=== PATIENT | male | born 1975 | race Caucasian/White ===

== ENCOUNTER → 2024-02-03 | Outpatient (CLI) | payer MEDICAID, SELFPAY ==
--- NOTE | 2024-02-03 10:18 | MRI_ITS ---
STUDY: MRI RIGHT KNEE REASON FOR EXAM: Male, 48 years old. Right knee pain for 6 months. TECHNIQUE: Standardized fat and water weighted pulse sequences were obtained in all 3 orthogonal planes. COMPARISON: None. FINDINGS: There is a well-defined lobulated bone lesion in the epiphysis/metaphysis of the lateral tibial plateau, with fairly homogeneous intermediate T1 and high T2 signal, overall measuring 4.1 cm AP, 5.7 cm transverse, and 4.9 cm craniocaudad. There is cortical thinning of the posterolateral aspect of the tibial metaphysis, but no definite cortical breakthrough or pathologic fracture. Normal medial meniscus. Normal hyaline cartilage of the medial femorotibial compartment. Normal medial femoral condyle and tibial plateau. Normal medial collateral ligamentous complex (MCL). Normal distal semimembranosus, gracilis and semitendinosus tendons. Normal lateral meniscus. Normal hyaline cartilage of the lateral femorotibial compartment. Normal lateral femoral condyle. Normal proximal tibiofibular articulation. Normal lateral collateral (fibular) ligament. Normal popliteus tendon. Normal biceps femoris tendon. Normal anterior cruciate ligament (ACL). Normal posterior cruciate ligament (PCL). Normal congruent patellofemoral articulation. Normal hyaline cartilage of the patellofemoral compartment. Normal medial and lateral patellar retinaculum. Normal quadriceps tendon. Normal patellar tendon. Normal Hoffa''s fat pad. There is a tiny joint effusion. There is a tiny popliteal cyst. There is minimal subcutaneous soft tissue edema along the anterior aspect of the knee. MRI/Lower Ext Joint Only (Routine) IMPRESSION: Nonspecific 4.1 x 5.7 x 4.9 cm well-defined lobulated bone lesion in the epiphysis/metaphysis of the lateral tibial plateau. Cortical thinning, but no definite cortical breakthrough or pathologic fracture. The differential diagnosis includes but is not limited to: Giant cell tumor, chondromyxoid fibroma, chondrosarcoma, osteosarcoma, and metastasis/multiple myeloma. Biopsy/excision would be required to establish the definitive histological diagnosis. Tiny joint effusion with a tiny popliteal cyst. Minimal subcutaneous soft tissue edema along the anterior aspect of the knee. No discrete meniscal tear or acute ligamentous injury. Electronically Signed: Niles Rehman MD at 13:49 EDT ,
== END | disposition home or self-care (01) ==
PROVIDERS: PCP Family Medicine; Referring Provider Family Medicine; Visit Provider Family Medicine
DX: M25.561 Pain in right knee (principal)
CPT/HCPCS: 73721

== ENCOUNTER 2024-02-09 18:13 | Emergency (ER) | payer MEDICAID, SELFPAY ==
[2024-02-09 18:13] VITALS: BP 118/80; PULSE 77; RESP 18; TEMP 36.1; O2SAT 95
[2024-02-09 18:15] VITALS: BMI 33.8
--- NOTE | 2024-02-09 19:08 | CT_ITS ---
INDICATION: LUQ pain EXAMINATION: CT Abdomen And Pelvis W/ Contrast Injection TECHNIQUE: Helically acquired images were obtained of the abdomen and pelvis after IV contrast. A radiation dose optimization technique was used for this scan. IV Contrast dosage and agent: IV 100mL [id number] Oral contrast: None. COMPARISON: None. FINDINGS: Visualized lung bases: Unremarkable Liver: 1.2 cm pulmonary nodule in the right lung base. Gallbladder: Unremarkable Spleen: Unremarkable Pancreas: Unremarkable Adrenal Glands: Unremarkable Kidneys: Unremarkable Vasculature: Moderate aortoiliac atherosclerotic disease. GI Tract: Scattered colonic diverticula. Circumferential wall thickening of several loops of small bowel. Lymphadenopathy: None Peritoneum: No ascites. Bladder: Unremarkable Reproductive organs: Unremarkable Bones/Soft tissues: There are diffuse degenerative changes of the spine. Age-indeterminate mild compression fracture of L1. CT/Abdomen/Pelvis W IV Cont ONLY IMPRESSION: Findings suspicious for infectious versus inflammatory enterocolitis. 1.2 cm pulmonary nodule in the right lung base. Recommend follow-up chest CT in 3 months, PET/CT and/or biopsy. Age-indeterminate mild compression fracture of L1. Electronically Signed: Zain Arevalo MD at 20:25 EDT ,
--- NOTE | 2024-02-09 19:08 | EDS_ITS ---
HPI History of Present Illness Chief Complaint: Abd Pain Informant: patient and mental health staff Narrative Narrative: 48-year-old male from [facility] presenting to the emergency room with left upper abdominal pain. Patient states symptoms began this morning. It is worse with touch and movement. He had a bowel movement last night. He denies any urinary symptoms or fever. He notes a chronic cough from smoking. He denies any known trauma. He has been eating normally but missed his last meal because he did not want to eat something that would maybe make the pain worse. He believes he feels a lump in the area that hurts. [facility] Medical History (Updated 02/09/24 @ 20:[address] Nav Amanda DO) Ataxic gait PVD (peripheral vascular disease) COPD (chronic obstructive pulmonary disease) Epilepsy Schizoaffective disorder CVA (cerebral vascular accident) TIA (transient ischemic attack) Alcohol abuse Hyperlipidemia Major depression Anxiety HTN (hypertension) Encephalopathy Dementia associated with alcoholism Home Medications ?Medication ?Instructions ?Recorded ?Last Taken ?Type ondansetron 4 mg disintegrating 4 mg PO Q6H PRN PRN Nausea #15 tabs 02/09/24 Unknown Rx tablet Allergy/AdvReac Type Severity Reaction Status Date / Time No Known Allergies Allergy Verified 02/09/24 18:15 Social History Smoking Status: Current every day smoker tobacco type: cigarettes ROS ROS ED Constitutional Constitutional ED: Denies chills, fever(s) or weight loss Eyes Eyes: Denies change in vision or diplopia ENT ENT ED: Denies ear pain, rhinorrhea or sore throat Cardiovascular Cardiovascular: Denies chest pain, orthopnea, palpitations or racing heartbeat Respiratory/Chest Respiratory/Chest: Reports other Details: Chronic cough no change ; Denies dyspnea or orthopnea Gastrointestinal Gastrointestinal: Reports abdominal pain; Denies constipation, diarrhea, nausea or vomiting Genitourinary Genitourinary ED: Denies dysuria, hematuria or urinary frequency Musculoskeletal Musculoskeletal: Denies arthralgias or myalgias Integumentary Denies abscess or rash Neurologic Neurologic: Denies headache(s) or weakness Psychiatric Psychiatric: Denies anxiety, depression, suicidal ideation or suicidal thoughts Endocrine Endocrinology: Denies polydipsia, polyphagia or polyuria Allergic/Immunologic Allergic/Immunologic ED: Denies mouth swelling, tongue swelling or urticaria EXAM Physical Exam Const Vital Signs: 02/09/24 18:13 02/09/24 20:13 Temperature 97 F L Temperature Source Temporal Pulse Rate 77 69 Respiratory Rate 18 18 Blood Pressure 118/80 142/79 H Blood Pressure Mean 92 100 Pulse Ox 95 96 Oxygen Delivery Method Room Air Room Air Positive well nourished and well developed General Appearance ED: well developed HEENT Reports normocephalic, head/scalp atraumatic and moist mucous membranes Eyes PERRL and EOMs intact bilaterally Neck no lymphadenopathy, supple and no JVD Chest Wall Chest Narrative: Patient is tender to palpation not in the left upper quadrant of the abdomen but more over the lower lateral ribs on the left side. I do not appreciate ecchymosis or rash. No crepitance or subcutaneous emphysema. Resp normal respiratory effort and clear to auscultation bilaterally Cardio regular rate, regular rhythm and no murmurs GI normal to inspection, nondistended, normoactive bowel sounds and non-tender Palpation: soft Back/Spine no CVA tenderness and normal ROM Extremity normal to inspection General Extremety ED: Negative for edema General Extremity: Negative for edema Neuro oriented x3 and CN's II-XII intact bilaterally Sensorium / Orientation: alert Motor Exam: strength 5/5 throughout Psych mental status grossly normal Mood & Affect: Negative for depressed or tearful Skin no rashes or lesions noted and no wounds MDM MDM MDM Narrative Medical decision making narrative: Differential diagnosis would include but not limited to pneumonia splenic infarct renal infarct rib injury rib colitis gastroenteritis White count 13.4 hemoglobin 15.2 and a platelet count of 369. Creatinine 1.03 BUN is [address] of the abdomen/pelvis was and some bowel. I do not see anything obvious to fully explain his pain. He can write for some Zofran should he develop vomiting. He may be experiencing diarrhea given the loops of small bowel. History & Record Review Discussion w/independent historian: Patient and Other (long-term staff) Lab Data Attestation: I reviewed the patient's lab results. Labs: Laboratory Results - last 24 hr 02/09/24 18:45 WBC 13.4 H RBC 4.88 Hgb 15.2 Hct 46.3 MCV 94.9 H MCH 31.1 MCHC 32.8 RDW Std Deviation 45.7 H RDW Coeff of Naveed 13.0 Plt Count 369 MPV 10.6 Immature Gran % (Auto) 0.600 Neut % (Auto) 64.2 Lymph % (Auto) 22.5 [place] % (Auto) 9.8 Eos % (Auto) 2.5 Baso % (Auto) 0.4 Absolute Neuts (auto) 8.6 H Absolute Lymphs (auto) 3.02 Nucleated RBC % 0 Sodium 139 Potassium 4.1 Chloride 106 Carbon Dioxide 24.0 Anion Gap 9 BUN 16 Creatinine 1.03 Estim Creat Clear Calc 86.50 Est GFR (MDRD) Af Amer 98 Est GFR (MDRD) Non-Af 81 BUN/Creatinine Ratio 15.5 Glucose 96 Calcium 9.5 Radiography Diagnostic Testing: Clinical Impression(s) from Imaging Studies Abdomen/Pelvis CT 02/09/24 19:08 IMPRESSION: Findings suspicious for infectious versus inflammatory enterocolitis. 1.2 cm pulmonary nodule in the right lung base. Recommend follow-up chest CT in 3 months, PET/CT and/or biopsy. Age-indeterminate mild compression fracture of L1. Electronically Signed: Zain Arevalo MD at 20:25 EDT , Discharge Plan Triage Chief Complaint: Abd Pain ED Provider: Nav Amanda Dx/Rx/DC Orders Clinical Impression: Abdominal pain Instructions: ED Gastroenteritis, Viral (Adult) Prescriptions: New ondansetron 4 mg tablet,disintegrating 4 mg PO Q6H PRN PRN (Reason: Nausea) Qty: 15 0RF Primary Care Provider: All Ryder Referrals: All yRder MD [Primary Care Provider] - 3-5 Days if not improving Print Language: Austrian Disposition Disposition: Home, Self Care
[2024-02-09 19:35] LABS: Absolute Lymphocyte Count 3.02 X10^3/uL (0.83-4.51); Absolute Neutrophil Count 8.6 X10^3/uL (2.0-7.7); Basophil# 0.06 X10^3/uL; Basophil% 0.4 % (0-1); Eosinophil# 0.34 X10^3/uL; Eosinophils% 2.5 % (0-5); Hematocrit 46.3 % (40-54); Hemoglobin 15.2 g/dL (13.0-16.5); Lymphocyte # 3.02 X10^3/ul (0.83-4.51); Lymphocyte % 22.5 % (19-41); Mean Corp Hgb Conc 32.8 g/dL (32-36); Mean Corpuscular Hgb 31.1 pg (27.0-32.0); Mean Corpuscular Volume 94.9 fL (80-94); Mean Platelet Vol. 10.6 fl (6.2-12.0); Monocyte# 1.31 X10^3/uL; Monocyte% 9.8 % (0-10); NRBC Flagged by Analyzer 0 % (0-5); Neutrophil # 8.62 X10^3/uL (2.7-7.7); Neutrophil % 64.2 % (47-70); Platelet Count 369 K/mm3 (150-450); RBC Distribution Width SD 45.7 fl (35.1-43.9); Red Blood Count 4.88 M/mm3 (4.6-6.2); White Blood Count 13.4 K/mm3 (4.4-11.0)
[2024-02-09 19:40] LABS: Anion Gap 9 (5-15); BUN 16 mg/dL (7-18); BUN/Creat Ratio 15.5 RATIO (10-20); Calcium,Total 9.5 mg/dL (8.5-10.1); Chloride 106 mmol/L (98-107); Creatinine, Serum 1.03 mg/dL (0.70-1.30); EST Glomerular Filtration Rate 81 mL/min (>60); Est Glom Filt Rate - Afr Amer 98 mL/min (>60); Glucose 96 mg/dL (74-106); Potassium 4.1 mmol/L (3.5-5.1); Sodium Level 139 mmol/L (136-145)
[2024-02-09 20:13] VITALS: BP 142/79; PULSE 69; RESP 18; O2SAT 96
[2024-02-09 20:46] LABS: Mucous, Urine 0 SEEN /hpf (<or=2+); Red Blood Cells-Urine 0 SEEN /hpf (0-5); Squamous Epithelial Cells - UA 0 SEEN /hpf (0-5); White Blood Cells 0 SEEN /hpf (0-5)
[2024-02-09 20:59] VITALS: BP 142/79; PULSE 69; RESP 16; TEMP 36.5; O2SAT 96
[2024-02-09 21:02] LABS: Color, Urine Yellow (Yellow); Glucose, Dipstick Normal (Normal); Ketone-Dipstick Negative (Negative); Leukocyte Esterase-Dipstick Negative /ul (Negative); Nitrite-Dipstick Negative (Negative); Occult Blood-Urine Negative /ul (Negative); Protein-Dipstick Negative (Negative); Urine Bilirubin Dipstick Negative (Negative); Urine Clarity Sl. Cloudy (Clear); Urine Urobilinogen Normal (Normal)
[2024-02-09 21:20] LABS: Amorphous Sediment 2+; Bacteria 1+ /hpf (None Seen)
[2024-02-09 22:00] VITALS: BP 141/83; PULSE 73; RESP 16; O2SAT 93
[2024-02-10] VITALS: BP 138/77; PULSE 66; RESP 16; O2SAT 98
== END 2024-02-10 00:56 | disposition home or self-care (01) ==
PROVIDERS: Emergency Provider Emergency Medicine; PCP Family Medicine; Visit Provider Emergency Medicine
DX: R10.12 Left upper quadrant pain (principal); J44.9 Chronic obstructive pulmonary disease, unspecified; J41.0 Simple chronic bronchitis; R91.1 Solitary pulmonary nodule; K63.89 Other specified diseases of intestine; F17.210 Nicotine dependence, cigarettes, uncomplicated
CPT/HCPCS: 74177; 80048; 81001; 85025; 99283; Q9967; A4216

== ENCOUNTER → 2024-05-01 | Outpatient (CLI) | payer MEDICARE, MEDICAID, SELFPAY | END | disposition home or self-care (01) | PROVIDERS: PCP Family Medicine; Referring Provider Family Medicine; Visit Provider Family Medicine | DX: R91.1 Solitary pulmonary nodule (principal) | CPT/HCPCS: 78815; A9552 ==

== ENCOUNTER → 2024-11-07 | Outpatient (CLI) | payer MEDICARE, MEDICAID, SELFPAY ==
--- NOTE | 2024-11-07 06:51 | CT_ITS ---
PROCEDURE: CHEST WITHOUT CONTRAST 11/07/2024 REASON FOR EXAM: LUNG NODULE TECHNIQUE: Chest CT without contrast. Coronal and Sagittal reconstruction series were provided. One or more dose reduction techniques were used (e.g., Automated exposure control, adjustment of the mA and/or kV according to patient size, use of iterative reconstruction technique RADIATION DOSE SUMMARY: CTDlvol: 13.64 mGy DLP: 497.5 mGycm COMPARISON: Prior CT scan of the abdomen and pelvis dated February 09, 2024. FINDINGS: Hardware: None Lymph nodes: Small benign-appearing bilateral axillary lymph nodes. Small benign-appearing mediastinal lymph nodes. Heart and Vasculature: The heart is not enlarged. Atherosclerotic calcifications of the thoracic aorta. Thoracic aorta and pulmonary arteries have normal contours; noncontrast technique limits evaluation. Coronary Artery Calcifications: Present Lungs and Airways: There is a 1.2 cm well-defined nodule in the posterior aspect of the right lower lobe as seen on axial image number 127. This is unchanged as compared to prior CT scan of the abdomen and pelvis. Minimal linear scarring in the anterior aspect of the lingular segment of the left upper lobe. Pleura: No pleural effusion. Upper Abdomen: 1.4 cm hypodense nodule in the crux of the left adrenal gland suggestive of a small adrenal adenoma. This is unchanged. Bones: Degenerative changes of the thoracic spine. CT/Chest without Contrast IMPRESSION: Coronary artery calcification (CAC) is is present Stable 1.2 cm well-defined noncalcified nodule in the posterior aspect of the r ight lower lobe as described. Stable 1.4 cm hypodense nodule in the crux of the left adrenal gland suggestive of a small adenoma. Reading Location: [place] [id number]
--- OUTSIDE RECORDS SUMMARY | 2024-11-07 06:54 | XMS RPT_ITS | CCD ---
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 0.5mg/3ml (DUONEB) nebulizer soln 3 mL alginic acid 200 mg / calcium carbonate 80 mg / magnesium trisilicate 20 mg / sodium bicarbonate 70 mg oral tablet (1 source) Start: 04-26-2020 take 1000 mg by mouth every four hours as needed for gastroesophageal reflux disease 1,000 mg, Oral, EVERY 4 HOURS PRN, Heartburn, Starting 04/26/20 at 1125, Until Discontinued amitriptyline hydrochloride 75 mg oral tablet (20 sources) Tricyclic Antidepressant Start: 05-26-2021 End: 07-05-2021 take 75 mg by mouth once daily 75 mg, Oral, NIGHTLY, First dose on Tue06/24/21 at 2200, Until Discontinued Start: 10-31-2020 take 1 tablet by jael once daily amitriptyline (ELAVIL) 75 MG tablet Indications: Insomnia, unspecified type TAKE 1 TABLET BY MOUTH NIGHTLY. 30 tablet 6 10/31/2020 Active Start: 09-28-2020 amitriptyline (ELAVIL) tablet 75 mg Start: 03-20-2020 End: 09-27-2020 take 75 mg by mouth once daily 75 mg, Oral, NIGHTLY, F irst dose on 09/20/20 at 0115, Until Discontinued Start: 10-25-2019 take 1 tablet by jael th once daily amitriptyline (ELAVIL) 75 MG tablet Indications: Insomnia, unspecified type Take 1 tablet by mouth nightly. 30 tablet 6 10/25/2019 Active Start: 03-29-2019 take 1 tablet by jael th once daily amitriptyline (ELAVIL) 75 MG tablet Indications: Insomnia, unspecified type Take 1 tablet by mouth nightly. 30 tablet 6 03/29/2019 Active atorvastatin 80 mg oral tablet (20 sources) HMG-CoA Reductase Inhibitor Start: 06-19-2024 End: 06-21-2024 take 80 mg by mouth once daily 80 mg, Oral, Daily, First dose on Tue06/19/24 at 2100 Start: 06-24-2021 End: 07-05-2021 take 80 mg by mouth once daily 80 mg, Oral, NIGHTLY, F irst dose on Tue06/24/21 at 2200, Until Discontinued Start: 05-15-2019 End: 09-27-2020 take 80 mg by mouth once daily 80 mg, Oral, NIGHTLY, F irst dose on Tue02/17/21 at 0041, Until Discontinued Start: 05-14-2019 End: 05-15-2019 atorvastatin (LIPITOR) table t 40 mg bacitracin zinc 0.5 unt/mg t opical ointment (1 source) Start: 05-01-2020 End: 05-01-2020 bacitracin ointment 1 packet Start: 05-01-2020 End: 05-01-2020 bacitracin ointment 1 packet calcium carbonate 600 mg / cholecalciferol 0.01 mg oral tablet (1 source) Vitamin D Start: 09-21-2020 End: 09-27-2020 Calcium carbonate-vitamin D 600-400 MG-UNIT 1 tablet calcium chloride 0.001 meq/ml / glucose 50 mg/ml / potassium chloride 0.004 meq/ml / sodium chloride 0.103 meq/ml / sodium lactate 0.028 meq/ml injectable solution (1 source) Start: 06-28-2021 End: 06-28-2021 Intravenous, at 50 mL/hr, CONTINUOUS, Starting on Tue06/28/21 at 0745, Until Tue06/28/21 at 1153 calcium chloride 0.0014 meq/ml / potassium chloride 0.004 meq/ml / sodium chloride 0.103 meq/ml / sodium lactate 0.028 meq/ml injectable solution (2 sources) Start: 06-29-2021 End: 07-05-2021 Intravenous, at 100 mL/hr, CONTINUOUS, Starting on Tue06/29/21 at 0745, Until Tue07/05/21 at 0338 Start: 09-26-2020 End: 09-28-2020 lactated ringers infusion ceFAZolin 2000 mg injection (3 sources) Cephalosporin Antibacterial Start: 06-20-2024 End: 06-21-2024 take 2000 mg intravenously every eight hours 2,000 mg, IntraVENous, Administer over 30 Minutes, Every 8 hours, First dose on Tue06/20/24 at 1415, For 24 hours, Phase II/On Unit, premix bag, Suspected Indication (Select all that apply): Surgical Prophylaxis Start: 06-20-2024 End: 06-20-2024 IntraVENous, As needed, Star ting on Tue06/20/24 at 1013, Anesthesia Intraprocedure clopidogrel 75 mg oral tablet (20 sources) [id number] Platelet Inhibitor Start: 05-18-2019 End: 07-05-2021 take 75 mg by mouth once daily 75 mg, Oral, DAILY, First dose on Maye 06/25/21 at 0900, Until Discontinued 1 ml dexamethasone phosphate 10 mg/ml injection (1 source) Corticosteroid Start: 06-20-2024 End: 06-20-2024 IntraVENous, As needed, Starting on Tue06/20/24 at 1000, Anesthesia Intraprocedure dexAMETHasone-bupivac rogers-epinephrine (TAP) syringe (1 source) Start: 06-20-2024 End: 06-20-2024 Injection, Once PRN Procedure, Starting on Tue06/20/24 at 0950, For 1 dose, Anesthesia Intraprocedure dexmedeTOMIDine HCl in NaCl (Precedex) injection (1 source) Start: 06-20-2024 End: 06-20-2024 IntraVENous, As needed, Starting on Tue06/20/24 at 1000, Anesthesia Intraprocedure docusate sodium 50 mg / sennosides, shelter 8.6 mg oral tablet (1 source) Start: 06-24-2021 End: 07-05-2021 take 1 tablet by mouth twice daily 1 tablet, Oral, TWO TIMES A DAY, First dose on Tue06/24/21 at 1929, Until Discontinued Drug or medicament (substance) (6 sources) Start: 06-29-2021 End: 07-05-2021 4 oz, Oral, 3 TIMES PER DAY (DIETARY), First dose on Tue06/29/21 at 1400, Until Discontinued Flavor not specified Start: 06-26-2021 End: 06-27-2021 2,000 mg, Intravenous, Admin ister over 30 Minutes, First dose (after last modification) on Tue06/26/21 at 1800, EVERY 12 HOURS SCHEDULED (2 times per day), 6 doses, Last dose on Tue06/29/21 at 0600, Indications: Pneumonia, Septic Shock Start: 06-26-2021 End: 07-05-2021 1 each, Other, DAILY PRN, Fo r electrolyte abnormalities, Starting on Tue06/26/21 at 0902, Until Tue07/05/21 at 0338 For Potassium level <=3.9 or Magnesium level <=2.0, please use Order Set #100 to order medications and repeat labs. Start: 06-25-2021 End: 06-26-2021 1,000 mg, Intravenous, Admin ister over 1 Hours, EVERY 12 HOURS SCHEDULED (2 times per day), First dose (after last modification) on Tue06/25/21 at 1800, Until Discontinued, Indications: Pneumonia Start: 06-25-2021 End: 06-26-2021 2,000 mg, Intravenous, Admin ister over 30 Minutes, First dose (after last reorder) on Tue06/25/21 at 0600, EVERY 8 HOURS SCHEDULED (3 times per day), Until Discontinued, Indications: Pneumonia, Septic Shock Start: 06-24-2021 End: 06-24-2021 2,000 mg, Intravenous, Admin ister over 30 Minutes, On Tue06/24/21 at 1842, ONCE, 1 dose, Indications: Septic Shock 2 ml enalaprilat 1.25 mg/ml injection (1 source) Angiotensin Converting Enzyme Inhibitor Start: 09-27-2020 End: 09-28-2020 enalaprilat (VASOTEC) injection 2.5 mg enalaprilat (VASOTEC) 2.5 mg in dextrose 5% 50 mL IVPB (1 source) Start: 09-27-2020 End: 09-27-2020 enalaprilat (VASOTEC) 2.5 mg in dextrose 5% 50 mL IVPB ergocalciferol 96596 unt oral capsule (6 sources) Provitamin D2 Compound Start: 05-17-2019 50,000 Units, Oral, EVERY 7 DAYS, First dose on Tue05/17/19 at 0900, Until Discontinued Start: 12-05-2018 Vitamin D, Erg ocalciferol, 45068 units CAPS Indications: Vitamin D deficiency Take 1 capsule by mouth every 7 days. 12 capsule 0 12/05/2018 Active 10 ml esmolol hydrochloride 10 mg/ml injection (1 source) beta-Adrenergic Richard Start: 06-20-2024 End: 06-20-2024 IntraVENous, As needed, Starting on Tue06/20/24 at 1000, Anesthesia Intraprocedure 20 ml etomidate 2 mg/ml injection (1 source) General Anesthetic Start: 06-24-2021 End: 06-24-2021 take 1 dose intravenously once 20 mg, IV Push, ONCE, 1 dose, On Tue06/24/21 at 1753 Caution: This medication looks and/or sounds like another medication. fenofibrate 160 mg oral tablet (10 sources) Peroxisome Proliferator Receptor alpha Agonist Start: 06-19-2024 End: 06-21-2024 160 mg, Oral, Daily, First dose on Tue06/19/24 at 1500, Substituted for Fenofibrate (Non-Formulary Dose). take 1 tablet by mouth once matthew y fenofibrate (Tricor) 145 MG tablet Take 145 mg by mouth daily. Active folic acid 0.4 mg oral tablet (20 sources) Start: 06-27-2021 End: 07-05-2021 take 400 ug by mouth once daily 400 mcg, Oral, DAILY, First dose (after last modification) on Tue07/01/21 at 0900, Until Discontinued Start: 06-25-2021 End: 06-26-2021 take 1 mg by mouth once daily 1 mg, Oral, DAILY, First dose on Tue06/25/21 at 0900, Until Discontinued Start: 09-20-2020 End: 09-27-2020 take 1000 ug by mouth once daily 1,000 mcg, Oral, DAILY, First dose on Tue09/20/20 at 0900, Until Discontinued Start: 04-26-2020 End: 04-30-2020 folic acid (FOLVITE) tablet 400 mcg Start: 05-14-2019 take 1000 ug by mout h once daily 1,000 mcg, Oral, DAILY, First dose on Tue05/14/19 at 1115, Until Discontinued Start: 01-30-2019 End: 09-30-2020 take 1 mg by mouth once daily 1 mg, Oral, DAILY, First dose on Tue02/21/21 at 0900, Until Discontinued folic acid (VITAMIN B9) 1 mg in sodium chloride 0.9 % 10 mL IV syringe (2 sources) Start: 11-16-2020 End: 11-19-2020 1 mg, Intravenous, Administe r over 1 Minutes, First dose on Tue11/16/20 at 0900, DAILY, 5 doses, Last dose on Tue11/20/20 at 0900 Administer over at least 1 minute Start: 09-27-2020 End: 09-28-2020 folic acid (VITAMIN B9) 1 mg in sodium chloride 0.9 % 10 mL IV syringe gabapentin 300 mg oral capsule (20 sources) Anti-epileptic Agent Start: 06-19-2024 End: 06-21-2024 take 300 mg by mouth once daily 300 mg, Oral, Nightly, First dose on Tue06/19/24 at 2100 Start: 05-26-2021 End: 07-04-2021 Start: 12-02-2020 take 300 mg by mouth three times daily 300 mg, Oral, 3 TIMES DAILY, First dose on Tue02/17/21 at 0041, Until Discontinued Start: 11-16-2020 take 300 mg by mouth once matthew y 300 mg, Oral, DAILY, First dose on Tue11/16/20 at 0900, Until Discontinued Start: 09-20-2020 End: 09-27-2020 take 300 mg by mouth once daily 300 mg, Oral, DAILY, F irst dose on 09/20/20 at 0900, Until Discontinued Start: 09-04-2020 take 1 capsule by [facility] three times daily gabapentin (NEURONTIN) 300 MG capsule Indications: Lumbar radicular pain TAKE 1 CAPSULE BY MOUTH 3 TIMES DAILY. 90 capsule 2 09/04/2020 Active Start: 10-25-2019 End: 05-01-2020 take 300 mg by mouth three times daily 300 mg, Oral, 3 TIMES DAILY, First dose on 04/26/20 at 1400, Until Discontinued Start: 05-01-2019 End: 07-30-2019 take 1 capsule by mouth three times daily gabapentin (NEURONTIN) 300 MG capsule Indications: Lumbar radicular pain TAKE 1 CAPSULE BY MOUTH 3 TIMES DAILY FOR 90 DAYS. 90 capsule 2 05/01/2019 07/30/2019 Active 150 ml glucose 50 mg/ml injection (4 sources) Start: 06-27-2021 End: 07-05-2021 Intravenous, at 75 mL/hr, CONTINUOUS PRN, [facility] with KCl for the duration of the KCl infusion., Starting on Maye 07/02/21 at 0753, Until 07/05/21 at 0338 [facility] with KCl for the duration of the KCl infusion. Start: 06-27-2021 End: 06-27-2021 50 mL, Intravenous, ONCE, 1 dose, On 06/27/21 at 0830 High Alert: Significant harm may occur when used in error. 250 ml glucose 50 mg/ml / sodium chloride 4.5 mg/ml injection (1 source) Start: 02-16-2021 End: 02-20-2021 dextrose 5 %-0.45 % sodium chloride infusion 1 ml heparin sodium, porcine 5000 unt/ml prefilled syringe (4 sources) Unfractionated Heparin, Anti-coagulant Start: 06-24-2021 End: 07-05-2021 inject 1 dose by subcutaneous injection twice daily 5,000 Units, Subcutaneous, EVERY 12 HOURS SCHEDULED (2 times per day), First dose on Tue06/24/21 at 1929, Until Discontinued Start: 05-14-2019 End: 05-14-2019 Heparin (porcine) injection 3,726 Units Start: 05-14-2019 End: 05-14-2019 Heparin (porcine) injection 3,726 Units Start: 05-14-2019 End: 05-15-2019 heparin infusion 50 units/mL in dextrose 5% 1 ml hydrALAZINE hydrochloride 20 mg/ml injection (2 sources) Arteriolar Vasodilator Start: 06-26-2021 End: 07-05-2021 10 mg, Intravenous, EVERY 6 HOURS PRN, High Blood Pressure (specify):, SBP > 160, Starting on Tue06/26/21 at 1812, Until 07/05/21 at 0338 Caution: This medication looks and/or sounds like another medication. Start: 11-16-2020 hydrALAZINE (A PRESOLINE) injection 10 mg hydroCHLOROthiazide 12.5 mg / lisinopril 20 mg oral tablet (15 sources) Thiazide Diuretic, Angiotensin Converting Enzyme Inhibitor Start: 05-27-2021 End: 07-04-2021 Start: 06-11-2020 take 2 tablets by mouth once daily lisinopril-hydrochlorothiazide (PRINZIDE,ZESTORETIC) 20-12.5 MG per tablet Indications: Essential hypertension TAKE 2 TABLETS BY MOUTH DAILY. 60 tablet 2 01/06/2021 Active Start: 11-29-2019 take 2 tablets by mouth once daily lisinopril-hydrochlorothiazide (PRINZIDE,ZESTORETIC) 20-12.5 MG per tablet Indications: Essential hypertension TAKE 2 TABLETS BY MOUTH DAILY. 60 tablet 6 11/29/2019 Active Start: 10-25-2019 take 2 tablets by mouth once daily lisinopril-hydrochlorothiazide (PRINZIDE,ZESTORETIC) 20-12.5 MG per tablet Indications: Essential hypertension Take 2 tablets by mouth daily. 60 tablet 6 10/25/2019 Active Start: 03-29-2019 take 2 tablets by mouth once daily lisinopril-hydrochlorothiazide (PRINZIDE,ZESTORETIC) 20-12.5 MG per tablet Indications: Essential hypertension Take 2 tablets by mouth daily. 60 tablet 6 03/29/2019 Active 1 ml HYDROmorphone hydrochloride 2 mg/ml cartridge (1 source) Opioid Agonist Start: 06-20-2024 End: 06-20-2024 IntraVENous, As needed, Starting on Tue06/20/24 at 1041, Anesthesia Intraprocedure HYDROmorphone (Dilaudid) injection 0.25 mg (2 sources) Start: 06-19-2024 End: 06-21-2024 take 0.25 mg intravenously every four hours as needed for pain HYDROmorphone (Dilaudid) injection 0.25 mg hydrOXYzine hydrochloride 25 mg oral tablet (12 sources) Antihistamine Start: 06-27-2021 End: 07-05-2021 50 mg, Oral, EVERY 6 HOURS PRN, Anxiety, for MILD anxiety- patient reported anxiety 1-4, Starting on 06/27/21 at 0804, Until 07/05/21 at 0338 Start: 12-28-2020 50 mg, Oral, E VERY 6 HOURS PRN, Anxiety, for MILD anxiety- patient reported anxiety 1-4, Starting on 12/28/20 at 2209, Until Discontinued Start: 11-16-2020 take 50 mg by mouth every six hours as needed for anxiety 50 mg, Oral, EVERY 6 HOURS PRN, Anxiety, Starting on 11/16/20 at 0130, Until Discontinued Start: 09-20-2020 hydrOXYzine (A TARAX) tablet 50 mg Start: 04-30-2020 End: 07-04-2021 Start: 04-26-2020 hydrOXYzine (A TARAX) tablet 50 mg ketamine 10 mg/ml injectable solution (1 source) General Anesthetic Start: 06-20-2024 End: 06-20-2024 IntraVENous, As needed, Starting on Tue06/20/24 at 1000, Anesthesia Intraprocedure 1 ml ketorolac tromethamine 15 mg/ml cartridge (1 source) Nonsteroidal Anti-inflammatory Drug, Cyclooxygenase Inhibitor Start: 06-20-2024 End: 06-20-2024 IntraVENous, As needed, Starting on Tue06/20/24 at 1213, Anesthesia Intraprocedure levETIRAcetam 750 mg oral tablet (19 sources) Start: 06-19-2024 End: 06-21-2024 take 750 mg by mouth twice daily 750 mg, Oral, 2 times daily, First dose on Tue06/19/24 at 2100 Start: 06-24-2021 End: 06-26-2021 take 750 mg by mouth twice daily 750 mg, Oral, TWO TIMES A DAY, First dose on Tue06/24/21 at 1929, Until Discontinued Caution: Do not crush or chew due to taste. Start: 05-27-2021 End: 07-05-2021 take 1 dose by mouth twice daily 750 mg, Oral, EVERY 12 HOURS SCHEDULED (2 times per day), First dose on Tue06/30/21 at 1800, Until Discontinued Caution: Do not crush or chew due to taste. Start: 10-21-2020 take 500 mg by mouth twice daily 500 mg, Oral, TWO TIMES A DAY, First dose on Tue02/17/21 at 0600, Until Discontinued Caution: Do not crush or chew due to taste. 10 ml lidocaine hydrochloride 20 mg/ml injection (4 sources) Antiarrhythmic, Amide Local Anesthetic Start: 06-20-2024 End: 06-20-2024 IntraVENous, As needed, Starting on Tue06/20/24 at 1000, Anesthesia Intraprocedure Start: 06-19-2024 End: 06-21-2024 apply 1 dose topically once daily, then apply 1 dose topically every twelve hours 1 patch, Topical, Administer over 12 Hours, Daily, First dose on Tue06/19/24 at 1515, Apply patch to affected area. Patch may remain in place for up to 12 hours in any 24 hour period. Start: 09-20-2020 Lidocaine Visc ous HCl (XYLOCAINE) 2 % mouth solution 5 mL lisinopril 20 mg oral tablet (6 sources) Angiotensin Converting Enzyme Inhibitor Start: 06-27-2021 End: 07-05-2021 take 20 mg by mouth once daily before lunch 20 mg, Oral, DAILY BEFORE LUNCH, First dose on Tue06/27/21 at 1100, Until Discontinued Caution: This medication looks and/or sounds like another medication. Start: 12-29-2020 lisinopril (HI INIVIL,ZESTRIL) tablet 40 mg Start: 11-16-2020 lisinopril (HI INIVIL,ZESTRIL) tablet 40 mg Start: 09-28-2020 lisinopril (HI INIVIL,ZESTRIL) tablet 20 mg Start: 04-26-2020 lisinopril (HI INIVIL,ZESTRIL) tablet 40 mg Start: 05-14-2019 lisinopril (HI INIVIL,ZESTRIL) tablet 40 mg LOCM iohexol (OMNIPAQUE 350MG/ML) injection 75 mL (1 source) Start: 05-14-2019 End: 05-14-2019 LOCM iohexol (OMNIPAQUE 350MG/ML) injection 75 mL 1 ml LORazepam 2 mg/ml injection (17 sources) Benzodiazepine Start: 06-28-2021 End: 06-28-2021 take 1 dose intravenously once 1 mg, IV Push, ONCE, 1 dose, On 06/28/21 at 1815 Caution: This medication looks and/or sounds like another medication.&nbsp ; For IV use: dilute in equal volume of NaCl 0.9% or Dextrose 5% Start: 02-16-2021 End: 02-16-2021 LORazepam injection 2-4 mg Start: 02-16-2021 LORazepam (ATI VAN) tablet 2-4 mg Start: 12-28-2020 LORazepam (ATI VAN) tablet 2-4 mg Start: 11-16-2020 End: 11-16-2020 LORazepam injection 1 mg Start: 11-16-2020 LORazepam (ATI VAN) tablet 2-4 mg Start: 09-20-2020 LORazepam inje ction 2 mg Start: 09-20-2020 LORazepam (ATI VAN) tablet 2-4 mg Start: 04-27-2020 End: 04-27-2020 LORazepam injection 2 mg LORazepam (Ativa n) 1 MG tablet Take 1 mg by mouth. Active m.v.i. adult 10 mL, thiamine (VITAMIN B1) 100 mg, folic acid (VITAMIN B9) 1 mg in sodium chloride 0.9 % 1,000 mL infusion (BANANA BAG) (6 sources) Start: 02-17-2021 End: 02-16-2021 m.v.i. adult 10 mL, thiamine (VITAMIN B1) 100 mg, folic acid (VITAMIN B9) 1 mg in sodium chloride 0.9 % 1,000 mL infusion (BANANA BAG) Start: 02-16-2021 End: 02-20-2021 m.v.i. adult 10 mL, thiamine (VITAMIN B1) 100 mg, folic acid (VITAMIN B9) 1 mg in sodium chloride 0.9 % 1,000 mL infusion (BANANA BAG) Start: 12-31-2020 End: 12-31-2020 m.v.i. adult 10 mL, thiamine (VITAMIN B1) 100 mg, folic acid (VITAMIN B9) 1 mg in sodium chloride 0.9 % 1,000 mL infusion (BANANA BAG) Start: 11-16-2020 End: 11-16-2020 m.v.i. adult 10 mL, thiamine (VITAMIN B1) 100 mg, folic acid (VITAMIN B9) 1 mg in sodium chloride 0.9 % 1,000 mL infusion (BANANA BAG) Start: 09-20-2020 End: 09-20-2020 m.v.i. adult 10 mL, thiamine (VITAMIN B1) 100 mg, folic acid (VITAMIN B9) 1 mg in sodium chloride 0.9 % 1,000 mL infusion (BANANA BAG) Start: 09-19-2020 End: 09-19-2020 m.v.i. adult 10 mL, thiamine (VITAMIN B1) 100 mg, folic acid (VITAMIN B9) 1 mg in sodium chloride 0.9 % 1,000 mL infusion (BANANA BAG) magnesium oxide 400 mg oral tablet (20 sources) Start: 05-27-2021 End: 07-05-2021 take 400 mg by mouth once daily 400 mg, Oral, DAILY, First dose on 06/27/21 at 0900, Until Discontinued Start: 02-22-2021 End: 02-24-2021 Magnesium Oxide (MAG-OX) tab let 800 mg Start: 02-22-2021 End: 02-22-2021 Magnesium Oxide (MAG-OX) tab let 400 mg Start: 09-30-2020 End: 02-22-2021 Magnesium Oxide (MAG-OX) tab let 400 mg magnesium oxide (Mag-Ox) 400 mg tablet 400 mg daily. Active magnesium oxide (Mag-Ox) 400 mg tablet 400 mg daily. Suspended 50 ml magnesium sulfate 40 mg/ml injection (20 sources) Start: 07-02-2021 End: 07-03-2021 2 g, Intravenous, Administer over 60 Minutes, On Tue07/03/21 at 0830, ONCE, 1 dose If magnesium 1.5-2.0 Repeat magnesium level in AM Start: 06-30-2021 End: 06-30-2021 2 g, Intravenous, Administer over 60 Minutes, On Tue06/30/21 at 0745, ONCE, 1 dose Start: 06-27-2021 End: 06-28-2021 2 g, Intravenous, Administer over 60 Minutes, On [place] 06/28/21 at 0700, ONCE, 1 dose If magnesium 1.5-2.0 Repeat magnesium level in AM Start: 06-25-2021 End: 06-25-2021 2 g, Intravenous, Administer over 60 Minutes, On Maye 06/25/21 at 0600, ONCE, 1 dose If magnesium 1.5-2.0 Repeat magnesium level in AM Start: 02-18-2021 End: 02-20-2021 Magnesium Sulfate 2g/50ml IV PB 2 g Start: 01-05-2021 End: 01-05-2021 Magnesium Sulfate 2g/50ml IV PB 2 g Start: 01-03-2021 End: 01-03-2021 Magnesium Sulfate 2g/50ml IV PB 2 g Start: 01-01-2021 End: 01-01-2021 Magnesium Sulfate 2g/50ml IV PB 2 g Start: 12-28-2020 End: 12-29-2020 Magnesium Sulfate 2g/50ml IV PB 2 g Start: 09-30-2020 End: 09-30-2020 Magnesium Sulfate 2g/50ml IV PB 2 g Start: 09-20-2020 End: 09-20-2020 Magnesium Sulfate 2g/50ml IV PB 2 g Start: 05-14-2019 End: 05-14-2019 Magnesium Sulfate 2g/50ml IV PB 2 g methocarbamol 500 mg oral tablet (5 sources) Muscle Relaxant Start: 06-19-2024 End: 06-21-2024 take 1 tablet by mouth every eight hours as needed 1,000 mg, Oral, Every 8 hours PRN, muscle spasms, Starting on Tue06/19/24 at 1505 Start: 11-16-2020 methocarbamol (ROBAXIN) tablet 750 mg Start: 09-20-2020 methocarbamol (ROBAXIN) tablet 750 mg Start: 04-26-2020 methocarbamol (ROBAXIN) tablet 750 mg metoprolol tartrate 25 mg oral tablet (20 sources) beta-Adrenergic Richard Start: 05-26-2021 End: 07-05-2021 take 25 mg by mouth twice daily 25 mg, Oral, TWO TIMES A DAY, First dose on 06/27/21 at 0845, Until Discontinued Caution: This medication looks and/or sounds like another medication. Start: 12-02-2020 take 25 mg by mouth twice daily 25 mg, Oral, TWO TIMES A DAY, First dose on Tue02/17/21 at 0115, Until Discontinued Caution: This medication looks and/or sounds like another medication. Start: 11-16-2020 take 25 mg by mouth twice daily 25 mg, Oral, TWO TIMES A DAY, First dose on Tue11/16/20 at 0600, Until Discontinued Caution: This medication looks and/or sounds like another medication. Start: 09-27-2020 End: 09-28-2020 metoprolol (LOPRESSOR) injec tion 2.5 mg Start: 09-04-2020 End: 09-27-2020 take 1 tablet by mouth twice daily Metoprolol Tartrate (LOPRESSOR) 25 MG tablet Indications: Essential hypertension TAKE 1 TABLET BY MOUTH TWO TIMES A DAY. 60 tablet 2 09/04/2020 Active Start: 03-20-2020 take 1 tablet by jael th twice daily Metoprolol Tartrate (LOPRESSOR) 25 MG tablet Indications: Essential hypertension TAKE 1 TABLET BY MOUTH TWO TIMES A DAY. 60 tablet 2 03/20/2020 Active Start: 10-25-2019 take 1 tablet by jael th twice daily Metoprolol Tartrate (LOPRESSOR) 25 MG tablet Indications: Essential hypertension Take 1 tablet by mouth two times a day. 60 tablet 2 10/25/2019 Active Start: 05-14-2019 take 1 tablet by jael twice daily Metoprolol Tartrate (LOPRESSOR) 25 MG tablet Take 1 tablet by mouth two times a day. 60 tablet 2 05/16/2019 Active 2 ml midazolam 1 mg/ml injection (1 source) Benzodiazepine Start: 06-20-2024 End: 06-20-2024 IntraVENous, Once PRN Procedure, Starting on Tue06/20/24 at 0950, For 1 dose, Anesthesia Intraprocedure 1 ml naloxone hydrochloride 0.4 mg/ml injection (2 sources) Opioid Antagonist Start: 06-19-2024 End: 06-21-2024 0.4 mg, IntraVENous, Every 5 min PRN, opioid reversal, respiratory depression, Starting on Tue06/19/24 at 1319, +++ For RR naproxen 500 mg oral tablet (1 source) Nonsteroidal Anti-inflammatory Drug Start: 01-20-2021 End: 02-22-2021 take 1 tablet by mouth twice daily naproxen (NAPROSYN) 500 MG tablet Take 1 tablet by mouth two times a day. 15 tablet 0 01/20/2021 02/22/2021 Discontinued (Discontinued during inpatient admission) nitroglycerin 0.4 mg sublingual tablet (3 sources) Nitrate Vasodilator Start: 12-28-2020 End: 12-28-2020 nitroGLYCERIN (NITROSTAT) 0.4 MG SL tablet 0.4 mg Start: 11-14-2019 End: 11-14-2019 nitroGLYCERIN (NITROSTAT) 0. 4 MG SL tablet 0.4 mg Start: 05-14-2019 End: 05-15-2019 nitroGLYCERIN infusion 200 m cg/mL 2 ml ondansetron 2 mg/ml injection (4 sources) Serotonin-3 Receptor Antagonist Start: 06-24-2021 End: 07-05-2021 take 4 mg intravenously every six hours as needed for nausea 4 mg, IV Push, EVERY 6 HOURS PRN, Nausea, Vomiting, Starting on Tue06/24/21 at 1858, Until 07/05/21 at 0338 Caution: This medication looks and/or sounds like another medication. Start: 12-28-2020 take 4 mg intravenou sly every six hours as needed for nausea 4 mg, IV Push, EVERY 6 HOURS PRN, Nausea, Vomiting, Starting on 12/28/20 at 2210, Until Discontinued Caution: This medication looks and/or sounds like another medication. Start: 11-14-2019 End: 11-14-2019 Ondansetron (ZOFRAN-ODT) disintegrating tablet 4 mg Start: 05-14-2019 ondansetron hc l (ZOFRAN) injection 4 mg ondansetron ODT (Zofran-ODT) disintegrating tablet 4 mg (2 sources) Start: 06-19-2024 End: 06-21-2024 take 1 tablet by mouth every eight hours as needed for nausea and vomiting ondansetron ODT (Zofran-ODT) disintegrating tablet 4 mg oxyCODONE (2 sources) Opioid Agonist Start: 06-19-2024 End: 06-21-2024 take 1 tablet by mouth every four hours as needed for pain oxyCODONE (Roxicodone) immediate release tablet 5 mg pantoprazole 40 mg injection (20 sources) Proton Pump Inhibitor Start: 06-24-2021 End: 06-30-2021 40 mg, IV Push, First dose on Tue06/24/21 at 1929, EVERY EVENING, Until Discontinued Reconstitute each vial of pantoprazole with 10 ml of 0.9% NaCl to a final concentration of approximately 4 mg/ml. Give each 40 mg vial over at least 2 minutes (no more than 20 mg/minute) Kiran nstitute each vial of pantoprazole with 10 ml of 0.9% NaCl to a final concentration of approximately 4 mg/ml. Give each 40 mg vial over at least 2 minutes (no more than 20 mg/minute) Start: 04-28-2021 End: 07-05-2021 take 40 mg by mouth once daily in the evening 40 mg, Oral, EVERY EVENING, First dose on Tue06/30/21 at 1700, Until Discontinued Caution: Do not crush or chew. Start: 01-27-2021 take 40 mg by mouth once daily before dinner 40 mg, Oral, DAILY BEFORE DINNER, First dose on Tue02/17/21 at 0115, Until Discontinued Caution: Do not crush or chew. Start: 10-31-2020 take 40 mg by mouth once daily 40 mg, Oral, DAILY, First dose on Tue12/29/20 at 0900, Until Discontinued Caution: Do not crush or chew. Start: 09-27-2020 End: 09-28-2020 Pantoprazole (PROTONIX) inje ction 40 mg Start: 08-07-2020 End: 09-27-2020 take 40 mg by mouth once daily 40 mg, Oral, DAILY, First dose on Tue09/20/20 at 0900, Until Discontinued Caution: Do not crush or chew. Start: 02-27-2020 take 1 tablet by [facility] once daily pantoprazole (PROTONIX) 40 MG tablet Indications: Gastroesophageal reflux disease without esophagitis Take 1 tablet by mouth daily. 30 tablet 3 02/27/2020 Active Start: 10-25-2019 take 1 tablet by jael th once daily pantoprazole (PROTONIX) 40 MG tablet Indications: Gastroesophageal reflux disease without esophagitis Take 1 tablet by mouth daily. 30 tablet 2 10/25/2019 Active Start: 05-18-2019 take 1 tablet by jael th once daily pantoprazole (PROTONIX) 40 MG tablet Take 1 tablet by mouth daily. 30 tablet 2 05/18/2019 Active Start: 05-14-2019 take 40 mg by mouth once daily before dinner 40 mg, Oral, DAILY BEFORE DINNER, First dose on 05/14/19 at 1700, Until Discontinued polyethylene glycol 3350 64023 mg powder for oral solution (7 sources) Osmotic Laxative Start: 06-19-2024 End: 06-21-2024 take 17 g by mouth every twenty-four hours as needed for constipation 17 g, Oral, Daily PRN, constipation, Starting on Tue06/19/24 at 1310, 1st line for treatment of constipation - give scheduled if no bowel movement in past 24 hours. Start: 06-28-2021 End: 07-05-2021 17 g, Oral, TWO TIMES A DAY, First dose on 06/28/21 at 1800, Until Discontinued Start: 02-17-2021 polyethylene g lycol 3350 (GLYCOLAX, MIRALAX) packet 17 g Start: 11-16-2020 17 g, Oral, DA RENALDO PRN, Constipation, constipation, Starting on 11/16/20 at 0131, Until Discontinued This is a maintenance laxative, begin for prevention of constipation. Start: 09-20-2020 17 g, Oral, DA RENALDO PRN, Constipation, constipation, Starting 09/20/20 at 0025, Until Discontinued This is a maintenance laxative, begin for prevention of constipation. Start: 04-26-2020 17 g, Oral, DA RENALDO PRN, Constipation, constipation, Starting 04/26/20 at 1125, Until Discontinued This is a maintenance laxative, begin for prevention of constipation. 100 ml potassium chloride 0.2 meq/ml injection (20 sources) Start: 07-02-2021 End: 07-03-2021 20 mEq, Intravenous, Adminis ter over 2 Hours, On Tue07/03/21 at 0830, ONCE, 1 dose Patient must be on monitor/telemetry. Give with D5W at [facility]-site (see separate dextrose 5% PRN order). If burning/discomfort occurs, may consider slowing KCl infusion rate and/or increasing the D5W rate - consult physician. Start: 06-30-2021 End: 06-30-2021 take 1 dose by mouth once 40 mEq, Oral, ONCE, 1 dose, On Tue06/30/21 at 0745 Caution: Do not crush or chew. Exception - Oral Solution: dissolve dose in 120 mL water, let sit for 2 minutes, then stir for 30 seconds to ensure all is dissolved and mixed and have patient drink. To ensure administration add 30 mL to cup, swirl, and have patient drink. Start: 06-27-2021 End: 06-27-2021 20 mEq, Intravenous, Adminis ter over 2 Hours, On 06/27/21 at 0230, ONCE, 1 dose If potassium 3.7-3.9. Repeat potassium in AM Start: 06-25-2021 End: 06-25-2021 take 1 dose by mouth once 40 mEq, Oral, ONCE, 1 dose, On Maye 06/25/21 at 1300 Caution: Do not crush or chew. Exception - Oral Solution: dissolve dose in 120 mL water, let sit for 2 minutes, then stir for 30 seconds to ensure all is dissolved and mixed and have patient drink. To ensure administration add 30 mL to cup, swirl, and have patient drink. Start: 06-25-2021 End: 06-25-2021 take 1 dose by mouth once 40 mEq, Oral, ONCE, 1 dose, On Maye 06/25/21 at 0630 Mix in 4-5 oz water or beverage - Take with food Mix in 4-5 oz water or beverage - Take with food Start: 06-25-2021 End: 06-27-2021 20 mEq, Intravenous, Adminis ter over 2 Hours, First dose on Tue06/26/21 at 2000, EVERY 2 HOURS SCHEDULED, 3 doses, Last dose on Tue06/27/21 at 0000 If potassium 3.1-3.3 Infuse 20mEq KCL in 100mL over two hours; repeat times two for a total of 60 mEq Repeat potassium in AM Start: 02-22-2021 End: 02-22-2021 potassium chloride SA (K-DUR ,KLOR-CON M20) CR tablet 20 mEq Start: 02-19-2021 End: 02-20-2021 potassium chloride SA (K-DUR ,KLOR-CON M20) CR tablet 20 mEq Start: 01-04-2021 End: 01-04-2021 potassium chloride SA (K-DUR ,KLOR-CON M20) CR tablet 20 mEq Start: 12-28-2020 End: 12-28-2020 potassium chloride SA (K-DUR ,KLOR-CON M20) CR tablet 40 mEq Start: 09-30-2020 End: 02-22-2021 take 2 tablets by mouth once daily potassium chloride SA (K-DUR,KLOR-CON M20) 20 MEQ tablet Take 2 tablets by mouth daily. 30 tablet 0 02/22/2021 02/22/2021 Discontinued (Reorder) Start: 09-30-2020 End: 09-30-2020 potassium chloride SA (K-DUR ,KLOR-CON M20) CR tablet 40 mEq Start: 09-29-2020 potassium chlo ride SA (K-DUR,KLOR-CON M20) CR tablet 40 mEq Start: 09-21-2020 End: 09-27-2020 potassium chloride SA (K-DUR ,KLOR-CON M20) CR tablet 40 mEq Start: 09-20-2020 End: 09-20-2020 potassium chloride SA (K-DUR ,KLOR-CON M20) CR tablet 40 mEq Start: 05-16-2019 End: 05-16-2019 potassium chloride SA (K-DUR ,KLOR-CON M20) CR tablet 20 mEq 1000 ml potassium chloride 0.04 meq/ml / sodium chloride 9 mg/ml injection (1 source) Start: 06-25-2021 End: 06-27-2021 Intravenous, at 50 mL/hr, CONTINUOUS, Starting on Maye 06/25/21 at 1130, Until 06/27/21 at 0848 potassium chloride 20 mEq, lidocaine 1% (XYLOCAINE) 8 mL in dextrose 5% 250 mL IVPB (2 sources) Start: 01-01-2021 End: 01-01-2021 potassium chloride 20 mEq, lidocaine 1% (XYLOCAINE) 8 mL in dextrose 5% 250 mL IVPB Start: 09-25-2020 End: 09-25-2020 potassium chloride 20 mEq, l idocaine 1% (XYLOCAINE) 8 mL in dextrose 5% 250 mL IVPB potassium chloride 40 mEq, lidocaine 1% (XYLOCAINE) 8 mL in dextrose 5% 250 mL IVPB (11 sources) Start: 02-18-2021 End: 02-18-2021 potassium chloride 40 mEq, lidocaine 1% (XYLOCAINE) 8 mL in dextrose 5% 250 mL IVPB Start: 02-17-2021 End: 02-17-2021 potassium chloride 40 mEq, l idocaine 1% (XYLOCAINE) 8 mL in dextrose 5% 250 mL IVPB Start: 02-16-2021 End: 02-17-2021 potassium chloride 40 mEq, l idocaine 1% (XYLOCAINE) 8 mL in dextrose 5% 250 mL IVPB Start: 01-03-2021 End: 01-03-2021 potassium chloride 40 mEq, l idocaine 1% (XYLOCAINE) 8 mL in dextrose 5% 250 mL IVPB Start: 12-29-2020 End: 12-29-2020 potassium chloride 40 mEq, l idocaine 1% (XYLOCAINE) 8 mL in dextrose 5% 250 mL IVPB Start: 11-17-2020 End: 11-17-2020 potassium chloride 40 mEq, l idocaine 1% (XYLOCAINE) 8 mL in dextrose 5% 250 mL IVPB Start: 11-16-2020 End: 11-16-2020 potassium chloride 40 mEq, l idocaine 1% (XYLOCAINE) 8 mL in dextrose 5% 250 mL IVPB Start: 09-29-2020 End: 09-29-2020 potassium chloride 40 mEq, l idocaine 1% (XYLOCAINE) 8 mL in dextrose 5% 250 mL IVPB Start: 09-27-2020 End: 09-27-2020 potassium chloride 40 mEq, l idocaine 1% (XYLOCAINE) 8 mL in dextrose 5% 250 mL IVPB Start: 09-21-2020 End: 09-21-2020 potassium chloride 40 mEq, l idocaine 1% (XYLOCAINE) 8 mL in dextrose 5% 250 mL IVPB Start: 09-19-2020 End: 09-20-2020 potassium chloride 40 mEq, l idocaine 1% (XYLOCAINE) 8 mL in dextrose 5% 250 mL IVPB 20 ml propofol 10 mg/ml injection (4 sources) General Anesthetic Start: 06-20-2024 End: 06-20-2024 IntraVENous, As needed, Starting on Tue06/20/24 at 1000, Anesthesia Intraprocedure Start: 06-24-2021 End: 06-26-2021 5-50 mcg/kg/min 54.7 kg (1.6 41-16.41 mL/hr, rounded to 1.6-16.4 mL/hr), at 1.6-16.4 mL/hr, Intravenous, CONTINUOUS, Starting on Maye 06/25/21 at 1300 Start propofol at 5 mcg/kg/min. Increase every 5 minutes by 5 mcg/kg/min until desired effect is achieved. Maximum dose is 50 mcg/kg/min. - WEANING propofol : If the infusion rate has not been increased in 4 hours, decrease the drip rate by 5 mcg/kg/min every 4 hours until discontinued. Shake well before use. Protect from light. Start: 06-24-2021 End: 06-24-2021 Starting on Tue06/24/21 at 1 757, 1 dose Created by cabinet override Shake well before use. Protect from light. purified protein derivative of tuberculin 50 unt/ml injectable solution (9 sources) Tuberculosis Skin Test, Skin Test Antigen Start: 07-04-2021 End: 07-04-2021 tuberculin (Tube rsol) 5 UNIT/0.1ML injection Inject 5 Units into the skin Once. Active rifAXIMin 550 mg oral tablet (1 source) Rifamycin Antibacterial Start: 09-20-2020 End: 09-27-2020 rifAXIMin (XIFAXAN) tablet 550 mg rocuronium bromide 10 mg/ml injectable solution (2 sources) Nondepolarizing Neuromuscular Richard Start: 06-20-2024 End: 06-20-2024 IntraVENous, As needed, Starting on Tue06/20/24 at 1000, Anesthesia Intraprocedure Start: 06-24-2021 End: 06-24-2021 take 1 dose intravenously once 100 mg, IV Push, ONCE, 1 dose, On Tue06/24/21 at 1754 High Alert: Significant harm may occur when used in error. sildenafil 100 mg oral table t (15 sources) Phosphodiesterase 5 Inhibitor Start: 02-26-2020 End: 07-04-2021 Start: 10-25-2019 take 1 tablet by jael th once daily as needed sildenafil (VIAGRA) 100 MG tablet Indications: Erectile dysfunction, unspecified erectile dysfunction type Take 1 tablet by mouth daily as needed. 30 tablet 6 10/25/2019 Active Start: 03-29-2019 take 1 tablet by jael th once daily as needed sildenafil (VIAGRA) 100 MG tablet Indications: Erectile dysfunction, unspecified erectile dysfunction type Take 1 tablet by mouth daily as needed. 30 tablet 6 03/29/2019 Active simvastatin 20 mg oral tablet (1 source) HMG-CoA Reductase Inhibitor Start: 03-29-2019 End: 05-16-2019 take 1 tablet by mouth once daily simvastatin (ZOCOR) 20 MG tablet Indications: Mixed hyperlipidemia Take 1 tablet by mouth nightly. 30 tablet 6 03/29/2019 05/16/2019 Discontinued (Discontinued during inpatient admission) 5 ml sodium chloride 9 mg/ml injection (13 sources) Start: 06-19-2024 End: 06-21-2024 take 5-40 mL intravenously every twelve hours 5-40 mL, IntraVENous, Every 12 hours, First dose on Tue06/19/24 at 1315, For Line Patency: Peripheral IV = 5 mL; Midline or Central Line = 10 mL/lumen. If following IV push medication, administer flush at same rate as the IV push. Flush volume is determined by type of infusion therapy being given. For non-viscous solutions use: Peripheral IV = 5 mL Midline or Central Line = 10 mL/lumen For viscous solutions (i.e. blood components, parenteral nutrition, contrast media, or after obtaining blood sample) use: Peripheral IV = 10 mL Midline or Central Line = 20 mL/lumen Start: 06-19-2024 End: 06-21-2024 take 100 mL intravenously every hour as needed, then take 20 mL intravenously every hour as needed 5-250 mL/hr, IntraVENous, PRN, if patient receiving piggyback infusions and maintenance fluids are not ordered OR KVO fluids to protect IV site / prevent frequent line interruptions / long duration, Starting on Tue06/19/24 at 1310, For piggyback infusion, administer at same rate as piggyback for a total of 25 mL. Enter 25 mL into dose field and piggyback rate into rate field of order. If piggyback is infusing at a rate less than 100 mL/hr, enter 25 mL into dose field and 100 mL/hr into rate field of order. For KVO fluids, enter rate of 20 mL/hr or less into rate field of order. Start: 06-19-2024 End: 06-21-2024 5-40 mL, IntraVENous, PRN, l ine care, After every IV line use, Starting on Tue06/19/24 at 1310, For Line Patency: Peripheral IV = 5 mL; Midline or Central Line = 10 mL/lumen. If following IV push medication, administer flush at same rate as the IV push. Flush volume is determined by type of infusion therapy being given. For non-viscous solutions use: Peripheral IV = 5 mL Midline or Central Line = 10 mL/lumen For viscous solutions (i.e. blood components, parenteral nutrition, contrast media, or after obtaining blood sample) use: Peripheral IV = 10 mL Midline or Central Line = 20 mL/lumen Start: 06-24-2021 End: 06-25-2021 Intravenous, at 125 mL/hr, CONTINUOUS, Starting on Tue06/24/21 at 2140, Until Tue06/25/21 at 1056 Start: 06-24-2021 End: 06-24-2021 2,109 mL (30 mL/kg 70.3 kg), Intravenous, Administer over 1.01 Hours, On Tue06/24/21 at 1832, ONCE, 1 dose Warmed fluids Start: 12-29-2020 End: 01-05-2021 0.9% NaCl infusion Start: 12-28-2020 End: 12-28-2020 sodium chloride 0.9% bolus 0 .9 % solution 1,000 mL Start: 11-16-2020 End: 11-17-2020 0.9% NaCl infusion Start: 05-15-2019 End: 05-16-2019 0.9% NaCl infusion 2 ml sugammadex 100 mg/ml injection (1 source) Start: 06-20-2024 End: 06-20-2024 IntraVENous, As needed, Starting on Tue06/20/24 at 1223, Anesthesia Intraprocedure thiamine 100 mg oral tablet (20 sources) Start: 06-23-2021 End: 07-05-2021 take 100 mg by mouth once daily 100 mg, Oral, DAILY, First dose on Tue07/01/21 at 0900, Until Discontinued Start: 12-30-2020 take 100 mg by mouth once matthew y 100 mg, Oral, DAILY, First dose on Tue02/21/21 at 0900, Until Discontinued Start: 09-04-2020 End: 09-29-2020 take 1 tablet by mouth once daily Thiamine HCl (B-1) 100 MG TABS Indications: Alcohol use TAKE 1 TABLET BY MOUTH DAILY. 30 tablet 3 09/04/2020 Active Start: 02-27-2020 End: 04-30-2020 take 1 tablet by mouth once daily Thiamine HCl (VITAMIN B-1) 100 MG tablet Indications: Alcohol use Take 1 tablet by mouth daily. 30 tablet 3 02/27/2020 Active Start: 10-25-2019 take 1 tablet by jael once daily Thiamine HCl (VITAMIN B-1) 100 MG tablet Indications: Alcohol use Take 1 tablet by mouth daily. 30 tablet 3 10/25/2019 Active Start: 02-22-2017 take 1 tablet by jael th once daily Thiamine HCl (VITAMIN B-1) 100 MG tablet Indications: Alcohol use Take 1 tablet by mouth daily. 30 tablet 3 02/22/2017 Active thiamine (VITAMIN B1) 100 mg in sodium chloride 0.9 % 5 mL IV syringe (1 source) Start: 11-16-2020 End: 11-19-2020 100 mg, Intravenous, at 60 mL/hr, DAILY, 5 doses, First dose on Tue11/16/20 at 0900, Last dose on Tue11/20/20 at 0900 IV syringe must be administered over at least 5 minutes. traZODone hydrochloride 50 mg oral tablet (18 sources) Serotonin Reuptake Inhibitor Start: 09-22-2020 End: 09-26-2020 traZODone (DESYREL) tablet 50 mg take 1 tablet by mouth once matthew y traZODone (Desyrel) 100 MG tablet Take 100 mg by mouth Nightly. Active divalproex sodium 250 mg delayed release oral tablet (10 sources) Mood Stabilizer, Anti-epileptic Agent Start: 06-19-2024 End: 06-21-2024 take 250 mg by mouth three times daily 250 mg, Oral, 3 times daily, First dose on Tue06/19/24 at 1545, Do not crush, chew, or split. vitamin b12 1 mg oral tablet (19 sources) Vitamin B12 Start: 02-17-2021 take 1000 ug by mouth once daily 1,000 mcg, Oral, DAILY, First dose on Tue02/17/21 at 0900, Until Discontinued Start: 07-08-2020 End: 09-27-2020 take 1000 ug by mouth once daily 1,000 mcg, Oral, DAILY, First dose on Tue12/29/20 at 0900, Until Discontinued Start: 02-27-2020 take 1 tablet by jael once daily vitamin B-12 (CYANOCOBALAMIN) 1000 MCG tablet Indications: B12 deficiency Take 1 tablet by mouth daily. 30 tablet 3 02/27/2020 Active Start: 10-25-2019 take 1 tablet by jael once daily vitamin B-12 (CYANOCOBALAMIN) 1000 MCG tablet Indications: B12 deficiency Take 1 tablet by mouth daily. 30 tablet 1 10/25/2019 Active Start: 03-08-2018 take 1 tablet by jael once daily vitamin B-12 (CYANOCOBALAMIN) 1000 MCG tablet Indications: B12 deficiency Take 1 tablet by mouth daily. 30 tablet 1 03/08/2018 Active (1 source) Start: 02-22-2019 End: 07-04-2021 (9 sources) Start: 07-02-2021 End: 07-03-2021 750 mg, Intravenous, Adminis ter over 15 Minutes, First dose on Tue07/02/21 at 0900, EVERY 12 HOURS, Until Discontinued Start: 07-02-2021 End: 07-02-2021 at 125 mL/hr, Intravenous, O NCE, 1 dose, On Tue07/02/21 at 0900 BANANA BAG Start: 07-02-2021 End: 07-02-2021 500 mg, Intravenous, Adminis ter over 60 Minutes, On Maye 07/02/21 at 0445, ONCE, 1 dose Start: 06-27-2021 End: 06-30-2021 100 mg, Intravenous, at 60 m L/hr, DAILY, 5 doses, First dose on Tue06/27/21 at 1215, Last dose on Tue07/01/21 at 0900 IV syringe must be administered over at least 5 minutes. Start: 06-26-2021 End: 06-30-2021 750 mg, Intravenous, Adminis ter over 15 Minutes, First dose on Tue06/26/21 at 1845, EVERY 12 HOURS, Until Discontinued Start: 06-26-2021 End: 06-27-2021 750 mg, Intravenous, Adminis ter over 1 Hours, EVERY 12 HOURS SCHEDULED (2 times per day), 6 doses, First dose (after last modification) on Tue06/26/21 at 1800, Last dose on Tue06/29/21 at 0600, Indications: Pneumonia Start: 06-26-2021 End: 07-05-2021 take 8-14 tablets by mouth every hour as needed, then take 2 tablets by mouth every hour as needed [Order 1 Start] Name: LORazepam (ATIVAN) tablet 2-4 mg Signed Summary: 2-4 mg, Oral, EVERY 1 HOUR PRN, Withdrawal, Starting on Tue06/26/21 at 0902, Until 07/05/21 at 0338 CIWA score 8-14 = 2mg CIWA score 15-20 = 3mg CIWA score > 20 = 4mg If patient is able to tolerate PO - give med PO; if patient unable to tolerate PO and has IV, give med IV; if patient unable to tolerate PO and has no IV, give med IM [Order 1 End] [Order 2 Start] Name: LORazepam injection 2-4 mg Signed Summary: 2-4 mg, Intramuscular, EVERY 1 HOUR PRN, Withdrawal, Starting on Tue06/26/21 at 0902, Until 07/05/21 at 0338 CIWA score 8-14 = 2mg CIWA score 15-20 = 3mg CIWA score > 20 = 4mg If patient is able to tolerate PO - give med PO; if patient unable to tolerate PO and has IV, give med IV; if patient unable to tolerate PO and has no IV, give med IM For IV use: dilute in equal volume of NaCl 0.9% or Dextrose 5% [Order 2 End] [Order 3 Start] Name: LORazepam injection 2-4 mg Signed Summary: 2-4 mg, IV Push, EVERY 1 HOUR PRN, Withdrawal, Starting on Tue06/26/21 at 0902, Until Tue07/05/21 at 0338 CIWA score 8-14 = 2mg CIWA score 15-20 = 3mg CIWA score > 20 = 4mg If patient is able to tolerate PO - give med PO; if patient unable to tolerate PO and has IV, give med IV; if patient unable to tolerate PO and has no IV, give med IM For IV use: dilute in equal volume of NaCl 0.9% or Dextrose 5% [Order 3 End] Start: 06-25-2021 End: 06-25-2021 1,250 mg, Intravenous, Admin ister over 1.5 Hours, EVERY 12 HOURS SCHEDULED (2 times per day), First dose on Tue06/25/21 at 0600, Until Discontinued, Indications: Pneumonia Start: 06-24-2021 End: 06-24-2021 1,750 mg, Intravenous, Admin ister over 2 Hours, ONCE, 1 dose, On Tue06/24/21 at 1846, Indications: Sepsis (1 source) Start: 06-26-2021 End: 07-05-2021 take 1 tablet by mouth once daily 1 tablet, Oral, DAILY, First dose on Tue06/26/21 at 0945, Until Discontinued (2 sources) Start: 06-25-2021 End: 06-27-2021 0.5-100 mcg/min (1.875-375 mL/hr, rounded to 1.9-375 mL/hr), at 1.9-375 mL/hr, Intravenous, CONTINUOUS, Starting on Tue06/25/21 at 0230 Titration may vary based upon patient sensitivity and response to medication. Start: 06-24-2021 End: 06-24-2021 0.5-100 mcg/min (1.875-375 m L/hr, rounded to 1.9-375 mL/hr), at 1.9-375 mL/hr, Intravenous, CONTINUOUS, Starting on Tue06/24/21 at 1837 Titration may vary based upon patient sensitivity and response to medication. (1 source) Start: 06-25-2021 End: 06-26-2021 360 mL, Orogastric, at 15 mL/hr, CONTINUOUS, Starting on Tue06/25/21 at 1015, Until Tue06/26/21 at 2039 Check tube feeding resdiual: Q4H If residual volume is equal to or greater than (specify) hold tube feeding X 4hrs then recheck: 400 ml Amount to rinse with? 50 mL Frequency to rinse: q4h (1 source) Start: 06-24-2021 End: 06-24-2021 100 mL, Intravenous, ONCE, 1 dose, On Tue06/24/21 at 2028, Radiology (1 source) Start: 06-24-2021 End: 06-24-2021 take 1 dose intravenously once 200 mcg, IV Push, ONCE, 1 dose, On Tue06/24/21 at 1846 Problems Active Problems Problem Classification Problem Date Documented Date Episodic/Chronic Abdominal pain (1 source) Left upper quadrant pain; Translations: [Left upper quadrant pain] Onset: 09-18-2024 Episodic Alcohol-related disorders (20 sources) Alcohol intoxication; Translations: [Alcoholic gastritis] Onset: 04-20-2016 Resolved: 04-30-2020 09-24-2017 Chronic Coronary atherosclerosis and other heart disease (5 sources) Coronary atherosclerosis; Translations: [Atherosclerotic heart disease of [place] coronary artery with unspecified angina pectoris] Onset: 12-28-2020 Chronic Diseases of white blood cells (3 sources) Leukocytosis; Translations: [Elevated white blood cell count, unspecified] Onset: 07-04-2021 Chronic Disorders of lipid metabolism (20 sources) Dyslipidemia; Translations: [Hyperlipidemia] Onset: 04-20-2016 Resolved: 04-30-2020 09-24-2017 Chronic Epilepsy; convulsions (3 sources) Seizure disorder; Translations: [Epilepsy, unspecified, not intractable, without status epilepticus] Onset: 02-17-2021 Chronic Esophageal disorders (17 sources) Gastroesophageal reflux disease without esophagitis; Translations: [Gastro-esophageal reflux disease without esophagitis] Onset: 12-28-2018 12-28-2018 Chronic Nausea and vomiting (1 source) Vomiting; Translations: [Emesis] Episodic Open wounds of extremities (1 source) Laceration of skin of hand; Translations: [Laceration of skin of left hand, initial encounter] Episodic Other circulatory disease (2 sources) Low blood pressure; Translations: [Other hypotension] Episodic Other complications of (8 sources) 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 ; Translations: [Diseases of the nervous system complicating , second trimester] 06-19-2024 Episodic Other injuries and conditions due to external causes (2 sources) Human bite - wound; Translations: [Human bite, initial encounter] Episodic Other injuries and conditions due to external causes (1 source) Abrasion AND/OR friction burn of multiple sites; Translations: [Multiple abrasions] Episodic Other injuries and conditions due to external causes (2 sources) Hypothermia; Translations: [Hypothermia, initial encounter] Episodic Other lower respiratory disease (2 sources) Solitary pulmonary nodule; Translations: [Solitary pulmonary nodule] Onset: 10-19-2024 Episodic Other non-traumatic joint disorders (1 source) Pain in right knee; Translations: [Pain in right knee] Onset: 09-18-2024 Episodic Other nutritional; endocrine; and metabolic disorders (1 source) Hypomagnesemia; Translations: [Hypomagnesemia] Chronic Residual codes; unclassified (11 sources) Tobacco user; Translations: [Tobacco abuse] Onset: 10-07-2014 12-17-2018 Chronic Residual codes; unclassified (1 source) Current drinker; Translations: [Alcohol use] Episodic Residual codes; unclassified (3 sources) At risk of disease; Translations: [Other specified personal risk factors, not elsewhere classified] 06-19-2024 Episodic Substance-related disorders (1 source) Nicotine dependence, cigarettes, uncomplicated; Translations: [Nicotine dependence, cigarettes, uncomplicated] Onset: 10-19-2024 Chronic Unclassified (1 source) Patient encounter status; Translations: [Encounter for lipid screening for cardiovascular disease] Past or Other Problems Problem Classification Problem Date Documented Date Episodic/Chronic Acute and unspecified renal failure (3 sources) Acute injury of kidney; Translations: [Acute kidney failure, unspecified] Onset: 02-17-2021 Episodic Alcohol-related disorders (6 sources) Alcohol intoxication; Translations: [Alcohol use, unspecified with intoxication, uncomplicated] Onset: 04-20-2016 09-24-2017 Episodic Coagulation and hemorrhagic disorders (5 sources) 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; Translations: [Other secondary thrombocytopenia] Onset: 04-20-2016 Episodic Coma; stupor; and brain damage (6 sources) Loss of consciousness; Translations: [Unspecified coma] Onset: 09-20-2020 Episodic Coronary atherosclerosis and other heart disease (17 sources) Patient post percutaneous transluminal coronary angioplasty; Translations: [Coronary angioplasty status] Onset: 05-15-2019 Resolved: 04-30-2020 05-15-2019 Episodic Epilepsy; convulsions (9 sources) Neurological finding; Translations: [Unspecified convulsions] Onset: 09-20-2020 Episodic Essential hypertension (17 sources) Hypertensive disorder; Translations: [Essential hypertension] Onset: 10-07-2014 Resolved: 04-30-2020 12-17-2018 Chronic Fluid and electrolyte disorders (11 sources) Hypokalemia; Translations: [Hypokalemia] Onset: 09-20-2020 Episodic Neoplasms of unspecified nature or uncertain behavior (19 sources) Neoplasm of right tibia; Translations: [Neoplasm of unspecified behavior of bone, soft tissue, and skin] Onset: 06-19-2024 06-19-2024 Episodic Nonspecific chest pain (20 sources) Acute chest pain; Translations: [Radiating chest pain] Onset: 04-19-2016 Resolved: 05-16-2019 05-16-2019 Episodic Other circulatory disease (1 source) Other hypotension; Translations: [Other hypotension] Onset: 07-04-2021 Episodic Other injuries and conditions due to external causes (1 source) Abrasion; Translations: [Abrasion] Episodic Other injuries and conditions due to external causes (1 source) Hypothermia, initial encounter; Translations: [Hypothermia, initial encounter] Onset: 07-04-2021 Episodic Other liver diseases (4 sources) High lipase level in serum; Translations: [Abnormal levels of other serum enzymes] Onset: 12-29-2020 Episodic Other nervous system disorders (15 sources) Numbness of upper limb; Translations: [Anesthesia of skin] Onset: 10-07-2014 10-07-2014 Episodic Other nervous system disorders (6 sources) Ataxia; Translations: [Ataxia, unspecified] Onset: 09-29-2020 Episodic Other non-traumatic joint disorders (15 sources) Shoulder pain; Translations: [Pain in unspecified shoulder] Onset: 10-07-2014 10-07-2014 Episodic Other screening for suspected conditions (not mental disorders or infectious disease) (3 sources) Increased lactic acid level; Translations: [Other specified abnormal findings of blood chemistry] Onset: 07-04-2021 Episodic Pneumonia (except that caused by tuberculosis or sexually transmitted disease) (16 sources) Pneumonia; Translations: [Infective pneumonia] Onset: 08-22-2017 Resolved: 05-27-2021 08-29-2017 Episodic Residual codes; unclassified (15 sources) Insomnia; Translations: [Insomnia, unspecified] Onset: 10-07-2014 10-07-2014 Episodic Residual codes; unclassified (8 sources) Hallucinations; Translations: [Hallucinations, unspecified] Onset: 04-29-2020 Resolved: 04-30-2020 04-30-2020 Episodic Residual codes; unclassified (8 sources) Tobacco user; Translations: [Tobacco use] Onset: 10-07-2014 Episodic Residual codes; unclassified (2 sources) Other specified personal risk factors, not elsewhere classified; Translations: [Other specified personal risk factors, not elsewhere classified] Onset: 07-17-2024 Episodic Respiratory failure; insufficiency; arrest (adult) (5 sources) Hypoxemic respiratory failure; Translations: [Respiratory failure, unspecified with hypoxia] Onset: 08-22-2017 Resolved: 08-29-2017 08-29-2017 Episodic Respiratory failure; insufficiency; arrest (adult) (10 sources) Hypoxemic respiratory failure; Translations: [Respiratory failure with hypoxia] Onset: 08-22-2017 Resolved: 08-29-2017 08-29-2017 Schizophrenia and other psychotic disorders (8 sources) Delusional disorder; Translations: [Delusional disorders] Onset: 04-26-2020 Resolved: 04-30-2020 04-30-2020 Chronic Results Test Name Value Interpretation Reference Range Facility Office Visiton 10-23-2024 Follow-up visit [id number] Jodi Fernandez 1975 M Date Provider Department Center 10/23/2024 [id number] HENNESSY [facility] OR None No family history on file Level of Service:35275 HI OFFICE/OUTPATIENT ESTABLISHED LOW MDM 20 MIN Reason for Visit and Comments: Follow-up [524412] - Xray right knee [facility] Progress Noteon 10-23-2024 Progress Note [facility] [address] [place] [address] [address] [place] [address] Dept: [phone] Dept Chief Complaint Patient presents with Follow-up Xray right knee SUBJECTIVE HPI Patient is a 49-year-old male who presents with his senior living aide for postoperative evaluation after open biopsy with curettage and 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 Of note, he does have a past medical history significant for epilepsy, Wernicke's encephalopathy, HTN, schizoaffective disorder, MD, TIA, PVD, COPD, depression/anxiety. He presents today in wheelchair but reports that he is able to walk with a walker for relatively long distances without significant discomfort. He does endorse occasional pain to his right knee which he localizes to the lateral proximal tibia after significant activity. He he is taking occasional Motrin for this with some relief. He denies paresthesias except over the area of the incision. He is very happy with his range of motion at this point and is very pleased with the results of his surgery so far. Patient Active Problem List Diagnosis Date Noted Neoplasm of right tibia 06/19/2024 Epilepsy complicating , antepartum, second trimester (HCC) Allergies[1] Family History[2] Medical History[3] Social History Socioeconomic History Marital status: Single Spouse name: Not on file Number of children: Not on file Years of education: Not on file Highest education level: Not on file Occupational History Not on file Tobacco Use Smoking status: Every Day Current packs/day: 0.50 Types: Cigarettes Smokeless tobacco: Not on file Vaping Use Vaping status: Never Used Substance and Sexual Activity Alcohol use: Yes Comment: once amonth Drug use: Yes Frequency: 1.0 times per week Types: Marijuana Sexual activity: Yes Other Topics Concern Not on file Social History Narrative Not on file Social Drivers of Health Financial Resource Strain: Not on file Food Insecurity: No Food Insecurity (06/21/2024) Hunger Vital Sign Worried About Running Out of Food in the Last Year: Never true Ran Out of Food in the Last Year: Never true Transportation Needs: No Transportation Needs (06/21/2024) PRAPARE - Transportation Lack of Transportation (Medical): No Lack of Transportation (Non-Medical): No Physical Activity: Not on file Stress: Not on file Social Connections: Not on file Intimate Partner Violence: Not At Risk (06/21/2024) Humiliation, Afraid, Rape, and Kick questionnaire Fear of Current or Ex-Partner: No Emotionally Abused: No Physically Abused: No Sexually Abused: No Housing Stability: Low Risk (06/21/2024) Housing Stability Vital Sign Unable to Pay for Housing in the Last Year: No Number of Times Moved in the Last Year: 0 Homeless in the Last Year: No Surgical History[4] Current Medications[5] Review of Systems Musculoskeletal: Positive for arthralgias, gait problem and myalgias. Remains in facility, amb with walker in PT in wheelchair for visit today Pain to right patella full ROM to knee All other systems reviewed and are negative. OBJECTIVE Vitals: 10/23/24 1018 BP: 113/79 BP Location: Left arm Patient Position: Sitting BP Cuff Size: Adult Pulse: 74 Weight: 72.6 kg (160 lb) Height: 1.626 m (5' 4) Physical Exam Physical Exam Vitals and nursing note reviewed. Constitutional: Appearance: Normal appearance. Cardiovascular: Rate and Rhythm: Normal rate. Pulmonary: Effort: Pulmonary effort is normal. Skin: General: Skin is warm and dry. Neurological: General: No focal deficit present. Mental Status: He is alert and oriented to person, place, and time. Psychiatric: Mood and Affect: Mood normal. Behavior: Behavior normal. Focused orthopedic examination: Patient sitting comfortably in wheelchair at the time of examination. He does have a well-healed curvilinear laterally based incision over the left knee. There is no evidence of open wound, drainage, significant erythema. There is no significant effusion to the left knee. Passive range of motion is 0-1 30, active range of motion is 0-1 30. Knee is overall ligamentously stable to varus valgus stress with solid endpoint appreciated on Nick testing. Sensation intact to light touch throughout all the dermatomal distributions of the right lower extremity. 5/5 strength to HF, KE, GSC, TA, EHL. Limb is warm and dry XRAY INTERPRETATION 2 view x-ray of the right knee was obtained today and independently reviewed, and compared with 2 view x-ray of the right knee obtained 07/17/2024. There is evidence of pmma present to the lateral proximal tibia with orthopedic hardware in place. Hardware appears well-fixed without evidence of loosening or failure. There is no lucency appreciated about the margins of the allograft. The joint is reduced, there is no ev (more content not included)... [facility] Pulmonary Visit Reporton Pulmonary Visit Report [facility] [address] [place] [address] OFFICE VISIT Date of Service: 10/05/24 MR#: [id number] Acct: [id number] Name: YONATHAN FERNANDEZ Rep #: [id number] : 1975 Provider: Dr. Duarte Infante DO Age/Sex: 49/M Location: [facility] Status: Signed Assessment and Plan Assessment and Plan (1) Lung nodule: Status: Chronic Plan: The patient has a known lung nodule measuring approximately 1.2 cm in the right lower lobe, noted on CT imaging of the abdomen and pelvis in January 2024. Subsequent PET scan completed in April 2024 was negative for viable neoplasm. At this time, given the size of the nodule coupled with the patient's ongoing tobacco dependency, recommend follow-up CT scan at this time. If the lesion is found to be enlarging, recommend CT-guided lung biopsy. (2) Nicotine dependence, cigarettes, uncomplicated: Status: Chronic Plan: I personally spent 4 minutes discussing the deleterious effects of ongoing tobacco use with the patient, including modalities which could be utilized to achieve a smoke-free lifestyle. Given that the patient is asymptomatic from a respiratory perspective, we will hold off on obtaining pulmonary function studies at this time. Orders: Orders Chest without Contrast 10/28/24 R91.1 - Solitary pulmonary nodule Smoking Cessation Today HPI HPI Comments Details: The patient is a 49-year-old male who presents to the clinic today in referral for the evaluation of a pulmonary nodule. The patient has an approximate [id number] smoking history and continues to smoke 0.25 packs of cigarettes per day. In addition to his personal smoking history, the patient did grow up in a smoking household. The patient is currently admitted to a fdc facility for rehabilitation, with tentative plans to be discharged home in the near future. 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 He currently denies the presence of shortness of breath. He denies any chest tightness, wheezing or cough. His weight and appetite have been stable. In January 2024, the patient was evaluated with CT imaging of the abdomen and pelvis due to pain. That imaging study demonstrated the presence of a 1.2 cm nodule in the right lower lobe. Accordingly, the patient was referred to undergo pet imaging, which was ultimately completed in April 2024. Nevertheless, the pet imaging study was negative for viable neoplasm. Intake Vital Signs 02/09/24 18:13 10/05/24 07:42 Height 5 ft 4 in 5 ft 4 in Weight: 174 lb BMI 29.8 BP 112/73 Blood Pressure Location Rt brachial Position Sitting Respiration 16 Pulse 74 Pulse Source Monitor Temp 98.2 F Temperature Source Temporal Artery Pulse Oximetry (%) 92 Oxygen Delivery Method room air Intake Visit Reasons: RLL Nodule Director Public Required: No DME Vendor: None Accompanied by: Caregiver Is patient in pain?: No Allergies No Known Allergies Allergy (Verified 10/05/24 10:14) Medications ???Medication ???Instructions ???Recorded ???Confirmed ???Type ondansetron 4 mg disintegrating 4 mg PO Q6H PRN PRN Nausea #15 tab s 02/09/24 Rx tablet acetaminophen 325 mg tablet 650 mg PO Q6H PRN 10/05/24 5 History (Tylenol) aspirin 81 mg tablet,delayed 81 mg PO QDAY 10/05/24 10/05/24 Hi story release (Adult Aspirin Regimen) atorvastatin 80 mg tablet 80 mg PO QDAY 10/05/24 10/05/24 Hi story carboxymethylcellulos e sodium 1 % 1 drp ophthalmic (eye) BID 10/05/24 History eye drops (Artificial Tears (carboxymethylcellulo se)) cholecalciferol (vitamin D3) 1,250 1,250 mcg PO 2XW 10/05/24 History mcg (50,000 unit) capsule divalproex 250 mg tablet,delayed 250 mg PO TID 10/05/24 10/05/24 Hi story release fenofibrate nanocrystallized 145 145 mg PO QDAY 10/05/24 10/05/24 H istory mg tablet folic acid 1 mg tablet 1 mg PO QDAY 10/05/24 10/05/24 His tory levetiracetam 750 mg tablet 750 mg PO BID 10/05/24 10/05/24 Hi story lorazepam 1 mg tablet 1 mg PO BID 10/05/24 10/05/24 Hist ory lorazepam 1 mg tablet 1 mg PO Q6H PRN 10/05/24 10/05/24 History magnesium hydroxide 400 mg/5 mL 30 ml PO QDAY PRN 10/05/24 5 History oral suspension (Milk of Magnesia) magnesium oxide 500 mg PO QDAY 10/05/24 10/05/24 H istory melatonin 3 mg tablet 6 mg PO HS PRN 10/05/24 10/05/24 H istory nicotine 10 mg inhalation cartridge 10 mg inhalation Q2H PRN PRN 10/05/24 History trazodone 100 mg tablet 100 mg PO QHS 10/05/24 10/05/24 Hi story PFSH Medical History (Updated 10/05/24 @ 11:[address] Duarte Infante, DO) Ataxic gait PVD (peripheral vascular disease) COPD (chronic obstructive pulmonary disease) Epilepsy Schizo (more content not included)... [facility] XR KNEE 1-2 VIEWS RIGHTon XR KNEE 1-2 VIEWS RIGHT Imaging Result: X-rays were obtained of the right proximal tibia shows excellent filling of the cavity no persistent giant cell tumor remains plate is well-fixed no articular cartilage breakdown although the tumor did distend up to subchondral bone in some areas. No sign of pathologic fracture or other concerning features on radiographs. [facility] XR Knee - right 1 or 2 Views on 07-18-2024 Imaging Result: X-rays were obtained of the right proximal tibia shows excellent filling of the cavity no persistent giant cell tumor remains plate is well-fixed no articular cartilage breakdown although the tumor did distend up to subchondral bone in some areas. No sign of pathologic fracture or other concerning features on radiographs. [facility] Office Visiton 07-17-2024 Follow-up visit [id number] Jodi Fernandez 1975 M Date Provider Department Center 07/17/2024 [id number] HENNESSY [facility] OR None No family history on file Level of Service:13503 HI POSTOP FOLLOW UP VISIT RELATED TO ORIGINAL PX Reason for Visit and Comments: Post-op [483] - DOS 06/20/24 1.Open Biopsy Right Proximal Tibia adding approximately 20 minutes to the case confirming giant cell tumor 2.Curettage and cement augmentation Right Proximal tibia 3.Prophylactic Plating Right Tibia [facility] Progress Noteon 07-17-2024 Progress Note [facility] [place] [facility] [address] [facility] [address] [facility] [address] Dept: [phone] Dept Chief Complaint Patient presents with Post-op DOS 06/20/24 1. Open Biopsy Right Proximal Tibia adding approximately 20 minutes to the case confirming giant cell tumor 2. Curettage and cement augmentation Right Proximal tibia 3. 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 He has essentially no complaints but he has been reluctant to walk but the most important factor limiting that is that he is in a senior living and does not have a lot of help or confidence or any walking aids surprisingly. He has no issues with his wound. 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 Past Medical History: Diagnosis Date Alcoholic dementia (HCC) Arthritis Bone lesion right tibia Convulsions (HCC) Depression Encephalopathy Epilepsy (HCC) Myocardial infarct, old Social History Socioeconomic History Marital status: Single Spouse name: Not on file Number of children: Not on file Years of education: Not on file Highest education level: Not on file Occupational History Not on file Tobacco Use Smoking status: Every Day Current packs/day: 0.50 Types: Cigarettes Smokeless tobacco: Not on file Vaping Use Vaping status: Never Used Substance and Sexual Activity Alcohol use: Yes Comment: once amonth Drug use: Yes Frequency: 1.0 times per week Types: Marijuana Sexual activity: Yes Other Topics Concern Not on file Social History Narrative Not on file Social Drivers of Health Financial Resource Strain: Not on file Food Insecurity: No Food Insecurity (06/21/2024) Hunger Vital Sign Worried About Running Out of Food in the Last Year: Never true Ran Out of Food in the Last Year: Never true Transportation Needs: No Transportation Needs (06/21/2024) PRAPARE - Transportation Lack of Transportation (Medical): No Lack of Transportation (Non-Medical): No Physical Activity: Not on file Stress: Not on file Social Connections: Not on file Intimate Partner Violence: Not At Risk (06/21/2024) Humiliation, Afraid, Rape, and Kick questionnaire Fear of Current or Ex-Partner: No Emotionally Abused: No Physically Abused: No Sexually Abused: No Housing Stability: Low Risk (06/21/2024) Housing Stability Vital Sign Unable to Pay for Housing in the Last Year: No Number of Times Moved in the Last Year: 0 Homeless in the Last Year: No History reviewed. No pertinent surgical history. Current Outpatient Medications Medication Sig Dispense Refill acetaminophen (Tylenol) 325 MG tablet Take 650 mg by mouth. aspirin 81 MG EC tablet Take 1 tablet (81 mg) by mouth 2 times daily. 60 tablet 11 atorvastatin (Lipitor) 80 MG tablet Take 80 mg by mouth daily. carboxymethylcellulos e (Refresh Plus) 0.5 % ophthalmic solution 1 drop if needed for dry eyes. cholecalciferol (Vitamin D-3) 1.25 MG (70128 UT) capsule Take 50,000 Units by mouth 1 (one) time per week. cholecalciferol (Vitamin D3) 1.25 MG (71067 UT) tablet Take 50,000 Units by mouth 1 (one) time per week. clopidogrel (Plavix) 75 MG tablet Take by mouth daily. divalproex (Depakote) 250 MG EC tablet Take 250 mg by mouth 3 times daily. Do not crush, chew, or split. fenofibrate (Tricor) 145 MG tablet Take 145 mg by mouth daily. folic acid (Folvite) 1 MG tablet Take by mouth daily. levETIRAcetam (Keppra) 750 MG tablet Take by mouth. LORazepam (Ativan) 1 MG tablet Take 1 mg by mouth. magnesium hydroxide (Milk of Magnesia) 400 MG/5ML suspension Take by mouth Nightly. magnesium oxide (Mag-Ox) 400 mg tablet 400 mg daily. nicotine (Nicotrol) 10 MG inhaler Inhale 1 puff if needed for smoking cessation. traMADol (Ultram) 50 MG tablet Take by mouth. traZODone (Desyrel) 100 MG tablet Take 100 mg by mouth Nightly. traZODone (Desyrel) 50 MG tablet Take 50 mg by mouth Nightly. tuberculin (Tubersol) 5 UNIT/0.1ML injection Inject 5 Units into the skin Once. No current facility-administered medications for this visit. Review of Systems Musculoskeletal: Positive for gait problem. RIGHT PROXIMAL TIBIA INCISION HEALED WELL FULL ROM RIGHT KNEE Has not started PT in facility yet will discuss at appt today And send prescription back All other systems reviewed and are negative. OBJECTIVE Vitals: 07/17/24 1333 BP: 105/65 BP Location: Left arm Patient Position: Sitting BP Cuff Size: Small adult Pulse: 69 Naun (more content not included)... [facility] XR Knee - right 1 or 2 Views on 07-17-2024 Radiology Study observation (narrative) Kika Hammond alth 07-12-2024 36 Right faxed tissue exam report and op report to Ana at [facility]. [facility] 36on 07-11-2024 36 Ana called promise weldon for the biopsy results and any surgical notes to be faxed to her at [phone]. Please advise. [facility] 36on 06-27-2024 36 Returned call to Anahy SIMPSON to remove octavia 07/12/24 he has a PO appt with Dr Hennessy 07/17/24 will get an xray at this visit Ok to apply steri strips to incision if any concerns Anahy verbalized understanding [facility] 36 Ana (nurse) from [facility] called to see if Yonathan needs his octavia removed before his 07/17 post op appointment. She can be reached at [phone], she does not have an extension, just ask for Ana. [facility] 36on 06-25-2024 36 Returned call to [facility] spoke to Key hansen nurse off floor She will call office back to give an update to me about Rustys bleeding This afternoon received return call from Tata at [facility] no further bleeding from Yonathan he is doing well [facility] 36on 06-24-2024 36 Name of caller: Ayaz Contact phone number: [phone] [facility]: Dr. Hen[facility] Practice: Ortho Chief Complaint/Reason for Call: [place] states he would like to provide Dr. Hennessy with an update regarding the patient's post-op incision. Ayaz states they received an order to remove the patient's dressing after 5 days; however, the patient's wound began bleeding pretty badly. Ayaz states there was a moderate amount of blood coming from the dressing, so they removed it and viewed the incision. Ayaz states the patient's wound was well approximated and the octavia were all in. Ayaz states the patient's bleeding has since stopped and coagulated. Ayaz states the patient's dressing was removed one day earlier than ordered, so put another ABD pad and MIKE bandage around the dressing. Ayaz states they will continue to re-assess the patient's wound and keep an eye on it for excessive bleeding. Ayaz states everything else is normal, and the patient is not running a fever. Ayaz states the office can call back with any questions regarding this message. Please be advised. Best time of day caller can be reached: Any Patient advised that office/PCP has 24-48 business hours to return their call: No [facility] [id number] 06-21-2024 [phone] Arranged transport t o [facility] with pickup at 4:30pm. Notified snf of transport time via phone call at [phone] as they are not in [facility] per [facility]. Klaudia at the facility states she is agreeable to pt's return and will pass on the information to pt's care providers. Notified RN, community health representative and [facility] of transport time. Left voice mail for pt's mother Shanice with discharge time and provided Social Work and floor contact numbers in case she has questions. [facility] [phone] SW consult w / assigned unit MAYRA P[place]ton and informed of SW consult. Zhanna reported Pt from Nursing facility where he will be returning. Zhanna plan to follow up w/ Pt needs. [facility] [phone] Med Rec Faxed to [facility] per SOFTWARE INSTALLER request Electronically signed by Francie Gunter CMA, 06-21-2024 10:17AM [facility] [id number] Message received fro lori Osborn that patient will likely be ready to return to [facility] today and requests for auth to be started for that process. Noted return referral in [facility] sent yesterday without response. Call to facility . 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 There person I spoke with was unsure if anyone int he building had access to [facility] and asked for paperwork to be faxed to: [phone]. Ortho updated. [facility] BASIC METABOLIC PANELon 05-31 Anion gap [Moles/Vol] 6 mmol/L Normal 3-13 [facility] Comment on above: Performed By: #### L [id number] #### Medical Laboratory Manager: ROSANNE AMARAL ([id number]) [facility] ([facility]) [address] [place] [address] Calcium [Mass/Vol] 7.6 mg/dL Low 8.4-10.2 [facility] Comment on above: Performed By: #### L [id number] #### Medical Laboratory Manager: ROSANNE AMARAL ([id number]) [facility] ([facility]) [address] [place] [address] [place] Chloride [Moles/Vol] 110 mmol/L High 98-107 [facility] Comment on above: Performed By: #### L AB15 #### Medical Laboratory Manager: ROSANNE AMARAL ([phone]) [facility] ([facility]) [address] [place] [address] [place] CO2 [Moles/Vol] 19 mmol/L Low 22-29 [facility] Comment on above: Performed By: #### L AB15 #### Medical Laboratory Manager: ROSANNE AMARAL ([phone]) [facility]) [address] [place] [address] Creatinine [Mass/Vol] 0.83 mg/dL Normal 0.72-1.25 [facility] Comment on above: Performed By: #### L AB15 #### Medical Laboratory Manager: ROSANNE AMARAL ([id number]) [facility] ([facility]) [address] [place] [address] GLOMERULAR FILTRATION RATE ML/MIN/1.73 SQ M.PREDICTED >90.0 Normal >60.0 [facility] Comment on above: Result Comment: Calc ulation based on the Chronic Kidney Disease Epidemiology Collaboration (CKD-EPI) equation refit without adjustment for race Performed By: #### L AB15 #### Medical Laboratory Manager: ROSANNE AMARAL ([id number]) [facility] ([facility]) [address] [place] [address] Glucose [Mass/Vol] 89 mg/dL Normal 74-100 [facility] Comment on above: Performed By: #### L AB15 #### Medical Laboratory Manager: ROSANNE AMARAL ([id number]) [facility]) [address] [place] [address] Potassium [Moles/Vol] 3.7 mmol/L Normal 3.5-5.1 [facility] Comment on above: Result Comment: [facility] potassium values may be up to 0.5 mmol/L lower than serum values. Performed By: #### L [id number] #### Medical Laboratory Manager: ROSANNE AMARAL ([phone]) [facility] ([facility]) [address] [place] [address] [place] Sodium [Moles/Vol] 135 mmol/L Low 136-145 [facility] Comment on above: Performed By: #### L AB15 #### Medical Laboratory Manager: ROSANNE AMARAL ([phone]) [facility]) [address] [place] [address] [place] Urea nitrogen [Mass/Vol] 16 mg/dL Normal - [facility] Comment on above: Performed By: #### L AB15 #### Medical Laboratory Manager: ROSANNE AMARAL ([id number]) [facility] ([facility]) [address] [place] [address] Basic metabolic 1998 panelon 06-21-2024 Anion gap [Moles/Vol] 6 mmol/L 3 - 13 mmol/L [facility] Calcium [Mass/Vol] 7.6 mg/dL Low 8.4 - 10. 2 mg/dL [facility] Chloride [Moles/Vol] 110 mmol/L High 98 - 10 7 mmol/L [facility] CO2 [Moles/Vol] 19 mmol/L Low 22 - 29 mmol/L [facility] Creatinine [Mass/Vol] 0.83 mg/dL 0.72 - 1.25 mg/dL [facility] GFR/1.73 sq M.predicted (S/P/Bld) [Vol rate/Area] - PINF [facility] Comment on above: Calculation based on the Chronic Kidney Disease Epidemiology Collaboration (CKD-EPI) equation refit without adjustment for race Glucose [Mass/Vol] 89 mg/dL 74 - 100 mg/dL [facility] Interpretation and review of laboratory results Abnormal [facility] Potassium [Moles/Vol] 3.7 mmol/L 3.5 - 5.1 mmol/L [facility] Comment on above: Plasma potassium faisal ues may be up to 0.5 mmol/L lower than serum values. Sodium [Moles/Vol] 135 mmol/L Low 136 - 145 mmol/L [facility] Urea nitrogen [Mass/Vol] 16 mg/dL 9 - 23 mg/dL [facility] CBC (HEMOGRAM)on 06-21-2024 Erythrocyte distribution width (RBC) [Ratio] 14.7 % Normal 11.5-15.0 [facility] Comment on above: Performed By: #### L [id number] ####Medical Laboratory Manager: ROSANNE AMARAL ([id number])[facility] [place] [address] Hematocrit (Bld) [Volume fraction] 39.8 % Low 40.0-52.0 [facility] Comment on above: Performed By: #### L [id number] ####Medical Laboratory Manager: ROSANNE AMARAL ([id number])[facility] ([facility])[address] [place] [address] Hemoglobin (Bld) [Mass/Vol] 13.2 g/dL Normal 13.0-18.0 [facility] Comment on above: Performed By: #### L [id number] ####Medical Laboratory Manager: ROSANNE AMARAL ([id number])[facility] ([facility])[address] [place] [address] MCH (RBC) [Entitic mass] 30.5 pg Normal 26.0-34.0 [facility] Comment on above: Performed By: #### L [id number] ####Medical Laboratory Manager: ROSANNE AMARAL ([id number])[facility])[address] [place] [address] MCHC 33.2 % Normal 30.5-36.0 [facility] Comment on above: Performed By: #### L [id number] ####Medical Laboratory Manager: ROSANNE AMARAL ([id number])[facility] ([facility])[address] [place] [address] MCV (RBC) [Entitic vol] 91.9 fL Normal 77.0-99.0 [facility] Comment on above: Performed By: #### L [id number] ####Medical Laboratory Manager: ROSANNE AMARAL ([id number])[facility] ([facility])[address] [place] [address] Platelet mean volume (Bld) [Entitic vol] 11.0 fL Normal 9.0-12.7 [facility] Comment on above: Performed By: #### L [id number] ####Medical Laboratory Manager: ROSANNE AMARAL ([id number])[facility])[address] [place] [address] Platelets (Bld) [#/Vol] 342 10*3/uL Normal 140-440 [facility] Comment on above: Performed By: #### L [id number] ####Medical Laboratory Manager: ROSANNE AMARAL ([id number])[facility])[address] [place] [address] RBC (Bld) [#/Vol] 4.33 10*6/uL Low 4.40-5.90 [facility] Comment on above: Performed By: #### L [id number] ####Medical Laboratory Manager: ROSANNE AMARAL ([id number])[facility])[address] [place] [address] WBC (Bld) [#/Vol] 14.2 10*3/uL High 3.6-10.7 [facility] Comment on above: Performed By: #### L [id number] ####Medical Laboratory Manager: ROSANNE AMARAL ([id number])[address] CBC panel Auto (Bld)on 06-21 Erythrocyte distribution width (RBC) [Ratio] 14.7 % 11.5 - 15.0 % [facility] Hematocrit (Bld) [Volume fraction] 39.8 % Low 40.0 - 52.0 % [facility] Hemoglobin (Bld) [Mass/Vol] 13.2 g/dL 13.0 - 18.0 g/dL [facility] Interpretation and review of laboratory results Abnormal [facility] MCH (RBC) [Entitic mass] 30.5 pg 26.0 - 34.0 pg [facility] MCHC (RBC) [Mass/Vol] 33.2 % 30.5 - 36.0 % [facility] MCV (RBC) [Entitic vol] 91.9 fL 77.0 - 99.0 fL [facility] Platelet mean volume (Bld) [Entitic vol] 11 fL 9.0 - 12.7 fL [facility] Platelets (Bld) [#/Vol] 342 10*3/uL 140 - 440 10*3/uL [facility] RBC (Bld) [#/Vol] 4.33 10*6/uL Low 4.40 - 5.9 0 10*6/uL [facility] WBC (Bld) [#/Vol] 14.2 10*3/uL High 3.6 - 10.7 10*3/uL [facility] Consulton 06-21-2024 Consult PAGING: The Acute Pain Service providers are available exclusively via [employer] SECURE CHAT. [facility]PS does not utilize pagers. 06/21/2024 Lab Results Component Value Date CREATININE 0.83 06/21/2024 Discharge Recommendations: Percocet 5/325. 1 tab q6h prn Assessment / Pain Management Plan: Home today Patient pain is well controlled at this time on current pain regimen. We will sign off at this time. Please re-consult our service if patient's pain becomes uncontrolled. Thank you for inviting us to participate in the care of this patient. Acute Postsurgical RLE pain Multimodal pain regimen: Continue Acetaminophen 650 mg po q6h scheduled ATC. Continue Gabapentin 300 mg po nightly. Continue Lidocaine patch x 1. Cut and place as needed. Continue Hydromorphone 0.25 mg - 0.5 mg IVP q4h prn moderate to severe breakthrough pain. Please utilize oral medications first. Continue Methocarbamol PO PRN. Continue Oxycodone 5 - 10 mg po q4h prn moderate to severe breakthrough pain. Continue Naloxone 0.4 mg IVP prn opioid reversal. PRN if respiratory rate is less than 6/min and patient is difficult to arouse then notify physician STAT. Mix 9 mL of sodium chloride 0.9% with 0.4 mg (1 mL) of naloxone (NARCAN) in 10 mL syringe. (Note: dilution is 0.04 mg/mL) Give 0.08 mg (2 mL of special dilution), slow IV push, repeat up to 0.4 mg (10 mL) or until patient is responsive to physical stimulation and respiratory rate is equal to or greater than 6 breaths/min. Continue to observe, if no response within 3 minutes of administration of 0.4 mg (10 mL) total, repeat dose (0.4 mg as administered previously). 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 Recommend initiating scheduled Sennakot-S 8.6/50mg, 1 tablet PO BID. Would also recommend Milk of Magnesia 400mg/5ml, administer 30mL by mouth daily PRN. Opioid Use, Acute Reviewed and educated patient on responsible use of opioids: after surgery, it can be normal to experience pain. If it is mild and you can move about without great difficulty or discomfort, you may not need to take pain medication. It is very important to take your pain medication only as needed. Avoiding excessive or unnecessary medication, will enable you to progress your activity each day to improve your muscle tone and movement, deep breathing, digestion, circulation and your body's ability to heal itself. OAR[place] reviewed for past two years. (No opiates RX filled) [x] Patient's OARRS report (PDMP) have been reviewed. Plan discussed with patient who appears to understand and agrees. Subjective: We have been asked to see this 49 y.o. 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 On arrival, pt sitting up in bed. Pt appears well, comfortable. Pt talkative and cooperative throughout exam, happy with current pain regimen. Pain controlled. Tolerating diet, denies n/v. Patient educated on pain regimen, aware that oxycodone po, hydromorphone IV, methocarbamol are PRN and patient must ask for these medications when needed. Educated patient to utilize oral pain medications as first line and reserve IV pain medications for severe breakthrough pain. Pt is realistic about pain control: Not all pain will be taken away, but pain should be tolerable/manageable with current regimen. Pt instructed to have staff page [facility] if pain becomes uncontrolled when utilizing present regimen. Pt agreeable, denies further questions. PMH reviewed below Pain Location: RLE Aggravating Factors: Moving Sedation score: 1: Awake and alert Pain Severity: mild Pain Quality: tender Alleviating Factors: Rest/Pain medications The patient's medical history and physical assessment, medications, allergies, patient's current medical condition, imaging, and labs were reviewed as part of this consultation. [x] Patient's Medications have been reviewed. Review of Systems Constitutional: Negative for chills and fever. HENT: Negative for trouble swallowing. Eyes: Negative for visual disturbance. Respiratory: Negative for shortness of breath. Cardiovascular: Negative for chest pain. Gastrointestinal: Negative for abdominal pain, nausea and vomiting. Musculoskeletal: Positive for arthralgias and gait problem. Skin: Positive for wound (surgical). Neurological: Negative for dizziness and headaches. Psychiatric/Behaviora l: Negative for confusion. The patien (more content not included)... [facility] Nursing Noteon 06-21-2024 Nursing Note Patient picked up fo r discharge to [facility] by stretcher. Discharge paperwork folder handed to transportation staff, prescriptions included in folder. [facility] Nursing Note Nursing phone report called to nurse Ayaz at [facility] Progress Noteon 06-21-2024 Progress Note Nutrition rescreen completed. Chart reviewed. Patient to be monitored and followed by the diet tool grinding technician. COLLEEN Mosher [facility] [id number] 06-20-2024 [id number] Patient sated he did not want anyone called to updated [facility] 30on 06-20-2024 30 Problem: Knowledge Deficit Goal: Patient/family/caregi raina demonstrates understanding of disease process, treatment plan, medications, and discharge instructions Outcome: Progressing Problem: Potential for Compromised Skin Integrity Goal: Skin Integrity is Maintained or Improved Outcome: Progressing Goal: Nutritional status is improving Outcome: Progressing Problem: Urinary Incontinence Goal: Perineal skin integrity is maintained or improved Outcome: Progressing [facility] [id number] 06-20-2024 [id number] SW consult: No angelicao n listed Covering SW reviewed chart. SW met w /Pt, introduced self, and inquired upon Pt's living arrangements. Pt responded with pleasant demeanor and stated he is not sure where he lives. Pt did not present as a good historian. SW plan to follow up w / [facility] and / or assigned unit SW. SW following. [facility] Airwayon 06-20-2024 CHRISTINA Harden CRNA 06/20/2024 10:15 AM Airway Date/Time: 06/20/2024 10:01 AM Urgency: scheduled Airway not difficult General Information and Staff Patient location during procedure: Procedural Resident/GREASE REFINING SUPERVISOR: CHRISTINA Harden CRNA Performed: GREASE REFINING SUPERVISOR Indications and Patient Condition Indications for airway management: anesthesia Sedation level: Asleep Preoxygenated: yes Patient position: sniffing MILS maintained throughout Mask difficulty assessment: 1 - vent by mask Final Airway Details Final airway type: endotracheal airway Successful airway: ETT Cuffed: yes Successful intubation technique: direct laryngoscopy Endotracheal tube insertion site: oral Blade: Charlie Blade size: #3 ETT size (mm): 7.0 Cormack-Lehane Classification: grade I - full view of glottis Placement verified by: chest auscultation and capnometry Measured from: teeth ETT to teeth (cm): 22 Number of attempts at approach: 1 Ventilation between attempts: none Number of other approaches attempted: 0 [facility] ECG 12-LEADon 06-20-2024 ECG 12-LEAD IMPRESSION: Sinus rhythm Low voltage, precordial leads Electronically Signed On 06-20-2024 11:47:20 EST [facility] No Panel Informationon 06-20 There is no interpretation needed for this exam. IMAGING Sinus rhythm Low voltage, precordial leads Electronically Signed On 06-20-2024 11:47:20 EST by BurakBurak Gordon MD - 06/20/2024 IMPRESSION: Sinus rhythm Low voltage, precordial leads Electronically Signed On 06-20-2024 11:47:20 EST by [facility] No Panel InformationOrdered By: Burak Pittman on 06-20-2024 P [place] 42 degrees [facility] Work Phone: HI Interval 176 ms [facility] Work Phone: QRS [place] 56 degrees [facility] Work Phone: QRSD Interval 84 ms [facility] Work Phone: QT Interval 386 ms [facility] Work Phone: QTC Interval 404 ms [facility] Work Phone: T Wave [place] 26 degrees [facility] Work Phone: [facility] Work Phone: Op Noteon 06-20-2024 Op Note Operative Report Patient Name: Yonathan Fernandez Date of : 1975 Date of Surgery: 06/20/24 Pre-operative diagnosis: Right proximal tibia neoplasm, impending fracture Post-operative diagnosis: Same Procedure(s): Open Biopsy Right Proximal Tibia 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 Compared to a standard curettage of a proximal tibial tumor this required double the time of resection of the aggressive benign tumor. Surgeon: Joyce Hennessy M.D. Principal Mechanical Engineer(s): Neville PGY-5, Abdullahi PGY-3 Anesthesia: general EBL: Minimal IVF: Crystalloid Medications: Two grams of Cefazolin were given. Implants: Synthes proximal tibia plate, cement augmentation Clinical History/Indication for Surgery The patient is a 49 y.o. year old male who was presents for open biopsy, curettage, cement augmentation and prophylactic plating right proximal tibia. Typical indications for surgery were reviewed and operative excision and biopsy was recommended. Risks of surgery in general were reviewed including, but not limited to, infection, need for additional procedures, painful or prominent scars, damage to normal structures as well as medical complications such as MD, stroke, PE, DVT, and even . Pt was given opportunity to ask questions and consider his options. He ultimately elected to proceed with surgery. No guarantees were given or implied. Operative Narration The patient was identified in the pre-operative holding area. The surgical site was identified and marked. Informed consent was obtained. The patient was then brought to the operating room and placed supine on the operating table. Anesthesia was administered and care of the head, neck, and airway was maintained by the anesthesia staff throughout the entire procedure. All bony prominences were identified and padded. A tourniquet was applied to the operative extremity. The operative extremity was then prepped and draped in the usual sterile fashion. A surgical timeout was performed. Antibiotics were confirmed to have been given. The tourniquet was inflated. An anterolateral exposure to the proximal tibia was made incising skin and subcutaneous tissues down to the fascia. The fascia over the anterior compartment was incised and carried proximally over Gerdy's tubercle and into the iliotibial band. Care was taken to not violate the joint capsule. This layer was elevated posteriorly along with the tibialis anterior muscle off the lateral aspect of the tibia. The same layer was also elevated anteriorly until the lateral proximal tibia was fully exposed. A corticotomy was created in order to obtain access to right proximal tibial mass. This was then curetted and sent for frozen on moist Telfa. Attending surgeon remained scrubbed in and present within the room throughout the entire procedure. 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 A sub-meniscal arthrotomy was then created to allow for intra-articular exposure. The meniscus was examined and found to be intact. The articular cartilage was also smooth and largely intact without significant defect. 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 Remaining sample was sent for permanent. Following adequate curettage, the bone void was irrigated and reevaluated for further need for curettage. Once felt that all tumor had been removed, we then proceeded with burring the cortical edges of the entire bone void. A Bovie was then utilized in order to burn entire bone void. We then again confirmed intact cartilage intra-articularly. A lateral plate was applied with a single distal cortical screw in order to hold plate in place with K wires proximal. The plate position was confirmed on imaging and felt to be appropriate. We then proceeded with drilling the proximal locking screws including the kickstand screw. All screws lengths were measured and this was recorded on the back table. The cortical screw was then loosened and the plate spun 90 degrees in order to gain access to corticotomy site. The bone void was then filled with 2 batches of Palacos cement and the plate replaced and refaxed with cortical screw and appropriate locking screws. 2 additional cortical screws were placed distally. Final imaging was obtained and saved. The arthrotomy was then repaired with 0 Vicryl suture in a mattress fashion Copious irrigation was performed and closure performed in a layered fashion including fascia and skin. A sterile compressive dressing was then applied. Once the patient was awakened from anesthesia, they were trans (more content not included)... Normal [facility] Peripheral Blockon 5 Courtney Burkett APRN - GREASE REFINING SUPERVISOR 06/20/2024 9:55 AM Peripheral Block Time Out: 06/20/2024 9:50 AM Patient location during procedure: pre-op Start time: 06/20/2024 9:50 AM End time: 06/20/2024 9:54 AM Reason for block: at surgeon's request and post-op pain management Staffing Performed: GREASE REFINING SUPERVISOR Resident/GREASE REFINING SUPERVISOR: Courtney Burkett APRN - RADHA Preanesthetic Checklist Completed: patient identified, IV checked, site marked, risks and benefits discussed, surgical consent, monitors and equipment checked, pre-op evaluation and timeout performed Region: Lower Extremities Primary: Femoral Peripheral Block Patient position: supine Patient monitoring: heart rate, cardiac cath lab technologist and continuous pulse ox O2: Room air Laterality: right Injection technique: single-shot Guidance: ultrasound guided -image retained in chart, tip of the needle identified by ultraound during injection. Needle Needle: 22G X 80 mm Additional Notes 06/20/2024 9:50 AM and midazolam (Versed) injection - IntraVENous 2 mg - 06/20/2024 9:50:00 AM Assessment Injection assessment: negative aspiration for heme, incremental injection, local visualized surrounding nerve on ultrasound and no paresthesia on injection Heart rate change: no Slow fractionated injection: no Required Documentation: Relevant anatomy identified (Nerves, Vessels, Muscles), Negative for blood on aspiration, Local anesthetic injected incrementally with intermittent aspiration every 5 mL, Normal resistance with injection, Local anesthetic spread visualized around nerves or plane., No EKG changes noted, No paresthesias reported by patient during injection, No symptoms of toxicity and Local anesthetic injected without difficultyMedications midazolam (Versed) injection - IntraVENous 2 mg - 06/20/2024 9:50:00 AMdexAMETHasone-bupiv acaine-epinephrine (TAP) syringe - Injection 20 mL - 06/20/2024 9:50:00 AM [facility] Vital signsOrdered By: Yas Pittman on 06-20-2024 Heart rate 66 /min bpm [facility] [place] Work Phone: 30on 06-19-2024 30 Problem: Knowledge Deficit Goal: Patient/family/caregi raina demonstrates understanding of disease process, treatment plan, medications, and discharge instructions Outcome: Progressing Problem: Potential for Compromised Skin Integrity Goal: Skin Integrity is Maintained or Improved Outcome: Progressing Goal: Nutritional status is improving Outcome: Progressing Normal [facility] ABO and Rh group Confirm Nom (Bld)on 06-19-2024 ABO group Nom (Bld) A [facility] D Ag Ql (RBC) Positive [facility] BASIC METABOLIC PANELon 01-2 Anion gap [Moles/Vol] 7 mmol/L Normal 3-13 [facility] Comment on above: Performed By: #### L [id number] ####Medical Laboratory Manager: ROSANEN AMARAL ([id number])[facility] [place] [address] Calcium [Mass/Vol] 9.1 mg/dL Normal 8.4-10.2 [facility] Comment on above: Performed By: #### L [id number] ####Medical Laboratory Manager: ROSANNE AMARAL ([phone])[facility] [place] [address] Chloride [Moles/Vol] 108 mmol/L High 98-107 [facility] Comment on above: Performed By: #### L [id number] ####Medical Laboratory Manager: ROSANNE AMARAL ([id number])[facility] [place] [address] CO2 [Moles/Vol] 26 mmol/L Normal 22-29 [facility] Comment on above: Performed By: #### L [id number] ####Medical Laboratory Manager: ROSANNE AMARAL ([phone])[facility] ([facility])[address] [place] [address] Creatinine [Mass/Vol] 0.93 mg/dL Normal 0.72-1.25 [facility] Comment on above: Performed By: #### L [id number] ####Medical Laboratory Manager: ROSANNE AMARAL ([phone])[facility] [place] [address] GLOMERULAR FILTRATION RATE ML/MIN/1.73 SQ M.PREDICTED >90.0 Normal >60.0 [facility] Comment on above: Result Comment: Calc ulation based on the Chronic Kidney Disease Epidemiology Collaboration (CKD-EPI) equation refit without adjustment for race Performed By: #### L [id number] ####Medical Laboratory Manager: ROSANNE AMARAL ([id number])[facility] [place] [address] Glucose [Mass/Vol] 98 mg/dL Normal 74-100 [facility] Comment on above: Performed By: #### L [id number] ####Medical Laboratory Manager: ROSANNE AMARAL ([phone])[facility])[address] [place] [address] Potassium [Moles/Vol] 4.3 mmol/L Normal 3.5-5.1 [facility] Comment on above: Result Comment: [facility] potassium values may be up to 0.5 mmol/L lower than serum values. Performed By: #### L [id number] ####Medical Laboratory Manager: ROSANNE AMARAL ([phone])[facility])[address] [place] [address] Sodium [Moles/Vol] 141 mmol/L Normal 136-145 [facility] Comment on above: Performed By: #### L [id number] ####Medical Laboratory Manager: ROSANNE AMARAL ([phone])[facility])[address] [place] [address] Urea nitrogen [Mass/Vol] 18 mg/dL Normal 9-23 [facility] Comment on above: Performed By: #### L [id number] ####Medical Laboratory Manager: ROSANNE AMARAL ([phone])[facility])[address] [place] [address] BLOOD TYPE AND SCREEN GELon 06-19-2024 ABO GROUPING A Normal [facility] Comment on above: Performed By: #### L [id number] ####Medical Laboratory Manager: ROSANNE AMARAL ([phone])[facility] ([facility])[address] [place] [address] RH TYPE IN BLOOD Positive Normal [facility] Comment on above: Performed By: #### L [id number] ####Medical Laboratory Manager: ROSANNE AMARAL ([phone])[facility] ([facility])[address] [place] [address] Basic metabolic 1998 panelon 06-19-2024 Anion gap [Moles/Vol] 7 mmol/L 3 - 13 mmol/L [facility] Calcium [Mass/Vol] 9.1 mg/dL 8.4 - 10. 2 mg/dL [facility] Chloride [Moles/Vol] 108 mmol/L High 98 - 10 7 mmol/L [facility] CO2 [Moles/Vol] 26 mmol/L 22 - 29 mmol/L [facility] Creatinine [Mass/Vol] 0.93 mg/dL 0.72 - 1.25 mg/dL [facility] GFR/1.73 sq M.predicted (S/P/Bld) [Vol rate/Area] - PINF [facility] Comment on above: Calculation based on the Chronic Kidney Disease Epidemiology Collaboration (CKD-EPI) equation refit without adjustment for race Glucose [Mass/Vol] 98 mg/dL 74 - 100 mg/dL [facility] Interpretation and review of laboratory results Abnormal [facility] Potassium [Moles/Vol] 4.3 mmol/L 3.5 - 5.1 mmol/L [facility] Comment on above: Plasma potassium faisal ues may be up to 0.5 mmol/L lower than serum values. Sodium [Moles/Vol] 141 mmol/L 136 - 145 mmol/L [facility] Urea nitrogen [Mass/Vol] 18 mg/dL 9 - 23 mg/dL [facility] Blood type and Crossmatch pa lisa (Bld)on 06-19-2024 ABO group Nom (Bld) A [facility] Blood group antibody screen GEL Ql Negative [facility] D Ag Ql (RBC) [facility] CBC W Auto Differential pane l (Bld)on 06-19-2024 Basophils (Bld) [#/Vol] 0.1 10*3/uL 0.0 - 0.2 10*3/uL [facility] Basophils/100 WBC (Bld) 0.5 % 0.0 - 2.0 % [facility] Eosinophils (Bld) [#/Vol] 0.5 10*3/uL 0.0 - 0.5 10*3/uL [facility] Eosinophils/100 WBC (Bld) 5.6 % 0.0 - 6.0 % [facility] Erythrocyte distribution width (RBC) [Ratio] 14.4 % 11.5 - 15.0 % [facility] Hematocrit (Bld) [Volume fraction] 42.2 % 40.0 - 52.0 % [facility] Hemoglobin (Bld) [Mass/Vol] 13.8 g/dL 13.0 - 18.0 g/dL [facility] Immature granulocytes (Bld) [#/Vol] 0 10*3/uL NINF - 0.1 10*3/uL [facility] Immature granulocytes/100 WBC (Bld) 0.4 % 0.0 - 2.0 % [facility] Interpretation and review of laboratory results Normal [facility] Lymphocytes (Bld) [#/Vol] 2.7 10*3/uL 1.0 - 4.3 10*3/uL [facility] Lymphocytes/100 WBC (Bld) 28.8 % 15.0 - 45.0 % [facility] MCH (RBC) [Entitic mass] 30.3 pg 26.0 - 34.0 pg [facility] MCHC (RBC) [Mass/Vol] 32.7 % 30.5 - 36.0 % [facility] MCV (RBC) [Entitic vol] 92.7 fL 77.0 - 99.0 fL [facility] Monocytes (Bld) [#/Vol] 0.8 10*3/uL 0.0 - 0.9 10*3/uL [facility] Monocytes/100 WBC (Bld) 8.3 % 5.0 - 13.0 % [facility] Neutrophils (Bld) [#/Vol] 5.2 10*3/uL 1.8 - 7.5 10*3/uL [facility] Neutrophils/100 WBC (Bld) 56.4 % 38.0 - 82.0 % [facility] Nucleated RBC/100 WBC (Bld) [Ratio] 0 % [facility] Platelet mean volume (Bld) [Entitic vol] 10.8 fL 9.0 - 12.7 fL [facility] Platelets (Bld) [#/Vol] 322 10*3/uL 140 - 440 10*3/uL [facility] RBC (Bld) [#/Vol] 4.55 10*6/uL 4.40 - 5.9 0 10*6/uL [facility] WBC (Bld) [#/Vol] 9.3 10*3/uL 3.6 - 10.7 10*3/uL [facility] CBC WITH AUTO DIFFERENTIALon 06-19-2024 Basophils (Bld) [#/Vol] 0.1 10*3/uL Normal 0.0-0.2 [facility] Comment on above: Performed By: #### L [id number] ####Medical Laboratory Manager: ROSANNE AMARAL ([phone])[facility])[address] [place] [address] Basophils/100 WBC (Bld) 0.5 % Normal 0.0-2.0 [facility] Comment on above: Performed By: #### L [id number] ####Medical Laboratory Manager: ROSANNE AMARAL ([phone])[facility])[address] [place] [address] Eosinophils (Bld) [#/Vol] 0.5 10*3/uL Normal 0.0-0.5 [facility] Comment on above: Performed By: #### L [id number] ####Medical Laboratory Manager: ROSANNE AMARAL ([phone])[facility])[address] [place] [address] Eosinophils/100 WBC (Bld) 5.6 % Normal 0.0-6.0 [facility] Comment on above: Performed By: #### L [id number] ####Medical Laboratory Manager: ROSANNE AMARAL ([phone])[facility])[address] [place] [address] Erythrocyte distribution width (RBC) [Ratio] 14.4 % Normal 11.5-15.0 [facility] Comment on above: Performed By: #### L [id number] ####Medical Laboratory Manager: ROSANNE AMARAL ([id number])[facility])[address] [place] [address] Hematocrit (Bld) [Volume fraction] 42.2 % Normal 40.0-52.0 [facility] Comment on above: Performed By: #### L [id number] ####Medical Laboratory Manager: ROSANNE AMARAL ([id number])[facility])[address] [place] [address] Hemoglobin (Bld) [Mass/Vol] 13.8 g/dL Normal 13.0-18.0 [facility] Comment on above: Performed By: #### L [id number] ####Medical Laboratory Manager: ROSANNE AMARAL ([phone])[facility])[address] [place] [address] IMMATURE GRANS % 0.4 % Normal 0.0-2.0 [facility] Comment on above: Performed By: #### L [id number] ####Medical Laboratory Manager: ROSANNE AMARAL ([phone])[facility])[address] [place] [address] IMMATURE GRANS ABSOLUTE 0.0 10*3/uL Normal <0.1 [facility] Comment on above: Performed By: #### L [id number] ####Medical Laboratory Manager: ROSANNE AMARAL ([id number])[facility])[address] [place] [address] Lymphocytes (Bld) [#/Vol] 2.7 10*3/uL Normal 1.0-4.3 [facility] Comment on above: Performed By: #### L [id number] ####Medical Laboratory Manager: ROSANNE AMARAL ([id number])[facility])[address] [place] [address] Lymphocytes/100 WBC (Bld) 28.8 % Normal 15.0-45.0 [facility] Comment on above: Performed By: #### L [id number] ####Medical Laboratory Manager: ROSANNE AMARAL ([phone])[facility])[address] [place] [address] MCH (RBC) [Entitic mass] 30.3 pg Normal 26.0-34.0 [facility] Comment on above: Performed By: #### L [id number] ####Medical Laboratory Manager: ROSANNE AMARAL ([phone])[facility])[address] [place] [address] MCHC 32.7 % Normal 30.5-36.0 [facility] Comment on above: Performed By: #### L [id number] ####Medical Laboratory Manager: ROSANNE AMARAL ([id number])[facility])[address] [place] [address] MCV (RBC) [Entitic vol] 92.7 fL Normal 77.0-99.0 [facility] Comment on above: Performed By: #### L [id number] ####Medical Laboratory Manager: ROSANNE AMARAL ([id number])[facility] ([facility])[address] [place] [address] Monocytes (Bld) [#/Vol] 0.8 10*3/uL Normal 0.0-0.9 [facility] Comment on above: Performed By: #### L [id number] ####Medical Laboratory Manager: ROSANNE AMARAL ([phone])[facility] ([facility])[address] [place] [address] Monocytes/100 WBC (Bld) 8.3 % Normal 5.0-13.0 [facility] Comment on above: Performed By: #### L [id number] ####Medical Laboratory Manager: ROSANNE AMARAL ([id number])[facility] ([facility])[address] [place] [address] NEUTROPHILS ABSOLUTE 5.2 10*3/uL Normal 1.8-7.5 [facility] Comment on above: Performed By: #### L [id number] ####Medical Laboratory Manager: ROSANNE AMARAL ([phone])[facility] ([facility])[address] [place] [address] Neutrophils/100 WBC (Bld) 56.4 % Normal 38.0-82.0 [facility] Comment on above: Performed By: #### L [id number] ####Medical Laboratory Manager: ROSANNE AMARAL ([id number])[facility] ([facility])[address] [place] [address] [place] NRBC 0.0 /100 WBCs Normal 0.0-2.0 [facility] Comment on above: Performed By: #### L [id number] ####Medical Laboratory Manager: ROSANNE AMARAL ([phone])[facility] ([facility])[address] [place] [address] Platelet mean volume (Bld) [Entitic vol] 10.8 fL Normal 9.0-12.7 [facility] Comment on above: Performed By: #### L [id number] ####Medical Laboratory Manager: ROSANNE AMARAL ([id number])[facility])[address] [place] [address] Platelets (Bld) [#/Vol] 322 10*3/uL Normal 140-440 [facility] Comment on above: Performed By: #### L [id number] ####Medical Laboratory Manager: ROSANNE AMARAL ([phone])[facility] ([facility])[address] [place] [address] RBC (Bld) [#/Vol] 4.55 10*6/uL Normal 4.40-5.90 [facility] Comment on above: Performed By: #### L [id number] ####Medical Laboratory Manager: ROSANNE AMARAL ([phone])[facility])[address] [place] [address] WBC (Bld) [#/Vol] 9.3 10*3/uL Normal 3.6-10.7 [facility] Comment on above: Performed By: #### L [id number] ####Medical Laboratory Manager: ROSANNE AMARAL ([phone])[facility])[address] [place] [address] Consulton 06-19-2024 Consult - Attestation signed by Collin Ellington MD at 06/21/2024 12:33 PM Hospitalist Progress Note 06/21/[id number]: Please page me ([phone]) for patient care issues. [phone]: Please page [facility] Hospitalist for any issues. Subjective: Admit Date: 06/19/2024PCP: Jared Forde MD Room#: [id number] A I have evaluated the patient and reviewed the case with the JAQUELINE. I agree with the current plan of care including the workup, evaluation, management, and diagnosis. Care plan has been discussed. The documentation below has been reviewed and edited as needed to reflect the findings of my evaluation. Greater than 25% of the 15 minute face to face encounter was spent discussing/counseling the patient regarding the care plan for this patient. The patient was seen and examined independently and relevant data reviewed by myself. A full chart review and problem focused physical exam was performed. 06/20/2024 12:40 PM 06/20/2024 12:45 PM 06/20/2024 1:00 PM 06/20/2024 1:15 PM 06/20/2024 1:30 PM 06/20/2024 8:32 PM 06/21/2024 9:06 AM Vitals Systolic 140 136 142 156 147 140 124 Diastolic 71 69 75 73 74 73 66 Heart Rate 78 74 76 68 70 67 72 Temp 35.8 ?C (96.5 ?F) 37.2 ?C (98.9 ?F) 36.7 ?C (98 ?F) Resp 15 16 17 16 16 16 SpO2 94 % 97 % 92 % 95 % 95 % 96 % 95 % Acute, acute on chronic, unstable/uncontrolled chronic problems/diagnoses: R tibial lesion - concern for malignancy Stable chronic problems affecting care, new non-acute diagnoses: Alcoholic dementia CAD on asa/plavix Depression Seizure d/o Total time spent (which include face to face and non face to face encounters) : 15 minutes Collin Ellington MD on 06/21/2024 Division of Hospital Medicine Inpatient Medical Services/[facility] PAGER: [phone] Hospital Medicine Consult Patient - Yonathan Fernandez, Age - 49 y.o. - 1975 Room Number - [id number] Consulting - Joyce Hennessy MD Primary Care Physician - Jared Forde MD [facility] # - [id number] Date of Admission - 06/19/2024 9:09 AM Hospital Day - 0 Reason for Consult: Medical Management HISTORY OF PRESENT ILLNESS: Yonathan is a 49 y.o. male with a PMH of alcoholic dementia, arthritis, depression, epilepsy, schizoaffective disorder, MD, TIA, PVD, COPD, right proximal tibial lesion admitted to the hospital by ortho for Right tibia biopsy with curettage, cement augmentation and prophylactic plating on 06/20/24. [facility] is consulted for medical management. Pt seen and evaluated sitting in bed. NAD. Reports he is originally from [place] and all previous allen care received there. He denies fever, chills, CP, palpitations, dizziness, SOB, cough, abdominal pain, nausea, vomiting, dysuria. He denies history of COPD. Does not wear oxygen. He is a current smoker 0.5 PPD. EKG obtained shows SR, rate 66, Qtc 404. BMP and CBC are unremarkable, PT/INR normal. Vital signs reviewed, he is afebrile, BP well controlled 105/60. He is on room air 94%. Past Medical History: Past Medical History: Diagnosis Date Alcoholic dementia (HCC) Arthritis Bone lesion right tibia Convulsions (HCC) Depression Encephalopathy Epilepsy (HCC) Myocardial infarct, old Past Surgical History: History reviewed. No pertinent surgical history. Medications: Scheduled PRN acetaminophen, 650 mg, Oral, q6h sodium chloride 0.9%, 5-40 mL, IntraVENous, q12h PRN medications: morphine sulfate OR morphine sulfate, naloxone, ondansetron ODT OR ondansetron, oxyCODONE OR oxyCODONE, polyethylene glycol (PEG) 3350, sodium chloride, sodium chloride 0.9% Continuous Allergies: Patient has no known allergies. Social History: Social History Socioeconomic History Marital status: Single Spouse name: Not on file Number of children: Not on file Years of education: Not on file Highest education level: Not on file Occupational History Not on file Tobacco Use Smoking status: Every Day Current packs/day: 0.50 Types: Cigarettes Smokeless tobacco: Not on file Vaping Use Vaping status: Never Used Substance and Sexual Activity Alcohol use: Yes Comment: once amonth Drug use: Yes Frequency: 1.0 times per week Types: Marijuana Sexual activity: Yes Other Topics Concern Not on file Social History Narrative Not on file Social Drivers of Health Financial Resource Strain: Not on file Food Insecurity: Not on file Transportation Needs: No Transportation Needs (06/19/2024) PRAPARE - Transportation Lack of Transportation (Medical): No Lack of Transportation (Non-Medical): No Physical Activity: Not on file Stress: Not on file Social Connections: Not on file Intimate Partner Violence: Not At Risk (06/19/2024) Humiliation, Afraid, Rape, and Kick questionnaire Fear (more content not included)... Normal [facility] Laboratory - Coagulationon 0 06-19-2024 PT Coag (Bld) [Time] 11.9 s 9.0 - 12.0 s [facility] Office Visiton 06-19-2024 Follow-up visit [id number] Jodi Fernandez rina 1975 M Date Provider Department Center 06/19/2024 [id number] HENNESSY [facility] OR None No family history on file Level of Service:98320 HI OFFICE/OUTPATIENT [facility] 60 MINUTES Reason for Visit and Comments: Pain [136] Normal [facility] PROTHROMBIN TIMEon INR Coag (PPP) [Relative time] 1.1 {INR} Normal 0.9-1.1 [facility] Comment on above: Result Comment: Kiran mmended Anticoagulant Therapy: SEE BELOW ----- INR of 2.0 - 3.0 : - Prophylaxis of Venous Thrombosis (high-risk surgery) - Treatment of Venous Thrombosis - Treatment of Pulmonary Embolism (Includes tissue heart valves, Acute Myocardial Infarction to prevent systemic embolism, Valvular Heart Disease, and Atrial Fibrillation) ----- INR of 2.5 - 3.5 : - Mechanical Prosthetic Valves (high risk) - If oral anticoagulant therapy is used to prevent Myocardial Infarction Performed By: #### L [id number] ####Medical Laboratory Manager: ROSANNE AMARAL ([id number])[facility] ([address] PT Coag (PPP) [Time] 11.9 s Normal 9.0-12.0 [facility] Comment on above: Performed By: #### L [id number] ####Medical Laboratory Manager: ROSANNE AMARAL ([phone])[facility] ([facility] PT Coag (Bld) [Time]on 06-19 INR Coag (PPP) [Relative time] 1.1 {INR} 0.9 - 1.1 [facility] Comment on above: Recommended Anticoag ulant Therapy: SEE BELOW ----- INR of 2.0 - 3.0 : - Prophylaxis of Venous Thrombosis (high-risk surgery) - Treatment of Venous Thrombosis - Treatment of Pulmonary Embolism (Includes tissue heart valves, Acute Myocardial Infarction to prevent systemic embolism, Valvular Heart Disease, and Atrial Fibrillation) ----- INR of 2.5 - 3.5 : - Mechanical Prosthetic Valves (high risk) - If oral anticoagulant therapy is used to prevent Myocardial Infarction Interpretation and review of laboratory results [facility] Progress Noteon 06-19-2024 Progress Note CD UPLOADED, IMAGES IN AGFA Disc given back to pt by Normal [facility] Progress Note PHYSICAL THERAPY [facility] Name/MRN: Yonathan Fernandez ([id number]) Date: 06/19/2024 Hold Note Per EMR plan for OR for R tibia biopsy with curettage, cement augmentation and prophylactic plating 06/20\. Will re-attempt as able. Mike Gallagher, PT [facility] Progress Note [facility] [place] [address] [place] [address] [place] [id number] Dept: [phone] Dept No chief complaint on file. SUBJECTIVE HPI This is a 49yo male with PMH significant for epilepsy, Wernicke's encephalopathy, HTN, schizoaffective disorder, MD, TIA, PVD, COPD, depression/anxiety who presents to clinic for right knee pain that has been worsening over 5 years. He was referred to our clinic after XR/MRI demonstrated a right proximal tibial lesion. 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 At the time, there was no concern for fractures. Patient states that he was unable to walk 2 days after this injury and has been wheelchair bound since. Patient sought medical care due to worsening pain. He denies new injuries. Patient presents from a nursing facility due to his mental disorders and inability to take care of himself. He presents with health aide. Per aide, patient has episodes of emotional outbursts and has tendency to elope from health facilities. He is able to stand but is unable to take more than one step due to pain. Patient scoots himself in his wheelchair. He denies weakness, numbness, tingling. Pain is persistent but does improve with pain medications. 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 Past Medical History: Diagnosis Date Alcoholic dementia ([facility]) Arthritis Bone lesion right tibia Convulsions ([facility]) Depression Encephalopathy Epilepsy ([facility]) Myocardial infarct, old Social History Socioeconomic History Marital status: Single Spouse name: Not on file Number of children: Not on file Years of education: Not on file Highest education level: Not on file Occupational History Not on file Tobacco Use Smoking status: Every Day Current packs/day: 0.50 Types: Cigarettes Smokeless tobacco: Not on file Vaping Use Vaping status: Never Used Substance and Sexual Activity Alcohol use: Yes Comment: once amonth Drug use: Yes Frequency: 1.0 times per week Types: Marijuana Sexual activity: Yes Other Topics Concern Not on file Social History Narrative Not on file Social Drivers of Health Financial Resource Strain: Not on file Food Insecurity: Not on file Transportation Needs: No Transportation Needs (06/19/2024) PRAPARE - Transportation Lack of Transportation (Medical): No Lack of Transportation (Non-Medical): No Physical Activity: Not on file Stress: Not on file Social Connections: Not on file Intimate Partner Violence: Not At Risk (06/19/2024) Humiliation, Afraid, Rape, and Kick questionnaire Fear of Current or Ex-Partner: No Emotionally Abused: No Physically Abused: No Sexually Abused: No Housing Stability: Low Risk (06/19/2024) Housing Stability Vital Sign Unable to Pay for Housing in the Last Year: No Number of Times Moved in the Last Year: 0 Homeless in the Last Year: No No past surgical history on file. No current facility-administered medications for this visit. Current Outpatient Medications Medication Sig Dispense Refill aspirin 81 MG EC tablet Take 1 tablet (81 mg) by mouth 2 times daily. 60 tablet 11 oxyCODONE-acetaminoph en (Percocet) 5-325 MG tablet Take 1 tablet by mouth every 6 hours as needed for severe pain (7-10) for up to 7 days. 28 tablet 0 Facility-Administered Medications Ordered in Other Visits Medication Dose Route Frequency Provider Last Rate Last Admin acetaminophen (Tylenol) tablet 650 mg 650 mg Oral q6h Jocelyn Lozada MD 650 mg at 06/20/24 0420 aspirin EC tablet 81 mg 81 mg Oral BID Jocelyn Lozada MD atorvastatin (Lipitor) tablet 80 mg 80 mg Oral Daily Jocelyn Lozada MD 80 mg at 06/19/242033 ceFAZolin in dextrose 4% (Ancef) IVPB 2,000 mg 2,000 mg IntraVENous q8h Jocelyn Lozada MD Stopped at 06/20/24 1642 divalproex (Depakote) EC tablet 250 mg 250 mg Oral TID Jocelyn Lozada MD 250 mg at 06/20/24 1421 fenofibrate (Triglide) tablet 160 mg 160 mg Oral Daily Jocelyn Lozada MD 160 mg at 06/20/24 1420 gabapentin (Neurontin) capsule 300 mg 300 mg Oral Nightly Jocelyn Lozada MD 300 mg at 06/19/24 203 HYDROmorphone (Dilaudid) injection 0.25 mg 0.25 mg IntraVENous q4h PRN Jocelyn Lozada MD Or HYDROmorphone (Dilaudid) injection 0.5 mg 0.5 mg IntraVENous q4h PRN Jocelyn Lozada MD 0.5 mg at 06/20/24 1418 levETIRAcetam (Keppra) tablet 750 mg 750 mg Oral BID Jocelyn Lozada MD 750 mg at 06/20/24 1420 Lidocaine 4 % patch 1 patch 1 patch Topical Daily Jocelyn Lozada MD methocarbamol (Robaxin) tablet 1,000 mg 1,000 mg Oral q8h PRN Jocelyn Lozada MD naloxone (Narcan) injection 0.4 mg 0.4 mg IntraVENous q5 min PRN Jocelyn Lozada MD ondansetron ODT (Zofran-ODT) disinte (more content not included)... Normal [facility] XR CHEST 1 VIEWon 06-19-2024 XR CHEST 1 VIEW Patient Name: [facility] 1975 [id number] Exam Date/Time: 06/19/2024 15:34 Procedure: XR CHEST 1 VIEW Ordering Provider: NELSON SHANNON Reason For Exam: Routine CXR pre-op, unreliable hx and physical EXAM: XR Chest, 1 View CLINICAL INDICATION: Routine CXR pre-op, unreliable hx and physical TECHNIQUE: Frontal view of the chest. COMPARISON: No relevant prior studies available. FINDINGS: LUNGS AND PLEURAL SPACES: No focal consolidation. Mild linear atelectasis or scarring in the left lung base. No pneumothorax. HEART: Unremarkable. No cardiomegaly. MEDIASTINUM: Unremarkable. Normal mediastinal contour. BONES/JOINTS: Mild degenerative change of the spine. No acute fracture. IMPRESSION: No acute cardiopulmonary abnormality. Report Dictated on Electronically Signed By: Bessie Celis MD Electronically Signed Date/Time: 06/19/2024 4:23 PM EST Normal [facility] XR Chest Single viewon 06-19 No acute cardiopulmonary abnormality. Report Dictated on Electronically Signed By: Bessie Celis MD Electronically Signed Date/Time: 06/19/2024 4:23 PM [facility] Patient Name: YONATHAN FERNANDEZ : 1975 Exam Date/Time: 06/19/2024 15:34 Procedure: XR CHEST 1 VIEW Ordering Provider: NELSON SHANNON Reason For Exam: Routine CXR pre-op, unreliable hx and physical EXAM: XR Chest, 1 View CLINICAL INDICATION: Routine CXR pre-op, unreliable hx and physical TECHNIQUE: Frontal view of the chest. COMPARISON: No relevant prior studies available. FINDINGS: LUNGS AND PLEURAL SPACES: No focal consolidation. Mild linear atelectasis or scarring in the left lung base. No pneumothorax. HEART: Unremarkable. No cardiomegaly. MEDIASTINUM: Unremarkable. Normal mediastinal contour. BONES/JOINTS: Mild degenerative change of the spine. No acute fracture. [facility] Bessie Celis M D - 06/19/2024 Patient Name: YONATHAN FERNANDEZ : 1975 Exam Date/Time: 06/19/2024 15:34 Procedure: XR CHEST 1 VIEW Ordering Provider: NELSON SHANNON Reason For Exam: Routine CXR pre-op, unreliable hx and physical EXAM: XR Chest, 1 View CLINICAL INDICATION: Routine CXR pre-op, unreliable hx and physical TECHNIQUE: Frontal view of the chest. COMPARISON: No relevant prior studies available. FINDINGS: LUNGS AND PLEURAL SPACES: No focal consolidation. Mild linear atelectasis or scarring in the left lung base. No pneumothorax. HEART: Unremarkable. No cardiomegaly. MEDIASTINUM: Unremarkable. Normal mediastinal contour. BONES/JOINTS: Mild degenerative change of the spine. No acute fracture. IMPRESSION: No acute cardiopulmonary abnormality. Report Dictated on Electronically Signed By: Bessie Celis MD Electronically Signed Date/Time: 06/19/2024 4:23 PM EST [facility] Radiology Study observation (narrative) [facility] XR Chest Single viewOrdered By: Bessie Celis on 06-19-2024 [facility] Work Phone: PET/CT Tumor Base -Thigh Ini ton 05-01-2024 PET/CT Tumor Base -Thigh Init [facility] [address] [place] [address] [id number] PET/CT Tumor Base -Thigh Init MR#: [id number] Acct: [id number] Name: YONATHAN FERNANDEZ Rep #: [id number] : 1975 M 48 From: Gene Ruiz PCP: Dr. Jared Forde MD Status: [facility] Study: PET/CT Tumor Base -Thigh Init Date of Exam: Exam# [id number] Ordering Dr: Jared Forde MD [id number] EXAMINATION: FDG PET-CT INDICATIONS: A 48-year-old male with history of pulmonary nodularity. COMPARISON EXAMINATION: CT of the abdomen and pelvis dated 02/09/24 INDEX LESION SIZE SUV INTERPRETATION Left lower lateral chest wall-rib Consistent with trauma-fracture. TECHNIQUE: Following the intravenous administration of 15.47 mCi of F-18 deoxyglucose via the left hand, multiplanar image acquisitions of the neck, chest, abdomen and pelvis to level of mid thigh, obtained at one hour post radiopharmaceutical administration contemporaneously interpreted with the current CT of the neck, chest, abdomen and pelvis, to level of mid thigh, dated 05/01/[address] of the abdomen and pelvis dated 02/09/24 reveals: BLOOD GLUCOSE LEVEL:?? 83 mg/dl?HEIGHT:?65 inches?WEIGHT : 175 lbs. FINDINGS: HEAD/NECK: There is no evidence of abnormal increased glucose metabolism in the pharyngeal mucosal space, parapharyngeal space, bilateral-lateral and anterior neck, hypopharynx and distribution of the laryngeal structures. The visualized portion of the cerebral cortical-subcortical structures demonstrate symmetric and preserved glucose metabolism. CHEST: There is no quantitative scintigraphic evidence of abnormal increased glucose metabolism within the context of the bilateral hemithorax pulmonary parenchyma, right and left hemithorax pleural interface, mediastinal structures and right-left thoracic perihilum. Pertinent chest CT findings are as follows. There is atherosclerotic calcification defined in the thoracic aorta without evidence of dilatation-aneurysm formation. Coronary arterial calcification is observed. Bilateral axillary and mediastinal soft tissue densities with fatty hilus are non-tracer avid. A non-calcified ovoid density noted in the right lower lung field, right lower lobe is non-glucose avid. ABDOMEN/PELVIS: Normal physiologic distribution of the radiopharmaceutical is apparent in the hepatic and splenic parenchyma, both renal units, bladder and visualized intestinal tract. Diffuse radiopharmaceutical concentration is noted in all four quadrants of the abdomen and pelvis. Pertinent abdomen and pelvis CT findings are as follows. There is atherosclerotic calcification defined in the abdominal aorta without evidence of dilatation-aneurysm formation. Abdominal-pelvic arterial calcification is observed. Quantitatively insignificant increased tracer uptake is noted in the left adrenal gland with a calculated maximal standard uptake value of 1.8. Right and left inguinal soft tissue densities with fatty hilus are ametabolic. SKELETAL: Increased tracer distribution is defined in the left mid lateral chest wall associated with trauma-visualized rib fracture. Degenerative changes are noted in the cervical, thoracic and lumbar spine without evidence of increased radiopharmaceutical concentration. PET/PET/CT Tumor Base -Thigh Init IMPRESSION: 1. NEGATIVE EXAMINATION. There is no definitive quantitative scintigraphic evidence of viable neoplasm. 2. Enhanced tracer uptake noted in the left lateral chest wall-rib is commensurate with activated leukocytes associated with trauma-fracture. (Rachid et al, [employer] 13:755, 2002). 3. Meticulous attention paid to the right lower posterior lung zone, right lower lobe demonstrates no evidence of increased tracer uptake to correlate with a non-calcified density defined on CT of the chest dated 05/01/24. 4. Metabolic, morphologic stability may be ensured in the right lower lung field pulmonary density with repeat CT of the thorax and/or FDG PET-CT imaging in 3-6 months if clinically indicated. Electronic Signature Gene Soto D.O. Accurate Quantification of SUVs for this report are calculated using the exclusive [employer]. (U.S. Patent No. [phone], 674, 983 B2 [phone] [place] patent [phone]). Standardization and correction of the FDG SUV metric via ACCU[employer] technology allow for vendor non-specific objective quantitative examination comparison and optimization of the sensitivity and specificity of the FDG PET-CT examination. [email or web address] [email or web address]/ [email or web address] Electronically Signed: Gene Soto DO at 21:56 EST , (more content not included)... Normal [facility] 36 03-23-2024 36 JAG- snf sending cd in mail with xray and MRI of right knee. Patient in facility. In a wheelchair, will have assistance at the time of the appointment. Normal [facility] Abdomen/Pelvis W IV Cont ONL Yon 02-09-2024 Abdomen/Pelvis W IV Cont ONLY [facility] [address] [place], [place] [id number] Abdomen/Pelvis W IV Cont ONLY MR#: [id number] Acct: [id number] Name: YONATHAN FERNANDEZ Rep #: [id number] : 1975 M 48 From: Zain reynolds MD PCP: Dr. Jared Forde MD Status: DEP ER Study: Abdomen/Pelvis W IV Cont ONLY Date of Exam: Exam# [id number] Ordering Dr: Nav Amanda DO ADDENDUM by Zain Arevalo MD on 02/16/24 at 1653 ======== ADDENDUM ======== [id number] 1.2 cm pulmonary nodule in the right lung base. Per Fleischner criteria, Recommend follow-up chest CT in 3 months, PET/CT and/or biopsy. Electronically Signed: Zain Arevalo MD at 16:53 EDT , 02/16/24 1653 Date cc: Dr. Nav Amanda DO; Dr. Jared Forde MD * Signed ADDENDUM by Zain Arevalo MD on 02/16/[address]/Abdomen/Pelvis W IV Cont ONLY IMPRESSION: undefined 02/16/24 1700 Date cc: Dr. Nav Amanda DO; Dr. Jared Forde MD * Signed [id number] INDICATION: LUQ pain EXAMINATION: CT Abdomen And Pelvis W/ Contrast Injection TECHNIQUE: Helically acquired images were obtained of the abdomen and pelvis after IV contrast. A radiation dose optimization technique was used for this scan. IV Contrast dosage and agent: IV 100mL [id number] Oral contrast: None. COMPARISON: None. FINDINGS: Visualized lung bases: Unremarkable Liver: 1.2 cm pulmonary nodule in the right lung base. Gallbladder: Unremarkable Spleen: Unremarkable Pancreas: Unremarkable Adrenal Glands: Unremarkable Kidneys: Unremarkable Vasculature: Moderate aortoiliac atherosclerotic disease. GI Tract: Scattered colonic diverticula. Circumferential wall thickening of several loops of small bowel. Lymphadenopathy: None Peritoneum: No ascites. Bladder: Unremarkable Reproductive organs: Unremarkable Bones/Soft tissues: There are diffuse degenerative changes of the spine. Age-indeterminate mild compression fracture of L1. CT/Abdomen/Pelvis W IV Cont ONLY IMPRESSION: Findings suspicious for infectious versus inflammatory enterocolitis. 1.2 cm pulmonary nodule in the right lung base. Recommend follow-up chest CT in 3 months, PET/CT and/or biopsy. Age-indeterminate mild compression fracture of L1. Electronically Signed: Zain Arevalo MD at 20:25 EDT , CC: Dr. Nav Amanda DO; Dr. Jared Forde MD Oracle Forms Developer: Signed Normal [facility] Basic Metabolic Profile (BMP )on 02-09-2024 BUN/CRE 15.5 RATIO Normal 10-20 [facility] Comment on above: Performed By: #### L 500.2500, L100.0100 #### [facility] [address] [place], [place], [address] CA,Total 9.5 mg/dL Normal 8.5-10.1 [facility] Comment on above: Performed By: #### L 500.2500, L100.0100 #### [facility] [address] [place], [address] Chloride [Moles/Vol] 106 mmol/L Normal 98-107 [facility] Comment on above: Performed By: #### L 500.2500, L100.0100 #### [facility] [address] [place], [address] CO2 [Moles/Vol] 24.0 mmol/L Normal 21.0-32.0 [facility] Comment on above: Performed By: #### L 500.2500, L100.0100 #### [facility] [address] [place], [address] Creatinine [Mass/Vol] 1.03 mg/dL Normal 0.70-1.30 [facility] Comment on above: Result Comment: The validity of the calculated GFR GFRAA in patients over 70 years has not been determined. Clinical correlation is essential. Performed By: #### L 500.2500, L100.0100 #### [facility] [address] [place], [address] ECRCL 86.50 ml/min Normal [facility] Comment on above: Performed By: #### L 500.2500, L100.0100 #### [facility] [address] [place], [address] EST GFR - AA 98 mL/min Normal >60 [facility] Comment on above: Result Comment: Afri can Somali GFR Calc Performed By: #### L 500.2500, L100.0100 #### [facility] [address] [place], [address] GAP 9 Normal 5-15 [facility] Comment on above: Performed By: #### L 500.2500, L100.0100 #### [facility] [address] [place], [address] GFR/1.73 sq M.predicted among non-blacks MDRD (S/P/Bld) [Vol rate/Area] 81 mL/min/{1.73_m2} Normal >60 [facility] Comment on above: Result Comment: Non- GFR Calc Performed By: #### L 500.2500, L100.0100 #### [facility] [address] [place], [address] Glucose [Mass/Vol] 96 mg/dL Normal 74-106 [facility] Comment on above: Performed By: #### L 500.2500, L100.0100 #### [facility] [address] [place], [address] Potassium [Moles/Vol] 4.1 mmol/L Normal 3.5-5.1 [facility] Comment on above: Performed By: #### L 500.2500, L100.0100 #### [facility] [address] [place], [address] Sodium [Moles/Vol] 139 mmol/L Normal 136-145 [facility] Comment on above: Performed By: #### L 500.2500, L100.0100 #### [facility] [address] [place], [address] Urea nitrogen [Mass/Vol] 16 mg/dL Normal 7-18 [facility] Comment on above: Performed By: #### L 500.2500, L100.0100 #### [facility] [address] [place], [address] CBC W/Diff, Automatedon 01-28 Absolute Lymph 3.02 X10 3/uL Normal 0.83-4.51 [facility] Comment on above: Performed By: #### L 500.2500, L100.0100 #### [facility] [address] [place], [address] Absolute Neut 8.6 X10 3/uL High 2.0-7.7 [facility] Comment on above: Performed By: #### L 500.2500, L100.0100 #### [facility] [address] [place], [address] Basophils/100 WBC (Bld) 0.4 % Normal 0-1 [facility] Comment on above: Performed By: #### L 500.2500, L100.0100 #### [facility] [address] [place], [address] Eosinophils/100 WBC (Bld) 2.5 % Normal 0-5 [facility] Comment on above: Performed By: #### L 500.2500, L100.0100 #### [facility] [address] [place], [address] Erythrocyte distribution width (RBC) [Ratio] 13.0 % Normal 11.6-14.6 [facility] Comment on above: Performed By: #### L 500.2500, L100.0100 #### [facility] [address] [place], [address] Hematocrit (Bld) [Volume fraction] 46.3 % Normal 40-54 [facility] Comment on above: Performed By: #### L 500.2500, L100.0100 #### [facility] [address] [place], [address] Hemoglobin (Bld) [Mass/Vol] 15.2 g/dL Normal 13.0-16.5 [facility] Comment on above: Performed By: #### L 500.2500, L100.0100 #### [facility] [address] [place], [address] IG% 0.600 Normal 0.0-0.9 [facility] Comment on above: Result Comment: IG% - Immature Granulocytes (promyelocytes, myelocytes and metamyelocytes) > 1% indicates that a LEFT SHIFT is Present. Performed By: #### L 500.2500, L100.0100 #### [facility] [address] [place], [address] Lymphocytes/100 WBC (Bld) 22.5 % Normal 19-41 [facility] Comment on above: Performed By: #### L 500.2500, L100.0100 #### [facility] [address] [place], [address] MCH (RBC) [Entitic mass] 31.1 pg Normal 27.0-32.0 [facility] Comment on above: Performed By: #### L 500.2500, L100.0100 #### [facility] [address] [place], [address] MCHC (RBC) [Mass/Vol] 32.8 g/dL Normal 32-36 [facility] Comment on above: Performed By: #### L 500.2500, L100.0100 #### [facility] [address] [place], [address] MCV (RBC) [Entitic vol] 94.9 fL High 80-94 [facility] Comment on above: Performed By: #### L 500.2500, L100.0100 #### [facility] [address] [place], [address] Monocytes/100 WBC (Bld) 9.8 % Normal 0-10 [facility] Comment on above: Performed By: #### L 500.2500, L100.0100 #### [facility] [address] [place], [address] Neutrophils/100 WBC (Bld) 64.2 % Normal 47-70 [facility] Comment on above: Performed By: #### L 500.2500, L100.0100 #### [facility] [address] [place], [address] Nucleated RBC (Bld) [#/Vol] 0 10*3/uL Normal 0-5 [facility] Comment on above: Performed By: #### L 500.2500, L100.0100 #### [facility] [address] [place], [address] Platelet mean volume (Bld) [Entitic vol] 10.6 fL Normal 6.2-12.0 [facility] Comment on above: Performed By: #### L 500.2500, L100.0100 #### [facility] [address] [place], [address] Platelets (Bld) [#/Vol] 369 10*3/uL Normal 150-450 [facility] Comment on above: Performed By: #### L 500.2500, L100.0100 #### [facility] [address] [place], [address] RBC (Bld) [#/Vol] 4.88 10*6/uL Normal 4.6-6.2 [facility] Comment on above: Performed By: #### L 500.2500, L100.0100 #### [facility] [address] [place], [address] RDW SD 45.7 fl High 35.1-43.9 [facility] Comment on above: Performed By: #### L 500.2500, L100.0100 #### [facility] [address] [place], [address] WBC (Bld) [#/Vol] 13.4 10*3/uL High 4.4-11.0 [facility] Comment on above: Performed By: #### L 500.2500, L100.0100 #### [facility] [address] [place], [address] Emergency Department Summary on 02-09-2024 Emergency Department Summary [facility] Medical Records Department [address] [place] [address] Emergency Department Summary 02/09/24 MR#: [id number] Acct: [id number] Name: YONATHAN FERNANDEZ Rep #: [id number] : 1975 48 From: Nav Amanda DO PCP: Dr. Jared Forde MD Status:REG ER Location: ED HPI History of Present Illness Chief Complaint: Abd Pain Informant: patient and mental health staff Narrative Narrative: 48-year-old male from [facility] presenting to the emergency room with left upper abdominal pain. Patient states symptoms began this morning. It is worse with touch and movement. He had a bowel movement last night. He denies any urinary symptoms or fever. He notes a chronic cough from smoking. He denies any known trauma. He has been eating normally but missed his last meal because he did not want to eat something that would maybe make the pain worse. He believes he feels a lump in the area that hurts. [facility] Medical History (Updated 02/09/24 @ 20:[address] Nav Amanda DO) Ataxic gait PVD (peripheral vascular disease) COPD (chronic obstructive pulmonary disease) Epilepsy Schizoaffective disorder CVA (cerebral vascular accident) TIA (transient ischemic attack) Alcohol abuse Hyperlipidemia Major depression Anxiety HTN (hypertension) Encephalopathy Dementia associated with alcoholism Home Medications ???Medication ???Instructions ???Recorded ???Last Taken ???Type ondansetron 4 mg disintegrating 4 mg PO Q6H PRN PRN Nausea #15 tabs 02/09/24 Unknown Rx tablet Allergy/AdvReac Type Severity Reaction Status Date / Time No Known Allergies Allergy Verified 02/09/24 18:15 Social History Smoking Status: Current every day smoker tobacco type: cigarettes ROS ROS ED Constitutional Constitutional ED: Denies chills, fever(s) or weight loss Eyes Eyes: Denies change in vision or diplopia ENT ENT ED: Denies ear pain, rhinorrhea or sore throat Cardiovascular Cardiovascular: Denies chest pain, orthopnea, palpitations or racing heartbeat Respiratory/Chest Respiratory/Chest: Reports other Details: Chronic cough no change ; Denies dyspnea or orthopnea Gastrointestinal Gastrointestinal: Reports abdominal pain; Denies constipation, diarrhea, nausea or vomiting Genitourinary Genitourinary ED: Denies dysuria, hematuria or urinary frequency Musculoskeletal Musculoskeletal: Denies arthralgias or myalgias Integumentary Denies abscess or rash Neurologic Neurologic: Denies headache(s) or weakness Psychiatric Psychiatric: Denies anxiety, depression, suicidal ideation or suicidal thoughts Endocrine Endocrinology: Denies polydipsia, polyphagia or polyuria Allergic/Immunologic Allergic/Immunologic ED: Denies mouth swelling, tongue swelling or urticaria EXAM Physical Exam Const Vital Signs: 02/09/24 18:13 02/09/24 20:13 Temperature 97 F L Temperature Source Temporal Pulse Rate 77 69 Respiratory Rate 18 18 Blood Pressure 118/80 142/79 H Blood Pressure Mean 92 100 Pulse Ox 95 96 Oxygen Delivery Method Room Air Room Air Positive well nourished and well developed General Appearance ED: well developed HEENT Reports normocephalic, head/scalp atraumatic and moist mucous membranes Eyes PERRL and EOMs intact bilaterally Neck no lymphadenopathy, supple and no JVD Chest Wall Chest Narrative: Patient is tender to palpation not in the left upper quadrant of the abdomen but more over the lower lateral ribs on the left side. I do not appreciate ecchymosis or rash. No crepitance or subcutaneous emphysema. Resp normal respiratory effort and clear to auscultation bilaterally Cardio regular rate, regular rhythm and no murmurs GI normal to inspection, nondistended, normoactive bowel sounds and non-tender Palpation: soft Back/Spine no CVA tenderness and normal ROM Extremity normal to inspection General Extremety ED: Negative for edema General Extremity: Negative for edema Neuro oriented x3 and CN's II-XII intact bilaterally Sensorium / Orientation: alert Motor Exam: strength 5/5 throughout Psych mental status grossly normal Mood Affect: Negative for depressed or tearful Skin no rashes or lesions noted and no wounds MDM MDM MDM Narrative Medical decision making narrative: Differential diagnosis would include but not limited to pneumonia splenic infarct renal infarct rib injury rib colitis gastroenteritis White count 13.4 hemoglobin 15.2 and a platelet count of 369. Creatinine 1.03 BUN is [address] of the abdomen/pelvis was and some bowel. I do not see anything obvious to fully explain his pain. He can write for some Zofran should he develop vomiting. He may be experiencing diarrhea given the loops of sma (more content not included)... Normal [facility] Urinalysis, Completeon 02-08 AMORPHOUS 2+ Normal [facility] Comment on above: Order Comment: CLEAN CATCH Performed By: #### L [id number] #### [facility] [address] [place], [address] BACTERIA 1+ /hpf Normal None Seen [facility] Comment on above: Order Comment: CLEAN CATCH Performed By: #### L [id number] #### [facility] [address] [place], [address] BILIRUBIN URINE Negative Normal Negative [facility] Comment on above: Order Comment: CLEAN CATCH Performed By: #### L [id number] #### [facility] [address] [place], [address] Clarity (U) Sl. Cloudy Normal Clear [facility] Comment on above: Order Comment: CLEAN CATCH Performed By: #### L [id number] #### [facility] [address] [place], [address] Color (U) Yellow Normal Yellow [facility] Comment on above: Order Comment: CLEAN CATCH Performed By: #### L [id number] #### [facility] [address] [place], [address] GLUCOSE, UR Normal Normal Normal [facility] Comment on above: Order Comment: CLEAN CATCH Performed By: #### L [id number] #### [facility] [address] [place], [address] KETONE UR Negative Normal Negative [facility] Comment on above: Order Comment: CLEAN CATCH Performed By: #### L [id number] #### [facility] [address] [place], [address] LEUK ESTERASE Negative Normal Negative [facility] Comment on above: Order Comment: CLEAN CATCH Performed By: #### L [id number] #### [facility] [address] [place], [address] Nitrite Ql (U) Negative Normal Negative [facility] Comment on above: Order Comment: CLEAN CATCH Performed By: #### L [id number] #### [facility] [address] [place], [address] OCCULT BLOOD-UR Negative Normal Negative [facility] Comment on above: Order Comment: CLEAN CATCH Performed By: #### L [id number] #### [facility] [address] [place], [address] pH UR 7.0 Normal 5.0 - 8.0 [facility] Comment on above: Order Comment: CLEAN CATCH Performed By: #### L [id number] #### [facility] [address] [place], [address] PROT DIPSTX Negative Normal Negative [facility] Comment on above: Order Comment: CLEAN CATCH Performed By: #### L [id number] #### [facility] [address] [place], [address] SP.GR. DIPSTX 1.010 Normal 1.002-1.030 [facility] Comment on above: Order Comment: CLEAN CATCH Performed By: #### L [id number] #### [facility] [address] [place], [address] UROBILI Normal Normal Normal [facility] Comment on above: Order Comment: CLEAN CATCH Performed By: #### L [id number] #### [facility] [address] [place], [address] EPI,SQUAMOUS 0 SEEN Normal 0-5 [facility] Comment on above: Order Comment: CLEAN CATCH Performed By: #### L [id number] #### [facility] [address] [place], [address] Mucus Ql (Urine sed) 0 SEEN Normal [facility] Comment on above: Order Comment: CLEAN CATCH Performed By: #### L [id number] #### [facility] [address] [place], [address] RBC 0 SEEN Normal 0-5 [facility] Comment on above: Order Comment: CLEAN CATCH Performed By: #### L [id number] #### [facility] [address] [place], [address] WBC 0 SEEN Normal 0-5 [facility] Comment on above: Order Comment: CLEAN CATCH Performed By: #### L [id number] #### [facility] [address] [place], [address] Lower Ext Joint Only (Routin e)on 02-03-2024 Lower Ext Joint Only (Routine) [facility] [address] [place] [address] Lower Ext Joint Only (Routine) MR#: [id number] Acct: [id number] Name: YONATHAN FERNANDEZ Rep #: [id number] : 1975 M 48 From: Niles Rehman MD PCP: Dr. Jared Forde MD Status: REG CLI Study: Lower Ext Joint Only (Routine) Date of Exam: 0 02/03/24 Exam# [id number] Ordering Dr: Jared Forde MD [id number] STUDY: MRI RIGHT KNEE REASON FOR EXAM: Male, 48 years old. Right knee pain for 6 months. TECHNIQUE: Standardized fat and water weighted pulse sequences were obtained in all 3 orthogonal planes. COMPARISON: None. FINDINGS: There is a well-defined lobulated bone lesion in the epiphysis/metaphysis of the lateral tibial plateau, with fairly homogeneous intermediate T1 and high T2 signal, overall measuring 4.1 cm AP, 5.7 cm transverse, and 4.9 cm craniocaudad. There is cortical thinning of the posterolateral aspect of the tibial metaphysis, but no definite cortical breakthrough or pathologic fracture. Normal medial meniscus. Normal hyaline cartilage of the medial femorotibial compartment. Normal medial femoral condyle and tibial plateau. Normal medial collateral ligamentous complex (MCL). Normal distal semimembranosus, gracilis and semitendinosus tendons. Normal lateral meniscus. Normal hyaline cartilage of the lateral femorotibial compartment. Normal lateral femoral condyle. Normal proximal tibiofibular articulation. Normal lateral collateral (fibular) ligament. Normal popliteus tendon. Normal biceps femoris tendon. Normal anterior cruciate ligament (ACL). Normal posterior cruciate ligament (PCL). Normal congruent patellofemoral articulation. Normal hyaline cartilage of the patellofemoral compartment. Normal medial and lateral patellar retinaculum. Normal quadriceps tendon. Normal patellar tendon. Normal Hoffa''s fat pad. There is a tiny joint effusion. There is a tiny popliteal cyst. There is minimal subcutaneous soft tissue edema along the anterior aspect of the knee. MRI/Lower Ext Joint Only (Routine) IMPRESSION: Nonspecific 4.1 x 5.7 x 4.9 cm well-defined lobulated bone lesion in the epiphysis/metaphysis of the lateral tibial plateau. Cortical thinning, but no definite cortical breakthrough or pathologic fracture. The differential diagnosis includes but is not limited to: Giant cell tumor, chondromyxoid fibroma, chondrosarcoma, osteosarcoma, and metastasis/multiple myeloma. Biopsy/excision would be required to establish the definitive histological diagnosis. Tiny joint effusion with a tiny popliteal cyst. Minimal subcutaneous soft tissue edema along the anterior aspect of the knee. No discrete meniscal tear or acute ligamentous injury. Electronically Signed: Niles Rehman MD at 13:49 EDT Reading Location ID and State: [facility] / [place] , Service support , CC: Dr. Jared Forde MD [employer] Forms Developer: Signed Normal [facility] VALPROIC ACID LEVEL, TOTALon 02-16-2022 VALPROATE (UG/ML) IN SER/PLAS 71.6 ug/mL Normal 50-100 [facility] Comment on above: Result Comment: GREATER THAN 200 uG/mL COULD BE TOXIC. Performed By: #### L [id number] #### [facility] [address] [place], [place] [address] BASIC METABOLIC PANELon 09- ANION GAP IN SER/PLAS 13.4 unit/s Normal 8.0-22.0 [facility] Comment on above: Performed By: #### L [id number] #### [facility] [address] [place] [address] [facility] Calcium [Mass/Vol] 9.1 mg/dL Normal 8.7-10.4 [facility] Comment on above: Performed By: #### L [id number] #### [facility] [address] [place] [address] [facility] Chloride [Moles/Vol] 104 mmol/L Normal 99-109 [facility] Comment on above: Performed By: #### L [id number] #### [facility] [address] [place], [place] [address] CO2 [Moles/Vol] 27 mmol/L Normal 20-31 [facility] Comment on above: Performed By: #### L [id number] #### [facility] [address] [place] [address] [place] Creatinine [Mass/Vol] 0.8 mg/dL Normal 0.7-1.3 [facility] Comment on above: Performed By: #### L [id number] #### [facility] [address] [place] [address] [place] GLOMERULAR FILTRATION RATE ML/MIN/1.73 SQ M.PREDICTED 109.2 mL/min/1.73m*2 Normal [facility] Comment on above: Result Comment: CALCULATION BASED ON THE CHRONIC KIDNEY DISEASE EPIDEMIOLOGY COLLABORATION (CKD-EPI) EQUATION REFIT WITHOUT ADJUSTMENT FOR RACE. GFR LESS THAN 60 mL/min/1.73m2: SUGGESTIVE OF CHRONIC KIDNEY DISEASE. GFR LESS THAN 15 mL/min/1.73m2: SUGGESTIVE OF END STAGE RENAL DISEASE. Performed By: #### L [id number] #### [facility] [address] [place] [address] [place] Glucose [Mass/Vol] 103 mg/dL Normal 74-106 [facility] Comment on above: Result Comment: NOTE IF THIS IS A FASTING SPECIMEN THE FOLLOWING RANGES APPLY: NORMAL 70 TO 99 mg/dL PREDIABETIC 100 TO 125 mg/dL DIABETIC >= 126 mg/dL Performed By: #### L [id number] #### [facility] [address] OSMOLALITY (MOSM/KG) OF SER/PLAS BY CALCULATION 282 mosm/kg Normal 275-305 [facility] Comment on above: Performed By: #### L [id number] #### [facility] [address] [place] [id number] Potassium [Moles/Vol] 4.4 mmol/L Normal 3.6-5.1 [facility] Comment on above: Performed By: #### L [id number] #### [facility] [address] [place] [address] Sodium [Moles/Vol] 140 mmol/L Normal 132-146 [facility] Comment on above: Performed By: #### L [id number] #### [facility] [address] [place] [address] Urea nitrogen [Mass/Vol] 19 mg/dL Normal 9-23 [facility] Comment on above: Performed By: #### L [id number] #### [facility] [address] [place] [address] [place] UREA NITROGEN/CREATININE (MASS RATIO) IN SER/PLAS 23.8 unit/s High 6.0-20.0 [facility] Comment on above: Performed By: #### L [id number] #### [facility] [address] [place] [address] [place] BASIC METABOLIC PANELon 01-28 ANION GAP IN SER/PLAS 12.2 unit/s Normal 8.0-22.0 [facility] Comment on above: Performed By: #### L [id number] #### [facility] [address] [place] [address] [place] Calcium [Mass/Vol] 9.1 mg/dL Normal 8.7-10.4 [facility] Comment on above: Performed By: #### L [id number] #### [facility] [address] [place] [address] [place] Chloride [Moles/Vol] 108 mmol/L Normal 99-109 [facility] Comment on above: Performed By: #### L [id number] #### [facility] [address] [place] [address] [facility] CO2 [Moles/Vol] 24 mmol/L Normal 20-31 [facility] Comment on above: Performed By: #### L [id number] #### [facility] [address] [place] [address] [place] Creatinine [Mass/Vol] 0.9 mg/dL Normal 0.7-1.3 [facility] Comment on above: Performed By: #### L [id number] #### [facility] [address] [place] [address] [place] GLOMERULAR FILTRATION RATE ML/MIN/1.73 SQ M.PREDICTED 105.4 mL/min/1.73m*2 Normal [facility] Comment on above: Result Comment: CALCULATION BASED ON THE CHRONIC KIDNEY DISEASE EPIDEMIOLOGY COLLABORATION (CKD-EPI) EQUATION REFIT WITHOUT ADJUSTMENT FOR RACE. GFR LESS THAN 60 mL/min/1.73m2: SUGGESTIVE OF CHRONIC KIDNEY DISEASE. GFR LESS THAN 15 mL/min/1.73m2: SUGGESTIVE OF END STAGE RENAL DISEASE. Performed By: #### L [id number] #### [facility] [address] [place] [address] [place] Glucose [Mass/Vol] 81 mg/dL Normal 74-106 [facility] Comment on above: Result Comment: NOTE IF THIS IS A FASTING SPECIMEN THE FOLLOWING RANGES APPLY: NORMAL 70 TO 99 mg/dL PREDIABETIC 100 TO 125 mg/dL DIABETIC >= 126 mg/dL Performed By: #### L [id number] #### [facility] [address] OSMOLALITY (MOSM/KG) OF SER/PLAS BY CALCULATION 281 mosm/kg Normal 275-305 [facility] Comment on above: Performed By: #### L [id number] #### [facility] [address] [place], [place] [address] Potassium [Moles/Vol] 4.2 mmol/L Normal 3.6-5.1 [facility] Comment on above: Performed By: #### L [id number] #### [facility] [address] [place] [address] [place] Sodium [Moles/Vol] 140 mmol/L Normal 132-146 [facility] Comment on above: Performed By: #### L [id number] #### [facility] [address] [place] [address] [place] Urea nitrogen [Mass/Vol] 21 mg/dL Normal 9-23 [facility] Comment on above: Performed By: #### L [id number] #### [facility] [address] [place] [address] [place] UREA NITROGEN/CREATININE (MASS RATIO) IN SER/PLAS 23.3 unit/s High 6.0-20.0 [facility] Comment on above: Performed By: #### L [id number] #### [facility] [address] [place], [place] [address] POCT GLUCOSE METERon 022 Glucose [Mass/Vol] 98 mg/dL Normal 74-118 [facility] Comment on above: Result Comment: ACCE PT RESULTS Performed By: #### L [id number] #### [facility] [address] [place] [address] CBC WITH AUTO DIFFERENTIALon 02-09-2022 Basophils (Bld) [#/Vol] 0.0 10*3/uL Normal 0.0-0.1 [facility] Comment on above: Performed By: #### L [id number] #### [facility] [address] [place] [address] Basophils/100 WBC (Bld) 0.4 % Normal 0.0-1.0 [facility] Comment on above: Performed By: #### L [id number] #### [facility] [address] [place] [address] Eosinophils (Bld) [#/Vol] 0.3 10*3/uL Normal 0.1-0.3 [facility] Comment on above: Performed By: #### L [id number] #### [facility] [address] [place] [address] Eosinophils/100 WBC (Bld) 4.3 % High 1.0-4.0 [facility] Comment on above: Performed By: #### L [id number] #### [facility] [address] [place] [address] Erythrocyte distribution width (RBC) [Ratio] 14.4 % Normal 11.5-14.5 [facility] Comment on above: Performed By: #### L [id number] #### [facility] [address] [place] [address] ERYTHROCYTE MEAN CORPUSCULAR HEMOGLOBIN CONCENTRATION (G/DL) BY AUTOMATED 33.4 g/dL Normal 31.0-37.0 [facility] Comment on above: Performed By: #### L [id number] #### [facility] [address] [place] [address] Hematocrit (Bld) [Volume fraction] 38.8 % Low 41.0-53.0 [facility] Comment on above: Performed By: #### L [id number] #### [facility] [address] [place] [address] Hemoglobin (Bld) [Mass/Vol] 13.0 g/dL Low 13.5-17.5 [facility] Comment on above: Performed By: #### L [id number] #### [facility] [address] [place] [address] Lymphocytes (Bld) [#/Vol] 2.0 10*3/uL Normal 1.0-3.5 [facility] Comment on above: Performed By: #### L [id number] #### [facility] [address] [place] [address] Lymphocytes/100 WBC (Bld) 25.5 % Normal 24.0-44.0 [facility] Comment on above: Performed By: #### L [id number] #### [facility] [address] [place] [address] MCH (RBC) [Entitic mass] 30.4 pg Normal 26.0-34.0 [facility] Comment on above: Performed By: #### L [id number] #### [facility] [address] [place] [address] MCV (RBC) [Entitic vol] 91.0 fL Normal 80.0-100.0 [facility] Comment on above: Performed By: #### L [id number] #### [facility] [address] [place] [address] Monocytes (Bld) [#/Vol] 0.8 10*3/uL Normal 0.1-1.0 [facility] Comment on above: Performed By: #### L [id number] #### [facility] [address] [place] [address] Monocytes/100 WBC (Bld) 10.5 % High 1.0-7.0 [facility] Comment on above: Performed By: #### L [id number] #### [facility] [address] [place] [address] [place] Neutrophils (Bld) [#/Vol] 4.7 10*3/uL Normal 1.6-7.5 [facility] Comment on above: Performed By: #### L [id number] #### [facility] [address] [place] [address] Neutrophils/100 WBC (Bld) 59.3 % Normal 36.0-71.0 [facility] Comment on above: Performed By: #### L [id number] #### [facility] [address] [place] [address] Platelet mean volume (Bld) [Entitic vol] 8.8 fL Normal 7.4-10.4 [facility] Comment on above: Performed By: #### L [id number] #### [facility] [address] [place] [address] PLATELETS (10*3/UL) IN BLOOD AUTOMATED COUNT 276 10*3/uL Normal 140-440 [facility] Comment on above: Performed By: #### L [id number] #### [facility] [address] [place] [address] RBC (Bld) [#/Vol] 4.27 10*6/uL Low 4.50-5.90 [facility] Comment on above: Performed By: #### L [id number] #### [facility] [address] [place] [address] WBC (Bld) [#/Vol] 7.9 10*3/uL Normal 4.0-11.0 [facility] Comment on above: Performed By: #### L [id number] #### [facility] [address] [place] [address] COMPREHENSIVE METABOLIC PANE Konrad 02-09-2022 Albumin [Mass/Vol] 4.6 g/dL Normal 3.2-4.8 [facility] Comment on above: Performed By: #### L [id number] #### [facility] [address] [place] [address] ALBUMIN/GLOBULIN (G/G RATIO) IN SER/PLAS 1.6 unit/s Normal 0.9-2.0 [facility] Comment on above: Performed By: #### L [id number] #### [facility] [address] [place] [address] ALP [Catalytic activity/Vol] 121 U/L Normal 40-121 [facility] Comment on above: Performed By: #### L [id number] #### [facility] [address] [place] [address] ALT [Catalytic activity/Vol] 14 U/L Normal 11-50 [facility] Comment on above: Performed By: #### L [id number] #### [facility] [address] [place] [address] ANION GAP IN SER/PLAS 10.1 unit/s Normal 8.0-22.0 [facility] Comment on above: Performed By: #### L [id number] #### [facility] [address] [place] [address] AST [Catalytic activity/Vol] 15 U/L Normal <=39 [facility] Comment on above: Performed By: #### L [id number] #### [facility] [address] [place] [address] AST/ALT RATIO 1.1 unit/s Normal 0.0-2.0 [facility] Comment on above: Performed By: #### L [id number] #### [facility] [address] [place] [address] Bilirubin [Mass/Vol] 0.5 mg/dL Normal 0.2-1.2 [facility] Comment on above: Performed By: #### L [id number] #### [facility] [address] [place] [address] Calcium [Mass/Vol] 9.1 mg/dL Normal 8.7-10.4 [facility] Comment on above: Performed By: #### L [id number] #### [facility] [address] [place] [address] [place] Chloride [Moles/Vol] 107 mmol/L Normal 99-109 [facility] Comment on above: Performed By: #### L [id number] #### [facility] [address] [place] [address] [place] CO2 [Moles/Vol] 26 mmol/L Normal 20-31 [facility] Comment on above: Performed By: #### L [id number] #### [facility] [address] [place] [address] Creatinine [Mass/Vol] 0.8 mg/dL Normal 0.7-1.3 [facility] Comment on above: Performed By: #### L [id number] #### [address] [place] [address] [facility] Globulin (S) [Mass/Vol] 2.9 g/dL Normal L [facility] Comment on above: Performed By: #### L [id number] #### [place] [address] [place] GLOMERULAR FILTRATION RATE ML/MIN/1.73 SQ M.PREDICTED 109.2 mL/min/1.73m*2 Normal [facility] Comment on above: Result Comment: CALCULATION BASED ON THE CHRONIC KIDNEY DISEASE EPIDEMIOLOGY COLLABORATION (CKD-EPI) EQUATION REFIT WITHOUT ADJUSTMENT FOR RACE. GFR LESS THAN 60 mL/min/1.73m2: SUGGESTIVE OF CHRONIC KIDNEY DISEASE. GFR LESS THAN 15 mL/min/1.73m2: SUGGESTIVE OF END STAGE RENAL DISEASE. Performed By: #### L [id number] #### [address] [address] [facility] Glucose [Mass/Vol] 103 mg/dL Normal 74-106 [facility] Comment on above: Result Comment: NOTE IF THIS IS A FASTING SPECIMEN THE FOLLOWING RANGES APPLY: NORMAL 70 TO 99 mg/dL PREDIABETIC 100 TO 125 mg/dL DIABETIC >= 126 mg/dL Performed By: #### L [id number] #### [address] [place] [address] [place] OSMOLALITY (MOSM/KG) OF SER/PLAS BY CALCULATION 280 mosm/kg Normal 275-305 [facility] Comment on above: Performed By: #### L [id number] #### [facility] [address] [place] [address] [place] Potassium [Moles/Vol] 4.1 mmol/L Normal 3.6-5.1 [facility] Comment on above: Performed By: #### L [id number] #### [facility] [address] [place] [address] [facility] Protein [Mass/Vol] 7.5 g/dL Normal 5.7-8.2 [facility] Comment on above: Performed By: #### L [id number] #### [facility] [address] [place] [address] [facility] Sodium [Moles/Vol] 139 mmol/L Normal 132-146 [facility] Comment on above: Performed By: #### L [id number] #### [facility] [address] [place] [address] [facility] Urea nitrogen [Mass/Vol] 19 mg/dL Normal 9-23 [facility] Comment on above: Performed By: #### L [id number] #### [facility] [address] [place] [address] [place] UREA NITROGEN/CREATININE (MASS RATIO) IN SER/PLAS 23.8 unit/s High 6.0-20.0 [facility] Comment on above: Performed By: #### L [id number] #### [facility] [address] [place] [address] [facility] BASIC METABOLIC PANELon 01-28 ANION GAP IN SER/PLAS 12.7 unit/s Normal 8.0-22.0 [facility] Comment on above: Performed By: #### L [id number] #### [facility] [address] [place] [address] [place] Calcium [Mass/Vol] 8.8 mg/dL Normal 8.7-10.4 [facility] Comment on above: Performed By: #### L [id number] #### [facility] [address] [place] [address] [place] Chloride [Moles/Vol] 106 mmol/L Normal 99-109 [facility] Comment on above: Performed By: #### L [id number] #### [facility] [address] [place] [address] [place] CO2 [Moles/Vol] 26 mmol/L Normal 20-31 [facility] Comment on above: Performed By: #### L [id number] #### [facility] [address] [place] [address] [facility] Creatinine [Mass/Vol] 0.7 mg/dL Normal 0.7-1.3 [facility] Comment on above: Performed By: #### L [id number] #### [facility] [place] [address] [place] GLOMERULAR FILTRATION RATE ML/MIN/1.73 SQ M.PREDICTED 113.7 mL/min/1.73m*2 Normal [facility] Comment on above: Result Comment: CALCULATION BASED ON THE CHRONIC KIDNEY DISEASE EPIDEMIOLOGY COLLABORATION (CKD-EPI) EQUATION REFIT WITHOUT ADJUSTMENT FOR RACE. GFR LESS THAN 60 mL/min/1.73m2: SUGGESTIVE OF CHRONIC KIDNEY DISEASE. GFR LESS THAN 15 mL/min/1.73m2: SUGGESTIVE OF END STAGE RENAL DISEASE. Performed By: #### L [id number] #### [address] [address] [place] Glucose [Mass/Vol] 81 mg/dL Normal 74-106 [facility] Comment on above: Result Comment: NOTE IF THIS IS A FASTING SPECIMEN THE FOLLOWING RANGES APPLY: NORMAL 70 TO 99 mg/dL PREDIABETIC 100 TO 125 mg/dL DIABETIC >= 126 mg/dL Performed By: #### L [id number] #### [facility] [address] [place] [address] [place] OSMOLALITY (MOSM/KG) OF SER/PLAS BY CALCULATION 280 mosm/kg Normal 275-305 [facility] Comment on above: Performed By: #### L [id number] #### [facility] [address] [place] [address] Potassium [Moles/Vol] 3.7 mmol/L Normal 3.6-5.1 [facility] Comment on above: Performed By: #### L [id number] #### [facility] [address] [place] [address] Sodium [Moles/Vol] 141 mmol/L Normal 132-146 [facility] Comment on above: Performed By: #### L [id number] #### [facility] [address] [place] [address] Urea nitrogen [Mass/Vol] 12 mg/dL Normal 9-23 [facility] Comment on above: Performed By: #### L [id number] #### [facility] [address] [place] [address] UREA NITROGEN/CREATININE (MASS RATIO) IN SER/PLAS 17.1 unit/s Normal 6.0-20.0 [facility] Comment on above: Performed By: #### L [id number] #### [facility] [address] [place] [address] CBC WITH AUTO DIFFERENTIALon 02-08-2022 Basophils (Bld) [#/Vol] 0.0 10*3/uL Normal 0.0-0.1 [facility] Comment on above: Performed By: #### L [id number] #### [facility] [address] [place] [address] Basophils/100 WBC (Bld) 0.5 % Normal 0.0-1.0 [facility] Comment on above: Performed By: #### L [id number] #### [facility] [address] [place] [address] [place] Eosinophils (Bld) [#/Vol] 0.4 10*3/uL High 0.1-0.3 [facility] Comment on above: Performed By: #### L [id number] #### [facility] [address] [place] [address] [place] Eosinophils/100 WBC (Bld) 4.2 % High 1.0-4.0 [facility] Comment on above: Performed By: #### L [id number] #### [facility] [address] [place] [address] Erythrocyte distribution width (RBC) [Ratio] 14.9 % High 11.5-14.5 [facility] Comment on above: Performed By: #### L [id number] #### [facility] [address] [place] [address] ERYTHROCYTE MEAN CORPUSCULAR HEMOGLOBIN CONCENTRATION (G/DL) BY AUTOMATED 32.4 g/dL Normal 31.0-37.0 [facility] Comment on above: Performed By: #### L [id number] #### [facility] [address] [place] [address] Hematocrit (Bld) [Volume fraction] 38.0 % Low 41.0-53.0 [facility] Comment on above: Performed By: #### L [id number] #### [facility] [address] [place] [address] Hemoglobin (Bld) [Mass/Vol] 12.3 g/dL Low 13.5-17.5 [facility] Comment on above: Performed By: #### L [id number] #### [address] Lymphocytes (Bld) [#/Vol] 2.4 10*3/uL Normal 1.0-3.5 [facility] Comment on above: Performed By: #### L [id number] #### [facility] [address] [place] [address] Lymphocytes/100 WBC (Bld) 25.1 % Normal 24.0-44.0 [facility] Comment on above: Performed By: #### L [id number] #### [facility] [address] [place] [address] MCH (RBC) [Entitic mass] 29.6 pg Normal 26.0-34.0 [facility] Comment on above: Performed By: #### L [id number] #### [facility] [address] [place] [address] [place] MCV (RBC) [Entitic vol] 91.6 fL Normal 80.0-100.0 [facility] Comment on above: Performed By: #### L [id number] #### [facility] [address] [place] [id number] Monocytes (Bld) [#/Vol] 0.8 10*3/uL Normal 0.1-1.0 [facility] Comment on above: Performed By: #### L [id number] #### [facility] [address] [place] [address] Monocytes/100 WBC (Bld) 8.8 % High 1.0-7.0 [facility] Comment on above: Performed By: #### L [id number] #### [address] Neutrophils (Bld) [#/Vol] 5.9 10*3/uL Normal 1.6-7.5 [facility] Comment on above: Performed By: #### L [id number] #### [facility] [address] [place] [address] Neutrophils/100 WBC (Bld) 61.4 % Normal 36.0-71.0 [facility] Comment on above: Performed By: #### L [id number] #### [address] [id number] Platelet mean volume (Bld) [Entitic vol] 8.7 fL Normal 7.4-10.4 [facility] Comment on above: Performed By: #### L [id number] #### [facility] [address] [place] [address] [place] PLATELETS (10*3/UL) IN BLOOD AUTOMATED COUNT 263 10*3/uL Normal 140-440 [facility] Comment on above: Performed By: #### L [id number] #### [facility] [address] [place] [address] [place] RBC (Bld) [#/Vol] 4.15 10*6/uL Low 4.50-5.90 [facility] Comment on above: Performed By: #### L [id number] #### [facility] [address] [place] [address] WBC (Bld) [#/Vol] 9.5 10*3/uL Normal 4.0-11.0 [facility] Comment on above: Performed By: #### L [id number] #### [facility] [address] [place] [address] AMMONIAon 02-07-2022 AMMONIA (UMOL/L) IN PLASMA 35.7 umol/L High 11.2-35.4 [facility] Comment on above: Performed By: #### L [id number] #### [facility] [address] [place] [address] BILIRUBIN, DIRECTon 02-08-20 BILIRUBIN DIRECT (MG/DL) IN SER/PLAS <0.1 Normal <=0.3 [facility] Comment on above: Performed By: #### L [id number] #### [facility] [address] [place] [address] CBCon 02-07-2022 Erythrocyte distribution width (RBC) [Ratio] 14.9 % High 11.5-14.5 [facility] Comment on above: Performed By: #### L [id number] #### [facility] [address] [place] [address] ERYTHROCYTE MEAN CORPUSCULAR HEMOGLOBIN CONCENTRATION (G/DL) BY AUTOMATED 32.4 g/dL Normal 31.0-37.0 [facility] Comment on above: Performed By: #### L [id number] #### [facility] [address] [place] [address] Hematocrit (Bld) [Volume fraction] 39.6 % Low 41.0-53.0 [facility] Comment on above: Performed By: #### L [id number] #### [facility] [address] [place] [address] Hemoglobin (Bld) [Mass/Vol] 12.8 g/dL Low 13.5-17.5 [facility] Comment on above: Performed By: #### L [id number] #### [facility] [address] [place] [address] MCH (RBC) [Entitic mass] 29.7 pg Normal 26.0-34.0 [facility] Comment on above: Performed By: #### L [id number] #### [facility] [address] [place] [address] MCV (RBC) [Entitic vol] 91.8 fL Normal 80.0-100.[address] [facility] Comment on above: Performed By: #### L [id number] #### [facility] [address] [place] [address] Platelet mean volume (Bld) [Entitic vol] 8.5 fL Normal 7.4-10.4 [facility] Comment on above: Performed By: #### L [id number] #### [facility] [address] [place] [address] PLATELETS (10*3/UL) IN BLOOD AUTOMATED COUNT 275 10*3/uL Normal 140-440 [facility] Comment on above: Performed By: #### L [id number] #### [facility] [address] [place] [address] RBC (Bld) [#/Vol] 4.31 10*6/uL Low 4.50-5.90 [facility] Comment on above: Performed By: #### L [id number] #### [facility] [address] [place] [address] WBC (Bld) [#/Vol] 9.1 10*3/uL Normal 4.0-11.0 [facility] Comment on above: Performed By: #### L [id number] #### [facility] [address] [place] [address] COMPREHENSIVE METABOLIC PANE Konrad 02-07-2022 Albumin [Mass/Vol] 4.3 g/dL Normal 3.2-4.8 [facility] Comment on above: Performed By: #### L [id number] #### [facility] [address] [place] [address] ALBUMIN/GLOBULIN (G/G RATIO) IN SER/PLAS 1.5 unit/s Normal 0.9-2.0 [facility] Comment on above: Performed By: #### L [id number] #### [facility] [address] [place], [place] [address] ALP [Catalytic activity/Vol] 120 U/L Normal 40-121 [facility] Comment on above: Performed By: #### L [id number] #### [facility] [address] [place], [place] [address] ALT [Catalytic activity/Vol] 20 U/L Normal 11-50 [facility] Comment on above: Performed By: #### L [id number] #### [facility] [address] [place] [address] ANION GAP IN SER/PLAS 14.1 unit/s Normal 8.0-22.0 [facility] Comment on above: Performed By: #### L [id number] #### [facility] [address] [place] [id number] AST [Catalytic activity/Vol] 17 U/L Normal <=39 [facility] Comment on above: Performed By: #### L [id number] #### [facility] [address] [place] [address] AST/ALT RATIO 0.9 unit/s Normal 0.0-2.0 [facility] Comment on above: Performed By: #### L [id number] #### [facility] [address] [place] [id number] Bilirubin [Mass/Vol] 0.4 mg/dL Normal 0.2-1.2 [facility] Comment on above: Performed By: #### L [id number] #### [facility] [address] [place] [id number] Calcium [Mass/Vol] 8.9 mg/dL Normal 8.7-10.4 [facility] Comment on above: Performed By: #### L [id number] #### [facility] [address] [place] [id number] Chloride [Moles/Vol] 106 mmol/L Normal 99-109 [facility] Comment on above: Performed By: #### L [id number] #### [facility] [address] CO2 [Moles/Vol] 25 mmol/L Normal 20-31 [facility] Comment on above: Performed By: #### L [id number] #### [facility] [address] [place] [address] Creatinine [Mass/Vol] 0.8 mg/dL Normal 0.7-1.3 [facility] Comment on above: Performed By: #### L [id number] #### [facility] [address] [place] [address] Globulin (S) [Mass/Vol] 2.9 g/dL Normal L [facility] Comment on above: Performed By: #### L [id number] #### [facility] [address] [place] [address] GLOMERULAR FILTRATION RATE ML/MIN/1.73 SQ M.PREDICTED 109.2 mL/min/1.73m*2 Normal [facility] Comment on above: Result Comment: CALCULATION BASED ON THE CHRONIC KIDNEY DISEASE EPIDEMIOLOGY COLLABORATION (CKD-EPI) EQUATION REFIT WITHOUT ADJUSTMENT FOR RACE. GFR LESS THAN 60 mL/min/1.73m2: SUGGESTIVE OF CHRONIC KIDNEY DISEASE. GFR LESS THAN 15 mL/min/1.73m2: SUGGESTIVE OF END STAGE RENAL DISEASE. Performed By: #### L [id number] #### [address] Glucose [Mass/Vol] 99 mg/dL Normal 74-106 [facility] Comment on above: Result Comment: NOTE IF THIS IS A FASTING SPECIMEN THE FOLLOWING RANGES APPLY: NORMAL 70 TO 99 mg/dL PREDIABETIC 100 TO 125 mg/dL DIABETIC >= 126 mg/dL Performed By: #### L [id number] #### [facility] [address] [place] [address] [place] OSMOLALITY (MOSM/KG) OF SER/PLAS BY CALCULATION 282 mosm/kg Normal 275-305 [facility] Comment on above: Performed By: #### L [id number] #### [facility] [address] [place] [address] [facility] Potassium [Moles/Vol] 4.1 mmol/L Normal 3.6-5.1 [facility] Comment on above: Performed By: #### L [id number] #### [facility] [address] [place] [address] [facility] Protein [Mass/Vol] 7.2 g/dL Normal 5.7-8.2 [facility] Comment on above: Performed By: #### L [id number] #### [facility] [address] [place] [address] [facility] Sodium [Moles/Vol] 141 mmol/L Normal 132-146 [facility] Comment on above: Performed By: #### L [id number] #### [facility] [address] [place] [address] [place] Urea nitrogen [Mass/Vol] 15 mg/dL Normal 9-23 [facility] Comment on above: Performed By: #### L [id number] #### [facility] [address] [place] [address] [place] UREA NITROGEN/CREATININE (MASS RATIO) IN SER/PLAS 18.8 unit/s Normal 6.0-20.0 [facility] Comment on above: Performed By: #### L [id number] #### [facility] [address] [place] [address] [place] COVID/FLU-SOFIAon 02-07-2022 SARS-CoV-2 (COVID-19) RNA FRANKLIN+probe Ql (Unsp spec) ESCOBAR SARS ANTIGEN CLINLRR Status = F Presumptive Negative RAPID INFLUENZA A AGN CLINLRR Status = F Negative RAPID INFLUENZA B AGN CLINLRR Status = F Negative Normal Negative [facility] Comment on above: Order Comment: This test has not been FDA cleared or approved; this test has been authorized by the FDA under an Emergency Use Authorization (EUA). Authorization for use is approved until the public health emergency is terminated or the EUA is revoked by the FDA. Performed By: #### L [id number] #### [facility] [address] [place] [id number] [facility] CT HEAD WO CONTRASTon 2021 CT HEAD WO CONTRAST CT HEAD WO CONTRAST COMPARISON: None available in PACS. TECHNIQUE: Helical axial CT images were obtained through the brain from the skull base to the vertex without contrast. All CT scans at this facility use dose modulation, iterative reconstruction, and weight based dosing when appropriate to reduce radiation dose to as low as reasonably achievable. FINDINGS: VENTRICLES AND SULCI: Age advanced atrophy. Proportionate enlargement of ventricles, cortical sulci, and cisternal spaces. PARENCHYMA: Remote right basal ganglia lacunar infarct. No acute intracranial hemorrhage. No midline shift or herniation. Bartlett-white differentiation appears preserved. EXTRA-AXIAL: Unremarkable. CALVARIUM: Unremarkable. SINUSES: Minimal paranasal sinus polypoid mucosal thickening. SOFT TISSUES: Unremarkable. IMPRESSION: 1. No acute intracranial abnormality. 2. Age advanced cortical atrophy. 3. Remote right basal ganglial lacunar infarct. 4. Minimal paranasal sinus mucosal thickening. Normal [facility] ER TROPONIN 1 HOURon 022 TROPONIN I.CARDIAC (PG/ML) IN SERUM OR PLASMA 5 pg/mL Normal <47 [facility] Comment on above: Result Comment: HIGH SENSITIVITY TROPONIN: Results greater than 47.34 are above the normal range (99th percentile). A change of 20% relative to baseline for values above the normal range is considered significant. Results less than 47.34 are within the normal range. Performed By: #### L [id number] #### [facility] [address] [place] [address] [facility] ER TROPONIN BASELINEon 02-07 TROPONIN I.CARDIAC (PG/ML) IN SERUM OR PLASMA 4 pg/mL Normal <47 [facility] Comment on above: Result Comment: HIGH SENSITIVITY TROPONIN: Results greater than 47.34 are above the normal range (99th percentile). A change of 20% relative to baseline for values above the normal range is considered significant. Results less than 47.34 are within the normal range. Performed By: #### L [id number] #### [facility] [address] [place] [address] PROTIME-INRon 02-07-2022 INR IN PPP BY COAGULATION ASSAY 1.0 unit/s Normal <=5.4 [facility] Comment on above: Result Comment: 2.0-3.0 for Warfarin anticoagulation (levels up to 4.0 may be required in some clinical situations). Performed By: #### L [id number] #### [facility] [address] [place] [address] PROTHROMBIN TIME (PT) IN PPP BY COAGULATION ASSAY 10.8 seconds Normal 9.0-11.5 [facility] Comment on above: Performed By: #### L [id number] #### [facility] [address] [place] [address] TSHon 02-07-2022 THYROTROPIN (MIU/L) IN SER/PLAS 1.24 uIU/mL Normal 0.40-5.40 [facility] Comment on above: Performed By: #### L [id number] #### [facility] [address] [place] [address] VALPROIC ACID LEVEL, TOTALon 02-07-2022 VALPROATE (UG/ML) IN SER/PLAS 23.4 ug/mL Low 50-100 [facility] Comment on above: Result Comment: GREATER THAN 200 uG/mL COULD BE TOXIC. Performed By: #### L [id number] #### [facility] [address] [place] [address] XR CHEST 1 VIEWon 02-07-2022 XR CHEST 1 VIEW XR CHEST 1 VIEW HEART/MEDIASTINUM/HIL A: The heart is normal in size. LUNGS: Minimal left basilar opacity. No pleural effusion or pneumothorax. BONES: No acute skeletal abnormality. LINES/TUBES: None. OTHER FINDINGS: No free subdiaphragmatic air. IMPRESSION: Minimal left basilar infiltrate versus atelectasis. Jonn Villavicencio MD Normal [facility] HEPATIC FUNCTION PANELon Albumin [Mass/Vol] 4.6 g/dL Normal 3.2-4.8 [facility] Comment on above: Performed By: #### L [id number] #### [facility] [address] [place] [address] ALBUMIN/GLOBULIN (G/G RATIO) IN SER/PLAS 1.6 unit/s Normal 0.9-2.0 [facility] Comment on above: Performed By: #### L [id number] #### [facility] [address] [place] [address] ALP [Catalytic activity/Vol] 139 U/L High 40-121 [facility] Comment on above: Performed By: #### L [id number] #### [facility] [address] [place] [address] ALT [Catalytic activity/Vol] 39 U/L Normal 11-50 [facility] Comment on above: Performed By: #### L [id number] #### [facility] [address] [place] [address] AST [Catalytic activity/Vol] 22 U/L Normal <=39 [facility] Comment on above: Performed By: #### L [id number] #### [facility] [address] [place] [address] AST/ALT RATIO 0.6 unit/s Normal 0.0-2.0 [facility] Comment on above: Performed By: #### L [id number] #### [facility] [address] [place] [address] Bilirubin [Mass/Vol] 0.4 mg/dL Normal 0.2-1.2 [facility] Comment on above: Performed By: #### L [id number] #### [facility] [address] [place] [id number] [place] BILIRUBIN DIRECT (MG/DL) IN SER/PLAS <0.1 Normal <=0.3 [facility] Comment on above: Performed By: #### L [id number] #### [facility] [address] [place] [id number] Globulin (S) [Mass/Vol] 2.9 g/dL Normal L [facility] Comment on above: Performed By: #### L [id number] #### [facility] [address] [place] [address] Protein [Mass/Vol] 7.5 g/dL Normal 5.7-8.2 [facility] Comment on above: Performed By: #### L [id number] #### [facility] [address] [place] [address] URINALYSIS WITH MICROSCOPICo n 01-19-2022 BACTERIA (#/HPF) IN URINE None Seen Normal None [facility] Comment on above: Performed By: #### L [id number] #### [facility] [address] [place] [address] BILIRUBIN, TOTAL PRESENCE IN URINE Negative Normal Negative [facility] Comment on above: Performed By: #### L [id number] #### [facility] [address] [place] [address] Clarity (U) Clear Normal Clear [facility] Comment on above: Performed By: #### L [id number] #### [facility] [address] [place] [address] Color (U) Yellow Normal Yellow [facility] Comment on above: Performed By: #### L [id number] #### [facility] [address] [place] [address] Glucose (U) [Mass/Vol] Negative Normal Negative [facility] Comment on above: Performed By: #### L [id number] #### [facility] [address] [place] [address] HEMOGLOBIN PRESENCE IN URINE Negative Normal Negative [facility] Comment on above: Performed By: #### L [id number] #### [facility] [address] [place] [address] HYALINE CASTS (#/HPF) IN URINE SEDIMENT BY MICROSCOPY 0-5 Normal None [facility] Comment on above: Performed By: #### L [id number] #### [facility] [address] [place] [address] Ketones Ql (U) Negative Normal Negative [facility] Comment on above: Performed By: #### L [id number] #### [facility] [address] [place] [address] LEUKOCYTE ESTERASE PRESENCE IN URINE BY TEST STRIP Negative Normal Negative [facility] Comment on above: Performed By: #### L [id number] #### [facility] [address] [place] [address] NITRITE PRESENCE IN URINE Negative Normal Negative [facility] Comment on above: Performed By: #### L [id number] #### [facility] [address] [place] [address] pH (U) 6.0 [pH] Normal 4.5-8.0 [facility] Comment on above: Performed By: #### L [id number] #### [facility] [address] [place] [address] PROTEIN (MG/DL) IN URINE BY TEST STRIP Trace Abnormal Negative [facility] Comment on above: Performed By: #### L [id number] #### [facility] [address] [place] [address] [place] RBC (#/HPF) IN URINE SEDIMENT 0-2 Normal None [facility] Comment on above: Performed By: #### L [id number] #### [facility] [address] [place] [address] Specific gravity (U) [Rel density] 1.025 unit/s Normal [facility] Comment on above: Performed By: #### L [id number] #### [facility] [address] [place] [address] [place] SQUAMOUS EPITHELIAL CELLS (#/HPF) IN URINE SEDIMENT Occasional Normal [facility] Comment on above: Performed By: #### L [id number] #### [facility] [address] [place] [id number] [place] UROBILINOGEN (MG/DL) IN URINE 0.2 mg/dL Normal 0.2 - 1.0 [facility] Comment on above: Performed By: #### L [id number] #### [facility] [address] [place] [id number] [place] WBC (LEUKOCYTE) (#/HPF) IN URINE SEDIMENT 3-5 Normal [facility] Comment on above: Performed By: #### L [id number] #### [facility] [address] URINE CULTUREon 01-19-2022 Bacteria identified Cx Nom (U) CULTURE CLINLRR Status = F 189 ENTEROCOCCUS FAECALIS 3,000 col/ml Enterococcus faecalis Corrected result: Previously reported as Enterococcus on 01/22/2022 at 1321 EDT. 1090 DIPHTHEROIDS 3,000 col/ml Diphtheroids The organism value for this result has been updated. These results have been appended to the previously preliminary verified report. 27 STAPHYLOCOCCUS COAGULASE NEGATIVE 2,000 col/ml Staphylococcus coagulase negative The organism value for this result has been updated. These results have been appended to the previously preliminary verified report. 548 STAPHYLOCOCCUS AUREUS METHICILLIN (OXACILLIN) RESISTANT 1,000 col/ml Methicillin-Resistant Staphylococcus aureus The organism value for this result has been updated. These results have been appended to the previously preliminary verified report. has been updated to reportable. -------- 1 ORGANISM Antibiotic Result Intrp Ampicillin Susc Islt <=2 unit/s S Ciprofloxacin Susc Islt >=8 unit/s R Gentamicin Synergy Susc Islt SYN-Resistant R Streptomycin High Pot Susc IsltSYN-Sensitive S levoFLOXacin Susc Islt >=8 unit/s R Linezolid Susc Islt 2 unit/s S Nitrofurantoin Susc Islt <=16 unit/s S Tetracycline Susc Islt >=16 unit/s R Vancomycin Susc Islt 1 unit/s S -------- 4 ORGANISM Antibiotic Result Intrp DAPTOmycin Islt DANIEL 0.25 unit/s S Gentamicin Susc Islt <=0.5 unit/s S Linezolid Susc Islt 2 unit/s S Nitrofurantoin Susc Islt <=16 unit/s S Oxacillin Susc Islt >=4 unit/s R rifAMPin Susc Islt <=0.5 unit/s S Tetracycline Susc Islt <=1 unit/s S Doxycycline Islt DANIEL <=0.5 unit/s S TMP SMX Susc Islt <=10 unit/s S Vancomycin Susc Islt 1 unit/s S Tigecycline Islt DANIEL <=0.12 unit/s S Susceptible [facility] Comment on above: Performed By: #### L [id number] #### [facility] [address] [place] [address] URINALYSIS WITH MICROSCOPICo n 11-04-2021 BACTERIA (#/HPF) IN URINE None Seen Normal None [facility] Comment on above: Performed By: #### L [id number] #### [facility] [address] [place] [address] BILIRUBIN, TOTAL PRESENCE IN URINE Negative Normal Negative [facility] Comment on above: Performed By: #### L [id number] #### [facility] [address] [place] [address] Clarity (U) Clear Normal Clear [facility] Comment on above: Performed By: #### L [id number] #### [facility] [address] [place] [address] Color (U) Yellow Normal Yellow [facility] Comment on above: Performed By: #### L [id number] #### [facility] [address] [place] [address] Glucose (U) [Mass/Vol] Negative Normal Negative [facility] Comment on above: Performed By: #### L [id number] #### [facility] [address] [place] [address] HEMOGLOBIN PRESENCE IN URINE Negative Normal Negative [facility] Comment on above: Performed By: #### L [id number] #### [facility] [address] [place] [address] HYALINE CASTS (#/HPF) IN URINE SEDIMENT BY MICROSCOPY 0-5 Normal None [facility] Comment on above: Performed By: #### L [id number] #### [facility] [address] [place] [address] [place] Ketones Ql (U) Negative Normal Negative [facility] Comment on above: Performed By: #### L [id number] #### [facility] [address] [place] [address] [place] LEUKOCYTE ESTERASE PRESENCE IN URINE BY TEST STRIP Negative Normal Negative [facility] Comment on above: Performed By: #### L [id number] #### [facility] [address] [place] [address] [place] NITRITE PRESENCE IN URINE Negative Normal Negative [facility] Comment on above: Performed By: #### L [id number] #### [facility] [address] [place] [address] pH (U) 6.0 [pH] Normal 4.5-8.0 [facility] Comment on above: Performed By: #### L [id number] #### [facility] [address] [place] [address] Protein (U) [Mass/Vol] Negative Normal Negative [facility] Comment on above: Performed By: #### L [id number] #### [facility] [address] [place] [address] Specific gravity (U) [Rel density] 1.027 unit/s Normal [facility] Comment on above: Performed By: #### L [id number] #### [facility] [address] [place] [address] [place] UROBILINOGEN (MG/DL) IN URINE 0.2 mg/dL Normal 0.2 - 1.0 [facility] Comment on above: Performed By: #### L [id number] #### [facility] [address] [place] [address] [place] WBC (LEUKOCYTE) (#/HPF) IN URINE SEDIMENT 3-5 Normal None [facility] Comment on above: Performed By: #### L [id number] #### [facility] [address] [place] [address] [place] URINE CULTUREon 11-04-2021 Bacteria identified Cx Nom (U) CULTURE CLINLRR Status = F No growth at 48 hours Normal [facility] Comment on above: Performed By: #### L [id number] #### [facility] [address] [place] [address] URINE CULTUREon 10-29-2021 Bacteria identified Cx Nom (U) CULTURE CLINLRR Status = F 1037 CORYNEBACTERIUM STRIATUM 6,000 col/ml Corynebacterium Striatum 1026 CORYNEBACTERIUM MINUTISSIMUM 6,000 col/ml Corynebacterium Minutissimum Normal [facility] Comment on above: Performed By: #### L [id number] #### [facility] [address] [place] [address] AMMONIAon 07-20-2021 AMMONIA (UMOL/L) IN PLASMA 25.9 umol/L Normal 11.2-35.4 [facility] Comment on above: Performed By: #### L [id number] #### [facility] [address] [place] [address] CBC WITH AUTO DIFFERENTIALon 07-20-2021 Basophils (Bld) [#/Vol] 0.1 10*3/uL Normal 0.0-0.1 [facility] Comment on above: Performed By: #### L [id number] #### [facility] [address] [place] [address] Basophils/100 WBC (Bld) 1.4 % High 0.0-1.0 [facility] Comment on above: Performed By: #### L [id number] #### [facility] [address] [place] [address] Eosinophils (Bld) [#/Vol] 0.5 10*3/uL High 0.1-0.3 [facility] Comment on above: Performed By: #### L [id number] #### [facility] [address] [place] [address] Eosinophils/100 WBC (Bld) 6.5 % High 1.0-4.0 [facility] Comment on above: Performed By: #### L [id number] #### [facility] [address] [place] [address] Erythrocyte distribution width (RBC) [Ratio] 19.1 % High 11.5-14.5 [facility] Comment on above: Performed By: #### L [id number] #### [facility] [address] [place] [address] ERYTHROCYTE MEAN CORPUSCULAR HEMOGLOBIN CONCENTRATION (G/DL) BY AUTOMATED 33.2 g/dL Normal 31.0-37.0 [facility] Comment on above: Performed By: #### L [id number] #### [facility] [address] [place] [address] Hematocrit (Bld) [Volume fraction] 31.5 % Low 41.0-53.0 [facility] Comment on above: Performed By: #### L [id number] #### [facility] [address] [place] [address] Hemoglobin (Bld) [Mass/Vol] 10.5 g/dL Low 13.5-17.5 [facility] Comment on above: Performed By: #### L [id number] #### [facility] [address] [place] [address] Lymphocytes (Bld) [#/Vol] 1.8 10*3/uL Normal 1.5-3.0 [facility] Comment on above: Performed By: #### L [id number] #### [facility] [address] [place] [address] Lymphocytes/100 WBC (Bld) 25.5 % Normal 24.0-44.0 [facility] Comment on above: Performed By: #### L [id number] #### [facility] [address] [place] [address] MCH (RBC) [Entitic mass] 33.4 pg Normal 26.0-34.0 [facility] Comment on above: Performed By: #### L [id number] #### [facility] [address] [place] [address] MCV (RBC) [Entitic vol] 100.6 fL High 80.0-100.[address] [facility] Comment on above: Performed By: #### L [id number] #### [facility] [address] [place] [address] [place] Monocytes (Bld) [#/Vol] 0.6 10*3/uL Normal 0.1-1.0 [facility] Comment on above: Performed By: #### L [id number] #### [facility] [address] [place] [address] [place] Monocytes/100 WBC (Bld) 8.6 % High 1.0-7.0 [facility] Comment on above: Performed By: #### L [id number] #### [facility] [address] [place] [id number] [facility] Neutrophils (Bld) [#/Vol] 4.2 10*3/uL Normal 1.8-7.0 [facility] Comment on above: Performed By: #### L [id number] #### [facility] [address] [place] [id number] Neutrophils/100 WBC (Bld) 58.0 % Normal 36.0-71.0 [facility] Comment on above: Performed By: #### L [id number] #### [facility] [address] [place] [id number] [place] Platelet mean volume (Bld) [Entitic vol] 8.5 fL Normal 7.4-10.4 [facility] Comment on above: Performed By: #### L [id number] #### [facility] [address] [place] [address] [place] PLATELETS (10*3/UL) IN BLOOD AUTOMATED COUNT 448 10*3/uL High 140-440 [facility] Comment on above: Performed By: #### L [id number] #### [facility] [address] [place] [address] [place] RBC (Bld) [#/Vol] 3.13 10*6/uL Low 4.50-5.90 [facility] Comment on above: Performed By: #### L [id number] #### [facility] [address] [place] [id number] [place] WBC (Bld) [#/Vol] 7.2 10*3/uL Normal 4.5-11.0 [facility] Comment on above: Performed By: #### L [id number] #### [facility] [address] [place] [id number] COMPREHENSIVE METABOLIC PANE Konrad 07-20-2021 Albumin [Mass/Vol] 3.6 g/dL Normal 3.2-4.8 [facility] Comment on above: Performed By: #### L [id number] #### [facility] [address] [place] [address] ALBUMIN/GLOBULIN (G/G RATIO) IN SER/PLAS 1.0 unit/s Normal 0.9-2.0 [facility] Comment on above: Performed By: #### L [id number] #### [facility] [address] [place] [address] ALP [Catalytic activity/Vol] 150 U/L High 40-121 [facility] Comment on above: Performed By: #### L [id number] #### [facility] [address] [place] [address] ALT [Catalytic activity/Vol] 21 U/L Normal 11-50 [facility] Comment on above: Performed By: #### L [id number] #### [facility] [address] [place] [id number] ANION GAP IN SER/PLAS 12.1 unit/s Normal 8.0-22.0 [facility] Comment on above: Performed By: #### L [id number] #### [facility] [address] [place] [id number] AST [Catalytic activity/Vol] 31 U/L Normal <=39 [facility] Comment on above: Performed By: #### L [id number] #### [facility] [address] [place] [id number] AST/ALT RATIO 1.5 unit/s Normal 0.0-2.0 [facility] Comment on above: Performed By: #### L [id number] #### [facility] [address] [place] [id number] Bilirubin [Mass/Vol] 0.4 mg/dL Normal 0.2-1.2 [facility] Comment on above: Performed By: #### L [id number] #### [facility] [address] [place] [id number] [facility] Calcium [Mass/Vol] 8.8 mg/dL Normal 8.7-10.4 [facility] Comment on above: Performed By: #### L [id number] #### [facility] [address] [place] [address] Chloride [Moles/Vol] 103 mmol/L Normal 99-109 [facility] Comment on above: Performed By: #### L [id number] #### [facility] [address] [place] [id number] [facility] CO2 [Moles/Vol] 27 mmol/L Normal 20-31 [facility] Comment on above: Performed By: #### L [id number] #### [facility] [address] [place] [id number] Creatinine [Mass/Vol] 0.9 mg/dL Normal 0.7-1.3 [facility] Comment on above: Performed By: #### L [id number] #### [facility] [address] [place] [id number] Globulin (S) [Mass/Vol] 3.6 g/dL Normal L [facility] Comment on above: Performed By: #### L [id number] #### [facility] [address] [place] [address] GLOMERULAR FILTRATION RATE ML/MIN/1.73 SQ M.PREDICTED 100.6 mL/min/1.73m*2 Normal [facility] Comment on above: Result Comment: GFR LESS THAN 60 mL/min/1.73m2: SUGGESTIVE OF CHRONIC KIDNEY DISEASE. GFR LESS THAN 15 mL/min/1.73m2: SUGGESTIVE OF END STAGE RENAL DISEASE. Performed By: #### L [id number] #### [facility] [address] [place] [id number] [facility] Glucose [Mass/Vol] 86 mg/dL Normal 74-106 [facility] Comment on above: Result Comment: NOTE IF THIS IS A FASTING SPECIMEN THE FOLLOWING RANGES APPLY: NORMAL 70 TO 99 mg/dL PREDIABETIC 100 TO 125 mg/dL DIABETIC >= 126 mg/dL Performed By: #### L [id number] #### [facility] [address] [place], [place] [address] OSMOLALITY (MOSM/KG) OF SER/PLAS BY CALCULATION 273 mosm/kg Low 275-305 [facility] Comment on above: Performed By: #### L [id number] #### [facility] [address] [place] [id number] [facility] Potassium [Moles/Vol] 4.1 mmol/L Normal 3.6-5.1 [facility] Comment on above: Performed By: #### L [id number] #### [facility] [place] [address] [facility] Protein [Mass/Vol] 7.2 g/dL Normal 5.7-8.2 [facility] Comment on above: Performed By: #### L [id number] #### [facility] [address] [place] [address] [facility] Sodium [Moles/Vol] 138 mmol/L Normal 132-146 [facility] Comment on above: Performed By: #### L [id number] #### [facility] [address] [place] [address] [place] Urea nitrogen [Mass/Vol] 8 mg/dL Low 9-23 [facility] Comment on above: Performed By: #### L [id number] #### [facility] [address] [place] [address] [place] UREA NITROGEN/CREATININE (MASS RATIO) IN SER/PLAS 8.9 unit/s Normal 6.0-20.0 [facility] Comment on above: Performed By: #### L [id number] #### [facility] [address] BASIC METABOLIC PANELon 02-0 ANION GAP IN SER/PLAS 10.9 unit/s Normal 8.0-22.0 [facility] Comment on above: Performed By: #### L [id number] #### [facility] [address] Calcium [Mass/Vol] 9.3 mg/dL Normal 8.7-10.4 [facility] Comment on above: Performed By: #### L [id number] #### [facility] [address] [place] [address] Chloride [Moles/Vol] 103 mmol/L Normal 99-109 [facility] Comment on above: Performed By: #### L [id number] #### [facility] [address] [place] [address] CO2 [Moles/Vol] 26 mmol/L Normal 20-31 [facility] Comment on above: Performed By: #### L [id number] #### [facility] [address] [place] [address] Creatinine [Mass/Vol] 0.6 mg/dL Low 0.7-1.3 [facility] Comment on above: Performed By: #### L [id number] #### [facility] [address] [place] [address] GLOMERULAR FILTRATION RATE ML/MIN/1.73 SQ M.PREDICTED 118.9 mL/min/1.73m*2 Normal [facility] Comment on above: Result Comment: GFR LESS THAN 60 mL/min/1.73m2: SUGGESTIVE OF CHRONIC KIDNEY DISEASE. GFR LESS THAN 15 mL/min/1.73m2: SUGGESTIVE OF END STAGE RENAL DISEASE. Performed By: #### L [id number] #### [facility] [address] [place] [address] Glucose [Mass/Vol] 88 mg/dL Normal 74-106 [facility] Comment on above: Result Comment: NOTE IF THIS IS A FASTING SPECIMEN THE FOLLOWING RANGES APPLY: NORMAL 70 TO 99 mg/dL PREDIABETIC 100 TO 125 mg/dL DIABETIC >= 126 mg/dL Performed By: #### L [id number] #### [facility] [address] [place] [address] OSMOLALITY (MOSM/KG) OF SER/PLAS BY CALCULATION 269 mosm/kg Low 275-305 [facility] Comment on above: Performed By: #### L [id number] #### [address] Potassium [Moles/Vol] 3.9 mmol/L Normal 3.6-5.1 [facility] Comment on above: Performed By: #### L [id number] #### [facility] [address] [place] [address] Sodium [Moles/Vol] 136 mmol/L Normal 132-146 [facility] Comment on above: Performed By: #### L [id number] #### [facility] [address] [place] [address] Urea nitrogen [Mass/Vol] 5 mg/dL Low 9-23 [facility] Comment on above: Performed By: #### L [id number] #### [facility] [address] [place] [address] [place] UREA NITROGEN/CREATININE (MASS RATIO) IN SER/PLAS 8.3 unit/s Normal 6.0-20.0 [facility] Comment on above: Performed By: #### L [id number] #### [facility] [address] [place] [address] CBC WITH AUTO DIFFERENTIALon 07-08-2021 Basophils (Bld) [#/Vol] 0.1 10*3/uL Normal 0.0-0.1 [facility] Comment on above: Performed By: #### L [id number] #### [facility] [address] [place] [address] Basophils/100 WBC (Bld) 1.4 % High 0.0-1.[address] [facility] Comment on above: Performed By: #### L [id number] #### [facility] [facility] [address] [place] [address] Eosinophils (Bld) [#/Vol] 0.3 10*3/uL Normal 0.1-0.3 [facility] Comment on above: Performed By: #### L [id number] #### [facility] [address] [place] [address] Eosinophils/100 WBC (Bld) 3.2 % Normal 1.0-4.0 [facility] Comment on above: Performed By: #### L [id number] #### [facility] [address] [place] [address] Erythrocyte distribution width (RBC) [Ratio] 18.8 % High 11.5-14.5 [facility] Comment on above: Performed By: #### L [id number] #### [facility] [address] [place] [address] ERYTHROCYTE MEAN CORPUSCULAR HEMOGLOBIN CONCENTRATION (G/DL) BY AUTOMATED 32.8 g/dL Normal 31.0-37.0 [facility] Comment on above: Performed By: #### L [id number] #### [facility] [address] [place] [address] Hematocrit (Bld) [Volume fraction] 30.4 % Low 41.0-53.0 [facility] Comment on above: Performed By: #### L [id number] #### [facility] [address] [place] [address] [place] Hemoglobin (Bld) [Mass/Vol] 10.0 g/dL Low 13.5-17.5 [facility] Comment on above: Performed By: #### L [id number] #### [facility] [address] [place] [address] Lymphocytes (Bld) [#/Vol] 2.0 10*3/uL Normal 1.5-3.0 [facility] Comment on above: Performed By: #### L [id number] #### [facility] [address] [place] [address] Lymphocytes/100 WBC (Bld) 20.7 % Low 24.0-44.0 [facility] Comment on above: Performed By: #### L [id number] #### [facility] [address] [place] [address] MCH (RBC) [Entitic mass] 34.6 pg High 26.0-34.0 [facility] Comment on above: Performed By: #### L [id number] #### [facility] [address] [place] [address] MCV (RBC) [Entitic vol] 105.6 fL High 80.0-100.[address] [facility] Comment on above: Performed By: #### L [id number] #### [facility] [address] [place] [address] Monocytes (Bld) [#/Vol] 0.9 10*3/uL Normal 0.1-1.0 [facility] Comment on above: Performed By: #### L [id number] #### [facility] [address] [place] [address] Monocytes/100 WBC (Bld) 9.1 % High 1.0-7.0 [facility] Comment on above: Performed By: #### L [id number] #### [facility] [address] [place] [address] Neutrophils (Bld) [#/Vol] 6.3 10*3/uL Normal 1.8-7.0 [facility] Comment on above: Performed By: #### L [id number] #### [facility] [address] [place] [address] Neutrophils/100 WBC (Bld) 65.6 % Normal 36.0-71.0 [facility] Comment on above: Performed By: #### L [id number] #### [facility] [address] [place] [address] Platelet mean volume (Bld) [Entitic vol] 9.8 fL Normal 7.4-10.4 [facility] Comment on above: Performed By: #### L [id number] #### [facility] [place] [address] [facility] PLATELETS (10*3/UL) IN BLOOD AUTOMATED COUNT 582 10*3/uL High 140-440 [facility] Comment on above: Performed By: #### L [id number] #### [facility] [address] [place] [id number] [facility] RBC (Bld) [#/Vol] 2.88 10*6/uL Low 4.50-5.90 [facility] Comment on above: Performed By: #### L [id number] #### [facility] [address] [place] [address] [facility] WBC (Bld) [#/Vol] 9.6 10*3/uL Normal 4.5-11.0 [facility] Comment on above: Performed By: #### L [id number] #### [facility] [address] [place] [address] [facility] VIT B1 WHOLE BLOODon 022 Vit B1 Whole Blood 142 nmol/L Normal 70-180 [facility] Comment on above: Result Comment: INTE RPRETIVE INFORMATION: Vitamin B1, Whole Blood This assay measures the concentration of thiamine diphosphate (TDP), the primary active form of vitamin B1. Approximately 90 percent of vitamin B1 present in whole blood is TDP. Thiamine and thiamine monophosphate, which comprise the remaining 10 percent, are not measured. This test was developed and its performance characteristics determined by [employer]. It has not been cleared or approved by the [place] Food and Drug Administration. This test was performed in a CLIA certified laboratory and is intended for clinical purposes. Performed By: [employer] [address] [place] [id number] Refuse Driver: Mary Abreu MD Performed By: #### 4 [id number] #### [employer] [address] [address] Vitamin B1, whole bloodon [employer] POCT GLUCOSE METERon 022 Glucose [Mass/Vol] 130 mg/dL High 74-118 [facility] Comment on above: Result Comment: ACCE PT RESULTS Performed By: #### P [id number] #### [facility] [address] [place] [address] URINALYSIS WITH MICROSCOPICo n 07-05-2021 BACTERIA (#/HPF) IN URINE Rare Normal None [facility] Comment on above: Performed By: #### L [id number] #### [facility] [address] [place] [address] BILIRUBIN, TOTAL PRESENCE IN URINE Negative Normal Negative [facility] Comment on above: Performed By: #### L [id number] #### [facility] [address] [place] [address] Clarity (U) Turbid Normal Clear [facility] Comment on above: Performed By: #### L [id number] #### [facility] [address] [place] [address] Color (U) Red Normal Yellow [facility] Comment on above: Performed By: #### L [id number] #### [facility] [address] [place] [address] Glucose (U) [Mass/Vol] Negative Normal Negative [facility] Comment on above: Performed By: #### L [id number] #### [facility] [address] [place] [address] HEMOGLOBIN PRESENCE IN URINE Moderate Abnormal Negative [facility] Comment on above: Performed By: #### L [id number] #### [facility] [address] [place] [address] Ketones Ql (U) Negative Normal Negative [facility] Comment on above: Performed By: #### L [id number] #### [facility] [address] [place] [address] [place] LEUKOCYTE ESTERASE PRESENCE IN URINE BY TEST STRIP Moderate Abnormal Negative [facility] Comment on above: Performed By: #### L [id number] #### [facility] [address] [place] [address] [place] NITRITE PRESENCE IN URINE Positive Abnormal Negative [facility] Comment on above: Performed By: #### L [id number] #### [facility] [address] [place] [address] pH (U) 5.0 [pH] Normal 4.5-8.0 [facility] Comment on above: Performed By: #### L [id number] #### [facility] [address] [place] [address] Protein (U) [Mass/Vol] 100 mg/dL Abnormal Negative [facility] Comment on above: Performed By: #### L [id number] #### [facility] [address] [place] [address] RBC (#/HPF) IN URINE SEDIMENT Loaded Abnormal None [facility] Comment on above: Performed By: #### L [id number] #### [facility] [address] [place] [address] Specific gravity (U) [Rel density] 1.024 unit/s Normal [facility] Comment on above: Performed By: #### L [id number] #### [facility] [address] [place] [address] SQUAMOUS EPITHELIAL CELLS (#/HPF) IN URINE SEDIMENT Moderate Abnormal None [facility] Comment on above: Performed By: #### L [id number] #### [facility] [address] [place] [address] UROBILINOGEN (MG/DL) IN URINE 0.2 mg/dL Normal 0.2 - 1.0 [facility] Comment on above: Performed By: #### L [id number] #### [facility] [address] [place] [address] WBC (LEUKOCYTE) (#/HPF) IN URINE SEDIMENT 40-80 Abnormal None [facility] Comment on above: Performed By: #### L [id number] #### [facility] [address] [place] [address] URINE CULTUREon 07-05-2021 Bacteria identified Cx Nom (U) CULTURE CLINLRR Status = F No growth at 48 hours Normal [facility] Comment on above: Performed By: #### L [id number] #### [facility] [address] [place] [address] CBC WITH DIFFERENTIALon 02-0 -2021 ABSOLUTE BASO 0.0 10 3/uL Normal 0.0-0.1 [employer] Comment on above: Performed By: #### 3 [id number] #### [place] [address] ABSOLUTE EOSIN 0.3 10 3/uL Normal 0.1-0.3 [employer] Comment on above: Performed By: #### 3 [id number] #### [place] [address] ABSOLUTE LYMPH 1.5 10 3/uL Normal 1.2-3.3 [employer] Comment on above: Performed By: #### 3 [id number] #### [place] [address] ABSOLUTE MONO 0.7 10 3/uL High 0.2-0.6 [employer] Comment on above: Performed By: #### 3 [id number] #### [place] [address] ABSOLUTE NEUT 6.7 10 3/uL High 2.4-6.6 [employer] Comment on above: Performed By: #### 3 [id number] #### [employer] [place] [id number] Basophils/100 WBC (Bld) 0.4 % Normal G [facility] [employer] Comment on above: Performed By: #### 3 [id number] #### [place] [address] Eosinophils/100 WBC (Bld) 2.7 % Normal [employer] [facility] [employer] Comment on above: Performed By: #### 3 [id number] #### [employer] [place] [id number] Erythrocyte distribution width (RBC) [Ratio] 18.1 % High 11.5-14.5 [employer] Comment on above: Performed By: #### 3 [id number] #### [place] [address] Hematocrit (Bld) [Volume fraction] 31.4 % Low 37.7-51.1 [facility] [employer] [facility] Comment on above: Performed By: #### 3 [id number] #### [place] [address] Hemoglobin (Bld) [Mass/Vol] 10.3 g/dL Low 12.8-17.7 [facility] Comment on above: Performed By: #### 3 [id number] #### [place] [address] IG ABSOLUTE 0.0 10 3/uL Normal 0 [facility] [employer] Comment on above: Performed By: #### 3 [id number] #### [place] [address] IG PERCENT 0.4 % Normal [facility] [employer] Comment on above: Performed By: #### 3 [id number] #### [place] [address] Lymphocytes/100 WBC (Bld) 16.5 % Normal [facility] [employer] Comment on above: Performed By: #### 3 [id number] #### [place] [address] MCH (RBC) [Entitic mass] 34.2 pg Normal 27.0-34.2 [facility] [employer] Comment on above: Performed By: #### 3 [id number] #### [employer] [place] [address] MCHC (RBC) [Mass/Vol] 32.8 g/dL Normal 31.4-36.2 [facility] [employer] [facility] Comment on above: Performed By: #### 3 [id number] #### [employer] [place] [address] MCV (RBC) [Entitic vol] 104.3 fL High 80.6-99.0 [facility] [employer] Comment on above: Performed By: #### 3 [id number] #### [employer] [facility] [place] [address] Monocytes/100 WBC (Bld) 8.0 % Normal G [employer] Comment on above: Performed By: #### 3 [id number] #### [place] [address] Neutrophils/100 WBC (Bld) 72.0 % Normal [employer] Comment on above: Performed By: #### 3 [id number] #### [place] [address] NRBC 0 Normal 0-1 [employer] Comment on above: Performed By: #### 3 [id number] #### [place] [address] PLATELET 345.0 x10 3/uL Normal 150.0-400.0 [employer] Comment on above: Performed By: #### 3 [id number] #### [place] [address] RBC 3.01 x10 6/uL Low 3.70-5.70 [employer] Comment on above: Performed By: #### 3 [id number] #### [place] [address] WBC 9.3 x10 3/uL Normal 4.3-10.3 [employer] Comment on above: Performed By: #### 3 [id number] #### [place] [address] CBC with differentialon 02-0 -2021 Absolute Immature Granulocytes 0.0 0 10 3/uL [employer] Absolute Lymph 1.5 [employer] [facility] [place] 0.7 High [employer] Basophils (Bld) [#/Vol] 0.0 10*3/uL [employer] Basophils/100 WBC (Bld) 0.4 % [facility] [employer] Eosinophils (Bld) [#/Vol] 0.3 10*3/uL [employer] Eosinophils/100 WBC (Bld) 2.7 % [employer] Erythrocyte distribution width (RBC) [Ratio] 18.1 % High 11.5 - 14.5 % [facility] Hematocrit (Bld) [Volume fraction] 31.4 % Low 37.7 - 51.1 % [facility] Hemoglobin (Bld) [Mass/Vol] 10.3 g/dL Low 12.8 - 17.7 g/dL [facility] Immature granulocytes/100 WBC (Bld) 0.4 % [facility] Interpretation and review of laboratory results Abnormal [facility] Lymphocytes/100 WBC (Bld) 16.5 % [facility] MCH (RBC) [Entitic mass] 34.2 pg 27.0 - 34.2 pg [facility] MCHC (RBC) [Mass/Vol] 32.8 g/dL 31.4 - 36.2 g/dl [facility] MCV (RBC) [Entitic vol] 104.3 fL High 80.6 - 99.0 fL [facility] Monocytes/100 WBC (Bld) 8.0 % G [facility] Neutrophils (Bld) [#/Vol] 6.7 10*3/uL High [facility] Neutrophils/100 WBC (Bld) 72.0 % [facility] Platelets (Bld) [#/Vol] 345.0 10*3/uL [facility] RBC (Bld) [#/Vol] 3.01 10*6/uL Low [facility] WBC LM Ql (Sput) 9.3 [facility] Comprehensive metabolic pane konrad 07-04-2021 Albumin [Mass/Vol] 2.9 g/dL Low 3.5 - 5.0 g/dL [facility] Alk Phos 141 U/L High 24 - 126 U/L [facility] ALT [Catalytic activity/Vol] 51 U/L High 4 - 50 U/L [facility] AST [Catalytic activity/Vol] 54 U/L 3 - 55 U/L [facility] Bilirubin [Mass/Vol] 0.6 mg/dL 0.2 - 1 .6 mg/dL [facility] Calcium [Mass/Vol] 8.3 mg/dL Low 8.4 - 10. 4 mg/dL [facility] Chloride [Moles/Vol] 104 mmol/L 96 - 10 9 mmol/L [facility] CO2 [Moles/Vol] 27 mmol/L 22 - 30 mmol/L [facility] Creatinine [Mass/Vol] 0.38 mg/dL Low 0.66 - 1.25 mg/dL [facility] Glucose [Mass/Vol] 107 mg/dL High 65 - 100 mg/dL [facility] Interpretation and review of laboratory results Abnormal [facility] Potassium [Moles/Vol] 4.0 mmol/L 3.6 - 5.1 mmol/L [facility] Protein [Mass/Vol] 6.4 g/dL 6.3 - 8.2 g/dL [facility] Sodium [Moles/Vol] 134 mmol/L Low 135 - 147 mmol/L [facility] Urea nitrogen [Mass/Vol] 3 mg/dL Low 8 - 26 mg/dL [facility] GFRon 07-04-2021 GFR >60 Normal [facility] Comment on above: Result Comment: To e stimate the GFR for Americans, multiply the result provided by 1.21. Population mean GFR = 116 ml/min/1.73 sq.m. for ages 18-29 yrs. The MDRD is validated in individuals 18-70 years of age. It is less accurate in patients with extremes of muscle mass, restriction of dietary protein, ingestion of creatine, extra-renal metabolism of creatinine, or treatment with medications that affect renal tubular creatinine secretion. GFR Categories in Chronic Kidney Disease (CKD) Category: GFR(mL/min/1.73m^2) Interpretation: G1* 90 or greater Normal or high G2* 60-89 Mild decrease G3a 45-59 Mild to moderate decrease G3b 30-44 Moderate to severe decrease G4 15-29 Severe decrease G5 14 or less Kidney failure *G1&G2: In the absence of evidence of kidney damage, neither GFR category G1 nor G2 fulfill the criteria for CKD Kidney Int Suppl.2013;3:1-150 Performed By: #### 3 [id number] #### [address] [address] GLOMERULAR FILTRATION RATEon 07-04-2021 GFR >60 [facility] MAGNESIUMon 07-04-2021 Magnesium [Mass/Vol] 1.8 mg/dL Normal 1.6-2.3 [facility] Comment on above: Performed By: #### 3 [id number] #### [facility] [place] [address] METABOLIC PANELon 07-04-2021 Calcium [Mass/Vol] 8.3 mg/dL Low 8.4-10.4 [facility] Comment on above: Performed By: #### G FR1 #### [employer] [place] [address] ALK PHOS 141 U/L High 24-126 [facility] Comment on above: Performed By: #### G FR1 #### [employer] [place] [address] ALT [Catalytic activity/Vol] 51 U/L High 4-50 [facility] [employer] Comment on above: Performed By: #### G FR1 #### [employer] [place] [address] AST [Catalytic activity/Vol] 54 U/L Normal 3-55 [facility] [employer] Comment on above: Performed By: #### G FR1 #### [employer] [place] [address] Bilirubin [Mass/Vol] 0.6 mg/dL Normal 0.2-1.6 [facility] [employer] [facility] Comment on above: Performed By: #### G FR1 #### [employer] [place] [address] CO2 [Moles/Vol] 27 mmol/L Normal 22-30 [facility] Comment on above: Performed By: #### G FR1 #### [employer] [place] [address] Creatinine [Mass/Vol] 0.38 mg/dL Low 0.66-1.25 [facility] Comment on above: Performed By: #### G FR1 #### [employer] [place] [address] Glucose [Mass/Vol] 107 mg/dL High 65-100 [facility] [employer] [facility] Comment on above: Performed By: #### G FR1 #### [place] [address] Protein [Mass/Vol] 6.4 g/dL Normal 6.3-8.2 [facility] [employer] [facility] Comment on above: Performed By: #### G FR1 #### [place] [address] Urea nitrogen [Mass/Vol] 3 mg/dL Low 8-26 [facility] [employer] [facility] Comment on above: Performed By: #### G FR1 #### [place] [address] Potassium [Moles/Vol] 4.0 mmol/L Normal 3.6-5.1 [facility] [employer] [facility] Comment on above: Performed By: #### G FR1 #### [place] [address] Albumin [Mass/Vol] 2.9 g/dL Low 3.5-5.0 [facility] [employer] [facility] Comment on above: Performed By: #### G FR1 #### [place] [address] Chloride [Moles/Vol] 104 mmol/L Normal 96-109 [facility] [employer] [facility] Comment on above: Performed By: #### G FR1 #### [place] [address] Sodium [Moles/Vol] 134 mmol/L Low 135-147 [facility] [employer] [facility] Comment on above: Performed By: #### G FR1 #### [place] [address] Magnesiumon 07-04-2021 Magnesium [Mass/Vol] 1.8 mg/dL 1.6 - 2 .3 mg/dL [employer] No Panel Informationon 07-04 [facility] [facility] [employer] nRBC 0 [employer] PHOSPHORUSon 07-04-2021 Phosphate [Mass/Vol] 3.8 mg/dL Normal 2.5-4.5 [facility] Comment on above: Performed By: #### 4 [id number] #### [place] [address] Phosphate [Mass/Vol] 3.8 mg/dL 2.5 - 4 .5 mg/dL [facility] SARS-COV-2, PCRon 07-04-2021 SARS-CoV-2 (COVID-19) RNA FRANKLIN+probe Ql (Unsp spec) Negative Normal Negative [facility] Comment on above: Result Comment: Nega tive results do not preclude SARS-CoV-2 infection and should not be used as the sole basis for treatment or other patient management decisions. Negative results must be combined with clinical observations, patient history, and epidemiological information. The Xpert Xpress CoV-2/Flu/RSV plus test is only for use under the Food and Drug Administration?s Emergency Use Authorization. Results are for the simultaneous detection and differentiation of SARS-CoV-2, influenza A virus, influenza B virus and RSV RNA which are generally detectable in upper respiratory specimens during the acute phase of infection. Performed By: #### 3 [id number] #### [place] [address] SARS-CoV-2 (COVID-19) RNA FRANKLIN+probe Ql (Resp) Negative Negative [facility] CBC WITH DIFFERENTIALon ABSOLUTE BASO 0.0 10 3/uL Normal 0.0-0.1 [facility] Comment on above: Performed By: #### 4 [id number] #### [place] [address] ABSOLUTE EOSIN 0.2 10 3/uL Normal 0.1-0.3 [facility] Comment on above: Performed By: #### 4 [id number] #### [place] [address] ABSOLUTE LYMPH 1.2 10 3/uL Normal 1.2-3.3 [facility] Comment on above: Performed By: #### 4 [id number] #### [address] [place] [address] ABSOLUTE MONO 0.8 10 3/uL High 0.2-0.6 [employer] Comment on above: Performed By: #### 4 [id number] #### [place] [address] ABSOLUTE NEUT 10.2 10 3/uL High 2.4-6.6 [employer] Comment on above: Performed By: #### 4 [id number] #### [place] [address] Basophils/100 WBC (Bld) 0.3 % Normal G [facility] [employer] Comment on above: Performed By: #### 4 [id number] #### [place] [address] Eosinophils/100 WBC (Bld) 1.9 % Normal [employer] Comment on above: Performed By: #### 4 [id number] #### [place] [address] Erythrocyte distribution width (RBC) [Ratio] 18.1 % High 11.5-14.5 [employer] Comment on above: Performed By: #### 4 [id number] #### [place] [address] Hematocrit (Bld) [Volume fraction] 31.3 % Low 37.7-51.1 [employer] Comment on above: Performed By: #### 4 [id number] #### [place] [address] Hemoglobin (Bld) [Mass/Vol] 10.4 g/dL Low 12.8-17.7 [employer] Comment on above: Performed By: #### 4 [id number] #### [place] [address] IG ABSOLUTE 0.1 10 3/uL Normal 0 [employer] Comment on above: Performed By: #### 4 [id number] #### [employer] [address] [address] IG PERCENT 0.6 % Normal [facility] [employer] [facility] Comment on above: Performed By: #### 4 [id number] #### [place] [id number] Lymphocytes/100 WBC (Bld) 9.6 % Normal [facility] [employer] [facility] Comment on above: Performed By: #### 4 [id number] #### [place] [address] MCH (RBC) [Entitic mass] 34.4 pg High 27.0-34.2 [facility] Comment on above: Performed By: #### 4 [id number] #### [place] [address] MCHC (RBC) [Mass/Vol] 33.2 g/dL Normal 31.4-36.2 [facility] [employer] [facility] Comment on above: Performed By: #### 4 [id number] #### [place] [address] MCV (RBC) [Entitic vol] 103.6 fL High 80.6-99.0 [facility] [employer] [facility] Comment on above: Performed By: #### 4 [id number] #### [employer] [place] [id number] Monocytes/100 WBC (Bld) 6.2 % Normal G [facility] [employer] [facility] Comment on above: Performed By: #### 4 [id number] #### [facility] [employer] [place] [id number] Neutrophils/100 WBC (Bld) 81.4 % Normal [facility] [employer] [facility] Comment on above: Performed By: #### 4 [id number] #### [facility] [employer] [place] [id number] NRBC 0 Normal 0-1 [facility] [employer] [facility] Comment on above: Performed By: #### 4 [id number] #### [employer] [employer] [place] [id number] PLATELET 287.0 x10 3/uL Normal 150.0-400.0 [facility] Comment on above: Performed By: #### 4 [id number] #### [place] [address] RBC 3.02 x10 6/uL Low 3.70-5.70 [facility] Comment on above: Performed By: #### 4 [id number] #### [place] [address] WBC 12.5 x10 3/uL High 4.3-10.3 [facility] Comment on above: Performed By: #### 4 [id number] #### [place] [address] CBC with differentialon Absolute Immature Granulocytes 0.1 0 10 3/uL [facility] Absolute Lymph 1.2 [facility] Absolute [place] 0.8 High [facility] Basophils (Bld) [#/Vol] 0.0 10*3/uL [facility] Basophils/100 WBC (Bld) 0.3 % G [facility] Eosinophils (Bld) [#/Vol] 0.2 10*3/uL [facility] Eosinophils/100 WBC (Bld) 1.9 % [facility] Erythrocyte distribution width (RBC) [Ratio] 18.1 % High 11.5 - 14.5 % [facility] Hematocrit (Bld) [Volume fraction] 31.3 % Low 37.7 - 51.1 % [facility] Hemoglobin (Bld) [Mass/Vol] 10.4 g/dL Low 12.8 - 17.7 g/dL [facility] Immature granulocytes/100 WBC (Bld) 0.6 % [facility] Interpretation and review of laboratory results Abnormal [facility] Lymphocytes/100 WBC (Bld) 9.6 % [facility] MCH (RBC) [Entitic mass] 34.4 pg High 27.0 - 34.2 pg [facility] MCHC (RBC) [Mass/Vol] 33.2 g/dL 31.4 - 36.2 g/dl [facility] MCV (RBC) [Entitic vol] 103.6 fL High 80.6 - 99.0 fL [facility] Monocytes/100 WBC (Bld) 6.2 % [facility] Neutrophils (Bld) [#/Vol] 10.2 10*3/uL High [facility] Neutrophils/100 WBC (Bld) 81.4 % [facility] Platelets (Bld) [#/Vol] 287.0 10*3/uL [facility] RBC (Bld) [#/Vol] 3.02 10*6/uL Low [facility] WBC LM Ql (Sput) 12.5 High [facility] Comprehensive metabolic pane konrad 07-03-2021 Albumin [Mass/Vol] 3.0 g/dL Low 3.5 - 5.0 g/dL [facility] Alk Phos 159 U/L High 24 - 126 U/L [facility] ALT [Catalytic activity/Vol] 64 U/L High 4 - 50 U/L [facility] AST [Catalytic activity/Vol] 74 U/L High 3 - 55 U/L [facility] Bilirubin [Mass/Vol] 0.9 mg/dL 0.2 - 1 .6 mg/dL [facility] Calcium [Mass/Vol] 8.1 mg/dL Low 8.4 - 10. 4 mg/dL [facility] Chloride [Moles/Vol] 103 mmol/L 96 - 10 9 mmol/L [facility] CO2 [Moles/Vol] 22 mmol/L 22 - 30 mmol/L [facility] Creatinine [Mass/Vol] 0.34 mg/dL Low 0.66 - 1.25 mg/dL [facility] Glucose [Mass/Vol] 87 mg/dL 65 - 100 mg/dL [facility] Interpretation and review of laboratory results Abnormal [facility] Potassium [Moles/Vol] 3.9 mmol/L 3.6 - 5.1 mmol/L [facility] Protein [Mass/Vol] 6.7 g/dL 6.3 - 8.2 g/dL [facility] Sodium [Moles/Vol] 133 mmol/L Low 135 - 147 mmol/L [facility] Urea nitrogen [Mass/Vol] 4 mg/dL Low 8 - 26 mg/dL [facility] GFRon 07-03-2021 GFR >60 Normal [facility] Comment on above: Result Comment: To e stimate the GFR for Americans, multiply the result provided by 1.21. Population mean GFR = 116 ml/min/1.73 sq.m. for ages 18-29 yrs. The MDRD is validated in individuals 18-70 years of age. It is less accurate in patients with extremes of muscle mass, restriction of dietary protein, ingestion of creatine, extra-renal metabolism of creatinine, or treatment with medications that affect renal tubular creatinine secretion. GFR Categories in Chronic Kidney Disease (CKD) Category: GFR(mL/min/1.73m^2) Interpretation: G1* 90 or greater Normal or high G2* 60-89 Mild decrease G3a 45-59 Mild to moderate decrease G3b 30-44 Moderate to severe decrease G4 15-29 Severe decrease G5 14 or less Kidney failure *G1&G2: In the absence of evidence of kidney damage, neither GFR category G1 nor G2 fulfill the criteria for CKD Kidney Int Suppl.2013;3:1-150 Performed By: #### 3 [id number] #### [place] [address] GLOMERULAR FILTRATION RATEon 07-03-2021 GFR >60 [employer] [facility] MAGNESIUMon 07-03-2021 Magnesium [Mass/Vol] 1.8 mg/dL Normal 1.6-2.3 [facility] [employer] Comment on above: Performed By: #### 4 [id number] #### [place] [address] METABOLIC PANELon 07-03-2021 Calcium [Mass/Vol] 8.1 mg/dL Low 8.4-10.4 [facility] [employer] [facility] Comment on above: Performed By: #### 4 [id number] #### [place] [address] ALK PHOS 159 U/L High 24-126 [employer] Comment on above: Performed By: #### 4 [id number] #### [place] [address] ALT [Catalytic activity/Vol] 64 U/L High 4-50 [facility] [employer] [facility] Comment on above: Performed By: #### 4 [id number] #### [place] [address] AST [Catalytic activity/Vol] 74 U/L High 3-55 [facility] Comment on above: Performed By: #### 4 [id number] #### [place] [address] Bilirubin [Mass/Vol] 0.9 mg/dL Normal 0.2-1.6 [facility] [employer] [facility] Comment on above: Performed By: #### 4 [id number] #### [place] [address] CO2 [Moles/Vol] 22 mmol/L Normal 22-30 [facility] [employer] Comment on above: Performed By: #### 4 [id number] #### [place] [address] Creatinine [Mass/Vol] 0.34 mg/dL Low 0.66-1.25 [facility] [employer] [facility] Comment on above: Performed By: #### 4 [id number] #### [place] [address] Glucose [Mass/Vol] 87 mg/dL Normal 65-100 [facility] [employer] [facility] Comment on above: Performed By: #### 4 [id number] #### [place] [address] Protein [Mass/Vol] 6.7 g/dL Normal 6.3-8.2 [facility] [employer] [facility] Comment on above: Performed By: #### 4 [id number] #### [place] [address] Urea nitrogen [Mass/Vol] 4 mg/dL Low 8-26 [facility] [employer] Comment on above: Performed By: #### 4 [id number] #### [place] [address] Potassium [Moles/Vol] 3.9 mmol/L Normal 3.6-5.1 [facility] [employer] Comment on above: Performed By: #### 4 [id number] #### [place] [address] Albumin [Mass/Vol] 3.0 g/dL Low 3.5-5.0 [employer] [facility] Comment on above: Performed By: #### 4 [id number] #### [place] [address] Chloride [Moles/Vol] 103 mmol/L Normal 96-109 [facility] [employer] Comment on above: Performed By: #### 4 [id number] #### [place] [address] Sodium [Moles/Vol] 133 mmol/L Low 135-147 [facility] Comment on above: Performed By: #### 4 [id number] #### [place] [address] Magnesiumon 07-03-2021 Magnesium [Mass/Vol] 1.8 mg/dL 1.6 - 2 .3 mg/dL [employer] No Panel Informationon 07-03 [facility] [employer] nRBC 0 [employer] PHOSPHORUSon 07-03-2021 Phosphate [Mass/Vol] 4.0 mg/dL Normal 2.5-4.5 [facility] [employer] Comment on above: Performed By: #### G FR1 #### [place] [address] Phosphate [Mass/Vol] 4.0 mg/dL 2.5 - 4 .5 mg/dL [employer] XR CHEST 1 VIEWon 07-03-2021 XR CHEST 1 VIEW EXAM: XR CHEST 1 VIE W HISTORY: . cough . COMPARISON: 06/30/2021 TECHNIQUE: AP portable upright view of the chest. FINDINGS: Heart is normal in size. There is been interval development of the left perihilar infiltrate. There is also slight increased density in the right upper lobe. Right middle and lower lobes are unremarkable. Impression: 1. Interval development of the left perihilar infiltrate. 2. Subtle increased density in the right upper lobe either representing an area of atelectasis or an early infiltrate. Clinical correlation is suggested. Cough, AMS Normal [employer] XR Chest Single viewon 07-03 HILDA [employer] Radiology Study observation (narrative) [employer] XR Chest Single viewOrdered By: Bashir Infante on 07-03-2021 [employer] Work Phone: CBC WITH DIFFERENTIALon ABSOLUTE BASO 0.1 10 3/uL Normal 0.0-0.1 [employer] Comment on above: Performed By: #### 4 [id number] ####[employer] [address] [phone] ABSOLUTE EOSIN 0.2 10 3/uL Normal 0.1-0.3 [employer] Comment on above: Performed By: #### 4 [id number] ####[employer] [address] [phone] ABSOLUTE LYMPH 1.3 10 3/uL Normal 1.2-3.3 [employer] Comment on above: Performed By: #### 4 [id number] ####[employer] [address] [phone] ABSOLUTE MONO 0.9 10 3/uL High 0.2-0.6 [employer] Comment on above: Performed By: #### 4 [id number] ####[employer] [address] [phone] ABSOLUTE NEUT 9.0 10 3/uL High 2.4-6.6 [employer] Comment on above: Performed By: #### 4 [id number] ####[employer] [address] [phone] Basophils/100 WBC (Bld) 0.4 % Normal [employer] Comment on above: Performed By: #### 4 [id number] ####[employer] [address] [phone] Eosinophils/100 WBC (Bld) 1.7 % Normal [employer] Comment on above: Performed By: #### 4 [id number] ####[address] [phone] Erythrocyte distribution width (RBC) [Ratio] 18.3 % High 11.5-14.5 [facility] Comment on above: Performed By: #### 4 [id number] ####[address] [phone] Hematocrit (Bld) [Volume fraction] 29.4 % Low 37.7-51.1 [facility] [employer] [facility] Comment on above: Performed By: #### 4 [id number] ####[place] [phone] Hemoglobin (Bld) [Mass/Vol] 9.7 g/dL Low 12.8-17.7 [facility] [employer] [facility] Comment on above: Performed By: #### 4 [id number] ####[address] [phone] IG ABSOLUTE 0.1 10 3/uL Normal 0 [facility] Comment on above: Performed By: #### 4 [id number] ####[address] [phone] IG PERCENT 0.5 % Normal [facility] Comment on above: Performed By: #### 4 [id number] ####[address] [phone] Lymphocytes/100 WBC (Bld) 11.7 % Normal [facility] Comment on above: Performed By: #### 4 [id number] ####[address] [phone] MCH (RBC) [Entitic mass] 34.4 pg High 27.0-34.2 [facility] Comment on above: Performed By: #### 4 [id number] ####[address] [phone] MCHC (RBC) [Mass/Vol] 33.0 g/dL Normal 31.4-36.2 [facility] [employer] Comment on above: Performed By: #### 4 [id number] ####[employer] [address] [phone] MCV (RBC) [Entitic vol] 104.3 fL High 80.6-99.0 [employer] Comment on above: Performed By: #### 4 [id number] ####[employer] [address] [phone] Monocytes/100 WBC (Bld) 7.7 % Normal [facility] [employer] Comment on above: Performed By: #### 4 [id number] ####[facility] [employer] [facility] [address] [phone] Neutrophils/100 WBC (Bld) 78.0 % Normal [facility] [employer] Comment on above: Performed By: #### 4 [id number] ####[facility] [employer] [facility] [address] [phone] NRBC 0 Normal 0-1 [employer] Comment on above: Performed By: #### 4 [id number] ####[employer] [address] [phone] PLATELET 191.0 x10 3/uL Normal 150.0-400.0 [facility] [employer] Comment on above: Performed By: #### 4 [id number] ####[facility] [employer] [facility] [address] [phone] RBC 2.82 x10 6/uL Low 3.70-5.70 [employer] Comment on above: Performed By: #### 4 [id number] ####[employer] [address] [phone] WBC 11.5 x10 3/uL High 4.3-10.3 [employer] Comment on above: Performed By: #### 4 [id number] ####[employer] [address] [phone] CBC with differentialon 020 Absolute Immature Granulocytes 0.1 0 10 3/uL [facility] Absolute Lymph 1.3 [facility] Absolute [place] 0.9 High [facility] Basophils (Bld) [#/Vol] 0.1 10*3/uL [facility] Basophils/100 WBC (Bld) 0.4 % G [facility] Eosinophils (Bld) [#/Vol] 0.2 10*3/uL [facility] Eosinophils/100 WBC (Bld) 1.7 % [facility] Erythrocyte distribution width (RBC) [Ratio] 18.3 % High 11.5 - 14.5 % [facility] Hematocrit (Bld) [Volume fraction] 29.4 % Low 37.7 - 51.1 % [facility] Hemoglobin (Bld) [Mass/Vol] 9.7 g/dL Low 12.8 - 17.7 g/dL [facility] Immature granulocytes/100 WBC (Bld) 0.5 % [facility] Interpretation and review of laboratory results Abnormal [facility] Lymphocytes/100 WBC (Bld) 11.7 % [facility] MCH (RBC) [Entitic mass] 34.4 pg High 27.0 - 34.2 pg [facility] MCHC (RBC) [Mass/Vol] 33.0 g/dL 31.4 - 36.2 g/dl [facility] MCV (RBC) [Entitic vol] 104.3 fL High 80.6 - 99.0 fL [facility] Monocytes/100 WBC (Bld) 7.7 % G [facility] Neutrophils (Bld) [#/Vol] 9.0 10*3/uL High [facility] Neutrophils/100 WBC (Bld) 78.0 % [facility] Platelets (Bld) [#/Vol] 191.0 10*3/uL [facility] RBC (Bld) [#/Vol] 2.82 10*6/uL Low [facility] WBC LM Ql (Sput) 11.5 High [facility] Comprehensive metabolic pane konrad 07-02-2021 Albumin [Mass/Vol] 2.9 g/dL Low 3.5 - 5.0 g/dL [facility] Alk Phos 149 U/L High 24 - 126 U/L [facility] ALT [Catalytic activity/Vol] 66 U/L High 4 - 50 U/L [facility] AST [Catalytic activity/Vol] 80 U/L High 3 - 55 U/L [facility] Bilirubin [Mass/Vol] 0.9 mg/dL 0.2 - 1 .6 mg/dL [facility] Calcium [Mass/Vol] 8.2 mg/dL Low 8.4 - 10. 4 mg/dL [facility] Chloride [Moles/Vol] 103 mmol/L 96 - 10 9 mmol/L [facility] CO2 [Moles/Vol] 25 mmol/L 22 - 30 mmol/L [facility] Creatinine [Mass/Vol] 0.41 mg/dL Low 0.66 - 1.25 mg/dL [facility] Glucose [Mass/Vol] 105 mg/dL High 65 - 100 mg/dL [facility] Potassium [Moles/Vol] 3.9 mmol/L 3.6 - 5.1 mmol/L [facility] Protein [Mass/Vol] 6.4 g/dL 6.3 - 8.2 g/dL [facility] Sodium [Moles/Vol] 132 mmol/L Low 135 - 147 mmol/L [facility] Urea nitrogen [Mass/Vol] 3 mg/dL Low 8 - 26 mg/dL [facility] GFRon 07-02-2021 GFR >60 Normal [facility] Comment on above: Result Comment: To e stimate the GFR for Americans, multiply the result provided by 1.21. Population mean GFR = 116 ml/min/1.73 sq.m. for ages 18-29 yrs. The MDRD is validated in individuals 18-70 years of age. It is less accurate in patients with extremes of muscle mass, restriction of dietary protein, ingestion of creatine, extra-renal metabolism of creatinine, or treatment with medications that affect renal tubular creatinine secretion. GFR Categories in Chronic Kidney Disease (CKD) Category: GFR(mL/min/1.73m^2) Interpretation: G1* 90 or greater Normal or high G2* 60-89 Mild decrease G3a 45-59 Mild to moderate decrease G3b 30-44 Moderate to severe decrease G4 15-29 Severe decrease G5 14 or less Kidney failure *G1&G2: In the absence of evidence of kidney damage, neither GFR category G1 nor G2 fulfill the criteria for CKD Kidney Int Suppl.2013;3:1-150 Performed By: #### G FR1 #### [employer] [address] [address] GLOMERULAR FILTRATION RATEon 07-02-2021 GFR >60 [facility] MAGNESIUMon 07-02-2021 Magnesium [Mass/Vol] 1.5 mg/dL Low 1.6-2.3 [facility] [employer] [facility] Comment on above: Performed By: #### 4 [id number] #### [place] [address] METABOLIC PANELon 07-02-2021 ALT [Catalytic activity/Vol] 66 U/L High 4-50 [facility] [employer] Comment on above: Performed By: #### 3 [id number] #### [employer] [address] [address] Calcium [Mass/Vol] 8.2 mg/dL Low 8.4-10.4 [employer] [facility] Comment on above: Performed By: #### 3 [id number] #### [employer] [address] [address] Glucose [Mass/Vol] 105 mg/dL High 65-100 [employer] Comment on above: Performed By: #### 3 [id number] #### [facility] [employer] [place] [id number] ALK PHOS 149 U/L High 24-126 [facility] [employer] [facility] Comment on above: Performed By: #### 3 [id number] #### [employer] [address] [address] AST [Catalytic activity/Vol] 80 U/L High 3-55 [employer] [facility] Comment on above: Performed By: #### 3 [id number] #### [employer] [address] [address] Bilirubin [Mass/Vol] 0.9 mg/dL Normal 0.2-1.6 [facility] [employer] Comment on above: Performed By: #### 3 [id number] #### [facility] [employer] [place] [address]457801 CO2 [Moles/Vol] 25 mmol/L Normal 22-30 [facility] [employer] [facility] Comment on above: Performed By: #### 3 [id number] #### [employer] [place] [address] Creatinine [Mass/Vol] 0.41 mg/dL Low 0.66-1.25 [facility] [employer] [facility] Comment on above: Performed By: #### 3 [id number] #### [place] [address] Protein [Mass/Vol] 6.4 g/dL Normal 6.3-8.2 [facility] [employer] [facility] Comment on above: Performed By: #### 3 [id number] #### [place] [place] [address] Urea nitrogen [Mass/Vol] 3 mg/dL Low 8-26 [facility] Comment on above: Performed By: #### 3 [id number] #### [employer] [place] [address] Potassium [Moles/Vol] 3.9 mmol/L Normal 3.6-5.1 [facility] [employer] [facility] Comment on above: Performed By: #### 3 [id number] #### [place] [place] [address] Sodium [Moles/Vol] 132 mmol/L Low 135-147 [facility] [employer] [facility] Comment on above: Performed By: #### 3 [id number] #### [facility] [employer] [place] [id number] Albumin [Mass/Vol] 2.9 g/dL Low 3.5-5.0 [facility] [employer] [facility] Comment on above: Performed By: #### 3 [id number] #### [employer] [place] [address]457801 Chloride [Moles/Vol] 103 mmol/L Normal 96-109 [facility] Comment on above: Performed By: #### 3 [id number] #### [place] [address] Magnesiumon 07-02-2021 Magnesium [Mass/Vol] 1.5 mg/dL Low 1.6 - 2 .3 mg/dL [facility] No Panel Informationon 07-02 Interpretation and review of laboratory results Abnormal [facility] nRBC 0 [facility] PHOSPHORUSon 07-02-2021 Phosphate [Mass/Vol] 4.2 mg/dL Normal 2.5-4.5 [facility] Comment on above: Performed By: #### G FR1 #### [place] [address] Phosphate [Mass/Vol] 4.2 mg/dL 2.5 - 4 .5 mg/dL [facility] AMMONIAon 07-01-2021 Ammonia (P) [Moles/Vol] 18 umol/L Normal 9-30 [facility] Comment on above: Performed By: #### G FR1 #### [place] [address] Ammoniaon 07-01-2021 Ammonia (P) [Moles/Vol] 18 umol/L 9 - 30 umol/ L [facility] CBC WITH DIFFERENTIALon ABSOLUTE BASO 0.1 10 3/uL Normal 0.0-0.1 [facility] Comment on above: Performed By: #### 4 [id number] #### [place] [address] ABSOLUTE EOSIN 0.2 10 3/uL Normal 0.1-0.3 [facility] Comment on above: Performed By: #### 4 [id number] #### [place] [address] ABSOLUTE LYMPH 1.5 10 3/uL Normal 1.2-3.3 [facility] Comment on above: Performed By: #### 4 [id number] #### [place] [address] ABSOLUTE MONO 0.7 10 3/uL High 0.2-0.6 [employer] Comment on above: Performed By: #### 4 [id number] #### [place] [address] ABSOLUTE NEUT 8.2 10 3/uL High 2.4-6.6 [employer] Comment on above: Performed By: #### 4 [id number] #### [place] [address] Basophils/100 WBC (Bld) 0.6 % Normal [facility] Comment on above: Performed By: #### 4 [id number] #### [place] [address] Eosinophils/100 WBC (Bld) 2.0 % Normal [employer] Comment on above: Performed By: #### 4 [id number] #### [place] [address] Erythrocyte distribution width (RBC) [Ratio] 19.0 % High 11.5-14.5 [employer] Comment on above: Performed By: #### 4 [id number] #### [place] [address] Hematocrit (Bld) [Volume fraction] 28.4 % Low 37.7-51.1 [employer] Comment on above: Performed By: #### 4 [id number] #### [place] [address] Hemoglobin (Bld) [Mass/Vol] 9.4 g/dL Low 12.8-17.7 [employer] Comment on above: Performed By: #### 4 [id number] #### [place] [address] IG ABSOLUTE 0.1 10 3/uL Normal 0 [employer] Comment on above: Performed By: #### 4 [id number] #### [place] [address] IG PERCENT 0.9 % Normal [facility] Comment on above: Performed By: #### 4 [id number] #### [address] [address] Lymphocytes/100 WBC (Bld) 13.7 % Normal [facility] Comment on above: Performed By: #### 4 [id number] #### [place] [address] MCH (RBC) [Entitic mass] 34.9 pg High 27.0-34.2 [facility] Comment on above: Performed By: #### 4 [id number] #### [place] [address] MCHC (RBC) [Mass/Vol] 33.1 g/dL Normal 31.4-36.2 [facility] Comment on above: Performed By: #### 4 [id number] #### [place] [address] MCV (RBC) [Entitic vol] 105.6 fL High 80.6-99.0 G [facility] [employer] [facility] Comment on above: Performed By: #### 4 [id number] #### [address] [address] Monocytes/100 WBC (Bld) 6.7 % Normal G [facility] [employer] [facility] Comment on above: Performed By: #### 4 [id number] #### [place] [id number] Neutrophils/100 WBC (Bld) 76.1 % Normal [facility] [employer] [facility] Comment on above: Performed By: #### 4 [id number] #### [address] [address] NRBC 0 Normal 0-1 [facility] Comment on above: Performed By: #### 4 [id number] #### [place] [id number] PLATELET 183.0 x10 3/uL Normal 150.0-400.0 [facility] Comment on above: Performed By: #### 4 [id number] #### [employer] [place] [address] RBC 2.69 x10 6/uL Low 3.70-5.70 [facility] Comment on above: Performed By: #### 4 [id number] #### [employer] [place] [address] WBC 10.8 x10 3/uL High 4.3-10.3 [facility] Comment on above: Performed By: #### 4 [id number] #### [employer] [place] [address] CBC with Differentialon Absolute Immature Granulocytes 0.1 0 10 3/uL [facility] Absolute Lymph 1.5 [facility] Absolute [place] 0.7 High [facility] Basophils (Bld) [#/Vol] 0.1 10*3/uL [facility] Basophils/100 WBC (Bld) 0.6 % G [facility] Eosinophils (Bld) [#/Vol] 0.2 10*3/uL [facility] Eosinophils/100 WBC (Bld) 2.0 % [facility] Erythrocyte distribution width (RBC) [Ratio] 19.0 % High 11.5 - 14.5 % [facility] Hematocrit (Bld) [Volume fraction] 28.4 % Low 37.7 - 51.1 % [facility] Hemoglobin (Bld) [Mass/Vol] 9.4 g/dL Low 12.8 - 17.7 g/dL [facility] Immature granulocytes/100 WBC (Bld) 0.9 % [facility] Interpretation and review of laboratory results Abnormal [facility] Lymphocytes/100 WBC (Bld) 13.7 % [facility] MCH (RBC) [Entitic mass] 34.9 pg High 27.0 - 34.2 pg [facility] MCHC (RBC) [Mass/Vol] 33.1 g/dL 31.4 - 36.2 g/dl [facility] MCV (RBC) [Entitic vol] 105.6 fL High 80.6 - 99.0 fL [facility] Monocytes/100 WBC (Bld) 6.7 % [facility] Neutrophils (Bld) [#/Vol] 8.2 10*3/uL High [facility] Neutrophils/100 WBC (Bld) 76.1 % [facility] Platelets (Bld) [#/Vol] 183.0 10*3/uL [facility] RBC (Bld) [#/Vol] 2.69 10*6/uL Low [facility] WBC LM Ql (Sput) 10.8 High [facility] Comprehensive metabolic pane konrad 07-01-2021 Albumin [Mass/Vol] 2.8 g/dL Low 3.5 - 5.0 g/dL [facility] Alk Phos 151 U/L High 24 - 126 U/L [facility] ALT [Catalytic activity/Vol] 72 U/L High 4 - 50 U/L [facility] AST [Catalytic activity/Vol] 95 U/L High 3 - 55 U/L [facility] Bilirubin [Mass/Vol] 0.9 mg/dL 0.2 - 1 .6 mg/dL [facility] Calcium [Mass/Vol] 8.2 mg/dL Low 8.4 - 10. 4 mg/dL [facility] Chloride [Moles/Vol] 104 mmol/L 96 - 10 9 mmol/L [facility] CO2 [Moles/Vol] 25 mmol/L 22 - 30 mmol/L [facility] Creatinine [Mass/Vol] 0.40 mg/dL Low 0.66 - 1.25 mg/dL [facility] Glucose [Mass/Vol] 91 mg/dL 65 - 100 mg/dL [facility] Interpretation and review of laboratory results Abnormal [facility] Potassium [Moles/Vol] 3.9 mmol/L 3.6 - 5.1 mmol/L [facility] Protein [Mass/Vol] 6.3 g/dL 6.3 - 8.2 g/dL [facility] Sodium [Moles/Vol] 132 mmol/L Low 135 - 147 mmol/L [facility] Urea nitrogen [Mass/Vol] 3 mg/dL Low 8 - 26 mg/dL [facility] GFRon 07-01-2021 GFR >60 Normal [facility] Comment on above: Result Comment: To e stimate the GFR for Americans, multiply the result provided by 1.21. Population mean GFR = 116 ml/min/1.73 sq.m. for ages 18-29 yrs. The MDRD is validated in individuals 18-70 years of age. It is less accurate in patients with extremes of muscle mass, restriction of dietary protein, ingestion of creatine, extra-renal metabolism of creatinine, or treatment with medications that affect renal tubular creatinine secretion. GFR Categories in Chronic Kidney Disease (CKD) Category: GFR(mL/min/1.73m^2) Interpretation: G1* 90 or greater Normal or high G2* 60-89 Mild decrease G3a 45-59 Mild to moderate decrease G3b 30-44 Moderate to severe decrease G4 15-29 Severe decrease G5 14 or less Kidney failure *G1&G2: In the absence of evidence of kidney damage, neither GFR category G1 nor G2 fulfill the criteria for CKD Kidney Int Suppl.2013;3:1-150 Performed By: #### G FR1 #### [place] [address] GLOMERULAR FILTRATION RATEon 07-01-2021 GFR >60 [facility] [facility] [employer] MAGNESIUMon 07-01-2021 Magnesium [Mass/Vol] 1.7 mg/dL Normal 1.6-2.3 [facility] [employer] Comment on above: Performed By: #### 4 [id number] #### [place] [address] METABOLIC PANELon 07-01-2021 ALT [Catalytic activity/Vol] 72 U/L High 4-50 [facility] [employer] Comment on above: Performed By: #### 4 [id number] #### [place] [address] Calcium [Mass/Vol] 8.2 mg/dL Low 8.4-10.4 [employer] Comment on above: Performed By: #### 4 [id number] #### [place] [address] Glucose [Mass/Vol] 91 mg/dL Normal 65-100 [facility] [employer] [facility] Comment on above: Performed By: #### 4 [id number] #### [place] [address] Urea nitrogen [Mass/Vol] 3 mg/dL Low 8-26 [facility] [employer] Comment on above: Performed By: #### 4 [id number] #### [place] [address] ALK PHOS 151 U/L High 24-126 [facility] [employer] [facility] [employer] Comment on above: Performed By: #### 4 [id number] #### [place] [address] AST [Catalytic activity/Vol] 95 U/L High 3-55 [facility] [employer] Comment on above: Performed By: #### 4 [id number] #### [place] [address] Bilirubin [Mass/Vol] 0.9 mg/dL Normal 0.2-1.6 [facility] [employer] Comment on above: Performed By: #### 4 [id number] #### [place] [address] CO2 [Moles/Vol] 25 mmol/L Normal 22-30 [facility] [employer] [facility] Comment on above: Performed By: #### 4 [id number] #### [place] [address] Creatinine [Mass/Vol] 0.40 mg/dL Low 0.66-1.25 [facility] [employer] [facility] Comment on above: Performed By: #### 4 [id number] #### [place] [address] Protein [Mass/Vol] 6.3 g/dL Normal 6.3-8.2 [facility] [employer] Comment on above: Performed By: #### 4 [id number] #### [place] [address] Chloride [Moles/Vol] 104 mmol/L Normal 96-109 [facility] Comment on above: Performed By: #### 4 [id number] #### [employer] [place] [address] Potassium [Moles/Vol] 3.9 mmol/L Normal 3.6-5.1 [facility] Comment on above: Performed By: #### 4 [id number] #### [employer] [place] [address] Sodium [Moles/Vol] 132 mmol/L Low 135-147 [facility] Comment on above: Performed By: #### 4 [id number] #### [employer] [place] [address] Albumin [Mass/Vol] 2.8 g/dL Low 3.5-5.0 [facility] Comment on above: Performed By: #### 4 [id number] #### [place] [address] MR Brain WO contraston 07-01 [facility] MR Brain WO contrastOrdered By: Shiv Bahena on 07-01-2021 [facility] [employer] Work Phone: Magnesiumon 07-01-2021 Magnesium [Mass/Vol] 1.7 mg/dL 1.6 - 2 .3 mg/dL [facility] No Panel Informationon 07-01 nRBC 0 [facility] PHOSPHORUSon 07-01-2021 Phosphate [Mass/Vol] 3.4 mg/dL Normal 2.5-4.5 [facility] Comment on above: Performed By: #### 4 [id number] #### [employer] [place] [address] Phosphate [Mass/Vol] 3.4 mg/dL 2.5 - 4 .5 mg/dL [facility] CBC WITH DIFFERENTIALon ABSOLUTE BASO 0.0 10 3/uL Normal 0.0-0.1 [facility] Comment on above: Performed By: #### 4 [id number] #### [place] [address] ABSOLUTE EOSIN 0.2 10 3/uL Normal 0.1-0.3 [employer] Comment on above: Performed By: #### 4 [id number] #### [place] [address] ABSOLUTE LYMPH 1.3 10 3/uL Normal 1.2-3.3 [facility] [employer] [facility] [employer] Comment on above: Performed By: #### 4 [id number] #### [place] [address] ABSOLUTE MONO 0.8 10 3/uL High 0.2-0.6 [employer] Comment on above: Performed By: #### 4 [id number] #### [place] [address] ABSOLUTE NEUT 5.6 10 3/uL Normal 2.4-6.6 [employer] Comment on above: Performed By: #### 4 [id number] #### [place] [address] Basophils/100 WBC (Bld) 0.5 % Normal G [facility] [employer] Comment on above: Performed By: #### 4 [id number] #### [place] [address] Eosinophils/100 WBC (Bld) 3.0 % Normal [facility] [employer] Comment on above: Performed By: #### 4 [id number] #### [place] [address] Erythrocyte distribution width (RBC) [Ratio] 18.5 % High 11.5-14.5 [employer] Comment on above: Performed By: #### 4 [id number] #### [place] [address] Hematocrit (Bld) [Volume fraction] 31.4 % Low 37.7-51.1 [facility] Comment on above: Performed By: #### 4 [id number] #### [place] [address] Hemoglobin (Bld) [Mass/Vol] 10.4 g/dL Low 12.8-17.7 [facility] [employer] [facility] [employer] Comment on above: Performed By: #### 4 [id number] #### [place] [address] IG ABSOLUTE 0.1 10 3/uL Normal 0 [facility] [employer] [facility] [employer] Comment on above: Performed By: #### 4 [id number] #### [place] [address] IG PERCENT 0.9 % Normal [facility] [employer] Comment on above: Performed By: #### 4 [id number] #### [place] [address] Lymphocytes/100 WBC (Bld) 15.7 % Normal [facility] [facility] [employer] Comment on above: Performed By: #### 4 [id number] #### [place] [address] MCH (RBC) [Entitic mass] 35.1 pg High 27.0-34.2 [facility] [employer] Comment on above: Performed By: #### 4 [id number] #### [employer] [place] [address] MCHC (RBC) [Mass/Vol] 33.1 g/dL Normal 31.4-36.2 [facility] [employer] [facility] Comment on above: Performed By: #### 4 [id number] #### [employer] [place] [id number] MCV (RBC) [Entitic vol] 106.1 fL High 80.6-99.0 [facility] Comment on above: Performed By: #### 4 [id number] #### [employer] [place] [id number] Monocytes/100 WBC (Bld) 10.0 % Normal [facility] Comment on above: Performed By: #### 4 [id number] #### [place] [address] Neutrophils/100 WBC (Bld) 69.9 % Normal [employer] Comment on above: Performed By: #### 4 [id number] #### [place] [address] NRBC 0 Normal 0-1 [employer] Comment on above: Performed By: #### 4 [id number] #### [place] [address] PLATELET 150.0 x10 3/uL Normal 150.0-400.0 [employer] Comment on above: Performed By: #### 4 [id number] #### [place] [address] RBC 2.96 x10 6/uL Low 3.70-5.70 [employer] Comment on above: Performed By: #### 4 [id number] #### [place] [address] WBC 8.0 x10 3/uL Normal 4.3-10.3 [employer] Comment on above: Performed By: #### 4 [id number] #### [place] [address] CBC with differentialon 0 Absolute Immature Granulocytes 0.1 0 10 3/uL [employer] Absolute Lymph 1.3 [employer] Absolute [place] 0.8 High [employer] Basophils (Bld) [#/Vol] 0.0 10*3/uL [employer] Basophils/100 WBC (Bld) 0.5 % [facility] [employer] [facility] Eosinophils (Bld) [#/Vol] 0.2 10*3/uL [employer] Eosinophils/100 WBC (Bld) 3.0 % [employer] Erythrocyte distribution width (RBC) [Ratio] 18.5 % High 11.5 - 14.5 % [employer] Hematocrit (Bld) [Volume fraction] 31.4 % Low 37.7 - 51.1 % [facility] Hemoglobin (Bld) [Mass/Vol] 10.4 g/dL Low 12.8 - 17.7 g/dL [facility] Immature granulocytes/100 WBC (Bld) 0.9 % [facility] Interpretation and review of laboratory results Abnormal [facility] Lymphocytes/100 WBC (Bld) 15.7 % [facility] MCH (RBC) [Entitic mass] 35.1 pg High 27.0 - 34.2 pg [facility] MCHC (RBC) [Mass/Vol] 33.1 g/dL 31.4 - 36.2 g/dl [facility] MCV (RBC) [Entitic vol] 106.1 fL High 80.6 - 99.0 fL [facility] Monocytes/100 WBC (Bld) 10.0 % G [facility] Neutrophils (Bld) [#/Vol] 5.6 10*3/uL [facility] Neutrophils/100 WBC (Bld) 69.9 % [facility] Platelets (Bld) [#/Vol] 150.0 10*3/uL [facility] RBC (Bld) [#/Vol] 2.96 10*6/uL Low [facility] WBC LM Ql (Sput) 8.0 [facility] Comprehensive metabolic pane konrad 06-30-2021 Albumin [Mass/Vol] 2.9 g/dL Low 3.5 - 5.0 g/dL [facility] Alk Phos 149 U/L High 24 - 126 U/L [facility] ALT [Catalytic activity/Vol] 78 U/L High 4 - 50 U/L [facility] AST [Catalytic activity/Vol] 119 U/L High 3 - 55 U/L [facility] Bilirubin [Mass/Vol] 1.1 mg/dL 0.2 - 1 .6 mg/dL [facility] Calcium [Mass/Vol] 8.3 mg/dL Low 8.4 - 10. 4 mg/dL [facility] Chloride [Moles/Vol] 105 mmol/L 96 - 10 9 mmol/L [facility] CO2 [Moles/Vol] 22 mmol/L 22 - 30 mmol/L [facility] Creatinine [Mass/Vol] 0.40 mg/dL Low 0.66 - 1.25 mg/dL [facility] Glucose [Mass/Vol] 98 mg/dL 65 - 100 mg/dL [facility] Interpretation and review of laboratory results Abnormal [facility] Potassium [Moles/Vol] 3.4 mmol/L Low 3.6 - 5.1 mmol/L [facility] Protein [Mass/Vol] 6.2 g/dL Low 6.3 - 8.2 g/dL [facility] Sodium [Moles/Vol] 133 mmol/L Low 135 - 147 mmol/L [facility] Urea nitrogen [Mass/Vol] 3 mg/dL Low 8 - 26 mg/dL [facility] GFRon 06-30-2021 GFR >60 Normal [facility] Comment on above: Result Comment: To e stimate the GFR for Americans, multiply the result provided by 1.21. Population mean GFR = 116 ml/min/1.73 sq.m. for ages 18-29 yrs. The MDRD is validated in individuals 18-70 years of age. It is less accurate in patients with extremes of muscle mass, restriction of dietary protein, ingestion of creatine, extra-renal metabolism of creatinine, or treatment with medications that affect renal tubular creatinine secretion. GFR Categories in Chronic Kidney Disease (CKD) Category: GFR(mL/min/1.73m^2) Interpretation: G1* 90 or greater Normal or high G2* 60-89 Mild decrease G3a 45-59 Mild to moderate decrease G3b 30-44 Moderate to severe decrease G4 15-29 Severe decrease G5 14 or less Kidney failure *G1&G2: In the absence of evidence of kidney damage, neither GFR category G1 nor G2 fulfill the criteria for CKD Kidney Int Suppl.2013;3:1-150 Performed By: #### 4 [id number] #### [employer] [place] [address] GLOMERULAR FILTRATION RATEon 06-30-2021 GFR >60 [facility] [employer] MAGNESIUMon 06-30-2021 Magnesium [Mass/Vol] 1.6 mg/dL Normal 1.6-2.3 [facility] Comment on above: Performed By: #### 4 [id number] #### [employer] [address] [address] METABOLIC PANELon 06-30-2021 ALK PHOS 149 U/L High 24-126 [facility] [employer] [facility] [employer] Comment on above: Performed By: #### 4 [id number] #### [employer] [address] [address] ALT [Catalytic activity/Vol] 78 U/L High 4-50 [employer] Comment on above: Performed By: #### 4 [id number] #### [employer] [address] [address] AST [Catalytic activity/Vol] 119 U/L High 3-55 [employer] Comment on above: Performed By: #### 4 [id number] #### [employer] [address] [address] Calcium [Mass/Vol] 8.3 mg/dL Low 8.4-10.4 [employer] Comment on above: Performed By: #### 4 [id number] #### [employer] [address] [address] Glucose [Mass/Vol] 98 mg/dL Normal 65-100 [employer] Comment on above: Performed By: #### 4 [id number] #### [employer] [address] [address] Protein [Mass/Vol] 6.2 g/dL Low 6.3-8.2 [employer] Comment on above: Performed By: #### 4 [id number] #### [employer] [address] [address] Urea nitrogen [Mass/Vol] 3 mg/dL Low 8-26 [employer] Comment on above: Performed By: #### 4 [id number] #### [employer] [address] [address] Bilirubin [Mass/Vol] 1.1 mg/dL Normal 0.2-1.6 [employer] Comment on above: Performed By: #### 4 [id number] #### [employer] [place] [address] CO2 [Moles/Vol] 22 mmol/L Normal 22-30 [facility] Comment on above: Performed By: #### 4 [id number] #### [place] [address] Creatinine [Mass/Vol] 0.40 mg/dL Low 0.66-1.25 [facility] [employer] [facility] Comment on above: Performed By: #### 4 [id number] #### [place] [place] [address] Albumin [Mass/Vol] 2.9 g/dL Low 3.5-5.0 [facility] [employer] [facility] Comment on above: Performed By: #### 4 [id number] #### [employer] [place] [address] Chloride [Moles/Vol] 105 mmol/L Normal 96-109 [facility] [employer] [facility] Comment on above: Performed By: #### 4 [id number] #### [employer] [place] [address] Potassium [Moles/Vol] 3.4 mmol/L Low 3.6-5.1 [facility] [employer] Comment on above: Performed By: #### 4 [id number] #### [place] [address] Sodium [Moles/Vol] 133 mmol/L Low 135-147 [facility] [employer] [facility] Comment on above: Performed By: #### 4 [id number] #### [employer] [place] [address] MR Brain WO contraston 06-30 Radiology Study observation (narrative) [facility] [employer] [facility] MRI BRAIN WITHOUT IV CONTRAS Ton 06-30-2021 MRI BRAIN WITHOUT IV CONTRAST INDICATION: 46 years old; Male. Symptom/Location/Dura tion: Seizure. TECHNIQUE: Multiplanar MRI brain was performed without contrast administration. Comparison: Head CT dated 06/24/2021. Head CT dated 02/16/2021. FINDINGS: POSTOPERATIVE CHANGES: None. BRAIN PARENCHYMA: No restricted diffusion is seen. No mass effect is seen. No midline shift or herniation is noted. There is old lacunar infarction versus dilated perivascular space in the middleton radiata on the right, image 15/series 10. No hemosiderin deposition is seen. Patchy hyperintensity is seen in the white matter in the periventricular regions. VENTRICLES/EXTRA-AXIA L: There is widening of the ventricles and extra ventricular CSF spaces consistent with diffuse atrophy which is out of proportion to patient's age. VESSELS: Normal flow void is seen in the distal vertebral and basilar arteries as well as the distal internal carotid arteries. This study cannot exclude the presence of an intracranial aneurysm. SINUSES/MASTOIDS: Mucoperiosteal thickening is seen in the paranasal sinuses with cyst or polyp formation present on the right. Mastoid air cells are clear. MSK: Bone marrow signal is within normal limits. OTHER: None. IMPRESSION: 1. Atrophy which is out of proportion to patient's age. 2. Old lacunar infarction right middleton radiata with small vessel ischemic changes. 3. No restricted diffusion is appreciated. No hemosiderin deposition is noted. Patient presents with confusion and unresponsive to questions. Performed seizure protocol sequences. Patient motion, patient attempted to remove top coil. Best imaging possible Normal [employer] Magnesiumon 06-30-2021 Magnesium [Mass/Vol] 1.6 mg/dL 1.6 - 2 .3 mg/dL [employer] No Panel Informationon 06-30 [facility] [employer] [facility] [employer] nRBC 0 [employer] PHOSPHORUSon 06-30-2021 Phosphate [Mass/Vol] 3.8 mg/dL Normal 2.5-4.5 [facility] [employer] [facility] Comment on above: Performed By: #### 4 [id number] #### [place] [address] Phosphate [Mass/Vol] 3.8 mg/dL 2.5 - 4 .5 mg/dL [employer] XR CHEST 1 VIEWon 06-30-2021 XR CHEST 1 VIEW EXAM: XR CHEST 1 VIE W HISTORY: Bilateral crackles COMPARISON: Chest radiograph 06/24/2021. TECHNIQUE: One view chest FINDINGS/IMPRESSION: Interval removal of the endotracheal tube, enteric tube and right central venous catheter. Surgical clip remains along the right lower neck. Lungs are grossly clear. No sizable pleural effusion or pneumothorax. Cardiac silhouette is stable. The visualized upper abdomen is unremarkable. Bilateral crackles, SOB Normal [employer] XR Chest Single viewon 06-30 [facility] [employer] Radiology Study observation (narrative) [employer] XR Chest Single viewOrdered By: Stephanie Zhang on 06-30-2021 [employer] Work Phone: ABG Room Air; Arterialon Allens Test Yes [employer] Base excess Calc (Bld) [Moles/Vol] -1.6000 mmol/L -2.0 - 2.0 mmol/L [employer] CO2 (Bld) [Partial pressure] 30.7 mm[Hg] Low [employer] HCO3 (Bld) [Moles/Vol] 21.1 mmol/L Low 22.0 - 26.0 mmol/L [employer] Interpretation and review of laboratory results Abnormal [employer] O2 Device Room Air [employer] Oxygen (Bld) [Partial pressure] 81.2 mm[Hg] [employer] pH (Bld) 7.456 [pH] High [employer] Sample Site Left Radial [employer] Sample Type Blood Arterial [employer] SO2 96.6 % Low 97.0 - 100.0 % [employer] Blood cultures X2on 06-29-19 22 Bacteria identified Cx Nom (Bld) [employer] CBC WITH DIFFERENTIALon 06-01 ABSOLUTE BASO 0.0 10 3/uL Normal 0.0-0.1 [employer] Comment on above: Performed By: #### G FR1 #### [place] [address] ABSOLUTE EOSIN 0.2 10 3/uL Normal 0.1-0.3 [employer] Comment on above: Performed By: #### G FR1 #### [place] [address] ABSOLUTE LYMPH 1.1 10 3/uL Low 1.2-3.3 [employer] Comment on above: Performed By: #### G FR1 #### [place] [address] ABSOLUTE MONO 0.6 10 3/uL Normal 0.2-0.6 [facility] [employer] [facility] Comment on above: Performed By: #### Jose FR1 #### [place] [address] ABSOLUTE NEUT 4.6 10 3/uL Normal 2.4-6.6 [employer] Comment on above: Performed By: #### Jose FR1 #### [place] [address] Basophils/100 WBC (Bld) 0.6 % Normal [facility] [employer] [facility] Comment on above: Performed By: #### Jose FR1 #### [place] [address] Eosinophils/100 WBC (Bld) 2.6 % Normal [facility] [employer] Comment on above: Performed By: #### Jose FR1 #### [employer] [place] [address] Erythrocyte distribution width (RBC) [Ratio] 18.6 % High 11.5-14.5 [facility] [employer] Comment on above: Performed By: #### Jose FR1 #### [employer] [place] [address] Hematocrit (Bld) [Volume fraction] 31.3 % Low 37.7-51.1 [employer] Comment on above: Performed By: #### Jose FR1 #### [place] [address] Hemoglobin (Bld) [Mass/Vol] 10.2 g/dL Low 12.8-17.7 [employer] Comment on above: Performed By: #### Jose FR1 #### [place] [address] IG ABSOLUTE 0.1 10 3/uL Normal 0 [employer] Comment on above: Performed By: #### Jose FR1 #### [place] [address] IG PERCENT 0.9 % Normal [facility] Comment on above: Performed By: #### G FR1 #### [place] [address] Lymphocytes/100 WBC (Bld) 16.1 % Normal [facility] Comment on above: Performed By: #### Jose FR1 #### [place] [address] MCH (RBC) [Entitic mass] 35.3 pg High 27.0-34.2 [facility] Comment on above: Performed By: #### Jose FR1 #### [place] [address] MCHC (RBC) [Mass/Vol] 32.6 g/dL Normal 31.4-36.2 [facility] Comment on above: Performed By: #### Jose FR1 #### [place] [address] MCV (RBC) [Entitic vol] 108.3 fL High 80.6-99.0 G [facility] [employer] [facility] Comment on above: Performed By: #### Jose FR1 #### [place] [address] Monocytes/100 WBC (Bld) 9.2 % Normal G [facility] [employer] [facility] Comment on above: Performed By: #### G FR1 #### [employer] [place] [address] Neutrophils/100 WBC (Bld) 70.6 % Normal [facility] Comment on above: Performed By: #### G FR1 #### [employer] [place] [address] NRBC 0 Normal 0-1 [facility] Comment on above: Performed By: #### G FR1 #### [employer] [place] [address] PLATELET 142.0 x10 3/uL Low 150.0-400.0 [facility] [employer] [facility] Comment on above: Performed By: #### G FR1 #### [employer] [place] [address] RBC 2.89 x10 6/uL Low 3.70-5.70 [facility] [employer] [facility] Comment on above: Performed By: #### G FR1 #### [employer] [place] [address] WBC 6.5 x10 3/uL Normal 4.3-10.3 [facility] Comment on above: Performed By: #### G FR1 #### [place] [place] [address] CBC with differentialon 06-01 Absolute Immature Granulocytes 0.1 0 10 3/uL [employer] Absolute Lymph 1.1 Low [facility] [employer] [place] 0.6 [facility] Basophils (Bld) [#/Vol] 0.0 10*3/uL [facility] [employer] Basophils/100 WBC (Bld) 0.6 % G [facility] [employer] [facility] Eosinophils (Bld) [#/Vol] 0.2 10*3/uL [facility] Eosinophils/100 WBC (Bld) 2.6 % [facility] Erythrocyte distribution width (RBC) [Ratio] 18.6 % High 11.5 - 14.5 % [facility] [employer] [facility] Hematocrit (Bld) [Volume fraction] 31.3 % Low 37.7 - 51.1 % [facility] Hemoglobin (Bld) [Mass/Vol] 10.2 g/dL Low 12.8 - 17.7 g/dL [facility] [employer] Immature granulocytes/100 WBC (Bld) 0.9 % [facility] [employer] Interpretation and review of laboratory results Abnormal [facility] [employer] [facility] Lymphocytes/100 WBC (Bld) 16.1 % [facility] MCH (RBC) [Entitic mass] 35.3 pg High 27.0 - 34.2 pg [facility] MCHC (RBC) [Mass/Vol] 32.6 g/dL 31.4 - 36.2 g/dl [facility] MCV (RBC) [Entitic vol] 108.3 fL High 80.6 - 99.0 fL [facility] [employer] Monocytes/100 WBC (Bld) 9.2 % [facility] Neutrophils (Bld) [#/Vol] 4.6 10*3/uL [facility] Neutrophils/100 WBC (Bld) 70.6 % [facility] Platelets (Bld) [#/Vol] 142.0 10*3/uL Low [facility] RBC (Bld) [#/Vol] 2.89 10*6/uL Low [facility] WBC LM Ql (Sput) 6.5 [facility] Comprehensive metabolic pane konrad 06-29-2021 Albumin [Mass/Vol] 3.2 g/dL Low 3.5 - 5.0 g/dL [facility] Alk Phos 149 U/L High 24 - 126 U/L [facility] ALT [Catalytic activity/Vol] 76 U/L High 4 - 50 U/L [facility] AST [Catalytic activity/Vol] 95 U/L High 3 - 55 U/L [facility] Bilirubin [Mass/Vol] 1.5 mg/dL 0.2 - 1 .6 mg/dL [facility] Calcium [Mass/Vol] 8.5 mg/dL 8.4 - 10. 4 mg/dL [facility] Chloride [Moles/Vol] 105 mmol/L 96 - 10 9 mmol/L [facility] CO2 [Moles/Vol] 21 mmol/L Low 22 - 30 mmol/L [facility] Creatinine [Mass/Vol] 0.41 mg/dL Low 0.66 - 1.25 mg/dL [facility] Glucose [Mass/Vol] 90 mg/dL 65 - 100 mg/dL [facility] Interpretation and review of laboratory results Abnormal [facility] Potassium [Moles/Vol] 3.9 mmol/L 3.6 - 5.1 mmol/L [facility] Protein [Mass/Vol] 6.8 g/dL 6.3 - 8.2 g/dL [facility] Sodium [Moles/Vol] 135 mmol/L 135 - 147 mmol/L [facility] Urea nitrogen [Mass/Vol] 4 mg/dL Low 8 - 26 mg/dL [facility] GFRon 06-29-2021 GFR >60 Normal [facility] Comment on above: Result Comment: To e stimate the GFR for Americans, multiply the result provided by 1.21. Population mean GFR = 116 ml/min/1.73 sq.m. for ages 18-29 yrs. The MDRD is validated in individuals 18-70 years of age. It is less accurate in patients with extremes of muscle mass, restriction of dietary protein, ingestion of creatine, extra-renal metabolism of creatinine, or treatment with medications that affect renal tubular creatinine secretion. GFR Categories in Chronic Kidney Disease (CKD) Category: GFR(mL/min/1.73m^2) Interpretation: G1* 90 or greater Normal or high G2* 60-89 Mild decrease G3a 45-59 Mild to moderate decrease G3b 30-44 Moderate to severe decrease G4 15-29 Severe decrease G5 14 or less Kidney failure *G1&G2: In the absence of evidence of kidney damage, neither GFR category G1 nor G2 fulfill the criteria for CKD Kidney Int Suppl.2013;3:1-150 Performed By: #### [id number] #### [employer] [place] [address] GLOMERULAR FILTRATION RATEon 06-29-2021 GFR >60 [facility] Laboratory - Microbiology an d Antimicrobial susceptibilityon 06-29-2021 Bacteria identified Respiratory culture Nom (Sput) [facility] MAGNESIUMon 06-29-2021 Magnesium [Mass/Vol] 2.0 mg/dL Normal 1.6-2.3 [facility] Comment on above: Performed By: #### G FR1 #### [place] [address] METABOLIC PANELon 06-29-2021 ALK PHOS 149 U/L High 24-126 [facility] Comment on above: Performed By: #### 4 [id number] #### [employer] [place] [address] ALT [Catalytic activity/Vol] 76 U/L High 4-50 [facility] Comment on above: Performed By: #### [id number] #### [employer] [place] [address] AST [Catalytic activity/Vol] 95 U/L High 3-55 [facility] [employer] [facility] Comment on above: Performed By: #### 4 [id number] #### [place] [address] Calcium [Mass/Vol] 8.5 mg/dL Normal 8.4-10.4 [facility] [employer] [facility] Comment on above: Performed By: #### 4 [id number] #### [place] [address] CO2 [Moles/Vol] 21 mmol/L Low 22-30 [facility] [employer] [facility] Comment on above: Performed By: #### 4 [id number] #### [place] [address] Glucose [Mass/Vol] 90 mg/dL Normal 65-100 [facility] [employer] [facility] Comment on above: Performed By: #### 4 [id number] #### [place] [address] Protein [Mass/Vol] 6.8 g/dL Normal 6.3-8.2 [facility] [employer] [facility] Comment on above: Performed By: #### 4 [id number] #### [place] [address] Urea nitrogen [Mass/Vol] 4 mg/dL Low 8-26 [facility] [employer] [facility] Comment on above: Performed By: #### 4 [id number] #### [place] [address] Bilirubin [Mass/Vol] 1.5 mg/dL Normal 0.2-1.6 [facility] [employer] Comment on above: Performed By: #### 4 [id number] #### [place] [address] Creatinine [Mass/Vol] 0.41 mg/dL Low 0.66-1.25 [facility] [employer] [facility] Comment on above: Performed By: #### 4 [id number] #### [place] [address] Albumin [Mass/Vol] 3.2 g/dL Low 3.5-5.0 [employer] Comment on above: Performed By: #### 4 [id number] #### [place] [address] Potassium [Moles/Vol] 3.9 mmol/L Normal 3.6-5.1 [facility] [employer] Comment on above: Performed By: #### 4 [id number] #### [place] [address] Sodium [Moles/Vol] 135 mmol/L Normal 135-147 [employer] Comment on above: Performed By: #### 4 [id number] #### [place] [address] Chloride [Moles/Vol] 105 mmol/L Normal 96-109 [facility] [employer] Comment on above: Performed By: #### 4 [id number] #### [place] [address] Magnesiumon 06-29-2021 Magnesium [Mass/Vol] 2.0 mg/dL 1.6 - 2 .3 mg/dL [employer] No Panel Informationon 06-29 [facility] [employer] nRBC 0 [employer] PHOSPHORUSon 06-29-2021 Phosphate [Mass/Vol] 3.9 mg/dL Normal 2.5-4.5 [facility] [employer] Comment on above: Performed By: #### G FR1 #### [place] [address] Phosphate [Mass/Vol] 3.9 mg/dL 2.5 - 4 .5 mg/dL [employer] Sputum culture (includes gra m stain)on 06-29-2021 Bacteria identified Respiratory culture Nom (Sput) SPARSE GROWTH [facility] [employer] Gram Stain of Culture [facility] [employer] [facility] [employer] XR ABDOMEN 1 VIEWon 06-29-19 XR ABDOMEN 1 VIEW EXAM: XR ABDOMEN 1 VIEW HISTORY: Distention. COMPARISON: CT dated 06/24/2021. TECHNIQUE: 2 supine portable frontal views were obtained. FINDINGS: The bowel gas pattern is normal. No free air is seen. No calcifications are seen overlying the kidneys or ureters. The visualized lung bases are clear. Osseous structures are normal. IMPRESSION: Grossly negative exam. If clinical concern remains, consider further evaluation with CT. Abd. distention Normal [employer] XR Abdomen Single viewon [facility] [employer] Radiology Study observation (narrative) [employer] XR Abdomen Single viewOrdere d By: Shiv Enriquez on 06-29-2021 [employer] Work Phone: CBC WITH DIFFERENTIALon 06-01 ABSOLUTE BASO 0.1 10 3/uL Normal 0.0-0.1 [employer] Comment on above: Performed By: #### G FR1 #### [place] [address] ABSOLUTE EOSIN 0.2 10 3/uL Normal 0.1-0.3 [employer] Comment on above: Performed By: #### G FR1 #### [place] [address] ABSOLUTE LYMPH 1.2 10 3/uL Normal 1.2-3.3 [employer] Comment on above: Performed By: #### G FR1 #### [place] [address] ABSOLUTE MONO 0.4 10 3/uL Normal 0.2-0.6 [employer] Comment on above: Performed By: #### G FR1 #### [place] [address] ABSOLUTE NEUT 4.3 10 3/uL Normal 2.4-6.6 [employer] Comment on above: Performed By: #### G FR1 #### [place] [address] Basophils/100 WBC (Bld) 0.8 % Normal G [employer] Comment on above: Performed By: #### G FR1 #### [place] [address] Eosinophils/100 WBC (Bld) 3.4 % Normal [facility] Comment on above: Performed By: #### G FR1 #### [employer] [place] [address] Erythrocyte distribution width (RBC) [Ratio] 18.3 % High 11.5-14.5 [facility] Comment on above: Performed By: #### G FR1 #### [place] [address] Hematocrit (Bld) [Volume fraction] 30.7 % Low 37.7-51.1 [facility] [employer] [facility] Comment on above: Performed By: #### G FR1 #### [place] [address] Hemoglobin (Bld) [Mass/Vol] 10.2 g/dL Low 12.8-17.7 [facility] [employer] [facility] Comment on above: Performed By: #### Jose FR1 #### [place] [address] IG ABSOLUTE 0.0 10 3/uL Normal 0 [facility] [employer] [facility] Comment on above: Performed By: #### Jose FR1 #### [place] [address] IG PERCENT 0.6 % Normal [facility] Comment on above: Performed By: #### G FR1 #### [place] [address] Lymphocytes/100 WBC (Bld) 18.5 % Normal [facility] Comment on above: Performed By: #### G FR1 #### [place] [address] MCH (RBC) [Entitic mass] 34.9 pg High 27.0-34.2 [facility] Comment on above: Performed By: #### G FR1 #### [place] [address] MCHC (RBC) [Mass/Vol] 33.2 g/dL Normal 31.4-36.2 [facility] [employer] [facility] Comment on above: Performed By: #### G FR1 #### [place] [address] MCV (RBC) [Entitic vol] 105.1 fL High 80.6-99.0 G [facility] [employer] Comment on above: Performed By: #### G FR1 #### [place] [address] Monocytes/100 WBC (Bld) 7.1 % Normal [employer] [facility] Comment on above: Performed By: #### G FR1 #### [place] [address] Neutrophils/100 WBC (Bld) 69.6 % Normal [facility] [employer] Comment on above: Performed By: #### G FR1 #### [place] [address] NRBC 0 Normal 0-1 [facility] [employer] Comment on above: Performed By: #### G FR1 #### [place] [address] PLATELET 150.0 x10 3/uL Normal 150.0-400.0 [facility] [employer] Comment on above: Performed By: #### G FR1 #### [place] [address] RBC 2.92 x10 6/uL Low 3.70-5.70 [employer] Comment on above: Performed By: #### G FR1 #### [employer] [address] [address] WBC 6.2 x10 3/uL Normal 4.3-10.3 [employer] Comment on above: Performed By: #### G FR1 #### [employer] [address] [address] CBC with differentialon 01-3 0-2021 Absolute Immature Granulocytes 0.0 0 10 3/uL [employer] Absolute Lymph 1.2 [facility] [place] 0.4 [facility] Basophils (Bld) [#/Vol] 0.1 10*3/uL [facility] Basophils/100 WBC (Bld) 0.8 % G [facility] Eosinophils (Bld) [#/Vol] 0.2 10*3/uL [facility] Eosinophils/100 WBC (Bld) 3.4 % [facility] Erythrocyte distribution width (RBC) [Ratio] 18.3 % High 11.5 - 14.5 % [facility] Hematocrit (Bld) [Volume fraction] 30.7 % Low 37.7 - 51.1 % [facility] Hemoglobin (Bld) [Mass/Vol] 10.2 g/dL Low 12.8 - 17.7 g/dL [facility] Immature granulocytes/100 WBC (Bld) 0.6 % [facility] Lymphocytes/100 WBC (Bld) 18.5 % [facility] MCH (RBC) [Entitic mass] 34.9 pg High 27.0 - 34.2 pg [facility] MCHC (RBC) [Mass/Vol] 33.2 g/dL 31.4 - 36.2 g/dl [facility] MCV (RBC) [Entitic vol] 105.1 fL High 80.6 - 99.0 fL [facility] Monocytes/100 WBC (Bld) 7.1 % G [facility] Neutrophils (Bld) [#/Vol] 4.3 10*3/uL [facility] Neutrophils/100 WBC (Bld) 69.6 % [facility] Platelets (Bld) [#/Vol] 150.0 10*3/uL [facility] RBC (Bld) [#/Vol] 2.92 10*6/uL Low [facility] WBC LM Ql (Sput) 6.2 [facility] Comprehensive metabolic pane konrad 06-28-2021 Albumin [Mass/Vol] 3.0 g/dL Low 3.5 - 5.0 g/dL [facility] Alk Phos 136 U/L High 24 - 126 U/L [facility] ALT [Catalytic activity/Vol] 59 U/L High 4 - 50 U/L [facility] AST [Catalytic activity/Vol] 69 U/L High 3 - 55 U/L [facility] Bilirubin [Mass/Vol] 1.7 mg/dL High 0.2 - 1 .6 mg/dL [facility] Calcium [Mass/Vol] 8.0 mg/dL Low 8.4 - 10. 4 mg/dL [facility] Chloride [Moles/Vol] 104 mmol/L 96 - 10 9 mmol/L [facility] CO2 [Moles/Vol] 23 mmol/L 22 - 30 mmol/L [facility] Creatinine [Mass/Vol] 0.39 mg/dL Low 0.66 - 1.25 mg/dL [facility] Glucose [Mass/Vol] 112 mg/dL High 65 - 100 mg/dL [facility] Interpretation and review of laboratory results Abnormal [facility] Protein [Mass/Vol] 6.6 g/dL 6.3 - 8.2 g/dL [facility] Sodium [Moles/Vol] 133 mmol/L Low 135 - 147 mmol/L [facility] Urea nitrogen [Mass/Vol] 3 mg/dL Low 8 - 26 mg/dL [facility] GFRon 06-28-2021 GFR >60 Normal [facility] Comment on above: Result Comment: To e stimate the GFR for Americans, multiply the result provided by 1.21. Population mean GFR = 116 ml/min/1.73 sq.m. for ages 18-29 yrs. The MDRD is validated in individuals 18-70 years of age. It is less accurate in patients with extremes of muscle mass, restriction of dietary protein, ingestion of creatine, extra-renal metabolism of creatinine, or treatment with medications that affect renal tubular creatinine secretion. GFR Categories in Chronic Kidney Disease (CKD) Category: GFR(mL/min/1.73m^2) Interpretation: G1* 90 or greater Normal or high G2* 60-89 Mild decrease G3a 45-59 Mild to moderate decrease G3b 30-44 Moderate to severe decrease G4 15-29 Severe decrease G5 14 or less Kidney failure *G1&G2: In the absence of evidence of kidney damage, neither GFR category G1 nor G2 fulfill the criteria for CKD Kidney Int Suppl.2013;3:1-150 Performed By: #### 4 [id number] #### [facility] [address] [address] GLOMERULAR FILTRATION RATEon 06-28-2021 GFR >60 [facility] [employer] [facility] GLUCOSE-POCon 06-28-2021 Glucose [Mass/Vol] 114 mg/dL High 65-100 [facility] [employer] [facility] Comment on above: Performed By: #### 4 [id number] #### [employer] [place] [id number] Glucose [Mass/Vol] 100 mg/dL Normal 65-100 [facility] [employer] [facility] Comment on above: Performed By: #### 4 [id number] #### [employer] [place] [id number] Glucose [Mass/Vol] 109 mg/dL High 65-100 [employer] [facility] Comment on above: Performed By: #### 4 [id number] #### [employer] [place] [id number] Glucose [Mass/Vol] 101 mg/dL High 65-100 [facility] [employer] [facility] Comment on above: Performed By: #### G FR1 #### [employer] [address] [address] Glucose [Mass/Vol] 106 mg/dL High 65-100 [facility] [employer] [facility] Comment on above: Performed By: #### 4 [id number] #### [employer] [place] [id number] MAGNESIUMon 06-28-2021 Magnesium [Mass/Vol] 1.5 mg/dL Low 1.6-2.3 [employer] Comment on above: Performed By: #### 4 [id number] #### [employer] [address] [address] METABOLIC PANELon 06-28-2021 Chloride [Moles/Vol] 104 mmol/L Normal 96-109 [employer] Comment on above: Performed By: #### 4 [id number] #### [employer] [address] [address] Calcium [Mass/Vol] 8.0 mg/dL Low 8.4-10.4 [facility] [employer] [facility] Comment on above: Performed By: #### 4 [id number] #### [place] [address] ALK PHOS 136 U/L High 24-126 [facility] [employer] Comment on above: Performed By: #### 4 [id number] #### [place] [address] ALT [Catalytic activity/Vol] 59 U/L High 4-50 [facility] [employer] Comment on above: Performed By: #### 4 [id number] #### [place] [address] AST [Catalytic activity/Vol] 69 U/L High 3-55 [facility] [employer] Comment on above: Performed By: #### 4 [id number] #### [place] [address] Bilirubin [Mass/Vol] 1.7 mg/dL High 0.2-1.6 [facility] [employer] Comment on above: Performed By: #### 4 [id number] #### [place] [address] CO2 [Moles/Vol] 23 mmol/L Normal 22-30 [facility] [employer] Comment on above: Performed By: #### 4 [id number] #### [place] [address] Creatinine [Mass/Vol] 0.39 mg/dL Low 0.66-1.25 [facility] [employer] [facility] Comment on above: Performed By: #### 4 [id number] #### [place] [address] Glucose [Mass/Vol] 112 mg/dL High 65-100 [facility] [employer] Comment on above: Performed By: #### 4 [id number] #### [place] [address] Protein [Mass/Vol] 6.6 g/dL Normal 6.3-8.2 [facility] Comment on above: Performed By: #### 4 [id number] #### [place] [address] Urea nitrogen [Mass/Vol] 3 mg/dL Low 8-26 [facility] Comment on above: Performed By: #### 4 [id number] #### [place] [address] Sodium [Moles/Vol] 133 mmol/L Low 135-147 [facility] Comment on above: Performed By: #### 4 [id number] #### [place] [address] Albumin [Mass/Vol] 3.0 g/dL Low 3.5-5.0 [facility] Comment on above: Performed By: #### 4 [id number] #### [place] [address] Potassium [Moles/Vol] 3.4 mmol/L Low 3.6-5.1 [facility] Comment on above: Performed By: #### 4 [id number] #### [place] [address] Magnesiumon 06-28-2021 Interpretation and review of laboratory results Abnormal [facility] Magnesium [Mass/Vol] 1.5 mg/dL Low 1.6 - 2 .3 mg/dL [facility] No Panel Informationon 06-28 [facility] Interpretation and review of laboratory results Abnormal [facility] nRBC 0 [facility] PHOSPHORUSon 06-28-2021 Phosphate [Mass/Vol] 2.7 mg/dL Normal 2.5-4.5 [facility] Comment on above: Performed By: #### G FR1 #### [place] [id number] Phosphate [Mass/Vol] 2.7 mg/dL 2.5 - 4 .5 mg/dL [facility] POCT glucoseon 06-28-2021 Glucose [Mass/Vol] 114 mg/dL High 65 - 100 mg/dL [facility] Interpretation and review of laboratory results Abnormal [facility] Glucose [Mass/Vol] 100 mg/dL 65 - 100 mg/dL [facility] Glucose [Mass/Vol] 101 mg/dL High 65 - 100 mg/dL [facility] Interpretation and review of laboratory results Abnormal [facility] Basic metabolic panelon 05-31 Calcium [Mass/Vol] 7.5 mg/dL Low 8.4 - 10. 4 mg/dL [facility] Chloride [Moles/Vol] 110 mmol/L High 96 - 10 9 mmol/L [facility] CO2 [Moles/Vol] 24 mmol/L 22 - 30 mmol/L [facility] Creatinine [Mass/Vol] 0.41 mg/dL Low 0.66 - 1.25 mg/dL [facility] Glucose [Mass/Vol] 58 mg/dL Low 65 - 100 mg/dL [facility] Potassium [Moles/Vol] 4.6 mmol/L 3.6 - 5.1 mmol/L [facility] Sodium [Moles/Vol] 140 mmol/L 135 - 147 mmol/L [facility] Urea nitrogen [Mass/Vol] 5 mg/dL Low 8 - 26 mg/dL [facility] Calcium [Mass/Vol] 7.2 mg/dL Low 8.4 - 10. 4 mg/dL [facility] Chloride [Moles/Vol] 109 mmol/L 96 - 10 9 mmol/L [facility] CO2 [Moles/Vol] 26 mmol/L 22 - 30 mmol/L [facility] Creatinine [Mass/Vol] 0.43 mg/dL Low 0.66 - 1.25 mg/dL [facility] Glucose [Mass/Vol] 66 mg/dL 65 - 100 mg/dL [facility] Interpretation and review of laboratory results Abnormal [facility] Potassium [Moles/Vol] 3.9 mmol/L 3.6 - 5.1 mmol/L [facility] Sodium [Moles/Vol] 140 mmol/L 135 - 147 mmol/L [facility] Urea nitrogen [Mass/Vol] 5 mg/dL Low 8 - 26 mg/dL [facility] CBC WITH DIFFERENTIALon 05-31 ABSOLUTE BASO 0.1 10 3/uL Normal 0.0-0.1 [facility] Comment on above: Performed By: #### 4 [id number] ####[facility] [employer] [facility] [address] [phone] ABSOLUTE EOSIN 0.2 10 3/uL Normal 0.1-0.3 [facility] [employer] Comment on above: Performed By: #### 4 [id number] ####[facility] [employer] [facility] [address] [phone] ABSOLUTE LYMPH 1.2 10 3/uL Normal 1.2-3.3 [facility] [employer] Comment on above: Performed By: #### 4 [id number] ####[facility] [employer] [facility] [address] [phone] ABSOLUTE MONO 0.3 10 3/uL Normal 0.2-0.6 [facility] [employer] Comment on above: Performed By: #### 4 [id number] ####[facility] [employer] [facility] [address] [phone] ABSOLUTE NEUT 4.7 10 3/uL Normal 2.4-6.6 [facility] [employer] Comment on above: Performed By: #### 4 [id number] ####[facility] [employer] [facility] [address] [phone] Basophils/100 WBC (Bld) 1.2 % Normal G [facility] Comment on above: Performed By: #### 4 [id number] ####[facility] [employer] [facility] [address] [phone] Eosinophils/100 WBC (Bld) 3.1 % Normal [facility] [employer] Comment on above: Performed By: #### 4 [id number] ####[facility] [employer] [facility] [address] [phone] Erythrocyte distribution width (RBC) [Ratio] 18.6 % High 11.5-14.5 [facility] [employer] Comment on above: Performed By: #### 4 [id number] ####[facility] [employer] [facility] [address] [phone] Hematocrit (Bld) [Volume fraction] 29.5 % Low 37.7-51.1 [facility] [employer] [facility] Comment on above: Performed By: #### 4 [id number] ####[facility] [employer] [facility] [address] [phone] Hemoglobin (Bld) [Mass/Vol] 9.9 g/dL Low 12.8-17.7 [facility] [employer] [facility] Comment on above: Performed By: #### 4 [id number] ####[facility] [employer] [facility] [address] [phone] IG ABSOLUTE 0.0 10 3/uL Normal 0 [facility] [employer] Comment on above: Performed By: #### 4 [id number] ####[facility] [employer] [facility] [address] [phone] IG PERCENT 0.5 % Normal [facility] [employer] Comment on above: Performed By: #### 4 [id number] ####[facility] [employer] [address] [phone] Lymphocytes/100 WBC (Bld) 18.5 % Normal [facility] [employer] Comment on above: Performed By: #### 4 [id number] ####[employer] [address] [phone] MCH (RBC) [Entitic mass] 35.5 pg High 27.0-34.2 [facility] [employer] Comment on above: Performed By: #### 4 [id number] ####[employer] [employer] [address] [phone] MCHC (RBC) [Mass/Vol] 33.6 g/dL Normal 31.4-36.2 [facility] [employer] [facility] Comment on above: Performed By: #### 4 [id number] ####[employer] [address] [phone] MCV (RBC) [Entitic vol] 105.7 fL High 80.6-99.0 G [facility] [employer] Comment on above: Performed By: #### 4 [id number] ####[employer] [address] [phone] Monocytes/100 WBC (Bld) 5.1 % Normal [facility] [employer] [facility] Comment on above: Performed By: #### 4 [id number] ####[employer] [address] [phone] Neutrophils/100 WBC (Bld) 71.6 % Normal [facility] [employer] Comment on above: Performed By: #### 4 [id number] ####[employer] [address] [phone] NRBC 0 Normal 0-1 [employer] Comment on above: Performed By: #### 4 [id number] ####[employer] [address] [phone] PLATELET 141.0 x10 3/uL Low 150.0-400.0 [employer] Comment on above: Performed By: #### 4 [id number] ####[employer] [address] [phone] RBC 2.79 x10 6/uL Low 3.70-5.70 [employer] Comment on above: Performed By: #### 4 [id number] ####[employer] [address] [phone] WBC 6.5 x10 3/uL Normal 4.3-10.3 [employer] Comment on above: Performed By: #### 4 [id number] ####[employer] [address] [phone] CBC with differentialon 05-31 Absolute Immature Granulocytes 0.0 0 10 3/uL [employer] Absolute Lymph 1.2 [employer] [facility] [place] 0.3 [employer] Basophils (Bld) [#/Vol] 0.1 10*3/uL [employer] Basophils/100 WBC (Bld) 1.2 % [facility] Eosinophils (Bld) [#/Vol] 0.2 10*3/uL [employer] Eosinophils/100 WBC (Bld) 3.1 % [employer] Erythrocyte distribution width (RBC) [Ratio] 18.6 % High 11.5 - 14.5 % [facility] Hematocrit (Bld) [Volume fraction] 29.5 % Low 37.7 - 51.1 % [facility] Hemoglobin (Bld) [Mass/Vol] 9.9 g/dL Low 12.8 - 17.7 g/dL [facility] Immature granulocytes/100 WBC (Bld) 0.5 % [facility] Interpretation and review of laboratory results Abnormal [facility] Lymphocytes/100 WBC (Bld) 18.5 % [facility] MCH (RBC) [Entitic mass] 35.5 pg High 27.0 - 34.2 pg [facility] MCHC (RBC) [Mass/Vol] 33.6 g/dL 31.4 - 36.2 g/dl [facility] MCV (RBC) [Entitic vol] 105.7 fL High 80.6 - 99.0 fL [facility] Monocytes/100 WBC (Bld) 5.1 % [facility] Neutrophils (Bld) [#/Vol] 4.7 10*3/uL [facility] Neutrophils/100 WBC (Bld) 71.6 % [facility] Platelets (Bld) [#/Vol] 141.0 10*3/uL Low [facility] RBC (Bld) [#/Vol] 2.79 10*6/uL Low [facility] WBC LM Ql (Sput) 6.5 [facility] CHEM 806-27-2021 Calcium [Mass/Vol] 7.5 mg/dL Low 8.4-10.4 [facility] Comment on above: Performed By: #### 3 [id number] #### [place] [address] CO2 [Moles/Vol] 24 mmol/L Normal 22-30 [facility] Comment on above: Performed By: #### 3 [id number] #### [place] [id number] Glucose [Mass/Vol] 58 mg/dL Low 65-100 [facility] [employer] [facility] Comment on above: Performed By: #### 3 [id number] #### [place] [id number] Urea nitrogen [Mass/Vol] 5 mg/dL Low 8-26 [facility] Comment on above: Performed By: #### 3 [id number] #### [place] [address] Creatinine [Mass/Vol] 0.41 mg/dL Low 0.66-1.25 [facility] [employer] Comment on above: Performed By: #### 3 [id number] #### [place] [address] Potassium [Moles/Vol] 4.6 mmol/L Normal 3.6-5.1 [facility] [employer] Comment on above: Performed By: #### 3 [id number] #### [place] [address] Chloride [Moles/Vol] 110 mmol/L High 96-109 [facility] [employer] Comment on above: Performed By: #### 3 [id number] #### [place] [address] Sodium [Moles/Vol] 140 mmol/L Normal 135-147 [facility] [employer] Comment on above: Performed By: #### 3 [id number] #### [place] [address] Calcium [Mass/Vol] 7.2 mg/dL Low 8.4-10.4 [facility] [employer] Comment on above: Performed By: #### 4 [id number] #### [place] [address] Glucose [Mass/Vol] 66 mg/dL Normal 65-100 [facility] [employer] Comment on above: Performed By: #### 4 [id number] #### [employer] [place] [phone] Urea nitrogen [Mass/Vol] 5 mg/dL Low 8-26 [facility] [employer] Comment on above: Performed By: #### 4 [id number] #### [employer] [place] [phone] CO2 [Moles/Vol] 26 mmol/L Normal 22-30 [facility] [employer] [facility] Comment on above: Performed By: #### 4 [id number] #### [employer] [place] [address] Creatinine [Mass/Vol] 0.43 mg/dL Low 0.66-1.25 [facility] [employer] [facility] Comment on above: Performed By: #### 4 [id number] #### [employer] [place] [address] Chloride [Moles/Vol] 109 mmol/L Normal 96-109 [facility] [employer] [facility] Comment on above: Performed By: #### 4 [id number] #### [employer] [place] [address] Potassium [Moles/Vol] 3.9 mmol/L Normal 3.6-5.1 [facility] [employer] Comment on above: Performed By: #### 4 [id number] #### [employer] [place] [address] Sodium [Moles/Vol] 140 mmol/L Normal 135-147 [facility] Comment on above: Performed By: #### 4 [id number] #### [employer] [place] [address] GFRon 06-27-2021 GFR >60 Normal [facility] Comment on above: Result Comment: To e stimate the GFR for Americans, multiply the result provided by 1.21. Population mean GFR = 116 ml/min/1.73 sq.m. for ages 18-29 yrs. The MDRD is validated in individuals 18-70 years of age. It is less accurate in patients with extremes of muscle mass, restriction of dietary protein, ingestion of creatine, extra-renal metabolism of creatinine, or treatment with medications that affect renal tubular creatinine secretion. GFR Categories in Chronic Kidney Disease (CKD) Category: GFR(mL/min/1.73m^2) Interpretation: G1* 90 or greater Normal or high G2* 60-89 Mild decrease G3a 45-59 Mild to moderate decrease G3b 30-44 Moderate to severe decrease G4 15-29 Severe decrease G5 14 or less Kidney failure *G1&G2: In the absence of evidence of kidney damage, neither GFR category G1 nor G2 fulfill the criteria for CKD Kidney Int Suppl.2013;3:1150 Performed By: #### G FR1 #### [place] [address] GFR >60 Normal [facility] Comment on above: Result Comment: To e stimate the GFR for Americans, multiply the result provided by 1.21. Population mean GFR = 116 ml/min/1.73 sq.m. for ages 18-29 yrs. The MDRD is validated in individuals 18-70 years of age. It is less accurate in patients with extremes of muscle mass, restriction of dietary protein, ingestion of creatine, extra-renal metabolism of creatinine, or treatment with medications that affect renal tubular creatinine secretion. GFR Categories in Chronic Kidney Disease (CKD) Category: GFR(mL/min/1.73m^2) Interpretation: G1* 90 or greater Normal or high G2* 60-89 Mild decrease G3a 45-59 Mild to moderate decrease G3b 30-44 Moderate to severe decrease G4 15-29 Severe decrease G5 14 or less Kidney failure *G1&G2: In the absence of evidence of kidney damage, neither GFR category G1 nor G2 fulfill the criteria for CKD Kidney Int Suppl.2013;3:150 Performed By: #### 3 [id number] #### [facility] [address] [address] GLOMERULAR FILTRATION RATEon 06-27-2021 GFR >60 [facility] GFR >60 [employer] [facility] GLUCOSE-POCon 06-27-2021 Glucose [Mass/Vol] 95 mg/dL Normal 65-100 [employer] [facility] Comment on above: Performed By: #### 4 [id number] #### [employer] [address] [address] Glucose [Mass/Vol] 80 mg/dL Normal 65-[address] [facility] Comment on above: Performed By: #### G FR1 #### [employer] [address] [address] Glucose [Mass/Vol] 70 mg/dL Normal 65-100 [facility] [employer] Comment on above: Performed By: #### 3 [id number] #### [employer] [address] [address] Glucose [Mass/Vol] 73 mg/dL Normal 65-100 [facility] [employer] [facility] Comment on above: Performed By: #### 4 [id number] #### [employer] [address] [address] Glucose [Mass/Vol] 70 mg/dL Normal 65-100 [facility] [employer] [facility] Comment on above: Performed By: #### 4 [id number] #### [employer] [address] [address] Glucose [Mass/Vol] 264 mg/dL High 65-100 [facility] [employer] [facility] Comment on above: Performed By: #### G FR1 #### [employer] [address] [address] Glucose [Mass/Vol] 57 mg/dL Low 65-[address] [place] [address] [employer] Comment on above: Performed By: #### G FR1 #### [employer] [address] [address] MAGNESIUMon 06-27-2021 Magnesium [Mass/Vol] 1.6 mg/dL Normal 1.6-2.3 [facility] [employer] [facility] Comment on above: Performed By: #### 4 [id number] #### [employer] [address] [address] Magnesiumon 06-27-2021 Magnesium [Mass/Vol] 1.6 mg/dL 1.6 - 2 .3 mg/dL [facility] No Panel Informationon 06-27 Interpretation and review of laboratory results Abnormal [facility] nRBC 0 [facility] PHOSPHORUSon 06-27-2021 Phosphate [Mass/Vol] 2.1 mg/dL Low 2.5-4.5 [facility] Comment on above: Performed By: #### G FR1 #### [place] [address] Phosphate [Mass/Vol] 2.1 mg/dL Low 2.5 - 4 .5 mg/dL [facility] POCT glucoseon 06-27-2021 Glucose [Mass/Vol] 106 mg/dL High 65 - 100 mg/dL [facility] Interpretation and review of laboratory results Abnormal [facility] Glucose [Mass/Vol] 95 mg/dL 65 - 100 mg/dL [facility] Glucose [Mass/Vol] 80 mg/dL 65 - 100 mg/dL [facility] Glucose [Mass/Vol] 70 mg/dL 65 - 100 mg/dL [facility] Glucose [Mass/Vol] 73 mg/dL 65 - 100 mg/dL [facility] Glucose [Mass/Vol] 70 mg/dL 65 - 100 mg/dL [facility] Glucose [Mass/Vol] 264 mg/dL High 65 - 100 mg/dL [facility] Interpretation and review of laboratory results Abnormal [facility] Glucose [Mass/Vol] 57 mg/dL Low 65 - 100 mg/dL [facility] Interpretation and review of laboratory results Abnormal [facility] Urine culture and sensitivit yon 06-27-2021 Bacteria identified Cx Nom (U) SPARSE GROWTH [facility] Bacteria identified Cx Nom (U) [facility] [employer] [facility] Basic metabolic panelon 05-31 Calcium [Mass/Vol] 7.0 mg/dL Low 8.4 - 10. 4 mg/dL [facility] Chloride [Moles/Vol] 111 mmol/L High 96 - 10 9 mmol/L [facility] CO2 [Moles/Vol] 27 mmol/L 22 - 30 mmol/L [facility] Creatinine [Mass/Vol] 0.51 mg/dL Low 0.66 - 1.25 mg/dL [facility] Glucose [Mass/Vol] 75 mg/dL 65 - 100 mg/dL [facility] Interpretation and review of laboratory results Abnormal [facility] Potassium [Moles/Vol] 3.3 mmol/L Low 3.6 - 5.1 mmol/L [facility] Sodium [Moles/Vol] 141 mmol/L 135 - 147 mmol/L [facility] Urea nitrogen [Mass/Vol] 6 mg/dL Low 8 - 26 mg/dL [facility] Calcium [Mass/Vol] 6.8 mg/dL Low 8.4 - 10. 4 mg/dL [facility] CO2 [Moles/Vol] 27 mmol/L 22 - 30 mmol/L [facility] Creatinine [Mass/Vol] 0.55 mg/dL Low 0.66 - 1.25 mg/dL [facility] Glucose [Mass/Vol] 84 mg/dL 65 - 100 mg/dL [facility] Interpretation and review of laboratory results Abnormal [facility] Potassium [Moles/Vol] 3.5 mmol/L Low 3.6 - 5.1 mmol/L [facility] Urea nitrogen [Mass/Vol] 7 mg/dL Low 8 - 26 mg/dL [facility] Calcium [Mass/Vol] 6.5 mg/dL Critically low 8.4 - 1 0.4 mg/dL [facility] Chloride [Moles/Vol] 117 mmol/L High 96 - 10 9 mmol/L [facility] CO2 [Moles/Vol] 23 mmol/L 22 - 30 mmol/L [facility] Creatinine [Mass/Vol] 0.65 mg/dL Low 0.66 - 1.25 mg/dL [facility] Glucose [Mass/Vol] 90 mg/dL 65 - 100 mg/dL [facility] Interpretation and review of laboratory results Abnormal [facility] Potassium [Moles/Vol] 3.7 mmol/L 3.6 - 5.1 mmol/L [facility] Sodium [Moles/Vol] 143 mmol/L 135 - 147 mmol/L [facility] Urea nitrogen [Mass/Vol] 9 mg/dL 8 - 26 mg/dL [facility] Calcium [Mass/Vol] 6.4 mg/dL Critically low 8.4 - 1 0.4 mg/dL [facility] Chloride [Moles/Vol] 115 mmol/L High 96 - 10 9 mmol/L [facility] CO2 [Moles/Vol] 23 mmol/L 22 - 30 mmol/L [facility] Creatinine [Mass/Vol] 0.68 mg/dL 0.66 - 1.25 mg/dL [facility] Glucose [Mass/Vol] 90 mg/dL 65 - 100 mg/dL [facility] Interpretation and review of laboratory results Abnormal [facility] Potassium [Moles/Vol] 3.0 mmol/L Low 3.6 - 5.1 mmol/L [facility] Sodium [Moles/Vol] 141 mmol/L 135 - 147 mmol/L [facility] Urea nitrogen [Mass/Vol] 10 mg/dL 8 - 26 mg/dL [facility] Blood cultures X2on 06-26-19 Interpretation and review of laboratory results Abnormal [facility] [employer] [facility] CBC WITH DIFFERENTIALon 05-31 ABSOLUTE BASO 0.0 10 3/uL Normal 0.0-0.1 [facility] Comment on above: Performed By: #### 4 [id number] #### [employer] [place] [address] ABSOLUTE EOSIN 0.2 10 3/uL Normal 0.1-0.3 [facility] Comment on above: Performed By: #### 4 [id number] #### [employer] [place] [address] ABSOLUTE LYMPH 1.1 10 3/uL Low 1.2-3.3 [facility] Comment on above: Performed By: #### 4 [id number] #### [employer] [place] [address] ABSOLUTE MONO 0.2 10 3/uL Normal 0.2-0.6 [facility] Comment on above: Performed By: #### 4 [id number] #### [employer] [place] [address] ABSOLUTE NEUT 4.8 10 3/uL Normal 2.4-6.6 [facility] Comment on above: Performed By: #### 4 [id number] #### [place] [address] Basophils/100 WBC (Bld) 0.6 % Normal G [facility] Comment on above: Performed By: #### 4 [id number] #### [place] [address] Eosinophils/100 WBC (Bld) 3.0 % Normal [facility] [employer] [facility] Comment on above: Performed By: #### 4 [id number] #### [place] [address] Erythrocyte distribution width (RBC) [Ratio] 19.0 % High 11.5-14.5 [facility] [employer] [facility] Comment on above: Performed By: #### 4 [id number] #### [place] [address] Hematocrit (Bld) [Volume fraction] 26.0 % Low 37.7-51.1 [facility] [employer] [facility] Comment on above: Performed By: #### 4 [id number] #### [place] [address] Hemoglobin (Bld) [Mass/Vol] 8.7 g/dL Low 12.8-17.7 [facility] [employer] Comment on above: Performed By: #### 4 [id number] #### [place] [address] IG ABSOLUTE 0.0 10 3/uL Normal 0 [facility] [employer] [facility] Comment on above: Performed By: #### 4 [id number] #### [place] [address] IG PERCENT 0.5 % Normal [facility] Comment on above: Performed By: #### 4 [id number] #### [employer] [place] [address] Lymphocytes/100 WBC (Bld) 17.3 % Normal [facility] [employer] [facility] Comment on above: Performed By: #### 4 [id number] #### [employer] [place] [address] MCH (RBC) [Entitic mass] 35.5 pg High 27.0-34.2 [facility] [employer] [facility] Comment on above: Performed By: #### 4 [id number] #### [place] [address] MCHC (RBC) [Mass/Vol] 33.5 g/dL Normal 31.4-36.2 [facility] [employer] [facility] Comment on above: Performed By: #### 4 [id number] #### [employer] [address] [address] MCV (RBC) [Entitic vol] 106.1 fL High 80.6-99.0 G [facility] [employer] Comment on above: Performed By: #### 4 [id number] #### [place] [address] Monocytes/100 WBC (Bld) 2.7 % Normal [facility] [employer] Comment on above: Performed By: #### 4 [id number] #### [place] [address] Neutrophils/100 WBC (Bld) 75.9 % Normal [facility] [employer] Comment on above: Performed By: #### 4 [id number] #### [employer] [address] [address] NRBC 0 Normal 0-1 [facility] [employer] Comment on above: Performed By: #### 4 [id number] #### [employer] [address] [address] PLATELET 146.0 x10 3/uL Low 150.0-400.0 [facility] [employer] Comment on above: Performed By: #### 4 [id number] #### [employer] [address] [address] RBC 2.45 x10 6/uL Low 3.70-5.70 [employer] Comment on above: Performed By: #### 4 [id number] #### [employer] [address] [address] WBC 6.3 x10 3/uL Normal 4.3-10.3 [employer] Comment on above: Performed By: #### 4 [id number] #### [employer] [employer] [place] [id number] [place] [id number] CBC with differentialon 05-31 Absolute Immature Granulocytes 0.0 0 10 3/uL [employer] Absolute Lymph 1.1 Low [employer] Absolute [place] 0.2 [employer] Basophils (Bld) [#/Vol] 0.0 10*3/uL [facility] [employer] [facility] Basophils/100 WBC (Bld) 0.6 % [facility] [employer] [facility] Eosinophils (Bld) [#/Vol] 0.2 10*3/uL [facility] [employer] [facility] Eosinophils/100 WBC (Bld) 3.0 % [facility] [employer] [facility] Erythrocyte distribution width (RBC) [Ratio] 19.0 % High 11.5 - 14.5 % [employer] Hematocrit (Bld) [Volume fraction] 26.0 % Low 37.7 - 51.1 % [facility] [employer] [facility] Hemoglobin (Bld) [Mass/Vol] 8.7 g/dL Low 12.8 - 17.7 g/dL [facility] [employer] Immature granulocytes/100 WBC (Bld) 0.5 % [facility] [employer] Interpretation and review of laboratory results Abnormal [facility] Lymphocytes/100 WBC (Bld) 17.3 % [facility] [employer] MCH (RBC) [Entitic mass] 35.5 pg High 27.0 - 34.2 pg [facility] [employer] [facility] MCHC (RBC) [Mass/Vol] 33.5 g/dL 31.4 - 36.2 g/dl [facility] [employer] [facility] MCV (RBC) [Entitic vol] 106.1 fL High 80.6 - 99.0 fL [facility] [employer] [facility] Monocytes/100 WBC (Bld) 2.7 % G [facility] [employer] Neutrophils (Bld) [#/Vol] 4.8 10*3/uL [facility] Neutrophils/100 WBC (Bld) 75.9 % [facility] Platelets (Bld) [#/Vol] 146.0 10*3/uL Low [employer] RBC (Bld) [#/Vol] 2.45 10*6/uL Low [employer] WBC LM Ql (Sput) 6.3 [facility] [employer] [facility] CHEM 8on 06-26-2021 Calcium [Mass/Vol] 7.0 mg/dL Low 8.4-10.4 [employer] Comment on above: Performed By: #### 4 [id number] #### [employer] [address] [address] CO2 [Moles/Vol] 27 mmol/L Normal 22-30 [facility] [employer] Comment on above: Performed By: #### 4 [id number] #### [place] [address] Creatinine [Mass/Vol] 0.51 mg/dL Low 0.66-1.25 [facility] [employer] Comment on above: Performed By: #### 4 [id number] #### [place] [address] Glucose [Mass/Vol] 75 mg/dL Normal 65-100 [employer] Comment on above: Performed By: #### 4 [id number] #### [place] [address] Urea nitrogen [Mass/Vol] 6 mg/dL Low 8-26 [facility] [employer] Comment on above: Performed By: #### 4 [id number] #### [employer] [place] 0457801 Chloride [Moles/Vol] 111 mmol/L High 96-109 [facility] [employer] Comment on above: Performed By: #### 4 [id number] #### [employer] [place] 0457801 Potassium [Moles/Vol] 3.3 mmol/L Low 3.6-5.1 [facility] [employer] Comment on above: Performed By: #### 4 [id number] #### [employer] [address] [address] Sodium [Moles/Vol] 141 mmol/L Normal 135-147 [employer] Comment on above: Performed By: #### 4 [id number] #### [employer] [place] [address]7801 Calcium [Mass/Vol] 6.8 mg/dL Low 8.4-10.4 [facility] [employer] [facility] Comment on above: Performed By: #### G FR1 #### [facility] [employer] [address] [address] CO2 [Moles/Vol] 27 mmol/L Normal 22-30 [facility] [employer] [facility] Comment on above: Performed By: #### G FR1 #### [employer] [address] [address] Creatinine [Mass/Vol] 0.55 mg/dL Low 0.66-1.25 [facility] [employer] [facility] Comment on above: Performed By: #### G FR1 #### [employer] [address] [address] Glucose [Mass/Vol] 84 mg/dL Normal 65-100 [facility] [employer] [facility] Comment on above: Performed By: #### G FR1 #### [employer] [address] [address] Urea nitrogen [Mass/Vol] 7 mg/dL Low 8-26 [facility] [employer] [facility] Comment on above: Performed By: #### G FR1 #### [employer] [address] [address] Chloride [Moles/Vol] 114 mmol/L High 96-109 [facility] [employer] [facility] Comment on above: Performed By: #### G FR1 #### [employer] [address] [address] Sodium [Moles/Vol] 144 mmol/L Normal 135-147 [facility] [employer] [facility] Comment on above: Performed By: #### G FR1 #### [employer] [address] [address] Calcium [Mass/Vol] 6.5 mg/dL Critically low 8.4-10.4 [facility] [employer] Comment on above: Performed By: #### 4 [id number] #### [employer] [address] [address] Glucose [Mass/Vol] 90 mg/dL Normal 65-100 [facility] [employer] [facility] Comment on above: Performed By: #### 4 [id number] #### [employer] [address] [address] CO2 [Moles/Vol] 23 mmol/L Normal 22-30 [facility] [employer] [facility] Comment on above: Performed By: #### 4 [id number] #### [place] [address] Creatinine [Mass/Vol] 0.65 mg/dL Low 0.66-1.25 [facility] [employer] [facility] Comment on above: Performed By: #### 4 [id number] #### [facility] [employer] [place] [id number] Urea nitrogen [Mass/Vol] 9 mg/dL Normal 8-26 [facility] [employer] Comment on above: Performed By: #### 4 [id number] #### [place] [address] Chloride [Moles/Vol] 117 mmol/L High 96-109 [facility] [employer] [facility] Comment on above: Performed By: #### 4 [id number] #### [employer] [address] [address] Potassium [Moles/Vol] 3.7 mmol/L Normal 3.6-5.1 [facility] [employer] Comment on above: Performed By: #### 4 [id number] #### [facility] [employer] [place] [id number] Sodium [Moles/Vol] 143 mmol/L Normal 135-147 [facility] [employer] [facility] Comment on above: Performed By: #### 4 [id number] #### [employer] [address] [address] Potassium [Moles/Vol] 3.5 mmol/L Low 3.6-5.1 [facility] [employer] Comment on above: Performed By: #### G FR1 #### [employer] [address] [address] Calcium [Mass/Vol] 6.4 mg/dL Critically low 8.4-10.4 [facility] Comment on above: Performed By: #### 4 [id number] #### [place] [address] CO2 [Moles/Vol] 23 mmol/L Normal 22-30 [employer] Comment on above: Performed By: #### 4 [id number] #### [place] [address] Glucose [Mass/Vol] 90 mg/dL Normal 65-100 [employer] Comment on above: Performed By: #### 4 [id number] #### [place] [address] Urea nitrogen [Mass/Vol] 10 mg/dL Normal 8-26 [employer] Comment on above: Performed By: #### 4 [id number] #### [place] [address] Creatinine [Mass/Vol] 0.68 mg/dL Normal 0.66-1.25 [facility] [employer] Comment on above: Performed By: #### 4 [id number] #### [place] [address] Chloride [Moles/Vol] 115 mmol/L High 96-109 [facility] [employer] Comment on above: Performed By: #### 4 [id number] #### [place] [address] Potassium [Moles/Vol] 3.0 mmol/L Low 3.6-5.1 [facility] [employer] Comment on above: Performed By: #### 4 [id number] #### [place] [address] Sodium [Moles/Vol] 141 mmol/L Normal 135-147 [employer] Comment on above: Performed By: #### 4 [id number] #### [place] [address] GFRon 06-26-2021 GFR >60 Normal [facility] Comment on above: Result Comment: To e stimate the GFR for Americans, multiply the result provided by 1.21. Population mean GFR = 116 ml/min/1.73 sq.m. for ages 18-29 yrs. The MDRD is validated in individuals 18-70 years of age. It is less accurate in patients with extremes of muscle mass, restriction of dietary protein, ingestion of creatine, extra-renal metabolism of creatinine, or treatment with medications that affect renal tubular creatinine secretion. GFR Categories in Chronic Kidney Disease (CKD) Category: GFR(mL/min/1.73m^2) Interpretation: G1* 90 or greater Normal or high G2* 60-89 Mild decrease G3a 45-59 Mild to moderate decrease G3b 30-44 Moderate to severe decrease G4 15-29 Severe decrease G5 14 or less Kidney failure *G1&G2: In the absence of evidence of kidney damage, neither GFR category G1 nor G2 fulfill the criteria for CKD Kidney Int Suppl.2013;3:1-150 Performed By: #### G FR1 ####[facility] [id number] [place], [place] [phone] GFR >60 Normal [facility] Comment on above: Result Comment: To e stimate the GFR for Americans, multiply the result provided by 1.21. Population mean GFR = 116 ml/min/1.73 sq.m. for ages 18-29 yrs. The MDRD is validated in individuals 18-70 years of age. It is less accurate in patients with extremes of muscle mass, restriction of dietary protein, ingestion of creatine, extra-renal metabolism of creatinine, or treatment with medications that affect renal tubular creatinine secretion. GFR Categories in Chronic Kidney Disease (CKD) Category: GFR(mL/min/1.73m^2) Interpretation: G1* 90 or greater Normal or high G2* 60-89 Mild decrease G3a 45-59 Mild to moderate decrease G3b 30-44 Moderate to severe decrease G4 15-29 Severe decrease G5 14 or less Kidney failure *G1&G2: In the absence of evidence of kidney damage, neither GFR category G1 nor G2 fulfill the criteria for CKD Kidney Int Suppl.2013;3:150 Performed By: #### G FR1 #### [employer] [place] [address] GFR >60 Normal [facility] Comment on above: Result Comment: To e stimate the GFR for Americans, multiply the result provided by 1.21. Population mean GFR = 116 ml/min/1.73 sq.m. for ages 18-29 yrs. The MDRD is validated in individuals 18-70 years of age. It is less accurate in patients with extremes of muscle mass, restriction of dietary protein, ingestion of creatine, extra-renal metabolism of creatinine, or treatment with medications that affect renal tubular creatinine secretion. GFR Categories in Chronic Kidney Disease (CKD) Category: GFR(mL/min/1.73m^2) Interpretation: G1* 90 or greater Normal or high G2* 60-89 Mild decrease G3a 45-59 Mild to moderate decrease G3b 30-44 Moderate to severe decrease G4 15-29 Severe decrease G5 14 or less Kidney failure *G1&G2: In the absence of evidence of kidney damage, neither GFR category G1 nor G2 fulfill the criteria for CKD Kidney Int Suppl.2013;3:150 Performed By: #### 4 [id number] #### [place] [address] GFR >60 Normal [facility] Comment on above: Result Comment: To e stimate the GFR for Americans, multiply the result provided by 1.21. Population mean GFR = 116 ml/min/1.73 sq.m. for ages 18-29 yrs. The MDRD is validated in individuals 18-70 years of age. It is less accurate in patients with extremes of muscle mass, restriction of dietary protein, ingestion of creatine, extra-renal metabolism of creatinine, or treatment with medications that affect renal tubular creatinine secretion. GFR Categories in Chronic Kidney Disease (CKD) Category: GFR(mL/min/1.73m^2) Interpretation: G1* 90 or greater Normal or high G2* 60-89 Mild decrease G3a 45-59 Mild to moderate decrease G3b 30-44 Moderate to severe decrease G4 15-29 Severe decrease G5 14 or less Kidney failure *G1&G2: In the absence of evidence of kidney damage, neither GFR category G1 nor G2 fulfill the criteria for CKD Kidney Int Suppl.2013;3:1-150 Performed By: #### G FR1 ####[address] [phone] GLOMERULAR FILTRATION RATEon 06-26-2021 GFR >60 [facility] GFR >60 [facility] GFR >60 [facility] GFR >60 [facility] Laboratory - Microbiology an d Antimicrobial susceptibilityon 06-26-2021 Bacteria identified Cx Nom (Bld) Abnormal [facility] MAGNESIUMon 06-26-2021 Magnesium [Mass/Vol] 2.2 mg/dL Normal 1.6-2.3 [facility] Comment on above: Performed By: #### 4 [id number] #### [place] [id number] MICon 06-26-2021 Bacteria identified Cx Nom (U) <=0.12 <=0.5 Neg <=0.12 <=16 0.5 <=1 <=10 <=0.5 Susceptible [facility] Comment on above: Performed By: #### 3 [id number] #### [address] [address] Bacteria identified Respiratory culture Nom (Sput) 0.25 <=0.5 Neg <=0.12 0.5 <=1 <=10 <=0.5 Susceptible [facility] Comment on above: Performed By: #### 3 [id number] #### [place] [address] Magnesiumon 06-26-2021 Magnesium [Mass/Vol] 2.2 mg/dL 1.6 - 2 .3 mg/dL [facility] No Panel Informationon 06-26 [facility] nRBC 0 [facility] PHOSPHORUSon 06-26-2021 Phosphate [Mass/Vol] 3.3 mg/dL Normal 2.5-4.5 [facility] Comment on above: Performed By: #### 4 [id number] #### [place] [address] Phosphate [Mass/Vol] 3.3 mg/dL 2.5 - 4 .5 mg/dL [facility] POTASSIUMon 06-26-2021 Potassium [Moles/Vol] 3.5 mmol/L Low 3.6-5.1 [facility] Comment on above: Performed By: #### G FR1 #### [place] [address] Potassiumon 06-26-2021 Interpretation and review of laboratory results Abnormal [facility] SPUTUM CULTUREon 06-26-2021 Bacteria identified Respiratory culture Nom (Sput) Negative Normal [facility] Comment on above: Order Comment: Site: sputum Performed By: #### 4 [id number] #### [place] [address] VANCOMYCIN-TRGHon 06-26-2021 VANCOMYCIN-TRGH 20.5 ug/mL High 15.0-20.0 [facility] Comment on above: Performed By: #### G FR1 #### [place] [id number] Vancomycin, troughon 022 Interpretation and review of laboratory results Abnormal [facility] Vancomycin trough [Mass/Vol] 20.5 ug/mL High 15.0 - 20.0 ug/mL [facility] Basic metabolic panelon 05-31 Calcium [Mass/Vol] 6.2 mg/dL Critically low 8.4 - 1 0.4 mg/dL [facility] Chloride [Moles/Vol] 110 mmol/L High 96 - 10 9 mmol/L [facility] CO2 [Moles/Vol] 21 mmol/L Low 22 - 30 mmol/L [facility] Creatinine [Mass/Vol] 0.82 mg/dL 0.66 - 1.25 mg/dL [facility] Glucose [Mass/Vol] 95 mg/dL 65 - 100 mg/dL [facility] Interpretation and review of laboratory results Abnormal [facility] Potassium [Moles/Vol] 2.4 mmol/L Critically low 3.6 - 5.1 mmol/L [facility] Sodium [Moles/Vol] 139 mmol/L 135 - 147 mmol/L [facility] Urea nitrogen [Mass/Vol] 14 mg/dL 8 - 26 mg/dL [facility] Calcium [Mass/Vol] 6.4 mg/dL Critically low 8.4 - 1 0.4 mg/dL [facility] Chloride [Moles/Vol] 108 mmol/L 96 - 10 9 mmol/L [facility] CO2 [Moles/Vol] 22 mmol/L 22 - 30 mmol/L [facility] Creatinine [Mass/Vol] 0.72 mg/dL 0.66 - 1.25 mg/dL [facility] Glucose [Mass/Vol] 85 mg/dL 65 - 100 mg/dL [facility] Potassium [Moles/Vol] 1.7 mmol/L Critically low 3.6 - 5.1 mmol/L [facility] Sodium [Moles/Vol] 139 mmol/L 135 - 147 mmol/L [facility] Urea nitrogen [Mass/Vol] 15 mg/dL 8 - 26 mg/dL [facility] CBC WITH DIFFERENTIALon 05-31 ABSOLUTE BASO 0.0 10 3/uL Normal 0.0-0.1 [facility] Comment on above: Performed By: #### 4 [id number] ####[facility] [id number] [place], [place] [phone] ABSOLUTE EOSIN 0.1 10 3/uL Normal 0.1-0.3 [facility] Comment on above: Performed By: #### 4 [id number] ####[employer] [address] [phone] ABSOLUTE LYMPH 1.2 10 3/uL Normal 1.2-3.3 [employer] Comment on above: Performed By: #### 4 [id number] ####[employer] [address] [phone] ABSOLUTE MONO 0.2 10 3/uL Normal 0.2-0.6 [employer] Comment on above: Performed By: #### 4 [id number] ####[employer] [address] [phone] ABSOLUTE NEUT 7.4 10 3/uL High 2.4-6.6 [employer] Comment on above: Performed By: #### 4 [id number] ####[employer] [address] [phone] Basophils/100 WBC (Bld) 0.1 % Normal G [facility] [employer] Comment on above: Performed By: #### 4 [id number] ####[employer] [address] [phone] Eosinophils/100 WBC (Bld) 0.6 % Normal [employer] Comment on above: Performed By: #### 4 [id number] ####[employer] [facility] [address] [phone] Erythrocyte distribution width (RBC) [Ratio] 17.3 % High 11.5-14.5 [employer] Comment on above: Performed By: #### 4 [id number] ####[employer] [address] [phone] Hematocrit (Bld) [Volume fraction] 28.4 % Low 37.7-51.1 [employer] Comment on above: Performed By: #### 4 [id number] ####[employer] [address] [phone] Hemoglobin (Bld) [Mass/Vol] 10.0 g/dL Low 12.8-17.7 [facility] Comment on above: Performed By: #### 4 [id number] ####[employer] [address] [phone] IG ABSOLUTE 0.0 10 3/uL Normal 0 [facility] [employer] [facility] Comment on above: Performed By: #### 4 [id number] ####[address] [phone] IG PERCENT 0.3 % Normal [facility] [employer] [facility] Comment on above: Performed By: #### 4 [id number] ####[address] [phone] Lymphocytes/100 WBC (Bld) 13.1 % Normal [facility] [employer] [facility] Comment on above: Performed By: #### 4 [id number] ####[employer] [address] [phone] MCH (RBC) [Entitic mass] 35.0 pg High 27.0-34.2 [facility] Comment on above: Performed By: #### 4 [id number] ####[address] [phone] MCHC (RBC) [Mass/Vol] 35.2 g/dL Normal 31.4-36.2 [facility] Comment on above: Performed By: #### 4 [id number] ####[address] [phone] MCV (RBC) [Entitic vol] 99.3 fL High 80.6-99.0 [facility] [employer] [facility] Comment on above: Performed By: #### 4 [id number] ####[facility] [employer] [address] [phone] Monocytes/100 WBC (Bld) 1.9 % Normal G [facility] [employer] [facility] Comment on above: Performed By: #### 4 [id number] ####[employer] [address] [phone] Neutrophils/100 WBC (Bld) 84.0 % Normal [facility] Comment on above: Performed By: #### 4 [id number] ####[employer] [address] [phone] NRBC 1 Normal 0-1 [employer] [facility] Comment on above: Performed By: #### 4 [id number] ####[employer] [address] [phone] PLATELET 185.0 x10 3/uL Normal 150.0-400.0 [employer] [facility] Comment on above: Performed By: #### 4 [id number] ####[employer] [address] [phone] RBC 2.86 x10 6/uL Low 3.70-5.70 [employer] Comment on above: Performed By: #### 4 [id number] ####[employer] [address] [phone] WBC 8.9 x10 3/uL Normal 4.3-10.3 [facility] [employer] Comment on above: Performed By: #### 4 [id number] ####[employer] [address] [phone] CBC with differentialon 05-31 Absolute Immature Granulocytes 0.0 0 10 3/uL [employer] Absolute Lymph 1.2 [employer] Absolute [place] 0.2 [facility] Basophils (Bld) [#/Vol] 0.0 10*3/uL [facility] Basophils/100 WBC (Bld) 0.1 % G [facility] Eosinophils (Bld) [#/Vol] 0.1 10*3/uL [facility] Eosinophils/100 WBC (Bld) 0.6 % [facility] [employer] Erythrocyte distribution width (RBC) [Ratio] 17.3 % High 11.5 - 14.5 % [employer] [facility] Hematocrit (Bld) [Volume fraction] 28.4 % Low 37.7 - 51.1 % [employer] Hemoglobin (Bld) [Mass/Vol] 10.0 g/dL Low 12.8 - 17.7 g/dL [facility] [employer] Immature granulocytes/100 WBC (Bld) 0.3 % [employer] Interpretation and review of laboratory results Abnormal [facility] Lymphocytes/100 WBC (Bld) 13.1 % [facility] MCH (RBC) [Entitic mass] 35.0 pg High 27.0 - 34.2 pg [facility] MCHC (RBC) [Mass/Vol] 35.2 g/dL 31.4 - 36.2 g/dl [facility] MCV (RBC) [Entitic vol] 99.3 fL High 80.6 - 99.0 fL [facility] Monocytes/100 WBC (Bld) 1.9 % G [facility] Neutrophils (Bld) [#/Vol] 7.4 10*3/uL High [facility] Neutrophils/100 WBC (Bld) 84.0 % [facility] Platelets (Bld) [#/Vol] 185.0 10*3/uL [facility] RBC (Bld) [#/Vol] 2.86 10*6/uL Low [facility] WBC LM Ql (Sput) 8.9 [facility] CHEM 8on 06-25-2021 Calcium [Mass/Vol] 6.2 mg/dL Critically low 8.4-10.4 [facility] Comment on above: Performed By: #### 4 [id number] ####[employer] [address] [phone] CO2 [Moles/Vol] 21 mmol/L Low 22-30 [facility] Comment on above: Performed By: #### 4 [id number] ####[employer] [address] [phone] Glucose [Mass/Vol] 95 mg/dL Normal 65-100 [facility] Comment on above: Performed By: #### 4 [id number] ####[employer] [facility] [id number] [place], [place] [phone] Urea nitrogen [Mass/Vol] 14 mg/dL Normal 8- [facility] Comment on above: Performed By: #### 4 [id number] ####[employer] [facility] [id number] [place], [place] [phone] Creatinine [Mass/Vol] 0.82 mg/dL Normal 0.66-1.25 [facility] [employer] [facility] Comment on above: Performed By: #### 4 [id number] ####[employer] [address] [phone] Potassium [Moles/Vol] 2.4 mmol/L Critically low 3.6-5.1 [employer] Comment on above: Performed By: #### 4 [id number] ####[employer] [address] [phone] Sodium [Moles/Vol] 139 mmol/L Normal 135-147 [facility] Comment on above: Performed By: #### 4 [id number] ####[employer] [address] [phone] Chloride [Moles/Vol] 110 mmol/L High 96-109 [facility] [employer] [facility] Comment on above: Performed By: #### 4 [id number] ####[employer] [address] [phone] Calcium [Mass/Vol] 6.4 mg/dL Critically low 8.4-10.4 [facility] [employer] Comment on above: Performed By: #### 4 [id number] ####[employer] [address] [phone] Glucose [Mass/Vol] 85 mg/dL Normal 65-100 [facility] [employer] [facility] Comment on above: Performed By: #### 4 [id number] ####[employer] [address] [phone] CO2 [Moles/Vol] 22 mmol/L Normal 22-30 [facility] [employer] Comment on above: Performed By: #### 4 [id number] ####[employer] [address] [phone] Creatinine [Mass/Vol] 0.72 mg/dL Normal 0.66-1.25 [facility] [employer] [facility] Comment on above: Performed By: #### 4 [id number] ####[employer] [address] [phone] Urea nitrogen [Mass/Vol] 15 mg/dL Normal 8-26 [facility] Comment on above: Performed By: #### 4 [id number] ####[address] [phone] Chloride [Moles/Vol] 108 mmol/L Normal 96-109 [facility] Comment on above: Performed By: #### 4 [id number] ####[address] [phone] Potassium [Moles/Vol] 1.7 mmol/L Critically low 3.6-5.1 [facility] Comment on above: Performed By: #### 4 [id number] ####[address] [phone] Sodium [Moles/Vol] 139 mmol/L Normal 135-147 [facility] Comment on above: Performed By: #### 4 [id number] ####[address] [phone] COVID MOLECULARon 06-25-2021 SARS-CoV-2 (COVID-19) RNA FRANKLIN+probe Ql (Unsp spec) Negative Normal NEGATIVE [facility] Comment on above: Result Comment: Nega tive results should be treated as presumptive and, if inconsistent with clinical signs and symptoms, test with an alternative FDA authorized molecular PCR assay. Negative results do not preclude SARS-CoV-2 infection and does not rule out co-infections with other pathogens so should not be used as the sole basis for patient management decisions. Negative results should be considered in the context of a patient?s recent exposures, history, and presence of symptoms consistent with COVID-19. This test should not be used on asymptomatic patients. The [employer] COVID-19 EUA has not been FDA cleared or approved. It has been authorized by the FDA under an emergency use authorization for use by authorized laboratories and patient care settings. The test has been authorized only for the detection of nucleic acid from SARS-CoV-2, not for any other viruses or pathogens, and is only authorized for the duration of the declaration that circumstances exist justifying the authorization of emergency use of in vitro diagnostic tests for detection and / or diagnosis of COVID-19, unless the authorization is terminated or revoked sooner. Performed By: #### G FR1 #### [place] [address] Comprehensive metabolic pane konrad 06-25-2021 Albumin [Mass/Vol] 2.3 g/dL Low 3.5 - 5.0 g/dL [facility] Alk Phos 85 U/L 24 - 126 U/L [facility] ALT [Catalytic activity/Vol] 67 U/L High 4 - 50 U/L [facility] AST [Catalytic activity/Vol] 103 U/L High 3 - 55 U/L [facility] Bilirubin [Mass/Vol] 1.6 mg/dL 0.2 - 1 .6 mg/dL [facility] Calcium [Mass/Vol] 6.2 mg/dL Critically low 8.4 - 1 0.4 mg/dL [facility] Chloride [Moles/Vol] 114 mmol/L High 96 - 10 9 mmol/L [facility] CO2 [Moles/Vol] 22 mmol/L 22 - 30 mmol/L [facility] Creatinine [Mass/Vol] 0.72 mg/dL 0.66 - 1.25 mg/dL [facility] Glucose [Mass/Vol] 101 mg/dL High 65 - 100 mg/dL [facility] Interpretation and review of laboratory results Abnormal [facility] Potassium [Moles/Vol] 2.8 mmol/L Critically low 3.6 - 5.1 mmol/L [facility] Protein [Mass/Vol] 5.2 g/dL Low 6.3 - 8.2 g/dL [facility] Sodium [Moles/Vol] 140 mmol/L 135 - 147 mmol/L [facility] Urea nitrogen [Mass/Vol] 11 mg/dL 8 - 26 mg/dL [facility] EKG 12 leadon 06-25-2021 EPIPHANY [facility] GFRon 06-25-2021 GFR >60 Normal [facility] Comment on above: Result Comment: To e stimate the GFR for Americans, multiply the result provided by 1.21. Population mean GFR = 116 ml/min/1.73 sq.m. for ages 18-29 yrs. The MDRD is validated in individuals 18-70 years of age. It is less accurate in patients with extremes of muscle mass, restriction of dietary protein, ingestion of creatine, extra-renal metabolism of creatinine, or treatment with medications that affect renal tubular creatinine secretion. GFR Categories in Chronic Kidney Disease (CKD) Category: GFR(mL/min/1.73m^2) Interpretation: G1* 90 or greater Normal or high G2* 60-89 Mild decrease G3a 45-59 Mild to moderate decrease G3b 30-44 Moderate to severe decrease G4 15-29 Severe decrease G5 14 or less Kidney failure *G1&G2: In the absence of evidence of kidney damage, neither GFR category G1 nor G2 fulfill the criteria for CKD Kidney Int Suppl.2013;3:150 Performed By: #### G FR1 #### [place] [address] GFR >60 Normal [facility] [employer] [facility] Comment on above: Result Comment: To e stimate the GFR for Americans, multiply the result provided by 1.21. Population mean GFR = 116 ml/min/1.73 sq.m. for ages 18-29 yrs. The MDRD is validated in individuals 18-70 years of age. It is less accurate in patients with extremes of muscle mass, restriction of dietary protein, ingestion of creatine, extra-renal metabolism of creatinine, or treatment with medications that affect renal tubular creatinine secretion. GFR Categories in Chronic Kidney Disease (CKD) Category: GFR(mL/min/1.73m^2) Interpretation: G1* 90 or greater Normal or high G2* 60-89 Mild decrease G3a 45-59 Mild to moderate decrease G3b 30-44 Moderate to severe decrease G4 15-29 Severe decrease G5 14 or less Kidney failure *G1&G2: In the absence of evidence of kidney damage, neither GFR category G1 nor G2 fulfill the criteria for CKD Kidney Int Suppl.2013;3:150 Performed By: #### 4 [id number] #### [place] [address] GFR >60 Normal [facility] [employer] [facility] Comment on above: Result Comment: To e stimate the GFR for Americans, multiply the result provided by 1.21. Population mean GFR = 116 ml/min/1.73 sq.m. for ages 18-29 yrs. The MDRD is validated in individuals 18-70 years of age. It is less accurate in patients with extremes of muscle mass, restriction of dietary protein, ingestion of creatine, extra-renal metabolism of creatinine, or treatment with medications that affect renal tubular creatinine secretion. GFR Categories in Chronic Kidney Disease (CKD) Category: GFR(mL/min/1.73m^2) Interpretation: G1* 90 or greater Normal or high G2* 60-89 Mild decrease G3a 45-59 Mild to moderate decrease G3b 30-44 Moderate to severe decrease G4 15-29 Severe decrease G5 14 or less Kidney failure *G1&G2: In the absence of evidence of kidney damage, neither GFR category G1 nor G2 fulfill the criteria for CKD Kidney Int Suppl.2013;3:1-150 Performed By: #### 4 [id number] #### [place] [address] GLOMERULAR FILTRATION RATEon 06-25-2021 GFR >60 [employer] [facility] GFR >60 [employer] GFR >60 [employer] GLUCOSE-POCon 06-25-2021 Glucose [Mass/Vol] 110 mg/dL High 65-100 [employer] Comment on above: Performed By: #### G FR1 #### [place] [address] LACTATEon 06-25-2021 Lactate [Moles/Vol] 0.9 mmol/L Normal 0.7-2.0 [employer] Comment on above: Performed By: #### 4 [id number] #### [employer] [address] [address] Lactate [Moles/Vol] 1.0 mmol/L Normal 0.7-2.0 [facility] Comment on above: Performed By: #### 4 [id number] #### [address] [address] Lactateon 06-25-2021 Lactate [Moles/Vol] 0.9 mmol/L 0.7 - 2. 0 mmol/L [facility] Lactate [Moles/Vol] 1.0 mmol/L 0.7 - 2. 0 mmol/L [facility] MAGNESIUMon 06-25-2021 Magnesium [Mass/Vol] 2.4 mg/dL High 1.6-2.3 [facility] Comment on above: Performed By: #### 4 [id number] ####[employer] [address] [phone] Magnesium [Mass/Vol] 1.5 mg/dL Low 1.6-2.3 [facility] Comment on above: Performed By: #### G FR1 #### [employer] [place] [id number] METABOLIC PANELon 06-25-2021 ALT [Catalytic activity/Vol] 67 U/L High 4-50 [facility] Comment on above: Performed By: #### 4 [id number] #### [employer] [address] [address] Calcium [Mass/Vol] 6.2 mg/dL Critically low 8.4-10.4 [facility] Comment on above: Performed By: #### 4 [id number] #### [employer] [address] [address] Glucose [Mass/Vol] 101 mg/dL High 65-100 [facility] [employer] [facility] Comment on above: Performed By: #### 4 [id number] #### [employer] [place] [id number] Urea nitrogen [Mass/Vol] 11 mg/dL Normal 8-26 [facility] Comment on above: Performed By: #### 4 [id number] #### [place] [place] [address] ALK PHOS 85 U/L Normal 24-126 [facility] Comment on above: Performed By: #### 4 [id number] #### [facility] [place] [address] AST [Catalytic activity/Vol] 103 U/L High 3-55 [facility] Comment on above: Performed By: #### 4 [id number] #### [place] [place] [address] Bilirubin [Mass/Vol] 1.6 mg/dL Normal 0.2-1.6 [facility] Comment on above: Performed By: #### 4 [id number] #### [place] [place] [address] CO2 [Moles/Vol] 22 mmol/L Normal 22-30 [facility] Comment on above: Performed By: #### 4 [id number] #### [place] [place] [address] Creatinine [Mass/Vol] 0.72 mg/dL Normal 0.66-1.25 [facility] Comment on above: Performed By: #### 4 [id number] #### [place] [place] [address] Protein [Mass/Vol] 5.2 g/dL Low 6.3-8.2 [facility] Comment on above: Performed By: #### 4 [id number] #### [place] [place] [address] Potassium [Moles/Vol] 2.8 mmol/L Critically low 3.6-5.1 [facility] Comment on above: Performed By: #### 4 [id number] #### [place] [place] [address] Sodium [Moles/Vol] 140 mmol/L Normal 135-147 [facility] Comment on above: Performed By: #### 4 [id number] #### [place] [place] [address] Albumin [Mass/Vol] 2.3 g/dL Low 3.5-5.0 [facility] Comment on above: Performed By: #### 4 [id number] #### [place] [place] [address] Chloride [Moles/Vol] 114 mmol/L High 96-109 [facility] Comment on above: Performed By: #### 4 [id number] #### [employer] [place] [id number] Magnesiumon 06-25-2021 Magnesium [Mass/Vol] 2.4 mg/dL High 1.6 - 2 .3 mg/dL [facility] Magnesium [Mass/Vol] 1.5 mg/dL Low 1.6 - 2 .3 mg/dL [facility] No Panel Informationon 06-25 [facility] Interpretation and review of laboratory results Abnormal [facility] nRBC 1 [facility] Interpretation and review of laboratory results Abnormal [facility] PHOSPHORUSon 06-25-2021 Phosphate [Mass/Vol] 6.2 mg/dL High 2.5-4.5 [facility] Comment on above: Performed By: #### 4 [id number] #### [place] [place] [address] Phosphate [Mass/Vol] 6.2 mg/dL High 2.5 - 4 .5 mg/dL [facility] POCT glucoseon 06-25-2021 Glucose [Mass/Vol] 110 mg/dL High 65 - 100 mg/dL [facility] Interpretation and review of laboratory results Abnormal [facility] POTASSIUMon 06-25-2021 Potassium [Moles/Vol] 3.0 mmol/L Low 3.6-5.1 [facility] Comment on above: Performed By: #### 4 [id number] #### [place] [id number] Potassiumon 06-25-2021 Potassium [Moles/Vol] 3.0 mmol/L Low 3.6 - 5.1 mmol/L [facility] ABG with Co-ox, Lytes, and L actate Oxygenon 06-24-2021 Allens Test Yes [facility] Anion gap [Moles/Vol] 33.3 mmol/L [facility] Base excess Calc (Bld) [Moles/Vol] -8.3000 mmol/L Low -2.0 - 2.0 mmol/L [facility] Calcium.ionized ISE [Moles/Vol] 1.01 mmol/L Low 1.15 - 1.29 mmol/L [facility] Chloride [Moles/Vol] 97 mmol/L Low 98 - 10 6 mmol/L [facility] CO2 (Bld) [Partial pressure] 21.8 mm[Hg] Low [facility] COHb 0.3 % 0.0 - 0.8 % [facility] Glucose [Mass/Vol] 168 mg/dL High 70 - 105 mg/dL [facility] HCO3 (Bld) [Moles/Vol] 14.1 mmol/L Low 22.0 - 26.0 mmol/L [facility] Hematrocrit 37 % 37 - 50 % [facility] HHb 0.4 % 0.0 - 5.0 % [facility] Interpretation and review of laboratory results Abnormal [facility] Lactate [Moles/Vol] 10.85 mmol/L Critically high 0.50 - 1.60 mmol/L [facility] Liter Flow 15 [facility] MetHb 0.7 % High 0.2 - 0.6 % [facility] Notification Information Dr. Thompson w/rb notified/RBV by chauncey bottle tester at [facility] O2 Device Ambu Bag/ETT [facility] O2Hb 98.6 % 94.0 - 100.0 % [facility] Oxygen (Bld) [Partial pressure] mm[Hg] High [facility] pH (Bld) 7.428 [pH] [facility] Potassium (BldA) [Moles/Vol] 2.05 mmol/L Critically low 3.50 - 5.00 mmol/L [facility] Sample Site Right Brachial [facility] Sample Type Blood Arterial [facility] SO2 99.6 % High 92.0 - 98.5 % [facility] Sodium [Moles/Vol] 142.3 mmol/L 136.0 - 1 46.0 mmol/L [facility] tHb 12.5 g/dL 12.0 - 18.0 g/dL [facility] AMMONIAon 06-24-2021 Ammonia (P) [Mass/Vol] ug/dL Normal 9-30 [facility] Comment on above: Performed By: #### G FR1 #### [place] [place] [address] Ammoniaon 06-24-2021 Ammonia (P) [Moles/Vol] umol/L 9 - 30 umol/ L [facility] BLOOD CULTUREon 06-24-2021 Bacteria identified Cx Nom (Bld) NO GROWTH--PRELIMINARY REPORT. NO GROWTH--PRELIMINARY REPORT. NO GROWTH--PRELIMINARY REPORT. NO GROWTH--PRELIMINARY REPORT. NO GROWTH--FINAL REPORT. Normal [facility] Comment on above: Order Comment: Site: line Performed By: #### 4 [id number] #### [place] [address] Bacteria identified Cx Nom (Bld) --------- POSITIVE --------- Gram Stain from Bottle: GRAM POSITIVE COCCI IN CLUSTERS Growth in 1 bottle of 2 cultures drawn. staneg Growth in 1 bottle of 2 cultures drawn. Probable Contaminant. If Physician requests additional work-up, contact Microbiology Lab at [phone]. [phone] within 5 days. Abnormal [facility] Comment on above: Order Comment: Site: line Performed By: #### G FR1 #### [place] [address] Basic metabolic panel aka Ch em 806-24-2021 Calcium [Mass/Vol] 8.2 mg/dL Low 8.4 - 10. 4 mg/dL [facility] Chloride [Moles/Vol] 97 mmol/L 96 - 10 9 mmol/L [facility] CO2 [Moles/Vol] 17 mmol/L Low 22 - 30 mmol/L [facility] Creatinine [Mass/Vol] 0.61 mg/dL Low 0.66 - 1.25 mg/dL [facility] Glucose [Mass/Vol] 154 mg/dL High 65 - 100 mg/dL [facility] Potassium [Moles/Vol] 4.4 mmol/L 3.6 - 5.1 mmol/L [facility] Sodium [Moles/Vol] 134 mmol/L Low 135 - 147 mmol/L [facility] Urea nitrogen [Mass/Vol] 17 mg/dL 8 - 26 mg/dL [facility] CBC WITH DIFFERENTIALon 05-31 ABSOLUTE BASO 0.0 10 3/uL Normal 0.0-0.1 [facility] Comment on above: Performed By: #### 4 [id number] #### [place] [address] ABSOLUTE EOSIN 0.0 10 3/uL Low 0.1-0.3 [facility] Comment on above: Performed By: #### 4 [id number] #### [place] [address] ABSOLUTE LYMPH 2.1 10 3/uL Normal 1.2-3.3 [facility] Comment on above: Performed By: #### 4 [id number] #### [place] [address] ABSOLUTE MONO 0.6 10 3/uL Normal 0.2-0.6 [facility] Comment on above: Performed By: #### 4 [id number] #### [place] [address] ABSOLUTE NEUT 13.2 10 3/uL High 2.4-6.6 [facility] Comment on above: Performed By: #### 4 [id number] #### [place] [address] Basophils/100 WBC (Bld) 0.2 % Normal [facility] [employer] [facility] Comment on above: Performed By: #### 4 [id number] #### [place] [address] Eosinophils/100 WBC (Bld) 0.1 % Normal [facility] Comment on above: Performed By: #### 4 [id number] #### [place] [address] Erythrocyte distribution width (RBC) [Ratio] 18.3 % High 11.5-14.5 [facility] Comment on above: Performed By: #### 4 [id number] #### [place] [phone] Hematocrit (Bld) [Volume fraction] 38.8 % Normal 37.7-51.1 [facility] Comment on above: Performed By: #### 4 [id number] #### [place] [phone] Hemoglobin (Bld) [Mass/Vol] 13.2 g/dL Normal 12.8-17.7 [facility] Comment on above: Performed By: #### 4 [id number] #### [place] [phone] IG ABSOLUTE 0.1 10 3/uL Normal 0 [facility] [employer] [facility] Comment on above: Performed By: #### 4 [id number] #### [place] [phone] IG PERCENT 0.6 % Normal [facility] Comment on above: Performed By: #### 4 [id number] #### [place] [phone] Lymphocytes/100 WBC (Bld) 13.2 % Normal [facility] Comment on above: Performed By: #### 4 [id number] #### [place] [phone] MCH (RBC) [Entitic mass] 35.1 pg High 27.0-34.2 [facility] Comment on above: Performed By: #### 4 [id number] #### [place] [address] MCHC (RBC) [Mass/Vol] 34.0 g/dL Normal 31.4-36.2 [facility] [employer] Comment on above: Performed By: #### 4 [id number] #### [place] [address] MCV (RBC) [Entitic vol] 103.2 fL High 80.6-99.0 [facility] Comment on above: Performed By: #### 4 [id number] #### [place] [address] Monocytes/100 WBC (Bld) 3.8 % Normal [facility] Comment on above: Performed By: #### 4 [id number] #### [place] [address] Neutrophils/100 WBC (Bld) 82.1 % Normal [employer] Comment on above: Performed By: #### 4 [id number] #### [place] [address] NRBC 0 Normal 0-1 [employer] Comment on above: Performed By: #### 4 [id number] #### [place] [address] PLATELET 188.0 x10 3/uL Normal 150.0-400.0 [employer] Comment on above: Performed By: #### 4 [id number] #### [place] [address] RBC 3.76 x10 6/uL Normal 3.70-5.70 [employer] Comment on above: Performed By: #### 4 [id number] #### [place] [address] WBC 16.1 x10 3/uL High 4.3-10.3 [employer] Comment on above: Performed By: #### 4 [id number] #### [place] [address] CBC with Differentialon 01-2 6-2022 Absolute Immature Granulocytes 0.1 0 10 3/uL [facility] Absolute Lymph 2.1 [facility] Absolute [place] 0.6 [facility] Basophils (Bld) [#/Vol] 0.0 10*3/uL [facility] Basophils/100 WBC (Bld) 0.2 % [facility] Eosinophils (Bld) [#/Vol] 0.0 10*3/uL Low [facility] Eosinophils/100 WBC (Bld) 0.1 % [facility] Erythrocyte distribution width (RBC) [Ratio] 18.3 % High 11.5 - 14.5 % [facility] Hematocrit (Bld) [Volume fraction] 38.8 % 37.7 - 51.1 % [facility] Hemoglobin (Bld) [Mass/Vol] 13.2 g/dL 12.8 - 17.7 g/dL [facility] Immature granulocytes/100 WBC (Bld) 0.6 % [facility] Interpretation and review of laboratory results Abnormal [facility] Lymphocytes/100 WBC (Bld) 13.2 % [facility] MCH (RBC) [Entitic mass] 35.1 pg High 27.0 - 34.2 pg [facility] MCHC (RBC) [Mass/Vol] 34.0 g/dL 31.4 - 36.2 g/dl [facility] MCV (RBC) [Entitic vol] 103.2 fL High 80.6 - 99.0 fL [facility] Monocytes/100 WBC (Bld) 3.8 % G [facility] Neutrophils (Bld) [#/Vol] 13.2 10*3/uL High [facility] Neutrophils/100 WBC (Bld) 82.1 % [facility] Platelets (Bld) [#/Vol] 188.0 10*3/uL [facility] RBC (Bld) [#/Vol] 3.76 10*6/uL [facility] WBC LM Ql (Sput) 16.1 High [facility] CHEM 8on 06-24-2021 Calcium [Mass/Vol] 8.2 mg/dL Low 8.4-10.4 [facility] Comment on above: Performed By: #### 4 [id number] #### [place] [address] CO2 [Moles/Vol] 17 mmol/L Low 22-30 [employer] [facility] Comment on above: Performed By: #### 4 [id number] #### [employer] [place] [address] Creatinine [Mass/Vol] 0.61 mg/dL Low 0.66-1.25 [facility] [employer] [facility] Comment on above: Performed By: #### 4 [id number] #### [place] [address] Glucose [Mass/Vol] 154 mg/dL High 65-100 [facility] [employer] [facility] Comment on above: Performed By: #### 4 [id number] #### [employer] [place] [address] Urea nitrogen [Mass/Vol] 17 mg/dL Normal 8-26 [employer] Comment on above: Result Comment: Resu lts may be affected by hemolysis. Performed By: #### 4 [id number] #### [employer] [place] [address] Potassium [Moles/Vol] 4.4 mmol/L Normal 3.6-5.1 [facility] [employer] Comment on above: Result Comment: Resu lts may be affected by hemolysis. Performed By: #### 4 [id number] #### [employer] [place] [address] Sodium [Moles/Vol] 134 mmol/L Low 135-147 [facility] [employer] [facility] Comment on above: Performed By: #### 4 [id number] #### [employer] [place] [phone] Chloride [Moles/Vol] 97 mmol/L Normal 96-109 [facility] [employer] [facility] Comment on above: Performed By: #### 4 [id number] #### [employer] [place] [id number] CKon 06-24-2021 CK [Catalytic activity/Vol] 193 U/L High 0-172 [employer] Comment on above: Performed By: #### 4 [id number] #### [address] [address] CK [Catalytic activity/Vol] 193 U/L High 0 - 172 U/L [facility] CT CERVICAL SPINE WITHOUT IV CONTRASTon 06-24-2021 CT CERVICAL SPINE WITHOUT IV CONTRAST EXAMINATION: CT CERVICAL SPINE WITHOUT IV CONTRAST HISTORY: Neck trauma, dangerous injury mechanism (Age 16-64y) COMPARISON: CT cervical spine from 01/20/[address] thoracic spine done today. TECHNIQUE: CT Cervical spine without IV contrast. Coronal and sagittal reformations were performed. Dose reduction techniques were achieved by using automated exposure control and/or adjustment of mA and/or kV according to patient size and/or use of iterative reconstruction technique. FINDINGS: The reconstructed images bone density appears to be slightly to mildly decreased. No bony lesions are noted. No scoliosis is noted. There is straightening with mild reversibility of the normal cervical lordosis. No compression fractures or subluxations are noted. There is mild to moderate narrowing at C5-C6 and moderate to prominent narrowing at C6-C7. Facets show good alignment. The axial images were done from the lower aspect of the head of the thoracic inlet. Skull base and its contents are unremarkable. The occipital condyles appear to be unremarkable. C1 and C2 show no acute or gross processes. Throughout the study moderate facet hypertrophic changes are noted. There is mild neural foraminal narrowing on the right at the level of C5-C6. There is moderate neural foraminal narrowing bilaterally at the level of C6-C7. Mild spinal canal stenosis is noted at C5-C6 due to combined degenerative changes and also at C6-C7. Paraspinal musculature and prevertebral areas are unremarkable. An NG tube and ET tube and right central line are partially visualized. Limited views of the thoracic inlet are unremarkable, please see the CT chest, abdomen and pelvis study from 06/24/2021. IMPRESSION: 1. CT cervical spine shows no evidence of fracture or severe malalignment. 2. Reversal of the normal cervical lordosis indicating muscle spasming. 3. Moderate degenerative changes most noted at the level C5-C6 and C6-C7. Per EMS, pt had a seizure at [facility], direct care professional found him unresponsive, fell and hit his head. EMS asked if pt had done any drugs, pt admits to heroin use. Patient intubated. Does not follow commands Normal [facility] CT CHEST ABDOMEN PELVIS WITH CONTRAST-TRAUMAon 06-24-2021 CT CHEST ABDOMEN PELVIS WITH CONTRAST-TRAUMA EXAM: CT CHEST ABDOMEN PELVIS WITH CONTRAST-TRAUMA, CT REFORMATTED THORACIC SPINE REASON FOR EXAM: Male, 46 years, Polytrauma, critical, spstq-[id number]-[id number] injury suspected. TECHNIQUE: Computed tomography of the chest, abdomen and pelvis is performed in the axial projection from the lung apices to the pubic symphysis. Sagittal and coronal reconstructed images are performed. Dose reduction techniques were achieved by using automated exposure control and/or adjustment of mA and/or KVP according to patient size and/or use of iterative reconstruction technique. A total of 100 mL Omnipaque 300 IV contrast was given. Study was performed without oral contrast. Dedicated reconstructed images of the thoracic and lumbar spine are performed. The lumbar spine has been reported by a different radiologist. COMPARISON: None. FINDINGS: CT CHEST: There is dependent atelectasis at the lung bases. No pleural effusion. No pneumothorax. No mediastinal or hilar adenopathy. No pericardial effusion identified. Heart size is normal. There are coronary artery calcifications. No mediastinal hematoma. There is some air within the pulmonary artery and vascular structures of the right axilla, likely related to recent vascular access. An endotracheal tube is seen with the tip just above the yevgeniy. Central catheter is seen with the tip within the SVC. Liver: There is diffuse decreased attenuation throughout the liver consistent with steatosis. Gallbladder: The gallbladder is normal. Spleen: The spleen is normal. There is a small splenule. Pancreas: The pancreas is normal. Adrenal glands: The adrenal glands are normal bilaterally. Right kidney: The kidney is normal in size. There is no renal calculus or hydronephrosis. Left kidney: The kidney is normal in size. There is no renal calculus or hydronephrosis. Stomach: The enteric tube is seen within the stomach. The tip of the tube slightly tense the wall of the stomach, and could be retracted 4 to 5 cm. Small bowel: The small bowel is normal. Large bowel: There are multiple colon diverticula present. The sigmoid colon wall appears thickened, suggesting chronic low-grade inflammatory change. No significant pericolic inflammatory change to suggest acute diverticulitis. Appendix: The appendix is visualized, and is normal. Aorta: There are diffuse atherosclerotic calcifications of the abdominal aorta. IVC: The IVC is normal. Retroperitoneum: Normal retroperitoneum. Bladder: The bladder is decompressed by a Griffin catheter. Pelvic organs: Normal prostate gland. Abdominal wall: Normal abdominal wall. Osseous structures: The bones of the pelvis are intact. Normal visualized clavicles and shoulders. No displaced rib fractures. Thoracic spine: There are degenerative changes within the thoracic spine. No acute fracture is seen. IMPRESSION: The endotracheal tube projects just above the yevgeniy. This could be retracted 2 to 3 cm. The enteric tube tents the wall of the stomach. This can be retracted 4 to 5 cm. No acute traumatic abnormality. Specifically, no mediastinal hematoma, displaced rib fracture, pneumothorax. No acute solid organ abnormality. Diverticulosis, with wall thickening involving the sigmoid colon suggesting chronic low-grade inflammatory change. No bowel obstruction or free air. No acute fracture. Additional nonacute findings, as described above. Per EMS, pt had a seizure at [facility], direct care professional found him unresponsive, fell and hit his head. EMS asked if pt had done any drugs, pt admits to heroin use. 100 ml omni 300 Patient intubated. Does not follow commands Normal [facility] CT Cervical spine WO contras ton 06-24-2021 [facility] Radiology Study observation (narrative) [facility] CT Chest and Abdomen and Pel vis W contrast [place] 06-24-2021 Radiology Study observation (narrative) [facility] CT HEAD WITHOUT IV CONTRASTo n 06-24-2021 CT HEAD WITHOUT IV CONTRAST EXAMINATION: CT HEAD WITHOUT IV CONTRAST HISTORY: Delirium COMPARISON: From 02/16/2021. TECHNIQUE: CT examination of the head without IV contrast. Dose reduction techniques were achieved by using automated exposure control and/or adjustment of mA and/or kV according to patient size and/or use of iterative reconstruction technique. REPORT: Skull base and its contents are unremarkable. Skull and scalp are unremarkable. Limited views of the facial area and orbits show no gross defects. Posterior fossa and parasellar region and ventricular and cisternal structures are unremarkable. There is moderate atrophy noted throughout. Mild periventricular white matter disease is noted. Slight old lacunar infarcts are noted involving the right and left basal ganglia regions. There are mild to moderate calcified plaques noted of the vertebral arteries and internal carotid siphons. The reconstructed images show no new findings. IMPRESSION: 1. Nonacute CT scan of the head. 2. Moderate to prominent chronic and degenerative changes especially in for a patient of this age. If there is concern for an acute ischemic event recommend follow-up with MRI for further review. Per EMS, pt had a seizure at [facility], direct care professional found him unresponsive, fell and hit his head. EMS asked if pt had done any drugs, pt admits to heroin use. Patient intubated. Does not follow commands Normal [facility] CT Head WO contraston 2021 [facility] Radiology Study observation (narrative) [facility] CT Lumbar spineon 06-24-2021 [facility] Radiology Study observation (narrative) [facility] CT REFORMATTED LUMBAR SPINEo n 06-24-2021 CT REFORMATTED LUMBAR SPINE EXAM: CT REFORMATTED LUMBAR SPINE HISTORY: trauma COMPARISON: None. TECHNIQUE: Standard protocol was done without IV contrast. FINDINGS: Bone density appears mildly decreased. Mild to moderate spurring is noted off the vertebral bodies at several levels anteriorly and laterally. The disc spaces are intact except for moderate narrowing at the level of L5-S1. There is a very slight curvature with the convexity to the left. No compression fracture or subluxation is noted. There is normal lumbar lordosis. On the axial images: The level of T12-L1 the disc is unremarkable. No spinal canal stenosis or neural foraminal narrowing is noted. Slight facet hypertrophic changes are noted. At the level of L1-L2 there appears to be minimal concentric disc bulging. Slight facet hypertrophic changes are noted. No spinal canal stenosis or neural foraminal narrowing is noted. At the level of L2-L3 minimal to mild concentric disc bulging is noted causing slight effacement against the thecal sac. Slight facet hypertrophic changes are noted. No spinal canal stenosis is noted. No neural foraminal narrowing is noted on the right. Mild neural foraminal narrowing is noted on the left. At the level of L3-L4 mild to moderate concentric disc bulging is noted causing mild effacement against the thecal sac. There is mild thickening of the ligamenta flava and mild facet hypertrophic changes noted. Mild spinal canal stenosis is noted. Mild neural foraminal narrowing is noted left side greater than right. At the level of L4-L5 there are moderate facet hypertrophic changes with mild to moderate thickening of ligamenta flava. There is mild to moderate concentric disc bulging noted. Mild spinal canal stenosis is noted. Mild to moderate neural foraminal narrowing is noted bilaterally. At the level of L5-S1 there is mild concentric disc bulging noted in general along with moderate broad-based disc bulging noted posteriorly and posterolaterally. Mild facet hypertrophic changes are noted. Mild to moderate spinal canal stenosis is noted. There is moderate neural foraminal narrowing on the right and moderate to prominent neural foraminal narrowing noted on the left. Limited views of the sacrum and pelvis are unremarkable. Paraspinal musculature and prevertebral areas are unremarkable. IMPRESSION: 1. CT lumbar spine shows no severe malalignment or compression fracture or bony lesion. 2. Moderate chronic and degenerative changes as discussed at each level. Per EMS, pt had a seizure at [facility], direct care professional found him unresponsive, fell and hit his head. EMS asked if pt had done any drugs, pt admits to heroin use. Patient intubated. Does not follow commands Normal [facility] CT REFORMATTED THORACIC SPIN Dontrell 06-24-2021 CT REFORMATTED THORACIC SPINE EXAM: CT CHEST ABDOMEN PELVIS WITH CONTRAST-TRAUMA, CT REFORMATTED THORACIC SPINE REASON FOR EXAM: Male, 46 years, Polytrauma, critical, ycyds-xypotyz-biquag injury suspected. TECHNIQUE: Computed tomography of the chest, abdomen and pelvis is performed in the axial projection from the lung apices to the pubic symphysis. Sagittal and coronal reconstructed images are performed. Dose reduction techniques were achieved by using automated exposure control and/or adjustment of mA and/or KVP according to patient size and/or use of iterative reconstruction technique. A total of 100 mL Omnipaque 300 IV contrast was given. Study was performed without oral contrast. Dedicated reconstructed images of the thoracic and lumbar spine are performed. The lumbar spine has been reported by a different radiologist. COMPARISON: None. FINDINGS: CT CHEST: There is dependent atelectasis at the lung bases. No pleural effusion. No pneumothorax. No mediastinal or hilar adenopathy. No pericardial effusion identified. Heart size is normal. There are coronary artery calcifications. No mediastinal hematoma. There is some air within the pulmonary artery and vascular structures of the right axilla, likely related to recent vascular access. An endotracheal tube is seen with the tip just above the yevgeniy. Central catheter is seen with the tip within the SVC. Liver: There is diffuse decreased attenuation throughout the liver consistent with steatosis. Gallbladder: The gallbladder is normal. Spleen: The spleen is normal. There is a small splenule. Pancreas: The pancreas is normal. Adrenal glands: The adrenal glands are normal bilaterally. Right kidney: The kidney is normal in size. There is no renal calculus or hydronephrosis. Left kidney: The kidney is normal in size. There is no renal calculus or hydronephrosis. Stomach: The enteric tube is seen within the stomach. The tip of the tube slightly tense the wall of the stomach, and could be retracted 4 to 5 cm. Small bowel: The small bowel is normal. Large bowel: There are multiple colon diverticula present. The sigmoid colon wall appears thickened, suggesting chronic low-grade inflammatory change. No significant pericolic inflammatory change to suggest acute diverticulitis. Appendix: The appendix is visualized, and is normal. Aorta: There are diffuse atherosclerotic calcifications of the abdominal aorta. IVC: The IVC is normal. Retroperitoneum: Normal retroperitoneum. Bladder: The bladder is decompressed by a Griffin catheter. Pelvic organs: Normal prostate gland. Abdominal wall: Normal abdominal wall. Osseous structures: The bones of the pelvis are intact. Normal visualized clavicles and shoulders. No displaced rib fractures. Thoracic spine: There are degenerative changes within the thoracic spine. No acute fracture is seen. IMPRESSION: The endotracheal tube projects just above the yevgeniy. This could be retracted 2 to 3 cm. The enteric tube tents the wall of the stomach. This can be retracted 4 to 5 cm. No acute traumatic abnormality. Specifically, no mediastinal hematoma, displaced rib fracture, pneumothorax. No acute solid organ abnormality. Diverticulosis, with wall thickening involving the sigmoid colon suggesting chronic low-grade inflammatory change. No bowel obstruction or free air. No acute fracture. Additional nonacute findings, as described above. Per EMS, pt had a seizure at [facility], direct care professional found him unresponsive, fell and hit his head. EMS asked if pt had done any drugs, pt admits to heroin use. Patient intubated. Does not follow commands Normal [facility] CT Thoracic spineon 06-24-19 Radiology Study observation (narrative) [facility] Central Lineon 06-24-2021 [facility] Critical Careon 06-24-2021 [facility] ETHANOL-SERUMon 06-24-2021 ETHANOL-SERUM <10 Normal NOT DETECTED [facility] Comment on above: Performed By: #### [id number] #### [place] [address] Ethanolon 06-24-2021 Ethanol Ql (U) <10 NOT DETECTED mg/dL [facility] FREE T4on 06-24-2021 Free T4 [Mass/Vol] 1.41 ng/dL Normal 0.78-2.19 [employer] [facility] Comment on above: Performed By: #### [id number] #### [place] [address] GFRon 06-24-2021 GFR >60 Normal [facility] [employer] [facility] Comment on above: Result Comment: To e stimate the GFR for Americans, multiply the result provided by 1.21. Population mean GFR = 116 ml/min/1.73 sq.m. for ages 18-29 yrs. The MDRD is validated in individuals 18-70 years of age. It is less accurate in patients with extremes of muscle mass, restriction of dietary protein, ingestion of creatine, extra-renal metabolism of creatinine, or treatment with medications that affect renal tubular creatinine secretion. GFR Categories in Chronic Kidney Disease (CKD) Category: GFR(mL/min/1.73m^2) Interpretation: G1* 90 or greater Normal or high G2* 60-89 Mild decrease G3a 45-59 Mild to moderate decrease G3b 30-44 Moderate to severe decrease G4 15-29 Severe decrease G5 14 or less Kidney failure *G1&G2: In the absence of evidence of kidney damage, neither GFR category G1 nor G2 fulfill the criteria for CKD Kidney Int Suppl.2013;3:1-150 Performed By: #### [id number] #### [place] [address] GLOMERULAR FILTRATION RATEon 06-24-2021 GFR >60 [employer] GLUCOSE-POCon 06-24-2021 Glucose [Mass/Vol] 154 mg/dL High 65-100 [facility] Comment on above: Performed By: #### [id number] #### [place] [address] Hepatic function panelon Albumin [Mass/Vol] 4.0 g/dL 3.5 - 5.0 g/dL [facility] Alk Phos 124 U/L 24 - 126 U/L [facility] ALT [Catalytic activity/Vol] 85 U/L High 4 - 50 U/L [facility] AST [Catalytic activity/Vol] 188 U/L High 3 - 55 U/L [facility] Bilirubin [Mass/Vol] 2.6 mg/dL High 0.2 - 1 .6 mg/dL [facility] Bilirubin.conjugated [Mass/Vol] 1.7 mg/dL High 0.0 - 0.5 mg/dL [facility] Protein [Mass/Vol] 8.2 g/dL 6.3 - 8.2 g/dL [facility] Intubationon 06-24-2021 [facility] LACTATEon 06-24-2021 Lactate [Moles/Vol] 12.2 mmol/L Critically high 0.7-2.0 [facility] Comment on above: Result Comment: Seps is protocol is to have a lactate result within 3 hours of admission on patients that are septic or have potential to be septic. If the lactate is > 2.0 mmol/L a second lactate has to be drawn and resulted within 6 hours from the initial draw. Please order a timed lactate for 5 hours from the time of the initial draw. Performed By: #### [id number] #### [place] [address] Interpretation and review of laboratory results Abnormal [facility] Lactate [Moles/Vol] 12.2 mmol/L Critically high 0.7 - 2.0 mmol/L [facility] LIPASEon 06-24-2021 Lipase [Catalytic activity/Vol] 860 U/L High 23-300 [facility] Comment on above: Performed By: #### [id number] #### [place] [address] LIVER PANELon 06-24-2021 ALT [Catalytic activity/Vol] 85 U/L High 4-50 [facility] [employer] [facility] Comment on above: Performed By: #### G FR1 #### [place] [place] [address] AST [Catalytic activity/Vol] 188 U/L High 3-55 [facility] [employer] [facility] Comment on above: Performed By: #### G FR1 #### [place] [address] ALK PHOS 124 U/L Normal 24-126 [facility] [employer] [facility] Comment on above: Result Comment: Resu lts may be affected by hemolysis. Performed By: #### G FR1 #### [place] [address] Bilirubin [Mass/Vol] 2.6 mg/dL High 0.2-1.6 [facility] [employer] [facility] Comment on above: Performed By: #### G FR1 #### [place] [address] Bilirubin.direct [Mass/Vol] 1.7 mg/dL High 0.0-0.5 [facility] [employer] [facility] Comment on above: Result Comment: Resu lts may be affected by hemolysis. Performed By: #### G FR1 #### [place] [address] Protein [Mass/Vol] 8.2 g/dL Normal 6.3-8.2 [facility] [employer] [facility] Comment on above: Performed By: #### G FR1 #### [place] [address] Albumin [Mass/Vol] 4.0 g/dL Normal 3.5-5.0 [facility] [employer] [facility] Comment on above: Result Comment: Resu lts may be affected by hemolysis. Performed By: #### G FR1 #### [place] [address] Lipaseon 06-24-2021 Lipase [Catalytic activity/Vol] 860 U/L High 23 - 300 U/L [facility] MAGNESIUMon 06-24-2021 Magnesium [Mass/Vol] 2.3 mg/dL Normal 1.6-2.3 [facility] Comment on above: Result Comment: Resu lts may be affected by hemolysis. Performed By: #### 4 [id number] #### [place] [address] Magnesiumon 06-24-2021 Magnesium [Mass/Vol] 2.3 mg/dL 1.6 - 2 .3 mg/dL [facility] No Panel Informationon 06-24 [facility] Interpretation and review of laboratory results Abnormal [facility] Interpretation and review of laboratory results Abnormal [facility] nRBC 0 [facility] No Panel InformationOrdered By: Tulio Simpson on 06-24-2021 [facility] Work Phone: PHOSPHORUSon 06-24-2021 Phosphate [Mass/Vol] 5.4 mg/dL High 2.5-4.5 [facility] Comment on above: Result Comment: Resu lts may be affected by hemolysis. Performed By: #### 4 [id number] #### [place] [address] Phosphate [Mass/Vol] 5.4 mg/dL High 2.5 - 4 .5 mg/dL [facility] POCT glucoseon 06-24-2021 Glucose [Mass/Vol] 154 mg/dL High 65 - 100 mg/dL [facility] Interpretation and review of laboratory results Abnormal [facility] SARS-COV-2 Rapid Molecular T eston 06-24-2021 SARS-CoV-2 (COVID-19) RNA FRANKLIN+probe Ql (Resp) Negative NEGATIVE [facility] T4, freeon 06-24-2021 Free T4 [Mass/Vol] 1.41 ng/dL 0.78 - 2. 19 ng/dL [facility] TSHon 06-24-2021 TSH 1.580 uIU/mL Normal 0.465-4.680 [facility] Comment on above: Performed By: #### 4 [id number] #### [place] [id number] [phone] TSH Qn 1.580 m[IU]/L [facility] Toxicology screen, urineon 0 06-24-2021 Amphetamines Screen method >1000 ng/mL Ql (U) Not detected CUTOFF <1000 ng/mL [facility] Barbiturates Screen method >200 ng/mL Ql (U) Not detected CUTOFF <200 ng/mL [facility] Benzodiazepines Ql (U) Not detected CUTOF F <200 ng/mL [facility] Benzoylecgonine Screen (U) [Mass/Vol] Not detected CUTOFF <300 ng/mL [facility] Cannabinoids Screen method >50 ng/mL Ql (U) Not detected CUTOFF <50 ng/mL [facility] Fentanyl Not detected CUTOFF 1.0 ng/mL [facility] Opiates Screen (U) [Mass/Vol] Not detected CUTOFF <300 ng/mL [facility] Phencyclidine (U) [Mass/Vol] Not detected CUTOFF <25 ng/mL [facility] Tox Message see below [facility] UR DRUG SCREEN-7 PANELon Opiates Ql (U) Not detected Normal CUTOFF <300 [facility] Comment on above: Performed By: #### 4 [id number] #### [place] [address] PCP Not detected Normal CUTOFF <25 [facility] Comment on above: Performed By: #### 4 [id number] #### [facility] [place] [address] COCAINE/BE Not detected Normal CUTOFF <300 [facility] Comment on above: Performed By: #### 4 [id number] #### [place] [address] BARBITURATE Not detected Normal CUTOFF <200 [facility] Comment on above: Performed By: #### 4 [id number] #### [place] [address] MARIJUANA/THC Not detected Normal CUTOFF <50 [facility] Comment on above: Performed By: #### 4 [id number] #### [facility] [place] [address] AMPHETAMINES/METH Not detected Normal CUTOFF <1000 [facility] Comment on above: Performed By: #### 4 [id number] #### [place] [address] BENZODIAZEPINE Not detected Normal CUTOFF <200 [facility] Comment on above: Performed By: #### 4 [id number] #### [place] [address] FENTANYL Not detected Normal CUTOFF 1.0 [facility] Comment on above: Performed By: #### 4 [id number] #### [place] [address] TOX MESSAGE see below Normal [facility] Comment on above: Result Comment: Note s: 1. SCREENING RESULTS SHOULD BE CONSIDERED PRESUMPTIVE UNLESS THE PRESENCE OF THE ANALYTE HAS BEEN CONFIRMED BY A REFERENCE LAB. 2. ALL DRUG GROUPS ARE ANALYZED ON URINE. Performed By: #### 4 [id number] #### [place] [place] [address] URINALYSIS W/REFLEXon 2021 Appearance (U) Cloudy Normal [facility] Comment on above: Performed By: #### 4 [id number] #### [employer] [place] [address] Bacteria identified Cx Nom (U) SETUP Normal [facility] Comment on above: Performed By: #### 4 [id number] #### [place] [place] [address] Bilirubin Ql (U) Negative Normal Negative [facility] Comment on above: Performed By: #### 4 [id number] #### [place] [place] [address] Color (U) Ирина Normal [facility] Comment on above: Performed By: #### 4 [id number] #### [place] [place] [address] Glucose Ql (U) 50 mg/dL Abnormal Negative [facility] Comment on above: Performed By: #### 4 [id number] #### [place] [address] HYALINE CAST 46 /LPF Normal [facility] Comment on above: Performed By: #### 4 [id number] #### [place] [address] Ketones Ql (U) 20 mg/dL Abnormal Negative [facility] Comment on above: Performed By: #### 4 [id number] #### [place] [address] LEUKOESTERASE Large Abnormal Negative [facility] Comment on above: Performed By: #### 4 [id number] #### [place] [address] MUCOUS-URINE Rare Normal [facility] Comment on above: Performed By: #### 4 [id number] #### [place] [address] Nitrite Ql (U) Negative Normal Negative [facility] Comment on above: Performed By: #### 4 [id number] #### [place] [place] [address] OCCULT BLOOD Small Abnormal Negative [facility] Comment on above: Performed By: #### 4 [id number] #### [place] [address] pH (U) 6.0 [pH] Normal [facility] Comment on above: Performed By: #### 4 [id number] #### [place] [address] Protein Ql (U) 100 mg/dL Abnormal Negative [facility] Comment on above: Performed By: #### 4 [id number] #### [place] [place] [address] RBC LM.HPF (Urine sed) [#/Area] 13 /[HPF] High 0-5 [facility] Comment on above: Performed By: #### 4 [id number] #### [place] [place] [address] Specific gravity (U) [Rel density] 1.013 Normal 1.003-1.029 [employer] [facility] Comment on above: Performed By: #### 4 [id number] #### [place] [place] [address] SQUAMOUS EPI CELLS 25 /LPF Normal [facility] Comment on above: Performed By: #### 4 [id number] #### [place] [place] [address] Urobilinogen (U) [Mass/Vol] 4.0 mg/dL Normal <2.0 [facility] [facility] Comment on above: Performed By: #### 4 [id number] #### [place] [address] WBC CLUMP Present Normal [employer] [facility] Comment on above: Performed By: #### 4 [id number] #### [place] [address] WBC LM.HPF (Urine sed) [#/Area] 161 /[HPF] High 0-5 [facility] [employer] [facility] Comment on above: Performed By: #### 4 [id number] #### [place] [address] URINE SOURCE griffin catheter Normal [facility] [employer] [facility] Comment on above: Performed By: #### 4 [id number] #### [place] [address] URINE CULTUREon 06-24-2021 Bacteria identified Cx Nom (U) SPARSE GROWTH staaur >100,000 /mL Normal [employer] [facility] Comment on above: Order Comment: Site: [facility] Performed By: #### 4 [id number] #### [employer] [place] [id number] Urinalysis with reflex cultu reon 06-24-2021 Appearance (U) Cloudy [employer] [facility] Bacteria identified Aer cx Nom (Unsp spec) SETUP [facility] Bilirubin Ql (U) Negative Negative [facility] Color (CSF) Ирина [facility] Glucose Ql (U) 50 mg/dL Abnormal Negative [facility] Hemoglobin Ql (U) 13 High [facility] Hyaline casts (Urine sed) [#/Area] 46 /[LPF] /LPF [facility] Interpretation and review of laboratory results Abnormal [facility] Ketones Ql (U) 20 mg/dL Abnormal Negative [facility] Leukocyte clumps Auto (U) [#/Vol] Present [facility] Leukoesterase Large Abnormal Negative [facility] Mucous-Urine Rare /LPF [facility] Nitrite Ql (U) Negative Negative [facility] Occult Bld Small Abnormal Negative [facility] pH (U) 6.0 [pH] [facility] Protein (U) [Mass/Vol] 100 mg/dL Abnormal Negative [facility] Specific gravity (U) [Rel density] 1.013 [facility] Squamous Epi Cells 25 /LPF [facility] Urine Source griffin catheter [facility] Urobilinogen Qn (U) 4.0 mg/dL <2.0 [facility] WBC (U) [#/Vol] 161 /uL High [facility] XR CHEST 1 VIEWon 06-24-2021 XR CHEST 1 VIEW EXAMINATION: XR CHES T 1 VIEW HISTORY: post intubation COMPARISON: 12/28/2020. FINDINGS: Endotracheal tube is 3 cm from the yevgeniy. Feeding tube tip is in the proximal body of the stomach. Right internal jugular central line tip is in the superior vena cava. There is no focal airspace consolidation. There is no appreciable pneumothorax or pleural effusion. The pulmonary vascularity is within normal limits for technique. The cardiomediastinal silhouette is within normal limits. IMPRESSION: Endotracheal tube tip is 3 cm from yevgeniy. Lungs are clear. No pneumothorax. Post intubation and OG tube placement Post central line insertion, also. Seizure, patient fell and hit his head. Normal [facility] XR Chest Single viewon 06-24 [facility] Radiology Study observation (narrative) [facility] XR Chest Single viewOrdered By: Eligio Gutierrez on 06-24-2021 [facility] [employer] Work Phone: XR KNEE RIGHT 1 OR 2 VIEWSon 06-24-2021 XR KNEE RIGHT 1 OR 2 VIEWS EXAM: XR KNEE RIGHT 1 OR 2 VIEWS HISTORY: injury to right knee, r/o fracture COMPARISON: Right knee from 02/16/2021. TECHNIQUE: Frontal and lateral films are done of the right knee. FINDINGS: Bone density is normal. No dislocation or fracture or bony lesions are noted. No obvious joint effusion is noted. The joint surfaces and spaces appear to be maintained. No soft tissue masses or obvious foreign bodies are noted. Mild vascular calcifications are noted somewhat prominent for patient's age. IMPRESSION: 1. Nonacute two-view right knee. 2. No gross or advanced degenerative changes noted. Injury to right knee, abrasion to the medial side of right knee Normal [facility] XR Knee - right 1 or 2 Views on 06-24-2021 [facility] Radiology Study observation (narrative) [facility] XR Knee - right 1 or 2 Views Ordered By: Joyce Ng on 06-24-2021 [facility] Work Phone: Comprehensive metabolic pane konrad 02-22-2021 Albumin [Mass/Vol] 3.8 g/dL 3.5 - 5.0 g/dL [facility] Alk Phos 144 U/L High 24 - 126 U/L [facility] ALT [Catalytic activity/Vol] 62 U/L High 4 - 50 U/L [facility] AST [Catalytic activity/Vol] 77 U/L High 3 - 55 U/L [facility] Bilirubin [Mass/Vol] 0.5 mg/dL 0.2 - 1 .6 mg/dL [facility] Calcium [Mass/Vol] 9.1 mg/dL 8.4 - 10. 4 mg/dL [facility] Chloride [Moles/Vol] 105 mmol/L 96 - 10 9 mmol/L [facility] CO2 [Moles/Vol] 22 mmol/L 22 - 30 mmol/L [facility] Creatinine [Mass/Vol] 0.56 mg/dL Low 0.66 - 1.25 mg/dL [facility] Glucose [Mass/Vol] 99 mg/dL 65 - 100 mg/dL [facility] Potassium [Moles/Vol] 3.8 mmol/L 3.6 - 5.1 mmol/L [facility] Protein [Mass/Vol] 7.1 g/dL 6.3 - 8.2 g/dL [facility] Sodium [Moles/Vol] 135 mmol/L 135 - 147 mmol/L [facility] Urea nitrogen [Mass/Vol] 7 mg/dL Low 8 - 26 mg/dL [facility] GLOMERULAR FILTRATION RATEon 02-22-2021 GFR >60 [facility] Comment on above: To estimate the GFR for Americans, multiply the result provided by 1.21. Population mean GFR = 116 ml/min/1.73 sq.m. for ages 18-29 yrs. The MDRD is validated in individuals 18-70 years of age. It is less accurate in patients with extremes of muscle mass, restriction of dietary protein, ingestion of creatine, extra-renal metabolism of creatinine, or treatment with medications that affect renal tubular creatinine secretion. GFR Categories in Chronic Kidney Disease (CKD) Category: GFR(mL/min/1.73m^2) Interpretation: G1* 90 or greater Normal or high G2* 60-89 Mild decrease G3a 45-59 Mild to moderate decrease G3b 30-44 Moderate to severe decrease G4 15-29 Severe decrease G5 14 or less Kidney failure *G1&G2: In the absence of evidence of kidney damage, neither GFR category G1 nor G2 fulfill the criteria for CKD Kidney Int Suppl.2013;3:1-150 Magnesiumon 02-22-2021 Magnesium [Mass/Vol] 1.6 mg/dL 1.6 - 2 .3 mg/dL [facility] Magnesium [Mass/Vol] 1.5 mg/dL Low 1.6 - 2 .3 mg/dL [facility] No Panel Informationon 02-22 Interpretation and review of laboratory results Abnormal [facility] Comprehensive metabolic pane konrad 02-21-2021 Albumin [Mass/Vol] 4.1 g/dL 3.5 - 5.0 g/dL [facility] Alk Phos 171 U/L High 24 - 126 U/L [facility] ALT [Catalytic activity/Vol] 71 U/L High 4 - 50 U/L [facility] AST [Catalytic activity/Vol] 126 U/L High 3 - 55 U/L [facility] Bilirubin [Mass/Vol] 0.6 mg/dL 0.2 - 1 .6 mg/dL [facility] Calcium [Mass/Vol] 9.2 mg/dL 8.4 - 10. 4 mg/dL [facility] Chloride [Moles/Vol] 106 mmol/L 96 - 10 9 mmol/L [facility] CO2 [Moles/Vol] 23 mmol/L 22 - 30 mmol/L [facility] Creatinine [Mass/Vol] 0.54 mg/dL Low 0.66 - 1.25 mg/dL [facility] Glucose [Mass/Vol] 110 mg/dL High 65 - 100 mg/dL [facility] Interpretation and review of laboratory results Abnormal [facility] Potassium [Moles/Vol] 4.1 mmol/L 3.6 - 5.1 mmol/L [facility] Protein [Mass/Vol] 7.7 g/dL 6.3 - 8.2 g/dL [facility] Sodium [Moles/Vol] 137 mmol/L 135 - 147 mmol/L [facility] Urea nitrogen [Mass/Vol] 6 mg/dL Low 8 - 26 mg/dL [facility] GLOMERULAR FILTRATION RATEon 02-21-2021 GFR >60 [facility] Comment on above: To estimate the GFR for Americans, multiply the result provided by 1.21. Population mean GFR = 116 ml/min/1.73 sq.m. for ages 18-29 yrs. The MDRD is validated in individuals 18-70 years of age. It is less accurate in patients with extremes of muscle mass, restriction of dietary protein, ingestion of creatine, extra-renal metabolism of creatinine, or treatment with medications that affect renal tubular creatinine secretion. GFR Categories in Chronic Kidney Disease (CKD) Category: GFR(mL/min/1.73m^2) Interpretation: G1* 90 or greater Normal or high G2* 60-89 Mild decrease G3a 45-59 Mild to moderate decrease G3b 30-44 Moderate to severe decrease G4 15-29 Severe decrease G5 14 or less Kidney failure *G1&G2: In the absence of evidence of kidney damage, neither GFR category G1 nor G2 fulfill the criteria for CKD Kidney Int Suppl.2013;3:1-150 Magnesiumon 02-21-2021 Magnesium [Mass/Vol] 1.9 mg/dL 1.6 - 2 .3 mg/dL [facility] No Panel Informationon 02-21 [facility] Comprehensive metabolic pane konrad 02-20-2021 Albumin [Mass/Vol] 3.3 g/dL Low 3.5 - 5.0 g/dL [facility] Alk Phos 116 U/L 24 - 126 U/L [facility] ALT [Catalytic activity/Vol] 47 U/L 4 - 50 U/L [facility] AST [Catalytic activity/Vol] 85 U/L High 3 - 55 U/L [facility] Bilirubin [Mass/Vol] 0.7 mg/dL 0.2 - 1 .6 mg/dL [facility] Calcium [Mass/Vol] 8.4 mg/dL 8.4 - 10. 4 mg/dL [facility] Chloride [Moles/Vol] 107 mmol/L 96 - 10 9 mmol/L [facility] CO2 [Moles/Vol] 23 mmol/L 22 - 30 mmol/L [facility] Creatinine [Mass/Vol] 0.50 mg/dL Low 0.66 - 1.25 mg/dL [facility] Glucose [Mass/Vol] 119 mg/dL High 65 - 100 mg/dL [facility] Potassium [Moles/Vol] 3.2 mmol/L Low 3.6 - 5.1 mmol/L [facility] Protein [Mass/Vol] 6.6 g/dL 6.3 - 8.2 g/dL [facility] Sodium [Moles/Vol] 135 mmol/L 135 - 147 mmol/L [facility] Urea nitrogen [Mass/Vol] 4 mg/dL Low 8 - 26 mg/dL [facility] GLOMERULAR FILTRATION RATEon 02-20-2021 GFR >60 [facility] Comment on above: To estimate the GFR for Americans, multiply the result provided by 1.21. Population mean GFR = 116 ml/min/1.73 sq.m. for ages 18-29 yrs. The MDRD is validated in individuals 18-70 years of age. It is less accurate in patients with extremes of muscle mass, restriction of dietary protein, ingestion of creatine, extra-renal metabolism of creatinine, or treatment with medications that affect renal tubular creatinine secretion. GFR Categories in Chronic Kidney Disease (CKD) Category: GFR(mL/min/1.73m^2) Interpretation: G1* 90 or greater Normal or high G2* 60-89 Mild decrease G3a 45-59 Mild to moderate decrease G3b 30-44 Moderate to severe decrease G4 15-29 Severe decrease G5 14 or less Kidney failure *G1&G2: In the absence of evidence of kidney damage, neither GFR category G1 nor G2 fulfill the criteria for CKD Kidney Int Suppl.2013;3:1-150 Magnesiumon 02-20-2021 Magnesium [Mass/Vol] 1.9 mg/dL 1.6 - 2 .3 mg/dL [facility] Magnesium [Mass/Vol] 1.5 mg/dL Low 1.6 - 2 .3 mg/dL [facility] No Panel Informationon 02-20 Interpretation and review of laboratory results Abnormal [facility] Potassiumon 02-20-2021 Potassium [Moles/Vol] 3.7 mmol/L 3.6 - 5.1 mmol/L [facility] Urine culture and sensitivit yon 02-20-2021 Bacteria identified Cx Nom (U) SPARSE GROWTH [facility] Bacteria identified Cx Nom (U) Staphylococcus aureus >100,000 /mL [facility] Site: Not Specified SOFTL AB [facility] Basic metabolic panelon 01-29 Calcium [Mass/Vol] 8.9 mg/dL 8.4 - 10. 4 mg/dL [facility] Chloride [Moles/Vol] 107 mmol/L 96 - 10 9 mmol/L [facility] CO2 [Moles/Vol] 24 mmol/L 22 - 30 mmol/L [facility] Creatinine [Mass/Vol] 0.47 mg/dL Low 0.66 - 1.25 mg/dL [facility] Glucose [Mass/Vol] 112 mg/dL High 65 - 100 mg/dL [facility] Potassium [Moles/Vol] 3.4 mmol/L Low 3.6 - 5.1 mmol/L [facility] Sodium [Moles/Vol] 139 mmol/L 135 - 147 mmol/L [facility] Urea nitrogen [Mass/Vol] 5 mg/dL Low 8 - 26 mg/dL [facility] CKon 02-19-2021 CK [Catalytic activity/Vol] 905 U/L High 0 - 172 U/L [facility] GLOMERULAR FILTRATION RATEon 02-19-2021 GFR >60 [facility] Comment on above: To estimate the GFR for Americans, multiply the result provided by 1.21. Population mean GFR = 116 ml/min/1.73 sq.m. for ages 18-29 yrs. The MDRD is validated in individuals 18-70 years of age. It is less accurate in patients with extremes of muscle mass, restriction of dietary protein, ingestion of creatine, extra-renal metabolism of creatinine, or treatment with medications that affect renal tubular creatinine secretion. GFR Categories in Chronic Kidney Disease (CKD) Category: GFR(mL/min/1.73m^2) Interpretation: G1* 90 or greater Normal or high G2* 60-89 Mild decrease G3a 45-59 Mild to moderate decrease G3b 30-44 Moderate to severe decrease G4 15-29 Severe decrease G5 14 or less Kidney failure *G1&G2: In the absence of evidence of kidney damage, neither GFR category G1 nor G2 fulfill the criteria for CKD Kidney Int Suppl.2013;3:1-150 Magnesiumon 02-19-2021 Magnesium [Mass/Vol] 1.6 mg/dL 1.6 - 2 .3 mg/dL [facility] No Panel Informationon 02-19 Interpretation and review of laboratory results Abnormal [facility] Basic metabolic panelon 01-29 Calcium [Mass/Vol] 8.3 mg/dL Low 8.4 - 10. 4 mg/dL [facility] Chloride [Moles/Vol] 107 mmol/L 96 - 10 9 mmol/L [facility] CO2 [Moles/Vol] 23 mmol/L 22 - 30 mmol/L [facility] Creatinine [Mass/Vol] 0.45 mg/dL Low 0.66 - 1.25 mg/dL [facility] Glucose [Mass/Vol] 124 mg/dL High 65 - 100 mg/dL [facility] Interpretation and review of laboratory results Abnormal [facility] Potassium [Moles/Vol] 2.8 mmol/L Critically low 3.6 - 5.1 mmol/L [facility] Sodium [Moles/Vol] 138 mmol/L 135 - 147 mmol/L [facility] Urea nitrogen [Mass/Vol] 9 mg/dL 8 - 26 mg/dL [facility] GLOMERULAR FILTRATION RATEon 02-18-2021 GFR >60 [facility] Comment on above: To estimate the GFR for Americans, multiply the result provided by 1.21. Population mean GFR = 116 ml/min/1.73 sq.m. for ages 18-29 yrs. The MDRD is validated in individuals 18-70 years of age. It is less accurate in patients with extremes of muscle mass, restriction of dietary protein, ingestion of creatine, extra-renal metabolism of creatinine, or treatment with medications that affect renal tubular creatinine secretion. GFR Categories in Chronic Kidney Disease (CKD) Category: GFR(mL/min/1.73m^2) Interpretation: G1* 90 or greater Normal or high G2* 60-89 Mild decrease G3a 45-59 Mild to moderate decrease G3b 30-44 Moderate to severe decrease G4 15-29 Severe decrease G5 14 or less Kidney failure *G1&G2: In the absence of evidence of kidney damage, neither GFR category G1 nor G2 fulfill the criteria for CKD Kidney Int Suppl.2013;3:1-150 Magnesiumon 02-18-2021 Interpretation and review of laboratory results Abnormal [facility] Magnesium [Mass/Vol] 1.4 mg/dL Low 1.6 - 2 .3 mg/dL [facility] No Panel Informationon 02-18 [facility] Acetone, quantitative, serum on 02-17-2021 Interpretation and review of laboratory results Abnormal [facility] Ketones [Mass/Vol] 1.07 mmol/L Critically high 0.02 - 0.27 mmol/L [facility] Interpretation and review of laboratory results Abnormal [facility] Ketones [Mass/Vol] 1.16 mmol/L Critically high 0.02 - 0.27 mmol/L [facility] Interpretation and review of laboratory results Abnormal [facility] Ketones [Mass/Vol] 1.80 mmol/L Critically high 0.02 - 0.27 mmol/L [facility] Interpretation and review of laboratory results Abnormal [facility] Ketones [Mass/Vol] 3.60 mmol/L Critically high 0.02 - 0.27 mmol/L [facility] Interpretation and review of laboratory results Abnormal [facility] Ketones [Mass/Vol] 4.38 mmol/L Critically high 0.02 - 0.27 mmol/L [facility] Basic metabolic panelon 01-29 Calcium [Mass/Vol] 8.1 mg/dL Low 8.4 - 10. 4 mg/dL [facility] Chloride [Moles/Vol] 107 mmol/L 96 - 10 9 mmol/L [facility] CO2 [Moles/Vol] 23 mmol/L 22 - 30 mmol/L [facility] Creatinine [Mass/Vol] 0.57 mg/dL Low 0.66 - 1.25 mg/dL [facility] Glucose [Mass/Vol] 106 mg/dL High 65 - 100 mg/dL [facility] Interpretation and review of laboratory results Abnormal [facility] Potassium [Moles/Vol] 3.5 mmol/L Low 3.6 - 5.1 mmol/L [facility] Sodium [Moles/Vol] 139 mmol/L 135 - 147 mmol/L [facility] Urea nitrogen [Mass/Vol] 24 mg/dL 8 - 26 mg/dL [facility] Calcium [Mass/Vol] 8.3 mg/dL Low 8.4 - 10. 4 mg/dL [facility] Chloride [Moles/Vol] 104 mmol/L 96 - 10 9 mmol/L [facility] CO2 [Moles/Vol] 26 mmol/L 22 - 30 mmol/L [facility] Creatinine [Mass/Vol] 0.71 mg/dL 0.66 - 1.25 mg/dL [facility] Glucose [Mass/Vol] 111 mg/dL High 65 - 100 mg/dL [facility] Interpretation and review of laboratory results Abnormal [facility] Potassium [Moles/Vol] 3.5 mmol/L Low 3.6 - 5.1 mmol/L [facility] Sodium [Moles/Vol] 140 mmol/L 135 - 147 mmol/L [facility] Urea nitrogen [Mass/Vol] 30 mg/dL High 8 - 26 mg/dL [facility] CBC with Differentialon 01-29 Absolute Immature Granulocytes 0.0 0 10 3/uL [facility] Absolute Lymph 1.1 Low [facility] Absolute [place] 0.6 [facility] Anisocytosis Ql (Bld) 1+ Gen [facility] Basophils (Bld) [#/Vol] 0.0 10*3/uL [facility] Basophils/100 WBC (Bld) 0.2 % G [facility] Eosinophils (Bld) [#/Vol] 0.0 10*3/uL Low [facility] Eosinophils/100 WBC (Bld) 0.6 % [facility] Erythrocyte distribution width (RBC) [Ratio] 20.9 % High 11.5 - 14.5 % [facility] Hematocrit (Bld) [Volume fraction] 31.2 % Low 37.7 - 51.1 % [facility] Hemoglobin (Bld) [Mass/Vol] 10.2 g/dL Low 12.8 - 17.7 g/dL [facility] Hypochromia Ql (Bld) 1+ Gene [facility] Immature granulocytes/100 WBC (Bld) 0.4 % [facility] Interpretation and review of laboratory results Abnormal [facility] Lymphocytes/100 WBC (Bld) 22.8 % [facility] Macrocytosis 1+ [facility] MCH (RBC) [Entitic mass] 34.5 pg High 27.0 - 34.2 pg [facility] MCHC (RBC) [Mass/Vol] 32.7 g/dL 31.4 - 36.2 g/dl [facility] MCV (RBC) [Entitic vol] 105.4 fL High 80.6 - 99.0 fL [facility] Monocytes/100 WBC (Bld) 12.6 % [facility] Neutrophils (Bld) [#/Vol] 3.1 10*3/uL [facility] Neutrophils/100 WBC (Bld) 63.4 % [facility] Platelets (Bld) [#/Vol] 121.0 10*3/uL Low [facility] Plt Estimate DECREASED [facility] RBC (Bld) [#/Vol] 2.96 10*6/uL Low [facility] WBC LM Ql (Sput) 4.9 [facility] CKon 02-17-2021 CK [Catalytic activity/Vol] 3413 U/L High 0 - 172 U/L [facility] Interpretation and review of laboratory results Abnormal [facility] Comprehensive metabolic pane l aka [employer] 02-17-2021 Albumin [Mass/Vol] 4.0 g/dL 3.5 - 5.0 g/dL [facility] Alk Phos 119 U/L 24 - 126 U/L [facility] ALT [Catalytic activity/Vol] 19 U/L 4 - 50 U/L [facility] AST [Catalytic activity/Vol] 88 U/L High 3 - 55 U/L [facility] Bilirubin [Mass/Vol] 1.7 mg/dL High 0.2 - 1 .6 mg/dL [facility] Calcium [Mass/Vol] 8.6 mg/dL 8.4 - 10. 4 mg/dL [facility] Chloride [Moles/Vol] 103 mmol/L 96 - 10 9 mmol/L [facility] CO2 [Moles/Vol] 20 mmol/L Low 22 - 30 mmol/L [facility] Creatinine [Mass/Vol] 1.07 mg/dL 0.66 - 1.25 mg/dL [facility] Glucose [Mass/Vol] 99 mg/dL 65 - 100 mg/dL [facility] Interpretation and review of laboratory results Abnormal [facility] Potassium [Moles/Vol] 3.0 mmol/L Low 3.6 - 5.1 mmol/L [facility] Protein [Mass/Vol] 7.6 g/dL 6.3 - 8.2 g/dL [facility] Sodium [Moles/Vol] 143 mmol/L 135 - 147 mmol/L [facility] Urea nitrogen [Mass/Vol] 39 mg/dL High 8 - 26 mg/dL [facility] GLOMERULAR FILTRATION RATEon 02-17-2021 GFR >60 [facility] Comment on above: To estimate the GFR for Americans, multiply the result provided by 1.21. Population mean GFR = 116 ml/min/1.73 sq.m. for ages 18-29 yrs. The MDRD is validated in individuals 18-70 years of age. It is less accurate in patients with extremes of muscle mass, restriction of dietary protein, ingestion of creatine, extra-renal metabolism of creatinine, or treatment with medications that affect renal tubular creatinine secretion. GFR Categories in Chronic Kidney Disease (CKD) Category: GFR(mL/min/1.73m^2) Interpretation: G1* 90 or greater Normal or high G2* 60-89 Mild decrease G3a 45-59 Mild to moderate decrease G3b 30-44 Moderate to severe decrease G4 15-29 Severe decrease G5 14 or less Kidney failure *G1&G2: In the absence of evidence of kidney damage, neither GFR category G1 nor G2 fulfill the criteria for CKD Kidney Int Suppl.2013;3:150 GFR >60 [facility] [employer] [facility] Comment on above: To estimate the GFR for Americans, multiply the result provided by 1.21. Population mean GFR = 116 ml/min/1.73 sq.m. for ages 18-29 yrs. The MDRD is validated in individuals 18-70 years of age. It is less accurate in patients with extremes of muscle mass, restriction of dietary protein, ingestion of creatine, extra-renal metabolism of creatinine, or treatment with medications that affect renal tubular creatinine secretion. GFR Categories in Chronic Kidney Disease (CKD) Category: GFR(mL/min/1.73m^2) Interpretation: G1* 90 or greater Normal or high G2* 60-89 Mild decrease G3a 45-59 Mild to moderate decrease G3b 30-44 Moderate to severe decrease G4 15-29 Severe decrease G5 14 or less Kidney failure *G1&G2: In the absence of evidence of kidney damage, neither GFR category G1 nor G2 fulfill the criteria for CKD Kidney Int Suppl.2013;3:150 GFR >60 [facility] [employer] [facility] Comment on above: To estimate the GFR for Americans, multiply the result provided by 1.21. Population mean GFR = 116 ml/min/1.73 sq.m. for ages 18-29 yrs. The MDRD is validated in individuals 18-70 years of age. It is less accurate in patients with extremes of muscle mass, restriction of dietary protein, ingestion of creatine, extra-renal metabolism of creatinine, or treatment with medications that affect renal tubular creatinine secretion. GFR Categories in Chronic Kidney Disease (CKD) Category: GFR(mL/min/1.73m^2) Interpretation: G1* 90 or greater Normal or high G2* 60-89 Mild decrease G3a 45-59 Mild to moderate decrease G3b 30-44 Moderate to severe decrease G4 15-29 Severe decrease G5 14 or less Kidney failure *G1&G2: In the absence of evidence of kidney damage, neither GFR category G1 nor G2 fulfill the criteria for CKD Kidney Int Suppl.2013;3:1-150 [facility] INORGANIC PHOSPHORUSon 02-17 Phosphate [Mass/Vol] 3.4 mg/dL 2.5 - 4 .5 mg/dL [facility] Interpretation and review of laboratory results Abnormal [facility] Phosphate [Mass/Vol] 5.6 mg/dL High 2.5 - 4 .5 mg/dL [facility] Magnesiumon 02-17-2021 Magnesium [Mass/Vol] 1.6 mg/dL 1.6 - 2 .3 mg/dL [facility] Magnesium [Mass/Vol] 1.9 mg/dL 1.6 - 2 .3 mg/dL [facility] No Panel Informationon 02-17 [facility] nRBC 0 [facility] Toxicology screen, urineon 0 02-17-2021 Amphetamines Screen method >1000 ng/mL Ql (U) Not detected CUTOFF <1000 ng/mL [facility] Barbiturates Screen method >200 ng/mL Ql (U) Not detected CUTOFF <200 ng/mL [facility] Benzodiazepines Ql (U) Not detected CUTOF F <200 ng/mL [facility] Benzoylecgonine Screen (U) [Mass/Vol] Not detected CUTOFF <300 ng/mL [facility] Cannabinoids Screen method >50 ng/mL Ql (U) Not detected CUTOFF <50 ng/mL [facility] Fentanyl Not detected CUTOFF 1.0 ng/mL [facility] Opiates Screen (U) [Mass/Vol] Not detected CUTOFF <300 ng/mL [facility] Phencyclidine (U) [Mass/Vol] Not detected CUTOFF <25 ng/mL [facility] Tox Message see below [facility] Comment on above: Notes: 1. SCREENING RESULTS SHOULD BE CONSIDERED PRESUMPTIVE UNLESS THE PRESENCE OF THE ANALYTE HAS BEEN CONFIRMED BY A REFERENCE LAB. 2. ALL DRUG GROUPS ARE ANALYZED ON URINE. [facility] Urinalysis with reflex cultu reon 02-17-2021 Appearance (U) Clear [facility] Bacteria identified Aer cx Nom (Unsp spec) NOT INDICATED [facility] Bilirubin Ql (U) Negative Negative [facility] Color (CSF) Yellow [facility] Glucose Ql (U) Negative Negative mg/dL [facility] Hemoglobin Ql (U) 1 [facility] Hyaline casts (Urine sed) [#/Area] 1 /[LPF] /LPF [facility] Interpretation and review of laboratory results Abnormal [facility] Ketones Ql (U) 20 mg/dL Abnormal Negative [facility] Leukoesterase Negative Negative [facility] Nitrite Ql (U) Positive Abnormal Negative [facility] Occult Bld Moderate Abnormal Negative [facility] pH (U) 6.0 [pH] [facility] Protein (U) [Mass/Vol] 30 mg/dL Abnormal Negative [facility] Specific gravity (U) [Rel density] 1.017 [facility] Urine Source Clean Catch [facility] Urobilinogen Qn (U) 2.0 mg/dL <2.0 [facility] WBC (U) [#/Vol] 3 /uL [facility] ABG Room Air; Venouson 02-16 Allens Test N/A [facility] Base excess Calc (Bld) [Moles/Vol] -11.36056 mmol/L Low -2.0 - 2.0 mmol/L [facility] CO2 (Bld) [Partial pressure] 22.6 mm[Hg] Low [facility] HCO3 (Bld) [Moles/Vol] 12.1 mmol/L Low 19.0 - 25.0 mmol/L [facility] Interpretation and review of laboratory results Abnormal [facility] O2 Device Room Air [facility] Oxygen (Bld) [Partial pressure] 44.1 mm[Hg] [facility] pH (Bld) 7.346 [pH] [facility] Sample Site Venous [facility] Sample Type Blood Venous [facility] SO2 78.8 % Low 97.0 - 100.0 % [facility] Acetone, quantitative, serum on 02-16-2021 Interpretation and review of laboratory results Abnormal [facility] Ketones [Mass/Vol] >9.00 Critically high 0.02 - 0.27 mmol/L [facility] Basic metabolic panel aka Ch em 8on 02-16-2021 Calcium [Mass/Vol] 9.6 mg/dL 8.4 - 10. 4 mg/dL [facility] Chloride [Moles/Vol] 99 mmol/L 96 - 10 9 mmol/L [facility] CO2 [Moles/Vol] 10 mmol/L Critically low 22 - 30 mmol/L [facility] Creatinine [Mass/Vol] 1.82 mg/dL High 0.66 - 1.25 mg/dL [facility] Glucose [Mass/Vol] 75 mg/dL 65 - 100 mg/dL [facility] Potassium [Moles/Vol] 3.3 mmol/L Low 3.6 - 5.1 mmol/L [facility] Sodium [Moles/Vol] 140 mmol/L 135 - 147 mmol/L [facility] Urea nitrogen [Mass/Vol] 41 mg/dL High 8 - 26 mg/dL [facility] CBCon 02-16-2021 Absolute Basophil Manual 0.1 [facility] Absolute Lymph Manual 0.8 Low Gen [facility] Absolute Neutrophil Manual 5.5 [facility] Anisocytosis Ql (Bld) 1+ [facility] Band form neutrophils/100 WBC (Bld) 1.0 % [facility] Basophils/100 WBC (Bld) 1.0 % [facility] Erythrocyte distribution width (RBC) [Ratio] 20.8 % High 11.5 - 14.5 % [facility] Hematocrit (Bld) [Volume fraction] 36.6 % Low 37.7 - 51.1 % [facility] Hemoglobin (Bld) [Mass/Vol] 11.9 g/dL Low 12.8 - 17.7 g/dL [facility] Hypochromia Ql (Bld) 1+ [facility] Interpretation and review of laboratory results Abnormal [employer] Lymphocyte Manual 12.0 % [employer] [facility] Macrocytosis 1+ [facility] MCH (RBC) [Entitic mass] 34.7 pg High 27.0 - 34.2 pg [employer] MCHC (RBC) [Mass/Vol] 32.5 g/dL 31.4 - 36.2 g/dl [employer] [facility] MCV (RBC) [Entitic vol] 106.7 fL High 80.6 - 99.0 fL [facility] [employer] [facility] Monocytes (Bld) [#/Vol] 0.2 10*3/uL [employer] System Monocytes/100 WBC (Bld) 3.0 % [facility] Morphology Jones (Bld) [Interp] SEE BELOW [employer] System Comment on above: variant lymphs Neutrophils/100 WBC (Body fld) 83.0 % [employer] System Platelets (Bld) [#/Vol] 134.0 10*3/uL Low [employer] [facility] Plt Estimate DECREASED amazing[employer] Poikilocytosis 1+ [employer] System Polychromasia LM Ql (Bld) 1+ [employer] System RBC (Bld) [#/Vol] 3.43 10*6/uL Low [facility] [employer] System WBC LM Ql (Sput) 6.5 [employer] Formerly named [facility] System CT Head WO contraston 2020 1. No acute intracranial hemorrhage, mass effect or interval change. 2. Mild atrophy with small chronic right basal ganglia infarct. [facility] EXAMINATION: CT HEAD WITHOUT IV CONTRAST HISTORY: Delirium COMPARISON: Head CT 01/20/2021. TECHNIQUE: CT examination of the head without IV contrast. Dose reduction techniques were achieved by using automated exposure control and/or adjustment of mA and/or kV according to patient size and/or use of iterative reconstruction technique. FINDINGS: No acute intracranial hemorrhage, mass effect, midline shift or extra-axial fluid collection. There is mild cerebral atrophy with concordant prominence of the ventricles. Chronic infarct within the right basal ganglia region is stable. No sulcal effacement or loss of bartlett/white matter differentiation. No acute osseous abnormality. The visualized paranasal sinuses and mastoid air cells are clear. Orbits and globes are unremarkable except for disconjugate gaze. No significant extracranial soft tissue swelling [facility] Bashir Ferro MD - 02/16/2021 EXAMINATION: CT HEAD WITHOUT IV CONTRAST HISTORY: Delirium COMPARISON: Head CT 01/20/2021. TECHNIQUE: CT examination of the head without IV contrast. Dose reduction techniques were achieved by using automated exposure control and/or adjustment of mA and/or kV according to patient size and/or use of iterative reconstruction technique. FINDINGS: No acute intracranial hemorrhage, mass effect, midline shift or extra-axial fluid collection. There is mild cerebral atrophy with concordant prominence of the ventricles. Chronic infarct within the right basal ganglia region is stable. No sulcal effacement or loss of bartlett/white matter differentiation. No acute osseous abnormality. The visualized paranasal sinuses and mastoid air cells are clear. Orbits and globes are unremarkable except for disconjugate gaze. No significant extracranial soft tissue swelling IMPRESSION: 1. No acute intracranial hemorrhage, mass effect or interval change. 2. Mild atrophy with small chronic right basal ganglia infarct. [employer] Radiology Study observation (narrative) amazingtunes CT Head WO contrastOrdered B y: Bashir Ferro on 02-16-2021 amazingtunes Work Phone: EKG 12-LEADon 02-16-2021 Stationary ECG Study Test Date: 2021-02-16 Pat Name: YONATHAN FERNANDEZ Department: Room: Gender: Male Consulting Analyst: Brian valencia : 1975 Requested By: Order Number: Griffin MD: Shiv [place] Measurements Intervals [place] Rate: 106 P: 46 HI: 146 QRS: 59 QRSD: 77 T: 40 QT: 324 QTc: 432 Interpretive Statements SINUS TACHYCARDIA ABNORMAL RHYTHM ECG Electronically Signed On 02-16-2021 23:39:35 EDT by Shiv aPrk [facility] amazingtunes GLOMERULAR FILTRATION RATEon 02-16-2021 GFR 40 amazingtunes Comment on above: To estimate the GFR for Americans, multiply the result provided by 1.21. Population mean GFR = 116 ml/min/1.73 sq.m. for ages 18-29 yrs. The MDRD is validated in individuals 18-70 years of age. It is less accurate in patients with extremes of muscle mass, restriction of dietary protein, ingestion of creatine, extra-renal metabolism of creatinine, or treatment with medications that affect renal tubular creatinine secretion. GFR Categories in Chronic Kidney Disease (CKD) Category: GFR(mL/min/1.73m^2) Interpretation: G1* 90 or greater Normal or high G2* 60-89 Mild decrease G3a 45-59 Mild to moderate decrease G3b 30-44 Moderate to severe decrease G4 15-29 Severe decrease G5 14 or less Kidney failure *G1&G2: In the absence of evidence of kidney damage, neither GFR category G1 nor G2 fulfill the criteria for CKD Kidney Int Suppl.2013;3:1-150 Hepatic function panelon Albumin [Mass/Vol] 5.0 g/dL 3.5 - 5.0 g/dL [facility] Alk Phos 139 U/L High 24 - 126 U/L [facility] ALT [Catalytic activity/Vol] 24 U/L 4 - 50 U/L [facility] AST [Catalytic activity/Vol] 104 U/L High 3 - 55 U/L [facility] Bilirubin [Mass/Vol] 2.1 mg/dL High 0.2 - 1 .6 mg/dL [facility] Bilirubin.conjugated [Mass/Vol] 0.6 mg/dL High 0.0 - 0.5 mg/dL [facility] Protein [Mass/Vol] 9.1 g/dL High 6.3 - 8.2 g/dL [facility] No Panel Informationon 02-16 nRBC 1 [facility] Interpretation and review of laboratory results Abnormal [facility] POCT glucoseon 02-16-2021 Glucose [Mass/Vol] 69 mg/dL 65 - 100 mg/dL [facility] Serum Alcoholon 02-16-2021 Ethanol Ql (U) <10 NOT DETECTED mg/dL [facility] XR Knee - left 3 Viewson Unremarkable knee radiograph. FOLLOW UP: Follow-up as clinically indicated. [facility] EXAM: XR KNEE LEFT 3 VIEWS (ROUTINE) 02/16/2021 10:34 PM EDT [facility] CLINICAL STATEMENT: Patient presented with delirium tremens, bilateral knee echymosis COMPARISON: No prior studies are available at the time of dictation. TECHNIQUE: AP and lateral views of the left knee are submitted. FINDINGS: There is no acute fracture and/or dislocation. The joint spaces are preserved. There is no significant joint effusion. Soft tissues are unremarkable. Arteriovascular calcifications. Bone mineralization is within normal limits for the patient's age. amazingtunes Teofilo Titus MD - 02/16/2021 EXAM: XR KNEE LEFT 3 VIEWS (ROUTINE) 02/16/2021 10:34 PM EDT [facility] CLINICAL STATEMENT: Patient presented with delirium tremens, bilateral knee echymosis COMPARISON: No prior studies are available at the time of dictation. TECHNIQUE: AP and lateral views of the left knee are submitted. FINDINGS: There is no acute fracture and/or dislocation. The joint spaces are preserved. There is no significant joint effusion. Soft tissues are unremarkable. Arteriovascular calcifications. Bone mineralization is within normal limits for the patient's age. IMPRESSION: Unremarkable knee radiograph. FOLLOW UP: Follow-up as clinically indicated. [facility] Radiology Study observation (narrative) [employer]unes XR Knee - left 3 ViewsOrdere d By: Teofilo Titus on 02-16-2021 amazingtunes Work Phone: XR Knee - right 3 Viewson Unremarkable knee radiograph. FOLLOW UP: Follow-up as clinically indicated. [employer] EXAM: XR KNEE RIGHT 3 VIEWS (ROUTINE) 02/16/2021 10:36 PM EDT [facility] CLINICAL STATEMENT: Patient presented with delirium tremens, bilateral knee echymosis COMPARISON: No prior studies are available at the time of dictation. TECHNIQUE: AP and lateral views of the right knee are submitted. FINDINGS: There is no acute fracture and/or dislocation. The joint spaces are preserved. There is no significant joint effusion. Soft tissues are unremarkable. Atherosclerotic vascular calcifications. Bone mineralization is within normal limits for the patient's age. amazingtunes Teofilo Titus MD - 02/16/2021 EXAM: XR KNEE RIGHT 3 VIEWS (ROUTINE) 02/16/2021 10:36 PM EDT [facility] CLINICAL STATEMENT: Patient presented with delirium tremens, bilateral knee echymosis COMPARISON: No prior studies are available at the time of dictation. TECHNIQUE: AP and lateral views of the right knee are submitted. FINDINGS: There is no acute fracture and/or dislocation. The joint spaces are preserved. There is no significant joint effusion. Soft tissues are unremarkable. Atherosclerotic vascular calcifications. Bone mineralization is within normal limits for the patient's age. IMPRESSION: Unremarkable knee radiograph. FOLLOW UP: Follow-up as clinically indicated. [facility] Radiology Study observation (narrative) [facility] Basic Metabolic Panel aka Ch em 8Ordered By: Tory Chawla on 01-05-2021 Calcium [Mass/Vol] 9.6 mg/dL 8.4 - 10. 4 mg/dL [facility] Chloride [Moles/Vol] 107 mmol/L 96 - 10 9 mmol/L [facility] CO2 [Moles/Vol] 22 mmol/L 22 - 30 mmol/L [facility] Creatinine [Mass/Vol] 0.66 mg/dL 0.66 - 1.25 mg/dL [facility] Glucose [Mass/Vol] 106 mg/dL High 65 - 100 mg/dL [facility] Potassium [Moles/Vol] 4.5 mmol/L 3.6 - 5.1 mmol/L [facility] Sodium [Moles/Vol] 139 mmol/L 135 - 147 mmol/L [facility] Urea nitrogen [Mass/Vol] 6 mg/dL Low 8 - 26 mg/dL [facility] CBC with DifferentialOrdered By: Tory Chawla on 01-05-2021 Absolute Immature Granulocytes 0.1 0 10 3/uL [facility] Absolute Lymph 1.7 [facility] Absolute [place] 1.0 High [facility] Basophils (Bld) [#/Vol] 0.1 10*3/uL [facility] Basophils/100 WBC (Bld) 1.1 % [facility] Eosinophils (Bld) [#/Vol] 0.4 10*3/uL High [facility] Eosinophils/100 WBC (Bld) 6.6 % [facility] Erythrocyte distribution width (RBC) [Ratio] 19.6 % High 11.5 - 14.5 % [facility] Hematocrit (Bld) [Volume fraction] 35.6 % Low 37.7 - 51.1 % [facility] Hemoglobin (Bld) [Mass/Vol] 11.2 g/dL Low 12.8 - 17.7 g/dL [facility] Immature granulocytes/100 WBC (Bld) 0.9 % [facility] Interpretation and review of laboratory results Abnormal [facility] Lymphocytes/100 WBC (Bld) 26.7 % [facility] MCH (RBC) [Entitic mass] 32.8 pg 27.0 - 34.2 pg [facility] MCHC (RBC) [Mass/Vol] 31.5 g/dL 31.4 - 36.2 g/dl [facility] MCV (RBC) [Entitic vol] 104.4 fL High 80.6 - 99.0 fL [facility] Monocytes/100 WBC (Bld) 15.7 % [facility] Neutrophils (Bld) [#/Vol] 3.1 10*3/uL [facility] Neutrophils/100 WBC (Bld) 49.0 % [facility] Platelets (Bld) [#/Vol] 334.0 10*3/uL [facility] RBC (Bld) [#/Vol] 3.41 10*6/uL Low [facility] WBC LM Ql (Sput) 6.4 [facility] GLOMERULAR FILTRATION RATEOr dered By: Tory Chawla on 01-05-2021 GFR >60 [facility] Comment on above: To estimate the GFR for Americans, multiply the result provided by 1.21. Population mean GFR = 116 ml/min/1.73 sq.m. for ages 18-29 yrs. The MDRD is validated in individuals 18-70 years of age. It is less accurate in patients with extremes of muscle mass, restriction of dietary protein, ingestion of creatine, extra-renal metabolism of creatinine, or treatment with medications that affect renal tubular creatinine secretion. GFR Categories in Chronic Kidney Disease (CKD) Category: GFR(mL/min/1.73m^2) Interpretation: G1* 90 or greater Normal or high G2* 60-89 Mild decrease G3a 45-59 Mild to moderate decrease G3b 30-44 Moderate to severe decrease G4 15-29 Severe decrease G5 14 or less Kidney failure *G1&G2: In the absence of evidence of kidney damage, neither GFR category G1 nor G2 fulfill the criteria for CKD Kidney Int Suppl.2013;3:1-150 Hepatic function panelOrdere d By: Arjun Carolyn on 01-05-2021 Albumin [Mass/Vol] 4.0 g/dL 3.5 - 5.0 g/dL [employer] Alk Phos 133 U/L High 24 - 126 U/L [employer] ALT [Catalytic activity/Vol] 32 U/L 4 - 50 U/L [employer] AST [Catalytic activity/Vol] 52 U/L 3 - 55 U/L [employer] Bilirubin [Mass/Vol] 0.5 mg/dL 0.2 - 1 .6 mg/dL [employer] Bilirubin.conjugated [Mass/Vol] 0.2 mg/dL 0.0 - 0.5 mg/dL [employer] Protein [Mass/Vol] 7.8 g/dL 6.3 - 8.2 g/dL [facility] MRI Brain Without IV Contras tOrdered By: Maxine Soares on 01-05-2021 No acute findings without evidence of acute infarct. [facility] EXAMINATION: MRI OF THE BRAIN WITHOUT CONTRAST 01/05/2021 12:08 pm TECHNIQUE: Multiplanar multisequence MRI of the brain was performed without the administration of intravenous contrast. COMPARISON: None. HISTORY: tia Diagnosis: FINDINGS: INTRACRANIAL STRUCTURES/VENTRICLES : There is no acute infarct. No mass effect or midline shift. No evidence of an acute intracranial hemorrhage. The ventricles and sulci are normal in size and configuration. The sellar/suprasellar regions appear unremarkable. The normal signal voids within the major intracranial vessels appear maintained. Old lacunar infarct or prominent perivascular space in the right periventricular white matter. Minimal foci of periventricular white matter disease in the left subinsular lobe. ORBITS: The visualized portion of the orbits demonstrate no acute abnormality. SINUSES: The visualized paranasal sinuses and mastoid air cells are well aerated. Small mucous retention cyst in the right maxillary sinus with mild mucosal thickening in the bilateral maxillary sinuses. BONES/SOFT TISSUES: The bone marrow signal intensity appears normal. The soft tissues demonstrate no acute abnormality. amazingtunes Pb, Rad Results In - 01/05/2021 12:32 PM EDT EXAMINATION: MRI OF THE BRAIN WITHOUT CONTRAST 01/05/2021 12:08 pm TECHNIQUE: Multiplanar multisequence MRI of the brain was performed without the administration of intravenous contrast. COMPARISON: None. HISTORY: tia Diagnosis: FINDINGS: INTRACRANIAL STRUCTURES/VENTRICLES : There is no acute infarct. No mass effect or midline shift. No evidence of an acute intracranial hemorrhage. The ventricles and sulci are normal in size and configuration. The sellar/suprasellar regions appear unremarkable. The normal signal voids within the major intracranial vessels appear maintained. Old lacunar infarct or prominent perivascular space in the right periventricular white matter. Minimal foci of periventricular white matter disease in the left subinsular lobe. ORBITS: The visualized portion of the orbits demonstrate no acute abnormality. SINUSES: The visualized paranasal sinuses and mastoid air cells are well aerated. Small mucous retention cyst in the right maxillary sinus with mild mucosal thickening in the bilateral maxillary sinuses. BONES/SOFT TISSUES: The bone marrow signal intensity appears normal. The soft tissues demonstrate no acute abnormality. IMPRESSION: No acute findings without evidence of acute infarct. [facility] MagnesiumOrdered By: Darinel noland on 01-05-2021 Magnesium [Mass/Vol] 1.6 mg/dL 1.6 - 2 .3 mg/dL [facility] No Panel InformationOrdered By: Tory Chawla on 01-05-2021 Interpretation and review of laboratory results Abnormal [facility] nRBC 0 [facility] Basic Metabolic Panel aka Ch em 8Ordered By: Tory Chawla on 01-04-2021 Calcium [Mass/Vol] 8.9 mg/dL 8.4 - 10. 4 mg/dL [facility] Chloride [Moles/Vol] 107 mmol/L 96 - 10 9 mmol/L [facility] CO2 [Moles/Vol] 22 mmol/L 22 - 30 mmol/L [facility] Creatinine [Mass/Vol] 0.60 mg/dL Low 0.66 - 1.25 mg/dL [facility] Glucose [Mass/Vol] 122 mg/dL High 65 - 100 mg/dL [facility] Potassium [Moles/Vol] 3.9 mmol/L 3.6 - 5.1 mmol/L [facility] Sodium [Moles/Vol] 137 mmol/L 135 - 147 mmol/L [facility] Urea nitrogen [Mass/Vol] 4 mg/dL Low 8 - 26 mg/dL [facility] CBC with DifferentialOrdered By: Tory Chawla on 01-04-2021 Absolute Immature Granulocytes 0.1 0 10 3/uL [facility] Absolute Lymph 1.6 [facility] Absolute [place] 0.9 High [facility] Basophils (Bld) [#/Vol] 0.1 10*3/uL [facility] Basophils/100 WBC (Bld) 1.1 % G [facility] Eosinophils (Bld) [#/Vol] 0.3 10*3/uL [facility] Eosinophils/100 WBC (Bld) 6.0 % [facility] Erythrocyte distribution width (RBC) [Ratio] 19.4 % High 11.5 - 14.5 % [facility] Hematocrit (Bld) [Volume fraction] 31.3 % Low 37.7 - 51.1 % [facility] Hemoglobin (Bld) [Mass/Vol] 10.1 g/dL Low 12.8 - 17.7 g/dL [facility] Immature granulocytes/100 WBC (Bld) 0.9 % [facility] Interpretation and review of laboratory results Abnormal [facility] Lymphocytes/100 WBC (Bld) 27.3 % [facility] MCH (RBC) [Entitic mass] 32.8 pg 27.0 - 34.2 pg [facility] MCHC (RBC) [Mass/Vol] 32.3 g/dL 31.4 - 36.2 g/dl [facility] MCV (RBC) [Entitic vol] 101.6 fL High 80.6 - 99.0 fL [facility] Monocytes/100 WBC (Bld) 15.2 % [facility] Neutrophils (Bld) [#/Vol] 2.8 10*3/uL [facility] Neutrophils/100 WBC (Bld) 49.5 % [facility] Platelets (Bld) [#/Vol] 258.0 10*3/uL [facility] RBC (Bld) [#/Vol] 3.08 10*6/uL Low [facility] WBC LM Ql (Sput) 5.7 [facility] CT Head limited WO contrastO rdered By: Darinel Pete on 01-04-2021 No definite acute intracranial abnormality. There are similar small remote appearing lacunar infarcts of the basal ganglia, compared to 09/19/2020. Similar brain parenchymal atrophy and chronic small vessel ischemic changes. If there are persistent symptoms or clinical concern, follow-up MRI or CT brain in 12-24 hours may be considered. amazing[facility] EXAMINATION: Noncontrast CT of the brain. 01/04/2021 10:33 am TECHNIQUE: Contiguous unenhanced axial CT images were obtained through the brain. Sagittal and coronal reformats were created. Dose modulation, iterative reconstruction, and/or weight based adjustment of the mA/kV was utilized to reduce the radiation dose to as low as reasonably achievable. COMPARISON: 09/19/2020 HISTORY: Gait dysfunction. Coordination issues. FINDINGS: Similar prominence of the cortical sulci and ventricular system, compatible with moderate brain parenchymal atrophy. No extra-axial fluid collection or midline shift. The bartlett-white matter differentiation is maintained. Patchy areas of decreased attenuation in the deep and periventricular white matter structures of the cerebral hemispheres are not significantly changed from the prior study. Tiny remote appearing lacunar infarcts of the basal ganglia, not significantly changed from the prior study. The basilar cisterns are clear. No acute abnormality of the posterior fossa. No acute intracranial hemorrhage is demonstrated. Included extracranial soft tissues show no specific abnormality. The included paranasal sinuses and mastoid air cells are clear. Bones appear intact. [employer] System Pb, Rad Results In - 01/04/2021 11:18 AM EDT EXAMINATION: Noncontrast CT of the brain. 01/04/2021 10:33 am TECHNIQUE: Contiguous unenhanced axial CT images were obtained through the brain. Sagittal and coronal reformats were created. Dose modulation, iterative reconstruction, and/or weight based adjustment of the mA/kV was utilized to reduce the radiation dose to as low as reasonably achievable. COMPARISON: 09/19/2020 HISTORY: Gait dysfunction. Coordination issues. FINDINGS: Similar prominence of the cortical sulci and ventricular system, compatible with moderate brain parenchymal atrophy. No extra-axial fluid collection or midline shift. The bartlett-white matter differentiation is maintained. Patchy areas of decreased attenuation in the deep and periventricular white matter structures of the cerebral hemispheres are not significantly changed from the prior study. Tiny remote appearing lacunar infarcts of the basal ganglia, not significantly changed from the prior study. The basilar cisterns are clear. No acute abnormality of the posterior fossa. No acute intracranial hemorrhage is demonstrated. Included extracranial soft tissues show no specific abnormality. The included paranasal sinuses and mastoid air cells are clear. Bones appear intact. IMPRESSION: No definite acute intracranial abnormality. There are similar small remote appearing lacunar infarcts of the basal ganglia, compared to 09/19/2020. Similar brain parenchymal atrophy and chronic small vessel ischemic changes. If there are persistent symptoms or clinical concern, follow-up MRI or CT brain in 12-24 hours may be considered. [employer] [facility] amazing[employer]unes GLOMERULAR FILTRATION RATEOr dered By: Tory Chawla on 01-04-2021 GFR >60 [employer] [facility] Comment on above: To estimate the GFR for Americans, multiply the result provided by 1.21. Population mean GFR = 116 ml/min/1.73 sq.m. for ages 18-29 yrs. The MDRD is validated in individuals 18-70 years of age. It is less accurate in patients with extremes of muscle mass, restriction of dietary protein, ingestion of creatine, extra-renal metabolism of creatinine, or treatment with medications that affect renal tubular creatinine secretion. GFR Categories in Chronic Kidney Disease (CKD) Category: GFR(mL/min/1.73m^2) Interpretation: G1* 90 or greater Normal or high G2* 60-89 Mild decrease G3a 45-59 Mild to moderate decrease G3b 30-44 Moderate to severe decrease G4 15-29 Severe decrease G5 14 or less Kidney failure *G1&G2: In the absence of evidence of kidney damage, neither GFR category G1 nor G2 fulfill the criteria for CKD Kidney Int Suppl.2013;3:1-150 Hepatic function panelOrdere d By: Arjun Leon on 01-04-2021 Albumin [Mass/Vol] 3.8 g/dL 3.5 - 5.0 g/dL [facility] Alk Phos 140 U/L High 24 - 126 U/L [facility] ALT [Catalytic activity/Vol] 26 U/L 4 - 50 U/L [facility] AST [Catalytic activity/Vol] 60 U/L High 3 - 55 U/L [facility] Bilirubin [Mass/Vol] 0.5 mg/dL 0.2 - 1 .6 mg/dL [facility] Bilirubin.conjugated [Mass/Vol] 0.2 mg/dL 0.0 - 0.5 mg/dL [facility] Protein [Mass/Vol] 7.2 g/dL 6.3 - 8.2 g/dL [facility] MagnesiumOrdered By: Darinel noland on 01-04-2021 Magnesium [Mass/Vol] 2.1 mg/dL 1.6 - 2 .3 mg/dL [facility] No Panel InformationOrdered By: Tory Chawla on 01-04-2021 Interpretation and review of laboratory results Abnormal [facility] nRBC 0 [facility] Basic Metabolic Panel aka Ch em 8Ordered By: Tory Chawla on 01-03-2021 Calcium [Mass/Vol] 8.5 mg/dL 8.4 - 10. 4 mg/dL [facility] Chloride [Moles/Vol] 106 mmol/L 96 - 10 9 mmol/L [facility] CO2 [Moles/Vol] 22 mmol/L 22 - 30 mmol/L [facility] Creatinine [Mass/Vol] 0.60 mg/dL Low 0.66 - 1.25 mg/dL [facility] Glucose [Mass/Vol] 114 mg/dL High 65 - 100 mg/dL [facility] Potassium [Moles/Vol] 3.6 mmol/L 3.6 - 5.1 mmol/L [facility] Sodium [Moles/Vol] 131 mmol/L Low 135 - 147 mmol/L [facility] Urea nitrogen [Mass/Vol] 3 mg/dL Low 8 - 26 mg/dL [facility] CBC with DifferentialOrdered By: Tory Chawla on 01-03-2021 Absolute Immature Granulocytes 0.0 0 10 3/uL [facility] Absolute Lymph 1.3 [facility] Absolute [place] 1.0 [facility] Basophils (Bld) [#/Vol] 0.1 10*3/uL [facility] Basophils/100 WBC (Bld) 1.1 % G [facility] Eosinophils (Bld) [#/Vol] 0.4 10*3/uL [facility] Eosinophils/100 WBC (Bld) 7.9 % [facility] Erythrocyte distribution width (RBC) [Ratio] 18.9 % High 11.5 - 14.5 % [facility] Hematocrit (Bld) [Volume fraction] 31.3 % Low 37.7 - 51.1 % [facility] Hemoglobin (Bld) [Mass/Vol] 10.2 g/dL Low 12.8 - 17.7 g/dL [facility] Immature granulocytes/100 WBC (Bld) 0.5 % [facility] Interpretation and review of laboratory results Abnormal [facility] Lymphocytes/100 WBC (Bld) 22.6 % [facility] MCH (RBC) [Entitic mass] 33.1 pg 27.0 - 34.2 pg [facility] MCHC (RBC) [Mass/Vol] 32.6 g/dL 31.4 - 36.2 g/dl [facility] MCV (RBC) [Entitic vol] 101.6 fL High 80.6 - 99.0 fL [facility] Monocytes/100 WBC (Bld) 17.6 % [facility] Neutrophils (Bld) [#/Vol] 2.8 10*3/uL [facility] Neutrophils/100 WBC (Bld) 50.3 % [facility] Platelets (Bld) [#/Vol] 217.0 10*3/uL [facility] RBC (Bld) [#/Vol] 3.08 10*6/uL Low [facility] WBC LM Ql (Sput) 5.6 [facility] GLOMERULAR FILTRATION RATEOr dered By: Tory Chawla on 01-03-2021 GFR >60 [facility] Comment on above: To estimate the GFR for Americans, multiply the result provided by 1.21. Population mean GFR = 116 ml/min/1.73 sq.m. for ages 18-29 yrs. The MDRD is validated in individuals 18-70 years of age. It is less accurate in patients with extremes of muscle mass, restriction of dietary protein, ingestion of creatine, extra-renal metabolism of creatinine, or treatment with medications that affect renal tubular creatinine secretion. GFR Categories in Chronic Kidney Disease (CKD) Category: GFR(mL/min/1.73m^2) Interpretation: G1* 90 or greater Normal or high G2* 60-89 Mild decrease G3a 45-59 Mild to moderate decrease G3b 30-44 Moderate to severe decrease G4 15-29 Severe decrease G5 14 or less Kidney failure *G1&G2: In the absence of evidence of kidney damage, neither GFR category G1 nor G2 fulfill the criteria for CKD Kidney Int Suppl.2013;3:1-150 Hepatic function panelOrdere d By: Arjun Leon on 01-03-2021 Albumin [Mass/Vol] 3.6 g/dL 3.5 - 5.0 g/dL [facility] Alk Phos 133 U/L High 24 - 126 U/L [facility] ALT [Catalytic activity/Vol] 21 U/L 4 - 50 U/L [facility] AST [Catalytic activity/Vol] 48 U/L 3 - 55 U/L [facility] Bilirubin [Mass/Vol] 0.6 mg/dL 0.2 - 1 .6 mg/dL [facility] Bilirubin.conjugated [Mass/Vol] 0.2 mg/dL 0.0 - 0.5 mg/dL [facility] Protein [Mass/Vol] 7.0 g/dL 6.3 - 8.2 g/dL [facility] MagnesiumOrdered By: Darinel noland on 01-03-2021 Magnesium [Mass/Vol] 1.7 mg/dL 1.6 - 2 .3 mg/dL [facility] No Panel InformationOrdered By: Tory Chawla on 01-03-2021 Interpretation and review of laboratory results Abnormal [facility] nRBC 0 [facility] Basic Metabolic Panel aka Ch em 8Ordered By: Tory Chawla on 01-02-2021 Calcium [Mass/Vol] 8.0 mg/dL Low 8.4 - 10. 4 mg/dL [facility] Chloride [Moles/Vol] 106 mmol/L 96 - 10 9 mmol/L [facility] CO2 [Moles/Vol] 18 mmol/L Low 22 - 30 mmol/L [facility] Creatinine [Mass/Vol] 0.46 mg/dL Low 0.66 - 1.25 mg/dL [facility] Glucose [Mass/Vol] 86 mg/dL 65 - 100 mg/dL [facility] Potassium [Moles/Vol] 3.5 mmol/L Low 3.6 - 5.1 mmol/L [facility] Sodium [Moles/Vol] 134 mmol/L Low 135 - 147 mmol/L [facility] Urea nitrogen [Mass/Vol] 3 mg/dL Low 8 - 26 mg/dL [facility] CBC with DifferentialOrdered By: Tory Chawla on 01-02-2021 Absolute Immature Granulocytes 0.0 0 10 3/uL [facility] Absolute Lymph 1.0 Low [facility] Absolute [place] 0.9 High [facility] Basophils (Bld) [#/Vol] 0.0 10*3/uL [facility] Basophils/100 WBC (Bld) 0.8 % [facility] Eosinophils (Bld) [#/Vol] 0.4 10*3/uL High [facility] Eosinophils/100 WBC (Bld) 7.8 % [facility] Erythrocyte distribution width (RBC) [Ratio] 18.8 % High 11.5 - 14.5 % [facility] Hematocrit (Bld) [Volume fraction] 30.6 % Low 37.7 - 51.1 % [facility] Hemoglobin (Bld) [Mass/Vol] 10.1 g/dL Low 12.8 - 17.7 g/dL [facility] Immature granulocytes/100 WBC (Bld) 0.4 % [facility] Interpretation and review of laboratory results Abnormal [facility] Lymphocytes/100 WBC (Bld) 20.3 % [facility] MCH (RBC) [Entitic mass] 33.1 pg 27.0 - 34.2 pg [facility] MCHC (RBC) [Mass/Vol] 33.0 g/dL 31.4 - 36.2 g/dl [facility] MCV (RBC) [Entitic vol] 100.3 fL High 80.6 - 99.0 fL [facility] Monocytes/100 WBC (Bld) 17.3 % [facility] Neutrophils (Bld) [#/Vol] 2.7 10*3/uL [facility] Neutrophils/100 WBC (Bld) 53.4 % [facility] Platelets (Bld) [#/Vol] 173.0 10*3/uL [facility] RBC (Bld) [#/Vol] 3.05 10*6/uL [facility] WBC LM Ql (Sput) 5.1 [facility] GLOMERULAR FILTRATION RATEOr dered By: Tory Chawla on 01-02-2021 GFR >60 [facility] Comment on above: To estimate the GFR for Americans, multiply the result provided by 1.21. Population mean GFR = 116 ml/min/1.73 sq.m. for ages 18-29 yrs. The MDRD is validated in individuals 18-70 years of age. It is less accurate in patients with extremes of muscle mass, restriction of dietary protein, ingestion of creatine, extra-renal metabolism of creatinine, or treatment with medications that affect renal tubular creatinine secretion. GFR Categories in Chronic Kidney Disease (CKD) Category: GFR(mL/min/1.73m^2) Interpretation: G1* 90 or greater Normal or high G2* 60-89 Mild decrease G3a 45-59 Mild to moderate decrease G3b 30-44 Moderate to severe decrease G4 15-29 Severe decrease G5 14 or less Kidney failure *G1&G2: In the absence of evidence of kidney damage, neither GFR category G1 nor G2 fulfill the criteria for CKD Kidney Int Suppl.2013;3:1-150 Hepatic function panelOrdere d By: Arjun Leon on 01-02-2021 Albumin [Mass/Vol] 3.5 g/dL 3.5 - 5.0 g/dL [facility] Alk Phos 137 U/L High 24 - 126 U/L [facility] ALT [Catalytic activity/Vol] 23 U/L 4 - 50 U/L [facility] AST [Catalytic activity/Vol] 65 U/L High 3 - 55 U/L [facility] Bilirubin [Mass/Vol] 1.0 mg/dL 0.2 - 1 .6 mg/dL [facility] Bilirubin.conjugated [Mass/Vol] 0.2 mg/dL 0.0 - 0.5 mg/dL [facility] Protein [Mass/Vol] 7.1 g/dL 6.3 - 8.2 g/dL [facility] MagnesiumOrdered By: Darinel noland on 01-02-2021 Magnesium [Mass/Vol] 1.8 mg/dL 1.6 - 2 .3 mg/dL [facility] No Panel InformationOrdered By: Tory Chawla on 01-02-2021 Interpretation and review of laboratory results Abnormal [facility] nRBC 0 [facility] Basic Metabolic Panel aka Ch em 8Ordered By: Tory Chawla on 01-01-2021 Calcium [Mass/Vol] 8.2 mg/dL Low 8.4 - 10. 4 mg/dL [facility] Chloride [Moles/Vol] 103 mmol/L 96 - 10 9 mmol/L [facility] CO2 [Moles/Vol] 17 mmol/L Low 22 - 30 mmol/L [facility] Creatinine [Mass/Vol] 0.44 mg/dL Low 0.66 - 1.25 mg/dL [facility] Glucose [Mass/Vol] 66 mg/dL 65 - 100 mg/dL [facility] Potassium [Moles/Vol] 3.7 mmol/L 3.6 - 5.1 mmol/L [facility] Sodium [Moles/Vol] 133 mmol/L Low 135 - 147 mmol/L [facility] Urea nitrogen [Mass/Vol] 4 mg/dL Low 8 - 26 mg/dL [facility] CBC with DifferentialOrdered By: Tory Chawla on 01-01-2021 Absolute Immature Granulocytes 0.0 0 10 3/uL [facility] Absolute Lymph 1.1 Low [facility] Absolute [place] 0.8 High [facility] Basophils (Bld) [#/Vol] 0.1 10*3/uL [facility] Basophils/100 WBC (Bld) 0.7 % [facility] Eosinophils (Bld) [#/Vol] 0.4 10*3/uL High [facility] Eosinophils/100 WBC (Bld) 5.2 % [facility] Erythrocyte distribution width (RBC) [Ratio] 18.3 % High 11.5 - 14.5 % [facility] Hematocrit (Bld) [Volume fraction] 31.3 % Low 37.7 - 51.1 % [facility] Hemoglobin (Bld) [Mass/Vol] 10.2 g/dL Low 12.8 - 17.7 g/dL [facility] Immature granulocytes/100 WBC (Bld) 0.6 % [facility] Interpretation and review of laboratory results Abnormal [facility] Lymphocytes/100 WBC (Bld) 14.7 % [facility] MCH (RBC) [Entitic mass] 33.1 pg 27.0 - 34.2 pg [facility] MCHC (RBC) [Mass/Vol] 32.6 g/dL 31.4 - 36.2 g/dl [facility] MCV (RBC) [Entitic vol] 101.6 fL High 80.6 - 99.0 fL [facility] Monocytes/100 WBC (Bld) 10.9 % [facility] Neutrophils (Bld) [#/Vol] 4.9 10*3/uL [facility] Neutrophils/100 WBC (Bld) 67.9 % [facility] Platelets (Bld) [#/Vol] 122.0 10*3/uL Low [facility] RBC (Bld) [#/Vol] 3.08 10*6/uL Low [facility] WBC LM Ql (Sput) 7.1 [facility] GLOMERULAR FILTRATION RATEOr dered By: Tory Chawla on 01-01-2021 GFR >60 [facility] Comment on above: To estimate the GFR for Americans, multiply the result provided by 1.21. Population mean GFR = 116 ml/min/1.73 sq.m. for ages 18-29 yrs. The MDRD is validated in individuals 18-70 years of age. It is less accurate in patients with extremes of muscle mass, restriction of dietary protein, ingestion of creatine, extra-renal metabolism of creatinine, or treatment with medications that affect renal tubular creatinine secretion. GFR Categories in Chronic Kidney Disease (CKD) Category: GFR(mL/min/1.73m^2) Interpretation: G1* 90 or greater Normal or high G2* 60-89 Mild decrease G3a 45-59 Mild to moderate decrease G3b 30-44 Moderate to severe decrease G4 15-29 Severe decrease G5 14 or less Kidney failure *G1&G2: In the absence of evidence of kidney damage, neither GFR category G1 nor G2 fulfill the criteria for CKD Kidney Int Suppl.2013;3:1-150 Hepatic function panelOrdere d By: Arjun Leon on 01-01-2021 Albumin [Mass/Vol] 3.6 g/dL 3.5 - 5.0 g/dL [facility] Alk Phos 132 U/L High 24 - 126 U/L [facility] ALT [Catalytic activity/Vol] 28 U/L 4 - 50 U/L [facility] AST [Catalytic activity/Vol] 105 U/L High 3 - 55 U/L [facility] Bilirubin [Mass/Vol] 1.3 mg/dL 0.2 - 1 .6 mg/dL [facility] Bilirubin.conjugated [Mass/Vol] 0.3 mg/dL 0.0 - 0.5 mg/dL [facility] Protein [Mass/Vol] 7.4 g/dL 6.3 - 8.2 g/dL [facility] MagnesiumOrdered By: Radha Chawla on 01-01-2021 Magnesium [Mass/Vol] 1.6 mg/dL 1.6 - 2 .3 mg/dL [facility] No Panel InformationOrdered By: Tory Chawla on 01-01-2021 Interpretation and review of laboratory results Abnormal [facility] nRBC 0 [facility] Basic Metabolic Panel aka Ch em 8Ordered By: Tory Chawla on 12-31-2020 Calcium [Mass/Vol] 8.8 mg/dL 8.4 - 10. 4 mg/dL [facility] Chloride [Moles/Vol] 103 mmol/L 96 - 10 9 mmol/L [facility] CO2 [Moles/Vol] 21 mmol/L Low 22 - 30 mmol/L [facility] Creatinine [Mass/Vol] 0.47 mg/dL Low 0.66 - 1.25 mg/dL [facility] Glucose [Mass/Vol] 83 mg/dL 65 - 100 mg/dL [facility] Potassium [Moles/Vol] 3.8 mmol/L 3.6 - 5.1 mmol/L [facility] Sodium [Moles/Vol] 133 mmol/L Low 135 - 147 mmol/L [facility] Urea nitrogen [Mass/Vol] 3 mg/dL Low 8 - 26 mg/dL [facility] CBC with DifferentialOrdered By: Tory Chawla on 12-31-2020 Absolute Immature Granulocytes 0.0 0 10 3/uL [facility] Absolute Lymph 0.8 Low [facility] Absolute [place] 0.5 [facility] Anisocytosis Ql (Bld) 1+ Gen [facility] Basophils (Bld) [#/Vol] 0.0 10*3/uL [facility] Basophils/100 WBC (Bld) 0.7 % [facility] Eosinophils (Bld) [#/Vol] 0.3 10*3/uL [facility] Eosinophils/100 WBC (Bld) 5.1 % [facility] Erythrocyte distribution width (RBC) [Ratio] 18.6 % High 11.5 - 14.5 % [facility] Hematocrit (Bld) [Volume fraction] 30.9 % Low 37.7 - 51.1 % [facility] Hemoglobin (Bld) [Mass/Vol] 10.2 g/dL Low 12.8 - 17.7 g/dL [facility] Hypochromia Ql (Bld) 1+ Gene [facility] Immature granulocytes/100 WBC (Bld) 0.5 % [facility] Interpretation and review of laboratory results Abnormal [facility] Lymphocytes/100 WBC (Bld) 13.9 % [facility] MCH (RBC) [Entitic mass] 33.3 pg 27.0 - 34.2 pg [facility] MCHC (RBC) [Mass/Vol] 33.0 g/dL 31.4 - 36.2 g/dl [facility] MCV (RBC) [Entitic vol] 101.0 fL High 80.6 - 99.0 fL [facility] Monocytes/100 WBC (Bld) 8.1 % [facility] Neutrophils (Bld) [#/Vol] 4.1 10*3/uL [facility] Neutrophils/100 WBC (Bld) 71.7 % [facility] Platelets (Bld) [#/Vol] 90.0 10*3/uL Low [facility] Plt Estimate DECREASED [facility] RBC (Bld) [#/Vol] 3.06 10*6/uL Low [facility] WBC LM Ql (Sput) 5.7 [facility] GLOMERULAR FILTRATION RATEOr dered By: Tory Chawla on 12-31-2020 GFR >60 [facility] Comment on above: To estimate the GFR for Americans, multiply the result provided by 1.21. Population mean GFR = 116 ml/min/1.73 sq.m. for ages 18-29 yrs. The MDRD is validated in individuals 18-70 years of age. It is less accurate in patients with extremes of muscle mass, restriction of dietary protein, ingestion of creatine, extra-renal metabolism of creatinine, or treatment with medications that affect renal tubular creatinine secretion. GFR Categories in Chronic Kidney Disease (CKD) Category: GFR(mL/min/1.73m^2) Interpretation: G1* 90 or greater Normal or high G2* 60-89 Mild decrease G3a 45-59 Mild to moderate decrease G3b 30-44 Moderate to severe decrease G4 15-29 Severe decrease G5 14 or less Kidney failure *G1&G2: In the absence of evidence of kidney damage, neither GFR category G1 nor G2 fulfill the criteria for CKD Kidney Int Suppl.2013;3:1-150 Hepatic function panelOrdere d By: Arjun Leon on 12-31-2020 Albumin [Mass/Vol] 3.8 g/dL 3.5 - 5.0 g/dL [facility] Alk Phos 121 U/L 24 - 126 U/L [facility] ALT [Catalytic activity/Vol] 28 U/L 4 - 50 U/L [facility] AST [Catalytic activity/Vol] 138 U/L High 3 - 55 U/L [facility] Bilirubin [Mass/Vol] 1.5 mg/dL 0.2 - 1 .6 mg/dL [facility] Bilirubin.conjugated [Mass/Vol] 0.2 mg/dL 0.0 - 0.5 mg/dL [facility] Protein [Mass/Vol] 7.5 g/dL 6.3 - 8.2 g/dL [facility] KEPPRA LEVELOrdered By: Ysabel Kothari on 12-31-2020 Interpretation and review of laboratory results Abnormal [facility] Keppra Level 10 ug/mL Low 12 - 46 ug/mL [facility] Comment on above: INTERPRETIVE INFORMA TION: Keppra (Levetiracetam) Therapeutic Range: 12-46 ug/mL Toxic: Not well Established Pharmacokinetics of levetiracetam are affected by renal function. Adverse effects may include somnolence, weakness, headache and vomiting. This levetiracetam (Keppra) immunoassay uses the [employer] reagents, which has known cross-reactivity with the drug brivaracetam (Briviact) and may report inaccurate results. Patients transitioning from levetiracetam to brivaracetam or those who are using both medications should not monitor drug concentrations with the [employer] assay. These patients should be monitored using a validated chromatographic methodology that distinguishes between drugs to determine drug concentrations. Performed By: [employer] [address] [place] [id number] Refuse Driver: Mary Abreu MD [facility] MagnesiumOrdered By: Arjun Leon on 12-31-2020 Magnesium [Mass/Vol] 1.7 mg/dL 1.6 - 2 .3 mg/dL [facility] No Panel InformationOrdered By: Tory Chawla on 12-31-2020 nRBC 0 [facility] Interpretation and review of laboratory results Abnormal [facility] No Panel InformationOrdered By: Arjun Leon on 12-31-2020 [facility] Basic Metabolic Panel aka Ch em 8Ordered By: Tory Chawla on 12-30-2020 Calcium [Mass/Vol] 8.1 mg/dL Low 8.4 - 10. 4 mg/dL [facility] Chloride [Moles/Vol] 104 mmol/L 96 - 10 9 mmol/L [facility] CO2 [Moles/Vol] 21 mmol/L Low 22 - 30 mmol/L [facility] Creatinine [Mass/Vol] 0.46 mg/dL Low 0.66 - 1.25 mg/dL [facility] Glucose [Mass/Vol] 95 mg/dL 65 - 100 mg/dL [facility] Interpretation and review of laboratory results Abnormal [facility] Potassium [Moles/Vol] 3.5 mmol/L Low 3.6 - 5.1 mmol/L [facility] Sodium [Moles/Vol] 132 mmol/L Low 135 - 147 mmol/L [facility] Urea nitrogen [Mass/Vol] 4 mg/dL Low 8 - 26 mg/dL [facility] CBC with DifferentialOrdered By: Tory Chawla on 12-30-2020 Absolute Immature Granulocytes 0.0 0 10 3/uL [facility] Absolute Lymph 0.6 Low [facility] Absolute [place] 0.2 [facility] Basophils (Bld) [#/Vol] 0.0 10*3/uL [facility] Basophils/100 WBC (Bld) 0.8 % [facility] Eosinophils (Bld) [#/Vol] 0.3 10*3/uL [facility] Eosinophils/100 WBC (Bld) 5.6 % [facility] Erythrocyte distribution width (RBC) [Ratio] 18.8 % High 11.5 - 14.5 % [facility] Hematocrit (Bld) [Volume fraction] 29.4 % Low 37.7 - 51.1 % [facility] Hemoglobin (Bld) [Mass/Vol] 9.7 g/dL Low 12.8 - 17.7 g/dL [facility] Immature granulocytes/100 WBC (Bld) 0.4 % [facility] Interpretation and review of laboratory results Abnormal [facility] Lymphocytes/100 WBC (Bld) 12.3 % [facility] MCH (RBC) [Entitic mass] 33.6 pg 27.0 - 34.2 pg [facility] MCHC (RBC) [Mass/Vol] 33.0 g/dL 31.4 - 36.2 g/dl [facility] MCV (RBC) [Entitic vol] 101.7 fL High 80.6 - 99.0 fL [facility] Monocytes/100 WBC (Bld) 4.6 % [facility] Neutrophils (Bld) [#/Vol] 4.0 10*3/uL [facility] Neutrophils/100 WBC (Bld) 76.3 % [facility] Platelets (Bld) [#/Vol] 73.0 10*3/uL Low [facility] RBC (Bld) [#/Vol] 2.89 10*6/uL Low [facility] WBC LM Ql (Sput) 5.2 [facility] GLOMERULAR FILTRATION RATEOr dered By: Tory Chawla on 12-30-2020 GFR >60 [facility] Comment on above: To estimate the GFR for Americans, multiply the result provided by 1.21. Population mean GFR = 116 ml/min/1.73 sq.m. for ages 18-29 yrs. The MDRD is validated in individuals 18-70 years of age. It is less accurate in patients with extremes of muscle mass, restriction of dietary protein, ingestion of creatine, extra-renal metabolism of creatinine, or treatment with medications that affect renal tubular creatinine secretion. GFR Categories in Chronic Kidney Disease (CKD) Category: GFR(mL/min/1.73m^2) Interpretation: G1* 90 or greater Normal or high G2* 60-89 Mild decrease G3a 45-59 Mild to moderate decrease G3b 30-44 Moderate to severe decrease G4 15-29 Severe decrease G5 14 or less Kidney failure *G1&G2: In the absence of evidence of kidney damage, neither GFR category G1 nor G2 fulfill the criteria for CKD Kidney Int Suppl.2013;3:1-150 Magnesium LevelOrdered By: Mayda Chawla on 12-30-2020 Magnesium [Mass/Vol] 2.3 mg/dL 1.6 - 2 .3 mg/dL [facility] No Panel InformationOrdered By: Tory Chawla on 12-30-2020 [facility] nRBC 0 [facility] Basic Metabolic Panel aka Ch em 8Ordered By: Tory Chawla on 12-29-2020 Calcium [Mass/Vol] 7.5 mg/dL Low 8.4 - 10. 4 mg/dL [facility] Chloride [Moles/Vol] 104 mmol/L 96 - 10 9 mmol/L [facility] CO2 [Moles/Vol] 23 mmol/L 22 - 30 mmol/L [facility] Creatinine [Mass/Vol] 0.57 mg/dL Low 0.66 - 1.25 mg/dL [facility] Glucose [Mass/Vol] 78 mg/dL 65 - 100 mg/dL [facility] Interpretation and review of laboratory results Abnormal [facility] Potassium [Moles/Vol] 3.0 mmol/L Low 3.6 - 5.1 mmol/L [facility] Sodium [Moles/Vol] 139 mmol/L 135 - 147 mmol/L [facility] Urea nitrogen [Mass/Vol] 5 mg/dL Low 8 - 26 mg/dL [facility] CBC with DifferentialOrdered By: Tory Chawla on 12-29-2020 Absolute Immature Granulocytes 0.0 0 10 3/uL [facility] Absolute Lymph 1.5 [facility] Absolute [place] 0.2 [facility] Basophils (Bld) [#/Vol] 0.1 10*3/uL [facility] Basophils/100 WBC (Bld) 2.0 % [facility] Eosinophils (Bld) [#/Vol] 0.3 10*3/uL [facility] Eosinophils/100 WBC (Bld) 7.4 % [facility] Erythrocyte distribution width (RBC) [Ratio] 18.6 % High 11.5 - 14.5 % [facility] Hematocrit (Bld) [Volume fraction] 30.5 % Low 37.7 - 51.1 % [facility] Hemoglobin (Bld) [Mass/Vol] 10.4 g/dL Low 12.8 - 17.7 g/dL [facility] Immature granulocytes/100 WBC (Bld) 0.2 % [facility] Interpretation and review of laboratory results Abnormal [facility] Lymphocytes/100 WBC (Bld) 37.2 % [facility] MCH (RBC) [Entitic mass] 33.4 pg 27.0 - 34.2 pg [facility] MCHC (RBC) [Mass/Vol] 34.1 g/dL 31.4 - 36.2 g/dl [facility] MCV (RBC) [Entitic vol] 98.1 fL 80.6 - 99.0 fL [facility] Monocytes/100 WBC (Bld) 5.9 % [facility] Neutrophils (Bld) [#/Vol] 1.9 10*3/uL Low [facility] Neutrophils/100 WBC (Bld) 47.3 % [facility] Platelets (Bld) [#/Vol] 78.0 10*3/uL Low [facility] RBC (Bld) [#/Vol] 3.11 10*6/uL Low [facility] WBC LM Ql (Sput) 4.1 Low [facility] EKG 12-LEADOrdered By: Ric Kothari on 12-29-2020 Stationary ECG Study Test Date: 2020-12-28 Pat Name: YONATHAN FERNANDEZ Department: Room: 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1975 Requested By: Order Number: Reading : [place] Measurements Intervals [place] Rate: 94 P: 56 HI: 168 QRS: 66 QRSD: 85 T: 61 QT: 342 QTc: 428 Interpretive Statements SINUS RHYTHM Electronically Signed On 12-29-2020 0:06:45 EDT by Shiv Park [facility] EthanolOrdered By: Ingris marquis on 12-29-2020 Ethanol Ql (U) <10 NOT DETECTED mg/dL [facility] Ethanol Ql (U) <10 NOT DETECTED mg/dL [facility] GLOMERULAR FILTRATION RATEOr dered By: Tory Chawla on 12-29-2020 GFR >60 [facility] Comment on above: To estimate the GFR for Americans, multiply the result provided by 1.21. Population mean GFR = 116 ml/min/1.73 sq.m. for ages 18-29 yrs. The MDRD is validated in individuals 18-70 years of age. It is less accurate in patients with extremes of muscle mass, restriction of dietary protein, ingestion of creatine, extra-renal metabolism of creatinine, or treatment with medications that affect renal tubular creatinine secretion. GFR Categories in Chronic Kidney Disease (CKD) Category: GFR(mL/min/1.73m^2) Interpretation: G1* 90 or greater Normal or high G2* 60-89 Mild decrease G3a 45-59 Mild to moderate decrease G3b 30-44 Moderate to severe decrease G4 15-29 Severe decrease G5 14 or less Kidney failure *G1&G2: In the absence of evidence of kidney damage, neither GFR category G1 nor G2 fulfill the criteria for CKD Kidney Int Suppl.2013;3:1-150 LipaseOrdered By: Tory Chawla on 12-29-2020 Interpretation and review of laboratory results Abnormal [facility] Lipase [Catalytic activity/Vol] 327 U/L High 23 - 300 U/L [facility] Lipid panelOrdered By: Eunice Chawla on 12-29-2020 Cholesterol [Mass/Vol] 191 mg/dL 0 - 200 mg/dL [facility] Comment on above: CHOLESTEROL REFERENC E RANGE Desirable <200 mg/dL Borderline 200-239 mg/dL High >240 mg/dL . Cholesterol in HDL [Mass/Vol] 116.9 mg/dL High 40.0 - 59.9 mg/dL [facility] Comment on above: Interpretive data fo r HDL Cholesterol states: HDL <40 mg/dL is low and constitutes a coronary disease risk factor. HDL >60 mg/dL is a negative risk factor for coronary heart disease. . Cholesterol in LDL [Mass/Vol] 62 mg/dL 0 - 100 mg/dL [facility] Comment on above: LDL REFERENCE RANGE Optimal <100 mg/dl Near Optimal 100-129 mg/dL Borderline High 130-159 mg/dL High 160-189 mg/dL Very High >=190 mg/dL . Cholesterol in VLDL [Mass/Vol] 13 mg/dL <42 [facility] Interpretation and review of laboratory results Abnormal [facility] Triglyceride [Mass/Vol] 63 mg/dL 0 - 150 mg/d L [facility] Comment on above: TRIGLYCERIDE REFEREN CE RANGE Normal <150 mg/dL Borderline High 150-199 mg/dL High 200-499 mg/dL Very High >=500 mg/dL . [facility] MagnesiumOrdered By: Ingris Mancia on 12-29-2020 Interpretation and review of laboratory results Abnormal [facility] Magnesium [Mass/Vol] 1.4 mg/dL Low 1.6 - 2 .3 mg/dL [facility] No Panel InformationOrdered By: Ingris Gustafson on 12-29-2020 [facility] No Panel InformationOrdered By: Tory Chawla on 12-29-2020 [facility] nRBC 0 [facility] POCT glucoseOrdered By: Kim Espinoza on 12-29-2020 Glucose [Mass/Vol] 117 mg/dL High 65 - 100 mg/dL [facility] Interpretation and review of laboratory results Abnormal [facility] PotassiumOrdered By: Ingris Mancia on 12-29-2020 Potassium [Moles/Vol] 3.9 mmol/L 3.6 - 5.1 mmol/L [facility] Toxicology screen, urineOrde red By: Tory Chawla on 12-29-2020 Amphetamines Screen method >1000 ng/mL Ql (U) Not detected CUTOFF <1000 ng/mL [facility] Barbiturates Screen method >200 ng/mL Ql (U) Not detected CUTOFF <200 ng/mL [facility] Benzodiazepines Ql (U) Not detected CUTOF F <200 ng/mL [facility] Benzoylecgonine Screen (U) [Mass/Vol] Not detected CUTOFF <300 ng/mL [facility] Cannabinoids Screen method >50 ng/mL Ql (U) Not detected CUTOFF <50 ng/mL [facility] Fentanyl Not detected CUTOFF 1.0 ng/mL [facility] Opiates Screen (U) [Mass/Vol] Not detected CUTOFF <300 ng/mL [facility] Phencyclidine (U) [Mass/Vol] Not detected CUTOFF <25 ng/mL [facility] Tox Message see below [facility] Comment on above: Notes: 1. SCREENING RESULTS SHOULD BE CONSIDERED PRESUMPTIVE UNLESS THE PRESENCE OF THE ANALYTE HAS BEEN CONFIRMED BY A REFERENCE LAB. 2. ALL DRUG GROUPS ARE ANALYZED ON URINE. [facility] Troponin IOrdered By: Mayur Chawla on 12-29-2020 Troponin I.cardiac [Mass/Vol] ng/mL 0.000 - 0.033 ng/mL [facility] Comment on above: NEGATIVE; No detectable troponin-I. [facility] Troponin I.cardiac [Mass/Vol] ng/mL 0.000 - 0.033 ng/mL [facility] Comment on above: NEGATIVE; No detectable troponin-I. [facility] Basic metabolic panel aka Ch em 8Ordered By: Kathya Kothari on 12-28-2020 Calcium [Mass/Vol] 8.4 mg/dL 8.4 - 10. 4 mg/dL [facility] Chloride [Moles/Vol] 99 mmol/L 96 - 10 9 mmol/L [facility] CO2 [Moles/Vol] 25 mmol/L 22 - 30 mmol/L [facility] Creatinine [Mass/Vol] 0.55 mg/dL Low 0.66 - 1.25 mg/dL [facility] Glucose [Mass/Vol] 91 mg/dL 65 - 100 mg/dL [facility] Potassium [Moles/Vol] 3.0 mmol/L Low 3.6 - 5.1 mmol/L [facility] Sodium [Moles/Vol] 138 mmol/L 135 - 147 mmol/L [facility] Urea nitrogen [Mass/Vol] 5 mg/dL Low 8 - 26 mg/dL [facility] CBC with DifferentialOrdered By: Kathya Kothari on 12-28-2020 Absolute Immature Granulocytes 0.0 0 10 3/uL [facility] Absolute Lymph 1.6 [facility] Absolute [place] 0.3 [facility] Basophils (Bld) [#/Vol] 0.1 10*3/uL [facility] Basophils/100 WBC (Bld) 1.8 % [facility] Eosinophils (Bld) [#/Vol] 0.4 10*3/uL High [facility] Eosinophils/100 WBC (Bld) 7.5 % [facility] Erythrocyte distribution width (RBC) [Ratio] 18.6 % High 11.5 - 14.5 % [facility] Hematocrit (Bld) [Volume fraction] 34.3 % Low 37.7 - 51.1 % [facility] Hemoglobin (Bld) [Mass/Vol] 12.0 g/dL Low 12.8 - 17.7 g/dL [facility] Immature granulocytes/100 WBC (Bld) 0.4 % [facility] Interpretation and review of laboratory results Abnormal [facility] Lymphocytes/100 WBC (Bld) 31.4 % [facility] MCH (RBC) [Entitic mass] 34.0 pg 27.0 - 34.2 pg [facility] MCHC (RBC) [Mass/Vol] 35.0 g/dL 31.4 - 36.2 g/dl [facility] MCV (RBC) [Entitic vol] 97.2 fL 80.6 - 99.0 fL [facility] Monocytes/100 WBC (Bld) 6.1 % [facility] Neutrophils (Bld) [#/Vol] 2.7 10*3/uL [facility] Neutrophils/100 WBC (Bld) 52.8 % [facility] Platelets (Bld) [#/Vol] 92.0 10*3/uL Low [facility] RBC (Bld) [#/Vol] 3.53 10*6/uL Low [facility] WBC LM Ql (Sput) 5.1 [facility] EthanolOrdered By: Kathya Collier dd on 12-28-2020 Ethanol Ql (U) 361 mg/dL Critically high NOT DETECTED [facility] Interpretation and review of laboratory results Abnormal [facility] GLOMERULAR FILTRATION RATEOr dered By: Kathya Kothari on 12-28-2020 GFR >60 [facility] Comment on above: To estimate the GFR for Americans, multiply the result provided by 1.21. Population mean GFR = 116 ml/min/1.73 sq.m. for ages 18-29 yrs. The MDRD is validated in individuals 18-70 years of age. It is less accurate in patients with extremes of muscle mass, restriction of dietary protein, ingestion of creatine, extra-renal metabolism of creatinine, or treatment with medications that affect renal tubular creatinine secretion. GFR Categories in Chronic Kidney Disease (CKD) Category: GFR(mL/min/1.73m^2) Interpretation: G1* 90 or greater Normal or high G2* 60-89 Mild decrease G3a 45-59 Mild to moderate decrease G3b 30-44 Moderate to severe decrease G4 15-29 Severe decrease G5 14 or less Kidney failure *G1&G2: In the absence of evidence of kidney damage, neither GFR category G1 nor G2 fulfill the criteria for CKD Kidney Int Suppl.2013;3:1-150 Hepatic function panelOrdere d By: Kathya Kothari on 12-28-2020 Albumin [Mass/Vol] 3.8 g/dL 3.5 - 5.0 g/dL [facility] Alk Phos 121 U/L 24 - 126 U/L [facility] ALT [Catalytic activity/Vol] 22 U/L 4 - 50 U/L [facility] AST [Catalytic activity/Vol] 96 U/L High 3 - 55 U/L [facility] Bilirubin [Mass/Vol] 0.6 mg/dL 0.2 - 1 .6 mg/dL [facility] Bilirubin.conjugated [Mass/Vol] 0.1 mg/dL 0.0 - 0.5 mg/dL [facility] Protein [Mass/Vol] 7.7 g/dL 6.3 - 8.2 g/dL [facility] LipaseOrdered By: Kathya marcial on 12-28-2020 Lipase [Catalytic activity/Vol] 461 U/L High 23 - 300 U/L [facility] MagnesiumOrdered By: Kathya Kothari on 12-28-2020 Magnesium [Mass/Vol] 1.5 mg/dL Low 1.6 - 2 .3 mg/dL [facility] No Panel InformationOrdered By: Kathya Kothari on 12-28-2020 Interpretation and review of laboratory results Abnormal [facility] nRBC 0 [facility] Interpretation and review of laboratory results Abnormal [facility] Troponin IOrdered By: Kathya Kothari on 12-28-2020 Troponin I.cardiac [Mass/Vol] ng/mL 0.000 - 0.033 ng/mL [facility] Comment on above: NEGATIVE; No detectable troponin-I. [facility] XR Chest Single viewOrdered By: Kathya Kothari on 12-28-2020 No acute cardiopulmonary process. [facility] EXAMINATION: ONE XRA Y VIEW OF THE CHEST 12/28/2020 8:10 pm COMPARISON: 09/26/2020. HISTORY: chets pain Pt c/o chest pain and pressure x 2 hours FINDINGS: Frontal portable view of the chest. Normal lung volume. No focal airspace disease. Normal pulmonary vasculature. No pleural effusion or pneumothorax. Normal cardiomediastinal silhouette and great vessels. No acute osseous abnormality. [facility] Pb, Rad Results In - 12/28/2020 8:59 PM EDT EXAMINATION: ONE XRAY VIEW OF THE CHEST 12/28/2020 8:10 pm COMPARISON: 09/26/2020. HISTORY: chets pain Pt c/o chest pain and pressure x 2 hours FINDINGS: Frontal portable view of the chest. Normal lung volume. No focal airspace disease. Normal pulmonary vasculature. No pleural effusion or pneumothorax. Normal cardiomediastinal silhouette and great vessels. No acute osseous abnormality. IMPRESSION: No acute cardiopulmonary process. [facility] FolateOrdered By: Magali Hernández on 11-19-2020 Folate [Mass/Vol] 12.7 ng/mL [facility] Comment on above: Folate Reference Ran ge: >2.8 ng/mL . INORGANIC PHOSPHORUSOrdered By: Joyce Mondragon on 11-19-2020 Interpretation and review of laboratory results Abnormal [facility] Phosphate [Mass/Vol] 4.6 mg/dL High 2.5 - 4 .5 mg/dL [facility] MagnesiumOrdered By: Joyce nunez on 11-19-2020 Magnesium [Mass/Vol] 1.7 mg/dL 1.6 - 2 .3 mg/dL [facility] No Panel InformationOrdered By: Magali Hernández on 11-19-2020 [facility] No Panel InformationOrdered By: Joyce Mondragon on 11-19-2020 [facility] Vitamin [id number] By: Karli jovana Edgar on 11-19-2020 Cobalamin (Vitamin B12) [Mass/Vol] 600 pg/mL 239 - 931 pg/mL [facility] Keppra LevelOrdered By: Levi Park on 11-18-2020 Keppra Level 18 ug/mL 12 - 46 ug/mL [facility] Comment on above: INTERPRETIVE INFORMA TION: Keppra (Levetiracetam) Therapeutic Range: 12-46 ug/mL Toxic: Not well Established Pharmacokinetics of levetiracetam are affected by renal function. Adverse effects may include somnolence, weakness, headache and vomiting. This levetiracetam (Keppra) immunoassay uses the [employer] reagents, which has known cross-reactivity with the drug brivaracetam (Briviact) and may report inaccurate results. Patients transitioning from levetiracetam to brivaracetam or those who are using both medications should not monitor drug concentrations with the [employer] assay. These patients should be monitored using a validated chromatographic methodology that distinguishes between drugs to determine drug concentrations. Performed By: [employer] [address] [place] [id number] Refuse Driver: Mary Abreu MD [facility] Potassium LevelOrdered By: Peggy Leon on 11-18-2020 Interpretation and review of laboratory results Abnormal [facility] Potassium [Moles/Vol] 3.4 mmol/L Low 3.6 - 5.1 mmol/L [facility] Basic metabolic panel aka Ch em 8Ordered By: Magali Hernández on 11-17-2020 Calcium [Mass/Vol] 8.9 mg/dL 8.4 - 10. 4 mg/dL [facility] Chloride [Moles/Vol] 105 mmol/L 96 - 10 9 mmol/L [facility] CO2 [Moles/Vol] 22 mmol/L 22 - 30 mmol/L [facility] Creatinine [Mass/Vol] 0.47 mg/dL Low 0.66 - 1.25 mg/dL [facility] Glucose [Mass/Vol] 91 mg/dL 65 - 100 mg/dL [facility] Interpretation and review of laboratory results Abnormal [facility] Potassium [Moles/Vol] 3.5 mmol/L Low 3.6 - 5.1 mmol/L [facility] Sodium [Moles/Vol] 135 mmol/L 135 - 147 mmol/L [facility] Urea nitrogen [Mass/Vol] 2 mg/dL Low 8 - 26 mg/dL [facility] CBCOrdered By: Magali akbar on 11-17-2020 Erythrocyte distribution width (RBC) [Ratio] 15.9 % High 11.5 - 14.5 % [facility] Hematocrit (Bld) [Volume fraction] 32.9 % Low 37.7 - 51.1 % [facility] Hemoglobin (Bld) [Mass/Vol] 11.2 g/dL Low 12.8 - 17.7 g/dL [facility] Interpretation and review of laboratory results Abnormal [facility] MCH (RBC) [Entitic mass] 35.3 pg High 27.0 - 34.2 pg [facility] MCHC (RBC) [Mass/Vol] 34.0 g/dL 31.4 - 36.2 g/dl [facility] MCV (RBC) [Entitic vol] 103.8 fL High 80.6 - 99.0 fL [facility] Platelets (Bld) [#/Vol] 81.0 10*3/uL Low [facility] RBC (Bld) [#/Vol] 3.17 10*6/uL Low [facility] WBC LM Ql (Sput) 5.2 [facility] GLOMERULAR FILTRATION RATEOr dered By: Magali Hernández on 11-17-2020 GFR >60 [facility] Comment on above: To estimate the GFR for Americans, multiply the result provided by 1.21. Population mean GFR = 116 ml/min/1.73 sq.m. for ages 18-29 yrs. The MDRD is validated in individuals 18-70 years of age. It is less accurate in patients with extremes of muscle mass, restriction of dietary protein, ingestion of creatine, extra-renal metabolism of creatinine, or treatment with medications that affect renal tubular creatinine secretion. GFR Categories in Chronic Kidney Disease (CKD) Category: GFR(mL/min/1.73m^2) Interpretation: G1* 90 or greater Normal or high G2* 60-89 Mild decrease G3a 45-59 Mild to moderate decrease G3b 30-44 Moderate to severe decrease G4 15-29 Severe decrease G5 14 or less Kidney failure *G1&G2: In the absence of evidence of kidney damage, neither GFR category G1 nor G2 fulfill the criteria for CKD Kidney Int Suppl.2013;3:1-150 No Panel InformationOrdered By: Magali Hernández on 11-17-2020 [facility] Basic metabolic panel [facility] 8Ordered By: Maxine Mendoza on 11-16-2020 Calcium [Mass/Vol] 8.2 mg/dL Low 8.4 - 10. 4 mg/dL [facility] Chloride [Moles/Vol] 101 mmol/L 96 - 10 9 mmol/L [facility] CO2 [Moles/Vol] 27 mmol/L 22 - 30 mmol/L [facility] Creatinine [Mass/Vol] 0.45 mg/dL Low 0.66 - 1.25 mg/dL [facility] Glucose [Mass/Vol] 85 mg/dL 65 - 100 mg/dL [facility] Interpretation and review of laboratory results Abnormal [facility] Potassium [Moles/Vol] 2.7 mmol/L Critically low 3.6 - 5.1 mmol/L [facility] Sodium [Moles/Vol] 135 mmol/L 135 - 147 mmol/L [facility] Urea nitrogen [Mass/Vol] 6 mg/dL Low 8 - 26 mg/dL [facility] Basic metabolic panel [facility] 8Ordered By: Shiv Park on 11-16-2020 Calcium [Mass/Vol] 9.6 mg/dL 8.4 - 10. 4 mg/dL [facility] Chloride [Moles/Vol] 96 mmol/L 96 - 10 9 mmol/L [facility] CO2 [Moles/Vol] 22 mmol/L 22 - 30 mmol/L [facility] Creatinine [Mass/Vol] 0.47 mg/dL Low 0.66 - 1.25 mg/dL [facility] Glucose [Mass/Vol] 126 mg/dL High 65 - 100 mg/dL [facility] Potassium [Moles/Vol] 3.3 mmol/L Low 3.6 - 5.1 mmol/L [facility] Sodium [Moles/Vol] 135 mmol/L 135 - 147 mmol/L [facility] Urea nitrogen [Mass/Vol] 5 mg/dL Low 8 - 26 mg/dL [facility] CBC with DifferentialOrdered By: Shiv Park on 11-16-2020 Absolute Immature Granulocytes 0.0 0 10 3/uL [facility] Absolute Lymph 0.7 Low [facility] Absolute [place] 0.3 [facility] Basophils (Bld) [#/Vol] 0.0 10*3/uL [facility] Basophils/100 WBC (Bld) 0.5 % [facility] Eosinophils (Bld) [#/Vol] 0.1 10*3/uL [facility] Eosinophils/100 WBC (Bld) 1.0 % [facility] Erythrocyte distribution width (RBC) [Ratio] 15.8 % High 11.5 - 14.5 % [facility] Hematocrit (Bld) [Volume fraction] 35.5 % Low 37.7 - 51.1 % [facility] Hemoglobin (Bld) [Mass/Vol] 12.1 g/dL Low 12.8 - 17.7 g/dL [facility] Immature granulocytes/100 WBC (Bld) 0.5 % [facility] Interpretation and review of laboratory results Abnormal [facility] Lymphocytes/100 WBC (Bld) 12.6 % [facility] MCH (RBC) [Entitic mass] 35.1 pg High 27.0 - 34.2 pg [facility] MCHC (RBC) [Mass/Vol] 34.1 g/dL 31.4 - 36.2 g/dl [facility] MCV (RBC) [Entitic vol] 102.9 fL High 80.6 - 99.0 fL [facility] Monocytes/100 WBC (Bld) 5.8 % [facility] Neutrophils (Bld) [#/Vol] 4.6 10*3/uL [facility] Neutrophils/100 WBC (Bld) 79.6 % [facility] Platelets (Bld) [#/Vol] 72.0 10*3/uL Low [facility] RBC (Bld) [#/Vol] 3.45 10*6/uL Low [facility] WBC LM Ql (Sput) 5.7 [facility] CBC without DifferentialOrde red By: Maxine Mendoza on 11-16-2020 Absolute Immature Granulocytes 0.0 0 10 3/uL [facility] Absolute Lymph 1.0 Low [facility] Absolute [place] 0.3 [facility] Anisocytosis Ql (Bld) [facility] Basophils (Bld) [#/Vol] 0.0 10*3/uL [facility] Basophils/100 WBC (Bld) 0.9 % [facility] Eosinophils (Bld) [#/Vol] 0.1 10*3/uL [facility] Eosinophils/100 WBC (Bld) 1.6 % [facility] Erythrocyte distribution width (RBC) [Ratio] 15.7 % High 11.5 - 14.5 % [facility] Hematocrit (Bld) [Volume fraction] 29.5 % Low 37.7 - 51.1 % [facility] Hemoglobin (Bld) [Mass/Vol] 10.2 g/dL Low 12.8 - 17.7 g/dL [facility] Hypochromia Ql (Bld) 1+ [facility] Immature granulocytes/100 WBC (Bld) 0.5 % [facility] Interpretation and review of laboratory results Abnormal [facility] Lymphocytes/100 WBC (Bld) 23.4 % [facility] MCH (RBC) [Entitic mass] 35.5 pg High 27.0 - 34.2 pg [facility] MCHC (RBC) [Mass/Vol] 34.6 g/dL 31.4 - 36.2 g/dl [facility] MCV (RBC) [Entitic vol] 102.8 fL High 80.6 - 99.0 fL [facility] Monocytes/100 WBC (Bld) 6.5 % [facility] Neutrophils (Bld) [#/Vol] 2.9 10*3/uL [facility] Neutrophils/100 WBC (Bld) 67.1 % [facility] Platelets (Bld) [#/Vol] 57.0 10*3/uL Low [facility] Plt Estimate DECREASED [facility] RBC (Bld) [#/Vol] 2.87 10*6/uL Low [employer] [facility] WBC LM Ql (Sput) 4.3 [facility] EKG 12-LEADOrdered By: Mike Park on 11-16-2020 Stationary ECG Study Test Date: 2020-11-15 Pat Name: YONATHAN FERNANDEZ Department: Room: Gender: Unknown Consulting Analyst: Florentino : 1975 Requested By: Order Number: Reading MD: Shiv Park Measurements Intervals [place] Rate: 82 P: 12 HI: 175 QRS: 2 QRSD: 85 T: 14 QT: 363 QTc: 426 Interpretive Statements SINUS RHYTHM Electronically Signed On 11-16-2020 0:51:12 EDT by Shiv Park [employer] EthanolOrdered By: Shiv natarajan on 11-16-2020 Ethanol Ql (U) <10 NOT DETECTED mg/dL [employer] GLOMERULAR FILTRATION RATEOr dered By: Maxine Mendoza on 11-16-2020 GFR >60 [employer] Comment on above: To estimate the GFR for Americans, multiply the result provided by 1.21. Population mean GFR = 116 ml/min/1.73 sq.m. for ages 18-29 yrs. The MDRD is validated in individuals 18-70 years of age. It is less accurate in patients with extremes of muscle mass, restriction of dietary protein, ingestion of creatine, extra-renal metabolism of creatinine, or treatment with medications that affect renal tubular creatinine secretion. GFR Categories in Chronic Kidney Disease (CKD) Category: GFR(mL/min/1.73m^2) Interpretation: G1* 90 or greater Normal or high G2* 60-89 Mild decrease G3a 45-59 Mild to moderate decrease G3b 30-44 Moderate to severe decrease G4 15-29 Severe decrease G5 14 or less Kidney failure *G1&G2: In the absence of evidence of kidney damage, neither GFR category G1 nor G2 fulfill the criteria for CKD Kidney Int Suppl.2013;3:1-150 GLOMERULAR FILTRATION RATEOr dered By: Shiv Park on 11-16-2020 GFR >60 [employer] Comment on above: To estimate the GFR for Americans, multiply the result provided by 1.21. Population mean GFR = 116 ml/min/1.73 sq.m. for ages 18-29 yrs. The MDRD is validated in individuals 18-70 years of age. It is less accurate in patients with extremes of muscle mass, restriction of dietary protein, ingestion of creatine, extra-renal metabolism of creatinine, or treatment with medications that affect renal tubular creatinine secretion. GFR Categories in Chronic Kidney Disease (CKD) Category: GFR(mL/min/1.73m^2) Interpretation: G1* 90 or greater Normal or high G2* 60-89 Mild decrease G3a 45-59 Mild to moderate decrease G3b 30-44 Moderate to severe decrease G4 15-29 Severe decrease G5 14 or less Kidney failure *G1&G2: In the absence of evidence of kidney damage, neither GFR category G1 nor G2 fulfill the criteria for CKD Kidney Int Suppl.2013;3:1-150 HIV-1 and HIV-2 antibodiesOr dered By: Shiv Park on 11-16-2020 HIV 1+2 Ab Ql (S) Non-Reactive Nonreactive [facility] Comment on above: Nonreactive No detectable HIV-1p24 Antigen or HIV-1/HIV2 antibodies Hepatitis B surface antigenO rdered By: Shiv Park on 11-16-2020 Hep B Surf AG Non-Reactive Nonreactive [facility] Hepatitis C antibodyOrdered By: Shiv Park on 11-16-2020 HCV Ab Qn (S) Non-Reactive Nonreactive [facility] LACTATEOrdered By: Maxine clark on 11-16-2020 Lactate [Moles/Vol] 1.9 mmol/L 0.7 - 2. 0 mmol/L [facility] LACTATEOrdered By: Shiv natarajan on 11-16-2020 Lactate [Moles/Vol] 8.8 mmol/L Critically high 0.7 - 2.0 mmol/L [facility] Comment on above: Sepsis protocol is t o have a lactate result within 3 hours of admission on patients that are septic or have potential to be septic. If the lactate is > 2.0 mmol/L a second lactate has to be drawn and resulted within 6 hours from the initial draw. Please order a timed lactate for 5 hours from the time of the initial draw. No Panel InformationOrdered By: Shiv Park on 11-16-2020 [facility] Interpretation and review of laboratory results Abnormal [facility] nRBC 0 [facility] No Panel InformationOrdered By: Maxine Mendoza on 11-16-2020 nRBC 1 [facility] [facility] PotassiumOrdered By: Jacob Hernández on 11-16-2020 Interpretation and review of laboratory results Abnormal [facility] Potassium [Moles/Vol] 3.3 mmol/L Low 3.6 - 5.1 mmol/L [facility] Protime-INROrdered By: Karli Hernández on 11-16-2020 INR Coag (PPP) [Relative time] 1.04 {INR} [facility] PT Coag (PPP) [Time] 10.7 s Gene [facility] Toxicology screen, urineOrde red By: Maxine Mendoza on 11-16-2020 Amphetamines Screen method >1000 ng/mL Ql (U) Not detected CUTOFF <1000 ng/mL [facility] Barbiturates Screen method >200 ng/mL Ql (U) Not detected CUTOFF <200 ng/mL [facility] Benzodiazepines Ql (U) Positive Abnormal CUTOF F <200 ng/mL [facility] Benzoylecgonine Screen (U) [Mass/Vol] Not detected CUTOFF <300 ng/mL [facility] Cannabinoids Screen method >50 ng/mL Ql (U) Not detected CUTOFF <50 ng/mL [facility] Fentanyl Not detected CUTOFF 1.0 ng/mL [facility] Interpretation and review of laboratory results Abnormal [facility] Opiates Screen (U) [Mass/Vol] Not detected CUTOFF <300 ng/mL [facility] Phencyclidine (U) [Mass/Vol] Not detected CUTOFF <25 ng/mL [facility] Tox Message see below [facility] Comment on above: Notes: 1. SCREENING RESULTS SHOULD BE CONSIDERED PRESUMPTIVE UNLESS THE PRESENCE OF THE ANALYTE HAS BEEN CONFIRMED BY A REFERENCE LAB. 2. ALL DRUG GROUPS ARE ANALYZED ON URINE. [facility] Basic metabolic panel aka Ch em 8Ordered By: Arjun Bahena on 09-30-2020 Calcium [Mass/Vol] 9.6 mg/dL 8.4 - 10. 4 mg/dL [facility] Chloride [Moles/Vol] 100 mmol/L 96 - 10 9 mmol/L [facility] CO2 [Moles/Vol] 29 mmol/L 22 - 30 mmol/L [facility] Creatinine [Mass/Vol] 0.72 mg/dL 0.66 - 1.25 mg/dL [facility] Glucose [Mass/Vol] 143 mg/dL High 65 - 100 mg/dL [facility] Potassium [Moles/Vol] 3.3 mmol/L Low 3.6 - 5.1 mmol/L [facility] Sodium [Moles/Vol] 138 mmol/L 135 - 147 mmol/L [facility] Urea nitrogen [Mass/Vol] 7 mg/dL Low 8 - 26 mg/dL [facility] CBC without DifferentialOrde red By: Arjun Phelpss on 09-30-2020 Absolute Lymph 0.9 Low [facility] Absolute [place] 0.7 High [facility] Anisocytosis Ql (Bld) 1+ Gen [facility] Basophils (Bld) [#/Vol] 0.1 10*3/uL [facility] Basophils/100 WBC (Bld) 1.4 % G [facility] Eosinophils (Bld) [#/Vol] 0.4 10*3/uL High [facility] Eosinophils/100 WBC (Bld) 4.3 % [facility] Erythrocyte distribution width (RBC) [Ratio] 14.6 % High 11.5 - 14.5 % [facility] Hematocrit (Bld) [Volume fraction] 33.3 % Low 37.7 - 51.1 % [facility] Hemoglobin (Bld) [Mass/Vol] 11.1 g/dL Low 12.8 - 17.7 g/dL [facility] Interpretation and review of laboratory results Abnormal [facility] Lymphocytes/100 WBC (Bld) 9.3 % [facility] Macrocytosis 1+ [facility] MCH (RBC) [Entitic mass] 37.1 pg High 27 - 34.2 pg [facility] MCHC (RBC) [Mass/Vol] 33.3 g/dL 31.4 - 36.2 g/dl [facility] MCV (RBC) [Entitic vol] 111.4 fL High 80.6 - 99 fL [facility] Monocytes/100 WBC (Bld) 7.0 % [facility] Neutrophils (Bld) [#/Vol] 7.9 10*3/uL High [facility] Neutrophils/100 WBC (Bld) 78.0 % [facility] Platelets (Bld) [#/Vol] 520.0 10*3/uL High [facility] Plt Estimate INCREASED [facility] RBC (Bld) [#/Vol] 2.99 10*6/uL Low [facility] WBC LM Ql (Sput) 10.1 [facility] GLOMERULAR FILTRATION RATEOr dered By: Arjun Bahena on 09-30-2020 GFR >60 [facility] Comment on above: To estimate the GFR for Americans, multiply the result provided by 1.21. Population mean GFR = 116 ml/min/1.73 sq.m. for ages 18-29 yrs. The MDRD is validated in individuals 18-70 years of age. It is less accurate in patients with extremes of muscle mass, restriction of dietary protein, ingestion of creatine, extra-renal metabolism of creatinine, or treatment with medications that affect renal tubular creatinine secretion. GFR Categories in Chronic Kidney Disease (CKD) Category: GFR(mL/min/1.73m^2) Interpretation: G1* 90 or greater Normal or high G2* 60-89 Mild decrease G3a 45-59 Mild to moderate decrease G3b 30-44 Moderate to severe decrease G4 15-29 Severe decrease G5 14 or less Kidney failure *G1&G2: In the absence of evidence of kidney damage, neither GFR category G1 nor G2 fulfill the criteria for CKD Kidney Int Suppl.2013;3:1-150 MagnesiumOrdered By: Ángel Marquis igmatoulline on 09-30-2020 Magnesium [Mass/Vol] 1.5 mg/dL Low 1.6 - 2 .3 mg/dL [facility] No Panel InformationOrdered By: Arjun Bahena on 09-30-2020 Interpretation and review of laboratory results Abnormal [facility] PHOSPHORUSOrdered By: Ángel Mondragontopatrick on 09-30-2020 Phosphate [Mass/Vol] 4.6 mg/dL High 2.5 - 4 .5 mg/dL [facility] PotassiumOrdered By: Arjun Bahena on 09-30-2020 Potassium [Moles/Vol] 4.6 mmol/L 3.6 - 5.1 mmol/L [facility] TSHOrdered By: Ángel nguyen on 09-30-2020 TSH Qn 1.580 m[IU]/L [facility] Basic metabolic panel aka Ch em 8Ordered By: Arjun Bahena on 09-29-2020 Calcium [Mass/Vol] 9.3 mg/dL 8.4 - 10. 4 mg/dL [facility] Chloride [Moles/Vol] 101 mmol/L 96 - 10 9 mmol/L [facility] CO2 [Moles/Vol] 26 mmol/L 22 - 30 mmol/L [facility] Creatinine [Mass/Vol] 0.70 mg/dL 0.66 - 1.25 mg/dL [facility] Glucose [Mass/Vol] 132 mg/dL High 65 - 100 mg/dL [facility] Interpretation and review of laboratory results Abnormal [facility] Potassium [Moles/Vol] 2.8 mmol/L Critically low 3.6 - 5.1 mmol/L [facility] Sodium [Moles/Vol] 137 mmol/L 135 - 147 mmol/L [facility] Urea nitrogen [Mass/Vol] 4 mg/dL Low 8 - 26 mg/dL [facility] CBC without DifferentialOrde red By: Arjun Bahena on 09-29-2020 Absolute Lymph 1.5 [facility] Absolute [place] 0.8 High [facility] Anisocytosis Ql (Bld) 1+ Gen [facility] Basophils (Bld) [#/Vol] 0.1 10*3/uL [facility] Basophils/100 WBC (Bld) 0.6 % [facility] Eosinophils (Bld) [#/Vol] 0.3 10*3/uL [facility] Eosinophils/100 WBC (Bld) 3.8 % [facility] Erythrocyte distribution width (RBC) [Ratio] 14.6 % High 11.5 - 14.5 % [facility] Hematocrit (Bld) [Volume fraction] 34.3 % Low 37.7 - 51.1 % [facility] Hemoglobin (Bld) [Mass/Vol] 11.4 g/dL Low 12.8 - 17.7 g/dL [facility] Interpretation and review of laboratory results Abnormal [facility] Lymphocytes/100 WBC (Bld) 17.8 % [facility] Macrocytosis 1+ [facility] MCH (RBC) [Entitic mass] 36.9 pg High 27 - 34.2 pg [facility] MCHC (RBC) [Mass/Vol] 33.2 g/dL 31.4 - 36.2 g/dl [facility] MCV (RBC) [Entitic vol] 111.0 fL High 80.6 - 99 fL [facility] Monocytes/100 WBC (Bld) 9.4 % G [facility] Neutrophils (Bld) [#/Vol] 5.7 10*3/uL [facility] Neutrophils/100 WBC (Bld) 68.4 % [facility] Platelets (Bld) [#/Vol] 433.0 10*3/uL High [facility] Plt Estimate NORMAL [facility] Polychromasia LM Ql (Bld) 1+ [facility] RBC (Bld) [#/Vol] 3.09 10*6/uL Low [facility] WBC LM Ql (Sput) 8.3 [facility] [place] ESOPHAGRAM VIDEOOrdered B y: Ayaz Lund on 09-29-2020 No penetration or aspiration noted. AP view suspicious for retention below PES. Please see separate speech pathology report for full discussion of findings and recommendations. [facility] EXAMINATION: MODIFIE D BARIUM SWALLOW WAS PERFORMED IN CONJUNCTION WITH SPEECH PATHOLOGY SERVICES TECHNIQUE: Fluoroscopic evaluation of the swallowing mechanism was performed with multiple consistency of barium product. FLUOROSCOPY DOSE AND TYPE OR TIME AND EXPOSURES: Total fluoroscopic time was 1.2 minute. Total of 2298 fluoroscopic images submitted. COMPARISON: None HISTORY: Dysphagia/difficulty swallowing,diet/liqui d consistency recommendations,R/O Aspiration FINDINGS: No penetration or aspiration noted. AP view suspicious for retention below PES. [facility] Pb, Rad Results In - 09/29/2020 12:04 PM EDT EXAMINATION: MODIFIED BARIUM SWALLOW WAS PERFORMED IN CONJUNCTION WITH SPEECH PATHOLOGY SERVICES TECHNIQUE: Fluoroscopic evaluation of the swallowing mechanism was performed with multiple consistency of barium product. FLUOROSCOPY DOSE AND TYPE OR TIME AND EXPOSURES: Total fluoroscopic time was 1.2 minute. Total of 2298 fluoroscopic images submitted. COMPARISON: None HISTORY: Dysphagia/difficulty swallowing,diet/liqui d consistency recommendations,R/O Aspiration FINDINGS: No penetration or aspiration noted. AP view suspicious for retention below PES. IMPRESSION: No penetration or aspiration noted. AP view suspicious for retention below PES. Please see separate speech pathology report for full discussion of findings and recommendations. [facility] GLOMERULAR FILTRATION RATEOr dered By: Ángel Rodríguez on 09-29-2020 GFR >60 [facility] Comment on above: To estimate the GFR for Americans, multiply the result provided by 1.21. Population mean GFR = 116 ml/min/1.73 sq.m. for ages 18-29 yrs. The MDRD is validated in individuals 18-70 years of age. It is less accurate in patients with extremes of muscle mass, restriction of dietary protein, ingestion of creatine, extra-renal metabolism of creatinine, or treatment with medications that affect renal tubular creatinine secretion. GFR Categories in Chronic Kidney Disease (CKD) Category: GFR(mL/min/1.73m^2) Interpretation: G1* 90 or greater Normal or high G2* 60-89 Mild decrease G3a 45-59 Mild to moderate decrease G3b 30-44 Moderate to severe decrease G4 15-29 Severe decrease G5 14 or less Kidney failure *G1&G2: In the absence of evidence of kidney damage, neither GFR category G1 nor G2 fulfill the criteria for CKD Kidney Int Suppl.2013;3:1-150 GLOMERULAR FILTRATION RATEOr dered By: Arjun Bahena on 09-29-2020 GFR >60 [facility] Comment on above: To estimate the GFR for Americans, multiply the result provided by 1.21. Population mean GFR = 116 ml/min/1.73 sq.m. for ages 18-29 yrs. The MDRD is validated in individuals 18-70 years of age. It is less accurate in patients with extremes of muscle mass, restriction of dietary protein, ingestion of creatine, extra-renal metabolism of creatinine, or treatment with medications that affect renal tubular creatinine secretion. GFR Categories in Chronic Kidney Disease (CKD) Category: GFR(mL/min/1.73m^2) Interpretation: G1* 90 or greater Normal or high G2* 60-89 Mild decrease G3a 45-59 Mild to moderate decrease G3b 30-44 Moderate to severe decrease G4 15-29 Severe decrease G5 14 or less Kidney failure *G1&G2: In the absence of evidence of kidney damage, neither GFR category G1 nor G2 fulfill the criteria for CKD Kidney Int Suppl.2013;3:1-150 No Panel InformationOrdered By: Ángel Rodríguez on 09-29-2020 [facility] No Panel InformationOrdered By: Arjun Bahena on 09-29-2020 [facility] Renal panelOrdered By: Ángel Rodríguez on 09-29-2020 Albumin [Mass/Vol] 3.7 g/dL 3.5 - 5 g/dL [facility] Calcium [Mass/Vol] 9.4 mg/dL 8.4 - 10. 4 mg/dL [facility] Chloride [Moles/Vol] 101 mmol/L 96 - 10 9 mmol/L [facility] CO2 [Moles/Vol] 25 mmol/L 22 - 30 mmol/L [facility] Creatinine [Mass/Vol] 0.70 mg/dL 0.66 - 1.25 mg/dL [facility] Glucose [Mass/Vol] 142 mg/dL High 65 - 100 mg/dL [facility] Interpretation and review of laboratory results Abnormal [facility] Phosphate [Mass/Vol] 4.7 mg/dL High 2.5 - 4 .5 mg/dL [facility] Potassium [Moles/Vol] 2.9 mmol/L Critically low 3.6 - 5.1 mmol/L [facility] Sodium [Moles/Vol] 136 mmol/L 135 - 147 mmol/L [facility] Urea nitrogen [Mass/Vol] 4 mg/dL Low 8 - 26 mg/dL [facility] Basic metabolic panel aka Ch em 8Ordered By: Arjun Bahena on 09-28-2020 Calcium [Mass/Vol] 9.0 mg/dL 8.4 - 10. 4 mg/dL [facility] Chloride [Moles/Vol] 102 mmol/L 96 - 10 9 mmol/L [facility] CO2 [Moles/Vol] 27 mmol/L 22 - 30 mmol/L [facility] Creatinine [Mass/Vol] 0.64 mg/dL Low 0.66 - 1.25 mg/dL [facility] Glucose [Mass/Vol] 98 mg/dL 65 - 100 mg/dL [facility] Interpretation and review of laboratory results Abnormal [facility] Potassium [Moles/Vol] 4.0 mmol/L 3.6 - 5.1 mmol/L [facility] Sodium [Moles/Vol] 136 mmol/L 135 - 147 mmol/L [facility] Urea nitrogen [Mass/Vol] 4 mg/dL Low 8 - 26 mg/dL [facility] CBC without DifferentialOrde red By: Arjun Bahena on 09-28-2020 Absolute Lymph 1.0 Low [facility] Absolute [place] 0.9 High [facility] Anisocytosis Ql (Bld) 1+ Gen [facility] Basophils (Bld) [#/Vol] 0.0 10*3/uL [facility] Basophils/100 WBC (Bld) 0.4 % G [facility] Eosinophils (Bld) [#/Vol] 0.3 10*3/uL [facility] Eosinophils/100 WBC (Bld) 3.4 % [facility] Erythrocyte distribution width (RBC) [Ratio] 14.6 % High 11.5 - 14.5 % [facility] Hematocrit (Bld) [Volume fraction] 34.9 % Low 37.7 - 51.1 % [facility] Hemoglobin (Bld) [Mass/Vol] 11.4 g/dL Low 12.8 - 17.7 g/dL [facility] Interpretation and review of laboratory results Abnormal [facility] Lymphocytes/100 WBC (Bld) 13.0 % [facility] Macrocytosis 1+ [facility] MCH (RBC) [Entitic mass] 36.7 pg High 27 - 34.2 pg [facility] MCHC (RBC) [Mass/Vol] 32.7 g/dL 31.4 - 36.2 g/dl [facility] MCV (RBC) [Entitic vol] 112.2 fL High 80.6 - 99 fL [facility] Monocytes/100 WBC (Bld) 10.8 % [facility] Neutrophils (Bld) [#/Vol] 5.8 10*3/uL [facility] Neutrophils/100 WBC (Bld) 72.4 % [facility] Platelets (Bld) [#/Vol] 380.0 10*3/uL [facility] Plt Estimate NORMAL [facility] RBC (Bld) [#/Vol] 3.11 10*6/uL [facility] WBC LM Ql (Sput) 8.0 [facility] GLOMERULAR FILTRATION RATEOr dered By: Arjun Bahena on 09-28-2020 GFR >60 [facility] Comment on above: To estimate the GFR for Americans, multiply the result provided by 1.21. Population mean GFR = 116 ml/min/1.73 sq.m. for ages 18-29 yrs. The MDRD is validated in individuals 18-70 years of age. It is less accurate in patients with extremes of muscle mass, restriction of dietary protein, ingestion of creatine, extra-renal metabolism of creatinine, or treatment with medications that affect renal tubular creatinine secretion. GFR Categories in Chronic Kidney Disease (CKD) Category: GFR(mL/min/1.73m^2) Interpretation: G1* 90 or greater Normal or high G2* 60-89 Mild decrease G3a 45-59 Mild to moderate decrease G3b 30-44 Moderate to severe decrease G4 15-29 Severe decrease G5 14 or less Kidney failure *G1&G2: In the absence of evidence of kidney damage, neither GFR category G1 nor G2 fulfill the criteria for CKD Kidney Int Suppl.2013;3:1-150 No Panel InformationOrdered By: Arjun Bahena on 09-28-2020 [facility] Sputum cultureOrdered By: Modi on 09-28-2020 Bacteria identified Respiratory culture Nom (Sput) SPARSE GROWTH NORMAL VANNESSA PRESENT [facility] Gram Stain of Culture PMN'S 3+ EPITHELIAL CELLS RARE NO ORGANISMS SEEN [facility] Site: sputum [facility] Basic metabolic panel aka Ch em 8Ordered By: Arjun Bahena on 09-27-2020 Calcium [Mass/Vol] 9.0 mg/dL 8.4 - 10. 4 mg/dL [facility] Chloride [Moles/Vol] 101 mmol/L 96 - 10 9 mmol/L [facility] CO2 [Moles/Vol] 23 mmol/L 22 - 30 mmol/L [facility] Creatinine [Mass/Vol] 0.78 mg/dL 0.66 - 1.25 mg/dL [facility] Glucose [Mass/Vol] 99 mg/dL 65 - 100 mg/dL [facility] Interpretation and review of laboratory results Abnormal [facility] Potassium [Moles/Vol] 3.5 mmol/L Low 3.6 - 5.1 mmol/L [facility] Sodium [Moles/Vol] 134 mmol/L Low 135 - 147 mmol/L [facility] Urea nitrogen [Mass/Vol] 13 mg/dL 8 - 26 mg/dL [facility] CBC without DifferentialOrde red By: Arjun Bahena on 09-27-2020 Absolute Lymph 1.4 [facility] Absolute [place] 1.4 High [facility] Anisocytosis Ql (Bld) 1+ Gen [facility] Basophils (Bld) [#/Vol] 0.1 10*3/uL [facility] Basophils/100 WBC (Bld) 1.0 % [facility] Eosinophils (Bld) [#/Vol] 0.1 10*3/uL [facility] Eosinophils/100 WBC (Bld) 1.4 % [facility] Erythrocyte distribution width (RBC) [Ratio] 14.7 % High 11.5 - 14.5 % [facility] Hematocrit (Bld) [Volume fraction] 36.4 % Low 37.7 - 51.1 % [facility] Hemoglobin (Bld) [Mass/Vol] 12.1 g/dL Low 12.8 - 17.7 g/dL [facility] Interpretation and review of laboratory results Abnormal [facility] Lymphocytes/100 WBC (Bld) 17.9 % [facility] Macrocytosis 1+ [facility] MCH (RBC) [Entitic mass] 37.3 pg High 27 - 34.2 pg [facility] MCHC (RBC) [Mass/Vol] 33.2 g/dL 31.4 - 36.2 g/dl [facility] MCV (RBC) [Entitic vol] 112.3 fL High 80.6 - 99 fL [facility] Monocytes/100 WBC (Bld) 16.9 % [facility] Neutrophils (Bld) [#/Vol] 5.1 10*3/uL [facility] Neutrophils/100 WBC (Bld) 62.8 % [facility] Platelets (Bld) [#/Vol] 331.0 10*3/uL [facility] Plt Estimate NORMAL [facility] RBC (Bld) [#/Vol] 3.24 10*6/uL [facility] WBC LM Ql (Sput) 8.1 [facility] GLOMERULAR FILTRATION RATEOr dered By: Arjun Bahena on 09-27-2020 GFR >60 [facility] Comment on above: To estimate the GFR for Americans, multiply the result provided by 1.21. Population mean GFR = 116 ml/min/1.73 sq.m. for ages 18-29 yrs. The MDRD is validated in individuals 18-70 years of age. It is less accurate in patients with extremes of muscle mass, restriction of dietary protein, ingestion of creatine, extra-renal metabolism of creatinine, or treatment with medications that affect renal tubular creatinine secretion. GFR Categories in Chronic Kidney Disease (CKD) Category: GFR(mL/min/1.73m^2) Interpretation: G1* 90 or greater Normal or high G2* 60-89 Mild decrease G3a 45-59 Mild to moderate decrease G3b 30-44 Moderate to severe decrease G4 15-29 Severe decrease G5 14 or less Kidney failure *G1&G2: In the absence of evidence of kidney damage, neither GFR category G1 nor G2 fulfill the criteria for CKD Kidney Int Suppl.2013;3:1-150 No Panel InformationOrdered By: Arjun Bahena on 09-27-2020 [facility] ABG with Co-ox, Lytes, and L actate OxygenOrdered By: Ayaz Lund on 09-26-2020 Allens Test Yes [facility] Anion gap [Moles/Vol] 14.9 mmol/L [facility] Base excess Calc (Bld) [Moles/Vol] -2.9000 mmol/L Low -2 - 2 mmol/L [facility] Calcium.ionized ISE [Moles/Vol] 1.13 mmol/L Low 1.15 - 1.29 mmol/L [facility] Chloride [Moles/Vol] 100 mmol/L 98 - 10 6 mmol/L [facility] CO2 (Bld) [Partial pressure] 31.9 mm[Hg] Low [facility] COHb 0.6 % 0 - 0.8 % [facility] Glucose [Mass/Vol] 99 mg/dL 70 - 105 mg/dL [facility] HCO3 (Bld) [Moles/Vol] 20.5 mmol/L Low 22 - 26 mmol/L [facility] Hematrocrit 42 % 37 - 50 % [facility] HHb 3.8 % 0 - 5 % [facility] Interpretation and review of laboratory results Abnormal [facility] Lactate [Moles/Vol] 1.03 mmol/L 0.5 - 1. 6 mmol/L [facility] Liter Flow 15 [facility] MetHb 0.5 % 0.2 - 0.6 % [facility] O2 Device Non Rebreather [facility] O2Hb 95.1 % 94 - 100 % [facility] Oxygen (Bld) [Partial pressure] 82.9 mm[Hg] [facility] pH (Bld) 7.425 [pH] [facility] Potassium (BldA) [Moles/Vol] 3.78 mmol/L 3.5 - 5 mmol/L [facility] Sample Site Left Radial [facility] Sample Type Blood Arterial [facility] SO2 96.2 % 92 - 98.5 % [facility] Sodium [Moles/Vol] 131.6 mmol/L Low 136 - 146 mmol/L [facility] tHb 14.3 g/dL 12 - 18 g/dL [facility] Basic metabolic panel aka Ch em 8Ordered By: Arjun Bahena on 09-26-2020 Calcium [Mass/Vol] 9.0 mg/dL 8.4 - 10. 4 mg/dL [facility] Chloride [Moles/Vol] 101 mmol/L 96 - 10 9 mmol/L [facility] CO2 [Moles/Vol] 21 mmol/L Low 22 - 30 mmol/L [facility] Creatinine [Mass/Vol] 1.03 mg/dL 0.66 - 1.25 mg/dL [facility] Glucose [Mass/Vol] 106 mg/dL High 65 - 100 mg/dL [facility] Interpretation and review of laboratory results Abnormal [facility] Potassium [Moles/Vol] 3.8 mmol/L 3.6 - 5.1 mmol/L [facility] Sodium [Moles/Vol] 134 mmol/L Low 135 - 147 mmol/L [facility] Urea nitrogen [Mass/Vol] 16 mg/dL 8 - 26 mg/dL [facility] CBC without DifferentialOrde red By: Arjun Bahena on 09-26-2020 Absolute Eosinophil Manual 0.2 [facility] Absolute Lymph Manual 1.3 [facility] Absolute Neutrophil Manual 5.1 [facility] Anisocytosis Ql (Bld) 1+ [facility] Band form neutrophils/100 WBC (Bld) 16.0 % [facility] Eosinophils/100 WBC (Bld) 2.0 % [facility] Erythrocyte distribution width (RBC) [Ratio] 14.9 % High 11.5 - 14.5 % [facility] Hematocrit (Bld) [Volume fraction] 36.5 % Low 37.7 - 51.1 % [facility] Hemoglobin (Bld) [Mass/Vol] 12.1 g/dL Low 12.8 - 17.7 g/dL [facility] Interpretation and review of laboratory results Abnormal [facility] Lymphocyte Manual 17.0 % [facility] Macrocytosis 1+ [facility] MCH (RBC) [Entitic mass] 37.3 pg High 27 - 34.2 pg [facility] MCHC (RBC) [Mass/Vol] 33.2 g/dL 31.4 - 36.2 g/dl [facility] MCV (RBC) [Entitic vol] 112.7 fL High 80.6 - 99 fL [facility] Monocytes (Bld) [#/Vol] 1.0 10*3/uL High [facility] Monocytes/100 WBC (Bld) 13.0 % [facility] Morphology Jones (Bld) [Interp] SEE BELOW [facility] Comment on above: occ large platelets Neutrophils/100 WBC (Body fld) 52.0 % [facility] [facility] (Bld) [#/Vol] 297.0 10*3/uL [facility] Plt Estimate NORMAL [facility] RBC (Bld) [#/Vol] 3.24 10*6/uL Low [facility] WBC LM Ql (Sput) 7.5 [facility] GLOMERULAR FILTRATION RATEOr dered By: Arjun Bahena on 09-26-2020 GFR >60 [facility] Comment on above: To estimate the GFR for Americans, multiply the result provided by 1.21. Population mean GFR = 116 ml/min/1.73 sq.m. for ages 18-29 yrs. The MDRD is validated in individuals 18-70 years of age. It is less accurate in patients with extremes of muscle mass, restriction of dietary protein, ingestion of creatine, extra-renal metabolism of creatinine, or treatment with medications that affect renal tubular creatinine secretion. GFR Categories in Chronic Kidney Disease (CKD) Category: GFR(mL/min/1.73m^2) Interpretation: G1* 90 or greater Normal or high G2* 60-89 Mild decrease G3a 45-59 Mild to moderate decrease G3b 30-44 Moderate to severe decrease G4 15-29 Severe decrease G5 14 or less Kidney failure *G1&G2: In the absence of evidence of kidney damage, neither GFR category G1 nor G2 fulfill the criteria for CKD Kidney Int Suppl.2013;3:1-150 LactateOrdered By: Ayaz marquis on 09-26-2020 Lactate [Moles/Vol] 1.1 mmol/L 0.7 - 2 mmol/L [facility] No Panel InformationOrdered By: rAjun Bahena on 09-26-2020 [facility] ProcalcitoninOrdered By: Archana Lund on 09-26-2020 Interpretation and review of laboratory results Abnormal [facility] Procalcitonin 0.198 ng/mL High 0 - 0.077 ng/mL [facility] Comment on above: Procalcitonin Interp retation Guidelines Diagnosis of Systemic Bacterial Infection/Sepsis/or Septic Shock <0.50 ng/mL: Low risk for sepsis; localized infection possible. Recommend retest within 6-24hrs. >=0.50-<2.0 ng/mL: Sepsis is possible. Interpret in context of clinical condition of the patient. Recommend retest within 6-24hrs. >=2.0 ng/mL: High risk for sepsis and /or septic shock. >10.0 ng/mL: Severe sepsis or septic shock. Diagnosis of Lower Respiratory Tract Infection (LRTI) and Antibiotic Therapy Recommendation <0.10 ng/mL: Bacterial infection very unlikely. Antibiotics strongly discouraged. 0.10-0.25 ng/mL: Bacterial infection unlikely. Antibiotics discouraged. 0.26-0.50 ng/mL: Bacterial infection likely. Antibiotics encouraged. >0.51 ng/mL: Bacterial infection very likely. Antibiotics strongly encouraged. [facility] SARS-COV-2, PCROrdered By: Hunter Lund on 09-26-2020 SARS-CoV-2 (COVID-19) RNA RFANKLIN+probe Ql (Unsp spec) Negative Negative [facility] Comment on above: Negative results do not preclude SARS-CoV-2 infection and should not be used as the sole basis for treatment or other patient management decisions. Negative results must be combined with clinical observations, patient history, and epidemiological information. The Xpert Xpress SARS-CoV-2/Flu/RSV test is only for use under the Food and Drug Administration s Emergency Use Authorization. Results are for the simultaneous detection and differentiation of SARS-CoV-2, influenza A virus, influenza B virus and RSV RNA which are generally detectable in upper respiratory specimens during the acute phase of infection. [facility] Toxicology screen, urineOrde red By: Samreen Jacobson on 09-26-2020 Amphetamines Screen method >1000 ng/mL Ql (U) Not detected CUTOFF <1000 ng/mL [facility] Barbiturates Screen method >200 ng/mL Ql (U) Positive Abnormal CUTOFF <200 ng/mL [facility] Benzodiazepines Ql (U) Positive Abnormal CUTOF F <200 ng/mL [facility] Benzoylecgonine Screen (U) [Mass/Vol] Not detected CUTOFF <300 ng/mL [facility] Cannabinoids Screen method >50 ng/mL Ql (U) Not detected CUTOFF <50 ng/mL [facility] Fentanyl Not detected CUTOFF 1.0 ng/mL [facility] Interpretation and review of laboratory results Abnormal [facility] Opiates Screen (U) [Mass/Vol] Not detected CUTOFF <300 ng/mL [facility] Phencyclidine (U) [Mass/Vol] Not detected CUTOFF <25 ng/mL [facility] Tox Message see below [facility] Comment on above: Notes: 1. SCREENING RESULTS SHOULD BE CONSIDERED PRESUMPTIVE UNLESS THE PRESENCE OF THE ANALYTE HAS BEEN CONFIRMED BY A REFERENCE LAB. 2. ALL DRUG GROUPS ARE ANALYZED ON URINE. [employer] XR Chest Portable (1 View)Or dered By: Josie Jacobs on 09-26-2020 Suboptimal examination due to low depth of inspiration. There appears to be worsening opacities at the right lung base and left retrocardiac region, concerning for developing pneumonias. Question tiny right pleural effusion. Recommend continued radiographic follow up to document resolution. [facility] EXAMINATION: Portabl e upright chest radiograph, one view 09/26/2020 7:25 am COMPARISON: 09/25/2020 HISTORY: Aspiration, shortness of breath FINDINGS: Suboptimal examination due to low depth of inspiration. Osseous structures are intact. No pneumothorax or pulmonary vascular congestion. Minimal left base atelectasis. May be a tiny left pleural effusion. Mildly progressed patchy opacity at the right lung base. There also appears to be developing left retrocardiac opacity. [facility] Pb, Rad Results In - 09/26/2020 7:51 AM EDT EXAMINATION: Portable upright chest radiograph, one view 09/26/2020 7:25 am COMPARISON: 09/25/2020 HISTORY: Aspiration, shortness of breath FINDINGS: Suboptimal examination due to low depth of inspiration. Osseous structures are intact. No pneumothorax or pulmonary vascular congestion. Minimal left base atelectasis. May be a tiny left pleural effusion. Mildly progressed patchy opacity at the right lung base. There also appears to be developing left retrocardiac opacity. IMPRESSION: Suboptimal examination due to low depth of inspiration. There appears to be worsening opacities at the right lung base and left retrocardiac region, concerning for developing pneumonias. Question tiny right pleural effusion. Recommend continued radiographic follow up to document resolution. [facility] AmmoniaOrdered By: Ayaz marquis on 09-25-2020 Ammonia (P) [Moles/Vol] 17 umol/L 9 - 30 umol/ L [facility] Basic metabolic panel aka Ch em 8Ordered By: Arjun Bahena on 09-25-2020 Calcium [Mass/Vol] 9.2 mg/dL 8.4 - 10. 4 mg/dL [facility] Chloride [Moles/Vol] 102 mmol/L 96 - 10 9 mmol/L [facility] CO2 [Moles/Vol] 22 mmol/L 22 - 30 mmol/L [facility] Creatinine [Mass/Vol] 0.78 mg/dL 0.66 - 1.25 mg/dL [facility] Glucose [Mass/Vol] 128 mg/dL High 65 - 100 mg/dL [facility] Interpretation and review of laboratory results Abnormal [facility] Potassium [Moles/Vol] 3.8 mmol/L 3.6 - 5.1 mmol/L [facility] Sodium [Moles/Vol] 133 mmol/L Low 135 - 147 mmol/L [facility] Urea nitrogen [Mass/Vol] 16 mg/dL 8 - 26 mg/dL [facility] CBC without DifferentialOrde red By: Arjun Bahena on 09-25-2020 Absolute Lymph 1.1 Low [facility] Absolute [place] 1.0 High [facility] Anisocytosis Ql (Bld) 1+ Gen [facility] Basophils (Bld) [#/Vol] 0.0 10*3/uL [facility] Basophils/100 WBC (Bld) 0.4 % G [facility] Eosinophils (Bld) [#/Vol] 0.3 10*3/uL [facility] Eosinophils/100 WBC (Bld) 4.8 % [facility] Erythrocyte distribution width (RBC) [Ratio] 14.9 % High 11.5 - 14.5 % [facility] Hematocrit (Bld) [Volume fraction] 37.9 % 37.7 - 51.1 % [facility] Hemoglobin (Bld) [Mass/Vol] 12.8 g/dL 12.8 - 17.7 g/dL [facility] Interpretation and review of laboratory results Abnormal [facility] Lymphocytes/100 WBC (Bld) 16.2 % [facility] Macrocytosis 1+ [facility] MCH (RBC) [Entitic mass] 37.4 pg High 27 - 34.2 pg [facility] MCHC (RBC) [Mass/Vol] 33.8 g/dL 31.4 - 36.2 g/dl [facility] MCV (RBC) [Entitic vol] 110.8 fL High 80.6 - 99 fL [facility] Monocytes/100 WBC (Bld) 15.0 % G enesis [facility] Neutrophils (Bld) [#/Vol] 4.4 10*3/uL [facility] Neutrophils/100 WBC (Bld) 63.6 % [facility] Platelets (Bld) [#/Vol] 226.0 10*3/uL [facility] Plt Estimate NORMAL [facility] RBC (Bld) [#/Vol] 3.42 10*6/uL [facility] WBC LM Ql (Sput) 6.9 [facility] GLOMERULAR FILTRATION RATEOr dered By: Arjun Bahena on 09-25-2020 GFR >60 [facility] Comment on above: To estimate the GFR for Americans, multiply the result provided by 1.21. Population mean GFR = 116 ml/min/1.73 sq.m. for ages 18-29 yrs. The MDRD is validated in individuals 18-70 years of age. It is less accurate in patients with extremes of muscle mass, restriction of dietary protein, ingestion of creatine, extra-renal metabolism of creatinine, or treatment with medications that affect renal tubular creatinine secretion. GFR Categories in Chronic Kidney Disease (CKD) Category: GFR(mL/min/1.73m^2) Interpretation: G1* 90 or greater Normal or high G2* 60-89 Mild decrease G3a 45-59 Mild to moderate decrease G3b 30-44 Moderate to severe decrease G4 15-29 Severe decrease G5 14 or less Kidney failure *G1&G2: In the absence of evidence of kidney damage, neither GFR category G1 nor G2 fulfill the criteria for CKD Kidney Int Suppl.2013;3:1-150 MRI Brain Without IV Contras tOrdered By: Samreen Jacobson on 09-25-2020 1. Limited and incomplete exam, grossly negative for acute process, within the limits of this study. . RECOMMENDATIONS: 1. If the patient can be adequately sedated, repeat MRI of the brain, without and with contrast, could be attempted. . [facility] EXAMINATION: MRI OF THE BRAIN WITHOUT CONTRAST 09/25/2020 TECHNIQUE: Multiplanar multisequence MRI of the brain was performed without the administration of intravenous contrast. COMPARISON: Noncontrast Head CT 09/19/2020 HISTORY: confusion Pt confused, incoherent and combative. Limited sequences due to pt pulling at head coil and unable to complete entire scan. FINDINGS: This exam was terminated early due to difficulties with patient combativeness. Only a pre-contrast sagittal T1 and axial diffusion-weighted sequence could be obtained, further limited by patient motion. Given these factors: INTRACRANIAL STRUCTURES/VENTRICLES : This exam is grossly negative for mass effect/midline shift, intra/extra-axial fluid collection, abnormally-restricted diffusion. PARANASAL SINUSES: At least one, small probable mucous retention cyst is incidentally demonstrated within the right maxillary sinus. BONES/SOFT TISSUES: At least minimal upper cervical degenerative disease is only incidentally demonstrated. Marrow signal otherwise appears physiologic. . [employer] Pb, Rad Results In - 09/25/2020 7:20 PM EDT EXAMINATION: MRI OF THE BRAIN WITHOUT CONTRAST 09/25/2020 TECHNIQUE: Multiplanar multisequence MRI of the brain was performed without the administration of intravenous contrast. COMPARISON: Noncontrast Head CT 09/19/2020 HISTORY: confusion Pt confused, incoherent and combative. Limited sequences due to pt pulling at head coil and unable to complete entire scan. FINDINGS: This exam was terminated early due to difficulties with patient combativeness. Only a pre-contrast sagittal T1 and axial diffusion-weighted sequence could be obtained, further limited by patient motion. Given these factors: INTRACRANIAL STRUCTURES/VENTRICLES : This exam is grossly negative for mass effect/midline shift, intra/extra-axial fluid collection, abnormally-restricted diffusion. PARANASAL SINUSES: At least one, small probable mucous retention cyst is incidentally demonstrated within the right maxillary sinus. BONES/SOFT TISSUES: At least minimal upper cervical degenerative disease is only incidentally demonstrated. Marrow signal otherwise appears physiologic. . IMPRESSION: 1. Limited and incomplete exam, grossly negative for acute process, within the limits of this study. . RECOMMENDATIONS: 1. If the patient can be adequately sedated, repeat MRI of the brain, without and with contrast, could be attempted. . [employer] No Panel InformationOrdered By: Arjun Bahena on 09-25-2020 [employer] XR Chest Portable (1 View)Or dered By: Ayaz Lund on 09-25-2020 No acute process. [employer] EXAMINATION: ONE XRA Y VIEW OF THE CHEST 09/25/2020 2:10 pm COMPARISON: 11/24/2019 HISTORY: r/o aspiration R/o aspiration FINDINGS: The lungs are without acute focal process. There is no effusion or pneumothorax. The cardiomediastinal silhouette is without acute process. The osseous structures are without acute process. [facility] Pb, Rad Results In - 09/25/2020 2:40 PM EDT EXAMINATION: ONE XRAY VIEW OF THE CHEST 09/25/2020 2:10 pm COMPARISON: 11/24/2019 HISTORY: r/o aspiration R/o aspiration FINDINGS: The lungs are without acute focal process. There is no effusion or pneumothorax. The cardiomediastinal silhouette is without acute process. The osseous structures are without acute process. IMPRESSION: No acute process. [facility] Basic metabolic panel aka Ch em 8Ordered By: Arjun Bahena on 09-24-2020 Calcium [Mass/Vol] 9.0 mg/dL 8.4 - 10. 4 mg/dL [facility] Chloride [Moles/Vol] 100 mmol/L 96 - 10 9 mmol/L [facility] CO2 [Moles/Vol] 21 mmol/L Low 22 - 30 mmol/L [facility] Creatinine [Mass/Vol] 0.73 mg/dL 0.66 - 1.25 mg/dL [facility] Glucose [Mass/Vol] 107 mg/dL High 65 - 100 mg/dL [facility] Interpretation and review of laboratory results Abnormal [facility] Potassium [Moles/Vol] 3.5 mmol/L Low 3.6 - 5.1 mmol/L [facility] Sodium [Moles/Vol] 132 mmol/L Low 135 - 147 mmol/L [facility] Urea nitrogen [Mass/Vol] 13 mg/dL 8 - 26 mg/dL [facility] CBC without DifferentialOrde red By: Arjun Bahena on 09-24-2020 Absolute Lymph 0.9 Low [facility] Absolute [place] 1.3 High [facility] Basophils (Bld) [#/Vol] 0.0 10*3/uL [facility] Basophils/100 WBC (Bld) 0.6 % G [facility] Eosinophils (Bld) [#/Vol] 0.4 10*3/uL High [facility] Eosinophils/100 WBC (Bld) 5.2 % [facility] Erythrocyte distribution width (RBC) [Ratio] 15.3 % High 11.5 - 14.5 % [facility] Hematocrit (Bld) [Volume fraction] 38.9 % 37.7 - 51.1 % [facility] Hemoglobin (Bld) [Mass/Vol] 13.2 g/dL 12.8 - 17.7 g/dL [facility] Interpretation and review of laboratory results Abnormal [facility] Lymphocytes/100 WBC (Bld) 12.4 % [facility] Macrocytosis 2+ [facility] MCH (RBC) [Entitic mass] 37.4 pg High 27 - 34.2 pg [facility] MCHC (RBC) [Mass/Vol] 33.9 g/dL 31.4 - 36.2 g/dl [facility] MCV (RBC) [Entitic vol] 110.2 fL High 80.6 - 99 fL [facility] Monocytes/100 WBC (Bld) 18.4 % G [facility] Neutrophils (Bld) [#/Vol] 4.4 10*3/uL [facility] Neutrophils/100 WBC (Bld) 63.4 % [facility] Platelets (Bld) [#/Vol] 182.0 10*3/uL [facility] Plt Estimate NORMAL [facility] RBC (Bld) [#/Vol] 3.53 10*6/uL [facility] WBC LM Ql (Sput) 6.9 [facility] GLOMERULAR FILTRATION RATEOr dered By: Arjun Bahena on 09-24-2020 GFR >60 [facility] Comment on above: To estimate the GFR for Americans, multiply the result provided by 1.21. Population mean GFR = 116 ml/min/1.73 sq.m. for ages 18-29 yrs. The MDRD is validated in individuals 18-70 years of age. It is less accurate in patients with extremes of muscle mass, restriction of dietary protein, ingestion of creatine, extra-renal metabolism of creatinine, or treatment with medications that affect renal tubular creatinine secretion. GFR Categories in Chronic Kidney Disease (CKD) Category: GFR(mL/min/1.73m^2) Interpretation: G1* 90 or greater Normal or high G2* 60-89 Mild decrease G3a 45-59 Mild to moderate decrease G3b 30-44 Moderate to severe decrease G4 15-29 Severe decrease G5 14 or less Kidney failure *G1&G2: In the absence of evidence of kidney damage, neither GFR category G1 nor G2 fulfill the criteria for CKD Kidney Int Suppl.2013;3:1-150 No Panel InformationOrdered By: Arjun Bahena on 09-24-2020 [facility] Basic metabolic panel aka Ch em 8Ordered By: Arjun Bahena on 09-23-2020 Calcium [Mass/Vol] 9.3 mg/dL 8.4 - 10. 4 mg/dL [facility] Chloride [Moles/Vol] 102 mmol/L 96 - 10 9 mmol/L [facility] CO2 [Moles/Vol] 23 mmol/L 22 - 30 mmol/L [facility] Creatinine [Mass/Vol] 0.63 mg/dL Low 0.66 - 1.25 mg/dL [facility] Glucose [Mass/Vol] 104 mg/dL High 65 - 100 mg/dL [facility] Interpretation and review of laboratory results Abnormal [facility] Potassium [Moles/Vol] 4.0 mmol/L 3.6 - 5.1 mmol/L [facility] Sodium [Moles/Vol] 134 mmol/L Low 135 - 147 mmol/L [facility] Urea nitrogen [Mass/Vol] 10 mg/dL 8 - 26 mg/dL [facility] CBC without DifferentialOrde red By: Arjun Bahena on 09-23-2020 Absolute Lymph 0.6 Low [facility] Absolute [place] 1.1 High [facility] Anisocytosis Ql (Bld) [facility]+ [facility] Basophils (Bld) [#/Vol] 0.0 10*3/uL [facility] Basophils/100 WBC (Bld) 0.3 % G enesis [facility] Eosinophils (Bld) [#/Vol] 0.3 10*3/uL [facility] Eosinophils/100 WBC (Bld) 5.5 % [facility] Erythrocyte distribution width (RBC) [Ratio] 15.6 % High 11.5 - 14.5 % [facility] Hematocrit (Bld) [Volume fraction] 40.1 % 37.7 - 51.1 % [facility] Hemoglobin (Bld) [Mass/Vol] 13.7 g/dL 12.8 - 17.7 g/dL [facility] Interpretation and review of laboratory results Abnormal [facility] Lymphocytes/100 WBC (Bld) 10.5 % [facility] Macrocytosis 2+ [facility] MCH (RBC) [Entitic mass] 37.8 pg High 27 - 34.2 pg [facility] MCHC (RBC) [Mass/Vol] 34.2 g/dL 31.4 - 36.2 g/dl [facility] MCV (RBC) [Entitic vol] 110.8 fL High 80.6 - 99 fL [facility] Monocytes/100 WBC (Bld) 18.0 % G [facility] Morphology Jones (Bld) [Interp] SEE BELOW [facility] Comment on above: stomatocytes occ large platelets Neutrophils (Bld) [#/Vol] 3.9 10*3/uL [facility] Neutrophils/100 WBC (Bld) 65.7 % [facility] Platelets (Bld) [#/Vol] 154.0 10*3/uL [facility] Plt Estimate NORMAL [facility] RBC (Bld) [#/Vol] 3.62 10*6/uL [facility] WBC LM Ql (Sput) 6.0 [facility] GLOMERULAR FILTRATION RATEOr dered By: Arjun Bahena on 09-23-2020 GFR >60 [facility] Comment on above: To estimate the GFR for Americans, multiply the result provided by 1.21. Population mean GFR = 116 ml/min/1.73 sq.m. for ages 18-29 yrs. The MDRD is validated in individuals 18-70 years of age. It is less accurate in patients with extremes of muscle mass, restriction of dietary protein, ingestion of creatine, extra-renal metabolism of creatinine, or treatment with medications that affect renal tubular creatinine secretion. GFR Categories in Chronic Kidney Disease (CKD) Category: GFR(mL/min/1.73m^2) Interpretation: G1* 90 or greater Normal or high G2* 60-89 Mild decrease G3a 45-59 Mild to moderate decrease G3b 30-44 Moderate to severe decrease G4 15-29 Severe decrease G5 14 or less Kidney failure *G1&G2: In the absence of evidence of kidney damage, neither GFR category G1 nor G2 fulfill the criteria for CKD Kidney Int Suppl.2013;3:1-150 No Panel InformationOrdered By: Arjun Bahena on 09-23-2020 [facility] Basic metabolic panel aka Ch em 8Ordered By: Arjun Bahena on 09-22-2020 Calcium [Mass/Vol] 9.2 mg/dL 8.4 - 10. 4 mg/dL [facility] Chloride [Moles/Vol] 105 mmol/L 96 - 10 9 mmol/L [facility] CO2 [Moles/Vol] 20 mmol/L Low 22 - 30 mmol/L [facility] Creatinine [Mass/Vol] 0.60 mg/dL Low 0.66 - 1.25 mg/dL [facility] Glucose [Mass/Vol] 117 mg/dL High 65 - 100 mg/dL [facility] Interpretation and review of laboratory results Abnormal [facility] Potassium [Moles/Vol] 4.1 mmol/L 3.6 - 5.1 mmol/L [facility] Sodium [Moles/Vol] 133 mmol/L Low 135 - 147 mmol/L [facility] Urea nitrogen [Mass/Vol] 6 mg/dL Low 8 - 26 mg/dL [facility] CBC without DifferentialOrde red By: Arjun Bahena on 09-22-2020 Absolute Lymph 0.6 Low [facility] Absolute [place] 0.6 [facility] Anisocytosis Ql (Bld) 1+ Gen [facility] Basophils (Bld) [#/Vol] 0.0 10*3/uL [facility] Basophils/100 WBC (Bld) 0.6 % [facility] Eosinophils (Bld) [#/Vol] 0.3 10*3/uL [facility] Eosinophils/100 WBC (Bld) 6.5 % [facility] Erythrocyte distribution width (RBC) [Ratio] 15.9 % High 11.5 - 14.5 % [facility] Hematocrit (Bld) [Volume fraction] 40.0 % 37.7 - 51.1 % [facility] Hemoglobin (Bld) [Mass/Vol] 13.5 g/dL 12.8 - 17.7 g/dL [facility] Interpretation and review of laboratory results Abnormal [facility] Lymphocytes/100 WBC (Bld) 12.2 % [facility] Macrocytosis 2+ [facility] MCH (RBC) [Entitic mass] 37.5 pg High 27 - 34.2 pg [facility] MCHC (RBC) [Mass/Vol] 33.8 g/dL 31.4 - 36.2 g/dl [facility] MCV (RBC) [Entitic vol] 111.1 fL High 80.6 - 99 fL [facility] Monocytes/100 WBC (Bld) 12.5 % [facility] Neutrophils (Bld) [#/Vol] 3.5 10*3/uL [facility] Neutrophils/100 WBC (Bld) 68.2 % [facility] Platelets (Bld) [#/Vol] 111.0 10*3/uL Low [facility] Plt Estimate DECREASED [facility] RBC (Bld) [#/Vol] 3.60 10*6/uL Low [facility] WBC LM Ql (Sput) 5.1 [facility] EthanolOrdered By: Samreen Jacobson on 09-22-2020 Ethanol Ql (U) <10 NOT DETECTED mg/dL [facility] GLOMERULAR FILTRATION RATEOr dered By: Arjun Bahena on 09-22-2020 GFR >60 [facility] Comment on above: To estimate the GFR for Americans, multiply the result provided by 1.21. Population mean GFR = 116 ml/min/1.73 sq.m. for ages 18-29 yrs. The MDRD is validated in individuals 18-70 years of age. It is less accurate in patients with extremes of muscle mass, restriction of dietary protein, ingestion of creatine, extra-renal metabolism of creatinine, or treatment with medications that affect renal tubular creatinine secretion. GFR Categories in Chronic Kidney Disease (CKD) Category: GFR(mL/min/1.73m^2) Interpretation: G1* 90 or greater Normal or high G2* 60-89 Mild decrease G3a 45-59 Mild to moderate decrease G3b 30-44 Moderate to severe decrease G4 15-29 Severe decrease G5 14 or less Kidney failure *G1&G2: In the absence of evidence of kidney damage, neither GFR category G1 nor G2 fulfill the criteria for CKD Kidney Int Suppl.2013;3:1-150 MagnesiumOrdered By: Arjun Bahena on 09-22-2020 Magnesium [Mass/Vol] 1.9 mg/dL 1.6 - 2 .3 mg/dL [facility] [facility] No Panel InformationOrdered By: Arjun Bahena on 09-22-2020 [facility] US Gallbladder and LiverOrde red By: Samreen Jacobson on 09-22-2020 Diffuse fatty infiltration of the liver. Otherwise negative [facility] EXAMINATION: RIGHT UPPER QUADRANT ULTRASOUND 09/22/2020 9:14 am COMPARISON: None. HISTORY: Transaminitis, alcohol abuse Diagnosis: Transaminitis, alcohol abuse FINDINGS: LIVER: The liver demonstrates increased echogenicity without evidence of intrahepatic biliary ductal dilatation. BILIARY SYSTEM: Gallbladder is unremarkable without evidence of pericholecystic fluid, wall thickening or stones. Negative sonographic Oneil's sign. Common bile duct is 4.1 mm. RIGHT KIDNEY: The right kidney is grossly unremarkable without evidence of hydronephrosis. PANCREAS: Visualized portions of the pancreas are unremarkable. OTHER: No evidence of right upper quadrant ascites. [facility] Pb, Rad Results In - 09/22/2020 9:36 AM EDT EXAMINATION: RIGHT UPPER QUADRANT ULTRASOUND 09/22/2020 9:14 am COMPARISON: None. HISTORY: Transaminitis, alcohol abuse Diagnosis: Transaminitis, alcohol abuse FINDINGS: LIVER: The liver demonstrates increased echogenicity without evidence of intrahepatic biliary ductal dilatation. BILIARY SYSTEM: Gallbladder is unremarkable without evidence of pericholecystic fluid, wall thickening or stones. Negative sonographic Oneil's sign. Common bile duct is 4.1 mm. RIGHT KIDNEY: The right kidney is grossly unremarkable without evidence of hydronephrosis. PANCREAS: Visualized portions of the pancreas are unremarkable. OTHER: No evidence of right upper quadrant ascites. IMPRESSION: Diffuse fatty infiltration of the liver. Otherwise negative [employer] [facility] BNPOrdered By: Nina marquis 09-21-2020 Natriuretic peptide.B prohormone N-Terminal [Mass/Vol] 172 pg/mL 0 - 450 pg/mL [facility] Comment on above: An NT-pro-BNP <300 p g/ml effectively rules out acute congestive heart failure with a 99% negative predictive value. . [facility] CBC without DifferentialOrde red By: Arjun Bahena on 09-21-2020 Absolute Lymph 0.8 Low [facility] Absolute [place] 0.6 [facility] Basophils (Bld) [#/Vol] 0.0 10*3/uL [facility] Basophils/100 WBC (Bld) 0.5 % [facility] Eosinophils (Bld) [#/Vol] 0.2 10*3/uL [facility] Eosinophils/100 WBC (Bld) 3.5 % [facility] Erythrocyte distribution width (RBC) [Ratio] 16.3 % High 11.5 - 14.5 % [facility] Hematocrit (Bld) [Volume fraction] 37.3 % Low 37.7 - 51.1 % [facility] Hemoglobin (Bld) [Mass/Vol] 12.6 g/dL Low 12.8 - 17.7 g/dL [facility] Interpretation and review of laboratory results Abnormal [facility] Lymphocytes/100 WBC (Bld) 14.6 % [facility] MCH (RBC) [Entitic mass] 37.0 pg High 27 - 34.2 pg [facility] MCHC (RBC) [Mass/Vol] 33.8 g/dL 31.4 - 36.2 g/dl [facility] MCV (RBC) [Entitic vol] 109.4 fL High 80.6 - 99 fL [facility] Monocytes/100 WBC (Bld) 10.7 % [facility] Neutrophils (Bld) [#/Vol] 4.0 10*3/uL [facility] Neutrophils/100 WBC (Bld) 70.7 % [facility] Platelets (Bld) [#/Vol] 94.0 10*3/uL Low [facility] RBC (Bld) [#/Vol] 3.41 10*6/uL Low [facility] WBC LM Ql (Sput) 5.7 [facility] Comprehensive metabolic pane l aka MetaboOrdered By: Nina Peace on 09-21-2020 Albumin [Mass/Vol] 3.9 g/dL 3.5 - 5 g/dL [facility] Alk Phos 115 U/L 24 - 126 U/L [facility] ALT [Catalytic activity/Vol] 25 U/L 4 - 50 U/L [facility] AST [Catalytic activity/Vol] 97 U/L High 3 - 55 U/L [facility] Bilirubin [Mass/Vol] 1.4 mg/dL 0.2 - 1 .6 mg/dL [facility] Calcium [Mass/Vol] 8.5 mg/dL 8.4 - 10. 4 mg/dL [facility] Chloride [Moles/Vol] 102 mmol/L 96 - 10 9 mmol/L [facility] CO2 [Moles/Vol] 22 mmol/L 22 - 30 mmol/L [facility] Creatinine [Mass/Vol] 0.56 mg/dL Low 0.66 - 1.25 mg/dL [facility] Glucose [Mass/Vol] 92 mg/dL 65 - 100 mg/dL [facility] Interpretation and review of laboratory results Abnormal [facility] Potassium [Moles/Vol] 2.9 mmol/L Critically low 3.6 - 5.1 mmol/L [facility] Protein [Mass/Vol] 7.4 g/dL 6.3 - 8.2 g/dL [facility] Sodium [Moles/Vol] 132 mmol/L Low 135 - 147 mmol/L [facility] Urea nitrogen [Mass/Vol] 5 mg/dL Low 8 - 26 mg/dL [facility] GLOMERULAR FILTRATION RATEOr dered By: Arjun Bahena on 09-21-2020 GFR >60 [facility] Comment on above: To estimate the GFR for Americans, multiply the result provided by 1.21. Population mean GFR = 116 ml/min/1.73 sq.m. for ages 18-29 yrs. The MDRD is validated in individuals 18-70 years of age. It is less accurate in patients with extremes of muscle mass, restriction of dietary protein, ingestion of creatine, extra-renal metabolism of creatinine, or treatment with medications that affect renal tubular creatinine secretion. GFR Categories in Chronic Kidney Disease (CKD) Category: GFR(mL/min/1.73m^2) Interpretation: G1* 90 or greater Normal or high G2* 60-89 Mild decrease G3a 45-59 Mild to moderate decrease G3b 30-44 Moderate to severe decrease G4 15-29 Severe decrease G5 14 or less Kidney failure *G1&G2: In the absence of evidence of kidney damage, neither GFR category G1 nor G2 fulfill the criteria for CKD Kidney Int Suppl.2013;3:1-150 HbA1c (Bld) [Mass fraction]O rdered By: Nina Peace on 09-21-2020 [facility] Hemoglobin [id number] By: Ned Peace on 09-21-2020 HbA1c (Bld) [Mass fraction] 4.6 % 0 - 6 % [facility] Comment on above: Reference Interval f or %A1c %A1c (NGSP) Interpretation <6.0% Non-Diabetic Range >6.5% Action Suggested . LipaseOrdered By: Nina peacock on 09-21-2020 Lipase [Catalytic activity/Vol] 214 U/L 23 - 300 U/L [facility] MagnesiumOrdered By: Arjun Leon on 09-21-2020 Magnesium [Mass/Vol] 2.1 mg/dL 1.6 - 2 .3 mg/dL [facility] No Panel InformationOrdered By: Arjun Leon on 09-21-2020 [facility] PHOSPHORUSOrdered By: Nina Peace on 09-21-2020 Phosphate [Mass/Vol] 2.8 mg/dL 2.5 - 4 .5 mg/dL [facility] Protime-INROrdered By: Nina Peace on 09-21-2020 INR Coag (PPP) [Relative time] 0.94 {INR} [facility] PT Coag (PPP) [Time] 9.9 s Gene [facility] AmmoniaOrdered By: Arjun padilla on 09-20-2020 Ammonia (P) [Moles/Vol] 17 umol/L 9 - 30 umol/ L [facility] Basic metabolic panel aka Ch em 8Ordered By: Arjun Bahena on 09-20-2020 Calcium [Mass/Vol] 8.2 mg/dL Low 8.4 - 10. 4 mg/dL [facility] Chloride [Moles/Vol] 105 mmol/L 96 - 10 9 mmol/L [facility] CO2 [Moles/Vol] 23 mmol/L 22 - 30 mmol/L [facility] Creatinine [Mass/Vol] 0.46 mg/dL Low 0.66 - 1.25 mg/dL [facility] Glucose [Mass/Vol] 87 mg/dL 65 - 100 mg/dL [facility] Interpretation and review of laboratory results Abnormal [facility] Potassium [Moles/Vol] 2.9 mmol/L Critically low 3.6 - 5.1 mmol/L [facility] Sodium [Moles/Vol] 135 mmol/L 135 - 147 mmol/L [facility] Urea nitrogen [Mass/Vol] 6 mg/dL Low 8 - 26 mg/dL [facility] CBC without DifferentialOrde red By: Arjun Bahena on 09-20-2020 Absolute Lymph 0.8 Low [facility] Absolute [place] 0.7 High [facility] Basophils (Bld) [#/Vol] 0.0 10*3/uL [facility] Basophils/100 WBC (Bld) 0.3 % [facility] Eosinophils (Bld) [#/Vol] 0.1 10*3/uL [facility] Eosinophils/100 WBC (Bld) 0.9 % [facility] Erythrocyte distribution width (RBC) [Ratio] 16.7 % High 11.5 - 14.5 % [facility] Hematocrit (Bld) [Volume fraction] 34.5 % Low 37.7 - 51.1 % [facility] Hemoglobin (Bld) [Mass/Vol] 11.8 g/dL Low 12.8 - 17.7 g/dL [facility] Interpretation and review of laboratory results Abnormal [facility] Lymphocytes/100 WBC (Bld) 13.5 % [facility] MCH (RBC) [Entitic mass] 37.0 pg High 27 - 34.2 pg [facility] MCHC (RBC) [Mass/Vol] 34.2 g/dL 31.4 - 36.2 g/dl [facility] MCV (RBC) [Entitic vol] 108.2 fL High 80.6 - 99 fL [facility] Monocytes/100 WBC (Bld) 11.3 % [facility] Neutrophils (Bld) [#/Vol] 4.3 10*3/uL [facility] Neutrophils/100 WBC (Bld) 74.0 % [facility] Platelets (Bld) [#/Vol] 98.0 10*3/uL Low [facility] RBC (Bld) [#/Vol] 3.19 10*6/uL Low [facility] WBC LM Ql (Sput) 5.9 [facility] EKG 12-LEADOrdered By: Kevon Guadarrama on 09-20-2020 Stationary ECG Study Test Date: 2020-09-19 Pat Name: YONATHAN FERNANDEZ Department: Room: Gender: Male Consulting Analyst: Isabelle : 1975 Requested By: Order Number: Reading MD: Kevon Guadarrama Measurements Intervals [place] Rate: 90 P: 24 HI: 148 QRS: 62 QRSD: 83 T: 35 QT: 356 QTc: 436 Interpretive Statements SINUS RHYTHM Electronically Signed On 09-20-2020 6:55:45 EDT by Kevon Guadarrama [employer] GLOMERULAR FILTRATION RATEOr dered By: Arjun Bahena on 09-20-2020 GFR >60 [facility] [employer] Comment on above: To estimate the GFR for Americans, multiply the result provided by 1.21. Population mean GFR = 116 ml/min/1.73 sq.m. for ages 18-29 yrs. The MDRD is validated in individuals 18-70 years of age. It is less accurate in patients with extremes of muscle mass, restriction of dietary protein, ingestion of creatine, extra-renal metabolism of creatinine, or treatment with medications that affect renal tubular creatinine secretion. GFR Categories in Chronic Kidney Disease (CKD) Category: GFR(mL/min/1.73m^2) Interpretation: G1* 90 or greater Normal or high G2* 60-89 Mild decrease G3a 45-59 Mild to moderate decrease G3b 30-44 Moderate to severe decrease G4 15-29 Severe decrease G5 14 or less Kidney failure *G1&G2: In the absence of evidence of kidney damage, neither GFR category G1 nor G2 fulfill the criteria for CKD Kidney Int Suppl.2013;3:1-150 LactateOrdered By: Arjun jones on 09-20-2020 Lactate [Moles/Vol] 1.0 mmol/L 0.7 - 2 mmol/L [employer] MagnesiumOrdered By: Arjun Bahena on 09-20-2020 Magnesium [Mass/Vol] 1.6 mg/dL 1.6 - 2 .3 mg/dL [facility] No Panel InformationOrdered By: Arjun Bahena on 09-20-2020 [facility] Repeat Lactate in 5 hoursOrd ered By: Arjun Bahena on 09-20-2020 Lactate [Moles/Vol] 1.1 mmol/L 0.7 - 2 mmol/L [facility] Thyroid CascadeOrdered By: Peggy Bahena on 09-20-2020 TSH [place] 2.390 [facility] Toxicology screen, urineOrde red By: Arjun Bahena on 09-20-2020 Amphetamines Screen method >1000 ng/mL Ql (U) Not detected CUTOFF <1000 ng/mL [facility] Barbiturates Screen method >200 ng/mL Ql (U) Positive Abnormal CUTOFF <200 ng/mL [facility] Benzodiazepines Ql (U) Not detected CUTOF F <200 ng/mL [facility] Benzoylecgonine Screen (U) [Mass/Vol] Not detected CUTOFF <300 ng/mL [facility] Cannabinoids Screen method >50 ng/mL Ql (U) Not detected CUTOFF <50 ng/mL [facility] Fentanyl Not detected CUTOFF 1.0 ng/mL [facility] Interpretation and review of laboratory results Abnormal [facility] Opiates Screen (U) [Mass/Vol] Not detected CUTOFF <300 ng/mL [facility] Phencyclidine (U) [Mass/Vol] Not detected CUTOFF <25 ng/mL [facility] Tox Message see below [facility] Comment on above: Notes: 1. SCREENING RESULTS SHOULD BE CONSIDERED PRESUMPTIVE UNLESS THE PRESENCE OF THE ANALYTE HAS BEEN CONFIRMED BY A REFERENCE LAB. 2. ALL DRUG GROUPS ARE ANALYZED ON URINE. [facility] Vitamin [id number] By: Mikael Bahena on 09-20-2020 Cobalamin (Vitamin B12) [Mass/Vol] 910 pg/mL 239 - 931 pg/mL [facility] Vitamin D 25 hydroxyOrdered By: Arjun Bahena on 09-20-2020 25-hydroxyvitamin D [Mass/Vol] <12.8 ng/mL [facility] Comment on above: Reference Range: Deficiency: <20 ng/mL Insufficiency: 21-29 ng/mL Optimal Level: >=30 ng/mL Possible Toxicity: >80 ng/mL - 80 ng/mL is the lowest reported level associated with toxicity in patients without primary hyperthyroidism who have normal renal function. [facility] AmmoniaOrdered By: Kevon knight on 09-19-2020 Ammonia (P) [Moles/Vol] 37 umol/L High 9 - 30 umol/ L [facility] Interpretation and review of laboratory results Abnormal [facility] CBC with DifferentialOrdered By: Kevon Guadarrama on 09-19-2020 Absolute Lymph 0.6 Low [facility] Absolute [place] 0.8 High [facility] Basophils (Bld) [#/Vol] 0.0 10*3/uL [facility] Basophils/100 WBC (Bld) 0.3 % [facility] Eosinophils (Bld) [#/Vol] 0.1 10*3/uL [facility] Eosinophils/100 WBC (Bld) 0.6 % [facility] Erythrocyte distribution width (RBC) [Ratio] 16.7 % High 11.5 - 14.5 % [facility] Hematocrit (Bld) [Volume fraction] 41.4 % 37.7 - 51.1 % [facility] Hemoglobin (Bld) [Mass/Vol] 14.4 g/dL 12.8 - 17.7 g/dL [facility] Interpretation and review of laboratory results Abnormal [facility] Lymphocytes/100 WBC (Bld) 7.4 % [facility] MCH (RBC) [Entitic mass] 37.4 pg High 27 - 34.2 pg [facility] MCHC (RBC) [Mass/Vol] 34.8 g/dL 31.4 - 36.2 g/dl [facility] MCV (RBC) [Entitic vol] 107.5 fL High 80.6 - 99 fL [facility] Monocytes/100 WBC (Bld) 9.4 % [facility] Neutrophils (Bld) [#/Vol] 7.1 10*3/uL High [facility] Neutrophils/100 WBC (Bld) 82.3 % [facility] Platelets (Bld) [#/Vol] 111.0 10*3/uL Low [facility] RBC (Bld) [#/Vol] 3.85 10*6/uL [facility] WBC LM Ql (Sput) 8.6 [facility] CT Head limited WO contrastO rdered By: Kevon Guadarrama on 09-19-2020 No acute intracrania l abnormality. Chronic findings as described. [facility] EXAMINATION: CT OF THE HEAD WITHOUT CONTRAST 09/19/2020 10:28 pm TECHNIQUE: CT of the head was performed without the administration of intravenous contrast. Dose modulation, iterative reconstruction, and/or weight based adjustment of the mA/kV was utilized to reduce the radiation dose to as low as reasonably achievable. COMPARISON: None. HISTORY: Mental status change, unknown cause Altered mental status, per mother seizure like activity. FINDINGS: BRAIN/VENTRICLES: There is no acute intracranial hemorrhage, mass effect or midline shift. No abnormal extra-axial fluid collection. The bartlett-white differentiation is maintained without evidence of an acute infarct. There is no evidence of hydrocephalus. There is senescent cerebral and cerebellar atrophy. 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 Focal hypodensities involving the more inferoposterior left basal ganglia could variably represent Virchow Lance spaces or additional tiny remote lacunar infarcts. ORBITS: The visualized portion of the orbits demonstrate no acute abnormality. SINUSES: The visualized paranasal sinuses and mastoid air cells demonstrate no acute abnormality. SOFT TISSUES/SKULL: No acute abnormality of the visualized skull or soft tissues. [facility] Pb, Rad Results In - 09/19/2020 11:03 PM EDT EXAMINATION: CT OF THE HEAD WITHOUT CONTRAST 09/19/2020 10:28 pm TECHNIQUE: CT of the head was performed without the administration of intravenous contrast. Dose modulation, iterative reconstruction, and/or weight based adjustment of the mA/kV was utilized to reduce the radiation dose to as low as reasonably achievable. COMPARISON: None. HISTORY: Mental status change, unknown cause Altered mental status, per mother seizure like activity. FINDINGS: BRAIN/VENTRICLES: There is no acute intracranial hemorrhage, mass effect or midline shift. No abnormal extra-axial fluid collection. The bartlett-white differentiation is maintained without evidence of an acute infarct. There is no evidence of hydrocephalus. There is senescent cerebral and cerebellar atrophy. 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 Focal hypodensities involving the more inferoposterior left basal ganglia could variably represent Virchow Lance spaces or additional tiny remote lacunar infarcts. ORBITS: The visualized portion of the orbits demonstrate no acute abnormality. SINUSES: The visualized paranasal sinuses and mastoid air cells demonstrate no acute abnormality. SOFT TISSUES/SKULL: No acute abnormality of the visualized skull or soft tissues. IMPRESSION: No acute intracranial abnormality. Chronic findings as described. [facility] Comprehensive metabolic pane l aka MetaboOrdered By: Kevon Guadarrama on 09-19-2020 Albumin [Mass/Vol] 4.7 g/dL 3.5 - 5 g/dL [facility] Alk Phos 133 U/L High 24 - 126 U/L [facility] ALT [Catalytic activity/Vol] 35 U/L 4 - 50 U/L [facility] AST [Catalytic activity/Vol] 75 U/L High 3 - 55 U/L [facility] Bilirubin [Mass/Vol] 1.3 mg/dL 0.2 - 1 .6 mg/dL [facility] Calcium [Mass/Vol] 9.4 mg/dL 8.4 - 10. 4 mg/dL [facility] Chloride [Moles/Vol] 96 mmol/L 96 - 10 9 mmol/L [facility] CO2 [Moles/Vol] 19 mmol/L Low 22 - 30 mmol/L [facility] Creatinine [Mass/Vol] 0.58 mg/dL Low 0.66 - 1.25 mg/dL [facility] Glucose [Mass/Vol] 144 mg/dL High 65 - 100 mg/dL [facility] Interpretation and review of laboratory results Abnormal [facility] Potassium [Moles/Vol] 3.0 mmol/L Low 3.6 - 5.1 mmol/L [facility] Protein [Mass/Vol] 9.1 g/dL High 6.3 - 8.2 g/dL [facility] Sodium [Moles/Vol] 131 mmol/L Low 135 - 147 mmol/L [facility] Urea nitrogen [Mass/Vol] 9 mg/dL 8 - 26 mg/dL [facility] EthanolOrdered By: Kevon knight on 09-19-2020 Ethanol Ql (U) <10 NOT DETECTED mg/dL [facility] GLOMERULAR FILTRATION RATEOr dered By: Kevon Guadarrama on 09-19-2020 GFR >60 [facility] Comment on above: To estimate the GFR for Americans, multiply the result provided by 1.21. Population mean GFR = 116 ml/min/1.73 sq.m. for ages 18-29 yrs. The MDRD is validated in individuals 18-70 years of age. It is less accurate in patients with extremes of muscle mass, restriction of dietary protein, ingestion of creatine, extra-renal metabolism of creatinine, or treatment with medications that affect renal tubular creatinine secretion. GFR Categories in Chronic Kidney Disease (CKD) Category: GFR(mL/min/1.73m^2) Interpretation: G1* 90 or greater Normal or high G2* 60-89 Mild decrease G3a 45-59 Mild to moderate decrease G3b 30-44 Moderate to severe decrease G4 15-29 Severe decrease G5 14 or less Kidney failure *G1&G2: In the absence of evidence of kidney damage, neither GFR category G1 nor G2 fulfill the criteria for CKD Kidney Int Suppl.2013;3:1-150 No Panel InformationOrdered By: Kevon Guadarrama on 09-19-2020 [employer] POCT glucoseOrdered By: Dneis Guadarrama on 09-19-2020 Glucose [Mass/Vol] 153 mg/dL High 65 - 100 mg/dL [facility] Interpretation and review of laboratory results Abnormal [employer] POCT glucoseon 04-30-2020 Glucose [Mass/Vol] 277 mg/dL High 65 - 100 mg/dL [facility] Interpretation and review of laboratory results Abnormal [facility] EKG 12-LEADon 04-27-2020 Stationary ECG Study Test Date: 2020-04-27 Pat Name: YONATHAN FERNANDEZ Department: Room: 4134 Gender: Male Consulting Analyst: Sam Rincon : 1975 Requested By: Order Number: Reading MD: Gonzalez Baptiste Measurements Intervals [place] Rate: 68 P: 31 HI: 172 QRS: 68 QRSD: 89 T: 57 QT: 412 QTc: 438 Interpretive Statements SINUS RHYTHM EARLY REPOLARIZATION Electronically Signed On 04-27-2020 16:14:12 EST by Gonzalez Baptiste [facility] CBC with Differentialon 03-31 Absolute [place] 0.5 [facility] Basophils (Bld) [#/Vol] 0.0 10*3/uL [employer] Basophils/100 WBC (Bld) 0.3 % [facility] Eosinophils (Bld) [#/Vol] 0.5 10*3/uL High [facility] Eosinophils/100 WBC (Bld) 6.3 % [facility] Erythrocyte distribution width (RBC) [Ratio] 13.6 % 11.5 - 14.5 % [facility] Hematocrit (Bld) [Volume fraction] 44.6 % 37.7 - 51.1 % [facility] Hemoglobin (Bld) [Mass/Vol] 15.3 g/dL 12.8 - 17.7 g/dL [facility] Interpretation and review of laboratory results Abnormal [facility] Lymphocytes (Bld) [#/Vol] 1.6 10*3/uL [facility] Lymphocytes/100 WBC (Bld) 20.6 % [facility] MCH (RBC) [Entitic mass] 35.8 pg High 27 - 34.2 pg [facility] MCHC (RBC) [Mass/Vol] 34.3 g/dL 31.4 - 36.2 g/dl [facility] MCV (RBC) [Entitic vol] 104.4 fL High 80.6 - 99 fL [facility] Monocytes/100 WBC (Bld) 6.7 % [facility] Neutrophils (Bld) [#/Vol] 5.3 10*3/uL [facility] Neutrophils/100 WBC (Bld) 66.1 % [facility] Platelets (Bld) [#/Vol] 179.0 10*3/uL [facility] RBC (Bld) [#/Vol] 4.27 10*6/uL [facility] WBC LM Ql (Sput) 8.0 [facility] Comprehensive metabolic pane l aka [employer] 04-26-2020 Albumin [Mass/Vol] 4.6 g/dL 3.5 - 5 g/dL [facility] Alk Phos 73 U/L 24 - 126 U/L [facility] ALT [Catalytic activity/Vol] 24 U/L 4 - 50 U/L [facility] AST [Catalytic activity/Vol] 39 U/L 3 - 55 U/L [facility] Bilirubin [Mass/Vol] 0.4 mg/dL 0.2 - 1 .6 mg/dL [facility] Calcium [Mass/Vol] 10.0 mg/dL 8.4 - 10. 4 mg/dL [facility] Chloride [Moles/Vol] 103 mmol/L 96 - 10 9 mmol/L [facility] CO2 [Moles/Vol] 23 mmol/L 22 - 30 mmol/L [facility] Comprehensive metabolic 2000 panel 0.64 mg/dL Low 0.66 - 1.25 mg/dL [facility] Glucose [Mass/Vol] 107 mg/dL High 65 - 100 mg/dL [facility] Interpretation and review of laboratory results Abnormal [facility] Potassium [Moles/Vol] 4.0 mmol/L 3.6 - 5.1 mmol/L [facility] Protein [Mass/Vol] 8.2 g/dL 6.3 - 8.2 g/dL [facility] Sodium [Moles/Vol] 137 mmol/L 135 - 147 mmol/L [facility] Urea nitrogen [Mass/Vol] 13 mg/dL 8 - 26 mg/dL [facility] Ethanolon 04-26-2020 Ethanol Ql (U) <10 NOT DETECTED mg/dL [facility] GLOMERULAR FILTRATION RATEon 04-26-2020 GFR/1.73 sq M.predicted MDRD (S/P/Bld) [Vol rate/Area] mL/min/{1.73_m2} [facility] Comment on above: To estimate the GFR for Americans, multiply the result provided by 1.21. Population mean GFR = 116 ml/min/1.73 sq.m. for ages 18-29 yrs. The MDRD is validated in individuals 18-70 years of age. It is less accurate in patients with extremes of muscle mass, restriction of dietary protein, ingestion of creatine, extra-renal metabolism of creatinine, or treatment with medications that affect renal tubular creatinine secretion. GFR Categories in Chronic Kidney Disease (CKD) Category: GFR(mL/min/1.73m^2) Interpretation: G1* 90 or greater Normal or high G2* 60-89 Mild decrease G3a 45-59 Mild to moderate decrease G3b 30-44 Moderate to severe decrease G4 15-29 Severe decrease G5 14 or less Kidney failure *G1&G2: In the absence of evidence of kidney damage, neither GFR category G1 nor G2 fulfill the criteria for CKD Kidney Int Suppl.2013;3:1-150 Toxicology screen, urineon 1 06-26-2019 Amphetamines Screen method >1000 ng/mL Ql (U) NOT DETECTED CUTOFF <1000 ng/mL [facility] Barbiturates Screen method >200 ng/mL Ql (U) NOT DETECTED CUTOFF <200 ng/mL [facility] Benzodiazepines Ql (U) NOT DETECTED CUTOF F <200 ng/mL [facility] Benzoylecgonine Screen (U) [Mass/Vol] NOT DETECTED CUTOFF <300 ng/mL [facility] Cannabinoids Screen method >50 ng/mL Ql (U) NOT DETECTED CUTOFF <50 ng/mL [facility] Fentanyl NOT DETECTED CUTOFF 1.0 ng/mL [facility] Opiates Screen (U) [Mass/Vol] NOT DETECTED CUTOFF <300 ng/mL [facility] Phencyclidine (U) [Mass/Vol] NOT DETECTED CUTOFF <25 ng/mL [facility] Tox Message see below [facility] Comment on above: Notes: 1. SCREENING RESULTS SHOULD BE CONSIDERED PRESUMPTIVE UNLESS THE PRESENCE OF THE ANALYTE HAS BEEN CONFIRMED BY A REFERENCE LAB. 2. ALL DRUG GROUPS ARE ANALYZED ON URINE. Urinalysis with reflex cultu reon 04-26-2020 Appearance (U) Clear [facility] Bacteria identified Aer cx Nom (Unsp spec) NOT INDICATED [facility] Bilirubin Ql (U) Negative Negative [facility] Color (CSF) Yellow [facility] Glucose Ql (U) Negative Negative mg/dL [facility] Hemoglobin Ql (U) 1 [facility] Ketones Ql (U) Negative Negative mg/dL [facility] Leukoesterase Negative Negative [facility] Nitrite Ql (U) Negative Negative [facility] Occult Bld Negative Negative [facility] pH (U) 6.0 [pH] [facility] Protein (U) [Mass/Vol] Negative Negat charlie mg/dL [facility] Specific gravity (U) [Rel density] 1.008 [facility] Squamous Epi Cells 2 /LPF [facility] Urine Source Clean Catch [facility] Urobilinogen Qn (U) Negative <2.0 mg/dL [facility] WBC (U) [#/Vol] 1 /uL [facility] Basic metabolic panel aka Ch em 8on 11-14-2019 Calcium [Mass/Vol] 9.0 mg/dL 8.4 - 10. 4 mg/dL [facility] Chloride [Moles/Vol] 102 mmol/L 96 - 10 9 mmol/L [facility] CO2 [Moles/Vol] 20 mmol/L Low 22 - 30 mmol/L [facility] Comprehensive metabolic 2000 panel 0.64 mg/dL Low 0.66 - 1.25 mg/dL [facility] Glucose [Mass/Vol] 77 mg/dL 65 - 100 mg/dL [facility] Potassium [Moles/Vol] 4.1 mmol/L 3.6 - 5.1 mmol/L [facility] Sodium [Moles/Vol] 140 mmol/L 135 - 147 mmol/L [facility] Urea nitrogen [Mass/Vol] 9 mg/dL 8 - 26 mg/dL [facility] CBC with Differentialon 10-28 Absolute [place] 0.4 [facility] Basophils (Bld) [#/Vol] 0.1 10*3/uL [facility] Basophils/100 WBC (Bld) 1.1 % [facility] Eosinophils (Bld) [#/Vol] 0.4 10*3/uL High [facility] Eosinophils/100 WBC (Bld) 7.0 % [facility] Erythrocyte distribution width (RBC) [Ratio] 15.2 % High 11.5 - 14.5 % [facility] Hematocrit (Bld) [Volume fraction] 50.9 % 37.7 - 51.1 % [facility] Hemoglobin (Bld) [Mass/Vol] 17.8 g/dL High 12.8 - 17.7 g/dL [facility] Interpretation and review of laboratory results Abnormal [facility] Lymphocytes (Bld) [#/Vol] 1.8 10*3/uL [facility] Lymphocytes/100 WBC (Bld) 29.9 % [facility] MCH (RBC) [Entitic mass] 35.5 pg High 27 - 34.2 pg [facility] MCHC (RBC) [Mass/Vol] 35.0 g/dL 31.4 - 36.2 g/dl [facility] MCV (RBC) [Entitic vol] 101.6 fL High 80.6 - 99 fL [facility] Monocytes/100 WBC (Bld) 6.0 % [facility] Neutrophils (Bld) [#/Vol] 3.5 10*3/uL [facility] Neutrophils/100 WBC (Bld) 56.0 % [facility] Platelets (Bld) [#/Vol] 253.0 10*3/uL [facility] RBC (Bld) [#/Vol] 5.01 10*6/uL [facility] WBC LM Ql (Sput) 6.2 [facility] Ethanolon 11-14-2019 Ethanol Ql (U) 214 mg/dL High NOT DETECTED [facility] GLOMERULAR FILTRATION RATEon 11-14-2019 GFR/1.73 sq M.predicted MDRD (S/P/Bld) [Vol rate/Area] mL/min/{1.73_m2} [facility] Comment on above: To estimate the GFR for Americans, multiply the result provided by 1.21. Population mean GFR = 116 ml/min/1.73 sq.m. for ages 18-29 yrs. The MDRD is validated in individuals 18-70 years of age. It is less accurate in patients with extremes of muscle mass, restriction of dietary protein, ingestion of creatine, extra-renal metabolism of creatinine, or treatment with medications that affect renal tubular creatinine secretion. GFR Categories in Chronic Kidney Disease (CKD) Category: GFR(mL/min/1.73m^2) Interpretation: G1* 90 or greater Normal or high G2* 60-89 Mild decrease G3a 45-59 Mild to moderate decrease G3b 30-44 Moderate to severe decrease G4 15-29 Severe decrease G5 14 or less Kidney failure *G1&G2: In the absence of evidence of kidney damage, neither GFR category G1 nor G2 fulfill the criteria for CKD Kidney Int Suppl.2013;3:1-150 Otheron 11-14-2019 Interpretation and review of laboratory results Abnormal [facility] Troponin Ion 11-14-2019 Troponin I.cardiac [Mass/Vol] ng/mL 0 - 0.033 ng/mL [facility] Comment on above: NEGATIVE; No detectable troponin-I. Troponin I.cardiac [Mass/Vol] ng/mL 0 - 0.033 ng/mL [facility] Comment on above: NEGATIVE; No detectable troponin-I. XR Chest Portable (1 View)on 11-14-2019 Pb, Rad Results In - 11/14/2019 6:53 AM EDT EXAMINATION: ONE XRAY VIEW OF THE CHEST 11/14/2019 6:28 am COMPARISON: 08/14/2019 HISTORY: chest pain -c/o midsternal chest pain since 299. Hx of stent placement in april FINDINGS: The lungs are without acute focal process. There is no effusion or pneumothorax. The cardiomediastinal silhouette is without acute process. The osseous structures are without acute process. IMPRESSION: No acute process. [facility] EXAMINATION: ONE XRA Y VIEW OF THE CHEST 11/14/2019 6:28 am COMPARISON: 08/14/2019 HISTORY: chest pain -c/o midsternal chest pain since 299. Hx of stent placement in april FINDINGS: The lungs are without acute focal process. There is no effusion or pneumothorax. The cardiomediastinal silhouette is without acute process. The osseous structures are without acute process. [facility] No acute process. [facility] Ethanolon 08-14-2019 Ethanol Ql (U) 257 mg/dL High NOT DETECTED [facility] Interpretation and review of laboratory results Abnormal [facility] Troponin Ion 08-14-2019 Troponin I.cardiac [Mass/Vol] ng/mL 0 - 0.033 ng/mL [facility] Comment on above: NEGATIVE; No detectable troponin-I. Basic metabolic panel aka Ch em 8on 08-13-2019 Calcium [Mass/Vol] 8.8 mg/dL 8.4 - 10. 4 mg/dL [facility] Chloride [Moles/Vol] 109 mmol/L 96 - 10 9 mmol/L [facility] CO2 [Moles/Vol] 22 mmol/L 22 - 30 mmol/L [facility] Comprehensive metabolic 2000 panel 0.69 mg/dL 0.66 - 1.25 mg/dL [facility] Glucose [Mass/Vol] 96 mg/dL 65 - 100 mg/dL [facility] Interpretation and review of laboratory results Abnormal [facility] Potassium [Moles/Vol] 3.3 mmol/L Low 3.6 - 5.1 mmol/L [facility] Sodium [Moles/Vol] 143 mmol/L 135 - 147 mmol/L [facility] Urea nitrogen [Mass/Vol] 11 mg/dL 8 - 26 mg/dL [facility] CBC with Differentialon 07-28 Absolute [place] 0.5 [facility] Basophils (Bld) [#/Vol] 0.1 10*3/uL [facility] Basophils/100 WBC (Bld) 0.8 % [facility] Eosinophils (Bld) [#/Vol] 0.5 10*3/uL High [facility] Eosinophils/100 WBC (Bld) 6.4 % [facility] Erythrocyte distribution width (RBC) [Ratio] 13.8 % 11.5 - 14.5 % [facility] Hematocrit (Bld) [Volume fraction] 43.3 % 37.7 - 51.1 % [facility] Hemoglobin (Bld) [Mass/Vol] 14.8 g/dL 12.8 - 17.7 g/dL [facility] Interpretation and review of laboratory results Abnormal [facility] Lymphocytes (Bld) [#/Vol] 3.6 10*3/uL High [facility] Lymphocytes/100 WBC (Bld) 49.1 % [facility] MCH (RBC) [Entitic mass] 35.0 pg High 27 - 34.2 pg [facility] MCHC (RBC) [Mass/Vol] 34.2 g/dL 31.4 - 36.2 g/dl [facility] MCV (RBC) [Entitic vol] 102.4 fL High 80.6 - 99 fL [facility] Monocytes/100 WBC (Bld) 6.4 % [facility] Neutrophils (Bld) [#/Vol] 2.8 10*3/uL [facility] Neutrophils/100 WBC (Bld) 37.3 % [facility] Platelets (Bld) [#/Vol] 283.0 10*3/uL [facility] RBC (Bld) [#/Vol] 4.23 10*6/uL [facility] WBC LM Ql (Sput) 7.4 [facility] GLOMERULAR FILTRATION RATEon 08-13-2019 GFR/1.73 sq M.predicted MDRD (S/P/Bld) [Vol rate/Area] mL/min/{1.73_m2} [facility] Comment on above: To estimate the GFR for Americans, multiply the result provided by 1.21. Population mean GFR = 116 ml/min/1.73 sq.m. for ages 18-29 yrs. The MDRD is validated in individuals 18-70 years of age. It is less accurate in patients with extremes of muscle mass, restriction of dietary protein, ingestion of creatine, extra-renal metabolism of creatinine, or treatment with medications that affect renal tubular creatinine secretion. GFR Categories in Chronic Kidney Disease (CKD) Category: GFR(mL/min/1.73m^2) Interpretation: G1* 90 or greater Normal or high G2* 60-89 Mild decrease G3a 45-59 Mild to moderate decrease G3b 30-44 Moderate to severe decrease G4 15-29 Severe decrease G5 14 or less Kidney failure *G1&G2: In the absence of evidence of kidney damage, neither GFR category G1 nor G2 fulfill the criteria for CKD Kidney Int Suppl.2013;3:1-150 CBC with Differentialon 05-31 Absolute [place] 0.7 [facility] Basophils (Bld) [#/Vol] 0.1 10*3/uL [facility] Basophils/100 WBC (Bld) 0.7 % [facility] Eosinophils (Bld) [#/Vol] 0.6 10*3/uL [facility] Eosinophils/100 WBC (Bld) 7.1 % [facility] [employer] Erythrocyte distribution width (RBC) [Ratio] 13.5 % 11.5 - 14.5 % [facility] Hematocrit (Bld) [Volume fraction] 50.5 % 37.7 - 51.1 % [facility] Hemoglobin (Bld) [Mass/Vol] 17.1 g/dL 12.8 - 17.7 g/dL [facility] Interpretation and review of laboratory results Abnormal [facility] Lymphocytes (Bld) [#/Vol] 2.2 10*3/uL [employer] Lymphocytes/100 WBC (Bld) 25.0 % [facility] [employer] MCH (RBC) [Entitic mass] 36.2 pg High 27 - 34.2 pg [employer] MCHC (RBC) [Mass/Vol] 33.9 g/dL 31.4 - 36.2 g/dl [facility] [employer] MCV (RBC) [Entitic vol] 107.0 fL High 80.6 - 99 fL [employer] Monocytes/100 WBC (Bld) 8.2 % [facility] Neutrophils (Bld) [#/Vol] 5.2 10*3/uL [facility] Neutrophils/100 WBC (Bld) 59.0 % [facility] Platelets (Bld) [#/Vol] 276.0 10*3/uL [facility] RBC (Bld) [#/Vol] 4.72 10*6/uL [facility] WBC LM Ql (Sput) 8.9 [facility] Comprehensive metabolic pane l aka [employer] 06-22-2019 Albumin [Mass/Vol] 4.7 g/dL 3.5 - 5 g/dL [facility] Alk Phos 87 U/L 24 - 126 U/L [facility] ALT [Catalytic activity/Vol] 24 U/L 4 - 50 U/L [facility] AST [Catalytic activity/Vol] 33 U/L 3 - 55 U/L [facility] Bilirubin [Mass/Vol] 0.7 mg/dL 0.2 - 1 .6 mg/dL [facility] Calcium [Mass/Vol] 9.8 mg/dL 8.4 - 10. 4 mg/dL [facility] Chloride [Moles/Vol] 101 mmol/L 96 - 10 9 mmol/L [facility] CO2 [Moles/Vol] 25 mmol/L 22 - 30 mmol/L [facility] Comprehensive metabolic 2000 panel 0.64 mg/dL Low 0.66 - 1.25 mg/dL [facility] Glucose [Mass/Vol] 102 mg/dL High 65 - 100 mg/dL [facility] Potassium [Moles/Vol] 4.8 mmol/L 3.6 - 5.1 mmol/L [facility] Protein [Mass/Vol] 8.3 g/dL High 6.3 - 8.2 g/dL [facility] Sodium [Moles/Vol] 136 mmol/L 135 - 147 mmol/L [facility] Urea nitrogen [Mass/Vol] 16 mg/dL 8 - 26 mg/dL [facility] GLOMERULAR FILTRATION RATEon 06-22-2019 GFR/1.73 sq M.predicted MDRD (S/P/Bld) [Vol rate/Area] mL/min/{1.73_m2} [facility] Comment on above: To estimate the GFR for Americans, multiply the result provided by 1.21. Population mean GFR = 99 ml/min/1.73 sq.m. for ages 40-49 yrs Five stages of CKD and GFR for each stage: Stage 1 GFR >=90 Stage 2 GFR 60-89 Stage 3 GFR 30-59 Stage 4 GFR 15-29 Stage 5 GFR <15 Lipid panelon 06-22-2019 Cholesterol [Mass/Vol] 245 mg/dL High 0 - 200 mg/dL [facility] Comment on above: CHOLESTEROL REFERENC E RANGE Desirable <200 mg/dL Borderline 200-239 mg/dL High >240 mg/dL . Cholesterol in HDL [Mass/Vol] 54.7 mg/dL 40 - 59.9 mg/dL [facility] Comment on above: Interpretive data fo r HDL Cholesterol states: HDL <40 mg/dL is low and constitutes a coronary disease risk factor. HDL >60 mg/dL is a negative risk factor for coronary heart disease. . Cholesterol in LDL [Mass/Vol] 178 mg/dL High 0 - 100 mg/dL [facility] Comment on above: LDL REFERENCE RANGE Optimal <100 mg/dl Near Optimal 100-129 mg/dL Borderline High 130-159 mg/dL High 160-189 mg/dL Very High >=190 mg/dL . Cholesterol in VLDL [Mass/Vol] 12 mg/dL <42 [facility] Triglyceride [Mass/Vol] 60 mg/dL 0 - 150 mg/d L [facility] Comment on above: TRIGLYCERIDE REFEREN CE RANGE Normal <150 mg/dL Borderline High 150-199 mg/dL High 200-499 mg/dL Very High >=500 mg/dL . Otheron 06-22-2019 Interpretation and review of laboratory results Abnormal [facility] Basic metabolic panel aka Ch em 8on 05-24-2019 Calcium [Mass/Vol] 9.3 mg/dL 8.4 - 10. 4 mg/dL [facility] Chloride [Moles/Vol] 104 mmol/L 96 - 10 9 mmol/L [facility] CO2 [Moles/Vol] 19 mmol/L Low 22 - 30 mmol/L [facility] Comprehensive metabolic 2000 panel 0.67 mg/dL 0.66 - 1.25 mg/dL [facility] Glucose [Mass/Vol] 56 mg/dL Low 65 - 100 mg/dL [facility] Interpretation and review of laboratory results Abnormal [facility] Potassium [Moles/Vol] 4.1 mmol/L 3.6 - 5.1 mmol/L [facility] Sodium [Moles/Vol] 140 mmol/L 135 - 147 mmol/L [facility] Urea nitrogen [Mass/Vol] 10 mg/dL 8 - 26 mg/dL [facility] CBC with Differentialon 04-30 Absolute [place] 0.6 [facility] Basophils (Bld) [#/Vol] 0.1 10*3/uL [facility] Basophils/100 WBC (Bld) 1.3 % [facility] Eosinophils (Bld) [#/Vol] 0.9 10*3/uL High [facility] Eosinophils/100 WBC (Bld) 8.2 % [facility] Erythrocyte distribution width (RBC) [Ratio] 14.0 % 11.5 - 14.5 % [facility] Hematocrit (Bld) [Volume fraction] 52.3 % High 37.7 - 51.1 % [facility] Hemoglobin (Bld) [Mass/Vol] 18.4 g/dL Critically high 12.8 - 17.7 g/dL [facility] Interpretation and review of laboratory results Abnormal [facility] Lymphocytes (Bld) [#/Vol] 3.5 10*3/uL High [facility] Lymphocytes/100 WBC (Bld) 32.6 % [facility] MCH (RBC) [Entitic mass] 37.1 pg High 27 - 34.2 pg [facility] MCHC (RBC) [Mass/Vol] 35.2 g/dL 31.4 - 36.2 g/dl [facility] MCV (RBC) [Entitic vol] 105.4 fL High 80.6 - 99 fL [facility] Monocytes/100 WBC (Bld) 5.2 % [facility] Neutrophils (Bld) [#/Vol] 5.6 10*3/uL [facility] Neutrophils/100 WBC (Bld) 52.7 % [facility] Platelets (Bld) [#/Vol] 284.0 10*3/uL [facility] RBC (Bld) [#/Vol] 4.96 10*6/uL [facility] WBC LM Ql (Sput) 10.7 High [facility] GLOMERULAR FILTRATION RATEon 05-24-2019 GFR/1.73 sq M.predicted MDRD (S/P/Bld) [Vol rate/Area] mL/min/{1.73_m2} [facility] Comment on above: To estimate the GFR for Americans, multiply the result provided by 1.21. Population mean GFR = 99 ml/min/1.73 sq.m. for ages 40-49 yrs Five stages of CKD and GFR for each stage: Stage 1 GFR >=90 Stage 2 GFR 60-89 Stage 3 GFR 30-59 Stage 4 GFR 15-29 Stage 5 GFR <15 Troponin Ion 05-24-2019 Troponin I.cardiac [Mass/Vol] ng/mL 0 - 0.033 ng/mL [facility] Comment on above: NEGATIVE; No detectable troponin-I. XR Chest Portable (1 View)on 05-24-2019 EXAMINATION: ONE XRA Y VIEW OF THE CHEST 05/24/2019 7:37 am COMPARISON: 05/14/2019 HISTORY: sob Patient states left sided chest pains FINDINGS: The lungs are without acute focal process. There is no effusion or pneumothorax. The cardiomediastinal silhouette is without acute process. The osseous structures are without acute process. [facility] Pb, Rad Results In - 05/24/2019 8:02 AM EST EXAMINATION: ONE XRAY VIEW OF THE CHEST 05/24/2019 7:37 am COMPARISON: 05/14/2019 HISTORY: sob Patient states left sided chest pains FINDINGS: The lungs are without acute focal process. There is no effusion or pneumothorax. The cardiomediastinal silhouette is without acute process. The osseous structures are without acute process. IMPRESSION: No evidence of acute pulmonary process. [facility] No evidence of acute pulmonary process. [facility] Basic metabolic panel aka Ch em 8on 05-16-2019 Calcium [Mass/Vol] 9.2 mg/dL 8.4 - 10. 4 mg/dL [facility] Chloride [Moles/Vol] 101 mmol/L 96 - 10 9 mmol/L [facility] CO2 [Moles/Vol] 25 mmol/L 22 - 30 mmol/L [facility] Comprehensive metabolic 2000 panel 0.66 mg/dL 0.66 - 1.25 mg/dL [facility] Glucose [Mass/Vol] 120 mg/dL High 65 - 100 mg/dL [facility] Interpretation and review of laboratory results Abnormal [facility] Potassium [Moles/Vol] 3.9 mmol/L 3.6 - 5.1 mmol/L [facility] Sodium [Moles/Vol] 133 mmol/L Low 135 - 147 mmol/L [facility] Urea nitrogen [Mass/Vol] 9 mg/dL 8 - 26 mg/dL [facility] CBC without Differentialon 1 07-17-2018 Erythrocyte distribution width (RBC) [Ratio] 13.7 % 11.5 - 14.5 % [facility] Hematocrit (Bld) [Volume fraction] 45.9 % 37.7 - 51.1 % [facility] Hemoglobin (Bld) [Mass/Vol] 15.4 g/dL 12.8 - 17.7 g/dL [facility] Interpretation and review of laboratory results Abnormal [facility] MCH (RBC) [Entitic mass] 35.5 pg High 27 - 34.2 pg [facility] MCHC (RBC) [Mass/Vol] 33.6 g/dL 31.4 - 36.2 g/dl [facility] MCV (RBC) [Entitic vol] 105.8 fL High 80.6 - 99 fL [facility] Platelets (Bld) [#/Vol] 155.0 10*3/uL [facility] RBC (Bld) [#/Vol] 4.34 10*6/uL [facility] WBC LM Ql (Sput) 5.3 [facility] GLOMERULAR FILTRATION RATEon 05-16-2019 GFR/1.73 sq M.predicted MDRD (S/P/Bld) [Vol rate/Area] mL/min/{1.73_m2} [facility] Comment on above: To estimate the GFR for Americans, multiply the result provided by 1.21. Population mean GFR = 99 ml/min/1.73 sq.m. for ages 40-49 yrs Five stages of CKD and GFR for each stage: Stage 1 GFR >=90 Stage 2 GFR 60-89 Stage 3 GFR 30-59 Stage 4 GFR 15-29 Stage 5 GFR <15 aPTTon 05-16-2019 aPTT Coag (PPP) [Time] 27.5 [facility] Cholesterol Screen with Trig lycerideon 05-15-2019 Cholesterol [Mass/Vol] 204 mg/dL High 0 - 200 mg/dL [facility] Comment on above: CHOLESTEROL REFERENC E RANGE Desirable <200 mg/dL Borderline 200-239 mg/dL High >240 mg/dL . Cholesterol in HDL [Mass/Vol] 68.6 mg/dL High 40 - 59.9 mg/dL [facility] Comment on above: Interpretive data fo r HDL Cholesterol states: HDL <40 mg/dL is low and constitutes a coronary disease risk factor. HDL >60 mg/dL is a negative risk factor for coronary heart disease. . Cholesterol in LDL [Mass/Vol] 114 mg/dL High 0 - 100 mg/dL [facility] Comment on above: LDL REFERENCE RANGE Optimal <100 mg/dl Near Optimal 100-129 mg/dL Borderline High 130-159 mg/dL High 160-189 mg/dL Very High >=190 mg/dL . Cholesterol in VLDL [Mass/Vol] 22 mg/dL <42 [facility] Interpretation and review of laboratory results Abnormal [facility] Triglyceride [Mass/Vol] 108 mg/dL 0 - 150 mg/d L [facility] Comment on above: TRIGLYCERIDE REFEREN CE RANGE Normal <150 mg/dL Borderline High 150-199 mg/dL High 200-499 mg/dL Very High >=500 mg/dL . Echocardiogram 2D F/U or de leon itedon 05-15-2019 Pb, Rad Results In - 05/15/2019 4:29 PM EST Transthoracic Echo Report YONATHAN FERNANDEZ Exam Date: 05/15/2019 08:03 Ordering Physician: THOMAS DUBON Age 44 Gender: M Exam Location: - Echo Primary Care Physician: HAYDEN HERRERA APRN CN : 1975 Ht (in): 64 Wt (lb): 136 Technologist: JAMISON OSPINA RCS BSA: 1.68 m Procedure CPT: 04369 Indications: CP, Chest Pressure, Chest Tightness Cardiac History: BP: 110 / 76 HR: 61 Contrast: NONE Technical Quality: Good MEASUREMENTS (Male / Female) Normal Values 2D ECHO LV Diastolic Diameter RIC 4.1 cm 4.2 - 5.9 / 3 LV Cardiac Index MOD BP 2115.0 cm LV Systolic Diameter PLAX 2.9 cm LV Ejection Fraction MOD 56.1 % IVS Diastolic Thickness 1.1 cm 0.6 - 1.0 / 0 LV Cardiac Index MOD 4C 2034.9 cm LVPW Diastolic Thickness 1.5 cm 0.6 - 1.0 / 0 LV Ejection Fraction 4C A 58.4 % LV Relative Wall Thicknes 0.6 LV Cardiac Index 4C AL 2184.4 cm RV Internal Dim ED PLAX 3.2 cm LV Ejection Fraction MOD 56.7 % RV LV Int Dim Hoang Ratio 0.8 LV Cardiac Index MOD 2C 2104.1 cm LVOT Diameter 2.0 cm LV Ejection Fraction 2C A 56.0 % Aortic Root Diameter 3.4 cm LV Cardiac Index 2C AL 2113.2 cm LA Systolic Diameter LX 3.3 cm 3.0 - 4.0 / 2 LV Ejection Fraction 2D T 56.8 % LV Ejection Fraction MOD 57.0 % >= 55 % LA Volume Index 26.8 cm /m 16 - 28 cm /m FINDINGS Left Ventricle Normal left ventricular size, systolic function and wall thickness, with no regional wall motion abnormalities. Normal left ventricular wall thickness. Left ventricular ejection fraction is between 55-60%. EF < 40% : No Right Ventricle The right ventricle is normal in size and function. Right Atrium The right atrium is normal in size. Left Atrium The left atrium is dilated. Mitral Valve Structurally normal mitral valve without significant stenosis or prolapse. There is no mitral regurgitation. Aortic Valve Structurally normal aortic valve without significant sclerosis or stenosis. There is no aortic regurgitation. Tricuspid Valve Structurally normal tricuspid valve without significant stenosis or regurgitation. Pulmonary artery systolic pressure is normal. Pulmonic Valve Structurally normal pulmonic valve without significant stenosis. There is no pulmonic regurgitation. Pericardium Normal pericardium without effusion. Aorta Normal ascending aorta dimension. IMPRESSION: Limited echocardiogram to evaluate left ventricular systolic function. Normal left ventricular size and systolic function. Left ventricular ejection fraction is between 55-60%. Normal right ventricular size and systolic function. Dilated left atrium. There is no pericardial effusion. Thomas Dubon M.D. (Electronically Signed) Final Date: 15 May 2019 16:28 [facility] Transthoracic Echo Report YONATHAN FERNANDEZ Exam Date: 05/15/2019 08:03 Ordering Physician: THOMAS DUBON Age 44 Gender: M Exam Location: - Echo Primary Care Physician: HAYDEN HERRERA APRN CN : 1975 Ht (in): 64 Wt (lb): 136 Technologist: JAMISON OSPINA RCS BSA: 1.68 m Procedure CPT: 98800 Indications: CP, Chest Pressure, Chest Tightness Cardiac History: BP: 110 / 76 HR: 61 Contrast: NONE Technical Quality: Good MEASUREMENTS (Male / Female) Normal Values 2D ECHO LV Diastolic Diameter RIC 4.1 cm 4.2 - 5.9 / 3 LV Cardiac Index MOD BP 2115.0 cm LV Systolic Diameter PLAX 2.9 cm LV Ejection Fraction MOD 56.1 % IVS Diastolic Thickness 1.1 cm 0.6 - 1.0 / 0 LV Cardiac Index MOD 4C 2034.9 cm LVPW Diastolic Thickness 1.5 cm 0.6 - 1.0 / 0 LV Ejection Fraction 4C A 58.4 % LV Relative Wall Thicknes 0.6 LV Cardiac Index 4C AL 2184.4 cm RV Internal Dim ED PLAX 3.2 cm LV Ejection Fraction MOD 56.7 % RV LV Int Dim Hoang Ratio 0.8 LV Cardiac Index MOD 2C 2104.1 cm LVOT Diameter 2.0 cm LV Ejection Fraction 2C A 56.0 % Aortic Root Diameter 3.4 cm LV Cardiac Index 2C AL 2113.2 cm LA Systolic Diameter LX 3.3 cm 3.0 - 4.0 / 2 LV Ejection Fraction 2D T 56.8 % LV Ejection Fraction MOD 57.0 % >= 55 % LA Volume Index 26.8 cm /m 16 - 28 cm /m FINDINGS Left Ventricle Normal left ventricular size, systolic function and wall thickness, with no regional wall motion abnormalities. Normal left ventricular wall thickness. Left ventricular ejection fraction is between 55-60%. EF < 40% : No Right Ventricle The right ventricle is normal in size and function. Right Atrium The right atrium is normal in size. Left Atrium The left atrium is dilated. Mitral Valve Structurally normal mitral valve without significant stenosis or prolapse. There is no mitral regurgitation. Aortic Valve Structurally normal aortic valve without significant sclerosis or stenosis. There is no aortic regurgitation. Tricuspid Valve Structurally normal tricuspid valve without significant stenosis or regurgitation. Pulmonary artery systolic pressure is normal. Pulmonic Valve Structurally normal pulmonic valve without significant stenosis. There is no pulmonic regurgitation. Pericardium Normal pericardium without effusion. Aorta Normal ascending aorta dimension. [facility] Hemoglobin and hematocriton 05-15-2019 Hematocrit (Bld) [Volume fraction] 43.8 % 37.7 - 51.1 % [facility] Hemoglobin (Bld) [Mass/Vol] 15.1 g/dL 12.8 - 17.7 g/dL [facility] Magnesium Levelon 05-15-2019 Magnesium [Mass/Vol] 2.2 mg/dL 1.6 - 2 .3 mg/dL [facility] Platelet counton 05-15-2019 Platelets (Bld) [#/Vol] 195.0 10*3/uL [facility] aPTTon 05-15-2019 aPTT Coag (PPP) [Time] 46.7 s High [employer] [facility] Interpretation and review of laboratory results Abnormal [facility] Basic metabolic panel aka Ch em 8on 05-14-2019 Calcium [Mass/Vol] 9.0 mg/dL 8.4 - 10. 4 mg/dL [facility] Chloride [Moles/Vol] 106 mmol/L 96 - 10 9 mmol/L [facility] CO2 [Moles/Vol] 19 mmol/L Low 22 - 30 mmol/L [facility] Comprehensive metabolic 2000 panel 0.61 mg/dL Low 0.66 - 1.25 mg/dL [facility] Glucose [Mass/Vol] 84 mg/dL 65 - 100 mg/dL [facility] Interpretation and review of laboratory results Abnormal [facility] Potassium [Moles/Vol] 4.1 mmol/L 3.6 - 5.1 mmol/L [facility] Sodium [Moles/Vol] 140 mmol/L 135 - 147 mmol/L [facility] Urea nitrogen [Mass/Vol] 9 mg/dL 8 - 26 mg/dL [facility] CBC with Differentialon 04-29 Absolute [place] 0.5 [facility] Basophils (Bld) [#/Vol] 0.1 10*3/uL [facility] Basophils/100 WBC (Bld) 0.8 % [facility] Eosinophils (Bld) [#/Vol] 0.2 10*3/uL [facility] Eosinophils/100 WBC (Bld) 2.3 % [facility] Erythrocyte distribution width (RBC) [Ratio] 14.5 % 11.5 - 14.5 % [employer] [facility] Hematocrit (Bld) [Volume fraction] 48.6 % 37.7 - 51.1 % [employer] [facility] Hemoglobin (Bld) [Mass/Vol] 16.7 g/dL 12.8 - 17.7 g/dL [facility] Interpretation and review of laboratory results Abnormal [facility] Lymphocytes (Bld) [#/Vol] 2.0 10*3/uL [employer] [facility] Lymphocytes/100 WBC (Bld) 22.4 % [facility] MCH (RBC) [Entitic mass] 36.7 pg High 27 - 34.2 pg [facility] MCHC (RBC) [Mass/Vol] 34.4 g/dL 31.4 - 36.2 g/dl [facility] MCV (RBC) [Entitic vol] 106.8 fL High 80.6 - 99 fL [facility] Monocytes/100 WBC (Bld) 5.3 % [facility] Neutrophils (Bld) [#/Vol] 6.3 10*3/uL [facility] Neutrophils/100 WBC (Bld) 69.2 % [facility] Platelets (Bld) [#/Vol] 234.0 10*3/uL [facility] RBC (Bld) [#/Vol] 4.55 10*6/uL [facility] WBC LM Ql (Sput) 9.1 [facility] CTA Chest With IV Contrast P E Studyon 05-14-2019 Pb, Rad Results In - 05/14/2019 2:55 PM EST EXAMINATION: CTA OF THE CHEST 05/14/2019 2:23 pm TECHNIQUE: CTA of the chest was performed after the administration of intravenous contrast. Multiplanar reformatted images are provided for review. MIP images are provided for review. Dose modulation, iterative reconstruction, and/or weight based adjustment of the mA/kV was utilized to reduce the radiation dose to as low as reasonably achievable. COMPARISON: 12/17/2018 HISTORY: Chest pain, acute, PE suspected, intermed prob, positive D-dimer Pt c/o left sided chest pain and SOB FINDINGS: Pulmonary Arteries: Pulmonary arteries are adequately opacified for evaluation. No evidence of intraluminal filling defect to suggest pulmonary embolism. Main pulmonary artery is normal in caliber. Mediastinum: No evidence of mediastinal lymphadenopathy. The heart and pericardium demonstrate no acute abnormality. There is no acute abnormality of the thoracic aorta. Lungs/pleura: The lungs are without acute process. No focal consolidation or pulmonary edema. No evidence of pleural effusion or pneumothorax. Upper Abdomen: Limited images of the upper abdomen are unremarkable. Mild hepatic steatosis. Soft Tissues/Bones: Mild thoracic spondylotic changes. No acute fractures. IMPRESSION: No evidence of pulmonary embolism or acute pulmonary abnormality. [email or web address] EXAMINATION: CTA OF THE CHEST 05/14/2019 2:23 pm TECHNIQUE: CTA of the chest was performed after the administration of intravenous contrast. Multiplanar reformatted images are provided for review. MIP images are provided for review. Dose modulation, iterative reconstruction, and/or weight based adjustment of the mA/kV was utilized to reduce the radiation dose to as low as reasonably achievable. COMPARISON: 12/17/2018 HISTORY: Chest pain, acute, PE suspected, intermed prob, positive D-dimer Pt c/o left sided chest pain and SOB FINDINGS: Pulmonary Arteries: Pulmonary arteries are adequately opacified for evaluation. No evidence of intraluminal filling defect to suggest pulmonary embolism. Main pulmonary artery is normal in caliber. Mediastinum: No evidence of mediastinal lymphadenopathy. The heart and pericardium demonstrate no acute abnormality. There is no acute abnormality of the thoracic aorta. Lungs/pleura: The lungs are without acute process. No focal consolidation or pulmonary edema. No evidence of pleural effusion or pneumothorax. Upper Abdomen: Limited images of the upper abdomen are unremarkable. Mild hepatic steatosis. Soft Tissues/Bones: Mild thoracic spondylotic changes. No acute fractures. [email or web address] No evidence of pulmonary embolism or acute pulmonary abnormality. [email or web address] EKG 12-LEADon 05-14-2019 Stationary ECG Study Test Date: 2019-05-14 Pat Name: YONATHAN FERNANDEZ Department: Room: Gender: Male Consulting Analyst: NAS : 1975 Requested By: Order Number: Reading : Devan Stallworth Measurements Intervals [place] Rate: 75 P: 58 HI: 165 QRS: 70 QRSD: 84 T: 40 QT: 357 QTc: 386 Interpretive Statements SINUS RHYTHM WITH SINUS ARRHYTHMIA Electronically Signed On 05-14-2019 16:21:23 EST by Devan Stallworth [email or web address] Stationary ECG Study Test Date: 2019-05-14 Pat Name: YONATHAN CEBALLOSELL Department: Room: Gender: Male Consulting Analyst: CLARITZA : 1975 Requested By: Order Number: [id number] MD: Tremayne Dubon Measurements Intervals [place] Rate: 81 P: 66 HI: 166 QRS: 72 QRSD: 84 T: 51 QT: 361 QTc: 399 Interpretive Statements SINUS RHYTHM NORMAL ECG NO SIGNIFICANT CHANGE FROM PREVIOUS EKG OF 12/17/18 Electronically Signed On 05-14-2019 11:21:33 EST by Tremayne Dubon [email or web address] Folateon 05-14-2019 Folate [Mass/Vol] 11.6 ng/mL [email or web address] Comment on above: Folate Reference Ran ge: >2.8 ng/mL . GLOMERULAR FILTRATION RATEon 05-14-2019 GFR/1.73 sq M.predicted MDRD (S/P/Bld) [Vol rate/Area] mL/min/{1.73_m2} [email or web address] Comment on above: To estimate the GFR for Americans, multiply the result provided by 1.21. Population mean GFR = 99 ml/min/1.73 sq.m. for ages 40-49 yrs Five stages of CKD and GFR for each stage: Stage 1 GFR >=90 Stage 2 GFR 60-89 Stage 3 GFR 30-59 Stage 4 GFR 15-29 Stage 5 GFR <15 Hemoglobin and hematocrit - Baselineon 05-14-2019 Hematocrit (Bld) [Volume fraction] 47.4 % 37.7 - 51.1 % [email or web address] Hemoglobin (Bld) [Mass/Vol] 16.2 g/dL 12.8 - 17.7 g/dL [employer] Magnesiumon 05-14-2019 Magnesium [Mass/Vol] 1.6 mg/dL 1.6 - 2 .3 mg/dL [employer] Platelet count - Baselineon 05-14-2019 Platelets (Bld) [#/Vol] 211.0 10*3/uL [email or web address] Protime-INR - Baselineon INR Coag (PPP) [Relative time] 1.03 {INR} [facility] PT Coag (PPP) [Time] 10.[address] [facility] Troponin Ion 05-14-2019 Troponin I.cardiac [Mass/Vol] ng/mL 0 - 0.033 ng/mL [email or web address] Comment on above: NEGATIVE; No detectable troponin-I. Troponin I.cardiac [Mass/Vol] ng/mL 0 - 0.033 ng/mL [employer] Comment on above: NEGATIVE; No detectable troponin-I. Troponin I.cardiac [Mass/Vol] ng/mL 0 - 0.033 ng/mL [employer] Comment on above: NEGATIVE; No detectable troponin-I. Vitamin B12on 05-14-2019 Cobalamin (Vitamin B12) [Mass/Vol] 383 pg/mL 239 - 931 pg/mL [facility] XR Chest Portable (1 View)on 05-14-2019 No acute cardiopulmonary abnormality [facility] [employer] EXAMINATION: ONE XRA Y VIEW OF THE CHEST 05/14/2019 8:37 am COMPARISON: None. HISTORY: sob Mid chest pain, SOB, smoker FINDINGS: The cardiomediastinal silhouette is not enlarged. No pleural effusion or pneumothorax. No focal consolidation. [employer] Pb, Rad Results In - 05/14/2019 8:59 AM EST EXAMINATION: ONE XRAY VIEW OF THE CHEST 05/14/2019 8:37 am COMPARISON: None. HISTORY: sob Mid chest pain, SOB, smoker FINDINGS: The cardiomediastinal silhouette is not enlarged. No pleural effusion or pneumothorax. No focal consolidation. IMPRESSION: No acute cardiopulmonary abnormality [employer] aPTTon 05-14-2019 aPTT Coag (PPP) [Time] 30.4 s [facility] aPTT - Baselineon 05-14-2019 aPTT Coag (PPP) [Time] 26.8 s [facility] Vital Signs Date Time Vital Sign Value Performing Clinician Facility 10-23-2024 10:18 Body height 162.6 cm Joyce Hennessy MD Work Phone: [facility] 10-23-2024 10:18-040 Body mass index (BMI) [Ratio] 27.46 kg/m2 Joyec Hennessy MD Work Phone: [facility] 10-23-2024 [id number] Body weight 72.58 kg Joyce Hennessy MD Work Phone: [facility] 10-23-2024 10:18-0400 Diastolic blood pressure 79 mm[Hg] Joyce Hennessy MD Work Phone: [facility] 10-23-2024 10:18-0400 Heart rate 74 /min Joyce Hennessy MD Work Phone: [facility] 10-23-2024 10:18-0400 Systolic blood pressure 113 mm[Hg] Joyce Hennessy MD Work Phone: [facility] 07-17-2024 13:33-0500 Body height 162.6 cm Joyce Hennessy MD Work Phone: [facility] 07-17-2024 13:33-0500 Body mass index (BMI) [Ratio] 27.46 kg/m2 Joyce Hennessy MD Work Phone: [facility] 07-17-2024 13:33-0500 Body weight 72.58 kg Joyce Hennessy MD Work Phone: [facility] 07-17-2024 13:33-0500 Diastolic blood pressure 65 mm[Hg] Joyce Hennessy MD Work Phone: [facility] 07-17-2024 13:33-0500 Heart rate 69 /min Joyce Hennessy MD Work Phone: [facility] 07-17-2024 13:33-0500 Systolic blood pressure 105 mm[Hg] Joyce Hennessy MD Work Phone: [facility] 06-21-2024 09:06-0500 Body temperature 98.01 [degF] Joyce Hennessy MD Work Phone: [facility] 06-21-2024 09:06-0500 Diastolic blood pressure 66 mm[Hg] Joyce Hennessy MD Work Phone: [facility] 06-21-2024 09:06-0500 Heart rate 72 /min Joyce Hennessy MD Work Phone: [facility] 06-21-2024 09:06-0500 Respiratory rate 16 /min Joyce Hennessy MD Work Phone: [facility] 06-21-2024 09:06-0500 SaO2% (BldA) [Mass fraction] 95 % Joyce Hennessy MD Work Phone: [facility] 06-21-2024 09:06-0500 Systolic blood pressure 124 mm[Hg] Joyce Hennessy MD Work Phone: [facility] 06-19-2024 11:00-0500 Body height 162.6 cm Joyce Hennessy MD Work Phone: [facility] 06-19-2024 11:00-0500 Body mass index (BMI) [Ratio] 31.07 kg/m2 Joyce Hennessy MD Work Phone: [facility] 06-19-2024 11:00-0500 Body weight 82.1 kg Joyce Hennessy MD Work Phone: [facility] 07-04-2021 20:17-0500 Body temperature 98.01 [degF] eDuce Thompson MD Work Phone: [facility] 07-04-2021 20:17-0500 Diastolic blood pressure 78 mm[Hg] Deuce Thompson MD Work Phone: [facility] 07-04-2021 20:17-0500 Heart rate 80 /min Deuce Thompson MD Work Phone: [facility] 07-04-2021 20:17-0500 Respiratory rate 18 /min Deuce Thompson MD Work Phone: [facility] 07-04-2021 20:17-0500 SaO2% (BldA) [Mass fraction] 95 % Deuce Thompson MD Work Phone: [facility] 07-04-2021 20:17-0500 Systolic blood pressure 124 mm[Hg] Deuce Thompson MD Work Phone: [facility] 07-04-2021 06:23-0500 Body mass index (BMI) [Ratio] 26.47 kg/m2 Deuce Thompson MD Work Phone: [facility] 07-04-2021 06:23-0500 Body weight 69.94 kg Deuce Thompson MD Work Phone: [facility] 02-22-2021 16:30-0400 Body temperature 98.01 [degF] Shiv Park MD Work Phone: [facility] 02-22-2021 16:30-0400 Diastolic blood pressure 88 mm[Hg] Shiv Park MD Work Phone: 6(688)183-880089 [address] 02-22-2021 16:30-0400 Heart rate 82 /min Shiv Park MD Work Phone: 0(929)745-053289 [address] 02-22-2021 16:30-0400 Respiratory rate 20 /min Shiv Park MD Work Phone: [facility] 02-22-2021 16:30-0400 SaO2% (BldA) [Mass fraction] 96 % Shiv Park MD Work Phone: 6(976)791-517689 [address] 02-22-2021 16:30-0400 Systolic blood pressure 121 mm[Hg] Shiv Park MD Work Phone: 5(612)599-775889 [address] 02-17-2021 01:18-0400 Body mass index (BMI) [Ratio] 22.43 kg/m2 Shiv Park MD Work Phone: 6(672)641-004589 [address] 02-17-2021 01:18-0400 Body weight 59.28 kg Shiv Park MD Work Phone: 0(256)353-215189 [address] 02-16-2021 20:40-0400 Body height 162.6 cm Shiv Park MD Work Phone: [facility] 01-06-2021 12:00-0400 Respiratory rate 18 /min Kathya Kothari MD Work Phone: 8(906)932-415189 [address] 01-06-2021 11:27-0400 Body temperature 98.01 [degF] Kathya Kothari MD Work Phone: [employer] [facility] 01-06-2021 11:27-0400 Diastolic blood pressure 63 mm[Hg] Kathya Kothari MD Work Phone: [email or web address] 01-06-2021 11:27-0400 Heart rate 93 /min Kathya Kothari MD Work Phone: [email or web address] 01-06-2021 11:27-0400 SaO2% (BldA) [Mass fraction] 94 % Kathya Kothari MD Work Phone: [employer] 01-06-2021 11:27-0400 Systolic blood pressure 110 mm[Hg] Kathya Kothari MD Work Phone: [employer] 01-06-2021 04:30-0400 Body mass index (BMI) [Ratio] 22.76 kg/m2 Kathya Kothari MD Work Phone: [employer] 01-06-2021 04:30-0400 Body weight 60.15 kg Kathya Kothari MD Work Phone: [email or web address] 12-28-2020 19:52-0400 Body height 162.6 cm Kathya Kothari MD Work Phone: [employer] 11-20-2020 04:27-0400 Body temperature 97.11 [degF] Shiv Park MD Work Phone: [employer] 11-20-2020 04:27-0400 Diastolic blood pressure 58 mm[Hg] Shiv Park MD Work Phone: [employer] 11-20-2020 04:27-0400 Heart rate 72 /min Shiv Park MD Work Phone: [employer] 11-20-2020 04:27-0400 Respiratory rate 18 /min Shiv Park MD Work Phone: [employer] 11-20-2020 04:27-0400 SaO2% (BldA) [Mass fraction] 98 % Shiv Park MD Work Phone: [employer] 11-20-2020 04:27-0400 Systolic blood pressure 99 mm[Hg] Shiv Park MD Work Phone: [email or web address] 11-16-2020 02:11-0400 Body height 162.6 cm Shiv Park MD Work Phone: 3(330)614-889389 [address] 11-16-2020 02:11-0400 Body mass index (BMI) [Ratio] 23.04 kg/m2 Shiv Park MD Work Phone: [facility] 11-16-2020 02:11-0400 Body weight 60.87 kg Shiv Park MD Work Phone: 5(402)427-097377 [place] [address] 09-30-2020 12:00-0400 Heart rate 85 /min Kevon Guadarrama MD Work Phone: 3(023)614-155577 [place] [address] 09-30-2020 12:00-0400 SaO2% (BldA) [Mass fraction] 99 % Kevon Guadarrama MD Work Phone: 8(292)763-351689 [address] 09-30-2020 10:56-0400 Body temperature 98.4 [degF] Kevon Guadarrama MD Work Phone: 7(797)158-972477 [place] [address] 09-30-2020 10:56-0400 Diastolic blood pressure 92 mm[Hg] Kevon Guadarrama MD Work Phone: 0(259)534-640177 [place] [address] 09-30-2020 10:56-0400 Respiratory rate 18 /min Kevon Guadarrama MD Work Phone: 0(825)103-974689 [address] 09-30-2020 10:56-0400 Systolic blood pressure 138 mm[Hg] eKvon Guadarrama MD Work Phone: 3(099)346-633677 [place] [address] 09-30-2020 00:27-0400 Body mass index (BMI) [Ratio] 23.1 kg/m2 Kevon Guadarrama MD Work Phone: 2(777)531-318689 [address] 09-30-2020 00:27-0400 Body weight 61.05 kg Kevon Guadarrama MD Work Phone: 1(727)022-485489 [address] 09-20-2020 00:07-0400 Body height 162.6 cm Kevon Guadarrama MD Work Phone: 2(439)202-115989 [address] 05-02-2020 00:12-0500 Body Temperature 98.8 [degF] [facility] 05-02-2020 00:12-0500 BP Diastolic 70 mm[Hg] [facility] 05-02-2020 00:12-0500 BP Systolic 119 mm[Hg] [facility] 05-02-2020 00:12-0500 Pulse (Heart Rate) 98 /min [facility] 05-02-2020 00:12-0500 Pulse Oximetry 94 % [facility] 05-02-2020 00:12-0500 Respiratory Rate 18 /min [facility] 05-01-2020 20:55-0500 BMI (Body Mass Index) 22.31 kg/m2 [facility] 05-01-2020 20:55-0500 Body weight 58.97 kg [facility] 05-01-2020 20:55-0500 [facility] 04-30-2020 13:22-0500 BP Diastolic 82 mm[Hg] [facility] 04-30-2020 13:22-0500 BP Systolic 135 mm[Hg] [facility] 04-30-2020 12:33-0500 Body Temperature 98.01 [degF] [facility] 04-30-2020 12:33-0500 Pulse (Heart Rate) 64 /min [facility] 04-30-2020 12:33-0500 Pulse Oximetry 98 % [facility] 04-30-2020 12:33-0500 Respiratory Rate 18 /min [facility] are System 04-26-2020 08:23-0500 BMI (Body Mass Index) 22.31 kg/m2 [facility] 04-26-2020 08:23-0500 Body weight 58.97 kg [facility] 04-26-2020 08:23-0500 Height 162.6 cm [facility] 04-12-2020 00:19-0500 BMI (Body Mass Index) 22.14 kg/m2 Kevon Guadarrama [facility] 04-12-2020 00:19-0500 Body Temperature 98.2 [degF] [facility] 04-12-2020 00:19-0500 Body weight 58.51 kg [facility] 04-12-2020 00:19-0500 BP Diastolic 84 mm[Hg] [facility] 04-12-2020 00:19-0500 BP Systolic 138 mm[Hg] [facility] 04-12-2020 00:19-0500 Height 162.6 cm [facility] 04-12-2020 00:19-0500 Pulse (Heart Rate) 101 /min [facility] 04-12-2020 00:19-0500 Pulse Oximetry 96 % [facility] 04-12-2020 00:19-0500 Respiratory Rate 16 /min [facility] 11-14-2019 10:01-0400 BP Diastolic 86 mm[Hg] [facility] 11-14-2019 10:01-0400 BP Systolic 136 mm[Hg] [facility] 11-14-2019 10:01-0400 Pulse (Heart Rate) 84 /min [facility] 11-14-2019 10:01-0400 Pulse Oximetry 96 % [facility] 11-14-2019 10:01-0400 Respiratory Rate 19 /min [facility] 11-14-2019 06:11-0400 BMI (Body Mass Index) 24.03 kg/m2 [facility] 11-14-2019 06:11-0400 Body Temperature 98.01 [degF] [facility] 11-14-2019 06:11-0400 Body weight 63.5 kg [facility] 11-14-2019 06:11-0400 Height 162.6 cm [facility] 08-14-2019 01:20-0400 Body Temperature 98.01 [degF] [facility] 08-14-2019 01:20-0400 BP Diastolic 84 mm[Hg] [facility] 08-14-2019 01:20-0400 BP Systolic 140 mm[Hg] [facility] 08-14-2019 01:20-0400 Pulse (Heart Rate) 74 /min [facility] 08-14-2019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 lds trcg only w/o i&r Shiv Park MD Work Phone: Start: 09-30-2020 Potassium serum plasma/whole blood Arjun Bahena APRN [employer] Work Phone: Start: 09-30-2020 Basic metabolic pane l calcium total Arjun Bahena APRN [employer] Work Phone: Start: 09-30-2020 CBC W Auto Different ial panel - Blood Arjun Bahena APRN [employer] Work Phone: Start: 09-30-2020 GLOMERULAR FILTRATION RATE Arjun Bahena APRN [employer] Work Phone: Start: 09-29-2020 Radiologic exam swal low function contrast study Ayaz Lund MD Work Phone: Start: 09-29-2020 GLOMERULAR FILTRATION RATE Ángel Rodríguez MD Work Phone: Start: 09-29-2020 Renal function panel De annalise Rodríguez MD Work Phone: Start: 09-29-2020 Basic metabolic pane l calcium total Arjun Bahena APRN [employer] Work Phone: Start: 09-29-2020 CBC W Auto Different ial panel - Blood Arjun Bahena APRN [employer] Work Phone: Start: 09-29-2020 GLOMERULAR FILTRATION RATE Arjun Bahena APRN [employer] Work Phone: Start: 09-28-2020 Basic metabolic pane l calcium total Arjun Bahena APRN [employer] Work Phone: Start: 09-28-2020 CBC W Auto Different ial panel - Blood Arjun Bahena APRN [employer] Work Phone: Start: 09-28-2020 GLOMERULAR FILTRATION RATE Arjun Bahena APRN [employer] Work Phone: Start: 09-27-2020 Basic metabolic pane l calcium total Arjun Bahena APRN [employer] Work Phone: Start: 09-27-2020 CBC W Auto Different ial panel - Blood Arjun Bahena APRN [employer] Work Phone: Start: 09-27-2020 GLOMERULAR FILTRATION RATE Arjun Bahena APRN [employer] Work Phone: Start: 09-26-2020 Drug tst prsmv instr mnt chem analyzers pr date Samreen Jacobson MD Work Phone: Start: 09-26-2020 Bacteria identified in Sputum by Respiratory culture Duarte Infante DO Work Phone: Start: 09-26-2020 SARS-COV-2, PCR Ayaz Dominguez MD Work Phone: Start: 09-26-2020 ABG WITH CO-OX, LYTE S, AND LACTATE Ayaz Lund MD Work Phone: Start: 09-26-2020 End: 09-26-2020 Culture bacterial blood aerobic w/id isolates Ayaz Lund MD Work Phone: Start: 09-26-2020 Assay of lactate Ayaz puri MD Work Phone: Start: 09-26-2020 Radiologic exam ches t single view Josie Jacobs MD Work Phone: Start: 09-26-2020 CHEST PHYSIOTHERAPY David Jacobs MD Work Phone: Start: 09-26-2020 Basic metabolic pane l calcium total Arjun Bahena APRN [employer] Work Phone: Start: 09-26-2020 CBC W Auto Different ial panel - Blood Arjun Bahena APRN [employer] Work Phone: Start: 09-26-2020 GLOMERULAR FILTRATION RATE Arjun Bahena APRN [employer] Work Phone: Start: 09-25-2020 Mri brain brain stem w/o contrast material Samreen Jacobson MD Work Phone: Start: 09-25-2020 Radiologic exam ches t single view Ayaz Lund MD Work Phone: Start: 09-25-2020 Assay of ammonia Ayaz puri MD Work Phone: Start: 09-25-2020 Basic metabolic pane l calcium total Arjun Bahena APRN [employer] Work Phone: Start: 09-25-2020 CBC W Auto Different ial panel - Blood Arjun Bahena APRN [employer] Work Phone: Start: 09-25-2020 GLOMERULAR FILTRATION RATE Arjun Bahena APRN [employer] Work Phone: Start: 09-24-2020 Basic metabolic pane l calcium total Arjun Bahena APRN [employer] Work Phone: Start: 09-24-2020 CBC W Auto Different ial panel - Blood Arjun Bahena APRN [employer] Work Phone: Start: 09-24-2020 GLOMERULAR FILTRATION RATE Arjun Bahena APRN [employer] Work Phone: Start: 09-23-2020 Basic metabolic pane l calcium total Arjun Bahena APRN [employer] Work Phone: Start: 09-23-2020 CBC W Auto Different ial panel - Blood Arjun Bahena APRN [employer] Work Phone: Start: 09-23-2020 GLOMERULAR FILTRATION RATE Arjun Bahena APRN [employer] Work Phone: Start: 09-22-2020 Drug screen quantita tive alcohols Samreen Jacobson MD Work Phone: Start: 09-22-2020 Us abdominal real ti me w/image limited Samreen Jacobson MD Work Phone: Start: 09-22-2020 Basic metabolic pane l calcium total Arjun Bahena APRN [employer] Work Phone: Start: 09-22-2020 GLOMERULAR FILTRATION RATE Arjun Bahena APRN [employer] Work Phone: Start: 09-22-2020 CBC W Auto Different ial panel - Blood Arjun Bahena APRN [employer] Work Phone: Start: 09-21-2020 CBC W Auto Different ial panel - Blood Arjun Bahena APRN [employer] Work Phone: Start: 09-21-2020 Comprehensive metabo lic panel Nina Peace MD Work Phone: Start: 09-21-2020 GLOMERULAR FILTRATION RATE Arjun Bahena APRN [employer] Work Phone: Start: 09-20-2020 Drug tst prsmv instr mnt chem analyzers pr date Arjun Bahena APRN [employer] Work Phone: Start: 09-20-2020 Assay of ammonia Ata Leon NP Work Phone: Start: 09-20-2020 Basic metabolic pane l calcium total Arjun Bahena APRN [employer] Work Phone: Start: 09-20-2020 CBC W Auto Different ial panel - Blood Arjun Bahena APRN [employer] Work Phone: Start: 09-20-2020 GLOMERULAR FILTRATION RATE Arjun Bahena APRN [employer] Work Phone: Start: 09-20-2020 Assay of lactate Ata Bahena APRN [employer] Work Phone: Start: 09-19-2020 Ct head/brain w/o co ntrast material Kevon Guadarrama MD Work Phone: Start: 09-19-2020 Ecg routine ecg w/le ast 12 lds trcg only w/o i&r Kevon Guadarrama MD Work Phone: Start: 09-19-2020 CBC W Auto Different ial panel - Blood Kevon Guadarrama MD Work Phone: Start: 09-19-2020 End: 09-19-2020 Comprehensive metabolic panel Kevon Guadarrama MD Work Phone: Start: 09-19-2020 Drug screen quantita tive alcohols Kevon Guadarrama MD Work Phone: Start: 09-19-2020 GLOMERULAR FILTRATION RATE Kevon Guadarrama MD Work Phone: Start: 05-15-2020 Adult depression scr eening assessment Kevon Guadarrama MD Work Phone: Start: 04-30-2020 Gluc bld gluc mntr d ev cleared fda spec home use Service [employer] Work Phone: Start: 04-29-2020 Standard ECG Anahy Victoria can Work Phone: Start: 04-27-2020 Standard ECG Arjun Tang erry Work Phone: Start: 04-26-2020 Drug tst prsmv instr mnt chem analyzers pr date Rosanne Montero Work Phone: Start: 04-26-2020 Urnls dip stick/tabl et reagent auto microscopy Rosanne Montero Work Phone: Start: 04-26-2020 CBC WITH DIFFERENTIAL A my Montero Work Phone: Start: 04-26-2020 Comprehensive metabo lic panel Rosanne Montero Work Phone: Start: 04-26-2020 Drug screen quantita tive alcohols Rosanne Montero Work Phone: Start: 04-26-2020 GLOMERULAR FILTRATION RATE Rosanne Montero Work Phone: Start: 11-14-2019 Assay of troponin quantitative Jocelyn Olivo Work Phone: Start: 11-14-2019 Radiologic exam ches t single view Jocelyn Olivo Work Phone: Start: 11-14-2019 Assay of troponin quantitative Jocelyn Olivo Work Phone: Start: 11-14-2019 Basic metabolic pane l calcium total Jocelyn Olivo Work Phone: Start: 11-14-2019 Drug screen quantita tive alcohols Jocelyn Olivo Work Phone: Start: 11-14-2019 GLOMERULAR FILTRATION RATE Jocelyn Oilvo Work Phone: Start: 11-14-2019 CBC WITH DIFFERENTIAL R mary alice Olivo Work Phone: Start: 11-14-2019 Standard ECG Jocelyn weldon Work Phone: Start: 10-25-2019 Adult depression scr eening assessment Jocelyn Olivo Start: 08-13-2019 Assay of troponin quantitative Kevon Ebeling Work Phone: Start: 08-13-2019 Basic metabolic pane l calcium total Kevon Ebeling Work Phone: Start: 08-13-2019 CBC WITH DIFFERENTIAL B rett Ebeling Work Phone: Start: 08-13-2019 Drug screen quantita tive alcohols Arjun Bahena Work Phone: Start: 08-13-2019 GLOMERULAR FILTRATION RATE Kevon Ebeling Work Phone: Start: 08-13-2019 Standard ECG Kevon Theo ing Work Phone: Start: 06-22-2019 CBC WITH DIFFERENTIAL K yle Herrera Work Phone: Start: 06-22-2019 Comprehensive metabo lic panel Hayden Herrera Work Phone: Start: 06-22-2019 GLOMERULAR FILTRATION RATE Hayden Herrera Work Phone: Start: 06-22-2019 Lipid panel Hayden vázquez Work Phone: Start: 06-22-2019 Lipid 1996 panel - S alex or Plasma Thomas Hairu Start: 05-24-2019 Radiologic exam ches t single view José Miguel Miranda Work Phone: Start: 05-24-2019 Assay of troponin quantitative José Miguel Miranda Work Phone: Start: 05-24-2019 Basic metabolic pane l calcium total José Miguel Miranda Work Phone: Start: 05-24-2019 CBC WITH DIFFERENTIAL S vivek Miranda Work Phone: Start: 05-24-2019 GLOMERULAR FILTRATION RATE José Miguel Miranda Work Phone: Start: 05-24-2019 Standard ECG José Miguel deleon Work Phone: Start: 05-16-2019 Basic metabolic pane l calcium total Maxine Alonso Work Phone: Start: 05-16-2019 Blood count complete automated Maxine Alonso Work Phone: Start: 05-16-2019 GLOMERULAR FILTRATION RATE Chante Jackson Work Phone: Start: 05-16-2019 Thromboplastin time partial plasma/whole blood Chante Jackson Work Phone: Start: 05-15-2019 CARDIAC CATHETERIZAT ION - LEFT HEART Unspecified Provider Start: 05-15-2019 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 Unspecified Provider Start: 05-15-2019 Percutaneous coronar y intervention Unspecified Provider Start: 05-15-2019 Echo transthorc r-t 2d w/wo m-mode rec f-up/lmtd Thomas Hairu Work Phone: Start: 05-15-2019 Assay of magnesium Kelsey Chawla Work Phone: Start: 05-15-2019 [facility] Work [facility]: Start: 05-15-2019 Thromboplastin time partial plasma/whole blood Chante Jackson Work Phone: Start: 05-15-2019 Blood count platelet automated Chante Jackson Work Phone: Start: 05-15-2019 HEMOGLOBIN AND HEMAT OCRIT, BLOOD Chante Jackson Work Phone: Start: 05-15-2019 Thromboplastin time partial plasma/whole blood Chante Jackson Work Phone: Start: 05-15-2019 Lipid 1996 panel - S alex or Plasma José Miguel Miranda Start: 05-14-2019 Standard ECG Samreen anguiano Work Phone: Start: 05-14-2019 Assay of folic acid serum Samreen Jacobson Work Phone: Start: 05-14-2019 Assay of troponin quantitative Tremayne Dubon Work Phone: Start: 05-14-2019 Blood count platelet automated Chante Jackson Work Phone: Start: 05-14-2019 Cyanocobalamin vitam in b-12 Samreen Jacobson Work Phone: Start: 05-14-2019 HEMOGLOBIN AND HEMAT OCRIT, BLOOD Chante Jackson Work Phone: Start: 05-14-2019 Prothrombin time Kriste n Manuel Work Phone: Start: 05-14-2019 Thromboplastin time partial plasma/whole blood Chante Jackson Work Phone: Start: 05-14-2019 Ct angiography chest w/contrast/noncontrast Chante Jackson Work Phone: Start: 05-14-2019 Assay of magnesium Vlad Dubon Work Phone: Start: 05-14-2019 Assay of troponin quantitative Tremayne Dubon Work Phone: Start: 05-14-2019 Radiologic exam ches t single view José Miguel Miranda Work Phone: Start: 05-14-2019 Assay of troponin quantitative José Miguel Miranda Work Phone: Start: 05-14-2019 Basic metabolic pane l calcium total José Miguel Miranda Work Phone: Start: 05-14-2019 CBC WITH DIFFERENTIAL S vivek Miranda Work Phone: Start: 05-14-2019 GLOMERULAR FILTRATION RATE José Miguel Miranda Work Phone: Start: 05-14-2019 Standard ECG José Miguel deleon Work Phone: Start: 03-29-2019 Adult depression scr eening assessment Hayden Herrera Plan of Treatment Date Care Activity Detail Author Start: 2048 RSV Immunization for Adults (1 - 1-dose 75+ series) RSV Immunization for Adults (1 - 1-dose 75+ series) [facility] Start: 08-12-2029 Diphtheria + pertuss is + tetanus vaccine (product) [facility] Start: 08-12-2029 Tetanus, diphtheria and acellular pertussis vaccination TDAP/TD ADULT [facility] Start: 12-29-2025 Fasting lipid profile [facility] Start: 01-28-2025 Influenza vaccination Influenz a Vaccine (Season Ended) [facility] Start: 10-02-2024 End: 10-02-2024 Patient encounter procedure 10/02/2024 11:00 AM EDT Office Visit [facility] [address] [facility] [place] [address] [place] [address] Joyce Hennessy MD [address] [facility] [place] [address] [place], [place] [id number] [facility] Start: 07-17-2024 End: 07-17-2024 Patient encounter procedure 07/17/2024 1:30 PM EST Office Visit [facility] [place] [address] [facility] [place] [address] [place] [phone] Joyce Hennessy MD [address] [facility] [place] [address] [place] [address] [facility] Orthopedics and [facility] Medicine - [place] Start: 06-22-2024 Fasting lipid profile LIPID SCREENIN G [facility] Start: 05-30-2024 Medicare Advantage Annual Wellness Visit Medicare Advantage Annual Wellness Visit [facility] Start: 05-15-2024 Fasting lipid profile LIPID SCREENIN G [facility] Start: 01-29-2024 COVID-19 Vaccine ( season) COVID-19 Vaccine ( season) [facility] Start: 01-29-2024 Influenza vaccination Influenza Vacc ine (#1) [facility] Start: 2023 Zoster Vaccines (1 of 2) Zoster Vacc kris (1 of 2) [facility] Start: 05-27-2022 Depression screening using PHQ-9 (Patient Health Questionnaire 9) score [facility] Start: 08-25-2021 End: 08-25-2021 ambulatory [facility] Start: 05-15-2021 Depression screening using PHQ-9 (Patient Health Questionnaire 9) score DEPRESSION SCREENING [facility] Start: 01-28-2021 Influenza vaccinatio n given [facility] Start: 10-24-2020 Adult depression screening assessment DEPRESSION SCREENING [facility] Start: 10-14-2020 End: 10-14-2020 Patient encounter procedure 10/14/2020 Office Visit Family Medicine Hayden Herrera, CHRISTINA [employer] [address] [place] [address] [phone] [facility] Start: 10-09-2020 End: 10-09-2020 Patient encounter procedure 10/09/2020 Office Visit Neurology Bethany Garcia MD [address] [place] [address] [phone] [facility] Start: 10-06-2020 End: 10-06-2020 Patient encounter procedure 10/06/2020 Office Visit Cardiology Alfred Prajapati MD [address] [place] [address] [phone] [facility] Start: 05-06-2020 End: 05-06-2020 Telemedicine 05/06/2020 Telemedicine Family Medicine Joseph Meyers APRN [employer] [address] [place] [address] [phone] [facility] Start: 04-22-2020 End: 04-22-2020 Office Visit 04/22/2020 Office Visit Dentistry Emeterio Abarca [facility] Start: 03-29-2020 Adult depression screening assessment [facility] Start: 01-29-2020 Influenza vaccinatio n given INFLUENZA VACCINE (#1) [facility] Start: 01-25-2020 End: 01-25-2020 Office Visit 01/25/2020 Office Visit Family Hayden Herrera APRN [employer] [address] [place] [address] [phone] [facility] Start: 09-27-2019 End: 09-27-2019 Office Visit 09/27/2019 Office Visit Family Hayden Herrera APRN [employer] [address] [place] [address] [phone] [facility] Start: 07-19-2019 End: 07-19-2019 Office Visit 07/19/2019 Office Visit Hayden Isbell APRN [employer] [address] [place] [address] [phone] [facility] Start: 06-07-2019 End: 06-07-2019 Office Visit 06/07/2019 Office Visit Hayden Isbell APRN [employer] [address] [place] [address] [phone] [facility] Start: 06-04-2019 End: 06-04-2019 Office Visit 06/04/2019 Office Visit Cardiology Thomas Dubon MD [address] [facility] [address] [place] [address] [phone] [facility] Start: 2018 Screening for malign ant neoplasm of colon [facility] Start: 1994 Tetanus, diphtheria and acellular pertussis vaccination TDAP/TD ADULT [facility] Start: 1992 DTaP/Tdap/Td Vaccine s (1 - Tdap) DTaP/Tdap/Td Vaccines (1 - Tdap) [facility] Start: 1992 Hepatitis B Vaccines (1 of 3 - 19+ 3-dose series) Hepatitis B Vaccines (1 of 3 - 19+ 3-dose series) [facility] Start: 1992 Pneumococcal Vaccine : 50+ Years (1 of 2 - PCV) Pneumococcal Vaccine: 50+ Years (1 of 2 - PCV) [facility] Start: 1991 ANNUAL WELLNESS VISIT ANNUAL WELLNES S VISIT [facility] Start: 1991 Diabetes mellitus screening Diabetes Screening [facility] Start: 1991 Hepatitis C screening Hepatitis C Sc reening [facility] Start: 1991 WELLNESS ANNUAL VISIT WELLNESS ANNUA L VISIT [facility] Start: 1991 [facility] Start: 1985 Depression Screening Depression Scre ening [facility] Start: 1978 [facility] Start: 1974 MMR Vaccines (1 of 1 - Standard series) MMR Vaccines (1 of 1 - Standard series) [facility] Start: 1973 Examination of skin Derm Melanoma Sk in Check [facility] Start: 1973 HIV screening HIV Screening [facility] Start: 1973 Lipid panel Lipid Panel [facility] Start: 1973 Screening for malign ant neoplasm of colon [facility] aPTT Coag (Bld) [Time] aPTT Lab Routine Daily 0500 until discontinued starting 05/15/2019, 2 completed [facility] Comment on above: Daily 0500 until dis continued starting 05/15/2019, 2 completed Basic metabolic 2000 panel - Serum or Plasma Basic metabolic panel Lab Routine Daily 0500 until discontinued starting 02/18/2021, 2 completed [employer] Work Phone: Comment on above: Daily 0500 until dis continued starting 02/18/2021, 2 completed Basic metabolic pane l aka Chem 8 Basic metabolic panel aka Chem 8 Lab Routine Daily 0500 until discontinued starting 09/20/2020, 10 completed [email or web address] Comment on above: Daily 0500 until dis continued starting 09/20/2020, 10 completed Blood culture x2 [employer] CBC panel - Blood by Automated count CBC without Differential Lab Routine Daily 0500 until discontinued starting 09/20/2020, 11 completed [email or web address] Comment on above: Daily 0500 until dis continued starting 09/20/2020, 11 completed Comprehensive metabo lic 2000 panel - Serum or Plasma Comprehensive metabolic panel Lab Routine Daily 0500 until discontinued starting 02/20/2021, 3 completed [email or web address] Comment on above: Daily 0500 until dis continued starting 02/20/2021, 3 completed COVID-19 (2019 NOVEL CORONAVIRUS) COVID-19 (2019 NOVEL CORONAVIRUS) Microbiology Routine Emesis 11/20/2019 4:42 PM EDT [email or web address] End: 09-21-2020 EEG awake or drowsy routine EEG awake or drowsy routine Neurology Routine One Time for 1 Occurrences starting 09/21/2020 until 09/21/2020 [email or web address] Comment on above: One Time for 1 Occur rences starting 09/21/2020 until 09/21/2020 End: 09-20-2020 Glucose [Mass/volume] in Serum or Plasma POCT glucose Point of Care Testing STAT One Time for 1 Occurrences starting 09/20/2020 until 09/20/2020 [email or web address] Comment on above: One Time for 1 Occur rences starting 09/20/2020 until 09/20/2020 End: 09-22-2020 Glucose [Mass/volume] in Serum or Plasma POCT glucose Point of Care Testing STAT One Time for 1 Occurrences starting 09/22/2020 until 09/22/2020 [email or web address] Comment on above: One Time for 1 Occur rences starting 09/22/2020 until 09/22/2020 Glucose [Mass/volume ] in Serum or Plasma POCT glucose Lab MYKE ONE TIME for 1 Occurrences starting 02/16/2021 [employer] Work Phone: Comment on above: ONE TIME for 1 Occur rences starting 02/16/2021 Hemoglobin and hematocrit every other day starting day 3 while on Heparin; discontinue when heparin discontinued Hemoglobin and hematocrit every other day starting day 3 while on Heparin; discontinue when heparin discontinued Lab Routine Every Other Day until discontinued starting 05/17/2019 [email or web address] Comment on above: Every Other Day unti l discontinued starting 05/17/2019 End: 11-19-2020 Hepatitis B core antibody, total Hepatitis B core antibody, total Lab Routine One Time for 1 Occurrences starting 11/19/2020 until 11/19/2020 [email or web address] Comment on above: One Time for 1 Occur rences starting 11/19/2020 until 11/19/2020 Hepatitis B core antibody, total Hepatitis B core antibody, total Lab Routine 11/19/2020 6:42 PM EDT [email or web address] Inpatient consult to Neurology [email or web address] End: 10-01-2020 Magnesium [Mass/volume] in Serum or Plasma Magnesium Level Lab Routine Tomorrow AM for 1 Occurrences starting 10/01/2020 until 10/01/2020 [email or web address] Comment on above: Tomorrow AM for 1 Oc currences starting 10/01/2020 until 10/01/2020 Magnesium [Mass/volu me] in Serum or Plasma Magnesium Lab Routine Daily 0500 until discontinued starting 02/20/2021, 3 completed [employer] Work Phone: Comment on above: Daily 0500 until dis continued starting 02/20/2021, 3 completed End: 04-27-2020 Magnesium, RBC Magnesium, RBC Lab Routine One Time for 1 Occurrences starting 04/27/2020 until 04/27/2020 [email or web address] Comment on above: One Time for 1 Occur rences starting 04/27/2020 until 04/27/2020 Magnesium, RBC Magnesium, RBC L ab Routine 04/27/2020 8:59 AM EST [email or web address] Nasotracheal suctioning Nasotrac heal suctioning Respiratory Care Routine As Needed until discontinued starting 09/27/2020 [email or web address] Comment on above: As Needed until disc ontinued starting 09/27/2020 End: 12-28-2020 Nuclear Stress Test - Pharmacological Nuclear Stress Test - Pharmacological Cardiac Services Obs [facility] One time imaging One time imaging for 1 Occurrences starting 12/28/2020 until 12/28/2020 [facility] Comment on above: One time imaging One time imaging for 1 Occurrences starting 12/28/2020 until 12/28/2020 End: 05-14-2019 Oxygen Therapy Nasal Cannula; Liters Per Minute: 3.0 LPM (2-5 Liters); Indications for O2 therapy: Chest pain; RT may modify oxygen administration per policy: Yes 2-5 liters. Titrate and maintain SaO2 > 90%. CP Protocol Oxygen Therapy Nasal Cannula; Liters Per Minute: 3.0 LPM (2-5 Liters); Indications for O2 therapy: Chest pain; RT may modify oxygen administration per policy: Yes 2-5 liters. Titrate and maintain SaO2 > 90%. CP Protocol Respiratory Care MYKE One Time for 1 Occurrences starting 05/14/2019 until 05/14/2019 [facility] Comment on above: One Time for 1 Occur rences starting 05/14/2019 until 05/14/2019 Oxygen Therapy RT ma y modify oxygen administration per policy: Yes and Titrate to maintain sats > 92% Oxygen Therapy RT may modify oxygen administration per policy: Yes and Titrate to maintain sats > 92% Respiratory Care Routine Continuous until discontinued starting 02/16/2021 [employer] [facility] Comment on above: Continuous until dis continued starting 02/16/2021 Platelet Count Every other day starting day 3 while on Heparin; discontinue when heparin discontinued Platelet Count Every other day starting day 3 while on Heparin; discontinue when heparin discontinued Lab Routine Every Other Day until discontinued starting 05/17/2019 [facility] [facility] Comment on above: Every Other Day unti l discontinued starting 05/17/2019 End: 04-26-2020 POCT glucose POCT glucose Point of Care Testing STAT One Time for 1 Occurrences starting 04/26/2020 until 04/26/2020 [facility] Comment on above: One Time for 1 Occur rences starting 04/26/2020 until 04/26/2020 End: 05-17-2019 Potassium [Moles/Vol] Potassium Level Lab Routine Tomorrow AM for 1 Occurrences starting 05/17/2019 until 05/17/2019 [facility] Comment on above: Tomorrow AM for 1 Oc currences starting 05/17/2019 until 05/17/2019 End: 02-23-2021 Potassium [Moles/volume] in Serum or Plasma Potassium Level Lab Routine Tomorrow AM for 1 Occurrences starting 02/23/2021 until 02/23/2021 [facility] Comment on above: Tomorrow AM for 1 Oc currences starting 02/23/2021 until 02/23/2021 End: 05-16-2019 Pulse Ox, Continuous Pulse Ox, Continuous Respiratory Care Routine Continuous until discontinued starting 05/15/2019 [facility] Comment on above: Continuous until dis continued starting 05/15/2019 Pulse oximetry, continuous Pulse oximetry, continuous Respiratory Care Routine Continuous until discontinued starting 09/20/2020 [employer] Comment on above: Continuous until dis continued starting 09/20/2020 Pulse oximetry, continuous Pulse oximetry, continuous Respiratory Care Routine Continuous until discontinued starting 02/16/2021 [facility] Work Phone: Comment on above: Continuous until dis continued starting 02/16/2021 End: 03-24-2022 Renal function panel Renal function panel Lab Routine Alcohol abuse 1 Occurrences starting 02/22/2021 until 03/24/2022 [facility] Comment on above: 1 Occurrences starti ng 02/22/2021 until 03/24/2022 Standard ECG [facility] Comment on above: As Needed until disc ontinued starting 05/14/2019 As Needed until disc ontinued starting 12/28/2020 End: 09-29-2020 Standard ECG EKG 12 lead ECG STAT One Time for 1 Occurrences starting 09/29/2020 until 09/29/2020 [facility] Comment on above: One Time for 1 Occur rences starting 09/29/2020 until 09/29/2020 Tissue exam [employer] [facility] Work Phone: Comment on above: Release Upon Orderin g for 1 Occurrences starting 06/20/2024, 1 completed End: 11-14-2019 Toxicology screen, urine Toxicology screen, urine Lab [facility] One Time for 1 Occurrences starting 11/14/2019 until 11/14/2019 [facility] Comment on above: One Time for 1 Occur rences starting 11/14/2019 until 11/14/2019 End: 05-24-2019 Troponin I.cardiac [Mass/Vol] Troponin I Lab Timed Now Then Every 3hr for 2 Occurrences starting 05/24/2019 until 05/24/2019 [facility] Comment on above: Now Then Every 3hr f or 2 Occurrences starting 05/24/2019 until 05/24/2019 End: 08-14-2019 Troponin I.cardiac [Mass/Vol] Troponin I Lab Timed Now Then Every 3hr for 2 Occurrences starting 08/14/2019 until 08/14/2019 [facility] Comment on above: Now Then Every 3hr f or 2 Occurrences starting 08/14/2019 until 08/14/2019 End: 11-14-2019 Troponin I.cardiac [Mass/Vol] Troponin I Lab Timed Now Then Every 3hr for 2 Occurrences starting 11/14/2019 until 11/14/2019, 1 completed [facility] Comment on above: Now Then Every 3hr f or 2 Occurrences starting 11/14/2019 until 11/14/2019, 1 completed XR Chest PA and late ral upright XR Chest PA and lat Imaging [facility] 08/14/2019 12:19 AM EDT [facility] XR Knee - right 1 or 2 Views XR knee 1 or 2 views right Imaging Routine Giant cell tumor of bone 10/23/2024 1:05 PM EDT [facility] Work Phone: Immunizations Immunization Date Immunization Notes Care Provider Fa sully 08-14-2019 diphtheria, tetanus toxoids and acellular pertussis vaccine, unspecified formulation [facility] 08-13-2019 tetanus toxoid, redu phong diphtheria toxoid, and acellular pertussis vaccine, adsorbed [facility] 03-29-2019 influenza, seasonal, injectable José Miguel Zerkle [facility] 03-29-2019 influenza virus vacc ine, unspecified formulation [facility] Payers Date Payer Category Payer Medicaid O [facility] VAHE [place] EDICAID ONLY [id number] 2024 Medicare HMO [employer]HE [place] [id number] 2024 Medicare [id number] 2024 Medicare [id number] 2024 Self-pay 2019 Medicaid [id number] 2018 Medicaid [id number] 2015 Medicaid [id number] 2015 Medicaid [id number]. [id number] 1973 Unknown [id number] 1973 Unknown [id number] .[id number] 1973 Unknown [id number] .840.1.150796.3.579.2.297 1973 Unknown [id number] 1973 Unknown [id number] .[id number] 1973 Unknown [id number] 2.16.840.1.635904.3.579.2.297 1973 Unknown [id number] 2.16.840.1.522484.3.579.2.297 1973 Unknown [id number] 2.16.840.1.203448.3.579.2.297 1973 Unknown [id number] 2.16.840.1.686853.3.579.2.297 1973 Unknown [id number] 2.16.840.1.922441.3.579.2.297 1973 Unknown [id number] 2.16.840.1.513430.3.579.2.297 1973 Unknown [id number] 2.16.840.1.539125.3.579.2.297 1973 Unknown [id number] 2.16840.1.287155.3.579.2.297 Unknown [id number] 2.16.840.1.032459.3.579.2.462 Unknown [id number] 2.16.840.1.108117.3.579.2.462 Unknown [id number] 2.16.840.1.791169.3.579.2.462 Unknown [id number] 2.16.840.1.304023.3.579.2.462 Unknown [id number] Social History Date Type Detail Facility Start: 05-14-2019 End: 06-19-2024 Tobacco smoking status NHIS Current every day smoker [facility] History of tobacco use Cigarette Smoker [facility] History of tobacco use Cigar Smoker [facility] Start: 05-14-2019 End: 06-21-2024 Cigarettes smoked current (pack per day) - Reported [facility] Start: 05-14-2019 End: 10-23-2024 Alcohol intake Current drinker of alcohol (finding) [facility] Start: 04-26-2016 Alcohol Comment social [facility] Start: 1975 Sex Assigned At Not on file [facility] Start: 12-28-2018 End: 11-14-2019 Tobacco use and exposure Never used [facility] Exposure to SARS-CoV -2 (event) Not sure [facility] Start: 04-26-2020 End: 05-01-2020 Alcohol intake Ex-drinker (finding) [facility] Start: 09-19-2020 Alcohol Comment 12 pack on Fridays [facility] Start: 05-27-2021 History SDOH Alcohol Frequency 3 [facility] Start: 05-27-2021 History SDOH Alcohol Std Drinks 98 [facility] Start: 05-27-2021 History SDOH Alcohol Binge 4 [facility] Start: 05-27-2021 History SDOH Alcohol Comment 6 [facility] Start: 05-27-2021 History SDOH Social Connections Membership 2 [facility] Start: 05-27-2021 History SDOH Physica l Activity DPW 0 [facility] Start: 05-27-2021 History SDOH Stress 1 [facility] Start: 05-27-2021 History SDOH Financial 5 [facility] Exposure to SARS-CoV -2 (event) Unable to assess [facility] Start: 06-19-2024 End: 06-21-2024 Humiliation, Afraid, Rape, and Kick questionnaire [HARK] [facility] Within the last year , have you been afraid of your partner or ex-partner? No [facility] How often to you hav e a drink containing alcohol? Never [facility] How many standard dr inks containing alcohol do you have on a typical day? Patient does not drink [facility] Start: 06-19-2024 Alcohol Comment once amonth [facility] Start: 03-23-2024 Sex Male (finding) [facility] (I/We) worried wheth er (my/our) food would run out before (I/we) got money to buy more. Never true [facility] Medical Equipment Procedure Code Equipment Code Equipment Origin al Text Equipment Identifier Dates Cement Bone Minto cos R 40g - [id number] Start: 06-20-2024 Cement Bone Minto cos R 40g - [id number] Start: 06-20-2024 3.5mm Va-Lcp Proximal Tibia Plate, [place] 117mm Right [id number] Start: 06-20-2024 Screw Crtx 3.5x2 6mm S-T - [id number] Start: 06-20-2024 Screw Crtx 3.5x2 8mm S-T - [id number] Start: 06-20-2024 Screw Lck Va 3.5x65mm S-T T15 - [id number] Start: 06-20-2024 Screw Lck Va 3.5x70mm S-T T15 - [id number] Start: 06-20-2024 Screw Lck Va 3.5x75mm S-T T15 - [id number] Start: 06-20-2024 Screw Lck Va 3.5x80mm S-T T15 - [id number] Start: 06-20-2024 Screw Crtx 3.5x2 4mm S-T - [id number] Start: 06-20-2024 Clinical Notes 09-19-2020 to 10-23-2024 Joyce Hennessy MD - 10/23/2024 10:00 AM Rosmery Hennessy MD - 07/17/2024 1:30 PM ESTTelephone Encounter - Darby Padgettton - 07/12/2024 10:07 AM Maribell Vital RN - 06/21/2024 5:53 PM EST Note Date & Type Note Facility 10-23-2024 History of Present illness Narrative [facility] - [address] [place] [phone] Dept: [phone] Dept Chief Complaint Patient presents with Follow-up Xray right knee SUBJECTIVE HPI Patient is a 49-year-old male who presents with his senior living aide for postoperative evaluation after open biopsy with curettage and 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 Of note, he does have a past medical history significant for epilepsy, Wernicke's encephalopathy, HTN, schizoaffective disorder, MD, TIA, PVD, COPD, depression/anxiety. He presents today in wheelchair but reports that he is able to walk with a walker for relatively long distances without significant discomfort. He does endorse occasional pain to his right knee which he localizes to the lateral proximal tibia after significant activity. He he is taking occasional Motrin for this with some relief. He denies paresthesias except over the area of the incision. He is very happy with his range of motion at this point and is very pleased with the results of his surgery so far. Patient Active Problem List Diagnosis Date Noted Neoplasm of right tibia 06/19/2024 Epilepsy complicating , antepartum, second trimester (HCC) Allergies[1] Family History[2] Medical History[3] Social History Socioeconomic History Marital status: Single Spouse name: Not on file Number of children: Not on file Years of education: Not on file Highest education level: Not on file Occupational History Not on file Tobacco Use Smoking status: Every Day Current packs/day: 0.50 Types: Cigarettes Smokeless tobacco: Not on file Vaping Use Vaping status: Never Used Substance and Sexual Activity Alcohol use: Yes Comment: once amonth Drug use: Yes Frequency: 1.0 times per week Types: Marijuana Sexual activity: Yes Other Topics Concern Not on file Social History Narrative Not on file Social Drivers of Health Financial Resource Strain: Not on file Food Insecurity: No Food Insecurity (06/21/2024) Hunger Vital Sign Worried About Running Out of Food in the Last Year: Never true Ran Out of Food in the Last Year: Never true Transportation Needs: No Transportation Needs (06/21/2024) PRAPARE - Transportation Lack of Transportation (Medical): No Lack of Transportation (Non-Medical): No Physical Activity: Not on file Stress: Not on file Social Connections: Not on file Intimate Partner Violence: Not At Risk (06/21/2024) Humiliation, Afraid, Rape, and Kick questionnaire Fear of Current or Ex-Partner: No Emotionally Abused: No Physically Abused: No Sexually Abused: No Housing Stability: Low Risk (06/21/2024) Housing Stability Vital Sign Unable to Pay for Housing in the Last Year: No Number of Times Moved in the Last Year: 0 Homeless in the Last Year: No Surgical History[4] Current Medications[5] Review of Systems Musculoskeletal: Positive for arthralgias, gait problem and myalgias. Remains in facility, amb with walker in PT in wheelchair for visit today Pain to right patella full ROM to knee All other systems reviewed and are negative. OBJECTIVE Vitals: 10/23/24 1018 BP: 113/79 BP Location: Left arm Patient Position: Sitting BP Cuff Size: Adult Pulse: 74 Weight: 72.6 kg (160 lb) Height: 1.626 m (5' 4) Physical Exam Physical Exam Vitals and nursing note reviewed. Constitutional: Appearance: Normal appearance. Cardiovascular: Rate and Rhythm: Normal rate. Pulmonary: Effort: Pulmonary effort is normal. Skin: General: Skin is warm and dry. Neurological: General: No focal deficit present. Mental Status: He is alert and oriented to person, place, and time. Psychiatric: Mood and Affect: Mood normal. Behavior: Behavior normal. Focused orthopedic examination: Patient sitting comfortably in wheelchair at the time of examination. He does have a well-healed curvilinear laterally based incision over the left knee. There is no evidence of open wound, drainage, significant erythema. There is no significant effusion to the left knee. Passive range of motion is 0-1 30, active range of motion is 0-1 30. Knee is overall ligamentously stable to varus valgus stress with solid endpoint appreciated on Nick testing. Sensation intact to light touch throughout all the dermatomal distributions of the right lower extremity. 5/5 strength to HF, KE, GSC, TA, EHL. Limb is warm and dry XRAY INTERPRETATION 2 view x-ray of the right knee was obtained today and independently reviewed, and compared with 2 view x-ray of the right knee obtained 07/17/2024. There is evidence of pmma present to the lateral proximal tibia with orthopedic hardware in place. Hardware appears well-fixed without evidence of loosening or failure. There is no lucency appreciated about the margins of the allograft. The joint is reduced, there is no evidence of acute osseous finding or abnormality ASSESSMENT 1. Giant cell tumor of bone 49-year-old male with right proximal tibia giant cell tumor, status post open biopsy and cement augmentation right proximal tibia neoplasm PLAN We did have an extended conversation with both the patient and his aide today regarding his continued postoperative management, expectations, and likely continued progression. He is overall doing extremely well and may continue to bear weight as tolerated on his right lower extremity. We did encourage him to continue taking [id number] NSAIDs as needed for pain, as well as rest, ice, elevation as needed. Would like to have him obtain a two-view x-ray of the right knee in 4 months and submitted for evaluation no formal outpatient appointment will be needed at that point. However, patient or his caregivers may reach out to the orthopedic office in the interim if any questions or concerns arise, or we are happy to see him back in office if needed. No follow-ups on file. Voice recognition was used for portions of this note and although it was reviewed prior to signing some incorrect words or phrases could be present. Electronically signedby Joyce Hennessy MD on 10/24/2024 at 10:15 PM [1] No Known Allergies [2] No family history on file. [3] Past Medical History: Diagnosis Date Alcoholic dementia (HCC) Arthritis Bone lesion right tibia Convulsions (HCC) Depression Encephalopathy Epilepsy (HCC) Myocardial infarct, old [4] History reviewed. No pertinent surgical history. [5] Current Outpatient Medications Medication Sig Dispense Refill acetaminophen (Tylenol) 325 MG tablet Take 650 mg by mouth. aspirin 81 MG EC tablet Take 1 tablet (81 mg) by mouth 2 times daily. 60 tablet 11 atorvastatin (Lipitor) 80 MG tablet Take 80 mg by mouth daily. carboxymethylcellulose (Refresh Plus) 0.5 % ophthalmic solution 1 drop if needed for dry eyes. cholecalciferol (Vitamin D-3) 1.25 MG (69786 UT) capsule Take 50,000 Units by mouth 1 (one) time per week. cholecalciferol (Vitamin D3) 1.25 MG (08939 UT) tablet Take 50,000 Units by mouth 1 (one) time per week. clopidogrel (Plavix) 75 MG tablet Take by mouth daily. divalproex (Depakote) 250 MG EC tablet Take 250 mg by mouth 3 times daily. Do not crush, chew, or split. fenofibrate (Tricor) 145 MG tablet Take 145 mg by mouth daily. folic acid (Folvite) 1 MG tablet Take by mouth daily. haloperidol (Haldol) 0.5 MG tablet levETIRAcetam (Keppra) 750 MG tablet Take by mouth. LORazepam (Ativan) 1 MG tablet Take 1 mg by mouth. magnesium hydroxide (Milk of Magnesia) 400 MG/5ML suspension Take by mouth Nightly. magnesium oxide (Mag-Ox) 400 mg tablet 400 mg daily. nicotine (Nicotrol) 10 MG inhaler Inhale 1 puff if needed for smoking cessation. traMADol (Ultram) 50 MG tablet Take by mouth. traZODone (Desyrel) 100 MG tablet Take 100 mg by mouth Nightly. tuberculin (Tubersol) 5 UNIT/0.1ML injection Inject 5 Units into the skin Once. traZODone (Desyrel) 50 MG tablet Take 50 mg by mouth Nightly. No current facility-administered medications for this visit. documented in this encounter [facility] 07-17-2024 History of Present illness Narrative [facility] - [address] [place] [phone] Dept: [phone] Dept Chief Complaint Patient presents with Post-op DOS 06/20/24 1. Open Biopsy Right Proximal Tibia adding approximately 20 minutes to the case confirming giant cell tumor 2. Curettage and cement augmentation Right Proximal tibia 3. 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 He has essentially no complaints but he has been reluctant to walk but the most important factor limiting that is that he is in a senior living and does not have a lot of help or confidence or any walking aids surprisingly. He has no issues with his wound. 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 Past Medical History: Diagnosis Date Alcoholic dementia (HCC) Arthritis Bone lesion right tibia Convulsions (HCC) Depression Encephalopathy Epilepsy (HCC) Myocardial infarct, old Social History Socioeconomic History Marital status: Single Spouse name: Not on file Number of children: Not on file Years of education: Not on file Highest education level: Not on file Occupational History Not on file Tobacco Use Smoking status: Every Day Current packs/day: 0.50 Types: Cigarettes Smokeless tobacco: Not on file Vaping Use Vaping status: Never Used Substance and Sexual Activity Alcohol use: Yes Comment: once amonth Drug use: Yes Frequency: 1.0 times per week Types: Marijuana Sexual activity: Yes Other Topics Concern Not on file Social History Narrative Not on file Social Drivers of Health Financial Resource Strain: Not on file Food Insecurity: No Food Insecurity (06/21/2024) Hunger Vital Sign Worried About Running Out of Food in the Last Year: Never true Ran Out of Food in the Last Year: Never true Transportation Needs: No Transportation Needs (06/21/2024) PRAPARE - Transportation Lack of Transportation (Medical): No Lack of Transportation (Non-Medical): No Physical Activity: Not on file Stress: Not on file Social Connections: Not on file Intimate Partner Violence: Not At Risk (06/21/2024) Humiliation, Afraid, Rape, and Kick questionnaire Fear of Current or Ex-Partner: No Emotionally Abused: No Physically Abused: No Sexually Abused: No Housing Stability: Low Risk (06/21/2024) Housing Stability Vital Sign Unable to Pay for Housing in the Last Year: No Number of Times Moved in the Last Year: 0 Homeless in the Last Year: No History reviewed. No pertinent surgical history. Current Outpatient Medications Medication Sig Dispense Refill acetaminophen (Tylenol) 325 MG tablet Take 650 mg by mouth. aspirin 81 MG EC tablet Take 1 tablet (81 mg) by mouth 2 times daily. 60 tablet 11 atorvastatin (Lipitor) 80 MG tablet Take 80 mg by mouth daily. carboxymethylcellulose (Refresh Plus) 0.5 % ophthalmic solution 1 drop if needed for dry eyes. cholecalciferol (Vitamin D-3) 1.25 MG (41356 UT) capsule Take 50,000 Units by mouth 1 (one) time per week. cholecalciferol (Vitamin D3) 1.25 MG (84076 UT) tablet Take 50,000 Units by mouth 1 (one) time per week. clopidogrel (Plavix) 75 MG tablet Take by mouth daily. divalproex (Depakote) 250 MG EC tablet Take 250 mg by mouth 3 times daily. Do not crush, chew, or split. fenofibrate (Tricor) 145 MG tablet Take 145 mg by mouth daily. folic acid (Folvite) 1 MG tablet Take by mouth daily. levETIRAcetam (Keppra) 750 MG tablet Take by mouth. LORazepam (Ativan) 1 MG tablet Take 1 mg by mouth. magnesium hydroxide (Milk of Magnesia) 400 MG/5ML suspension Take by mouth Nightly. magnesium oxide (Mag-Ox) 400 mg tablet 400 mg daily. nicotine (Nicotrol) 10 MG inhaler Inhale 1 puff if needed for smoking cessation. traMADol (Ultram) 50 MG tablet Take by mouth. traZODone (Desyrel) 100 MG tablet Take 100 mg by mouth Nightly. traZODone (Desyrel) 50 MG tablet Take 50 mg by mouth Nightly. tuberculin (Tubersol) 5 UNIT/0.1ML injection Inject 5 Units into the skin Once. No current facility-administered medications for this visit. Review of Systems Musculoskeletal: Positive for gait problem. RIGHT PROXIMAL TIBIA INCISION HEALED WELL FULL ROM RIGHT KNEE Has not started PT in facility yet will discuss at appt today And send prescription back All other systems reviewed and are negative. OBJECTIVE Vitals: 07/17/24 1333 BP: 105/65 BP Location: Left arm Patient Position: Sitting BP Cuff Size: Small adult Pulse: 69 Weight: 160 lb (72.6 kg) Height: 5' 4 (1.626 m) Physical Exam Physical Exam Vitals and nursing note reviewed. Constitutional: Appearance: Normal appearance. Cardiovascular: Rate and Rhythm: Normal rate. Pulmonary: Effort: Pulmonary effort is normal. Skin: General: Skin is warm and dry. Neurological: General: No focal deficit present. Mental Status: He is alert and oriented to person, place, and time. Psychiatric: Mood and Affect: Mood normal. Behavior: Behavior normal. Incisions well-healed no signs of infection Octavia removed without problem. Knee range of motion is surprisingly good maybe lacks a few degrees of full extension but has full flexion. No effusion is noted. XRAY INTERPRETATION X-rays were obtained of the right proximal tibia shows excellent filling of the cavity no persistent giant cell tumor remains plate is well-fixed no articular cartilage breakdown although the tumor did distend up to subchondral bone in some areas. No sign of pathologic fracture or other concerning features on radiographs. ASSESSMENT 1. Impending pathologic fracture Giant cell tumor right proximal tibia status post aggressive curettage and cementation 1 20-25 PLAN He is doing very well. I would allow him continue weightbearing as tolerated work on range of motion we did write for physical therapy in hopes that he can get some ambulatory practice in his senior living. He is already taking Ultram for pain through the facility. I plan to see him back in 3 months with x-rays to make sure is no evidence of local recurrence and see how he is doing clinically. No follow-ups on file. Voice recognition was used for portions of this note and although it was reviewed prior to signing some incorrect words or phrases could be present. Electronically signedby Shanice Rowan RN on 07/17/2024 at 1:49 PM documented in this encounter [facility] 07-12-2024 Telephone encounter Note Right faxed tissue exam report and op report to [facility] [facility] 07-12-2024 Miscellaneous Notes Right faxed tissue exam report and op report to Ana at [facility]. Ana called asking for the biopsy results and any surgical notes to be faxed to her at [phone]. Please advise. Returned call to Anahy OK to remove octavia 07/12/24 he has a PO appt with Dr Hennessy 07/17/24 will get an xray at this visit Ok to apply steri strips to incision if any concerns Anahy verbalized understanding Ana (nurse) from [facility] called to see if Yonathan needs his octavia removed before his 07/17 post op appointment. She can be reached at [phone], she does not have an extension, just ask for Ana. documented in this encounter [facility] 07-11-2024 Telephone encounter Note Ana called asking for the biopsy results and any surgical notes to be faxed to her at [phone]. Please advise. [facility] 07-11-2024 Miscellaneous Notes Ana called asking for the biopsy results and any surgical notes to be faxed to her at [phone]. Please advise. Returned call to Tyrone OK to remove octavia 07/12/24 he has a PO appt with Dr Hennessy 07/17/24 will get an xray at this visit Ok to apply steri strips to incision if any concerns Anahy verbalized understanding Ana (nurse) from [facility] called to see if Yonathan needs his octavia removed before his 07/17 post op appointment. She can be reached at [phone], she does not have an extension, just ask for Ana. documented in this encounter [facility] 06-27-2024 Telephone encounter Note Returned call to Tyrone OK to remove octavia 07/12/24 he has a PO appt with Dr Hennessy 07/17/24 will get an xray at this visit Ok to apply steri strips to incision if any concerns Anahy verbalized understanding [facility] 06-27-2024 Telephone encounter Note Ana (nurse) from [facility] called to see if Yonathan needs his octavia removed before his 07/17 post op appointment. She can be reached at [phone], she does not have an extension, just ask for Ana. [facility] 06-21-2024 Nurse Note Patient picked up for discharge to [facility] by stretcher. Discharge paperwork folder handed to transportation staff, prescriptions included in folder. [facility] 06-21-2024 Nurse Note Patient picked up for discharge to [facility] by stretcher. Discharge paperwork folder handed to transportation staff, prescriptions included in folder. Nursing phone report called to nurse Ayaz at [facility] documented in this encounter [facility] 06-21-2024 Nurse Note Nursing phone report called to nurse Ayaz at [facility]). [facility] 06-21-2024 Note Formatting of this n ote might be different from the original. Arranged transport to [facility] with pickup at 4:30pm. Notified snf of transport time via phone call at [phone] as they are not in [facility] per [facility]. Klaudia at the facility states she is agreeable to pt's return and will pass on the information to pt's care providers. Notified RN, community health representative and TCC of transport time. Left voice mail for pt's mother Shanice with discharge time and provided Social Work and floor contact numbers in case she has questions. [facility] 06-21-2024 Note Formatting of this n ote might be different from the original. Arranged transport to [facility] with pickup at 4:30pm. Notified snf of transport time via phone call at [phone] as they are not in [facility] per [facility]. Klaudia at the facility states she is agreeable to pt's return and will pass on the information to pt's care providers. Notified RN, community health representative and TCC of transport time. Left voice mail for pt's mother Shanice with discharge time and provided Social Work and floor contact numbers in case she has questions. [facility] 06-21-2024 Miscellaneous Notes Arranged transport to [facility] with pickup at 4:30pm. Notified snf of transport time via phone call at [phone] as they are not in [facility] per [facility]. Klaudia at the facility states she is agreeable to pt's return and will pass on the information to pt's care providers. Notified RN, community health representative and TCC of transport time. Left voice mail for pt's mother Shanice with discharge time and provided Social Work and floor contact numbers in case she has questions. SW consult w / assigned unit MAYRA Pemberton and informed of MAYRA consult. Zhanna reported Pt from Nursing facility where he will be returning. Zhanna plan to follow up w/ Pt needs. Med Rec Faxed to [facility] Ciara per SOFTWARE INSTALLER request Electronically signed by Francie Gunter [facility], 06-21-2024 10:17AM Message received from Ortho that patient will likely be ready to return to [facility]) today and requests for auth to be started for that process. Noted return referral in [facility] sent yesterday without response. Call to facility . 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 There person I spoke with was unsure if anyone int he building had access to [facility] and asked for paperwork to be faxed to: [phone]. Ortho updated. Problem: Knowledge Deficit Goal: Patient/family/caregiver demonstrates understanding of disease process, treatment plan, medications, and discharge instructions Outcome: Progressing Problem: Potential for Compromised Skin Integrity Goal: Skin Integrity is Maintained or Improved Outcome: Progressing Goal: Nutritional status is improving Outcome: Progressing Problem: Urinary Incontinence Goal: Perineal skin integrity is maintained or improved Outcome: Progressing SW consult: No reason listed Covering SW reviewed chart. SW met w /Pt, introduced self, and inquired upon Pt's living arrangements. Pt responded with pleasant demeanor and stated he is not sure where he lives. Pt did not present as a good historian. SW plan to follow up w / TCC and / or assigned unit SW. SW following. Patient sated he did not want anyone called to updated Return Referral placed to [facility] via [facility] per [facility] request. Await review and response regarding ability to accept. TCC notified. Electronically signed by LUCAS Gunter, 06-20-2024 at 12:41 PM Operative Report Patient Name: Yonathan Fernandez Date of : 1975 Date of Surgery: 06/20/24 Pre-operative diagnosis: Right proximal tibia neoplasm, impending fracture Post-operative diagnosis: Same Procedure(s): Open Biopsy Right Proximal Tibia 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 Compared to a standard curettage of a proximal tibial tumor this required double the time of resection of the aggressive benign tumor. Surgeon: Joyce Hennessy M.D. Principal Mechanical Engineer(s): Neville PGY-5, Abdullahi PGY-3 Anesthesia: general EBL: Minimal IVF: Crystalloid Medications: Two grams of Cefazolin were given. Implants: Synthes proximal tibia plate, cement augmentation Clinical History/Indication for Surgery The patient is a 49 y.o. year old male who was presents for open biopsy, curettage, cement augmentation and prophylactic plating right proximal tibia. Typical indications for surgery were reviewed and operative excision and biopsy was recommended. Risks of surgery in general were reviewed including, but not limited to, infection, need for additional procedures, painful or prominent scars, damage to normal structures as well as medical complications such as MD, stroke, PE, DVT, and even . Pt was given opportunity to ask questions and consider his options. He ultimately elected to proceed with surgery. No guarantees were given or implied. Operative Narration The patient was identified in the pre-operative holding area. The surgical site was identified and marked. Informed consent was obtained. The patient was then brought to the operating room and placed supine on the operating table. Anesthesia was administered and care of the head, neck, and airway was maintained by the anesthesia staff throughout the entire procedure. All bony prominences were identified and padded. A tourniquet was applied to the operative extremity. The operative extremity was then prepped and draped in the usual sterile fashion. A surgical timeout was performed. Antibiotics were confirmed to have been given. The tourniquet was inflated. An anterolateral exposure to the proximal tibia was made incising skin and subcutaneous tissues down to the fascia. The fascia over the anterior compartment was incised and carried proximally over Gerdy's tubercle and into the iliotibial band. Care was taken to not violate the joint capsule. This layer was elevated posteriorly along with the tibialis anterior muscle off the lateral aspect of the tibia. The same layer was also elevated anteriorly until the lateral proximal tibia was fully exposed. A corticotomy was created in order to obtain access to right proximal tibial mass. This was then curetted and sent for frozen on moist Telfa. Attending surgeon remained scrubbed in and present within the room throughout the entire procedure. 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 A sub-meniscal arthrotomy was then created to allow for intra-articular exposure. The meniscus was examined and found to be intact. The articular cartilage was also smooth and largely intact without significant defect. 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 Remaining sample was sent for permanent. Following adequate curettage, the bone void was irrigated and reevaluated for further need for curettage. Once felt that all tumor had been removed, we then proceeded with burring the cortical edges of the entire bone void. A Bovie was then utilized in order to burn entire bone void. We then again confirmed intact cartilage intra-articularly. A lateral plate was applied with a single distal cortical screw in order to hold plate in place with K wires proximal. The plate position was confirmed on imaging and felt to be appropriate. We then proceeded with drilling the proximal locking screws including the kickstand screw. All screws lengths were measured and this was recorded on the back table. The cortical screw was then loosened and the plate spun 90 degrees in order to gain access to corticotomy site. The bone void was then filled with 2 batches of Palacos cement and the plate replaced and refaxed with cortical screw and appropriate locking screws. 2 additional cortical screws were placed distally. Final imaging was obtained and saved. The arthrotomy was then repaired with 0 Vicryl suture in a mattress fashion Copious irrigation was performed and closure performed in a layered fashion including fascia and skin. A sterile compressive dressing was then applied. Once the patient was awakened from anesthesia, they were transported to the PACU in stable condition, having tolerated surgery well with no obvious complications. Postoperative Plan -Weight bearing: WBAT, ok for ROM -PT/OT -Ice and elevate operative extremity -Preliminary pathology: GCT. Permanent pathology pending. -DVT prophylaxis: ASA 81BID to begin 06/21 -Pain control prescription written -F/u OP w/ Dr. Hennessy in 2-3 weeks, discharge instructions in AVS -Ortho primary This operative report was prepared and signed by Jocelyn Lozada MD at 06/20/24, 12:44 PM Problem: Knowledge Deficit Goal: Patient/family/caregiver demonstrates understanding of disease process, treatment plan, medications, and discharge instructions Outcome: Progressing Problem: Potential for Compromised Skin Integrity Goal: Skin Integrity is Maintained or Improved Outcome: Progressing Goal: Nutritional status is improving Outcome: Progressing documented in this encounter [facility] 06-21-2024 Note Orthopedic Progress Note Name: Yonathan Fernandez Date:06/21/2024 Attending:Joyce Hennessy MD Subjective CHIEF COMPLAINT: s/p right proximal tibia open biopsy confirming giant cell tumor, with curettage/cement augmentation and prophylactic plate 06/20/2024 HPI: Patient is seen resting in bed, pleasant and somewhat confused on evaluation. Patient denies any significant pain into his right lower extremity. He reports that he is planning to order breakfast soon. Discussed with patient plan to work with PT today and to follow-up as an outpatient with Dr. Hennessy JAQUELINE in 2-3 weeks. Discussed with patient plan for return to his facility today, patient is amendable to this plan Objective PAST MEDICAL HISTORY Patient Active Problem List Diagnosis Epilepsy complicating , antepartum, second trimester (HCC) Neoplasm of right tibia PAST SURGICAL HISTORY History reviewed. No pertinent surgical history. HOME MEDICATIONS Prior to Admission medications Medication Sig Start Date End Date Taking? Authorizing Provider acetaminophen (Tylenol) 325 MG tablet Take 650 mg by mouth. Historical ProviderMD aspirin 81 MG EC tablet Take 1 tablet (81 mg) by mouth 2 times daily. 06/20/24 06/20/25 Jocelyn Lozada MD atorvastatin (Lipitor) 80 MG tablet Take 80 mg by mouth daily. Historical ProviderMD carboxymethylcellulose (Refresh Plus) 0.5 % ophthalmic solution 1 drop if needed for dry eyes. Historical ProviderMD cholecalciferol (Vitamin D-3) 1.25 MG (84193 UT) capsule Take 50,000 Units by mouth 1 (one) time per week. Historical ProviderMD cholecalciferol (Vitamin D3) 1.25 MG (68005 UT) tablet Take 50,000 Units by mouth 1 (one) time per week. Historical ProviderMD clopidogrel (Plavix) 75 MG tablet Take by mouth daily. Historical ProviderMD divalproex (Depakote) 250 MG EC tablet Take 250 mg by mouth 3 times daily. Do not crush, chew, or split. Historical ProviderMD fenofibrate (Tricor) 145 MG tablet Take 145 mg by mouth daily. Historical ProviderMD folic acid (Folvite) 1 MG tablet Take by mouth daily. Historical ProviderMD levETIRAcetam (Keppra) 750 MG tablet Take by mouth. Historical ProviderMD LORazepam (Ativan) 1 MG tablet Take 1 mg by mouth. Historical ProviderMD magnesium hydroxide (Milk of Magnesia) 400 MG/5ML suspension Take by mouth Nightly. Historical ProviderMD magnesium oxide (Mag-Ox) 400 mg tablet 400 mg daily. Historical ProviderMD nicotine (Nicotrol) 10 MG inhaler Inhale 1 puff if needed for smoking cessation. Historical ProviderMD oxyCODONE-acetaminophen (Percocet) 5-325 MG tablet Take 1 tablet by mouth every 6 hours as needed for severe pain (7-10) for up to 7 days. 06/21/24 06/28/24 Leny Esquivel PA-C traMADol (Ultram) 50 MG tablet Take by mouth. Historical Provider, traZODone (Desyrel) 100 MG tablet Take 100 mg by mouth Nightly. Historical Provider, traZODone (Desyrel) 50 MG tablet Take 50 mg by mouth Nightly. Historical Provider, tuberculin (Tubersol) 5 UNIT/0.1ML injection Inject 5 Units into the skin Once. Historical Provider, aspirin 81 MG chewable tablet Chew 1 tablet (81 mg) daily. 06/20/24 06/20/24 Jocelyn Lozada MD aspirin 81 MG chewable tablet Chew 1 tablet (81 mg) 2 times daily. 06/20/24 06/20/24 Jocelyn Lozada MD aspirin 81 MG EC tablet Take 81 mg by mouth daily. 06/20/24 Historical Provider, aspirin 81 MG EC tablet Take 1 tablet (81 mg) by mouth daily. 06/20/24 06/20/24 Jocelyn Lozada MD aspirin 81 MG EC tablet Take 1 tablet (81 mg) by mouth 2 times daily. 06/20/24 06/20/24 Jocelyn Lozada MD oxyCODONE-acetaminophen (Percocet) 5-325 MG tablet Take 1 tablet by mouth every 6 hours as needed for severe pain (7-10) for up to 7 days. 06/20/24 06/21/24 Jocelyn Lozada MD CURRENT HOSPITAL MEDICATIONS Current Facility-Administered Medications: acetaminophen (Tylenol) tablet 650 mg, 650 mg, Oral, q6h, Jocelyn Lozada MD, 650 mg at 06/21/24 0919 aspirin EC tablet 81 mg, 81 mg, Oral, BID, Jocelyn Lozada MD, 81 mg at 06/21/24 0842 atorvastatin (Lipitor) tablet 80 mg, 80 mg, Oral, Daily, Jocelyn Lozada MD, 80 mg at 06/20/24 2124 divalproex (Depakote) EC tablet 250 mg, 250 mg, Oral, TID, Jocelyn Lozada MD, 250 mg at 06/21/24 0844 fenofibrate (Triglide) tablet 160 mg, 160 mg, Oral, Daily, Jocelyn Lozada MD, 160 mg at 06/21/24 0844 gabapentin (Neurontin) capsule 300 mg, 300 mg, Oral, Nightly, Jocelyn Lozada MD, 300 mg at 06/20/242122 HYDROmorphone (Dilaudid) injection 0.25 mg, 0.25 mg, IntraVENous, q4h PRN OR HYDROmorphone (Dilaudid) injection 0.5 mg, 0.5 mg, IntraVENous, q4h PRN, Jocelyn Lozada MD, 0.5 mg at 06/21/24 0516 levETIRAcetam (Keppra) tablet 750 mg, 750 mg, Oral, BID, Jocelyn Lozada MD, 750 mg at 06/21/24 0844 Lidocaine 4 % patch 1 patch, 1 patch, Topical, Daily, Jocelyn Lozada MD methocarbamol (Robaxin) tablet 1,000 mg, 1,000 mg, Oral, q8h PRN, Jocelyn Lozada MD naloxone (Narcan) injecti (more content not included)... [facility] 06-21-2024 History of Present illness Narrative Images from the original note were not included. Orthopedic Progress Note Name: Yonathan Fernandez Date:06/21/2024 Attending:Joyce Hennessy MD Subjective CHIEF COMPLAINT: s/p right proximal tibia open biopsy confirming giant cell tumor, with curettage/cement augmentation and prophylactic plate 06/20/2024 HPI: Patient is seen resting in bed, pleasant and somewhat confused on evaluation. Patient denies any significant pain into his right lower extremity. He reports that he is planning to order breakfast soon. Discussed with patient plan to work with PT today and to follow-up as an outpatient with Dr. Hennessy JAQUELINE in 2-3 weeks. Discussed with patient plan for return to his facility today, patient is amendable to this plan Objective PAST MEDICAL HISTORY Patient Active Problem List Diagnosis Epilepsy complicating , antepartum, second trimester (HCC) Neoplasm of right tibia PAST SURGICAL HISTORY History reviewed. No pertinent surgical history. HOME MEDICATIONS Prior to Admission medications Medication Sig Start Date End Date Taking? Authorizing Provider acetaminophen (Tylenol) 325 MG tablet Take 650 mg by mouth. Historical Provider, aspirin 81 MG EC tablet Take 1 tablet (81 mg) by mouth 2 times daily. 06/20/24 06/20/25 Jocelyn Lozada MD atorvastatin (Lipitor) 80 MG tablet Take 80 mg by mouth daily. Historical ProviderMD carboxymethylcellulose (Refresh Plus) 0.5 % ophthalmic solution 1 drop if needed for dry eyes. Historical ProviderMD cholecalciferol (Vitamin D-3) 1.25 MG (86779 UT) capsule Take 50,000 Units by mouth 1 (one) time per week. Historical ProviderMD cholecalciferol (Vitamin D3) 1.25 MG (28220 UT) tablet Take 50,000 Units by mouth 1 (one) time per week. Historical ProviderMD clopidogrel (Plavix) 75 MG tablet Take by mouth daily. Historical ProviderMD divalproex (Depakote) 250 MG EC tablet Take 250 mg by mouth 3 times daily. Do not crush, chew, or split. Historical ProviderMD fenofibrate (Tricor) 145 MG tablet Take 145 mg by mouth daily. Historical ProviderMD folic acid (Folvite) 1 MG tablet Take by mouth daily. Historical Provider, levETIRAcetam (Keppra) 750 MG tablet Take by mouth. Historical Provider, LORazepam (Ativan) 1 MG tablet Take 1 mg by mouth. Historical ProviderMD magnesium hydroxide (Milk of Magnesia) 400 MG/5ML suspension Take by mouth Nightly. Historical ProviderMD magnesium oxide (Mag-Ox) 400 mg tablet 400 mg daily. Historical Provider, nicotine (Nicotrol) 10 MG inhaler Inhale 1 puff if needed for smoking cessation. Historical ProviderMD oxyCODONE-acetaminophen (Percocet) 5-325 MG tablet Take 1 tablet by mouth every 6 hours as needed for severe pain (7-10) for up to 7 days. 06/21/24 06/28/24 Leny Esquivel PA-C traMADol (Ultram) 50 MG tablet Take by mouth. Historical ProviderMD traZODone (Desyrel) 100 MG tablet Take 100 mg by mouth Nightly. Historical ProviderMD traZODone (Desyrel) 50 MG tablet Take 50 mg by mouth Nightly. Historical ProviderMD tuberculin (Tubersol) 5 UNIT/0.1ML injection Inject 5 Units into the skin Once. Historical Provider, aspirin 81 MG chewable tablet Chew 1 tablet (81 mg) daily. 06/20/24 06/20/24 Jocelyn Lozada MD aspirin 81 MG chewable tablet Chew 1 tablet (81 mg) 2 times daily. 06/20/24 06/20/24 Jocelyn Lozada MD aspirin 81 MG EC tablet Take 81 mg by mouth daily. 06/20/24 Jose Huitron MD aspirin 81 MG EC tablet Take 1 tablet (81 mg) by mouth daily. 06/20/24 06/20/24 Jocelyn Lozada MD aspirin 81 MG EC tablet Take 1 tablet (81 mg) by mouth 2 times daily. 06/20/24 06/20/24 Jocelyn Lozada MD oxyCODONE-acetaminophen (Percocet) 5-325 MG tablet Take 1 tablet by mouth every 6 hours as needed for severe pain (7-10) for up to 7 days. 06/20/24 06/21/24 Jocelyn Lozada MD CURRENT HOSPITAL MEDICATIONS Current Facility-Administered Medications: acetaminophen (Tylenol) tablet 650 mg, 650 mg, Oral, q6h, Jocelyn Lozada MD, 650 mg at 06/21/24 0919 aspirin EC tablet 81 mg, 81 mg, Oral, BID, Jocelyn Lozada MD, 81 mg at 06/21/24 0842 atorvastatin (Lipitor) tablet 80 mg, 80 mg, Oral, Daily, Jocelyn Lozada MD, 80 mg at 06/20/24 212 divalproex (Depakote) EC tablet 250 mg, 250 mg, Oral, TID, Jocelyn Lozada MD, 250 mg at 06/21/24 0844 fenofibrate (Triglide) tablet 160 mg, 160 mg, Oral, Daily, Jocelyn Lozada MD, 160 mg at 06/21/24 0844 gabapentin (Neurontin) capsule 300 mg, 300 mg, Oral, Nightly, Jocelyn Lozada MD, 300 mg at 06/20/24 212 HYDROmorphone (Dilaudid) injection 0.25 mg, 0.25 mg, IntraVENous, q4h PRN OR HYDROmorphone (Dilaudid) injection 0.5 mg, 0.5 mg, IntraVENous, q4h PRN, Jocelyn Lozada MD, 0.5 mg at 06/21/24 0516 levETIRAcetam (Keppra) tablet 750 mg, 750 mg, Oral, BID, Jocelyn Lozada MD, 750 mg at 06/21/24 0844 Lidocaine 4 % patch 1 patch, 1 patch, Topical, Daily, Jocelyn Lozada MD methocarbamol (Robaxin) tablet 1,000 mg, 1,000 mg, Oral, q8h PRN, Jocelyn Lozada MD naloxone (Narcan) injection 0.4 mg, 0.4 mg, IntraVENous, q5 min PRN, Jocelyn Lozada MD ondansetron ODT (Zofran-ODT) disintegrating tablet 4 mg, 4 mg, Oral, q8h PRN OR ondansetron (Zofran) injection 4 mg, 4 mg, IntraVENous, q6h PRN, Jocelyn Lozada MD, 4 mg at 06/20/24 1000 oxyCODONE (Roxicodone) immediate release tablet 5 mg, 5 mg, Oral, q4h PRN OR oxyCODONE (Roxicodone) immediate release tablet 10 mg, 10 mg, Oral, q4h PRN, Jocelyn Lozada MD, 10 mg at 06/21/24 0842 polyethylene glycol (PEG) 3350 (Miralax) packet 17 g, 17 g, Oral, Daily PRN, Jocelyn Lozada MD sodium chloride 0.9 % infusion, 5-250 mL/hr, IntraVENous, PRN, Jocelyn Lozada MD sodium chloride 0.9% (NS) flush 5-40 mL, 5-40 mL, IntraVENous, q12h, Jocelyn Lozada MD, 10 mL at 06/21/24 0115 sodium chloride 0.9% (NS) flush 5-40 mL, 5-40 mL, IntraVENous, PRN, Jocelyn Lozada MD ALLERGIES: Patient has no known allergies. SOCIAL HISTORY: Social History Socioeconomic History Marital status: Single Spouse name: Not on file Number of children: Not on file Years of education: Not on file Highest education level: Not on file Occupational History Not on file Tobacco Use Smoking status: Every Day Current packs/day: 0.50 Types: Cigarettes Smokeless tobacco: Not on file Vaping Use Vaping status: Never Used Substance and Sexual Activity Alcohol use: Yes Comment: once amonth Drug use: Yes Frequency: 1.0 times per week Types: Marijuana Sexual activity: Yes Other Topics Concern Not on file Social History Narrative Not on file Social Drivers of Health Financial Resource Strain: Not on file Food Insecurity: Not on file Transportation Needs: No Transportation Needs (06/19/2024) PRAPARE - Transportation Lack of Transportation (Medical): No Lack of Transportation (Non-Medical): No Physical Activity: Not on file Stress: Not on file Social Connections: Not on file Intimate Partner Violence: Not At Risk (06/19/2024) Humiliation, Afraid, Rape, and Kick questionnaire Fear of Current or Ex-Partner: No Emotionally Abused: No Physically Abused: No Sexually Abused: No Housing Stability: Low Risk (06/19/2024) Housing Stability Vital Sign Unable to Pay for Housing in the Last Year: No Number of Times Moved in the Last Year: 0 Homeless in the Last Year: No FAMILY HISTORY: No family history on file. Further Family History is noncontributory to this injury. REVIEW OF SYSTEMS: Review of Systems - General ROS: negative for - chills, fatigue, fever, malaise or night sweats Psychological ROS: negative Ophthalmic ROS: negative ENT ROS: negative for - headaches or sore throat Hematological and Lymphatic ROS: negative for - bleeding problems or blood clots Respiratory ROS: no cough, shortness of breath, or wheezing Cardiovascular ROS: no chest pain or dyspnea on exertion Gastrointestinal ROS: negative Musculoskeletal ROS: See HPI Neurological ROS: negative for - bowel and bladder control changes, gait disturbance or numbness/tingling All other systems reviewed and are negative VITALS: Vitals: 06/20/24 1315 06/20/24 1330 06/20/24 2032 06/21/24 0906 BP: (!) 156/73 (!) 147/74 140/73 124/66 BP Location: Right arm Right arm Patient Position: Sitting Pulse: 68 70 67 72 Resp: 16 16 16 Temp: 37.2 C (98.9 F) 36.7 C (98 F) TempSrc: Temporal Temporal SpO2: 95% 95% 96% 95% Weight: Height: PHYSICAL EXAM: GENERAL: Patient is well developed/well nourished in NAD. MOOD AND AFFECT: Calm appropriate to situation GAIT AND STATION: Patient is in bed COORDINATION and BALANCE: Patient is grossly coordinated LYMPHADENOPATHY: none on examination of the affected extremity(s) RLE INSPECTION DRESSING: Clean/Dry/Intact. NEUROLOGICAL: SILT intact to +Saphenous/Superficial Peroneal/Deep Peroneal/Tibial/Sural distributions MOTOR: +Dorsiflexion/Plantarflexion/Great toe extension VASCULAR: Capillary refill to all 5 lower extremity digits was brisk and all digits were warm to touch. LABS: CBC: Lab Results Component Value Date WBC 14.2 (H) 06/21/2024 RBC 4.33 (L) 06/21/2024 BMP: Lab Results Component Value Date GLUCOSE 89 06/21/2024 CO2 19 (L) 06/21/2024 BUN 16 06/21/2024 CREATININE 0.83 06/21/2024 CALCIUM 7.6 (L) 06/21/2024 PT/INR: Lab Results Component Value Date INR 1.1 06/19/2024 Type and Screen: Lab Results Component Value Date RH POS 06/19/2024 RH POS 06/19/2024 CRP: No results found for: CRP ESR: No results found for: SEDRATE HgBA1c: No components found for: LABA1C The above labs were reviewed by me. Assessment Yonathan is a 49 y.o.male s/p right proximal tibia open biopsy confirming giant cell tumor, with curettage/cement augmentation and prophylactic plate 06/20/2024 Plan -No plan for return to OR -Weight bearing: WBAT, ok for ROM -Neurovascular/skin checks -PT/OT -Ice and elevate operative extremity -Preliminary pathology: Giant cell tumor. Permanent pathology pending. -DVT prophylaxis: ASA 81BID -No further labs from Ortho perspective, hemoglobin 13.2 this morning -Pain control prescription written -F/u OP w/ Dr. Hennessy JAQUELINE, Franck Baltazar, in 2-3 weeks. Patient will discharge to a facility, will defer appointment management at this time -Ortho primary; plan for discharge to facility today pending medical clearance and pain control Hospitalist Progress Note 06/21/2024 Subjective: Admit Date: 06/19/2024 PCP: Jared Forde MD Room#: [id number]/[id number] A BRIEF HOSPITAL COURSE: Yonathan is a 49 y.o. male with a PMH of alcoholic dementia, arthritis, depression, epilepsy, schizoaffective disorder, MD, TIA, PVD, COPD, right proximal tibial lesion admitted to the hospital by ortho for Right tibia biopsy with curettage, cement augmentation and prophylactic plating on 06/20/24. Interval History: 06/20 Pt seen after procedure. Pain is controlled No overnight issues. Case and plan discussed with patient and bedside nurse. All questions answered. 06/21 Patient is working with PT today. He is from a facility. Working towards facility. Adult diet Regular 24HR INTAKE/OUTPUT: Intake/Output Summary (Last 24 hours) at 06/21/2024 1203 Last data filed at 06/21/2024 1117 Gross per 24 hour Intake 900 ml Output 1850 ml Net -950 ml Past Medical History: Past Medical History: Diagnosis Date Alcoholic dementia (HCC) Arthritis Bone lesion right tibia Convulsions (HCC) Depression Encephalopathy Epilepsy (HCC) Myocardial infarct, old LABS: CBC: Recent Labs 06/19/24 1402 06/21/24 0920 WBC 9.3 14.2* RBC 4.55 4.33* HGB 13.8 13.2 HCT 42.2 39.8* MCV 92.7 91.9 RDW 14.4 14.7 PLT 322 342 BMP: Recent Labs 06/19/24 1402 06/21/24 0920 NA 141 135* K 4.3 3.7 CL 108* 110* CO2 26 19* BUN 18 16 CREATININE 0.93 0.83 GLUCOSE 98 89 CALCIUM 9.1 7.6* ANIONGAP 7 6 LIVER PROFILE:No results for input(s): AST, ALT, BILITOT, ALKPHOS, PROT in the last 72 hours. No lab exists for component: LABALBU PT/INR: Recent Labs 06/19/24 1402 PROTIME 11.9 INR 1.1 CARDIAC ENZYMES: No results for input(s): TROPONINI in the last 72 hours. Procalcitonin: No results found for: PROCAL COVID-19 PCR: No results for input(s): COVID19 in the last 72 hours. Objective: Vitals: BP 124/66 (BP Location: Right arm, Patient Position: Sitting) Pulse 72 Temp 36.7 C (98 F) (Temporal) Resp 16 Ht 1.626 m (5' 4) Wt 82.1 kg (181 lb) SpO2 95% BMI 31.07 kg/m Pulse Ox: SpO2 Av.9 % Min: 92 % Max: 97 % Supplemental O2: O2 Flow Rate (L/min): 2 L/min Physical Exam Constitutional: Appearance: Normal appearance. HENT: Head: Normocephalic. Nose: Nose normal. Mouth/Throat: Mouth: Mucous membranes are moist. Eyes: Extraocular Movements: Extraocular movements intact. Cardiovascular: Rate and Rhythm: Normal rate and regular rhythm. Pulmonary: Effort: Pulmonary effort is normal. Breath sounds: Normal breath sounds. Abdominal: General: Abdomen is flat. Musculoskeletal: General: Normal range of motion. Right lower leg: No edema. Left lower leg: No edema. Skin: General: Skin is warm. Comments: wrapped Neurological: General: No focal deficit present. Mental Status: He is alert and oriented to person, place, and time. Psychiatric: Mood and Affect: Mood normal. Behavior: Behavior normal. Medications: Scheduled PRN acetaminophen, 650 mg, Oral, q6h aspirin, 81 mg, Oral, BID atorvastatin, 80 mg, Oral, Daily divalproex, 250 mg, Oral, TID fenofibrate, 160 mg, Oral, Daily gabapentin, 300 mg, Oral, Nightly levETIRAcetam, 750 mg, Oral, BID Lidocaine, 1 patch, Topical, Daily sodium chloride 0.9%, 5-40 mL, IntraVENous, q12h PRN medications: HYDROmorphone OR HYDROmorphone, methocarbamol, naloxone, ondansetron ODT OR ondansetron, oxyCODONE OR oxyCODONE, polyethylene glycol (PEG) 3350, sodium chloride, sodium chloride 0.9% Continuous Assessment Data: (CAT1) Reviewed 3 or more notes from different specialty or health system (each=1). (LOW: 2x CAT1 or independent historian MOD: 3x CAT1 or 1x CAT3 EXTENSIVE: 3x CAT1 and 1x CAT3) Acute, acute on chronic, unstable/uncontrolled chronic problems/diagnoses: Right tibia lesion Inability to ambulate 2/2 # 1 Stable chronic problems affecting care, new non-acute diagnoses: H/O alcoholic dementia Arthritis Depression Epilepsy H/O MD on asa, plavix, statin - does not follow with cardiology Plan As a result of the above findings & factors, the following mgmt was pursued: - POD # 1 for biopsy, curettage and cement augmentation, prophylactic plating of right proximal tibia - F/u OP w/ Dr. Hennessy in 2-3 weeks, discharge instructions in AVS - continue home meds - DC order placed by ortho - medicine will sign off - am labs, replace lytes prn - PT/OT/CM/SW Advance Directive: Full Code Anticipated Discharge - Date - 06/20-06/21 - Location -snf - Pending the following - ortho dc Total time spent (which include face to face and non face to face encounters) : 30 minutes Extended Emergency Contact Information Primary Emergency Contact: Shanice Coburn Mobile Relation: Mother Benjy Aguilera DO Division of Hospitalist Medicine Acute [facility] Images from the original note were not included. OCCUPATIONAL THERAPY [facility] Initial Evaluation Name/MRN: Yoanthan Fernandez ([id number]) Evaluation Date: 06/21/2024 Date of : 1975 Admission Date: 06/19/2024 9:09 AM Age: 49 y.o. Room/Bed: N5566/[id number] A Discharge Recommendation: Intermediate Facility Assessment IMPRESSION: Pt would benefit from continued therapies to maximize potential and increase indep with ADLs. Recommend SNF level therapies at discharge. Admitting Diagnosis: Right tibial neoplasm, S/P biopsy Right proximal tibia (tumor), Curettage and cement augmentation Right proximal tibia, prophylactic plating Right tibia on 06.21.24 Performance Deficits /Impairments: Increased Pain, Decreased Functional Mobility, Decreased ADL status, Decreased Endurance, Decreased Balance, and Decreased Cognition Prognosis: Fair Decision Making: Medium Complexity Subjective Pt in bed. Agreeable to OT. Pain: 0-10 pain scale: 6/10 Location: Right knee Past Medical History: Past Medical History: Diagnosis Date Alcoholic dementia (HCC) Arthritis Bone lesion right tibia Convulsions (HCC) Depression Encephalopathy Epilepsy (HCC) Myocardial infarct, old Past Surgical History: History reviewed. No pertinent surgical history. 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 Fall Risk: Long Fall Risk Score: 0 (Low Risk) Precautions/Restrictions: Right LE Weight Bearing: Weight Bearing As Tolerated Family/Caregiver Present: none Overall Cognitive Status: Exceptions - Arousal/alertness: appropriate responses to stimuli - Following commands: follows one step commands consistently - Memory: decreased recall of biographical information and decreased recall of recent events - Safety judgement: decreased awareness of need for assistance, decreased awareness of need for safety, and Verbal cues for hand placement with transfers - Problem solving: decreased awareness of errors - Sequencing: requires cues for some Overall Orientation Status: Ox1 (person) Time: I don't know. Place: I don't know, a hospital? Social/Functional History Patient admitted from SNF. Assistive Equipment: none Prior Level of Function Prior Level of ADL Function: Independent Prior Level of Mobility: Independent; Device: None Prior Level of Transfers: Independent Objective Upper Extremity Assessment AROM: WFL Strength: WFL Bed Mobility Supine to sit: Min Assist, for Right LE Sit to supine: Min Assist, for Right LE Scooting: SBA Transfers/Mobility Sit to stand: Min Assist Stand to sit: Min Assist Sitting balance: SBA Standing balance: Min Assist, Static standing balance with bilateral UE support with min assist Functional mobility: Min Assist, Pt able to take several steps from EOB <->bedside chair with use of FWW with min assist and assist to maneuver FWW. Pt required step by step commands and verbal cues for correct hand placement during all transfers. . Sit to stand from EOB and bedside chair with min assist. Device(s) used: Front wheeled walker Coordination: Normal Coordination Tone: Normal Tone Sensation: Normal Sensation Vision: wears glasses for reading and and are being used during the eval Hearing: normal AM-PAC AM-PAC Inpatient Daily Activity Raw Score: 15 ADL Inpatient CMS G-Code Modifier: CK Plan Pt would benefit from skilled acute OT services to address Strengthening, Balance Training, Self-Care/ADL Training, Functional Mobility Training, Endurance Training, Safety Education and Training, Cognitive Reorientation, Patient/Caregiver Training, and Cognitive/Perceptual Training. Frequency: 3x/week for 4 weeks Barriers: Pain, Impaired balance, Decreased endurance, Limited safety awareness, and Cognitive deficit Safety/Education Safety Safety Devices in place: All fall risk precautions in place, call light within reach, left in bed, gait belt, and no alarms engaged upon entry Restraints: No Education Education Given To: patient Education Provided: OT Role, Plan of Care, and Transfer Training Education Method: Verbal Barriers to Learning: Cognition Education Outcome: Continued Education Needed Goals Patient Stated Goal: To go 'home'. Encounter Problems Encounter Problems (Active) Balance Static standing balance during unilateral UE task x 2 mins with supervision. Start: 06/21/24 Expected End: 07/19/24 Dressings Lower Extremities LE dressing with supervision. Start: 06/21/24 Expected End: 07/19/24 Transfers Toilet transfer with supervision. Start: 06/21/24 Expected End: 07/19/24 Therapy Time Individual Co-Treatment Co-Evaluation Time In 1120 Time Out 1133 Minutes 13 Patient's Occupational Therapy Plan of Care supervision is transferred to a [facility] Occupational Therapist. Goals and/or treatment plan was established in collaboration with patient/family/other representatives. Maxine Ray MS, OTR/L Nutrition rescreen completed. Chart reviewed. Patient to be monitored and followed by the diet tool grinding technician. COLLEEN Mosher Images from the original note were not included. PHYSICAL THERAPY [facility] Initial Evaluation Name/MRN: Yonathan Fernandez ([id number]) Evaluation Date: 06/21/2024 Date of : 1975 Admission Date: 06/19/2024 9:09 AM Age: 49 y.o. [facility] A Discharge Recommendation: Intermediate Facility Other: tgbd Assessment IMPRESSION: Pt presents with impaired mobility. Noted generalized weakness and decreased activity tolerance. Impaired balance during standing and gait. Pt mostly limited by post op pain. Currently requires assist with all functional mobility. Recommend return to SNF at discharge. Admitting Diagnosis: Neoplasm of right tibia, Impending fracture. Open Biopsy Right Proximal Tibia adding approximately 20 minutes to the case confirming giant cell tumor Curettage and cement augmentation Right Proximal tibia Prophylactic Plating Right Tibia Prognosis: fair Performance Deficits /Impairments: Increased Pain, Decreased Functional Mobility, Decreased ADL status, Decreased Strength, Decreased Endurance, Decreased Balance, and Decreased ROM Decision Making: Medium Complexity Subjective Pt in bed, agree with PT treatment. Pain: Pt denies any current pain. At rest. 07/09 during mobility Past Medical History: Past Medical History: Diagnosis Date Alcoholic dementia (HCC) Arthritis Bone lesion right tibia Convulsions (HCC) Depression Encephalopathy Epilepsy (HCC) Myocardial infarct, old Past Surgical History: History reviewed. No pertinent surgical history. 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 Fall Risk: Long Fall Risk Score: 0 (Low Risk) Precautions/Restrictions: Right LE Weight Bearing: Weight Bearing As Tolerated Left LE Weight Bearing: Weight Bearing As Tolerated Family/Caregiver Present: none Overall Cognitive Status: Exceptions - Initiation: requires cues for some - Sequencing: requires cues for some Overall Orientation Status: Oriented to Place, Oriented to Situation, and Oriented to Person Vision: Not Assessed Hearing: normal Social/Functional History Patient admitted from SNF. Assistive Equipment: none Prior Level of Function Prior Level of ADL Function: Independent Prior Level of Mobility: Independent; Device: None Prior Level of Transfers: Independent Objective Lower Extremity Assessment AROM: Impaired: right knee flex in supine 0-5 PROM: Impaired: right knee flex to 80 during sitting at EOB Strength: Lower Extremity Strength Right Left Hip Flexion 3 4 Hip Abduction Hip Extension Hip External Rotation (ER) Hip Internal Rotation (IR) Knee Extension 2+ 4 Knee Flexion Ankle Dorsiflexion (DF) Ankle Plantarflexion (PF) 3+ 3+ Inversion Eversion Sensation: Impaired: right leg, decreased Balance: Balance During Session: Posture: fair Sitting - Static: SBA Sitting - Dynamic: SBA Standing - Static: Min Assist Standing - Dynamic: Min Assist Bed Mobility: Supine to sit: Mod Assist Scooting: Mod Assist Transfers Sit to stand: Mod Assist Stand to sit: Mod Assist Stand pivot: Mod Assist Ambulation Ambulation 1 Assistive device(s) used: Front wheeled walker Assist level: Mod Assist Distance (ft): 3 Quality of gait: antalgic, step to pattern, uneven step length, narrow DELMY, slow essence, postural sway, instability through all phases, decreased weight shifting Sit to stand from EOB mod assist. Min assist from chair. Cues to positioning RLE, and hand placement. Educated with weight shifting and gait pattern prior to stand. Cues with sequencing during transfers and gait. Supine ex Ankle pumps x 10 Quad setting x 10 SLR x 10 with assist Leg rolling x 5 Heel slides x 10 with assist Outcome Measures AM-PAC How much HELP from another person do you currently need Turning from your back to your side while in a flat bed without using bedrails?: A Lot Moving from lying on your back to sitting on the side of a flat bed without using bedrails?: A Lot Moving to and from a bed to a chair (including a wheelchair)?: A Lot Standing up from a chair using your arms (wheelchair or bedside chair)?: A Lot Walking in a hospital room?: A Lot Stair climbing assessed?: No AM-PAC Inpatient Mobility Raw Score (No Stairs) : 10 [facility] Score: Static standing (1 or more minutes) Plan Pt would benefit from skilled acute PT services to address Strengthening, Gait Training, Balance Training, and Functional Mobility Training. Frequency: 5x/week for 4 weeks Barriers: Pain, Impaired balance, Lower extremity weakness, and Decreased endurance Safety/Education Safety Safety Devices in place: call light within reach, left in chair, gait belt, nurse notified, and no alarms engaged upon entry Restraints: No Education Education Given To: patient Education Provided: PT Role, PT Goals, and Plan of Care Education Method: Verbal Barriers to Learning: Education Outcome: Verbalized Understanding and Continued Education Needed Goals Patient Stated Goal: To be able to walk. Encounter Problems Encounter Problems (Active) Balance Patient will maintain static standing balance for 3 minutes with modified independence in order to demonstrate decreased risk of falling. Start: 06/21/24 Expected End: 07/19/24 Exercise Patient will improve surgical knee ROM from 0 degrees to 90 degrees in order to improve safety with functional mobility. Start: 06/21/24 Expected End: 07/19/24 Mobility Patient will ambulate 150 feet with SBA and rolling walker in order to improve safety and independence with mobility. Start: 06/21/24 Expected End: 07/19/24 Transfers Patient will perform bed mobility with modified independence in order to improve independence and prepare for out of bed mobility. Start: 06/21/24 Expected End: 07/19/24 Patient will complete functional transfer with rolling walker with modified independence in order to prepare for ambulation. Start: 06/21/24 Expected End: 07/19/24 Therapy Time Individual Co-Treatment Co-Evaluation Time In 0955 Time Out 1022 Minutes 27 Timed Code Treatment Minutes: 8 Minutes (FA) Mike Gallagher PT Patient's Physical Therapy Plan of Care supervision is transferred to a [facility] Physical Therapist. Goals and/or treatment plan was established in collaboration with patient/family/other representatives. Orthopedic Surgery Progress Note Because patient will discharge to a facility, the following prescriptions were printed and placed in the patient's chart: Percocet 5/325 take 1 tablet by mouth four times daily as needed for severe pain x 7 days The OARRS was obtained and reviewed by myself today. There are no concurrent prescriptions noted for additional narcotics nor any evidence of aberrancy. The patient is not receiving prescriptions from multiple physicians/pharmacies. The active cumulative morphine equivalence (MED) is under 30mg daily. Therefore, a prescription for a narcotic pain medication was issued by myself under a carefully monitored basis. Orthopedic Progress Note Name: Yonathan Fernandez Date:06/21/2024 Attending:Joyce Hennessy MD Subjective No events o/n.Patient doing well. Reports his pain is well-controlled patient. Has not been up and ambulating at. Objective Vitals: Vitals: 06/20/24 1300 06/20/24 1315 06/20/24 1330 06/20/242031 BP: (!) 142/75 (!) 156/73 (!) 147/74 140/73 BP Location: Right arm Patient Position: Pulse: 76 68 70 67 Resp: 17 16 16 Temp: 37.2 C (98.9 F) TempSrc: Temporal SpO2: 92% 95% 95% 96% Weight: Height: Physical Exam: General: NAD RLE Dressing/Skin: Clean/Dry/Intact SILT: Saphenous/Superficial Peroneal/Deep Peroneal/Tibial/Sural distributions but diminished secondary to block Motor: Positive toe wiggle but unable to dorsiflex secondary to block Pulses: Palpable DP LABS: Recent Labs 06/19/24 1402 WBC 9.3 HGB 13.8 HCT 42.2 PLT 322 Recent Labs 06/19/24 1402 NA 141 K 4.3 CL 108* CO2 26 BUN 18 CREATININE 0.93 CALCIUM 9.1 Recent Labs 06/19/24 1402 INR 1.1 No results for input(s): SEDRATE, CRP in the last 72 hours. No results for input(s): HCG in the last 72 hours. Assessment Yonathan is a 49 y.o.male s/p Open Biopsy Right Proximal Tibia adding approximately 20 minutes to the case confirming giant cell tumor Curettage and cement augmentation Right Proximal tibia Prophylactic Plating Right Tibia Plan -Weight bearing: WBAT, ok for ROM -PT/OT -Ice and elevate operative extremity -Preliminary pathology: GCT. Permanent pathology pending. -DVT prophylaxis: ASA 81BID to begin 06/21 -Pain control prescription written -F/u OP w/ Dr. Hennessy in 2-3 weeks, discharge instructions in AVS -Ortho primary Jocelyn Lozada MD Orthopaedic Surgery PGY-5 *1212 Hospitalist Progress Note 06/20/2024 Subjective: Admit Date: 06/19/2024 PCP: Jared Forde MD Room#: [id number]/[id number] A BRIEF HOSPITAL COURSE: Yonathan is a 49 y.o. male with a PMH of alcoholic dementia, arthritis, depression, epilepsy, schizoaffective disorder, MD, TIA, PVD, COPD, right proximal tibial lesion admitted to the hospital by ortho for Right tibia biopsy with curettage, cement augmentation and prophylactic plating on 06/20/24. Interval History: Pt seen after procedure. Pain is controlled No overnight issues. Case and plan discussed with patient and bedside nurse. All questions answered. NPO diet with enteral medications 24HR INTAKE/OUTPUT: Intake/Output Summary (Last 24 hours) at 06/20/2024 0818 Last data filed at 06/19/2024 1900 Gross per 24 hour Intake 120 ml Output -- Net 120 ml Past Medical History: Past Medical History: Diagnosis Date Alcoholic dementia (HCC) Arthritis Bone lesion right tibia Convulsions (HCC) Depression Encephalopathy Epilepsy (HCC) Myocardial infarct, old LABS: CBC: Recent Labs 06/19/24 1402 WBC 9.3 RBC 4.55 HGB 13.8 HCT 42.2 MCV 92.7 RDW 14.4 PLT 322 BMP: Recent Labs 06/19/24 1402 NA 141 K 4.3 CL 108* CO2 26 BUN 18 CREATININE 0.93 GLUCOSE 98 CALCIUM 9.1 ANIONGAP 7 LIVER PROFILE:No results for input(s): AST, ALT, BILITOT, ALKPHOS, PROT in the last 72 hours. No lab exists for component: LABALBU PT/INR: Recent Labs 06/19/24 1402 PROTIME 11.9 INR 1.1 CARDIAC ENZYMES: No results for input(s): TROPONINI in the last 72 hours. Procalcitonin: No results found for: PROCAL COVID-19 PCR: No results for input(s): COVID19 in the last 72 hours. Objective: Vitals: BP 123/76 (BP Location: Right arm, Patient Position: Lying) Pulse 75 Temp 36.2 C (97.1 F) (Temporal) Resp 20 Ht 1.626 m (5' 4) Wt 82.1 kg (181 lb) SpO2 96% BMI 31.07 kg/m Pulse Ox: SpO2 Av % Min: 94 % Max: 96 % Supplemental O2: Physical Exam Constitutional: Appearance: Normal appearance. HENT: Head: Normocephalic. Nose: Nose normal. Mouth/Throat: Mouth: Mucous membranes are moist. Eyes: Extraocular Movements: Extraocular movements intact. Cardiovascular: Rate and Rhythm: Normal rate and regular rhythm. Pulmonary: Effort: Pulmonary effort is normal. Breath sounds: Normal breath sounds. Abdominal: General: Abdomen is flat. Musculoskeletal: General: Normal range of motion. Right lower leg: No edema. Left lower leg: No edema. Skin: General: Skin is warm. Comments: wrapped Neurological: General: No focal deficit present. Mental Status: He is alert and oriented to person, place, and time. Psychiatric: Mood and Affect: Mood normal. Behavior: Behavior normal. Medications: Scheduled PRN acetaminophen, 650 mg, Oral, q6h aspirin, 81 mg, Oral, Daily atorvastatin, 80 mg, Oral, Daily divalproex, 250 mg, Oral, TID fenofibrate, 160 mg, Oral, Daily gabapentin, 300 mg, Oral, Nightly levETIRAcetam, 750 mg, Oral, BID Lidocaine, 1 patch, Topical, Daily sodium chloride 0.9%, 5-40 mL, IntraVENous, q12h PRN medications: HYDROmorphone OR HYDROmorphone, methocarbamol, naloxone, ondansetron ODT OR ondansetron, oxyCODONE OR oxyCODONE, polyethylene glycol (PEG) 3350, sodium chloride, sodium chloride 0.9% Continuous Assessment Data: (CAT1) Reviewed 3 or more notes from different specialty or health system (each=1). (LOW: 2x CAT1 or independent historian MOD: 3x CAT1 or 1x CAT3 EXTENSIVE: 3x CAT1 and 1x CAT3) Acute, acute on chronic, unstable/uncontrolled chronic problems/diagnoses: Right tibia lesion Inability to ambulate 2/2 # 1 Stable chronic problems affecting care, new non-acute diagnoses: H/O alcoholic dementia Arthritis Depression Epilepsy H/O MD on asa, plavix, statin - does not follow with cardiology Plan As a result of the above findings & factors, the following mgmt was pursued: - medically cleared and optimized for surgery - POD # 0 for biopsy, curettage and cement augmentation, prophylactic plating of right proximal tibia - continue home meds - am labs, replace lytes prn - PT/OT/CM/SW Advance Directive: Full Code Anticipated Discharge - Date - 06/20-06/21 - Location - home - Pending the following - ortho dc Total time spent (which include face to face and non face to face encounters) : 30 minutes Extended Emergency Contact Information Primary Emergency Contact: Shanice Coburn Mobile Relation: Mother Benjy Chaney DO [facility] Division of Hospitalist Medicine [facility] Orthopedic Progress Note Name: Yonathan Fernandez Date:06/20/2024 Attending:Joyce Hennessy MD Subjective No events overnight. Denies questions about plans for surgery this am. Objective Vitals: Vitals: 06/19/24 1049 06/19/24 1100 06/19/242034 BP: 105/60 105/60 123/76 BP Location: Right arm Right arm Patient Position: Sitting Lying Pulse: 66 66 75 Resp: 16 16 20 Temp: 36.1 C (97 F) 36.1 C (97 F) 36.2 C (97.1 F) TempSrc: Temporal Oral Temporal SpO2: 94% 96% Weight: 82.1 kg (181 lb) Height: 1.626 m (5' 4) Physical Exam: General: NAD RLE TTP about the proximal tib Dressing/Skin: Clean/Dry/Intact SILT: Saphenous/Superficial Peroneal/Deep Peroneal/Tibial/Sural distributions Motor: +Dorsiflexion/Plantarflexion/Great toe extension Pulses: Palpable DP LABS: Recent Labs 06/19/24 1402 WBC 9.3 HGB 13.8 HCT 42.2 PLT 322 Recent Labs 06/19/24 1402 NA 141 K 4.3 CL 108* CO2 26 BUN 18 CREATININE 0.93 CALCIUM 9.1 Recent Labs 06/19/24 1402 INR 1.1 No results for input(s): SEDRATE, CRP in the last 72 hours. No results for input(s): HCG in the last 72 hours. Assessment Yonathan is a 49 y.o.male s/p R tibia lesion, impending path fx Plan -D/w Dr. Hennessy -Plan for OR for R tibia biopsy with curettage, cement augmentation and prophylactic plating 06/20 -NPO@MN -Clearance/optimization pending -Med consult p -Consent p -Added -Labs -Ice -NWB RLE -Admit to Ortho -Pain control and medical management per medicine/APS -Please hold DVT prophylaxis in anticipation of OR -Please comment on clearance in case of OR, page ortho pgr [phone] with clearance status Jocelyn Lozada MD Orthopaedic Surgery PGY-5 *[id number] Orthopedic surgery progress note Chart reviewed. Patient with baseline altered mental status and unable to make medical decisions. There were no available familial contacts in chart, therefore, patient's facility ([place], [place]) was contacted for point of contact assistance. Discussed with facility door to door sales representative. Patient has children who are estranged from patient. Patient mother is the primary decision maker for the patient, Shanice Coburn, whose contact information was added to the patient's chart. Per facility door to door sales representative, attempts were made at obtaining patient a legal guardian, as patient qualifies for legal guardianship. However, there is limited supply of guardians in the [facility] patient [facility], and therefore guardianship has not been established. Called and spoke with Shanice, as below, to obtain consent for surgery tomorrow. I had a long discussion with the patient's mother, Shanice Coburn ([phone]) regarding the surgical treatment option of right tibia biopsy with curettage, cement augmentation, and prophylactic plate. The risks and benefits of surgery were discussed with Shanice at length. Shanice conveyed understanding. All questions were answered to Shanice's satisfaction. Shanice states that if a transfusion of blood is recommended for lifesaving measures , the patient is willing to have a blood transfusion. Shanice was also advised on other risks of surgery, including: Blood loss from arteries or veins requiring tying off or repairing of the vessels. Transfusions of blood, which have a risk of allergic transfusion reactions and viral illnesses, including hepatitis and HIV. Infection, including wound or bone infections, with subsequent need for antibiotics or future surgical procedures. The need for further surgery. Damage to nearby anatomic structures. Risks associated with anesthesia After discussion, Shanice wished for the patient to proceed with right tibia biopsy with curettage, cement augmentation, and prophylactic plate. Because consent was obtained via phone call, Shiv Mckeon, PGY1, served a second person of consent -Please hold anticoagulation in anticipation of OR tomorrow -NPO at midnight -Please comment on medical clearance status -Ortho primary. Please page resident on-call with questions/concerns. Images from the original note were not included. PHYSICAL THERAPY [facility] Name/MRN: Yonathan Fernandez ([id number]) Date: 06/19/2024 Hold Note Per EMR plan for OR for R tibia biopsy with curettage, cement augmentation and prophylactic plating 06/20\. Will re-attempt as able. Mike Gallagher PT documented in this encounter [facility] 06-21-2024 Note Hospitalist Progress Note 06/21/2024 Subjective: Admit Date: 06/19/2024 PCP: Jared Forde MD Room#: N1-44/N4-208 A BRIEF HOSPITAL COURSE: Yonathan is a 49 y.o. male with a PMH of alcoholic dementia, arthritis, depression, epilepsy, schizoaffective disorder, MD, TIA, PVD, COPD, right proximal tibial lesion admitted to the hospital by ortho for Right tibia biopsy with curettage, cement augmentation and prophylactic plating on 06/20/24. Interval History: 06/20 Pt seen after procedure. Pain is controlled No overnight issues. Case and plan discussed with patient and bedside nurse. All questions answered. 06/21 Patient is working with PT today. He is from a facility. Working towards facility. Adult diet Regular 24HR INTAKE/OUTPUT: Intake/Output Summary (Last 24 hours) at 06/21/2024 1203 Last data filed at 06/21/2024 1117 Gross per 24 hour Intake 900 ml Output 1850 ml Net -950 ml Past Medical History: Past Medical History: Diagnosis Date Alcoholic dementia (HCC) Arthritis Bone lesion right tibia Convulsions (HCC) Depression Encephalopathy Epilepsy (HCC) Myocardial infarct, old LABS: CBC: Recent Labs 06/19/24 1402 06/21/24 0920 WBC 9.3 14.2* RBC 4.55 4.33* HGB 13.8 13.2 HCT 42.2 39.8* MCV 92.7 91.9 RDW 14.4 14.7 PLT 322 342 BMP: Recent Labs 06/19/24 1402 06/21/24 0920 NA 141 135* K 4.3 3.7 CL 108* 110* CO2 26 19* BUN 18 16 CREATININE 0.93 0.83 GLUCOSE 98 89 CALCIUM 9.1 7.6* ANIONGAP 7 6 LIVER PROFILE:No results for input(s): AST, ALT, BILITOT, ALKPHOS, PROT in the last 72 hours. No lab exists for component: LABALBU PT/INR: Recent Labs 06/19/24 1402 PROTIME 11.9 INR 1.1 CARDIAC ENZYMES: No results for input(s): TROPONINI in the last 72 hours. Procalcitonin: No results found for: PROCAL COVID-19 PCR: No results for input(s): COVID19 in the last 72 hours. Objective: Vitals: BP 124/66 (BP Location: Right arm, Patient Position: Sitting) Pulse 72 Temp 36.7 ?C (98 ?F) (Temporal) Resp 16 Ht 1.626 m (5' 4) Wt 82.1 kg (181 lb) SpO2 95% BMI 31.07 kg/m? Pulse Ox: SpO2 Av.9 % Min: 92 % Max: 97 % Supplemental O2: O2 Flow Rate (L/min): 2 L/min Physical Exam Constitutional: Appearance: Normal appearance. HENT: Head: Normocephalic. Nose: Nose normal. Mouth/Throat: Mouth: Mucous membranes are moist. Eyes: Extraocular Movements: Extraocular movements intact. Cardiovascular: Rate and Rhythm: Normal rate and regular rhythm. Pulmonary: Effort: Pulmonary effort is normal. Breath sounds: Normal breath sounds. Abdominal: General: Abdomen is flat. Musculoskeletal: General: Normal range of motion. Right lower leg: No edema. Left lower leg: No edema. Skin: General: Skin is warm. Comments: wrapped Neurological: General: No focal deficit present. Mental Status: He is alert and oriented to person, place, and time. Psychiatric: Mood and Affect: Mood normal. Behavior: Behavior normal. Medications: Scheduled PRN acetaminophen, 650 mg, Oral, q6h aspirin, 81 mg, Oral, BID atorvastatin, 80 mg, Oral, Daily divalproex, 250 mg, Oral, TID fenofibrate, 160 mg, Oral, Daily gabapentin, 300 mg, Oral, Nightly levETIRAcetam, 750 mg, Oral, BID Lidocaine, 1 patch, Topical, Daily sodium chloride 0.9%, 5-40 mL, IntraVENous, q12h PRN medications: HYDROmorphone OR HYDROmorphone, methocarbamol, naloxone, ondansetron ODT OR ondansetron, oxyCODONE OR oxyCODONE, polyethylene glycol (PEG) 3350, sodium chloride, sodium chloride 0.9% Continuous Assessment Data: (CAT1) Reviewed 3 or more notes from different specialty or health system (each=1). (LOW: 2x CAT1 or independent historian MOD: 3x CAT1 or 1x CAT3 EXTENSIVE: 3x CAT1 and 1x CAT3) Acute, acute on chronic, unstable/uncontrolled chronic problems/diagnoses: Right tibia lesion Inability to ambulate 2/2 # 1 Stable chronic problems affecting care, new non-acute diagnoses: H/O alcoholic dementia Arthritis Depression Epilepsy H/O MD on asa, plavix, statin - does not follow with cardiology Plan As a result of the above findings & factors, the following mgmt was pursued: - POD # 1 for biopsy, curettage and cement augmentation, prophylactic plating of right proximal tibia - F/u OP w/ Dr. Hennessy in 2-3 weeks, discharge instructions in AVS - continue home meds - DC order placed by ortho - medicine will sign off - am labs, replace lytes prn - PT/OT/CM/SW Advance Directive: Full Code Anticipated Discharge - Date - 06/20-06/21 - Location -snf - Pending the following - ortho dc Total time spent (which include face to face and non face to face encounters) : 30 minutes Extended Emergency Contact Information Primary Emergency Contact: Shanice Coburn Mobile Relation: Mother Benjy Aguilera DO Division of Hospitalist (more content not included)... [facility] 06-21-2024 Note Formatting of this n ote might be different from the original. SW consult w / assigned unit [facility] and informed of [facility] consult. Zhanna reported Pt from Nursing facility where he will be returning. Zhanna plan to follow up w/ Pt needs. [facility] 06-21-2024 Note Formatting of this n ote might be different from the original. SW consult w / assigned unit [facility] and informed of [facility] consult. Zhanna reported Pt from Nursing facility where he will be returning. Zhanna plan to follow up w/ Pt needs. [facility] 06-21-2024 Note OCCUPATIONAL THERAPY [facility] Initial Evaluation Name/MRN: Yonathan Fernandez ([id number]) Evaluation Date: 06/21/2024 Date of : 1975 Admission Date: 06/19/2024 9:09 AM Age: 49 y.o. [facility] Discharge Recommendation: Intermediate Facility Assessment IMPRESSION: Pt would benefit from continued therapies to maximize potential and increase indep with ADLs. Recommend SNF level therapies at discharge. Admitting Diagnosis: Right tibial neoplasm, S/P biopsy Right proximal tibia (tumor), Curettage and cement augmentation Right proximal tibia, prophylactic plating Right tibia on 06.21.24 Performance Deficits /Impairments: Increased Pain, Decreased Functional Mobility, Decreased ADL status, Decreased Endurance, Decreased Balance, and Decreased Cognition Prognosis: Fair Decision Making: Medium Complexity Subjective Pt in bed. Agreeable to OT. Pain: 0-10 pain scale: 6/10 Location: Right knee Past Medical History: Past Medical History: Diagnosis Date Alcoholic dementia (HCC) Arthritis Bone lesion right tibia Convulsions (HCC) Depression Encephalopathy Epilepsy (HCC) Myocardial infarct, old Past Surgical History: History reviewed. No pertinent surgical history. 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 Fall Risk: Long Fall Risk Score: 0 (Low Risk) Precautions/Restrictions: Right LE Weight Bearing: Weight Bearing As Tolerated Family/Caregiver Present: none Overall Cognitive Status: Exceptions - Arousal/alertness: appropriate responses to stimuli - Following commands: follows one step commands consistently - Memory: decreased recall of biographical information and decreased recall of recent events - Safety judgement: decreased awareness of need for assistance, decreased awareness of need for safety, and Verbal cues for hand placement with transfers - Problem solving: decreased awareness of errors - Sequencing: requires cues for some Overall Orientation Status: Ox1 (person) Time: I don't know. Place: I don't know, a hospital? Social/Functional History Patient admitted from SNF. Assistive Equipment: none Prior Level of Function Prior Level of ADL Function: Independent Prior Level of Mobility: Independent; Device: None Prior Level of Transfers: Independent Objective Upper Extremity Assessment AROM: WFL Strength: WFL Bed Mobility Supine to sit: Min Assist, for Right LE Sit to supine: Min Assist, for Right LE Scooting: SBA Transfers/Mobility Sit to stand: Min Assist Stand to sit: Min Assist Sitting balance: SBA Standing balance: Min Assist, Static standing balance with bilateral UE support with min assist Functional mobility: Min Assist, Pt able to take several steps from EOB <->bedside chair with use of FWW with min assist and assist to maneuver FWW. Pt required step by step commands and verbal cues for correct hand placement during all transfers. . Sit to stand from EOB and bedside chair with min assist. Device(s) used: Front wheeled walker Coordination: Normal Coordination Tone: Normal Tone Sensation: Normal Sensation Vision: wears glasses for reading and and are being used during the eval Hearing: normal AM-PAC AM-PAC Inpatient Daily Activity Raw Score: 15 ADL Inpatient CMS G-Code Modifier: CK Plan Pt would benefit from skilled acute OT services to address Strengthening, Balance Training, Self-Care/ADL Training, Functional Mobility Training, Endurance Training, Safety Education and Training, Cognitive Reorientation, Patient/Caregiver Training, and Cognitive/Perceptual Training. Frequency: 3x/week for 4 weeks Barriers: Pain, Impaired balance, Decreased endurance, Limited safety awareness, and Cognitive deficit Safety/Education Safety Safety Devices in place: All fall risk precautions in place, call light within reach, left in bed, gait belt, and no alarms engaged upon entry Restraints: No Education Education Given To: patient Education Provided: OT Role, Plan of Care, and Transfer Training Education Method: Verbal Barriers to Learning: Cognition Education Outcome: Continued Education Needed Goals Patient Stated Goal: To go 'home'. Encounter Problems Encounter Problems (Active) Balance Static standing balance during unilateral UE task x 2 mins with supervision. Start: 06/21/24 Expected End: 07/19/24 Dressings Lower Extremities LE dressing with supervision. Start: 06/21/24 Expected End: 07/19/24 Transfers Toilet transfer with supervision. Start: 06/21/24 Expected End: 07/19/24 Therapy Time Individual Co-Treatment Co-Evaluation Time In 1120 Time Out 1133 Minutes 13 Patient's Occupational Therapy Plan of Care supe (more content not included)... [facility] 06-21-2024 Note PHYSICAL THERAPY [facility] Initial Evaluation Name/MRN: Yonathan Fernandez ([id number]) Evaluation Date: 06/21/2024 Date of : 1975 Admission Date: 06/19/2024 9:09 AM Age: 49 y.o. Room/Bed: [facility] A Discharge Recommendation: Intermediate Facility Other: tgbd Assessment IMPRESSION: Pt presents with impaired mobility. Noted generalized weakness and decreased activity tolerance. Impaired balance during standing and gait. Pt mostly limited by post op pain. Currently requires assist with all functional mobility. Recommend return to SNF at discharge. Admitting Diagnosis: Neoplasm of right tibia, Impending fracture. Open Biopsy Right Proximal Tibia adding approximately 20 minutes to the case confirming giant cell tumor Curettage and cement augmentation Right Proximal tibia Prophylactic Plating Right Tibia Prognosis: fair Performance Deficits /Impairments: Increased Pain, Decreased Functional Mobility, Decreased ADL status, Decreased Strength, Decreased Endurance, Decreased Balance, and Decreased ROM Decision Making: Medium Complexity Subjective Pt in bed, agree with PT treatment. Pain: Pt denies any current pain. At rest. 2/10 during mobility Past Medical History: Past Medical History: Diagnosis Date Alcoholic dementia (HCC) Arthritis Bone lesion right tibia Convulsions (HCC) Depression Encephalopathy Epilepsy (HCC) Myocardial infarct, old Past Surgical History: History reviewed. No pertinent surgical history. 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 Fall Risk: Long Fall Risk Score: 0 (Low Risk) Precautions/Restrictions: Right LE Weight Bearing: Weight Bearing As Tolerated Left LE Weight Bearing: Weight Bearing As Tolerated Family/Caregiver Present: none Overall Cognitive Status: Exceptions - Initiation: requires cues for some - Sequencing: requires cues for some Overall Orientation Status: Oriented to Place, Oriented to Situation, and Oriented to Person Vision: Not Assessed Hearing: normal Social/Functional History Patient admitted from SNF. Assistive Equipment: none Prior Level of Function Prior Level of ADL Function: Independent Prior Level of Mobility: Independent; Device: None Prior Level of Transfers: Independent Objective Lower Extremity Assessment AROM: Impaired: right knee flex in supine 0-5 PROM: Impaired: right knee flex to 80 during sitting at EOB Strength: Lower Extremity Strength Right Left Hip Flexion 3 4 Hip Abduction Hip Extension Hip External Rotation (ER) Hip Internal Rotation (IR) Knee Extension 2+ 4 Knee Flexion Ankle Dorsiflexion (DF) Ankle Plantarflexion (PF) 3+ 3+ Inversion Eversion Sensation: Impaired: right leg, decreased Balance: Balance During Session: Posture: fair Sitting - Static: SBA Sitting - Dynamic: SBA Standing - Static: Min Assist Standing - Dynamic: Min Assist Bed Mobility: Supine to sit: Mod Assist Scooting: Mod Assist Transfers Sit to stand: Mod Assist Stand to sit: Mod Assist Stand pivot: Mod Assist Ambulation Ambulation 1 Assistive device(s) used: Front wheeled walker Assist level: Mod Assist Distance (ft): 3 Quality of gait: antalgic, step to pattern, uneven step length, narrow DELMY, slow essence, postural sway, instability through all phases, decreased weight shifting Sit to stand from EOB mod assist. Min assist from chair. Cues to positioning RLE, and hand placement. Educated with weight shifting and gait pattern prior to stand. Cues with sequencing during transfers and gait. Supine ex Ankle pumps x 10 Quad setting x 10 SLR x 10 with assist Leg rolling x 5 Heel slides x 10 with assist Outcome Measures AM-PAC How much HELP from another person do you currently need Turning from your back to your side while in a flat bed without using bedrails?: A Lot Moving from lying on your back to sitting on the side of a flat bed without using bedrails?: A Lot Moving to and from a bed to a chair (including a wheelchair)?: A Lot Standing up from a chair using your arms (wheelchair or bedside chair)?: A Lot Walking in a hospital room?: A Lot Stair climbing assessed?: No AM-PAC Inpatient Mobility Raw Score (No Stairs) : 10 [facility] Score: Static standing (1 or more minutes) Plan Pt would benefit from skilled acute PT services to address Strengthening, Gait Training, Balance Training, and Functional Mobility Training. Frequency: 5x/week for 4 weeks Barriers: Pain, Impaired balance, Lower extremity weakness, and Decreased endurance Safety/Education Safety Safety Devices in place: call light within reach, left in chair, gait belt, nurse notified, and no alarms engaged u (more content not included)... [facility] 06-21-2024 Note Formatting of this n ote might be different from the original. Med Rec Faxed to [facility] per SOFTWARE INSTALLER request Electronically signed by Francie Gunter [facility], 06-21-2024 10:17AM [facility] 06-21-2024 Note Formatting of this n ote might be different from the original. Med Rec Faxed to [facility] per [facility] request Electronically signed by Francie Gunter [facility], 06-21-2024 10:17AM [facility] 06-21-2024 Note Formatting of this n ote might be different from the original. Message received from [facility] that patient will likely be ready to return to [facility] today and requests for auth to be started for that process. Noted return referral [facility] sent yesterday without response. Call to facility . 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 There person I spoke with was unsure if anyone int he building had access to [facility] and asked for paperwork to be faxed to: [phone]. Ortho updated. [facility] 06-21-2024 Note Formatting of this n ote might be different from the original. Message received from Ortho that patient will likely be ready to return to [facility]) today and requests for auth to be started for that process. Noted return referral in [facility] sent yesterday without response. Call to facility . They verified that patient is [facility] care there and will be able to return without auth. There person I spoke with was unsure if anyone int he building had access to [facility] and asked for paperwork to be faxed to: [phone]. Ortho updated. [facility] 06-21-2024 Note Orthopedic Surgery P rogress Note Because patient will discharge to a facility, the following prescriptions were printed and placed in the patient's chart: Percocet 5/325 take 1 tablet by mouth four times daily as needed for severe pain x 7 days The OARRS was obtained and reviewed by myself today. There are no concurrent prescriptions noted for additional narcotics nor any evidence of aberrancy. The patient is not receiving prescriptions from multiple physicians/pharmacies. The active cumulative morphine equivalence (MED) is under 30mg daily. Therefore, a prescription for a narcotic pain medication was issued by myself under a carefully monitored basis. [facility] 06-21-2024 Note Orthopedic Progress Note Name: Yonathan Fernandez Date:06/21/2024 Attending:Joyce Hennessy MD Subjective No events o/n.Patient doing well. Reports his pain is well-controlled patient. Has not been up and ambulating at. Objective Vitals: Vitals: 06/20/24 1300 06/20/24 1315 06/20/24 1330 06/20/242031 BP: (!) 142/75 (!) 156/73 (!) 147/74 140/73 BP Location: Right arm Patient Position: Pulse: 76 68 70 67 Resp: 17 16 16 Temp: 37.2 ?C (98.9 ?F) TempSrc: Temporal SpO2: 92% 95% 95% 96% Weight: Height: Physical Exam: General: NAD RLE Dressing/Skin: Clean/Dry/Intact SILT: Saphenous/Superficial Peroneal/Deep Peroneal/Tibial/Sural distributions but diminished secondary to block Motor: Positive toe wiggle but unable to dorsiflex secondary to block Pulses: Palpable DP LABS: Recent Labs 06/19/24 1402 WBC 9.3 HGB 13.8 HCT 42.2 PLT 322 Recent Labs 06/19/24 1402 NA 141 K 4.3 CL 108* CO2 26 BUN 18 CREATININE 0.93 CALCIUM 9.1 Recent Labs 06/19/24 1402 INR 1.1 No results for input(s): SEDRATE, CRP in the last 72 hours. No results for input(s): HCG in the last 72 hours. Assessment Yonathan is a 49 y.o.male s/p Open Biopsy Right Proximal Tibia adding approximately 20 minutes to the case confirming giant cell tumor Curettage and cement augmentation Right Proximal tibia Prophylactic Plating Right Tibia Plan -Weight bearing: WBAT, ok for ROM -PT/OT -Ice and elevate operative extremity -Preliminary pathology: GCT. Permanent pathology pending. -DVT prophylaxis: ASA 81BID to begin 06/21 -Pain control prescription written -F/u OP w/ Dr. Hennessy in 2-3 weeks, discharge instructions in AVS -Ortho primary Jocelyn Lozada MD Orthopaedic Surgery PGY-5 *[id number] [facility] 06-20-2024 Plan of care note Problem: Knowledge Deficit Goal: Patient/family/caregiver demonstrates understanding of disease process, treatment plan, medications, and discharge instructions Outcome: Progressing Problem: Potential for Compromised Skin Integrity Goal: Skin Integrity is Maintained or Improved Outcome: Progressing Goal: Nutritional status is improving Outcome: Progressing Problem: Urinary Incontinence Goal: Perineal skin integrity is maintained or improved Outcome: Progressing [facility] 06-20-2024 Note Formatting of this n ote might be different from the original. SW consult: No reason listed Covering SW reviewed chart. SW met w /Pt, introduced self, and inquired upon Pt's living arrangements. Pt responded with pleasant demeanor and stated he is not sure where he lives. Pt did not present as a good historian. SW plan to follow up w / TCC and / or assigned unit SW. SW following. [facility] 06-20-2024 Note Formatting of this n ote might be different from the original. SW consult: No reason listed Covering SW reviewed chart. SW met w /Pt, introduced self, and inquired upon Pt's living arrangements. Pt responded with pleasant demeanor and stated he is not sure where he lives. Pt did not present as a good historian. SW plan to follow up w / [facility] and / or assigned unit SW. SW following. [facility] 06-20-2024 Note Discharge Summary Yonathan Fernandez : 1975 ADMIT DATE: 06/19/2024 DISCHARGE DATE: 06/21/2024 PRIMARY CARE PHYSICIAN: Jared Forde VISIT STATUS: Admission CODE STATUS: Prior DISCHARGE DIAGNOSES: Principal Problem: Neoplasm of right tibia HOSPITAL COURSE: Patient was initially seen in office on 06/19. Patient was found to have an impending fracture of the right proximal tibia and was sent as direct admit that [facility] in 06/19. Patient was set up for surgery on 06/20 for biopsy, curettage and cement augmentation, prophylactic plating of right proximal tibia. Patient was kept in the hospital for pain control, physical therapy. Patient ultimately progressed well and was discharged SIGNIFICANT DIAGNOSTIC STUDIES: N/a CONSULTANTS: Med RECOMMENDED NEXT STEPS: none DISCHARGE MEDICATIONS: Medication List START taking these medications oxyCODONE-acetaminophen 5-325 MG tablet Commonly known as: Percocet Take 1 tablet by mouth every 6 hours as needed for severe pain (7-10) for up to 7 days. CHANGE how you take these medications Aspirin Low Dose 81 MG EC tablet Generic drug: aspirin Take 1 tablet (81 mg) by mouth 2 times daily. What changed: when to take this CONTINUE taking these medications acetaminophen 325 MG tablet Commonly known as: Tylenol atorvastatin 80 MG tablet Commonly known as: Lipitor carboxymethylcellulose 0.5 % ophthalmic solution Commonly known as: Refresh Plus * cholecalciferol 1.25 MG (75432 UT) capsule Commonly known as: Vitamin D-3 * cholecalciferol 1.25 MG (83145 UT) tablet Commonly known as: Vitamin D3 clopidogrel 75 MG tablet Commonly known as: Plavix divalproex 250 MG EC tablet Commonly known as: Depakote fenofibrate 145 MG tablet Commonly known as: Tricor folic acid 1 MG tablet Commonly known as: Folvite levETIRAcetam 750 MG tablet Commonly known as: Keppra LORazepam 1 MG tablet Commonly known as: Ativan magnesium oxide 400 mg tablet Commonly known as: Mag-Ox Milk of Magnesia 2400 MG/30ML suspension Generic drug: magnesium hydroxide nicotine 10 MG inhaler Commonly known as: Nicotrol traMADol 50 MG tablet Commonly known as: Ultram * traZODone 100 MG tablet Commonly known as: Desyrel * traZODone 50 MG tablet Commonly known as: Desyrel Tubersol 5 UNIT/0.1ML injection Generic drug: tuberculin * This list has 4 medication(s) that are the same as other medications prescribed for you. Read the directions carefully, and ask your doctor or other care provider to review them with you. Where to Get Your Medications These medications were sent to [facility] [address] [place] [id number] Hours: Tuesday to Tuesday 10 am to 6 pm Aspirin Low Dose 81 MG EC tablet You can get these medications from any pharmacy Bring a paper prescription for each of these medications oxyCODONE-acetaminophen 5-325 MG tablet DIET: No diet orders on file ACTIVITY: Okay for weightbearing as tolerated and range of motion as tolerated COMPLEXITY OF FOLLOW UP: [x] Moderate Complexity: follow up within 7-14 calendar days (67258) [] Severe Complexity: follow up within 7 calendar days (64351) FOLLOW UP TESTING, PENDING RESULTS OR REFERRALS AT TRANSITIONAL CARE VISIT: [] Yes [x] No PENDING STUDIES: None DISPOSITION: Skilled Facility FACILITY/HOME CARE AGENCY NAME: n/a Follow up with Joyce Hennessy MD [address] [place] [id number] Schedule an appointment as soon as possible for a visit in 2 week(s) For wound re-check INSTRUCTIONS TO MA/SW: Please call patient on day after discharge (must document patient contacted within 2 business days of discharge). FOLLOW UP QUESTIONS FOR MA/SW: 1. Did you get medications filled and taking them as instructed from discharge? 2. Are you following your discharge instructions from your hospital stay? 3. Please confirm patient is scheduled for a follow up appointment within the above time frame. DISCHARGE TIME: > 30 minutes SIGNED: Jocelyn Lozada MD 06/22/2024, 1:56 PM [facility] 06-20-2024 Note Formatting of this n ote might be different from the original. Patient sated he did not want anyone called to updated [facility] 06-20-2024 Note Formatting of this n ote might be different from the original. Patient sated he did not want anyone called to updated [facility] 06-20-2024 Hospital Discharge instructions Leny Esquivel PA-C - 06/20/2024 12:54 PM EST Images from the original note were not included. General Orthopedic Discharge Instructions The following instructions have been prepared to help you when you leave the hospital. These guidelines are for the post-surgery period. Activity: Ease into normal activity as tolerated. Ok for weight bearing as tolerated Medications: see medication instructions. Please be sure to read and understand the information provided by your pharmacy. Ask your Pharmacist if any questions. Wound Care and Hygiene: -Wash hands before touching or changing dressings -Do Not touch incision -Dressing will remain on for 5 days. Change as needed for saturation. If after 5 days incision, may leave incision open to air. -May shower starting post-op day 3 Call Your Doctor for: -Excessive bleeding/swelling of incision -Fever with temperature above 100 oF Anesthesia Precautions: -Do Not operate any vehicle (automobile, bicycle, motorcycle) or power tools for 24 hours -Do Not drink alcoholic beverages for 24 hours -As precaution to prevent post-operative nausea and vomiting, start your diet with liquids, then progress to light foods. If tolerated, resume normal diet. Additional Instructions: Follow up in [address] Hennessy Leny Esquivel PA-C - 06/21/2024 7:49 AM EST Images from the original note were not included. Continuity of Care Form Patient Name: Yonathan Fernandez : 1975 Admit date: 06/19/2024 Discharge date: Code Status Order: Full Code Advance Directives: N Admitting Physician: Joyce Hennessy MD PCP: Jared Forde MD Discharging Nurse: Discharging Hospital Unit/Room#: [id number]/[id number] A Discharging Unit Phone Number: Emergency Contact: Extended Emergency Contact Information Primary Emergency Contact: Shanice Coburn Mobile Relation: Mother Past Surgical History: History reviewed. No pertinent surgical history. Immunization History: There is no immunization history on file for this patient. Active Problems: Medical Problems Problem List * (Principal) Neoplasm of right tibia Epilepsy complicating , antepartum, second trimester (HCC) Isolation/Infection: No active isolations No active infections Nurse Assessment: Last Vital Signs: BP 140/73 (BP Location: Right arm) Pulse 67 Temp 37.2 C (98.9 F) (Temporal) Resp 16 Ht 1.626 m (5' 4) Wt 82.1 kg (181 lb) SpO2 96% BMI 31.07 kg/m Last documented pain score (0-10 scale): Last Weight: Wt Readings from Last 1 Encounters: 06/19/24 82.1 kg (181 lb) Mental Status: {REBECCA Patient Mental Status:89750} IV Access: {REBECCA IV Access:81510} Nursing Mobility/ADLs: Walking {AYALA ADL:65325::Independent} Transfer {AYALA ADL:24880::Independent} Bathing {AYALA ADL:18965::Independent} Dressing {AYALA ADL:95925::Independent} Toileting {AYALA ADL:25228::Independent} Feeding {AYALA ADL:81260::Independent} Polysilicon Preparation Worker {AYALA ADL:67814::Independent} Med Delivery {yes/no:32999} Wound Care Documentation and Therapy: Wound/Incision 06/20/24 Incision Calf Anterior;Right (Active) Site Assessment Unable to assess 06/20/24 1330 Drainage Amount None 06/20/24 1330 Primary Dressing Cast padding/Soft roll;Elastic bandage wrap (MIKE) 06/20/24 1330 Dressing Status Clean, dry & intact 06/20/24 1330 Margins Unable to assess 06/20/24 1330 Number of days: 1 Dressing will remain on for 5 days. Change as needed for saturation. If after 5 days incision, may leave incision open to air. Elimination: Continence: Bowel: {yes/no:45358} Bladder: {yes/no:77704} Urinary Catheter: {[facility] Urinary Catheter:05512} Colostomy/Ileostomy/Ileal Conduit: {YES / NO:} Date of Last BM: Intake/Output Summary (Last 24 hours) at 06/21/2024 0748 Last data filed at 06/21/2024 0610 Gross per 24 hour Intake 900 ml Output 1450 ml Net -550 ml I/O last 3 completed shifts: In: 1020 (12.4 mL/kg) [P.O.:120; I.V.:900 (11 mL/kg)] Out: 1450 (17.7 mL/kg) [Urine:1400 (0.5 mL/kg/hr); Blood:50] Weight: 82.1 kg Safety Concerns: {REBECCA Safety Concerns:93261} Impairments/Disabilities: {REBECCA Impairments/Disabilities:47368} Nutrition Therapy: Current Nutrition Therapy: {REBECCA Diet List:33771} Routes of Feeding: {routes of feedin} Liquids: {liquid consistency:90878} Daily Fluid Restriction: {daily fluid restriction:47208} Last Modified Barium Swallow with Video (Video Swallowing Test): {done not done:61648} Treatments at the Time of Hospital Discharge: Respiratory Treatments: Oxygen Therapy: {Therapy; copd oxygen:83298} Ventilator: {REBECCA Ventilator:31771} Rehab Therapies: {GEN THERAPY DISCIPLINE SCAL:4137547} Weight Bearing Status/Restrictions: {POD WEIGHT BEARIN} Other Medical Equipment (for information only, NOT a DME order): {Assistive Devices DME:79207} Other Treatments: Patient's personal belongings (please select all that are sent with patient): {[facility] Patient Belongings:23127} RN SIGNATURE: {E-signature:45680} CASE MANAGEMENT/SOCIAL WORK SECTION Inpatient Status Date: 06/19/2024 [facility] Address: [address] [place] [address] Dialysis Facility (if applicable) Name: Address: Dialysis Schedule: Phone: Fax: Order Caller/Bioinformatics Assistant signature: ICIAN SECTION Name: Yonathan Fernandez Prognosis: good Condition at Discharge: stable Rehab Potential (if transferring to Rehab): good Recommended Labs or Other Treatments After Discharge: PT/OT The individual is being admitted to a nursing facility directly from an [facility] or a unit of a [facility] that is not operated by or licensed by [facility] under section 5119.14 or 5160-3-15.1 5 The individual requires the level of services provided by a nursing facility for the condition for which he or she was treated in the hospital and, Physician Certification: I certify the above information and transfer of Yonathan Fernandez is necessary for the continuing treatment of the diagnosis listed and that he requires intermediate/mental retardation/developmental disabilities care for greater than 30 days. Update Admission H&P: No change in H&P PHYSICIAN SIGNATURE: documented in this encounter [facility] 06-20-2024 Anesthesiology Postoperative evaluation and management note Patient: Yonathan Fernandez Procedure Summary Date: 06/20/24 Room / Location: [address] Operating Room Anesthesia Start: 957 Anesthesia Stop: 1249 Procedure: OPEN BIOPSY WITH CURETTAGE AND CEMENT AUGMENTATION RIGHT PROXIMAL TIBIA NEOPLASM, PROPHYLACTIC PLATING RIGHT PROIXIMAL TIBIA (Right: Leg Lower) Diagnosis: Neoplasm of right tibia Surgeons: Joyce Hennessy MD Responsible Provider: Isauro Cm MD Anesthesia Type: general, regional ASA Status: 3 Anesthesia Type: general, regional Vitals Value Taken Time BP 136/69 06/20/24 1245 Temp 35.8 C (96.5 F) 06/20/24 1240 Pulse 65 06/20/24 1248 Resp 16 06/20/24 1245 SpO2 98 % 06/20/24 1248 Vitals shown include unfiled device data. Anesthesia Post Evaluation Patient location during evaluation: PACU Patient participation: complete - patient participated Level of consciousness: awake and alert Pain management: satisfactory to patient Multimodal analgesia pain management approach Airway patency: patent Two or more strategies used to mitigate risk of obstructive sleep apnea Cardiovascular status: acceptable and hemodynamically stable Respiratory status: acceptable Hydration status: acceptable No notable events documented. MIPS #430 PONV Patient received an inhalational anesthetic (4554F) Patient exhibits three or more risk factors for PONV (4556F) Patient received at [facility] 2 prophylactic Rx PONV anti-emtic agents of different classes preop and/or intraop (G9775) MIPS # 424 Perioperative Temperature Management Anesthesia time was 60 minutes or longer (4255F) Anesthesai administered was General (inhalational or TIVA) or Neuraxial block (X0424) At least one body temperature greater than 95.8F/35.5C achieved within the 30 mins immediately prior to or the 15 minutes immediately following anesthesia end time (G9771) MIPS #477 Multimodal Pain Management Not emergent case Patient was administered multimodal pain management (two or more drugs and/or interventions excluding systemic opioids) in the periopeartive period occurring at some time between 6 hours prior to anesthesia start time until discharged from PACU (G2148) MIPS #404 Anesthesiology Smoking Abstinence The patient is not a current smoker (e.g. cigarette, cigar, pipe, e-cigarette/vaping/marijuana) If no stop here (XX404) I completed my handoff to the receiving clinician during which we: 1. Identified the patient 2. Identified the responsible provider 3. Reviewed the pertinent medical history 4. Discussed the surgical course 5. Reviewed intra-op anesthesia management and issues during anesthesia 6. Set expectations for post-procedure period 7. Allowed opportunity for questions and acknowledgement of understanding. [facility] Phone: 06-20-2024 Note Patient: Yonathan paris Procedure Summary Date: 06/20/24 Room / Location: [address] Operating Room Anesthesia Start: 957 Anesthesia Stop: 124 Procedure: OPEN BIOPSY WITH CURETTAGE AND CEMENT AUGMENTATION RIGHT PROXIMAL TIBIA NEOPLASM, PROPHYLACTIC PLATING RIGHT PROIXIMAL TIBIA (Right: Leg Lower) Diagnosis: Neoplasm of right tibia Surgeons: Joyce Hennessy MD Responsible Provider: Isauro Cm MD Anesthesia Type: general, regional ASA Status: 3 Anesthesia Type: general, regional Vitals Value Taken Time BP 136/69 06/20/24 1245 Temp 35.8 ?C (96.5 ?F) 06/20/24 1240 Pulse 65 06/20/24 1248 Resp 16 06/20/24 1245 SpO2 98 % 06/20/24 1248 Vitals shown include unfiled device data. Anesthesia Post Evaluation Patient location during evaluation: PACU Patient participation: complete - patient participated Level of consciousness: awake and alert Pain management: satisfactory to patient Multimodal analgesia pain management approach Airway patency: patent Two or more strategies used to mitigate risk of obstructive sleep apnea Cardiovascular status: acceptable and hemodynamically stable Respiratory status: acceptable Hydration status: acceptable No notable events documented. MIPS #430 PONV Patient received an inhalational anesthetic (4554F) Patient exhibits three or more risk factors for PONV (4556F) Patient received at [facility] 2 prophylactic Rx PONV anti-emtic agents of different classes preop and/or intraop (G9775) MIPS # 424 Perioperative Temperature Management Anesthesia time was 60 minutes or longer (4255F) Anesthesai administered was General (inhalational or TIVA) or Neuraxial block (X0424) At least one body temperature greater than 95.8F/35.5C achieved within the 30 mins immediately prior to or the 15 minutes immediately following anesthesia end time (G9771) MIPS #477 Multimodal Pain Management Not emergent case Patient was administered multimodal pain management (two or more drugs and/or interventions excluding systemic opioids) in the periopeartive period occurring at some time between 6 hours prior to anesthesia start time until discharged from PACU (G2148) MIPS #404 Anesthesiology Smoking Abstinence The patient is not a current smoker (e.g. cigarette, cigar, pipe, e-cigarette/vaping/marijuana) If no stop here (XX404) I completed my handoff to the receiving clinician during which we: 1. Identified the patient 2. Identified the responsible provider 3. Reviewed the pertinent medical history 4. Discussed the surgical course 5. Reviewed intra-op anesthesia management and issues during anesthesia 6. Set expectations for post-procedure period 7. Allowed opportunity for questions and acknowledgement of understanding. [facility] 06-20-2024 Note Formatting of this n ote is different from the original. Patient: Yonathan Fernandez Procedure Summary Date: 06/20/24 Room / Location: [address] Operating Room Anesthesia Start: 957 Anesthesia Stop: 124 Procedure: OPEN BIOPSY WITH CURETTAGE AND CEMENT AUGMENTATION RIGHT PROXIMAL TIBIA NEOPLASM, PROPHYLACTIC PLATING RIGHT PROIXIMAL TIBIA (Right: Leg Lower) Diagnosis: Neoplasm of right tibia Surgeons: Joyce Hennessy MD Responsible Provider: Isauro Cm MD Anesthesia Type: general, regional ASA Status: 3 Anesthesia Type: general, regional Vitals Value Taken Time BP 136/69 06/20/24 1245 Temp 35.8 C (96.5 F) 06/20/24 1240 Pulse 65 06/20/24 1248 Resp 16 06/20/24 1245 SpO2 98 % 06/20/24 1248 Vitals shown include unfiled device data. Anesthesia Post Evaluation Patient location during evaluation: PACU Patient participation: complete - patient participated Level of consciousness: awake and alert Pain management: satisfactory to patient Airway patency: patent Dental Injury: no Cardiovascular status: acceptable, blood pressure returned to baseline and hemodynamically stable Respiratory status: acceptable and spontaneous ventilation Hydration status: euvolemic Nausea/Vomiting: controlled No notable events documented. Patient can be discharged once all PACU criteria has been met. [facility] 06-20-2024 Note Patient: Yonathan paris Procedure Summary Date: 06/20/24 Room / Location: [address] Operating Room Anesthesia Start: 957 Anesthesia Stop: 1249 Procedure: OPEN BIOPSY WITH CURETTAGE AND CEMENT AUGMENTATION RIGHT PROXIMAL TIBIA NEOPLASM, PROPHYLACTIC PLATING RIGHT PROIXIMAL TIBIA (Right: Leg Lower) Diagnosis: Neoplasm of right tibia Surgeons: Joyce Hennessy MD Responsible Provider: Isauro Cm MD Anesthesia Type: general, regional ASA Status: 3 Anesthesia Type: general, regional Vitals Value Taken Time BP 136/69 06/20/24 1245 Temp 35.8 ?C (96.5 ?F) 06/20/24 1240 Pulse 65 06/20/24 1248 Resp 16 06/20/24 1245 SpO2 98 % 06/20/24 1248 Vitals shown include unfiled device data. Anesthesia Post Evaluation Patient location during evaluation: PACU Patient participation: complete - patient participated Level of consciousness: awake and alert Pain management: satisfactory to patient Airway patency: patent Dental Injury: no Cardiovascular status: acceptable, blood pressure returned to baseline and hemodynamically stable Respiratory status: acceptable and spontaneous ventilation Hydration status: euvolemic Nausea/Vomiting: controlled No notable events documented. Patient can be discharged once all PACU criteria has been met. [facility] 06-20-2024 Miscellaneous Notes Patient: Yonathan Fernandez Procedure Summary Date: 06/20/24 Room / Location: [address] Operating Room Anesthesia Start: 957 Anesthesia Stop: 124 Procedure: OPEN BIOPSY WITH CURETTAGE AND CEMENT AUGMENTATION RIGHT PROXIMAL TIBIA NEOPLASM, PROPHYLACTIC PLATING RIGHT PROIXIMAL TIBIA (Right: Leg Lower) Diagnosis: Neoplasm of right tibia Surgeons: Joyce Hennessy MD Responsible Provider: Isauro Cm MD Anesthesia Type: general, regional ASA Status: 3 Anesthesia Type: general, regional Vitals Value Taken Time BP 136/69 06/20/24 1245 Temp 35.8 C (96.5 F) 06/20/24 1240 Pulse 65 06/20/24 1248 Resp 16 06/20/24 1245 SpO2 98 % 06/20/24 1248 Vitals shown include unfiled device data. Anesthesia Post Evaluation Patient location during evaluation: PACU Patient participation: complete - patient participated Level of consciousness: awake and alert Pain management: satisfactory to patient Airway patency: patent Dental Injury: no Cardiovascular status: acceptable, blood pressure returned to baseline and hemodynamically stable Respiratory status: acceptable and spontaneous ventilation Hydration status: euvolemic Nausea/Vomiting: controlled No notable events documented. Patient can be discharged once all PACU criteria has been met. documented in this encounter [facility] 06-20-2024 Surgical operation note Patient: Yonathan Fernandez Procedure Summary Date: 06/20/24 Room / Location: [address] Operating Room Anesthesia Start: 957 Anesthesia Stop: 1248 Procedure: OPEN BIOPSY WITH CURETTAGE AND CEMENT AUGMENTATION RIGHT PROXIMAL TIBIA NEOPLASM, PROPHYLACTIC PLATING RIGHT PROIXIMAL TIBIA (Right: Leg Lower) Diagnosis: Neoplasm of right tibia Surgeons: Joyce Hennessy MD Responsible Provider: Isauro Cm MD Anesthesia Type: general, regional ASA Status: 3 Anesthesia Type: general, regional Vitals Value Taken Time BP 136/69 06/20/24 1245 Temp 35.8 C (96.5 F) 06/20/24 1240 Pulse 65 06/20/24 1248 Resp 16 06/20/24 1245 SpO2 98 % 06/20/24 1248 Vitals shown include unfiled device data. Anesthesia Post Evaluation Patient location during evaluation: PACU Patient participation: complete - patient participated Level of consciousness: awake and alert Pain management: satisfactory to patient Multimodal analgesia pain management approach Airway patency: patent Two or more strategies used to mitigate risk of obstructive sleep apnea Cardiovascular status: acceptable and hemodynamically stable Respiratory status: acceptable Hydration status: acceptable No notable events documented. MIPS #430 PONV Patient received an inhalational anesthetic (4554F) Patient exhibits three or more risk factors for PONV (4556F) Patient received at leaset 2 prophylactic Rx PONV anti-emtic agents of different classes preop and/or intraop (G9775) MIPS # 424 Perioperative Temperature Management Anesthesia time was 60 minutes or longer (4255F) Anesthesai administered was General (inhalational or TIVA) or Neuraxial block (X0424) At least one body temperature greater than 95.8F/35.5C achieved within the 30 mins immediately prior to or the 15 minutes immediately following anesthesia end time (G9771) MIPS #477 Multimodal Pain Management Not emergent case Patient was administered multimodal pain management (two or more drugs and/or interventions excluding systemic opioids) in the periopeartive period occurring at some time between 6 hours prior to anesthesia start time until discharged from PACU (G2148) MIPS #404 Anesthesiology Smoking Abstinence The patient is not a current smoker (e.g. cigarette, cigar, pipe, e-cigarette/vaping/marijuana) If no stop here (XX404) I completed my handoff to the receiving clinician during which we: 1. Identified the patient 2. Identified the responsible provider 3. Reviewed the pertinent medical history 4. Discussed the surgical course 5. Reviewed intra-op anesthesia management and issues during anesthesia 6. Set expectations for post-procedure period 7. Allowed opportunity for questions and acknowledgement of understanding. Associated Order(s): Airway Airway Date/Time: 06/20/2024 10:01 AM Urgency: scheduled Airway not difficult General Information and Staff Patient location during procedure: Procedural Resident/GREASE REFINING SUPERVISOR: CHRISTINA Harden CRNA Performed: GREASE REFINING SUPERVISOR Indications and Patient Condition Indications for airway management: anesthesia Sedation level: Asleep Preoxygenated: yes Patient position: sniffing MILS maintained throughout Mask difficulty assessment: 1 - vent by mask Final Airway Details Final airway type: endotracheal airway Successful airway: ETT Cuffed: yes Successful intubation technique: direct laryngoscopy Endotracheal tube insertion site: oral Blade: Charlie Blade size: #3 ETT size (mm): 7.0 Cormack-Lehane Classification: grade I - full view of glottis Placement verified by: chest auscultation and capnometry Measured from: teeth ETT to teeth (cm): 22 Number of attempts at approach: 1 Ventilation between attempts: none Number of other approaches attempted: 0 Associated Order(s): Peripheral Block Peripheral Block Time Out: 06/20/2024 9:50 AM Patient location during procedure: pre-op Start time: 06/20/2024 9:50 AM End time: 06/20/2024 9:54 AM Reason for block: at surgeon's request and post-op pain management Staffing Performed: GREASE REFINING SUPERVISOR Resident/GREASE REFINING SUPERVISOR: CHRISTINA Stringer CRNA Preanesthetic Checklist Completed: patient identified, IV checked, site marked, risks and benefits discussed, surgical consent, monitors and equipment checked, pre-op evaluation and timeout performed Region: Lower Extremities Primary: Femoral Peripheral Block Patient position: supine Patient monitoring: heart rate, cardiac cath lab technologist and continuous pulse ox O2: Room air Laterality: right Injection technique: single-shot Guidance: ultrasound guided -image retained in chart, tip of the needle identified by ultraound during injection. Needle Needle: 22G X 80 mm Additional Notes 06/20/2024 9:50 AM and midazolam (Versed) injection - IntraVENous 2 mg - 06/20/2024 9:50:00 AM Assessment Injection assessment: negative aspiration for heme, incremental injection, local visualized surrounding nerve on ultrasound and no paresthesia on injection Heart rate change: no Slow fractionated injection: no Required Documentation: Relevant anatomy identified (Nerves, Vessels, Muscles), Negative for blood on aspiration, Local anesthetic injected incrementally with intermittent aspiration every 5 mL, Normal resistance with injection, Local anesthetic spread visualized around nerves or plane., No EKG changes noted, No paresthesias reported by patient during injection, No symptoms of toxicity and Local anesthetic injected without difficultyMedications midazolam (Versed) injection - IntraVENous 2 mg - 06/20/2024 9:50:00 WWrseDDJFUrcvax-kovvxjfcsix-lxsplwh rine (TAP) syringe - Injection 20 mL - 06/20/2024 9:50:00 AM Patient: Yonathan Fernandez Procedure Information Date/Time: 06/20/24 1000 Procedure: OPEN BIOPSY WITH CURETTAGE AND CEMENT AUGMENTATION RIGHT PROXIMAL TIBIA NEOPLASM, PROPHYLACTIC PLATING RIGHT PROIXIMAL TIBIA (Right: Leg Lower) Location: [facility] OR [address] [place] [address] Operating Room Surgeons: Joyce Hennessy MD Relevant Problems Neuro/Psych (+) Epilepsy complicating , antepartum, second trimester (HCC) Past Medical History: Past Medical History: 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 Social History: TOBACCO: reports that he has been smoking cigarettes. He does not have any smokeless tobacco history on file. ETOH: reports current alcohol use. Social History Substance and Sexual Activity Drug Use Yes Frequency: 1.0 times per week Types: Marijuana Family History: No family history on file. Screening: unknown Clinical information reviewed: Tobacco Allergies Meds Med Hx Surg Hx Fam Hx Soc Hx Physical Exam Airway Mallampati: II TM distance: >3 FB Mouth Open: normalendotracheal tube not in place Cardiovascular Dental dentition normal Pulmonary Abdominal Anesthesia Plan patient is NPO appropriate Any family history or previous problems with anesthesia no ASA 3 general and regional Any family history or previous problems with anesthesia no The patient is a current smoker. Patient was previously instructed to abstain from smoking on day of procedure. Patient did not smoke on day of procedure. Anesthetic plan and risks discussed with patient. SILVANA Screening Labs: Lab Results Component Value Date WBC 9.3 06/19/2024 HGB 13.8 06/19/2024 HCT 42.2 06/19/2024 MCV 92.7 06/19/2024 PLT 322 06/19/2024 Lab Results Component Value Date NA 141 06/19/2024 K 4.3 06/19/2024 CL 108 (H) 06/19/2024 CO2 26 06/19/2024 BUN 18 06/19/2024 CREATININE 0.93 06/19/2024 GLUCOSE 98 06/19/2024 CALCIUM 9.1 06/19/2024 EGFR >90.0 06/19/2024 Pain Score: 0 - No pain No echocardiogram results found for the past 14 days 06/19/24 ECG 12-LEAD (Preliminary) This result has not been signed. Information might be incomplete. Impression Sinus rhythm Low voltage, precordial leads ST elev, probable normal early repol pattern Equipment Requests: Additional Equipment Requests documented in this encounter [facility] 06-20-2024 Note Formatting of this n ote might be different from the original. Return Referral placed to [facility] via [facility] per TCC request. Await review and response regarding ability to accept. TCC notified. Electronically signed by LUCAS Gunter 06-20-2024 at 12:41 PM [facility] 06-20-2024 Note Formatting of this n ote might be different from the original. Return Referral placed to [facility] via [facility] per TCC request. Await review and response regarding ability to accept. TCC notified. Electronically signed by LUCAS Gunter 06-20-2024 at 12:41 PM [facility] 06-20-2024 Note Return Referral plac ed to [facility] via [facility] per TCC request. Await review and response regarding ability to accept. TCC notified. Electronically signed by LUCAS Gunter 06-20-2024 at 12:41 PM [facility] 06-20-2024 Procedure anesthe zeb Narrative Procedure Name Responsible Anesthesiologist Anesthesia Start Time Anesthesia Stop Time OPEN BIOPSY WITH CURETTAGE AND CEMENT AUGMENTATION RIGHT PROXIMAL TIBIA NEOPLASM, PROPHYLACTIC PLATING RIGHT PROIXIMAL TIBIA (Right: Leg Lower) Isauro Cm MD 06/20/24 0958 06/20/24 1249 Events Date Time Event Comment 06/20/2024 0934 AN Preop Started 0958 In Room 0958 An Start 0958 An Start Data 1000 An Induction The patient was reevaluated immediately before moderate or deep sedation use and before anesthesia induction. 1000 An Intubation 1000 Anesthesia Ready 1018 An Extubation - Spontaneous ventilation - Patient suctioned - Airway removed without difficulty - Spontaneous ventilation maintained 1026 Proc Start 1227 Proc Fin 1228 an stop data 1230 Out of Room 1249 An Stop Meds Name Total lidocaine PF (Xylocaine-MPF) local injec tion 2 % 100 mg propofol (Diprivan) injection 10 mg/mL 1 75 mg rocuronium (ZeMuron) 50 mg/5 mL injectio n 50 mg dexAMETHasone (Decadron) PF injection 10 mg/mL 8 mg esmolol (Brevibloc) 30 mg dexmedetomidine (Precedex) 40 mcg in sod ium chloride 0.9 % 10 mL injection 12 mcg ketamine injection 10 mg/mL (50 mg/5 mL) prefilled syringe 30 mg zblCHCQCulzhw-vfozznmlbmx-uxpsxbnpvtt (T AP) syringe 20 mL midazolam (Versed) injection 2 mg ondansetron (Zofran) injection 4 mg 4 mg ceFAZolin (Ancef) vial 1 g 2 g HYDROmorphone (Dilaudid) injection 2 mg/ mL 1 mg acetaminophen (Tylenol) tablet 650 mg 0 mg acetaminophen (Ofirmev) injection 1,000 mg ketorolac (Toradol) injection 15 mg 15 m g sugammadex (Bridion) 200 mg/2 mL injecti on 200 mg * Agents Name O2 N2O Air Isoflurane * Blood No blood administrations on file. Lines, Drains, and Airways Type Details Placement Removal Peripheral IV Placement Date: 05/31 06/23; Placement Time: 1400; Catheter Size: 20 G; Orientation: Anterior, Left; Location: Forearm; Site Prep: Alcohol; Local Anesth: None; Technique: Anatomical landmarks; Inserted by: RN; Insertion Attempts: 1; Difficult Venous Access? No 06/19/24 1400 by Ирина Sanz RN Wound/Incision 06/20/24; N; Incisio n; Calf; Anterior, Right 06/20/24 0000 by Chikis Cordoba RN ETT Placement Date: 05/31 07/24; Placement Time: 1001 (created via procedure documentation); Type: ETT - single; Single Lumen Tube Size: 7 mm; Cuffed: Yes; Location: Oral; Placement Verification: Auscultation, Capnometry; Removal Date: 06/20/24; Removal Time: 10106/20/24 1001 by CHRISTINA Harden CRNA 06/20/24 1018 by CHRISTINA Harden CRNA [id number] Anesthesiology procedure note* Anesthesia Procedure Notes - CHRISTINA Harden CRNA - 06/20/2024 10:15 AM ESTAssociated Order(s): Airway Airway Date/Time: 06/20/2024 10:01 AM Urgency: scheduled Airway not difficult General Information and Staff Patient location during procedure: Procedural Resident/GREASE REFINING SUPERVISOR: CHRISTINA Harden CRNA Performed: GREASE REFINING SUPERVISOR Indications and Patient Condition Indications for airway management: anesthesia Sedation level: Asleep Preoxygenated: yes Patient position: sniffing MILS maintained throughout Mask difficulty assessment: 1 - vent by mask Final Airway Details Final airway type: endotracheal airway Successful airway: ETT Cuffed: yes Successful intubation technique: direct laryngoscopy Endotracheal tube insertion site: oral Blade: Charlie Blade size: #3 ETT size (mm): 7.0 Cormack-Lehane Classification: grade I - full view of glottis Placement verified by: chest auscultation and capnometry Measured from: teeth ETT to teeth (cm): 22 Number of attempts at approach: 1 Ventilation between attempts: none Number of other approaches attempted: 0 [id number] NoteAirway Date/Time: 06/20/2024 10:01 AM Urgency: scheduled Airway not difficult General Information and Staff Patient location during procedure: Procedural Resident/GREASE REFINING SUPERVISOR: CHRISTINA Harden CRNA Performed: GREASE REFINING SUPERVISOR Indications and Patient Condition Indications for airway management: anesthesia Sedation level: Asleep Preoxygenated: yes Patient position: sniffing MILS maintained throughout Mask difficulty assessment: 1 - vent by mask Final Airway Details Final airway type: endotracheal airway Successful airway: ETT Cuffed: yes Successful intubation technique: direct laryngoscopy Endotracheal tube insertion site: oral Blade: Charlie Blade size: #3 ETT size (mm): 7.0 Cormack-Lehane Classification: grade I - full view of glottis Placement verified by: chest auscultation and capnometry Measured from: teeth ETT to teeth (cm): 22 Number of attempts at approach: 1 Ventilation between attempts: none Number of other approaches attempted: [address] [place], [place] [id number] Note* Op Note - Joyce Hennessy MD - 06/20/2024 9:58 AM EST Operative Report Patient Name: Yonathan Fernandez Date of : 1975 Date of Surgery: 06/20/24 Pre-operative diagnosis: Right proximal tibia neoplasm, impending fracture Post-operative diagnosis: Same Procedure(s): Open Biopsy Right Proximal Tibia 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 Compared to a standard curettage of a proximal tibial tumor this required double the time of resection of the aggressive benign tumor. Surgeon: Joyce Hennessy M.D. Principal Mechanical Engineer(s): Neville PGY-5, Abdullahi PGY-3 Anesthesia: general EBL: Minimal IVF: Crystalloid Medications: Two grams of Cefazolin were given. Implants: Synthes proximal tibia plate, cement augmentation Clinical History/Indication for Surgery The patient is a 49 y.o. year old male who was presents for open biopsy, curettage, cement augmentation and prophylactic plating right proximal tibia. Typical indications for surgery were reviewed and operative excision and biopsy was recommended. Risks of surgery in general were reviewed including, but not limited to, infection, need for additional procedures, painful or prominent scars, damage to normal structures as well as medical complications such as MD, stroke, PE, DVT, and even . Pt was given opportunity to ask questions and consider his options. He ultimately elected to proceed with surgery. No guarantees were given or implied. Operative Narration The patient was identified in the pre-operative holding area. The surgical site was identified and marked. Informed consent was obtained. The patient was then brought to the operating room and placedsupine on the operating table. Anesthesia was administered and care of the head, neck, and airway was maintained by the anesthesia staff throughout the entire procedure. All bony prominences were identified and padded. A tourniquet was applied to the operative extremity. The operative extremity wasthen prepped and draped in the usual sterile fashion. A surgical timeout was performed. Antibioticswere confirmed to have been given. The tourniquet was inflated. An anterolateral exposure to the proximal tibia was made incising skinand subcutaneous tissues down to the fascia. The fascia over the anterior compartment was incised and carried proximally over Gerdy's tubercle and into the iliotibial band. Care was taken to not violate the joint capsule. This layer was elevated posteriorly along with the tibialis anterior muscle off the lateral aspect of the tibia. The same layer was also elevated anteriorly until the lateral proximal tibia was fully exposed. A corticotomy was created in order to obtain access to right proximal tibial mass. This was then curetted and sent for frozen on moist Telfa. Attending surgeon remainedscrubbed in and present within the room throughout the entire procedure. 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 A sub-meniscal arthrotomy was then created to allow for intra-articular exposure. The meniscus was examined and found to be intact. The articular cartilage was also smooth and largely intact without significant defect. 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 Remaining sample was sent for permanent. Following adequate curettage, the bone void was irrigated and reevaluated for further need for curettage. Once felt that all tumor had been removed, we then proceeded with burring the cortical edges of the entire bone void. A Bovie was then utilized in order to burn entire bone void. We then again confirmed intact cartilage intra-articularly. A lateral plate was applied with a single distal cortical screw in order to hold plate in place with K wires proximal. The plate position was confirmed on imaging and felt to be appropriate. We then proceeded with drilling the proximal locking screws including the kickstand screw. All screws lengths were measured and this was recorded on the back table. The cortical screw was then loosened and the plate spun 90 degrees in order to gain access to corticotomy site. The bone void was then filled with 2 batches of Palacos cement and the plate replaced and refaxed with cortical screw and appropriate locking screws. 2 additional cortical screws were placed distally. Final imaging was obtained and saved. The arthrotomy was then repaired with 0 Vicryl suture in a mattress fashion Copious irrigation was performed and closure performed in a layered fashion including fascia and skin. A sterile compressive dressing was then applied. Once the patient was awakened from anesthesia, they were transported to the PACU in stable condition, having tolerated surgery well with no obvious complications. Postoperative Plan -Weight bearing: WBAT, ok for ROM -PT/OT -Ice and elevate operative extremity -Preliminary pathology: GCT. Permanent pathology pending. -DVT prophylaxis: ASA 81BID to begin 06/21 -Pain control prescription written -F/u OP w/ Dr. Hennessy in 2-3 weeks, discharge instructions in AVS -Ortho primary This operative report was prepared and signed by Jocelyn Lozada MD at 06/20/24, 12:44 PM [facility] Phone: [phone] 422-214601-22-2025 Note* Op Note - Joyce Hennessy MD - 06/20/2024 9:58 AM EST Operative Report Patient Name: Yonathan Fernandez Date of : 1975 Date of Surgery: 06/20/24 Pre-operative diagnosis: Right proximal tibia neoplasm, impending fracture Post-operative diagnosis: Same Procedure(s): Open Biopsy Right Proximal Tibia 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 Compared to a standard curettage of a proximal tibial tumor this required double the time of resection of the aggressive benign tumor. Surgeon: Joyce Hennessy M.D. Principal Mechanical Engineer(s): Neville PGY-5, Abdullahi PGY-3 Anesthesia: general EBL: Minimal IVF: Crystalloid Medications: Two grams of Cefazolin were given. Implants: Synthes proximal tibia plate, cement augmentation Clinical History/Indication for Surgery The patient is a 49 y.o. year old male who was presents for open biopsy, curettage, cement augmentation and prophylactic plating right proximal tibia. Typical indications for surgery were reviewed and operative excision and biopsy was recommended. Risks of surgery in general were reviewed including, but not limited to, infection, need for additional procedures, painful or prominent scars, damage to normal structures as well as medical complications such as MD, stroke, PE, DVT, and even . Pt was given opportunity to ask questions and consider his options. He ultimately elected to proceed with surgery. No guarantees were given or implied. Operative Narration The patient was identified in the pre-operative holding area. The surgical site was identified and marked. Informed consent was obtained. The patient was then brought to the operating room and placedsupine on the operating table. Anesthesia was administered and care of the head, neck, and airway was maintained by the anesthesia staff throughout the entire procedure. All bony prominences were identified and padded. A tourniquet was applied to the operative extremity. The operative extremity wasthen prepped and draped in the usual sterile fashion. A surgical timeout was performed. Antibioticswere confirmed to have been given. The tourniquet was inflated. An anterolateral exposure to the proximal tibia was made incising skinand subcutaneous tissues down to the fascia. The fascia over the anterior compartment was incised and carried proximally over Gerdy's tubercle and into the iliotibial band. Care was taken to not violate the joint capsule. This layer was elevated posteriorly along with the tibialis anterior muscle off the lateral aspect of the tibia. The same layer was also elevated anteriorly until the lateral proximal tibia was fully exposed. A corticotomy was created in order to obtain access to right proximal tibial mass. This was then curetted and sent for frozen on moist Telfa. Attending surgeon remainedscrubbed in and present within the room throughout the entire procedure. 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 A sub-meniscal arthrotomy was then created to allow for intra-articular exposure. The meniscus was examined and found to be intact. The articular cartilage was also smooth and largely intact without significant defect. 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 Remaining sample was sent for permanent. Following adequate curettage, the bone void was irrigated and reevaluated for further need for curettage. Once felt that all tumor had been removed, we then proceeded with burring the cortical edges of the entire bone void. A Bovie was then utilized in order to burn entire bone void. We then again confirmed intact cartilage intra-articularly. A lateral plate was applied with a single distal cortical screw in order to hold plate in place with K wires proximal. The plate position was confirmed on imaging and felt to be appropriate. We then proceeded with drilling the proximal locking screws including the kickstand screw. All screws lengths were measured and this was recorded on the back table. The cortical screw was then loosened and the plate spun 90 degrees in order to gain access to corticotomy site. The bone void was then filled with 2 batches of Palacos cement and the plate replaced and refaxed with cortical screw and appropriate locking screws. 2 additional cortical screws were placed distally. Final imaging was obtained and saved. The arthrotomy was then repaired with 0 Vicryl suture in a mattress fashion Copious irrigation was performed and closure performed in a layered fashion including fascia and skin. A sterile compressive dressing was then applied. Once the patient was awakened from anesthesia, they were transported to the PACU in stable condition, having tolerated surgery well with no obvious complications. Postoperative Plan -Weight bearing: WBAT, ok for ROM -PT/OT -Ice and elevate operative extremity -Preliminary pathology: GCT. Permanent pathology pending. -DVT prophylaxis: ASA 81BID to begin 06/21 -Pain control prescription written -F/u OP w/ Dr. Hennessy in 2-3 weeks, discharge instructions in AVS -Ortho primary This operative report was prepared and signed by Jocelyn Lozada MD at 06/20/24, 12:44 PM [facility] Phone: [phone] 840-142601-22-2025 Anesthesiology procedure note* Anesthesia Procedure Notes - Courtney Burkett APRN - GREASE REFINING SUPERVISOR - 06/20/2024 9:54 AM EST Associated Order(s): Peripheral Block Peripheral Block Time Out: 06/20/2024 9:50 AM Patient location during procedure: pre-op Start time: 06/20/2024 9:50 AM End time: 06/20/2024 9:54 AM Reason for block: at surgeon's request and post-op pain management Staffing Performed: GREASE REFINING SUPERVISOR Resident/GREASE REFINING SUPERVISOR: CHRISTINA Stringer CRNA Preanesthetic Checklist Completed: patient identified, IV checked, site marked, risks and benefits discussed, surgical consent, monitors and equipment checked, pre-op evaluation and timeout performed Region: Lower Extremities Primary: Femoral Peripheral Block Patient position: supine Patient monitoring: heart rate, cardiac cath lab technologist and continuous pulse ox O2: Room air Laterality: right Injection technique: single-shot Guidance: ultrasound guided -image retained in chart, tip of the needle identified by ultraound during injection. Needle Needle: 22G X 80 mm Additional Notes 06/20/2024 9:50 AM and midazolam (Versed) injection - IntraVENous 2 mg - 06/20/2024 9:50:00 AM Assessment Injection assessment: negative aspiration for heme, incremental injection, local visualized surrounding nerve on ultrasound and no paresthesia on injection Heart rate change: no Slow fractionated injection: no Required Documentation: Relevant anatomy identified (Nerves, Vessels, Muscles), Negative for blood on aspiration, Local anesthetic injected incrementally with intermittent aspiration every 5 mL, Normal resistance with injection, Local anesthetic spread visualized around nerves or plane., No EKG changes noted, No paresthesias reported by patient during injection, No symptoms of toxicity and Local anesthetic injected without difficultyMedications midazolam (Versed) injection - IntraVENous 2 mg - 06/20/2024 9:50:00 FVlzrESCXOzeozm-pbncouvmrrt-pyjrxvrygus (TAP) syringe - Injection 20 mL - 06/20/2024 9:50:00 AM [facility] [employer] Phone: [phone] 234-486401-22-2025 NotePeripheral Block Time Out: 06/20/2024 9:50 AM Patient location during procedure: pre-op Start time: 06/20/2024 9:50 AM End time: 06/20/2024 9:54 AM Reason for block: at surgeon's request and post-op pain management Staffing Performed: GREASE REFINING SUPERVISOR Resident/GREASE REFINING SUPERVISOR: CHRISTINA Stringer CRNA Preanesthetic Checklist Completed: patient identified, IV checked, site marked, risks and benefits discussed, surgical consent, monitors and equipment checked, pre-op evaluation and timeout performed Region: Lower Extremities Primary: Femoral Peripheral Block Patient position: supine Patient monitoring: heart rate, cardiac cath lab technologist and continuous pulse ox O2: Room air Laterality: right Injection technique: single-shot Guidance: ultrasound guided -image retained in chart, tip of the needle identified by ultraound during injection. Needle Needle: 22G X 80 mm Additional Notes 06/20/2024 9:50 AM and midazolam (Versed) injection - IntraVENous 2 mg - 06/20/2024 9:50:00 AM Assessment Injection assessment: negative aspiration for heme, incremental injection, local visualized surrounding nerve on ultrasound and no paresthesia on injection Heart rate change: no Slow fractionated injection: no Required Documentation: Relevant anatomy identified (Nerves, Vessels, Muscles), Negative for blood on aspiration, Local anesthetic injected incrementally with intermittent aspiration every 5 mL, Normal resistance with injection, Local anesthetic spread visualized around nerves or plane., No EKG changes noted, No paresthesias reported by patient during injection, No symptoms of toxicity and Local anesthetic injected without difficultyMedications midazolam (Versed) injection - IntraVENous 2 mg - 06/20/2024 9:50:00 IZolgIPXBVqgkvm-fdlesiifcjo-uppmybnrbjb (TAP) syringe - Injection 20 mL - 06/20/2024 9:50:00 [facility]01-22-2025 Anesthesiology Preoperative evaluation and management note* Anesthesia Preprocedure Evaluation - CHRISTINA Stringer CRNA - 06/20/2024 9:34 AM EST Patient: Yonathan Fernandez Procedure Information Date/Time: 06/20/24 1000 Procedure: OPEN BIOPSY WITH CURETTAGE AND CEMENT AUGMENTATION RIGHT PROXIMAL TIBIA NEOPLASM, PROPHYLACTIC PLATING RIGHT PROIXIMAL TIBIA (Right: Leg Lower) Location: [address] Operating Room Surgeons: Joyce Hennessy MD Relevant Problems Neuro/Psych (+) Epilepsy complicating , antepartum, second trimester (HCC) Past Medical History: Past Medical History: 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 Social History: TOBACCO: reports that he has been smoking cigarettes. He does not have any smokeless tobacco history on file. ETOH: reports current alcohol use. Social History Substance and Sexual Activity Drug Use Yes Frequency: 1.0 times per week Types: Marijuana Family History: No family history on file. Screening: unknown Clinical information reviewed: Tobacco Allergies Meds Med Hx Surg Hx Fam Hx Soc Hx Physical Exam Airway Mallampati: II TM distance: >3 FB Mouth Open: normalendotracheal tube not in place Cardiovascular Dental dentition normal Pulmonary Abdominal Anesthesia Plan patient is NPO appropriate Any family history or previous problems with anesthesia no ASA 3 general and regional Any family history or previous problems with anesthesia no The patient is a current smoker. Patient was previously instructed to abstain from smoking on day of procedure. Patient did not smoke on day of procedure. Anesthetic plan and risks discussed with patient. SILVANA Screening Labs: Lab Results Component Value Date WBC 9.3 06/19/2024 HGB 13.8 06/19/2024 HCT 42.2 06/19/2024 MCV 92.7 06/19/2024 PLT 322 06/19/2024 Lab Results Component Value Date NA 141 06/19/2024 K 4.3 06/19/2024 CL 108 (H) 06/19/2024 CO2 26 06/19/2024 BUN 18 06/19/2024 CREATININE 0.93 06/19/2024 GLUCOSE 98 06/19/2024 CALCIUM 9.1 06/19/2024 EGFR >90.0 06/19/2024 Pain Score: 0 - No pain No echocardiogram results found for the past 14 days 06/19/24 ECG 12-LEAD (Preliminary) This result has not been signed. Information might be incomplete. Impression Sinus rhythm Low voltage, precordial leads ST elev, probable normal early repol pattern Equipment Requests: Additional Equipment Requests [facility] [employer] [id number] NotePatient: Yonathan Ceballosell Procedure Information Date/Time: 01/22/25 1000 Procedure: OPEN BIOPSY WITH CURETTAGE AND CEMENT AUGMENTATION RIGHT PROXIMAL TIBIA NEOPLASM, PROPHYLACTIC PLATING RIGHT PROIXIMAL TIBIA (Right: Leg Lower) Location: [facility] OR [address] [place] [address] Operating Room Surgeons: Joyce Hennessy MD Relevant Problems Neuro/Psych (+) Epilepsy complicating , antepartum, second trimester (HCC) Past Medical History: Past Medical History: 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 Social History: TOBACCO: reports that he has been smoking cigarettes. He does not have any smokeless tobacco history on file. ETOH: reports current alcohol use. Social History Substance and Sexual Activity Drug Use Yes ? Frequency: 1.0 times per week ? Types: Marijuana Family History: No family history on file. Screening: unknown Clinical information reviewed: Tobacco Allergies Meds Med Hx Surg Hx Fam Hx Soc Hx Physical Exam Airway Mallampati: II TM distance: >3 FB Mouth Open: normalendotracheal tube not in place Cardiovascular Dental dentition normal Pulmonary Abdominal Anesthesia Plan patient is NPO appropriate Any family history or previous problems with anesthesia no ASA 3 general and regional Any family history or previous problems with anesthesia no The patient is a current smoker. Patient was previously instructed to abstain from smoking on day of procedure. Patient did not smoke on day of procedure. Anesthetic plan and risks discussed with patient. SILVANA Screening Labs: Lab Results Component Value Date WBC 9.3 06/19/2024 HGB 13.8 06/19/2024 HCT 42.2 06/19/2024 MCV 92.7 06/19/2024 PLT 322 06/19/2024 Lab Results Component Value Date NA 141 06/19/2024 K 4.3 06/19/2024 CL 108 (H) 06/19/2024 CO2 26 06/19/2024 BUN 18 06/19/2024 CREATININE 0.93 06/19/2024 GLUCOSE 98 06/19/2024 CALCIUM 9.1 06/19/2024 EGFR >90.0 06/19/2024 Pain Score: 0 - No pain No echocardiogram results found for the past 14 days 06/19/24 ECG 12-LEAD (Preliminary) This result has not been signed. Information might be incomplete. Impression Sinus rhythm Low voltage, precordial leads ST elev, probable normal early repol pattern Equipment [facility]: [facility] NoteHospitalist Progress Note 06/20/2024 Subjective: Admit Date: 06/19/2024 PCP: Jared Forde MD Room#: [id number] A BRIEF HOSPITAL COURSE: Yonathan is a 49 y.o. male with a PMH of alcoholic dementia, arthritis, depression, epilepsy, schizoaffective disorder, MD, TIA, PVD, COPD, right proximal tibial lesion admitted to the hospital by ortho for Right tibia biopsy with curettage, cement augmentation and prophylactic plating on 06/20/24. Interval History: Pt seen after procedure. Pain is controlled No overnight issues. Case and plan discussed with patient and bedside nurse. All questions answered. NPO diet with enteral medications 24HR INTAKE/OUTPUT: Intake/Output Summary (Last 24 hours) at 06/20/2024 0818 Last data filed at 06/19/2024 1900 Gross per 24 hour Intake 120 ml Output -- Net 120 ml Past Medical History: Past Medical History: Diagnosis Date Alcoholic dementia (HCC) Arthritis Bone lesion right tibia Convulsions (HCC) Depression Encephalopathy Epilepsy (HCC) Myocardial infarct, old LABS: CBC: Recent Labs 06/19/24 1402 WBC 9.3 RBC 4.55 HGB 13.8 HCT 42.2 MCV 92.7 RDW 14.4 PLT 322 BMP: Recent Labs 06/19/24 1402 NA 141 K 4.3 CL 108* CO2 26 BUN 18 CREATININE 0.93 GLUCOSE 98 CALCIUM 9.1 ANIONGAP 7 LIVER PROFILE:No results for input(s): AST, ALT, BILITOT, ALKPHOS, PROT in the last 72 hours. No lab exists for component: LABALBU PT/INR: Recent Labs 06/19/24 1402 PROTIME 11.9 INR 1.1 CARDIAC ENZYMES: No results for input(s): TROPONINI in the last 72 hours. Procalcitonin: No results found for: PROCAL COVID-19 PCR: No results for input(s): COVID19 in the last 72 hours. Objective: Vitals: BP 123/76 (BP Location: Right arm, Patient Position: Lying) Pulse 75 Temp 36.2 ?C (97.1 ?F) (Temporal) Resp 20 Ht 1.626 m (5' 4) Wt 82.1 kg (181 lb) SpO2 96% BMI 31.07 kg/m? Pulse Ox: SpO2 Av % Min: 94 % Max: 96 % Supplemental O2: Physical Exam Constitutional: Appearance: Normal appearance. HENT: Head: Normocephalic. Nose: Nose normal. Mouth/Throat: Mouth: Mucous membranes are moist. Eyes: Extraocular Movements: Extraocular movements intact. Cardiovascular: Rate and Rhythm: Normal rate and regular rhythm. Pulmonary: Effort: Pulmonary effort is normal. Breath sounds: Normal breath sounds. Abdominal: General: Abdomen is flat. Musculoskeletal: General: Normal range of motion. Right lower leg: No edema. Left lower leg: No edema. Skin: General: Skin is warm. Comments: wrapped Neurological: General: No focal deficit present. Mental Status: He is alert and oriented to person, place, and time. Psychiatric: Mood and Affect: Mood normal. Behavior: Behavior normal. Medications: Scheduled PRN acetaminophen, 650 mg, Oral, q6h aspirin, 81 mg, Oral, Daily atorvastatin, 80 mg, Oral, Daily divalproex, 250 mg, Oral, TID fenofibrate, 160 mg, Oral, Daily gabapentin, 300 mg, Oral, Nightly levETIRAcetam, 750 mg, Oral, BID Lidocaine, 1 patch, Topical, Daily sodium chloride 0.9%, 5-40 mL, IntraVENous, q12h PRN medications: HYDROmorphone OR HYDROmorphone, methocarbamol, naloxone, ondansetron ODT OR ondansetron, oxyCODONE OR oxyCODONE, polyethylene glycol (PEG) 3350, sodium chloride, sodium chloride 0.9% Continuous Assessment Data: (CAT1) Reviewed 3 or more notes from different specialty or health system (each=1). (LOW: 2x CAT1 or independent historian MOD: 3x CAT1 or 1x CAT3 EXTENSIVE: 3x CAT1 and 1x CAT3) Acute, acute on chronic, unstable/uncontrolled chronic problems/diagnoses: Right tibia lesion Inability to ambulate 2/2 # 1 Stable chronic problems affecting care, new non-acute diagnoses: H/O alcoholic dementia Arthritis Depression Epilepsy H/O MD on asa, plavix, statin - does not follow with cardiology Plan As a result of the above findings & factors, the following mgmt was pursued: - medically cleared and optimized for surgery - POD # 0 for biopsy, curettage and cement augmentation, prophylactic plating of right proximal tibia - continue home meds - am labs, replace lytes prn - PT/OT/CM/SW Advance Directive: Full Code Anticipated Discharge - Date - 06/20-06/21 - Location - home - Pending the following - ortho dc Total time spent (which include face to face and non face to face encounters) : 30 minutes Extended Emergency Contact Information Primary Emergency Contact: Shanice Coburn Mobile Relation: Mother Benjy Chaney DO [facility] Division of Hospitalist Medicine [facility]01-22-2025 NoteOrthopedic Progress Note Name: Yonathan Fernandez Date:06/20/2024 Attending:Joyce Hennessy MD Subjective No events overnight. Denies questions about plans for surgery this am. Objective Vitals: Vitals: 06/19/24 1049 06/19/24 1100 06/19/242034 BP: 105/60 105/60 123/76 BP Location: Right arm Right arm Patient Position: Sitting Lying Pulse: 66 66 75 Resp: 16 16 20 Temp: 36.1 ?C (97 ?F) 36.1 ?C (97 ?F) 36.2 ?C (97.1 ?F) TempSrc: Temporal Oral Temporal SpO2: 94% 96% Weight: 82.1 kg (181 lb) Height: 1.626 m (5' 4) Physical Exam: General: NAD RLE TTP about the proximal tib Dressing/Skin: Clean/Dry/Intact SILT: Saphenous/Superficial Peroneal/Deep Peroneal/Tibial/Sural distributions Motor: +Dorsiflexion/Plantarflexion/Great toe extension Pulses: Palpable DP LABS: Recent Labs 06/19/24 1402 WBC 9.3 HGB 13.8 HCT 42.2 PLT 322 Recent Labs 06/19/24 1402 NA 141 K 4.3 CL 108* CO2 26 BUN 18 CREATININE 0.93 CALCIUM 9.1 Recent Labs 06/19/24 1402 INR 1.1 No results for input(s): SEDRATE, CRP in the last 72 hours. No results for input(s): HCG in the last 72 hours. Assessment Yonathan is a 49 y.o.male s/p R tibia lesion, impending path fx Plan -D/w Dr. Hennessy -Plan for OR for R tibia biopsy with curettage, cement augmentation and prophylactic plating 06/20 -NPO@MN -Clearance/optimization pending -Med consult p -Consent p -Added -Labs -Ice -NWB RLE -Admit to Ortho -Pain control and medical management per medicine/APS -Please hold DVT prophylaxis in anticipation of OR -Please comment on clearance in case of OR, page ortho pgr [phone] with clearance status Jocelyn Lozada MD Orthopaedic Surgery PGY-5 *[address] [place], [place] [address]01-21-2025 Plan of care note* Care Plan - Eli Lantigua RN - 06/19/2024 11:22 PM EST Problem: Knowledge Deficit Goal: Patient/family/caregiver demonstrates understanding of disease process, treatment plan, medications, and discharge instructions Outcome: Progressing Problem: Potential for Compromised Skin Integrity Goal: Skin Integrity is Maintained or Improved Outcome: Progressing Goal: Nutritional status is improving Outcome: Progressing [facility] [id number] NoteOrthopedic surgery progress note Chart reviewed. Patient with baseline altered mental status and unable to make medical decisions. There were no available familial contacts in chart, therefore, patient's facility ([place], [place]) was contacted for point of contact assistance. Discussed with facility door to door sales representative. Patient has children who are estranged from patient. Patient mother is the primary decision maker for the patient, Shanice Coburn, whose contact information was added to the patient's chart. Per facility door to door sales representative, attempts were made at obtaining patient a legal guardian, as patient qualifies for legal guardianship. However, there is limited supply of guardians in the [facility] patient resides, and therefore guardianship has not been established. Called and spoke with Shanice, as below, to obtain consent for surgery tomorrow. I had a long discussion with the patient's mother, Shanice Coburn ([phone]) regarding the surgical treatment option of right tibia biopsy with curettage, cement augmentation, and prophylactic plate. The risks and benefits of surgery were discussed with Shanice at length. Shanice conveyed understanding. All questions were answered to Shanice's satisfaction. Shanice states that if a transfusion of blood is recommended for lifesaving measures , the patient is willing to have a blood transfusion. Shanice was also advised on other risks of surgery, including: Blood loss from arteries or veins requiring tying off or repairing of the vessels. Transfusions of blood, which have a risk of allergic transfusion reactions and viral illnesses, including hepatitis and HIV. Infection, including wound or bone infections, with subsequent need for antibiotics or future surgical procedures. The need for further surgery. Damage to nearby anatomic structures. Risks associated with anesthesia After discussion, Shanice wished for the patient to proceed with right tibia biopsy with curettage, cement augmentation, and prophylactic plate. Because consent was obtained via phone call, Shiv Mckeon, PGY1, served a second person of consent -Please hold anticoagulation in anticipation of OR tomorrow -NPO at midnight -Please comment on medical clearance status -Ortho primary. Please page resident on-call with questions/concerns. [facility]01-21-2025 Consult note* Soledad Lori Nelson, MANAGER DOCUMENTATION - SAIL FINISHER MACHINE - 06/19/2024 1:28 PM ESTAssociated Order(s): IP CONSULT TO HOSPITALIST Hospital Medicine Consult Patient - Yonathan Fernandez, Age - 49 y.o. - 1975 Room Number - [id number] Consulting - Joyce Hennessy MD Primary Care Physician - Jared Forde MD [facility] # - [id number] Date of Admission - 06/19/2024 9:09 AM Hospital Day - 0 Reason for Consult: Medical Management HISTORY OF PRESENT ILLNESS: Yonathan is a 49 y.o. male with a PMH of alcoholic dementia, arthritis, depression, epilepsy, schizoaffective disorder, MD, TIA, PVD, COPD, right proximal tibial lesion admitted to the hospital by orthofor Right tibia biopsy with curettage, cement augmentation and prophylactic plating on 06/20/24. [facility] is consulted for medical management. Pt seen and evaluated sitting in bed. Reports he is originally from [place] and all previous [facility] care received there. He denies fever, chills, CP, palpitations, dizziness, SOB, cough, abdominal pain, nausea, vomiting, dysuria. He denies history of COPD. Does not wear oxygen. He is a currentsmoker 0.5 PPD. EKG obtained shows SR, rate 66, Qtc 404. BMP and CBC are unremarkable, PT/INR normal. Vital signs reviewed, he is afebrile, BP well controlled 105/60. He is on room air 94%. Past Medical History: Past Medical History: Diagnosis Date Alcoholic dementia (HCC) Arthritis Bone lesion right tibia Convulsions (HCC) Depression Encephalopathy Epilepsy (HCC) Myocardial infarct, old Past Surgical History: History reviewed. No pertinent surgical history. Medications: Scheduled PRN acetaminophen, 650 mg, Oral, q6h sodium chloride 0.9%, 5-40 mL, IntraVENous, q12h PRN medications: morphine sulfate OR morphine sulfate, naloxone, ondansetron ODT OR ondansetron, oxyCODONE OR oxyCODONE, polyethylene glycol (PEG) 3350, sodium chloride, sodium chloride 0.9% Continuous Allergies: Patient has no known allergies. Social History: Social History Socioeconomic History Marital status: Single Spouse name: Not on file Number of children: Not on file Years of education: Not on file Highest education level: Not on file Occupational History Not on file Tobacco Use Smoking status: Every Day Current packs/day: 0.50 Types: Cigarettes Smokeless tobacco: Not on file Vaping Use Vaping status: Never Used Substance and Sexual Activity Alcohol use: Yes Comment: once amonth Drug use: Yes Frequency: 1.0 times per week Types: Marijuana Sexual activity: Yes Other Topics Concern Not on file Social History Narrative Not on file Social Drivers of Health Financial Resource Strain: Not on file Food Insecurity: Not on file Transportation Needs: No Transportation Needs (06/19/2024) PRAPARE - Transportation Lack of Transportation (Medical): No Lack of Transportation (Non-Medical): No Physical Activity: Not on file Stress: Not on file Social Connections: Not on file Intimate Partner Violence: Not At Risk (06/19/2024) Humiliation, Afraid, Rape, and Kick questionnaire Fear of Current or Ex-Partner: No Emotionally Abused: No Physically Abused: No Sexually Abused: No Housing Stability: Low Risk (06/19/2024) Housing Stability Vital Sign Unable to Pay for Housing in the Last Year: No Number of Times Moved in the Last Year: 0 Homeless in the Last Year: No Family History: No family history on file. REVIEW OF SYSTEMS: 10 point ROS obtained, as per HPI, otherwise NEG Physical Exam: Vitals: BP 105/60 Pulse 66 Temp 36.1 C (97 F) (Oral) Resp 16 Ht 5' 4 (1.626 m) Wt 181 lb(82.1 kg) SpO2 94% BMI 31.07 kg/m BMI Classification: Obese (BMI 30.0-39.9) Pulse Ox: SpO2 Av % Min: 94 % Max: 94 % Supplemental O2: Physical Exam Constitutional: General: He is not in acute distress. Appearance: He is not ill-appearing. HENT: Head: Normocephalic and atraumatic. Mouth/Throat: Mouth: Mucous membranes are moist. Cardiovascular: Rate and Rhythm: Normal rate and regular rhythm. Pulses: Normal pulses. Heart sounds: Normal heart sounds. Pulmonary: Effort: Pulmonary effort is normal. Breath sounds: Normal breath sounds. Abdominal: General: Bowel sounds are normal. There is no distension. Palpations: Abdomen is soft. Tenderness: There is no abdominal tenderness. Musculoskeletal: General: No swelling. Skin: General: Skin is warm and dry. Neurological: Mental Status: He is alert and oriented to person, place, and time. Psychiatric: Mood and Affect: Mood normal. Behavior: Behavior normal. LABS: Recent Results (from the past 24 hours) ECG 12 lead Collection Time: 06/19/24 1:22 PM Result Value Ref Range Heart Rate 66 bpm QRSD Interval 84 ms QT Interval 386 ms QTC Interval 404 ms P [place] 42 degrees QRS [place] 56 degrees T Wave [place] 26 degrees HI Interval 176 ms Urine Culture: No results found for this or any previous visit. IMAGING: See report Assessment Data: (CAT1) Reviewed 1 notes from different specialty or health system (each=1). (CAT1) Reviewed 3 or more labs/studies ordered by another provider not previously counted (each=1, panels count as 1). (LOW: 2x CAT1 or independent historian MOD: 3x CAT1 or 1x CAT3 EXTENSIVE: 3x CAT1 and 1x CAT3) Acute, acute on chronic, unstable/uncontrolled chronic problems/diagnoses: Right tibia lesion Inability to ambulate 2/2 # 1 Stable chronic problems affecting care, new non-acute diagnoses: H/O alcoholic dementia Arthritis Depression Epilepsy H/O MD on asa, plavix, statin - does not follow with cardiology Plan As a result of the above findings & factors, the following mgmt was pursued: - continue management per ortho - resume plavix once ok by ortho - resume home atorvastatin, tricor, asa - called nursing facility and verified patients medications, will resume his Keppra and Depakote - am labs, replace lytes prn - PT/OT/CM/SW - delirium precautions: increase activity and limit nighttime disturbances - DVT prophylaxis: per primary Patient is considered intermediate risk for this intermediate risk procedure/surgery () with no reducible risk factors. Based on the above evaluation, the benefits of the planned procedure likely exceed the risks. The patient is medically optimized to proceed with the planned procedure. Advance Directive: Full Code Anticipated Discharge - Date - TBD by ortho - Location - TBD by ortho - Pending the following - TBD by ortho Total time spent (which include face to face and non face to face encounters) : 75 minutes No emergency contact information on file. CHRISTINA Catalan CNP Division of Hospitalist Medicine [facility] Cosigned by Collin Ellington MD at 06/21/2024 12:33 PM EST Associated attestation - Collin Ellington MD - 06/21/2024 12:33 PM EST Images from the original note were not included. Hospitalist Progress Note 06/21/2024 [id number]: Please page me ([phone]) for patient care issues. [phone]: Please page [facility] night Hospitalist for any issues. Subjective: Admit Date: 06/19/2024 PCP: Jared Forde MD Room#: [id number] I have evaluated the patient and reviewed the case with the JAQUELINE. I agree with the current plan of care including the workup, evaluation, management, and diagnosis. Care plan has been discussed. The documentation below has been reviewed and edited as needed to reflect the findings of my evaluation. Greater than 25% of the 15 minute face to face encounter was spent discussing/counseling the patientregarding the care plan for this patient. The patient was seen and examined independently and relevant data reviewed by myself. A full chart review and problem focused physical exam was performed. 06/20/2024 12:40 PM 06/20/2024 12:45 PM 06/20/2024 1:00 PM 06/20/2024 1:15 PM 06/20/2024 1:30 PM 06/20/2024 8:32 PM 06/21/2024 9:06 AM Vitals Systolic 140 136 142 156 147 140 124 Diastolic 71 69 75 73 74 73 66 Heart Rate 78 74 76 68 70 67 72 Temp 35.8 C (96.5 F) 37.2 C (98.9 F) 36.7 C (98 F) Resp 15 16 17 16 16 16 SpO2 94 % 97 % 92 % 95 % 95 % 96 % 95 % Acute, acute on chronic, unstable/uncontrolled chronic problems/diagnoses: R tibial lesion - concern for malignancy Stable chronic problems affecting care, new non-acute diagnoses: Alcoholic dementia CAD on asa/plavix Depression Seizure d/o Total time spent (which include face to face and non face to face encounters) : 15 minutes Collin Ellington MD on 06/21/2024 Division of Hospital Medicine Inpatient Medical Services/[facility] PAGER: [phone] [facility] Phone: 1(486) 340-951301-21-2025 Consult note* Soledad Nelson, CHRISTINA - [employer] - 06/19/2024 1:28 PM ESTAssociated Order(s): IP CONSULT TO HOSPITALIST Hospital Medicine Consult Patient - Yonathan Fernandez, Age - 49 y.o. - 1975 Room Number - [id number] Consulting - Joyce Hennessy MD Primary Care Physician - Jared Forde MD [facility] # - [id number] Date of Admission - 06/19/2024 9:09 AM Hospital Day - 0 Reason for Consult: Medical Management HISTORY OF PRESENT ILLNESS: Yonathan is a 49 y.o. male with a PMH of alcoholic dementia, arthritis, depression, epilepsy, schizoaffective disorder, MD, TIA, PVD, COPD, right proximal tibial lesion admitted to the hospital by orthofor Right tibia biopsy with curettage, cement augmentation and prophylactic plating on 06/20/24. [facility] is consulted for medical management. Pt seen and evaluated sitting in bed. NAD. Reports he is originally from [place] and all previous [place] care received there. He denies fever, chills, CP, palpitations, dizziness, SOB, cough, abdominal pain, nausea, vomiting, dysuria. He denies history of COPD. Does not wear oxygen. He is a currentsmoker 0.5 PPD. EKG obtained shows SR, rate 66, Qtc 404. BMP and CBC are unremarkable, PT/INR normal. Vital signs reviewed, he is afebrile, BP well controlled 105/60. He is on room air 94%. Past Medical History: Past Medical History: Diagnosis Date Alcoholic dementia (HCC) Arthritis Bone lesion right tibia Convulsions (HCC) Depression Encephalopathy Epilepsy (HCC) Myocardial infarct, old Past Surgical History: History reviewed. No pertinent surgical history. Medications: Scheduled PRN acetaminophen, 650 mg, Oral, q6h sodium chloride 0.9%, 5-40 mL, IntraVENous, q12h PRN medications: morphine sulfate OR morphine sulfate, naloxone, ondansetron ODT OR ondansetron, oxyCODONE OR oxyCODONE, polyethylene glycol (PEG) 3350, sodium chloride, sodium chloride 0.9% Continuous Allergies: Patient has no known allergies. Social History: Social History Socioeconomic History Marital status: Single Spouse name: Not on file Number of children: Not on file Years of education: Not on file Highest education level: Not on file Occupational History Not on file Tobacco Use Smoking status: Every Day Current packs/day: 0.50 Types: Cigarettes Smokeless tobacco: Not on file Vaping Use Vaping status: Never Used Substance and Sexual Activity Alcohol use: Yes Comment: once amonth Drug use: Yes Frequency: 1.0 times per week Types: Marijuana Sexual activity: Yes Other Topics Concern Not on file Social History Narrative Not on file Social Drivers of Health Financial Resource Strain: Not on file Food Insecurity: Not on file Transportation Needs: No Transportation Needs (06/19/2024) PRAPARE - Transportation Lack of Transportation (Medical): No Lack of Transportation (Non-Medical): No Physical Activity: Not on file Stress: Not on file Social Connections: Not on file Intimate Partner Violence: Not At Risk (06/19/2024) Humiliation, Afraid, Rape, and Kick questionnaire Fear of Current or Ex-Partner: No Emotionally Abused: No Physically Abused: No Sexually Abused: No Housing Stability: Low Risk (06/19/2024) Housing Stability Vital Sign Unable to Pay for Housing in the Last Year: No Number of Times Moved in the Last Year: 0 Homeless in the Last Year: No Family History: No family history on file. REVIEW OF SYSTEMS: 10 point ROS obtained, as per HPI, otherwise NEG Physical Exam: Vitals: BP 105/60 Pulse 66 Temp 36.1 C (97 F) (Oral) Resp 16 Ht 5' 4 (1.626 m) Wt 181 lb(82.1 kg) SpO2 94% BMI 31.07 kg/m BMI Classification: Obese (BMI 30.0-39.9) Pulse Ox: SpO2 Av % Min: 94 % Max: 94 % Supplemental O2: Physical Exam Constitutional: General: He is not in acute distress. Appearance: He is not ill-appearing. HENT: Head: Normocephalic and atraumatic. Mouth/Throat: Mouth: Mucous membranes are moist. Cardiovascular: Rate and Rhythm: Normal rate and regular rhythm. Pulses: Normal pulses. Heart sounds: Normal heart sounds. Pulmonary: Effort: Pulmonary effort is normal. Breath sounds: Normal breath sounds. Abdominal: General: Bowel sounds are normal. There is no distension. Palpations: Abdomen is soft. Tenderness: There is no abdominal tenderness. Musculoskeletal: General: No swelling. Skin: General: Skin is warm and dry. Neurological: Mental Status: He is alert and oriented to person, place, and time. Psychiatric: Mood and Affect: Mood normal. Behavior: Behavior normal. LABS: Recent Results (from the past 24 hours) ECG 12 lead Collection Time: 06/19/24 1:22 PM Result Value Ref Range Heart Rate 66 bpm QRSD Interval 84 ms QT Interval 386 ms QTC Interval 404 ms P [place] 42 degrees QRS [place] 56 degrees T Wave [place] 26 degrees HI Interval 176 ms Urine Culture: No results found for this or any previous visit. IMAGING: See report Assessment Data: (CAT1) Reviewed 1 notes from different specialty or health system (each=1). (CAT1) Reviewed 3 or more labs/studies ordered by another provider not previously counted (each=1, panels count as 1). (LOW: 2x CAT1 or independent historian MOD: 3x CAT1 or 1x CAT3 EXTENSIVE: 3x CAT1 and 1x CAT3) Acute, acute on chronic, unstable/uncontrolled chronic problems/diagnoses: Right tibia lesion Inability to ambulate 2/2 # 1 Stable chronic problems affecting care, new non-acute diagnoses: H/O alcoholic dementia Arthritis Depression Epilepsy H/O MD on asa, plavix, statin - does not follow with cardiology Plan As a result of the above findings & factors, the following mgmt was pursued: - continue management per ortho - resume plavix once ok by ortho - resume home atorvastatin, tricor, asa - called nursing facility and verified patients medications, will resume his Keppra and Depakote - am labs, replace lytes prn - PT/OT/CM/SW - delirium precautions: increase activity and limit nighttime disturbances - DVT prophylaxis: per primary Patient is considered intermediate risk for this intermediate risk procedure/surgery () with no reducible risk factors. Based on the above evaluation, the benefits of the planned procedure likely exceed the risks. The patient is medically optimized to proceed with the planned procedure. Advance Directive: Full Code Anticipated Discharge - Date - TBD by ortho - Location - TBD by ortho - Pending the following - TBD by ortho Total time spent (which include face to face and non face to face encounters) : 75 minutes No emergency contact information on file. CHRISTINA Catalan CNP Division of Hospitalist Medicine [facility] Cosigned by Collin Ellington MD at 06/21/2024 12:33 PM EST Associated attestation - Collin Ellington MD - 06/21/2024 12:33 PM EST Images from the original note were not included. Hospitalist Progress Note 06/21/[id number]: Please page me ([phone]) for patient care issues. [phone]: Please page [facility] night Hospitalist for any issues. Subjective: Admit Date: 06/19/2024 PCP: Jared Forde MD Room#: [id number] I have evaluated the patient and reviewed the case with the JAQUELINE. I agree with the current plan of care including the workup, evaluation, management, and diagnosis. Care plan has been discussed. The documentation below has been reviewed and edited as needed to reflect the findings of my evaluation. Greater than 25% of the 15 minute face to face encounter was spent discussing/counseling the patientregarding the care plan for this patient. The patient was seen and examined independently and relevant data reviewed by myself. A full chart review and problem focused physical exam was performed. 06/20/2024 12:40 PM 06/20/2024 12:45 PM 06/20/2024 1:00 PM 06/20/2024 1:15 PM 06/20/2024 1:30 PM 06/20/2024 8:32 PM 06/21/2024 9:06 AM Vitals Systolic 140 136 142 156 147 140 124 Diastolic 71 69 75 73 74 73 66 Heart Rate 78 74 76 68 70 67 72 Temp 35.8 C (96.5 F) 37.2 C (98.9 F) 36.7 C (98 F) Resp 15 16 17 16 16 16 SpO2 94 % 97 % 92 % 95 % 95 % 96 % 95 % Acute, acute on chronic, unstable/uncontrolled chronic problems/diagnoses: R tibial lesion - concern for malignancy Stable chronic problems affecting care, new non-acute diagnoses: Alcoholic dementia CAD on asa/plavix Depression Seizure d/o Total time spent (which include face to face and non face to face encounters) : 15 minutes Collin Ellington MD on 06/21/2024 Division of Hospital Medicine Inpatient Medical Services/[facility] PAGER: [phone] documented in this [facility]01-21-2025 History and physical note* Jocelyn Lozada MD - 06/19/2024 1:06 PM EST Images from the original note were not included. Ortho H&P Patient: Yonathan Fernandez Date of : 1975 Acct: [id number] PCP: Jared Forde MD Date of Admission: 06/19/2024 Date of Service: Pt seen/examined on 06/19/2024 Chief Complaint: right knee pain, inability to walk History Of Present Illness: This is a 49 y.o. male with PMH significant for epilepsy, Wernicke's encephalopathy, HTN, schizoaffective disorder, MD, TIA, PVD, COPD, depression/anxiety who presents to clinic for right knee pain that has been worsening over 5 years. He was referred to our clinic afterXR/MRI demonstrated a right proximal tibial lesion. 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 At the time,there was no concern for fractures. Patient states that he was unable to walk 2 days after this injury and has been wheelchair bound since. Patient sought medical care due to worsening pain. He denies new injuries. Patient presents from a nursing facility due to his mental disorders and inability to take care of himself. He presents with health aide. Per aide, patient has episodes of emotional outbursts and has tendency to elope from health facilities. He is able to stand but is unable to take more than one step due to pain. Patient scoots himself in his wheelchair. He denies weakness, numbness, tingling. Pain is persistent but does improve with pain medications. Patient ambulation status: no difficulty and wheelchair bound Past Medical History: Past Medical History: Diagnosis Date Alcoholic dementia (HCC) Arthritis Bone lesion right tibia Convulsions (HCC) Depression Encephalopathy Epilepsy (HCC) Myocardial infarct, old Past Surgical History: History reviewed. No pertinent surgical history. Home Medications: Prior to Admission medications Medication Sig Start Date End Date Taking? Authorizing Provider acetaminophen (Tylenol) 325 MG tablet Take 650 mg by mouth. Historical ProviderMD aspirin 81 MG EC tablet Take 81 mg by mouth daily. Historical ProviderMD atorvastatin (Lipitor) 80 MG tablet Take 80 mg by mouth daily. Historical ProviderMD carboxymethylcellulose (Refresh Plus) 0.5 % ophthalmic solution 1 drop if needed for dry eyes. Historical ProviderMD cholecalciferol (Vitamin D-3) 1.25 MG (36577 UT) capsule Take 50,000 Units by mouth 1 (one) time per week. Historical ProviderMD cholecalciferol (Vitamin D3) 1.25 MG (79592 UT) tablet Take 50,000 Units by mouth 1 (one) time per week. Historical ProviderMD clopidogrel (Plavix) 75 MG tablet Take by mouth daily. Historical ProviderMD divalproex (Depakote) 250 MG EC tablet Take 250 mg by mouth 3 times daily. Do not crush, chew, or split. Historical ProviderMD fenofibrate (Tricor) 145 MG tablet Take 145 mg by mouth daily. Historical ProviderMD folic acid (Folvite) 1 MG tablet Take by mouth daily. Historical ProviderMD levETIRAcetam (Keppra) 750 MG tablet Take by mouth. Historical ProviderMD LORazepam (Ativan) 1 MG tablet Take 1 mg by mouth. Historical ProviderMD magnesium hydroxide (Milk of Magnesia) 400 MG/5ML suspension Take by mouth Nightly. Historical ProviderMD magnesium oxide (Mag-Ox) 400 mg tablet 400 mg daily. Historical ProviderMD nicotine (Nicotrol) 10 MG inhaler Inhale 1 puff if needed for smoking cessation. Historical ProviderMD traMADol (Ultram) 50 MG tablet Take by mouth. Historical ProviderMD traZODone (Desyrel) 100 MG tablet Take 100 mg by mouth Nightly. Historical ProviderMD traZODone (Desyrel) 50 MG tablet Take 50 mg by mouth Nightly. Historical ProviderMD tuberculin (Tubersol) 5 UNIT/0.1ML injection Inject 5 Units into the skin Once. Historical ProviderMD Current Hospital Medications: No current facility-administered medications for this encounter. Allergies: Patient has no known allergies. Social History: Social History Socioeconomic History Marital status: Single Spouse name: Not on file Number of children: Not on file Years of education: Not on file Highest education level: Not on file Occupational History Not on file Tobacco Use Smoking status: Every Day Current packs/day: 0.50 Types: Cigarettes Smokeless tobacco: Not on file Vaping Use Vaping status: Never Used Substance and Sexual Activity Alcohol use: Yes Comment: once amonth Drug use: Yes Frequency: 1.0 times per week Types: Marijuana Sexual activity: Yes Other Topics Concern Not on file Social History Narrative Not on file Social Drivers of Health Financial Resource Strain: Not on file Food Insecurity: Not on file Transportation Needs: No Transportation Needs (06/19/2024) PRAPARE - Transportation Lack of Transportation (Medical): No Lack of Transportation (Non-Medical): No Physical Activity: Not on file Stress: Not on file Social Connections: Not on file Intimate Partner Violence: Not At Risk (06/19/2024) Humiliation, Afraid, Rape, and Kick questionnaire Fear of Current or Ex-Partner: No Emotionally Abused: No Physically Abused: No Sexually Abused: No Housing Stability: Low Risk (06/19/2024) Housing Stability Vital Sign Unable to Pay for Housing in the Last Year: No Number of Times Moved in the Last Year: 0 Homeless in the Last Year: No Family History: No family history on file. Further Family History is noncontributory to this injury. REVIEW OF SYSTEMS: Review of Systems - General ROS: negative for - chills, fatigue, fever, malaise or night sweats Psychological ROS: negative Ophthalmic ROS: negative ENT ROS: negative for - headaches or sore throat Hematological and Lymphatic ROS: negative for - bleeding problems or blood clots Respiratory ROS: no cough, shortness of breath, or wheezing Cardiovascular ROS: no chest pain or dyspnea on exertion Gastrointestinal ROS: negative Musculoskeletal ROS: See HPI Neurological ROS: negative for - bowel and bladder control changes, gait disturbance or numbness/tingling All other systems reviewed and are negative PHYSICAL EXAM: BP 105/60 Pulse 66 Temp 36.1 C (97 F) (Oral) Resp 16 Ht 1.626 m (5' 4) Wt 82.1 kg (181 lb) SpO2 94% BMI 31.07 kg/m GENERAL APPEARANCE: Awake and oriented x3. No acute distress, except appropriate to injury. MOOD AND AFFECT: Calm appropriate to situation GAIT AND STATION: Patient is in bed and unable to ambulate secondary to known injury. COORDINATION and BALANCE: Patient is grossly coordinated unable to ambulate secondary to known injury. Lymphadenopathy: none on examination of the affected extremity(s) Right Lower Extremity: Patient in patellar brace. No obvious deformities. Skin intact. Mild joint effusion. Tenderness over patella, lateral worse than medial. Full knee ROM without significant pain. Mild laxity and moderate pain noted with valgus/varus stress exams. Sensation grossly intact in L3-S2 nerve distributions.Brisk capillary refills. Labs: CBC: No results found for: WBC, RBC, HEMOGLOBIN BMP:No results found for: GLUCOSE, SODIUM, POTASSIUM, CHLORIDE, CO2, BUN, CREATININE,CALCIUM PT/INR: No results found for: PT, INR, APTT Type and Screen: No results found for: RH, LABANTI CRP: No results found for: CRP ESR: No results found for: SEDRATE HgBA1c: No components found for: LABA1C The above labs were reviewed by me. Radiology: The below images were independently reviewed and interpreted with pertinent findings noted below. 3 views of the right knee of a skeletally mature individual demonstrating a large eccentric lytic on the lateral tibial plateau. Lesion is contained within the cortex. MRI right knee demonstrating large lobulated eccentric lytic lesion as noted above. No fluid-fluid levels noted Radiology reports reviewed. ASSESSMENT: 49 y.o. male with R tibia lesion, impending pathologic fx PLAN: -D/w Dr. Hennessy -Plan for OR for R tibia biopsy with curettage, cement augmentation and prophylactic plating 06/20 -NPO@DC -Clearance/optimization pending -Med consult p -Consent p -Added -Labs -Ice -NWB RLE -Admit to Ortho -Pain control and medical management per medicine/APS -Please hold DVT prophylaxis in anticipation of OR -Please comment on clearance in case of OR, page ortho pgr [phone] with clearance status Jocelyn Lozada MD Orthopaedic Surgery PGY-5 *[id number] Cosigned by Joyce Hennessy MD at 06/20/2024 5:14 PM EST [id number] NoteOrtho H&P Patient: Yonathan De La Rosa of : 1975 Acct: [id number] PCP: Jared Forde MD Date of Admission: 06/19/2024 Date of Service: Pt seen/examined on 06/19/2024 Chief Complaint: right knee pain, inability to walk History Of Present Illness: This is a 49 y.o. male with PMH significant for epilepsy, Wernicke's encephalopathy, HTN, schizoaffective disorder, MD, TIA, PVD, COPD, depression/anxiety who presents to clinic for right knee pain that has been worsening over 5 years. He was referred to our clinic after XR/MRI demonstrated a right proximal tibial lesion. 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 At the time, there was no concern for fractures. Patient states that he was unable to walk 2 days after this injury and has been wheelchair bound since. Patient sought medical care due to worsening pain. He denies new injuries. Patient presents from a nursing facility due to his mental disorders and inability to take care of himself. He presents with health aide. Per aide, patient has episodes of emotional outbursts and has tendency to elope from health facilities. He is able to stand but is unable to take more than one step due to pain. Patient scoots himself in his wheelchair. He denies weakness, numbness, tingling. Pain is persistent but does improve with pain medications. Patient ambulation status: no difficulty and wheelchair bound Past Medical History: Past Medical History: Diagnosis Date Alcoholic dementia (HCC) Arthritis Bone lesion right tibia Convulsions (HCC) Depression Encephalopathy Epilepsy (HCC) Myocardial infarct, old Past Surgical History: History reviewed. No pertinent surgical history. Home Medications: Prior to Admission medications Medication Sig Start Date End Date Taking? Authorizing Provider acetaminophen (Tylenol) 325 MG tablet Take 650 mg by mouth. Historical Provider, aspirin 81 MG EC tablet Take 81 mg by mouth daily. Historical Provider, atorvastatin (Lipitor) 80 MG tablet Take 80 mg by mouth daily. Historical Provider, carboxymethylcellulose (Refresh Plus) 0.5 % ophthalmic solution 1 drop if needed for dry eyes. Historical Provider, cholecalciferol (Vitamin D-3) 1.25 MG (56646 UT) capsule Take 50,000 Units by mouth 1 (one) time per week. Historical ProviderMD cholecalciferol (Vitamin D3) 1.25 MG (14928 UT) tablet Take 50,000 Units by mouth 1 (one) time per week. Historical Provider, clopidogrel (Plavix) 75 MG tablet Take by mouth daily. Historical ProviderMD divalproex (Depakote) 250 MG EC tablet Take 250 mg by mouth 3 times daily. Do not crush, chew, or split. Historical ProviderMD fenofibrate (Tricor) 145 MG tablet Take 145 mg by mouth daily. Historical Provider, folic acid (Folvite) 1 MG tablet Take by mouth daily. Historical Provider, levETIRAcetam (Keppra) 750 MG tablet Take by mouth. Historical Provider, LORazepam (Ativan) 1 MG tablet Take 1 mg by mouth. Historical Provider, magnesium hydroxide (Milk of Magnesia) 400 MG/5ML suspension Take by mouth Nightly. Historical Provider, magnesium oxide (Mag-Ox) 400 mg tablet 400 mg daily. Historical Provider, nicotine (Nicotrol) 10 MG inhaler Inhale 1 puff if needed for smoking cessation. Historical Provider, traMADol (Ultram) 50 MG tablet Take by mouth. Historical Provider, traZODone (Desyrel) 100 MG tablet Take 100 mg by mouth Nightly. Historical ProviderMD traZODone (Desyrel) 50 MG tablet Take 50 mg by mouth Nightly. Historical ProviderMD tuberculin (Tubersol) 5 UNIT/0.1ML injection Inject 5 Units into the skin Once. Historical Provider, Current Hospital Medications: No current facility-administered medications for this encounter. Allergies: Patient has no known allergies. Social History: Social History Socioeconomic History Marital status: Single Spouse name: Not on file Number of children: Not on file Years of education: Not on file Highest education level: Not on file Occupational History Not on file Tobacco Use Smoking status: Every Day Current packs/day: 0.50 Types: Cigarettes Smokeless tobacco: Not on file Vaping Use Vaping status: Never Used Substance and Sexual Activity Alcohol use: Yes Comment: once amonth Drug use: Yes Frequency: 1.0 times per week Types: Marijuana Sexual activity: Yes Other Topics Concern Not on file Social History Narrative Not on file Social Drivers of Health Financial Resource Strain: Not on file Food Insecurity: Not on file Transportation Needs: No Transportation Needs (06/19/2024) PRAPARE - Transportation Lack of Transportation (Medical): No Lack of Transportation (Non-Medical): No Physical Activity: Not on file Stress: Not on file Social Connections: Not on file Intimate Partner Violence: Not At Risk (more content not included)...[facility]01-21-2025 History and physical note* Jocelyn Lozada MD - 06/19/2024 1:06 PM EST Images from the original note were not included. Ortho H&P Patient: Yonathan Fernandez Date of : 1975 Acct: [id number] PCP: Jared Forde MD Date of Admission: 06/19/2024 Date of Service: Pt seen/examined on 06/19/2024 Chief Complaint: right knee pain, inability to walk History Of Present Illness: This is a 49 y.o. male with PMH significant for epilepsy, Wernicke's encephalopathy, HTN, schizoaffective disorder, MD, TIA, PVD, COPD, depression/anxiety who presents to clinic for right knee pain that has been worsening over 5 years. He was referred to our clinic afterXR/MRI demonstrated a right proximal tibial lesion. 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 At the time,there was no concern for fractures. Patient states that he was unable to walk 2 days after this injury and has been wheelchair bound since. Patient sought medical care due to worsening pain. He denies new injuries. Patient presents from a nursing facility due to his mental disorders and inability to take care of himself. He presents with health aide. Per aide, patient has episodes of emotional outbursts and has tendency to elope from health facilities. He is able to stand but is unable to take more than one step due to pain. Patient scoots himself in his wheelchair. He denies weakness, numbness, tingling. Pain is persistent but does improve with pain medications. Patient ambulation status: no difficulty and wheelchair bound Past Medical History: Past Medical History: Diagnosis Date Alcoholic dementia (HCC) Arthritis Bone lesion right tibia Convulsions (HCC) Depression Encephalopathy Epilepsy (HCC) Myocardial infarct, old Past Surgical History: History reviewed. No pertinent surgical history. Home Medications: Prior to Admission medications Medication Sig Start Date End Date Taking? Authorizing Provider acetaminophen (Tylenol) 325 MG tablet Take 650 mg by mouth. Historical ProviderMD aspirin 81 MG EC tablet Take 81 mg by mouth daily. Historical Provider, atorvastatin (Lipitor) 80 MG tablet Take 80 mg by mouth daily. Historical Provider, carboxymethylcellulose (Refresh Plus) 0.5 % ophthalmic solution 1 drop if needed for dry eyes. Historical Provider, cholecalciferol (Vitamin D-3) 1.25 MG (97470 UT) capsule Take 50,000 Units by mouth 1 (one) time per week. Historical ProviderMD cholecalciferol (Vitamin D3) 1.25 MG (33638 UT) tablet Take 50,000 Units by mouth 1 (one) time per week. Historical Provider, clopidogrel (Plavix) 75 MG tablet Take by mouth daily. Historical Provider, divalproex (Depakote) 250 MG EC tablet Take 250 mg by mouth 3 times daily. Do not crush, chew, or split. Historical Provider, fenofibrate (Tricor) 145 MG tablet Take 145 mg by mouth daily. Historical Provider, folic acid (Folvite) 1 MG tablet Take by mouth daily. Historical Provider, levETIRAcetam (Keppra) 750 MG tablet Take by mouth. Historical Provider, LORazepam (Ativan) 1 MG tablet Take 1 mg by mouth. Historical Provider, magnesium hydroxide (Milk of Magnesia) 400 MG/5ML suspension Take by mouth Nightly. Historical Provider, magnesium oxide (Mag-Ox) 400 mg tablet 400 mg daily. Historical Provider, nicotine (Nicotrol) 10 MG inhaler Inhale 1 puff if needed for smoking cessation. Historical Provider, traMADol (Ultram) 50 MG tablet Take by mouth. Historical Provider, traZODone (Desyrel) 100 MG tablet Take 100 mg by mouth Nightly. Historical ProviderMD traZODone (Desyrel) 50 MG tablet Take 50 mg by mouth Nightly. Historical Provider, tuberculin (Tubersol) 5 UNIT/0.1ML injection Inject 5 Units into the skin Once. Historical Provider, Current Hospital Medications: No current facility-administered medications for this encounter. Allergies: Patient has no known allergies. Social History: Social History Socioeconomic History Marital status: Single Spouse name: Not on file Number of children: Not on file Years of education: Not on file Highest education level: Not on file Occupational History Not on file Tobacco Use Smoking status: Every Day Current packs/day: 0.50 Types: Cigarettes Smokeless tobacco: Not on file Vaping Use Vaping status: Never Used Substance and Sexual Activity Alcohol use: Yes Comment: once amonth Drug use: Yes Frequency: 1.0 times per week Types: Marijuana Sexual activity: Yes Other Topics Concern Not on file Social History Narrative Not on file Social Drivers of Health Financial Resource Strain: Not on file Food Insecurity: Not on file Transportation Needs: No Transportation Needs (06/19/2024) PRAPARE - Transportation Lack of Transportation (Medical): No Lack of Transportation (Non-Medical): No Physical Activity: Not on file Stress: Not on file Social Connections: Not on file Intimate Partner Violence: Not At Risk (06/19/2024) Humiliation, Afraid, Rape, and Kick questionnaire Fear of Current or Ex-Partner: No Emotionally Abused: No Physically Abused: No Sexually Abused: No Housing Stability: Low Risk (06/19/2024) Housing Stability Vital Sign Unable to Pay for Housing in the Last Year: No Number of Times Moved in the Last Year: 0 Homeless in the Last Year: No Family History: No family history on file. Further Family History is noncontributory to this injury. REVIEW OF SYSTEMS: Review of Systems - General ROS: negative for - chills, fatigue, fever, malaise or night sweats Psychological ROS: negative Ophthalmic ROS: negative ENT ROS: negative for - headaches or sore throat Hematological and Lymphatic ROS: negative for - bleeding problems or blood clots Respiratory ROS: no cough, shortness of breath, or wheezing Cardiovascular ROS: no chest pain or dyspnea on exertion Gastrointestinal ROS: negative Musculoskeletal ROS: See HPI Neurological ROS: negative for - bowel and bladder control changes, gait disturbance or numbness/tingling All other systems reviewed and are negative PHYSICAL EXAM: BP 105/60 Pulse 66 Temp 36.1 C (97 F) (Oral) Resp 16 Ht 1.626 m (5' 4) Wt 82.1 kg (181 lb) SpO2 94% BMI 31.07 kg/m GENERAL APPEARANCE: Awake and oriented x3. No acute distress, except appropriate to injury. MOOD AND AFFECT: Calm appropriate to situation GAIT AND STATION: Patient is in bed and unable to ambulate secondary to known injury. COORDINATION and BALANCE: Patient is grossly coordinated unable to ambulate secondary to known injury. Lymphadenopathy: none on examination of the affected extremity(s) Right Lower Extremity: Patient in patellar brace. No obvious deformities. Skin intact. Mild joint effusion. Tenderness over patella, lateral worse than medial. Full knee ROM without significant pain. Mild laxity and moderate pain noted with valgus/varus stress exams. Sensation grossly intact in L3-S2 nerve distributions.Brisk capillary refills. Labs: CBC: No results found for: WBC, RBC, HEMOGLOBIN BMP:No results found for: GLUCOSE, SODIUM, POTASSIUM, CHLORIDE, CO2, BUN, CREATININE,CALCIUM PT/INR: No results found for: PT, INR, APTT Type and Screen: No results found for: RH, LABANTI CRP: No results found for: CRP ESR: No results found for: SEDRATE HgBA1c: No components found for: LABA1C The above labs were reviewed by me. Radiology: The below images were independently reviewed and interpreted with pertinent findings noted below. 3 views of the right knee of a skeletally mature individual demonstrating a large eccentric lytic on the lateral tibial plateau. Lesion is contained within the cortex. MRI right knee demonstrating large lobulated eccentric lytic lesion as noted above. No fluid-fluid levels noted Radiology reports reviewed. ASSESSMENT: 49 y.o. male with R tibia lesion, impending pathologic fx PLAN: -D/w Dr. Hennessy -Plan for OR for R tibia biopsy with curettage, cement augmentation and prophylactic plating 06/20 -NPO@DC -Clearance/optimization pending -Med consult p -Consent p -Added -Labs -Ice -NWB RLE -Admit to Ortho -Pain control and medical management per medicine/APS -Please hold DVT prophylaxis in anticipation of OR -Please comment on clearance in case of OR, page ortho pgr [phone] with clearance status Jocelyn Lozada MD Orthopaedic Surgery PGY-5 *[phone] Cosigned by Joyce Hennessy MD at 06/20/2024 5:14 PM EST documented in this [facility]01-21-2025 History of Present illness Narrative* Joyce Hennessy MD - 06/19/2024 8:30 AM EST [facility] - [address] [place] [id number] Dept: [phone] Dept No chief complaint on file. SUBJECTIVE HPI This is a 49yo male with PMH significant for epilepsy, Wernicke's encephalopathy, HTN, schizoaffective disorder, MD, TIA, PVD, COPD, depression/anxiety who presents to clinic for right knee pain thathas been worsening over 5 years. He was referred to our clinic after XR/MRI demonstrated a right proximal tibial lesion. 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 At the time, there was no concern for fractures. Patient states that he was unable to walk 2 days after this injury and has been wheelchair bound since. Patient sought medical care due to worsening pain. He denies new injuries. Patient presents from a nursing facility due to his mental disorders and inability to take care of himself. He presents with health aide. Per aide, patient has episodes of emotional outbursts and has tendency to elope from health facilities. He is able to stand but is unable to take more than one step due to pain.Patient scoots himself in his wheelchair. He denies weakness, numbness, tingling. Pain is persistent but does improve with pain medications. 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 Past Medical History: Diagnosis Date Alcoholic dementia (HCC) Arthritis Bone lesion right tibia Convulsions (HCC) Depression Encephalopathy Epilepsy (HCC) Myocardial infarct, old Social History Socioeconomic History Marital status: Single Spouse name: Not on file Number of children: Not on file Years of education: Not on file Highest education level: Not on file Occupational History Not on file Tobacco Use Smoking status: Every Day Current packs/day: 0.50 Types: Cigarettes Smokeless tobacco: Not on file Vaping Use Vaping status: Never Used Substance and Sexual Activity Alcohol use: Yes Comment: once amonth Drug use: Yes Frequency: 1.0 times per week Types: Marijuana Sexual activity: Yes Other Topics Concern Not on file Social History Narrative Not on file Social Drivers of Health Financial Resource Strain: Not on file Food Insecurity: Not on file Transportation Needs: No Transportation Needs (06/19/2024) PRAPARE - Transportation Lack of Transportation (Medical): No Lack of Transportation (Non-Medical): No Physical Activity: Not on file Stress: Not on file Social Connections: Not on file Intimate Partner Violence: Not At Risk (06/19/2024) Humiliation, Afraid, Rape, and Kick questionnaire Fear of Current or Ex-Partner: No Emotionally Abused: No Physically Abused: No Sexually Abused: No Housing Stability: Low Risk (06/19/2024) Housing Stability Vital Sign Unable to Pay for Housing in the Last Year: No Number of Times Moved in the Last Year: 0 Homeless in the Last Year: No No past surgical history on file. No current facility-administered medications for this visit. Current Outpatient Medications Medication Sig Dispense Refill aspirin 81 MG EC tablet Take 1 tablet (81 mg) by mouth 2 times daily. 60 tablet 11 oxyCODONE-acetaminophen (Percocet) 5-325 MG tablet Take 1 tablet by mouth every 6 hours as needed for severe pain (7-10) for up to 7 days. 28 tablet 0 Facility-Administered Medications Ordered in Other Visits Medication Dose Route Frequency Provider Last Rate Last Admin acetaminophen (Tylenol) tablet 650 mg 650 mg Oral q6h Jocelyn Lozada MD 650 mg at 06/20/24 0420 aspirin EC tablet 81 mg 81 mg Oral BID Jocelyn Lozada MD atorvastatin (Lipitor) tablet 80 mg 80 mg Oral Daily Jocelyn Lozada MD 80 mg at 06/19/242033 ceFAZolin in dextrose 4% (Ancef) IVPB 2,000 mg 2,000 mg IntraVENous q8h Jocelyn Lozada MD Stopped at 06/20/24 1642 divalproex (Depakote) EC tablet 250 mg 250 mg Oral TID Jocelyn Lozada MD 250 mg at 06/20/24 1421 fenofibrate (Triglide) tablet 160 mg 160 mg Oral Daily Jocelyn Lozada MD 160 mg at 06/20/24 1420 gabapentin (Neurontin) capsule 300 mg 300 mg Oral Nightly Jocelyn Lozada MD 300 mg at 06/19/24 203 HYDROmorphone (Dilaudid) injection 0.25 mg 0.25 mg IntraVENous q4h PRN Jocelyn Lozada MD Or HYDROmorphone (Dilaudid) injection 0.5 mg 0.5 mg IntraVENous q4h PRN Jocelyn Lozada MD 0.5 mg at 06/20/24 1418 levETIRAcetam (Keppra) tablet 750 mg 750 mg Oral BID Jocelyn Lozada MD 750 mg at 06/20/24 1420 Lidocaine 4 % patch 1 patch 1 patch Topical Daily Jocelyn Lozada MD methocarbamol (Robaxin) tablet 1,000 mg 1,000 mg Oral q8h PRN Jocelyn Lozada MD naloxone (Narcan) injection 0.4 mg 0.4 mg IntraVENous q5 min PRN Jocelyn Lozada MD ondansetron ODT (Zofran-ODT) disintegrating tablet 4 mg 4 mg Oral q8h PRN Jocelyn Lozada MD Or ondansetron (Zofran) injection 4 mg 4 mg IntraVENous q6h PRN Jocelyn Lozada MD 4 mg at 06/20/24 1000 oxyCODONE (Roxicodone) immediate release tablet 5 mg 5 mg Oral q4h PRN Jocelyn Lozada MD Or oxyCODONE (Roxicodone) immediate release tablet 10 mg 10 mg Oral q4h PRN Jocelyn Lozada MD 10 mg at06/20/24 204 polyethylene glycol (PEG) 3350 (Miralax) packet 17 g 17 g Oral Daily PRN Jocelyn Lozada MD sodium chloride 0.9 % infusion 5-250 mL/hr IntraVENous PRN Jocelyn Lozada MD sodium chloride 0.9% (NS) flush 5-40 mL 5-40 mL IntraVENous q12h Jocelyn Lozada MD 10 mL at 06/20/24 0115 sodium chloride 0.9% (NS) flush 5-40 mL 5-40 mL IntraVENous PRN Jocelyn Lozada MD Review of Systems Musculoskeletal: Positive for gait problem. Right knee pain for past 5 years starting 2 days after participating in jumping event Has difficulty walking, able to stand wearing knee brace Neurological: Positive for weakness. Psychiatric/Behavioral: History of mental issues All other systems reviewed and are negative. OBJECTIVE There were no vitals filed for this visit. Physical Exam Physical Exam Vitals and nursing note reviewed. Constitutional: Appearance: Normal appearance. Cardiovascular: Rate and Rhythm: Normal rate. Pulmonary: Effort: Pulmonary effort is normal. Skin: General: Skin is warm and dry. Neurological: General: No focal deficit present. Mental Status: He is alert and oriented to person, place, and time. Psychiatric: Mood and Affect: Mood normal. Behavior: Behavior normal. MSK: In wheelchair. Patient in patellar brace. No obvious deformities. Skin intact. Mild joint effusion. Tenderness over patella, lateral worse than medial. Full knee ROM without significant pain. Mild laxity and moderate pain noted with valgus/varus stress exams. Sensation grossly intact in L3-S2 nerve distributions. Brisk capillary refills. XRAY INTERPRETATION I have reviewed the actual outside facility imaging studies obtained and interpreted them at the time of the visit 3 views of the right knee of a skeletally mature individual demonstrating a large eccentric lytic on the lateral tibial plateau. Lesion is contained within the cortex. MRI right knee demonstrating large lobulated eccentric lytic lesion as noted above. No fluid-fluid levels noted ASSESSMENT 1. 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 I am worried that a delay in surgical management of this lesion may lead to a pathologic fracture that may require more complicated surgeries. I reassured them that this is benign but there is an urgency to surgical treatment in the form of right lateral tibial plateau biopsy and curettage, cementing of bony void, and lateral tibial plateau plate application. We discussed the risk, benefits, and alteratives of this procedure, and he voiced understanding. All questions were answered. I recommended hospital admissiontoday for surgery tomorrow. He will require medical clearance. In the meantime, he will remain non-weightbearing to right lower extremity. Post- operatively, he will WBAT. Patient [facility] be [facility] today. He will return to clinic in 2-3 weeks post-operatively. No follow-ups on file. Voice recognition was used for portions of this note and although it was reviewed prior to signing some incorrect words or phrases could be present. Electronically signedby Joyce Hennessy MD on 06/20/2024 at 9:08 PM documented in this [facility]02-24-2022 Miscellaneous Notes* Nursing - Anahy Gomez RN - 07/23/2021 1:14 AM EST Accessing chart to look at dosage of librium. * Nursing - Divine Franklin RN - 07/04/2021 9:35 PM EST [facility] ambulance here to hot die picker the patient at this time. * Nursing - Leeanne Sifuentes RN - 07/04/2021 6:28 PM EST Disclosure Reporting Form Page 1 of this form is to be used for reporting applicable disclosures to fulfill our obligation tomaintain a record of disclosures made of protected health information about our patients. This formwill be automatically faxed to the Licensed Mortician of Health Information Management Department. You may also forward the completed form to the Licensed Mortician of Health Information Management Department via interoffice mail (HIM offsite). 1. Patient Information Yonathantaisha Ceballosell 1975 Name of patient whose information was disclosed [facility] [facility] [id number] Patient's address Patient's medical record number and / or account number 2. Destination of the Disclosure Ambulance Service: [facility] Ambulance service [address] [place] [id number] and (external) [id number] (internal) 07/04/2021 Disclosure made to, Address and Telephone and/or fax # Date of disclosure 3. Description of the Information Disclosed Admission & Discharge Date History & Physical Physician Notes Aftercare Plan Lab Tests Social History Cardiac Cath. Reports Nurses Notes Social Service Notes Discharge Summary Operative Notes X-ray Reports Drug Use History Pathology Report X Ambulance Transfer Form EKG Reports Photographs, videotapes, digital or other images Other: 4. Purpose/Reason for the Disclosure Ambulance Transport -Continuity of Care Other: 5. Employee Information Leeanne Sifuentes RN [facility] ([facility]) [phone] Employee Signature with credentials Department/Galt/Office Telephone Number [facility] AMBULANCE TRANSFER FORM Provide to ambulance for continuity of care during transport. Patient Name:Yonathan Fernandez Panda.B: 1975 Code Status: Full Code Medical Diagnosis: Patient Active Problem List Diagnosis Tobacco abuse Shoulder pain Left arm numbness Insomnia Chest pain radiating to arm 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) Acute alcohol intoxication, uncomplicated (HCC) High cholesterol Atypical chest pain PROBABLE Acute alcoholic gastritis without hemorrhage Gastroesophageal reflux disease without esophagitis Acute chest pain Loss of consciousness (HCC) Seizure-like activity (HCC) Hypokalemia Alcohol withdrawal (HCC) Ataxia Alcohol abuse Coronary artery disease involving [place] coronary artery of [place] heart with angina pectoris (HCC) Elevated lipase Alcoholic ketoacidosis Seizure disorder (HCC) Acute kidney injury (HCC) Hypothermia, initial encounter Other specified hypotension Elevated lactic acid level Leukocytosis, unspecified type Last Set of Vital Signs: Blood pressure (!) 153/93, pulse 94, temperature 98 F (36.7 C), temperature source forehead, resp. rate 18, weight 69.9 kg (154 lb 3.2 oz), SpO2 98 %. Past Medical History: Diagnosis Date Alcohol abuse Fall 11/16/2020 Hyperlipidemia Hypertension Myocardial infarct (HCC) Seizures (HCC) Allergies: Patient has no known allergies. Medications: Current Facility-Administered Medications Medication Dose Route Frequency Provider Last Rate Last Admin acetaminophen (TYLENOL) tablet 650 mg 650 mg Oral Q4H PRN David Zaldivar MD albuterol 2.5mg-ipratropium 0.5mg/3ml (DUONEB) nebulizer soln 3 mL 3 mL Nebulization Q6H PRN David Zaldivar MD amitriptyline (ELAVIL) tablet 75 mg 75 mg Oral Nightly David Zaldivar MD 75 mg at 07/03/212038 amoxicillin-clavulanate (AUGMENTIN) 875-125 MG per tablet 875 mg 875 mg Oral 2 times per day Angela Denson MD 875 mg at 07/04/211816 aspirin chewable tablet 81 mg 81 mg Oral Daily David Zaldivar MD 81 mg at 07/04/21 09 atorvastatin (LIPITOR) tablet 80 mg 80 mg Oral Nightly David Zaldivar MD 80 mg at 07/03/212038 bisacodyl (DULCOLAX) EC tablet 5 mg 5 mg Oral Daily PRN David Zaldivar MD chlordiazePOXIDE (LIBRIUM) capsule 5 mg 5 mg Oral 3 times per day Angela Denson MD 5 mg at 07/04/21 151 clopidogrel (PLAVIX) tablet 75 mg 75 mg Oral Daily David Zaldivar MD 75 mg at 07/04/21 09 dextrose 5% solution Intravenous Continuous PRN Joseph Guerrero MD dextrose 5% solution Intravenous Continuous PRN Joseph Guerrero MD folic acid (FOLVITE) tablet 400 mcg 400 mcg Oral Daily Jamison Kidd MD 400 mcg at 07/04/21 0908 For electrolyte abnormalities subsequent to initial labs (refer to the [facility] Electrolyte Replacement Orders) 1 each 1 each Other Daily PRN Joseph Guerrero MD heparin (porcine) injection 5,000 Units 5,000 Units Subcutaneous 2 times per day David Zaldivar MD 5,000 Units at 07/04/211816 hydrALAZINE (APRESOLINE) injection 10 mg 10 mg Intravenous Q6H PRN Clarence Partida MD 10 mg at 06/26/211824 hydrOXYzine (ATARAX) tablet 50 mg 50 mg Oral Q6H PRN Arjun Leon NP 50 mg at 07/03/212038 lactated ringers infusion Intravenous Continuous Jamison Kidd MD 100 mL/hr at 07/03/21 172 New Bag at 07/03/21 172 levETIRAcetam (KEPPRA) tablet 750 mg 750 mg Oral 2 times per day Jamison Kidd MD 750 mg at 07/04/211816 lisinopril (PRINIVIL,ZESTRIL) tablet 20 mg 20 mg Oral Daily before lunch Arjun Leon NP 20 mg at 07/04/21 1519 LORazepam (ATIVAN) tablet 2-4 mg 2-4 mg Oral Q1H PRN Joseph Guerrero MD Or LORazepam injection 2-4 mg 2-4 mg Intramuscular Q1H PRN Joseph Guerrero MD Or LORazepam injection 2-4 mg 2-4 mg IV Push Q1H PRN Joseph Guerrero MD 2 mg at 07/03/212215 Magnesium Oxide (MAG-OX) tablet 400 mg 400 mg Oral Daily Arjun Leon NP 400 mg at 07/04/21 09 Metoprolol Tartrate (LOPRESSOR) tablet 25 mg 25 mg Oral 2x Daily Arjun Leon NP 25 mg at 07/04/211816 nicotine (NICODERM CQ) 21 MG/24HR 1 patch 21 mg Transdermal Daily David Zaldivar MD 1 patch at 07/04/21 09 nicotine polacrilex (COMMIT) lozenge 4 mg 4 mg Oral PRN David Zaldivar MD ondansetron hcl (ZOFRAN) injection 4 mg 4 mg IV Push Q6H PRN David Zaldivar MD pantoprazole (PROTONIX) EC tablet 40 mg 40 mg Oral QPM BEFORE DINNER Jamison Kidd MD 40 mg at07/04/211816 polyethylene glycol 3350 (GLYCOLAX, MIRALAX) packet 17 g 17 g Oral 2x Daily Jamison Kidd MD 17 g at 07/03/21 172 Protein pudding supplement 4 oz 4 oz Oral 3x Daily (dietary) Kolton Ashby, RD,LD 4 oz at 518 senna-docusate (PERICOLACE) 8.6-50 MG per tablet 1 tablet 1 tablet Oral 2x Daily David Zaldivar MD 1 tablet at 07/04/211816 thera vitamin tablet 1 tablet 1 tablet Oral Daily Joseph Guerrero MD 1 tablet at 07/04/21906 Thiamine Mononitrate (VITAMIN B-1) tablet 100 mg 100 mg Oral Daily Jamison Kidd MD 100 mg at 07/04/21 0907 Employee Information Leeanne Sifuentes RN [facility] ([facility]) [phone] Employee Signature with credentials Department/Galt/Office Telephone Number CONFIDENTIALITY NOTICE: The information contained on this sheet is privileged and confidential and is intended for the use of the ambulance staff during transport of the patient. Any disclosure, dissemination, distribution, copying or other use of the information is prohibited. * Nursing - Leeanne Sifuentes RN - 07/04/2021 4:54 PM EST [facility] to hot die picker pt for transport at approx 2100 tonight. * Leeanne Ferraro RN - 07/04/2021 4:45 PM EST Attempted to call report to [facility], nursing staff unavailable. Message left to return call for report. * Leeanne Ferraro RN - 07/04/2021 2:[address] Chan notified of pt being unable to void and bladder scan completed. Order given to place griffin and have pt follow up with Urology after discharge. * D/C Planning - Celia Eldridge BSW - 07/04/2021 11:56 AM EST Plans completed for pt to transfer to the [facility] today. Spoke with Gina at the [facility] ([phone]). She said they have adm info on him. PASRR completed. Documents being placed by Roselia ROJAS in [place] transferpacket and copy on hard chart. Spoke with Leeanne VALENCIA re above. She says she will make sure Covid test completed. Case closed. * Nursing - Divine Franklin RN - 07/04/2021 6:29 AM EST Patient has no noted changes to assessment from previous, continues to be alert to self, he refusedto take 0600 PO meds this am, he states I can't right now because I am tired and ain't even wearing pants. Some medications rescheduled for later in the am, he denies needs at this time. CVS at bedside. * Nursing - Lakshmi Newton RN - 07/03/2021 3:21 PM EST aFocused assessment completed at this time. Pt resting in bed eating pudding and watching TV. Pt ismuch more cooperative this day and has taken all PO meds and eaten meals with staff assistance. Pt states he is feeling better. But is c/o of productive cough. Pt started on Augmentin today. Pt alertto self only. Pt has remained calm throughout day. Mother updated today. * Rehab Therapies - Amilcar [id number] CCC-RECORDIST - 07/03/2021 12:52 PM EST Name: Yonathan Fernandez CAT: [id number] Dysphagia tx completed. Impressions: No significant changes in status this date. Pt was resting in bed upon RECORDIST arrival andwas appropriate for therapy. Per MST, pt had questionable cough when eating oatmeal this AM, therefore RECORDIST reassessed tolerance of solids. RECORDIST provided cup of applesauce and observed as pt fed himself. Oropharyngeal swallow was WFL and no overt sx of aspiration were noted. Laryngeal/pharyngeal strengthening exercises were then attempted but pt wanted to rest. Session ended s/t same. Recommendations: RECORDIST to recommend soft and bite-sized diet, thin liquids, meds as tolerated or whole/crushed in pudding, upright for all PO intake, alternate small bites/small sips, and oral care following meals. Will continue tx per POC, with further post-acute intensive ST services 3-5x/wk at d/c. RN aware of recommendations. Thank you! 07/03/21 1025 Physician Order Physician Order Swallowing Swallowing Current Status - Oral Phase Minimal/Mild Impairment Current Status - Pharyngeal Phase Within Functional Limits;Minimal/Mild Impairment FOIS Items Total oral diet with multiple consistencies, but requiring special prep or compensations Swallowing - Diet Consistency Recommendations Current Diet Consistency Soft and Bite-Sized Liquid Diet Level Thin Medication Recommendation Regular;Crushed with Pudding/Apple Sauce Session Information Chart Review Completed Pain Assessment No Pain Reported Discharge Recommendations 24 hour care;Further Post-Acute Intensive RECORDIST Services 3-5x/wk Comments (SOAP note) Dysphagia tx completed. No significant changes in status this date. Pt was resting in bed upon RECORDIST arrival and was appropriate for therapy. Per MST, pt had questionable cough when eating oatmeal this AM, therefore RECORDIST reassessed tolerance of solids. RECORDIST provided cup of applesauce and observed as pt fed himself. Oropharyngeal swallow was WFL and no overt sx of aspiration were noted. Laryngeal/pharyngeal strengthening exercises were then attempted but pt wanted to rest. RECORDIST Procedure Charges Swallowing/Dysphagia Treatment < 1 hour Time Calculation Start Time 1025 Stop Time 1040 Time Calculation 15 Speech Education Education No family available * D/C Planning - Ciara Frey RN - 07/03/2021 11:00 AM EST KHURRAM spoke with Namrata at [facility] [phone]. Namrata states that the patient is good for discharge on their end she only asks that the CM notify her when he is due to be discharged. CM phoned physician. He is anticipating discharge in 1-2 days. Namrata notified of the same. She will notify Zach. We will not need to wait on a pre-cert to come back. He can transfer under the waiver. Patient will need COVID test within 2 days of discharge. HENS will need completed by CM. * Nursing - Amy Brown RN - 07/03/2021 6:20 AM EST End of Shift: New IV in LA d/t infiltrate in LAC. Keppra admin IV, banana bag completed and LR continuous running. Pt refused all PO meds and intake. Attempted to admin meds crushed in protein pudding and pt refuses all. CIWA's remain <8. CVS remains in place. Pt slightly agitated at beginning of shift but calm and cooperative for remainder. Pt resting in bed at this time. Mom called in earlier in shift and provided with update. No further needs expressed. * Nursing - Talisha Morris RN - 07/02/2021 11:26 PM EST Mom calls for updates at this time, states that she was told that no nursing homes would take him because he is a drug and alcohol addict. Mom states he has never done drugs, he smoked weed awhileback but that was it and that's the honest to God truth. Mom then states they can do a drug test on him and see that he didn't have anything in his system. Mom is requesting that the nursing homesbe called back and told it was a mistake and that she needs him to go to a penitentiary in [place] because she is disabled and will not be able to visit outside of [place]. * Nursing - Lakshmi Newton RN - 07/02/2021 5:03 PM EST Focused assessment completed at this time. Pt adjusted in bed at this time and is resting comfortably with eyes closed. Pt is still refusing any PO medication or PO intake. When trying to get pt to cooperate with any tasks he becomes verbally and physically aggressive, and begins yelling at staff. Pt alert to self only and disoriented to place, time, and situation. Pt turning self in bed and CVS remains on pt for safety. Griffin in place and draining clear yellow urine. VSS and respiration are easy, unlabored and regular. Pt medicated with PRN Ativan per orders once this shift. Pt behavior did improve with ativan. * D/C Planning - Anahy Avitia Social Worker - 07/02/2021 2:32 PM EST Spoke with Namrata from [facility] and pt has been clinically accepted for admission, they will hold a bed for pt. needs to keep them update on dc date at [phone]. * D/C Planning - Anahy Avitia Social Worker - 07/02/2021 2:10 PM EST Lilo from [facility] voiced that pt is a denial for their [place] and [place] facilities. * D/C Planning - Anahy Avitia Social Worker - 07/02/2021 1:56 PM EST Called Lilo with [facility], NA. * D/C Planning - Anahy Avitia Bioinformatics Assistant - 07/02/2021 1:14 PM EST Attempted to call pts Mother to discuss dcp and that no place in [place] has accepted pt for admand that I will have to send pt out of town, NA. LM requesting a return call. 1:22 pm Pts Mother phoned back and I updated Her of same, She voiced understanding. * Nursing - Lakshmi Newton RN - 07/02/2021 12:53 PM EST Pt unwilling to let this RN assess backside * Nursing - Lakshmi Newton RN - 07/02/2021 11:54 AM EST Pt mother, Shanice, updated at this time * D/C Planning - Anahy Avitia Bioinformatics Assistant - 07/02/2021 11:51 AM EST 10:18 am phoned Gianfr[facility] of [facility]. 11:48 am phoned g[facility]franco khalil [facility] Then sent ref to [facility]. Phoned ref, [facility], requesting a return call. * Rehab Therapies - Sherri Iraheta CCC-RECORDIST - 07/02/2021 11:09 AM EST Name: Yonathan Fernandez CAT: [id number] Dysphagia tx attempted. Pt is currently having increased withdrawal sx and is significantly more confused than previous date. ST entered room to work with pt, and he was speaking incoherently. Per RN, pt spit at her earlierthis date and has been agitated. S/t same and observations, RECORDIST did not try exercises or trials. Will resume services as able on 07/03. Thank you. * Rehab Therapies - Autumn Khan PTA - 07/02/2021 10:18 AM EST Attempted PT this morning, the doctor exits the room and reports the pt is having increased withdrawal sx's and is hallucinating currently, he will change meds and we will continue to follow as appropriate. * Nursing - Lakshmi Newton RN - 07/02/2021 8:30 AM EST Pt very agitated this am. Pt will not take PO medications or eat any food. Pt having auditory and visual hallucinations. Pt thinks that he is at home and that the staff is trespassing. Pt Alert to self and disoriented to place, situation, and time. Pt very hard to understand with slurred speech. Ptspitting at this RN and gets physically aggressive when approached. Pt on CVS for safety. * Nursing - Varsha Colon RN - 07/02/2021 4:[address] Whitaker that patient has been increasingly agitated, trying to get out of bed, pulling attubing, and being verbally abusive, and unable to redirect patient. Received order for Depacon 500mg x 1 dose * Nursing - Nelly Bellamy RN - 07/01/2021 5:00 PM EST Pt sitting up in bed awake. Unable to eat dinner himself without assistance. No s/sx of distress. respirations easy and unlabored. Pt denies any needs at this time. CVS in place for safety. Will continue to monitor. * D/C Planning - Anahy Avitia Social Worker - 07/01/2021 4:09 PM EST [facility] declined pt for admission. Ref sent to [facility]. * Plan of Care - Kolton Ashby RD,ISSA - 07/01/2021 2:43 PM EST Medical Nutrition Follow Up: Recommendation: Continue with intervention in place Interventions: Food and/or Nutrient Delivery: Meals Provided Medical Supplements to provide additional needed nutrition IV fluids: Lactated Ringers continuous at 100 ml/hr Nutrition Education: Will be available if needs arise Nutrition Diagnosis: NI: Inadequate oral intake Related to: Current medical status and Respiratory failure As evidenced by: NPO diet order 06/24, mechanical ventilation 06/26, Regular diet easy to chew ( 7) 06/28 with no intakes recorded Increased nutrient needs: energy and protein Related to: Increased needs to promote healing As evidenced by: Documented wound(s) Malnutrition Assessment/Nutrition Diagnosis: Does not meet ASPEN criteria for malnutrition Goal/Monitoring/Evaluation: Goals: Adequate Intakes: Progressing Initiation of Nutrition Goal met Tolerates oral diet: Progressing Monitoring/Evaluation: Food and Beverage Intake Medical Nutrition Supplement Body composition/growth/weight history Assessment: Follow up Due To: Routine follow up Subjective: Patient much more alert and interactive today versus last two visits and sitting in side chair. Pernursing student on unit, she needed to feed patient his lunch, but he ate every bite. At time of visit patient had milk, juice, water at chair- side (now okay for straws). Currently providing protein pudding TID and recorded as accepting 4/7 provided. Weight +2 lbs last 48 hours. Will monitor meal in takes for adequacy. Anthropometric Measurements: Patient Vitals for the past 750 hrs: Weight 06/30/21 0300 68.6 kg (151 lb 4.8 oz) 06/29/21 0524 67.7 kg (149 lb 3.2 oz) 06/28/21 0403 72.6 kg (160 lb) 06/27/21 0017 57.2 kg (126 lb 1.7 oz) 06/25/21 2356 55.4 kg (122 lb 2.2 oz) 06/24/21 2359 54.7 kg (120 lb 9.5 oz) 06/24/21 2155 54.7 kg (120 lb 9.5 oz) 06/24/21 1747 70.3 kg (155 lb) Estimated Nutritional Needs: Estimated Energy Needs Total Energy Estimated Needs: 1710-3896 kcal Method for Estimating Needs: 25-30 kcal/kg 54.7 kg Estimated Protein Needs Total Protein Estimated Needs: 66-109 g Method for Estimating Needs: 1.2-2 g/kg 54.7 kg Diet Orders: Diet Orders (From admission, onward) Start Ordered 06/30/21 1040 Regular Diet Soft and Bite Size 6; Feeds Self with Supervision No Straws DIET EFFECTIVE NOW Comments: No Straws 06/30/21 1040 DIETARY SUPPLEMENT/TUBE FEED ORDERS (From admission, onward) Ordered Start Stop 06/29/21 1311 Protein pudding supplement 4 oz 4 oz, Oral, 3 TIMES PER DAY (DIETARY) 06/29/21 1400 -- Intakes Recorded: Patient Vitals for the past 168 hrs: Percent Meals Eaten (%) 07/01/21 1314 100 % 06/30/21 2233 0 % 06/30/21 1709 10 % 06/30/21 1256 10 % 06/30/21 1052 0 % 06/29/21 1300 0 % 06/29/21 0858 0 % 06/28/21 1202 10 % Principal Problem: Alcohol withdrawal (HCC) Admission Diagnosis: Alcohol withdrawal (HCC) Other specified hypotension Elevated lactic acid level Hypothermia, initial encounter Alcohol withdrawal syndrome, with delirium (HCC) Leukocytosis, unspecified type Pertinent Laboratory Values:. Lab Results Component Value Date/Time GLU 91 07/01/2021 0754 POCGLU 114 (H) 06/28/2021 1213 BUN 3 (L) 07/01/2021 0754 CREATININE 0.40 (L) 07/01/2021 0754 K 3.9 07/01/2021 0754 PHOS 3.4 07/01/2021 0754 MG 1.7 07/01/2021 0754 NA 132 (L) 07/01/2021 0754 HGB 9.4 (L) 07/01/2021 0930 GFR >60 07/01/2021 0754 Medications: Current Facility-Administered Medications Medication acetaminophen (TYLENOL) tablet 650 mg albuterol 2.5mg-ipratropium 0.5mg/3ml (DUONEB) nebulizer soln 3 mL amitriptyline (ELAVIL) tablet 75 mg aspirin chewable tablet 81 mg atorvastatin (LIPITOR) tablet 80 mg bisacodyl (DULCOLAX) EC tablet 5 mg clopidogrel (PLAVIX) tablet 75 mg dextrose 5% solution folic acid (FOLVITE) tablet 400 mcg For electrolyte abnormalities subsequent to initial labs (refer to the [facility] Electrolyte Replacement Orders) 1 each heparin (porcine) injection 5,000 Units hydrALAZINE (APRESOLINE) injection 10 mg hydrOXYzine (ATARAX) tablet 50 mg lactated ringers infusion levETIRAcetam (KEPPRA) tablet 750 mg lisinopril (PRINIVIL,ZESTRIL) tablet 20 mg LORazepam (ATIVAN) tablet 2-4 mg Or LORazepam injection 2-4 mg Or LORazepam injection 2-4 mg Magnesium Oxide (MAG-OX) tablet 400 mg Metoprolol Tartrate (LOPRESSOR) tablet 25 mg nicotine (NICODERM CQ) 21 MG/24HR 1 patch nicotine polacrilex (COMMIT) lozenge 4 mg ondansetron hcl (ZOFRAN) injection 4 mg pantoprazole (PROTONIX) EC tablet 40 mg polyethylene glycol 3350 (GLYCOLAX, MIRALAX) packet 17 g Protein pudding supplement 4 oz senna-docusate (PERICOLACE) 8.6-50 MG per tablet 1 tablet thera vitamin tablet 1 tablet Thiamine Mononitrate (VITAMIN B-1) tablet 100 mg Nursing Physical Findings from Flowsheets: Gastrointestinal (WDL): Exceptions to WDL Gastrointestinal Abdomen Inspection: Soft, Rounded Bowel Sounds (All Quadrants): Active Tenderness: Soft, No guarding Nausea/Vomiting: Denies any nausea or vomiting Is patient having diarrhea: Complains of diarrhea Liver/Spleen Palpation: Unable to assess Passing Flatus: Yes Bowel Movement: 2/2 Integumentary Skin Color (WDL): Within Defined Limits Skin Color: [place] Skin Integrity (WDL): Within Defined Limits Impaired skin integrity: See LDA Skin Checked Under Oxygen Device: Intact Skin Condition (WDL): Exceptions to WDL Skin Condition: Abrasion, Bruising Location: Scattered Orientation: Right, Left Multiple Sites: 2 Wounds/NPWT Active Wound / Wound Therapy Name Placement date Placement time Site Days Wound 06/24/21 Skin Tear Buttocks Medial 06/24/21 2155 Buttocks 6 Peripheral Vascular Peripheral Vascular (WDL): Within Defined Limits R Temporal Pulse: Moderate L Temporal Pulse: Moderate Anti-Embolism Devices: Bilateral lower extremity SCDs Bilateral LE SCDs: On Edema: None noted Facial: Mild pitting, slight indentation * Rehab Therapies - Amilcar [id number], MALI Polanco-RECORDIST - 07/01/2021 11:09 AM EST Name: Yonathan Fernandez CAT: [id number] Dysphagia tx completed. Impressions: No significant changes in status this date. Pt was alert and appropriate for tx when RECORDIST arrived for session. Pt's breakfast tray was at bedside, pt appearing to have eaten some items. Pt denied subjective issues with eating or swallowing during meal. Pt remains confused but was able to follow commands with cues, so the following laryngeal/pharyngeal strengthening exercises were completed: falsetto /i/ 20x and sustained /a/ 20x. Pt also completed the following OME: lingual protrusion 20x, lingual retraction 20x, lingual lateralization 40x, and labial protrusion 10x. Pt needed maximal cues to complete exercises correctly. Pt's alertness appears improved from initial evaluation, so thin liquids were reassessed by straw. Pt accepted multiple trials and demonstrated tolerance with no overt sx of aspiration. Pt had no questions or concerns at end of session. Recommendations: RECORDIST to recommend soft and bite-sized diet, thin liquids, meds as tolerated or whole/crushed in pudding, upright for all PO intake, alternate small bites/small sips, and oral care following meals. Will continue tx per POC, with further post-acute intensive ST services 3-5x/wk at d/c. RN aware of recommendations. Thank you! 07/01/21 0905 Physician Order Physician Order Swallowing Swallowing Current Status - Oral Phase Minimal/Mild Impairment Current Status - Pharyngeal Phase Within Functional Limits;Minimal/Mild Impairment FOIS Items Total oral diet with multiple consistencies, but requiring special prep or compensations Swallowing - Diet Consistency Recommendations Current Diet Consistency Soft and Bite-Sized Liquid Diet Level Thin Medication Recommendation Regular;Crushed with Pudding/Apple Sauce Session Information Chart Review Completed Pain Assessment No Pain Reported Discharge Recommendations 24 hour care;Further Post-Acute Intensive RECORDIST Services 3-5x/wk Comments (SOAP note) Dysphagia tx completed. No significant changes in status this date. Pt was alert and appropriate for tx when RECORDIST arrived for session. Pt's breakfast tray was at bedside, pt appearing to have eaten some items. Pt denied subjective issues with eating or swallowing during meal. Ptremains confused but was able to follow commands with cues, so the following laryngeal/pharyngeal strengthening exercises were completed: falsetto /i/ 20x and sustained /a/ 20x. Pt also completed thefollowing OME: lingual protrusion 20x, lingual retraction 20x, lingual lateralization 40x, and labial protrusion 10x. Pt needed maximal cues to complete exercises correctly. Pt's alertness appears improved from initial evaluation, so thin liquids were reassessed by straw. Pt accepted multiple trials and demonstrated tolerance with no overt sx of aspiration. RECORDIST discussed plan to continue therapy,and pt had no questions or concerns. RECORDIST Procedure Charges Swallowing/Dysphagia Treatment < 1 hour Time Calculation Start Time 904 Stop Time 0950 Time Calculation 45 Speech Education Education No family available * Rehab Therapies - Miranda Calixto, PT, DPT - 07/01/2021 10:45 AM EST Images from the original note were not included. PT Initial Evaluation Name: Yonathan Fernandez Date of : 1975 Admission Date: 06/24/2021 PT Recommendation Recommendations/Continuum of Care: Further post-acute services 3-5x/week (i.e. Subacute Rehab) Comments: Pt may benefit from follow up skilled PT working to improve his functional balance and safety with all mobility. Ambulation Distance: a few steps bed->chair Ambulation Level of Assistance: Moderate assistance, Two-person assist Equipment Recommended: Front wheeled walker, Manual wheelchair Barriers to discharge: Fall risk, 24 hour care needed for safety AM-PAC Raw Score: 12 Requires PT Follow Up: Yes Re-Eval date: (max 2wks): 07/15/21 Plan of Care date: (max 2wks): 07/15/21 PT Plan Treatment/Interventions: Functional transfer training, LE strengthening/ROM, Endurance training, Cognitive reorientation, Equipment eval/education, Bed mobility, Gait training, Balance training PT Frequency: 3-5 days/wk PT Evaluation/Assessment History of present illness:Principal Problem: Alcohol withdrawal (HCC) Past Medical History: has a past medical history of Alcohol abuse, Fall (11/16/2020), Hyperlipidemia, Hypertension, Myocardial infarct (HCC), and Seizures (HCC). Past Surgical History: has a past surgical history that includes hernia repair, arm surgery, Vasectomy, TONSILLECTOMY, Coronary angioplasty with stent, and Coronary angioplasty with stent. Consent Informed consent: Yes Consent reviewed with Family/Caregiver: No Comments: No family present. Patient is a 46y/o male admitted to acute care secondary to EtOH withdrawal. [facility] as/medical chart. Patient reports of L hip pain but is agreeable to participate with thisPT assessment. He presents with severe static/dynamic seated and standing balance deficits and has limited safety awareness re his increased risk for falling. He will benefit from follow up skilled PT working to improve these areas of impairment. Patient's Goal Patient's Therapy Goal(s): to be able to stand without loosing his balance Restrictions/Precautions Right Lower Extremity Weight Bearing: No restrictions Left Lower Extremity Weight Bearing: No restrictions Fall Risk: Yes Fall Risk - attributed to: Unstable medical status;Poor safety awareness;Confusion Cognition Level of Consciousness: Alert/Awake Orientation Level: Oriented to person Cognition: Follows commands;Impulsive;Poor judgement;Poor safety awareness;Poor attention/concentration Speech/Language: Slurred (Rambles off topic repeatedly; difficult to follow) Awareness of Errors: Decreased awareness of errors Safety Awareness: Decreased awareness of need for safety Deficits: Not aware of deficits Problem Solving: Assistance required to implement solutions Motor Planning: Poor Home Living Type of Home: House Lives With: Family Home Layout: More than one level Multi-level Home Details: Able to live on main level Home Adaptive Equipment: Rollator;Single point cane Information Provided By: Patient Comments: Pt presents as confused but able to provide the information listed above; not sure about accuracy. Prior Function Level of [place]: Independent with ADLs;Independent with functional mobility;Independent with homemaking from ambulatory level Assistance Available?: No Physical Therapy Vitals Additional PT Vitals Comments: As/medical chart PT Pain Assessment Is Patient Having Pain?: Yes - at 1 site PT Pain 0-10 Scale - Site #1: 7 PT Pain Location - Site #1: Hip (L) Pain Intervention for PT: Patient able to continue with treatment;Nurse/physician notified;Patient declined any intervention UE Assessment RUE General Strength/ROM: WFL LUE General Strength/ROM: WFL LE ROM Assessment RLE General ROM: WFL (noted bruising on R knee) LLE General ROM: WFL Strength RLE Strength RLE: Generally deconditioned Coordination RLE: Impaired Strength LLE Strength LLE: Generally deconditioned Coordination LLE: Impaired Bed Mobility Bed Mobility Level of Assistance: Contact guard assistance Bed Mobility From: Supine Bed Mobility Type: To Bed Mobility To: Short sit Bed Mobility Therapy Interventions: Head of Bed raised;Bedrail used to assist self to sitting or tosupine;Allowed patient to sit edge of bed for a few minutes to normalize vitals;Assistance requiredfor trunk control Transfer Transfer (1) Level of Assistance: Moderate assistance;Two-Person Assist Transfer From: Bed;Sit;Stand Transfer Type: To and from Transfer To: Stand;Sit;Chair with arms Transfer Device: Front wheeled walker Transfer Therapy Interventions: Cues for correct hand placement;Assist with control for sit<-->stand;Patient did not control descent from stand->sit Ambulation Weight Bearing Status: No restrictions Ambulation Distance: a few steps bed->chair Ambulation Level of Assistance: Moderate assistance;Two-person assist Surface: Level tile Device: Front wheeled walker Quality of Gait: Unsteady gait;LOB;Impulsive;Decreased foot clearance RLE;Decreased foot clearance LLE;Shuffling steps (L lateral lean) Ambulation Therapy Interventions: Cues for close proximity to AD during gait;Cues for safe technique Balance Sitting - Static Unsupported: Fair Sitting - Dynamic Unsupported: Fair;- Standing - Static Supported: Poor Standing - Dynamic Supported: Poor;- Activity Tolerance Activity Tolerance: Patient is self-limiting Education Patient Education Completed With: Patient Role of Therapy and Goals Reviewed: Yes;Patient/Family verbalizes understanding Restrictions/Precautions Reviewed: Yes Safety Reviewed: Yes Pressure Relief Reviewed: Yes Therapy Schedule Reviewed: Yes Pain Management Reviewed: Yes Exercises &/or HEP Reviewed: Yes Assessment Prognosis: Poor Problem List: Decreased LE strength;Decreased safety awareness;Decreased safe judgement during functional tasks;Decreased endurance;Decreased fine motor control;Decreased gross motor control;Decreased functional mobility;Decreased coordination;Impaired gait mechanics;Increased fall risk;Balance deficits Barriers to discharge: Fall risk;24 hour care needed for safety AM-PAC Mobility Scores AM-PAC Raw Score: 12 AM-PAC Scale Score: 32.23 AM-PAC 0-100% CMS Score: 61.94% AM-PAC CMS Modifier: CL Short Term Goals Goal Formulation: With patient Time For Goal Achievement: 1-2 Weeks Pt Will Go Supine To Sit: Stand by assistance;Bedrail used to assist self Pt Will Logroll: Stand by assistance;Bedrail used to assist self Pt Will Achieve Sitting Balance: 3+/5 sits without UE support for 30 seconds or greater Pt Will Sit Edge of Bed: Standby assistance;3-5 min Pt Will Sit to Stand: Contact guard assistance Pt Will Transfer Bed/Chair: Contact guard assistance;Device used: see comment (FWW) Pt Will Ambulate: Contact guard assistance;Front wheeled walker;31-50 feet Pt Will Demo Standing Balance: 2/5 indep, requires both UE support Pt Will Tolerate Exercise: Standby assistance;6-10 reps;HEP: for Endurance Improvement;HEP: per General Strengthening protocol Pt Will Tolerate Continuous Activity: Standby assistance;5-10 min Therapy Prognosis: Fair General Chart Reviewed: Yes Time spent with patient/family/caregiver: 20 Minutes Family / Caregiver Present: No End of Therapy Session: Resting in chair;Lower extremities elevated;Pillows placed under legs for heel pressure relief;Patient's comfort assured;Call light in reach;Phone in reach;CVS monitor presentin room;Nursing notified verbally of patient status;Nursing notified via in room communication board of patient status Signature: Miranda Calixto PT, DPT July 01, 2021 * Nursing - Yandy Ortega RN - 07/01/2021 4:40 AM EST Patient appears to be tolerating treatment well. No noted changes from previous assessment. Denies any additional needs. No noted SOB and/or chest pain. Call light in reach and bed in low position. Patient is easily redirected verbally at this time and CVS remains in room. * Nursing - Suzie Sood RN - 06/30/2021 4:20 PM EST 06/30/21 1620 Wound 06/24/21 Skin Tear Buttocks Medial Wound Occurrence Date /Wound Occurrence Time: 06/24/212154 Present on Hospital Admission: Yes Primary Wound Type: Skin Tear Location: Buttocks Wound Location Orientation: Medial Wound Outcome: Healed Site Assessment/Wound Bed Bodfish Nita-Wound Assessment Blanchable erythema Margins Defined edges Wound Length (cm) 0.7 cm Wound Width (cm) 0.5 cm Wound Depth (cm) 0.1 cm Wound Surface Area (cm^2) 0.35 cm^2 Wound Volume (cm^3) 0.035 cm^3 Wound Healing % 64 Drainage Amount None ET note: Followed up with patient for wound to coccyx Wound improving, pink and smaller. He is incontinent of stool and mepilex off REC barrier cream, low air loss, repositioning Areas on knees resolving previous ecchymosis with abrasions dry and stable to feet and right lateral leg ET will follow * D/C Jorge - Anahy Avitia Bioinformatics Assistant - 06/30/2021 4:15 PM EST Referrals sent to all [facility] and [facility] [place]. Joselo Ga pt is a denial at all [facility]. * D/C Jorge - Anahy Avitia Social Worker - 06/30/2021 2:34 PM EST Met with pt in His room to complete alcohol audit, pt reports that He has not drank for 2 weeks, ptreports that He drinks 2-3 beers a day, pt is unable to answer the other questions at this time. Attempted to discuss dcp with pt, pt does not stay on topic and is unable to give an answer, however when I asked Him if I could call and talk to His Mom about it He said yes.. I encouraged pt to work with PT when they come in to work with Him simon. Phoned pts Mom to discuss dcp. Shanice reports that She is not well Herself and is in O2. Shanice reports that if pt can not care for himself and walk to and from the bathroom He will need a SNF before coming home. Shanice reports She thinks He needs a SNF placement before coming home. Would like it to be one in [place]. * Nursing - Nelly Bellamy, ERIK - 06/30/2021 1:08 PM EST Mother Shanice called and given update on pt. All questions answered. * Rehab Therapies - Yunior [id number] Bridges CCC-RECORDIST - 06/30/2021 11:18 AM EST Name: Yonathan Fernandez CAT: [id number] Attempted dysphagia therapy this date. Per RN, patient continues to have periods of drowsiness and when awake, can be agitated. He did accept PO medication well earlier crushed in puree solid and atesome of his breakfast with tolerance. When RECORDIST attempted to complete session, patient was receivingcare from staff. Diet order was modified this date to represent recent recommendations. Suspect soft and bite size solids and thin liquids, no straw is most appropriate diet for patient at this time due to reported status and observations during session yesterday. Will continue to follow patient per POC. Thank you! * Rehab Therapies - Shaun [id number], PT - 06/30/2021 10:08 AM EST Name: Yonathan Fernandez CAT: [id number] 06/30/21 1008 PT Initial Evaluation Unable to Complete Evaluation Patient refuses General Chart Reviewed Yes Time spent with patient/family/caregiver 4 Minutes Amount of Missed Time 20 Comments PT spoke to RN about pt. status this AM, she reports he is more awake and is answering some questions for her, following commands. Speech is still garbled. PT attempted to work with patient for assessment of mobility status, however, he begins to exhibit agitation and loudly tells PT to please leave him alone! PT notified RN of this occurrence and that pt. is somnolent and lethargic/drowsy t/o session when he is not agitated. RN will call PT if pt. status improves and he wants to getup/walk, etc. Otherwise, PT staff will FU 07-01-21. * Nursing - Gina Chester RN - 06/29/2021 9:00 PM EST Pt's mother called in for updates. She did have the pt's code number. I updated her with his interactions with me and MRI Info updated. * Nursing - Gina Chester RN - 06/29/2021 8:30 PM EST Pt more alert. Answers simple yes or no questions. Denies pain. Was able to give his PO medicationswith the protein pudding and sprite. HOB elevated and medications were given 1 at a time with the pudding. Pt chewed the pills but tolerated well. Followed commands and straightened his legs out and wiggling his toes as commanded. He even stated Thank you after his medication and sprite was given. * Nursing - Denisse Galvan RN - 06/29/2021 6:30 PM EST Refuses po meds and supper. Will return to MRI later to complete the testing as he was sent with IVfluids infusing the first time. Saying he has to get out of here to get to work! * Rehab Therapies - Yunior [id number], MALI Shelby-RECORDIST - 06/29/2021 4:00 PM EST Name: Yonathan Fernandez CAT: [id number] Dysphagia therapy completed Impressions: Swallowing therapy completed. Per notes, patient has decline in status this date in regards to hs level of alertness. ABGs slightly abnormal and MRI was ordered. Patient not awake enough to accept POintake or medication until this afternoon. When RECORDIST entered room, patient appeared lethargic but eyes were open and was on room air. Sitter and student RN present. Face was wiped off to prompt patient to become more awake. During session, RECORDIST observed patient have PO medication given by student RN one pill at a time whole in puree solid. Patient did chew some pills up due to poor awareness but was able to swallow each one. RECORDIST gave patient thin liquids via cup, puree and chopped solid. Delayed swallow initiation noted at times with liquids. Mastication delayed but functional for intake of chopped solids. Due to patients decrease in level of alertness, diet was downgraded. Recommendations: ST recommending soft and bite size solids and thin liquids, no straws. Medication given crushed or whole in puree solid and oral care completed following meals. Patient does need assistance at meals.ST will continue to follow patient per POC, as patient stay allows. RN informed of recommendations. Thank you! 06/29/21 1405 Physician Order Physician Order Swallowing Swallowing Current Status - Oral Phase Minimal/Mild Impairment Current Status - Pharyngeal Phase Minimal/Mild Impairment;Within Functional Limits FOIS Items Total oral diet with multiple consistencies, but requiring special prep or compensations Swallowing - Diet Consistency Recommendations Current Diet Consistency Soft and Bite-Sized Liquid Diet Level Thin Medication Recommendation Crushed with Pudding/Apple Sauce (Whole in puree solid ) Instrumental assessment recommended No, to be determined Strategies One to One feeding Oral Care After Meals. Session Information Chart Review Completed Pain Assessment No Pain Reported Discharge Recommendations 24 hour care Comments (SOAP note) Dysphagia therapy completed RECORDIST Procedure Charges Swallowing/Dysphagia Treatment < 1 hour Time Calculation Start Time 1405 Stop Time 1425 Time Calculation 20 Speech Education Education No family available * Nursing - Denisse Galvan RN - 06/29/2021 3:32 PM EST Given his Librium, told not to chew the capsules, chewed them anyway - might be why he is so sleepy? Will get MRI later today. * Nursing - Denisse Galvan RN - 06/29/2021 1:41 PM EST Unable to give am or noon pills, has not eaten, only sleeping, ABG's were obtained, mom was updatedthis am with obtaining the MRI questions. Just woke, meds given, says he is hungry, will attempt the diet. * Rehab Therapies - Monse Frank PT - 06/29/2021 1:06 PM EST Name: Yonathan Fernandez CAT: [id number] 06/29/21 1306 PT Initial Evaluation Unable to Complete Evaluation Patient not appropriate General Chart Reviewed Yes Amount of Missed Time 20 Comments PT orders received, spoke to RN and went to check on pt. but he has been sleeping all day and unable to awaken him enough for nursing care. 1:1 sitter present in room and states pt. continues to sleep. MRI Brain pending. PT staff will return 06-30-21 to complete mobility assessment as able. * Plan of Care - Kolton Ashby RD,LD - 06/29/2021 12:55 PM EST Medical Nutrition Follow Up: Recommendation: Protein pudding TID for additional needed nutrition Interventions: Food and/or Nutrient Delivery: Meals Provided Medical Supplements to provide additional needed nutrition IV fluids: Lactated Ringers at 100 ml/hr Nutrition Education: Not appropriate for education at this time Nutrition Diagnosis: NI: Inadequate oral intake Related to: Current medical status and Respiratory failure As evidenced by: NPO diet order 06/24, mechanical ventilation 06/26, Regular diet easy to chew ( 7) 06/28 with no intakes recorded Increased nutrient needs: energy and protein Related to: Increased needs to promote healing As evidenced by: Documented wound(s) Malnutrition Assessment/Nutrition Diagnosis: Unable to assess for malnutrition at this time -not appropriate Goal/Monitoring/Evaluation: Goals: Adequate Intakes: New Goal Initiation of Nutrition supplement Goal met Tolerates oral diet: Not progressing Diet Advancement Goal met Monitoring/Evaluation: Food and Beverage Intake Medical Nutrition Supplement Body composition/growth/weight history Biochemical Data Assessment: Follow up Due To: Assessment of nutrition goals Subjective: Patient minimally interactive, torso curled up covered in blanket and hands somewhat clenched very similar presentation to when I saw him two days ago. Would likely have difficulty managing nutritionbeverages as not approved for straws and would require assistance. Will place order for protein pudding TID and monitor how he tolerates it. Briefly received a trickle tube feeding on 06/26, but essentially without nutrition intake since 06/24. If no improvement in PO intakes noted, would likely benefit from nutrition support. Wide fluctuation in weight noted +29 lbs. Received IVF >14 L during stay. Expect weight to continue to fluctuate. Labs reviewed. Will continue to monitor. Anthropometric Measurements: Patient Vitals for the past 750 hrs: Weight 06/29/21 0524 67.7 kg (149 lb 3.2 oz) 06/28/21 0403 72.6 kg (160 lb) 06/27/21 0017 57.2 kg (126 lb 1.7 oz) 06/25/21 2356 55.4 kg (122 lb 2.2 oz) 06/24/21 2359 54.7 kg (120 lb 9.5 oz) 06/24/21 2155 54.7 kg (120 lb 9.5 oz) 06/24/21 1747 70.3 kg (155 lb) Estimated Nutritional Needs: Estimated Energy Needs Total Energy Estimated Needs: 7685-1836 kcal Method for Estimating Needs: 25-30 kcal/kg 54.7 kg Estimated Protein Needs Total Protein Estimated Needs: 66-109 g Method for Estimating Needs: 1.2-2 g/kg 54.7 kg Diet Orders: Diet Orders (From admission, onward) Start Ordered 06/28/21 1042 Regular Diet Easy to Chew 7; Speech pathology has approved bread No Straws DIET EFFECTIVE NOW Comments: No Straws 06/28/21 1042 DIETARY SUPPLEMENT/TUBE FEED ORDERS (From admission, onward) Ordered Start Stop 06/29/21 1311 Protein pudding supplement 4 oz 4 oz, Oral, 3 TIMES PER DAY (DIETARY) 06/29/21 1400 -- Intakes Recorded: Patient Vitals for the past 168 hrs: Percent Meals Eaten (%) 06/28/21 1202 10 % Principal Problem: Alcohol withdrawal (HCC) Admission Diagnosis: Alcohol withdrawal (HCC) Other specified hypotension Elevated lactic acid level Hypothermia, initial encounter Alcohol withdrawal syndrome, with delirium (HCC) Leukocytosis, unspecified type Pertinent Laboratory Values:. Lab Results Component Value Date/Time GLU 90 06/29/2021 0321 POCGLU 114 (H) 06/28/2021 1213 BUN 4 (L) 06/29/2021320 CREATININE 0.41 (L) 06/29/2021 032 K 3.9 06/29/2021 032 PHOS 3.9 06/29/2021 032 MG 2.0 06/29/2021320 NA 135 06/29/2021320 HGB 10.2 (L) 06/29/2021320 GFR >60 06/29/2021320 Medications: Current Facility-Administered Medications Medication acetaminophen (TYLENOL) tablet 650 mg albuterol 2.5mg-ipratropium 0.5mg/3ml (DUONEB) nebulizer soln 3 mL amitriptyline (ELAVIL) tablet 75 mg amoxicillin-clavulanate (AUGMENTIN) 875-125 MG per tablet 875 mg aspirin chewable tablet 81 mg atorvastatin (LIPITOR) tablet 80 mg bisacodyl (DULCOLAX) EC tablet 5 mg chlordiazePOXIDE (LIBRIUM) capsule 10 mg clopidogrel (PLAVIX) tablet 75 mg dextrose 5% solution folic acid (FOLVITE) tablet 400 mcg For electrolyte abnormalities subsequent to initial labs (refer to the [facility] Electrolyte Replacement Orders) 1 each heparin (porcine) injection 5,000 Units hydrALAZINE (APRESOLINE) injection 10 mg hydrOXYzine (ATARAX) tablet 50 mg lactated ringers infusion levETIRAcetam (KEPPRA) 750 mg in sodium chloride 0.9 % 107.5 mL IVPB lisinopril (PRINIVIL,ZESTRIL) tablet 20 mg LORazepam (ATIVAN) tablet 2-4 mg Or LORazepam injection 2-4 mg Or LORazepam injection 2-4 mg Magnesium Oxide (MAG-OX) tablet 400 mg Metoprolol Tartrate (LOPRESSOR) tablet 25 mg nicotine (NICODERM CQ) 21 MG/24HR 1 patch nicotine polacrilex (COMMIT) lozenge 4 mg ondansetron hcl (ZOFRAN) injection 4 mg Pantoprazole (PROTONIX) injection 40 mg polyethylene glycol 3350 (GLYCOLAX, MIRALAX) packet 17 g Protein pudding supplement 4 oz senna-docusate (PERICOLACE) 8.6-50 MG per tablet 1 tablet thera vitamin tablet 1 tablet thiamine (VITAMIN B1) 100 mg in sodium chloride 0.9 % 5 mL IV syringe Nursing Physical Findings from Flowsheets: Gastrointestinal (WDL): Within Defined Limits Gastrointestinal Abdomen Inspection: Soft, Flat Bowel Sounds (All Quadrants): Active Tenderness: No guarding, Soft, Nontender Nausea/Vomiting: Unable to Assess Is patient having diarrhea: None Noted Liver/Spleen Palpation: Unable to assess Passing Flatus: Yes Integumentary Skin Color (WDL): Exceptions to WDL Skin Color: Pale Skin Integrity (WDL): Exceptions to WDL Impaired skin integrity: See LDA Skin Checked Under Oxygen Device: Intact Skin Condition (WDL): Exceptions to WDL Skin Condition: Abrasion, Bruising Location: Arm, Leg, Elbow Orientation: Right, Left Multiple Sites: 2 Wounds/NPWT Active Wound / Wound Therapy Name Placement date Placement time Site Days Wound 06/24/21 Skin Tear Buttocks Medial 06/24/212154 Buttocks 4 Peripheral Vascular Peripheral Vascular (WDL): Unchanged R Temporal Pulse: Moderate L Temporal Pulse: Moderate Anti-Embolism Devices: Bilateral lower extremity SCDs Bilateral LE SCDs: On Edema: Facial Facial: Mild pitting, slight indentation * Nursing - Denisse Galvan RN - 06/29/2021 10:38 AM EST Mom answers MRI questions. * Nursing - Denisse Galvan RN - 06/29/2021 9:14 AM EST Too drowsy to take pills or eat, will try when more alert. * Renata - Denisse Galvan RN - 06/29/2021 8:15 AM EST Pt with 1:1 sitter at the bedside. Griffin in place, mumbles a lot, impulsive, no seizure activity noted overnight. Telemetry shows ST rate 101, #8660. * Gina Hicks RN - 06/29/2021 12:00 AM EST Pt resting in bed with eyes closed, tossing and turning noted. Sitter at bedside. Stated he had to be re-directed a couple of times to not pull on his griffin and then would go back to sleep. Did not wake pt at this time. Will continue to monitor * Gina Hicks RN - 06/28/2021 9:25 PM EST Assessment completed at this time. Pt uncooperative.grabs and swings arms when attempted to assess lungs and heart. Lethargic. Frightens easily when calling out his name does not follow commands. Pulling at IV, griffin, pulled off telemetry wires. Unable to re-apply them at this time. Makes him more irritable. incomprehensive speech, mostly moaning, groaning, and grumbling noises. repositioned and griffin care provided. Grabbing at our hands as we tried to do griffin care and turn him. Will not respond to any questions. Will fall back to sleep quickly. Will attempt to re-apply salesperson burial needs a little later. Sitter in room. To lethargic to give po medications at this time. will continue To monitor. * Gina Hicks RN - 06/28/2021 8:00 PM EST Pt noted to be restless in bed moving around. Does not answer any questions. Unable to assess mentation at this time. Moans and grumbles with any moving by staff. CIWA score rated a 6 by me d/t his continuous moving around in bed and easily frightened when I called out his name. Sitter in the room.Will continue to monitor. * Nursing - Lakshmi Newton RN - 06/28/2021 6:51 PM EST Pt mother Shanice updated at this time * Rehab Therapies - Cary Infante, PT - 06/28/2021 6:10 PM EST PT orders received and acknowledged. * Nursing - Lakshmi Newton RN - 06/28/2021 5:11 PM EST Pt became very confused and combative. Pt yelling out for ki and states that we are holding himagainst his will at his home. Pt verbally and physically aggressive toward staff. [place] police called and assisted with getting pt back in bed and to administer IV medication. Pt now resting in bed watching TV. Pt is alert to self. Reparations easy and nonlabored. Pt refusing medications at this time. * Nursing - Lakshmi Newton RN - 06/28/2021 3:03 PM EST Focused assessment completed at this time. Pt continues to be confused. Pt alert to self, disoriented to place, time, and situation. Pt did eat lunch but cannot feed self, was fed by MST and tolerated well. He is still requiring a sitter, pt needs frequent reorientation and direction. Pt VSS. Pt isalert, but still having very garbled speech and is very hard to understand at times. Pt verbally agg ressive behavior has improved slightly throughout the day. * D/C Planning - Wendy Mccarty - 06/28/2021 2:45 PM EST Chart reviewed, spoke with RN, patient is more alert however continues to have garbled language. Elise complete AUDIT when patient improves. * Rehab Therapies - Luann Esteban [id number], CCC-RECORDIST - 06/28/2021 12:53 PM EST Name: Yonathan Fernandez CAT: [id number] Bedside swallow re-evaluation completed per plan. Impressions: Level of arousal improved this date. The patient tolerates puree and soft solids including bread with adequate mastication and anterior to posterior transit of bolus. Milddelay in swallow initiation and mildly decreased laryngeal elevation to palpation. The patient did demonstrate overt s/sx of aspiration with multiple sequential sips of liquid via straw. Recommendations: initiate easy to chew diet consistency, okay for bread, and thin liquids, no straws, medications 1 at a time with thin liquid wash, cue for small sips of thin liquids, Speech language pathologist to follow 3x/week x 2 weeks for laryngeal/pharyngeal strengthening and reassessment. Recommend 24 hour care and continued post acute ST at d/c. Referral appreciated. 06/28/21 0932 Physician Order Physician Order Swallowing Swallowing Current Status - Oral Phase Within Functional Limits Current Status - Pharyngeal Phase Minimal/Mild Impairment Deficits Presents - Pharyngeal Phase Swallow initiation delay;S/Sx Laryngeal penetration/aspiration FOIS Items Total oral diet with multiple consistencies, but requiring special prep or compensations Swallowing - Diet Consistency Recommendations Current Diet Consistency Easy to Chew Liquid Diet Level Thin Medication Recommendation Regular (1 at a time, thin liquid wash) Instrumental assessment recommended No, to be determined Strategies One to One feeding;90 degree Hip and 45 degree Neck Flexion for all oral intake;Alternate small bites with small sips;No straws Oral Care After Meals. Consistencies Assessed Consistencies Assessed Ice chips;Thin liquids;Puree;Soft and Bite-Sized;Easy to Chew;Advanced Solid Clinical Assessment Level of arousal improved this date. The patient tolerates puree and soft solids including bread with adequate mastication and anterior to posterior transit of bolus. Mildly delayin swallow initiation and mildly decreased laryngeal elevation to palpation. The patient did demonstrate overt s/sx of aspiration with multiple sequential sips of liquid via straw. Session Information Chart Review Completed Pain Assessment No Pain Reported Discharge Recommendations 24 hour care;Further Post-Acute Intensive RECORDIST Services 3-5x/wk Comments (SOAP note) Dysphagia TX wtih swallow reassessment completed per plan. The patient has a 1:1 at bedside upon RECORDIST arrival. He is awake and alert and agreeable to TX. His speech is garbled at times and he does continue to demostrate some confusion, but his level of alertness is much improved. He is given puree, thin liquids, chopped peaches, bread, and a cracker. He does demonstrate some mild delay in swallow initiation with mildly decreased laryngeal elevation with coughing noted with multiple sequential sips of thin liquids via straw. Plan of Care Frequency 3x/week RECORDIST Procedure Charges Swallowing/Dysphagia Treatment < 1 hour Time Calculation Start Time 0955 Stop Time 1015 Time Calculation 20 Speech Education Education No family available * Rehab Therapies - Luann Esteban CCC-SLP - 06/28/2021 10:08 AM EST Name: Yonathan Fernandez CAT: [id number] Bedside swallow re-evaluation completed per plan. Impressions: Level of arousal improved this date. The patient tolerates puree and soft solids including bread with adequate mastication and anterior to posterior transit of bolus. Mildly delay in swallow initiation and mildly decreased laryngeal elevation to palpation. The patient did demonstrate overt s/sx of aspiration with multiple sequential sips of liquid via straw. Recommendations: initiate easy to chew diet consistency, okay for bread, and thin liquids, no straws, medications 1 at a time with thin liquid wash, Speech language pathologist to follow 3x/week x 2 weeks for laryngeal/pharyngeal strengthening and reassessment. Recommend 24 hour care and continued post acute ST at d/c. Referral appreciated. * Nursing - Teagan Gilmore RN - 06/27/2021 4:50 PM EST Mother calls in. Reports to nurse that this is patient's 5th or 6th admission in last 12 months, same scenario each time and no one can explain what is going on. Reports this admission he was not drinking. She confirms patient is compliant with taking his medications. Explained plan of care again regarding PT to see patient as he has not been out of bed since admission, speech therapy to re-evaluate tomorrow regarding swallowing, bed alarm will be used on new floor, hourly rounding will continue. She voices concern he is going to be sent home way too early again this admission as before. Questions answered. * Arrival Note - Leeanne Sifuentes RN - 06/27/2021 4:30 PM EST Patient arrives from CCU by bed to room 4133. Patient is accompanied by transport staff x2. * Nursing - Teagan Gilmore RN - 06/27/2021 4:25 PM EST CVC removed. Mother updated, given new room number. Transferred to 4133 via bed with transport staff. * Rehab Therapies - David Rivero, PT - 06/27/2021 2:46 PM EST PT orders received and acknowledged. * Nursing - Teagan Gilmore RN - 06/27/2021 1:07 PM EST Patient awake, turning onto side on own. Denies any pain. Will attempt to intermittently answer questions, follows commands inconsistently. 1303 ~ Finger stick blood sugar 70. 1307 ~ Repeat blood sugar 73, drawn from CVC. Will continue to monitor. * Rehab Therapies - Luann Esteban [id number], [facility]-RECORDIST - 06/27/2021 12:48 PM EST Name: Yonathan Fernandez CAT: [id number] Bedside swallow evaluation completed. The patient is a 46 year old male, admitted with acute alcohol withdrawal, seizure, acute respiratory failure, lactic acidosis and hypothermia. He was intubated for airway protection on 06/24/21 and extubated on 06/26. CXR shows no airspace consolidation. Impressions: the patient is lethargic and he has difficulty following commands during the evaluation. He falls asleep easily while conversing with this Speech language pathologist. He is given ice chips x 2 and puree x 1, he demonstrates delayed swallow initiation and requires cues from the Speech language pathologist to initiate a swallow. He is at HIGH risk for aspiration with PO intake at thistime given his decreased level of arousal and inability to attend to bolus. Recommendations: NPO for now, non oral medications, may want to consider shorter term means of alternate nutrition/hydration, frequent oral care, Speech language pathologist to follow with plans to reassess on 06/28/21. Referral appreciated. 06/27/21 1040 Physician Order Physician Order Swallowing Swallowing Current Status - Oral Phase Moderate Impairment Current Status - Pharyngeal Phase Moderate Impairment Deficits Present - Oral Phase Reduced Oral-Motor Strength/Coordination/ROM;Decreased bolus awareness Deficits Presents - Pharyngeal Phase Swallow initiation delay;Multiple Swallows;S/Sx Laryngeal penetration/aspiration FOIS Items Nothing by Mouth Swallowing - Diet Consistency Recommendations Current Diet Consistency NPO: Consider alternate methods of Nutrition/Hydration Medication Recommendation Non-Oral Instrumental assessment recommended No, to be determined Strategies (Frequent Oral Care) Oral Care After Meals. Baseline Assessment Previous Solid Diet Consistency NPO for evaluation Previous Liquid Diet Consistency NPO for evaluation Solid Diet Prior to Admission Regular Liquid Diet Prior to Admission Thin Liquids Temperature Spikes Noted No Respiratory Status Room air History of Intubation Yes Behavior/Cognition Confused;Lethargic;Doesn't follow directions Dentition Adequate Able to Feed Self No;Cognitive deficits Patient Positioning Upright in bed Baseline Vocal Quality Normal Volitional Cough Weak;Congested Volitional Swallow Unable to follow commands WBC Result 6.5 Chest X-Ray No acute cardiopulmonary process Breath Sounds Diminished;Rhonchi Length of Intubations (days) (2) Date extubated 06/26/21 Motor Speech Labial ROM WFL;Other (comment) (upper right lip edematous) Labial Symmetry WFL Labial Strength Reduced Labial Sensation WFL Lingual ROM Reduced left;Reduced right Lingual Symmetry WFL Lingual Strength Reduced Lingual Sensation Reduced Facial ROM WFL Facial Symmetry WFL Facial Strength Reduced Facial Sensation WFL Velum WFL Mandible Other (comment) (did not fully assess) Gag (DNT) Consistencies Assessed Consistencies Assessed Ice chips;Puree Clinical Assessment the patient is lethargic and he has difficulty following commands during the evaluation. He falls asleep easily while conversing with this Speech language pathologist. He is givenice chips x 2 and puree x 1, he demonstrates delayed swallow initiation and requires cues from the Speech language pathologist to initiate a swallow. He is at HIGH risk for aspiration with PO intake at this time given his decreased level of arousal and inability to attend to bolus Session Information Chart Review Completed Pain Assessment No Pain Reported Discharge Recommendations Further Post-Acute Intensive RECORDIST Services 3-5x/wk Comments (SOAP note) Initial dysphagia evaluation Plan of Care Skilled Services Required Yes Type of Treatment Dysphagia Therapy Dysphagia Therapy Therapeutic Trial Upgrades Frequency 5x/week Duration 2 weeks Prognosis Fair RECORDIST Procedure Charges Swallowing/Dysphagia Evaluation 1 Procedure Time Calculation Start Time 1040 Stop Time 1100 Time Calculation 20 Goals Goals - Oral Phase WFL Goals - Pharyngeal Phase WFL Speech Education Education No family available Documentation type Documentation: Initial * Nursing - Teagan Gilmore RN - 06/27/2021 11:15 AM EST Patient inconsistently will attempt to answer questions by nodding or with 1 word, speech garbled worse if attempting to talk in a sentence. Denies any pain. Turns self back/forth in bed. Oral care done but patient pushing staff away entire time. Bed alarm remains on. * Rehab Therapies - Luann Esteban [id number] [facility]-RECORDIST - 06/27/2021 10:40 AM EST Name: Yonathan Fernandez CAT: [id number] Bedside swallow evaluation completed. Full report to follow. The patient is a 46 year old male, admitted with acute alcohol withdrawal, seizure, acute respiratory failure, lactic acidosis and hypothermia. He was intubated for airway protection on 06/24/21 and extubated on 06/26. CXR shows no airspace consolidation. Impressions: the patient is lethargic and he has difficulty following commands during the evaluation. He falls asleep easily while conversing with this Speech language pathologist. He is given ice chips x 2 and puree x 1, he demonstrates delayed swallow initiation and requires cues from the Speech language pathologist to initiate a swallow. He is at HIGH risk for aspiration with PO intake at thistime given his decreased level of arousal and inability to attend to bolus. Recommendations: NPO for now, non oral medications, may want to consider shorter term means of alternate nutrition/hydration, frequent oral care, Speech language pathologist to follow with plans to reassess on 06/28/21. Referral appreciated. * Plan of Care - Kolton Ashby RD,LD - 06/27/2021 9:28 AM EST Medical Nutrition Therapy Assessment: Recommendation: Diet advance as appropriate Suitable nutrition supplement for healing/skin integrity and as Phosphorus supplement upon diet initiation Interventions: Food and/or Nutrient Delivery: NPO Nutrition Education: Not appropriate for education at this time Nutrition Diagnosis: NI: Inadequate oral intake Related to: Current medical status and Respiratory failure As evidenced by: NPO diet order 06/24, mechanical ventilation 06/26 Increased nutrient needs: energy and protein Related to: Increased needs to promote healing As evidenced by: Documented wound(s) Malnutrition Assessment/Nutrition Diagnosis: Unable to assess for malnutrition at this time - Patient still not cognitively aware as is coming off of sedation Goals/Monitoring/Evaluation: Goals: Initiation of Nutrition supplement Diet Advancement Tolerates oral diet Monitoring/Evaluation: Food and Beverage Intake Diet order Biochemical Data Assessment: Assessment Due To: Nutrition Screen received for unplanned weight loss and pressure ulcer or non- healing wound MAKE UP ARRANGER Consult to assess Subjective: Received MAKE UP ARRANGER consult to assess patient. Received nutrition screen for unintended weight loss and presence of skin issues/wound. Patient NPO since 06/24. Was on mechanical ventilation yesterday and briefly received trickle tube feeding. Taken off of ventilator and now in transit to inpatient surgical floor. This RD briefly saw patient who was coming off of sedation, lying on right side, noted for agitated movements. Wound nurse documented skin tear to buttocks and various areas of scabs/abrasions/bruising to bilateral legs/knees, forehead, large toe. BUN 5 (low) likely resultant from IV hydration >12.8 liters during stay. Potassium is now WNL, Phosphorus is low. Nutrient needs increased forwound healing/skin integrity. Trend of weight loss noted per weight review. Recommend suitable nutrition supplement upon diet advance. Will monitor intakes for adequacy. Anthropometric Measurements: Weight: 57.2 kg (126 lb 1.7 oz) Wt Scale Type: Bed scale Epic Weight Review: 06/27: 126 lbs (current) 02/16: 130 lbs (-3.1%) 12/28: 132 lbs (-4.6%) Estimated Nutritional Needs: Estimated Energy Needs Total Energy Estimated Needs: 3437-1939 kcal Method for Estimating Needs: 25-30 kcal/kg 54.7 kg Estimated Protein Needs Total Protein Estimated Needs: 66-109 g Method for Estimating Needs: 1.2-2 g/kg 54.7 kg Diet Orders: Diet Orders (From admission, onward) Start Ordered 06/24/211858 Diet NPO effective now DIET EFFECTIVE NOW 06/24/211857 DIETARY SUPPLEMENT/TUBE FEED ORDERS (From admission, onward) None Intakes Recorded: No data found. Principal Problem: Alcohol withdrawal (HCC) Admission Diagnosis: Alcohol withdrawal (HCC) Other specified hypotension Elevated lactic acid level Hypothermia, initial encounter Alcohol withdrawal syndrome, with delirium (HCC) Leukocytosis, unspecified type Pertinent Laboratory Values:. Lab Results Component Value Date/Time GLU 58 (L) 06/27/2021 0450 POCGLU 264 (H) 06/27/2021 0751 BUN 5 (L) 06/27/2021 045 CREATININE 0.41 (L) 06/27/2021 0450 K 4.6 06/27/2021 0450 PHOS 2.1 (L) 06/27/2021 045 MG 1.6 06/27/2021 045 NA 140 06/27/2021 045 HGB 9.9 (L) 06/27/2021 045 GFR >60 06/27/2021 045 Medications: Current Facility-Administered Medications Medication acetaminophen (TYLENOL) tablet 650 mg albuterol 2.5mg-ipratropium 0.5mg/3ml (DUONEB) nebulizer soln 3 mL amitriptyline (ELAVIL) tablet 75 mg amoxicillin-clavulanate (AUGMENTIN) 875-125 MG per tablet 875 mg aspirin chewable tablet 81 mg atorvastatin (LIPITOR) tablet 80 mg bisacodyl (DULCOLAX) EC tablet 5 mg clopidogrel (PLAVIX) tablet 75 mg folic acid (FOLVITE) tablet 400 mcg For electrolyte abnormalities subsequent to initial labs (refer to the [facility] Electrolyte Replacement Orders) 1 each heparin (porcine) injection 5,000 Units hydrALAZINE (APRESOLINE) injection 10 mg hydrOXYzine (ATARAX) tablet 50 mg levETIRAcetam (KEPPRA) 750 mg in sodium chloride 0.9 % 107.5 mL IVPB lisinopril (PRINIVIL,ZESTRIL) tablet 20 mg LORazepam (ATIVAN) tablet 2-4 mg Or LORazepam injection 2-4 mg Or LORazepam injection 2-4 mg Magnesium Oxide (MAG-OX) tablet 400 mg Metoprolol Tartrate (LOPRESSOR) tablet 25 mg nicotine (NICODERM CQ) 21 MG/24HR 1 patch nicotine polacrilex (COMMIT) lozenge 4 mg ondansetron hcl (ZOFRAN) injection 4 mg Pantoprazole (PROTONIX) injection 40 mg senna-docusate (PERICOLACE) 8.6-50 MG per tablet 1 tablet thera vitamin tablet 1 tablet Thiamine Mononitrate (VITAMIN B-1) tablet 100 mg Nursing Physical Findings from Flowsheets: Gastrointestinal Abdomen Inspection: Soft, Rounded, Nondistended Bowel Sounds (All Quadrants): Active Tenderness: Soft, No guarding, Nontender Nausea/Vomiting: Denies any nausea or vomiting Is patient having diarrhea: None Noted Liver/Spleen Palpation: Unable to assess Passing Flatus: Yes Integumentary Skin Color (WDL): Unchanged Skin Color: Bodfish Skin Integrity (WDL): Exceptions to WDL Impaired skin integrity: See LDA Skin Checked Under Oxygen Device: Intact Skin Condition (WDL): Exceptions to WDL Skin Condition: Erythema (blanching) Location: Heel, Elbow Orientation: Right, Left Multiple Sites: 2 Wounds/NPWT Active Wound / Wound Therapy Name Placement date Placement time Site Days Wound 06/24/21 Skin Tear Buttocks Medial 06/24/21 8265 Buttocks 2 Peripheral Vascular Anti-Embolism Devices: Bilateral lower extremity SCDs Bilateral LE SCDs: On Edema: None noted * Teagan Pike RN - 06/27/2021 7:51 AM EST At 0730 ~ patient opens eyes to name, cooperative, follows commands but responses are delayed, nods'yes' to correct chosen first, last name, nods 'no' when asked if having any pain or feels hungry. Turns self in bed. Speech is garbled. Blood sugar check 57. At 0735 ~ 1 amp D50 given per Hypoglycemia protocol as patient is NPO. At 0751 ~ Blood drawn for blood sugar @ 0750, resulted 264. Will continue to monitor. Assessment same otherwise. * Autumn Leal RN - 06/26/2021 7:22 PM EST Pts mother, Shanice, updated at this time. All questions answered. * Autumn Leal RN - 06/26/2021 6:13 PM EST Verbal order from Dr. Laney Patel for IVP hydralazine 10 mg for SBP > 160 Q6 PRN. * Autumn Leal RN - 06/26/2021 6:00 PM EST Okay to switch pts PO keppra 750mg to IV form at this time per Dr. Laney Patel. * Spiritual Care - Arjun Engel CHAPLAIN - 06/26/2021 3:52 PM EST I visited with the patient who talked with me though I did have some trouble understanding all thathe said. He seemed happy to talk and so I listened as best I could. I asked if he would like me to pray with him and he was very much in favor of that. * Renata - Autumn Gill RN - 06/26/2021 3:12 PM EST Pts mother Shanice updated at this time. Stated pt is is intermittently confused at home with severalepisodes of seeing and hearing things that are not there. All questions answered. * Autumn Leal RN - 06/26/2021 1:38 PM EST 1300- Verbal order from Dr. Laney Patel to continue with extubation. RT notified. 1328- RT at bedside, pt extubated to 4L NC without difficulty. Soft, hoarse voice. Able to lift head off bed. Instructed custom van converter light use. Instructed to not get out of bed without assistance. Pt nods head in understanding. Attached to all appropriate monitors. Bed alarm on for safety. * Spiritual Care - Arjun Engel CHAPLAIN - 06/26/2021 11:47 AM EST I checked on the patient but the medical team was attending to him so I did not interrupt. I will follow up later as able. * Nursing - Autumn Gill RN - 06/26/2021 11:44 AM EST Verbal order from Dr. Laney Patel to begin SBT for pt, RT notified. * Plan of Care - Francesca Carranza, BRAD,LD - 06/26/2021 10:49 AM EST Medical Nutrition Follow Up: Recommendation: Resume TF if unable to extubate Interventions: Food and/or Nutrient Delivery: Enteral Nutrition: on hold Order: Vital HP at 15 ml/hr, standard water flush 50 ml q4h Route: OG Provides: 360 kcal, 32 g protein, 601 ml free water with flushes Nutrition Education: Not appropriate for education at this time Nutrition Diagnosis: NI: Inadequate oral intake Related to: Current medical status and Respiratory failure As evidenced by: NPO diet order, mechanical ventilation Malnutrition Assessment/Nutrition Diagnosis: Unable to assess for malnutrition at this time NFPE not completed as physical contact is being postponed at this time to reduce exposure and risk.Pt. intubated Goal/Monitoring/Evaluation: Goals: Tolerates enteral nutrition: Not progressing currently Monitoring/Evaluation: Enteral Nutrition Means of nutrition Assessment: Follow up Due To: Routine follow up Subjective: pt. remains intubated. He is currently not on propofol and TF are on hold for possible extubation. Labs reviewed, last K was 3.5. Metabolics done today, see results below under 'EstimatedNutritional Needs.' Will continue to follow and make additional recommendations as needed. If he isunable to be extubated and TF resumed, may need to increase TF based on propofol. Anthropometric Measurements: Patient Vitals for the past 750 hrs: Weight 06/25/21 2356 55.4 kg (122 lb 2.2 oz) 06/24/21 2359 54.7 kg (120 lb 9.5 oz) 06/24/21 2155 54.7 kg (120 lb 9.5 oz) 06/24/21 1747 70.3 kg (155 lb) Estimated Nutritional Needs: Estimated Energy Needs Total Energy Estimated Needs: 7847-9752 kcal Method for Estimating Needs: 25-30 kcal/kg 54.7 kg Metabolics 06/26: 952 kcal Estimated Protein Needs Total Protein Estimated Needs: 66-109 g Method for Estimating Needs: 1.2-2 g/kg 54.7 kg Diet Orders: Diet Orders (From admission, onward) Start Ordered 06/24/21 1859 Diet NPO effective now DIET EFFECTIVE NOW 06/24/21 1858 DIETARY SUPPLEMENT/TUBE FEED ORDERS (From admission, onward) Ordered Start Stop 06/25/21 0942 VITAL HP High Protein Therapeutic Nutrition (tube feed) 360 mL 360 mL, Orogastric, CONTINUOUS 06/25/21 1015 -- Intakes Recorded: No data found. Documented Medical Information, Test and Procedures: Principal Problem: Alcohol withdrawal (HCC) Admission Diagnosis: Alcohol withdrawal (HCC) Other specified hypotension Elevated lactic acid level Hypothermia, initial encounter Alcohol withdrawal syndrome, with delirium (HCC) Leukocytosis, unspecified type Pertinent Laboratory Values:. Lab Results Component Value Date/Time GLU 90 06/26/2021 0450 POCGLU 110 (H) 06/25/2021 1753 BUN 9 06/26/2021 0450 CREATININE 0.65 (L) 06/26/2021 0450 K 3.5 (L) 06/26/2021 0644 PHOS 3.3 06/26/2021 045 MG 2.2 06/26/2021 045 NA 143 06/26/2021 045 HGB 8.7 (L) 06/26/2021 045 GFR >60 06/26/2021 0450 Medications: Current Facility-Administered Medications Medication acetaminophen (TYLENOL) tablet 650 mg albuterol 2.5mg-ipratropium 0.5mg/3ml (DUONEB) nebulizer soln 3 mL amitriptyline (ELAVIL) tablet 75 mg aspirin chewable tablet 81 mg atorvastatin (LIPITOR) tablet 80 mg bisacodyl (DULCOLAX) EC tablet 5 mg cefepime (MAXIPIME) 2,000 mg in NS 50 mL IVPB clopidogrel (PLAVIX) tablet 75 mg fentaNYL (SUBLIMAZE) 1250 mcg/250 mL IV infusion [START ON 06/27/2021] folic acid (FOLVITE) tablet 400 mcg For electrolyte abnormalities subsequent to initial labs (refer to the [facility] Electrolyte Replacement Orders) 1 each heparin (porcine) injection 5,000 Units KCl 40 mEq in 0.9%-NaCl 1000 mL IV infusion levETIRAcetam (KEPPRA) tablet 750 mg LORazepam (ATIVAN) tablet 2-4 mg Or LORazepam injection 2-4 mg Or LORazepam injection 2-4 mg LORazepam injection 2-4 mg nicotine (NICODERM CQ) 21 MG/24HR 1 patch nicotine polacrilex (COMMIT) lozenge 4 mg norepinephrine (LEVOPHED) IV infusion 4 mg/D5W 250ml ondansetron hcl (ZOFRAN) injection 4 mg Pantoprazole (PROTONIX) injection 40 mg Pharmacy to dose Vancomycin (until discontinued) 1 each propofol (DIPRIVAN) IV infusion 10 mg/mL senna-docusate (PERICOLACE) 8.6-50 MG per tablet 1 tablet thera vitamin tablet 1 tablet Thiamine Mononitrate (VITAMIN B-1) tablet 100 mg vancomycin (VANCOCIN) 750 mg in sodium chloride 0.9 % 250 mL IVPB VITAL HP High Protein Therapeutic Nutrition (tube feed) 360 mL Nursing Physical Findings from Flowsheets: Gastrointestinal Abdomen Inspection: Soft, Nondistended, Rounded Bowel Sounds (All Quadrants): Active Tenderness: Unable to Assess Nausea/Vomiting: Unable to Assess Is patient having diarrhea: None Noted Liver/Spleen Palpation: Unable to assess Passing Flatus: Yes Integumentary Skin Color (WDL): Within Defined Limits Skin Color: Bodfish Skin Integrity (WDL): Exceptions to WDL Impaired skin integrity: See LDA Skin Checked Under Oxygen Device: Intact Skin Condition (WDL): Exceptions to WDL Skin Condition: Erythema (blanching) Location: Elbow, Heel Orientation: Right, Left Multiple Sites: 2 Wounds/NPWT Active Wound / Wound Therapy Name Placement date Placement time Site Days Wound 06/24/21 Skin Tear Buttocks Medial 06/24/21 2155 Buttocks 1 Peripheral Vascular Anti-Embolism Devices: Bilateral lower extremity SCDs Bilateral LE SCDs: On Edema: None noted * Pharmacy Note - Niles Au, EdieD - 06/26/2021 9:36 AM EST Clinical Pharmacy Note - Vancomycin Dosing 46 y.o. male with etoh w/d, seizure, resp fail, asp PNA, and LA. Ett (06/24). Propofol 50 mcg/kg/min. Norepi 8 mcg/min. CIWA. Thiamine and folic acid. Heparin SQ and PPI for prophylaxis. Levetiracetam. Vanco Day #3. Cefepime Day #3. Blood Cx - CoNS (1 of 2). Urine Cx - Staph. COVID - negative. WBC 6.3 Hgb 8.7. Afeb. SCr 0.65. Renal function stable. Vanco trough 20.5. Goal trough 15-20. Decrease vanco to 750 mg IV Q12. Stopping abx after 5 days os no more levels. Thank you, Niles Au PharmD, BCPS, BCCCP * Renata - Autumn Gill RN - 06/25/2021 6:46 PM EST Update given to pts mother, all questions answered. * Autumn Leal RN - 06/25/2021 3:10 PM EST Verbal order from Dr. Laney Patel to discontinue Q6 lactate. Will carry out. * D/C Planning - Marla Gunderson RN - 06/25/2021 12:13 PM EST CM Initial Discharge Planning Yonatahn Fernandez 1975 Met with Family at Other phone. Family actively participated in the Discharge Planning Process. Yonathan lives in a 1 story home with his mother. He does have a FWW and 4WW at home. He typically is a heavy drinker and has had alcohol audits completed in the last 6 months. He has previously declined treatment, but on admission his alcohol level was WNL. CM will follow up once he is extubated. DC plan: TBD vent/sedated Initial Discharge Planning Obtained Information From: Chart (mother) Family contact name: Shanice [phone] Relationship to patient: Mother Family Contact Number: Shanice [phone] Living Arrangements: Parent Capacity for Self-Care of ADLs: Standby assistance Home Environment: Patient's home is Single Level Does Patient Currently Use DME: Yes DME Currently used by patient in home: Four wheel walker, Front wheeled walker Have you served in armed services: No Discharge Plans Complete: Yes Discharge Planning Needs Anticipated Discharge Plan: (vent/sedated/will need alcohol audit once extubated) % Marla Gunderson RN The patient has the right to participate in the development and implementation of his plan of care.The patient or his door to door sales representative (as allowed under State law) has the right to make informed decisions regarding his discharge plan. The patient's right includes being involved in care planning and treatment. * Nursing - Autumn Gill RN - 06/25/2021 10:51 AM EST Discussed pts K 2.4 after 100mEq potassium already given. Verbal orders from Dr. Laney Patel for 40 mEq potassium PO now, and change MIV fluids to 40mEq potassium with NS at 50mL/hr continuous and to recheck potassium level at 1300. Will carry out. * Nursing - Suzie Sood RN - 06/25/2021 10:15 AM EST Images from the original note were not included. 06/25/21 1000 Integumentary Skin Condition Erythema (blanching) Location Heel Orientation Right;Left Multiple Sites 5 Skin Condition Site 2 Skin Condition 2 Abrasion;Bruising Location 2 Knee;Leg Orientation 2 Right;Mid;Lateral Skin Condition Site 3 Skin Condition 3 Abrasion;Bruising Location 3 Knee;Leg Orientation 3 Left;Lateral;Mid Skin Condition Site 4 Skin Condition 4 Abrasion Location 4 Toes Orientation 4 Left Skin Condition Site 5 Skin Condition 5 Erythema (blanching) Location 5 Elbow Orientation 5 Left;Right Wound 06/24/21 Skin Tear Buttocks Medial Wound Occurrence Date /Wound Occurrence Time: 06/24/212154 Present on Hospital Admission: Yes Primary Wound Type: Skin Tear Location: Buttocks Wound Location Orientation: Medial Wound Image Site Assessment/Wound Bed Bodfish Nita-Wound Assessment Blanchable erythema;Bodfish Margins Defined edges Wound Length (cm) 1.2 cm Wound Width (cm) 0.4 cm Wound Depth (cm) 0.2 cm Wound Surface Area (cm^2) 0.48 cm^2 Wound Volume (cm^3) 0.096 cm^3 Drainage Amount Scant Drainage Description Serosanguineous ET note: Consult received for coccyx. Pt admitted with Acute alcohol withdrawal, seizure activity, respiratory failure He has Shearing to coccyx lower mid area See above LDA for details He is intubated. ET tube is taped to face. He has duoderm on lips and mouth for protection. Mepilex on his cheeksto protect from tape His heels are red, blanching and offloaded but he is restless. REC offloading boots, mepilex to heels and elbows and continue Mepilex to his coccyx. He is on pressure redistribution with low air loss and repositioning. Pt has multiple bruises and abrasions See above skin conditions and photos below; His area on right knee appears to be a bruise but he was also found on the floor for unknown time and staff unsure if he was on his front vs back. Would watch area to make sure it is not pressure andreconsult ET if area does not improve. ET following. Thank you! * Plan of Care - Francesca Carranza RD,LD - 06/25/2021 9:26 AM EST Medical Nutrition Therapy Assessment: Recommendation: Start trickle feeds of Vital HP at 15 ml/hr, standard water flush 50 ml q4h This will provide 360 kcal (693 kcal with propofol), 32 g protein, 601 ml free water with flushes Interventions: Food and/or Nutrient Delivery: NPO Nutrition Education: Not appropriate for education at this time Nutrition Diagnosis: NI: Inadequate oral intake Related to: Current medical status and Respiratory failure As evidenced by: NPO diet order, mechanical ventilation Malnutrition Assessment/Nutrition Diagnosis: Unable to assess for malnutrition at this time NFPE not completed as physical contact is being postponed at this time to reduce exposure and risk.Pt. intubated Goals/Monitoring/Evaluation: Goals: Initiation of Nutrition Monitoring/Evaluation: Enteral Nutrition Assessment: Assessment Due To: MD Consult CCU protocol Minda 1 for Nutrition Subjective: consult received to manage TF. Pt. found down, seizing at home. He is currently intubated and sedated, propofol running at 12.6 ml/hr at time of visit. Noted pt. became agitated this morning, sedation was increased. Plan to start TF today if unable to extubate. Labs reviewed, noted K 1.7. Will order trickle TF to start as recommended above. Will follow Anthropometric Measurements: Weight: 54.7 kg (120 lb 9.5 oz) Wt Scale Type: Bed scale Estimated Nutritional Needs: Estimated Energy Needs Total Energy Estimated Needs: 4417-1809 kcal Method for Estimating Needs: 25-30 kcal/kg 54.7 kg Estimated Protein Needs Total Protein Estimated Needs: 66-109 g Method for Estimating Needs: 1.2-2 g/kg 54.7 kg Diet Orders: Diet Orders (From admission, onward) Start Ordered 06/24/211858 Diet NPO effective now DIET EFFECTIVE NOW 06/24/211857 DIETARY SUPPLEMENT/TUBE FEED ORDERS (From admission, onward) None Intakes Recorded: No data found. Documented Medical Information, Test and Procedures: Active Problems: Alcohol withdrawal (HCC) Admission Diagnosis: Alcohol withdrawal (HCC) Other specified hypotension Elevated lactic acid level Hypothermia, initial encounter Alcohol withdrawal syndrome, with delirium (HCC) Leukocytosis, unspecified type Pertinent Laboratory Values:. Lab Results Component Value Date/Time GLU 85 06/25/2021 0445 POCGLU 154 (H) 06/24/2021 1751 BUN 15 06/25/2021 0445 CREATININE 0.72 06/25/2021 0445 K 1.7 (LL) 06/25/2021 0445 PHOS 6.2 (H) 06/25/2021 0445 MG 1.5 (L) 06/25/2021 0445 NA 139 06/25/2021 0445 HGB 10.0 (L) 06/25/2021 0445 GFR >60 06/25/2021 0445 Medications: Current Facility-Administered Medications Medication 0.9% NaCl infusion acetaminophen (TYLENOL) tablet 650 mg albuterol 2.5mg-ipratropium 0.5mg/3ml (DUONEB) nebulizer soln 3 mL amitriptyline (ELAVIL) tablet 75 mg aspirin chewable tablet 81 mg atorvastatin (LIPITOR) tablet 80 mg bisacodyl (DULCOLAX) EC tablet 5 mg cefepime (MAXIPIME) 2,000 mg in NS 50 mL IVPB clopidogrel (PLAVIX) tablet 75 mg fentaNYL (SUBLIMAZE) 1250 mcg/250 mL IV infusion folic acid (FOLVITE) tablet 1 mg For electrolyte abnormalities subsequent to initial labs (refer to the [facility] Electrolyte Replacement Orders) heparin (porcine) injection 5,000 Units levETIRAcetam (KEPPRA) tablet 750 mg nicotine (NICODERM CQ) 21 MG/24HR 1 patch nicotine polacrilex (COMMIT) lozenge 4 mg norepinephrine (LEVOPHED) IV infusion 4 mg/D5W 250ml ondansetron hcl (ZOFRAN) injection 4 mg Pantoprazole (PROTONIX) injection 40 mg Pharmacy to dose Vancomycin (until discontinued) 1 each potassium chloride 20 mEq in 100 mL IVPB propofol (DIPRIVAN) IV infusion 10 mg/mL senna-docusate (PERICOLACE) 8.6-50 MG per tablet 1 tablet vancomycin (VANCOCIN) 1,250 mg in sodium chloride 0.9 % 250 mL IVPB Nursing Physical Findings from Flowsheets: Gastrointestinal Abdomen Inspection: Soft, Nondistended, Flat Bowel Sounds (All Quadrants): Active Tenderness: Soft, Unable to Assess Nausea/Vomiting: Unable to Assess Is patient having diarrhea: None Noted Passing Flatus: Yes Integumentary Skin Color (WDL): Unchanged Skin Integrity (WDL): Unchanged Impaired skin integrity: See LDA Skin Checked Under Oxygen Device: Intact Skin Condition (WDL): Unchanged Skin Condition: Abrasion Location: Scattered Wounds/NPWT Active Wound / Wound Therapy Name Placement date Placement time Site Days Wound 06/24/21 Skin Tear Buttocks Medial 06/24/212154 Buttocks less than 1 Peripheral Vascular Anti-Embolism Devices: (Ordered) Edema: None noted * Interdisciplinary - Marla Burrows RRT - 06/25/2021 2:54 AM EST 06/25/21 0029 Vent Settings Vent Mode A/C VC FiO2 (%) Ordered 40 % Ordered Resp Rate 12 Ordered VT ( mL) 450 mL PEEP/CPAP Set 5 FIO2 decreased to 40%. SPO2 100%. Will continue to monitor. * Rose - Sherman Soares RRT - 06/25/2021 12:30 AM EST ETT secured with cloth tape @ 23cm jas at lip. Mepilex & Duoderm placed on cheeks and lips respectively. BBS heard following re-taping. No change in pt condition * Pharmacy Note - Gina Isaacs PharmD - 06/24/2021 10:30 PM EST Pharmacy to Dose Vancomycin 46 y.o. male, admitted with pneumonia. Hx of alcohol abuse, alcohol withdrawal, hypokalemia, CAD, seizure disorder, HTN, HLD, who presents with chief complaint of altered mental status, concern for seizure. Wt:70.3 kg (155 lb) Ht:5'4'' Vitals:Tmax: 90.8 IV access:Peripheral and PICC Labs: Serum creatinine: 0.61 mg/dL (L) 06/24/21 175 Estimated creatinine clearance: 124 mL/min (A) Recent Labs Lab 06/24/21 17506/24/21 1750 WHITEBLOODCE -- 16.1* CREATININE 0.61* -- BUN 17 -- Vancomycin level: No results for input(s): TIFFANIE LOPEZ in the last 168 hours. Micro:covid negative Pertinent ancillary medications:Maintenance IV fluid Abx: Cefepime (Day-1), Vancomycin (Day-1) Plan: Received vanco 1,750 mg x1 06/24 @ 1922 (24 mg/kg) Vanco 1,250 mg q12h starting tomorrow, 06/25 (17 mg/kg) Level due 06/26 Vancomycin Goal:15-20 Additional labs ordered: None Monitor renal function and labs daily Thank you for the consult, Gina Isaacs PharmD * Interdisciplinary - Marla Burrows RRT - 06/24/2021 10:00 PM EST Pt arrived from ER already intubated. Tube placement confirmed via ETCO2 on vent and BBS. * Nursing - Shiv Olvera RN - 06/24/2021 9:55 PM EST Pt to unit per cart with er staff and Rt. Pt is unresponsive on Propofol drip. Pt moved over to unit bed placed on monitors and bathed. * Pharmacy Note - Murali Hess PharmD - 06/24/2021 6:15 PM EST Pharmacy To Dose Vancomycin For Emergency Department Ht: Wt:70.3 kg (155 lb) Vancomycin 1750 mg X1now Please administer Cefepime (Maxipime) prior to vancomycin administration. Thank you, Murali Hess PharmD * Interdisciplinary - Emeterio Jacques RRT - 06/24/2021 6:05 PM EST Patient intubated by Dr. Thompson using Mac 3 size #8.0LoPro ETT measuring at the 25cm lip line. Vocal cords visualized, positive color change noted, and bilateral breath sounds auscultated. Initial ventilator settings AC 12 450 65% +5. Will continue to monitor. documented in this [facility]02-05-2022 Hospital course Narrative* Sky Chan MD - 07/04/2021 11:22 AM EST [facility] Medicine / [facility] Discharge Summary Yonathan Fernandez Account: [id number] Admitted: 06/24/2021 Discharge Date/Time: 07/04/21 11:22 AM Handoff to PCP 1. Follow-up primary care physician per fdc facility Clinical Summary oYnathan Fernandez is a 46 y.o. male with a history of alcohol abuse with history of withdrawal seizures, CAD who presented to [facility] 06/24/2021 after being found by his mother seizing secondary to alcohol withdrawal. Admitted to heroin use requiring Narcan. In the ED, patient noted to be hypothermic (85.7) and was intubated for airway protection. The patient was admitted to the CCU and administered ATBs, Keppra, and supportive care. Extubated on 06/26/2021 and transferred to MedSur unit on 06/27/2021. 1. Seizure secondary to acute alcohol withdrawal: Keppra continued while withdrawing. Seizure precautions. CIWAs, PRN Ativan, folic acid, thiamine, multivitamin, and supportive care. Librium restarted 07/02/21. Appears calm 07/03/21. 2. Acute hypoxic respiratory failure: Resolved. On admission due to aspiration PNA. Extubated on 06/26/2021. Patient completed course Cefepim/vanc which was transitioned to augmentin through 07/01/21. Stable on room air since 06/27/2021. Repeat CXR 06/30/2021 nonacute. Patient continues to have productive phlegm, repeat CXR 07/03/21 with left perihilar infiltrate, augmentin resumed. 3. Acute metabolic encephalopathy: Likely component of alcohol withdrawal with underlying Warnicke's encephalopathy. CT of head nonacute. Ammonia negative. MRI brain shows old lacunar infarct. Check Thiamine levels. Thiamine supplementation. Switch Keppra PO to IV while NPO for agitation/confusion. Restarted librium 07/02/21 for withdrawal. Improved now 07/03/21 4. CVA: MRI Brain 06/30/21 old lacunar infarct right m[place] radiata w/ small vessel ischemic changes.Patient is already on DAPT w/ ASA/plavix as well as statin therapy, continued. Neurology consulted,Dr. Garcia following. RECORDIST following. 5. Transaminitis: Secondary to chronic alcohol abuse. Improving. Daily hepatic panel. 6. Abdominal distention: Suspect ileus KUB nonacute on 06/29/2020. Bowel regimen initiated. 7. Malnutrition: Dietary consultation placed 8. CAD: s/p PCI to pRCA and dRCA in 04/[address] Ross (cardio). Cardioprotective meds continued. 9. Essential HTN: Lisinopril and metoprolol resumed 10. Hyperlipidemia: Continued home Lipitor. 11. Depression/Anxiety: continued home Elavil and PRN Atarax 12. Code Status: Full Disposition: care home facility July 04, 2021 Discharge Medications Medication List This is the list of medications that you provided Last dose given Next dose due acetaminophen 500 MG tablet Dose: 500 mg Quantity: 30 tablet Refills: 0 Take 1 tablet by mouth every 6 hours as needed for Pain. Commonly known as: TYLENOL albuterol 108 (90 Base) MCG/ACT inhaler Dose: 2 puff Quantity: 18 g Refills: 4 INHALE 2 PUFFS INTO THE LUNGS EVERY 4 HOURS NEEDED FOR WHEEZING AND/OR SHORTNESS OF BREATH. amitriptyline 75 MG tablet Dose: 75 mg Quantity: 30 tablet Refills: 6 TAKE 1 TABLET BY MOUTH NIGHTLY. Commonly known as: ELAVIL aspirin EC 81 MG EC tablet Dose: 81 mg Quantity: 30 tablet Refills: 1 Take 1 tablet by mouth daily. Commonly known as: ECOTRIN LOW STRENGTH atorvastatin 80 MG tablet Dose: 80 mg Quantity: 30 tablet Refills: 11 TAKE 1 TABLET BY MOUTH NIGHTLY. Commonly known as: LIPITOR B-1 100 MG Tabs Dose: 1 tablet Quantity: 30 tablet Refills: 2 TAKE 1 TABLET BY MOUTH DAILY. Blood Pressure Cuff Misc Quantity: 1 each Refills: 0 Use PRN clopidogrel 75 MG tablet Dose: 75 mg Quantity: 30 tablet Refills: 2 TAKE 1 TABLET BY MOUTH DAILY. Commonly known as: PLAVIX folic acid 1 MG tablet Dose: 1 mg Quantity: 30 tablet Refills: 1 Take 1 tablet by mouth daily. Commonly known as: FOLVITE gabapentin 300 MG capsule Quantity: 90 capsule Refills: 2 TAKE 1 CAPSULE BY MOUTH 3 TIMES DAILY. Commonly known as: NEURONTIN hydrOXYzine 50 MG tablet Dose: 50 mg Quantity: 30 tablet Refills: 0 Take 1 tablet by mouth every 6 hours as needed for Anxiety (for MILD anxiety- patient reported anxiety 1-4). Commonly known as: ATARAX levETIRAcetam 750 MG tablet Dose: 750 mg Quantity: 60 tablet Refills: 2 Take 1 tablet by mouth two times a day. Commonly known as: KEPPRA lisinopril-hydrochlorothiazide 20-12.5 MG per tablet Dose: 2 tablet Quantity: 60 tablet Refills: 2 Take 2 tablets by mouth daily. Commonly known as: PRINZIDE,ZESTORETIC Magnesium Oxide 400 (241.3 Mg) MG tablet Dose: 400 mg Quantity: 30 tablet Refills: 2 Take 1 tablet by mouth daily. Commonly known as: MAG-OX Metoprolol Tartrate 25 MG tablet Dose: 25 mg Quantity: 60 tablet Refills: 2 TAKE 1 TABLET BY MOUTH TWO TIMES A DAY. Commonly known as: LOPRESSOR pantoprazole 40 MG tablet Dose: 40 mg Quantity: 30 tablet Refills: 2 TAKE 1 TABLET BY MOUTH DAILY. Commonly known as: PROTONIX sildenafil 100 MG tablet Dose: 100 mg Quantity: 30 tablet Refills: 6 Take 1 tablet by mouth daily as needed. Commonly known as: KERRI Physician(s) Family: Hayden Herrera APRN CNP, , Address: [address] [place], [place] [id number] Follow Up: No follow-up provider specified. Future Appointments Date Time Provider Department Center 08/25/2021 2:15 PM Hayden Herrera APRN CNP [facility] ADULT [facility] For more detailed information including patient medical records, please contact [phone] or go to [email or web address] Patient instructions, including activity, were given to the patient/family at discharge. Please seethe After Visit Summary in the medical record for details. Time spent on discharge: I have personally reviewed patient medical record including but not limited to blood work and radiology report, total time spent with patient is greater than 30 minutes more than 50% of the time is spent in direct patient care and patient consultation. Case was reviewed with patient, nursing staff, all questions were answered to patient's satisfaction. Completed by: Sky Chan on 07/04/21, 11:22 AM documented in this [facility]02-04-2022 History of Present illness Narrative* Angela Denson MD - 07/03/2021 7:31 AM EST [facility]/2021 Yonathan Fernandez 1975 [id number] Assessment/Plan: Yonathan Fernandez is a 46 y.o. male with a history of alcohol abuse with history of withdrawal seizures, CAD who presented to [facility] 06/24/2021 after being found by his mother seizing secondary to alcohol withdrawal. Admitted to heroin use requiring Narcan. In the ED, patient noted to be hypothermic (85.7) and was intubated for airway protection. The patient was admitted to the CCU and administered ATBs, Keppra, and supportive care. Extubated on 06/26/2021 and transferred to MedSurg unit on 06/27/2021. 1. Seizure secondary to acute alcohol withdrawal: Keppra continued while withdrawing. Seizure precautions. CIWAs, PRN Ativan, folic acid, thiamine, multivitamin, and supportive care. Librium restarted 07/02/21. Appears calm 07/03/21. 2. Acute hypoxic respiratory failure: Resolved. On admission due to aspiration PNA. Extubated on 06/26/2021. Patient completed course Cefepim/vanc which was transitioned to augmentin through 07/01/21. Stable on room air since 06/27/2021. Repeat CXR 06/30/2021 nonacute. Patient continues to have productive phlegm, repeat CXR 07/03/21 with left perihilar infiltrate, augmentin resumed. 3. Acute metabolic encephalopathy: Likely component of alcohol withdrawal with underlying Warnicke's encephalopathy. CT of head nonacute. Ammonia negative. MRI brain shows old lacunar infarct. Check Thiamine levels. Thiamine supplementation. Switch Keppra PO to IV while NPO for agitation/confusion. Restarted librium 07/02/21 for withdrawal. Improved now 07/03/21 4. CVA: MRI Brain 06/30/21 old lacunar infarct right m[place] radiata w/ small vessel ischemic changes.Patient is already on DAPT w/ ASA/plavix as well as statin therapy, continued. Neurology consulted,Dr. Garcia following. RECORDIST following. 5. Transaminitis: Secondary to chronic alcohol abuse. Improving. Daily hepatic panel. 6. Abdominal distention: Suspect ileus KUB nonacute on 06/29/2020. Bowel regimen initiated. 7. Malnutrition: Dietary consultation placed 8. CAD: s/p PCI to pRCA and dRCA in 04/[address] Ross (cardio). Cardioprotective meds continued. 9. Essential HTN: Lisinopril and metoprolol resumed 10. Hyperlipidemia: Continued home Lipitor. 11. Depression/Anxiety: continued home Elavil and PRN Atarax 12. Code Status: Full 13. DVT Prophylaxis: Heparin Updated Shanice Fernandez, mom, on 06/28/2021. Current living situation: Home Expected Disposition: SNF Estimated discharge date: TBD Subjective: Yesterday patient was actively hallucinating, concerns for etoh withdrawal, librium restarted with ativan prn. His keppra was also switched to IV form. This morning he is awake and alert and cooperative, no signs of agitation. States he feels fine. Discussed plan to repeat CXR given his contineud productive cough and work on SNF placement. He is in agreement. Physical Exam: Visit Vitals BP 135/82 (Patient Position: Lying) Pulse 116 Temp 97.7 F (36.5 C) (forehead) Resp 18 Wt 68.6 kg (151 lb 4.8 oz) SpO2 96% BMI 25.97 kg/m General: Chronically ill-appearing male, resting on room air, slurred speech Eyes: EOMI ENT: neck supple Cardiovascular: Regular rate and rhythm Respiratory: clear b/l Gastrointestinal: soft and nontender Genitourinary: no suprapubic tenderness Musculoskeletal: No edema. Skin: warm, dry Neuro: AAOx2, slurred speech improving. Follows commands and moves all extremities without difficulty. Psych: Calm and coperative. Current Medications: amitriptyline 75 mg Oral Nightly aspirin 81 mg Oral Daily atorvastatin 80 mg Oral Nightly chlordiazePOXIDE 10 mg Oral 3 times per day clopidogrel 75 mg Oral Daily folic acid 400 mcg Oral Daily heparin (porcine) 5,000 Units Subcutaneous 2 times per day levETIRAcetam (KEPPRA) IVPB 750 mg Intravenous Q12H [Held by provider] levETIRAcetam 750 mg Oral 2 times per day lisinopril 20 mg Oral Daily before lunch Magnesium Oxide 400 mg Oral Daily Metoprolol Tartrate 25 mg Oral 2x Daily nicotine 21 mg Transdermal Daily pantoprazole 40 mg Oral QPM BEFORE DINNER polyethylene glycol 3350 17 g Oral 2x Daily Protein pudding 4 oz Oral 3x Daily (dietary) senna-docusate 1 tablet Oral 2x Daily thera vitamin 1 tablet Oral Daily Thiamine Mononitrate 100 mg Oral Daily Labs, Imaging and Studies reviewed: Recent Labs Lab 07/03/21 0559 07/02/21 0714 07/01/21 0930 HGB 10.4* 9.7* 9.4* HCT 31.3* 29.4* 28.4* PLT 287.0 191.0 183.0 Recent Labs Lab 07/03/21 0559 07/02/21 0714 07/01/21 0754 NA 133* 132* 132* K 3.9 3.9 3.9 CL 103 103 104 BUN 4* 3* 3* CREATININE 0.34* 0.41* 0.40* CALCIUM 8.1* 8.2* 8.2* LABALBU 3.0* 2.9* 2.8* PHOS 4.0 4.2 3.4 Recent Labs Lab 07/03/2159 07/02/21 0714 07/01/21 0754 ALT 64* 66* 72* AST 74* 80* 95* ALKPHOS 159* 149* 151* BILITOT 0.9 0.9 0.9 No results for input(s): INR in the last 168 hours. * Angela Denson MD - 07/02/2021 7:12 AM EST [facility] Medicine / [facility] Inpatient Progress Note 07/02/2021 Yonathan Tai Slick 1975 [id number] Assessment/Plan: Yonathantaisha Fernandez is a 46 y.o. male with a history of alcohol abuse with history of withdrawal seizures, CAD who presented to [facility] 06/24/2021 after being found by his mother seizing secondary to alcohol withdrawal. Admitted to heroin use requiring Narcan. In the ED, patient noted to be hypothermic (85.7) and was intubated for airway protection. The patient was admitted to the CCU and administered ATBs, Keppra, and supportive care. Extubated on 06/26/2021 and [facility] 06[facility]. 1. Seizure secondary to acute alcohol withdrawal: Keppra continued while withdrawing. Seizure precautions. CIWAs, PRN Ativan, folic acid, thiamine, multivitamin, and supportive care. workforce services representative consulted, information regarding rehabilitation after discharge, community resources. 2. Acute hypoxic respiratory failure: Resolved. On admission due to aspiration PNA. Patient completed course Cefepim/vanc which was transitioned to augmentin. Extubated on 06/26/2021. Stable on room air since 06/27/2021. Repeat CXR 06/30/2021 nonacute. 3. Acute metabolic encephalopathy: Likely component of alcohol withdrawal with underlying Warnicke's encephalopathy. CT of head nonacute. Ammonia negative. MRI brain shows old lacunar infarct. Check Thiamine levels. Thiamine supplementation. Switch Keppra PO to IV while NPO for agitation/confusion. 4. CVA: MRI Brain 06/30/21 old lacunar infarct right m[place] radiata w/ small vessel ischemic changes.Patient is already on DAPT w/ ASA/plavix as well as statin therapy, continued. Neurology consulted,Dr. Garcia following. RECORDIST following. 5. Transaminitis: Secondary to chronic alcohol abuse. Improving. Daily hepatic panel. 6. Abdominal distention: Suspect ileus KUB nonacute on 06/29/2020. Bowel regimen initiated. 7. Hypokalemia: Potassium noted to be 1.7 on 06/25/2021. Status post replacement and maintenance potassium infusion. Improved. Daily renal panel. 8. Hypomagnesemia: 1.5 on 06/28/2021. Replaced. Daily magnesium. 9. Malnutrition: Dietary consultation placed 10. CAD: s/p PCI to pRCA and dRCA in 04/[address] Ross (cardio). Cardioprotective meds continued. 11. Essential HTN: Lisinopril and metoprolol resumed 12. Hyperlipidemia: Continued home Lipitor. 13. Depression/Anxiety: continued home Elavil and PRN Atarax 14. Code Status: Full 15. DVT Prophylaxis: Heparin Updated Shanice Fernandez, mom, on 06/28/2021. Current living situation: Home Expected Disposition: Home versus SNF, PT/OT consulted Estimated discharge date: TBD Subjective: Overnight patient was agitated requiring depacon x1. Neurology evaluation appreciated. This morning patient is sedated after receiving depacon overnight. He is easily roused with sternalrub but becomes very agitated and combative. Unable to take PO meds, screaming at nursing what do you want . Physical Exam: Visit Vitals BP (!) 141/97 (Patient Position: Lying) Pulse 85 Temp 97.9 F (36.6 C) (forehead) Resp 18 Wt 68.6 kg (151 lb 4.8 oz) SpO2 97% BMI 25.97 kg/m General: Chronically ill-appearing male, resting on room air, slurred speech Eyes: EOMI ENT: neck supple Cardiovascular: Regular rate and rhythm Respiratory: clear b/l Gastrointestinal: soft and nontender Genitourinary: no suprapubic tenderness Musculoskeletal: No edema. Skin: warm, dry Neuro: AAOx2, slurred speech. Follows commands. Unable to move legs though reports sensation intact. Unable to flex right bicep, strength right shoulder intact. + Right sided arm drift. Psych: Calm Current Medications: amitriptyline 75 mg Oral Nightly aspirin 81 mg Oral Daily atorvastatin 80 mg Oral Nightly clopidogrel 75 mg Oral Daily folic acid 400 mcg Oral Daily heparin (porcine) 5,000 Units Subcutaneous 2 times per day levETIRAcetam 750 mg Oral 2 times per day lisinopril 20 mg Oral Daily before lunch Magnesium Oxide 400 mg Oral Daily Metoprolol Tartrate 25 mg Oral 2x Daily nicotine 21 mg Transdermal Daily pantoprazole 40 mg Oral QPM BEFORE DINNER polyethylene glycol 3350 17 g Oral 2x Daily Protein pudding 4 oz Oral 3x Daily (dietary) senna-docusate 1 tablet Oral 2x Daily thera vitamin 1 tablet Oral Daily Thiamine Mononitrate 100 mg Oral Daily Labs, Imaging and Studies reviewed: Recent Labs Lab 07/01/21 0930 06/30/21 0629 06/29/21 0321 HGB 9.4* 10.4* 10.2* HCT 28.4* 31.4* 31.3* PLT 183.0 150.0 142.0* Recent Labs Lab 07/01/21 0754 06/30/21 0629 06/29/21 0321 NA 132* 133* 135 K 3.9 3.4* 3.9 CL 104 105 105 BUN 3* 3* 4* CREATININE 0.40* 0.40* 0.41* CALCIUM 8.2* 8.3* 8.5 LABALBU 2.8* 2.9* 3.2* PHOS 3.4 3.8 3.9 Recent Labs Lab 07/01/21 0754 06/30/21 0629 06/29/21 0321 ALT 72* 78* 76* AST 95* 119* 95* ALKPHOS 151* 149* 149* BILITOT 0.9 1.1 1.5 No results for input(s): INR in the last 168 hours. * Angela Denson MD - 07/01/2021 7:15 AM EST [facility] Medicine / [facility] Inpatient Progress Note 07/01/2021 Yonathan Fernandez 1975 [id number] Assessment/Plan: Yonathan Fernandez is a 46 y.o. male with a history of alcohol abuse with history of withdrawal seizures, CAD who presented to [facility] 06/24/2021 after being found by his mother seizing secondary to alcohol withdrawal. Admitted to heroin use requiring Narcan. In the ED, patient noted to be hypothermic (85.7) and was intubated for airway protection. The patient was admitted to the CCU and administered ATBs, Keppra, and supportive care. Extubated on 06/26/2021 and transferred to MedSur unit on 06/27/2021. 1. Seizure secondary to acute alcohol withdrawal: Keppra continued while withdrawing. Seizure precautions. CIWAs, PRN Ativan, folic acid, thiamine, multivitamin, and supportive care. workforce services representative consulted, information regarding rehabilitation after discharge, community resources. 2. Acute hypoxic respiratory failure: Resolved. On admission due to aspiration PNA. Patient completed course Cefepim/vanc which was transitioned to augmentin. Extubated on 06/26/2021. Stable on room air since 06/27/2021. Repeat CXR 06/30/2021 nonacute. 3. Acute metabolic encephalopathy: Secondary to above. CT of head nonacute. Ammonia negative. MRI brain shows old lacunar infarct. Initially attributed to etoh withdrawal post extubation however patient continues having slurred speech. MRI brain with old lacunar infract though does not explain current symtoms. Neurology consulted today, discussed with Dr. Garcia who will see patient in consult. 4. CVA: MRI Brain 06/30/21 old lacunar infarct right [place] radiata w/ small vessel ischemic changes.Patient is already on DAPT w/ ASA/plavix as well as statin therapy, continued. Neurology consulted,Dr. Garcia 5. Transaminitis: Secondary to chronic alcohol abuse. Daily hepatic panel. 6. Abdominal distention: Suspect ileus KUB nonacute on 06/29/2020. Bowel regimen initiated. 7. Hypokalemia: Potassium noted to be 1.7 on 06/25/2021. Status post replacement and maintenance potassium infusion. Improved. Daily renal panel. 8. Hypomagnesemia: 1.5 on 06/28/2021. Replaced. Daily magnesium. 9. Malnutrition: Dietary consultation placed 10. CAD: s/p PCI to pRCA and dRCA in 04/[address] Ross (cardio). Cardioprotective meds continued. 11. Essential HTN: Lisinopril and metoprolol resumed 12. Hyperlipidemia: Continued home Lipitor. 13. Depression/Anxiety: continued home Elavil and PRN Atarax 14. Code Status: Full 15. DVT Prophylaxis: Heparin Updated Shanice Fernandez, mom, on 06/28/2021. Current living situation: Home Expected Disposition: Home versus SNF, PT/OT consulted Estimated discharge date: TBD Subjective: Patient is new to me. Patient lives at home with his mother. Spoke with mother this am who states patient has been compliant with keppra at home. He continues to drink daily. He has never been diagnosed with a CVA. No prior issues ambulating, no hx of slurred speech. This morning patient alert and oriented to person and year only. He states he feels confused. He has significantly slurred speech. He has no strength in b/l LE. Denies any paresthesia in extremities. He has not received any anxiolytics over the past 12 hours. His persistent symptoms are concerning.MRI brain yesterday showed old lacunar infarct. Etiology of current symptoms unclear. have consulted Neurology for further evaluation. Physical Exam: Visit Vitals BP 136/86 (Patient Position: Lying) Pulse 89 Temp 98.2 F (36.8 C) (Axillary) Resp 20 Wt 68.6 kg (151 lb 4.8 oz) SpO2 97% BMI 25.97 kg/m General: Chronically ill-appearing male, resting on room air, slurred speech Eyes: EOMI ENT: neck supple Cardiovascular: Regular rate and rhythm Respiratory: clear b/l Gastrointestinal: soft and nontender Genitourinary: no suprapubic tenderness Musculoskeletal: No edema. Skin: warm, dry Neuro: AAOx2, slurred speech. Follows commands. Unable to move legs though reports sensation intact. Unable to flex right bicep, strength right shoulder intact. + Right sided arm drift. Psych: Calm Current Medications: amitriptyline 75 mg Oral Nightly aspirin 81 mg Oral Daily atorvastatin 80 mg Oral Nightly clopidogrel 75 mg Oral Daily folic acid 400 mcg Oral Daily heparin (porcine) 5,000 Units Subcutaneous 2 times per day levETIRAcetam 750 mg Oral 2 times per day lisinopril 20 mg Oral Daily before lunch Magnesium Oxide 400 mg Oral Daily Metoprolol Tartrate 25 mg Oral 2x Daily nicotine 21 mg Transdermal Daily pantoprazole 40 mg Oral QPM BEFORE DINNER polyethylene glycol 3350 17 g Oral 2x Daily Protein pudding 4 oz Oral 3x Daily (dietary) senna-docusate 1 tablet Oral 2x Daily thera vitamin 1 tablet Oral Daily Thiamine Mononitrate 100 mg Oral Daily Labs, Imaging and Studies reviewed: Recent Labs Lab 06/30/21 0606/29/21 03206/28/21 0510 HGB 10.4* 10.2* 10.2* HCT 31.4* 31.3* 30.7* PLT 150.0 142.0* 150.0 Recent Labs Lab 06/30/21 0606/29/21 0321 06/28/21 0510 NA 133* 135 133* K 3.4* 3.9 3.4* CL 105 105 104 BUN 3* 4* 3* CREATININE 0.40* 0.41* 0.39* CALCIUM 8.3* 8.5 8.0* LABALBU 2.9* 3.2* 3.0* PHOS 3.8 3.9 2.7 Recent Labs Lab 06/30/21 0606/29/21 0321 06/28/21 0510 ALT 78* 76* 59* AST 119* 95* 69* ALKPHOS 149* 149* 136* BILITOT 1.1 1.5 1.7* No results for input(s): INR in the last 168 hours. * Jamison Kidd MD - 06/30/2021 12:46 PM EST [facility] Medicine / [facility] Inpatient Progress Note 06/30/2021 Yonathan Fernandez [id number] Assessment/Plan: Yonathan Fernandez is a 46 y.o. male with a history of alcohol abuse with history of withdrawal seizures, CAD who presented to [facility] 06/24/2021 after being found by his mother seizing secondary to alcohol withdrawal. Admitted to heroin use requiring Narcan. In the ED, patient noted to be hypothermic (85.7) and was intubated for airway protection. The patient was admitted to the CCU and administered ATBs, Keppra, and supportive care. Extubated on 06/26/2021 and transferred to MedSur unit on 06/27/2021. 1. Seizure secondary to acute alcohol withdrawal: Keppra continued while withdrawing. Seizure precautions. CIWAs, PRN Ativan, folic acid, thiamine, multivitamin, and supportive care. workforce services representative consulted, information regarding rehabilitation after discharge, community resources. 2. Acute hypoxic respiratory failure: Afebrile without leukocytosis though noted to be hypothermic with lactic acidosis (12.2) upon admission. S/P vancomycin and cefepime for suspected aspiration after personal discussion with Dr. Guerrero, transitioned/completed Augmentin. Extubated on 06/26/2021. Stable on room air since 06/27/2021. Repeat CXR ordered 06/30/2021 for bilateral crackles. 3. Acute metabolic encephalopathy: Secondary to above. CT of head nonacute. Speech remains slurred and patient disoriented. Clinically worse 06/29/2021, ABG nonacute. MRI brain ordered. 4. Transaminitis: Secondary to chronic alcohol abuse. Downward trend. Daily hepatic panel. 5. Abdominal distention: Suspect ileus KUB nonacute on 06/29/2020. Bowel regimen initiated. 6. Hypokalemia: Potassium noted to be 1.7 on 06/25/2021. Status post replacement and maintenance potassium infusion. Improved. Daily renal panel. 7. Hypomagnesemia: 1.5 on 06/28/2021. Replaced. Daily magnesium. 8. Malnutrition: Dietary consultation placed 9. CAD: s/p PCI to pRCA and dRCA in 04/[address] Ross (cardio). Cardioprotective meds continued. 10. Essential HTN: Lisinopril and metoprolol resumed 11. Hyperlipidemia: Continued home Lipitor. 12. Depression/Anxiety: continued home Elavil and PRN Atarax 13. Code Status: Full 14. DVT Prophylaxis: Heparin Updated Shanice Fernandez, mom, on 06/28/2021. Current living situation: Home Expected Disposition: Home versus SNF, PT/OT consulted Estimated discharge date: 07/02/2021 pending MRI Subjective: Patient seen and examined. Continues to be encephalopathic. Marginally improved. Denies any acute complaints. Physical Exam: Visit Vitals BP 124/86 (Patient Position: Lying) Pulse 88 Temp 97.7 F (36.5 C) (forehead) Resp 20 Wt 68.6 kg (151 lb 4.8 oz) SpO2 95% BMI 25.97 kg/m General: Chronically ill-appearing male, resting on room air, slurred speech Eyes: EOMI ENT: neck supple Cardiovascular: Regular rate and rhythm Respiratory: Bilateral crackles Gastrointestinal: Mild gaseous distention, soft and nontender Genitourinary: no suprapubic tenderness Musculoskeletal: No edema. Skin: warm, dry Neuro: More awake and alert moves all extremities Psych: Calm Current Medications: amitriptyline 75 mg Oral Nightly amoxicillin-clavulanate 875 mg Oral 2 times per day aspirin 81 mg Oral Daily atorvastatin 80 mg Oral Nightly clopidogrel 75 mg Oral Daily folic acid 400 mcg Oral Daily heparin (porcine) 5,000 Units Subcutaneous 2 times per day levETIRAcetam (KEPPRA) IVPB 750 mg Intravenous Q12H lisinopril 20 mg Oral Daily before lunch Magnesium Oxide 400 mg Oral Daily Metoprolol Tartrate 25 mg Oral 2x Daily nicotine 21 mg Transdermal Daily Pantoprazole 40 mg IV Push QPM BEFORE DINNER polyethylene glycol 3350 17 g Oral 2x Daily Protein pudding 4 oz Oral 3x Daily (dietary) senna-docusate 1 tablet Oral 2x Daily thera vitamin 1 tablet Oral Daily thiamine 100 mg Intravenous Daily Labs, Imaging and Studies reviewed: Recent Labs Lab 06/30/21 0629 06/29/21 0321 06/28/21 0510 HGB 10.4* 10.2* 10.2* HCT 31.4* 31.3* 30.7* PLT 150.0 142.0* 150.0 Recent Labs Lab 06/30/21 0629 06/29/21 0321 06/28/21 0510 NA 133* 135 133* K 3.4* 3.9 3.4* CL 105 105 104 BUN 3* 4* 3* CREATININE 0.40* 0.41* 0.39* CALCIUM 8.3* 8.5 8.0* LABALBU 2.9* 3.2* 3.0* PHOS 3.8 3.9 2.7 Recent Labs Lab 06/30/21 0629 06/29/21 0321 06/28/21 0510 ALT 78* 76* 59* AST 119* 95* 69* ALKPHOS 149* 149* 136* BILITOT 1.1 1.5 1.7* No results for input(s): INR in the last 168 hours. * Jamison Kidd MD - 06/29/2021 9:56 AM EST [facility] Medicine / [facility] Inpatient Progress Note 06/29/2021 Yonathan Fernandez [id number] Assessment/Plan: Yonathan Fernandez is a 46 y.o. male with a history of alcohol abuse with history of withdrawal seizures, CAD who presented to [facility] 06/24/2021 after being found by his mother seizing secondary to alcohol withdrawal. Admitted to heroin use requiring Narcan. In the ED, patient noted to be hypothermic (85.7) and was intubated for airway protection. The patient was admitted to the CCU and administered ATBs, Keppra, and supportive care. Extubated on 06/26/2021 and transferred to MedSurg unit on 06/27/2021. 1. Seizure secondary to acute alcohol withdrawal: Keppra continued while withdrawing. Seizure precautions. CIWAs, PRN Ativan, folic acid, thiamine, multivitamin, and supportive care. workforce services representative consulted for alcohol audit, information regarding rehabilitation after discharge, community resources. 2. Acute hypoxic respiratory failure: Afebrile without leukocytosis though noted to be hypothermic with lactic acidosis (12.2) upon admission. S/P vancomycin and cefepime for suspected aspiration after personal discussion with Dr. Guerrero. Extubated on 06/26/2021 and noted to be 96% on room air as of 06/27/2021. Transitioned to Augmentin. 3. Acute metabolic encephalopathy: Secondary to above. CT of head nonacute. Speech remains slurred and patient disoriented. Clinically worse 06/29/2021. MRI brain and ABG ordered. 4. Transaminitis: Secondary to chronic alcohol abuse. Downward trend. Daily hepatic panel. 5. Abdominal distention: Suspect ileus. Bowel regimen initiated KUB ordered. 6. Hypokalemia: Potassium noted to be 1.7 on 06/25/2021. Status post replacement and maintenance potassium infusion. Improved. Daily renal panel. 7. Hypomagnesemia: 1.5 on 06/28/2021. Replaced. Daily magnesium. 8. Malnutrition: Dietary consultation placed 9. CAD: s/p PCI to pRCA and dRCA in 04/[address] Ross (cardio). Cardioprotective meds continued. 10. Essential HTN: Lisinopril and metoprolol resumed 11. Hyperlipidemia: Continued home Lipitor. 12. Depression/Anxiety: continued home Elavil and PRN Atarax 13. Code Status: Full 14. DVT Prophylaxis: Heparin Updated Shanice Fernandez, mom, on 06/28/2021. Current living situation: Home Expected Disposition: Home versus SNF, PT OT consulted Estimated discharge date: 07/02/2021 Subjective: Patient seen and examined. Patient more encephalopathic today. Very somnolent. Minimally interactive. Definitely worse than yesterday. Unable to provide history Physical Exam: Visit Vitals BP 121/80 Pulse 101 Temp 97.7 F (36.5 C) Resp 18 Wt 67.7 kg (149 lb 3.2 oz) SpO2 95% BMI 25.61 kg/m General: Chronically ill-appearing male, resting on room air Eyes: EOMI ENT: neck supple, right side of neck status post surgical removal appears to be healing-bandaged Cardiovascular: Regular rate and rhythm Respiratory: Clear to auscultation bilateral without wheezes or crackles Gastrointestinal: Mild gaseous distention, soft and nontender Genitourinary: no suprapubic tenderness Musculoskeletal: No edema. Skin: warm, dry Neuro: Somnolent, minimally interactive on exam, no focal deficits observed Psych: Unable to assess Current Medications: amitriptyline 75 mg Oral Nightly amoxicillin-clavulanate 875 mg Oral 2 times per day aspirin 81 mg Oral Daily atorvastatin 80 mg Oral Nightly chlordiazePOXIDE 10 mg Oral 3 times per day clopidogrel 75 mg Oral Daily folic acid 400 mcg Oral Daily heparin (porcine) 5,000 Units Subcutaneous 2 times per day levETIRAcetam (KEPPRA) IVPB 750 mg Intravenous Q12H lisinopril 20 mg Oral Daily before lunch Magnesium Oxide 400 mg Oral Daily Metoprolol Tartrate 25 mg Oral 2x Daily nicotine 21 mg Transdermal Daily Pantoprazole 40 mg IV Push QPM BEFORE DINNER polyethylene glycol 3350 17 g Oral 2x Daily senna-docusate 1 tablet Oral 2x Daily thera vitamin 1 tablet Oral Daily thiamine 100 mg Intravenous Daily Labs, Imaging and Studies reviewed: Recent Labs Lab 06/29/2132006/28/21 0510 06/27/21 0450 HGB 10.2* 10.2* 9.9* HCT 31.3* 30.7* 29.5* PLT 142.0* 150.0 141.0* Recent Labs Lab 06/29/2132006/28/21 0510 06/27/21 0450 06/25/21 2347 06/25/21 1815 NA 135 133* 140 < > 140 K 3.9 3.4* 4.6 < > 2.8* CL 105 104 110* < > 114* BUN 4* 3* 5* < > 11 CREATININE 0.41* 0.39* 0.41* < > 0.72 CALCIUM 8.5 8.0* 7.5* < > 6.2* LABALBU 3.2* 3.0* -- -- 2.3* PHOS 3.9 2.7 2.1* < > -- < > = values in this interval not displayed. Recent Labs Lab 06/29/2132006/28/21 0510 06/25/21 1815 ALT 76* 59* 67* AST 95* 69* 103* ALKPHOS 149* 136* 85 BILITOT 1.5 1.7* 1.6 No results for input(s): INR in the last 168 hours. * Jamison Kidd MD - 06/28/2021 11:47 AM EST [facility] Medicine / [facility] Inpatient Progress Note 06/28/2021 Yonathan Fernandez [id number] Assessment/Plan: Yonathan Fernanedz is a 46 y.o. male with a history of alcohol abuse with history of withdrawal seizures, CAD who presented to [facility] 06/24/2021 after being found by his mother seizing secondary to alcohol withdrawal. Admitted to heroin use requiring Narcan. In the ED, patient noted to be hypothermic (85.7) and was intubated for airway protection. The patient was admitted to the CCU and administered ATBs, Keppra, and supportive care. Extubated on 06/26/2021 and transferred to MedSurg unit on 06/27/2021. 1. Seizure secondary to acute alcohol withdrawal: Keppra continued while withdrawing. Seizure precautions. CIWAs, PRN Ativan, folic acid, thiamine, multivitamin, and supportive care. workforce services representative consulted for alcohol audit, information regarding rehabilitation after discharge, community resources. 2. Acute hypoxic respiratory failure: Afebrile without leukocytosis though noted to be hypothermic with lactic acidosis (12.2) upon admission. S/P vancomycin and cefepime for suspected aspiration after personal discussion with Dr. Guerrero. Extubated on 06/26/2021 and noted to be 96% on room air as of 06/27/2021. Transitioned to Augmentin 3. Metabolic encephalopathy: Secondary to above. CT of head nonacute. Speech remains slurred and patient disoriented though improving. 4. Transaminitis: Secondary to chronic alcohol abuse. Downward trend. Daily hepatic panel. 5. Hypokalemia: Potassium noted to be 1.7 on 06/25/2021. Status post replacement and maintenance potassium infusion. Improved. Daily renal panel. 6. Hypomagnesemia: 1.5 on 06/28/2021. Replace. Daily magnesium. 7. Malnutrition: Dietary consultation placed 8. CAD: s/p PCI to pRCA and dRCA in 04/[address] Ross (cardio). Cardioprotective meds continued. 9. Essential HTN: Lisinopril and metoprolol resumed 10. Hyperlipidemia: Continued home Lipitor. 11. Depression/Anxiety: continued home Elavil and PRN Atarax 12. Code Status: Full 13. DVT Prophylaxis: Heparin Updated Shanice Fernandez, mom, on 06/28/2021. Current living situation: Home Expected Disposition: Home versus SNF, PT OT consulted Estimated discharge date: 06/28/2021 Subjective: Patient seen and examined. Continues to be mildly confused. Denies any acute complaints. Does not having bowel movements. Physical Exam: Visit Vitals BP (!) 139/92 (Patient Position: Lying) Pulse 83 Temp 97.8 F (36.6 C) (Oral) Resp 18 Wt 72.6 kg (160 lb) SpO2 97% BMI 27.46 kg/m General: Chronically ill-appearing male, resting comfortably in bed on room air, dysarthria present Eyes: EOMI ENT: neck supple, right side of neck status post surgical removal appears to be healing-bandaged Cardiovascular: Regular rate and rhythm Respiratory: Clear to auscultation bilateral without wheezes or crackles Gastrointestinal: Mild gaseous distention, soft and nontender Genitourinary: no suprapubic tenderness Musculoskeletal: No edema. Skin: warm, dry Neuro: Alert. No focal or lateralizing deficits Psych: Mood appropriate. Current Medications: amitriptyline 75 mg Oral Nightly amoxicillin-clavulanate 875 mg Oral 2 times per day aspirin 81 mg Oral Daily atorvastatin 80 mg Oral Nightly chlordiazePOXIDE 10 mg Oral 3 times per day clopidogrel 75 mg Oral Daily folic acid 400 mcg Oral Daily heparin (porcine) 5,000 Units Subcutaneous 2 times per day levETIRAcetam (KEPPRA) IVPB 750 mg Intravenous Q12H lisinopril 20 mg Oral Daily before lunch Magnesium Oxide 400 mg Oral Daily Metoprolol Tartrate 25 mg Oral 2x Daily nicotine 21 mg Transdermal Daily Pantoprazole 40 mg IV Push QPM BEFORE DINNER Potassium Chloride 20mEq/100ml 20 mEq Intravenous Every 2 hours senna-docusate 1 tablet Oral 2x Daily thera vitamin 1 tablet Oral Daily thiamine 100 mg Intravenous Daily Labs, Imaging and Studies reviewed: Recent Labs Lab 06/28/21 0510 06/27/21 0450 06/26/21 0450 HGB 10.2* 9.9* 8.7* HCT 30.7* 29.5* 26.0* PLT 150.0 141.0* 146.0* Recent Labs Lab 06/28/21 0510 06/27/21 0450 06/27/21 0039 06/26/21 0644 06/26/21 0450 06/25/21 2347 06/25/21 1815 06/25/21 0445 06/24/21 1753 NA 133* 140 140 < > 143 < > 140 < > 134* K 3.4* 4.6 3.9 < > 3.7 < > 2.8* < > 4.4 CL 104 110* 109 < > 117* < > 114* < > 97 BUN 3* 5* 5* < > 9 < > 11 < > 17 CREATININE 0.39* 0.41* 0.43* < > 0.65* < > 0.72 < > 0.61* CALCIUM 8.0* 7.5* 7.2* < > 6.5* < > 6.2* < > 8.2* LABALBU 3.0* -- -- -- -- -- 2.3* -- 4.0 PHOS 2.7 2.1* -- -- 3.3 -- -- < > 5.4* < > = values in this interval not displayed. Recent Labs Lab 06/28/21 0510 06/25/21 1815 06/24/21 1753 ALT 59* 67* 85* AST 69* 103* 188* ALKPHOS 136* 85 124 BILITOT 1.7* 1.6 2.6* No results for input(s): INR in the last 168 hours. * Joseph Guerrero MD - 06/27/2021 7:23 AM EST Images from the original note were not included. CCU Progress Note 06/27/2021 7:24 AM Assessment: 1. Acute alcohol withdrawal 2. Seizure 3. Acute hypoxic respiratory failure 4. Lactic acidosis 5. Severe hypokalemia 6. Hypothermia Plan: Extubated yesterday without complication Closely monitor for seizures, CIWA protocol and as needed Ativan Continue antibiotics given elevated pro-Elvin and likelihood of aspiration. Total 5 days Started on Keppra. Continue for now Continue amitriptyline GI Prophylaxis with PPI DVT Prophylaxis with heparin every 12 hours Nutrition: Okay for regular diet Code Status: Full code Patient stable, okay to be transferred to general medical floor The entirety of the above assessment and plan was reviewed, verified, and amended on this date 06/27/2021 ([facility]) Plan of care discussed with nursing/staff. CC: Alcohol withdrawal, seizures Subjective: Acute Events Overnight: Patient stable overnight with no acute events. Plan to extubate today. Will decrease sedation as tolerated. Medications: Reviewed Objective: Vital signs for last 24 hours: Temp: [97.3 F (36.3 C)-98.1 F (36.7 C)] 97.4 F (36.3 C) Heart Rate: [86-106] 90 Resp: [11-34] 22 BP: (103-163)/(73-105) 135/95 FiO2 (%) Ordered: [40 %-100 %] 40 % Vent settings for last 24 hours: FiO2 (%) Ordered: [40 %-100 %] 40 % S RR: [12] 12 S VT: [450 mL] 450 mL Hemodynamic parameters for last 24 hours: Intake/Output last 3 shifts: I/O last 3 completed shifts: In: 2397.2 [I.V.:1140.2; NG/GT:257; IV Piggyback:1000] Out: 6075 [Urine:6075] Physical Exam: Visit Vitals BP (!) 135/95 Pulse 90 Temp 97.4 F (36.3 C) (Axillary) Resp 22 Wt 57.2 kg (126 lb 1.7 oz) SpO2 100% BMI 21.65 kg/m All Active Lines: Patient Circulatory Lines Status Active PICC Line / CVC Line / PIV Line / Intraosseous Line / Epidural Line / ART Line / Line / Tunneled CVC / Port Name Placement date Placement time Site Days CVC Triple Lumen 06/24/21 Right Internal jugular 7 06/24/21 1825 Internal jugular 2 Peripheral IV 06/24/21 Right Forearm 20 G 06/24/21 1758 -- 2 Central Lines & Foleys with Indications of Use: CVC Triple Lumen 06/24/21 Right Internal jugular 7 (Active) Indications of Use for this Hospitalization Long-term IV fluids/meds non- antibiotic 06/26/211999 Number of days: 2 Urethral Catheter ([place]) 06/24/21 Temperature probe 16 fr (Active) Does patient meet criteria to continue urinary catheter? Urine output ordered every 1 hour (CCU Only) 06/27/21 0400 Number of days: 2 General Appearance: Sedated, no distress, appears stated age HEENT: Normocephalic, atraumatic, pupils equal bilaterally, nasal mucosa normal without drainage, oral mucosa normal Neck: Supple, trachea midline, no JVD Lungs: Clear to auscultation bilaterally, respirations unlabored Chest wall: No crepitus or deformity, symmetrical chest rise Heart: Regular rate and rhythm, S1 and S2 normal, no murmur Abdomen: Soft, non-tender, bowel sounds active, no masses Genitalia: deferred Rectal: deferred Extremities: Extremities normal, atraumatic, no cyanosis or edema, 2+ pulses in all extremities Skin: Skin color, texture, turgor normal, no rashes or lesions Lymph nodes: Cervical, supraclavicular nodes normal Neurologic: Not following commands, difficult to arouse, moving all extremities The entirety of the above exam has been performed on this date 06/27/2021, has been reviewed, verified, and amended accordingly. ([facility]) Diagnostic studies: Labs and radiographic studies personally reviewed CXR: Results for orders placed during the hospital encounter of 06/24/21 XR CHEST 1 VIEW 06/24/2021 Impression Endotracheal tube tip is 3 cm from yevgeniy. Lungs are clear. No pneumothorax. Lab Results Component Value Date WHITEBLOODCE 6.5 06/27/2021 HGB 9.9 (L) 06/27/2021 HCT 29.5 (L) 06/27/2021 MCV 105.7 (H) 06/27/2021 PLT 141.0 (L) 06/27/2021 Lab Results Component Value Date CREATININE 0.41 (L) 06/27/2021 BUN 5 (L) 06/27/2021 NA 140 06/27/2021 K 4.6 06/27/2021 CL 110 (H) 06/27/2021 CO2 24 06/27/2021 Lab Results Component Value Date INR 1.04 11/16/2020 INR 0.94 09/21/2020 INR 1.03 05/14/2019 Critical Care Time: 35 Minutes separate of procedures Joseph Guerrero MD * Jayde Trevino RRT - 06/26/2021 1:28 PM EST Patient extubated and placed on 4 LPM NC. * Joseph Guerrero MD - 06/26/2021 8:58 AM EST Images from the original note were not included. CCU Progress Note 06/26/2021 8:58 AM Assessment: 1. Acute alcohol withdrawal 2. Seizure 3. Acute hypoxic respiratory failure 4. Lactic acidosis 5. Severe hypokalemia 6. Hypothermia Plan: Current vent settings: VC-TV = 450, rate = 12, PEEP = 5, FiO2 =40%. Vent day #2 Extubated today if tolerated SBT well Closely monitor for seizures as sedation is decreased Will switch to CIWA protocol and as needed Ativan Continue antibiotics given elevated pro-Elvin and likelihood of aspiration. Total 5 days Started on Keppra. Continue for now Continue amitriptyline GI Prophylaxis with PPI DVT Prophylaxis with heparin every 12 hours Nutrition: NPO. If unable to be extubated, will start tube feeds Code Status: Full code The entirety of the above assessment and plan was reviewed, verified, and amended on this date 06/26/2021 ([facility]) Plan of care discussed with nursing/staff. CC: Alcohol withdrawal, seizures Subjective: Acute Events Overnight: Patient stable overnight with no acute events. Plan to extubate today. Will decrease sedation as tolerated. Medications: Reviewed Objective: Vital signs for last 24 hours: Temp: [96.4 F (35.8 C)-97.9 F (36.6 C)] 97.1 F (36.2 C) Heart Rate: [81-100] 98 Resp: [14-18] 16 BP: (103-136)/(68-88) 113/78 FiO2 (%) Ordered: [40 %] 40 % Vent settings for last 24 hours: FiO2 (%) Ordered: [40 %] 40 % S RR: [12] 12 S VT: [450 mL] 450 mL Hemodynamic parameters for last 24 hours: Intake/Output last 3 shifts: I/O last 3 completed shifts: In: 6186.7 [I.V.:3479; NG/GT:646; IV Piggyback:2060.7] Out: 2675 [Urine:2675] Physical Exam: Visit Vitals BP 113/78 (BP Location: Left arm, Patient Position: Lying) Pulse 98 Temp 97.1 F (36.2 C) (Axillary) Resp 16 Wt 55.4 kg (122 lb 2.2 oz) SpO2 100% BMI 20.96 kg/m All Active Lines: Patient Circulatory Lines Status Active PICC Line / CVC Line / PIV Line / Intraosseous Line / Epidural Line / ART Line / Line / Tunneled CVC / Port Name Placement date Placement time Site Days CVC Triple Lumen 06/24/21 Right Internal jugular 7 06/24/21 1825 Internal jugular 1 Peripheral IV 06/24/21 Right Forearm 20 G 06/24/21 1758 -- 1 Central Lines & Foleys with Indications of Use: CVC Triple Lumen 06/24/21 Right Internal jugular 7 (Active) Indications of Use for this Hospitalization Hemodynamic monitoring;Long-term IV fluids/meds non-antibiotic;Irritants;Vesicants 06/26/21 0000 Number of days: 1 Urethral Catheter (Griffin) 06/24/21 Temperature probe 16 fr (Active) Does patient meet criteria to continue urinary catheter? Urine output ordered every 1 hour (CCU Only) 06/26/21 0330 Number of days: 1 General Appearance: Sedated, no distress, appears stated age HEENT: Normocephalic, atraumatic, pupils equal bilaterally, nasal mucosa normal without drainage, oral mucosa normal Neck: Supple, trachea midline, no JVD Lungs: Clear to auscultation bilaterally, respirations unlabored Chest wall: No crepitus or deformity, symmetrical chest rise Heart: Regular rate and rhythm, S1 and S2 normal, no murmur Abdomen: Soft, non-tender, bowel sounds active, no masses Genitalia: deferred Rectal: deferred Extremities: Extremities normal, atraumatic, no cyanosis or edema, 2+ pulses in all extremities Skin: Skin color, texture, turgor normal, no rashes or lesions Lymph nodes: Cervical, supraclavicular nodes normal Neurologic: Not following commands, difficult to arouse, moving all extremities The entirety of the above exam has been performed on this date 06/26/2021, has been reviewed, verified, and amended accordingly. ([facility]) Diagnostic studies: Labs and radiographic studies personally reviewed CXR: Results for orders placed during the hospital encounter of 06/24/21 XR CHEST 1 VIEW 06/24/2021 Impression Endotracheal tube tip is 3 cm from yevgeniy. Lungs are clear. No pneumothorax. Lab Results Component Value Date WHITEBLOODCE 6.3 06/26/2021 HGB 8.7 (L) 06/26/2021 HCT 26.0 (L) 06/26/2021 MCV 106.1 (H) 06/26/2021 PLT 146.0 (L) 06/26/2021 Lab Results Component Value Date CREATININE 0.65 (L) 06/26/2021 BUN 9 06/26/2021 NA 143 06/26/2021 K 3.5 (L) 06/26/2021 CL 117 (H) 06/26/2021 CO2 23 06/26/2021 Lab Results Component Value Date INR 1.04 11/16/2020 INR 0.94 09/21/2020 INR 1.03 05/14/2019 Critical Care Time: 35 Minutes separate of procedures Joseph Guerrero MD * Joseph Guerrero MD - 06/25/2021 7:25 AM EST Images from the original note were not included. CCU Progress Note 06/25/2021 7:25 AM Assessment: 1. Acute alcohol withdrawal 2. Seizure 3. Acute hypoxic respiratory failure 4. Lactic acidosis 5. Severe hypokalemia 6. Hypothermia Plan: Current vent settings: VC-TV = 450, rate = 12, PEEP = 5, FiO2 =40%. Vent day #1 Consider extubation later today if patient is able to come off sedation without any seizure activity If able to be extubated, will switch to CIWA protocol and as needed Ativan Continue antibiotics given elevated pro-Elvin and likelihood of aspiration Started on Keppra. Continue for now Aggressively replace potassium. BMP every 6 hours and lactic acid every 6 hours until labs normalize Continue amitriptyline GI Prophylaxis with PI DVT Prophylaxis with heparin every 12 hours Nutrition: NPO. If unable to be extubated, will start tube feeds Code Status: Full code The entirety of the above assessment and plan was reviewed, verified, and amended on this date 06/25/2021 ([facility]) Plan of care discussed with nursing/staff. CC: Alcohol withdrawal, seizures Subjective: Acute Events Overnight: Patient stable overnight on ventilator minimal sedation. The patient did start to wake up and became agitated, so sedation was increased. Still requiring low- dose norepinephrine to maintain adequate blood pressure Medications: Reviewed Objective: Vital signs for last 24 hours: Temp: [85.1 F (29.5 C)-99.3 F (37.4 C)] 99.3 F (37.4 C) Heart Rate: [65-124] 96 Resp: [11-27] 26 BP: (74-180)/(51-131) 102/59 FiO2 (%) Ordered: [40 %-65 %] 40 % Vent settings for last 24 hours: FiO2 (%) Ordered: [40 %-65 %] 40 % S RR: [12] 12 S VT: [450 mL-500 mL] 450 mL Hemodynamic parameters for last 24 hours: Intake/Output last 3 shifts: I/O last 3 completed shifts: In: 4672.3 [I.V.:2513.3; IV Piggyback:2158] Out: 985 [Urine:885; Emesis/NG output:100] Physical Exam: Visit Vitals BP 102/59 Pulse 96 Temp 99.3 F (37.4 C) (Axillary) Resp 26 Wt 54.7 kg (120 lb 9.5 oz) SpO2 100% BMI 20.70 kg/m All Active Lines: Patient Circulatory Lines Status Active PICC Line / CVC Line / PIV Line / Intraosseous Line / Epidural Line / ART Line / Line / Tunneled CVC / Port Name Placement date Placement time Site Days CVC Triple Lumen 06/24/21 Right Internal jugular 7 06/24/21 1825 Internal jugular less than 1 Peripheral IV 06/24/21 Right Forearm 20 G 06/24/21 1758 -- less than 1 Central Lines & Foleys with Indications of Use: CVC Triple Lumen 06/24/21 Right Internal jugular 7 (Active) Indications of Use for this Hospitalization Hemodynamic monitoring 06/24/21 2155 Number of days: 0 Urethral Catheter (Griffin) 06/24/21 Temperature probe 16 fr (Active) Does patient meet criteria to continue urinary catheter? Order for Catheter to remain in place >2 days 06/25/21 0300 Number of days: 0 General Appearance: Sedated, no distress, appears stated age HEENT: Normocephalic, atraumatic, pupils equal bilaterally, nasal mucosa normal without drainage, oral mucosa normal Neck: Supple, trachea midline, no JVD Lungs: Clear to auscultation bilaterally, respirations unlabored Chest wall: No crepitus or deformity, symmetrical chest rise Heart: Regular rate and rhythm, S1 and S2 normal, no murmur Abdomen: Soft, non-tender, bowel sounds active, no masses Genitalia: deferred Rectal: deferred Extremities: Extremities normal, atraumatic, no cyanosis or edema, 2+ pulses in all extremities Skin: Skin color, texture, turgor normal, no rashes or lesions Lymph nodes: Cervical, supraclavicular nodes normal Neurologic: Not following commands, difficult to arouse, moving all extremities The entirety of the above exam has been performed on this date 06/25/2021, has been reviewed, verified, and amended accordingly. ([facility]) Diagnostic studies: Labs and radiographic studies personally reviewed CXR: Results for orders placed during the hospital encounter of 06/24/21 XR CHEST 1 VIEW 06/24/2021 Impression Endotracheal tube tip is 3 cm from yevgeniy. Lungs are clear. No pneumothorax. Lab Results Component Value Date WHITEBLOODCE 8.9 06/25/2021 HGB 10.0 (L) 06/25/2021 HCT 28.4 (L) 06/25/2021 MCV 99.3 (H) 06/25/2021 PLT 185.0 06/25/2021 Lab Results Component Value Date CREATININE 0.72 06/25/2021 BUN 15 06/25/2021 NA 139 06/25/2021 K 1.7 (LL) 06/25/2021 CL 108 06/25/2021 CO2 22 06/25/2021 Lab Results Component Value Date INR 1.04 11/16/2020 INR 0.94 09/21/2020 INR 1.05/14/2019 Critical Care Time: 40 Minutes separate of procedures Joseph Guerrero MD documented in this [facility]02-02-2022 Consult note* Bethany Garcia MD - 07/01/2021 6:58 PM EST DATE OF VISIT: 07/01/2021 PATIENT NAME: Yonathan Fernandez DATE OF : 1975 CC Slurred speech weakness Assessment and Plan: This is a 46-year-old man with history of drug abuse as well as alcohol abuse, who was admitted forhypothermia, heroin overdose, and encephalopathy. Patient has somewhat recovered from his ICU stay.However currently has slurred speech as well as weakness in the lower extremities. 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 Recommend checking thiamine, and thiamine replacement, and fortunately this may be permanent. HISTORY OF PRESENT ILLNESS: The patient is a 46 y.o. male who presents to the hospital a few days ago because of acute encephalopathy, possible seizures, hypothermia, respiratory failure. Patient hasa history of significant alcohol as well as drug abuse. Patient was in the ICU for few days, as he has been extubated. He has regained consciousness. However now patient is having trouble speaking, patient does not speak clearly. Also he has been having difficulty lifting his legs against gravity. Denies weakness in the arms. The patient is MRI of the brain which showed bilateral medial thalamic hyperintensity. He has elevated transamanita's, hypokalemia hypomagnesia, severely elevated MCV, anemia. REVIEW OF SYSTEMS: Patient is not able to speak coherently PHYSICAL EXAMINATION: Visit Vitals BP 121/79 (BP Location: Left arm, Patient Position: Sitting, Cuff Size: Large) Pulse 92 Temp 98.5 F (36.9 C) (Oral) Resp 12 Wt 68.6 kg (151 lb 4.8 oz) SpO2 95% BMI 25.97 kg/m General: No acute distress. HEENT: Normocephalic. No ptosis. No rhinorrhea. Cardiac: Regular rate and rhythm. Pulmonary: Non-labored breathing. GI: Abdomen non-distended. Skin: No rash noted on exposed areas. Musculoskeletal: Neck is supple. No nuchal rigidity. Extremities: no peripheral edema. NEUROLOGIC EXAMINATION: Mental Status: Patient is awake alert he is not able to speak coherently, speaks mostly gibberish Cranial Nerve II: No visual field defects noted. Pupils are reactive to light bilaterally. Cranial Nerve III, IV, : Extraocular movements intact. No nystagmus. Cranial Nerve V: No sensory loss noted on the face. Jaw is in midline with jaw opening. Cranial Nerve VII: Face is symmetric. No facial droop. Cranial Nerve VIII: Hearing intact bilaterally. Cranial Nerve IX: No apparent swallowing dysfunction. Cranial Nerve X: Palate is symmetric. No hoarseness. Cranial Nerve XI: Shoulder shrug intact bilaterally. Cranial Nerve XII: Tongue is in midline with protrusion. No atrophy or fasciculations Motor examination: Was unable to fully participate with motor exam, able to lift both arms against gravity, able to wiggle toes, able to lift legs against gravity Reflexes: Biceps Triceps BR Knee Ankle Right 0 0 0 0 0 Left 0 0 0 0 0 Toes: Sensory examination: Intact to touch Coordination: Intact. No dysmetria. LABS AND IMAGING: Past Medical History: Diagnosis Date Alcohol abuse Fall 11/16/2020 Hyperlipidemia Hypertension Myocardial infarct (HCC) Seizures (HCC) Past Surgical History: Procedure Laterality Date arm surgery CORONARY ANGIOPLASTY WITH STENT PLACEMENT CORONARY ANGIOPLASTY WITH STENT PLACEMENT HERNIA REPAIR TONSILLECTOMY VASECTOMY No Known Allergies Current Facility-Administered Medications Medication Dose Route Frequency Provider Last Rate Last Admin acetaminophen (TYLENOL) tablet 650 mg 650 mg Oral Q4H PRN David Zaldivar MD albuterol 2.5mg-ipratropium 0.5mg/3ml (DUONEB) nebulizer soln 3 mL 3 mL Nebulization Q6H PRN David Zaldivar MD amitriptyline (ELAVIL) tablet 75 mg 75 mg Oral Nightly David Zaldivar MD 75 mg at 06/29/212043 aspirin chewable tablet 81 mg 81 mg Oral Daily David Zaldivar MD 81 mg at 07/01/21 0819 atorvastatin (LIPITOR) tablet 80 mg 80 mg Oral Nightly David Zaldivar MD 80 mg at 06/29/212048 bisacodyl (DULCOLAX) EC tablet 5 mg 5 mg Oral Daily PRN David Zaldivar MD clopidogrel (PLAVIX) tablet 75 mg 75 mg Oral Daily David Zaldivar MD 75 mg at 07/01/21 0819 dextrose 5% solution Intravenous Continuous PRN Joseph Guerrero MD folic acid (FOLVITE) tablet 400 mcg 400 mcg Oral Daily Jamison Kidd MD 400 mcg at 07/01/21 0820 For electrolyte abnormalities subsequent to initial labs (refer to the [facility] Electrolyte Replacement Orders) 1 each 1 each Other Daily PRN Joseph Guerrero MD heparin (porcine) injection 5,000 Units 5,000 Units Subcutaneous 2 times per day David Zaldivar MD 5,000 Units at 07/01/21 1708 hydrALAZINE (APRESOLINE) injection 10 mg 10 mg Intravenous Q6H PRN Clarence Partida MD 10 mg at 06/26/21 1825 hydrOXYzine (ATARAX) tablet 50 mg 50 mg Oral Q6H PRN Arjun Leon NP lactated ringers infusion Intravenous Continuous Jamison Kidd MD 100 mL/hr at 07/01/21 1719 New Bag at 07/01/21 1719 levETIRAcetam (KEPPRA) tablet 750 mg 750 mg Oral 2 times per day Jamison Kidd MD 750 mg at 07/01/21 1708 lisinopril (PRINIVIL,ZESTRIL) tablet 20 mg 20 mg Oral Daily before lunch Arjun Leon NP 20 mg at 07/01/21 1314 LORazepam (ATIVAN) tablet 2-4 mg 2-4 mg Oral Q1H PRN Joseph Guerrero MD Or LORazepam injection 2-4 mg 2-4 mg Intramuscular Q1H PRN Joseph Guerrero MD Or LORazepam injection 2-4 mg 2-4 mg IV Push Q1H PRN Joseph Guerrero MD 3 mg at 06/28/21 1655 Magnesium Oxide (MAG-OX) tablet 400 mg 400 mg Oral Daily Arjun Leon NP 400 mg at 07/01/21 0820 Metoprolol Tartrate (LOPRESSOR) tablet 25 mg 25 mg Oral 2x Daily Arjun Leon NP 25 mg at 07/01/21 1708 nicotine (NICODERM CQ) 21 MG/24HR 1 patch 21 mg Transdermal Daily David Zaldivar MD 1 patch at 07/01/21 0827 nicotine polacrilex (COMMIT) lozenge 4 mg 4 mg Oral PRN David Zaldivar MD ondansetron hcl (ZOFRAN) injection 4 mg 4 mg IV Push Q6H PRN David Zaldivar MD pantoprazole (PROTONIX) EC tablet 40 mg 40 mg Oral QPM BEFORE DINNER Jamison Kidd MD 40 mg at07/01/21 170 polyethylene glycol 3350 (GLYCOLAX, MIRALAX) packet 17 g 17 g Oral 2x Daily Jamison Kidd MD 17 g at 07/01/21 170 Protein pudding supplement 4 oz 4 oz Oral 3x Daily (dietary) Kolton Ashby RD,LD 4 oz at 314 senna-docusate (PERICOLACE) 8.6-50 MG per tablet 1 tablet 1 tablet Oral 2x Daily David Zaldivar MD 1 tablet at 07/01/21 1710 thera vitamin tablet 1 tablet 1 tablet Oral Daily Joseph Guerrero MD 1 tablet at 07/01/21 0820 Thiamine Mononitrate (VITAMIN B-1) tablet 100 mg 100 mg Oral Daily Jamison Kidd MD 100 mg at 07/01/21 0820 Social History Socioeconomic History Marital status: Single Spouse name: Not on file Number of children: Not on file Years of education: Not on file Highest education level: Not on file Occupational History Not on file Tobacco Use Smoking status: Current Every Day Smoker Packs/day: 1.00 Years: 20.00 Pack years: 20.00 Types: Cigarettes Smokeless tobacco: Never Used Vaping Use Vaping Use: Never used Substance and Sexual Activity Alcohol use: Yes Comment: 6 Drug use: No Sexual activity: Yes Partners: Female control/protection: Surgical Other Topics Concern Not on file Social History Narrative Not on file Social Determinants of Health Financial Resource Strain: Low Risk Difficulty of Paying Living Expenses: Not hard at all Food Insecurity: Unknown Worried About Running Out of Food in the Last Year: Never true Ran Out of Food in the Last Year: Not on file Transportation Needs: Unknown Lack of Transportation (Medical): No Lack of Transportation (Non-Medical): Not on file Physical Activity: Unknown Days of Exercise per Week: 0 days Minutes of Exercise per Session: Not on file Stress: No Stress Concern Present Feeling of Stress : Not at all Social Connections: Unknown Frequency of Communication with Friends and Family: Not on file Frequency of Social Gatherings with Friends and Family: Not on file Attends Evangelical Services: Not on file Active Member of Clubs or Organizations: No Attends Club or Organization Meetings: Not on file Marital Status: Not on file Intimate Partner Violence: Unknown Fear of Current or Ex-Partner: No Emotionally Abused: Not on file Physically Abused: Not on file Sexually Abused: Not on file Family History Problem Relation Age of Onset Diabetes Maternal Grandfather Thank you for allowing me assist in the care of your patient. Warmest Regards, Bethany Garcia The above note was generated using voice recognition software. It may contain grammatical, syntax and spelling errors. * Arjun Chin MD - 06/27/2021 7:40 PM EST Associated Order(s): IP CONSULT TO HOSPITALIST See consult note from [facility] * Kolton Ashby RD,ISSA - 06/27/2021 9:55 AM EST Associated Order(s): IP CONSULT TO DIETITIAN Received MAKE UP ARRANGER consult to assess patient. Dietitian currently following patient as was receiving trickle tube feeding while on mechanical vent. Patient now transferring to med/surg floor. Recommend advancing oral diet as appropriate and suitable nutrition supplement for healing/skin integrity/as phosphorus supplement upon initiation of diet. Will be following. Thank you for the consult * Arjun Leon NP - 06/27/2021 7:41 AM EST [facility] / [facility] History and Physical 06/27/21 Yonathan Ceballosell 1975 [id number] Assessment/Plan: Yonathan Fernandez is a 46 y.o. male with a history of alcohol abuse with history of withdrawal seizures, CAD who presented to [facility] 06/24/2021 after being found by his mother seizing secondary to alcohol withdrawal. Admitted to heroin use requiring Narcan. In the ED, patient noted to be hypothermic (85.7) and was intubated for airway protection. The patient was admitted to the CCU and administered ATBs, Keppra, and supportive care. Extubated on 06/26/2021 and transferred to [facility] unit on 06/27/2021. [facility] was asked to take over medical management 1. Seizure secondary to acute alcohol withdrawal: Keppra continued while withdrawing. Seizure precautions. CIWAs, PRN Ativan, folic acid, thiamine, multivitamin, and supportive care. workforce services representative consulted for alcohol audit, information regarding rehabilitation after discharge, community resources. 2. Acute hypoxic respiratory failure: Afebrile without leukocytosis though noted to be hypothermic with lactic acidosis (12.2) upon admission. S/P vancomycin and cefepime for suspected aspiration after personal discussion with Dr. Guerrero. Extubated on 06/26/2021 and noted to be 96% on room air as of 06/27/2021. Transitioned to Augmentin 3. Metabolic encephalopathy: Secondary to above. CT of head nonacute. Speech remains slurred and patient disoriented though improving. 4. Transaminitis: Secondary to chronic alcohol abuse. Downward trend. Hepatic panel in a.m. 5. Hypokalemia: Potassium noted to be 1.7 on 06/25/2021. Status post replacement and maintenance potassium infusion. Resolved as of 06/27/2021 and tolerating diet. Daily labs. Replace as needed 6. Hypomagnesemia: Replaced with repeat mag level ordered for a.m. 7. Malnutrition: Dietary consultation placed 8. CAD: s/p PCI to pRCA and dRCA in 04/[address] Ross (cardio). Cardioprotective meds continued 9. Essential HTN: Lisinopril and metoprolol resumed 10. Hyperlipidemia: Continued home Lipitor. 11. Depression/Anxiety: continued home Elavil and PRN Atarax 12. Code Status: Full 13. DVT Prophylaxis: Heparin Current living situation: Home Expected Disposition: Home Estimated discharge date: 06/28/2021 Chief Complaint: Seizure secondary to alcohol withdrawal, acute hypoxic respiratory failure History of Present Illness: Yonathan Fernandez is a 46 y.o. male with a history of alcohol abuse with history of withdrawal seizures, CAD who presented to [facility] 06/24/2021 after being found by his mother seizing secondary to alcohol withdrawal. In the ED, patient noted to be hypothermic (85.7) and was intubated for airway protection. The patient was admitted to the CCU and administered ATBs, Keppra, and supportive care. Extubated on 06/26/2021 and transferred to [facility] unit on 06/27/2021. [facility] was asked to take over medical management ROS: Unable to perform a complete review of systems due to Metabolic encephalopathy Past Medical, Surgical, Social, Family History: Past Medical History: Diagnosis Date Alcohol abuse Fall 11/16/2020 Hyperlipidemia Hypertension Myocardial infarct (HCC) Seizures (HCC) Past Surgical History: Procedure Laterality Date arm surgery CORONARY ANGIOPLASTY WITH STENT PLACEMENT CORONARY ANGIOPLASTY WITH STENT PLACEMENT HERNIA REPAIR TONSILLECTOMY VASECTOMY Social History Socioeconomic History Marital status: Single Spouse name: Not on file Number of children: Not on file Years of education: Not on file Highest education level: Not on file Occupational History Not on file Tobacco Use Smoking status: Current Every Day Smoker Packs/day: 1.00 Years: 20.00 Pack years: 20.00 Types: Cigarettes Smokeless tobacco: Never Used Vaping Use Vaping Use: Never used Substance and Sexual Activity Alcohol use: Yes Comment: 6 Drug use: No Sexual activity: Yes Partners: Female control/protection: Surgical Other Topics Concern Not on file Social History Narrative Not on file Social Determinants of Health Financial Resource Strain: Low Risk Difficulty of Paying Living Expenses: Not hard at all Food Insecurity: Unknown Worried About Running Out of Food in the Last Year: Never true Ran Out of Food in the Last Year: Not on file Transportation Needs: Unknown Lack of Transportation (Medical): No Lack of Transportation (Non-Medical): Not on file Physical Activity: Unknown Days of Exercise per Week: 0 days Minutes of Exercise per Session: Not on file Stress: No Stress Concern Present Feeling of Stress : Not at all Social Connections: Unknown Frequency of Communication with Friends and Family: Not on file Frequency of Social Gatherings with Friends and Family: Not on file Attends Evangelical Services: Not on file Active Member of Clubs or Organizations: No Attends Club or Organization Meetings: Not on file Marital Status: Not on file Intimate Partner Violence: Unknown Fear of Current or Ex-Partner: No Emotionally Abused: Not on file Physically Abused: Not on file Sexually Abused: Not on file Family History Problem Relation Age of Onset Diabetes Maternal Grandfather Home Medications: No current facility-administered medications on file prior to encounter. Current Outpatient Medications on File Prior to Encounter Medication Sig Dispense Refill acetaminophen (TYLENOL) 500 MG tablet Take 1 tablet by mouth every 6 hours as needed for Pain. 30 tablet 0 albuterol 108 (90 Base) MCG/ACT inhaler INHALE 2 PUFFS INTO THE LUNGS EVERY 4 HOURS NEEDED FOR WHEEZING AND/OR SHORTNESS OF BREATH. 18 g 4 amitriptyline (ELAVIL) 75 MG tablet TAKE 1 TABLET BY MOUTH NIGHTLY. 30 tablet 6 aspirin EC (ECOTRIN LOW STRENGTH) 81 MG EC tablet Take 1 tablet by mouth daily. 30 tablet 1 atorvastatin (LIPITOR) 80 MG tablet TAKE 1 TABLET BY MOUTH NIGHTLY. 30 tablet 11 Blood Pressure Monitoring (BLOOD PRESSURE CUFF) MISC Use PRN 1 each 0 clopidogrel (PLAVIX) 75 MG tablet TAKE 1 TABLET BY MOUTH DAILY. 30 tablet 2 folic acid (FOLVITE) 1 MG tablet Take 1 tablet by mouth daily. 30 tablet 1 gabapentin (NEURONTIN) 300 MG capsule TAKE 1 CAPSULE BY MOUTH 3 TIMES DAILY. 90 capsule 2 hydrOXYzine (ATARAX) 50 MG tablet Take 1 tablet by mouth every 6 hours as needed for Anxiety (for MILD anxiety- patient reported anxiety 1-4). 30 tablet 0 levETIRAcetam (KEPPRA) 750 MG tablet Take 1 tablet by mouth two times a day. 60 tablet 2 lisinopril-hydrochlorothiazide (PRINZIDE,ZESTORETIC) 20-12.5 MG per tablet Take 2 tablets by mouth daily. 60 tablet 2 Magnesium Oxide (MAG-OX) 400 (241.3 Mg) MG tablet Take 1 tablet by mouth daily. 30 tablet 2 Metoprolol Tartrate (LOPRESSOR) 25 MG tablet TAKE 1 TABLET BY MOUTH TWO TIMES A DAY. 60 tablet 2 pantoprazole (PROTONIX) 40 MG tablet TAKE 1 TABLET BY MOUTH DAILY. 30 tablet 2 sildenafil (VIAGRA) 100 MG tablet Take 1 tablet by mouth daily as needed. 30 tablet 6 Thiamine HCl (B-1) 100 MG TABS TAKE 1 TABLET BY MOUTH DAILY. 30 tablet 2 No Known Allergies Physical Exam: Visit Vitals BP (!) 135/95 Pulse 90 Temp 97.4 F (36.3 C) (Axillary) Resp 22 Wt 57.2 kg (126 lb 1.7 oz) SpO2 100% BMI 21.65 kg/m General: NAD, chronically ill-appearing, thin Eyes: EOMI ENT: neck supple Cardiovascular: Regular rate. Respiratory: Clear to auscultation Gastrointestinal: Soft, non tender Genitourinary: no suprapubic tenderness Musculoskeletal: No edema Skin: warm, dry Neuro: Drowsy, slurred speech, cooperative. Oriented to self only Psych: Mood appropriate. Labs, Imaging, and Studies reviewed: Recent Labs Lab 06/27/21 0450 06/26/21 0450 06/25/21 0445 HGB 9.9* 8.7* 10.0* HCT 29.5* 26.0* 28.4* PLT 141.0* 146.0* 185.0 Recent Labs Lab 06/27/21 0450 06/27/21 0039 06/26/21 1814 06/26/21 0644 06/26/21 0450 06/25/21 2347 06/25/21 1815 06/25/21 0950 06/25/21 0445 06/24/21 1753 06/24/21 1753 NA 140 140 141 < > 143 < > 140 < > 139 < > 134* K 4.6 3.9 3.3* < > 3.7 < > 2.8* < > 1.7* < > 4.4 CL 110* 109 111* < > 117* < > 114* < > 108 < > 97 BUN 5* 5* 6* < > 9 < > 11 < > 15 < > 17 CREATININE 0.41* 0.43* 0.51* < > 0.65* < > 0.72 < > 0.72 < > 0.61* CALCIUM 7.5* 7.2* 7.0* < > 6.5* < > 6.2* < > 6.4* < > 8.2* LABALBU -- -- -- -- -- -- 2.3* -- -- -- 4.0 PHOS 2.1* -- -- -- 3.3 -- -- -- 6.2* < > 5.4* < > = values in this interval not displayed. Recent Labs Lab 06/25/21181406/24/21 1753 ALT 67* 85* AST 103* 188* ALKPHOS 85 124 BILITOT 1.6 2.6* No results for input(s): INR in the last 168 hours. Associated attestation - Araceli Mcbride MD - 06/27/2021 6:54 PM EST [facility] HOSPITALIST SERVICE ATTENDING PHYSICIAN ATTESTATION NOTE I have personally seen and examined the patient earlier independently of GENE Howell-CHUCK provider, and have personally discussed the case with the provider. I agree with the history, examination,assessment, and plan, except as documented below: Date Of Service: 06/27/2021 Pertinent History/ Edit: Pt was interviewed and examined at bedside with all appropriate PPE during COVID-19 Pandemic 38-year-old male patient with alcohol abuse and dependence and history of alcohol withdrawal seizures who was admitted to CCU after being found by mother with seizures. Also patient admitted to [facility] and required Narcan. Hypothermic on arrival and intubated for airway protection and admittedto CCU. Extubated on 06/26/2021 and transferred out of ICU to [facility] service Remains confused and unable to give any history ROS: Total of 14 systems were reviewed & beside the pertinence given above the remainder is negative. Physical exam: weight is 57.2 kg (126 lb 1.7 oz). His forehead temperature is 98.4 F (36.9 C). His blood pressureis 138/88 and his pulse is 101. His respiration is 14 and oxygen saturation is 98%. General: NAD Eyes: EOMI ENT: neck supple Cardiovascular: Regular rate. Respiratory: Clear to auscultation Gastrointestinal: Soft, non tender Genitourinary: no suprapubic tenderness Musculoskeletal: No edema Skin: warm, dry Neuro: Alert. Psych: Mood appropriate. Assessment/Plan: Alcohol withdrawal seizures: Started on scheduled Librium and CIWA protocol. Unclear with the patient has a unrelated seizure disorder or not but he appears to be on Keppra at home. Therefore this has been continued. Metabolic encephalopathy: Remains confused. CT brain negative. Started on D5 infusion given ongoinghypoglycemia. Acute hypoxic respiratory failure: Patient was intubated for airway protection and has been extubated since then on 06/26/2021 Mild Transaminitis: Likely due to chronic alcoholic hepatitis. Suspected aspiration pneumonia: Started on Augmentin in ICU which was continued. Please refer to detailed H&P of JAQUELINE for other chronic medical problems and management. The chart has been reviewed in its entirety by me personally, including relevant previous visits/notes, radiographic studies, EKG, laboratory results and microbiology/pathology results and compared with any previous existing studies as needed. Signed: Araceli Mcbride MD * Francesca Carranza RD,ISSA - 06/25/2021 9:42 AM EST Associated Order(s): IP CONSULT TO DIETITIAN; IP CONSULT TO DIETITIAN Consult received to manage TF. If unable to extubate, recommend start trickle feeds of following: Vital HP at 15 ml/hr, standard water flush 50 ml q4h This will provide 360 kcal (693 kcal with propofol), 32 g protein, 601 ml free water with flushes Thank you for the consult, will follow documented in this [facility]01-26-2022 History and physical note* Joseph Guerrero MD - 06/24/2021 10:12 PM EST Images from the original note were not included. CCU H&P note 06/24/2021 10:20 PM Assessment: 1. Acute alcohol withdrawal 2. Seizure 3. Acute hypoxic respiratory failure 4. Lactic acidosis 5. Hypothermia Plan: Current vent settings: VC-TV = 450, rate = 12, PEEP = 5, FiO2 =50% Wean FiO2 as tolerated maintain sats 88-92% Regular neuro checks. Patient on low-dose propofol for prevention of further seizures Once patient able to be extubated, will order CIWA protocol and as needed Ativan CT head obtained, no traumatic injury Continue antibiotics for now given likely aspiration during seizure activity Started on Keppra Continue home amitriptyline Trend lactic acid until <2 GI prophylaxis: PPI DVT Prophylaxis with heparin subQ every 12 hours Nutrition: NPO Code Status: Full code The entirety of the above assessment and plan was reviewed, verified, and amended on this date 06/24/2021 ([facility]) Plan of care discussed with nursing/staff. CC: Found down, seizures HPI: Patient is a 46-year-old male with past medical history of severe alcohol abuse and a history of withdrawal related seizures. Patient's mother attempted to contact him but was unable to, so she went to his house and found him on the floor actively seizing. EMS was called and they were able to breakseizure in route to the ED. Unclear downtime. On arrival to the ED, patient was not seizing but altered so he was intubated for airway protection. Patient was made to CCU for vent management Past Medical History: Diagnosis Date Alcohol abuse Fall 11/16/2020 Hyperlipidemia Hypertension Myocardial infarct (HCC) Seizures (HCC) Past Surgical History: Procedure Laterality Date arm surgery CORONARY ANGIOPLASTY WITH STENT PLACEMENT CORONARY ANGIOPLASTY WITH STENT PLACEMENT HERNIA REPAIR TONSILLECTOMY VASECTOMY Family History Problem Relation Age of Onset Diabetes Maternal Grandfather Social History Tobacco Use Smoking status: Current Every Day Smoker Packs/day: 1.00 Years: 20.00 Pack years: 20.00 Types: Cigarettes Smokeless tobacco: Never Used Vaping Use Vaping Use: Never used Substance Use Topics Alcohol use: Yes Comment: 6 Drug use: No No Known Allergies ROS unable to be obtained due to intubation and sedation No current facility-administered medications on file prior to encounter. Current Outpatient Medications on File Prior to Encounter Medication Sig Dispense Refill acetaminophen (TYLENOL) 500 MG tablet Take 1 tablet by mouth every 6 hours as needed for Pain. 30 tablet 0 albuterol 108 (90 Base) MCG/ACT inhaler INHALE 2 PUFFS INTO THE LUNGS EVERY 4 HOURS NEEDED FOR WHEEZING AND/OR SHORTNESS OF BREATH. 18 g 4 amitriptyline (ELAVIL) 75 MG tablet TAKE 1 TABLET BY MOUTH NIGHTLY. 30 tablet 6 aspirin EC (ECOTRIN LOW STRENGTH) 81 MG EC tablet Take 1 tablet by mouth daily. 30 tablet 1 atorvastatin (LIPITOR) 80 MG tablet TAKE 1 TABLET BY MOUTH NIGHTLY. 30 tablet 11 Blood Pressure Monitoring (BLOOD PRESSURE CUFF) MISC Use PRN 1 each 0 clopidogrel (PLAVIX) 75 MG tablet TAKE 1 TABLET BY MOUTH DAILY. 30 tablet 2 folic acid (FOLVITE) 1 MG tablet Take 1 tablet by mouth daily. 30 tablet 1 gabapentin (NEURONTIN) 300 MG capsule TAKE 1 CAPSULE BY MOUTH 3 TIMES DAILY. 90 capsule 2 hydrOXYzine (ATARAX) 50 MG tablet Take 1 tablet by mouth every 6 hours as needed for Anxiety (for MILD anxiety- patient reported anxiety 1-4). 30 tablet 0 levETIRAcetam (KEPPRA) 750 MG tablet Take 1 tablet by mouth two times a day. 60 tablet 2 lisinopril-hydrochlorothiazide (PRINZIDE,ZESTORETIC) 20-12.5 MG per tablet Take 2 tablets by mouth daily. 60 tablet 2 Magnesium Oxide (MAG-OX) 400 (241.3 Mg) MG tablet Take 1 tablet by mouth daily. 30 tablet 2 Metoprolol Tartrate (LOPRESSOR) 25 MG tablet TAKE 1 TABLET BY MOUTH TWO TIMES A DAY. 60 tablet 2 pantoprazole (PROTONIX) 40 MG tablet TAKE 1 TABLET BY MOUTH DAILY. 30 tablet 2 sildenafil (VIAGRA) 100 MG tablet Take 1 tablet by mouth daily as needed. 30 tablet 6 Thiamine HCl (B-1) 100 MG TABS TAKE 1 TABLET BY MOUTH DAILY. 30 tablet 2 Objective: Vital signs for last 24 hours: Temp: [85.1 F (29.5 C)-90.8 F (32.7 C)] 90.8 F (32.7 C) Heart Rate: [65-124] 84 Resp: [11-27] 15 BP: (99-180)/(74-131) 125/77 FiO2 (%) Ordered: [50 %-65 %] 50 % Vent settings for last 24 hours: FiO2 (%) Ordered: [50 %-65 %] 50 % S RR: [12] 12 S VT: [450 mL] 450 mL Hemodynamic parameters for last 24 hours: Intake/Output last 3 shifts: No intake/output data recorded. Physical Exam: Visit Vitals BP 125/77 Pulse 84 Temp (!) 90.8 F (32.7 C) (Rectal) Resp 15 Wt 70.3 kg (155 lb) SpO2 100% BMI 26.61 kg/m All Active Lines: Patient Circulatory Lines Status Active PICC Line / CVC Line / PIV Line / Intraosseous Line / Epidural Line / ART Line / Line / Tunneled CVC / Port Name Placement date Placement time Site Days CVC Triple Lumen 06/24/21 Right Internal jugular 7 06/24/21 1825 Internal jugular less than 1 Peripheral IV 06/24/21 06/24/21 Right Forearm 18 G 06/24/21 1750 -- less than 1 Peripheral IV 06/24/21 Right Forearm 20 G 06/24/21 1758 -- less than 1 Central Lines & Foleys with Indications of Use: General Appearance: Intubated, unresponsive, no distress, appears stated age HEENT: Normocephalic, atraumatic, pupils equal bilaterally, nasal mucosa normal without drainage, oral mucosa normal Neck: Supple, trachea midline, no JVD Lungs: Clear to auscultation bilaterally, respirations unlabored Chest wall: No crepitus or deformity, symmetrical chest rise Heart: Regular rate and rhythm, S1 and S2 normal, no murmur Abdomen: Soft, non-distended, bowel sounds active, no masses Genitalia: deferred Rectal: deferred Extremities: Extremities normal, atraumatic, no cyanosis or edema, 2+ pulses in all extremities Skin: Skin color, texture, turgor normal, no rashes or lesions Lymph nodes: Cervical, supraclavicular nodes normal Neurologic: Unresponsive on low-dose propofol pupillary reflexes intact. Cough reflex intact The entirety of the above exam has been performed on this date 06/24/2021, has been reviewed, verified, and amended accordingly. ([facility]) Diagnostic studies: Labs and radiographic studies personally reviewed CXR: Results for orders placed during the hospital encounter of 06/24/21 XR CHEST 1 VIEW 06/24/2021 Impression Endotracheal tube tip is 3 cm from yevgeniy. Lungs are clear. No pneumothorax. Lab Results Component Value Date WHITEBLOODCE 16.1 (H) 06/24/2021 HGB 13.2 06/24/2021 HCT 38.8 06/24/2021 MCV 103.2 (H) 06/24/2021 PLT 188.0 06/24/2021 Lab Results Component Value Date CREATININE 0.61 (L) 06/24/2021 BUN 17 06/24/2021 NA 134 (L) 06/24/2021 K 4.4 06/24/2021 CL 97 06/24/2021 CO2 17 (L) 06/24/2021 Lab Results Component Value Date INR 1.04 11/16/2020 INR 0.94 09/21/2020 INR 1.03 05/14/2019 Critical Care Time: 1 Hour 15 Minutes separate of procedures Joseph Guerrero MD documented in this [facility]01-26-2022 Emergency department Note* Loyda Medina RN - 06/24/2021 9:49 PM EST Report to Richie VALENCIA in CCU * Loyda Medina RN - 06/24/2021 9:29 PM EST Lab contacted about covid result. Lab states they never received. Will collect and send * Fallon Hanson MST - 06/24/2021 9:28 PM EST [id number] * Fallon Hanson MST - 06/24/2021 9:26 PM EST Bed req * Loyda Medina RN - 06/24/2021 9:14 PM EST Patient resting on ED cot with bare hugger with temp sensing griffin in place for warming protocols. No acute distress noted. Respirations are maintained via ventilator. Multiple abrasions noted to extremities. Awaiting admission orders on CCU. Will continue to monitor. IV infusions running - propofol 10mcg/kg/min - Vancomycin - Warmed 0.9 NaCl 125mL/hr * Loyda Medina RN - 06/24/2021 8:54 PM EST Updated mother at this time. Mother states to not give sister information. Mother requests updates update once patient is taken to CCU * Fallon Hanson MST - 06/24/2021 8:28 PM EST Sister Destiney would like pt to contact her [phone] * Fallon Hanson MST - 06/24/2021 8:28 PM EST Sister Destiney would like pt to contact her [phone] * Loyda Medina RN - 06/24/2021 8:05 PM EST Critical lab value lactate 12.[address] Thompson * Loyda Medina RN - 06/24/2021 7:53 PM EST Pt to CT * Loyda Medina RN - 06/24/2021 7:48 PM EST Rectal temp 86.7 from temp sensing griffin * Loyda Medina RN - 06/24/2021 7:24 PM EST X-ray at bedside * Loyda Medina RN - 06/24/2021 7:14 PM EST Report from Melanie VALENCIA * Deuce Thompson MD - 06/24/2021 6:38 PM EST Associated Order(s): Central Line; Intubation; Critical Care Images from the original note were not included. ED Diagnosis and Summary 1. Hypothermia, initial encounter 2. Alcohol withdrawal syndrome, with delirium (HCC) 3. Other specified hypotension 4. Elevated lactic acid level 5. Leukocytosis, unspecified type ED Summary Assessment: 46 y.o. male who was seen and evaluated for altered mental status. DDx: alcohol withdrawal, hypothermia, rhabdomyolysis, CVA, TIA, sepsis, cystitis, pneumonia, covid 19, skull fracture, cervical spine fracture, liver laceration, spleen laceration, thoracic or lumbarspine fracture, seizure Plan: labs, imaging, symptom control Reviewed pertinent results including: Labs: Available labs reviewed. ECG: Reviewed Imaging: CT Reformatted Lumbar Spine Final Result 1. CT lumbar spine shows no severe malalignment or compression fracture or bony lesion. 2. Moderate chronic and degenerative changes as discussed at each level. CT Reformatted Thoracic Spine Final Result The endotracheal tube projects just above the yevgeniy. This could be retracted 2 to 3 cm. The enteric tube tents the wall of the stomach. This can be retracted 4 to 5 cm. No acute traumatic abnormality. Specifically, no mediastinal hematoma, displaced rib fracture, pneumothorax. No acute solid organ abnormality. Diverticulosis, with wall thickening involving the sigmoid colon suggesting chronic low-grade inflammatory change. No bowel obstruction or free air. No acute fracture. Additional nonacute findings, as described above. CT Chest / Abdomen / Pelvis With IV Contrast ONLY - TRAUMA Final Result The endotracheal tube projects just above the yevgeniy. This could be retracted 2 to 3 cm. The enteric tube tents the wall of the stomach. This can be retracted 4 to 5 cm. No acute traumatic abnormality. Specifically, no mediastinal hematoma, displaced rib fracture, pneumothorax. No acute solid organ abnormality. Diverticulosis, with wall thickening involving the sigmoid colon suggesting chronic low-grade inflammatory change. No bowel obstruction or free air. No acute fracture. Additional nonacute findings, as described above. CT Cervical Spine Without IV Contrast Final Result 1. CT cervical spine shows no evidence of fracture or severe malalignment. 2. Reversal of the normal cervical lordosis indicating muscle spasming. 3. Moderate degenerative changes most noted at the level C5-C6 and C6-C7. CT Head Without Contrast Final Result 1. Nonacute CT scan of the head. 2. Moderate to prominent chronic and degenerative changes especially in for a patient of this age. If there is concern for an acute ischemic event recommend follow-up with MRI for further review. XR Knee Right 1 or 2 Views Final Result 1. Nonacute two-view right knee. 2. No gross or advanced degenerative changes noted. XR Chest 1 View Final Result Endotracheal tube tip is 3 cm from yevgeniy. Lungs are clear. No pneumothorax. Pertinent chart review performed including recent visits, laboratory testing, procedures, and imaging if applicable. ED Course: I will monitor this patient closely while in the Emergency Department. Due to unresponsiveness, gurgling respirations, the patient was intubated for airway protection. I will continue to monitor this patient closely. The patient's rectal temperature was 85.1. Bare Hugger initiated along with warm fluids for rewarming. Orders placed including CT head. Will continue to monitor closely. Returned to reassess the patient. Severe hypotension noted, no blood pressure obtainable. Phenylephrine given. I will continue to monitor this patient closely. The patient remained hypotensive in the immediate period following the phenylephrine administration. Central line was placed and levophed started. I will continue to monitor this patient closely. The patient's profound hypotension resolved and levophed was discontinued. Will continue to monitorclosely. Propofol for sedation started. I will continue to monitor this patient closely. CXR reviewed. ETT is appropriately placed, no evidence of pneumothorax. Central line is appropriately placed. OG tube appears to be located in the stomach. I will continue to monitor this patient closely. Vancomycin, cefepime, blood cultures, IV fluids ordered empirically. Covid test ordered. Will continue to monitor closely. Discussed with the patient's mother who lives with the patient. The patient lives in the basement. She has not seen him in 2 days. She went to check on him today because she could not reach him by phone and found him apparently having a seizure. She reports that the patient does not use drugs. She reports that he does drink alcohol daily and she thinks his last drink might have been 2 days ago. Discussed the patient's current condition with his mother. Will continue to monitor closely. Additional imaging ordered in case of traumatic cause of the patient's condition. I will continue to monitor this patient closely. Discussed with Dr. Blanchard in the ICU. The patient will have imaging obtained prior to going to theICU. CT imaging reviewed. No acute traumatic injury. Updated the outside upholsterer custom van converter at [phone]. Requested RT to retract ETT by 2cm per radiology recommendations. Requested ED nursing staff to retract the enteric tube by 4-5cm per radiology recommendations. I will continue to monitor the patient's condition closely prior to their departure from the Emergency Department. Impression: 46 y.o. with 1. Hypothermia, initial encounter 2. Alcohol withdrawal syndrome, with delirium (HCC) 3. Other specified hypotension 4. Elevated lactic acid level 5. Leukocytosis, unspecified type Disposition: Admitted Intubation Date/Time: 06/24/2021 6:39 PM Performed by: Deuce Thompson MD Authorized by: Deuce Thompson MD Consent: Consent obtained: Emergent situation Pre-procedure details: Patient status: Altered mental status Pretreatment meds: etomidate. Paralytics: Rocuronium Procedure details: Preoxygenation: Bag valve mask Intubation method: Oral Oral intubation technique: Direct Laryngoscope blade: Mac 3 Tube size (mm): 8.0 Tube type: Cuffed Number of attempts: 1 Tube visualized through cords: yes Placement assessment: ETT to lip: 25 Tube secured with: ETT cornell Breath sounds: Equal and absent over the epigastrium Placement verification: chest rise, CXR verification and ETCO2 detector CXR findings: ETT in proper place Post-procedure details: Patient tolerance of procedure: Tolerated well, no immediate complications Central Line Date/Time: 06/24/2021 6:40 PM Performed by: Deuce Thompson MD Authorized by: Deuce Thompson MD Consent: Consent obtained: Emergent situation Pre-procedure details: Hand hygiene: Hand hygiene performed prior to insertion Sterile barrier technique: All elements of maximal sterile technique followed Skin preparation: ChloraPrep Skin preparation agent: Skin preparation agent completely dried prior to procedure Anesthesia (see MAR for exact dosages): Anesthesia method: None Procedure details: Location: R internal jugular Procedural supplies: Triple lumen Landmarks identified: yes Ultrasound guidance: yes Sterile ultrasound techniques: Sterile gel and sterile probe covers were used Number of attempts: 1 Successful placement: yes Post-procedure details: Post-procedure: Line sutured (dressing applied by ED nursing staff) Assessment: Blood return through all ports, free fluid flow, no pneumothorax on x-ray and placementverified by x-ray Patient tolerance of procedure: Tolerated well, no immediate complications Critical Care Performed by: Deuce Thompson MD Authorized by: Deuce Thompson MD Critical care provider statement: Critical care time (minutes): 100 Critical care time was exclusive of: Separately billable procedures and treating other patients andteaching time Critical care was necessary to treat or prevent imminent or life-threatening deterioration of the following conditions: Respiratory failure and sepsis Critical care was time spent personally by me on the following activities: Ordering and review of laboratory studies, ordering and review of radiographic studies, re-evaluation of patient's condition, obtaining history from patient or surrogate, examination of patient, evaluation of patient's response to treatment, discussions with consultants and development of treatment plan with patient or surrogate I assumed direction of critical care for this patient from another provider in my specialty: no History Chief Complaint Patient presents with Seizures Altered Mental Status Past Medical, Family, Social, and or Surgical history in nursing notes, reviewed and included. HPI This patient is a 46 y.o. male with history of alcohol abuse, alcohol withdrawal, hypokalemia, CAD,seizure disorder, HTN, HLD, who presents with chief complaint of altered mental status, concern forseizure. The patient presents moaning with gurgling respirations. He is noted to have bruises of various stages of healing to his extremities. Pupils are 2mm, equal, minimally reactive to light. Per report the patient was found by his mother having a seizure. The patient has a history of alcohol abuse. The patient will be intubated for airway protection. Further history and ROS limited by acuity of condition. Review of Systems Unable to perform ROS: Acuity of condition Physical Examination Vitals ED Triage Vitals BP 06/24/21 1747 117/85 Heart Rate 06/24/21 1747 124 Resp 06/24/21 1747 26 Temp 06/24/21 1747 (!) 85.1 F (29.5 C) Temp Source 06/24/21 1747 Rectal SpO2 06/24/21 1755 100 % Weight 06/24/21 174 155 lb (70.3 kg) Height -- BMI (Calculated) -- Physical Exam Vitals and nursing note reviewed. Constitutional: General: He is in acute distress. Appearance: He is ill-appearing and toxic-appearing. HENT: Head: Normocephalic and atraumatic. Nose: Nose normal. No rhinorrhea. Mouth/Throat: Mouth: Mucous membranes are moist. Eyes: General: Right eye: No discharge. Left eye: No discharge. Pupils: Pupils are equal, round, and reactive to light. Cardiovascular: Rate and Rhythm: Tachycardia present. Pulmonary: Effort: Pulmonary effort is normal. No respiratory distress. Breath sounds: Normal breath sounds. No stridor. No wheezing, rhonchi or rales. Abdominal: General: Abdomen is flat. There is no distension. Musculoskeletal: General: Signs of injury present. Cervical back: No rigidity. Skin: Coloration: Skin is pale. Findings: Bruising and erythema present. Comments: Cool to touch Neurological: Mental Status: He is disoriented and unresponsive. GCS: GCS eye subscore is 4. GCS verbal subscore is 2. GCS motor subscore is 4. Comments: Gurgling respirations Psychiatric: Mood and Affect: Mood normal. Behavior: Behavior normal. Thought Content: Thought content normal. Judgment: Judgment normal. This note was constructed and dictated with the use of the [employer] voice recognition software program which may omit or change portions of the dictation, and/or substitute, homonyms and thereby alter the original intent of the dictated statement. Unintended gender changes may also be incorporated due to misinterpretation of the spoken words. Deuce Thompson MD 06/24/212151 * Melanie Baker RN - 06/24/2021 6:17 PM EST Levo gtt paused for hypertension * Melanie Baker RN - 06/24/2021 6:08 PM EST Manual BP 80/palp per Yamilex RN * Melanie Baker RN - 06/24/2021 6:07 PM EST Manual BP 55/palp per Yamilex RN * Melanie Baker RN - 06/24/2021 6:06 PM EST Manual BP 45/palp per Yamilex VALENCIA * Melanie Baker RN - 06/24/2021 5:51 PM EST Multiple abrasions and bruising to both knees and lower legs, elbows and small lac noted to left eye brow area * Melanie Baker RN - 06/24/2021 5:43 PM EST Per EMS, pt had a seizure at [facility], direct care professional found him unresponsive, fell and hit his head. EMS asked if pt had done any drugs, pt admits to heroin use. Pt was given narcan per EMS with minimal effect. Pt eyes glassy, non purposeful movements noted, not following commands, moaning * Katie Hernández RN - 06/24/2021 5:41 PM EST Bed: 12 [facility] Expected date: 06/24/21 Expected time: 5:33 PM Means of arrival: [employer] Comments: Seizure, GCS 13 documented in this [facility]09-26-2021 History of Present illness Narrative* Flip Herrera RN - 02/22/2021 6:48 PM EDT Patient leaving in cab w/ hospital cab voucher at this time. * Flip Herrera RN - 02/22/2021 6:30 PM EDT Written and verbal discharge instructions given to patient at this time including f/u apointments, where to hot die picker scripts and when to call doctor/911; no further questions. * Flip Herrera RN - 02/22/2021 6:03 PM EDT Walker delivered to pt, this RN called haylee ayala to be at hospital at 1830 for hot die picker. * Flip Herrera RN - 02/22/2021 3:57 PM EDT Spoke to Dr. Ariza, pt ok do d/c tonight after evening dose of meds including magnesium; pt willneed front wheeled walker delivered to hospital and cab voucher for transport; this RN to call assistant director of security to arrange. * Areli Ariza DO - 02/22/2021 10:54 AM EDT [facility] Medicine / [facility] Inpatient Progress Note 02/22/2021 Yonathan Tai Slick 1975 [id number] Assessment/Plan: Yonathantaisha Fernandez is a 45 y.o. male with a history of coronary artery disease, seizure disorder, extensive alcohol abuse who presented to [facility] 02/16/2021 via EMS as patient has been crawling around on hisfloor for past 3 days. On presentation, patient to be in alcoholic ketoacidosis with ketones greater than 9, bicarb 10, anion gap 31. XR b/l knees unremarkable. CTH non acute. 1. Alcoholic ketoacidosis: Visual hallucinations, disorientation, confusion, verbally combative; ketones greater than 9, bicarb 10, anion gap 31; banana bag containing thiamine, MVI, folic acid administered in ED;. S/p IVF. Daily labs. Resolved with ivf stopped. 02/20/21 2. Acute kidney injury: Creatinine 1.82, baseline roughly 0.6; IV hydration, avoid nephrotoxic agents. Resolved. 3. Hypokalemia/Hypomagnesia: Potassium 3.3 on presentation; IV supplementation in ED, electrolyte placement protocol, telemetry. Monitoring and replacing lytes aggressively. Improved overall. Will send home on some po mag. Renal Panel 5-7 days. 4. Acute Rhabdomyolysis: crawling around on his floor for past 3 days. CPK 3.4K on admit. IVF. Trend with repeat 02/19/21 with improvement. 5. Alcohol abuse: History of drinking 24 30 beers a daily; CIWA protocol, daily MVI, folate, thiamine supplementation; inpatient consultation to social media designer. Started on scheduled phenobarb taper with prn ativan via ciwa. Improved and will complete taper inpt. Not interested in rehab. Cessation counseled. 6. Coronary artery disease: s/p PCI to pRCA and dRCA in 04/2019, continue ASA, Plavix, Lipitor, Lopressor 7. Transaminitis: Likely due to etoh use. Monitored while on phenobarb taper. Outpt f/u 8. Essential hypertension: Titrate antihypertensives. Stable 02/20/21 9. History of seizures: Seizure precautions, continue Keppra regimen, prn ativan. 10. Tobacco abuse: Will need tobacco counseling more awake and alert; nicotine placement therapy ordered 11. Code Status: Full code 12. DVT Prophylaxis: lovenox Current living situation: Home Expected Disposition: PT/OT pending Estimated discharge date: once taper complete, lytes stable, and PT/OT evaluates Subjective: Patient , seen and examined with labs/vitals/imaging biometrics consultant notes reviewed and summarized abovein the assessment and plan. Denies cp, sob, n/v/c/f, abd pain GI or issues. Denied new neuro changes including dizziness, lightheadedness, ROB, focal weakness, numbness, tingling. Will complete phenobarb taper. Waiting for PT/OT to evaluate. Physical Exam: Visit Vitals BP 128/78 (Patient Position: Lying) Pulse 83 Temp 97.8 F (36.6 C) (Axillary) Resp 18 Ht 5' 4 (1.626 m) Wt 59.3 kg (130 lb 11.2 oz) SpO2 96% BMI 22.43 kg/m General: NAD Cardiovascular: Regular rate. Respiratory: normal effort and rate Gastrointestinal: Soft, non tender Genitourinary: no suprapubic tenderness Musculoskeletal: No edema. Skin: warm, dry Neuro: alert Psych: Mood appropriate. Current Medications: aspirin EC 81 mg Oral Daily atorvastatin 80 mg Oral Nightly clopidogrel 75 mg Oral Daily enoxaparin 40 mg Subcutaneous Daily folic acid 1 mg Oral Daily gabapentin 300 mg Oral 3x Daily levETIRAcetam 500 mg Oral 2x Daily Magnesium Oxide 800 mg Oral 2x Daily Metoprolol Tartrate 25 mg Oral 2x Daily nicotine 21 mg Transdermal Daily pantoprazole 40 mg Oral Daily before dinner PHENobarbital 30 mg Oral Q6H Thiamine Mononitrate 100 mg Oral Daily vitamin B-12 1,000 mcg Oral Daily Labs, Imaging and Studies reviewed: Recent Labs Lab 02/17/2152302/16/212050 HGB 10.2* 11.9* HCT 31.2* 36.6* PLT 121.0* 134.0* Recent Labs Lab 02/22/2171902/21/21 0745 02/20/21 1132 02/20/21 0548 02/20/21 0548 02/17/21 0852 02/17/21 0331 02/16/21205002/16/212050 NA 135 137 -- -- 135 < > 143 < > 140 K 3.8 4.1 3.7 < > 3.2* < > 3.0* < > 3.3* CL 105 106 -- -- 107 < > 103 < > 99 BUN 7* 6* -- -- 4* < > 39* < > 41* CREATININE 0.56* 0.54* -- -- 0.50* < > 1.07 < > 1.82* CALCIUM 9.1 9.2 -- -- 8.4 < > 8.6 < > 9.6 LABALBU 3.8 4.1 -- -- 3.3* -- 4.0 < > 5.0 PHOS -- -- -- -- -- -- 3.4 -- 5.6* < > = values in this interval not displayed. Recent Labs Lab 02/22/2171902/21/21 0745 02/20/21 0548 ALT 62* 71* 47 AST 77* 126* 85* ALKPHOS 144* 171* 116 BILITOT 0.5 0.6 0.7 No results for input(s): INR in the last 168 hours. * Areli Ariza DO - 02/21/2021 12:02 PM EDT [facility] Medicine / [facility] Inpatient Progress Note 02/21/2021 Yonathan Fernandez 1975 [id number] Assessment/Plan: Yonathan Fernandez is a 45 y.o. male with a history of coronary artery disease, seizure disorder, extensive alcohol abuse who presented to [facility] 02/16/2021 via EMS as patient has been crawling around on hisfloor for past 3 days. On presentation, patient to be in alcoholic ketoacidosis with ketones greater than 9, bicarb 10, anion gap 31. XR b/l knees unremarkable. CTH non acute. 1. Alcoholic ketoacidosis: Visual hallucinations, disorientation, confusion, verbally combative; ketones greater than 9, bicarb 10, anion gap 31; banana bag containing thiamine, MVI, folic acid administered in ED;. S/p IVF. Daily labs. Resolved with ivf stopped. 02/20/21 2. Acute kidney injury: Creatinine 1.82, baseline roughly 0.6; IV hydration, avoid nephrotoxic agents. Resolved. 3. Hypokalemia/Hypomagnesia: Potassium 3.3 on presentation; IV supplementation in ED, electrolyte placement protocol, telemetry. Monitoring and replacing lytes aggressively. Improved overall. 4. Acute Rhabdomyolysis: crawling around on his floor for past 3 days. CPK 3.4K on admit. IVF. Trend with repeat 02/19/21 with improvement. 5. Alcohol abuse: History of drinking 24 30 beers a daily; CIWA protocol, daily MVI, folate, thiamine supplementation; inpatient consultation to social media designer. Started on scheduled phenobarb taper with prn ativan via ciwa. Improved and will complete taper inpt. Not interested in rehab. Cessation counseled. 6. Coronary artery disease: s/p PCI to pRCA and dRCA in 04/2019, continue ASA, Plavix, Lipitor, Lopressor 7. Essential hypertension: Titrate antihypertensives. Stable 02/20/21 8. History of seizures: Seizure precautions, continue Keppra regimen, prn ativan. 9. Tobacco abuse: Will need tobacco counseling more awake and alert; nicotine placement therapy ordered 10. Code Status: Full code 11. DVT Prophylaxis: lovenox Current living situation: Home Expected Disposition: PT/OT pending Estimated discharge date: once taper complete and PT/OT evaluates Subjective: Patient , seen and examined with labs/vitals/imaging biometrics consultant notes reviewed and summarized abovein the assessment and plan. Denies cp, sob, n/v/c/f, abd pain GI or issues. Denied new neuro changes including dizziness, lightheadedness, ROB, focal weakness, numbness, tingling. Doing well on phenobarb. Feels unsteady on his feet. Wants to go to snf if qualifies. Physical Exam: Visit Vitals BP 120/80 (Patient Position: Lying) Pulse 79 Temp 98 F (36.7 C) (Oral) Resp 18 Ht 5' 4 (1.626 m) Wt 59.3 kg (130 lb 11.2 oz) SpO2 95% BMI 22.43 kg/m General: NAD Cardiovascular: Regular rate. Respiratory: normal effort and rate Gastrointestinal: Soft, non tender Genitourinary: no suprapubic tenderness Musculoskeletal: No edema. Skin: warm, dry Neuro: alert Psych: Mood appropriate. Current Medications: aspirin EC 81 mg Oral Daily atorvastatin 80 mg Oral Nightly clopidogrel 75 mg Oral Daily folic acid 1 mg Oral Daily gabapentin 300 mg Oral 3x Daily levETIRAcetam 500 mg Oral 2x Daily Magnesium Oxide 400 mg Oral Once Metoprolol Tartrate 25 mg Oral 2x Daily nicotine 21 mg Transdermal Daily pantoprazole 40 mg Oral Daily before dinner PHENobarbital 60 mg Oral Q6H Followed by [START ON 02/22/2021] PHENobarbital 30 mg Oral Q6H Thiamine Mononitrate 100 mg Oral Daily vitamin B-12 1,000 mcg Oral Daily Labs, Imaging and Studies reviewed: Recent Labs Lab 02/17/21 0524 02/16/212050 HGB 10.2* 11.9* HCT 31.2* 36.6* PLT 121.0* 134.0* Recent Labs Lab 02/21/21 0745 02/20/21 1132 02/20/21 0548 02/19/21 0519 02/19/21 0519 02/17/21 0852 02/17/21 03302/16/21205002/16/212050 NA 137 -- 135 -- 139 < > 143 < > 140 K 4.1 3.7 3.2* < > 3.4* < > 3.0* < > 3.3* CL 106 -- 107 -- 107 < > 103 < > 99 BUN 6* -- 4* -- 5* < > 39* < > 41* CREATININE 0.54* -- 0.50* -- 0.47* < > 1.07 < > 1.82* CALCIUM 9.2 -- 8.4 -- 8.9 < > 8.6 < > 9.6 LABALBU 4.1 -- 3.3* -- -- -- 4.0 < > 5.0 PHOS -- -- -- -- -- -- 3.4 -- 5.6* < > = values in this interval not displayed. Recent Labs Lab 02/21/21 0745 02/20/21 0548 02/17/21 0331 ALT 71* 47 19 AST 126* 85* 88* ALKPHOS 171* 116 119 BILITOT 0.6 0.7 1.7* No results for input(s): INR in the last 168 hours. * Areli Ariza DO - 02/20/2021 11:05 AM EDT [facility] Medicine / [facility] Inpatient Progress Note 02/20/2021 Yonathan Fernandez [id number] Assessment/Plan: Yonathan Fernandez is a 45 y.o. male with a history of coronary artery disease, seizure disorder, extensive alcohol abuse who presented to [facility] 02/16/2021 via EMS as patient has been crawling around on hisfloor for past 3 days. On presentation, patient to be in alcoholic ketoacidosis with ketones greater than 9, bicarb 10, anion gap 31. XR b/l knees unremarkable. CTH non acute. 1. Alcoholic ketoacidosis: Visual hallucinations, disorientation, confusion, verbally combative; ketones greater than 9, bicarb 10, anion gap 31; banana bag containing thiamine, MVI, folic acid administered in ED;. S/p IVF. Daily labs. Resolved with ivf stopped. 02/20/21 2. Acute kidney injury: Creatinine 1.82, baseline roughly 0.6; IV hydration, avoid nephrotoxic agents. Resolved. 3. Hypokalemia/Hypomagnesia: Potassium 3.3 on presentation; IV supplementation in ED, electrolyte placement protocol, telemetry. Monitoring and replacing lytes aggressively. 4. Acute Rhabdomyolysis: crawling around on his floor for past 3 days. CPK 3.4K on admit. IVF. Trend with repeat 02/19/21 with improvement. 5. Alcohol abuse: History of drinking 24 30 beers a daily; CIWA protocol, daily MVI, folate, thiamine supplementation; inpatient consultation to social media designer. Started on scheduled phenobarb taper with prn ativan via ciwa. Improved and will complete taper inpt. Not interested in rehab. Cessation counseled. 6. Coronary artery disease: s/p PCI to pRCA and dRCA in 04/2019, continue ASA, Plavix, Lipitor, Lopressor 7. Essential hypertension: Titrate antihypertensives. Stable 02/20/21 8. History of seizures: Seizure precautions, continue Keppra regimen, prn ativan. 9. Tobacco abuse: Will need tobacco counseling more awake and alert; nicotine placement therapy ordered 10. Code Status: Full code 11. DVT Prophylaxis: SCDs Current living situation: Home Expected Disposition: home Estimated discharge date: In 2-3 days once taper complete Subjective: Patient , seen and examined with labs/vitals/imaging biometrics consultant notes reviewed and summarized abovein the assessment and plan. Denies cp, sob, n/v/c/f, abd pain GI or issues. Denied new neuro changes including dizziness, lightheadedness, ROB, focal weakness, numbness, tingling. Not having hallucinations currently. Seems much more improved today on phenobarb taper Physical Exam: Visit Vitals BP 132/82 (Patient Position: Sitting) Pulse 79 Temp 98.6 F (37 C) (Axillary) Resp 18 Ht 5' 4 (1.626 m) Wt 59.3 kg (130 lb 11.2 oz) SpO2 99% BMI 22.43 kg/m General: NAD Cardiovascular: Regular rate. Respiratory: normal effort and rate Gastrointestinal: Soft, non tender Genitourinary: no suprapubic tenderness Musculoskeletal: No edema. Skin: warm, dry Neuro: awakens to voice but confused. Psych: Mood appropriate. Current Medications: aspirin EC 81 mg Oral Daily atorvastatin 80 mg Oral Nightly clopidogrel 75 mg Oral Daily [START ON 02/21/2021] folic acid 1 mg Oral Daily gabapentin 300 mg Oral 3x Daily levETIRAcetam 500 mg Oral 2x Daily magnesium sulfate 2 g Intravenous Once Metoprolol Tartrate 25 mg Oral 2x Daily nicotine 21 mg Transdermal Daily pantoprazole 40 mg Oral Daily before dinner PHENobarbital 60 mg Oral Q6H Followed by [START ON 02/22/2021] PHENobarbital 30 mg Oral Q6H [START ON 02/21/2021] Thiamine Mononitrate 100 mg Oral Daily vitamin B-12 1,000 mcg Oral Daily Labs, Imaging and Studies reviewed: Recent Labs Lab 02/17/2152302/16/212050 HGB 10.2* 11.9* HCT 31.2* 36.6* PLT 121.0* 134.0* Recent Labs Lab 02/20/21 0548 02/19/21 0519 02/18/21 0635 02/17/21 0852 02/17/2133002/16/21205002/16/212050 NA 135 139 138 < > 143 < > 140 K 3.2* 3.4* 2.8* < > 3.0* < > 3.3* CL 107 107 107 < > 103 < > 99 BUN 4* 5* 9 < > 39* < > 41* CREATININE 0.50* 0.47* 0.45* < > 1.07 < > 1.82* CALCIUM 8.4 8.9 8.3* < > 8.6 < > 9.6 LABALBU 3.3* -- -- -- 4.0 -- 5.0 PHOS -- -- -- -- 3.4 -- 5.6* < > = values in this interval not displayed. Recent Labs Lab 02/20/21 0548 02/17/2133002/16/212050 ALT 47 19 24 AST 85* 88* 104* ALKPHOS 116 119 139* BILITOT 0.7 1.7* 2.1* No results for input(s): INR in the last 168 hours. * Areli Ariza DO - 02/19/2021 11:56 AM EDT [facility] Medicine / [facility] Inpatient Progress Note 02/19/2021 Yonathan Fernandez [id number] Assessment/Plan: Yonathan Fernandez is a 45 y.o. male with a history of coronary artery disease, seizure disorder, extensive alcohol abuse who presented to [facility] 02/16/2021 via EMS as patient has been crawling around on hisfloor for past 3 days. On presentation, patient to be in alcoholic ketoacidosis with ketones greater than 9, bicarb 10, anion gap 31. XR b/l knees unremarkable. CTH non acute. 1. Alcoholic ketoacidosis: Visual hallucinations, disorientation, confusion, verbally combative; ketones greater than 9, bicarb 10, anion gap 31; banana bag containing thiamine, MVI, folic acid administered in ED; hydration via D5 and half-normal saline, BMP and ketones every 4 hours to trend aniongap and ketoacidosis, telemetry. Improved 02/19/21 2. Acute kidney injury: Creatinine 1.82, baseline roughly 0.6; IV hydration, avoid nephrotoxic agents. Resolved. 3. Hypokalemia/Hypomagnesia: Potassium 3.3 on presentation; IV supplementation in ED, electrolyte placement protocol, telemetry. Monitoring and replacing lytes aggressively. 4. Acute Rhabdomyolysis: crawling around on his floor for past 3 days. CPK 3.4K on admit. IVF. Trend with repeat 02/19/21 with improvement. 5. Alcohol abuse: History of drinking 24 30 beers a daily; CIWA protocol, daily MVI, folate, thiamine supplementation; inpatient consultation to social media designer. Started on scheduled phenobarb taper with prn ativan via ciwa. 6. Coronary artery disease: s/p PCI to pRCA and dRCA in 04/2019, continue ASA, Plavix, Lipitor, Lopressor 7. Essential hypertension: Titrate antihypertensives 8. History of seizures: Seizure precautions, continue Keppra regimen, prn ativan. 9. Tobacco abuse: Will need tobacco counseling more awake and alert; nicotine placement therapy ordered 10. Code Status: Full code 11. DVT Prophylaxis: SCDs Current living situation: Home Expected Disposition: TBD Estimated discharge date: In 2-3 days Subjective: Patient , seen and examined with labs/vitals/imaging biometrics consultant notes reviewed and summarized abovein the assessment and plan. Denies cp, sob, n/v/c/f, abd pain GI or issues. Denied new neuro changes including dizziness, lightheadedness, ROB, focal weakness, numbness, tingling. Not having hallucinations currently. Mild tremors. Overnight did have hallucinations and more sig tremors, but more calm currently. Physical Exam: Visit Vitals BP 125/67 Pulse 86 Temp 98.9 F (37.2 C) (Oral) Resp 18 Ht 5' 4 (1.626 m) Wt 59.3 kg (130 lb 11.2 oz) SpO2 99% BMI 22.43 kg/m General: NAD Cardiovascular: Regular rate. Respiratory: normal effort and rate Gastrointestinal: Soft, non tender Genitourinary: no suprapubic tenderness Musculoskeletal: No edema. Skin: warm, dry Neuro: awakens to voice but confused. Psych: Mood appropriate. Current Medications: aspirin EC 81 mg Oral Daily atorvastatin 80 mg Oral Nightly clopidogrel 75 mg Oral Daily [START ON 02/21/2021] folic acid 1 mg Oral Daily gabapentin 300 mg Oral 3x Daily levETIRAcetam 500 mg Oral 2x Daily BANANA BAG INFUSION 1000 ML Intravenous Daily magnesium sulfate 2 g Intravenous Once Metoprolol Tartrate 25 mg Oral 2x Daily nicotine 21 mg Transdermal Daily pantoprazole 40 mg Oral Daily before dinner [START ON 02/21/2021] Thiamine Mononitrate 100 mg Oral Daily vitamin B-12 1,000 mcg Oral Daily Labs, Imaging and Studies reviewed: Recent Labs Lab 02/17/21 0524 02/16/212050 HGB 10.2* 11.9* HCT 31.2* 36.6* PLT 121.0* 134.0* Recent Labs Lab 02/19/21 0519 02/18/21 0635 02/17/21 1306 02/17/21 0852 02/17/21 0331 02/16/21205002/16/212050 NA 139 138 139 < > 143 < > 140 K 3.4* 2.8* 3.5* < > 3.0* < > 3.3* CL 107 107 107 < > 103 < > 99 BUN 5* 9 24 < > 39* < > 41* CREATININE 0.47* 0.45* 0.57* < > 1.07 < > 1.82* CALCIUM 8.9 8.3* 8.1* < > 8.6 < > 9.6 LABALBU -- -- -- -- 4.0 -- 5.0 PHOS -- -- -- -- 3.4 -- 5.6* < > = values in this interval not displayed. Recent Labs Lab 02/17/21 0331 02/16/212050 ALT 19 24 AST 88* 104* ALKPHOS 119 139* BILITOT 1.7* 2.1* No results for input(s): INR in the last 168 hours. * Areli Ariza DO - 02/18/2021 11:14 AM EDT [facility] Medicine / [facility] Inpatient Progress Note 02/18/2021 Yonathan Fernandez 1975 [id number] Assessment/Plan: Yonathan Fernandez is a 45 y.o. male with a history of coronary artery disease, seizure disorder, extensive alcohol abuse who presented to [facility] 02/16/2021 via EMS as patient has been crawling around on hisfloor for past 3 days. On presentation, patient to be in alcoholic ketoacidosis with ketones greater than 9, bicarb 10, anion gap 31. XR b/l knees unremarkable. CTH non acute. 1. Alcoholic ketoacidosis: Visual hallucinations, disorientation, confusion, verbally combative; ketones greater than 9, bicarb 10, anion gap 31; banana bag containing thiamine, MVI, folic acid administered in ED; hydration via D5 and half-normal saline, BMP and ketones every 4 hours to trend aniongap and ketoacidosis, telemetry. Improved, but still with AGMA. 2. Acute kidney injury: Creatinine 1.82, baseline roughly 0.6; IV hydration, avoid nephrotoxic agents. Resolved. 3. Hypokalemia/Hypomagnesia: Potassium 3.3 on presentation; IV supplementation in ED, electrolyte placement protocol, telemetry. Monitoring and replacing lytes aggressively. 4. Acute Rhabdomyolysis: crawling around on his floor for past 3 days. CPK 3.4K on admit. IVF. Trend with repeat ordered 02/19/21 5. Alcohol abuse: History of drinking 24 30 beers a daily; CIWA protocol, daily MVI, folate, thiamine supplementation; inpatient consultation to social media designer 6. Coronary artery disease: s/p PCI to pRCA and dRCA in 04/2019, continue ASA, Plavix, Lipitor, Lopressor 7. Essential hypertension: Titrate antihypertensives 8. History of seizures: Seizure precautions, continue Keppra regimen 9. Tobacco abuse: Will need tobacco counseling more awake and alert; nicotine placement therapy ordered 10. Code Status: Full code 11. DVT Prophylaxis: SCDs Current living situation: Home Expected Disposition: TBD Estimated discharge date: In 2-3 days Subjective: Patient new to me, seen and examined with labs/vitals/imaging biometrics consultant notes reviewed and summarized above in the assessment and plan. Denies cp, sob, n/v/c/f, abd pain GI or issues. Denied new neuro changes including dizziness, lightheadedness, ROB, focal weakness, numbness, tingling. Not having hallucinations currently. Mild tremors. A&OX2. Discussed rehab and pt interested in outpt rehab, but not inpt. Physical Exam: Visit Vitals BP 155/83 Pulse 86 Temp 97.9 F (36.6 C) (Temporal Artery) Resp 18 Ht 5' 4 (1.626 m) Wt 59.3 kg (130 lb 11.2 oz) SpO2 95% BMI 22.43 kg/m General: NAD Cardiovascular: Regular rate. Respiratory: normal effort and rate Gastrointestinal: Soft, non tender Genitourinary: no suprapubic tenderness Musculoskeletal: No edema. Skin: warm, dry Neuro: awakens to voice but confused. Psych: Mood appropriate. Current Medications: aspirin EC 81 mg Oral Daily atorvastatin 80 mg Oral Nightly clopidogrel 75 mg Oral Daily [START ON 02/21/2021] folic acid 1 mg Oral Daily gabapentin 300 mg Oral 3x Daily levETIRAcetam 500 mg Oral 2x Daily BANANA BAG INFUSION 1000 ML Intravenous Daily magnesium sulfate 2 g Intravenous Once Metoprolol Tartrate 25 mg Oral 2x Daily nicotine 21 mg Transdermal Daily pantoprazole 40 mg Oral Daily before dinner KCl 40 mEq with lidocaine in D-5% 250 mL IVPB 40 mEq Intravenous Q4H [START ON 02/21/2021] Thiamine Mononitrate 100 mg Oral Daily vitamin B-12 1,000 mcg Oral Daily Labs, Imaging and Studies reviewed: Recent Labs Lab 02/17/21 0524 02/16/212050 HGB 10.2* 11.9* HCT 31.2* 36.6* PLT 121.0* 134.0* Recent Labs Lab 02/18/21 0635 02/17/21 1306 02/17/21 0852 02/17/21 03302/17/21 03302/16/21205002/16/212050 NA 138 139 140 < > 143 < > 140 K 2.8* 3.5* 3.5* < > 3.0* < > 3.3* CL 107 107 104 < > 103 < > 99 BUN 9 24 30* < > 39* < > 41* CREATININE 0.45* 0.57* 0.71 < > 1.07 < > 1.82* CALCIUM 8.3* 8.1* 8.3* < > 8.6 < > 9.6 LABALBU -- -- -- -- 4.0 -- 5.0 PHOS -- -- -- -- 3.4 -- 5.6* < > = values in this interval not displayed. Recent Labs Lab 02/17/2133002/16/212050 ALT 19 24 AST 88* 104* ALKPHOS 119 139* BILITOT 1.7* 2.1* No results for input(s): INR in the last 168 hours. * Darinel Pete MD - 02/17/2021 9:05 AM EDT [facility] Medicine / [facility] Inpatient Progress Note 02/17/2021 Yonathan Fernandez [id number] Assessment/Plan: Yonathantaisha Fernandez is a 45 y.o. male with a history of coronary artery disease, seizure disorder, extensive alcohol abuse who presented to [facility] 02/16/2021 via EMS as patient has been crawling around on hisfloor for past 3 days. On presentation, patient to be in alcoholic ketoacidosis with ketones greater than 9, bicarb 10, anion gap 31. XR b/l knees unremarkable. CTH non acute. 1. Alcoholic ketoacidosis: Visual hallucinations, disorientation, confusion, verbally combative; ketones greater than 9, bicarb 10, anion gap 31; banana bag containing thiamine, MVI, folic acid administered in ED; hydration via D5 and half-normal saline, BMP and ketones every 4 hours to trend aniongap and ketoacidosis, telemetry 2. Acute kidney injury: Creatinine 1.82, baseline roughly 0.6; IV hydration, avoid nephrotoxic agents. Resolved. 3. Hypokalemia: Potassium 3.3 on presentation; IV supplementation in ED, electrolyte placement protocol, telemetry 4. Acute Rhabdomyolysis: crawling around on his floor for past 3 days. CPK 3.4K on admit. IVF. Trend 5. Alcohol abuse: History of drinking 24 30 beers a daily; CIWA protocol, daily MVI, folate, thiamine supplementation; inpatient consultation to social media designer 6. Coronary artery disease: s/p PCI to pRCA and dRCA in 04/2019, continue ASA, Plavix, Lipitor, Lopressor 7. Essential hypertension: Titrate antihypertensives 8. History of seizures: Seizure precautions, continue Keppra regimen 9. Tobacco abuse: Will need tobacco counseling more awake and alert; nicotine placement therapy ordered 10. Code Status: Full code 11. DVT Prophylaxis: SCDs Current living situation: Home Expected Disposition: TBD Estimated discharge date: In 2-3 days Subjective: Resting in bed. Going through withdrawals. Has tremors. Confused thinks he in [facility] and its 2003. Physical Exam: Visit Vitals BP (!) 142/97 (Patient Position: Lying) Pulse 94 Temp 98.6 F (37 C) (Oral) Resp 18 Ht 5' 4 (1.626 m) Wt 59.3 kg (130 lb 11.2 oz) SpO2 97% BMI 22.43 kg/m General: NAD Cardiovascular: Regular rate. Respiratory: normal effort and rate Gastrointestinal: Soft, non tender Genitourinary: no suprapubic tenderness Musculoskeletal: No edema. Skin: warm, dry Neuro: awakens to voice but confused. Psych: Mood appropriate. Current Medications: aspirin EC 81 mg Oral Daily atorvastatin 80 mg Oral Nightly clopidogrel 75 mg Oral Daily [START ON 02/21/2021] folic acid 1 mg Oral Daily gabapentin 300 mg Oral 3x Daily levETIRAcetam 500 mg Oral 2x Daily BANANA BAG INFUSION 1000 ML Intravenous Daily Metoprolol Tartrate 25 mg Oral 2x Daily nicotine 21 mg Transdermal Daily pantoprazole 40 mg Oral Daily before dinner KCl 40 mEq with lidocaine in D-5% 250 mL IVPB 40 mEq Intravenous Q4H [START ON 02/21/2021] Thiamine Mononitrate 100 mg Oral Daily vitamin B-12 1,000 mcg Oral Daily Labs, Imaging and Studies reviewed: Recent Labs Lab 02/17/21 0524 02/16/212050 HGB 10.2* 11.9* HCT 31.2* 36.6* PLT 121.0* 134.0* Recent Labs Lab 02/17/21 03302/16/212050 NA 143 140 K 3.0* 3.3* CL 103 99 BUN 39* 41* CREATININE 1.07 1.82* CALCIUM 8.6 9.6 LABALBU 4.0 5.0 PHOS 3.4 5.6* Recent Labs Lab 02/17/21 03302/16/212050 ALT 19 24 AST 88* 104* ALKPHOS 119 139* BILITOT 1.7* 2.1* No results for input(s): INR in the last 168 hours. documented in this [facility]09-26-2021 Miscellaneous Notes* D/C Planning - Romina Vargas RN - 02/22/2021 4:46 PM EDT Doctor discharged patient with order for front wheeled walker. Patient tells nurse he does not carewhat [employer] company is used and referral called and sent via [employer] to Adin.OAlex. Kolton from [employer] calls back and states he will deliver same to patient's hospital room. * Rehab Therapies - José Miguel Shi, PT - 02/22/2021 1:37 PM EDT Images from the original note were not included. PT Initial Evaluation Note Name: Yonathan Fernandez Date of : 1975 Admission Date: 02/16/2021 PT Recommendation Recommendations/Continuum of Care: Outpatient Comments: Pt limited functionally mostly by impaired balance and pt is at an increased risk of falls. PT anticipates discharge home with family assist PRN and OP PT f/u Ambulation Distance: Distance: see comment (120') Ambulation Level of Assistance: Stand by assistance, Contact guard assistance Equipment Recommended: Front wheeled walker Barriers to discharge: Fall risk, Decreased caregiver support AM-PAC Raw Score: 18 Requires PT Follow Up: Yes Re-Eval date: (max 2wks): 03/09/21 Plan of Care date: (max 2wks): 03/09/21 PT Plan Treatment/Interventions: ADL retraining, Functional transfer training, LE strengthening/ROM, Endurance training, Cognitive reorientation, Patient/Family training, Equipment eval/education, Bed mobility, Gait training, Stair training, Compensatory technique training, Coordination training, Balance training PT Frequency: 3-5 days/wk PT Evaluation/Assessment History of present illness:Principal Problem: Alcoholic ketoacidosis Active Problems: Tobacco abuse Gastroesophageal reflux disease without esophagitis Alcohol abuse Coronary artery disease involving [place] coronary artery of [place] heart with angina pectoris (HCC) Seizure disorder (HCC) Acute kidney injury (HCC) Past Medical History: has a past medical history of Alcohol abuse, Fall (11/16/2020), Hyperlipidemia, Hypertension, Myocardial infarct (HCC), and Seizures (HCC). Past Surgical History: has a past surgical history that includes hernia repair, arm surgery, Vasectomy, TONSILLECTOMY, Coronary angioplasty with stent, and Coronary angioplasty with stent. Physical Therapist Evaluating Physical Therapist: JT Consent Informed consent: Yes Comments: 45 y/o male admitted to [facility] with alcoholic ketoacidosis. Pt has chronic ETOH abuse with multiple related admissions for withdrawal. RN cleared pt medically for PT IE and pt was agreeable. Pt currently presents with decreased functional mobility, endurance, impaired balance, impaired senstion and pt is a high fall risk. PT anticipates discharge home with OP PT f/u. Restrictions/Precautions Right Lower Extremity Weight Bearing: No restrictions Left Lower Extremity Weight Bearing: No restrictions Fall Risk: Yes (Impaired balance) Cognition Level of Consciousness: Alert/Awake;Oriented Orientation Level: Oriented X4 Cognition: Appropriate judgement;Appropriate safety awareness;Follows commands Speech/Language: Clear, meaningful and understandable;Expresses self clearly Home Living Type of Home: House Lives With: Family (Pt lives with 77 y/o mother) Home Layout: One level Home Access: Level entry (Pt has two steps down into bedroom w/o rails) Home Adaptive Equipment: Rollator Information Provided By: Patient Comments: Pt independent PLOF with difficulty. Pt endorses rollator use and has hx of recurring falls. Prior Function Level of [place]: Independent with ADLs;Independent with functional mobility;Independent with homemaking from ambulatory level Assistance Available?: Yes Assistance Available From: Family Additional Comments: Very limited Sensation Light Touch (discrim) Dermatomal Pattern: Impaired Light Touch (discrim) Intact/Impaired: Impaired LE ROM Assessment RLE General ROM: WFL LLE General ROM: WFL Strength RLE Strength RLE: WFL Comment: Pt would benefit from continued strengthening Strength LLE Strength LLE: WFL Comment: Pt would benefit from continued strengthening Bed Mobility Bed Mobility Level of Assistance: Supervision Bed Mobility From: Supine Bed Mobility Type: To and from Bed Mobility To: Short sit Bed Mobility Therapy Interventions: Head of Bed raised;Bedrail used to assist self to sitting or tosupine;Increased time required to complete;Allowed patient to sit edge of bed for a few minutes to normalize vitals Transfer Transfer (1) Level of Assistance: Contact guard assistance Transfer From: Sit Transfer Type: To and from Transfer To: Stand Technique: Sit to stand;Stand to sit Transfer Device: Front wheeled walker Transfer Therapy Interventions: Cues for correct hand placement Ambulation Weight Bearing Status: No restrictions Ambulation Distance: Distance: see comment (120') Ambulation Level of Assistance: Stand by assistance;Contact guard assistance Surface: Level tile Device: Front wheeled walker Quality of Gait: Decreased essence;Unsteady gait, LOB;Decreased step length RLE;Decreased step length LLE;Shuffling steps Ambulation Therapy Interventions: Cues for close proximity to AD during gait;Cues for safe technique;Cues for proper posture Comments: Pt ambulates above distance with FWW and above gait deviations. Pt ambulates very slowly and heavily uses vision d/t neuropathy. Pt unsteady throughout without major LOB Stairs Stairs?: No (Pt declines to attempt stairs) Balance Sitting - Static Supported: Good Sitting - Dynamic Supported: Good Standing - Static Supported: Fair Standing - Dynamic Supported: Fair TINETTI PETER (Performance Oriented Mobility Assessment) Sitting Balance: Steady, safe Arises: Able, uses UE's Attempt to Rise: Able to rise, 1 attempt Immediate Standing Balance: Steady but uses support Standing Balance: Steady but wide stance (DELMY >4 ) & uses support Nudged: Begins to fall Eyes Closed: Unsteady Turn 360 degrees: Discontinuous steps Sit Down: Uses UE's or not a smooth motion Initiation of Gait: no hesitancy RIGHT Swing Foot - Step Length & Height: Passes LEFT stance foot AND RIGHT foot clears floor completely LEFT Swing Food- Step Length & Height: Passes RIGHT stance foot AND LEFT foot clears floor completely Step Symmetry: R & L step length EQUAL Step Continuity: Steps appear continuous Path (-10'): Mild/moderate deviation or uses assistive device Trunk: Marked sway or uses assistive device Walking Stance: Heels almost touching BALANCE Score (__out of 16): 7 GAIT Score (__ out of 12): 9 BALANCE & GAIT Score (__ out of 28): 16 TINETTI Fall Risk (Calculated): <19= HIGH RISK Activity Tolerance Activity Tolerance: Patient limited by fatigue Education Patient Education Completed With: Patient Role of Therapy and Goals Reviewed: Yes;Patient/Family verbalizes understanding Restrictions/Precautions Reviewed: Yes;Patient/Family verbalizes understanding Safety Reviewed: Yes;Patient/Family verbalizes understanding Therapy Schedule Reviewed: Yes;Patient/Family verbalizes understanding Exercises &/or HEP Reviewed: Yes;Patient/Family verbalizes understanding Assessment Prognosis: Fair Problem List: Decreased LE strength;Decreased endurance;Decreased gross motor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 1.0 % Band Manual 1.0 % Absolute Neutrophil Manual 5.5 2.4 - 6.6 10 3/uL Absolute Lymph Manual 0.8 (L) 1.2 - 3.3 10 3/uL Absolute [place] Manual 0.2 0.2 - 0.6 10 3/uL Absolute Basophil Manual 0.1 0.0 - 0.1 10 3/uL Plt Estimate DECREASED nRBC 1 0 - 1 nRBC 1 0 - 1 Hypochromia 1+ Macrocytosis 1+ Anisocytosis 1+ Poikilocytosis 1+ Polychromasia 1+ Hematology Comments: SEE BELOW Basic metabolic panel aka Chem 8 Collection Time: 02/16/21 8:51 PM Result Value Ref Range Sodium 140 135 - 147 mmol/L Potassium 3.3 (L) 3.6 - 5.1 mmol/L Chloride 99 96 - 109 mmol/L CO2 10 (LL) 22 - 30 mmol/L Glucose 75 65 - 100 mg/dL BUN 41 (H) 8 - 26 mg/dL Creatinine 1.82 (H) 0.66 - 1.25 mg/dL Calcium 9.6 8.4 - 10.4 mg/dL Hepatic function panel Collection Time: 02/16/21 8:51 PM Result Value Ref Range Total Protein 9.1 (H) 6.3 - 8.2 g/dL Albumin 5.0 3.5 - 5.0 g/dL Alk Phos 139 (H) 24 - 126 U/L ALT 24 4 - 50 U/L AST 104 (H) 3 - 55 U/L Total Bilirubin 2.1 (H) 0.2 - 1.6 mg/dL Bilirubin, Direct 0.6 (H) 0.0 - 0.5 mg/dL Serum Alcohol Collection Time: 02/16/21 8:51 PM Result Value Ref Range Ethanol-Serum <10 NOT DETECTED mg/dL GLOMERULAR FILTRATION RATE Collection Time: 02/16/21 8:51 PM Result Value Ref Range GFR 40 Acetone, quantitative, serum Collection Time: 02/16/21 8:51 PM Result Value Ref Range Ketone, Quantitative, Serum >9.00 (HH) 0.02 - 0.27 mmol/L POCT glucose Collection Time: 02/16/21 9:05 PM Result Value Ref Range POC Glucose 69 65 - 100 mg/dL ABG Room Air; Venous Collection Time: 02/16/21 10:13 PM Result Value Ref Range pH 7.346 7.32 - 7.42 pCO2 22.6 (L) 38 - 52 mmHg pO2 44.1 28 - 48 mmHg HCO3 12.1 (L) 19.0 - 25.0 mmol/L Base Excess -11.3 (L) -2.0 - 2.0 mmol/L SO2 78.8 (L) 97.0 - 100.0 % Allens Test N/A O2 Device Room Air Sample Type Blood Venous Sample Site Venous Medications LORazepam injection 2-4 mg (3 mg IV Push Given 02/16/212148) LORazepam (ATIVAN) tablet 2-4 mg ( Oral See Alternative 02/16/212056) Or LORazepam injection 2-4 mg ( Intramuscular See Alternative 02/16/212056) Or LORazepam injection 2-4 mg (2 mg IV Push Given 02/16/212056) m.v.i. adult 10 mL, thiamine (VITAMIN B1) 100 mg, folic acid (VITAMIN B9) 1 mg in sodium chloride 0.9 % 1,000 mL infusion (BANANA BAG) (has no administration in time range) dextrose 5 %-0.45 % sodium chloride infusion ( Intravenous New Bag 02/16/212136) potassium chloride 40 mEq, lidocaine 1% (XYLOCAINE) 8 mL in dextrose 5% 250 mL IVPB (40 mEq Intravenous New Bag 02/16/212157) Procedures History: Chief Complaint Patient presents with Psychiatric Evaluation Delirium Tremens (DTS) Patient's medications and allergies were reviewed. Past Medical History: Diagnosis Date Alcohol abuse Fall 11/16/2020 Hyperlipidemia Hypertension Myocardial infarct (HCC) Seizures (HCC) Past Surgical History: Procedure Laterality Date arm surgery CORONARY ANGIOPLASTY WITH STENT PLACEMENT CORONARY ANGIOPLASTY WITH STENT PLACEMENT HERNIA REPAIR TONSILLECTOMY VASECTOMY Current Outpatient Medications Medication acetaminophen albuterol amitriptyline aspirin EC atorvastatin Blood Pressure Cuff clopidogrel folic acid gabapentin hydrOXYzine levETIRAcetam lisinopril-hydrochlorothiazide Magnesium Oxide Metoprolol Tartrate naproxen pantoprazole potassium chloride SA sildenafil B-1 vitamin B-12 No Known Allergies History of present illness: 45-year-old male with past medical history of alcohol abuse brought into the emergency department via EMS with concern for delirium tremens. Patient reportedly has not had anything to drink over the past 72 hours. The patient has reportedly been in his apartment for the past 72 hours and when EMS was called on the patient he was noted to be crawling on the floor and responding to apparent hallucinations. The patient is unable to provide any history. He is noted to have bruising to his knees bilaterally. The patient does not have any localized neurologic deficits. No further history can be obtained due to the patient's altered mental status. Review of Systems Unable to perform ROS: Mental status change I have personally reviewed the patients past medical history as documented in the chart including past family history, social history, allergies, and past surgical history. Physical Exam: Vitals: 02/16/213 02/16/21213802/16/21213902/16/212147 BP: 138/87 130/90 130/90 134/90 BP Location: Patient Position: Cuff Size: Pulse: 128 133 130 128 Resp: 26 26 19 18 Temp: TempSrc: SpO2: 95% 99% 97% 99% Weight: Height: Physical Exam Vitals and nursing note reviewed. Constitutional: General: He is not in acute distress. Appearance: He is well-developed. He is diaphoretic. HENT: Head: Normocephalic and atraumatic. Right Ear: External ear normal. Left Ear: External ear normal. Nose: Nose normal. Eyes: Pupils: Pupils are equal, round, and reactive to light. Neck: Trachea: No tracheal deviation. Cardiovascular: Rate and Rhythm: Regular rhythm. Tachycardia present. Heart sounds: No murmur heard. No friction rub. Pulmonary: Effort: Pulmonary effort is normal. No respiratory distress. Breath sounds: No wheezing or rales. Abdominal: General: There is no distension. Palpations: Abdomen is soft. Tenderness: There is no abdominal tenderness. There is no guarding. Musculoskeletal: General: Normal range of motion. Cervical back: Neck supple. Comments: Contusions noted to anterior aspect of bilateral knees with associated tenderness. No deformity. Patient neurovascular intact in bilateral lower extremities. Skin: General: Skin is warm. Findings: No erythema. Neurological: General: No focal deficit present. Mental Status: He is alert. He is disoriented. This note was constructed and dictated with the use of the [employer] voice recognition software program which may omit or change portions of the dictation, and/or substitute, homonyms and thereby alter the original intent of the dictated statement. Unintended gender changes may also be incorporated due to misinterpretation of the spoken words. Shiv Park MD 02/16/212218 * Cydney Mathur RN - 02/16/2021 9:20 PM EDT Results received at 0. From lab. Critical Lab result CO2. Results read back and confirmed. Result given to Dr. Park. * Cydney Mathur RN - 02/16/2021 8:38 PM EDT PT arrives per [facility] from home. EMS states that the pt has been crawling around on his floor for thepast 3 days talking to people that are not there. Hx of alcohol abuse but has not drank for the past 3 days. PT alert to name and birthday. Resp easy even and unlabored. NAD noted. Skin warm dry and pink, bruising noted to BLE. * Sandi Curtis RN - 02/16/2021 8:36 PM EDT Bed: 29 [facility] Expected date: 02/16/21 Expected time: 8:27 PM Means of arrival: [facility] Comments: Pt crawling around on the floor for last 3 days [facility] History and physical note* Josie Jacobs MD - 02/16/2021 11:15 PM EDT [facility] Medicine / [facility] History and Physical 02/17/21 Yonathan Fernandez [id number] Assessment/Plan: Yonathan Fernandez is a 45 y.o. male with a history of coronary artery disease, seizure disorder, extensive alcohol abuse who presented to [facility] 02/16/2021 via EMS as patient has been crawling around on hisfloor for past 3 days. On presentation, patient to be in alcoholic ketoacidosis with ketones greater than 9, bicarb 10, anion gap 31. 1. Alcoholic ketoacidosis: Visual hallucinations, disorientation, confusion, verbally combative; ketones greater than 9, bicarb 10, anion gap 31; banana bag containing thiamine, MVI, folic acid administered in ED; hydration via D5 and half-normal saline, BMP and ketones every 4 hours to trend aniongap and ketoacidosis, telemetry 2. Acute kidney injury: Creatinine 1.82, baseline roughly 0.6; IV hydration, avoid nephrotoxic agents 3. Hypokalemia: Potassium 3.3 on presentation; IV supplementation in ED, electrolyte placement protocol, telemetry 4. Alcohol abuse: History of drinking 24 30 beers a daily; CIWA protocol, daily MVI, folate, thiamine supplementation; inpatient consultation to social media designer 5. Coronary artery disease: s/p PCI to pRCA and dRCA in 04/2019, continue ASA, Plavix, Lipitor, Lopressor 6. Essential hypertension: Titrate antihypertensives 7. History of seizures: Seizure precautions, continue Keppra regimen 8. Tobacco abuse: Will need tobacco counseling more awake and alert; nicotine placement therapy ordered 9. Code Status: Full code 10. DVT Prophylaxis: SCDs Current living situation: Home Expected Disposition: TBD Estimated discharge date: In 2-3 days Chief Complaint: Confusion, delirium History of Present Illness: 45-year-old male with PMH of extensive alcohol abuse, coronary artery disease, hypertension, seizures presented with confusion and delirium. Per EMS, patient had been crawling around on thefloor for the past 3 days. In ED, patient had become agitated and hostile, requiring IV Ativan per CIWA protocol. Patient is resting peacefully, however unable to conduct interview and exam as patient is fairly incomprehensible in his speech. Per medical chart review, patient has history of consuming 24 30 beers a day. ROS: Unable to perform a complete review of systems due to lethargy and possible acute intoxication Past Medical, Surgical, Social, Family History: Past Medical History: Diagnosis Date Alcohol abuse Fall 11/16/2020 Hyperlipidemia Hypertension Myocardial infarct (HCC) Seizures (HCC) Past Surgical History: Procedure Laterality Date arm surgery CORONARY ANGIOPLASTY WITH STENT PLACEMENT CORONARY ANGIOPLASTY WITH STENT PLACEMENT HERNIA REPAIR TONSILLECTOMY VASECTOMY Social History Socioeconomic History Marital status: Single Spouse name: Not on file Number of children: Not on file Years of education: Not on file Highest education level: Not on file Occupational History Not on file Tobacco Use Smoking status: Current Every Day Smoker Packs/day: 1.00 Years: 20.00 Pack years: 20.00 Types: Cigarettes Smokeless tobacco: Never Used Vaping Use Vaping Use: Never used Substance and Sexual Activity Alcohol use: Yes Comment: 12 pack on Fridays Drug use: No Sexual activity: Yes Partners: Female control/protection: Surgical Other Topics Concern Not on file Social History Narrative Not on file Social Determinants of Health Financial Resource Strain: Difficulty of Paying Living Expenses: Food Insecurity: Worried About Running Out of Food in the Last Year: Ran Out of Food in the Last Year: Transportation Needs: Lack of Transportation (Medical): Lack of Transportation (Non-Medical): Physical Activity: Days of Exercise per Week: Minutes of Exercise per Session: Stress: Feeling of Stress : Social Connections: Frequency of Communication with Friends and Family: Frequency of Social Gatherings with Friends and Family: Attends [employer] Services: Active Member of Clubs or Organizations: Attends Club or Organization Meetings: Marital Status: Intimate Partner Violence: Fear of Current or Ex-Partner: Emotionally Abused: Physically Abused: Sexually Abused: Family History Problem Relation Age of Onset Diabetes Maternal Grandfather Home Medications: No current facility-administered medications on file prior to encounter. Current Outpatient Medications on File Prior to Encounter Medication Sig Dispense Refill acetaminophen (TYLENOL) 500 MG tablet Take 1 tablet by mouth every 6 hours as needed for Pain. 30 tablet 0 albuterol 108 (90 Base) MCG/ACT inhaler INHALE 2 PUFFS INTO THE LUNGS EVERY 4 HOURS NEEDED FOR WHEEZING AND/OR SHORTNESS OF BREATH. 18 g 4 amitriptyline (ELAVIL) 75 MG tablet TAKE 1 TABLET BY MOUTH NIGHTLY. 30 tablet 6 aspirin EC (ECOTRIN LOW STRENGTH) 81 MG EC tablet Take 1 tablet by mouth daily. 30 tablet 1 atorvastatin (LIPITOR) 80 MG tablet TAKE 1 TABLET BY MOUTH NIGHTLY. 30 tablet 11 Blood Pressure Monitoring (BLOOD PRESSURE CUFF[place] [facility] [place] PR[place] 1 each 0 clopidogrel (PLAVIX) 75 MG tablet TAKE 1 TABLET BY MOUTH DAILY. 30 tablet 2 folic acid (FOLVITE) 1 MG tablet Take 1 tablet by mouth daily. 30 tablet 1 gabapentin (NEURONTIN) 300 MG capsule TAKE 1 CAPSULE BY MOUTH 3 TIMES DAILY. 90 capsule 2 hydrOXYzine (ATARAX) 50 MG tablet Take 1 tablet by mouth every 6 hours as needed for Anxiety (for MILD anxiety- patient reported anxiety 1-4). 30 tablet 0 levETIRAcetam (KEPPRA) 500 MG tablet Take 1 tablet by mouth two times a day. 120 tablet 3 lisinopril-hydrochlorothiazide (PRINZIDE,ZESTORETIC) 20-12.5 MG per tablet TAKE 2 TABLETS BY MOUTH DAILY. 60 tablet 2 Magnesium Oxide (MAG-OX) 400 (241.3 Mg) MG tablet Take 1 tablet by mouth daily. 30 tablet 0 Metoprolol Tartrate (LOPRESSOR) 25 MG tablet TAKE 1 TABLET BY MOUTH TWO TIMES A DAY. 60 tablet 2 naproxen (NAPROSYN) 500 MG tablet Take 1 tablet by mouth two times a day. 15 tablet 0 pantoprazole (PROTONIX) 40 MG tablet TAKE 1 TABLET BY MOUTH DAILY. 30 tablet 2 potassium chloride SA (K-DUR,KLOR-CON M20) 20 MEQ tablet Take 2 tablets by mouth daily. 30 tablet 0 sildenafil (VIAGRA) 100 MG tablet Take 1 tablet by mouth daily as needed. 30 tablet 6 Thiamine HCl (B-1) 100 MG TABS TAKE 1 TABLET BY MOUTH DAILY. 30 tablet 2 vitamin B-12 (CYANOCOBALAMIN) 1000 MCG tablet TAKE ONE TABLET BY MOUTH ONCE DAILY 30 tablet 3 No Known Allergies Physical Exam: Visit Vitals BP 136/86 Pulse 116 Temp 97 F (36.1 C) (Axillary) Resp 24 Ht 5' 4 (1.626 m) Wt 61.2 kg (135 lb) SpO2 97% BMI 23.17 kg/m General: NAD; disheveled, chronically ill-appearing Eyes: EOMI ENT: neck supple Cardiovascular: Tachycardia, otherwise normal heart sounds Respiratory: Clear to auscultation Gastrointestinal: Soft, non tender Genitourinary: no suprapubic tenderness Musculoskeletal: No edema Skin: warm, dry Neuro: Alert. Psych: Somnolent; arousable to verbal stimulation but not communicative Labs, Imaging, and Studies reviewed: Recent Labs Lab 02/16/212050 HGB 11.9* HCT 36.6* PLT 134.0* Recent Labs Lab 02/16/212050 NA 140 K 3.3* CL 99 BUN 41* CREATININE 1.82* CALCIUM 9.6 LABALBU 5.0 Recent Labs Lab 02/16/212050 ALT 24 AST 104* ALKPHOS 139* BILITOT 2.1* No results for input(s): INR in the last 168 hours. documented in this [facility]08-10-2021 Miscellaneous Notes* Nursing - Alda Foster RN - 01/06/2021 1:15 PM EDT Discharged instructions read and given to patient, pt denies any concerns or complaints at this time and is leaving unit for discharged. * Nursing - Alda Foster RN - 01/06/2021 11:31 AM EDT Patient may aware of discharge orders, he has notify his mom and she will be in at 1 PM to pick himup for discharged. Pt. denies any needs at this time. * D/C Planning - FRITZ SAUNDERS - 01/06/2021 11:25 AM EDT Spoke with Kee at [facility] and they are able to accept patient for PT/OT. Kee also notified at this time that patient has discharge orders in. * Nursing - Turner Han RN - 01/06/2021 7:00 AM EDT Patient resting in bed throughout shift, no behaviors noted. CIWA (-). Consent signed for stress test, metoprolol held with patient npo. meds given with very small sips. Patients mother called at this time and updated with all questions answered. * Nursing - Roxanne Nicole RN - 01/05/2021 5:48 PM EDT End of Shift Note: Patient resting in bed at this time. A/O x4 with intermittent confusion throughout shift. MRI negative. Stress test scheduled for tomorrow. NPO at midnight. Mother, Shanice called and updated on plan of care. All questions answered. * D/C Planning - Wendy Mccarty - 01/05/2021 2:37 PM EDT CM Initial Discharge Planning Yonathan Fernandez 1975 Met with Yonathan Fernandez at Bedside. Yonathan Fernandez actively participated in the Discharge Planning Process SW called patient's name several times and patient woke up. SW introduced self and explained role. Patient states he feels he is back to his baseline. Patient said he does not need rehab and called it bullshit. Patient then presented as annoyed and SW asked him to repeat something he said lookingtowards the door and he said I was just talking to Jack He then said Jack, I need a airframe technician. SW left and advised RN of patient possibly hallucinating. Initial Discharge Planning Anticipated Length of Stay: 10 Difference with actual LOS: -4 Reason for Referral: Routine Discharge Plan Obtained Information From: Chart, Patient Family contact name: Shanice Fernandez Relationship to patient: Mother Family Contact Number: [phone] Living Arrangements: Parent Capacity for Self-Care of ADLs: Independent Are family members/care delivery providers able to provide care necessary upon discharge without environmental modification: Yes New functional deficits: Yes Physical Therapy Screening: Pt referral needed Occupational therapy screening: OT referral needed Speech therapy screening: No referral needed Home Environment: Patient's home is Single Level Is patient diabetic?: No Does Patient Currently Use DME: No Have you served in [employer] services: No Who will provide transportation?: Other Barriers to Discharge: None Discharge Plans Complete: Yes Discharge Planning Needs Anticipated Discharge Plan: Home or Self Care Med Outreach: No Med Precert needed: Unknown Mode of Transportation: Car Barriers to Discharge: None Discharge plan developed in collaboration with: Patient, Attempted with Family/Caregiver Initial Discharge plan mutually acceptable to patient/family/sample case porter?: Yes Wendy Mccarty The patient has the right to participate in the development and implementation of his plan of care.The patient or his door to door sales representative (as allowed under State law) has the right to make informed decisions regarding his discharge plan. The patient's right includes being involved in care planning and treatment. * Nursing - Divine Galvan RN - 01/05/2021 1:03 PM EDT 01/05/21 1303 Vital Signs BP (!) 88/50 BP Method Manual BP Site Left;Upper extremity MD made aware of manual BP at this time. States to re-check in 15 mins and hold BP medications. 01/05/21 1318 Vital Signs BP 94/56 BP Method Manual BP Site Right;Upper extremity MD made aware of repeat BP, states to re-check in an hour. Will continue to monitor. * D/C Planning - FRITZ SAUNDERS - 01/05/2021 10:47 AM EDT Spoke with patient regarding PT/OT orders in the computer and HH following upon discharge and patient agreeable to HH. Called referral to [facility] and they can not accept due to not accepting insurance. 10:49am Called referral into Sheila at [facility] and they do accept insurance and she will review patient chart and their staffing and will call back. 11:20am Received call back from Sheila at [facility] and they can not accept due to staffing. 11:30pm Referral sent to [facility], awaiting call back. * Rehab Therapies - Satnam, [id number] Afsaneh, OT - 01/05/2021 10:42 AM EDT Images from the original note were not included. [facility] OT Initial Evaluation Name: Yonathan Fernandez Date of : 1975 Admission Date: 12/28/2020 OT Recommendations Recommendations/Continuum of Care: Further post-acute services 1-3x/week Feeding Level of Assistance: Independent, Setup Grooming Level of Assistance: Standby Assistance, Setup UE Bathing Level of Assistance: Standby Assistance, Setup LE Bathing Level of Assistance: Minimum assistance, Setup UE Dressing Level of Assistance: Standby Assistance, Setup Overall Cognitive Status: Impaired Barriers to discharge: 24 hour care needed for safety, Fall risk, Decreased caregiver support AM-PAC Raw Score: 19 Re-Eval date: 01/16/21 Plan of Care date: 01/16/21 OT Plan OT Plan Treatment Interventions: ADL retraining, UE strengthening/ROM, Endurance training, Patient/Family training OT Frequency: 5xweek OT Duration: for 2 weeks Past Medical History: has a past medical history of Alcohol abuse, Fall (11/16/2020), Hyperlipidemia, Hypertension, Myocardial infarct (HCC), and Seizures (HCC). Past Surgical History: has a past surgical history that includes hernia repair, arm surgery, Vasectomy, TONSILLECTOMY, Coronary angioplasty with stent, and Coronary angioplasty with stent. OT Frequency: 5xweek OT Duration: for 2 weeks Documentation Type Documentation Type Documentation type: Initial Eval Comments: admitted on 12-28-2020 with acute chest pain Patient/Family Goals Patient/Family Goal Patient/Family Goal: none stated this date Restrictions/Precautions Restrictions/Precautions Right Lower Extremity Weight Bearing: No restrictions Left Lower Extremity Weight Bearing: No restrictions Sternal Precautions: No Spinal Precautions: No Fall Risk: Yes (weakness) Required Braces & Orthoses Braces/Orthoses Required Braces or Orthoses?: No Cognition Cognition Overall Cognitive Status: Impaired Comments: Pt. with some confusion Home Living Home Living Type of Home: House Lives With: Family Home Layout: More than one level Multi-level Home Details: Able to live on main level Sleeping Surface: Standard bed Bathroom Shower/Tub: Tub/Shower unit Bathroom Equipment: Grab bars in shower Home Adaptive Equipment: Single point cane Information Provided By: Patient Comments: Pt reports that he lives with his mother and uses a cane when he is having a bad day. Prior Function Prior Function Level of [place]: Independent with ADLs, Independent with functional mobility, Needs assistance with homemaking Assistance Available?: Yes Assistance Available From: Family Activity Tolerance Activity Tolerance Activity Tolerance: Patient limited by fatigue Vitals & Pain Pre Treatment Pain Screening Pain at Present: 3 Scale Used: Numeric Score Pain Location: Chest ROM LUE ROM (degrees) LUE ROM: WFL for ADL activity RUE ROM (degrees) RUE ROM: WFL for ADL activity Strength/Tone LUE Strength LUE strength comment: 4/5 throughout RUE Strength RUE Comment: 4/5 throughout Tone LUE LUE Tone: Normotonic Tone RUE RUE Tone: Normotonic Hand Dominance Hand Dominance: Right Sensation/Co-ordination Vision - Basic Assessment Prior Vision: No visual deficits Patient Visual Report: No visual complaint reported. Light Touch RUE Light Touch: Grossly intact LUE Light Touch: Grossly intact Coordination Movements Are Fluid And Coordinated: Yes ADL Treatments (Feeding) Feeding Level of Assistance: Independent, Setup Where Assessed: Bed level Feeding Performance Mode: Per Patient Report ADL Treatments (Grooming) Grooming Level of Assistance: Standby Assistance, Setup Where Assessed: Bed level Grooming Performance Mode: Per Simulation ADL Treatments (Bathing) UE Bathing Level of Assistance: Standby Assistance, Setup Where Assessed: Bed level UE Bathing Performance Mode: Per Simulation LE Bathing Level of Assistance: Minimum assistance, Setup Where Assessed: Bed level LE Bathing Performance Mode: Per Simulation ADL Treatments (Dressing) UE Dressing Level of Assistance: Standby Assistance, Setup Where Assessed: Bed level UE Dressing Performance Mode: Per Simulation LE Dressing: (min assist after setup per simulation) Education Education Patient Education Completed With: No family/caregiver available, Patient Role of Therapy and Goals Reviewed: Yes Barriers to Function Assessment Prognosis: Fair Problem List: Decreased LE strength, Decreased UE strength, Decreased safety awareness, Decreased safe judgement during functional tasks, Decreased endurance, Decreased cognition, Decreased functional mobility, Decreased coordination, Decreased trunk control for functional activities, Impaired gait mechanics, Increased fall risk, Balance deficits, Decreased ADL status, Decreased IADLs Barriers to discharge: 24 hour care needed for safety, Fall risk, Decreased caregiver support AM-PAC Eating meals?: None Personal grooming such as: brushing teeth?: A Little Putting on and taking off regular upper body clothing?: A Little Putting on and taking off regular lower body clothing?: A Little Toileting: which includes using toilet, bedpan, or urinal?: A Little Bathing: including washing, rinsing, drying?: A Little AM-PAC Raw Score: 19 AM-PAC Scale Score: 40.22 AM-PAC CMS 0-100% Score: 42.80% AM-PAC CMS Modifier: CK Plan and Goals ADL Goals Pt Will Perform Eating: Independent Pt Will Perform Grooming: Independent, Set up Pt Will Perform Bathing: Independent, Set up Pt Will Perform LE Bathing: Standby Assistance, Set up Pt Will Perform UE Dressing: Independent, Set up Pt Will Perform LE Dressing: Standby Assistance, Set up Home Exercise Program Goals Patient will perform Home Exercise Program : BUE, 1# weight, 1 set, 10 reps, Supervision, Moderate HEP Patient/Family Goal Patient/Family Goal: none stated this date General General Chart Reviewed: Yes Time spent with patient/family/caregiver: 10 Minutes Amount of Missed Time: 20 Family / Caregiver Present: No End of Therapy Session: Resting in bed, Call light in reach, CVS monitor present in room General Comment Comments: OT evaluation completed. Signature: Afsaneh Hay [id number], OT January 05, 2021 * Nursing - Eloy Contreras LPN - 01/05/2021 6:27 AM EDT Family updated at this time. * Nursing - Eloy Contreras LPN - 01/05/2021 4:57 AM EDT End of shift note: Patient CIWA'S 0. A/O x 4 w int disorientation of where he is at times. No behaviors observed overnight. Patient currently resting in bed with call light in reach. * Nursing - Chelsea Dow RN - 01/04/2021 6:11 PM EDT End of Shift Note: pt resting in bed, 1:1 sitter at bedside. A&Ox4 this evening. Pt states he felt good today, no ativan was needed. Pt was up in the chair for breakfast this morning. * D/C Planning - Marla Gunderson RN - 01/04/2021 3:51 PM EDT Patient continues to have a sitter - CM LM for patient's mom to complete initial assessment. Awaiting PT/OT to evaluate for assistance with DC planning. * Nursing - Marta Cook LPN - 01/04/2021 6:46 AM EDT Mother updated at this time. Questioning if we are going to get brain scans done or not. States sheis getting frustrated because she doesn't see why we are not or have not yet. Mother also curious on what will happen if he stays in the current condition he is in. Questions answered to the best of this nurses ability. * Nursing - Marta Cook LPN - 01/04/2021 6:42 AM EDT End of shift: Pt aaox3, states it is 1926 and july currently. Pt drowsy this AM. Slept most of night and easily redirected when behaviors occurred. Pt has no needs or complaints at this time. Will call family. * Plan of Care - Frances Uriarte RN - 01/04/2021 1:12 AM EDT Care plans reviewed. Pt AxO but gets disoriented at times. * Nursing - Marta Cook LPN - 01/03/2021 8:32 PM EDT Pt has a reduced depth perception. Grabbing things too early as well as unable to perform finger tip/nose touch exercise. * Nursing - Chelsea Dow RN - 01/03/2021 5:44 PM EDT End of Shift Note: Pt resting in bed. 1:1 sitter continued at bedside. A&Ox4. Pt states he feels much better and needs to get home to take care of his mom. Denies further needs. * Rehab Therapies - Allan Hay OT - 01/03/2021 11:39 AM EDT Name: Yonathan Fernandez CAT: [id number] 01/03/21 1139 General Chart Reviewed Yes Time spent with patient/family/caregiver 0 Minutes Amount of Missed Time 20 General Comment Comments OT evaluation order received and appreciated. Pt. sleeping soundly, 1:1 sitter in room. Will follow up as able. * Nursing - Katelin Casper RN - 01/03/2021 10:58 AM EDT Rit signed * Renata - Marta Cook LPN - 01/03/2021 6:44 AM EDT Mom updated at this time. Very unhappy with sons care states we are not looking for a problem when there is one states he has cut back on alcohol more so that shouldn't be the problem. Mom states he needs brain scans instead of exploring alcohol abuse. * Nursing - Marta Cook LPN - 01/03/2021 5:13 AM EDT End of shift: Pt awake most of night, CVS and bed alarm alerted multiple times d/t pt trying to getup for multiple reasons. Pt orientedx4 most of night x3 this AM states its year 2119 although pt kept asking us to take and get things that were not there as well as saying he needed to get to work or go to the kitchen to eat dinner. CIWAS done ativan givenx1 at this time. Requested sitter this AM. Will update family this AM. * Plan of Care - Frances Uriarte RN - 01/03/2021 1:52 AM EDT Care plans reviewed. Pt oriented x4 but says things that don't make sense and gets confused- tryingto get OOB to go to work or call his work. Reoriented multiple times. CVS in place. * Nursing - AJAY ADAN - 01/02/2021 5:56 PM EDT End of Shift Note: Attempted to call mother Shanice with update. Left message. Patient resting throughout day. No ativangiven. * D/C Planning - Celia Eldridge BSW - 01/02/2021 2:53 PM EDT Stopped to see pt but he was soundly sleeping and did not awaken when name was called out. He is still detoxing. Will meet with pt when awake/alert. Currently has a tele-sitter. Per Dr. Pete it is not necessary to to an Alcohol audit. * Rehab Therapies - Marina [id number], Eufemia, PT - 01/02/2021 1:30 PM EDT Images from the original note were not included. PT Initial Evaluation Note Name: Yonathan Fernandez Date of : 1975 Admission Date: 12/28/2020 PT Recommendation Recommendations/Continuum of Care: Further post-acute services 3-5x/week (i.e. Subacute Rehab), Further post-acute services 1-3x/week (i.e. Home Health) Ambulation Distance: A few steps from bed < -> chair, Distance: see comment (25 feet) Ambulation Level of Assistance: Minimum assistance, Moderate assistance Equipment Recommended: Front wheeled walker Barriers to discharge: 24 hour care needed for safety, Fall risk, Decreased caregiver support AM-PAC Raw Score: 11 Requires PT Follow Up: Yes Re-Eval date: (max 2wks): 01/16/21 Plan of Care date: (max 2wks): 01/16/21 PT Plan Treatment/Interventions: LE strengthening/ROM, Functional transfer training, Endurance training, Bed mobility, Gait training, Cognitive reorientation PT Frequency: 3-5 days/wk PT Evaluation/Assessment History of present illness:Principal Problem: Acute chest pain Active Problems: Tobacco abuse Acute alcohol intoxication, uncomplicated (HCC) Alcohol withdrawal (HCC) Alcohol abuse Coronary artery disease involving [place] coronary artery of [place] heart with angina pectoris (HCC) Elevated lipase Past Medical History: has a past medical history of Alcohol abuse, Fall (11/16/2020), Hyperlipidemia, Hypertension, Myocardial infarct (HCC), and Seizures (HCC). Past Surgical History: has a past surgical history that includes hernia repair, arm surgery, Vasectomy, TONSILLECTOMY, Coronary angioplasty with stent, and Coronary angioplasty with stent. Physical Therapist Evaluating Physical Therapist: gs Consent Informed consent: Yes Comments: Pt admit on 12/28/20 with acute chest pain. (probable alcoholic gastritis). Pt had 5 stentsin Pt has had 1:1 sitter until this PM and currently has CVS.. Pt asleep when therapist entered room. . easy to arouse but difficult to stay awake.Per nursing blood alcohol level was 365 upon admit. Pt is still actively withdrawing. Patient's Goal Patient's Therapy Goal(s): unable to verbalize goals Restrictions/Precautions Right Lower Extremity Weight Bearing: No restrictions Left Lower Extremity Weight Bearing: No restrictions Sternal Precautions: No Fall Risk: Yes Comments: very unsteady Cognition Orientation Level: Oriented to person;Oriented to place;Disoriented to time;Disoriented to situation Cognition: Impulsive;Poor judgement;Poor safety awareness Speech/Language: Slurred Home Living Type of Home: House Lives With: Family Home Layout: More than one level Multi-level Home Details: Able to live on main level Home Adaptive Equipment: Single point cane Information Provided By: Patient Comments: Pt reports that he lives with his mother and uses a cane when he is having a bad day. Prior Function Level of [place]: Independent with ADLs;Independent with functional mobility;Needs assistance with homemaking Assistance Available?: Yes Assistance Available From: Family Physical Therapy Vitals Additional PT Vitals Comments: stable per EMR PT Pain Assessment Pain Intervention for PT: Patient able to continue with treatment PT Pain Comment: Pt unable to grade pain but he grimaces with movment abd reports chronic back pain. UE Assessment RUE General Strength/ROM: WFL LUE General Strength/ROM: WFL LE ROM Assessment RLE General ROM: WFL Strength RLE Strength RLE: WFL Strength LLE Strength LLE: WFL Bed Mobility Bed Mobility Level of Assistance: Moderate assistance Bed Mobility From: Supine Bed Mobility Type: To and from Bed Mobility To: Short sit Bed Mobility Therapy Interventions: Increased time required to complete;Bedrail used to assist selfto sitting or to supine;Head of Bed raised;Therapist assisted with LE management;Utilized chucks pad to help scoot patient to edge of bed Transfer Transfer (1) Level of Assistance: Moderate assistance Transfer From: Bed Transfer Type: To and from Transfer To: Stand;Chair with arms Technique: Sit to stand;Stand to sit Transfer Device: Front wheeled walker Transfer Therapy Interventions: Assist with control for sit<-->stand;Cues for correct hand placement;Cues for body position to maximize leverage for sit<-->stand;Patient did not control descent from stand->sit Ambulation Weight Bearing Status: No restrictions Ambulation Distance: A few steps from bed < -> chair;Distance: see comment (25 feet) Ambulation Level of Assistance: Minimum assistance;Moderate assistance Surface: Level tile Device: Front wheeled walker Quality of Gait: Decreased essence;Unsteady gait, LOB;Forward flexion (NOT needed for breathing);Ataxic gait pattern Comments: Pt's trunk and extrtemities are extremely rigid. . minimal heel toe action. very slow essence. vc's for pt to stay awake Stairs Stairs?: No Balance Sitting - Static Supported: Good Sitting - Static Unsupported: Good Sitting - Dynamic Supported: Fair;+ Sitting - Dynamic Unsupported: Fair Standing - Static Supported: Fair Standing - Static Unsupported: Not tested Standing - Dynamic Supported: Fair Standing - Dynamic Unsupported: Not tested Activity Tolerance Activity Tolerance: Patient limited by fatigue;Patient limited by pain Education Patient Education Completed With: No family/caregiver available Role of Therapy and Goals Reviewed: Yes Safety Reviewed: Yes Assessment Prognosis: Fair Problem List: Decreased LE strength;Decreased UE strength;Decreased safety awareness;Decreased safejudgement during functional tasks;Decreased endurance;Decreased cognition;Decreased functional mobility;Decreased coordination;Decreased trunk control for functional activities;Impaired gait mechanics;Increased fall risk;Balance deficits Barriers to discharge: 24 hour care needed for safety;Fall risk;Decreased caregiver support AM-PAC Mobility Scores AM-PAC Raw Score: 11 AM-PAC Scale Score: 30.25 AM-PAC 0-100% CMS Score: 66.76% AM-PAC CMS Modifier: CL Short Term Goals Goal Formulation: With patient Time For Goal Achievement: 1-2 Weeks Pt Will Go Supine To Sit: Contact guard assistance Pt Will Go Sit to Supine: Contact guard assistance Pt Will Sit to Stand: Stand by assistance Pt Will Transfer Bed/Chair: Stand by assistance Pt Will Ambulate: Standby assistance;Front wheeled walker;51-100 feet Pt Will Tolerate Exercise: 11-15 reps;Supervision General Chart Reviewed: Yes Additional Pertinent Hx: alcoholic withdrawell Time spent with patient/family/caregiver: 10 Minutes Family / Caregiver Present: No Comments: PT eval completed. Pt is currently requiring mod assist for all activities He is extremely lethargic, has increased tone in all extremities, tremors in UE's and he is unsafe to return home alone. End of Therapy Session: Call light in reach;Phone in reach;Resting in bed;CVS monitor present in room;Bed alarm turned on;Nursing notified verbally of patient status Signature: Eufemia Lanza, PT January 02, 2021 * Nursing - AJAY ADAN - 01/02/2021 1:00 PM EDT Patient resting quietly throughout morning. CVS in room and sitter discontinued. * Nursing - AJAY ADAN - 01/02/2021 10:00 AM EDT Patient resting quietly at this time. Will give medications when patient awake. 1:1 at bedside. * Rehab Therapies - Anahy Valenzuela OTR - 01/02/2021 9:07 AM EDT OT IE orders received. D/t volume of evals on caseload, pt may not be seen this date. Will continueto follow. Thanks. * Nursing - Maxine Bolivar, ERIK - 01/02/2021 5:13 AM EDT Pt resting in bed. 1:1 sitter coninued. Pt tries to get out of bed. Alert/oriented x2 this am. Pt did take oral medications except for at midnight. Belongings in reach, denies further needs. * Nursing - Maxine Bolivar, ERIK - 01/01/2021 8:35 PM EDT At 2029 pt stating he is leaving AMA. Alert/oriented to self, place, and time only. Significant tremors present along with anxiety, and agitation. PRN ativan 2mg given. * AJAY Thomas - 01/01/2021 6:07 PM EDT Patient remains confused with tremors in bilateral arms. He is conversing with sitter. Disoriented and with slurred speech but not attempting to get out of bed. Sitter is encouraging patient to eat dinner. * AJAY Thomas - 01/01/2021 5:29 PM EDT End of Shift Note: Patient drowsy at this time. Would not take medications po. Is asking for his stress test results and insisting that he did the test today (he did not). Sitter at bedside to redirect. * D/C Planning - Wendy Mccarty - 01/01/2021 3:12 PM EDT Patient not seen due to continue agitation. Sitter in room. Patient given ativan multiple times. * AJAY Thomas - 01/01/2021 2:56 PM EDT Patient continues to refuse oral medications. More redirectible at this time. 1:1 sitter with patient. Patient becomes more agitated when needing to void but then calms after. Repositioned for comfort. * AJAY Thomas - 01/01/2021 11:01 AM EDT CIWA score increased to 23. Ativan given per prn order. Patient attempting to get out of bed and isnot redirectible. 1:1 sitter in room at this time and CVS discontinued. Patient confused and speaking to people who are not in room. * AJAY Thomas - 01/01/2021 10:28 AM EDT 0940: Pharmacy aware that the pyxis on unit (both [facility]) are out of IV ativan. Pharm states that someone is coming to refill. 1027: No ativan in pyxis at this time. Patient appears calmer and CIWA score has decreased. * AJAY Thomas - 01/01/2021 9:27 AM EDT Attempted to give patient medications orally. Patient refused to open mouth. Medications marked as given but not actually given. Unable to re-direct. * Maxine Romero, ERIK - 01/01/2021 5:34 AM EDT Pt currently resting in bed. At 2255, pt attempting to get out of bed with tremors, hallucinations (states we are in his house),slurred speech, and agitation (states- give me the f*Coinpluging phone). 2mg at ativan given. At 0335 [facility] alarms and pt shows more tremors while extended, talking to someone who is not in the room, and swatting at the ceiling to either grab or smack something. 3mg ativan given. At 0506 pt yelling at Divine to get in here, when this RN enters room pt states you need a warrant to enter. This RN tries to reorient pt without success. Pt lifts his arms and significant tremors present. Pt continues to try to grab something with his arms in the air, then acts like he is smoking. CIWA 25, 4mg of ativan given. Pt presented with slurred speech throughout shift and unable to follow commands to sip water from astraw. No oral medications given. Pt refusing to let MST take vitals this am at 0533. Pt now alert/oriented to self, place, and year. Belongings in reach, denies further needs. * Maxine Romero, ERIK - 12/31/2020 7:36 PM EDT Pt trying to get out of bed at this time. CVS stat alarming, pt is showing severe agitation, slurred speech, significant tremors, unable to follow commands and stating he's at home and the year is 1936. CIWA score 15, 3mg ativan given at this time. * Nursing - Marylu Rojas RN - 12/31/2020 5:07 PM EDT Staff in room patient moved foot to kick MST's hand away from bed control then began shaking and grabbing at second MST's wrist for approximately 30 seconds, once finished shaking patient stated I had a seizure. Patient in bed, radio script writer entered room patient with no s/sx distress at this time. Patient laying back in bed VS: 144/86, 94% on room air, 18, 80, 97.[address] Pete made aware. * Marylu Green RN - 12/31/2020 3:24 PM EDT Patient in bed at present with call light and items of need in easy reach. Patient currently eatinglunch at this time. Patient is alert to self able to answer questions but becomes agitated easily when he has a loss of words. Patient currently yelling out wanting to go home. PRN medication will be administered. * D/C Planning - Wendy Mccarty - 12/31/2020 10:00 AM EDT Attempted to meet with patient. Patient did not open eyes. 1540 Nurse reports patient is throwing things in room. Plan to give ativan. CM will continue to follow and attempt dc planning. * Javy Greena, RN - 12/31/2020 9:21 AM EDT Patient in bed at present with call light and items of need in easy reach. Safety interventions remain in place. Patient alert to self and responds to name. Patient states I can't handle both of youtalking to me at the same time patient reports someone above his bed talking to him. Patient followed commands with bilat upper extremities but does not follow commands to lower extremities and falls asleep easily but will awaken and speaks gibberish. Unable to administer medication at this time d/t patient mental status of not following commands and falling to sleep during conversation. * Nursing - Maxine Bolivar RN - 12/31/2020 6:45 AM EDT Pt resting in bed. Pt somewhat complaint during the shift. Alert/oriented to self and place only. Pt belongings in reach, denies further needs. Pt's mother called and updated, all questions and concerns answered at this time. * Nursing - Mariela Figueroa RN - 12/30/2020 5:51 PM EDT Patient noted to be borderline non-compliant, easily redirectable for a few minutes, alert to self most of the time, place some of the time, situation not much and will not state the date. * Arrival Note - Mariela Figueroa RN - 12/30/2020 4:08 PM EDT Patient arrives from [facility] by bed to room 3116. Transferred to bed with the assistance of one. Patient is accompanied by nobody Patient reports no complaints Patient's current mental status alert. * Nursing - Gladis Garcia RN - 12/30/2020 3:35 PM EDT Patient resting in bed with eyes closed, patient will open up eyes and answers my questions. Bed alarm on for safety. * Gladis Horne RN - 12/30/2020 3:25 PM EDT Report called to Irene RN on 3W * D/C Planning - Andre Hubbard RN - 12/30/2020 3:21 PM EDT Attempted to do discharge planning with patient he was resting in bed with eyes closed and does notopen eyes to name being called. CM will follow for discharge needs/plan. * Gladis Horne RN - 12/30/2020 2:53 PM EDT Attempted to call report to 3W, patient to be transferred to room 3116. The receiving RN is in another patient's room. Will call back * Gladis Horne RN - 12/30/2020 2:30 PM EDT Called in to patient's room, patient is attempted to get out of bed. States he needs to use restroom. Assisted patient to bedside, but not before patient had bowel movement. Assisted tech in cleaningpatient up, changed bed, medicated patient with po ativan, bed alarm on for safety. * Gladis Horne RN - 12/30/2020 10:50 AM EDT Patient needing to use restroom, repositioned back into bed. Gave medication as ordered. Patient sitting up in bed, Zee EPREZ, orders lunch for patient. Call light in reach, bed alarm on for safety. * Gladis Horne RN - 12/30/2020 9:23 AM EDT Patient attempts to get up to use restroom. Assisted patient with the help of ANA Koch. Patient repositioned in bed, assessment completed, patient goes back to sleep, iv fluids infusing, call light in reach, bed alarm on for safety. * Gladis Horne RN - 12/30/2020 7:45 AM EDT Patient appears to be resting in bed comfortably, resps easy and unlabored, no s/s of agitation at this time. IV fluids infusing, bed alarm on for safety. * Gladis Horne RN - 12/30/2020 7:10 AM EDT Report received from Alicia VALENCIA * Alicia Cohen RN - 12/30/2020 7:07 AM EDT Report to ERIK Forbes, who assumes care * Alicia Cohen RN - 12/30/2020 6:14 AM EDT Pt is resting quietly in bed at this time. No fidgeting noted at this time. Call light in reach, padded side rails up x2 * Renata - Alicia Schaeffer RN - 12/30/2020 6:09 AM EDT Updated stress lab pt condition change and would not tolerate stress test * Alicia Cohen RN - 12/30/2020 5:00 AM EDT [facility] request * Alicia Cohen RN - 12/30/2020 4:49 AM EDT Pt cleaned of incontinent urine. Bedlinens changed. Pt is fidgety and fighting against staff tryingto turn and position him * Alicia Cohen RN - 12/30/2020 4:33 AM EDT Tory Chawla examines. Orders EKG * Quick Note - Tory Chawla APRN CNP - 12/30/2020 4:30 AM EDT Examined patient at the request of primary RN. Patient has been given several doses of Ativan for elevated CIWA scores. Patient speech is somewhat mumbling however he is able to recall that he is in the hospital at [facility] as well as the appropriate year. Tells me he is having chest pain but cannotdelineate that further. He has poor attention and falls asleep easily during conversation. He is noted to be restless in bed while he is awake. ECG reveals no acute changes. Patient continues to experience alcohol withdrawal. Continuous pulse ox ordered. Primary RN advised to continue CIWA monitoring and Ativan as needed. Given his ongoing alcohol withdrawal he will not be able to have stress testing today. Patient to be transition to [facility] service. Physical Exam Vitals and nursing note reviewed. Constitutional: Appearance: He is not diaphoretic. HENT: Head: Normocephalic. Right Ear: External ear normal. Left Ear: External ear normal. Nose: Nose normal. Eyes: General: No scleral icterus. Extraocular Movements: Extraocular movements intact. Conjunctiva/sclera: Conjunctivae normal. Neck: Vascular: No JVD. Trachea: No tracheal deviation. Cardiovascular: Rate and Rhythm: Normal rate and regular rhythm. Heart sounds: Normal heart sounds. Pulmonary: Effort: Pulmonary effort is normal. No respiratory distress. Breath sounds: Normal breath sounds. No stridor. Abdominal: General: Bowel sounds are normal. There is no distension. Palpations: Abdomen is soft. There is no mass. Tenderness: There is no abdominal tenderness. There is no guarding or rebound. Musculoskeletal: General: Normal range of motion. Cervical back: Normal range of motion. Skin: General: Skin is warm and dry. Capillary Refill: Capillary refill takes less than 2 seconds. Neurological: General: No focal deficit present. Mental Status: He is oriented to person, place, and time. Cranial Nerves: No cranial nerve deficit or facial asymmetry. Coordination: Coordination normal. Psychiatric: Attention and Perception: He is inattentive. Mood and Affect: Affect is labile. * Renata - Alicia Schaeffer RN - 12/30/2020 2:37 AM EDT Roselia Chawla updated on pt getting dose of ativan * Alicia Cohen RN - 12/30/2020 2:17 AM EDT Pt starting to slur words and states he hears kids next door trying to get In Tremors noted to hands . Ativan IM given * Alicia Cohen RN - 12/30/2020 2:09 AM EDT Pt noted to have IV pulled out, pt is fidgety in bed and sleeping with arms above head, causing tension on IV and pulled it out. New IV inserted w/o difficulty. * Nursing - lAicia Schaeffer RN - 12/29/2020 10:05 PM EDT Ambulates to BR with SBA and walker, gait wobbly. Bed alarm in place. * Nursing - Alicia Schaeffer RN - 12/29/2020 8:42 PM EDT Contacted lab for redraw of ethanol , lab reports may have been added to blood already drawn. Clarified with lab was to be a new specimen drawn, orders corrected to be STAT drawn * Nursing - Alicia Schaeffer RN - 12/29/2020 8:10 PM EDT Shift assessment complete. Pt is alert and oriented. Skin p/w/d. NAD noted. Mild tremors noted to hands this evening. Up to BR with walker, unsteady gait. SBA provided. IV fluids infusing. Padded side rails up x2,call light in reach voices no needs at present * Nursing - Gladis Garcia RN - 12/29/2020 7:17 PM EDT Report given to Alicia VALENCIA * D/C Planning - Andre Hubbard RN - 12/29/2020 3:43 PM EDT 12/29/20 1540 Alcohol use Disorders Identification Test (AUDIT) 1. How often do you have a drink containing alcohol? 4 2. How many drinks containing alcohol do you have on a typical day when you are drinking? 0 (liquor then beer) 3. How often do you have six or more drinks on one occasion? 2 4. How often during the last year have you found that you were not able to stop drinking once you had started? 0 5. How often during the last year have you failed to do what was normally expected of you because of drinking? 4 6. How often during the last year have you needed a drink in the morning to get yourself going after a heavy drinking session? 2 7. How often during the last year have you had a feeling of guilt or remorse after drinking? 0 8. How often during the last year have you been unable to remember what happened the night before because of your drinking? 3 9. Have you or someone else been injured because of your drinking? 0 10. Has a relative, friend or other health worker been concerned about your drinking or suggested you cut down? 4 AUDIT Score 19 Risk Level Zone III Patient was given Drug & ETOH booklet with in patient and out patient Rehab centers as well as online AA meetings. * Nursing - Gladis Garcia RN - 12/29/2020 2:17 PM EDT CIWI score at 6. per Ingris MANZANARES and Dr. Hancock, ok to give dose of IV ativan. * Spiritual Care - Arjun Engel CHAPLAIN - 12/29/2020 12:45 PM EDT I visited with the patient who shared with me his situation and concern over his health. He is hopeful for some answers soon and desires that we keep him in our prayers. * Nursing - Alicia Schaeffer RN - 12/29/2020 7:24 AM EDT REPORT TO MARY VALENCIA WHO ASSUMES CARE * Alicia Cohen RN - 12/29/2020 7:23 AM EDT TORY CHAWLA AWARE OF DELAY WITH STRESS TEST * Gladis Horne RN - 12/29/2020 7:12 AM EDT Report received from Alicia VALENCIA * Sheila Monroe RN - 12/29/2020 7:04 AM EDT Called CDU and spoke with Alicia regarding this patients labs. Repeat K+ after replacement is still only 3.0 and Mg is 1.5 without a recheck after replacement. ETOH level has now resulted at 361. Will hold his Lexiscan stress test for now until labs have normalized. * Alicia Cohen RN - 12/29/2020 6:16 AM EDT Pt reminded frequently through the night of need for urine specimen, pt voices I'm working on it. * Alicia Cohen RN - 12/29/2020 3:34 AM EDT Rests in bed with eyes closed. IV fluids infusing. NAD noted. Call light in reach side rails paddedand up x2. * Alicia Cohen RN - 12/28/2020 10:41 PM EDT PT IS SCHEDULED FOR STRESS TEST ON 12/29 @ 130 PM * Nursing - Alicia Schaeffer RN - 12/28/2020 10:33 PM EDT admission assessment complete. NAD noted. CIWA neg. C/o mid sternal chest pain. No SOB noted. Alertand oriented. Speech is clear. Side rails padded for safety. Call light in reach side rails up x2 * Nursing - Fidelia Thomas RN - 12/28/2020 10:24 PM EDT Critical lab ETOH 361, Roselia A MAKE UP ARRANGER aware of same * Nursing - Alicia Schaeffer RN - 12/28/2020 10:16 PM EDT Pt arrives to room 1215 from ED, ambulates to bed. NAD noted. Magnesium infusing documented in this [facility]08-09-2021 History of Present illness Narrative* Maxine Soares MD - 01/05/2021 2:55 PM EDT [facility] Medicine / [facility] Inpatient Progress Note 01/05/2021 Yonathan Fernandez [id number] Assessment/Plan: Yonathan Fernandez is a 45 y.o. male with a history of CAD, HTN, seizures, tobacco abuse, and alcohol abuse who presented to [facility] 12/28/2020 with complaints of substernal nonradiating chest pain associated with shortness of breath which occurred after mowing his lawn. Patient was initially admitted to theCDU but began withdrawing from alcohol requiring multiple doses of IV and IM Ativan. He was subsequently transferred to [facility] 1. Acute chest/epigastric pain: CXR 12/28 nonacute. troponins neg. Stress test is pending 2. Acute alcohol withdrawal with delirium: apparently drinks approximately 24-30 beers a day. BAL 361 on admit. Continue folic acid, thiamine, and multivitamin. Pt completed CIWA protocal and libriumtaper. Last week was very confused, heavily withdrawing but this week much more alert, oriented andback to himself. Stable off benzos now. 3. Decreased depth perception, dysmetria: noted by nurses on 01/04. CTH negative for acute process. MRI without acute process 01/05/21. Likely due to continued mild delerium which is clearing/ 4. Incidentally found pigmented suspicious skin lesion: on suprapubic region: Needs referral to a night supervisor or a surgeon for biopsy to rule out malignancy. This can be arranged as outpatient at discharge. 5. CAD: s/p PCI to pRCA and dRCA in 04/[address] Ross (cardio). Continued home ASA, Plavix, Lipitor, and Lopressor. 6. Essential HTN: Continued home Prinzide and Lopressor. 7. Depression/Anxiety: continued home Elavil and PRN Atarax 8. History of seizures: Follows with Dr. Garcia (neurology). Continued home Keppra 9. Code Status: Full 10. DVT Prophylaxis: Pharmacologic Current living situation: Home Expected Disposition: Home vs SNF Estimated discharge date: 01/06 is stress test unremarkable Subjective: Pt denies complaints. Says he has no sob or cp. Says he is anxious to go home soon Physical Exam: Visit Vitals BP 140/90 Pulse 68 Temp 98.2 F (36.8 C) (Oral) Resp 20 Ht 5' 4 (1.626 m) Wt 60.7 kg (133 lb 12.8 oz) SpO2 96% BMI 22.97 kg/m General: NAD Cardiovascular: Regular rate. Respiratory: Clear to auscultation Gastrointestinal: Soft, non tender Genitourinary: no suprapubic tenderness Musculoskeletal: No edema. Skin: warm, dry Neuro: no focal deficit Psych: Mood appropriate. Current Medications: amitriptyline 75 mg Oral Nightly aspirin EC 81 mg Oral Daily atorvastatin 80 mg Oral Nightly clopidogrel 75 mg Oral Daily folic acid 1 mg Oral Daily gabapentin 300 mg Oral 3x Daily lisinopril 40 mg Oral Daily before lunch And hydroCHLOROthiazide 25 mg Oral Daily before lunch levETIRAcetam 500 mg Oral 2x Daily Magnesium Oxide 400 mg Oral 2x Daily Metoprolol Tartrate 25 mg Oral 2x Daily nicotine 21 mg Transdermal Daily pantoprazole 40 mg Oral Daily potassium chloride SA 40 mEq Oral Daily thera m plus 1 tablet Oral Daily Thiamine Mononitrate 100 mg Oral Daily vitamin B-12 1,000 mcg Oral Daily Labs, Imaging and Studies reviewed: Recent Labs Lab 01/05/2142101/04/2140301/03/21 0323 HGB 11.2* 10.1* 10.2* HCT 35.6* 31.3* 31.3* PLT 334.0 258.0 217.0 Recent Labs Lab 01/05/2142101/04/214 01/03/21 032 NA 139 137 131* K 4.5 3.9 3.6 CL 107 107 106 BUN 6* 4* 3* CREATININE 0.66 0.60* 0.60* CALCIUM 9.6 8.9 8.5 LABALBU 4.0 3.8 3.6 Recent Labs Lab 01/05/2142101/04/21 0404 01/03/21 0323 ALT 32 26 21 AST 52 60* 48 ALKPHOS 133* 140* 133* BILITOT 0.5 0.5 0.6 No results for input(s): INR in the last 168 hours. * Darinel Pete MD - 01/04/2021 8:52 AM EDT [facility] Medicine / [facility] Inpatient Progress Note 01/04/2021 Yonathan Fernandez [id number] Assessment/Plan: Yonathan Fernandez is a 45 y.o. male with a history of CAD, HTN, seizures, tobacco abuse, and alcohol abuse who presented to [facility] 12/28/2020 with complaints of substernal nonradiating chest pain associated with shortness of breath which occurred after mowing his lawn. Patient was initially admitted to theCDU but began withdrawing from alcohol requiring multiple doses of IV and IM Ativan. He was subsequently transferred to [facility] 1. Acute chest/epigastric pain: Personally reviewed CXR which was non acute.Troponin cycled and negative. Likely alcoholic gastritis. However due to hx of CAD went ahead and ordered Lexiscan stress and echo once through withdrawal. 2. Acute alcohol withdrawal with delirium: apparently drinks approximately 24-30 beers a day. BAL 361 on admit. Continue folic acid, thiamine, and multivitamin. Started on Librium 25 every 6 scheduled x72 hours.CIWA protocols with PRN Ativan. workforce services representative consulted for alcohol audit and information regarding rehabilitation after discharge/community resources 3. Hypokalemia and Hypomagnesemia: replaced per protocol 4. Decreased depth perception, dysmetria: noted by nurses on 01/04. CTH ordered. PT/OT 5. Incidentally found pigmented suspicious skin lesion: on suprapubic region: Needs referral to a night supervisor or a surgeon for biopsy to rule out malignancy. This can be arranged as outpatient at discharge. 6. CAD: s/p PCI to pRCA and dRCA in 04/[address] Ross (cardio). Continued home ASA, Plavix, Lipitor, and Lopressor. 7. Essential HTN: Continued home Prinzide and Lopressor. 8. Hyperlipidemia: Continued home Lipitor. 9. Tobacco Abuse: current everyday smoker with 16.5 pack year history. NRT. Cessation education provided. 10. Depression/Anxiety: continued home Elavil and PRN Atarax 11. History of seizures: Follows with Dr. Garcia (neurology). Continued home Keppra 12. Code Status: Full 13. DVT Prophylaxis: Pharmacologic Current living situation: Home Expected Disposition: Home vs SNF Estimated discharge date: 1-2 days Subjective: Patient was seen on rounds sitting in the recliner with sitter at bedside eating his breakfast. He continues to improve after going through withdrawal. Nursing staff report patient has decreased depth perception when he attempts to reach for something he misses. He does have some gait dysfunction will get CT head. He agrees that he is deconditioned will await for PT reevaluation for safe dispo. Physical Exam: Visit Vitals BP 124/79 (Patient Position: Lying) Pulse 71 Temp 98.3 F (36.8 C) (Oral) Resp 18 Ht 5' 4 (1.626 m) Wt 63.5 kg (140 lb) SpO2 93% BMI 24.03 kg/m General: NAD Cardiovascular: Regular rate. Respiratory: Clear to auscultation Gastrointestinal: Soft, non tender Genitourinary: no suprapubic tenderness Musculoskeletal: No edema. Skin: warm, dry Neuro: Awake alert. Tremors improved. 5/5 strength in all extremities. Dysmetria noted. Psych: Mood appropriate. Current Medications: amitriptyline 75 mg Oral Nightly aspirin EC 81 mg Oral Daily atorvastatin 80 mg Oral Nightly clopidogrel 75 mg Oral Daily folic acid 1 mg Oral Daily gabapentin 300 mg Oral 3x Daily lisinopril 40 mg Oral Daily before lunch And hydroCHLOROthiazide 25 mg Oral Daily before lunch levETIRAcetam 500 mg Oral 2x Daily Magnesium Oxide 400 mg Oral 2x Daily Metoprolol Tartrate 25 mg Oral 2x Daily nicotine 21 mg Transdermal Daily pantoprazole 40 mg Oral Daily potassium chloride SA 40 mEq Oral Daily thera m plus 1 tablet Oral Daily Thiamine Mononitrate 100 mg Oral Daily vitamin B-12 1,000 mcg Oral Daily Labs, Imaging and Studies reviewed: Recent Labs Lab 01/04/21 0404 01/03/21 0323 01/02/21 0603 HGB 10.1* 10.2* 10.1* HCT 31.3* 31.3* 30.6* PLT 258.0 217.0 173.0 Recent Labs Lab 01/04/21 0404 01/03/21 0323 01/02/21 0603 NA 137 131* 134* K 3.9 3.6 3.5* CL 107 106 106 BUN 4* 3* 3* CREATININE 0.60* 0.60* 0.46* CALCIUM 8.9 8.5 8.0* LABALBU 3.8 3.6 3.5 Recent Labs Lab 01/04/21 0404 01/03/21 0323 01/02/21 0603 ALT 26 21 23 AST 60* 48 65* ALKPHOS 140* 133* 137* BILITOT 0.5 0.6 1.0 No results for input(s): INR in the last 168 hours. * Darinel Pete MD - 01/03/2021 11:19 AM EDT [facility] / [facility] Inpatient Progress Note 01/03/2021 Yonathan Fernandez 1975 [id number] Assessment/Plan: Yonathan Fernandez is a 45 y.o. male with a history of CAD, HTN, seizures, tobacco abuse, and alcohol abuse who presented to [facility] 12/28/2020 with complaints of substernal nonradiating chest pain associated with shortness of breath which occurred after mowing his lawn. Patient was initially admitted to theCDU but began withdrawing from alcohol requiring multiple doses of IV and IM Ativan. He was subsequently transferred to [facility] 1. Acute chest/epigastric pain: Personally reviewed CXR which was non acute.Troponin cycled and negative. Likely alcoholic gastritis. However due to hx of CAD went ahead and ordered Lexiscan stress and echo once through withdrawal. 2. Acute alcohol withdrawal with delirium: apparently drinks approximately 24-30 beers a day. BAL 361 on admit. Continue folic acid, thiamine, and multivitamin. Started on Librium 25 every 6 scheduled x72 hours.CIWA protocols with PRN Ativan. workforce services representative consulted for alcohol audit and information regarding rehabilitation after discharge/community resources 3. Hypokalemia and Hypomagnesemia: replaced per protocol 4. Incidentally found pigmented suspicious skin lesion: on suprapubic region: Needs referral to a night supervisor or a surgeon for biopsy to rule out malignancy. This can be arranged as outpatient at discharge. 5. CAD: s/p PCI to pRCA and dRCA in 04/[address] Ross (cardio). Continued home ASA, Plavix, Lipitor, and Lopressor. 6. Essential HTN: Continued home Prinzide and Lopressor. 7. Hyperlipidemia: Continued home Lipitor. 8. Tobacco Abuse: current everyday smoker with 16.5 pack year history. NRT. Cessation education provided. 9. Depression/Anxiety: continued home Elavil and PRN Atarax 10. History of seizures: Follows with Dr. Garcia (neurology). Continued home Keppra 11. Code Status: Full 12. DVT Prophylaxis: Pharmacologic Current living situation: Home Expected Disposition: Home Estimated discharge date: 1-2 days Subjective: Patient was seen on rounds awake and alert and I was finally able to have a conversation with him. He stated he was in [place] and it was [place]. He denied any chest pain currently. He wants to go he has to get back to work. 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 I toldhim he is not safe to be discharged he has periods of confusion and his withdrawal is finally starting to improve. I explained to him that his on presentation was complaining of chest pain and cardiology recommended a stress test to rule out any ischemia with his history of CAD. He seemed to get upset stating he does not want to stay here his work is telling him that he has to get back I told himwe can give him schedule to state that he was being hospitalized. Physical Exam: Visit Vitals BP 118/69 (Patient Position: Lying) Pulse 90 Temp 98.5 F (36.9 C) (Oral) Resp 18 Ht 5' 4 (1.626 m) Wt 63.5 kg (140 lb) SpO2 93% BMI 24.03 kg/m General: NAD Cardiovascular: Regular rate. Respiratory: Clear to auscultation Gastrointestinal: Soft, non tender Genitourinary: no suprapubic tenderness Musculoskeletal: No edema. Skin: warm, dry Neuro: Awake alert to self thought it was 2019. Tremors improved. 5/5 strength in all extremities Psych: Agitated. Current Medications: amitriptyline 75 mg Oral Nightly aspirin EC 81 mg Oral Daily atorvastatin 80 mg Oral Nightly clopidogrel 75 mg Oral Daily folic acid 1 mg Oral Daily gabapentin 300 mg Oral 3x Daily lisinopril 40 mg Oral Daily before lunch And hydroCHLOROthiazide 25 mg Oral Daily before lunch levETIRAcetam 500 mg Oral 2x Daily Magnesium Oxide 400 mg Oral Daily Metoprolol Tartrate 25 mg Oral 2x Daily nicotine 21 mg Transdermal Daily pantoprazole 40 mg Oral Daily KCl 40 mEq with lidocaine in D-5% 250 mL IVPB 40 mEq Intravenous Once potassium chloride SA 40 mEq Oral Daily thera m plus 1 tablet Oral Daily Thiamine Mononitrate 100 mg Oral Daily vitamin B-12 1,000 mcg Oral Daily Labs, Imaging and Studies reviewed: Recent Labs Lab 01/03/21 0323 01/02/21 0603 01/01/21 0408 HGB 10.2* 10.1* 10.2* HCT 31.3* 30.6* 31.3* PLT 217.0 173.0 122.0* Recent Labs Lab 01/03/21 0323 01/02/21 0603 01/01/21 0408 NA 131* 134* 133* K 3.6 3.5* 3.7 CL 106 106 103 BUN 3* 3* 4* CREATININE 0.60* 0.46* 0.44* CALCIUM 8.5 8.0* 8.2* LABALBU 3.6 3.5 3.6 Recent Labs Lab 01/03/21 0323 01/02/21 0603 01/01/21 0408 ALT 21 23 28 AST 48 65* 105* ALKPHOS 133* 137* 132* BILITOT 0.6 1.0 1.3 No results for input(s): INR in the last 168 hours. * Darinel Pete MD - 01/02/2021 2:25 PM EDT [facility] / [facility] Inpatient Progress Note 01/02/2021 Yonathan Ceballosell 1975 [id number] Assessment/Plan: Yonathan Fernandez is a 45 y.o. male with a history of CAD, HTN, seizures, tobacco abuse, and alcohol abuse who presented to [facility] 12/28/2020 with complaints of substernal nonradiating chest pain associated with shortness of breath which occurred after mowing his lawn. Patient was initially admitted to theCDU but began withdrawing from alcohol requiring multiple doses of IV and IM Ativan. He was subsequently transferred to [facility] 1. Acute chest/epigastric pain: Personally reviewed CXR which was non acute.Troponin cycled and negative. Likely alcoholic gastritis. However due to hx of CAD went ahead and ordered Lexiscan stress and echo once through withdrawal. 2. Acute alcohol withdrawal with delirium: apparently drinks approximately 24-30 beers a day. BAL 361 on admit. Continue folic acid, thiamine, and multivitamin. Started on Librium 25 every 6 scheduled x72 hours.CIWA protocols with PRN Ativan. workforce services representative consulted for alcohol audit and information regarding rehabilitation after discharge/community resources 3. Hypokalemia and Hypomagnesemia: replaced per protocol 4. Incidentally found pigmented suspicious skin lesion: on suprapubic region: Needs referral to a night supervisor or a surgeon for biopsy to rule out malignancy. This can be arranged as outpatient at discharge. 5. CAD: s/p PCI to pRCA and dRCA in 04/[address] Ross (cardio). Continued home ASA, Plavix, Lipitor, and Lopressor. 6. Essential HTN: Continued home Prinzide and Lopressor. 7. Hyperlipidemia: Continued home Lipitor. 8. Tobacco Abuse: current everyday smoker with 16.5 pack year history. NRT. Cessation education provided. 9. Depression/Anxiety: continued home Elavil and PRN Atarax 10. History of seizures: Follows with Dr. Garcia (neurology). Continued home Keppra 11. Code Status: Full 12. DVT Prophylaxis: Pharmacologic Current living situation: Home Expected Disposition: Home Estimated discharge date: 2-3 days Subjective: Patient was seen on rounds in this morning sleeping soundly in bed with one-to-one sitter at bedside. He was in no distress. Called out his name 3 or 4 times he did not wake up. Snoring loudly. Physical Exam: Visit Vitals BP (!) 193/100 (Patient Position: Lying) Comment: rn notified Pulse 66 Temp 97.5 F (36.4 C) (Axillary) Resp 18 Ht 5' 4 (1.626 m) Wt 60.8 kg (134 lb 1.6 oz) SpO2 95% BMI 23.02 kg/m General: NAD Cardiovascular: Regular rate. Respiratory: Clear to auscultation Gastrointestinal: Soft, non tender Genitourinary: no suprapubic tenderness Musculoskeletal: No edema. Skin: warm, dry Neuro: Awake alert. Tremors present Psych: Agitated. Current Medications: amitriptyline 75 mg Oral Nightly aspirin EC 81 mg Oral Daily atorvastatin 80 mg Oral Nightly chlordiazePOXIDE 25 mg Oral 4 times per day clopidogrel 75 mg Oral Daily folic acid 1 mg Oral Daily gabapentin 300 mg Oral 3x Daily lisinopril 40 mg Oral Daily before lunch And hydroCHLOROthiazide 25 mg Oral Daily before lunch levETIRAcetam 500 mg Oral 2x Daily Magnesium Oxide 400 mg Oral Daily Metoprolol Tartrate 25 mg Oral 2x Daily nicotine 21 mg Transdermal Daily pantoprazole 40 mg Oral Daily potassium chloride SA 40 mEq Oral Daily thera m plus 1 tablet Oral Daily Thiamine Mononitrate 100 mg Oral Daily vitamin B-12 1,000 mcg Oral Daily Labs, Imaging and Studies reviewed: Recent Labs Lab 01/02/21 0603 01/01/21 0408 12/31/20 0320 HGB 10.1* 10.2* 10.2* HCT 30.6* 31.3* 30.9* PLT 173.0 122.0* 90.0* Recent Labs Lab 01/02/21 0603 01/01/21 0408 12/31/20 0320 NA 134* 133* 133* K 3.5* 3.7 3.8 CL 106 103 103 BUN 3* 4* 3* CREATININE 0.46* 0.44* 0.47* CALCIUM 8.0* 8.2* 8.8 LABALBU 3.5 3.6 3.8 Recent Labs Lab 01/02/21 0601/01/21 0408 12/31/20 0320 ALT 23 28 28 AST 65* 105* 138* ALKPHOS 137* 132* 121 BILITOT 1.0 1.3 1.5 No results for input(s): INR in the last 168 hours. * Darinel Pete MD - 01/01/2021 8:52 AM EDT [facility] / [facility] Inpatient Progress Note 01/01/2021 Yonathan Tai Slick 1975 [id number] Assessment/Plan: Yonathantaisha Fernandez is a 45 y.o. male with a history of CAD, HTN, seizures, tobacco abuse, and alcohol abuse who presented to [facility] 12/28/2020 with complaints of substernal nonradiating chest pain associated with shortness of breath which occurred after mowing his lawn. Patient was initially admitted to theCDU but began withdrawing from alcohol requiring multiple doses of IV and IM Ativan. He was subsequently transferred to [facility] 1. Acute chest/epigastric pain: Troponin cycled and negative. Likely alcoholic gastritis. However due to hx of CAD went ahead and ordered Lexiscan stress and echo once through withdrawal. 2. Acute alcohol withdrawal with delirium: apparently drinks approximately 24-30 beers a day. BAL 361 on admit. Continue folic acid, thiamine, and multivitamin. Started on Librium 25 every 6 scheduled x72 hours.CIWA protocols with PRN Ativan. workforce services representative consulted for alcohol audit and information regarding rehabilitation after discharge/community resources 3. Hypokalemia and Hypomagnesemia: replaced per protocol 4. Incidentally found pigmented suspicious skin lesion: on suprapubic region: Needs referral to a night supervisor or a surgeon for biopsy to rule out malignancy. This can be arranged as outpatient at discharge. 5. CAD: s/p PCI to pRCA and dRCA in 04/[address] Ross (cardio). Continued home ASA, Plavix, Lipitor, and Lopressor. 6. Essential HTN: Continued home Prinzide and Lopressor. 7. Hyperlipidemia: Continued home Lipitor. 8. Tobacco Abuse: current everyday smoker with 16.5 pack year history. NRT. Cessation education provided. 9. Depression/Anxiety: continued home Elavil and PRN Atarax 10. History of seizures: Follows with Dr. Garcia (neurology). Continued home Keppra 11. Code Status: Full 12. DVT Prophylaxis: Pharmacologic Current living situation: Home Expected Disposition: Home Estimated discharge date: 2-3 days Subjective: In bed with visible tremors, talks to himself with incomprehensible speech. Uses profanity at timeswhen he gets frustrated at my line of questioning for asking orientation questions. Physical Exam: Visit Vitals BP 142/88 (Patient Position: Lying) Pulse 74 Temp 98.1 F (36.7 C) (forehead) Resp 22 Ht 5' 4 (1.626 m) Wt 62 kg (136 lb 9.6 oz) SpO2 96% BMI 23.45 kg/m General: NAD Cardiovascular: Regular rate. Respiratory: Clear to auscultation Gastrointestinal: Soft, non tender Genitourinary: no suprapubic tenderness Musculoskeletal: No edema. Skin: warm, dry Neuro: Awake alert. Tremors present Psych: Agitated. Current Medications: amitriptyline 75 mg Oral Nightly aspirin EC 81 mg Oral Daily atorvastatin 80 mg Oral Nightly chlordiazePOXIDE 25 mg Oral 4 times per day clopidogrel 75 mg Oral Daily folic acid 1 mg Oral Daily gabapentin 300 mg Oral 3x Daily lisinopril 40 mg Oral Daily before lunch And hydroCHLOROthiazide 25 mg Oral Daily before lunch levETIRAcetam 500 mg Oral 2x Daily Magnesium Oxide 400 mg Oral Daily Metoprolol Tartrate 25 mg Oral 2x Daily nicotine 21 mg Transdermal Daily pantoprazole 40 mg Oral Daily potassium chloride SA 40 mEq Oral Daily thera m plus 1 tablet Oral Daily Thiamine Mononitrate 100 mg Oral Daily vitamin B-12 1,000 mcg Oral Daily Labs, Imaging and Studies reviewed: Recent Labs Lab 01/01/21 0408 12/31/20 0320 12/30/20 1142 HGB 10.2* 10.2* 9.7* HCT 31.3* 30.9* 29.4* PLT 122.0* 90.0* 73.0* Recent Labs Lab 01/01/21 0408 12/31/20 0320 12/30/20 1142 12/28/20 2318 NA 133* 133* 132* -- K 3.7 3.8 3.5* -- CL 103 103 104 -- BUN 4* 3* 4* -- CREATININE 0.44* 0.47* 0.46* -- CALCIUM 8.2* 8.8 8.1* -- LABALBU 3.6 3.8 -- 3.8 Recent Labs Lab 01/01/21 0408 12/31/20 0320 12/28/20 2318 ALT 28 28 22 AST 105* 138* 96* ALKPHOS 132* 121 121 BILITOT 1.3 1.5 0.6 No results for input(s): INR in the last 168 hours. * Darinel Pete MD - 12/31/2020 8:20 AM EDT [facility] Medicine / [facility] Inpatient Progress Note 12/31/2020 Yonathan Fernandez 1975 [id number] Assessment/Plan: Yonathan Fernandez is a 45 y.o. male with a history of CAD, HTN, seizures, tobacco abuse, and alcohol abuse who presented to [facility] 12/28/2020 with complaints of substernal nonradiating chest pain associated with shortness of breath which occurred after mowing his lawn. Patient was initially admitted to theCDU but began withdrawing from alcohol requiring multiple doses of IV and IM Ativan. He was subsequently transferred to [facility] 1. Acute chest/epigastric pain: Troponin cycled and negative. Likely alcoholic gastritis. However due to hx of CAD went ahead and ordered Lexiscan stress and echo once through withdrawal. 2. Acute alcohol withdrawal with delirium: apparently drinks approximately 24-30 beers a day. BAL 361 on admit. Continue folic acid, thiamine, and multivitamin. Started on Librium 25 every 6 scheduled x72 hours.CIWA protocols with PRN Ativan. workforce services representative consulted for alcohol audit and information regarding rehabilitation after discharge/community resources 3. Hypokalemia and Hypomagnesemia: replaced per protocol 4. Incidentally found pigmented suspicious skin lesion: on suprapubic region: Needs referral to a night supervisor or a surgeon for biopsy to rule out malignancy. This can be arranged as outpatient at discharge. 5. CAD: s/p PCI to pRCA and dRCA in 04/[address] Ross (cardio). Continued home ASA, Plavix, Lipitor, and Lopressor. 6. Essential HTN: Continued home Prinzide and Lopressor. 7. Hyperlipidemia: Continued home Lipitor. 8. Tobacco Abuse: current everyday smoker with 16.5 pack year history. NRT. Cessation education provided. 9. Depression/Anxiety: continued home Elavil and PRN Atarax 10. History of seizures: Follows with Dr. Garcia (neurology). Continued home Keppra 11. Code Status: Full 12. DVT Prophylaxis: Pharmacologic Current living situation: Home Expected Disposition: Home Estimated discharge date: 01/02/2021 Subjective: In bed with visible tremors. Opens eyes to voice but quickly falls back asleep. Physical Exam: Visit Vitals BP 130/77 (Patient Position: Lying) Pulse 85 Temp 97.5 F (36.4 C) (forehead) Resp 20 Ht 5' 4 (1.626 m) Wt 62 kg (136 lb 9.6 oz) SpO2 96% BMI 23.45 kg/m General: NAD Cardiovascular: Regular rate. Respiratory: Clear to auscultation Gastrointestinal: Soft, non tender Genitourinary: no suprapubic tenderness Musculoskeletal: No edema. Skin: warm, dry Neuro: sleepy. Tremors present Psych: Mood appropriate. Current Medications: amitriptyline 75 mg Oral Nightly aspirin EC 81 mg Oral Daily atorvastatin 80 mg Oral Nightly chlordiazePOXIDE 25 mg Oral 4 times per day clopidogrel 75 mg Oral Daily folic acid 1 mg Oral Daily gabapentin 300 mg Oral 3x Daily lisinopril 40 mg Oral Daily before lunch And hydroCHLOROthiazide 25 mg Oral Daily before lunch levETIRAcetam 500 mg Oral 2x Daily Magnesium Oxide 400 mg Oral Daily Metoprolol Tartrate 25 mg Oral 2x Daily nicotine 21 mg Transdermal Daily pantoprazole 40 mg Oral Daily potassium chloride SA 40 mEq Oral Daily thera m plus 1 tablet Oral Daily Thiamine Mononitrate 100 mg Oral Daily vitamin B-12 1,000 mcg Oral Daily Labs, Imaging and Studies reviewed: Recent Labs Lab 12/31/20 03212/30/20 1142 12/29/20 0204 HGB 10.2* 9.7* 10.4* HCT 30.9* 29.4* 30.5* PLT 90.0* 73.0* 78.0* Recent Labs Lab 12/31/20 03212/30/20 1142 12/29/20 1447 12/29/20 0204 12/28/20 2318 NA 133* 132* -- 139 -- K 3.8 3.5* 3.9 3.0* -- CL 103 104 -- 104 -- BUN 3* 4* -- 5* -- CREATININE 0.47* 0.46* -- 0.57* -- CALCIUM 8.8 8.1* -- 7.5* -- LABALBU 3.8 -- -- -- 3.8 Recent Labs Lab 12/31/200 12/28/20 2318 ALT 28 22 AST 138* 96* ALKPHOS 121 121 BILITOT 1.5 0.6 No results for input(s): INR in the last 168 hours. * Ingris Gustafson APRN MAKE UP ARRANGER - 12/29/2020 2:03 PM EDT Progress Note Hospital Day: 0 Principle Problem: Acute chest pain Assessment/Plan: Principal Problem: Acute chest pain - 3 negative trop. Stress test rescheduled given abnormal electrolytes Active Problems: Tobacco abuse - counseled Acute alcohol intoxication, uncomplicated (HCC) - resolved Alcohol abuse - [facility] protocol Coronary artery disease involving [place] coronary artery of [place] heart with angina pectoris (HCC)- stress test scheduled for 12/30/20 Elevated lipase - continues to trend down, [id number]. Disposition Home Plan for disposition Continue Hospitalization Disease course Improving DVT Prophylaxis (From admission, onward) SCD Knee Sleeves and Pump Bilateral Lower Extremities CONTINUOUS All Active Lines: Patient Circulatory Lines Status Active PICC Line / CVC Line / PIV Line / Intraosseous Line / Epidural Line / ART Line / Line / Tunneled CVC / Port Name: Placement date: Placement time: Site: Days: Peripheral IV 12/28/20 Left;Anterior Forearm 20 G 12/28/202009 less than 1 Central Lines and [place] with Indications of Use: * No LDAs found * Review of Systems Constitutional: Negative for chills and fever. HENT: Negative for congestion and sinus pain. Eyes: Negative for blurred vision and discharge. Respiratory: Negative for cough and shortness of breath. Cardiovascular: Positive for chest pain. Negative for leg swelling. Gastrointestinal: Negative for abdominal pain, nausea and vomiting. Genitourinary: Negative for dysuria and urgency. Musculoskeletal: Negative for back pain and joint pain. Skin: Negative for itching and rash. Neurological: Positive for tremors. Negative for dizziness and headaches. Psychiatric/Behavioral: Negative for hallucinations. The patient is not nervous/anxious. Interval History: Pt tremulous in bed, tolerating PO intake. Advised primary RN to check CIWA regularly and medicate per protocol. Pt c/o / mid sternal chest pain that stays there and does not radiate. Will continue to replace electrolytes and tentatively schedule stress test for 12/30/20. Objective: Vital signs in last 24 hours: Visit Vitals BP 142/82 (Patient Position: Lying) Pulse 76 Temp 97.9 F (36.6 C) (forehead) Resp 18 Ht 5' 4 (1.626 m) Wt 61.1 kg (134 lb 12.8 oz) SpO2 95% BMI 23.14 kg/m . I/O last 3 completed shifts: In: 1399 [P.O.:400; IV Piggyback:999] Out: 0 Physical Exam Vitals and nursing note reviewed. Constitutional: Appearance: He is not diaphoretic. HENT: Head: Normocephalic and atraumatic. Right Ear: External ear normal. Left Ear: External ear normal. Nose: Nose normal. No congestion. Mouth/Throat: Mouth: Mucous membranes are dry. Pharynx: Oropharynx is clear. Eyes: Extraocular Movements: Extraocular movements intact. Conjunctiva/sclera: Conjunctivae normal. Cardiovascular: Rate and Rhythm: Normal rate and regular rhythm. Pulses: Normal pulses. Heart sounds: Normal heart sounds. Pulmonary: Effort: Pulmonary effort is normal. Breath sounds: Normal breath sounds. Abdominal: General: Bowel sounds are normal. Palpations: Abdomen is soft. Tenderness: There is no abdominal tenderness. Musculoskeletal: General: No tenderness. Normal range of motion. Cervical back: Normal range of motion and neck supple. Lymphadenopathy: Cervical: No cervical adenopathy. Skin: General: Skin is warm and dry. Capillary Refill: Capillary refill takes less than 2 seconds. Neurological: General: No focal deficit present. Mental Status: He is alert and oriented to person, place, and time. Sensory: Sensation is intact. Motor: Tremor present. Coordination: Coordination is intact. Gait: Gait is intact. Psychiatric: Mood and Affect: Affect normal. Behavior: Behavior normal. Judgment: Judgment normal. Ingris Clark APRN NP Advanced directives/careplan- full code Reviewed case with collaborating physician Dr. Hancock. Ingris Clark APRN MAKE UP ARRANGER documented in this [facility]08-03-2021 History and physical note* Arjun Leon NP - 12/30/2020 6:30 AM EDT [facility] Medicine / [facility] History and Physical 12/30/20 Yonathan Fernandez 1975 [id number] Assessment/Plan: Yonathan Fernandez is a 45 y.o. male with a history of CAD, HTN, seizures, tobacco abuse, and alcohol abuse who presented to [facility] 12/28/2020 with complaints of substernal nonradiating chest pain associated with shortness of breath which occurred after mowing his lawn. Patient was initially admitted to theCDU but began withdrawing from alcohol requiring multiple doses of IV and IM Ativan. He was subsequently transferred to [facility] 1. Acute chest pain: Troponin cycled and negative. Lexiscan stress echo once through withdrawal. 2. Acute alcohol withdrawal with delirium: history of abuse and dependence. Continue folic acid, thiamine, and multivitamin. CIWA protocols with PRN Ativan. Supportive care. workforce services representative consultedfor alcohol audit and information regarding rehabilitation after discharge/community resources 3. CAD: s/p PCI to pRCA and dRCA in 04/[address] Ross (cardio). Continued home ASA, Plavix, Lipitor, and Lopressor. 4. Essential HTN: Continued home Prinzide and Lopressor. 5. Hyperlipidemia: Continued home Lipitor. 6. Tobacco Abuse: current everyday smoker with 16.5 pack year history. NRT. Cessation education provided. 7. Depression/Anxiety: continued home Elavil and PRN Atarax 8. History of seizures: Follows with Dr. Garcia (neurology). Continued home Keppra 9. Code Status: Full 10. DVT Prophylaxis: Pharmacologic Current living situation: Home Expected Disposition: Home Estimated discharge date: 01/01/2021 Chief Complaint: Acute chest pain, alcohol withdrawal History of Present Illness: Yonathan Fernandez is a 45 y.o. male with a history of CAD, HTN, seizures, tobacco abuse, and alcohol abuse who presented to [facility] 12/28/2020 with complaints of substernal nonradiating chest pain associated with shortness of breath which occurred after mowing his lawn. Patient was initially admitted to theCDU but began withdrawing from alcohol requiring multiple doses of IV and IM Ativan. He was subsequently transferred to [facility] ROS: Unable to perform a complete review of systems due to withdrawal, delirium Past Medical, Surgical, Social, Family History: Past Medical History: Diagnosis Date Alcohol abuse Fall 11/16/2020 Hyperlipidemia Hypertension Myocardial infarct (HCC) Seizures (HCC) Past Surgical History: Procedure Laterality Date arm surgery CORONARY ANGIOPLASTY WITH STENT PLACEMENT CORONARY ANGIOPLASTY WITH STENT PLACEMENT HERNIA REPAIR TONSILLECTOMY VASECTOMY Social History Socioeconomic History Marital status: Single Spouse name: Not on file Number of children: Not on file Years of education: Not on file Highest education level: Not on file Occupational History Not on file Tobacco Use Smoking status: Current Every Day Smoker Packs/day: 1.00 Years: 20.00 Pack years: 20.00 Types: Cigarettes Smokeless tobacco: Never Used Vaping Use Vaping Use: Never used Substance and Sexual Activity Alcohol use: Yes Comment: 12 pack on Fridays Drug use: No Sexual activity: Yes Partners: Female control/protection: Surgical Other Topics Concern Not on file Social History Narrative Not on file Social Determinants of Health Financial Resource Strain: Difficulty of Paying Living Expenses: Food Insecurity: Worried About Running Out of Food in the Last Year: Ran Out of Food in the Last Year: Transportation Needs: Lack of Transportation (Medical): Lack of Transportation (Non-Medical): Physical Activity: Days of Exercise per Week: Minutes of Exercise per Session: Stress: Feeling of Stress : Social Connections: Frequency of Communication with Friends and Family: Frequency of Social Gatherings with Friends and Family: Attends [employer] Services: Active Member of Clubs or Organizations: Attends Club or Organization Meetings: Marital Status: Intimate Partner Violence: Fear of Current or Ex-Partner: Emotionally Abused: Physically Abused: Sexually Abused: Family History Problem Relation Age of Onset Diabetes Maternal Grandfather Home Medications: No current facility-administered medications on file prior to encounter. Current Outpatient Medications on File Prior to Encounter Medication Sig Dispense Refill albuterol 108 (90 Base) MCG/ACT inhaler INHALE 2 PUFFS INTO THE LUNGS EVERY 4 HOURS NEEDED FOR WHEEZING AND/OR SHORTNESS OF BREATH. 18 g 4 amitriptyline (ELAVIL) 75 MG tablet TAKE 1 TABLET BY MOUTH NIGHTLY. 30 tablet 6 aspirin EC (ECOTRIN LOW STRENGTH) 81 MG EC tablet Take 1 tablet by mouth daily. 30 tablet 1 atorvastatin (LIPITOR) 80 MG tablet TAKE 1 TABLET BY MOUTH NIGHTLY. 30 tablet 11 Blood Pressure Monitoring (BLOOD PRESSURE CUFF) MISC Use PRN 1 each 0 clopidogrel (PLAVIX) 75 MG tablet TAKE 1 TABLET BY MOUTH DAILY. 30 tablet 2 folic acid (FOLVITE) 1 MG tablet Take 1 tablet by mouth daily. 30 tablet 1 gabapentin (NEURONTIN) 300 MG capsule TAKE 1 CAPSULE BY MOUTH 3 TIMES DAILY. 90 capsule 2 hydrOXYzine (ATARAX) 50 MG tablet Take 1 tablet by mouth every 6 hours as needed for Anxiety (for MILD anxiety- patient reported anxiety 1-4). 30 tablet 0 levETIRAcetam (KEPPRA) 500 MG tablet Take 1 tablet by mouth two times a day. 120 tablet 3 lisinopril-hydrochlorothiazide (PRINZIDE,ZESTORETIC) 20-12.5 MG per tablet TAKE 2 TABLETS BY MOUTH DAILY. 60 tablet 6 Magnesium Oxide (MAG-OX) 400 (241.3 Mg) MG tablet Take 1 tablet by mouth daily. 30 tablet 0 Metoprolol Tartrate (LOPRESSOR) 25 MG tablet TAKE 1 TABLET BY MOUTH TWO TIMES A DAY. 60 tablet 2 pantoprazole (PROTONIX) 40 MG tablet TAKE 1 TABLET BY MOUTH DAILY. 30 tablet 2 potassium chloride SA (K-DUR,KLOR-CON M20) 20 MEQ tablet Take 2 tablets by mouth daily. 30 tablet 0 sildenafil (VIAGRA) 100 MG tablet Take 1 tablet by mouth daily as needed. 30 tablet 6 Thiamine HCl (B-1) 100 MG TABS TAKE 1 TABLET BY MOUTH DAILY. 30 tablet 3 vitamin B-12 (CYANOCOBALAMIN) 1000 MCG tablet TAKE ONE TABLET BY MOUTH ONCE DAILY 30 tablet 3 No Known Allergies Physical Exam: Visit Vitals BP 109/75 (Patient Position: Lying) Pulse 78 Temp 98.5 F (36.9 C) (forehead) Resp 18 Ht 5' 4 (1.626 m) Wt 62.1 kg (137 lb) SpO2 95% BMI 23.52 kg/m General: NAD Eyes: EOMI ENT: neck supple Cardiovascular: Regular rate. Respiratory: Clear to auscultation Gastrointestinal: Soft, non tender Genitourinary: no suprapubic tenderness Musculoskeletal: No edema Skin: warm, dry Neuro: Delirious, + tremors Psych: Unable to evaluate, ; sporadically reaches out and attempts to grab things from the air which are not there, visual hallucinations Labs, Imaging, and Studies reviewed: Recent Labs Lab 12/29/2020312/28/202009 HGB 10.4* 12.0* HCT 30.5* 34.3* PLT 78.0* 92.0* Recent Labs Lab 12/29/20 1447 12/29/20 0204 12/28/20 2318 12/28/202009 NA -- 139 -- 138 K 3.9 3.0* -- 3.0* CL -- 104 -- 99 BUN -- 5* -- 5* CREATININE -- 0.57* -- 0.55* CALCIUM -- 7.5* -- 8.4 LABALBU -- -- 3.8 -- Recent Labs Lab 12/28/202317 ALT 22 AST 96* ALKPHOS 121 BILITOT 0.6 No results for input(s): INR in the last 168 hours. Associated attestation - Araceli Mcbride MD - 12/30/2020 9:44 PM EDT [facility] HOSPITALIST SERVICE ATTENDING PHYSICIAN ATTESTATION NOTE I have personally seen and examined the patient earlier independently of LUZMA Howell provider, and have personally discussed the case with the provider. I agree with the history, examination, assessment, and plan, except as documented below: Date Of Service: 12/30/2020 Pertinent History/ Edit: Pt was interviewed and examined at bedside with all appropriate PPE during COVID-19 Pandemic 45-year-old male patient who has been drinking since 12 years of age presented emergency departmentand initially admitted to CDU. Apparently complained of chest pain. Patient story however has evolved over time. During my evaluation he tells me that he is afraid his having bilateral hernia. This prompted an examination in his groin area by me in the presence of a ice maker and then noted to havea irregular pigmented lesion in the suprapubic region which eventually will need biopsied. Patient appears to be delirious. Could not get much of history from him. He appears anxious and actively withdrawing from alcohol and at present time denying any chest pain. However he did tell me that he drinks about 24-30 beers a day. Denied ever going through any meaningful Baeza of sobriety. ROS: Total of 14 systems were reviewed & beside the pertinence given above the remainder is negative. Physical exam: height is 5' 4 (1.626 m) and weight is 62.1 kg (137 lb). His oral temperature is 98.2 F (36.8 C). His blood pressure is 128/90 and his pulse is 86. His respiration is 18 and oxygen saturation is 97%. General: NAD, agitated and tremulous Eyes: EOMI ENT: neck supple Cardiovascular: Regular rate. Respiratory: Clear to auscultation Gastrointestinal: Soft, epigastric tender, no inguinal hernia Genitourinary: no suprapubic tenderness Musculoskeletal: No edema Skin: warm, dry, suprapubic region with pigment lesion that needs biopsied Neuro: Alert. Slightly agitated and tremulous, flapping tremor Psych: Mood appears anxious Assessment/Plan: Acute severe alcohol withdrawal with delirium: Apparently drinks approximately 24-30 beers a day. Currently on CIWA protocol which may not be adequate for this patient. Started him on Librium 25 every 6 scheduled x72 hours. If patient has escalating needs for as needed Ativan he may eventually end up needing either Ativan or Precedex infusion. Patient is clearly delirious at present time. Incidentally found pigmented suspicious skin lesion on suprapubic region: Needs referral to a night supervisor or a surgeon for biopsy to rule out potential squamous cell carcinoma. This can be arrangedas outpatient at discharge. 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 Patient however does have history of CAD. Status post PCI to pRCA and dRCA on 05/15/2019. Serial troponin ordered. Please refer to detailed H&P of JAQUELINE for other chronic medical problems and management. The chart has been reviewed in its entirety by me personally, including relevant previous visits/notes, radiographic studies, EKG, laboratory results and microbiology/pathology results and compared with any previous existing studies as needed. Signed: Araceli Mcbride MD * Tory Chawla APRN CNP - 12/28/2020 9:50 PM EDT Images from the original note were not included. HISTORY & PHYSICAL Date of Admission: 12/28/2020 Date of Service: 12/28/2020 PCP: Hayden Herrera APRN CNP Room: [facility]5/01 CHIEF COMPLAINT: Chest Pain HISTORY OF PRESENT ILLNESS Yonathan Fernandez is a 45 y.o. male presented to [facility] Emergency Department on 12/28/2020 with chief complaint of chest pain. Patient with history of CAD, status post stents x5 in 2019. patientreports developing midsternal chest pain this afternoon. This occurred approximately half an hour after he had mowed his grass. He notes earlier in the day he had had an episode of nausea and vomiting. When he developed the chest pain he had slight shortness of breath as well as slight nausea but did not vomit or have diaphoresis. He denies taking anything for his pain because I was too afraid to take anything. He otherwise denies recent illness. He does mention that he has had 2 seizures in the last month. In reviewing his chart these were felt to be related to withdrawal. He reports that he does continue to drink but no more than 2 beers a day and that he cut down because of the seizures. He reports compliance with Keppra as well as all of his cardiac medications. He reports drinking 1 beer today while he was mowing the grass. In ED: Patient's laboratory revealed low magnesium and potassium for which she was ordered replacement. Chest x-ray, EKG, remainder of laboratory work-up overall unremarkable. Patient's pain improvedwith the administration of sublingual nitro given patient's chest pain with lack of recent cardiac e valuation and extensive history of CAD patient placed in CDU for further observation and treatment. PAST MEDICAL HISTORY has a past medical history of Alcohol abuse, Fall (11/16/2020), Hyperlipidemia, Hypertension, Myocardial infarct (HCC), and Seizures (HCC). PAST SURGICAL HISTORY has a past surgical history that includes hernia repair; arm surgery; Vasectomy; TONSILLECTOMY; Coronary angioplasty with stent; and Coronary angioplasty with stent. HOME MEDICATIONS Medications Prior to Admission Medication Sig Dispense Refill Last Dose albuterol 108 (90 Base) MCG/ACT inhaler INHALE 2 PUFFS INTO THE LUNGS EVERY 4 HOURS NEEDED FOR WHEEZING AND/OR SHORTNESS OF BREATH. 18 g 4 12/28/2020 amitriptyline (ELAVIL) 75 MG tablet TAKE 1 TABLET BY MOUTH NIGHTLY. 30 tablet 6 12/28/2020 aspirin EC (ECOTRIN LOW STRENGTH) 81 MG EC tablet Take 1 tablet by mouth daily. 30 tablet 1 12/28/2020 atorvastatin (LIPITOR) 80 MG tablet TAKE 1 TABLET BY MOUTH NIGHTLY. 30 tablet 11 12/28/2020 Blood Pressure Monitoring (BLOOD PRESSURE CUFF) MISC Use PRN 1 each 0 Past Week clopidogrel (PLAVIX) 75 MG tablet TAKE 1 TABLET BY MOUTH DAILY. 30 tablet 2 12/28/2020 folic acid (FOLVITE) 1 MG tablet Take 1 tablet by mouth daily. 30 tablet 1 12/28/2020 gabapentin (NEURONTIN) 300 MG capsule TAKE 1 CAPSULE BY MOUTH 3 TIMES DAILY. 90 capsule 2 12/28/2020 hydrOXYzine (ATARAX) 50 MG tablet Take 1 tablet by mouth every 6 hours as needed for Anxiety (for MILD anxiety- patient reported anxiety 1-4). 30 tablet 0 12/28/2020 levETIRAcetam (KEPPRA) 500 MG tablet Take 1 tablet by mouth two times a day. 120 tablet 3 12/28/2020 lisinopril-hydrochlorothiazide (PRINZIDE,ZESTORETIC) 20-12.5 MG per tablet TAKE 2 TABLETS BY MOUTH DAILY. 60 tablet 6 12/28/2020 Magnesium Oxide (MAG-OX) 400 (241.3 Mg) MG tablet Take 1 tablet by mouth daily. 30 tablet 0 12/28/2020 Metoprolol Tartrate (LOPRESSOR) 25 MG tablet TAKE 1 TABLET BY MOUTH TWO TIMES A DAY. 60 tablet 2 12/28/2020 pantoprazole (PROTONIX) 40 MG tablet TAKE 1 TABLET BY MOUTH DAILY. 30 tablet 2 12/28/2020 potassium chloride SA (K-DUR,KLOR-CON M20) 20 MEQ tablet Take 2 tablets by mouth daily. 30 tablet 12/28/2020 sildenafil (VIAGRA) 100 MG tablet Take 1 tablet by mouth daily as needed. 30 tablet 6 Past Month Thiamine HCl (B-1) 100 MG TABS TAKE 1 TABLET BY MOUTH DAILY. 30 tablet 3 12/28/2020 vitamin B-12 (CYANOCOBALAMIN) 1000 MCG tablet TAKE ONE TABLET BY MOUTH ONCE DAILY 30 tablet 3 12/28/2020 ALLERGIES has No Known Allergies. SOCIAL HISTORY reports that he has been smoking cigarettes and cigars. He has a 20.00 pack-year smoking history. He has never used smokeless tobacco. He reports current alcohol use. He reports that he does not use drugs. FAMILY HISTORY family history includes Diabetes in his maternal grandfather. REVIEW OF SYSTEMS Review of Systems Constitutional: Negative for chills, diaphoresis, fever, malaise/fatigue and weight loss. HENT: Negative for congestion, ear pain, nosebleeds, sinus pain and sore throat. Eyes: Negative for blurred vision, double vision and pain. Respiratory: Positive for shortness of breath. Negative for cough and sputum production. Cardiovascular: Positive for chest pain. Negative for palpitations and leg swelling. Gastrointestinal: Positive for nausea and vomiting. Negative for abdominal pain, constipation and diarrhea. Genitourinary: Negative for dysuria, frequency and urgency. Musculoskeletal: Negative for back pain, joint pain and myalgias. Skin: Negative for rash. Neurological: Positive for seizures. Negative for dizziness, speech change, weakness and headaches. Psychiatric/Behavioral: The patient is not nervous/anxious and does not have insomnia. PHYSICAL EXAM Vitals: Visit Vitals BP 144/86 (Patient Position: Lying) Pulse 82 Temp 98.4 F (36.9 C) (forehead) Resp 20 Ht 5' 4 (1.626 m) Wt 63.5 kg (140 lb) SpO2 97% BMI 24.03 kg/m Physical Exam Vitals and nursing note reviewed. Constitutional: Appearance: He is not diaphoretic. HENT: Head: Normocephalic. Right Ear: External ear normal. Left Ear: External ear normal. Nose: Nose normal. Mouth/Throat: Mouth: Mucous membranes are moist. Eyes: General: No scleral icterus. Extraocular Movements: Extraocular movements intact. Conjunctiva/sclera: Conjunctivae normal. Neck: Vascular: No JVD. Trachea: No tracheal deviation. Cardiovascular: Rate and Rhythm: Normal rate and regular rhythm. Heart sounds: Normal heart sounds. Pulmonary: Effort: Pulmonary effort is normal. No respiratory distress. Breath sounds: Normal breath sounds. No stridor. Chest: Chest wall: No tenderness. Abdominal: General: Bowel sounds are normal. There is no distension. Palpations: Abdomen is soft. There is no mass. Tenderness: There is no abdominal tenderness. There is no guarding or rebound. Musculoskeletal: General: Normal range of motion. Cervical back: Normal range of motion. Skin: General: Skin is warm and dry. Capillary Refill: Capillary refill takes less than 2 seconds. Neurological: General: No focal deficit present. Mental Status: He is alert and oriented to person, place, and time. Cranial Nerves: No cranial nerve deficit. Coordination: Coordination normal. Psychiatric: Mood and Affect: Mood and affect normal. Cognition and Memory: Memory normal. DATA REVIEWED I have personally reviewed chart, medications, diagnostics, and some old records. I coordinated medical care with nursing staff. Patient's medications, allergies, past medical, social, surgical and family histories were reviewedand updated as appropriate. Cardiographics 12/28/2020 ECG 12/28/2020 ECHO Imaging XR Chest 1 View Final Result No acute cardiopulmonary process. Lab Review Recent Labs Lab 12/28/202009 HGB 12.0* HCT 34.3* WHITEBLOODCE 5.1 PLT 92.0* NA 138 K 3.0* CL 99 CO2 25 BUN 5* CREATININE 0.55* GLU 91 CALCIUM 8.4 Recent Labs Lab 12/28/202009 TROPONINI <0.012 No results for input(s): AMYLASE, LIPASE, ALKPHOS, BILITOT, AST, ALT in the last 168 hours. ASSESSMENT / PLAN Principal Problem: Acute chest pain Active Problems: Tobacco abuse Alcohol abuse Coronary artery disease involving [place] coronary artery of [place] heart with angina pectoris (HCC) Acute chest pain with history of CAD: Cardiac monitoring. Serial troponin. Obtain Lexiscan stress testing. Lipid panel in a.m. We will also obtain lipase and hepatic panel to rule out other etiologies of chest pain given his alcohol abuse. Tobacco abuse: Encourage cessation. Nicotine replacement ordered as needed. Alcohol abuse: Ethanol level pending at time of admission. CIWA protocol ordered. Seizure precautions ordered. We will also obtain Keppra level. Signed: Tory Chawla APRN CNP This plan was discussed with patient and/or parent(s), questions were answered, the patient and or parent(s) appear to understand and agree with plan for admission. Spoke with Dr. Hancock attending regarding patient. Physician to complete their own physical exam andevaluation. Collaboration performed between this SAP TECHNICAL ARCHITECT and physician regarding patient's plan of care. The above report was generated using voice recognition software. It may contain grammatical, syntaxand spelling errors. Associated attestation - Ceci Hancock MD - 12/29/2020 12:57 PM EDT Chief complaint: Chest pain History and physical: 45-year-old male presents with chest pain. He has known history of coronary artery disease and has had stents placed in 2019. His pain is midsternal. He is here now for further evaluation. He also had nausea. Patient also has hx of ethanol use and has had seizures in the past.He is on Keppra. Patient denies headache, shortness of breath. There is no history of neck stiffness or sore throat. Patient denies any cough, nausea or vomiting. There is no abdominal pain. Patient denies any urinary complaints. There are no other aggravating factors. Patient will be admitted to CDU for further evaluation. He has hypokalemia and will be replaced. I personally saw and examined this patient. I supervised the care and treatment of this patient. I formulated the medical decision making plan verbally with the midlevel, MAKE UP ARRANGER, or PA, that led to the disposition, treatment, discharge, or admission of this patient. The orders entered are part of the direct result of that medical decision making and treatment plan formulated and discussed. [facility] Discharge instructions* Instructions* Satnam Beck RN - 12/29/2020 Images from the original note were not included. Instructions for patient: Follow-up as directed What to do after you leave the hospital: If you experience any of the following symptoms chest pain, please follow up with your PCP or nearest Emergency Department. Activity: As tolerated Diet: Diet cardiac No Caffeine; Feeds Self The following personal items were collected during your admission and were returned to you: Valuables Dentures: None Vision - Corrective Lenses: None Hearing Aid: None Jewelry: None Clothing: Pants, Shirt, Socks Home medical equipment: None Other Valuables: Cell phone Offered to send valuables to safe: Declined after education Valuables Given To: None Chest Pain: Care Instructions Your Care Instructions There are many things that can cause chest pain. Some are not serious and will get better on their own in a few days. But some kinds of chest pain need more testing and treatment. Your doctor may have recommended a follow-up visit in the next 8 to 12 hours. If you are not getting better, you may need more tests or treatment. Even though your doctor has released you, you still need to watch for any problems. The doctor carefully checked you, but sometimes problems can develop later. If you have new symptoms or if your symptoms do not get better, get medical care right away. If you have worse or different chest pain or pressure that lasts more than 5 minutes or you passed out (lost consciousness), call 911 or seek other emergency help right away. A medical visit is only one step in your treatment. Even if you feel better, you still need to do what your doctor recommends, such as going to all suggested follow-up appointments and taking medicines exactly as directed. This will help you recover and help prevent future problems. How can you care for yourself at home? Rest until you feel better. Take your medicine exactly as prescribed. Call your doctor if you think you are having a problem with your medicine. Do not drive after taking a prescription pain medicine. When should you call for help? Call 911 if: You passed out (lost consciousness). You have severe difficulty breathing. You have symptoms of a heart attack. These may include: ? Chest pain or pressure, or a strange feeling in your chest. ? Sweating. ? Shortness of breath. ? Nausea or vomiting. ? Pain, pressure, or a strange feeling in your back, neck, jaw, or upper belly or in one or both shoulders or arms. ? Lightheadedness or sudden weakness. ? A fast or irregular heartbeat. After you call 911, the borematic machine operator may tell you to chew 1 adult-strength or 2 to 4 low-dose aspirin. Wait for an ambulance. Do not try to drive yourself. Call your doctor today if: You have any trouble breathing. Your chest pain gets worse. You are dizzy or lightheaded, or you feel like you may faint. You are not getting better as expected. You are having new or different chest pain. Where can you learn more? Go to https://www.[employer].net/patientEd Enter A120 in the search box to learn more about Chest Pain: Care Instructions. Current as of: March 17, 2020 Content Version: 12.9 [employer]. Care instructions adapted under license by your healthcare professional. If you have questions about a medical condition or this instruction, always ask your healthcare professional. [employer] disclaims any warranty or liability for your use of this information. Acute Alcohol Intoxication: Care Instructions Your Care Instructions You have had treatment to help your body rid itself of alcohol. Too much alcohol upsets the body's fluid balance. Your doctor may have given you fluids and vitamins. For some people, drinking too much alcohol is a one-time event. For others, it is an ongoing problem. In either case, it is serious. It can be life-threatening. Follow-up care is a kulkarni part of your treatment and safety. Be sure to make and go to all appointments, and call your doctor if you are having problems. It's also a good idea to know your test resultsand keep a list of the medicines you take. How can you care for yourself at home? Do not drink and drive. Be safe with medicines. Take your medicines exactly as prescribed. Call your doctor if you think you are having a problem with your medicine. Your doctor may have prescribed disulfiram (Antabuse). Do not drink any alcohol while you are taking this medicine. You may have severe or even life-threatening side effects from even small amounts of alcohol. If you were given medicine to prevent nausea, be sure to take it exactly as prescribed. Before you take any medicine, tell your doctor if: ? You have had a bad reaction to any medicines in the past. ? You are taking other medicines, including [id number]-[id number] ones, or have other health problems. ? You are or could be . Be prepared to have some symptoms of withdrawal in the next few days. Drink plenty of liquids in the next few days. Seek help if you need it to stop drinking. Getting counseling and joining a support group can help you stay sober. Try a support group such as Alcoholics Anonymous. Avoid alcohol when you take medicines. It can react with many medicines and cause serious problems. When should you call for help? Call 911 anytime you think you may need emergency care. For example, call if: You feel confused and are seeing things that are not there. You are thinking about killing yourself or hurting others. You have a seizure. You vomit blood or what looks like coffee grounds. Call your doctor now or seek immediate medical care if: You have trembling, restlessness, sweating, and other withdrawal symptoms that are new or that get worse. Your withdrawal symptoms come back after not bothering you for days or weeks. You can't stop vomiting. Watch closely for changes in your health, and be sure to contact your doctor if: You need help to stop drinking. Where can you learn more? Go to https://www.[employer].net/patientEd Enter T102 in the search box to learn more about Acute Alcohol Intoxication: Care Instructions. Current as of: July 10, 2020 Content Version: 12. [employer]. Care instructions adapted under license by your healthcare professional. If you have questions about a medical condition or this instruction, always ask your healthcare professional. [employer] disclaims any warranty or liability for your use of this information. documented in this encounterGenesis [id number] Emergency department Note* Aretha Lockhart MST - 12/28/2020 9:44 PM EDT 1215 clean * Aretha Lockhart MST - 12/28/2020 9:43 PM EDT Bed requested * Sigrid Mandel RN - 12/28/2020 8:40 PM EDT Held 3rd nitro bp 99/65 Pt a/o resting in bed with esay respires Pt states cp of 7/10 getting better ERP aware * Kathya Kothari MD - 12/28/2020 8:04 PM EDT ED Diagnosis and Summary 1. Chest pain, unspecified type 2. Hypomagnesemia 3. Hypokalemia ED Summary History Chief Complaint Patient presents with Chest Pain Patient's medications and allergies were reviewed and updated as appropriate. Patient's medications, allergies, past medical, surgical, social and family histories were reviewedand updated as appropriate. HPI Patient is a 45-year-old male with a history of CAD, previous MD, seizure disorder who presents today with chief complaint of chest pain. Patient states 2 hours prior to arrival he began having substernal chest pain. He describes it as a pressure, elephant sitting on his chest. Denies any radiation. Is associated with shortness of breath, nausea, vomiting, diaphoresis. No known exacerbating alleviating factors. Patient states that it is different than his previous MD pain. He also states that he became lightheaded with this discomfort which reminded him of his symptoms prior to having a seizure. This prompted him to call for help. He did not have any seizure activity. States he has been taking his antiepileptic as prescribed. Patient is on Keppra. No other concerns at this time. Review of Systems Constitutional: Positive for diaphoresis. Negative for fever. HENT: Negative. Eyes: Negative. Respiratory: Positive for shortness of breath. Cardiovascular: Positive for chest pain. Gastrointestinal: Positive for nausea and vomiting. Negative for abdominal pain, constipation and diarrhea. Genitourinary: Negative. Musculoskeletal: Negative. Skin: Negative. Neurological: Positive for light-headedness. Physical Exam ED Triage Vitals [12/28/201951] BP (!) 131/91 Heart Rate 96 Resp 17 Temp 98.3 F (36.8 C) Temp src SpO2 95 % Weight 140 lb (63.5 kg) Height 5' 4 (1.626 m) BMI (Calculated) 24.02 Physical Exam Vitals and nursing note reviewed. Constitutional: General: He is not in acute distress. Appearance: Normal appearance. He is not ill-appearing, toxic-appearing or diaphoretic. HENT: Head: Normocephalic and atraumatic. Eyes: Extraocular Movements: Extraocular movements intact. Conjunctiva/sclera: Conjunctivae normal. Cardiovascular: Rate and Rhythm: Normal rate and regular rhythm. Heart sounds: No murmur heard. Pulmonary: Effort: Pulmonary effort is normal. No respiratory distress. Breath sounds: No stridor. No wheezing, rhonchi or rales. Abdominal: General: There is no distension. Palpations: Abdomen is soft. Tenderness: There is no abdominal tenderness. Musculoskeletal: General: Normal range of motion. Cervical back: Normal range of motion. Right lower leg: No edema. Left lower leg: No edema. Skin: General: Skin is warm and dry. Neurological: General: No focal deficit present. Mental Status: He is alert and oriented to person, place, and time. ED Course Procedures Medical Decision Making Patient is a 45-year-old male with a history of CAD, previous MD, seizure disorder, alcohol abuse presents today with chief complaint of chest pain. Patient was afebrile and hemodynamically stable. Physical exam is unremarkable. Regarding patient's chest pain, was concern for ACS. EKG was obtained and shows a sinus rhythm no evidence of ischemic change initial troponin is negative. Remainder of labs are notable for hypokalemia and mild hypomagnesemia both of which were supplemented. Chest x-raydoes not show any evidence of acute pathology. Patient reports that he feels as though he did priorto having had previous seizures. These were thought to be related to alcohol withdrawal. We will plan to obtain ethanol level the patient exhibits no other evidence of alcohol withdrawal at this time. Patient did not have any seizure-like activity. Patient was given nitro and had previously received aspirin prior to arrival. He will be admitted for further management. Kathya Kothari MD 12/28/202219 * Sigrid Mandel RN - 12/28/2020 7:53 PM EDT ERP to bedside * Lisa Sierra RN - 12/28/2020 7:46 PM EDT Bed: 18 [facility] Expected date: 12/28/20 Expected time: 7:41 PM Means of arrival: [employer] Comments: SZ 1401 Chest pain, crushing pressure 01/06, hx heart attack and seizures NTG x 1, BASA x 4 45 yo male ET * Sigrid Mandel RN - 12/28/2020 7:46 PM EDT Pt arrives per EMS for Cp that started approx 2 hrs ago. States that it feels like a lot of pressure on my chest. Pt states that he vomited denies sob \ Pt a/o skin p/w/d w/easy respires NAD [facility] Miscellaneous Notes* Nursing - Leny Tsang RN - 11/20/2020 12:04 PM EDT Pt states that he has a walker at home and pt mother contacted for transportation. Pt states that he will set up his follow-up appointment with the doctor. Verbal and written discharge instructions were given to the pt. IV removed. Pt mom is transportation. * Rehab Therapies - Sherri Iraheta CCC-RECORDIST - 11/20/2020 11:38 AM EDT Name: Yonathan Fernandez CAT: [id number] Initial cognitive-linguistic evaluation orders received and appreciated. Per chart, pt's persistent AMS is suspected to be Wernicke's encephalopathy related to alcohol use.Thiamine has been started for same. ST will hold evaluation as Wernicke's encephalopathy is treatedmedically, but would recommend assessment at discharge if AMS continues following course of thiamine. RN aware of same. Thank you. * Nursing - Leny Tsang RN - 11/20/2020 10:15 AM EDT Pt mother called and pt states that it is okay to give her medical information. * Nursing - Divine Franklin RN - 11/20/2020 5:13 AM EDT Patient rested in bed for a few hours over night after PRN medication was provided. He denies pain and discomfort this am, and is showing some signs of disorientation in that he thought he was in snf when he first woke this am, and he is demanding to know why he is still here stating that he was suppose to only be in snf for 21 days, he believes that he has been here for 40 days. Patient re-orientated to time, place and situation. He then states that he hopes to be discharged today because heneeds to get home so that she can take care of his sick mother. No noted changes to assessment fromprevious. * Nursing - Miladys Rizzo RN - 11/19/2020 4:55 PM EDT PM assessment complete. No changes from previous assessment. Patient has been sleeping a good part of the day. He is alert and oriented and has bits of confusion on were he is and what month we are in. CVS monitor is in place. And Ciwas have been low and no ativan was needed. * Rehab Therapies - José Miguel Shi, PT - 11/19/2020 9:29 AM EDT Images from the original note were not included. PT Initial Evaluation Note Name: Yonathan Fernandez Date of : 1975 Admission Date: 11/15/2020 PT Recommendation Recommendations/Continuum of Care: Further post-acute services 3-5x/week (i.e. Subacute Rehab) Comments: Pt limited functionally by impaired balance, impaired cognition, poor proprioception and pt is a high fall risk. Pt needs 24 hour spuervision at this time and PT to recommend 3-5x post acute services at this time Ambulation Distance: Not able to assess at this time Equipment Recommended: Other (TBD) Barriers to discharge: Fall risk, Decreased caregiver support, Inaccessible home environment, 24 hour care needed for safety AM-PAC Raw Score: 12 Requires PT Follow Up: Yes Re-Eval date: (max 2wks): 12/03/20 Plan of Care date: (max 2wks): 12/03/20 PT Plan Treatment/Interventions: ADL retraining, Functional transfer training, LE strengthening/ROM, Endurance training, Cognitive reorientation, Patient/Family training, Equipment eval/education, Bed mobility, Gait training, Stair training, Compensatory technique training, Coordination training, Balance training PT Frequency: 3-5 days/wk PT Evaluation/Assessment History of present illness:Principal Problem: Alcohol withdrawal (HCC) Active Problems: 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 Past Surgical History: has a past surgical history that includes hernia repair, arm surgery, Vasectomy, TONSILLECTOMY, Coronary angioplasty with stent, and Coronary angioplasty with stent. Physical Therapist Evaluating Physical Therapist: FRED Consent Informed consent: Yes Comments: 45 y/o male admitted to [facility] for alcohol withdrawal. Pt has hx of ETOH abuse and has been admitted multiple times prior. RN cleared pt medically for PT IE and pt was agreeable. Pt currently presents with decreased functional mobility, impaired cognition, impaired balance and pt is a high fall risk. PT anticipates 3-5x post acute services at this time. Restrictions/Precautions Right Lower Extremity Weight Bearing: No restrictions Left Lower Extremity Weight Bearing: No restrictions Fall Risk: Yes (Impaired balance) Comments: Pt has poor safety awareness, hallucinating, disoriented Braces/Orthoses Required Braces or Orthoses?: No Cognition Level of Consciousness: Alert/Awake;Disoriented Orientation Level: Oriented to person;Disoriented to place;Disoriented to time;Disoriented to situation Cognition: Impulsive;Follows commands;Poor safety awareness;Poor attention/concentration Speech/Language: Clear, meaningful and understandable Home Living Type of Home: House Home Layout: More than one level Multi-level Home Details: Stairs to alternate level with rails Alternate Level Stairs - Ascending Rails: (Unilateral) Alternate Level Stairs - Number of Steps: 13 Home Adaptive Equipment: None Information Provided By: Patient Comments: Pt answers subjective information, but is not a reliable historian Prior Function Level of [place]: Independent with ADLs;Independent with functional mobility;Independent with homemaking from ambulatory level Assistance Available?: Yes Assistance Available From: Family Additional Comments: ? PT Pain Assessment Pain Intervention for PT: Patient able to continue with treatment PT Pain Comment: Pt reports some abdominal pain Sensation Light Touch (discrim) Dermatomal Pattern: WFL Light Touch (discrim) Intact/Impaired: Intact LE ROM Assessment RLE General ROM: WFL LLE General ROM: WFL Strength RLE Strength RLE: WFL Strength LLE Strength LLE: WFL Bed Mobility Bed Mobility Level of Assistance: Moderate assistance Bed Mobility From: Supine Bed Mobility Type: To and from Bed Mobility To: Short sit Bed Mobility Therapy Interventions: Head of Bed raised;Bedrail used to assist self to sitting or tosupine;Increased time required to complete;Therapist assisted with LE management;Assistance required for trunk control;Utilized chucks pad to help scoot patient to edge of bed;Allowed patient to sit edge of bed for a few minutes to normalize vitals Comment: Pt requires heavy assist secondary to poor overall balance and heavy retropulsive trunk COG. Transfer Transfer (1) Level of Assistance: Moderate assistance Transfer From: Sit Transfer Type: To and from Transfer To: Stand Technique: Sit to stand;Stand to sit Transfer Device: Front wheeled walker Transfer Therapy Interventions: Cues for correct hand placement;Cues for body position to maximize leverage for sit<-->stand Trials / Comments: Pt has poor proprioception and balance in standing. Pt is a high fall risk Ambulation Weight Bearing Status: No restrictions Ambulation Distance: Not able to assess at this time Comments: Pt is unable to ambulate secondary to balance at this time Stairs Stairs?: No Balance Sitting - Static Supported: Poor Sitting - Dynamic Supported: Poor Standing - Static Supported: Poor Standing - Dynamic Supported: Poor TINETTI PETER (Performance Oriented Mobility Assessment) Sitting Balance: Leans or slides in chair Arises: Unable without help Attempt to Rise: Unable without help Immediate Standing Balance: Unsteady (swaggers, moves feet, trunck sways) Standing Balance: Unsteady Nudged: Begins to fall Eyes Closed: Unsteady Turn 360 degrees: Discontinuous steps Sit Down: Unsafe (falls into chair) Initiation of Gait: Any hesitancy or multiple attempts to start RIGHT Swing Foot - Step Length & Height: Doesn't pass LEFT stance foot LEFT Swing Food- Step Length & Height: Doesn't pass RIGHT stance foot Step Symmetry: R & L step length NOT EQUAL Step Continuity: Stopping or discontinuous steps Path (-10'): Marked deviation Trunk: Marked sway or uses assistive device Walking Stance: Heels apart BALANCE Score (__out of 16): 0 GAIT Score (__ out of 12): 0 BALANCE & GAIT Score (__ out of 28): 0 TINETTI Fall Risk (Calculated): <19= HIGH RISK Activity Tolerance Activity Tolerance: Patient tolerated treatment well Education Patient Education Completed With: Patient Role of Therapy and Goals Reviewed: Yes Restrictions/Precautions Reviewed: Yes Safety Reviewed: Yes Therapy Schedule Reviewed: Yes Exercises &/or HEP Reviewed: Yes Assessment Prognosis: Fair Problem List: Decreased ADL status;Decreased safety awareness;Decreased safe judgement during functional tasks;Decreased cognition;Decreased functional mobility;Impaired gait mechanics;Increased fallrisk;Balance deficits;Decreased trunk control for functional activities Barriers to discharge: Fall risk;Decreased caregiver support;Inaccessible home environment;24 hour care needed for safety AM-PAC: How much help from another person does the patient currently need... Turning from your back to your side while in a flat bed without using bedrails?: A Lot Moving from lying on your back to sitting on the side of a flat bed without using bedrails?: A Lot Moving to and from a bed to a chair (including a wheelchair)?: A Lot Standing up from a chair using your arms (e.g., wheelchair, or bedside chair)?: A Lot To walk in hospital room?: A Lot Climbing 3-5 steps with a railing?: A Lot AM-PAC Mobility Scores AM-PAC Raw Score: 12 AM-PAC Scale Score: 32.23 AM-PAC 0-100% CMS Score: 61.94% AM-PAC CMS Modifier: CL Short Term Goals Goal Formulation: With patient Time For Goal Achievement: 1-2 Weeks Pt Will Go Supine To Sit: Stand by assistance Pt Will Go Sit to Supine: Stand by assistance Pt Will Sit to Stand: Contact guard assistance Pt Will Transfer Bed/Chair: Contact guard assistance Pt Will Ambulate: Contact guard assistance;Front wheeled walker;31-50 feet Pt Will Tolerate Continuous Activity: 11-15 min;Contact guard assistance Therapy Prognosis: Good Safety Devices Safety Devices in place: Yes Type of devices: Bed alarm;CVS Restraints Initially in place: No CM Anticipated DC Plan (DO NOT CHANGE) Anticipated Discharge Plan: Nursing Facility General Chart Reviewed: Yes Time spent with patient/family/caregiver: 15 Minutes Family / Caregiver Present: No Comments: PT IE completed. Pt supine in bed with all needs met and call light in reach. CVS in placed and bed alarm active. RN notified of pt performance with PT End of Therapy Session: Resting in bed;Lower extremities elevated;Call light in reach;Nursing notified verbally of patient status;CVS monitor present in room;Bed alarm turned on Signature: José Miguel Shi PT, DPT November 19, 2020 * Nursing - Miladys Rizzo RN - 11/18/2020 6:42 PM EDT PM assessment complete. Patient sleep most of the day and is more alert this evening disoriented with time was able to say where he was at. He is asking when he can leave I told him we could ask the doctor in the morning and he was okay with that. Tray was ordered for patient. * D/C Planning - Anahy Avitia Bioinformatics Assistant - 11/18/2020 2:10 PM EDT 11/18/20 1409 Reason for Reassessment Reason for Reassessment Ongoing DCP evaluation High Re-admission risk assessment Hospital Admission in the last 30 days 0 Discharge Planning Needs Anticipated Discharge Plan Home or Self Care Med Outreach No Med Precert needed No Home Care Services (none) Other agency involvement at discharge (none) New DME needs (none anticipated) Mode of Transportation Car Barriers to Discharge None Discharge plan developed in collaboration with Patient;Attempted with Family/Caregiver Initial Discharge plan mutually acceptable to patient/family/sample case porter? Yes Comments Comments Pt dc plans are to return home. No cm needs identified. * Rehab Therapies - José Miguel Shi, PT - 11/18/2020 9:45 AM EDT Name: Yonathan Fernandez CAT: [id number] 11/18/20 0945 General Chart Reviewed Yes Amount of Missed Time 20 Comments PT IE attempted. Pt actively hallucinating and impulsive with movements. Pt not yet appropriate for acute care PT services. PT will follow and perform IE as pt medically appropriate for PT IE End of Therapy Session Resting in bed;Lower extremities elevated;Call light in reach;CVS monitor present in room;Nursing notified verbally of patient status * Rehab Therapies - Cheng Chavez, PT - 11/17/2020 3:03 PM EDT PT orders received and medical chart has been reviewed. Pt has been agitated throughout the day requiring medication to alleviate this. Patient will be seen by a skilled Physical Therapist as schedule permits. * Nursing - Leeanne Sifuentes, ERIK - 11/17/2020 9:30 AM EDT This RN and MST in room to provide care. Pt pulling on IV tubing along with sheet and a pillow laying over his face. This RN removed IV tubing from grasp and insured that IV was still patent. MST attempted to remove sheet d/t all bed linens soaked with urine. Pt began yelling and cursing at [facility]. This RN and MST attempted to educate pt on why he needed to have his bed linen changed without success. Pt continued to yell saying, I'm not wet! I would know if I was! Attempted to remove bed sheet again which only caused more agitation. Pt left to calm down with call light within reach. * Nursing - Abdullahi Paulino MST - 11/17/2020 8:30 AM EDT 0730: This MST enters room to find pt tangled up in sheets, pulling at IV tubing which is wrapped around his body. He is tangled in tele wires, call light cord and IV line. Untangled pt and provided repositioning and warm blanket. 0830: Enters room & finds pt urinated in bed - white chucks are wet/shorts wet. Suggested to patient to allow us to help him get cleaned up. He begins screaming and cussing at this [facility], saying Why would I be wet?! I'm not fucking wet!. This MST explained to pt that his bed is in fact wet and he really should get washed up or at least let us change his linens. He screams and cusses again, No ! Leave me the fuck alone! I'm not wet! I'm fuckin' tired! Gave pt his blankets and notified RN. 0930: Re-attempted to clean up pt. Still refuses; belligerent and unsuccessful with attempt. 11:30: Additional staff assists this tech with trying to get pt to put legs back in bed; pt belligerent yet again, yelling at staff, cussing - soiled pad removed; pt still refusing to get cleaned up. 1530: Staff (x3) bathed patient after soiling bed (incontinent of stool/urine) - pt refusing to letstaff clean him, cussing and screaming. Linens changed, pt given full bath. * Nursing - Gina Chester RN - 11/17/2020 6:32 AM EDT Yelling out, placed t shirt on like a pair of pants. Believes he is at his home. Has been reaching for things in the air and non compliant with care. Agitated at staff. Has made several attempts to get out of bed,pull at his IVs and tel;emetry monitor. CIWA score obtained for a level 0f 20. 4 mg IVativan given at this time. Mary VALENCIA aware and will continue to monitor. * Nursing - Chante Lara RN - 11/16/2020 6:56 PM EDT Patient in bed with multiple incontinent episodes throughout shift. CVS added today for safety. Bedin lower position, bed alarm remains in use for impulsiveness. Call light remains within patients reach. * Rehab Therapies - José Miguel Shi PT - 11/16/2020 4:19 PM EDT Name: Yonathan Fernandez CAT: [id number] PT orders received and medical chart has been reviewed. Patient will be seen by a skilled Physical Therapist as schedule permits. José Miguel Shi, PT, DPT * Nursing - Leny Tsang RN - 11/16/2020 2:28 PM EDT Edgar MILLS called and updated on pt. Pt in bed with call light within reach and bed alarm on. * D/C Planning - Anahy Avitia Social Worker - 11/16/2020 2:06 PM EDT CM Initial Discharge Planning Yonathan Fernandez 1975 Met with Yonathan Fernandez at Bedside. Yonathan J Slick actively participated in the Discharge Planning Process Comments: Pt lives with his Mother and declined Mother being involved in dcp. Pt reports dcp is to return home and declined all needs. GERALDINE resources provided to pt and pt is adiment that he is not going to tx and does not need tx. reports he is I with ADLs and amb. Uses a walker at home. Denies allagency involvement. Rx + uses [facility] [address] Dr Elizalde is PCP. Mother [place] provide t [place]ansportation [place]. Role and availability of cm discussed. Initial Discharge Planning Reason for Referral: Drug/Alcohol Abuse Obtained Information From: Chart Family contact name: Shanice Fernandez Relationship to patient: Mother Family Contact Number: [phone] Living Arrangements: Family Members Capacity for Self-Care of ADLs: Independent Are family members/care delivery providers able to provide care necessary upon discharge without environmental modification: Indeterminate New functional deficits: Unable to assess Physical Therapy Screening: Unable to assess Occupational therapy screening: Unable to assess Speech therapy screening: Unable to assess Home Environment: Patient's home is Single Level Is patient diabetic?: No Agency Involvement: None Does Patient Currently Use DME: Yes DME Company Name: (na) DME Currently used by patient in home: Walker Have you served in [employer] services: No Who will provide transportation?: (Mother) Barriers to Discharge: None Discharge Planning Needs Anticipated Discharge Plan: Home or Self Care (Declined all needs. GERALDINE resources provided) Med Outreach: No Med Precert needed: No Home Care Services: (declined) Other agency involvement at discharge: (declined) New DME needs: (none anticipated) Mode of Transportation: Car Barriers to Discharge: None Discharge plan developed in collaboration with: Patient, Attempted with Family/Caregiver Initial Discharge plan mutually acceptable to patient/family/sample case porter?: Yes % Social Pura Murray The patient has the right to participate in the development and implementation of his plan of care.The patient or his door to door sales representative (as allowed under State law) has the right to make informed decisions regarding his discharge plan. The patient's right includes being involved in care planning and treatment. * Nursing - Anahy Avitia Bioinformatics Assistant - 11/16/2020 2:02 PM EDT 11/16/20 1400 Alcohol use Disorders Identification Test (AUDIT) 1. How often do you have a drink containing alcohol? 4 2. How many drinks containing alcohol do you have on a typical day when you are drinking? (1 pint of Whiskey) 3. How often do you have six or more drinks on one occasion? (i pnit every other day) 4. How often during the last year have you found that you were not able to stop drinking once you had started? 0 5. How often during the last year have you failed to do what was normally expected of you because of drinking? 0 6. How often during the last year have you needed a drink in the morning to get yourself going after a heavy drinking session? 0 7. How often during the last year have you had a feeling of guilt or remorse after drinking? 0 8. How often during the last year have you been unable to remember what happened the night before because of your drinking? 0 9. Have you or someone else been injured because of your drinking? 2 10. Has a relative, friend or other health worker been concerned about your drinking or suggested you cut down? 2 AUDIT Score 8 Risk Level Zone II Intervention Simple Advice OTHER Summary Comments: Benefits of cessation discussed. GERALDINE resources provided. Pt declined need for SUDtx. * Nursing - Chante Lara, ERIK - 11/16/2020 1:58 PM EDT Attempt to call [place] with [employer] at this time. No answer, left message for return phone call. * Nursing - Yandy Ortega RN - 11/16/2020 6:18 AM EDT This nurse assisted patient to stand up and use urinal at this time. Patient unable to urinate. Patient states that he is dehydrated and he probably will not pee until later today and that it is not uncommon for him. Patient denies any abdominal discomfort and/or pain at this time. Unable to collect urine specimen per the same. * Nursing - Yandy Ortega RN - 11/16/2020 5:36 AM EDT Patient appears to be tolerating treatment well at this time. No noted changes from previous assessment. Patient resting in bed with eyes closed at this time. No additional request stated. No noted SOB and/or chest pain. Call light in reach and bed in low position. * Arrival Note - Yandy Ortega RN - 11/16/2020 1:52 AM EDT Patient arrives from ED by cot to room 4137. Transferred to 4137 with the assistance of staff members. Patient is accompanied by staff members. Patient reports withdrawal symptoms. Patient's current mental status A & O X 4 . documented in this [facility]06-23-2021 History of Present illness Narrative* Magali Hernández PA - 11/19/2020 9:31 AM EDT [facility] Medicine / [facility] Inpatient Progress Note 11/19/2020 Yonathan Fernandez 1975 [id number] Assessment/Plan: Yonathantaisha Fernandez is a 45 y.o. male with a history of CAD, HTN, seizures, tobacco abuse, and alcohol abuse who presented to [facility] 11/15/2020 with witnessed seizure- like activity at home. ED workup remarkable for plt 72 and LA 8.8. 1. Alcohol withdrawal with seizure: History of alcohol withdrawal related seizures. Noncompliant with home Keppra. Keppra restarted. Continue supportive care, Librium taper, CIWAs. Daily PO MV, thiamine, folic acid. Seizure precautions. Social work consulted. 2. Acute encephalopathy: Initially felt to be d/t alcohol withdrawal but persistent and associated with imbalance. Concern for Wernicke's, MRI brain pending 11/19/20. Initiated IV thiamine 500mg TID x2days then 250mg IV or IM x5 additional days. PT/OT/RECORDIST consulted. Monitor closely. 3. Hypokalemia: We will replace and repeat potassium level in the morning 4. Thrombocytopenia: admit plt 57, decreased from plt 520 on 09/30/20. Held home Plavix. Hematology consulted and did not recommend any additional work-up or treatment as the cause is likely related tobone marrow suppression due to alcohol abuse. Hepatitis panel and HIV nonreactive. Improving 5. CAD: s/p PCI to pRCA and dRCA in 04/[address] Ross (cardio). Held Plavix in setting of thrombocytopenia as above. Continued home ASA, Lipitor, and Lopressor. 6. Essential HTN: Continued home Prinzide and Lopressor. IV hydralazine PRN. Monitor and titrate PRN. 7. Hyperlipidemia: Continued home Lipitor. 8. Tobacco Abuse: current everyday smoker with 16.5 pack year history. NRT ordered. Cessation education provided. 9. Depression/Anxiety: continued home Elavil and PRN Atarax 10. Code Status: full code 11. DVT Prophylaxis: SCDs Current living situation: Home Expected Disposition: Home vs SNF, PT/OT/RECORDIST and CM consulted Estimated discharge date: TBD, pending clinical stability/dispo planning Subjective: Personally reviewed patient chart including history, vital signs, labs, imaging, and previous provider notes and summarized in the plan above. Patient continues to have intermittent AMS, says off the wall things at times per nursing. For me, A&O to person/place/situation and knows year but states is June or August. Also noted to be messing with bed frame buttons at end of bed before I walked in. Per PT, he has balance issues and will not be safe to return home. In light of persistent AMS (4 days into stay) and imbalance, discussed concern of Wernicke's encephalopathy with attending Dr. Webb. Decided to start on Wernicke's thiamine regimen and obtain MRI, monitor closely. May need SNF per PT. Physical Exam: Visit Vitals BP 148/87 (Patient Position: Lying) Pulse 66 Temp 97.9 F (36.6 C) (forehead) Resp 18 Ht 5' 4 (1.626 m) Wt 60.9 kg (134 lb 3.2 oz) SpO2 96% BMI 23.04 kg/m General: NAD Eyes: EOMI ENT: neck supple Cardiovascular: Regular rate. Respiratory: Clear to auscultation Gastrointestinal: Soft, non tender Musculoskeletal: No edema. Skin: warm, dry Neuro: Alert. Oriented to person, place, situation. Knows year but states month June or August. Still intermittently confused per RN. Imbalance with gait noted by PT and RN. Psych: Flat affect, cooperative Current Medications: amitriptyline 75 mg Oral Nightly aspirin EC 81 mg Oral Daily atorvastatin 80 mg Oral Nightly Certa-Kathrin 5 mL Oral Daily folic acid IV syringe 1 mg Intravenous Daily gabapentin 300 mg Oral Daily lisinopril 40 mg Oral Daily before lunch And hydroCHLOROthiazide 25 mg Oral Daily before lunch levETIRAcetam 500 mg Oral 2x Daily Magnesium Oxide 400 mg Oral Daily Metoprolol Tartrate 25 mg Oral 2x Daily nicotine 21 mg Transdermal Daily pantoprazole 40 mg Oral Daily potassium chloride SA 40 mEq Oral Daily thiamine 100 mg Intravenous Daily Labs, Imaging and Studies reviewed: Recent Labs Lab 11/17/20 0538 11/16/20 0519 11/15/20 2354 HGB 11.2* 10.2* 12.1* HCT 32.9* 29.5* 35.5* PLT 81.0* 57.0* 72.0* Recent Labs Lab 11/18/20 0752 11/17/20 0538 11/16/20 1612 11/16/20 0519 11/15/20 2354 NA -- 135 -- 135 135 K 3.4* 3.5* 3.3* 2.7* 3.3* CL -- 105 -- 101 96 BUN -- 2* -- 6* 5* CREATININE -- 0.47* -- 0.45* 0.47* CALCIUM -- 8.9 -- 8.2* 9.6 No results for input(s): ALT, AST, ALKPHOS, BILITOT in the last 168 hours. Recent Labs Lab 11/16/20 1612 INR 1.04 * Arjun Leon NP - 11/18/2020 7:35 AM EDT [facility] Medicine / [facility] Inpatient Progress Note 11/18/2020 Yonathan Fernandez 1975 [id number] Assessment/Plan: Yonathan Fernandez is a 45 y.o. male with a history of CAD, HTN, seizures, tobacco abuse, and alcohol abuse who presented to [facility] 11/15/2020 with witnessed seizure- like activity at home. ED workup remarkable for plt 72 and LA 8.8. 1. Alcohol withdrawal with seizure: History of alcohol withdrawal related seizures. Noncompliant with home Keppra. Keppra restarted. Continue supportive care, Librium taper, CIWAs. Daily PO MV, thiamine, folic acid. Seizure precautions. Social work consulted. 2. Hypokalemia: We will replace and repeat potassium level in the morning 3. Thrombocytopenia: admit plt 57, decreased from plt 520 on 09/30/20. Held home Plavix. Hematology consulted and did not recommend any additional work-up or treatment as the cause is likely related tobone marrow suppression due to alcohol abuse. Hepatitis panel and HIV nonreactive. Improving 4. CAD: s/p PCI to pRCA and dRCA in 04/[address] Ross (cardio). Held Plavix in setting of thrombocytopenia as above. Continued home ASA, Lipitor, and Lopressor. 5. Essential HTN: Continued home Prinzide and Lopressor. IV hydralazine PRN. Monitor and titrate PRN. 6. Hyperlipidemia: Continued home Lipitor. 7. Tobacco Abuse: current everyday smoker with 16.5 pack year history. NRT ordered. Cessation education provided. 8. Depression/Anxiety: continued home Elavil and PRN Atarax 9. Code Status: full code 10. DVT Prophylaxis: SCDs Current living situation: home Expected Disposition: home Estimated discharge date: 11/19/2020 Subjective: Personally reviewed patient chart including history, labs, imaging, and previous provider notes. Unable to complete a review of systems as the patient is disoriented secondary to withdrawal. However, significant improvement today as he actually answers some of my questions and has not is belligerent with staff members. He states he is still withdrawing. He reports feeling agitated and anxious.No complaints of chest pain or shortness of breath. Plan as above Physical Exam: Visit Vitals BP 108/74 (Patient Position: Lying) Pulse 70 Temp 97.9 F (36.6 C) (forehead) Resp 20 Ht 5' 4 (1.626 m) Wt 60.9 kg (134 lb 3.2 oz) SpO2 99% BMI 23.04 kg/m General: NAD Eyes: EOMI ENT: neck supple Cardiovascular: Regular rate. Respiratory: Clear to auscultation Gastrointestinal: Soft, non tender Musculoskeletal: No edema. Skin: warm, dry Neuro: Alert. Answers some questions appropriately but still disoriented secondary to withdrawal Psych: Flat affect, cooperative Current Medications: amitriptyline 75 mg Oral Nightly aspirin EC 81 mg Oral Daily atorvastatin 80 mg Oral Nightly Certa-Kathrin 5 mL Oral Daily chlordiazePOXIDE 25 mg Oral 3 times per day folic acid IV syringe 1 mg Intravenous Daily gabapentin 300 mg Oral Daily lisinopril 40 mg Oral Daily before lunch And hydroCHLOROthiazide 25 mg Oral Daily before lunch levETIRAcetam 500 mg Oral 2x Daily Magnesium Oxide 400 mg Oral Daily Metoprolol Tartrate 25 mg Oral 2x Daily nicotine 21 mg Transdermal Daily pantoprazole 40 mg Oral Daily potassium chloride SA 40 mEq Oral Daily thiamine 100 mg Intravenous Daily Labs, Imaging and Studies reviewed: Recent Labs Lab 11/17/20 0538 11/16/20 0519 11/15/20 2354 HGB 11.2* 10.2* 12.1* HCT 32.9* 29.5* 35.5* PLT 81.0* 57.0* 72.0* Recent Labs Lab 11/17/20 0538 11/16/20 1612 11/16/20 0519 11/15/20 2354 NA 135 -- 135 135 K 3.5* 3.3* 2.7* 3.3* CL 105 -- 101 96 BUN 2* -- 6* 5* CREATININE 0.47* -- 0.45* 0.47* CALCIUM 8.9 -- 8.2* 9.6 No results for input(s): ALT, AST, ALKPHOS, BILITOT in the last 168 hours. Recent Labs Lab 11/16/20 1612 INR 1.04 * Arjun Leon NP - 11/17/2020 11:35 AM EDT [facility] Medicine / [facility] Inpatient Progress Note 11/17/2020 Yonathan Fernandez 1975 [id number] Assessment/Plan: Yonathan Fernandez is a 45 y.o. male with a history of CAD, HTN, seizures, tobacco abuse, and alcohol abuse who presented to [facility] 11/15/2020 with witnessed seizure- like activity at home. ED workup remarkable for plt 72 and LA 8.8. 1. Alcohol withdrawal with seizure: History of alcohol withdrawal related seizures. Noncompliant with home Keppra. Keppra restarted. Continue supportive care, Librium taper, CIWAs. Daily PO MV, thiamine, folic acid. Seizure precautions. Social work consulted. 2. Hypokalemia: K down to 2.7, replace per protocol and monitor. 3. Thrombocytopenia: admit plt 57, decreased from plt 520 on 09/30/20. Held home Plavix. Hematology consulted and did not recommend any additional work-up or treatment as I believe the cause is relatedto bone marrow suppression due to alcohol abuse. Hepatitis panel and HIV nonreactive. 4. CAD: s/p PCI to pRCA and dRCA in 04/[address] Ross (cardio). Held Plavix in setting of thrombocytopenia as above. Continued home ASA, Lipitor, and Lopressor. 5. Essential HTN: Continued home Prinzide and Lopressor. IV hydralazine PRN. Monitor and titrate PRN. 6. Hyperlipidemia: Continued home Lipitor. 7. Tobacco Abuse: current everyday smoker with 16.5 pack year history. NRT ordered. Cessation education provided. 8. Depression/Anxiety: continued home Elavil and PRN Atarax 9. Code Status: full code 10. DVT Prophylaxis: SCDs Current living situation: home Expected Disposition: home Estimated discharge date: 11/19/2020 Subjective: Personally reviewed patient chart including history, labs, imaging, and previous provider notes. Unable to complete a review of systems as the patient is disoriented secondary to withdrawal. Physical Exam: Visit Vitals BP 161/88 (Patient Position: Lying) Pulse 67 Temp 98.6 F (37 C) (forehead) Resp 20 Comment: pt agitated - refused Ht 5' 4 (1.626 m) Wt 60.9 kg (134 lb 3.2 oz) SpO2 98% BMI 23.04 kg/m General: NAD Eyes: EOMI ENT: neck supple Cardiovascular: Regular rate. Respiratory: Clear to auscultation Gastrointestinal: Soft, non tender Musculoskeletal: No edema. Skin: warm, dry Neuro: Alert. Does not follow directions or answers questions appropriately. Constantly responds, why? Regardless of the question asked Psych: Unable to evaluate, uncooperative Current Medications: amitriptyline 75 mg Oral Nightly aspirin EC 81 mg Oral Daily atorvastatin 80 mg Oral Nightly Certa-Kathrin 5 mL Oral Daily chlordiazePOXIDE 50 mg Oral 3 times per day Followed by [START ON 11/18/2020] chlordiazePOXIDE 25 mg Oral 3 times per day folic acid IV syringe 1 mg Intravenous Daily gabapentin 300 mg Oral Daily lisinopril 40 mg Oral Daily before lunch And hydroCHLOROthiazide 25 mg Oral Daily before lunch levETIRAcetam 500 mg Oral 2x Daily Magnesium Oxide 400 mg Oral Daily Metoprolol Tartrate 25 mg Oral 2x Daily nicotine 21 mg Transdermal Daily pantoprazole 40 mg Oral Daily KCl 40 mEq with lidocaine in D-5% 250 mL IVPB 40 mEq Intravenous Once potassium chloride SA 40 mEq Oral Daily thiamine 100 mg Intravenous Daily Labs, Imaging and Studies reviewed: Recent Labs Lab 11/17/20 0538 11/16/20 0519 11/15/20 2354 HGB 11.2* 10.2* 12.1* HCT 32.9* 29.5* 35.5* PLT 81.0* 57.0* 72.0* Recent Labs Lab 11/17/20 0538 11/16/20 1612 11/16/20 0519 11/15/20 2354 NA 135 -- 135 135 K 3.5* 3.3* 2.7* 3.3* CL 105 -- 101 96 BUN 2* -- 6* 5* CREATININE 0.47* -- 0.45* 0.47* CALCIUM 8.9 -- 8.2* 9.6 No results for input(s): ALT, AST, ALKPHOS, BILITOT in the last 168 hours. Recent Labs Lab 11/16/20 1612 INR 1.04 * Magali Hernández PA - 11/16/2020 8:12 AM EDT [facility] Medicine / [facility] Inpatient Progress Note 11/16/2020 Yonathan Fernandez 1975 [id number] Assessment/Plan: Yonathan Fernandez is a 45 y.o. male with a history of CAD, HTN, seizures, tobacco abuse, and alcohol abuse who presented to [facility] 11/15/2020 with witnessed seizure- like activity at home. ED workup remarkable for plt 72 and LA 8.8. Admitted for further evaluation and management. 1. Alcohol Withdrawal with Seizure-like Activity: previously hospitalized 09/19- 09/30/20 for alcohol withdrawal related seizure and prescribed Keppra at discharge. Patient had not taken Keppra since 11/14/20. Endorsed drinking 1 pint of whiskey daily , last drink 11/14/20. No seizure-like activity observed while in ED. Admit LA 8.8, EtOH negative. Keppra level pending. Restarted Keppra. Banana bag ordered. Librium taper initiated on admit. CIWA. Daily PO MV, thiamine, folic acid. Seizure precautions. Social work consulted. 2. Hypokalemia: K down to 2.7, replace per protocol and monitor. 3. Thrombocytopenia: admit plt 57, decreased from plt 520 on 09/30/20. Held home Plavix. Hematology consulted. 4. CAD: s/p PCI to pRCA and dRCA in 04/[address] Ross (cardio). Held Plavix in setting of thrombocytopenia as above. Continued home ASA, Lipitor, and Lopressor. 5. Essential HTN: Continued home Prinzide and Lopressor. IV hydralazine PRN. Monitor and titrate PRN. 6. Hyperlipidemia: Continued home Lipitor. 7. Tobacco Abuse: current everyday smoker with 16.5 pack year history. NRT ordered. Cessation education provided. 8. Depression/Anxiety: continued home Elavil and PRN Atarax 9. Code Status: full code 10. DVT Prophylaxis: SCDs Current living situation: home Expected Disposition: home Estimated discharge date: ~11/18/20 Subjective: Patient new to me. Personally reviewed patient chart including history, vital signs, labs, and previous provider notes and summarized in the plan above. Patient reports he continues to have alcohol withdrawal symptoms and is feeling terrible. He denies any additional seizure activity none has been reported by staff. Physical Exam: Visit Vitals BP (!) 146/91 (Patient Position: Lying) Pulse 78 Temp 97.9 F (36.6 C) (forehead) Resp 18 Ht 5' 4 (1.626 m) Wt 60.9 kg (134 lb 3.2 oz) SpO2 95% BMI 23.04 kg/m General: NAD Eyes: EOMI ENT: neck supple Cardiovascular: Regular rate. Respiratory: Clear to auscultation Gastrointestinal: Soft, non tender Musculoskeletal: No edema. Skin: warm, dry Neuro: Alert. No tremors. Psych: Mood appropriate. Current Medications: amitriptyline 75 mg Oral Nightly aspirin EC 81 mg Oral Daily atorvastatin 80 mg Oral Nightly Certa-Kathrin 5 mL Oral Daily chlordiazePOXIDE 50 mg Oral 4 times per day Followed by [START ON 11/17/2020] chlordiazePOXIDE 50 mg Oral 3 times per day Followed by [START ON 11/18/2020] chlordiazePOXIDE 25 mg Oral 3 times per day folic acid IV syringe 1 mg Intravenous Daily gabapentin 300 mg Oral Daily lisinopril 40 mg Oral Daily before lunch And hydroCHLOROthiazide 25 mg Oral Daily before lunch levETIRAcetam 500 mg Oral 2x Daily Magnesium Oxide 400 mg Oral Daily Metoprolol Tartrate 25 mg Oral 2x Daily nicotine 21 mg Transdermal Daily pantoprazole 40 mg Oral Daily KCl 40 mEq with lidocaine in D-5% 250 mL IVPB 40 mEq Intravenous Q4H potassium chloride SA 40 mEq Oral Daily thiamine 100 mg Intravenous Daily Labs, Imaging and Studies reviewed: Recent Labs Lab 11/16/20 0511/15/20 2354 HGB 10.2* 12.1* HCT 29.5* 35.5* PLT 57.0* 72.0* Recent Labs Lab 11/16/20 0511/15/20 2354 NA 135 135 K 2.7* 3.3* CL 101 96 BUN 6* 5* CREATININE 0.45* 0.47* CALCIUM 8.2* 9.6 No results for input(s): ALT, AST, ALKPHOS, BILITOT in the last 168 hours. No results for input(s): INR in the last 168 hours. documented in this [facility]06-20-2021 Consult note* Joyce Mondragon MD - 11/16/2020 10:32 AM EDT Associated Order(s): Inpatient consult to Hematology thrombocytopenia, PLT 500s- >50 in 1 month Inpatient consult to Hematology thrombocytopenia, PLT 500s->50 in 1 month Consult performed by: Joyce Mondragon MD Consult ordered by: Magali Hernández PA Impression / Plan 1. Thrombocytopenia: Most likely proximal cause is bone marrow suppression due to alcohol. Some degree of underlying liver disease may be partially responsible. Peripheral smear does not show evidence of intravascular hemolytic process or ITP. Recent ultrasound showed hepatic steatosis. Agree with folic acid supplementation. In the interest of completeness, I will order hepatitis and HIV serology. I do not think that additional work-up or treatment is warranted at this time. We will follow. History Yonathan Fernandez is a 45 y.o. male who was admitted to the hospital for seizures due to alcohol withdrawal. He has a history of heavy daily alcohol consumption. On admission, he was noted to have thrombocytopenia. Previous platelet counts were normal. CBC also shows macrocytosis. B12 and folate levels were normal. He does not have a history of hepatitis and does not have record of hepatitis serology. The patient denies abnormal bleeding or bruising. There is no previous history of malignancy. Medications Prior to Admission Medication Sig Dispense Refill Last Dose albuterol 108 (90 Base) MCG/ACT inhaler INHALE 2 PUFFS INTO THE LUNGS EVERY 4 HOURS NEEDED FOR WHEEZING AND/OR SHORTNESS OF BREATH. 18 g 4 11/15/2020 amitriptyline (ELAVIL) 75 MG tablet TAKE 1 TABLET BY MOUTH NIGHTLY. 30 tablet 6 Past Week aspirin EC (ECOTRIN LOW STRENGTH) 81 MG EC tablet Take 1 tablet by mouth daily. 30 tablet 1 11/15/2020 atorvastatin (LIPITOR) 80 MG tablet TAKE 1 TABLET BY MOUTH NIGHTLY. 30 tablet 11 Past Week Blood Pressure Monitoring (BLOOD PRESSURE CUFF) MISC Use PRN 1 each 0 clopidogrel (PLAVIX) 75 MG tablet TAKE 1 TABLET BY MOUTH DAILY. 30 tablet 2 11/15/2020 folic acid (FOLVITE) 1 MG tablet Take 1 tablet by mouth daily. 30 tablet 1 11/15/2020 gabapentin (NEURONTIN) 300 MG capsule TAKE 1 CAPSULE BY MOUTH 3 TIMES DAILY. (Patient taking differently: Take 300 mg by mouth daily.) 90 capsule 2 11/15/2020 hydrOXYzine (ATARAX) 50 MG tablet Take 1 tablet by mouth every 6 hours as needed for Anxiety (for MILD anxiety- patient reported anxiety 1-4). 30 tablet 0 Past Week levETIRAcetam (KEPPRA) 500 MG tablet Take 1 tablet by mouth two times a day. 120 tablet 3 11/15/2020 lisinopril-hydrochlorothiazide (PRINZIDE,ZESTORETIC) 20-12.5 MG per tablet TAKE 2 TABLETS BY MOUTH DAILY. 60 tablet 6 11/15/2020 Magnesium Oxide (MAG-OX) 400 (241.3 Mg) MG tablet Take 1 tablet by mouth daily. 30 tablet 0 11/15/2020 Metoprolol Tartrate (LOPRESSOR) 25 MG tablet TAKE 1 TABLET BY MOUTH TWO TIMES A DAY. 60 tablet 2 11/15/2020 pantoprazole (PROTONIX) 40 MG tablet TAKE 1 TABLET BY MOUTH DAILY. 30 tablet 2 11/15/2020 potassium chloride SA (K-DUR,KLOR-CON M20) 20 MEQ tablet Take 2 tablets by mouth daily. 30 tablet 11/15/2020 sildenafil (VIAGRA) 100 MG tablet Take 1 tablet by mouth daily as needed. 30 tablet 6 Past Week Thiamine HCl (B-1) 100 MG TABS TAKE 1 TABLET BY MOUTH DAILY. 30 tablet 3 11/15/2020 vitamin B-12 (CYANOCOBALAMIN) 1000 MCG tablet TAKE ONE TABLET BY MOUTH ONCE DAILY 30 tablet 3 11/15/2020 No Known Allergies Past Medical History: Diagnosis Date Alcohol abuse Hyperlipidemia Hypertension Myocardial infarct (HCC) Seizures (HCC) Past Surgical History: Procedure Laterality Date arm surgery CORONARY ANGIOPLASTY WITH STENT PLACEMENT CORONARY ANGIOPLASTY WITH STENT PLACEMENT HERNIA REPAIR TONSILLECTOMY VASECTOMY Social History Tobacco Use Smoking status: Current Every Day Smoker Packs/day: 1.00 Years: 20.00 Pack years: 20.00 Types: Cigarettes, Cigars Smokeless tobacco: Never Used Substance Use Topics Alcohol use: Yes Comment: 12 pack on Fridays Family History Problem Relation Age of Onset Diabetes Maternal Grandfather Review of systems: Constitutional: Denies fever or night sweats. HEENT: No epistaxis, no gingival bleeding. Respiratory: No hemoptysis. GI: No hematemesis, melena, or hematochezia. : No hematuria. Musculoskeletal: No hemarthroses. Extremities: No cords, calf pain, leg swelling. Skin: No bruising, petechiae, jaundice. Neurologic: Positive for seizures prior to admission. Physical Exam General appearance: alert, cooperative and no distress Eyes: No scleral icterus. No conjunctival hemorrhage Throat: No gingival bleeding Lungs: Equal breath sounds Heart: Normal rate Abdomen: No palpable splenomegaly Extremities: no cyanosis, clubbing, or edema Skin: Skin warm and dry, no rashes Neurologic: Grossly normal, alert and cooperative. face symmetrical, moving all extremities Lab Lab Results Component Value Date WHITEBLOODCE 4.3 11/16/2020 HGB 10.2 (L) 11/16/2020 HCT 29.5 (L) 11/16/2020 MCV 102.8 (H) 11/16/2020 PLT 57.0 (L) 11/16/2020 Peripheral smear examination: RBC: No nrbc, fragments, or spherocytes. WBC: Normal maturation. Somehypersegmentation of PMNs noted. No abnormal forms seen. Platelets: Decreased. Normal morphology. No large platelets seen. No clumping. Lab Results Component Value Date ALT 25 09/21/2020 AST 97 (H) 09/21/2020 ALKPHOS 115 09/21/2020 BILITOT 1.4 09/21/2020 Lab Results Component Value Date CREATININE 0.45 (L) 11/16/2020 BUN 6 (L) 11/16/2020 NA 135 11/16/2020 K 2.7 (LL) 11/16/2020 CL 101 11/16/2020 CO2 27 11/16/2020 Joyce Mondragon M.D. 11/16/2020 10:32 AM documented in this [place] [address]-20-2021 Emergency department Note* Daniela Bautista MST - 11/16/2020 1:24 AM EDT Transport requested * Daniela Bautista MST - 11/16/2020 1:17 AM EDT 4137 clean * Daniela Bautista MST - 11/16/2020 1:16 AM EDT BED REQUESTED * Tameka Hill MST - 11/16/2020 12:48 AM EDT Awaiting [facility] orders * Shiv Park MD - 11/16/2020 12:43 AM EDT ED Diagnosis and Summary Dx: 1. Seizure-like activity (HCC) 2. Alcohol withdrawal syndrome with complication (HCC) Medical Decision Making Number of Diagnoses or Management Options Alcohol withdrawal syndrome with complication (HCC) Seizure-like activity (HCC) Diagnosis management comments: Patient is noted to have an elevated lactate consistent with reported history of seizure. Ethanol level is undetectable. No other significant abnormalities noted. Patient was placed on CIWA protocol. Patient has been ordered IV fluids and a banana bag. Patient will beadmitted to the hospital at this time for ongoing monitoring and treatment for alcohol withdrawal. ED Summary: No orders to display Recent Results (from the past 24 hour(s)) CBC with Differential Collection Time: 11/15/20 11:54 PM Result Value Ref Range White Blood Cells 5.7 4.3 - 10.3 x10 3/uL RBC 3.45 (L) 3.70 - 5.70 x10 6/uL Hgb 12.1 (L) 12.8 - 17.7 g/dL Hematocrit 35.5 (L) 37.7 - 51.1 % MCV 102.9 (H) 80.6 - 99.0 fL MCH 35.1 (H) 27.0 - 34.2 pg MCHC 34.1 31.4 - 36.2 g/dl RDW 15.8 (H) 11.5 - 14.5 % Platelets 72.0 (L) 150 - 400 x10 3/uL Neutrophil 79.6 % Absolute Neutrophil 4.6 2.4 - 6.6 10 3/uL Lymphocyte 12.6 % Absolute Lymph 0.7 (L) 1.2 - 3.3 10 3/uL Monocytes 5.8 % Absolute [place] 0.3 0.2 - 0.6 10 3/uL Eosinophil 1.0 % Absolute Eosinophil 0.1 0.1 - 0.3 10 3/uL Basophil 0.5 % Absolute Basophil 0.0 0.0 - 0.1 10 3/uL Immature Granulocytes 0.5 % Absolute Immature Granulocytes 0.0 0 10 3/uL nRBC 0 0 - 1 nRBC 0 0 - 1 Basic metabolic panel aka Chem 8 Collection Time: 11/15/20 11:54 PM Result Value Ref Range Sodium 135 135 - 147 mmol/L Potassium 3.3 (L) 3.6 - 5.1 mmol/L Chloride 96 96 - 109 mmol/L CO2 22 22 - 30 mmol/L Glucose 126 (H) 65 - 100 mg/dL BUN 5 (L) 8 - 26 mg/dL Creatinine 0.47 (L) 0.6 - 1.2 mg/dL Calcium 9.6 8.4 - 10.4 mg/dL LACTATE Collection Time: 11/15/20 11:54 PM Result Value Ref Range Lactate 8.8 (HH) 0.7 - 2.0 mmol/L Ethanol Collection Time: 11/15/20 11:54 PM Result Value Ref Range Ethanol-Serum <10 NOT DETECTED mg/dL GLOMERULAR FILTRATION RATE Collection Time: 11/15/20 11:54 PM Result Value Ref Range GFR >60 Medications LORazepam injection 1 mg (has no administration in time range) LORazepam injection 2-4 mg (has no administration in time range) LORazepam (ATIVAN) tablet 2-4 mg (has no administration in time range) Or LORazepam injection 2-4 mg (has no administration in time range) Or LORazepam injection 2-4 mg (has no administration in time range) m.v.i. adult 10 mL, thiamine (VITAMIN B1) 100 mg, folic acid (VITAMIN B9) 1 mg in sodium chloride 0.9 % 1,000 mL infusion (BANANA BAG) (has no administration in time range) 0.9% NaCl infusion (has no administration in time range) Procedures History: Chief Complaint Patient presents with Seizures Patient's medications and allergies were reviewed. Past Medical History: Diagnosis Date Alcohol abuse Hyperlipidemia Hypertension Myocardial infarct (HCC) Seizures (HCC) Past Surgical History: Procedure Laterality Date arm surgery CORONARY ANGIOPLASTY WITH STENT PLACEMENT CORONARY ANGIOPLASTY WITH STENT PLACEMENT HERNIA REPAIR TONSILLECTOMY VASECTOMY Current Outpatient Medications Medication albuterol amitriptyline aspirin EC atorvastatin Blood Pressure Cuff clopidogrel folic acid gabapentin hydrOXYzine levETIRAcetam lisinopril-hydrochlorothiazide Magnesium Oxide Metoprolol Tartrate pantoprazole potassium chloride SA sildenafil B-1 vitamin B-12 No Known Allergies This is a 45-year-old male with history of alcohol abuse and seizure-like activity who presents theemergency department for reported seizure-like activity. EMS was called by the patient's mother dueto the patient having seizures. EMS is unavailable during my interview the patient. Patient reports that he does not recall what happens but states that he woke up in the ambulance. He reports that his mother is the one who called the ambulance. He reports that he does drink about a pint of vodka aday but has not had anything to drink since yesterday because he states that he did not feel like it today and is wanting to quit drinking. Patient has been placed on Keppra after recent visit to in neurology. The patient reports that he has been taking this medication patient is currentlyalert and oriented x4. He is noted to be mildly tremulous but is not diaphoretic. He denies any hallucinations. The patient does not have any other acute complaints. Review of Systems Constitutional: Negative for chills and fever. HENT: Negative. Negative for facial swelling and voice change. Eyes: Negative. Negative for discharge and redness. Respiratory: Negative. Negative for chest tightness and shortness of breath. Cardiovascular: Negative. Negative for chest pain and palpitations. Gastrointestinal: Negative. Negative for abdominal pain, nausea and vomiting. Endocrine: Negative. Genitourinary: Negative. Negative for dysuria and flank pain. Musculoskeletal: Negative. Negative for arthralgias and myalgias. Skin: Negative. Negative for rash. Allergic/Immunologic: Negative. Neurological: Positive for tremors and seizures. Negative for numbness and headaches. Hematological: Negative. Negative for adenopathy. Psychiatric/Behavioral: Negative. Negative for behavioral problems and confusion. All other systems reviewed and are negative. I have personally reviewed the patients past medical history as documented in the chart including past family history, social history, allergies, and past surgical history. Physical Exam: Vitals: 11/15/20 2351 11/15/20 2352 11/16/20 0001 BP: (!) 173/95 (!) 173/95 (!) 147/97 BP Location: Left arm Patient Position: Lying Pulse: 92 110 92 Resp: 18 16 Temp: 99.5 F (37.5 C) TempSrc: Oral SpO2: 96% 96% 96% Weight: 140 lb (63.5 kg) Height: 5' 4 (1.626 m) Physical Exam Vitals and nursing note reviewed. Constitutional: Appearance: He is well-developed. He is not diaphoretic. HENT: Head: Normocephalic and atraumatic. Right Ear: External ear normal. Left Ear: External ear normal. Nose: Nose normal. Eyes: Pupils: Pupils are equal, round, and reactive to light. Neck: Trachea: No tracheal deviation. Cardiovascular: Rate and Rhythm: Normal rate and regular rhythm. Heart sounds: No murmur heard. No friction rub. Pulmonary: Effort: Pulmonary effort is normal. No respiratory distress. Breath sounds: No wheezing or rales. Abdominal: General: There is no distension. Palpations: Abdomen is soft. Tenderness: There is no abdominal tenderness. There is no guarding. Musculoskeletal: General: Normal range of motion. Cervical back: Neck supple. Skin: General: Skin is warm. Capillary Refill: Capillary refill takes less than 2 seconds. Findings: No erythema. Neurological: Mental Status: He is alert and oriented to person, place, and time. Comments: Tremors noted with outstretched upper extremity. This note was constructed and dictated with the use of the [employer] voice recognition software program which may omit or change portions of the dictation, and/or substitute, homonyms and thereby alter the original intent of the dictated statement. Unintended gender changes may also be incorporated due to misinterpretation of the spoken words. Shiv Park MD 11/16/20 0045 * Brooklynn Wilcox RN - 11/16/2020 12:20 AM EDT Results received at 0020. From lab. Critical Lab result lactate 8.8. Results read back and confirmed. Result given to Dr. Park. * Brooklynn Wilcox RN - 11/15/2020 11:49 PM EDT Pt arrives to room #9 via [facility] following seizure at home with hx of same. EMS reports patient drinks a pint of alcohol per day - pt states did not drink today I wasn't in the mood. Pt alert and oriented, respers easy and unlabored, NAD. Skin P/W/D * Sandi Curtis RN - 11/15/2020 11:48 PM EDT Bed: [address] [place] [address] Expected date: 11/15/20 Expected time: 11:37 PM Means of arrival: [facility] Comments: Seizure with hx documented in [facility]06-20-2021 History and physical note* Maxine Mendoza PA - 11/16/2020 1:08 AM EDT [facility] Medicine / [facility] History and Physical 11/16/20 Yonathan Ceballosell 1975 [id number] Assessment/Plan: Yonathan Fernandez is a 45 y.o. male with a history of CAD, HTN, seizures, tobacco abuse, and alcohol abuse who presented to [facility] 11/15/2020 with witnessed seizure- like activity at home. ED workup remarkable for plt 72 and LA 8.8. Admitted for further evaluation and management. 1. Alcohol Withdrawal with Seizure-like Activity: previously hospitalized 09/19- 09/30/20 for alcohol withdrawal related seizure and prescribed Keppra following discharge. Patient stated he had not takenKeppra since 11/14/20. Endorsed drinking 1 pint of whiskey daily and stated last drink was on 11/14/20. No seizure-like activity observed while in ED. Admit LA 8.8, EtOH negative. Keppra level pending.Banana bag ordered. Librium taper initiated on admit. CIWA. Daily PO MV, thiamine, folic acid. Seizure precautions. Social work consulted. 2. Thrombocytopenia: admit plt 72, decreased from plt 520 on 09/30/20. Unclear if true drop or potential lab error. Repeat CBC ordered. Held home Plavix. If repeat platelet stable, consider hematology consult. 3. CAD: s/p PCI to pRCA and dRCA in 04/[address] Ross (cardio). Held on Plavix in setting of thrombocytopenia as above. Continued home ASA, Lipitor, and Lopressor. 4. Essential HTN: continued home Prinzide and Lopressor. IV hydralazine PRN. Monitor and titrate PRN. 5. Hyperlipidemia: continued home Lipitor 6. Tobacco Abuse: current everyday smoker with 16.5 pack year history. NRT ordered. Cessation education provided. 7. Depression/Anxiety: continued home Elavil and PRN Atarax 8. Code Status: full code 9. DVT Prophylaxis: SCDs Current living situation: home Expected Disposition: home Estimated discharge date: ~11/18/20 Chief Complaint: Witnessed seizure like activity History of Present Illness: Yonathan Fernandez is a 45 y.o. male with a history of CAD, HTN, seizures, tobacco abuse, and alcohol abuse who presented to [facility] 11/15/2020 with witnessed seizure- like activity at home. ED workup remarkable for plt 72 and LA 8.8. Admitted for further evaluation and management. Patient resting in bed on interview. Patient is alert and oriented to person, place, and situation but disoriented to time. Patient states he fell out of his chair at home while watching TV. States his mom called the ambulance because he was having a seizure. States he has previously been hospitalized for seizure ~1 month [employer] which was the first seizure he never had in his life. States seizure was secondary to alcohol withdrawal. Patient endorses drinking 1 pint of whiskey daily. States last drink was on 11/14/20 sometime between noon and 1700. Patient also states he is not taking his Keppra since 11/14/20 as he forgot. Patient states he has felt SOB since coming to the hospital. Denies any CP, abdominal pain, N/V/D, or constipation. Patient states he did vomit once on 11/15/20. Denied any hematemesis or coffee-ground emesis. Spoke to patient about drinking. Patient did express interest in quitting. States he knows of some support groups but has never tried any. Patient states his mother would be supportive of his effortsto quit drinking. ROS: 10 systems were reviewed and negative, except as noted above Past Medical, Surgical, Social, Family History: Past Medical History: Diagnosis Date Alcohol abuse Hyperlipidemia Hypertension Myocardial infarct (HCC) Seizures (HCC) Past Surgical History: Procedure Laterality Date arm surgery CORONARY ANGIOPLASTY WITH STENT PLACEMENT CORONARY ANGIOPLASTY WITH STENT PLACEMENT HERNIA REPAIR TONSILLECTOMY VASECTOMY Social History Socioeconomic History Marital status: Single Spouse name: Not on file Number of children: Not on file Years of education: Not on file Highest education level: Not on file Occupational History Not on file Tobacco Use Smoking status: Current Every Day Smoker Packs/day: 1.00 Years: 20.00 Pack years: 20.00 Types: Cigarettes, Cigars Smokeless tobacco: Never Used Vaping Use Vaping Use: Never used Substance and Sexual Activity Alcohol use: Yes Comment: 12 pack on Fridays Drug use: No Sexual activity: Yes Partners: Female control/protection: Surgical Other Topics Concern Not on file Social History Narrative Not on file Social Determinants of Health Financial Resource Strain: Difficulty of Paying Living Expenses: Food Insecurity: Worried About Running Out of Food in the Last Year: Ran Out of Food in the Last Year: Transportation Needs: Lack of Transportation (Medical): Lack of Transportation (Non-Medical): Physical Activity: Days of Exercise per Week: Minutes of Exercise per Session: Stress: Feeling of Stress : Social Connections: Frequency of Communication with Friends and Family: Frequency of Social Gatherings with Friends and Family: Attends [employer] Services: Active Member of Clubs or Organizations: Attends Club or Organization Meetings: Marital Status: Intimate Partner Violence: Fear of Current or Ex-Partner: Emotionally Abused: Physically Abused: Sexually Abused: Family History Problem Relation Age of Onset Diabetes Maternal Grandfather Home Medications: No current facility-administered medications on file prior to encounter. Current Outpatient Medications on File Prior to Encounter Medication Sig Dispense Refill albuterol 108 (90 Base) MCG/ACT inhaler INHALE 2 PUFFS INTO THE LUNGS EVERY 4 HOURS NEEDED FOR WHEEZING AND/OR SHORTNESS OF BREATH. 18 g 4 amitriptyline (ELAVIL) 75 MG tablet TAKE 1 TABLET BY MOUTH NIGHTLY. 30 tablet 6 aspirin EC (ECOTRIN LOW STRENGTH) 81 MG EC tablet Take 1 tablet by mouth daily. 30 tablet 1 atorvastatin (LIPITOR) 80 MG tablet TAKE 1 TABLET BY MOUTH NIGHTLY. 30 tablet 11 Blood Pressure Monitoring (BLOOD PRESSURE CUFF) MISC Use PRN 1 each 0 clopidogrel (PLAVIX) 75 MG tablet TAKE 1 TABLET BY MOUTH DAILY. 30 tablet 2 folic acid (FOLVITE) 1 MG tablet Take 1 tablet by mouth daily. 30 tablet 1 gabapentin (NEURONTIN) 300 MG capsule TAKE 1 CAPSULE BY MOUTH 3 TIMES DAILY. (Patient taking differently: Take 300 mg by mouth daily.) 90 capsule 2 hydrOXYzine (ATARAX) 50 MG tablet Take 1 tablet by mouth every 6 hours as needed for Anxiety (for MILD anxiety- patient reported anxiety 1-4). 30 tablet 0 levETIRAcetam (KEPPRA) 500 MG tablet Take 1 tablet by mouth two times a day. 120 tablet 3 lisinopril-hydrochlorothiazide (PRINZIDE,ZESTORETIC) 20-12.5 MG per tablet TAKE 2 TABLETS BY MOUTH DAILY. 60 tablet 6 Magnesium Oxide (MAG-OX) 400 (241.3 Mg) MG tablet Take 1 tablet by mouth daily. 30 tablet 0 Metoprolol Tartrate (LOPRESSOR) 25 MG tablet TAKE 1 TABLET BY MOUTH TWO TIMES A DAY. 60 tablet 2 pantoprazole (PROTONIX) 40 MG tablet TAKE 1 TABLET BY MOUTH DAILY. 30 tablet 2 potassium chloride SA (K-DUR,KLOR-CON M20) 20 MEQ tablet Take 2 tablets by mouth daily. 30 tablet 0 sildenafil (VIAGRA) 100 MG tablet Take 1 tablet by mouth daily as needed. 30 tablet 6 Thiamine HCl (B-1) 100 MG TABS TAKE 1 TABLET BY MOUTH DAILY. 30 tablet 3 vitamin B-12 (CYANOCOBALAMIN) 1000 MCG tablet TAKE ONE TABLET BY MOUTH ONCE DAILY 30 tablet 3 No Known Allergies Physical Exam: Visit Vitals BP (!) 146/91 Comment: RN aware Pulse 85 Temp 97.9 F (36.6 C) (forehead) Resp 18 Ht 5' 4 (1.626 m) Wt 60.9 kg (134 lb 3.2 oz) SpO2 94% BMI 23.04 kg/m General: NAD Eyes: EOMI ENT: neck supple Cardiovascular: Regular rate and rhythm Respiratory: Clear to auscultation Gastrointestinal: Soft, non tender Genitourinary: no suprapubic tenderness Musculoskeletal: No edema Skin: warm, dry Neuro: Alert, oriented to person, place, and situation, unable to recall month or year Psych: Mood appropriate Labs, Imaging, and Studies reviewed: Recent Labs Lab 11/15/20 2354 HGB 12.1* HCT 35.5* PLT 72.0* Recent Labs Lab 11/15/20 2354 NA 135 K 3.3* CL 96 BUN 5* CREATININE 0.47* CALCIUM 9.6 Associated attestation - Araceli Mcbride MD - 11/16/2020 9:56 AM EDT [facility] HOSPITALIST SERVICE ATTENDING PHYSICIAN ATTESTATION NOTE I have personally seen and examined the patient earlier independently of Maxine Mendoza [facility] provider, and have personally discussed the case with the provider. I agree with the history, examination, assessment, and plan, except as documented below: Date Of Service: 11/16/2020 Pertinent History/ Edit: Pt was interviewed and examined at bedside with all appropriate PPE during COVID-19 Pandemic 45-year-old male patient with known history of alcohol abuse dependence and prior history of alcohol withdrawal seizures who has recently been started on Keppra by Dr. Garcia (neurology) came to emergency department apparently after having another seizure. Patient typically drinks 1 pint of whiskey daily. Last drink was on 11/14/2020 sometime between noon and 5 PM. Apparently also followed to take his Keppra on 11/14/2020. During my evaluation patient is somewhat slow to respond and oriented to person and place. Spoke to patient about drinking. Patient did express interest in quitting. States he knows of some support groups but has never tried any. Patient states his mother would be supportive of his effortsto quit drinking. ROS: Total of 14 systems were reviewed & beside the pertinence given above the remainder is negative. Physical exam: height is 5' 4 (1.626 m) and weight is 60.9 kg (134 lb 3.2 oz). His forehead temperature is 98.2 F(36.8 C). His blood pressure is 131/75 and his pulse is 75. His respiration is 19 and oxygen saturation is 95%. General: NAD Eyes: EOMI ENT: neck supple Cardiovascular: Regular rate. Respiratory: Clear to auscultation Gastrointestinal: Soft, non tender Genitourinary: no suprapubic tenderness Musculoskeletal: No edema Skin: warm, dry Neuro: Alert. Minimally nonfocal Psych: Mood appropriate. Assessment/Plan: Possible alcohol withdrawal seizure versus breakthrough seizure: No patient was not started on Keppra I do not believe a definitive diagnosis of nonalcohol withdrawal seizures has been made thus far.Regardless patient has missed his Keppra in the last 36 hours. Also last alcoholic beverage was on 11/14/2020. Blood alcohol level on admission negative. Though Keppra level has been ordered this is asend out and will likely not be back. Patient started on Librium taper with seizure precautions. Keppra resumed. Thrombocytopenia unclear etiology: Platelet count 72 down from 520 on 09/30/2020. No evidence of bleeding. Repeat platelet count ordered and if still significantly low will need further evaluation for other etiologies such as ITP TTP etc. I do not believe this degree of acute drop in thrombocytopeniais related to alcohol per se. CAD: Status post PTCA and stenting in 04/2019. In light of significant thrombocytopenia platelets placed on hold and can potentially be discontinued into monotherapy with aspirin at present time. Please refer to detailed H&P of JAQUELINE for other chronic medical problems and management. The chart has been reviewed in its entirety by me personally, including relevant previous visits/notes, radiographic studies, EKG, laboratory results and microbiology/pathology results and compared with any previous existing studies as needed. Signed: Araceli Mcbride MD documented in this [facility]05-04-2021 Hospital Discharge instructions* Instructions* Lorie Somers RN - 09/30/2020 Alcohol Detoxification and Withdrawal: Care Instructions Your Care Instructions If you drink alcohol regularly and then suddenly stop, you may go through some physical and emotional problems while the alcohol clears out of your system. Clearing the alcohol from your body is called detoxification, or detox. Physical and emotional problems that may happen during detox are calledwithdrawal. Symptoms of withdrawal can be scary and dangerous. Mild symptoms include nausea and vomiting, sweating, shakiness, and intense worry. Severe symptoms include being confused and irritable, feeling things on your body that are not there, seeing or hearing things that are not there, and trembling. Youmay even have seizures. If your symptoms become severe you must see a doctor. People who drink large amounts of alcohol should not try to detox at home. A person can of severe alcohol withdrawal. Symptoms of alcohol withdrawal may begin from 4 to 12 hours after you stop drinking. But they may not start for several days after the last drink. They can last a few days. It is hard to stop drinking. But when you have cleared the alcohol from your system, you will be able to start the next part of your life, free from the burden of being dependent. Follow-up care is a kulkarni part of your treatment and safety. Be sure to make and go to all appointments, and call your doctor if you are having problems. It's also a good idea to know your test resultsand keep a list of the medicines you take. How can you care for yourself at home? Before you stop drinking, talk to your doctor about how you plan to stop. Be sure to be completely honest with him or her about how much you have been drinking. Your doctor will figure out whether you need to detox in a supervised medical center. Take your medicines exactly as prescribed. Call your doctor if you think you are having a problem with your medicine. Make sure someone you trust is with you the whole time. Have friends and family members take turns staying with you until you are done with detox. Put a list of emergency numbers near the phone. This should include your doctor, the police, the nearest hospital and emergency room, and neighbors who can help if needed. Make sure all alcohol is removed from the house before you start. This includes beverages as well as medicines, rubbing alcohol, and certain flavorings like vanilla extract. Keep drinking buddies away during the time you are going through detox. Make your surroundings calm. Soft lights, soft music, and a comfortable place to sit or lie down can help make the process easier. Drink lots of fluids and eat snacks such as fruit, cheese and crackers, and pretzels. Foods high incarbohydrate may help reduce the craving for alcohol. Understand that detox is going to be hard. Keep in mind that the people watching over you during detox are there to help. Explain to them before you start that you may not act like yourself until detox is finished. Consider joining a support group such as Alcoholics Anonymous. Sharing your experiences with other people who face similar challenges may help you feel less overwhelmed. Keep the numbers for these national suicide hotlines: 2-988-866-TALK ( ) and 0-472-VJLPRUT ( ). If you or someone you know talks about suicide or feeling hopeless, get help right away. When should you call for help? Call 911 anytime you think you may need emergency care. For example, call if: You feel you cannot stop from hurting yourself or someone else. You vomit many times and cannot stop. You vomit blood or what looks like coffee grounds. You have trouble breathing or are breathing very fast. Your heart beats more than 120 times a minute and will not slow down. You have chest pain. You have a seizure. You see or feel things that are not there (hallucinate). If you are caring for someone who is going through detox, call if: The person passes out (loses consciousness). The person sees or feels things that are not there and sees or hears the same things many times. The person is very agitated and will not calm down. The person becomes violent or threatens to be violent. The person has a seizure. Call your doctor now or seek immediate medical care if: You have a high fever. You have severe belly pain. You are very shaky. Watch closely for changes in your health, and be sure to contact your doctor if: You do not get better as expected. Where can you learn more? Go to https://www.healthwise.net/patientEd Enter D051 in the search box to learn more about Alcohol Detoxification and Withdrawal: Care Instructions. Current as of: November 26, 2019 Content Version: 12. [employer]. Care instructions adapted under license by your healthcare professional. If you have questions about a medical condition or this instruction, always ask your healthcare professional. [employer] disclaims any warranty or liability for your use of this information. Learning About Alcohol Use Disorder What is alcohol use disorder? Alcohol use disorder means that a person drinks alcohol even though it causes harm to themselves orothers. It can range from mild to severe. The more signs of this disorder you have, the more severeit may be. Moderate to severe alcohol use disorder is sometimes called addiction. People who have it may find it hard to control their use of alcohol. People who have this disorder may argue with others about how much they're drinking. Their job may be affected because of drinking. They may drink when it's dangerous or illegal, such as when they drive. They also may have a strong need, or craving, to drink. They may feel like they must drink justto get by. Their drinking may increase their risk of getting hurt or being in a car crash. Over time, drinking too much alcohol may cause health problems. These may include high blood pressure, liver problems, or problems with digestion. What are the signs? Maybe you've wondered about your alcohol habits, or how to tell if your drinking is becoming a problem. Here are some of the signs of alcohol use disorder. You may have it if you have two or more of the following signs: You drink larger amounts of alcohol than you ever meant to. Or you've been drinking for a longer time than you ever meant to. You can't cut down or control your use. Or you constantly wish you could cut down. You spend a lot of time getting or drinking alcohol or recovering from its effects. You have strong cravings for alcohol. You can no longer do your main jobs at work, at school, or at home. You keep drinking alcohol, even though your use hurts your relationships. You have stopped doing important activities because of your alcohol use. You drink alcohol in situations where doing so is dangerous. You keep drinking alcohol even though you know it's causing health problems. You need more and more alcohol to get the same effect, or you get less effect from the same amount over time. This is called tolerance. You have uncomfortable symptoms when you stop drinking alcohol or use less. This is called withdrawal. Alcohol use disorder can range from mild to severe. The more signs you have, the more severe the disorder may be. Moderate to severe alcohol use disorder is sometimes called addiction. You might not realize that your drinking is a problem. You might not drink large amounts when you drink. Or you might go for days or weeks between drinking episodes. But even if you don't drink very often, your drinking could still be harmful and put you at risk. How is alcohol use disorder treated? Getting help is up to you. But you don't have to do it alone. There are many people and kinds of treatments that can help. Treatment for alcohol use disorder can include: Group therapy, one or more types of counseling, and alcohol education. Medicines that help to: ? Reduce withdrawal symptoms and help you safely stop drinking. ? Reduce cravings for alcohol. Support groups. These groups include Alcoholics Anonymous and [employer] (Self-Management and Recovery Training). Some people are able to stop or cut back on drinking with help from a counselor. People who have moderate to severe alcohol use disorder may need medical treatment. They may need to stay in a hospital or treatment center. You may have a treatment team to help you. This team may include a psychologist or psychiatrist, counselors, doctors, social workers, nurses, and a sample case porter. A sample case porter helps plan and manage your treatment. Follow-up care is a kulkarni part of your treatment and safety. Be sure to make and go to all appointments, and call your doctor if you are having problems. It's also a good idea to know your test resultsand keep a list of the medicines you take. Where can you learn more? Go to https://www.[employer].net/patientEd Enter H758 in the search box to learn more about Learning About Alcohol Use Disorder. Current as of: November 26, 2019 Content Version: 12.8 [employer]. Care instructions adapted under license by your healthcare professional. If you have questions about a medical condition or this instruction, always ask your healthcare professional. [employer] disclaims any warranty or liability for your use of this information. [facility] Miscellaneous Notes* Nursing - Lorie Somers RN - 09/30/2020 1:31 PM EDT Work/School Excuse Letter [facility] ([address] [place] [address]) [id number] [place] [place] [id number] September 30, 2020 Patient: Yonathan Fernandez Date of : 1975 Date of Visit: 09/19/2020 To Whom It May Concern: Yonathan Fernandez was seen and treated at [facility] from 09/19/2020 to 09/30/2020. Additional Information: If you have any questions or concerns, please don't hesitate to call. Provider Signature: * D/C Planning - Sharmin Aguero RN - 09/30/2020 1:04 PM EDT Home Health Referral Post discharge services discussed with pt. Educated patient on Home Care and services available. Patient [facility] chosen [facility] Hospital homecare. and agreeable to SN PT services. Patient Demographics Name:Yonathan Fernandez Discharge Address: [address] [place] [address] (Home) *Preferred* PCP HAYDEN HERRERA Active Insurance as of 09/19/2020 Primary Coverage Payor Plan Insurance Group Employer/Plan Group [facility] [id number] Payor Plan Address Payor Plan Phone Number Payor Plan Fax Number Effective Dates [facility] [id number] 09/19/2018 - None Entered [facility] [id number] Subscriber Name Subscriber Date Member ID YONATHAN FERNANDEZ 1975 [id number] Emergency Contact(s) Name Relation Home Work Mobile Shanice Fernandez Mother [phone] None,Provided Primary Telephone # Secondary Telephone # Emergency Contact and # PCP: Hayden Herrera Following Physician:Dr. Monisha Leong Agreeable to Follow: Yes notified Sandhya 09/30 Language/Communication Barrier: No, Primary Diagnosis & Reason for Services Assessment/Plan: Yonathan Fernandez is a 45 y.o. male with a history of CAD, alcohol abuse, and alcohol withdrawal seizures who presented to [facility] 09/19/2020 with seizure-like activity witnessed by the patient's mother in the context of alcohol withdrawal. Patient was initially admitted to the CDU. Hospital course complicated by aspiration pneumonia and AHRF - transferred to step down on 09/26/20. Slowly improving 1. Acute Hypoxic Respiratory Failure: Worsened resp status in the evening of 09/25/20 likely due to aspiration- was on 15L. Increased oxygen requirements up to 15L NRB. Pulm consulted. COVID negative on 09/26/20. Weaned down to room air 2. Sepsis: acquired during hospitalization. Likely due to aspiration pneumonia. Mildly elevated procal at 0.198. Lactate of 1.1 on 09/26/20. Blood and sputum cultures NGTD. 3. Aspiration Pneumonia: With thickened secretions noted on 09/25/20. Pulm consulted for AHRF. ABX initiated in the evening 09/25/20. Passed swallow eval, 4 more days of Augmentin on discharge 4. Alcohol withdrawal with seizure-like activity: pt was on Phenobarb taper, switched to Librium taper on 09/22/20 with intermittent med refusals. Was done CIWA protocols and supportive care. Transitioned Thiamine to IV TID 09/23/20 and to once daily on 09/28/20 for possible wernickes. Follow-up with neurology 5. Acute Encephalopathy: Likely delirium from alcohol withdrawal with possible Wernicke's. CT head 09/19/20 with no acute intracranial abnormality. EEG performed 09/23/20 - without acute pathology. Treatment for Wernicke's with Thiamine, initially improved and then waxed/waned mentation as of 09/24/20. MRI brain 09/25/20 limited by motion but not overt pathology noted. Ammonia 17 on 09/25/20. Neuro consulted but difficult interaction with pt due to delirium. D/W tele neuro, no additional recs on 09/26/20. Slowly improved. Continue thiamine p.o. and follow-up with neurology 6. Severe hypokalemia: replace per electrolyte protocols. Continued new K-Dur 40meq daily. 7. Hypomagnesemia: Mag ox on discharge 8. Coronary artery disease: s/p PCI to pRCA and dRCA (04/2019). Initially continued home plavix, statin, BB, and ACEi but with inability to take PO on 09/27/20, meds were changed to IV as able. StartedASA as tolerable on 09/28/20. Pt has not followed up with a environmental assistant since 2018, referral as an outpatient upon discharge. 9. Hypertension: Home meds 10. Hyperlipidemia: Continued home Lipitor as able 11. Alcohol abuse and dependence: workforce services representative consulted for information regarding rehabilitation after discharge/community resources. 12. Thrombocytopenia: Secondary to alcohol abuse, continue to monitor. 13. Transaminitis: Secondary to alcohol abuse, US liver: diffuse fatty infiltration of the liver. 14. Code Status: Full 15. DVT Prophylaxis: Lovenox Current living situation: Home Expected Disposition: Home with home health or rehab Estimated discharge date: 09/30/2020 ICD 10 Seizure-like activity (HCC) ICD-10-CM: R56.9 ICD-9-CM: 780.39 [employer] (Labs, Wounds, Infusions etc.): Additional Comments: Referral source: jarad/Hilda DISCHARGE DATE: 09/30 OK for SOC 24-48 ? Yes Headlight Assembler and/or Liaison Name Sharmin * D/C Planning - Andre Hubbard RN - 09/30/2020 9:50 AM EDT Chart reviewed met with patient at bedside no further needs from CM at this time. Spoke with patient again regarding HH services on discharge. 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 D/C plan remains for patient to return home with his mother and self care. 1230-Dr Neal speaks with patient and makes CM aware that he got patient to agree to HH just a few visits to check on him and make sure he is going ok. Left a message with Sharmin with [facility] same. 1407-Patient is being discharged no high dollar medication noted in discharge orders at this time. Patients primary RN Lorie states that the patient is now saying he needs a ride home. RN will question patient as to any other friends or family that can come and pick him up. * Nursing - Lorie Somers RN - 09/30/2020 8:13 AM EDT Spoke with Dr Rodríguez regarding the patients transfer orders. states that the patient willbe going home today so there is no need to transfer him. * Nursing - James Chavez RN - 09/29/2020 10:00 PM EDT Pt ambulates in [place] at this time with 1 person assist and front wheel walker. Pt did have one episode of unsteadiness but gained his balance back quickly. Otherwise he tolerated ambulation well. * D/C Planning - Andre Hubbard RN - 09/29/2020 3:18 PM EDT During discharge rounds with Dr Rodríguez it was discussed that patient may benefit from HH services on discharge. CM spoke with patient who declines HH needs. * Plan of Care - Macey Espinoza RD,LD - 09/29/2020 11:17 AM EDT Medical Nutrition Follow Up: Interventions: Food and/or Nutrient Delivery: Meals Provided Snacks: In between meal snack Nutrition Education: Increasing calories/protein; Learner: Patient, Readiness to Learn: Acceptance, Method: Explanation Handout, and Response: Verbalizes Understanding Malnutrition Assessment/Nutrition Diagnosis: Meets ASPEN criteria for malnutrition - Severe acute disease or injury related malnutrition relatedto Inadequate oral intake in the setting of alcohol withdrawal, swallowing difficulty, as evidencedby: Energy Intake <= 50% of estimated energy requirement for >= 5 days and Muscle depletion Patellar Region Moderate and Posterior Calf Region Moderate RD eval 09/26/20 Goal/Monitoring/Evaluation: Goals: Adequate Intakes: New Goal Initiation of Nutrition Goal met Consumption of snacks: New Goal Monitoring/Evaluation: Food and Beverage Intake Body composition/growth/weight history Assessment: Routine follow up Subjective: Yonathan is eating a large breakfast on visit. He is alert and states he usually weighs around 130# lately and needs to gain back to 150#. States he is starving because he couldn't eat for several days. Encouraged snacks, made aware of those available. Requests sandwich at . Anthropometric Measurements: Patient Vitals for the past 750 hrs: Weight 09/29/20 0312 64.3 kg (141 lb 11.2 oz) 09/28/20 0500 65.9 kg (145 lb 3.2 oz) 09/27/20 0500 63.6 kg (140 lb 4.8 oz) 09/20/20 0007 63.9 kg (140 lb 14.4 oz) 09/19/20 2206 65.8 kg (145 lb) Estimated Nutritional Needs: Estimated Energy Needs Total Energy Estimated Needs: 4128-8763 kcal Method for Estimating Needs: 25-30 kcal/kg (63.9 kg) Estimated Protein Needs Total Protein Estimated Needs: 64-77 gm Method for Estimating Needs: 1-1.2 gm/kg (63.9 kg) Diet Orders: Diet Orders (From admission, onward) Start Ordered 09/28/20 1117 Regular Diet DIET EFFECTIVE NOW 09/28/20 1119 DIETARY SUPPLEMENT/TUBE FEED ORDERS (From admission, onward) None Intakes Recorded: Patient Vitals for the past 168 hrs: Percent Meals Eaten (%) 09/29/20 1015 100 % 09/28/20 1242 100 % 09/28/20 0903 0 % 09/26/20 1125 0 % 09/26/20 0807 0 % 09/25/20 1837 0 % 09/25/20 1330 0 % 09/25/20 0855 0 % 09/25/20 0000 100 % 09/24/20 1300 50 % 09/24/20 0900 90 % 09/24/20 0021 75 % 09/23/20 1705 0 % 09/23/20 1105 50 % 09/22/20 1300 75 % Documented Medical Information, Test and Procedures: 09/28/20 Dr. Hunter Lund- Alcohol withdrawal with seizure-like activity, Acute Hypoxic Respiratory Failure Principal Problem: Seizure-like activity (HCC) Active Problems: Tobacco abuse Gastroesophageal reflux disease without esophagitis Loss of consciousness (HCC) Hypokalemia Alcohol withdrawal (HCC) Admission Diagnosis: Hypokalemia Loss of consciousness (HCC) Seizure-like activity (HCC) Pertinent Laboratory Values:. Lab Results Component Value Date/Time GLU 142 (H) 09/29/2020 0742 POCGLU 153 (H) 09/19/2020 2208 BUN 4 (L) 09/29/2020 0742 CREATININE 0.70 09/29/2020 0742 K 2.9 (LL) 09/29/2020 0742 PHOS 4.7 (H) 09/29/2020 0742 MG 1.9 09/22/2020 0605 NA 136 09/29/2020 0742 HGB 11.4 (L) 09/29/2020 0618 HGBA1C 4.6 09/21/2020 0441 GFR >60 09/29/2020 0742 Pertinent Medications: Current Facility-Administered Medications Medication acetaminophen (TYLENOL) tablet 650 mg albuterol 2.5mg-ipratropium 0.5mg/3ml (DUONEB) nebulizer soln 3 mL Albuterol nebulizer soln 2.5 mg Albuterol nebulizer soln 2.5 mg aluminum-magnesium hydroxide 200-200 MG/5ML suspension 30 mL amitriptyline (ELAVIL) tablet 75 mg aspirin EC EC tablet 81 mg atorvastatin (LIPITOR) tablet 80 mg bisacodyl (DULCOLAX) suppository 10 mg calcium carbonate (TUMS) chewable tablet 1,000 mg clonNIDine (CATAPRES) tablet 0.1 mg clopidogrel (PLAVIX) tablet 75 mg dicyclomine (BENTYL) tablet 20 mg enoxaparin (LOVENOX) injection 40 mg folic acid (FOLVITE) tablet 1 mg For electrolyte abnormalities subsequent to initial labs (refer to the [facility] Electrolyte Replacement Orders) gabapentin (NEURONTIN) capsule 300 mg haloperidol lactate (HALDOL) injection 5 mg lisinopril (PRINIVIL,ZESTRIL) tablet 20 mg And hydroCHLOROthiazide (HYDRODIURIL) tablet 12.5 mg hydrOXYzine (ATARAX) tablet 50 mg ibuprofen (ADVIL,MOTRIN) tablet 600 mg Lidocaine Viscous HCl (XYLOCAINE) 2 % mouth solution 5 mL loperamide (IMODIUM) capsule 2 mg LORazepam (ATIVAN) tablet 2-4 mg Or LORazepam injection 2-4 mg Or LORazepam injection 2-4 mg LORazepam injection 2 mg methocarbamol (ROBAXIN) tablet 750 mg Metoprolol Tartrate (LOPRESSOR) tablet 25 mg nicotine (NICODERM CQ) 21 MG/24HR 1 patch nicotine polacrilex (COMMIT) lozenge 4 mg Ondansetron (ZOFRAN-ODT) disintegrating tablet 4 mg Or ondansetron hcl (ZOFRAN) injection 4 mg pantoprazole (PROTONIX) EC tablet 40 mg piperacillin-tazobactam (ZOSYN) 3.375 g in NS 100mL polyethylene glycol 3350 (GLYCOLAX, MIRALAX) packet 17 g potassium chloride 40 mEq, lidocaine 1% (XYLOCAINE) 8 mL in dextrose 5% 250 mL IVPB Senna (SENOKOT) tablet 17.2 mg Thiamine Mononitrate (VITAMIN B-1) tablet 100 mg traZODone (DESYREL) tablet 50 mg Nursing Physical Findings from Flowsheets: Gastrointestinal (WDL): Unchanged Gastrointestinal Abdomen Inspection: Soft Bowel Sounds (All Quadrants): Active Tenderness: Nontender Nausea/Vomiting: Denies any nausea or vomiting Is patient having diarrhea: Denies any diarrhea Passing Flatus: Yes Bowel Movement: Not noted Integumentary Skin Color (WDL): Unchanged Skin Color: Normal for Ethnicity Skin Integrity (WDL): Unchanged Skin Checked Under Oxygen Device: Intact Skin Condition (WDL): Unchanged Skin Condition: Bruising Location: Scattered Orientation: Right, Left Multiple Sites: 3 Peripheral Vascular Peripheral Vascular (WDL): Unchanged Anti-Embolism Devices: Bilateral lower extremity SCDs Bilateral LE SCDs: Off Reason for not applying bilateral SCDs: Patient refused Stocking (Knee): Off Reason for not applying knee high anti-embolism stockings: Patient refused Edema: None noted LUE Edema: None RLE Edema: None * Rehab Therapies - Mojica [id number], MALI Shelby-RECORDIST - 09/29/2020 9:42 AM EDT VIDEO FLUOROSCOPIC SWALLOW STUDY Patient Name: oYnathan Fernandez Results: No penetration or aspiration noted with trials this date. Oral Stage: WFL Pharyngeal Stage: WFL Esophageal Stage: Esophageal retention Compensatory Techniques Attempted: Not required this date. Recommendations: NPO:No Diet Consistency:Regular Liquid Diet Level:Thin Medication Recommendation:Regular Strategies:90 degree hip and 45 degree Neck Flexion, Positioning for all oral intake, Patient upright 30 to 60 minutes after meals and Alternate small bites with small sips Oral care:After Meals Continuum of care recommendations:No further therapy indicated for dysphagia Education/Notification:HIM contacted to fax a copy of VFSS report to physician office and Discussedresults and recommendations with the patient and/or the patient's family following completion of exam Additional Recommendations: No additional recommendations at this time. Past Medical History: Diagnosis Date Alcohol abuse Hyperlipidemia Hypertension Myocardial infarct (HCC) Past Surgical History: Procedure Laterality Date arm surgery CORONARY ANGIOPLASTY WITH STENT PLACEMENT CORONARY ANGIOPLASTY WITH STENT PLACEMENT HERNIA REPAIR TONSILLECTOMY VASECTOMY Reason for Referral: Patient with history of CAD, alcohol abuse, and initially admitted for seizure-like activity. During admission, patient had decline in status including respiratory failure and sepsis suspected to be from alcohol withdrawal. With decline, patient was not able to manage his secretions, required significant supplemental 02, and weak vocal quality. ST was consulted to be completed a BSE. Observation at time of assessment and therapy following same deeming patient not appropriate for PO intake. Patient later having improvement with respiratory status and was placed on regular diet per bedside observations with plan to complete VFSS. Swallow study completed this date to further evaluate pharyngeal phase of swallow and determine least restrictive diet level. Current Diet: Per clinical bedside and swallowing therapy observations: Current Solid Diet Consistency: Regular diet consistency Current Liquid Diet Consistency: Thin Liquids Consistencies Assessed: Varibar Thin Liquid, Varibar Bressler Liquid, Varibar Thin Honey Liquid, Varibar Pudding and Shortbread Cookie with Varibar Pudding Oral Stage: Lip Closure:No anterior loss of bolus Tongue control during Bolus Hold:Cohesive bolus between tongue to palatal seal Bolus Preparation/Mastication:Timely and efficient chewing and mashing Bolus Transport:Brisk tongue motion and anterior to posterior propulsion of bolus Oral Residue:Complete oral clearance Pharyngeal Stage: Pharyngeal swallow initiation:Swallow initiation when bolus head is at valleculae Soft Palate Elevation:No bolus between soft palate and posterior pharyngeal wall Laryngeal Elevation:Complete laryngeal elevation with complete airway obliteration Hyolaryngeal complex excursion:Complete anterior movement of hyoid Epiglottic inversion:Complete epiglottic inversion Laryngeal vestibular closure:Complete closure: no air or contrast in the laryngeal vestibule Pharyngoesophageal (Upper Esophageal Sphincter) Segment Opening:Complete opening with no obstruction to flow Tongue Base Retraction:Minimal column of contrast or air between tongue base and posterior pharyngeal wall Pharyngeal Residue:Trace residue within or on pharyngeal structures Esophageal Stage: Esophageal Clearance in the Upright Position:Esophageal retention Rosenbek Penetration-Aspiration Scale:Material does not enter airway Treatment Duration: (25 Minutes) Afsaneh Leon CCC-FLORENTIN 09/29/2020 9:42 AM 'The actual video for this VFSS is located in the radiology department for the duration of the patient's stay' * D/C Planning - Andre Hubbard RN - 09/29/2020 9:25 AM EDT FWW order has been placed awaiting physician signature. No other needs from CM identified at this time. D/C plan remains for patient to return home with his mother and a FWW Walker order signed and sent to [facility]. * Pharmacy Note - Leny Vasquez PharmD - 09/29/2020 6:59 AM EDT Pharmacy Dose Adjustment Dose adjustment per policy Serum creatinine: 0.64 mg/dL (L) 09/28/20 0634 Estimated creatinine clearance: 119.5 mL/min (A) Zosyn adjusted to q6 hrs for CrCl >60 mL/min. Thank you, Leny Vasquez PharmD * Rehab Therapies - Billy [id number] MS CCC-RECORDIST - 09/28/2020 1:07 PM EDT Name: Yonathan Fernandez CAT: [id number] Dysphagia tx completed. Impressions: Patient significantly improved compared to yesterday. When RECORDIST arrived, patient was pleasant and greeting RECORDIST with a clear, strong voice. Patient still on HFNC, but only on 3L compared to 10L from yesterday. Patient's volitional swallow was prompt. When asked, patient reported still having a cough but has been using yanker to remove secretions. PO trials provided and patient demonstrated adequate/grossly WNL oropharyngeal phase of the swallow with all consistencies. However, patient had x1 questionable delayed cough with peaches as well as patient was noted to be very impulsive and take very large bites. RECORDIST reviewed recommendations and VFSS, with patient agreeing to the same. Recommendations: regular, thin liquids, medication as tolerated, please make NPO if patient has decline in respiratory status, and will proceed with VFSS tomorrow to dynamically assess the pharyngealphase of the swallow. Communicated same to RN. Thank you 09/28/20 1045 Physician Order Physician Order Swallowing Swallowing Current Status - Oral Phase Within Functional Limits Current Status - Pharyngeal Phase Within Functional Limits;Minimal/Mild Impairment FOIS Items Total oral diet with NO restrictions Swallowing - Diet Consistency Recommendations Current Diet Consistency Regular Liquid Diet Level Thin Medication Recommendation Regular Instrumental assessment recommended Yes;VFSS Diet Recommendations assist with set-up Strategies 90 degree Hip and 45 degree Neck Flexion for all oral intake;Patient upright 30 to 60 minutes after meals;Monitor covert S/Sx of aspiration Oral Care After Meals. RECORDIST Procedure Charges Swallowing/Dysphagia Treatment < 1 hour Time Calculation Start Time 1045 Stop Time 1105 Time Calculation 20 Speech Education Education Patient Therapy Schedule Yes Compensatory Strategies Yes Diet Recommendations Yes Discharge Recommendations Yes Rationale for Therapy/Recommendations Yes * D/C Planning - Ciara Frey RN - 09/28/2020 11:43 AM EDT Patient plans to return home with his mother at discharge. Patient states that his mother will pickhim up at discharge. Patient would like FWW ordered at discharge from [facility] per therapy recommendations. * Plan of Care - Divine Benson RN - 09/28/2020 3:22 AM EDT Problem: Safety Goal: Free from accidental physical injury Outcome: Progressing Problem: Daily Care Goal: Daily care needs are met Outcome: Progressing Problem: Knowledge Deficit Goal: Patient/S.O. demonstrates understanding of disease process, treatment plan, medications, and discharge instructions. Outcome: Progressing Problem: Discharge Planning Goal: Patient's continuum of care needs are met Outcome: Progressing Problem: Activity Intolerance/Impaired Mobility Goal: Mobility/activity is maintained at optimum level for patient Outcome: Progressing Problem: Anxiety Goal: Anxiety is at manageable level Outcome: Progressing Problem: Communication Impairment Goal: Ability to express needs and understand communication Outcome: Progressing Problem: Infection Goal: Signs and symptoms of infections are decreased or avoided Outcome: Progressing Problem: Knowledge Deficit Goal: Patient/S.O. demonstrates understanding of disease process, treatment plan, medications, and discharge instructions. Outcome: Progressing Goal: Knowledge - personal safety Description: Patient /SO will verbalize understanding of fall prevention. Outcome: Progressing Problem: Pain Goal: Patient's pain/discomfort is manageable/controlled Outcome: Progressing Problem: Neurological Deficit Goal: Neurological status is stable or improving Outcome: Progressing Problem: Risk of Metabolic Imbalance Goal: Metabolic imbalance resolved by discharge Description: References: 1) Alfonzo Celis (2013. Medical-Surgical Nursing: Patient-Centered Collaborative Care. 7th ed, [place]: Jacquelyn 2) Cerebrovascular Accident (CVA), Last Revised: Jun 23, 2011, Contributed by Francie Broussard RN, MS Outcome: Progressing Problem: 10-Potential for Substance Withdrawal Goal: A-Verbalizes signs/symptoms of withdrawal Outcome: Progressing Goal: B-Reports signs/symptoms of withdrawal Outcome: Progressing Goal: C-Free of withdrawal symptoms Outcome: Progressing * Rehab Therapies - Billy [id number], MS Francine [facility]-RECORDIST - 09/27/2020 12:07 PM EDT Name: Yonathan Fernandez CAT: [id number] Dysphagia tx completed. Impressions: Per discussion with RN, patient was suctioned yesterday evening. Patient continues to require 10L of HFNC this date. Initially, patient did not observe to have wet respirations as reported by previous RECORDIST; however, following a couple of minutes of patient talking with RECORDIST, patient did note to have a wet vocal quality suspected to be s/t poor management of secretions. Patient providedwith limited PO trials. Patient continues to have severe pharyngeal dysphagia characterized by reduced hyolaryngeal excursion, multiple swallows 3- 4x with all consistencies assessed, and intermittentimmediate coughing with ice chips. Patient is also suspected to silently aspirate with liquids as he would have increased wet vocal quality when provided with thin liquids and moderately thick liquids this date. However, with ice chips, patient was noted to intermittently produce a strong cough (independently and when cued) and was able to produce a clear, fair voice following the same. Secondaryto patient demonstrating ability to clear secretions and improve his vocal quality, RECORDIST explained reasoning for initiating ice chip protocol only. Patient was educated but RECORDIST suspects that patient does not comprehend same from the comments that he made following education. Recommendations: NPO, non-oral medications, ice chip protocol, and will continue dysphagia tx per POC. VFSS is recommended when patient is appropriate for the same. Communicated same to RN. Ice chip protocol (NPO pts): 5 per hr okay 1. Oral care to be completed at least 3x/day 2. Sit upright (90 degree hip flexion) in bed or chair 3. Following oral care, patient may have 1-2 ice chips at a time by tsp Thank you 09/27/20 1000 Physician Order Physician Order Swallowing Swallowing Current Status - Oral Phase (LUCRECIA) Current Status - Pharyngeal Phase Severe Impairment FOIS Items Nothing by Mouth Swallowing - Diet Consistency Recommendations Current Diet Consistency NPO Liquid Diet Level Ice Chips Protocol Medication Recommendation Non-Oral Instrumental assessment recommended Yes;VFSS;When patient becomes appropriate Oral Care Three Times Per Day. Session Information Chart Review Completed Pain Assessment No Pain Reported Discharge Recommendations 24 hour care (pending progress) Comments (SOAP note) Dysphagia tx completed RECORDIST Procedure Charges Swallowing/Dysphagia Treatment < 1 hour Time Calculation Start Time 1000 Stop Time 1020 Time Calculation 20 Speech Education Education No family available * Nursing - Jefry Miner RN - 09/27/2020 10:[address] Lund of the speech therapists recommendations. No questions at this time. * Nursing - Anne Evans RN - 09/26/2020 6:48 PM EDT Patient resting in bed at this time. 2 side rails up. Bedside table and call light within reach. VSS. No questions or complaints at this time. Patient stable throughout shift. Continue current medical treatment. * Nursing - Anne Evans RN - 09/26/2020 3:50 PM EDT Patient arrives to the unit at this time from [place]. 2 side rails up. Call light within reach. Vital signs stable at this time. No acute distress noted. Will continue to monitor * Nursing - Courtney Carrizales RN - 09/26/2020 3:45 PM EDT Patient transported to ; chart, meds, and [facility] monitor accompanied patient. Ba VALENCIA at bedside. * Rehab Therapies - Sherri Iraheta CCC-RECORDIST - 09/26/2020 2:36 PM EDT Name: Yonathan Fernandez CAT: [id number] Dysphagia tx attempted. Per chart, pt's respiratory status declined this AM and pt is now on 15L NRB. RECORDIST did meet with pt to re-assess swallow but pt's vocal quality remains gurgly and muffled. RN also notes they are suctioning thick secretions from mouth but pt has refused deep suction. RECORDIST did not attempt re-assessmentas pt is not appropriate. RECORDIST continues to recommend strict NPO with non-oral meds and frequent oral care. Will re-attempt on 09/27 if pt is able. Thank you. * D/C Planning - Anahy Avitia Social Worker - 09/26/2020 1:34 PM EDT Per nsg pos transfer to step down unit. * Plan of Care - Macey Espinoza RD,LD - 09/26/2020 11:49 AM EDT Medical Nutrition Therapy Assessment: Recommendation: Enteral nutrition if unable to have PO diet within 48 hrs Interventions: Food and/or Nutrient Delivery: NPO Nutrition Education: Not appropriate for education at this time Coordination of Nutrition Care: Nurse reports diet changed to NPO due to RECORDIST eval Malnutrition Assessment/Nutrition Diagnosis: Meets ASPEN criteria for malnutrition - Severe acute disease or injury related malnutrition relatedto Inadequate oral intake in the setting of alcohol withdrawal, swallowing difficulty, as evidencedby: Energy Intake <= 50% of estimated energy requirement for >= 5 days and Muscle depletion Patellar Region Moderate and Posterior Calf Region Moderate Goals/Monitoring/Evaluation: Goals: Initiation of Nutrition Monitoring/Evaluation: Means of nutrition Body composition/growth/weight history Assessment: Assessment Due To: LOS Subjective: Yonathan is hard to understand this am due to breathing difficulty. Moist voice quality. Mild muscle loss to knees and calfs noted. Meal intake 50% or less the past week. No new weight available. Weight on admission was within usual per [facility] weight history. NPO per RECORDIST. Will follow and provide nutrition intervention per appropriate means. Enteral nutrition appropriate if unable to returnto PO diet within 48 hrs. [facility] Weight History: 05/01/20- 130# 08/13/19- 140# Anthropometric Measurements: Height: 5' 4 (162.6 cm) Weight: 63.9 kg (140 lb 14.4 oz) BMI (Calculated): 24.17 Estimated Nutritional Needs: Estimated Energy Needs Total Energy Estimated Needs: 0560-6549 kcal Method for Estimating Needs: 25-30 kcal/kg (63.9 kg) Estimated Protein Needs Total Protein Estimated Needs: 64-77 gm Method for Estimating Needs: 1-1.2 gm/kg (63.9 kg) Diet Orders: Diet Orders (From admission, onward) Start Ordered 09/26/20 0745 Diet NPO effective now DIET EFFECTIVE NOW 09/26/20 0744 DIETARY SUPPLEMENT/TUBE FEED ORDERS (From admission, onward) None Intakes Recorded: Patient Vitals for the past 168 hrs: Percent Meals Eaten (%) 09/25/20 1837 0 % 09/25/20 1330 0 % 09/25/20 0855 0 % 09/25/20 0000 100 % 09/24/20 1300 50 % 09/24/20 0900 90 % 09/24/20 0021 75 % 09/23/20 1705 0 % 09/23/20 1105 50 % 09/22/20 1300 75 % 09/22/20 0900 0 % 09/21/20 1836 100 % 09/20/20 1732 40 % Documented Medical Information, Test and Procedures: Principal Problem: Seizure-like activity (HCC) Active Problems: Tobacco abuse Gastroesophageal reflux disease without esophagitis Loss of consciousness (HCC) Hypokalemia Alcohol withdrawal (HCC) Admission Diagnosis: Hypokalemia Loss of consciousness (HCC) Seizure-like activity (HCC) Pertinent Laboratory Values:. Lab Results Component Value Date/Time GLU 106 (H) 09/26/2020 0557 POCGLU 153 (H) 09/19/20208 BUN 16 09/26/2020 0557 CREATININE 1.03 09/26/2020 0557 K 3.8 09/26/2020 0557 PHOS 2.8 09/21/2020 044 MG 1.9 09/22/2020 0605 NA 134 (L) 09/26/2020 0557 HGB 12.1 (L) 09/26/2020 0557 HGBA1C 4.6 09/21/2020440 GFR >60 09/26/2020 0557 Pertinent Medications: Current Facility-Administered Medications Medication acetaminophen (TYLENOL) tablet 650 mg albuterol 2.5mg-ipratropium 0.5mg/3ml (DUONEB) nebulizer soln 3 mL [START ON 09/28/2020] albuterol 2.5mg-ipratropium 0.5mg/3ml (DUONEB) nebulizer soln 3 mL Albuterol nebulizer soln 2.5 mg Albuterol nebulizer soln 2.5 mg aluminum-magnesium hydroxide 200-200 MG/5ML suspension 30 mL amitriptyline (ELAVIL) tablet 75 mg atorvastatin (LIPITOR) tablet 80 mg bisacodyl (DULCOLAX) suppository 10 mg calcium carbonate (TUMS) chewable tablet 1,000 mg Calcium carbonate-vitamin D 600-400 MG-UNIT 1 tablet clonNIDine (CATAPRES) tablet 0.1 mg clopidogrel (PLAVIX) tablet 75 mg dicyclomine (BENTYL) tablet 20 mg enoxaparin (LOVENOX) injection 40 mg folic acid (FOLVITE) tablet 1,000 mcg For electrolyte abnormalities subsequent to initial labs (refer to the [facility] Electrolyte Replacement Orders) gabapentin (NEURONTIN) capsule 300 mg haloperidol lactate (HALDOL) injection 5 mg lisinopril (PRINIVIL,ZESTRIL) tablet 20 mg And hydroCHLOROthiazide (HYDRODIURIL) tablet 12.5 mg hydrOXYzine (ATARAX) tablet 50 mg ibuprofen (ADVIL,MOTRIN) tablet 600 mg lactated ringers infusion Lidocaine Viscous HCl (XYLOCAINE) 2 % mouth solution 5 mL loperamide (IMODIUM) capsule 2 mg LORazepam (ATIVAN) tablet 2-4 mg Or LORazepam injection 2-4 mg Or LORazepam injection 2-4 mg LORazepam injection 2 mg methocarbamol (ROBAXIN) tablet 750 mg Metoprolol Tartrate (LOPRESSOR) tablet 25 mg nicotine (NICODERM CQ) 21 MG/24HR 1 patch nicotine polacrilex (COMMIT) lozenge 4 mg Ondansetron (ZOFRAN-ODT) disintegrating tablet 4 mg Or ondansetron hcl (ZOFRAN) injection 4 mg pantoprazole (PROTONIX) EC tablet 40 mg piperacillin-tazobactam (ZOSYN) 3.375 g in NS 100mL polyethylene glycol 3350 (GLYCOLAX, MIRALAX) packet 17 g potassium chloride SA (K-DUR,KLOR-CON M20) CR tablet 20 mEq potassium chloride SA (K-DUR,KLOR-CON M20) CR tablet 40 mEq rifAXIMin (XIFAXAN) tablet 550 mg Senna (SENOKOT) tablet 17.2 mg thera m plus tablet 1 tablet thiamine (VITAMIN B1) 250 mg in sodium chloride 0.9 % 50 mL IVPB traZODone (DESYREL) tablet 50 mg traZODone (DESYREL) tablet 50 mg vitamin B-12 (CYANOCOBALAMIN) tablet 1,000 mcg Nursing Physical Findings from Flowsheets: Gastrointestinal (WDL): Within Defined Limits Gastrointestinal Abdomen Inspection: Soft, Nondistended Bowel Sounds (All Quadrants): Active Nausea/Vomiting: Denies any nausea or vomiting Is patient having diarrhea: None Noted Passing Flatus: No Bowel Movement: 09/20/20 Integumentary Skin Color (WDL): Within Defined Limits Skin Color: [place] Skin Integrity (WDL): Within Defined Limits Skin Checked Under Oxygen Device: Intact Skin Condition (WDL): Exceptions to WDL Skin Condition: Bruising Location: Scattered Orientation: Right, Left Multiple Sites: 3 Peripheral Vascular Peripheral Vascular (WDL): Exceptions to WDL Anti-Embolism Devices: Bilateral lower extremity SCDs Bilateral LE SCDs: Off Reason for not applying bilateral SCDs: Patient refused Edema: None noted LUE Edema: None RLE Edema: None * D/C Planning - Anahy Avitia Bioinformatics Assistant - 09/26/2020 11:35 AM EDT Spoke with Dr Lund this am and cm needs unknown at this time he rec holding off to see what pt does medically, Per nsg pt now on 15 L O2 with rebreather. * Nursing - Leeanne Sifuentes RN - 09/26/2020 11:[address] Lund notified of ABG results, states will consult pulmonary. Also notified of no urine output this shift and bladder scan completed for >560, order received and placed for straight cath once. * Rapid Response - Keshawn Gunderson RN - 09/26/2020 10:40 AM EDT Asked to see patient per New Vehicle Sales Consultant. Pt presents with course rhonchi audible from hallway. Pt on 100%NRB, spo2-99-100%, Resp 24-28 and shallow, hr- 108. Pt lethargic, arouses to name, garbled speech, denies discomfort, follows commands. Pt nurse at bedside, this nurse updated. Pt suction canister on wall presents with thick, pink, vomit looking secretions approximately 200-ml current in container. Bedside nurse states they have been orally suctioning that material found in suction canister all morning from the patient. Nurse revealed patient physician aware. Awaiting ABG results. This nurse will continue to monitor. * Interdisciplinary - Sam Rincon CRT - 09/26/2020 8:06 AM EDT Patient continues with coarse rhonchi, orally suctioned for copious amounts of canela/pink secretions.Patient combative and confused. Will continue to monitor * Nursing - Kaylee Euceda RN - 09/26/2020 5:10 AM EDT Patient resting comfortable,on a non-rebreather 13L with oxygen sat. Between 95- 97%. Patient encourage to do deep breathing, and coughing to assisted with getting rid of the mucus. Lungs sounds hoarse, rhonchi Noted bilateral lobes. Patient maintained on NPO and bed maintained above a 30 degree angle throughout this shift. Patient tolerated well the IV medications. * Nursing Kaylee Falcon RN - 09/26/2020 2:47 AM EDT Doctor Naeem came in to see the patient and no new orders at this time, and the patient should be kept on the non-re breather and run the IV ATB and tylenol as ordered. * Renata - Larissa Oneil RN - 09/26/2020 1:00 AM EDT Called to see pt. Pt.currently lying in bed with eyes closed. Audible rhonchi noted. Current pulse ox 85% on 3L NC. Pt. Encouraged to cough and deep breathe. Weak cough Noted, opening eyes briefly with reposition. Respirations shallow and labored at rate of 30. Skin warm, slightly clammy. Temp of 101.6 noted. Placed on 15L Non-rebreather with increase of 02 saturation to 95%. Primary RN notifying physician for orders. * Nursing - Kaylee Euceda RN - 09/26/2020 12:45 AM EDT ON an hourly assessment, the patient breathing harder , shallow and respiration rate at 30, audiblerhonchi,and oxygen sat. 84% on room air and was quickly placed on a 3L-5l NC and there was no improvement on oxygen sat. Patient finally placed on a non-rebreathe with 15 Which bring the oxygen sat up to 95%. Dr. whitaker of [facility] notified about the patient condition and a start now dueneb breathing treatment ordered and also to Notify the in-house doctor to come and assess the patient. Dr jacobs notified, who put in orders and will come and see the patient. Patient remain on the non-rebreathe nowand new orders implemented as ordered. * Nursing - Bertha Johnson RN - 09/25/2020 10:11 PM EDT Patient with no current 1:1 sitter order. terminal supervisor suggest [facility] to monitor patient at this time. Primary RN notified of the same. * Renata - Miladys Rizzo RN - 09/25/2020 6:24 PM EDT PM assessment complete. No changes from previous assessment . Patient to MRI for testing Neurocall consult will call between 8-11 am tomorrow. Patient voices is still water and gurgley and he is still coughing thick white secretions and patients fights to have it suctioned way. We had tried multiple times this shift and the [address] [place] [address] R/T tried to do a deep secretion in which the patient became agitated and was cussing. * D/C Planning - Anahy Avitia Social Worker - 09/25/2020 4:21 PM EDT Per nsg pt status has changed and he is going to have more testing done. Will follow for dcp needs. * Renata - Miladys Rizzo RN - 09/25/2020 3:[address] Lund on CXR results and MRI will be done later this evening. * Miladys Haywood RN - 09/25/2020 2:54 PM EDT Called down to MRI they won't be up until later this evening to perform MRI. * Rehab Therapies - Amilcar [id number], MALI Polanco-RECORDIST - 09/25/2020 2:28 PM EDT Name: Yonathan Fernandez CAT: [id number] Initial dysphagia evaluation completed. Impressions: Pt with h/o CAD and alcohol abuse admitted with seizure-like activity. Pt initially passed BSS and was tolerating PO, but demonstrated worsening cough and vocal quality therefore ST was consulted. Upon RECORDIST arrival this date, pt was resting in bed but was alert. RECORDIST immediately noted wet respirations and vocal quality, with speech sounding muffled by secretions. Pt also had secretionscoming out of his left nasal cavity which were wiped away with washcloth. Pt is disoriented and withdrawing, but adamantly denied swallowing difficulties or h/o same. Volitional swallow was significantly reduced per palpation and pt was noted to cough after same, suspect s/t aspirating secretions. Only one ice chip was given s/t observations, and pt had immediate choking with trial. While coughing, pt had nasal regurgitation of secretions while also appearing to be unable to clear secretions from throat. No additional trials were given s/t pt's inability to manage his secretions. RECORDIST explained recommendations and rationale for same, but pt did not demonstrate understanding. Recommendations: RECORDIST to recommend NPO with non-oral medications and frequent oral care. Will initiate tx per POC while pt remains hospitalized and proceed with VFSS when pt is appropriate. RN aware of recommendations. Thank you! 09/25/20 9183 Physician Order Physician Order Swallowing Swallowing Current Status - Oral Phase (LUCRECIA) Current Status - Pharyngeal Phase Severe Impairment;Profound Impairment Deficits Presents - Pharyngeal Phase Swallow initiation delay;Reduced Laryngeal elevation to palpation;Multiple Swallows;S/Sx Laryngeal penetration/aspiration FOIS Items Nothing by Mouth Swallowing - Diet Consistency Recommendations Current Diet Consistency NPO Medication Recommendation Non-Oral Instrumental assessment recommended Yes;VFSS;When patient becomes appropriate Oral Care Three Times Per Day. Baseline Assessment Previous Solid Diet Consistency NPO for evaluation Solid Diet Prior to Admission Regular Liquid Diet Prior to Admission Thin Liquids Temperature Spikes Noted No Respiratory Status Room air History of Intubation No Behavior/Cognition Alert;Agitated;Distractible Dentition Adequate Able to Feed Self No;Cognitive deficits;Physical deficits Patient Positioning Upright in bed Baseline Vocal Quality Wet Volitional Cough Wet;Congested Volitional Swallow Delayed WBC Result 6.9 Chest X-Ray (None) Breath Sounds Diminished (Crackles) Nursing Reported Swallowing Deficits increased coughing Motor Speech Labial ROM WFL Labial Symmetry WFL Labial Strength Reduced Labial Sensation WFL Lingual ROM WFL Lingual Symmetry WFL Lingual Strength Reduced Lingual Sensation WFL Facial ROM WFL Facial Symmetry WFL Facial Strength Reduced Facial Sensation WFL Velum WFL Mandible WFL Consistencies Assessed Consistencies Assessed Ice chips Clinical Assessment Pt with h/o CAD and alcohol abuse admitted with seizure-like activity. Pt initially passed BSS and was tolerating PO, but demonstrated worsening cough and vocal quality therefore ST was consulted. Upon RECORDIST arrival this date, pt was resting in bed but was alert. RECORDIST immediately noted wet respirations and vocal quality, with speech sounding muffled by secretions. Pt also had secretions coming out of his left nasal cavity which were wiped away with washcloth. Pt is disoriented and withdrawing, but adamantly denied swallowing difficulties or h/o same. Volitional swallow was significantly reduced per palpation and pt was noted to cough after same, suspect s/t aspirating secretions. Only one ice chip was given s/t observations, and pt had immediate choking with trial. While coughing, pt had nasal regurgitation of secretions while also appearing to be unable to clear secretions from throat. No additional trials were given s/t pt's inability to manage his secretions. RECORDIST ex plained recommendations and rationale for same, but pt did not demonstrate understanding. Session Information Chart Review Completed Pain Assessment No Pain Reported Discharge Recommendations (Pending) Comments (SOAP note) IE - Dysphagia Plan of Care Skilled Services Required Yes Type of Treatment Dysphagia Therapy Dysphagia Therapy Oral Motor Exercise;Laryngeal/pharyngeal strengthening exercises;Thermal stimulation/DPNS;Therapeutic Trial Upgrades;Compensatory Strategy education Frequency 3x/week Duration 2 weeks Prognosis Fair RECORDIST Procedure Charges Swallowing/Dysphagia Evaluation 1 Procedure Time Calculation Start Time 1325 Stop Time 1340 Time Calculation 15 Goals Goals - Oral Phase WFL;Mild/Minimal Impairment Goals - Pharyngeal Phase Mild/Minimal Impairment Speech Education Education No family available Documentation type Documentation: Initial * Nursing - Miladys Rizzo RN - 09/25/2020 2:10 PM EDT Patient refused to be suctioned. But has agreed to CxR. * Nursing - Miladys Rizzo RN - 09/25/2020 1:54 PM EDT Speech therapist is recommending Strict NPO and RT to do a deep suctioning to remove secretions. Called Dr Lund to see about an stat CXR. Pulse ox 90%. Patient has secretions coming out of his nose.And gave an update on the MRI being done after the technicians do the Stats MRI's first then him. Neuro to call back 5-7 pm tonight to give time for MRI to be done. * Nursing - Denisse Galvan RN - 09/25/2020 10:40 AM EDT MRI checklist completed by the last MRI checklist as the mother verified the questions at that time. Has been very angry this am, gurgles with attempt to take pills, will not take his Neurontin. Moist cough present, will hold on a diet until speech sees and clears. Takes 4 to complete a bath and bed change on him. Remains with a 1:1 sitter at the bedside. * Nursing - Denisse Galvan RN - 09/25/2020 10:00 AM EDT TeleNeuro calls to set up a time for consult between 2 pm and 5 pm call back. Hope to have MRI completed prior to this time. Mother, Shanice, is available at [phone] * Nursing - Gina Chester RN - 09/25/2020 1:41 AM EDT [place] Yonathan talking in room. Stated he was talking to his . I asked the [facility] questions in whichhe had denied all and was able to do serials. Stated he is not hallucinating and he always talks tohis . Stated she from an over dose years ago and it was the hardest thing to tell his kidsand he has not been doing well with her .. * Nursing - Gina Chester RN - 09/25/2020 12:30 AM EDT Pt trying to get out of bed and beginning to have some slight hallucinations. Stating he needs to get up and go upstairs to bed. Asked if he knew where he was and the year. He answered correctly but then stated he is just trying to go upstairs to bed. Head of bed lowered and pt pulled up and repositioned in bed. He quickly doses off to sleep with no further issues at this time. * Nursing - Gina Chester RN - 09/24/2020 9:30 PM EDT Sitting in bed, eating sack lunch, pleasant and cooperative.to Having a normal conversation with sitter and me. Took HS medications with no issues. Will continue to monitor. * Nursing - Leny Tsang RN - 09/24/2020 3:59 PM EDT Mother called and gave code number and room number for pt to nurse. Mother states that she would bethe person to pick him up if he is discharge but she could not come before 11 am. Mother asks if medications can be delivered via meds to beds. Pharmacy changed to meds to beds per family request. Ptagrees to the same. Will continue to monitor. * D/C Planning - Anahy Avitia Social Worker - 09/24/2020 1:10 PM EDT Met with pt at bedside to discuss alcohol use resources provided to pt. Pt verbalized that he is not going to inpt tx he has been there many times. Encouraged pt to consider OP tx, pt expressed that he would consider OP tx, unable to get pt to identify agencies he would be willing to consider, pt re ports he has went many places in the past. * Nursing - Gina Chester ERIK - 09/24/2020 3:06 AM EDT Pt has slept most of the night without any issues. Woke up around 1999 last night to eat dinner. Polite with me and took all his medications. Unsure of how he will do for day shift. * Nursing - Tulio Vidales RN - 09/23/2020 6:31 PM EDT Updated mother * Nursing - Tulio Vidales RN - 09/23/2020 2:00 PM EDT Patient thrashing around in bed most of the day. Patient saying I have a hang over leave me alone. reoriented the patient. 1:1 sitter at bedside. Will continue to monitor * Interdisciplinary - Nick Smith - 09/23/2020 11:09 AM EDT EEG complete. SOC to read. * Nursing - Varsha Colon RN - 09/23/2020 5:23 AM EDT Focus assessment completed at this time. Patient in bed, restless and agitated. Patient continues to have hallucinations. Patient medicated with PRN medication per JUL. 1:1 sitter at bedside * D/C Planning - Anahy Avitia, Bioinformatics Assistant - 09/22/2020 5:12 PM EDT CM Initial Discharge Planning Yonathan Fernandez 1975 Met with Yonathan Fernandez at Bedside. Yonathan Fernandez actively participated in the Discharge Planning Process Comments: Pt unable to verbalize family or emergency contact info, none on chart. Pt noted diff answering questions. Rx+ [address] Father will provide transportation. Drug and alcohol resources, pt did verbalize that he did not want tx, Unclear on how accurate info provided by pt is at this time. Role of CM disscussed. Will continue to follw for dc needs. Initial Discharge Planning Reason for Referral: Drug/Alcohol Abuse Obtained Information From: Chart, Patient Family contact name: Pt unable to provide Family Contact Number: Pt unable to provide Living Arrangements: Alone Capacity for Self-Care of ADLs: (unable to answer) Are family members/care delivery providers able to provide care necessary upon discharge without environmental modification: Indeterminate New functional deficits: Unable to assess Physical Therapy Screening: No referral needed Occupational therapy screening: No referral needed Speech therapy screening: No referral needed Home Environment: (unclear answer) Is patient diabetic?: No Agency Involvement: None Have you served in [facility] services: No Who will provide transportation?: (tbd) Barriers to Discharge: None Discharge Plans Complete: Yes Discharge Planning Needs Anticipated Discharge Plan: Home or Self Care(TBD) Med Outreach: No Med Precert needed: No Home Care Services: (TBD) Other agency involvement at discharge: (TBD) New DME needs: (TBD) Mode of Transportation: Car Barriers to Discharge: None Discharge plan developed in collaboration with: Patient, Attempted with Family/Caregiver Initial Discharge plan mutually acceptable to patient/family/sample case porter?: Yes % Social Pura Murray The patient has the right to participate in the development and implementation of his plan of care.The patient or his door to door sales representative (as allowed under State law) has the right to make informed decisions regarding his discharge plan. The patient's right includes being involved in care planning and treatment. * D/C Planning - Anahy Avitia Social Worker - 09/22/2020 5:07 PM EDT 09/22/20 3470 Alcohol use Disorders Identification Test (AUDIT) 1. How often do you have a drink containing alcohol? 2 (every other day) 2. How many drinks containing alcohol do you have on a typical day when you are drinking? 2 3. How often do you have six or more drinks on one occasion? (no answer) 4. How often during the last year have you found that you were not able to stop drinking once you had started? (no answer) 5. How often during the last year have you failed to do what was normally expected of you because of drinking? 2 6. How often during the last year have you needed a drink in the morning to get yourself going after a heavy drinking session? 0 7. How often during the last year have you had a feeling of guilt or remorse after drinking? (just sometimes) 8. How often during the last year have you been unable to remember what happened the night before because of your drinking? 0 9. Have you or someone else been injured because of your drinking? 0 10. Has a relative, friend or other health worker been concerned about your drinking or suggested you cut down? 0 AUDIT Score 6 Risk Level Zone I OTHER Summary Comments: Pt demonstrated difficulty answering questions. Pt reports he drinks every other day a 6 pack. Pt provided with drug and alcohol resources with education. * Nursing - Denisse Galvan RN - 09/22/2020 4:38 PM EDT CIWA scores staying at 10-11-12-14 range. Holding off on sedating him too much as we are waiting for the awake EEG to be done. Called Dr Jacobson to see if he could have additional medication or moved to another higher level of care. Remains with a 1:1 sitter at the bedside, will have to order a low bed to maintain safety as he is very restless and keeps trying to get out of bed. Mom is worried something else is going on in the head instead of just the alcohol withdrawal. * Nursing - Autumn Prakash RN - 09/22/2020 11:[address] Jacobson at bedside. * Nursing - Autumn Prakash RN - 09/22/2020 10:12 AM EDT Patient is extremity agitated at this time. States he is hearing others talk in the room and he wants to talk with his mother. Advised the patient that he is in the hospital and his mother is not here. Pt argues with staff that his mother is not here. patient medicated with Ativan 2 mg PO per orders. * Autumn Khan RN - 09/22/2020 9:31 AM EDT Patient returns from US. * Autumn Khan RN - 09/22/2020 9:15 AM EDT Patient taken to US at this time. * Autumn Khan RN - 09/22/2020 7:16 AM EDT Patient being aggressive with staff. medicated by hourly shift nurse at this time. See MAR. Bedside report taken at this time. Call light in reach * Talisha Akins RN - 09/22/2020 7:00 AM EDT Ultrasound calls up to verify that patient has been NPO since midnight, US aware that pt has had sips with meds, states that is okay and to keep pt NPO until ultrasound of liver is complete. NPO order placed * Talisha Akins RN - 09/22/2020 5:56 AM EDT Patient resting in bed at this time with eyes closed, CVS remains in place but pt gets very agitated when CVS speaks to him, CVS asked to call nursing staff if not an emergency. Mother was updated earlier in the shift. * Talisha Akins RN - 09/21/2020 9:59 PM EDT Patient agitated throughout shift, constantly trying to get out of bed, uses urinal, drinks and snacks offered, different staff members try to redirect patient but unsuccessful, public safety was up to talk to patient due to patient becoming verbally aggressive with staff and continuously trying toget out of bed despite redirection and explanation that pt is not safe to get up at this time. Patient was medicated with ativan per CIWA score and other PRNs per orders. All medications noted to be ineffective, [facility] contacted, Dr. Hinojosa gives orders for Haldol 5mg IV q6 PRN. * Nursing - Denisse Galvan RN - 09/21/2020 6:34 PM EDT Awake, eating supper, still no upper body strength. Keeps falling backwards. Able to talk with staff better tonight, still monitoring CIWA's. New IV to the R under forearm, other 22 ga to the L forearm infiltrated after all the K+ riders. Will attempt to place a warm blanket after he is finished eating to the IV site. * Nursing - Denisse Galvan RN - 09/21/2020 4:18 PM EDT Sleeping at this time. * Interdisciplinary - Nick Smith - 09/21/2020 2:19 PM EDT EEG postponed until tomorrow to let medication wear off, as per Denisse and Dr. Jacobson. * Nursing - Denisse Galvan RN - 09/21/2020 2:07 PM EDT 14:00: Had to medicate with Ativan again, also Phenobarbital was scheduled - trying to get out of bed, talking to unseen people, saying he was leaving, needed a cigarette. Cannot even sit up by himself. Will continue to monitor. 15:00: Additional 2 mg IV Ativan, was reaching out for the sweet little baby and other things just not making sense. CVS monitor calls saying he was almost out of bed. Stood at he bedside with the help of 2 to void 700 cc's, insisted he just walked into the BR a minute ago by himself. Remains very wobbly and unable to stand by himself. Mother calls in for updates, states can we sedate him, he's saying he is leaving then starts swearing at her after transferring the call to him as he wanted.Mother states he is to be in [facility] court on Tuesday for a ankle monitor and has paid for 40 days house arrest, just needs the monitor placed. Time of appearance is 10:00, must be there earlier. She also states he drinks 2 gallons of whiskey a week plus beer, was in re-hab while he was in high school for drinking. 15:30: Resting with some conversation outbursts to someone. Is saying not to get the peaches, they are $1.98 each, and the bananas are horribly high priced. More comfortable than 15 minutes ago. * D/C Planning - Wendy Mccarty - 09/21/2020 1:46 PM EDT SW unable to meet with patient. Patient is not able to stay awake and is not oriented. * Nursing - Denisse Galvan RN - 09/21/2020 10:30 AM EDT Sleeps through breakfast, will re-order when awake. 12:00: Dr Jacobson in to see, he was in the sitting position in bed as he could not hold himself upright to eat at the side of the bed. Told the Doctor he was in [place], the month was May, and didnot know the day of the week -because I haven't looked yet. Told her he has been drinking since 12 years old. Falls back to sleep as soon as she quits asking questions. Has told the staff many times t hat he has a court date on Tuesday that he CANNOT miss. Will continue to monitor. * Nursing - Denisse Galvan RN - 09/21/2020 8:22 AM EDT Sits up and falls back down, yells aloud, then back to sleep. Woke enough to take am medications, but refuses the Lovenox. Ordered breakfast, then lays down for 5 minutes before awake and trying to pull his phone apart as he isn't getting his calls. CIWA = 9, some hallucinations - looking about the room for his book bags which he claims has M&M's and a limited time only brownies. Keeps standing and wobbling about, had to medicated with Ativan 2 mg IV. Resting in bed, lightly snoring after getting the Ativan, ROCIO remains in the room to watch for safety reasons, bed alarm in place. * Renata - Gina Chester RN - 09/21/2020 6:[address] Whitaker notified of K+ level of 2.9. stated to follow electrolye protocol orders for K+ replacement. Renal panel recently completed and stated no EKG at this time. * Gina Hicks RN - 09/21/2020 1:46 AM EDT Stirring around in the bed. Asked how he was doing and he stated he was trying to get out of this chair. I redirected him and explained he was in bed and not in the chair. Then he knocked a cup on the floor with a blanket and I asked if he would like for me to help cover him up and he became agitated and stated no I am trying to cover him up( the bedside table). I again redirected him and he saidwell I guess I need some sleep. I covered him up and he rolled over in the bed. Will; continue to monitor. * Gina Hicks RN - 09/21/2020 12:53 AM EDT Pt is finally resting in sarah beth with eyes closed and sleeping at present time. Resp easy and unlabored. CVS remains in room. Call light within reach. Will continue to monitor. * Gina Hicks RN - 09/21/2020 12:17 AM EDT Pt thrashing around in bed. Trying to reach something on the bedside table and knocked it to the floor. Noted he had pulled the IV in his hand out. Dressing applied. Encouraged to relax and get some sleep. Will continue to monitor. * Nursing - Gina Chester RN - 09/20/2020 11:57 PM EDT Pt continues to be agitated, restless and unable to lay still in bed. Stated he is out of here and he is leaving AMA right now. I explained he is unable to leave at this time d/t recent IV medicationand his inability to stand on his own and unsteady gait. Stated he needed to go to the bathroom. I offered to help him and then he refuses and stated F++k it , I'll just stay in bed. 2 mg IV Ativan given as per PRN order. Offered to help straight him and get him up to the top of the bed. He agreed. Pulled up in bed, warm blankets applied. Will continue to monitor for medication effectiveness. * Renata - Gina Chester RN - 09/20/2020 11:10 PM EDT Pt continues to get out of bed, very fidgety and restless. Pulling off telemetry, refusing to wear it at this time. Will discontinue tele. In bathroom talking to me like Im his long lost best friend and then the next minute flying off the handle, yelling, and demanding to be left alone and then back to best friend mode. Had a BM on the floor in the bathroom because he was unable to sit still and sit on the center of the toilet. He leaned against the wall for stability. Had to wait to medicate d/t him in the bathroom and returning to the bed. IV ativan given as per PRN order. Lilo VALENCIA and I cleaned up the bathroom and he was unable to sit at the side of the bed, although he was insisting to be there, convinced him to turn and slide up to the head of the bed. Will continue to monitor for medication effectiveness. * Renata - Gina Chester RN - 09/20/2020 9:10 PM EDT Up out of bed with bed alarm and CVS alarming, trying to get to the bathroom, refusing help. Very unsteady on his feet, leaning and falling against the wall. Has not fallen down,but tried to educate why we are here to help him and he becomes very argumentative and agitated at this point. CIWA scoredone with a score of 14. Ativan PO as per PRN order given at this time. Was able to convince him toplease call out before he gets up or at least he has agreed to call out. Will continue to monitor for medication effectiveness. * Nursing - Denisse Galvan RN - 09/20/2020 2:12 PM EDT Now waking to eat, medicated with Luminal, BP now up, but scheduled medications given, will re-check again. Note tremors with purposeful movements, monitoring CIWA scores. * Rehab Therapies - Miranda Calixto, PT, DPT - 09/20/2020 12:55 PM EDT PT EVALUATION Name: Yonathan Fernandez Date of : 1975 Admission Date: 09/19/2020 PT Recommendation Recommendations/Continuum of Care: No further Therapy Comments: Patient presents as functionally ind but he ignores safety cueing when upright. Ambulation Distance: 25 feet Ambulation Level of Assistance: Modified independent, Independent Equipment Recommended: Front wheeled walker Barriers to discharge: Fall risk Overall Cognitive Status: Within Functional Limits AM-PAC Raw Score: 24 PT Plan PT Frequency: One time visit History of present illness:Principal Problem: Seizure-like activity (HCC) Active Problems: Tobacco abuse Gastroesophageal reflux disease without esophagitis Loss of consciousness (HCC) Hypokalemia Alcohol withdrawal (HCC) Past Medical History: has a past medical history of Alcohol abuse, Hyperlipidemia, Hypertension, and Myocardial infarct (HCC). Past Surgical History: has a past surgical history that includes hernia repair, arm surgery, Vasectomy, TONSILLECTOMY, Coronary angioplasty with stent, and Coronary angioplasty with stent. Documentation Type Documentation type: Intial Eval Reviewed documentation with family : no family present Comments: Patient is a 45y/o male admitted to acute care under observation status secondary to seizure-like activity. H as/medical chart. Patient reports of pain in his tongue due to biting it during a seizure but is otherwise without c/o. Patient is agreeable to participate with this PT assessment and states he thinks he needs to go to rehab for therapy. When patient initially stood up he was hunched fwd and presented with poor balance. However at the end of this assessment he was walking inthe room, without the walker, not adhering to safety cues and demonstrated ability to crawl into bed in quadriped position without any balance deficits noted. Patient is not currently in need of skilled PT services; he is functionally ind and presents with good strength. Patient/Family Goal Patient/Family Goals (Comment): to be allowed to sleep Restrictions/Precautions Right Lower Extremity Weight Bearing: No restrictions Left Lower Extremity Weight Bearing: No restrictions Falls Prevention Program: Yes Type Of Isolation: Airborne Comments: due to seizures, patient is a fall risk Cognition Overall Cognitive Status: Within Functional Limits Arousal/Alertness: Inconsistent responses to stimuli Memory: Appears intact Decreased safety awareness: Decreased awareness of need for safety Home Living Type of Home: Apartment Lives With: Friend(s) Home Adaptive Equipment: None Information Provided by:: Patient Prior Function Level of [place]: Independent with ADLs;Independent with functional mobility;Independent with homemaking from ambulatory level Assistance Available?: No Activity Tolerance Activity Tolerance: Patient limited by fatigue PT Vitals Vitals - Pre Therapy: SpO2 95% on RA; HR 74bpm Vitals - Post Therapy: SpO2 97% on RA; HR 78bpm PT Pain Assessment Pain Intervention for PT: Patient able to continue with treatment PT Pain Comment: only c/o tongue pain ROM General UE RUE General ROM: WFL LUE General ROM: WFL ROM RLE (Degrees) RLE General ROM: WFL ROM LLE (Degrees) LLE General ROM: WFL Strength RLE Strength RLE: WFL Coordination RLE: WFL Strength LLE Strength LLE: WFL Coordination LLE: WFL Bed Mobility Bed Mobility Level of Assistance: Independent Bed Mobility Therapy Interventions: Completed bed mobility safely and independently Transfer Transfer (1) Level of Assistance: Supervision Transfer Therapy Interventions: Completed transfer safely and independently Ambulation Weight Bearing Status: No restrictions Ambulation Distance: 25 feet Ambulation Level of Assistance: Modified independent;Independent Surface: Level tile Device: Front wheeled walker;None Quality of Gait: Forward trunk flexion Ambulation Therapy Interventions: VC for safe technique Balance Sitting - Static Unsupported: Good Sitting - Dynamic Unsupported: Good Standing - Static Supported: Good Standing - Static Unsupported: Good Standing - Dynamic Supported: Good Standing - Dynamic Unsupported: Fair;+ Education Patient Education Completed With: Patient Role of Therapy and Goals Reviewed: Yes;Patient/Family verbalizes understanding Restrictions/Precautions Reviewed: Yes Safety Reviewed: Yes Pain Management Reviewed: Yes Assessment Prognosis: Fair Problem List: Decreased safety awareness;Increased fall risk Barriers to discharge: Fall risk AM-PAC Mobility Scores AM-PAC Raw Score: 24 AM-PAC Scale Score: 57.68 AM-PAC 0-100% CMS Score: 0.00 AM-PAC CMS Modifier: CH General Chart Reviewed: Yes Treatment Duration: 20 Minutes Family / Caregiver Present: No End of assessment: Resting in bed;Lower extremities elevated;Call light in reach;Nursing notified of patient status Signature: Miranda Calixto PT, DPT September 20, 2020 * D/C Planning - Wendy Mccarty - 09/20/2020 11:38 AM EDT SW unable to meet with patient. Patient does not wake to calling of his name. * Nursing - Denisse Galvan RN - 09/20/2020 10:25 AM EDT Arrives to the floor from Observation unit, has recently been medicated with Ativan, is sleeping soundly. CIWA at this time is negative, unable to obtain the BP, switched ID bands, hung Magnesium andstill sleeps. Will continue to monitor. Telemetry shows SR rate 79, # [id number]. * Nursing - Flip Mares RN - 09/20/2020 10:15 AM EDT Patient leaves floor with transport staff for transfer to room [facility]. * Nursing - Flip Mares RN - 09/20/2020 10:03 AM EDT Report called to Denisse VALENCIA on [address] [place] [address]. * Nursing - Flip Mares RN - 09/20/2020 9:15 AM EDT Attempted to call transfer report to [address] [place] [address]. They state that they cannot take it at this time and will call this nurse back in a few minutes. * Nursing - Flip Mares RN - 09/20/2020 8:35 AM EDT This nurse contacted patient's mother Shanice at [phone] who correlates patient's answers to theMRI checklist. Both patient and mother states that he does not have cardiac stents but he has stents in his lungs, however surgical history in medical chart only lists coronary angioplasty with stentplacement. Mike in MRI notified. * Nursing - Flip Mares RN - 09/20/2020 8:15 AM EDT MRI checklist completed, but patient seems slightly disoriented and is a poor historian. MRI staff notified, MRI on hold until patient is more alert and the checklist can be verified with him or a family member can be contacted to verify. * Nursing - Gladis Garcia RN - 09/20/2020 6:46 AM EDT Received call from Lab with a critical K+ level of 2.9. Tina VALENCIA made aware of. * Nursing - Tina Almonte RN - 09/20/2020 12:40 AM EDT Admission assessment completed. Patient resting in bed. Reports pain where he bit his tongue that he rates 10/10. Denies any other concerns at this time. documented in this [facility]05-04-2021 Hospital course Narrative* Ángel Rodríguez MD - 09/30/2020 1:11 PM EDT [facility] Medicine / [facility] Discharge Summary Yonathan Fernandez Account: [id number] Admitted: 09/19/2020 Discharge Date/Time: 09/30/20 / 1:11 PM Handoff to PCP PCP to address the following 1. This follow-up potassium and magnesium levels 2. Please follow-up on resolution of aspiration pneumonia Clinical Summary Yonathan Fernandez is a 45 y.o. male with a history of CAD, alcohol abuse, and alcohol withdrawal seizures who presented to [facility] 09/19/2020 with seizure-like activity witnessed by the patient's mother in the context of alcohol withdrawal. Patient was initially admitted to the CDU. Hospital course complicated by aspiration pneumonia and AHRF - transferred to step down on 09/26/20. Slowly improving 1. Acute Hypoxic Respiratory Failure: Worsened resp status in the evening of 09/25/20 likely due to aspiration- was on 15L. Increased oxygen requirements up to 15L NRB. Pulm consulted. COVID negative on 09/26/20. Weaned down to room air 2. Sepsis: acquired during hospitalization. Likely due to aspiration pneumonia. Mildly elevated procal at 0.198. Lactate of 1.1 on 09/26/20. Blood and sputum cultures NGTD. 3. Aspiration Pneumonia: With thickened secretions noted on 09/25/20. Pulm consulted for AHRF. ABX initiated in the evening 09/25/20. Passed swallow eval, 4 more days of Augmentin on discharge 4. Alcohol withdrawal with seizure-like activity: pt was on Phenobarb taper, switched to Librium taper on 09/22/20 with intermittent med refusals. Was done CIWA protocols and supportive care. Transitioned Thiamine to IV TID 09/23/20 and to once daily on 09/28/20 for possible wernickes. Follow-up with neurology 5. Acute Encephalopathy: Likely delirium from alcohol withdrawal with possible Wernicke's. CT head 09/19/20 with no acute intracranial abnormality. EEG performed 09/23/20 - without acute pathology. Treatment for Wernicke's with Thiamine, initially improved and then waxed/waned mentation as of 09/24/20. MRI brain 09/25/20 limited by motion but not overt pathology noted. Ammonia 17 on 09/25/20. Neuro consulted but difficult interaction with pt due to delirium. D/W tele neuro, no additional recs on 09/26/20. Slowly improved. Continue thiamine p.o. and follow-up with neurology 6. Severe hypokalemia: replace per electrolyte protocols. Continued new K-Dur 40meq daily. 7. Hypomagnesemia: Mag ox on discharge 8. Coronary artery disease: s/p PCI to pRCA and dRCA (04/2019). Initially continued home plavix, statin, BB, and ACEi but with inability to take PO on 09/27/20, meds were changed to IV as able. StartedASA as tolerable on 09/28/20. Pt has not followed up with a environmental assistant since 2018, referral as an outpatient upon discharge. 9. Hypertension: Home meds 10. Hyperlipidemia: Continued home Lipitor as able 11. Alcohol abuse and dependence: workforce services representative consulted for information regarding rehabilitation after discharge/community resources. 12. Thrombocytopenia: Secondary to alcohol abuse, continue to monitor. 13. Transaminitis: Secondary to alcohol abuse, liver: diffuse fatty infiltration of the liver. Disposition: Home with HH Discharge Medications Medication List START taking these medications Last dose given Next dose due amoxicillin-clavulanate 875-125 MG per tablet Dose: 1 tablet Quantity: 8 tablet Refills: 0 Take 1 tablet by mouth two times a day for 4 days. Commonly known as: AUGMENTIN aspirin EC 81 MG EC tablet Dose: 81 mg Quantity: 30 tablet Refills: 1 Take 1 tablet by mouth daily. Commonly known as: ECOTRIN LOW STRENGTH Magnesium Oxide 400 (241.3 Mg) MG tablet Dose: 400 mg Quantity: 30 tablet Refills: 0 Take 1 tablet by mouth daily. Commonly known as: MAG-OX potassium chloride SA 20 MEQ tablet Dose: 40 mEq Quantity: 30 tablet Refills: 0 Take 2 tablets by mouth daily. Commonly known as: K-DUR,KLOR-CON M20 TAKE these medications PRESCRIBED. Do not change the dosage on your own. Call your health care provider if you have questions. Last dose given Next dose due gabapentin 300 MG capsule Quantity: 90 capsule Refills: 2 TAKE 1 CAPSULE BY MOUTH 3 TIMES DAILY. According to our records, you may have been taking this medication differently. Commonly known as: NEURONTIN This is the list of medications that you provided. Last dose given Next dose due albuterol 108 (90 Base) MCG/ACT inhaler Dose: 2 puff Quantity: 18 g Refills: 4 INHALE 2 PUFFS INTO THE LUNGS EVERY 4 HOURS NEEDED FOR WHEEZING AND/OR SHORTNESS OF BREATH. amitriptyline 75 MG tablet Dose: 75 mg Quantity: 30 tablet Refills: 6 TAKE 1 TABLET BY MOUTH NIGHTLY. Commonly known as: ELAVIL atorvastatin 80 MG tablet Dose: 80 mg Quantity: 30 tablet Refills: 11 TAKE 1 TABLET BY MOUTH NIGHTLY. Commonly known as: LIPITOR B-1 100 MG Tabs Quantity: 30 tablet Refills: 3 TAKE 1 TABLET BY MOUTH DAILY. Blood Pressure Cuff Misc Quantity: 1 each Refills: 0 Use PRN clopidogrel 75 MG tablet Dose: 75 mg Quantity: 30 tablet Refills: 2 TAKE 1 TABLET BY MOUTH DAILY. Commonly known as: PLAVIX folic acid 1 MG tablet Dose: 1 mg Quantity: 30 tablet Refills: 1 Take 1 tablet by mouth daily. Commonly known as: FOLVITE hydrOXYzine 50 MG tablet Dose: 50 mg Quantity: 30 tablet Refills: 0 Take 1 tablet by mouth every 6 hours as needed for Anxiety (for MILD anxiety- patient reported anxiety 1-4). Commonly known as: ATARAX lisinopril-hydrochlorothiazide 20-12.5 MG per tablet Dose: 2 tablet Quantity: 60 tablet Refills: 6 TAKE 2 TABLETS BY MOUTH DAILY. Commonly known as: PRINZIDE,ZESTORETIC Metoprolol Tartrate 25 MG tablet Dose: 25 mg Quantity: 60 tablet Refills: 2 TAKE 1 TABLET BY MOUTH TWO TIMES A DAY. Commonly known as: LOPRESSOR pantoprazole 40 MG tablet Dose: 40 mg Quantity: 30 tablet Refills: 2 TAKE 1 TABLET BY MOUTH DAILY. Commonly known as: PROTONIX sildenafil 100 MG tablet Dose: 100 mg Quantity: 30 tablet Refills: 6 Take 1 tablet by mouth daily as needed. Commonly known as: VIAGRA vitamin B-12 1000 MCG tablet Quantity: 30 tablet Refills: 3 TAKE ONE TABLET BY MOUTH ONCE DAILY Commonly known as: CYANOCOBALAMIN Physician(s) Family: Hayden Herrera APRN CNP, , Address: [address] [place] [address] Follow Up: Homecare, [place] [address] [facility] [address] [place] [address] Hayden Herrera APRN SAIL FINISHER [employer]ACHINE [address] [place] [address] [facility] [address] [place] [address] Ambulatory referral to Home Health For more detailed information including patient medical records, please contact [phone] or go to [email or web address] Patient instructions, including activity, were given to the patient/family at discharge. Please seethe After Visit Summary in the medical record for details. Time spent on discharge: > 30 Minutes Completed by: Ángel Rodríguez on 09/30/20, 1:11 PM documented in this [facility]05-04-2021 History of Present illness Narrative* Ángel Rodríguez MD - 09/30/2020 12:52 PM EDT [facility] Medicine / [facility] Inpatient Progress Note 09/30/2020 Yonathan Fernandez 1975 [id number] Assessment/Plan: Yonathan Fernandez is a 45 y.o. male with a history of CAD, alcohol abuse, and alcohol withdrawal seizures who presented to [facility] 09/19/2020 with seizure-like activity witnessed by the patient's mother in the context of alcohol withdrawal. Patient was initially admitted to the CDU. Hospital course complicated by aspiration pneumonia and AHRF - transferred to step down on 09/26/20. Slowly improving 1. Acute Hypoxic Respiratory Failure: Worsened resp status in the evening of 09/25/20 likely due to aspiration- was on 15L. Increased oxygen requirements up to 15L NRB. Pulm consulted. COVID negative on 09/26/20. Weaned down to room air 2. Sepsis: acquired during hospitalization. Likely due to aspiration pneumonia. Mildly elevated procal at 0.198. Lactate of 1.1 on 09/26/20. Blood and sputum cultures NGTD. 3. Aspiration Pneumonia: With thickened secretions noted on 09/25/20. Pulm consulted for AHRF. ABX initiated in the evening 09/25/20. Passed swallow eval, 4 more days of Augmentin on discharge 4. Alcohol withdrawal with seizure-like activity: pt was on Phenobarb taper, switched to Librium taper on 09/22/20 with intermittent med refusals. Was done CIWA protocols and supportive care. Transitioned Thiamine to IV TID 09/23/20 and to once daily on 09/28/20 for possible wernickes. Follow-up with neurology 5. Acute Encephalopathy: Likely delirium from alcohol withdrawal with possible Wernicke's. CT head 09/19/20 with no acute intracranial abnormality. EEG performed 09/23/20 - without acute pathology. Treatment for Wernicke's with Thiamine, initially improved and then waxed/waned mentation as of 09/24/20. MRI brain 09/25/20 limited by motion but not overt pathology noted. Ammonia 17 on 09/25/20. Neuro consulted but difficult interaction with pt due to delirium. D/W tele neuro, no additional recs on 09/26/20. Slowly improved. Continue thiamine p.o. and follow-up with neurology 6. Severe hypokalemia: replace per electrolyte protocols. Continued new K-Dur 40meq daily. 7. Hypomagnesemia: Mag ox on discharge 8. Coronary artery disease: s/p PCI to pRCA and dRCA (04/2019). Initially continued home plavix, statin, BB, and ACEi but with inability to take PO on 09/27/20, meds were changed to IV as able. StartedASA as tolerable on 09/28/20. Pt has not followed up with a environmental assistant since 2018, referral as an outpatient upon discharge. 9. Hypertension: Home meds 10. Hyperlipidemia: Continued home Lipitor as able 11. Alcohol abuse and dependence: workforce services representative consulted for information regarding rehabilitation after discharge/community resources. 12. Thrombocytopenia: Secondary to alcohol abuse, continue to monitor. 13. Transaminitis: Secondary to alcohol abuse, US liver: diffuse fatty infiltration of the liver. 14. Code Status: Full 15. DVT Prophylaxis: Lovenox Current living situation: Home Expected Disposition: Home with home health or rehab Estimated discharge date: 09/30/2020 Subjective: Patient has been seen and examined this morning. Patient looks in no acute distress. He denies any complaints. He reports he was able to ambulate with a walker. He wants to go home. On review of system patient reports some cough productive of greenish sputum. He is on room air now. Lungs appears vijay clear 8 point review of system done and is negative except what mentioned HPI Physical Exam: Visit Vitals BP (!) 138/92 (Patient Position: Lying) Pulse 85 Temp 98.4 F (36.9 C) (Oral) Resp 18 Ht 5' 4 (1.626 m) Wt 61.1 kg (134 lb 9.6 oz) SpO2 99% BMI 23.10 kg/m General: NAD Eyes: EOMI ENT: neck supple Cardiovascular: Regular rate. Respiratory: Clear to auscultation bilaterally Gastrointestinal: Soft, non tender Genitourinary: no suprapubic tenderness Musculoskeletal: No joint redness or swelling. Skin: warm, dry Neuro: Alert. Oriented to place and time Psych: Mood appropriate. Current Medications: albuterol 2.5mg-ipratropium 0.5mg/3ml 3 mL Nebulization Q4H MN amitriptyline 75 mg Oral Nightly aspirin EC 81 mg Oral Daily atorvastatin 80 mg Oral Nightly clopidogrel 75 mg Oral Daily enoxaparin 40 mg Subcutaneous Daily folic acid 1 mg Oral Daily gabapentin 300 mg Oral 3 times per day lisinopril 20 mg Oral Daily before lunch And hydroCHLOROthiazide 12.5 mg Oral Daily before lunch Metoprolol Tartrate 25 mg Oral 2x Daily nicotine 21 mg Transdermal Daily pantoprazole 40 mg Oral QPM BEFORE DINNER piperacillin-tazobactam 3.375 g Intravenous 4 times per day potassium chloride SA 20 mEq Oral Once potassium chloride SA 40 mEq Oral Daily thiamine 250 mg Intravenous Daily Labs, Imaging and Studies reviewed: Recent Labs Lab 09/30/20 0440 09/29/20 0618 09/28/20 0634 HGB 11.1* 11.4* 11.4* HCT 33.3* 34.3* 34.9* PLT 520.0* 433.0* 380.0 Recent Labs Lab 09/30/20 1030 09/30/20 0440 09/29/20 0742 09/29/20 0618 NA -- 138 136 137 K 4.6 3.3* 2.9* 2.8* CL -- 100 101 101 BUN -- 7* 4* 4* CREATININE -- 0.72 0.70 0.70 CALCIUM -- 9.6 9.4 9.3 LABALBU -- -- 3.7 -- PHOS -- 4.6* 4.7* -- No results for input(s): ALT, AST, ALKPHOS, BILITOT in the last 168 hours. No results for input(s): INR in the last 168 hours. * Ángel Rodríguez MD - 09/29/2020 4:10 PM EDT [facility] Medicine / [facility] Inpatient Progress Note 09/29/2020 Yonathan Fernandez [id number] Assessment/Plan: Yonathan Fernandez is a 45 y.o. male with a history of CAD, alcohol abuse, and alcohol withdrawal seizures who presented to [facility] 09/19/2020 with seizure-like activity witnessed by the patient's mother in the context of alcohol withdrawal. Patient was initially admitted to the CDU. Hospital course complicated by aspiration pneumonia and AHRF - transferred to [facility] on 09/26/20. Slowly improving 1. Acute Hypoxic Respiratory Failure: Worsened resp status in the evening of 09/25/20 likely due to aspiration. Increased oxygen requirements up to 15L NRB. [facility] COVID negative on 09/26/20. Slowly improved and on HFNC as of 09/28/20 2. Sepsis: acquired during hospitalization. Likely due to aspiration pneumonia. Mildly elevated procal at 0.198. Lactate of 1.1 on 09/26/20. Blood and sputum cultures NGTD. Management as below. 3. Aspiration Pneumonia: With thickened secretions noted on 09/25/20. Pulm consulted for AHRF. ABX initiated in the evening 09/25/20. Passed swallow eval 4. Alcohol withdrawal with seizure-like activity: pt was on Phenobarb taper, switched to Librium taper on 09/22/20 with intermittent med refusals. Was done CIWA protocols and supportive care. Transitioned Thiamine to IV TID 09/23/20 and to once daily on 09/28/20 for possible wernickes. 5. Acute Encephalopathy: Likely delirium from alcohol withdrawal with possible Wernicke's. CT head 09/19/20 with no acute intracranial abnormality. EEG performed 09/23/20 - without acute pathology. Treatment for Wernicke's with Thiamine, initially improved and then waxed/waned mentation as of 09/24/20. MRI brain 09/25/20 limited by motion but not overt pathology noted. Ammonia 17 on 09/25/20. Neuro consulted but difficult interaction with pt due to delirium. D/W tele neuro, no additional recs on 09/26/20. Slowly improved with increased alertness on 09/28/20, still confused as to events of the hospitalization 6. Severe hypokalemia: replace per electrolyte protocols. Continued new K-Dur 40meq daily. Check magnesium and phosphate 7. Hypomagnesemia: Replace and monitor prn 8. Coronary artery disease: s/p PCI to pRCA and dRCA (04/2019). Initially continued home plavix, statin, BB, and ACEi but with inability to take PO on 09/27/20, meds were changed to IV as able. StartedASA as tolerable on 09/28/20. Pt has not followed up with a environmental assistant since 2019, referral as an outpatient upon discharge. 9. Hypertension: Home meds 10. Hyperlipidemia: Continued home Lipitor as able 11. Alcohol abuse and dependence: workforce services representative consulted for information regarding rehabilitation after discharge/community resources. 12. Thrombocytopenia: Secondary to alcohol abuse, continue to monitor. 13. Transaminitis: Secondary to alcohol abuse, US liver: diffuse fatty infiltration of the liver. 14. Code Status: Full 15. DVT Prophylaxis: Lovenox Current living situation: Home Expected Disposition: Home with home health or rehab Estimated discharge date: 09/30/2020 Subjective: Patient has been seen and examined this early afternoon. Patient denies any complaints and wants togo home. On review of system he reports difficulty with ambulation. Patient seems to be slow. Has mild difficulty with [id number] exam. Vital signs are normal. The rest of exam is nonfocal. Potassium remains low 8 point review of systems done and was negative except what has been mentioned HPI Physical Exam: Visit Vitals BP 129/78 (Patient Position: Lying) Pulse 88 Temp 98.8 F (37.1 C) (Oral) Resp 18 Ht 5' 4 (1.626 m) Wt 64.3 kg (141 lb 11.2 oz) SpO2 90% BMI 24.32 kg/m General: NAD Eyes: EOMI ENT: neck supple Cardiovascular: Regular rate. Respiratory: Clear to auscultation Gastrointestinal: Soft, non tender Genitourinary: no suprapubic tenderness Musculoskeletal: No joint redness or swelling. Skin: warm, dry Neuro: Alert. Slow, no nystagmus, slightly abnormal [id number] worse on the left Psych: Mood appropriate. Current Medications: albuterol 2.5mg-ipratropium 0.5mg/3ml 3 mL Nebulization Q4H WA amitriptyline 75 mg Oral Nightly aspirin EC 81 mg Oral Daily atorvastatin 80 mg Oral Nightly clopidogrel 75 mg Oral Daily enoxaparin 40 mg Subcutaneous Daily folic acid 1 mg Oral Daily gabapentin 300 mg Oral 3 times per day lisinopril 20 mg Oral Daily before lunch And hydroCHLOROthiazide 12.5 mg Oral Daily before lunch Metoprolol Tartrate 25 mg Oral 2x Daily nicotine 21 mg Transdermal Daily pantoprazole 40 mg Oral QPM BEFORE DINNER piperacillin-tazobactam 3.375 g Intravenous 4 times per day thiamine 250 mg Intravenous Daily Labs, Imaging and Studies reviewed: Recent Labs Lab 09/29/20 0618 09/28/20 0634 09/27/20 0424 HGB 11.4* 11.4* 12.1* HCT 34.3* 34.9* 36.4* PLT 433.0* 380.0 331.0 Recent Labs Lab 09/29/20 0742 09/29/20 0618 09/28/20 0634 NA 136 137 136 K 2.9* 2.8* 4.0 CL 101 101 102 BUN 4* 4* 4* CREATININE 0.70 0.70 0.64* CALCIUM 9.4 9.3 9.0 LABALBU 3.7 -- -- PHOS 4.7* -- -- No results for input(s): ALT, AST, ALKPHOS, BILITOT in the last 168 hours. No results for input(s): INR in the last 168 hours. * Ayaz Lund MD - 09/28/2020 10:20 AM EDT [facility] Medicine / [facility] Inpatient Progress Note 09/28/2020 Yonathan Fernandez 1975 [id number] Assessment/Plan: Yonathan Fernandez is a 45 y.o. male with a history of CAD, alcohol abuse, and alcoholwithdrawal seizures who presented to [facility] 09/19/2020 with seizure-like activity witnessed by the patient's mother in the context of alcohol withdrawal. Patient was initially admitted to the CDU. Hospital course complicated by aspiration pneumonia and AHRF - transferred to [facility] on 09/26/20. Slowlyimproving 1. Acute Hypoxic Respiratory Failure: Worsened resp status in the evening of 09/25/20 likely due to aspiration. Increased oxygen requirements up to 15L NRB. [facility] COVID negative on 09/26/20. Slowly improved and on HFNC as of 09/28/20 2. Sepsis: acquired during hospitalization. Likely due to aspiration pneumonia. Mildly elevated procal at 0.198. Lactate of 1.1 on 09/26/20. Blood and sputum cultures NGTD. Management as below. 3. Aspiration Pneumonia: With thickened secretions noted on 09/25/20. Pulm consulted for AHRF. ABX initiated in the evening 09/25/20, continued until further culture data returns. ST consulted and recsNPO on 09/27/20 - meds changed to IV. Continued assessment of swallow function. 4. Alcohol withdrawal with seizure-like activity: pt was on Phenobarb taper, switched to Librium taper on 09/22/20 with intermittent med refusals. Continued seizure and aspiration precautions. Continued CIWA protocols and supportive care. Continued supplements but changed to IV on 09/27/20. Transitioned Thiamine to IV TID 09/23/20 and to once daily on 09/28/20 for possible wernickes 5. Acute Encephalopathy: Likely delirium from alcohol withdrawal. CT head 09/19/20 with no acute intracranial abnormality. EEG performed 09/23/20 - without acute pathology. Treatment for Wernicke's with Thiamine, initially improved and then waxed/waned mentation as of 09/24/20. MRI brain 09/25/20 limited by motion but not overt pathology noted. Ammonia 17 on 09/25/20. Neuro consulted but difficult interaction with pt due to delirium. D/W tele neuro, no additional recs on 09/26/20. Slowly improved with increased alertness on 09/28/20, still confused as to events of the hospitalization 6. Severe hypokalemia: replace per electrolyte protocols. Continued new K-Dur 40meq daily. 7. Hypomagnesemia: Replace and monitor prn 8. Coronary artery disease: s/p PCI to pRCA and dRCA (04/2019). Initially continued home plavix, statin, BB, and ACEi but with inability to take PO on 09/27/20, meds were changed to IV as able. StartedASA as tolerable on 09/28/20. Pt has not followed up with a environmental assistant since 2018, referral as an outpatient upon discharge. 9. Hypertension: Initially continued home meds and transitioned to IV meds on 09/27/20. BP contorlled 10. Hyperlipidemia: Continued home Lipitor as able 11. Alcohol abuse and dependence: workforce services representative consulted for information regarding rehabilitation after discharge/community resources. 12. Thrombocytopenia: Secondary to alcohol abuse, continue to monitor. 13. Transaminitis: Secondary to alcohol abuse, US liver: diffuse fatty infiltration of the liver. 14. Code Status: Full 15. DVT Prophylaxis: Lovenox Current living situation: Home Expected Disposition: Home Estimated discharge date: Pending Updated mother via phone at bedside on 09/28/20. She is in agreement that he should remain hospitalized. Subjective: Pt remains awake and interactive. Denied chest pain, pressure, SOB. Wants to go home, thinks his mom needs him at home. His mom on the phone said she was ok and didn't need him at home. Pt seen b/w [id number] Physical Exam: Visit Vitals BP 132/83 Pulse 84 Temp 98 F (36.7 C) (Oral) Resp 18 Ht 5' 4 (1.626 m) Wt 65.9 kg (145 lb 3.2 oz) SpO2 96% BMI 24.92 kg/m General: NAD, sitting up in bed Head: NCAT Eyes: Normal conjunctiva and lids ENMT: Normal external appearance of ears and nose, Mucus membranes moist Neck: Supple Cardiovascular: Regular rate and rhythm, no murmur, no LE edema. Respiratory: coarse rhonchi in all lung bautista, no increased WOB Gastrointestinal: Soft, non tender, non distended, normal bowel sounds Genitourinary: no suprapubic tenderness. no Griffin Musculoskeletal: No cyanosis of the digits. Moves all 4 extremities Skin: warm, dry Neuro: No overt facial droop or ptosis. 5/5 strength in all 4 extrems. Follows commands and wigglestoes and squeezes my hands Psych: less agitated. AAOX2 - didn't know the year. He also didn't remember why he was hospitalized. Current Medications: albuterol 2.5mg-ipratropium 0.5mg/3ml 3 mL Nebulization Q4H WA aspirin EC 81 mg Oral Daily clopidogrel 75 mg Oral Daily enalaprilat 2.5 mg Intravenous Q8H enoxaparin 40 mg Subcutaneous Daily folic acid IV syringe 1 mg Intravenous Daily metoprolol 2.5 mg IV Push 4 times per day nicotine 21 mg Transdermal Daily Pantoprazole 40 mg IV Push QPM BEFORE DINNER piperacillin-tazobactam 3.375 g Intravenous 3 times per day thiamine 250 mg Intravenous Daily Labs, Imaging and Studies reviewed: Recent Labs Lab 09/28/20 0634 09/27/20 0424 09/26/20 0557 HGB 11.4* 12.1* 12.1* HCT 34.9* 36.4* 36.5* PLT 380.0 331.0 297.0 Recent Labs Lab 09/28/20 0634 09/27/20 0424 09/26/20 0557 NA 136 134* 134* K 4.0 3.5* 3.8 CL 102 101 101 BUN 4* 13 16 CREATININE 0.64* 0.78 1.03 CALCIUM 9.0 9.0 9.0 No results for input(s): ALT, AST, ALKPHOS, BILITOT in the last 168 hours. No results for input(s): INR in the last 168 hours. * Tremayne Melendrez MD - 09/28/2020 9:07 AM EDT Pulmonology Progress Note 09/28/2020 9:07 AM Assessment/ Plan: 1. Acute hypoxemic respiratory failure likely due to aspiration episode. Increased FiO2 requirementlast night. Currently on 1.5 L nasal cannula with O2 saturation 94% and he appears comfortable. He has a moist cough which she attributes to a smoker's cough and states he has this every day. Continue with pulmonary hygiene measures. Aspiration precautions. On empiric antibiotic therapy with piperacillin tazobactam (started 09/26) which has good gram-negative as well as anaerobic coverage. 2. No major lobar or even segmental atelectasis on chest x-ray 09/26. No need for therapeutic bronchoscopy. 3. Chronic alcohol abuse. Alcohol withdrawal with seizure activity. He is on the CIWA protocol. Seizure precautions. Receiving thiamine. Avoid oversedation in light of his aspiration episode. 4. Long-term active smoker. He certainly has features of chronic bronchitis and likely has significant obstructive lung disease. No PFTs available. NRT. He should quit smoking and will be advised to do so upon discharge 5. Hypertension. Receiving clonidine, enalaprilat, metoprolol 6. Hyperlipidemia. Resume atorvastatin when taking p.o. better 7. History of CAD with MD; prior PCI with stenting of the proximal and distal RCA 05/15/2019 by . He is on clopidogrel but not aspirin for some reason. I recommend adding ASA 81 mg daily unless discontinued for specific reason. Platelet count now normal. Resume atorvastatin when taking p.o. better 8. GI Prophylaxis with PPI. He is on a chronic PPI at home. 9. DVT Prophylaxis with enoxaparin 10. Nutrition: NPO The Pulmonology Consult Service will sign off. Please call with any questions or concerns, extension [phone]. Thank you. The entirety of the above assessment and plan was reviewed, verified, and amended on this date 09/28/2020 ([facility]) CC: Acute hypoxemic respiratory failure. Aspiration. Subjective: Acute Events Overnight: Middle-age man who appears his stated age of 45. He is asking to go home to help take care of his mother who has COPD and has difficulty doing activities of daily living. He is much more clear mentally and appropriate in his conversation with me today. He has a moist cough intermittently but statesthis is a smoker's cough and that he has this daily. He admits to smoking 1 pack/day currently. No complaint of chest pain. He has been afebrile for the past 24 hours. He did have fever to 102 F on09/26. Medications: Reviewed Objective: Vital signs for last 24 hours: Temp: [98 F (36.7 C)-99.2 F (37.3 C)] 98 F (36.7 C) Heart Rate: [70-106] 84 Resp: [16-18] 18 BP: (96-166)/(76-96) 132/83 Intake/Output last 3 shifts: I/O last 3 completed shifts: In: 3450 [I.V.:3450] Out: 1575 [Urine:1575] Physical Exam: Visit Vitals BP 132/83 Pulse 84 Temp 98 F (36.7 C) (Oral) Resp 18 Ht 5' 4 (1.626 m) Wt 65.9 kg (145 lb 3.2 oz) SpO2 96% BMI 24.92 kg/m All Active Lines: Patient Circulatory Lines Status Active PICC Line / CVC Line / PIV Line / Intraosseous Line / Epidural Line / ART Line / Line / Tunneled CVC / Port Name: Placement date: Placement time: Site: Days: Ultrasound Guided Peripheral IV 09/26/20 Anterior;Left Forearm 20 G 09/26/20 1223 1 PIV General Appearance: Alert middle-age man who appears his stated age of 45. He is wearing nasal cannula O2. He is in no acute respiratory distress at present. Head: Normocephalic, without obvious abnormality, atraumatic Eyes: conjunctiva/corneas clear, EOM's intact Ears: Normal external ears, hearing grossly normal Nose: Nares normal, no drainage, nasal cannula O2 in place. Throat: Lips, mucosa, normal Neck: Supple, symmetrical, trachea midline Back: Symmetric, no curvature,no CVA tenderness Lungs: He is not labored or tachypneic. Intermittent moist cough but clear after he coughs. He is not wheezing at present. Chest wall: No tenderness or deformity Heart: Regular rate and rhythm, S1 and S2 normal, no murmur, rub or gallop Abdomen: Soft, non-tender Genitalia: deferred Rectal: deferred Extremities: Extremities normal, atraumatic, no cyanosis or edema Pulses: 2+ radial Skin: Skin color, texture, turgor normal, no rashes or lesions Lymph nodes: Cervical, supraclavicular nodes normal Neurologic: Awake, alert, and appropriate in his conversation with me. Moving all extremities. Facesymmetric, speech fluent. Much clearer mentally than he was on exam yesterday. The entirety of the above exam has been performed on this date 09/28/2020, has been reviewed, verified, and amended accordingly. (JPA) Diagnostic studies: Labs and radiographic studies personally reviewed CXR: Results for orders placed during the hospital encounter of 09/19/20 XR CHEST PORTABLE (1 VIEW) 09/26/2020 Impression Suboptimal examination due to low depth of inspiration. There appears to be worsening opacities at the right lung base and left retrocardiac region, concerning for developing pneumonias. Question tiny right pleural effusion. Recommend continued radiographic follow up to document resolution. Lab Results Component Value Date WHITEBLOODCE 8.0 09/28/2020 HGB 11.4 (L) 09/28/2020 HCT 34.9 (L) 09/28/2020 MCV 112.2 (H) 09/28/2020 PLT 380.0 09/28/2020 Lab Results Component Value Date CREATININE 0.64 (L) 09/28/2020 BUN 4 (L) 09/28/2020 NA 136 09/28/2020 K 4.0 09/28/2020 CL 102 09/28/2020 CO2 27 09/28/2020 Tremayne Melendrez * Tremayne Melendrez MD - 09/27/2020 12:36 PM EDT Pulmonology Progress Note 09/27/2020 12:36 PM Assessment/ Plan: 1. Acute hypoxemic respiratory failure likely due to aspiration episode. Increased FiO2 requirementlast night. Currently on 10 L nasal cannula with O2 saturation 93% and he appears comfortable. Continue with pulmonary hygiene measures. Aspiration precautions. On empiric antibiotic therapy with pipe racillin tazobactam which has good gram-negative as well as anaerobic coverage. 2. No major lobar or even segmental atelectasis on chest x-ray. No need for therapeutic bronchoscopy at this time. 3. Chronic alcohol abuse. Alcohol withdrawal with seizure activity. He is on the CIWA protocol. Seizure precautions. Receiving thiamine. Try to avoid oversedation in light of his aspiration episode. 4. Long-term active smoker. He may have some COPD but no PFTs available. NRT. He should quit smoking and will be advised to do so upon discharge 5. Hypertension. Receiving clonidine, enalaprilat, metoprolol 6. Hyperlipidemia 7. History of CAD with MD; prior PCI with stenting of the proximal and distal RCA 05/15/2019 by . He is on clopidogrel but not aspirin for some reason. I recommend adding ASA 81 mg daily unless discontinued for specific cause. Resume atorvastatin when taking p.o. 8. GI Prophylaxis with PI. He is on a chronic PPI at home. 9. DVT Prophylaxis with enoxaparin 10. Nutrition: NPO The entirety of the above assessment and plan was reviewed, verified, and amended on this date 09/27/2020 ([facility]) Plan of care discussed with nursing/staff. CC: Acute hypoxemic respiratory failure. Aspiration. Subjective: Acute Events Overnight: Middle-age man who appears his stated age of 45. He is sitting up in bed. He looks a little sleepy but is readily arousable to voice. He denies shortness of breath at present. He is not complaining of chest pain. He can follow some simple commands for me. No cough while I was in the room. T-max 102F over the last 24 h. Other vital signs stable. Medications: Reviewed Objective: Vital signs for last 24 hours: Temp: [99.2 F (37.3 C)-102 F (38.9 C)] 99.2 F (37.3 C) Heart Rate: [80-128] 80 Resp: [18-43] 18 BP: (94-145)/(45-86) 100/76 Intake/Output last 3 shifts: I/O last 3 completed shifts: In: 1423.7 [I.V.:720.4; IV Piggyback:703.3] Out: 700 [Urine:700] Physical Exam: Visit Vitals BP 100/76 (Patient Position: Lying) Pulse 80 Temp 99.2 F (37.3 C) (Oral) Resp 18 Ht 5' 4 (1.626 m) Wt 63.6 kg (140 lb 4.8 oz) SpO2 97% BMI 24.08 kg/m All Active Lines: Patient Circulatory Lines Status Active PICC Line / CVC Line / PIV Line / Intraosseous Line / Epidural Line / ART Line / Line / Tunneled CVC / Port Name: Placement date: Placement time: Site: Days: Ultrasound Guided Peripheral IV 09/26/20 Anterior;Left Forearm 20 G 09/26/20 1223 1 PIV General Appearance: Slightly lethargic middle-age man who appears his stated age of 45. He is wearing nasal cannula O2. He is in no acute respiratory distress at present. Head: Normocephalic, without obvious abnormality, atraumatic Eyes: PER, conjunctiva/corneas clear, EOM's intact Ears: Normal external ears, hearing grossly normal Nose: Nares normal, no drainage, nasal cannula O2 in place. Throat: Lips, mucosa, normal Neck: Supple, symmetrical, trachea midline Back: Symmetric, no curvature,no CVA tenderness Lungs: He is not labored or tachypneic. Few rhonchi. Chest wall: No tenderness or deformity Heart: Regular rate and rhythm, S1 and S2 normal, no murmur, rub or gallop Abdomen: Soft, non-tender Genitalia: deferred Rectal: deferred Extremities: Extremities normal, atraumatic, no cyanosis or edema Pulses: 2+ radial Skin: Skin color, texture, turgor normal, no rashes or lesions Lymph nodes: Cervical, supraclavicular nodes normal Neurologic: A little lethargic but responds to verbal. Moving all extremities. Face symmetric, speech fluent though is not very talkative at present The entirety of the above exam has been performed on this date 09/27/2020, has been reviewed, verified, and amended accordingly. (JPA) Diagnostic studies: Labs and radiographic studies personally reviewed CXR: Results for orders placed during the hospital encounter of 09/19/20 XR CHEST PORTABLE (1 VIEW) 09/26/2020 Impression Suboptimal examination due to low depth of inspiration. There appears to be worsening opacities at the right lung base and left retrocardiac region, concerning for developing pneumonias. Question tiny right pleural effusion. Recommend continued radiographic follow up to document resolution. Lab Results Component Value Date WHITEBLOODCE 8.1 09/27/2020 HGB 12.1 (L) 09/27/2020 HCT 36.4 (L) 09/27/2020 MCV 112.3 (H) 09/27/2020 PLT 331.0 09/27/2020 Lab Results Component Value Date CREATININE 0.78 09/27/2020 BUN 13 09/27/2020 NA 134 (L) 09/27/2020 K 3.5 (L) 09/27/2020 CL 101 09/27/2020 CO2 23 09/27/2020 Lab Results Component Value Date INR 0.94 09/21/2020 INR 1.03 05/14/2019 INR 0.95 12/17/2018 Tremayne Melendrez * Ayaz Lund MD - 09/27/2020 11:05 AM EDT [facility] Medicine / [facility] Inpatient Progress Note 09/27/2020 Yonathan Fernandez 1975 [id number] Assessment/Plan: Yonathan Fernandez is a 45 y.o. male with a history of CAD, alcohol abuse, and alcoholwithdrawal seizures who presented to [facility] 09/19/2020 with seizure-like activity witnessed by the patient's mother in the context of alcohol withdrawal. Patient was initially admitted to the CDU. Hospital course complicated by aspiration pneumonia and AHRF - transferred to step down on 09/26/20. 1. Acute Hypoxic Respiratory Failure: Worsened resp status in the evening of 09/25/20 likely due to aspiration. Increased oxygen requirements up to 15L NRB. Pulm consulted and transferred to Step Downon 09/26/20. COVID negative on 09/26/20. Treatment as below 2. Sepsis: acquired during hospitalization. Likely due to aspiration pneumonia. Mildly elevated procal at 0.198. Lactate of 1.1 on 09/26/20. Blood and sputum cultures pending. Management as below. 3. Aspiration Pneumonia: With thickened secretions noted on 09/25/20. Pulm consulted for AHRF. Zosyninitiated in the evening 09/25/20, continued until further culture data returns. ST consulted and recs NPO on 09/27/20 - meds changed to IV. 4. Alcohol withdrawal with seizure-like activity: pt was on Phenobarb taper, switched to Librium taper on 09/22/20 with intermittent med refusals. Continued seizure and aspiration precautions. Continued CIWA protocols and supportive care. Continued supplements but changed to IV on 09/27/20. Transitioned Thiamine to IV TID 09/23/20 for 5 days for possible wernickes and will de-escalate on . 5. Acute Encephalopathy: Likely delirium from alcohol withdrawal. CT head 09/19/20 with no acute intracranial abnormality. EEG performed 09/23/20 - without acute pathology. Treatment for Wernicke's with Thiamine, initially improved and then waxed/waned mentation as of 09/24/20. MRI brain 09/25/20 limited by motion but not overt pathology noted. Ammonia 17 on 09/25/20. Neuro consulted but difficult interaction with pt due to delirium. D/W tele neuro, no additional recs on 09/26/20. 6. Severe hypokalemia: replace per electrolyte protocols. Continued new K-Dur 40meq daily. 7. Hypomagnesemia: Replace and monitor prn 8. Coronary artery disease: s/p PCI to pRCA and dRCA (04/2019). Initially continued home plavix, statin, BB, and ACEi but with inability to take PO on 09/27/20, meds were changed to IV as able. Pt has not followed up with a environmental assistant since 2018, referral as an outpatient upon discharge. 9. Hypertension: Initially continued home meds and transitioned to IV meds on 09/27/20. BP contorlled 10. Hyperlipidemia: Continued home Lipitor as able 11. Alcohol abuse and dependence: workforce services representative consulted for information regarding rehabilitation after discharge/community resources. 12. Thrombocytopenia: Secondary to alcohol abuse, continue to monitor. 13. Transaminitis: Secondary to alcohol abuse, US liver: diffuse fatty infiltration of the liver. 14. Code Status: Full 15. DVT Prophylaxis: Lovenox Current living situation: Home Expected Disposition: Home Estimated discharge date: Pending Updated mother via phone at bedside on 09/27/20. She is in agreement that he should remain hospitalized. Subjective: Pt is much more awake and interactive this morning stating he wants to go home. He is unsure why heis in the hospital, has no recollection of the aspiration and why he was transferred to [facility], he is not aware that he is on antibiotics and he does not realize that he is on significant oxygen that without it, he would likely desturate and have worsening hypoxia. He is agreeable to stay in the hospital for now but is unhappy about it. Denied chest pain, pressure, SOB. Pt seen b/w [phone] Case d/w RN at bedside Physical Exam: Visit Vitals BP 96/45 (BP Location: Right arm, Patient Position: Lying) Pulse 103 Temp 99.8 F (37.7 C) (Oral) Resp 18 Ht 5' 4 (1.626 m) Wt 63.6 kg (140 lb 4.8 oz) SpO2 98% BMI 24.08 kg/m General: NAD, sitting up in bed Head: NCAT Eyes: Normal conjunctiva and lids, EOMI ENMT: Normal external appearance of ears and nose, Mucus membranes moist Neck: Supple and nontender Cardiovascular: Regular rate and rhythm, no murmur, no LE edema. Respiratory: coarse rhonchi in all lung bautista, slight tachypnea Gastrointestinal: Soft, non tender, non distended, normal bowel sounds Genitourinary: no suprapubic tenderness. no Griffin Musculoskeletal: No cyanosis of the digits. Moves all 4 extremities Skin: warm, dry Neuro: No overt facial droop or ptosis. 5/5 strength in all 4 extrems. Follows commands and wigglestoes and squeezes my hands Psych: agitated, expressing he wants to leave. He said he'd be ok if he went home and . He denied SI/HI and admitted he said that out of frustration. AAOX3 but does not understand his illness currently and ongoing medical needs Current Medications: albuterol 2.5mg-ipratropium 0.5mg/3ml 3 mL Nebulization Q4H (resp) [START ON 09/28/2020] albuterol 2.5mg-ipratropium 0.5mg/3ml 3 mL Nebulization Q4H WA clopidogrel 75 mg Oral Daily enalapril (VASOTEC) IVPB 2.5 MG / 50 ML 2.5 mg Intravenous Q8H enoxaparin 40 mg Subcutaneous Daily folic acid IV syringe 1 mg Intravenous Daily metoprolol 2.5 mg IV Push 4 times per day nicotine 21 mg Transdermal Daily Pantoprazole 40 mg IV Push QPM BEFORE DINNER piperacillin-tazobactam 3.375 g Intravenous 3 times per day thiamine 250 mg Intravenous 3x Daily Labs, Imaging and Studies reviewed: Recent Labs Lab 09/27/20 0424 09/26/20 0557 09/25/20 0631 HGB 12.1* 12.1* 12.8 HCT 36.4* 36.5* 37.9 PLT 331.0 297.0 226.0 Recent Labs Lab 09/27/20 0424 09/26/20 0557 09/25/20 0631 09/21/20 0441 NA 134* 134* 133* 132* K 3.5* 3.8 3.8 2.9* CL 101 101 102 102 BUN 13 16 16 5* CREATININE 0.78 1.03 0.78 0.56* CALCIUM 9.0 9.0 9.2 8.5 LABALBU -- -- -- 3.9 PHOS -- -- -- 2.8 Recent Labs Lab 09/21/20 0441 ALT 25 AST 97* ALKPHOS 115 BILITOT 1.4 Recent Labs Lab 09/21/20 0441 INR 0.94 * Ayaz Lund MD - 09/26/2020 4:01 PM EDT [facility] Medicine / [facility] Inpatient Progress Note 09/26/2020 Yonathan Fernandez 1975 [id number] Assessment/Plan: Yonathantaisha Fernandez is a 45 y.o. male with a history of CAD, alcohol abuse, and alcoholwithdrawal seizures who presented to [facility] 09/19/2020 with seizure-like activity witnessed by the patient's mother in the context of alcohol withdrawal. Patient was initially admitted to the CDU. 1. Acute Hypoxic Respiratory Failure: Worsened resp status in the evening of 09/25/20 likely due to aspiration. Increased oxygen requirements up to 15L NRB. Pulm consulted and transferred to Step Down[facility] 09/26/20. COVID negative on 09/26/20. Treatment as below 2. Sepsis: acquired during hospitalization. Likely due to aspiration pneumonia. Mildly elevated procal at 0.198. Lactate of 1.1 on 09/26/20. Blood and sputum cultures pending on 09/26/20. Management asbelow. 3. Aspiration Pneumonia: With thickened secretions noted on 09/25/20. ST consulted. Pulm consulted for AHRF. Zosyn initiated in the evening 09/25/20, continued until further culture data returns. 4. Alcohol withdrawal with seizure-like activity: pt was on Phenobarb taper, switched to Librium taper on 09/22/20 with intermittent med refusals. Continued CIWA protocols and supportive care. Continued MV/Folate. Transitioned Thiamine to IV TID 09/23/20 for 2-5 days. Mentation continues to wax and wane. Neuro consulted on 09/25/20. Continued seizure and aspiration precautions. Not as interactive/alert on 09/25/20 as compared to 09/24/20. 5. Acute Encephalopathy: Likely delirium from alcohol withdrawal. CT head 09/19/20 with no acute intracranial abnormality. EEG performed 09/23/20 - without acute pathology. Treatment for Wernicke's with Thiamine, initially improved and then waxed/waned mentation as of 09/24/20. MRI brain 09/25/20 limited by motion but not overt pathology noted. Ammonia 17 on 09/25/20. Neuro consulted but difficult interaction with pt due to delirium. D/W tele neuro, no additional recs on 09/26/20. 6. Severe hypokalemia: replace per electrolyte protocols. Continued new K-Dur 40meq daily. 7. Hypomagnesemia: Replace and monitor prn 8. Coronary artery disease: s/p PCI to pRCA and dRCA (04/2019). Continued home plavix, statin, BB, and ACEi. Pt has not followed up with a environmental assistant since 2018, referral as an outpatient upon discharge. 9. Hypertension: Continued home meds. BP contorlled 10. Hyperlipidemia: Continued home Lipitor. 11. Alcohol abuse and dependence: workforce services representative consulted for information regarding rehabilitation after discharge/community resources. 12. Thrombocytopenia: Secondary to alcohol abuse, continue to monitor. 13. Transaminitis: Secondary to alcohol abuse, US liver: diffuse fatty infiltration of the liver. 14. Code Status: Full 15. DVT Prophylaxis: Lovenox Current living situation: Home Expected Disposition: Home Estimated discharge date: Pending Updated mother via phone at bedside on 09/26/20. Discussed worsening resp status and additional neuro testing as above. She thanked me for the update. Additional update provided to pt's mother at 1600 regarding transfer to stepdown. She thanked me for the udpate.e Subjective: Overnight pt with worsened resp status requiring NRB. He is intermittently awake and responsive during my interaction with him this morning. He did not provide a ROS due to his encephalopathy. He wasoriented x3. He had an intermittent cough. Pt seen b/w [phone] Case d/w RN on the floor. Case d/w Dr. [facility] for evaluation of resp status. Physical Exam: Visit Vitals BP 129/75 (BP Location: Right arm, Patient Position: Lying) Pulse 109 Temp 99.9 F (37.7 C) (Axillary) Resp 30 Ht 5' 4 (1.626 m) Wt 63.9 kg (140 lb 14.4 oz) SpO2 97% BMI 24.19 kg/m General: NAD, laying in bed, intermittently interactive Head: NCAT Eyes: Normal conjunctiva and lids, PERRL, EOMI ENMT: Normal external appearance of ears and nose, Mucus membranes moist Neck: Supple and nontender Cardiovascular: Regular rate and rhythm, no murmur, no LE edema. Respiratory: coarse rhonchi in all lung bautista, slight tachypnea Gastrointestinal: Soft, non tender, non distended, normal bowel sounds Genitourinary: no suprapubic tenderness. no Griffin Musculoskeletal: No cyanosis of the digits. Moves all 4 extremities Skin: warm, dry Neuro: No overt facial droop or ptosis. 5/5 strength in all 4 extrems. Follows commands and wigglestoes and squeezes my hands Psych: lethargic but arouses and answers some questions with encouragement. AAOX3 Current Medications: albuterol 2.5mg-ipratropium 0.5mg/3ml 3 mL Nebulization Q4H (resp) [START ON 09/28/2020] albuterol 2.5mg-ipratropium 0.5mg/3ml 3 mL Nebulization Q4H MN amitriptyline 75 mg Oral Nightly atorvastatin 80 mg Oral Nightly Calcium carbonate-vitamin D 1 tablet Oral 3x Daily WC clopidogrel 75 mg Oral Daily enoxaparin 40 mg Subcutaneous Daily folic acid 1,000 mcg Oral Daily gabapentin 300 mg Oral Daily lisinopril 20 mg Oral Daily before lunch And hydroCHLOROthiazide 12.5 mg Oral Daily before lunch Metoprolol Tartrate 25 mg Oral 2x Daily nicotine 21 mg Transdermal Daily pantoprazole 40 mg Oral Daily piperacillin-tazobactam 3.375 g Intravenous 3 times per day potassium chloride SA 20 mEq Oral Once potassium chloride SA 40 mEq Oral Daily rifAXIMin 550 mg Oral 3 times per day thera m plus 1 tablet Oral Daily thiamine 250 mg Intravenous 3x Daily traZODone 50 mg Oral Nightly vitamin B-12 1,000 mcg Oral Daily Labs, Imaging and Studies reviewed: Recent Labs Lab 09/26/20 0557 09/25/20 0631 09/24/20 0559 HGB 12.1* 12.8 13.2 HCT 36.5* 37.9 38.9 PLT 297.0 226.0 182.0 Recent Labs Lab 09/26/20 0557 09/25/20 0631 09/24/20 0559 09/21/20 0441 09/19/20 2211 NA 134* 133* 132* 132* 131* K 3.8 3.8 3.5* 2.9* 3.0* CL 101 102 100 102 96 BUN 16 16 13 5* 9 CREATININE 1.03 0.78 0.73 0.56* 0.58* CALCIUM 9.0 9.2 9.0 8.5 9.4 LABALBU -- -- -- 3.9 4.7 PHOS -- -- -- 2.8 -- Recent Labs Lab 09/21/20 0441 09/19/20 2211 ALT 25 35 AST 97* 75* ALKPHOS 115 133* BILITOT 1.4 1.3 Recent Labs Lab 09/21/20440 INR 0.94 * Bethany Garcia MD - 09/25/2020 11:36 AM EDT Patient History: This is a 45 yo man here for evaluation of alcohol withdrawal and altered mental status Medications: librium Patient State: Awake Report: A routine EEG was performed using the standard 10-20 electrode placement system. The EEG shows posterior dominant rhythm between 12 Hz which is reactive to eye opening. There is muscle artifact throughout the study, and excessive beta activity throughout the study. Abnormal Discharges: None Impression: This is a normal EEG. Excessive beta likely secondary to benzodiazepine * Ayaz Lund MD - 09/25/2020 10:58 AM EDT [facility] Inpatient Progress Note 09/25/2020 Yonathan Fernandez 1975 [id number] Assessment/Plan: Yonathan Fernandez is a 45 y.o. male with a history of CAD, alcohol abuse, and alcoholwithdrawal seizures who presented to [facility] 09/19/2020 with seizure-like activity witnessed by the patient's mother in the context of alcohol withdrawal. Patient was initially admitted to the CDU. 1. Alcohol withdrawal with seizure-like activity: pt was on Phenobarb taper, switched to Librium taper on 09/22/20 with intermittent med refusals. Continued CIWA protocols and supportive care. Continued MV/Folate. Transitioned Thiamine to IV TID 09/23/20 for 2-5 days. Mentation continues to wax and wane. Neuro consulted on 09/25/20. Continued seizure and aspiration precautions. Not as interactive/alert on 09/25/20 as compared to 09/24/20. 2. Acute Encephalopathy: Likely delirium from alcohol withdrawal. CT head 09/19/20 with no acute intracranial abnormality. EEG performed 09/23/20 - read pending. Treatment for Wernicke's as above with initially improved mentation that has waxed/waned b/w 09/24-09/25/20. MRI brain pending from 09/22/20. Neuro consulted as above. Ammonia level pending 3. Increased Secretions: Will have ST eval patient for swallow dysfunction. 4. Severe hypokalemia: replace per electrolyte protocols. Continued new K-Dur 40meq daily. 5. Hypomagnesemia: Replace and monitor prn 6. Coronary artery disease: s/p PCI to pRCA and dRCA (04/2019). Continued home plavix, statin, BB, and ACEi. Pt has not followed up with a environmental assistant since 2018, referral as an outpatient upon discharge. 7. Hypertension: Continued home meds. BP contorlled 8. Hyperlipidemia: Continued home Lipitor. 9. Alcohol abuse and dependence: workforce services representative consulted for information regarding rehabilitationafter discharge/community resources. 10. Thrombocytopenia: Secondary to alcohol abuse, continue to monitor. 11. Transaminitis: Secondary to alcohol abuse, US liver: diffuse fatty infiltration of the liver. 12. Code Status: Full 13. DVT Prophylaxis: Lovenox Current living situation: Home Expected Disposition: Home Estimated discharge date: Pending improvement in mentation possibly 09/27/20 Attempted to call mother but reached VM at 11am Subjective: Overnight reportedly slept well but at times was hallucinating. Denied chest pain, pressure, SOB, N/V/F/C this AM. Pt is interactive but has a significant amount of drool on his shirt. He denied difficulty with swallowing. Pt seen b/w [id number] Case d/w RN on the floor. Physical Exam: Visit Vitals BP 108/72 (Patient Position: Sitting) Pulse 80 Temp 97.5 F (36.4 C) (forehead) Resp 20 Ht 5' 4 (1.626 m) Wt 63.9 kg (140 lb 14.4 oz) SpO2 94% BMI 24.19 kg/m General: NAD, laying in bed Head: NCAT Eyes: Normal conjunctiva and lids, PERRL, EOMI ENMT: Normal external appearance of ears and nose, Mucus membranes moist Neck: Supple and nontender Cardiovascular: Regular rate and rhythm, no murmur, no LE edema. Respiratory: Clear to auscultation bilaterally except for transmitted upper airway sounds, no increased work of breathing Gastrointestinal: Soft, non tender, non distended, normal bowel sounds Genitourinary: no suprapubic tenderness. no Griffin Musculoskeletal: No cyanosis of the digits. Moves all 4 extremities Skin: warm, dry Neuro: No overt facial droop or ptosis. 5/5 strength in all 4 extrems. Follows commands Psych: Mood slightly tired but arouses and answers questions appropriately. AAOX3 Current Medications: amitriptyline 75 mg Oral Nightly atorvastatin 80 mg Oral Nightly Calcium carbonate-vitamin D 1 tablet Oral 3x Daily WC chlordiazePOXIDE 25 mg Oral Q8H clopidogrel 75 mg Oral Daily enoxaparin 40 mg Subcutaneous Daily folic acid 1,000 mcg Oral Daily gabapentin 300 mg Oral Daily lisinopril 20 mg Oral Daily before lunch And hydroCHLOROthiazide 12.5 mg Oral Daily before lunch Metoprolol Tartrate 25 mg Oral 2x Daily nicotine 21 mg Transdermal Daily pantoprazole 40 mg Oral Daily KCl 40 mEq with lidocaine in D-5% 250 mL IVPB 20 mEq Intravenous Once potassium chloride SA 40 mEq Oral Daily rifAXIMin 550 mg Oral 3 times per day thera m plus 1 tablet Oral Daily thiamine 250 mg Intravenous 3x Daily traZODone 50 mg Oral Nightly vitamin B-12 1,000 mcg Oral Daily Labs, Imaging and Studies reviewed: Recent Labs Lab 09/25/20 0631 09/24/20 0559 09/23/20 07 HGB 12.8 13.2 13.7 HCT 37.9 38.9 40.1 PLT 226.0 182.0 154.0 Recent Labs Lab 09/25/20 0631 09/24/20 0559 09/23/20 0740 09/21/201 09/19/202210 NA 133* 132* 134* 132* 131* K 3.8 3.5* 4.0 2.9* 3.0* CL 102 100 102 102 96 BUN 16 13 10 5* 9 CREATININE 0.78 0.73 0.63* 0.56* 0.58* CALCIUM 9.2 9.0 9.3 8.5 9.4 LABALBU -- -- -- 3.9 4.7 PHOS -- -- -- 2.8 -- Recent Labs Lab 09/21/201 09/19/202210 ALT 25 35 AST 97* 75* ALKPHOS 115 133* BILITOT 1.4 1.3 Recent Labs Lab 09/21/20440 INR 0.94 * Ayaz Lund MD - 09/24/2020 10:34 AM EDT [facility] Medicine / [facility] Inpatient Progress Note 09/24/2020 Yonathan Fernandez 1975 [id number] Assessment/Plan: Yonathan Fernandez is a 45 y.o. male with a history of CAD, alcohol abuse, and alcoholwithdrawal seizures who presented to [facility] 09/19/2020 with seizure-like activity witnessed by the patient's mother in the context of alcohol withdrawal. Patient was initially admitted to the CDU. 1. Alcohol withdrawal with seizure-like activity: pt was on Phenobarb taper, switched to Librium taper on 09/22/20 with intermittent med refusals. Continued CIWA protocols and supportive care. Continued MV/Folate. Transitioned Thiamine to IV TID 09/23/20 for 2 days to see if mentation improves (treatment for Wernecke's). Seizure and aspiration precautions. SW consulted. Appears to have improved moderately on 09/24/20. 2. Acute Encephalopathy: Likely delirium from alcohol withdrawal. CT head 09/19/20 with no acute intracranial abnormality. EEG performed 09/23/20 - read pending. Treatment for Wernicke's as above with improved mentation. MRI brain pending from 09/22/20 3. Severe hypokalemia: replace per electrolyte protocols. Continued new K-Dur 40meq daily. Improvedto 4 on 09/23/20 but down to 3.5 on 09/24/20. Monitor and replace. 4. Hypomagnesemia: Replace and monitor as needed 5. Coronary artery disease: s/p PCI to pRCA and dRCA (04/2019). Continued home plavix, statin, BB, and ACEi. Pt has not followed up with a environmental assistant since 2019, referral as an outpatient upon discharge. 6. Hypertension: Continued home meds. BP contorlled 7. Hyperlipidemia: Continued home Lipitor. 8. Alcohol abuse and dependence: workforce services representative consulted for information regarding rehabilitationafter discharge/community resources. 9. Thrombocytopenia: Secondary to alcohol abuse, continue to monitor. 10. Transaminitis: Secondary to alcohol abuse, US liver: diffuse fatty infiltration of the liver. 11. Code Status: Full 12. DVT Prophylaxis: Lovenox Current living situation: Home Expected Disposition: Home Estimated discharge date: Pending improvement in mentation hopefully 09/25/20 Subjective: JA overnight. More appropriate and interactive this morning. AAOX3 and sitting up eating breakfast. Only complaint is his chronic back pain. Denied chest pain, pressure, SOB, N/V/F/C Pt seen b/w [phone] Case d/w RN on the floor. Physical Exam: Visit Vitals BP 120/70 Pulse 82 Temp 98.9 F (37.2 C) (Oral) Resp 18 Ht 5' 4 (1.626 m) Wt 63.9 kg (140 lb 14.4 oz) SpO2 93% BMI 24.19 kg/m General: NAD, sitting up in bed Head: NCAT Eyes: Normal conjunctiva and lids, PERRL, EOMI ENMT: Normal external appearance of ears and nose, Mucus membranes moist Neck: Supple and nontender Cardiovascular: Regular rate and rhythm, no murmur, no LE edema. Respiratory: Clear to auscultation bilaterally, no increased work of breathing Gastrointestinal: Soft, non tender, non distended, normal bowel sounds Genitourinary: no suprapubic tenderness. no Griffin Musculoskeletal: No cyanosis of the digits. Moves all 4 extremities Skin: warm, dry Neuro: No overt facial droop or ptosis. 5/5 strength in all 4 extrems Psych: Mood appropriate. AAOX3 Current Medications: amitriptyline 75 mg Oral Nightly atorvastatin 80 mg Oral Nightly Calcium carbonate-vitamin D 1 tablet Oral 3x Daily WC chlordiazePOXIDE 50 mg Oral Q8H Followed by chlordiazePOXIDE 25 mg Oral Q8H clopidogrel 75 mg Oral Daily enoxaparin 40 mg Subcutaneous Daily folic acid 1,000 mcg Oral Daily gabapentin 300 mg Oral Daily lisinopril 20 mg Oral Daily before lunch And hydroCHLOROthiazide 12.5 mg Oral Daily before lunch Metoprolol Tartrate 25 mg Oral 2x Daily nicotine 21 mg Transdermal Daily pantoprazole 40 mg Oral Daily potassium chloride SA 40 mEq Oral Daily rifAXIMin 550 mg Oral 3 times per day thera m plus 1 tablet Oral Daily thiamine 250 mg Intravenous 3x Daily traZODone 50 mg Oral Nightly vitamin B-12 1,000 mcg Oral Daily Labs, Imaging and Studies reviewed: Recent Labs Lab 09/24/20 0559 09/23/20 0740 09/22/20 0604 HGB 13.2 13.7 13.5 HCT 38.9 40.1 40.0 PLT 182.0 154.0 111.0* Recent Labs Lab 09/24/20 0559 09/23/20 0740 09/22/20 0605 09/21/20 0441 09/19/20 2211 NA 132* 134* 133* 132* 131* K 3.5* 4.0 4.1 2.9* 3.0* CL 100 102 105 102 96 BUN 13 10 6* 5* 9 CREATININE 0.73 0.63* 0.60* 0.56* 0.58* CALCIUM 9.0 9.3 9.2 8.5 9.4 LABALBU -- -- -- 3.9 4.7 PHOS -- -- -- 2.8 -- Recent Labs Lab 09/21/20 0441 09/19/20 221 ALT 25 35 AST 97* 75* ALKPHOS 115 133* BILITOT 1.4 1.3 Recent Labs Lab 09/21/20440 INR 0.94 * Ayaz Lund MD - 09/23/2020 10:23 AM EDT [facility] Medicine / [facility] Inpatient Progress Note 09/23/2020 Yonathan Fernandez 1975 [id number] Assessment/Plan: Yonathan Fernandez is a 45 y.o. male with a history of CAD, alcohol abuse, and alcoholwithdrawal seizures who presented to [facility] 09/19/2020 with seizure-like activity witnessed by the patient's mother in the context of alcohol withdrawal. Patient was initially admitted to the CDU. 1. Alcohol withdrawal with seizure-like activity: pt was on Phenobarbital taper, switched to Librium taper on 09/22/20 with intermittent med refusals. Continued CIWA protocols and supportive care. Continued MV/Folate. Transitioned Thiamine to IV TID for 2 days to see if mentation improves (treatment for Wernecke's). Seizure and aspiration precautions. SW consulted 2. Acute Encephalopathy: Likely delirium from alcohol withdrawal. CT head 09/19/20 with no acute intracranial abnormality. EEG pending from 09/21/20. Treatment for Wernicke's as above. MRI brain pending from 09/22/20 3. Severe hypokalemia: replace per electrolyte protocols. Continued new K-Dur 40meq daily. Improvedto 4 on 09/23/20. 4. Hypomagnesemia: Replace and monitor. 5. Coronary artery disease: s/p PCI to pRCA and dRCA (04/2019). Continued home plavix, statin, BB, and ACEi. Pt has not followed up with a environmental assistant since 2018, referral as an outpatient upon discharge. 6. Hypertension: Continued home meds. BP contorlled 7. Hyperlipidemia: Continued home Lipitor. 8. Alcohol abuse and dependence: workforce services representative consulted for information regarding rehabilitationafter discharge/community resources. 9. Thrombocytopenia: Secondary to alcohol abuse, continue to monitor. 10. Transaminitis: Secondary to alcohol abuse, US liver: diffuse fatty infiltration of the liver. 11. Code Status: Full 12. DVT Prophylaxis: Lovenox Current living situation: Home Expected Disposition: Home Estimated discharge date: Pending improvement in mentation hopefully 09/25/20 Subjective: JA overnight. Per RN pt is intermittently refusing medications. He is willing to take his medications after I spoke with him. He reported feeling confused but knew he was at the hospital. Unable to provide full ROS due to encephalopathy Pt seen b/w [phone]. Case d/w RN on the floor. Physical Exam: Visit Vitals BP 134/79 (Patient Position: Lying) Pulse 100 Temp 99.5 F (37.5 C) (forehead) Resp 20 Ht 5' 4 (1.626 m) Wt 63.9 kg (140 lb 14.4 oz) SpO2 96% BMI 24.19 kg/m General: NAD, laying in bed Head: NCAT Eyes: Normal conjunctiva and lids, PERRL, EOMI ENMT: Normal external appearance of ears and nose, Mucus membranes dry Neck: Supple and nontender Cardiovascular: Regular rate and rhythm, no murmur, no LE edema. Respiratory: Clear to auscultation bilaterally, no increased work of breathing Gastrointestinal: Soft, non tender, non distended, normal bowel sounds Genitourinary: no suprapubic tenderness. no Griffin Musculoskeletal: No cyanosis of the digits. Moves all 4 extremities Skin: warm, dry Neuro: CN II-XII Grossly intact. Intact sensation to light touch of all 4 extrems. Minimal tremor noted. 4-5/5 strength in all 4 extrems Psych: Mood anxious. AAOX1-2 (knows he is in the hospital, forgot the name, thought the year was 2021) Current Medications: amitriptyline 75 mg Oral Nightly atorvastatin 80 mg Oral Nightly Calcium carbonate-vitamin D 1 tablet Oral 3x Daily WC chlordiazePOXIDE 50 mg Oral Q6H Followed by chlordiazePOXIDE 50 mg Oral Q8H Followed by [START ON 09/24/2020] chlordiazePOXIDE 25 mg Oral Q8H clopidogrel 75 mg Oral Daily enoxaparin 40 mg Subcutaneous Daily folic acid 1,000 mcg Oral Daily gabapentin 300 mg Oral Daily lisinopril 20 mg Oral Daily before lunch And hydroCHLOROthiazide 12.5 mg Oral Daily before lunch Metoprolol Tartrate 25 mg Oral 2x Daily nicotine 21 mg Transdermal Daily pantoprazole 40 mg Oral Daily potassium chloride SA 40 mEq Oral Daily rifAXIMin 550 mg Oral 3 times per day thera m plus 1 tablet Oral Daily thiamine 250 mg Intravenous 3x Daily traZODone 50 mg Oral Nightly vitamin B-12 1,000 mcg Oral Daily Labs, Imaging and Studies reviewed: Recent Labs Lab 09/23/20 0740 09/22/20 0604 09/21/20440 HGB 13.7 13.5 12.6* HCT 40.1 40.0 37.3* PLT 154.0 111.0* 94.0* Recent Labs Lab 09/23/20 0740 09/22/20 0605 09/21/20 04409/19/202210 NA 134* 133* 132* 131* K 4.0 4.1 2.9* 3.0* CL 102 105 102 96 BUN 10 6* 5* 9 CREATININE 0.63* 0.60* 0.56* 0.58* CALCIUM 9.3 9.2 8.5 9.4 LABALBU -- -- 3.9 4.7 PHOS -- -- 2.8 -- Recent Labs Lab 09/21/20 0441 09/19/201 ALT 25 35 AST 97* 75* ALKPHOS 115 133* BILITOT 1.4 1.3 Recent Labs Lab 09/21/20440 INR 0.94 * Samreen Jacobson MD - 09/22/2020 3:52 PM EDT [facility] Medicine / [facility] Inpatient Progress Note 09/22/2020 Yonathan Fernandez [id number] Assessment/Plan: Yonathan Fernandez is a 45 y.o. male with a history of CAD, alcohol abuse, and alcoholwithdrawal seizures who presented to [facility] 09/19/2020 with seizure-like activity witnessed by the patient's mother in the context of alcohol withdrawal. Patient was initially admitted to the CDU. 1. Alcohol withdrawal with seizure-like activity: pt was on Phenobarbital taper, switched to Librium taper on 09/22/20, continue CIWA protocols and supportive care, folic acid, thiamine, seizure and aspiration precautions, rn social work consulted for alcohol audit. 2. Severe hypokalemia: replace per electrolyte protocols, started on K-Dur 40meq daily. 3. Hypomagnesemia: Replace and monitor. 4. Coronary artery disease: s/p PCI to pRCA and dRCA (04/2019). Continued home DAPT, statin, BB, and ACEi. Pt has not followed up with a environmental assistant since 2019, referral as an outpatient upon discharge. 5. Hypertension: Continue home meds 6. Hyperlipidemia: Continue Lipitor. 7. Alcohol abuse and dependence: workforce services representative consulted for information regarding rehabilitationafter discharge/community resources. 8. Thrombocytopenia: Secondary to alcohol abuse, continue to monitor. 9. Transaminitis: Secondary to alcohol abuse, US liver: diffuse fatty infiltration of the liver. 10. Code Status: Full 11. DVT Prophylaxis: Pharmacologic Current living situation: Home Expected Disposition: Home Estimated discharge date: 09/23/2020 or later Subjective: Patient is limited historian, unable to obtain ROS Physical Exam: Visit Vitals BP 141/88 (Patient Position: Sitting) Pulse 75 Temp 98.2 F (36.8 C) (forehead) Resp 18 Ht 5' 4 (1.626 m) Wt 63.9 kg (140 lb 14.4 oz) SpO2 95% BMI 24.19 kg/m General: Confused Eyes: EOMI ENT: neck supple Cardiovascular: Regular rate. Respiratory: Clear to auscultation Gastrointestinal: Soft, non tender Genitourinary: no suprapubic tenderness Musculoskeletal: No edema. Skin: warm, dry Neuro: Alert, tremor noted Psych: Mood appropriate. Current Medications: amitriptyline 75 mg Oral Nightly atorvastatin 80 mg Oral Nightly Calcium carbonate-vitamin D 1 tablet Oral 3x Daily WC clopidogrel 75 mg Oral Daily enoxaparin 40 mg Subcutaneous Daily folic acid 1,000 mcg Oral Daily gabapentin 300 mg Oral Daily lisinopril 20 mg Oral Daily before lunch And hydroCHLOROthiazide 12.5 mg Oral Daily before lunch Metoprolol Tartrate 25 mg Oral 2x Daily nicotine 21 mg Transdermal Daily pantoprazole 40 mg Oral Daily PHENobarbital 30 mg Oral Q6H potassium chloride SA 40 mEq Oral Daily rifAXIMin 550 mg Oral 3 times per day thera m plus 1 tablet Oral Daily Thiamine Mononitrate 100 mg Oral Daily vitamin B-12 1,000 mcg Oral Daily Labs, Imaging and Studies reviewed: Recent Labs Lab 09/22/20 0604 09/21/20 0441 09/20/20 06 HGB 13.5 12.6* 11.8* HCT 40.0 37.3* 34.5* PLT 111.0* 94.0* 98.0* Recent Labs Lab 09/22/20 0605 09/21/20 0441 09/20/20 0601 09/19/20 2211 NA 133* 132* 135 131* K 4.1 2.9* 2.9* 3.0* CL 105 102 105 96 BUN 6* 5* 6* 9 CREATININE 0.60* 0.56* 0.46* 0.58* CALCIUM 9.2 8.5 8.2* 9.4 LABALBU -- 3.9 -- 4.7 PHOS -- 2.8 -- -- Recent Labs Lab 09/21/20 0441 09/19/20 2211 ALT 25 35 AST 97* 75* ALKPHOS 115 133* BILITOT 1.4 1.3 Recent Labs Lab 09/21/20440 INR 0.94 * Samreen Jacobson MD - 09/21/2020 4:08 PM EDT [facility] Medicine / [facility] Inpatient Progress Note 09/21/2020 Yonathan Fernandez [id number] Assessment/Plan: Yonathan Fernandez is a 45 y.o. male with a history of CAD, alcohol abuse, and alcoholwithdrawal seizures who presented to [facility] 09/19/2020 with seizure-like activity witnessed by the patient's mother in the context of alcohol withdrawal. Patient was initially admitted to the CDU. 1. Alcohol withdrawal with seizure-like activity: Phenobarbital taper, continue CIWA protocols and supportive care, folic acid, thiamine, seizure and aspiration precautions. EEG ordered. rn social work consulted for alcohol audit. 2. Severe hypokalemia: replace per electrolyte protocols, started on K-Dur 40meq twice daily. 3. Hypomagnesemia: Replace and monitor. 4. Coronary artery disease: s/p PCI to pRCA and dRCA (04/2019). Continued home DAPT, statin, BB, and ACEi. Pt has not followed up with a environmental assistant since 2019, referral as an outpatient upon discharge. 5. Hypertension: Continue home meds 6. Hyperlipidemia: Continue Lipitor. 7. Alcohol abuse and dependence: workforce services representative consulted for information regarding rehabilitationafter discharge/community resources. 8. Transaminitis: Secondary to alcohol abuse, US liver ordered 9. Code Status: Full 10. DVT Prophylaxis: Pharmacologic Current living situation: Home Expected Disposition: Home Estimated discharge date: 09/23/2020 Subjective: Patient is limited historian, unable to obtain ROS Physical Exam: Visit Vitals BP (!) 146/103 (Patient Position: Sitting) Comment: rn notified Pulse 96 Temp 97.3 F (36.3 C) (forehead) Resp 20 Ht 5' 4 (1.626 m) Wt 63.9 kg (140 lb 14.4 oz) SpO2 93% BMI 24.19 kg/m General: Confused Eyes: EOMI ENT: neck supple Cardiovascular: Regular rate. Respiratory: Clear to auscultation Gastrointestinal: Soft, non tender Genitourinary: no suprapubic tenderness Musculoskeletal: No edema. Skin: warm, dry Neuro: Alert, tremor noted Psych: Mood appropriate. Current Medications: amitriptyline 75 mg Oral Nightly atorvastatin 80 mg Oral Nightly Calcium carbonate-vitamin D 1 tablet Oral 3x Daily WC clopidogrel 75 mg Oral Daily enoxaparin 40 mg Subcutaneous Daily folic acid 1,000 mcg Oral Daily gabapentin 300 mg Oral Daily lisinopril 20 mg Oral Daily before lunch And hydroCHLOROthiazide 12.5 mg Oral Daily before lunch Metoprolol Tartrate 25 mg Oral 2x Daily nicotine 21 mg Transdermal Daily pantoprazole 40 mg Oral Daily [START ON 09/22/2020] PHENobarbital 30 mg Oral Q6H PHENobarbital 60 mg Oral Q6H KCl 40 mEq with lidocaine in D-5% 250 mL IVPB 40 mEq Intravenous Q4H potassium chloride SA 40 mEq Oral 2x Daily with meals rifAXIMin 550 mg Oral 3 times per day thera m plus 1 tablet Oral Daily Thiamine Mononitrate 100 mg Oral Daily vitamin B-12 1,000 mcg Oral Daily Labs, Imaging and Studies reviewed: Recent Labs Lab 09/21/2044009/20/20 0609/19/202210 HGB 12.6* 11.8* 14.4 HCT 37.3* 34.5* 41.4 PLT 94.0* 98.0* 111.0* Recent Labs Lab 09/21/2044009/20/20 0609/19/202210 NA 132* 135 131* K 2.9* 2.9* 3.0* CL 102 105 96 BUN 5* 6* 9 CREATININE 0.56* 0.46* 0.58* CALCIUM 8.5 8.2* 9.4 LABALBU 3.9 -- 4.7 PHOS 2.8 -- -- Recent Labs Lab 09/21/2044009/19/202210 ALT 25 35 AST 97* 75* ALKPHOS 115 133* BILITOT 1.4 1.3 Recent Labs Lab 09/21/20440 INR 0.94 documented in this [facility]04-30-2021 Consult note* Duarte Infante DO - 09/26/2020 11:44 AM EDT Associated Order(s): INPATIENT CONSULT TO CRITICAL CARE/PULMONARY Pulmonary Consult Date of Service: 09/26/2020 Reason for Consult: Acute hypoxemic respiratory failure HPI: The patient is a 45-year-old male who initially presented to the emergency department on September 19 with a syncopal event and questionable seizure-like activity. The patient has a longstanding history of alcohol dependency with withdrawal seizures. The patient was initially monitored in the CDU before being transferred to the inpatient setting. The patient's medical history is also significant for coronary artery disease status post PCI and chronic nicotine dependency. The patient's hospital course has included treatment initially with a phenobarbital taper, which was then transitioned to Librium on September 22. The patient was maintained on an alcohol withdrawal protocol with thiamine and folate repletion as well. The patient has also been evaluated by neurology with EEG and CT head completed. Early this morning the patient apparently had a witnessed aspiration event. He was evaluated by speech therapy prior to this who recommended n.p.o. Following the patient's aspiration event as respiratory status declined. He also began to spike fevers overnight. The patient was subsequently placed on Zosyn. Recent arterial blood gas revealed a pH of 7.4, PCO2 of 32 andPO2 of 83. Over the last 24 hours, the patient has gone from supplemental oxygen via nasal cannula to 15 L/min nonrebreather. He has a cough which is productive of purulent appearing sputum. Past Medical History: Diagnosis Date Alcohol abuse Hyperlipidemia Hypertension Myocardial infarct (HCC) Past Surgical History: Procedure Laterality Date arm surgery CORONARY ANGIOPLASTY WITH STENT PLACEMENT CORONARY ANGIOPLASTY WITH STENT PLACEMENT HERNIA REPAIR TONSILLECTOMY VASECTOMY Medications Prior to Admission Medication Sig Dispense Refill Last Dose albuterol 108 (90 Base) MCG/ACT inhaler INHALE 2 PUFFS INTO THE LUNGS EVERY 4 HOURS NEEDED FOR WHEEZING AND/OR SHORTNESS OF BREATH. 18 g 4 amitriptyline (ELAVIL) 75 MG tablet TAKE 1 TABLET BY MOUTH NIGHTLY. 30 tablet 6 09/18/2020 atorvastatin (LIPITOR) 80 MG tablet TAKE 1 TABLET BY MOUTH NIGHTLY. 30 tablet 11 09/18/2020 Blood Pressure Monitoring (BLOOD PRESSURE CUFF) MISC Use PRN 1 each 0 09/19/2020 clopidogrel (PLAVIX) 75 MG tablet TAKE 1 TABLET BY MOUTH DAILY. 30 tablet 2 09/19/2020 folic acid (FOLVITE) 1 MG tablet TAKE 1 TABLET BY MOUTH DAILY. 30 tablet 3 09/19/2020 gabapentin (NEURONTIN) 300 MG capsule TAKE 1 CAPSULE BY MOUTH 3 TIMES DAILY. (Patient taking differently: Take 300 mg by mouth daily.) 90 capsule 2 Taking Differently hydrOXYzine (ATARAX) 50 MG tablet Take 1 tablet by mouth every 6 hours as needed for Anxiety (for MILD anxiety- patient reported anxiety 1-4). 30 tablet 0 lisinopril-hydrochlorothiazide (PRINZIDE,ZESTORETIC) 20-12.5 MG per tablet TAKE 2 TABLETS BY MOUTH DAILY. 60 tablet 6 09/19/2020 Metoprolol Tartrate (LOPRESSOR) 25 MG tablet TAKE 1 TABLET BY MOUTH TWO TIMES A DAY. 60 tablet 2 pantoprazole (PROTONIX) 40 MG tablet TAKE 1 TABLET BY MOUTH DAILY. 30 tablet 2 09/19/2020 sildenafil (VIAGRA) 100 MG tablet Take 1 tablet by mouth daily as needed. 30 tablet 6 Past Month Thiamine HCl (B-1) 100 MG TABS TAKE 1 TABLET BY MOUTH DAILY. 30 tablet 3 09/19/2020 vitamin B-12 (CYANOCOBALAMIN) 1000 MCG tablet TAKE ONE TABLET BY MOUTH ONCE DAILY 30 tablet 3 09/19/2020 No Known Allergies Social History Tobacco Use Smoking status: Current Every Day Smoker Packs/day: 1.00 Years: 20.00 Pack years: 20.00 Types: Cigarettes, Cigars Smokeless tobacco: Never Used Substance Use Topics Alcohol use: Yes Comment: 12 pack on Fridays Family History Problem Relation Age of Onset Diabetes Maternal Grandfather Vitals: Vital signs in last 24 hours: Temp: [98 F (36.7 C)-101.6 F (38.7 C)] 98.2 F (36.8 C) Heart Rate: [80-113] 108 Resp: [20-30] 28 BP: (100-149)/(61-80) 149/79 Physical Exam: General appearance: Arousable but somewhat somnolent. Head: Normocephalic, without obvious abnormality, atraumatic Neck: supple, symmetrical, trachea midline Lungs: diminished breath sounds bilaterally and rhonchi bilaterally. +Tachypnea Chest wall: no tenderness Heart: regular rate and rhythm Abdomen: soft, non-tender; bowel sounds normal; no masses, no hepatosplenomegaly Extremities: no cyanosis, clubbing, or edema Neurologic: No focal neurological deficits. Review of Systems: 10 systems were reviewed and negative, except as noted above. Medications: Scheduled Meds: albuterol 2.5mg-ipratropium 0.5mg/3ml 3 mL Nebulization Q4H (resp) [START ON 09/28/2020] albuterol 2.5mg-ipratropium 0.5mg/3ml 3 mL Nebulization Q4H MN amitriptyline 75 mg Oral Nightly atorvastatin 80 mg Oral Nightly Calcium carbonate-vitamin D 1 tablet Oral 3x Daily WC clopidogrel 75 mg Oral Daily enoxaparin 40 mg Subcutaneous Daily folic acid 1,000 mcg Oral Daily gabapentin 300 mg Oral Daily lisinopril 20 mg Oral Daily before lunch And hydroCHLOROthiazide 12.5 mg Oral Daily before lunch Metoprolol Tartrate 25 mg Oral 2x Daily nicotine 21 mg Transdermal Daily pantoprazole 40 mg Oral Daily piperacillin-tazobactam 3.375 g Intravenous 3 times per day potassium chloride SA 20 mEq Oral Once potassium chloride SA 40 mEq Oral Daily rifAXIMin 550 mg Oral 3 times per day thera m plus 1 tablet Oral Daily thiamine 250 mg Intravenous 3x Daily traZODone 50 mg Oral Nightly vitamin B-12 1,000 mcg Oral Daily Continuous Infusions: lactated ringers 150 mL/hr at 09/26/20 1019 PRN Meds: acetaminophen Albuterol Albuterol aluminum-magnesium hydroxide bisacodyl calcium carbonate clonNIDine dicyclomine For electrolyte abnormalities subsequent to initial labs haloperidol lactate hydrOXYzine ibuprofen Lidocaine Viscous HCl loperamide LORazepam Or LORazepam Or LORazepam LORazepam methocarbamol nicotine polacrilex Ondansetron Or ondansetron hcl polyethylene glycol 3350 Senna traZODone Intake/Output last 3 shifts: No intake/output data recorded. Intake/Output this shift: No intake/output data recorded. Vent settings for last 24 hours: Hemodynamic parameters for last 24 hours: Labs: Lab Results Component Value Date WHITEBLOODCE 7.5 09/26/2020 HGB 12.1 (L) 09/26/2020 HCT 36.5 (L) 09/26/2020 MCV 112.7 (H) 09/26/2020 PLT 297.0 09/26/2020 Recent Labs 09/26/20 0557 NA 134* K 3.8 CO2 21* BUN 16 CREATININE 1.03 GFR >60 CALCIUM 9.0 Lab Results Component Value Date ALT 25 09/21/2020 AST 97 (H) 09/21/2020 ALKPHOS 115 09/21/2020 BILITOT 1.4 09/21/2020 Last Lactate Resulted Date/Time Component Value Reference Range Lab Status 09/26/20 1055 LACTATE 1.03 0.50 - 1.60 mmol/L Final result Lab Results Component Value Date INR 0.94 09/21/2020 INR 1.03 05/14/2019 INR 0.95 12/17/2018 Lab Results Component Value Date/Time PHART 7.425 09/26/2020 10:55 AM UKO4XTM 31.9 (L) 09/26/2020 10:55 AM PO2ART 82.9 09/26/2020 10:55 AM O2HB 95.1 09/26/2020 10:55 AM HEMATOCRITAB 42 09/26/2020 10:55 AM METHB 0.5 09/26/2020 10:55 AM [id number] 20.5 (L) 09/26/2020 10:55 AM SODIUMABG 131.6 (L) 09/26/2020 10:55 AM KABG 3.78 09/26/2020 10:55 AM BEART -2.9 (L) 09/26/2020 10:55 AM CAION 1.13 (L) 09/26/2020 10:55 AM GLUCOSEBLD 99 09/26/2020 10:55 AM Lab Results Component Value Date/Time NTPROBNP 172 09/21/2020 04:41 AM Imaging: Right lower lobe airspace opacity Assessment/Plan: 1. Acute hypoxemic respiratory failure Most likely secondary to acute aspiration event in the setting of alcohol withdrawal. The patient'soxygen requirement has increased over the course of the last 24 hours. His secretions are thick andtenacious in appearance. I agree with continuing broad-spectrum antimicrobial coverage for now. Recommend sending sputum for culture. Initiate and maintain aspiration precautions. Patient should remain n.p.o. for now. Continue bronchodilator therapy as ordered. Given the patient's high oxygen requirement, recommend transfer to stepdown unit. In addition, I would plan to avoid over sedating medications. Consider discontinuation of trazodone. Duarte Infante DO Pulmonary and Critical Care THIS DOCUMENT HAS BEEN CREATED USING VOICE RECOGNITION SOFTWARE AND MAY CONTAIN GRAMMATICAL, SYNTAX, AND TYPOGRAPHICAL ERRORS. documented in this [facility]04-24-2021 History and physical note* Arjun Leon NP - 09/20/2020 8:47 AM EDT [facility] Medicine / [facility] History and Physical 09/20/20 Yonathan Fernandez [id number] Assessment/Plan: Yonathan Fernandez is a 45 y.o. male with a history of coronary artery disease, hypertension, hyperlipidemia, hepatic encephalopathy, alcohol abuse, and alcohol withdrawal seizures who presented to [facility] 09/19/2020 with seizure-like activity witnessed by the patient's mother in the context of alcohol withdrawal. Patient was initially admitted to the CDU before being [facility] relating to the patient's alcohol withdrawal 1. Alcohol withdrawal with seizure-like activity: Longstanding history of alcohol abuse with witnessed withdrawal seizures and withdrawal related delusions on previous admissions. Maintain seizure precautions. Continue CIWA protocols and supportive care. Daily folic acid, thiamine, and multivitamin. workforce services representative consulted for alcohol audit. 2. Hypokalemia: We will replace per electrolyte protocols and repeat potassium level in the morning 3. Hypomagnesemia: 2 g of mag sulfate to be administered. Repeat mag level in the morning 4. Coronary artery disease: s/p PCI to pRCA and dRCA (04/2019). Continued home DAPT, statin, BB, and ACEi. Previously followed with Dr. Dubon following his left heart catheterization and PCI. However, has not followed up with a environmental assistant since 2018. Would benefit from a referral after discharge for reestablishment of care 5. Hypertension: Continue home meds 6. Hyperlipidemia: Continue high intensity statin therapy 7. Alcohol abuse and dependence: workforce services representative consulted for information regarding rehabilitationafter discharge/community resources 8. Hepatic encephalopathy: Hepatic panel stable. Continue rifaximin. Check ammonia level. MRI of the brain. Alcohol cessation recommended. Follow-up with hepatology after discharge. 9. Code Status: Full 10. DVT Prophylaxis: Pharmacologic Current living situation: Home Expected Disposition: Home Estimated discharge date: 09/23/2020 Chief Complaint: Alcohol withdrawal History of Present Illness: Yonathan Fernandez is a 45 y.o. male with a history of coronary artery disease, hypertension, hyperlipidemia, hepatic encephalopathy, alcohol abuse, and alcohol withdrawal seizures who presented to [facility] 09/19/2020 with seizure-like activity witnessed by the patient's mother in the context of alcohol withdrawal. The patient had stated that he had gone 48 hours without drinking alcohol and believes it was related to withdrawal. He does not have recollection of the events but stated that the seizure activity was witnessed by his mother. Patient was initially admitted to the CDU before being transferred to the inpatient setting. [facility] was asked to take over management relating to the patient's alcohol withdrawal ROS: 10 systems were reviewed and negative, except as noted above Past Medical, Surgical, Social, Family History: Past Medical History: Diagnosis Date Alcohol abuse Hyperlipidemia Hypertension Myocardial infarct (HCC) Past Surgical History: Procedure Laterality Date arm surgery CORONARY ANGIOPLASTY WITH STENT PLACEMENT CORONARY ANGIOPLASTY WITH STENT PLACEMENT HERNIA REPAIR TONSILLECTOMY VASECTOMY Social History Socioeconomic History Marital status: Single Spouse name: Not on file Number of children: Not on file Years of education: Not on file Highest education level: Not on file Occupational History Not on file Tobacco Use Smoking status: Current Every Day Smoker Packs/day: 1.00 Years: 20.00 Pack years: 20.00 Types: Cigarettes, Cigars Smokeless tobacco: Never Used Substance and Sexual Activity Alcohol use: Yes Comment: 12 pack on Fridays Drug use: No Sexual activity: Yes Partners: Female control/protection: Surgical Other Topics Concern Not on file Social History Narrative Not on file Social Determinants of Health Financial Resource Strain: Difficulty of Paying Living Expenses: Not on file Food Insecurity: Worried About Running Out of Food in the Last Year: Not on file Ran Out of Food in the Last Year: Not on file Transportation Needs: Lack of Transportation (Medical): Not on file Lack of Transportation (Non-Medical): Not on file Physical Activity: Days of Exercise per Week: Not on file Minutes of Exercise per Session: Not on file Stress: Feeling of Stress : Not on file Social Connections: Frequency of Communication with Friends and Family: Not on file Frequency of Social Gatherings with Friends and Family: Not on file Attends Evangelical Services: Not on file Active Member of Clubs or Organizations: Not on file Attends Club or Organization Meetings: Not on file Marital Status: Not on file Intimate Partner Violence: Fear of Current or Ex-Partner: Not on file Emotionally Abused: Not on file Physically Abused: Not on file Sexually Abused: Not on file Family History Problem Relation Age of Onset Diabetes Maternal Grandfather Home Medications: No current facility-administered medications on file prior to encounter. Current Outpatient Medications on File Prior to Encounter Medication Sig Dispense Refill albuterol 108 (90 Base) MCG/ACT inhaler INHALE 2 PUFFS INTO THE LUNGS EVERY 4 HOURS NEEDED FOR WHEEZING AND/OR SHORTNESS OF BREATH. 18 g 4 amitriptyline (ELAVIL) 75 MG tablet TAKE 1 TABLET BY MOUTH NIGHTLY. 30 tablet 6 atorvastatin (LIPITOR) 80 MG tablet TAKE 1 TABLET BY MOUTH NIGHTLY. 30 tablet 11 Blood Pressure Monitoring (BLOOD PRESSURE CUFF) MISC Use PRN 1 each 0 clopidogrel (PLAVIX) 75 MG tablet TAKE 1 TABLET BY MOUTH DAILY. 30 tablet 2 folic acid (FOLVITE) 1 MG tablet TAKE 1 TABLET BY MOUTH DAILY. 30 tablet 3 gabapentin (NEURONTIN) 300 MG capsule TAKE 1 CAPSULE BY MOUTH 3 TIMES DAILY. (Patient taking differently: Take 300 mg by mouth daily.) 90 capsule 2 hydrOXYzine (ATARAX) 50 MG tablet Take 1 tablet by mouth every 6 hours as needed for Anxiety (for MILD anxiety- patient reported anxiety 1-4). 30 tablet 0 lisinopril-hydrochlorothiazide (PRINZIDE,ZESTORETIC) 20-12.5 MG per tablet TAKE 2 TABLETS BY MOUTH DAILY. 60 tablet 6 Metoprolol Tartrate (LOPRESSOR) 25 MG tablet TAKE 1 TABLET BY MOUTH TWO TIMES A DAY. 60 tablet 2 pantoprazole (PROTONIX) 40 MG tablet TAKE 1 TABLET BY MOUTH DAILY. 30 tablet 2 sildenafil (VIAGRA) 100 MG tablet Take 1 tablet by mouth daily as needed. 30 tablet 6 Thiamine HCl (B-1) 100 MG TABS TAKE 1 TABLET BY MOUTH DAILY. 30 tablet 3 vitamin B-12 (CYANOCOBALAMIN) 1000 MCG tablet TAKE ONE TABLET BY MOUTH ONCE DAILY 30 tablet 3 No Known Allergies Physical Exam: Visit Vitals BP 130/73 Pulse 81 Temp 98.8 F (37.1 C) (forehead) Resp 18 Ht 5' 4 (1.626 m) Wt 63.9 kg (140 lb 14.4 oz) SpO2 96% BMI 24.19 kg/m General: NAD Eyes: EOMI ENT: neck supple Cardiovascular: Regular rate. Respiratory: Clear to auscultation Gastrointestinal: Soft, non tender Genitourinary: no suprapubic tenderness Musculoskeletal: No edema Skin: warm, dry Neuro: Drowsy but follows commands. Frequently falls asleep during evaluation but aware of situation and setting. Psych: Mood appropriate. Cooperative Labs, Imaging, and Studies reviewed: Recent Labs Lab 09/20/2060009/19/202210 HGB 11.8* 14.4 HCT 34.5* 41.4 PLT 98.0* 111.0* Recent Labs Lab 09/20/2060009/19/202210 NA 135 131* K 2.9* 3.0* CL 105 96 BUN 6* 9 CREATININE 0.46* 0.58* CALCIUM 8.2* 9.4 LABALBU -- 4.7 Recent Labs Lab 09/19/202210 ALT 35 AST 75* ALKPHOS 133* BILITOT 1.3 No results for input(s): INR in the last 168 hours. Associated attestation - Nina Peace MD - 09/20/2020 11:44 AM EDT Yonathan Fernandez is a 45 y.o. male with a history of coronary artery disease, hypertension, hyperlipidemia, hepatic encephalopathy, alcohol abuse, and alcohol withdrawal seizures who presented to [facility] 09/19/2020 with seizure-like activity witnessed by the patient's mother in the context of alcohol withdrawal. Patient was initially admitted to the CDU before being transferred to the inpatient setting.[facility] was asked to take over management relating to the patient's alcohol withdrawal. Altered Mental status:Suspect Metabolic encephalopathy from ETOH abuse on Adm,currently from medication/Ativan on CIWA.Ammonia on Adm 37>17,CTH negative.Cont Neuro checks seizure fall and aspiration precautions.Continue Plan as below. Alcohol Withdrawal/Seizure like activity on adm:Started Phenobarb Taper ,CIWA,Thiamine and Folic acid.Continued rifaximin Electrolyte Abnormalities:Replaced Mag and Potassium. CAD:s/p PCI to pRCA and dRCA (04/2019). Continued home DAPT, statin, BB, and ACEi HTN,HLD:Continue home meds Tobacco abuse:Nicotine patch,Counseling once little awake. ETOH abuse:Multiple admissions for same.workforce services representative consulted for information regarding rehabilitation after discharge/community resources Mild elevation of AST/ALT:Due to ETOH,Monitor. * Arjun Bahena APRN CNP - 09/19/2020 11:19 PM EDT [facility] HISTORY & PHYSICAL Date of Admission: 09/19/2020 Date of Service: 09/19/2020 PCP: Hayden Herrera APRN CNP Room: ED[address] [place] [address] CHIEF COMPLAINT: Seizures (possible) HISTORY OF PRESENT ILLNESS Yonathan Fernandez is a 45 y.o. male presented to [facility] Emergency Department was evaluated and subsequently admitted to CDU on 09/19/2020 for a chief complaint of seizure-like activity, with anonset of once this afternoon and once this evening and duration of mother reports the episode this evening lasted approximately 6 minutes. Location of generalized, in the context of alcoholism. Is described as mother describes the event as shaking all over and grabbing/scratching the floor, and severity is rated as 0/10. Alleviating factors are none. Aggravating factors are none. Associated symptoms are mild confusion, fatigue. Mother found patient on kitchen floor, states she called EMS by thetime EMS arrived patient was recovering, EMS brought patient to ED without having to provide any medications. In ED: Patient's work-up in the emergency department included CBC, chemistry, ammonia, serum ethanol, [id number] glucose, CT head without contrast and an EKG. His labs show mild hyponatremia, hypokalemia, elevated alkaline phosphatase and AST. Patient's ammonia is mildly elevated as well. Patient reports that he does drink some daily, denies large amount of alcohol intake. He states he is not sure what happened this afternoon. EMS reported to the ED the patient was not postictal when they picked him up. Patient was admitted to CDU for differentiation between syncopal episode versus seizure activity. PAST MEDICAL HISTORY has a past medical history of Alcohol abuse, Hyperlipidemia, Hypertension, and Myocardial infarct (HCC). PAST SURGICAL HISTORY has a past surgical history that includes hernia repair; arm surgery; Vasectomy; TONSILLECTOMY; Coronary angioplasty with stent; and Coronary angioplasty with stent. HOME MEDICATIONS Medications Prior to Admission Medication Sig Dispense Refill Last Dose albuterol 108 (90 Base) MCG/ACT inhaler INHALE 2 PUFFS INTO THE LUNGS EVERY 4 HOURS NEEDED FOR WHEEZING AND/OR SHORTNESS OF BREATH. 18 g 4 amitriptyline (ELAVIL) 75 MG tablet TAKE 1 TABLET BY MOUTH NIGHTLY. 30 tablet 6 09/18/2020 atorvastatin (LIPITOR) 80 MG tablet TAKE 1 TABLET BY MOUTH NIGHTLY. 30 tablet 11 09/18/2020 Blood Pressure Monitoring (BLOOD PRESSURE CUFF) MISC Use PRN 1 each 0 09/19/2020 clopidogrel (PLAVIX) 75 MG tablet TAKE 1 TABLET BY MOUTH DAILY. 30 tablet 2 09/19/2020 folic acid (FOLVITE) 1 MG tablet TAKE 1 TABLET BY MOUTH DAILY. 30 tablet 3 09/19/2020 gabapentin (NEURONTIN) 300 MG capsule TAKE 1 CAPSULE BY MOUTH 3 TIMES DAILY. (Patient taking differently: Take 300 mg by mouth daily.) 90 capsule 2 Taking Differently hydrOXYzine (ATARAX) 50 MG tablet Take 1 tablet by mouth every 6 hours as needed for Anxiety (for MILD anxiety- patient reported anxiety 1-4). 30 tablet 0 lisinopril-hydrochlorothiazide (PRINZIDE,ZESTORETIC) 20-12.5 MG per tablet TAKE 2 TABLETS BY MOUTH DAILY. 60 tablet 6 09/19/2020 Metoprolol Tartrate (LOPRESSOR) 25 MG tablet TAKE 1 TABLET BY MOUTH TWO TIMES A DAY. 60 tablet 2 pantoprazole (PROTONIX) 40 MG tablet TAKE 1 TABLET BY MOUTH DAILY. 30 tablet 2 09/19/2020 sildenafil (VIAGRA) 100 MG tablet Take 1 tablet by mouth daily as needed. 30 tablet 6 Past Month Thiamine HCl (B-1) 100 MG TABS TAKE 1 TABLET BY MOUTH DAILY. 30 tablet 3 09/19/2020 vitamin B-12 (CYANOCOBALAMIN) 1000 MCG tablet TAKE ONE TABLET BY MOUTH ONCE DAILY 30 tablet 3 09/19/2020 ALLERGIES has No Known Allergies. SOCIAL HISTORY reports that he has been smoking cigarettes and cigars. He has a 20.00 pack-year smoking history. He has never used smokeless tobacco. He reports current alcohol use. He reports that he does not use drugs. FAMILY HISTORY family history includes Diabetes in his maternal grandfather. REVIEW OF SYSTEMS Review of Systems Constitutional: Positive for malaise/fatigue. Negative for chills, diaphoresis and fever. HENT: Negative for congestion and hearing loss. Eyes: Negative for blurred vision and photophobia. Respiratory: Negative for cough, hemoptysis, shortness of breath, wheezing and stridor. Cardiovascular: Negative for chest pain, palpitations and leg swelling. Gastrointestinal: Negative for heartburn, nausea and vomiting. Genitourinary: Negative for dysuria and hematuria. Musculoskeletal: Negative for joint pain and myalgias. Neurological: Positive for tremors, seizures and loss of consciousness. Negative for dizziness and headaches. A minimum of ten systems have been reviewed and are negative except as noted in HPI, and pertinent positives and negatives as listed in HPI. PHYSICAL EXAM Vitals: Visit Vitals BP 145/88 Pulse 91 Temp 99.7 F (37.6 C) (Oral) Resp 25 Ht 5' 4 (1.626 m) Wt 65.8 kg (145 lb) SpO2 95% BMI 24.89 kg/m Physical Exam Constitutional: He is oriented to person, place, and time and well-developed, well-nourished, and in no distress. He appears dehydrated. He appears unhealthy. Non-toxic appearance. No distress. HENT: Head: Normocephalic and atraumatic. Mouth/Throat: Lacerations present. No oropharyngeal exudate, posterior oropharyngeal edema, posterior oropharyngeal erythema or tonsillar abscesses. Patient has hematoma and superficial laceration on his tongue. Mother reported to EMS the patient bit his tongue during the event this evening. Eyes: Pupils are equal, round, and reactive to light. Right eye exhibits no discharge. Left eye exhibits no discharge. Right conjunctiva has a hemorrhage. Left conjunctiva has a hemorrhage. Right eyeexhibits nystagmus. Left eye exhibits nystagmus. Bilateral nystagmus when looking right. PERRL, sluggish at 4mm Neck: No JVD present. No tracheal deviation present. Cardiovascular: Regular rhythm, normal heart sounds and intact distal pulses. No murmur heard. Pulses: Radial pulses are 2+ on the right side and 2+ on the left side. No peripheral edema Pulmonary/Chest: Effort normal and breath sounds normal. No stridor. He has no wheezes. He exhibitsno tenderness. Patient is breathing easily maintaining oxygen saturations above 98% on room air. Lungs are clear to auscultation bilaterally, no wheezes or stridor. No chest wall tenderness. Abdominal: Soft. Bowel sounds are normal. He exhibits no distension. There is no abdominal tenderness. There is no rebound and no guarding. Musculoskeletal: General: No deformity or edema. Normal range of motion. Cervical back: Normal range of motion and neck supple. Neurological: He is alert and oriented to person, place, and time. He has normal strength. He displays tremor. He displays no weakness and facial symmetry. No cranial nerve deficit. He exhibits normal muscle tone. He has a normal Irnknj-Ssok-Mvrccz Test and a normal Heel to Stewart Test. GCS score is 15. Tremor in hands and feet. No clonus Skin: Skin is dry. He is not diaphoretic. Psychiatric: Mood, affect and judgment normal. His mood appears not anxious. DATA REVIEWED I have personally reviewed chart, medications, diagnostics, and some old records. Patient's medications, allergies, past medical, surgical, social, and family histories were review and updated as appropriate. I coordinated medical care with nursing staff. Cardiographics 09/19/2020 ECG 09/19/2020 ECHO Imaging Results for orders placed or performed during the hospital encounter of 09/19/20 CT Head Without Contrast. Collection Time: 09/19/20 10:38 PM Narrative EXAMINATION: CT OF THE HEAD WITHOUT CONTRAST 09/19/2020 10:28 pm TECHNIQUE: CT of the head was performed without the administration of intravenous contrast. Dose modulation, iterative reconstruction, and/or weight based adjustment of the mA/kV was utilized to reduce the radiation dose to as low as reasonably achievable. COMPARISON: None. HISTORY: Mental status change, unknown cause Altered mental status, per mother seizure like activity. FINDINGS: BRAIN/VENTRICLES: There is no acute intracranial hemorrhage, mass effect or midline shift. No abnormal extra-axial fluid collection. The bartlett-white differentiation is maintained without evidence of an acute infarct. There is no evidence of hydrocephalus. There is senescent cerebral and cerebellar atrophy. 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 Focal hypodensities involving the more inferoposterior left basal ganglia could variably represent Virchow Lance spaces or additional tiny remote lacunar infarcts. ORBITS: The visualized portion of the orbits demonstrate no acute abnormality. SINUSES: The visualized paranasal sinuses and mastoid air cells demonstrate no acute abnormality. SOFT TISSUES/SKULL: No acute abnormality of the visualized skull or soft tissues. Impression No acute intracranial abnormality. Chronic findings as described. Lab Review Recent Labs Lab 04/23/21 2211 HGB 14.4 HCT 41.4 WHITEBLOODCE 8.6 PLT 111.0* NA 131* K 3.0* CL 96 CO2 19* BUN 9 CREATININE 0.58* GLU 144* CALCIUM 9.4 No results for input(s): CK, CKMB, TROPONINI in the last 168 hours. Recent Labs Lab 09/19/20 2211 ALKPHOS 133* BILITOT 1.3 AST 75* ALT 35 ASSESSMENT / PLAN Plan for Principal Problem: Seizure-like activity (HCC) Active Problems: Loss of consciousness (HCC) Hypokalemia Once patient was admitted to CDU, his mother was contacted who reported patient drinks approximately 750 mL's of Adrianna each day. She states that he had 2 episodes of what she reports is seizure-like activity during the day today, 1 this afternoon lasting few seconds, states another one this evening where she found him lying on the kitchen floor after he stopped talking to her over the phone. States she went downstairs and found him shaking and what she described as scratching at the floor. She states the episode lasted approximately 6 minutes. States that afterwards patient was very slow to respond was extremely confused. PLAN: Patient's work-up in the ED showed undetectable serum ethanol level. Given patient's daily consumption of alcohol alcohol withdrawal is suspected. MRI will be completed to rule out lesions or CVA. CIWA assessment and precautions will be instituted. Patient started on thiamine and B vitamin infusion, IV potassium replacement. CBC, chemistry and hepatic function daily, seizure precautions, lactate and albumin added to patient's labs at time of arrival. Prophylaxis: DOUGLAS hose Discharge Planning: Patient symptoms improve he will be suitable for discharge after his imaging tomorrow, if patient's symptoms continue to worsen he will need transfer to stepdown. Note: I discussed present assessment(s), test results, and plan of care with patient. Additionally,all questions and concerns were addressed. Reviewed and discussed case with collaborating physician Dr. Dubon Signed: Arjun AGUIRRE-C, FIDELP- BC, MANAGER DOCUMENTATION [facility] 09/19/2020 11:19 PM Associated attestation - Tremayne Dubon MD - 09/20/2020 7:58 AM EDT Date and time patient seen and examined: TuesdaySeptember 20 at 0717 This record was generated by a voice activated dictation system and may contain grammatical and typographical errors. I personally saw and examined this patient. I supervised the care and treatment of this patient. I formulated the medical decision making plan verbally with the midlevel, MAKE UP ARRANGER that led to the disposition, treatment, and admission of this patient. The orders and treatment entered are part of the direct result of that medical decision making and treatment plan formulated and discussed Patient's medications, allergies, past medical, surgical, social and family histories were reviewedand updated as appropriate Brief HPI 45 yo male presented with complaints of seizure like activity Daily drinker of heavier amount than initially disclosed. ROS. Laceration to right lateral tongue All systems reviewed and are otherwise normal unless noted. Physical Exam Constitutional: 45 yo male. Tremulous. Not toxic mildly confused HENT: tongue laceration lateral right side. No bleeding. Head: Normocephalic and atraumatic. Not macrocephalic and not microcephalic. Eyes: Pupils are equal, round, and reactive to light. EOM are normal. Right eye exhibits no discharge. Left eye exhibits no discharge. Neck: Normal range of motion. No JVD present. No tracheal deviation present. No thyromegaly present. Cardiovascular: Regular rhythm and rate. Pulmonary/Chest: Effort normal. No stridor. No respiratory distress. No wheezes. Abdominal: Soft. No distension. There is no tenderness. There is no guarding. Musculoskeletal: Normal range of motion. General: No deformity or edema. Neurological: Alert and oriented to person, place, and time. Normal strength. Not agitated and not disoriented. No facial symmetry, normal speech. No cranial nerve deficit.Coordination GCS score is 15. Skin: Skin is warm and dry. Not diaphoretic. No erythema. Psychiatric: Mood and judgment normal. Nursing note and vitals reviewed. DATA REVIEWED I have personally reviewed chart, medications, diagnostics and old records. Patient's medications, allergies, past medical, surgical, social, and family histories were review and updated as appropriate. I coordinated medical care with nursing staff. Labs Reviewed POCT GLUCOSE - Abnormal; Notable for the following components: Result Value POC Glucose 153 (*) All other components within normal limits CBC WITH DIFFERENTIAL - Abnormal; Notable for the following components: MCV 107.5 (*) MCH 37.4 (*) RDW 16.7 (*) Platelets 111.0 (*) Absolute Neutrophil 7.1 (*) Absolute Lymph 0.6 (*) Absolute [place] 0.8 (*) All other components within normal limits COMPREHENSIVE METABOLIC PANEL - Abnormal; Notable for the following components: Sodium 131 (*) Potassium 3.0 (*) CO2 19 (*) Glucose 144 (*) Creatinine 0.58 (*) Total Protein 9.1 (*) Alk Phos 133 (*) AST 75 (*) All other components within normal limits AMMONIA - Abnormal; Notable for the following components: Ammonia 37 (*) All other components within normal limits BASIC METABOLIC PANEL - Abnormal; Notable for the following components: Potassium 2.9 (*) BUN 6 (*) Creatinine 0.46 (*) Calcium 8.2 (*) All other components within normal limits CBC WITH DIFFERENTIAL - Abnormal; Notable for the following components: RBC 3.19 (*) Hgb 11.8 (*) Hematocrit 34.5 (*) MCV 108.2 (*) MCH 37.0 (*) RDW 16.7 (*) Platelets 98.0 (*) Absolute Lymph 0.8 (*) Absolute [place] 0.7 (*) All other components within normal limits ETHANOL GLOMERULAR FILTRATION RATE LACTATE LACTATE GLOMERULAR FILTRATION RATE TOXICOLOGY SCREEN, URINE Assessment and plan Alcohol withdrawal seizure vs syncope CIWA score consistent with alcohol withdrawal Patient has received thiamine, B vitamins. Potassium. Patient will be transferred to the inpatient medicine team for alcohol withdrawal Hypokalemia Potassium repletion Elevated ammonia Dose of Xifaxan given We will continue to monitor documented in this [facility]04-23-2021 Emergency department Note* Daniela Bautista MST - 09/19/2020 11:18 PM EDT 1201 clean * Kathy Gates RN - 09/19/2020 11:08 PM EDT Pt attempting to call mother at this time * Daniela Bautista MST - 09/19/2020 10:58 PM EDT Please call Mom with questions Shanice [phone] * Kevon Guadarrama MD - 09/19/2020 10:10 PM EDT ED Diagnosis and Summary 1. Loss of consciousness (HCC) 2. Seizure-like activity (HCC) 3. Hypokalemia ED Summary Assessment: 45 y.o. male who was seen and evaluated for loss of consciousness. This occurred immediately after standing after having been seated for some time, was preceded by lightheadedness and wasaccompanied by some generalized abnormal movements and tongue biting. However, there was no postictal state, which makes a seizure somewhat less likely. I suspect that this was a syncopal episode with myoclonic movements, but difficult to say for sure. Given his age and other risk factors, patient will be placed in the CDU for syncopal work-up, including MRI of his brain. His work-up here is benign other than mild hypokalemia and mildly elevated ammonia. Will administer banana bag and replace potassium Impression: 45 y.o. with loss of consciousness, seizure-like activity ED Course: Uncomplicated DDx (diagnoses considered during this encounter [this list is not exhaustive]): Seizure, orthostatic hypotension/syncope, myoclonic jerks, electrolyte abnormality, acute intracranial mass or hemorrhage Pertinent Results: Labs: Labs Reviewed POCT GLUCOSE - Abnormal; Notable for the following components: Result Value POC Glucose 153 (*) All other components within normal limits CBC WITH DIFFERENTIAL - Abnormal; Notable for the following components: MCV 107.5 (*) MCH 37.4 (*) RDW 16.7 (*) Platelets 111.0 (*) Absolute Neutrophil 7.1 (*) Absolute Lymph 0.6 (*) Absolute [place] 0.8 (*) All other components within normal limits COMPREHENSIVE METABOLIC PANEL - Abnormal; Notable for the following components: Sodium 131 (*) Potassium 3.0 (*) CO2 19 (*) Glucose 144 (*) Creatinine 0.58 (*) Total Protein 9.1 (*) Alk Phos 133 (*) AST 75 (*) All other components within normal limits AMMONIA - Abnormal; Notable for the following components: Ammonia 37 (*) All other components within normal limits ETHANOL GLOMERULAR FILTRATION RATE TOXICOLOGY SCREEN, URINE LACTATE Imaging: CT Head Without Contrast. Final Result No acute intracranial abnormality. Chronic findings as described. MRI Brain Without IV Contrast (Results Pending) Dispo: CDU Pertinent chart review performed including recent visits, laboratory testing, procedures, and imaging if applicable. Nursing documentation of PMHx, Surg Hx, FHx, Soc Hx and medications reviewed and agree except as noted in the body of this note. Some or all of this note was created using voice recognition software. Efforts were made to proofread but errors in grammar, syntax, punctuation as well as transcriptional errors may persist. History Chief Complaint Patient presents with Seizures possible Patient's medications and allergies were reviewed and updated as appropriate. HPI Patient seen and evaluated for loss of consciousness and seizure-like activity. Approximately 45 minutes prior to arrival, he was sitting in his kitchen table, stood up and began walking, had sudden onset of of lightheadedness, followed immediately by loss of consciousness. The patient is amnestic to the episode, but his mother reports that he had several seconds of generalized abnormal movements. He then awakened with no postictal state or confusion. He states he did bite his tongue, but denies loss of bowel or bladder continence. He at this time complains of feeling mildly shaky, but denies all other complaints. Denies headache, neck pain, back pain, numbness/tingling/weakness of his ext remities, chest pain, shortness of breath, palpitations, all other associated symptoms. No prior similar episodes, no known exacerbating or relieving factors. He does admit to occasional consumption of alcohol, denies intoxication at this time. Review of Systems Constitutional: Negative. HENT: Negative. Eyes: Negative. Respiratory: Negative. Cardiovascular: Negative. Gastrointestinal: Negative. Endocrine: Negative. Genitourinary: Negative. Musculoskeletal: Negative. Skin: Negative. Neurological: Positive for seizures and syncope. Hematological: Negative. Psychiatric/Behavioral: Negative. Physical Exam ED Triage Vitals [09/19/20 2206] BP (!) 161/99 Heart Rate 95 Resp 15 Temp 99.7 F (37.6 C) Temp Source Oral SpO2 95 % Weight 145 lb (65.8 kg) Height 5' 4 (1.626 m) BMI (Calculated) 24.88 Physical Exam Vitals and nursing note reviewed. Constitutional: General: He is not in acute distress. Appearance: He is well-developed. He is not diaphoretic. HENT: Head: Normocephalic. Right Ear: External ear normal. Left Ear: External ear normal. Mouth/Throat: Pharynx: No oropharyngeal exudate. Comments: Abrasion to right lateral aspect of the tongue consistent with bite Eyes: General: No scleral icterus. Right eye: No discharge. Left eye: No discharge. Conjunctiva/sclera: Conjunctivae normal. Pupils: Pupils are equal, round, and reactive to light. Neck: Thyroid: No thyromegaly. Vascular: No JVD. Trachea: No tracheal deviation. Cardiovascular: Rate and Rhythm: Regular rhythm. Heart sounds: Normal heart sounds. No murmur. No friction rub. No gallop. Pulmonary: Effort: Pulmonary effort is normal. No respiratory distress. Breath sounds: Normal breath sounds. No stridor. No wheezing or rales. Chest: Chest wall: No tenderness. Abdominal: General: Bowel sounds are normal. There is no distension. Palpations: Abdomen is soft. There is no mass. Tenderness: There is no abdominal tenderness. There is no guarding or rebound. Musculoskeletal: General: No tenderness or deformity. Normal range of motion. Cervical back: Normal range of motion and neck supple. Lymphadenopathy: Cervical: No cervical adenopathy. Skin: General: Skin is warm and dry. Coloration: Skin is not pale. Findings: No erythema or rash. Neurological: Mental Status: He is alert and oriented to person, place, and time. Cranial Nerves: No cranial nerve deficit. Motor: No abnormal muscle tone. Coordination: Coordination normal. Deep Tendon Reflexes: Reflexes are normal and symmetric. Reflexes normal. Comments: GCS 15, neurologically intact with a nonfocal exam Psychiatric: Behavior: Behavior normal. Thought Content: Thought content normal. Judgment: Judgment normal. ED Course Procedures Medical Decision Making Kevon Guadarrama MD 09/19/20 [id number] * Kathy Gates RN - 09/19/2020 10:03 PM EDT Pt arrival via ems. Per EMS, mother called ems d/t to patient having seizure like activity, reportsthat pt was scratching at floor. EMS reports pt was not postictal and short term memory was intact.Pt reports he does not remember what happened. Patient alert, oriented to self and place, reports he is a little cloudy, follows commands, skin pink warm dry, respirations even and unlabored * Sandi Curtis RN - 09/19/2020 10:02 PM EDT Bed: 15 [facility] Expected date: 09/19/20 Expected time: 9:53 PM Means of arrival: [facility] Department Comments: EMS called for possible seizure like activity Confusion and repeating self [facility] Diagnosis Seizure-like activity (HCC)- Primary Other convulsions Loss of consciousness (HCC) Other alteration of consciousness Hypokalemia Hypopotassemia Ataxia Lack of coordination Pneumonia of both lower lobes due to infectious organism Atypical chest pain Other chest pain Alcohol withdrawal (HCC) Alcohol withdrawal Tobacco abuse Tobacco use disorder Gastroesophageal reflux disease without esophagitis Esophageal reflux [facility]* Diagnosis Seizure-like activity (HCC) Other convulsions Alcohol withdrawal syndrome with complication (HCC) 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) documented [facility]* Diagnosis Acute chest pain- Primary Chest pain, unspecified Chest pain, unspecified type Hypomagnesemia Disorders of magnesium metabolism Hypokalemia Hypopotassemia Alcohol withdrawal syndrome, with delirium (HCC) Tobacco abuse Tobacco use disorder Alcohol abuse Alcohol abuse, unspecified Coronary artery disease involving [place] coronary artery of [place] heart with angina pectoris (HCC) Elevated lipase Other nonspecific abnormal serum enzyme levels Acute alcohol intoxication, uncomplicated (HCC) documented [facility]* Diagnosis Alcoholic ketoacidosis- Primary Acidosis Alcohol withdrawal delirium (HCC) Alcohol withdrawal delirium Acute kidney injury (HCC) Acute kidney failure, unspecified Hypokalemia Hypopotassemia Alcohol abuse Alcohol abuse, unspecified Seizure disorder (HCC) Unspecified epilepsy without mention of intractable 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) Gastroesophageal reflux disease without esophagitis Esophageal reflux Tobacco abuse Tobacco use disorder documented [facility]* Diagnosis Hypothermia, initial encounter Alcohol withdrawal syndrome, with delirium (HCC) Other specified hypotension Elevated lactic acid level Other nonspecific abnormal serum enzyme levels Leukocytosis, unspecified type Seizure-like activity (HCC) Other convulsions [facility]* Diagnosis Impending pathologic fracture- Primary [facility] Diagnosis 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 9 Ways to Cut Back on Drinking Maybe you've found yourself drinking more alcohol than you'd prefer. If you want to cut back, here are some ideas to try. Think before you drink. Do you really want a drink, or is it just a habit? If you're used to havinga drink at a certain time, try doing something else then. Look for substitutes. Find some no-alcohol drinks that you enjoy, like flavored seltzer water, tea with honey, or tonic with a slice of havasupai. Or try alcohol- free beer or virgin cocktails (without the alcohol). Drink more water. Use water to quench your thirst. Drink a glass of water before you have any alcohol. Have another glass along with every drink or between drinks. Shrink your drink. For example, have a bottle of beer instead of a pint. Use a smaller glass for wine. Choose drinks with lower alcohol content (ABV%). Or use less liquor and more mixer in cocktails. Slow down. It's easy to drink quickly and without thinking about it. Pay attention, and make each drink last longer. Do the math. Total up how much you spend on alcohol each month. How much is that a year? If you cutback, what could you do with the money you save? Take a break. Choose a day or two each week when you won't drink at all. Notice how you feel on those days, physically and emotionally. How did you sleep? Do you feel better? Over time, add more break days. Count calories. Would you like to lose some weight? That can be a good motivator for cutting back. Figure out how many calories are in each drink. How many does that add up to in a day? In a week? Nydia month? Practice saying no. Be ready when someone offers you a drink. Try: Thanks, I've had enough. Or Thanks, but I'm cutting back. Or No, thanks. I feel better when I drink less. Current as of: July 10, 2020 Content Version: 12.9 [employer]. Care instructions adapted under license by your healthcare professional. If you have questions about a medical condition or this instruction, always ask your healthcare professional. [employer] disclaims any warranty or liability for your use of this information. Alcohol Detoxification and Withdrawal: Care Instructions Your Care Instructions If you drink alcohol regularly and then suddenly stop, you may go through some physical and emotional problems while the alcohol clears out of your system. Clearing the alcohol from your body is called detoxification, or detox. Physical and emotional problems that may happen during detox are calledwithdrawal. Symptoms of withdrawal can be scary and dangerous. Mild symptoms include nausea and vomiting, sweating, shakiness, and intense worry. Severe symptoms include being confused and irritable, feeling things on your body that are not there, seeing or hearing things that are not there, and trembling. Youmay even have seizures. If your symptoms become severe you must see a doctor. People who drink large amounts of alcohol should not try to detox at home. A person can of severe alcohol withdrawal. Symptoms of alcohol withdrawal may begin from 4 to 12 hours after you stop drinking. But they may not start for several days after the last drink. They can last a few days. It is hard to stop drinking. But when you have cleared the alcohol from your system, you will be able to start the next part of your life, free from the burden of being dependent. Follow-up care is a kulkarni part of your treatment and safety. Be sure to make and go to all appointments, and call your doctor if you are having problems. It's also a good idea to know your test resultsand keep a list of the medicines you take. How can you care for yourself at home? Before you stop drinking, talk to your doctor about how you plan to stop. Be sure to be completely honest with him or her about how much you have been drinking. Your doctor will figure out whether you need to detox in a supervised medical center. Take your medicines exactly as prescribed. Call your doctor if you think you are having a problem with your medicine. Make sure someone you trust is with you the whole time. Have friends and family members take turns staying with you until you are done with detox. Put a list of emergency numbers near the phone. This should include your doctor, the police, the nearest hospital and emergency room, and neighbors who can help if needed. Make sure all alcohol is removed from the house before you start. This includes beverages as well as medicines, rubbing alcohol, and certain flavorings like vanilla extract. Keep drinking buddies away during the time you are going through detox. Make your surroundings calm. Soft lights, soft music, and a comfortable place to sit or lie down can help make the process easier. Drink lots of fluids and eat snacks such as fruit, cheese and crackers, and pretzels. Foods high incarbohydrate may help reduce the craving for alcohol. Understand that detox is going to be hard. Keep in mind that the people watching over you during detox are there to help. Explain to them before you start that you may not act like yourself until detox is finished. Consider joining a support group such as Alcoholics Anonymous. Sharing your experiences with other people who face similar challenges may help you feel less overwhelmed. Keep the numbers for these national suicide hotlines: 2-378-309-TALK ( ) and 2-728-RKFCHYL ( ). If you or someone you know talks about suicide or feeling hopeless, get help right away. When should you call for help? Call 911 anytime you think you may need emergency care. For example, call if: You feel you cannot stop from hurting yourself or someone else. You vomit many times and cannot stop. You vomit blood or what looks like coffee grounds. You have trouble breathing or are breathing very fast. Your heart beats more than 120 times a minute and will not slow down. You have chest pain. You have a seizure. You see or feel things that are not there (hallucinate). If you are caring for someone who is going through detox, call if: The person passes out (loses consciousness). The person sees or feels things that are not there and sees or hears the same things many times. The person is very agitated and will not calm down. The person becomes violent or threatens to be violent. The person has a seizure. Call your doctor now or seek immediate medical care if: You have a high fever. You have severe belly pain. You are very shaky. Watch closely for changes in your health, and be sure to contact your doctor if: You do not get better as expected. Where can you learn more? Go to https://www.[employer].net/patientEd Enter D051 in the search box to learn more about Alcohol Detoxification and Withdrawal: Care Instructions. Current as of: July 10, 2020 Content Version: 12.9 [employer]. Care instructions adapted under license by your healthcare professional. If you have questions about a medical condition or this instruction, always ask your healthcare professional. [employer] disclaims any warranty or liability for your use of this information. Learning About Alcohol Use Disorder What is alcohol use disorder? Alcohol use disorder means that a person drinks alcohol even though it causes harm to themselves orothers. It can range from mild to severe. The more signs of this disorder you have, the more severeit may be. Moderate to severe alcohol use disorder is sometimes called addiction. People who have it may find it hard to control their use of alcohol. People who have this disorder may argue with others about how much they're drinking. Their job may be affected because of drinking. They may drink when it's dangerous or illegal, such as when they drive. They also may have a strong need, or craving, to drink. They may feel like they must drink justto get by. Their drinking may increase their risk of getting hurt or being in a car crash. Over time, drinking too much alcohol may cause health problems. These may include high blood pressure, liver problems, or problems with digestion. What are the signs? Maybe you've wondered about your alcohol habits, or how to tell if your drinking is becoming a problem. Here are some of the signs of alcohol use disorder. You may have it if you have two or more of the following signs: You drink larger amounts of alcohol than you ever meant to. Or you've been drinking for a longer time than you ever meant to. You can't cut down or control your use. Or you constantly wish you could cut down. You spend a lot of time getting or drinking alcohol or recovering from its effects. You have strong cravings for alcohol. You can no longer do your main jobs at work, at school, or at home. You keep drinking alcohol, even though your use hurts your relationships. You have stopped doing important activities because of your alcohol use. You drink alcohol in situations where doing so is dangerous. You keep drinking alcohol even though you know it's causing health problems. You need more and more alcohol to get the same effect, or you get less effect from the same amount over time. This is called tolerance. You have uncomfortable symptoms when you stop drinking alcohol or use less. This is called withdrawal. Alcohol use disorder can range from mild to severe. The more signs you have, the more severe the disorder may be. Moderate to severe alcohol use disorder is sometimes called addiction. You might not realize that your drinking is a problem. You might not drink large amounts when you drink. Or you might go for days or weeks between drinking episodes. But even if you don't drink very often, your drinking could still be harmful and put you at risk. How is alcohol use disorder treated? Getting help is up to you. But you don't have to do it alone. There are many people and kinds of treatments that can help. Treatment for alcohol use disorder can include: Group therapy, one or more types of counseling, and alcohol education. Medicines that help to: ? Reduce withdrawal symptoms and help you safely stop drinking. ? Reduce cravings for alcohol. Support groups. These groups include Alcoholics Anonymous and [employer] (Self-Management and Recovery Training). Some people are able to stop or cut back on drinking with help from a counselor. People who have moderate to severe alcohol use disorder may need medical treatment. They may need to stay in a hospital or treatment center. You may have a treatment team to help you. This team may include a psychologist or psychiatrist, counselors, doctors, social workers, nurses, and a sample case porter. A sample case porter helps plan and manage your treatment. Follow-up care is a kulkarni part of your treatment and safety. Be sure to make and go to all appointments, and call your doctor if you are having problems. It's also a good idea to know your test resultsand keep a list of the medicines you take. Where can you learn more? Go to https://www.[employer].net/patientEd Enter H758 in the search box to learn more about Learning About Alcohol Use Disorder. Current as of: July 10, 2020 Content Version: 12.9 [employer]. Care instructions adapted under license by your healthcare professional. If you have questions about a medical condition or this instruction, always ask your healthcare professional. [employer] disclaims any warranty or liability for your use of this information. Learning About Alcohol Withdrawal What is alcohol withdrawal? If you drink alcohol regularly (more than a few drinks on most days) and then suddenly stop or cut down, you may go through some physical and emotional problems while the alcohol clears out of your system. This is called withdrawal. Clearing the alcohol from your body is called detoxification, or detox. What are the symptoms? Symptoms of alcohol withdrawal may start as soon as 4 to 12 hours after you stop drinking. Or they may not start until several days after the last drink. Mild symptoms include: Nausea. Sweating. Shakiness. Diarrhea. Intense worry. Disturbed sleep. Headache. More severe symptoms include: Vomiting or belly pain. Being confused, upset, and irritable. Changed sensations. You might feel things on your body that aren't really there. Or you may see or hear things that aren't there. Trembling. Being short of breath or having pain in your chest. Having seizures. Symptoms may peak within a few days. Mild symptoms can last for a few weeks. If your symptoms are severe, you'll need to see a doctor. What is the treatment for alcohol withdrawal? Most people may be able to cut down or stop drinking with only mild withdrawal. They can stay safe by simply resting, drinking lots of fluids, and eating healthy foods. But people who drink large amounts of alcohol or are at risk for severe withdrawal symptoms should not try to detox at home unless they work closely with a doctor to manage it. A person can of severe alcohol withdrawal. Before you stop drinking, talk to your doctor about how you plan to stop. Be completely honest about how much you've been drinking. Your doctor will figure out if you need to detox in a medical center. You may get medicine to treat the symptoms whether you are at home or in a medical center. Medicinethat treats seizures can also help. Your doctor will explain what types of medicine might help you.You may start with a high dose and then take smaller amounts over several days. There's also medicine that can help you avoid alcohol while you recover. How can you manage your withdrawal and recovery? Here are a few tips that can help you to not start drinking again. Make sure there's no alcohol in the house. This includes drinks as well as liquid medicines, rubbing alcohol, and certain flavorings like vanilla extract. Try not to hang out with people you used to drink with. Don't go it alone. Spend time with people who support the changes you are making in your life. Thisincludes asking for advice and help from people who have stopped drinking. You might also try mutual support groups such as Alcoholics Anonymous. Drink lots of fluids. Eat snacks such as fruit, cheese and crackers, and pretzels. High-carbohydrate foods may help reduce the craving for alcohol. What happens after withdrawal? It can be hard to stop drinking. But after you clear the alcohol from your system, you can start the next, healthier part of your life. After detox, you will focus on staying alcohol-free. You can learn skills that you can use to stay abstinent (or sober) as you recover. Finding new ways to deal with life's challenges, without drinking, takes time and effort. Recovery is a long-term process. It's not something you can achieve in a few weeks. Most people get some type of therapy, such as group counseling. You also may need medicine to help you stay sober. Treatment doesn't focus on alcohol use alone. It may address other parts of your life, like your relationships, work, medical problems, and home life. Treatment, support, patience, and commitment will help you make the changes you need to live a salazar life without alcohol. You may find, over time, that the process gets easier, life becomes more joyous, and your connections to others becomes more rewarding. Where can you find help? Behavioral Health Treatment Services [facility] [employer]. This service from the national Substance Abuse and Mental Health Services Administration can help you find local alcohol treatment services. Search online at findtreatment.samhsa.gov or call 4-523-580-HELP (5570), or TDD . Where can you learn more? Go to https://www.[employer].net/patientEd Enter A011 in the search box to learn more about Learning About Alcohol Withdrawal. Current as of: July 10, 2020 Content Version: 12.9 [employer]. Care instructions adapted under license by your healthcare professional. If you have questions about a medical condition or this instruction, always ask your healthcare professional. [employer] disclaims any warranty or liability for your use of this information. [facility] ([facility] Consultation (Routine) - Open Specialty Diagnoses / Procedures Referred By Sai harkins Referred To Contact Family Medicine Diagnoses Alcoholic ketoacidosis Areli Ariza DO [address] [place] [address] [place] [address] Referral ID Status Reason Start Date Expiration Date Visits Re quested Visits Authorized [id number] Open 02/22/2021 03/24/2022 1 1 * (Routine) - Incomplete Specialty Diagnoses / Procedures Referred By Sai harkins Referred To Contact Areli Ariza DO [address] [place] [address] Referral ID Status Reason Start Date Expiration Date V isits Requested Visits Authorized [id number] Incomplete 02/22/2021 03/24/2022 1 1 [facility] for visit Narrative* Auth/Cert (Routine) Specialty Diagnoses / Procedures Referred By Sai harkins Referred To Contact 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 Joyce Hennessy MD [address] [facility] [place] [address] [place] [id number] Phone: tel: fax: [facility] [address] [place] [address] Phone: tel: Referral ID Status Reason Start Date Expiration Date Visits Re quested Visits Authorized [id number] 1 [facility] Reason for Referral Status Reason Specialty Diagnoses / Procedures Referred By Contact Referred To Contact Arjun Marks NP [address] [place] [address] Status Reason Specialty Diagnoses / Procedures Re ferred By Contact Referred To Contact Open Cardiac Rehab Diagnoses S/P PTCA (percutaneous transluminal coronary angioplasty) Maxine Alonso PA [address] [place] [address] Cardiac Re[facility] [address] [place] [address] Status Reason Specialty Diagnoses / Procedures Referred By Contact Referred To Contact Anahy Feliciano MD [address] [place] [address] Status Reason Specialty Diagnoses / Procedures Referred By Contact Referred To Contact Open Specialty Services Required Home Health Services Diagnoses Seizure-like activity (HCC) Ángel Julian MD [address] [place] [address] Status Reason Specialty Diagnoses / Procedures Referred By Contact Referred To Contact Authorized Neurology Diagnoses Seizure-like activity (HCC) Ángel Rodríguez MD [address] [place] [address] [facility] [address] [place] [address] Status Reason Specialty Diagnoses / Procedures Referred By Contact Referred To Contact Ángel Haynes MD [address] [place] [address] Status Reason Specialty Diagnoses / Procedures Referred By Contact Referred To Contact Authorized Cardiology Diagnoses Atypical chest pain Ángel Rodríguez MD [address] [place] [address] [facility] [address] [place] [address] Status Reason Specialty Diagnoses / Procedures Referred By Contact Referred To Contact Magali Garza PA [address] [place] [address] [address] [place] [address] Status Reason Specialty Diagnoses / Procedures Referred By Contact Referred To Contact [facility] Diagnoses Chest pain, unspecified type Maxine Soares MD [address] [place] [address] Status Reason Specialty Diagnoses / Procedures Referred By Contact Referred To Contact [facility] Diagnoses Alcohol withdrawal syndrome, with delirium (HCC) Maxine Soares MD [address] [place] [address] Status Reason Specialty Diagnoses / Procedures Referred By Contact Referred To Contact Maxine Lane MD [address] [place] [address] Discharge Instructions * Instructions* Renee Dowd RN - 05/16/2019 TR Band: What to Expect at Home Your Recovery This care sheet gives you a general idea about how long it will take for you to recover. But each person recovers at a different pace. Follow the steps below to get better as quickly as possible. How can you care for yourself at home? Activity Do not do strenuous exercise and do not lift, pull, or push anything heavier than 5 lbs for 5 days.You can walk around the house and do light activity, such as cooking. You may shower 24 hours after the procedure. Pat the incision dry. Do not take a bath for 1 week orsubmerge your arm in water (e.g. Washing dishes), or until your doctor tells you it is okay. Do not bend your wrist deeply for the first couple of days. Be careful using your hand to get into and out of a chair or bed. If your doctor recommends it, get more exercise. Walking is a good choice. Bit by bit, increase theamount you walk every day. Try for at least 30 minutes on most days of the week. Diet Drink plenty of fluids to help your body flush out the dye. If you have kidney, heart, or liver disease and have to limit fluids, talk with your doctor before you increase the amount of fluids you drink. Keep eating a heart-healthy diet that has lots of fruits, vegetables, and whole grains. If you havenot been eating this way, talk to your doctor. You also may want to talk to a dietitian. This expert can help you to learn about healthy foods and plan meals. Medicines Your doctor will tell you if and when you can restart your medicines. He or she will also give you instructions about taking any new medicines. If you take blood thinners, such as warfarin (Coumadin), clopidogrel (Plavix), or aspirin, be sure to talk to your doctor. He or she will tell you if and when to start taking those medicines again. Make sure that you understand exactly what your doctor wants you to do.. Call your doctor if you think you are having a problem with your medicine. Care of the catheter site For 1 or 2 days, keep a bandage over the spot where the catheter was inserted. Change the bandage daily. Put ice or a cold pack on the area for 10 to 20 minutes at a time to help with soreness or swelling. Put a thin cloth between the ice and your skin. Follow-up care is a kulkarni part of your treatment and safety. Be sure to make and go to all appointments, and call your doctor if you are having problems. It's also a good idea to know your test resultsand keep a list of the medicines you take. When should you call for help? Call 911 anytime you think you may need emergency care. For example, call if: You passed out (lost consciousness). You have severe trouble breathing. You have sudden chest pain and shortness of breath, or you cough up blood. You have symptoms of a heart attack, such as: Chest pain or pressure. Sweating. Shortness of breath. Nausea or vomiting. Pain that spreads from the chest to the neck, jaw, or one or both shoulders or arms. Dizziness or lightheadedness. A fast or uneven pulse. After calling 911, chew 1 adult-strength aspirin. Wait for an ambulance. Do not try to drive yourself. You have been diagnosed with angina, and you have angina symptoms that do not go away with rest or are not getting better within 5 minutes after you take one dose of nitroglycerin. Call your doctor now or seek immediate medical care if: You are bleeding from the area where the catheter was put in your artery or you have a fast-growing, painful lump at the catheter site. Hold direct pressure on the site and seek immediate medical help. You have signs of infection, such as: Increased pain, swelling, warmth, or redness. Red streaks leading from the catheter site. Pus draining from the catheter site. A fever. Your arm looks blue or feels cold, numb, or tingly. Watch closely for changes in your health, and be sure to contact your doctor if you have any problems. Where can you learn more? Go to https://www.[employer].net/patientEd. Enter Q672 in the search box to learn more about Percutaneous Coronary Intervention: What to Expect at Home. Current as of: June 25, 2015 Content Version: 11.0 4684-3045 [employer]. Care instructions adapted under license by your healthcare professional. If you have questions about a medical condition or this instruction, always ask your healthcare professional. [employer] disclaims any warranty or liability for your use of this information. Learning About Percutaneous Coronary Intervention What is percutaneous coronary intervention? Percutaneous coronary intervention (PCI) is the name for procedures to open a blocked coronary artery. The two most common are coronary angioplasty and coronary stent placement. A PCI is a way to open a blocked coronary artery before, during, or after a heart attack. It gets blood flowing to your heart. And it can help prevent heart problems by widening an artery that has been narrowed by fatty buildup (plaque). This also may be called balloon angioplasty. Before a PCI, a doctor does a test to find blocked arteries. The test is called cardiac catheterization. The doctor puts a tiny tube called a catheter into an artery in your groin or arm. The doctor moves the catheter through the artery to your heart. Then he or she puts a dye into the catheter. This makes your heart's arteries show up on a screen so the doctor can see any blockages. The test also can measure the pressure inside your heart's chambers. If you have a blocked artery, the doctor may do an angioplasty or a coronary stent procedure. In anangioplasty, the doctor uses a catheter with a tiny balloon at the tip. He or she puts it into the blocked area and inflates it. The balloon presses the plaque against the quiros of the artery. This makes more room for blood to flow. In most cases, the doctor then puts a stent in the artery. A stentis a small, expandable tube that presses against the quiros of the artery. The stent is left in the artery to keep the artery open. This helps blood flow. It also may keep small pieces of plaque from breaking off and causing a heart attack. How is PCI done? PCI is done in a cardiac catheterization laboratory (director of cath lab). It is done by a metrology specialist called a environmental assistant. The whole procedure may take 1 to 3 hours. You lie on a table under a large X-ray machine. You will get medicine through an IV in one of your veins. It helps you relax and not feel pain. You will be awake during the procedure. But you may notbe able to remember much about it. The doctor will inject some medicine into your arm or groin to numb the skin. You will feel a smallneedle stick. It's like having a blood test. You may feel some pressure when the doctor puts in thecatheter. But you will not feel pain. The doctor will look at X-ray pictures on a monitor (like a TV set) to move the catheter to your heart. You may feel warm or flushed for a short time when the doctor injects dye into your artery. Thedoctor then will inflate a tiny balloon at the end of the catheter. The balloon is inflated for a brief time. Then it is deflated and removed. The doctor also may use the catheter to put a stent in the artery. What can you expect after PCI? The catheter will be removed. A nurse or doctor may press on a bandage on the opening. Then a bandage or a compression device may be placed on your groin or wrist at the catheter insertion site. Thisprevents bleeding. After the test, you will be taken to a room where the catheter site and your heart rate, blood pressure, and temperature will be checked several times. If the catheter was put in your groin, you will need to lie still and keep your leg straight for several hours. If the catheter was put in your arm, you may be able to sit up and get out of bed right away. But you will need to keep your arm still for at least one hour. You may stay 1 night in the hospital. When you go home, you will get instructions from your doctor to help you recover well and prevent problems. Make sure to drink plenty of fluids (unless your doctor tells you not to) for several hours after the test. This will help flush the dye out of your body. Your doctor will prescribe blood-thinning medicines. You will likely take aspirin plus another blood thinner. It is very important that you take these medicines exactly as directed. They help keep the coronary artery open and reduce your risk of a heart attack. If you have this procedure, you will still need to make lifestyle changes like eating healthy, being active, and not smoking. This will give you the best chance for a longer, healthier life. Follow-up care is a kulkarni part of your treatment and safety. Be sure to make and go to all appointments, and call your doctor if you are having problems. It's also a good idea to know your test resultsand keep a list of the medicines you take. Where can you learn more? Go to https://www.[employer].net/patientEd Enter M058 in the search box to learn more about Learning About Percutaneous Coronary Intervention. Current as of: September 05, 2018 Content Version: 12.3 5296-3313 [employer]. Care instructions adapted under license by your healthcare professional. If you have questions about a medical condition or this instruction, always ask your healthcare professional. [employer] disclaims any warranty or liability for your use of this information. ticagrelor Pronunciation: wendie arizmendi or Brand: Brilinta (ticagrelor) What is the most important information I should know about ticagrelor? You should not use ticagrelor if you have any active bleeding or a history of bleeding in the brain. Do not use this medicine just before heart bypass surgery. Ticagrelor may cause you to bleed more easily, which can be severe or life- threatening. Call your doctor or seek emergency medical attention if you have bleeding that will not stop, black or bloody stools, red or pink urine, or if you cough up blood or vomit that looks like coffee grounds. Tell your doctor about all your current medicines and any you start or stop using. Many drugs can interact with ticagrelor. Do not stop taking ticagrelor without first talking to your doctor, even if you have signs of bleeding. Stopping ticagrelor may increase your risk of a heart attack or stroke. What is ticagrelor? Ticagrelor prevents platelets in your blood from sticking together to form an unwanted blood clot that could block an artery. Ticagrelor is used together with aspirin to lower your risk of having a stroke or serious heart problems after you've had a heart attack or severe chest pain (angina). Ticagrelor may also be used for purposes not listed in this medication guide. What should I discuss with my healthcare provider before taking ticagrelor? You should not use ticagrelor if you are allergic to it, or if you have: any active bleeding; or a history of bleeding in the brain (such as from a head injury). Tell your doctor if you have ever had: a stroke; heart problems; a surgery or bleeding injury; bleeding problems; a stomach ulcer or colon polyps; liver disease; or asthma, COPD (chronic obstructive pulmonary disorder) or other breathing problem. It is not known whether this medicine will harm an unborn baby. Tell your doctor if you are or plan to become . You should not breast-feed while using ticagrelor. How should I take ticagrelor? Follow all directions on your prescription label and read all medication guides or instruction sheets. Ticagrelor is taken together with aspirin. Use these medicines exactly as directed. Do not take more aspirin than your doctor has prescribed. Taking too much aspirin can make ticagrelor less effective. Take ticagrelor at the same time each day, with or without food. If you cannot swallow a tablet whole, crush the pill and mix it with water. Stir and drink this mixture right away. Add more water to the glass, stir, and drink right away. Ticagrelor keeps your blood from coagulating (clotting) and can make it easier for you to bleed, even from a minor injury. Contact your doctor or seek emergency medical attention if you have any bleeding that will not stop. To prevent excessive bleeding, you may need to stop using ticagrelor for a short time before a surgery, medical procedure, or dental work. Any healthcare provider who treats you should know that you are taking ticagrelor. Do not stop taking ticagrelor without first talking to your doctor, even if you have signs of bleeding. Stopping the medicine could increase your risk of a heart attack or stroke. Store at room temperature away from moisture and heat. What happens if I miss a dose? Take the medicine as soon as you can, but skip the missed dose if it is almost time for your next dose. Do not take two doses at one time. What happens if I overdose? Seek emergency medical attention or call the Poison Help line at . Overdose can causeexcessive bleeding. What should I avoid while taking ticagrelor? Drinking alcohol while taking aspirin can increase your risk of stomach bleeding. Avoid activities that may increase your risk of bleeding or injury. Use extra care to prevent bleeding while shaving or brushing your teeth. While taking ticagrelor with aspirin, avoid using medicines for pain, fever, swelling, or cold/flu symptoms. They may contain ingredients similar to aspirin (such as salicylates, ibuprofen, ketoprofen, or naproxen). Taking certain products together can cause you to get too much aspirin which can increase your risk of bleeding. What are the possible side effects of ticagrelor? Get emergency medical help if you have signs of an allergic reaction: hives; difficult breathing; swelling of your face, lips, tongue, or throat. Call your doctor at once if you have: slow heartbeats; nosebleeds, or any bleeding that will not stop; shortness of breath even with mild exertion or while lying down; easy bruising, unusual bleeding, purple or red spots under your skin; red, pink, or brown urine; black, bloody, or tarry stools; or coughing up blood or vomit that looks like coffee grounds. Common side effects may include: bleeding; or shortness of breath. This is not a complete list of side effects and others may occur. Call your doctor for medical advice about side effects. You may report side effects to FDA at 2-487-VUS-6788. What other drugs will affect ticagrelor? Sometimes it is not safe to use certain medications at the same time. Some drugs can affect your blood levels of other drugs you take, which may increase side effects or make the medications less effective. Tell your doctor about all your current medicines. Many drugs can affect ticagrelor, especially: antifungal medicine; antiviral medicine to treat HIV or AIDS; a blood thinner; cholesterol medication; heart or blood pressure medication; opioid medication; seizure medicine; or tuberculosis medicine. This list is not complete and many other drugs may affect ticagrelor. This includes prescription and mqlu-ayh-hxoxypt medicines, vitamins, and herbal products. Not all possible drug interactions are listed here. Where can I get more information? Your pharmacist can provide more information about ticagrelor. Remember, keep this and all other medicines out of the reach of children, never share your medicines with others, and use this medication only for the indication prescribed. Every effort has been made to ensure that the information provided by [employer]. ('[employer]') is accurate, up-to-date, and complete, but no guarantee is made to that effect. Drug information contained herein may be time sensitive. [employer] information has been compiled for use by healthcare practitioners and consumers in the [place] and therefore [employer] does not warrant that uses outside of the [place] are appropriate, unless specifically indicated otherwise. [employer] drug information does not endorse drugs, diagnose patients or recommend therapy. [employer] drug information isan informational resource designed to assist licensed healthcare practitioners in caring for their p atients and/or to serve consumers viewing this service as a supplement to, and not a substitute for, the expertise, skill, knowledge and judgment of healthcare practitioners. The absence of a warningfor a given drug or drug combination in no way should be construed to indicate that the drug or drug combination is safe, effective or appropriate for any given patient. [employer] does not assume any responsibility for any aspect of healthcare administered with the aid of information [employer] provides. The information contained herein is not intended to cover all possible uses, directions, precautions, warnings, drug interactions, allergic reactions, or adverse effects. If you have questions about the drugs you are taking, check with your doctor, nurse or pharmacist. Copyright 0928-5457 [employer]. Version: 3.01. Revision date: 10/04/2017. Care instructions adapted under license by your healthcare professional. If you have questions about a medical condition or this instruction, always ask your healthcare professional. [employer], [facility] disclaims any warranty or liability for your use of this information. Learning About Benefits From Quitting Smoking How does quitting smoking make you healthier? If you're thinking about quitting smoking, you may have a few reasons to be smoke-free. Your healthmay be one of them. When you quit smoking, you lower your risks for cancer, lung disease, heart attack, stroke, blood vessel disease, and blindness from macular degeneration. When you're smoke-free, you get sick less often, and you heal faster. You are less likely to get colds, flu, bronchitis, and pneumonia. As a nonsmoker, you may find that your mood is better and you are less stressed. When and how will you feel healthier? Quitting has real health benefits that start from day 1 of being smoke-free. And the longer you stay smoke-free, the healthier you get and the better you feel. The first hours After just 20 minutes, your blood pressure and heart rate go down. That means there's less stress on your heart and blood vessels. Within 12 hours, the level of carbon monoxide in your blood drops back to normal. That makes room for more oxygen. With more oxygen in your body, you may notice that you have more energy than when you smoked. After 2 weeks Your lungs start to work better. Your risk of heart attack starts to drop. After 1 month When your lungs are clear, you cough less and breathe deeper, so it's easier to be active. Your sense of taste and smell return. That means you can enjoy food more than you have since you started smoking. Over the years After 1 year, your risk of heart disease is half what it would be if you kept smoking. After 5 years, your risk of stroke starts to shrink. Within a few years after that, it's about the same as if you'd never smoked. After 10 years, your risk of dying from lung cancer is cut by about half. And your risk for many other types of cancer is lower too. How would quitting help others in your life? When you quit smoking, you improve the health of everyone who now breathes in your smoke. Their heart, lung, and cancer risks drop, much like yours. They are sick less. For babies and small children, living smoke-free means they're less likely to have ear infections, pneumonia, and bronchitis. If you're a woman who is or will be someday, quitting smoking means a healthier . Children who are close to you are less likely to become adult smokers. Where can you learn more? Go to https://www.[employer]OMOO/patientEd Enter O319 in the search box to learn more about Learning About Benefits From Quitting Smoking. Current as of: November 30, 2018 Content Version: 12.3 0137-2117 [employer]. Care instructions adapted under license by your healthcare professional. If you have questions about a medical condition or this instruction, always ask your healthcare professional. [employer] disclaims any warranty or liability for your use of this information. documented in this encounter* Attachments The following attachments cannot be sent through Care Everywhere. * Chest Pain (Somali Uzbek) documented in this encounter* Attachments The following attachments cannot be sent through Care Everywhere. * Lacerations: Adhesives (S[place]i Uzbek) documented in this encounter* Attachments The following attachments cannot be sent through Care Everywhere. * Chest Pain (S[place] Uzbek) documented in this encounter* Attachments The following attachments cannot be sent through Care Everywhere. * Bite: Human (S[place] Uzbek) documented in this encounter* Instructions* Miladys Rizzo RN - 04/30/2020 Alcohol Detoxification and Withdrawal: Care Instructions Your Care Instructions If you drink alcohol regularly and then suddenly stop, you may go through some physical and emotional problems while the alcohol clears out of your system. Clearing the alcohol from your body is called detoxification, or detox. Physical and emotional problems that may happen during detox are calledwithdrawal. Symptoms of withdrawal can be scary and dangerous. Mild symptoms include nausea and vomiting, sweating, shakiness, and intense worry. Severe symptoms include being confused and irritable, feeling things on your body that are not there, seeing or hearing things that are not there, and trembling. Youmay even have seizures. If your symptoms become severe you must see a doctor. People who drink large amounts of alcohol should not try to detox at home. A person can of severe alcohol withdrawal. Symptoms of alcohol withdrawal may begin from 4 to 12 hours after you stop drinking. But they may not start for several days after the last drink. They can last a few days. It is hard to stop drinking. But when you have cleared the alcohol from your system, you will be able to start the next part of your life, free from the burden of being dependent. Follow-up care is a kulkarni part of your treatment and safety. Be sure to make and go to all appointments, and call your doctor if you are having problems. It's also a good idea to know your test resultsand keep a list of the medicines you take. How can you care for yourself at home? Before you stop drinking, talk to your doctor about how you plan to stop. Be sure to be completely honest with him or her about how much you have been drinking. Your doctor will figure out whether you need to detox in a supervised medical center. Take your medicines exactly as prescribed. Call your doctor if you think you are having a problem with your medicine. Make sure someone you trust is with you the whole time. Have friends and family members take turns staying with you until you are done with detox. Put a list of emergency numbers near the phone. This should include your doctor, the police, the nearest hospital and emergency room, and neighbors who can help if needed. Make sure all alcohol is removed from the house before you start. This includes beverages as well as medicines, rubbing alcohol, and certain flavorings like vanilla extract. Keep drinking buddies away during the time you are going through detox. Make your surroundings calm. Soft lights, soft music, and a comfortable place to sit or lie down can help make the process easier. Drink lots of fluids and eat snacks such as fruit, cheese and crackers, and pretzels. Foods high incarbohydrate may help reduce the craving for alcohol. Understand that detox is going to be hard. Keep in mind that the people watching over you during detox are there to help. Explain to them before you start that you may not act like yourself until detox is finished. Consider joining a support group such as Alcoholics Anonymous. Sharing your experiences with other people who face similar challenges may help you feel less overwhelmed. Keep the numbers for these national suicide hotlines: 8-616-531-TALK ( ) and 5-661-AHOMCNC ( ). If you or someone you know talks about suicide or feeling hopeless, get help right away. When should you call for help? Call 911 anytime you think you may need emergency care. For example, call if: You feel you cannot stop from hurting yourself or someone else. You vomit many times and cannot stop. You vomit blood or what looks like coffee grounds. You have trouble breathing or are breathing very fast. Your heart beats more than 120 times a minute and will not slow down. You have chest pain. You have a seizure. You see or feel things that are not there (hallucinate). If you are caring for someone who is going through detox, call if: The person passes out (loses consciousness). The person sees or feels things that are not there and sees or hears the same things many times. The person is very agitated and will not calm down. The person becomes violent or threatens to be violent. The person has a seizure. Call your doctor now or seek immediate medical care if: You have a high fever. You have severe belly pain. You are very shaky. Watch closely for changes in your health, and be sure to contact your doctor if: You do not get better as expected. Where can you learn more? Go to https://www.[employer].net/patientEd Enter D051 in the search box to learn more about Alcohol Detoxification and Withdrawal: Care Instructions. Current as of: November 26, 2019 Content Version: . [employer]. Care instructions adapted under license by your healthcare professional. If you have questions about a medical condition or this instruction, always ask your healthcare professional. [employer] disclaims any warranty or liability for your use of this information. Learning About MIKE Inhibitors What are MIKE inhibitors? MIKE (angiotensin-converting enzyme) inhibitors are medicines that lower blood pressure. They stop the release of an enzyme. This enzyme makes your blood vessels smaller. Without it, your blood vessels relax and get bigger. This lowers your blood pressure. These medicines also increase how much water and salt go into your urine. This also lowers blood pressure. You may take this kind of medicine if you have high blood pressure. Or you may take it if you have heart problems, kidney problems, or diabetes. If you have coronary artery disease, this medicine can help prevent heart attacks and strokes. Examples benazepril (Lotensin) enalapril (Vasotec) lisinopril (Prinivil, Zestril) ramipril (Altace) This is not a complete list. Possible side effects Side effects may include: A cough. Low blood pressure. This can make you feel dizzy or weak. Too much potassium in your body. Swelling of your lips, tongue, or face. If the swelling is severe, you may need treatment right away. Severe swelling can make it hard to breathe, but this is rare. You may have other side effects or reactions not listed here. Check the information that comes withyour medicine. What to know about taking this medicine MIKE inhibitors can cause a dry cough. Talk to your doctor if you have a dry cough. You may need a different medicine. These medicines can cause an allergic reaction. This can cause a little swelling. Or it can cause red bumps on your skin that hurt. In rare cases, the swelling may make it hard for you to breathe. Do not take this medicine if you are or plan to become . Take your medicines exactly as prescribed. Call your doctor if you think you are having a problem with your medicine. Check with your doctor or pharmacist before you use any other medicines. This includes [id number] medicines. Make sure your doctor knows all of the medicines, vitamins, herbal products, and supplements you take. Taking some medicines together can cause problems. You may need regular blood tests. Where can you learn more? Go to https://www.[employer].net/patientEd Enter P050 in the search box to learn more about Learning About MIKE Inhibitors. Current as of: May 14, 2019 Content Version: 12.6 [employer]. Care instructions adapted under license by your healthcare professional. If you have questions about a medical condition or this instruction, always ask your healthcare professional. [employer] disclaims any warranty or liability for your use of this information. documented in this encounter* Attachments The following attachments cannot be sent through Care Everywhere. * Abrasions (Somali Uzbek) documented in this encounter History of Present Illness * Arjun Leon NP - 05/15/2019 6:53 AM EST [facility]/2019 Yonathan Fernandez 1975 [id number] Assessment/Plan: Yonathan Fernandez is a 44 y.o. male with a history of HTN, HLD, nicotine dependence, alcohol abuse, who presented to [facility] 05/14/2019 with c/o acute chest pain. Pt states he woke up at 4:30 am with c/o left sided sharp pain, 6/10 in intensity nonradiating worse with deep breath, associated with SOB, dizziness and palpitation. Pt reports having constant chest pain. Pt reports chronic cough. Pt reports exertional dyspnea for 1 year. Pt had abnormal cardiac CTA on 11/2018, pt had normal echo on 12/15. Pt was initially admitted to observation, cardiology consulted, recommended card cath. 1. Unstable angina - Abnormal cardiac CTA on 11/2018 (total Agatston calcium score of 1416. The patient left AMA at that time). Cardiology has been consulted and is managing at this time. Plan for heart catheterization later today. Continue heparin drip and nitro drip Results for YONATHAN FERNANDEZ ( ) as of 05/15/2019 06:54 Ref. Range 05/14/2019 08:41 05/14/2019 11:01 05/14/2019 14:48 Troponin I Latest Ref Range: 0.000 - 0.033 ng/mL <0.012 <0.012 <0.012 2. Essential HTN - pressures well controlled; continue current meds 3. Nicotine dependence - Smoking cessation encouraged; NRT 4. Alcohol abuse - Monitor for alcohol withdrawal. On thiamine and folic acid. 5. HLD - continue statin therapy 6. DVT Prophylaxis - heparin drip. Current living situation: lives at home Expected Disposition: home Estimated discharge date: 24 hrs Subjective: Patient reports doing well overall today. No recurrences of chest pain since initiation of nitro drip. He states he is looking forward to getting to the bottom of this. No complaints at this time Physical Exam: Visit Vitals BP 103/63 Pulse 61 Temp 98 F (36.7 C) (Oral) Resp 18 Ht 5' 4 (1.626 m) Wt 62.1 kg (136 lb 14.4 oz) SpO2 97% BMI 23.50 kg/m General: NAD Eyes: EOMI ENT: neck supple Cardiovascular: Regular rate. Respiratory: Clear to auscultation Gastrointestinal: Soft, non tender Genitourinary: no suprapubic tenderness Musculoskeletal: No edema. Skin: warm, dry Neuro: Alert. Psych: Mood appropriate. Current Medications: Albuterol 2.5 mg Nebulization Q6H (resp) amitriptyline 75 mg Oral Nightly aspirin 81 mg Oral Daily atorvastatin 40 mg Oral Nightly [START ON 05/17/2019] ergocalciferol 50,000 Units Oral Q7 Days folic acid 1,000 mcg Oral Daily lisinopril 40 mg Oral Daily before lunch And hydroCHLOROthiazide 25 mg Oral Daily before lunch Metoprolol Tartrate 25 mg Oral 2x Daily nicotine 1 patch Transdermal every 24 hours pantoprazole 40 mg Oral Daily before dinner vitamin B-1 100 mg Oral Daily vitamin B-12 1,000 mcg Oral Daily Labs, Imaging and Studies reviewed: Recent Labs Lab 05/15/19 0320 05/14/19 1448 05/14/19 0841 HGB 15.1 16.2 16.7 HCT 43.8 47.4 48.6 PLT 195.0 211.0 234.0 Recent Labs Lab 05/14/19 0841 NA 140 K 4.1 CL 106 BUN 9 CREATININE 0.61* CALCIUM 9.0 No results for input(s): ALT, AST, ALKPHOS, BILITOT in the last 168 hours. Recent Labs Lab 05/14/19 1448 INR 1.03 * Tory Chawla APRN SAIL FINISHER MACHINE - 05/14/2019 2:07 PM EST Progress Note Hospital Day: 0 Principle Problem: <principal problem not specified> Assessment/Plan: Active Problems: Acute chest pain Plan for disposition Transfer to Higher Level of Care Disease course Fluctuating DVT Prophylaxis (From admission, onward) None All Active Lines: Patient Circulatory Lines Status Active PICC Line / CVC Line / PIV Line / Intraosseous Line / Epidural Line / ART Line / Line / Tunneled CVC / Port Name: Placement date: Placement time: Site: Days: Peripheral IV 05/14/19 Left Antecubital 18 G 05/14/19 0831 less than 1 Central Lines and Foleys with Indications of Use: * No LDAs found * Review of Systems Constitutional: Negative for chills, diaphoresis, fever, malaise/fatigue and weight loss. HENT: Negative for congestion, ear pain, nosebleeds, sinus pain and sore throat. Eyes: Negative for blurred vision, double vision and pain. Respiratory: Positive for shortness of breath. Negative for cough and sputum production. Cardiovascular: Positive for chest pain. Negative for palpitations and leg swelling. Gastrointestinal: Negative for abdominal pain, constipation, diarrhea, nausea and vomiting. Genitourinary: Negative for dysuria, frequency and urgency. Musculoskeletal: Negative for back pain, joint pain and myalgias. Skin: Negative for rash. Neurological: Negative for dizziness, speech change, loss of consciousness, weakness and headaches. Psychiatric/Behavioral: The patient is not nervous/anxious and does not have insomnia. Interval History: Patient does continue to complain of chest pain unchanged since arriving. Denies shortness of breath.. Patient was evaluated by Dr. Dubon who will take patient for cardiac catheterization tomorrow. She wishes for patient to be started on nitro drip as well as heparin drip. And nitro drip cannot be provided in the CDU patient will be transferred to observation on the floor. Objective: Vital signs in last 24 hours: Visit Vitals BP 160/86 (Patient Position: Sitting) Pulse 74 Temp 98.2 F (36.8 C) (Oral) Resp 18 Ht 5' 4 (1.626 m) Wt 62.1 kg (136 lb 14.4 oz) SpO2 92% BMI 23.50 kg/m . No intake/output data recorded. Physical Exam Constitutional: He is oriented to person, place, and time and well-developed, well-nourished, and in no distress. HENT: Head: Normocephalic. Right Ear: External ear normal. Left Ear: External ear normal. Nose: Nose normal. Mouth/Throat: Oropharynx is clear and moist. Eyes: Conjunctivae and EOM are normal. No scleral icterus. Neck: Normal range of motion. No JVD present. No tracheal deviation present. Cardiovascular: Normal rate, regular rhythm and normal heart sounds. Pulmonary/Chest: Effort normal and breath sounds normal. No stridor. No respiratory distress. Abdominal: Soft. Bowel sounds are normal. He exhibits no distension and no mass. There is no tenderness. There is no rebound and no guarding. Musculoskeletal: Normal range of motion. General: No edema. Neurological: He is alert and oriented to person, place, and time. No cranial nerve deficit. Coordination normal. Skin: Skin is warm and dry. He is not diaphoretic. Psychiatric: Mood, memory and affect normal. Nursing note and vitals reviewed. Tory Chawla APRN CNP This plan was discussed with patient and/or parent(s), questions were answered, the patient and or parent(s) appear to understand and agree with plan. Spoke with Dr. Dubon attending regarding patient. Physician to complete their own physicalexam and evaluation. Collaboration performed between this SAP TECHNICAL ARCHITECT and physician regarding patient's plan of care. The above report was generated using voice recognition software. It may contain grammatical, syntaxand spelling errors. documented in this encounter* Anahy Bradley MD - 04/29/2020 9:39 AM EST [facility] Medicine / [facility] Inpatient Progress Note 04/29/2020 Yonathan Fernandez [id number] Assessment/Plan: Yonathan Fernandez is a 44 y.o. male with a history of alcohol abuse who presented to [facility] 04/26/2020 for evaluation of impaired memory and delusional thoughts after eloping from [place] for treatmentof alcohol abuse and was found by a factory by [place] police department and placed on a writ for evaluation. 1. Acute delusional disorder: Likely secondary to alcohol withdrawal. continued writ of intermediate. Psych following, did not feel he needed inpt but suspected symptoms from withdrawal. 2. Acute alcohol withdrawal: Daily drinker, consumes several beers, liquor, and whisky. Continued Librium taper. with CIWA/PRN ativan and supportive care. No AMA 04/29/20. 3. Seizure: Witnessed per nursing staff on 04/27/2020 at around 0015. Secondary to alcohol withdrawal. * Treatment as discussed 4. Essential HTN: Pressures stable. meds titrated. 5. CAD: s/p PCI to pRCA and dRCA (04/2019). No evidence of cardiac symptoms. Continued home DAPT, statin, BB, and ACEi. 6. Nicotine dependence: Currently 1 PPD. Smoking cessation encouraged. NRT ordered 7. DVT Prophylaxis: SCDs Current living situation: Homess? Patient reported that he has his own place Expected Disposition: home pending withdrawl Estimated discharge date: TBD pending mental status Subjective: patient is new to me did not wake up to answer questions mumbled per RN still confused required haldol, discussed he is unsteady on his feet E sitter in room Physical Exam: Visit Vitals BP 105/73 (BP Location: Right arm, Patient Position: Sitting, Cuff Size: Medium) Pulse 81 Temp 98.1 F (36.7 C) (forehead) Resp 20 Ht 5' 4 (1.626 m) Wt 59 kg (130 lb) SpO2 96% BMI 22.31 kg/m General: NAD asleep but awoke Eyes: EOMI ENT: neck supple Cardiovascular: Regular rate. Respiratory: Clear to auscultation Gastrointestinal: Soft, non tender Musculoskeletal: No edema. Skin: warm, dry Neuro: Alert. Arouses to verbal cues answers to his name Psych: Asleep Current Medications: amitriptyline 75 mg Oral Nightly aspirin 81 mg Oral Daily atorvastatin 80 mg Oral Nightly chlordiazePOXIDE 25 mg Oral Q8H clopidogrel 75 mg Oral Daily folic acid 400 mcg Oral Daily gabapentin 300 mg Oral 3x Daily lisinopril 40 mg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 DETECTED CUTOFF 1.0 ng/mL Final Tox Message 04/26/2020 see below Final Urine Source 04/26/2020 Clean Catch Final Color 04/26/2020 Yellow Final Appearance Urine 04/26/2020 Clear Final Specific [place], Urine 04/26/2020 1.008 1.003 - 1.029 Final pH, Urine 04/26/2020 6.0 Final Protein, Ur 04/26/2020 Negative Negative mg/dL Final Glucose-Urine 04/26/2020 Negative Negative mg/dL Final Ketones 04/26/2020 Negative Negative mg/dL Final Occult Bld 04/26/2020 Negative Negative Final Urobilinogen, UA 04/26/2020 Negative <2.0 mg/dL Final Leukoesterase 04/26/2020 Negative Negative Final Nitrites 04/26/2020 Negative Negative Final Bilirubin, Urine 04/26/2020 Negative Negative Final WBC, UA 04/26/2020 1 0 - 5 /HPF Final RBC, UA 04/26/2020 1 0 - 5 /HPF Final Squamous Epi Cells 04/26/2020 2 /LPF Final Culture 04/26/2020 NOT INDICATED Final GFR 04/26/2020 >60 Final Objective: No data found. Mental Status Evaluation: APPEARANCE: Stated age. GROOMING: Casual. ATTITUDE: Cooperative and spontaneous. EYE CONTACT: Poor. SENSORIUM: Alert and oriented to time, place, and person. PSYCHOMOTOR MOVEMENTS: No agitation. No slowing. No abnormal movements noted. Gait steady. SPEECH: Normal in rate and volume. MOOD: Better AFFECT: Constricted. THOUGHT CONTENT: The patient denied suicidal ideation, denied any intent or plan. Denied any homicidal ideation, intent, or plan. The patient denied any delusions, or ideas of references. PERCEPTION: The patient denied any auditory or visual hallucinations. THOUGHT PROCESS: Goal directed. No loosening of association. Attention and concentration intact. MEMORY: Intact for recent and remote memory. FUND OF KNOWLEDGE: Average. INSIGHT: Fair. JUDGMENT: Fair. Diagnosis: Alcohol dependence with acute withdrawal Alcohol related psychosis Adjustment disorder Plan: Treatment options and alternatives reviewed with patient and they concur with the plan. Labs were reviewed. Patient doesn't need inpatient psychiatric treatment All his psychotic symptoms are probably related to alcohol Please arrange for a follow up at [facility]. Dawit Harden 04/28/2020 Too sedated to be seen documented in this encounter Nursing - Miladys Rizzo RN - 04/30/2020 3:00 PM ESTD/C Planning - Wendy Mccarty - 04/30/2020 2:48 PM ESTNursing - Miladys Rizzo RN - 04/30/2020 10:58 AM EST Miscellaneous Notes (unrecog nized section and content) Patient discharged. Patient is meeting [facility] at the discharge lobby SW arranged transportation through [facility] for dc. Address given for patient to be transported to [facility]. AM assessment complete. Patient keeps leaving his home to ask for phone numbers. Patient is asking about a lost wallet. The last day I worked he called [facility] and he told me they had it there. I tried to call [facility] to verify if his wallet and phone is there at their facility. I was unable to get a hold someone. I asked the patient about early this morning when he was trying to leave the patient said he had no memory of putting SCD pump into the pillow case and trying to leave with it. Patient walks out of room in his clothes, stating he has to check on his girlfriend. Staff are unable to redirect as he walks toward [address] [place] [address], security called and attempt to call elopement code made but borematic machine operator had to hang up to call a code red as this patient had pulled the fire alarm. Patient shortly returns with security and is found to be carrying the SCD pump from his room in a pillow case. Patient is agreeable to receive some PRN medication. Is easily reoriented to time, place and situation, but requiring the same reorientation a short time later. No other noted changes to assessment from previous. Patient yelling out, stating that he is sick of his bed alarm going off, and he wants to wear his own clothes, and is seen removing tele monitor. Patient asked to speak to security about his WRIT. Security in educating about the WRIT. Patient refusing PRN medication for anxiety, refusing tele, and allowed to wear his own clothes, after this nurse and security spoke with the patient he agrees to stay tonight and is apologetic for yelling and is agrees to getting the scheduled EKG done tonight. Pt agitated for hourly shift last night. Agitation on and off at this time. Called the doctor and received orders for halodol PRN Q6 for agitation. EKG orders for tonight also received. Will continue to monitor. Pt having delusions and hallucinations this morning after hourly shift nurse gave the pt ativan IV. Called [facility] doctor as the hospitalist did not answer the phone at this time. [facility] doctor gave us an order for halodol. For agitation. Pt slept until 12 pm and given daily medications at 12pm and helped to go to the bathroom. [facility]S still in the room. Focus assessment complete unchanged except less agitation and lower CIWA scores. No ativan given for CIWAs score. Will continue to monitor. Pt continues to be agitated at this time with continued hallucinations. Noticed that Ativan has not been as effective with him. Leny VALENCIA notifies DrLaurence And receives haldol 2.5 mg IV order. Pt having increased agitation and tremors. Unsteady, having hallucinations about trying to find some money he dropped in the bed. Re-directed and he stated he knows it's not there and doesn't know why he says and does those things. CIWA score of 16 and 3 mg IV ATivan given at this time as per order. Will continue to monitor for medication effectiveness,. Pt has not slept all night has been in and out of bed to a chair several times, called out for multiple drinks. Has had Ativan for his increased anxiety and agitation. He has remained pleasant and respectful but its very forgetful. Increased anxiety and agitation. Remains polite and respectful, but keeps wanting to get out of bed. Instructed to call out when he wants to get up to set in the chair, but will forget and 5 minutes later he is trying to get to the chair and the CVS is Alarming. Gave additional dose of Ativan and ambulated him in the farrell. He is unsteady on his feet and made the statement he didn't realize how wobbly he was. Will continue to monitor Pt having c/o of increased agitation and anxiety. Tremors are well noticeable with arms extended. Wanting to get oob and still unsteady on his feet. CVS remains. CIWA score of 10 and medicated with 2 mg PO Ativan as per protocol. Will continue to monitor for medication effectiveness. Pt restless in bed. A&O x 3. Disoriented to situation. Has his days and nights mixed up. He was thinking it was in the afternoon and asking why sandwiches were the only thing he is getting for his meals. I explained it was night time and kitchen not open at this time. He stated he thought something wasn't right. Wanting to call [facility] tomorrow to find his wallet and cell phone.Tremors noted and restless in bed. Voiced c/o of increased anxiety. Atarax 50 mg as per PRN order given at this time. Will continue to monitor for medication effectiveness. End of shift: Patient had several episodes of disorientation this shift with several requests to leave the unit to smoke. Reoriented and redirected patient. Gait very unsteady. Patient denies pain. X's 1 episode of hallucinations of seeing son in room play video games. Reoriented patient. No acute distress. Patient brought to the ED via [facility] for acute alcohol withdrawal and delusional disorder. Met with patient to discuss circumstances bringing him to the hospital. Writ of intermediate in patients hard chart. CVS present. Patient is awake and oriented x4. Patient reports I was acting stupid. It's hard to explain. Patient reports that he is feeling better since being in the hospital and that he is feeling better every day. Patient denies hallucinations. No delusional verb noted. Patient denies suicidal/homicidal ideations. Patient denies any outpatient psychiatric treatment. Reports being at [facility] x2 days but does not feel that it is a good fit for him. Feels they have too much of a amish base for him. Patient does feel that he needs continued help with this alcoholism. Patient identifies his mother, nephew and daughter as his support system. Denies any issues with sleep and appetite. Report to Dr Harden. Patient [facility] as [facility]. [phone]. Report provided to patients primary nurse. Patient drowsy this AM, CIWAs remain negative after IV ativan and haldol. Patient yelling out looking for cell phone in bed, when entering room patient states go ahead and call them to have the truck pulled around front. Dr. Whitaker notified regarding patients increased agitation and hallucinations. New orders received and entered. End of shift. Patient has been very drowsy this shift mostly during the AM. Patient did wake up in the afternoon and got a shower and was engaging appropiately. CIWAS was around a 6. Patient is on a Librium taper. Patient woke up and had been inconitent of urine. Patient was showered and bed was changed. Patient is still very drowsy and is sitting at bedside took afternoon meds and has a sack lunch at bedside. He still very shaky. This nurse in to speak with pt re circumstances bringing him into the hospital. Per nursing staff on unit, pt is sedated r/t seizure like activity overnight. Dr Boles updated with same. Pt resting in bed with eyes closed. Medications of haldol and ativan have been effective at this time. Will continue to monitor for additional signs of withdrawal also placing sitter at bedside for safety d/t his severe withdrawal and sedation. Haldol and ativan given at this time. MST staying in room with pt d/t his inability to stay in bed and follow commands. Will tavon=tinue to monitor for medication effectiveness. Agitation and hallucinations have increased and unable to reason with him. Dr. Mcbride notified and new orders placed for haldol 5mg IV x one and ativan 2 mg x one. Additional orders to include may repeat above medications if no imptrovement after 30 min. And if still no improvement 30 minutes after the second doses to give geodon 10 mg IM. Rapid Response Activation Upon arriving to pt's room primary RN and other staff at bedside. Pt had reportedly starting shaking and appeared to be having a seizure. Pt has a history of alcoholism. Slight shaking noted on my arrival pt opens eyes to command. Pt oriented to self only but is disoriented at times with active hallucinations. Pupils 4mm and equal, lung sounds clear bilaterally. 2mg ativan given per v/o of Dr. Gibson. SpO2 97% on RA, pt placed on continuous pulse ox and tele. Suction to be set up and bedside by primary RN. Will continue to monitor pt status. Making rounds in room and to fix telemetry box and found pt in chair holding a kleenex with blood on it. I asked if he was having a nose bleed and he stated he pulled out the IV because it wasn't being used for anything, but just to aggrevate him. I asked him to get into bed so that I could start a new IV. The MST came to the room to help and as he was trying to get into the bed, he began to shake and not responding to what we were saying to him. The shaking increased and he was letting out a very loud moaning. Rapid response was activated and pt was held gently to keep him for hurting himself. [facility] staff members, Last Waxer, RRRN, Dr. Mcbride arrived. IV obtained and 2 mg ativan given as per Dr. Mcbride verbal order. Pt calming down and convinced to lay back and rest. Pt brought the continuous pulse ox machine oput from his room stating that smoke was coming out of the back of it where the plug connects to it. I could not smell any smoke or indication that the device was defective. Device was not warm and wires are intact. We left the machine at the nurses station for pt comfort. Redirected and Ativan PO as per protocol given. Patient is insisting a cat is in his room and it caught a mouse then ran out of the room. Patient then proceeded to get a tissue and bend down and clean up the mouse carcass and throw it in the trash can. Will monitor because this is not how the patient has been acting. Patient has been scoring low on his CIWAS. Becomes a little anxious when telling the story of how he left [facility], but has been pleasant any other time. SW attempted to call number for patient's mother, . SW did not leave a message. Case Management (CM) has reviewed Early Screening for Discharge Planning (ESDP). Patient has been identified as low risk Patient chart has been reviewed. CM introduced self to patient, explained the role of CM and answered any questions. CM provided patient with contact information and patient is aware that they may request discharge planning at any time. No discharge planning needs identified at this time. Please contact/consult CM if needs arise, patient has a change in condition, or patient requests assistance with discharge planning. Patient states he lives alone in an apartment. He states he began drinking at age 12, drinking heavily since age 16. He reports he was drinking a pint of [employer] marla a day. 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 Patient states he didn't feel guilty or remorseful he was disappointment in himself. He reports he has been at [facility] since last Tuesday. He said he left . He said the place is horrible treated like juveniles. He said he is not going back. Patient's story does not make much sense regarding why he was brought to the hospital. Patient plans to return home and go to outpatient. SW left resources. 04/26/20 1506 Alcohol use Disorders Identification Test (AUDIT) 1. How often do you have a drink containing alcohol? 4 2. How many drinks containing alcohol do you have on a typical day when you are drinking? 4 3. How often do you have six or more drinks on one occasion? 4 4. How often during the last year have you found that you were not able to stop drinking once you had started? 3 5. How often during the last year have you failed to do what was normally expected of you because of drinking? 2 6. How often during the last year have you needed a drink in the morning to get yourself going after a heavy drinking session? 0 7. How often during the last year have you had a feeling of guilt or remorse after drinking? 0 8. How often during the last year have you been unable to remember what happened the night before because of your drinking? 0 9. Have you or someone else been injured because of your drinking? 0 10. Has a relative, friend or other health worker been concerned about your drinking or suggested you cut down? 4 AUDIT Score 21 Risk Level Zone IV Patient was inquiring about his belongs. He did not have cell phone, wallet, or ID cards and credit cards. He was sure he had them in th ED. I called the ED and spoke with someone who looked up his belongs while he was in the ED and was told they didn't have it down there and he didn't chart it with his belongs. Patient arrives to [address] [place] [address]. Walks to room on his own. Patient is alert and orient. Has been asking for food. Will notify [facility] doctor for diet order. documented in this encounter Scheduled Active and Recently Administ ered Medications (unrecognized section and content) Medication Order 11/18/2020 11/19/2020 11/20/2020 amitriptyline (ELAVIL) tablet 75 mg 75 mg, Oral, NIGHTLY, First dose on 11/16/20 at 2200, Until Discontinued 2150 (Given - Provider: Varsha Colon RN) 0005 (Not Given - Provider: Divine Franklin, ERIK - Reason: Patient/family refused)0908 (Given - Provider: Leny Tsang, ERIK)2200 (Due) aspirin EC EC tablet 81 mg 81 mg, Oral, DAILY, First dose on 11/16/20 at 0900, Until Discontinued 0849 (Given - Provider: Miladys Rizzo RN) 1030 (Given - Provider: Miladys Rizzo RN) 0907 (Given - Provider: Leny Tsang, RN) atorvastatin (LIPITOR) tablet 80 mg 80 mg, Oral, NIGHTLY, First dose on 11/16/20 at 2200, Until Discontinued 2150 (Given - Provider: Varsha Colon RN) 0005 (Not Given - Provider: Divine Franklin, ERIK - Reason: Patient/family refused)0 (Due) Certa-Kathrin (MULTIVITAMIN) liquid 5 mL 5 mL, Oral, DAILY, 5 doses, First dose on 11/16/20 at 0900, Last dose on Maye 11/20/20 at 0900 0903 (Given - Provider: Miladys Rizzo RN) 1040 (Given - Provider: Miladys Rizzo RN) 0907 (Given - Provider: Leny Tsang, ERIK) chlordiazePOXIDE (LIBRIUM) capsule 25 mg (COMPLETED) 25 mg, Oral, EVERY 8 HOURS SCHEDULED (3 times per day), 3 doses, First dose on Tue11/18/20 at 0600, Last dose on Tue11/18/20 at 2200 0849 (Given - Provider: Miladys Rizzo RN)1748 (Given - Provider: Miladys Rizzo RN)2151 (Given - Provider: Varsha Colon, ERIK) folic acid (FOLVITE) tablet 1 mg 1 mg, Oral, DAILY, First dose on Tue11/19/20 at 1145, Until Discontinued 2028 (Given - Provider: Miladys Rizzo RN) 0908 (Given - Provider: Leny Tsang, ERIK) folic acid (VITAMIN B9) 1 mg in sodium chloride 0.9 % 10 mL IV syringe (CANCELED) 1 mg, Intravenous, Administer over 1 Minutes, First dose on Tue11/16/20 at 0900, DAILY, 5 doses, Last dose on Tue11/20/20 at 0900, Administer over at least 1 minute 0902 (Given - Provider: Miladys Rizzo RN) 1130 (Canceled Entry - Provider: Miladys Rizzo RN) gabapentin (NEURONTIN) capsule 300 mg 300 mg, Oral, DAILY, First dose on Tue11/16/20 at 0900, Until Discontinued 0850 (Given - Provider: Miladys Rizzo RN) 1030 (Given - Provider: Miladys Rizzo RN) 0907 (Given - Provider: Leny Tsang, ERIK) hydroCHLOROthiazide (HYDRODIURIL) tablet 25 mg(Linked Group 1) 25 mg, Oral, DAILY BEFORE LUNCH, First dose on Tue11/16/20 at 1100, Until Discontinued, Give with lisinopril 1356 (Not Given - Provider: Miladys Rizzo RN - Reason: Patient/family refused) 1030 (Given - Provider: Miladys Rizzo RN) 1008 (Given - Provider: Leny Tsang, ERIK) levETIRAcetam (KEPPRA) tablet 500 mg 500 mg, Oral, TWO TIMES A DAY, First dose on Tue11/16/20 at 0600, Until Discontinued, Caution: Do not crush or chew due to taste. 0429 (Given - Provider: Varsha Colon RN - Comment: per pt request)1748 (Given - Provider: Miladys Rizzo RN) 0642 (Given - Provider: Varsha Colon RN)2028 (Given - Provider: Miladys Rizzo RN) 0553 (Given - Provider: Divine Franklin, ERIK)1800 (Due) lisinopril (PRINIVIL,ZESTRIL) tablet 40 mg(Linked Group 1) 40 mg, Oral, DAILY BEFORE LUNCH, First dose on 11/16/20 at 1100, Until Discontinued, Give with hydrochlorothiazide 1355 (Not Given - Provider: Miladys Rizzo RN - Reason: Patient/family refused) 1030 (Given - Provider: Miladys Rizzo RN) 0907 (Given - Provider: Leny Tsang, RN) Magnesium Oxide (MAG-OX) tablet 400 mg 400 mg, Oral, DAILY, First dose on 11/16/20 at 0900, Until Discontinued 0849 (Given - Provider: Miladys Rizzo RN) 1030 (Given - Provider: Miladys Rizzo RN) 0907 (Given - Provider: Leny Tsang RN) Metoprolol Tartrate (LOPRESSOR) tablet 25 mg 25 mg, Oral, TWO TIMES A DAY, First dose on 11/16/20 at 0600, Until Discontinued, Caution: This medication looks and/or sounds like another medication. 0849 (Given - Provider: Miladys Rizzo RN)1748 (Given - Provider: Miladys Rizzo RN) 0642 (Given - Provider: Varsha Colon RN)2028 (Given - Provider: Miladys Rizzo RN) 0458 (Not Given - Provider: Divine Franklin, ERIK - Reason: Patient/family refused)1800 (Due) nicotine (NICODERM CQ) 21 MG/24HR 1 patch 1 patch (21 mg), Transdermal, EVERY 24 HOURS SCHEDULED (Daily), First dose on 11/16/20 at 0900, Until Discontinued 0848 (Patch Applied - Provider: Miladys Rizzo RN) 1042 (Not Given - Provider: Miladys Rizzo RN - Reason: Patient/family refused)1043 (Not Given - Provider: Miladys Rizzo RN - Reason: Patient/family refused) 0006 (Not Given - Provider: Divine Franklin RN - Reason: Patient/family refused)0908 (Patch Applied - Provider: Leny Tsang, RN) pantoprazole (PROTONIX) EC tablet 40 mg 40 mg, Oral, DAILY, First dose on 11/16/20 at 0900, Until Discontinued, Caution: Do not crush or chew. 0849 (Given - Provider: Miladys Rizzo RN) 202 (Given - Provider: Miladys Rizzo RN) 0908 (Given - Provider: Leny Tsang RN) potassium chloride SA (K-DUR,KLOR-CON M20) CR tablet 40 mEq 40 mEq, Oral, DAILY, First dose on 11/16/20 at 0900, Until Discontinued, Caution: Do not crush or chew. Exception - Oral Solution: dissolve dose in 120 mL water, let sit for 2 minutes, then stir for 30 seconds to ensure all is dissolved and mixed and have patient drink. To ensure administration add 30 mL to cup, swirl, and have patient drink. 0848 (Given - Provider: Miladys Rizzo RN) 1030 (Given - Provider: Miladys Rizzo RN) 0907 (Given - Provider: Leny Tsang, ERIK) thiamine (VITAMIN B1) 100 mg in sodium chloride 0.9 % 5 mL IV syringe (CANCELED) 100 mg, Intravenous, at 60 mL/hr, DAILY, 5 doses, First dose on 11/16/20 at 0900, Last dose on Maye 11/20/20 at 0900, IV syringe must be administered over at least 5 minutes. 0902 (Given - Provider: Miladys Rizzo RN) 1132 (Canceled Entry - Provider: Miladys Rizzo RN) thiamine (VITAMIN B1) 500 mg in sodium chloride 0.9 % 50 mL IVPB (CANCELED) 500 mg, Intravenous, at 100 mL/hr, 3 TIMES DAILY, 6 doses, First dose on Tue11/19/20 at 1700, Last dose on Tue11/21/20 at 0600 2042 (New Bag - Provider: Miladys Rizzo RN)2045 (Canceled Entry - Provider: Miladys Rizzo RN - Comment: medications statrted 2042) 0558 (New Bag - Provider: Divine Franklin RN) PRN Medication Order 11/18/2020 11/19/2020 11/20/2020 acetaminophen (TYLENOL) tablet 325 mg 325 mg, Oral, EVERY 4 HOURS PRN, Mild Pain, Starting on 11/16/20 at 0133, Until Discontinued, Maximum dose of acetaminophen is 4000 mg from all sources in 24 hours. Albuterol nebulizer soln 2.5 mg 2.5 mg, Nebulization, EVERY 4 HOURS PRN, Wheezing and/or Shortness of breath, Starting on 11/16/20 at 0129, Until Discontinued, Is patient suspected or confirmed to have COVID-19? No aluminum-magnesium hydroxide 200-200 MG/5ML suspension 30 mL 30 mL, Oral, EVERY 6 HOURS PRN, Indigestion, Starting on 11/16/20 at 0131, Until Discontinued calcium carbonate (TUMS) chewable tablet 1,000 mg 1,000 mg, Oral, EVERY 4 HOURS PRN, Heartburn, Starting on 11/16/20 at 0131, Until Discontinued cloNIDine (CATAPRES) tablet 0.1 mg 0.1 mg, Oral, EVERY 2 HOURS PRN, High Blood Pressure (specify):, sweats/anxiety/restlessness /muscle pain/GI symptoms, Starting on 11/16/20 at 1131, Until Discontinued, Caution: This medication looks and/or sounds like another medication. dicyclomine (BENTYL) tablet 20 mg 20 mg, Oral, EVERY 6 HOURS PRN, for abdominal discomfort, Starting on 11/16/20 at 1131, Until Discontinued For electrolyte abnormalities subsequent to initial labs (refer to the [facility] Electrolyte Replacement Orders) Other, DAILY PRN, For electrolyte abnormalities, Starting on 11/16/20 at 0133, Until Discontinued, For Potassium level <=3.9 or Magnesium level <=2.0, please use Order Set #100 to order medications and repeat labs. hydrALAZINE (APRESOLINE) injection 10 mg 10 mg, Intravenous, EVERY 6 HOURS PRN, High Blood Pressure (specify):, SBP >180 or DBP >100, Starting on 11/16/20 at 0425, Until Discontinued, Caution: This medication looks and/or sounds like another medication. hydrOXYzine (ATARAX) tablet 50 mg 50 mg, Oral, EVERY 6 HOURS PRN, Anxiety, Starting on 11/16/20 at 0130, Until Discontinued 0032 (Given - Provider: Varsha Colon RN) LORazepam (ATIVAN) tablet 2-4 mg(Linked Group 2) 2-4 mg, Oral, EVERY 1 HOUR PRN, Withdrawal, Starting on 11/16/20 at 0041, Until Discontinued, CIWA score 8-14 = 2mg CIWA score 15-20 = 3mg CIWA score > 20 = 4mg If patient is able to tolerate PO - give med PO; if patient unable to tolerate PO and has IV, give med IV; if patient unable to tolerate PO and has no IV, give med IM 0424 (See Alternative - Provider: Varsha Colon RN)1019 (Not Given - Provider: Miladys Rizzo RN - Reason: Patient/family refused - Comment: Patient refused)1033 (See Alternative - Provider: Miladys Rizzo RN) 0006 (Canceled Entry - Provider: Divine Franklin RN)0056 (See Alternative - Provider: Divine Franklin, ERIK) LORazepam injection 2-4 mg(Linked Group 2) 2-4 mg, Intramuscular, EVERY 1 HOUR PRN, Withdrawal, Starting on 11/16/20 at 0041, Until Discontinued, CIWA score 8-14 = 2mg CIWA score 15-20 = 3mg CIWA score > 20 = 4mg If patient is able to tolerate PO - give med PO; if patient unable to tolerate PO and has IV, give med IV; if patient unable to tolerate PO and has no IV, give med IM For IV use: dilute in equal volume of NaCl 0.9% or Dextrose 5% 0424 (See Alternative - Provider: Varsha Colon RN)1019 (See Alternative - Provider: Miladys Rizzo RN)1033 (See Alternative - Provider: Miladys Rizzo RN) 0006 (See Alternative - Provider: Divine Franklin, ERIK)0056 (See Alternative - Provider: Divine Franklin, ERIK) LORazepam injection 2-4 mg(Linked Group 2) 2-4 mg, IV Push, EVERY 1 HOUR PRN, Withdrawal, Starting on 11/16/20 at 0041, Until Discontinued, CIWA score 8-14 = 2mg CIWA score 15-20 = 3mg CIWA score > 20 = 4mg If patient is able to tolerate PO - give med PO; if patient unable to tolerate PO and has IV, give med IV; if patient unable to tolerate PO and has no IV, give med IM For IV use: dilute in equal volume of NaCl 0.9% or Dextrose 5% 0424 (Given - Provider: Varsha Colon, RN)1019 (See Alternative - Provider: Miladys Rizzo, RN)1033 (Given - Provider: Miladys Rizzo RN) 0006 (See Alternative - Provider: Divine Franklin, RN)0056 (Given - Provider: Divine Franklin, RN) methocarbamol (ROBAXIN) tablet 750 mg 750 mg, Oral, EVERY 6 HOURS PRN, Muscle spasms, muscle aches, Starting on 11/16/20 at 1131, Until Discontinued 0031 (Given - Provider: Varsha Colon RN) nicotine polacrilex (COMMIT) lozenge 4 mg 4 mg, Oral, PRN, Smoking cessation, Starting on 11/16/20 at 0131, Until Discontinued, Caution: Do not crush or chew. Ondansetron (ZOFRAN-ODT) disintegrating tablet 4 mg(Linked Group 3) 4 mg, Oral, EVERY 6 HOURS PRN, Nausea and/or Vomiting, Starting on 11/16/20 at 0131, Until Discontinued ondansetron hcl (ZOFRAN) injection 4 mg(Linked Group 3) 4 mg, IV Push, EVERY 6 HOURS PRN, Nausea and/or Vomiting, For nausea or vomiting unrelieved by oral Zofran after 30 minutes or if unable to tolerate oral intake, Starting on 11/16/20 at 0131, Until Discontinued, Caution: This medication looks and/or sounds like another medication. polyethylene glycol 3350 (GLYCOLAX, MIRALAX) packet 17 g 17 g, Oral, DAILY PRN, Constipation, constipation, Starting on 11/16/20 at 0131, Until Discontinued, This is a maintenance laxative, begin for prevention of constipation. Linked Groups Order Group 1: lisinopril (PRINIVIL,ZESTRIL) tablet 40 mgJump to med 40 mg, Oral, DAILY BEFORE LUNCH, First dose on 11/16/20 at 1100, Until Discontinued
Give with hydrochlorothiazide
And hydroCHLOROthiazide (HYDRODIURIL) tablet 25 mgJump to med 25 mg, Oral, DAILY BEFORE LUNCH, First dose on 11/16/20 at 1100, Until Discontinued
Give with lisinopril
Group 2: LORazepam (ATIVAN) tablet 2-4 mgJump to med 2-4 mg, Oral, EVERY 1 HOUR PRN, Withdrawal, Starting on 11/16/20 at 0041, Until Discontinued
CIWA score 8-14 = 2mg CIWA score 15-20 = 3mg CIWA score > 20 = 4mg If patient is able to tolerate PO - give med PO; if patient unable to tolerate PO and has IV, give med IV; if patient unable to tolerate PO and has no IV, give med IM
Or LORazepam injection 2-4 mgJump to med 2-4 mg, Intramuscular, EVERY 1 HOUR PRN, Withdrawal, Starting on 11/16/20 at 0041, Until Discontinued
CIWA score 8-14 = 2mg CIWA score 15-20 = 3mg CIWA score > 20 = 4mg If patient is able to tolerate PO - give med PO; if patient unable to tolerate PO and has IV, give med IV; if patient unable to tolerate PO and has no IV, give med IM For IV use: dilute in equal volume of NaCl 0.9% or Dextrose 5%
Or LORazepam injection 2-4 mgJump to med 2-4 mg, IV Push, EVERY 1 HOUR PRN, Withdrawal, Starting on 11/16/20 at 0041, Until Discontinued
CIWA score 8-14 = 2mg CIWA score 15-20 = 3mg CIWA score > 20 = 4mg If patient is able to tolerate PO - give med PO; if patient unable to tolerate PO and has IV, give med IV; if patient unable to tolerate PO and has no IV, give med IM For IV use: dilute in equal volume of NaCl 0.9% or Dextrose 5%
Group 3: Ondansetron (ZOFRAN-ODT) disintegrating tablet 4 mgJump to med 4 mg, Oral, EVERY 6 HOURS PRN, Nausea and/or Vomiting, Starting on Tue11/16/20 at 0131, Until Discontinued Or ondansetron hcl (ZOFRAN) injection 4 mgJump to med 4 mg, IV Push, EVERY 6 HOURS PRN, Nausea and/or Vomiting, For nausea or vomiting unrelieved by oral Zofran after 30 minutes or if unable to tolerate oral intake, Starting on 11/16/20 at 0131, Until Discontinued
Caution: This medication looks and/or sounds like another medication.
Scheduled Medication Order 01/04/2021 01/05/2021 01/06/2021 amitriptyline (ELAVIL) tablet 75 mg 75 mg, Oral, NIGHTLY, First dose on Tue12/29/20 at 2200, Until Discontinued 2143 (Given - Provider: Eloy Contreras LPN) 2158 (Given - Provider: Turner Han RN) 2199 (Due) aspirin EC EC tablet 81 mg 81 mg, Oral, DAILY, First dose on Tue12/29/20 at 0900, Until Discontinued 841 (Given - Provider: Chelsea Dow RN) 0743 (Given - Provider: Roxanne Nicole, ERIK) 0951 (Given - Provider: Alda Foster, ERIK) atorvastatin (LIPITOR) tablet 80 mg 80 mg, Oral, NIGHTLY, First dose on Tue12/29/20 at 2200, Until Discontinued 2144 (Given - Provider: Eloy Contreras LPN) 2158 (Given - Provider: Turner Han, ERIK) 2199 (Due) clopidogrel (PLAVIX) tablet 75 mg 75 mg, Oral, DAILY, First dose on Tue12/29/20 at 0900, Until Discontinued 841 (Given - Provider: Chelsea Dow RN) 0744 (Given - Provider: Roxanne Nicole RN) 0951 (Given - Provider: Alda Foster RN) enoxaparin (LOVENOX) injection 40 mg 40 mg, Subcutaneous, DAILY, First dose on Tue01/05/21 at 1545, Until Discontinued 1552 (Given - Provider: Roxanne Nicole RN) 0952 (Given - Provider: Alda Foster, ERIK) folic acid (FOLVITE) tablet 1 mg 1 mg, Oral, DAILY, First dose on Tue12/29/20 at 0900, Until Discontinued 0841 (Given - Provider: Chelsea Dow RN) 0744 (Given - Provider: Roxanne Nicole RN) 0951 (Given - Provider: Alda Foster RN) gabapentin (NEURONTIN) capsule 300 mg 300 mg, Oral, 3 TIMES DAILY, First dose on Tue12/28/20 at 2245, Until Discontinued 0625 (Given - Provider: Marta Cook LPN)1335 (Given - Provider: Chelsea Dow RN)2145 (Given - Provider: Eloy Contreras LPN) 0430 (Given - Provider: Eloy Contreras LPN)1512 (Given - Provider: Roxanne Nicole RN)2159 (Given - Provider: Turner Han RN) 0602 (Given - Provider: Yasmeen Knight RN)1400 (Due)2200 (Due) hydroCHLOROthiazide (HYDRODIURIL) tablet 25 mg(Linked Group 1) 25 mg, Oral, DAILY BEFORE LUNCH, First dose on Tue12/29/20 at 1100, Until Discontinued, Give with lisinopril 1134 (Given - Provider: Chelsea Dow RN) 1311 (Not Given - Provider: Roxanne Nicole RN - Reason: Other - Comment: BP 88/50) 1130 (Given - Provider: Alda Foster RN) levETIRAcetam (KEPPRA) tablet 500 mg 500 mg, Oral, TWO TIMES A DAY, First dose on Tue12/29/20 at 0600, Until Discontinued, Caution: Do not crush or chew due to taste. 0625 (Given - Provider: Marta Cook LPN)1718 (Given - Provider: Chelsea Dow RN) 0430 (Given - Provider: Eloy Contreras LPN)1720 (Given - Provider: Roxanne Nicole RN) 0602 (Given - Provider: Yasmeen Knight RN)1800 (Due) lisinopril (PRINIVIL,ZESTRIL) tablet 40 mg(Linked Group 1) 40 mg, Oral, DAILY BEFORE LUNCH, First dose on Tue12/29/20 at 1100, Until Discontinued, Give with hydrochlorothiazide 1134 (Given - Provider: Chelsea Dow RN) 1310 (Not Given - Provider: Roxanne Nicole RN - Reason: Order parameters not met - Comment: BP 88/50) 1129 (Given - Provider: Alda Foster RN) Magnesium Oxide (MAG-OX) tablet 400 mg 400 mg, Oral, TWO TIMES A DAY, First dose (after last modification) on Tue01/03/21 at 1800, Until Discontinued 0625 (Given - Provider: Marta Cook LPN)171 (Given - Provider: Chelsea Dow RN) 043 (Given - Provider: Eloy Contreras LPN)1720 (Given - Provider: Roxanne Nicole RN) 0602 (Given - Provider: Yasmeen Knight RN)1800 (Due) Magnesium Sulfate 2g/50ml IVPB 2 g (COMPLETED) 2 g, Intravenous, Administer over 60 Minutes, On Tue01/05/21 at 0815, ONCE, 1 dose, If magnesium 1.5-2.0 Repeat magnesium level in AM 0752 (New Bag - Provider: Roxanne Nicole RN) Metoprolol Tartrate (LOPRESSOR) tablet 25 mg 25 mg, Oral, TWO TIMES A DAY, First dose on Tue12/29/20 at 0600, Until Discontinued, Caution: This medication looks and/or sounds like another medication. 0625 (Given - Provider: Marta Cook LPN)1718 (Given - Provider: Chelsea Dow RN) 0430 (Given - Provider: Eloy Contreras LPN)1819 (Not Given - Provider: Roxanne Nicole RN - Reason: For Procedure - Comment: Stress test tomorrow) 0600 (Canceled Entry - Provider: Turner Han RN - Comment: stress)1800 (Due) nicotine (NICODERM CQ) 21 MG/24HR 1 patch 1 patch (21 mg), Transdermal, EVERY 24 HOURS SCHEDULED (Daily), First dose on Tue12/29/20 at 0900, Until Discontinued 0843 (Patch Removed - Provider: Chelsea Dow RN)0844 (Patch Applied - Provider: Chelsea Dow RN) 0742 (Patch Removed - Provider: Roxanne Nicole RN)0743 (Patch Applied - Provider: Roxanne Nicole RN) 0951 (Patch Removed - Provider: Alda Foster RN)0953 (Patch Applied - Provider: Alda Foster RN) pantoprazole (PROTONIX) EC tablet 40 mg 40 mg, Oral, DAILY, First dose on Tue12/29/20 at 0900, Until Discontinued, Caution: Do not crush or chew. 0842 (Given - Provider: Chelsea Dow RN) 0744 (Given - Provider: Roxanne Nicole RN) 0952 (Given - Provider: Alda Foster RN) potassium chloride SA (K-DUR,KLOR-CON M20) CR tablet 20 mEq (COMPLETED) 20 mEq, Oral, ONCE, 1 dose, On Tue01/04/21 at 0830, If potassium level 3.7-3.9 Repeat potassium in AM 0842 (Given - Provider: Chelsea Dow RN) potassium chloride SA (K-DUR,KLOR-CON M20) CR tablet 40 mEq 40 mEq, Oral, DAILY, First dose on Tue12/29/20 at 0900, Until Discontinued, Caution: Do not crush or chew. Exception - Oral Solution: dissolve dose in 120 mL water, let sit for 2 minutes, then stir for 30 seconds to ensure all is dissolved and mixed and have patient drink. To ensure administration add 30 mL to cup, swirl, and have patient drink. 0843 (Given - Provider: Chelsea Dow RN) 0743 (Given - Provider: Roxanne Nicole RN) 0951 (Given - Provider: Alda Foster RN) thera m plus tablet 1 tablet 1 tablet, Oral, DAILY, First dose on Tue12/30/20 at 0900, Until Discontinued 0842 (Given - Provider: Chelsea Dow RN) 0744 (Given - Provider: Roxanne Nicole RN) 0951 (Given - Provider: Alda Foster RN) Thiamine Mononitrate (VITAMIN B-1) tablet 100 mg 100 mg, Oral, DAILY, First dose on Tue12/30/20 at 0900, Until Discontinued 0841 (Given - Provider: Chelsea Dow RN) 0743 (Given - Provider: Roxanne Nicole, ERIK) 0952 (Given - Provider: Alda Foster, ERIK) vitamin B-12 (CYANOCOBALAMIN) tablet 1,000 mcg 1,000 mcg, Oral, DAILY, First dose on Tue12/29/20 at 0900, Until Discontinued 0841 (Given - Provider: Chelsea Dow RN) 0744 (Given - Provider: Roxanne Nicole RN) 0952 (Given - Provider: Alda Foster, ERIK) Continuous Medication Order 01/04/2021 01/05/2021 01/06/2021 0.9% NaCl infusion (CANCELED) 1,000 mL, Intravenous, at 100 mL/hr, CONTINUOUS, Starting on Tue12/29/20 at 0145, Until Tue01/05/21 at 0909 1158 (New Bag - Provider: Chelsea Dow RN)2144 (New Bag - Provider: Eloy Contreras LPN) 1010 (Stopped - Provider: Roxanne Nicole RN) PRN Medication Order 01/04/2021 01/05/2021 01/06/2021 acetaminophen (TYLENOL) tablet 650 mg 650 mg, Oral, EVERY 4 HOURS PRN, Mild Pain, Starting on 12/28/20 at 2210, Until Discontinued, Maximum dose of acetaminophen is 4000 mg from all sources in 24 hours. Albuterol nebulizer soln 2.5 mg 2.5 mg, Nebulization, EVERY 2 HOURS PRN, Wheezing and/or Shortness of breath, Starting on 12/28/20 at 2210, Until Discontinued, Is patient suspected or confirmed to have COVID-19? No aluminum-magnesium hydroxide 200-200 MG/5ML suspension 30 mL 30 mL, Oral, EVERY 6 HOURS PRN, Indigestion, Starting on 12/28/20 at 2210, Until Discontinued calcium carbonate (TUMS) chewable tablet 1,000 mg 1,000 mg, Oral, EVERY 4 HOURS PRN, Heartburn, Starting on Tue12/28/20 at 2210, Until Discontinued For electrolyte abnormalities subsequent to initial labs (refer to the [facility] Electrolyte Replacement Orders) Other, DAILY PRN, For electrolyte abnormalities, Starting on 12/28/20 at 2210, Until Discontinued, For Potassium level <=3.9 or Magnesium level <=2.0, please use Order Set #100 to order medications and repeat labs. hydrOXYzine (ATARAX) tablet 50 mg 50 mg, Oral, EVERY 6 HOURS PRN, Anxiety, for MILD anxiety- patient reported anxiety 1-4, Starting on 12/28/20 at 2209, Until Discontinued LORazepam (ATIVAN) tablet 2-4 mg(Linked Group 2) 2-4 mg, Oral, EVERY 1 HOUR PRN, Withdrawal, Starting on 12/28/20 at 2212, Until Discontinued, CIWA score 8-14 = 2mg CIWA score 15-20 = 3mg CIWA score > 20 = 4mg If patient is able to tolerate PO - give med PO; if patient unable to tolerate PO and has IV, give med IV; if patient unable to tolerate PO and has no IV, give med IM LORazepam injection 2-4 mg(Linked Group 2) 2-4 mg, Intramuscular, EVERY 1 HOUR PRN, Withdrawal, Starting on 12/28/20 at 2212, Until Discontinued, CIWA score 8-14 = 2mg CIWA score 15-20 = 3mg CIWA score > 20 = 4mg If patient is able to tolerate PO - give med PO; if patient unable to tolerate PO and has IV, give med IV; if patient unable to tolerate PO and has no IV, give med IM For IV use: dilute in equal volume of NaCl 0.9% or Dextrose 5% LORazepam injection 2-4 mg(Linked Group 2) 2-4 mg, IV Push, EVERY 1 HOUR PRN, Withdrawal, Starting on 12/28/20 at 2212, Until Discontinued, CIWA score 8-14 = 2mg CIWA score 15-20 = 3mg CIWA score > 20 = 4mg If patient is able to tolerate PO - give med PO; if patient unable to tolerate PO and has IV, give med IV; if patient unable to tolerate PO and has no IV, give med IM For IV use: dilute in equal volume of NaCl 0.9% or Dextrose 5% nicotine polacrilex (COMMIT) lozenge 4 mg 4 mg, Oral, PRN, Smoking cessation, Starting on 12/28/20 at 2210, Until Discontinued, Caution: Do not crush or chew. ondansetron hcl (ZOFRAN) injection 4 mg 4 mg, IV Push, EVERY 6 HOURS PRN, Nausea, Vomiting, Starting on 12/28/20 at 2210, Until Discontinued, Caution: This medication looks and/or sounds like another medication. Linked Groups Order Group 1: lisinopril (PRINIVIL,ZESTRIL) tablet 40 mgJump to med 40 mg, Oral, DAILY BEFORE LUNCH, First dose on Tue12/29/20 at 1100, Until Discontinued
Give with hydrochlorothiazide
And hydroCHLOROthiazide (HYDRODIURIL) tablet 25 mgJump to med 25 mg, Oral, DAILY BEFORE LUNCH, First dose on Tue12/29/20 at 1100, Until Discontinued
Give with lisinopril
Group 2: LORazepam (ATIVAN) tablet 2-4 mgJump to med 2-4 mg, Oral, EVERY 1 HOUR PRN, Withdrawal, Starting on Tue12/28/20 at 2212, Until Discontinued
CIWA score 8-14 = 2mg CIWA score 15-20 = 3mg CIWA score > 20 = 4mg If patient is able to tolerate PO - give med PO; if patient unable to tolerate PO and has IV, give med IV; if patient unable to tolerate PO and has no IV, give med IM
Or LORazepam injection 2-4 mgJump to med 2-4 mg, Intramuscular, EVERY 1 HOUR PRN, Withdrawal, Starting on Tue12/28/20 at 2212, Until Discontinued
CIWA score 8-14 = 2mg CIWA score 15-20 = 3mg CIWA score > 20 = 4mg If patient is able to tolerate PO - give med PO; if patient unable to tolerate PO and has IV, give med IV; if patient unable to tolerate PO and has no IV, give med IM For IV use: dilute in equal volume of NaCl 0.9% or Dextrose 5%
Or LORazepam injection 2-4 mgJump to med 2-4 mg, IV Push, EVERY 1 HOUR PRN, Withdrawal, Starting on Tue12/28/20 at 2212, Until Discontinued
CIWA score 8-14 = 2mg CIWA score 15-20 = 3mg CIWA score > 20 = 4mg If patient is able to tolerate PO - give med PO; if patient unable to tolerate PO and has IV, give med IV; if patient unable to tolerate PO and has no IV, give med IM For IV use: dilute in equal volume of NaCl 0.9% or Dextrose 5%
Scheduled Medication Order 02/20/2021 02/21/2021 02/22/2021 aspirin EC EC tablet 81 mg 81 mg, Oral, DAILY, First dose on Tue02/17/21 at 0900, Until Discontinued 0908 (Given - Provider: Hilda Sorensen RN) 09 (Given - Provider: Flip Herrera RN) 08 (Given - Provider: Flip Herrera, ERIK) atorvastatin (LIPITOR) tablet 80 mg 80 mg, Oral, NIGHTLY, First dose on Tue02/17/21 at 0041, Until Discontinued 2300 (Given - Provider: Jas Ojeda, RN) 222 (Given - Provider: Jas Ojeda RN) 2200 (Due) clopidogrel (PLAVIX) tablet 75 mg 75 mg, Oral, DAILY, First dose on Tue02/17/21 at 0900, Until Discontinued 09 (Given - Provider: Hilda Sorensen RN) 09 (Given - Provider: Flip Herrera, ERIK) 08 (Given - Provider: Flip Herrera, ERIK) enoxaparin (LOVENOX) injection 40 mg 40 mg, Subcutaneous, DAILY, First dose on Tue02/21/21 at 1300, Until Discontinued 1243 (Given - Provider: Flip Herrera, ERIK) 08 (Given - Provider: Flip Herrera, RN) folic acid (FOLVITE) tablet 1 mg 1 mg, Oral, DAILY, First dose on Tue02/21/21 at 0900, Until Discontinued 09 (Given - Provider: Flip Herrera, ERIK) 08 (Given - Provider: Flip Herrera, RN) gabapentin (NEURONTIN) capsule 300 mg 300 mg, Oral, 3 TIMES DAILY, First dose on Tue02/17/21 at 0041, Until Discontinued 0408 (Given - Provider: Emory Mauro RN)1458 (Given - Provider: Hilda Sorensen RN)2302 (Given - Provider: Jas Ojeda RN) 0544 (Given - Provider: Jas Ojeda RN)1243 (Given - Provider: Flip Herrera, ERIK)2221 (Given - Provider: Jas Ojeda RN) 0537 (Given - Provider: Jas Ojeda RN)1531 (Given - Provider: Flip Herrera, ERIK)2200 (Due) levETIRAcetam (KEPPRA) tablet 500 mg 500 mg, Oral, TWO TIMES A DAY, First dose on Tue02/17/21 at 0600, Until Discontinued, Caution: Do not crush or chew due to taste. 0408 (Given - Provider: Emory Mauro RN)1655 (Given - Provider: Hilda Sorensen RN) 0544 (Given - Provider: Jas Ojeda RN)1749 (Given - Provider: Flip Herrera, ERIK) 0537 (Given - Provider: Jas Ojeda RN)1647 (Given - Provider: Flip Herrera, ERIK) m.v.i. adult 10 mL, thiamine (VITAMIN B1) 100 mg, folic acid (VITAMIN B9) 1 mg in sodium chloride 0.9 % 1,000 mL infusion (BANANA BAG) (COMPLETED) at 125 mL/hr, Intravenous, DAILY, 5 doses, First dose (after last modification) on Tue02/16/21 at 2314, Last dose on Tue02/20/21 at 0900, 1 bag daily for 5 days BANANA BAG 0914 (New Bag - Provider: Hilda Sorensen, ERIK) Magnesium Oxide (MAG-OX) tablet 400 mg (COMPLETED) 400 mg, Oral, ONCE, 1 dose, On Tue02/21/21 at 1200 1243 (Given - Provider: Flip Herrera, ERIK) Magnesium Oxide (MAG-OX) tablet 400 mg (CANCELED) 400 mg, Oral, TWO TIMES A DAY, 4 doses, First dose (after last reorder) on Tue02/22/21 at 0930, Last dose on Tue02/23/21 at 1800 1040 (Given - Provider: Flip Herrera, ERIK) Magnesium Oxide (MAG-OX) tablet 400 mg (COMPLETED) 400 mg, Oral, ONCE, 1 dose, On Tue02/22/21 at 1200 1135 (Given - Provider: Flip Herrera RN) Magnesium Oxide (MAG-OX) tablet 800 mg 800 mg, Oral, TWO TIMES A DAY, 3 doses, First dose (after last modification) on Tue02/22/21 at 1800, Last dose on Tue02/23/21 at 1800 1648 (Given - Provider: Flip Herrera, ERIK) Magnesium Sulfate 2g/50ml IVPB 2 g (COMPLETED) 2 g, Intravenous, Administer over 60 Minutes, On Tue02/20/21 at 0815, ONCE, 1 dose, If magnesium 1.5-2.0 Repeat magnesium level in AM 0911 (New Bag - Provider: Hilda Sorensen RN) Magnesium Sulfate 2g/50ml IVPB 2 g (COMPLETED) 2 g, Intravenous, Administer over 60 Minutes, On Tue02/20/21 at 1030, ONCE, 1 dose 1136 (New Bag - Provider: Hilda Sorensen RN) Magnesium Sulfate 2g/50ml IVPB 2 g (COMPLETED) 2 g, Intravenous, Administer over 60 Minutes, On Tue02/20/21 at 1515, ONCE, 1 dose, If magnesium 1.5-2.0 Repeat magnesium level in AM 1500 (New Bag - Provider: Hilda Sorensen RN) Metoprolol Tartrate (LOPRESSOR) tablet 25 mg 25 mg, Oral, TWO TIMES A DAY, First dose on Tue02/17/21 at 0115, Until Discontinued, Caution: This medication looks and/or sounds like another medication. 0907 (Given - Provider: Hilda Sorensen RN)2300 (Given - Provider: Jas Ojeda RN) 0919 (Given - Provider: Flip Herrera, RN)2221 (Given - Provider: Jas Ojeda, RN) 0822 (Given - Provider: Flip Herrera, RN)2100 (Due) nicotine (NICODERM CQ) 21 MG/24HR 1 patch 1 patch (21 mg), Transdermal, EVERY 24 HOURS SCHEDULED (Daily), First dose on Tue02/17/21 at 0900, Until Discontinued 0908 (Patch Applied - Provider: Hilda Sorensen RN) 0919 (Patch Removed - Provider: Flip Herrera, ERIK)0920 (Patch Applied - Provider: Flip Herrera RN) 0821 (Patch Removed - Provider: Flip Herrera, ERIK)0822 (Patch Applied - Provider: Flip Herrera RN) pantoprazole (PROTONIX) EC tablet 40 mg 40 mg, Oral, DAILY BEFORE DINNER, First dose on Tue02/17/21 at 0115, Until Discontinued, Caution: Do not crush or chew. 1655 (Given - Provider: Hilda Sorensen RN) 1749 (Given - Provider: Flip Herrera RN) 1648 (Given - Provider: Flip Herrera, RN) PHENobarbital (LUMINAL) tablet 30 mg 30 mg, Oral, EVERY 6 HOURS, First dose on Tue02/22/21 at 1100, Until Discontinued 1041 (Given - Provider: Flip Herrera RN)1648 (Given - Provider: Flip Herrera RN)2300 (Due) PHENobarbital (LUMINAL) tablet 60 mg (COMPLETED) 60 mg, Oral, EVERY 4 HOURS, 4 doses, First dose on Tue02/19/21 at 1300, Last dose on Tue02/20/21 at 0100 0101 (Given - Provider: Emory Mauro RN) PHENobarbital (LUMINAL) tablet 60 mg (COMPLETED) 60 mg, Oral, EVERY 6 HOURS, 9 doses, First dose on Tue02/20/21 at 0500, Last dose on Tue02/22/21 at 0500 0407 (Given - Provider: Emory Mauro RN)1137 (Given - Provider: Hilda Sorensen RN)1655 (Given - Provider: Hilda Sorensen RN)2300 (Given - Provider: Jas Ojeda RN) 0544 (Given - Provider: Jas Ojeda, RN)1243 (Given - Provider: Flip Herrera, ERIK)1749 (Given - Provider: Flip Herrera, ERIK)2221 (Given - Provider: Jas Ojeda, ERIK) 0537 (Given - Provider: Jas Ojeda RN) potassium chloride SA (K-DUR,KLOR-CON M20) CR tablet 20 mEq (COMPLETED) 20 mEq, Oral, ONCE, 1 dose, On Tue02/20/21 at 0945, If potassium level 3.1-3.3 Give 2 hours after 40 mEq dose. 1033 (Given - Provider: Hilda Sorensen RN) potassium chloride SA (K-DUR,KLOR-CON M20) CR tablet 20 mEq (COMPLETED) 20 mEq, Oral, ONCE, 1 dose, On Tue02/20/21 at 1400, If potassium level 3.7-3.9 Repeat potassium in AM 1458 (Given - Provider: Hilda Sorensen, ERIK) potassium chloride SA (K-DUR,KLOR-CON M20) CR tablet 20 mEq (COMPLETED) 20 mEq, Oral, ONCE, 1 dose, On Tue02/22/21 at 0930, If potassium level 3.7-3.9 Repeat potassium in AM 1041 (Given - Provider: Flip Herrera, ERIK) potassium chloride SA (K-DUR,KLOR-CON M20) CR tablet 40 mEq (COMPLETED) 40 mEq, Oral, ONCE, 1 dose, On Tue02/20/21 at 0815, If potassium level 3.1-3.3 40 mEq now and 20 mEq in two hours for total of 60 mEq 0918 (Given - Provider: Hilda Sorensen RN) Thiamine Mononitrate (VITAMIN B-1) tablet 100 mg 100 mg, Oral, DAILY, First dose on Tue02/21/21 at 0900, Until Discontinued 09 (Given - Provider: Flip Herrera RN) 821 (Given - Provider: lFip Herrera, ERIK) vitamin B-12 (CYANOCOBALAMIN) tablet 1,000 mcg 1,000 mcg, Oral, DAILY, First dose on Tue02/17/21 at 0900, Until Discontinued 09 (Given - Provider: Hilda Sorensen RN) 918 (Given - Provider: Flip Herrera, ERIK) 08 (Given - Provider: Flip Herrera, ERIK) PRN Medication Order 02/20/2021 02/21/2021 02/22/2021 Albuterol nebulizer soln 2.5 mg 2.5 mg, Nebulization, EVERY 4 HOURS PRN, Wheezing and/or Shortness of breath, Starting on Tue02/17/21 at 0102, Until Discontinued aluminum-magnesium hydroxide 200-200 MG/5ML suspension 30 mL 30 mL, Oral, EVERY 6 HOURS PRN, Indigestion, Starting on Tue02/17/21 at 0014, Until Discontinued calcium carbonate (TUMS) chewable tablet 1,000 mg 1,000 mg, Oral, EVERY 4 HOURS PRN, Heartburn, Starting on Tue02/17/21 at 0014, Until Discontinued For electrolyte abnormalities subsequent to initial labs (refer to the [facility] Electrolyte Replacement Orders) Other, DAILY PRN, For electrolyte abnormalities, Starting on Tue02/17/21 at 0017, Until Discontinued, For Potassium level <=3.9 or Magnesium level <=2.0, please use Order Set #100 to order medications and repeat labs. LORazepam (ATIVAN) tablet 2-4 mg(Linked Group 1) 2-4 mg, Oral, EVERY 1 HOUR PRN, Withdrawal, Starting on Tue02/16/21 at 204, Until Discontinued, CIWA score 8-14 = 2mg CIWA score 15-20 = 3mg CIWA score > 20 = 4mg If patient is able to tolerate PO - give med PO; if patient unable to tolerate PO and has IV, give med IV; if patient unable to tolerate PO and has no IV, give med IM LORazepam injection 2-4 mg(Linked Group 1) 2-4 mg, Intramuscular, EVERY 1 HOUR PRN, Withdrawal, Starting on Tue02/16/21 at 204, Until Discontinued, CIWA score 8-14 = 2mg CIWA score 15-20 = 3mg CIWA score > 20 = 4mg If patient is able to tolerate PO - give med PO; if patient unable to tolerate PO and has IV, give med IV; if patient unable to tolerate PO and has no IV, give med IM For IV use: dilute in equal volume of NaCl 0.9% or Dextrose 5% LORazepam injection 2-4 mg(Linked Group 1) 2-4 mg, IV Push, EVERY 1 HOUR PRN, Withdrawal, Starting on Tue02/16/21 at 2048, Until Discontinued, CIWA score 8-14 = 2mg CIWA score 15-20 = 3mg CIWA score > 20 = 4mg If patient is able to tolerate PO - give med PO; if patient unable to tolerate PO and has IV, give med IV; if patient unable to tolerate PO and has no IV, give med IM For IV use: dilute in equal volume of NaCl 0.9% or Dextrose 5% nicotine polacrilex (COMMIT) lozenge 4 mg 4 mg, Oral, PRN, Smoking cessation, Starting on Tue02/17/21 at 0014, Until Discontinued, Caution: Do not crush or chew. Ondansetron (ZOFRAN-ODT) disintegrating tablet 4 mg(Linked Group 2) 4 mg, Oral, EVERY 6 HOURS PRN, Nausea and/or Vomiting, Starting on Tue02/17/21 at 0014, Until Discontinued ondansetron hcl (ZOFRAN) injection 4 mg(Linked Group 2) 4 mg, IV Push, EVERY 6 HOURS PRN, Nausea and/or Vomiting, For nausea or vomiting unrelieved by oral Zofran after 30 minutes or if unable to tolerate oral intake, Starting on Tue02/17/21 at 0014, Until Discontinued, Caution: This medication looks and/or sounds like another medication. polyethylene glycol 3350 (GLYCOLAX, MIRALAX) packet 17 g 17 g, Oral, DAILY PRN, Constipation, constipation, Starting on Tue02/17/21 at 0014, Until Discontinued, This is a maintenance laxative, begin for prevention of constipation. Linked Groups Order Group 1: LORazepam (ATIVAN) tablet 2-4 mgJump to med 2-4 mg, Oral, EVERY 1 HOUR PRN, Withdrawal, Starting on Tue02/16/21 at 2047, Until Discontinued
CIWA score 8-14 = 2mg CIWA score 15-20 = 3mg CIWA score > 20 = 4mg If patient is able to tolerate PO - give med PO; if patient unable to tolerate PO and has IV, give med IV; if patient unable to tolerate PO and has no IV, give med IM
Or LORazepam injection 2-4 mgJump to med 2-4 mg, Intramuscular, EVERY 1 HOUR PRN, Withdrawal, Starting on Tue02/16/21 at 2047, Until Discontinued
CIWA score 8-14 = 2mg CIWA score 15-20 = 3mg CIWA score > 20 = 4mg If patient is able to tolerate PO - give med PO; if patient unable to tolerate PO and has IV, give med IV; if patient unable to tolerate PO and has no IV, give med IM For IV use: dilute in equal volume of NaCl 0.9% or Dextrose 5%
Or LORazepam injection 2-4 mgJump to med 2-4 mg, IV Push, EVERY 1 HOUR PRN, Withdrawal, Starting on Tue02/16/21 at 2048, Until Discontinued
CIWA score 8-14 = 2mg CIWA score 15-20 = 3mg CIWA score > 20 = 4mg If patient is able to tolerate PO - give med PO; if patient unable to tolerate PO and has IV, give med IV; if patient unable to tolerate PO and has no IV, give med IM For IV use: dilute in equal volume of NaCl 0.9% or Dextrose 5%
Group 2: Ondansetron (ZOFRAN-ODT) disintegrating tablet 4 mgJump to med 4 mg, Oral, EVERY 6 HOURS PRN, Nausea and/or Vomiting, Starting on Tue02/17/21 at 0014, Until Discontinued Or ondansetron hcl (ZOFRAN) injection 4 mgJump to med 4 mg, IV Push, EVERY 6 HOURS PRN, Nausea and/or Vomiting, For nausea or vomiting unrelieved by oral Zofran after 30 minutes or if unable to tolerate oral intake, Starting on Tue02/17/21 at 0014, Until Discontinued
Caution: This medication looks and/or sounds like another medication.
Scheduled Medication Order 07/02/2021 07/03/2021 07/04/2021 amitriptyline (ELAVIL) tablet 75 mg 75 mg, Oral, NIGHTLY, First dose on Tue06/24/21 at 2200, Until Discontinued 2358 (Not Given - Provider: Amy Brown RN - Reason: Patient/family refused - Comment: attempted, pt refused to take) 2038 (Given - Provider: Diivne Franklin RN) amoxicillin-clavulana te (AUGMENTIN) 875-125 MG per tablet 875 mg 875 mg, Oral, EVERY 12 HOURS SCHEDULED (2 times per day), First dose on Tue07/03/21 at 1030, Until Discontinued, Indications: Aspiration Pneumonia 1057 (Given - Provider: aLkshmi Newton RN)1722 (Given - Provider: Lakshmi Newton RN) 09 (Given - Provider: Sharita Cornejo Nurse)181 (Given - Provider: Sharita oCrnejo Nurse) aspirin chewable tablet 81 mg 81 mg, Oral, DAILY, First dose on Tue06/25/21 at 0915, Until Discontinued 122 (Not Given - Provider: Lakshmi Newton RN - Reason: Patient/family refused - Comment: pt refused and gets verbally and physically aggressive when asked to take medication) 907 (Given - Provider: Lakshmi Newton RN) 09 (Given - Provider: Sharita Cornejo Nurse) atorvastatin (LIPITOR) tablet 80 mg 80 mg, Oral, NIGHTLY, First dose on Tue06/24/21 at 2200, Until Discontinued 2358 (Not Given - Provider: Amy Brown RN - Reason: Patient/family refused - Comment: attempted, pt refused to take) 2038 (Given - Provider: Divine Franklin RN) chlordiazePOXIDE (LIBRIUM) capsule 5 mg 5 mg, Oral, EVERY 8 HOURS SCHEDULED (3 times per day), First dose on Tue07/03/21 at 0915, Until Discontinued 09 (Given - Provider: Lakshmi Newton RN)151 (Given - Provider: Lakshmi Newton RN)2041 (Given - Provider: Divine Franklin RN) 09 (Given - Provider: Sharita Cornejo Nurse)1518 (Given - Provider: Sharita Cornejo Nurse) clopidogrel (PLAVIX) tablet 75 mg 75 mg, Oral, DAILY, First dose on Tue06/25/21 at 0900, Until Discontinued 1225 (Not Given - Provider: Lakshmi Newton RN - Reason: Patient/family refused - Comment: pt refused and gets verbally and physically aggressive when asked to take medication) 907 (Given - Provider: Lakshmi Newton RN) 09 (Given - Provider: Sharita Cornejo Nurse) folic acid (FOLVITE) tablet 400 mcg 400 mcg, Oral, DAILY, First dose (after last modification) on Tue07/01/21 at 0900, Until Discontinued 1225 (Not Given - Provider: Lakshmi Newton RN - Reason: Patient/family refused - Comment: pt refused and gets verbally and physically aggressive when asked to take medication) 0908 (Given - Provider: Lakshmi Newton RN) 0908 (Given - Provider: Abdullahi Paulino, Student Nurse) heparin (porcine) injection 5,000 Units 5,000 Units, Subcutaneous, EVERY 12 HOURS SCHEDULED (2 times per day), First dose on Tue06/24/21 at 1929, Until Discontinued 0830 (Given - Provider: Lakshmi Newton RN) 0156 (Not Given - Provider: Amy Brown RN - Reason: Patient/family refused)0412 (Given - Provider: Amy Brown, RN)1723 (Given - Provider: Lakshmi Newton RN) 0546 (Given - Provider: Divine Franklin RN)1817 (Given - Provider: Abdullahi Paulino, Student Nurse) levETIRAcetam (KEPPRA) 750 mg in sodium chloride 0.9 % 107.5 mL IVPB (CANCELED) 750 mg, Intravenous, Administer over 15 Minutes, First dose on Tue07/02/21 at 0900, EVERY 12 HOURS, Until Discontinued 0955 (New Bag - Provider: Lakshmi Newton RN)0955 (Paused - Provider: Lakshmi Newton RN)0956 (Restarted - Provider: Lakshmi Newton RN)1011 (Stopped - Provider: Lakshmi Newton RN)1012 (Stopped - Provider: Lakshmi Newton RN) 0358 (New Bag - Provider: Amy Brown, RN) levETIRAcetam (KEPPRA) tablet 750 mg 750 mg, Oral, EVERY 12 HOURS SCHEDULED (2 times per day), First dose on Tue06/30/21 at 1800, Until Discontinued, Caution: Do not crush or chew due to taste. 0830 (Held by provider - Provider: Angela Denson MD - Reason: Other - Comment: Hold while NPO, switched to IV)0947 (Not Given - Provider: Lakshmi Newton RN - Reason: Other - Comment: order switched to IV)1800 (Automatically Held - Provider: Angela Denson MD) 0600 (Automatically Held - Provider: Angela Denson MD)0840 (Unheld by provider - Provider: Angela Denson MD - Reason: Contraindication Resolved)1722 (Given - Provider: Lakshmi Newton RN) 09 (Given - Provider: Abdullahi Paulino, Student Nurse)181 (Given - Provider: Abdullahi Paulino, Student Nurse) lisinopril (PRINIVIL,ZESTRIL) tablet 20 mg 20 mg, Oral, DAILY BEFORE LUNCH, First dose on 06/27/21 at 1100, Until Discontinued, Caution: This medication looks and/or sounds like another medication. 1226 (Not Given - Provider: Lakshmi Newton RN - Reason: Patient/family refused - Comment: pt refused and gets verbally and physically aggressive when asked to take medication) 09 (Given - Provider: Lakshmi Newton RN) 1519 (Given - Provider: Abdullahi Paulino, Student Nurse) m.v.i. adult 10 mL, thiamine (VITAMIN B1) 100 mg, folic acid (VITAMIN B9) 1 mg in sodium chloride 0.9 % 1,000 mL infusion (BANANA BAG) (COMPLETED) at 125 mL/hr, Intravenous, ONCE, 1 dose, On Maye 07/02/21 at 0900, BANANA BAG 1324 (New Bag - Provider: Lakshmi Newton RN)1328 (Rate/Dose Verify - Provider: Lakshmi Newton RN)1707 (Rate/Dose Verify - Provider: Lakshmi Newton RN)1901 (Rate/Dose Verify - Provider: Amy Brown RN)190 (Rate/Dose Verify - Provider: Amy Brown, RN)193 (Rate/Dose Verify - Provider: Amy Brown, RN)194 (Rate/Dose Verify - Provider: Amy Brown, RN)2016 (Rate/Dose Verify - Provider: Amy Brown, RN)2023 (Rate/Dose Verify - Provider: Amy Brown, RN)2028 (Rate/Dose Verify - Provider: Amy Brown, RN) Magnesium Oxide (MAG-OX) tablet 400 mg 400 mg, Oral, DAILY, First dose on 06/27/21 at 0900, Until Discontinued 1226 (Not Given - Provider: Lakshmi Newton RN - Reason: Patient/family refused - Comment: pt refused and gets verbally and physically aggressive when asked to take medication) 0908 (Given - Provider: Lakshmi Newton RN) 0907 (Given - Provider: Abdullahi Paulino, Student Nurse) Magnesium Sulfate 2g/50ml IVPB 2 g (COMPLETED) 2 g, Intravenous, Administer over 60 Minutes, On Maye 07/02/21 at 0830, ONCE, 1 dose, If magnesium 1.5-2.0 Repeat magnesium level in AM 0828 (New Bag - Provider: Lakshmi Newton RN)0833 (Rate/Dose Verify - Provider: Lakshmi Newton RN)0913 (Paused - Provider: Lakshmi Newton RN)0914 (Restarted - Provider: Lakshmi Newton RN)0929 (Stopped - Provider: Lakshmi Newton RN) Magnesium Sulfate 2g/50ml IVPB 2 g (COMPLETED) 2 g, Intravenous, Administer over 60 Minutes, On Tue07/03/21 at 0830, ONCE, 1 dose, If magnesium 1.5-2.0 Repeat magnesium level in AM 0920 (New Bag - Provider: Lakshmi Newton RN)0920 (Rate/Dose Verify - Provider: Lakshmi Newton RN)1020 (Stopped - Provider: Lakshmi Newton RN)1058 (Stopped - Provider: Lakshmi Newton, ERIK)1130 (Stopped - Provider: Lakshmi Newton RN) Metoprolol Tartrate (LOPRESSOR) tablet 25 mg 25 mg, Oral, TWO TIMES A DAY, First dose on 06/27/21 at 0845, Until Discontinued, Caution: This medication looks and/or sounds like another medication. 1226 (Not Given - Provider: Lakshmi Newton RN - Reason: Patient/family refused - Comment: pt refused and gets verbally and physically aggressive when asked to take medication)1700 (Not Given - Provider: Lakshmi Newton RN - Reason: Patient/family refused - Comment: pt refused. Pt gets combative and yells out everytime he is offered anything PO) 0414 (Not Given - Provider: Amy Brown RN - Reason: Patient/family refused)1722 (Given - Provider: Lakshmi Newton RN) 0907 (Given - Provider: Sharita Cornejo Nurse)181 (Given - Provider: Sharita Cornejo Nurse) nicotine (NICODERM CQ) 21 MG/24HR 1 patch 1 patch (21 mg), Transdermal, EVERY 24 HOURS SCHEDULED (Daily), First dose on Tue06/24/21 at 1929, Until Discontinued 1119 (Patch Removed - Provider: Lakshmi Newton RN)1120 (Patch Applied - Provider: Lakshmi Newton RN) 0908 (Patch Removed - Provider: Lakshmi Newton RN)0909 (Patch Applied - Provider: Lakshmi Newton RN) 09 (Patch Removed - Provider: Sharita Cornejo Nurse)0923 (Patch Applied - Provider: Sharita Cornejo Nurse)213 (Due: Patch Removed - Provider: Automatic Discharge Provider - Comment: Time automatically adjusted from order being discontinued) pantoprazole (PROTONIX) EC tablet 40 mg 40 mg, Oral, EVERY EVENING, First dose on Tue06/30/21 at 1700, Until Discontinued, Caution: Do not crush or chew. 1700 (Not Given - Provider: Lakshmi Newton RN - Reason: Patient/family refused - Comment: pt refused. Pt gets combative and yells out everytime he is offered anything PO) 172 (Given - Provider: Lakshmi Newton RN) 181 (Given - Provider: Sharita Cornejo Nurse) polyethylene glycol 3350 (GLYCOLAX, MIRALAX) packet 17 g 17 g, Oral, TWO TIMES A DAY, First dose on Tue06/28/21 at 1800, Until Discontinued 1226 (Not Given - Provider: Lakshmi Newton RN - Reason: Patient/family refused - Comment: pt refused and gets verbally and physically aggressive when asked to take medication)1659 (Not Given - Provider: Lakshmi Newton RN - Reason: Patient/family refused - Comment: pt refused. Pt gets combative and yells out everytime he is offered anything PO) 0414 (Not Given - Provider: Amy Brown RN - Reason: Patient/family refused)1722 (Given - Provider: Lakshmi Newton RN) 0546 (Not Given - Provider: Divine Franklin RN - Reason: Patient/family refused)1826 (Patient Declined - Provider: Abdullahi Paulino Student Nurse) potassium chloride 20 mEq in 100 mL IVPB (COMPLETED) 20 mEq, Intravenous, Administer over 2 Hours, On Maye 07/02/21 at 0830, ONCE, 1 dose, Patient must be on monitor/telemetry. Give with D5W at Y-site (see separate dextrose 5% PRN order). If burning/discomfort occurs, may consider slowing KCl infusion rate and/or increasing the D5W rate - consult physician. 1118 (New Bag - Provider: Lakshmi Newton RN)1326 (Stopped - Provider: Lakshmi Newton RN) potassium chloride 20 mEq in 100 mL IVPB (COMPLETED) 20 mEq, Intravenous, Administer over 2 Hours, On Tue07/03/21 at 0830, ONCE, 1 dose, Patient must be on monitor/telemetry. Give with D5W at Y-site (see separate dextrose 5% PRN order). If burning/discomfort occurs, may consider slowing KCl infusion rate and/or increasing the D5W rate - consult physician. 1056 (New Bag - Provider: Lakshmi Newton RN)1058 (Rate/Dose Verify - Provider: Lakshmi Newton RN) Protein pudding supplement 4 oz 4 oz, Oral, 3 TIMES PER DAY (DIETARY), First dose on Tue06/29/21 at 1400, Until Discontinued, Flavor not specified 0822 (Given - Provider: Lakshmi Newton RN)1325 (Not Given - Provider: Lakshmi Newton RN - Reason: Patient/family refused) 0000 (Not Given - Provider: Amy Brown RN - Reason: Patient/family refused - Comment: attempted, pt refused)0908 (Given - Provider: Lakshmi Newton RN)1518 (Given - Provider: Lakshmi Newton RN)2042 (Given - Provider: Divine Franklin RN) 0910 (Given - Provider: Abdullahi Paulino Student Nurse)1518 (Given - Provider: Sharita Cornejo Nurse)2136 (Not Given - Provider: Divine Franklin RN - Reason: Patient/family refused) senna-docusate (PERICOLACE) 8.6-50 MG per tablet 1 tablet 1 tablet, Oral, TWO TIMES A DAY, First dose on Tue06/24/21 at 1929, Until Discontinued 1227 (Not Given - Provider: Lakshmi Newton RN - Reason: Patient/family refused - Comment: pt refused and gets verbally and physically aggressive when asked to take medication)1659 (Not Given - Provider: Lakshmi Newton RN - Reason: Patient/family refused - Comment: pt refused. Pt gets combative and yells out everytime he is offered anything PO) 0414 (Not Given - Provider: Amy Brown RN - Reason: Patient/family refused)1722 (Given - Provider: Lakshmi Newton RN) 0542 (Not Given - Provider: Divine Franklin RN - Reason: Patient/family refused)1817 (Given - Provider: Abdullahi Paulino, Student Nurse) thera vitamin tablet 1 tablet 1 tablet, Oral, DAILY, First dose on Tue06/26/21 at 0945, Until Discontinued 1227 (Not Given - Provider: Lakshmi Newton RN - Reason: Patient/family refused) 0909 (Given - Provider: Lakshmi Newton RN) 0907 (Given - Provider: Abdullahi Paulino Student Nurse) Thiamine Mononitrate (VITAMIN B-1) tablet 100 mg 100 mg, Oral, DAILY, First dose on Tue07/01/21 at 0900, Until Discontinued 1227 (Not Given - Provider: Lakshmi Newton RN - Reason: Patient/family refused) 0907 (Given - Provider: Lakshmi Newton RN) 0907 (Given - Provider: Abdullahi Paulino Student Nurse) valproate (DEPACON) 500 mg in sodium chloride 0.9 % 100 mL IVPB (COMPLETED) 500 mg, Intravenous, Administer over 60 Minutes, On Maye 07/02/21 at 0445, ONCE, 1 dose 0431 (New Bag - Provider: Talisha Morris RN)0433 (Rate/Dose Verify - Provider: Lakshmi Newton RN)0442 (Paused - Provider: Lakshmi Newton, ERIK)044 (Restarted - Provider: Lakshmi Newton RN)0443 (Paused - Provider: Lakshmi Lamar, RN)0443 (Restarted - Provider: Lakshmi Newton RN)0443 (Paused - Provider: Lakshmi Newton, RN)0444 (Restarted - Provider: Lakshmi Newton RN)0459 (Paused - Provider: Lakshmi Newton, RN)0502 (Restarted - Provider: Lakshmi Newton, RN)0503 (Paused - Provider: Lakshmi Newton, RN)0504 (Restarted - Provider: Lakshmi Newton, RN)0506 (Paused - Provider: Lakshmi Newton, RN)0506 (Restarted - Provider: Lakshmi Newton RN)0510 (Paused - Provider: Lakshmi Newton RN)0511 (Restarted - Provider: Lakshmi Newton RN)0514 (Paused - Provider: Lakshmi Newton RN)0514 (Restarted - Provider: Lakshmi Newton RN)0515 (Paused - Provider: Lakshmi Newton RN)0515 (Restarted - Provider: Lakshmi Newton RN)0516 (Paused - Provider: Lakshmi Newton RN)0516 (Restarted - Provider: Lakshmi Newton RN)0519 (Paused - Provider: Lakshmi Newton RN)0521 (Restarted - Provider: Lakshmi Newton RN)0528 (Paused - Provider: Lakshmi Newton RN)0529 (Restarted - Provider: Lakshmi Newton RN)0529 (Paused - Provider: Lakshmi Newton, RN)0530 (Restarted - Provider: Lakshmi Newton, RN)0545 (Stopped - Provider: Lakshmi Newton RN) Continuous Medication Order 07/02/2021 07/03/2021 07/04/2021 lactated ringers infusion Intravenous, at 100 mL/hr, CONTINUOUS, Starting on Tue06/29/21 at 0745, Until Tue07/05/21 at 0338 0952 (New Bag - Provider: Lakshmi Newton RN)1325 (Stopped - Provider: Lakshmi Lamar, RN - Comment: Banna bag infusing) 0607 (New Bag - Provider: Amy Brown, RN)1724 (New Bag - Provider: Lakshmi Newton RN) 1210 (Stopped - Provider: Leeanne Sifuentes RN) PRN Medication Order 07/02/2021 07/03/2021 07/04/2021 acetaminophen (TYLENOL) tablet 650 mg 650 mg, Oral, EVERY 4 HOURS PRN, Mild Pain, Fever, Starting on Tue06/24/21 at 1858, Until 07/05/21 at 0338, Maximum dose of acetaminophen is 4000 mg from all sources in 24 hours. albuterol 2.5mg-ipratropium 0.5mg/3ml (DUONEB) nebulizer soln 3 mL 3 mL, Nebulization, EVERY 6 HOURS PRN, Shortness of Breath, Starting on Tue06/24/21 at 1858, Until 07/05/21 at 0338, Is patient suspected or confirmed to have COVID-19? No bisacodyl (DULCOLAX) EC tablet 5 mg 5 mg, Oral, DAILY PRN, Constipation, Starting on Tue06/24/21 at 1858, Until 07/05/21 at 0338, Caution: Do not crush or chew. dextrose 5% solution Intravenous, at 75 mL/hr, CONTINUOUS PRN, Run at the Y-site with KCl for the duration of the KCl infusion., Starting on Tue06/28/21 at 0626, Until 07/05/21 at 0338, Run at the Y-site with KCl for the duration of the KCl infusion. dextrose 5% solution Intravenous, at 75 mL/hr, CONTINUOUS PRN, Run at the Y-site with KCl for the duration of the KCl infusion., Starting on Maye 07/02/21 at 0753, Until 07/05/21 at 0338, Run at the Y-site with KCl for the duration of the KCl infusion. For electrolyte abnormalities subsequent to initial labs (refer to the [facility] Electrolyte Replacement Orders) 1 each 1 each, Other, DAILY PRN, For electrolyte abnormalities, Starting on Tue06/26/21 at 0902, Until 07/05/21 at 0338, For Potassium level <=3.9 or Magnesium level <=2.0, please use Order Set #100 to order medications and repeat labs. hydrALAZINE (APRESOLINE) injection 10 mg 10 mg, Intravenous, EVERY 6 HOURS PRN, High Blood Pressure (specify):, SBP > 160, Starting on Tue06/26/21 at 1812, Until 07/05/21 at 0338, Caution: This medication looks and/or sounds like another medication. hydrOXYzine (ATARAX) tablet 50 mg 50 mg, Oral, EVERY 6 HOURS PRN, Anxiety, for MILD anxiety- patient reported anxiety 1-4, Starting on Tue06/27/21 at 0804, Until 07/05/21 at 0338 2038 (Given - Provider: Divine Franklin, ERIK) LORazepam (ATIVAN) tablet 2-4 mg(Linked Group 1) 2-4 mg, Oral, EVERY 1 HOUR PRN, Withdrawal, Starting on Tue06/26/21 at 0902, Until 07/05/21 at 0338, CIWA score 8-14 = 2mg CIWA score 15-20 = 3mg CIWA score > 20 = 4mg If patient is able to tolerate PO - give med PO; if patient unable to tolerate PO and has IV, give med IV; if patient unable to tolerate PO and has no IV, give med IM 1113 (See Alternative - Provider: Lakshmi Newton RN) 2216 (See Alternative - Provider: Divine Fraknlin, ERIK) LORazepam injection 2-4 mg(Linked Group 1) 2-4 mg, Intramuscular, EVERY 1 HOUR PRN, Withdrawal, Starting on Tue06/26/21 at 0902, Until 07/05/21 at 0338, CIWA score 8-14 = 2mg CIWA score 15-20 = 3mg CIWA score > 20 = 4mg If patient is able to tolerate PO - give med PO; if patient unable to tolerate PO and has IV, give med IV; if patient unable to tolerate PO and has no IV, give med IM For IV use: dilute in equal volume of NaCl 0.9% or Dextrose 5% 1113 (See Alternative - Provider: Lakshmi Newton RN) 2216 (See Alternative - Provider: Divine Franklin, ERIK) LORazepam injection 2-4 mg(Linked Group 1) 2-4 mg, IV Push, EVERY 1 HOUR PRN, Withdrawal, Starting on Tue06/26/21 at 0902, Until 07/05/21 at 0338, CIWA score 8-14 = 2mg CIWA score 15-20 = 3mg CIWA score > 20 = 4mg If patient is able to tolerate PO - give med PO; if patient unable to tolerate PO and has IV, give med IV; if patient unable to tolerate PO and has no IV, give med IM For IV use: dilute in equal volume of NaCl 0.9% or Dextrose 5% 1113 (Given - Provider: Lakshmi Newton, RN) 2216 (Given - Provider: Divine Franklin, ERIK) nicotine polacrilex (COMMIT) lozenge 4 mg 4 mg, Oral, PRN, Smoking cessation, Starting on Tue06/24/21 at 1858, Until 07/05/21 at 0338, Caution: Do not crush or chew. ondansetron hcl (ZOFRAN) injection 4 mg 4 mg, IV Push, EVERY 6 HOURS PRN, Nausea, Vomiting, Starting on Tue06/24/21 at 1858, Until 07/05/21 at 0338, Caution: This medication looks and/or sounds like another medication. Linked Groups Order Group 1: LORazepam (ATIVAN) tablet 2-4 mgJump to med 2-4 mg, Oral, EVERY 1 HOUR PRN, Withdrawal, Starting on Tue06/26/21 at 0902, Until 07/05/21 at 0338
CIWA score 8-14 = 2mg CIWA score 15-20 = 3mg CIWA score > 20 = 4mg If patient is able to tolerate PO - give med PO; if patient unable to tolerate PO and has IV, give med IV; if patient unable to tolerate PO and has no IV, give med IM
Or LORazepam injection 2-4 mgJump to med 2-4 mg, Intramuscular, EVERY 1 HOUR PRN, Withdrawal, Starting on Tue06/26/21 at 0902, Until 07/05/21 at 0338
CIWA score 8-14 = 2mg CIWA score 15-20 = 3mg CIWA score > 20 = 4mg If patient is able to tolerate PO - give med PO; if patient unable to tolerate PO and has IV, give med IV; if patient unable to tolerate PO and has no IV, give med IM For IV use: dilute in equal volume of NaCl 0.9% or Dextrose 5%
Or LORazepam injection 2-4 mgJump to med 2-4 mg, IV Push, EVERY 1 HOUR PRN, Withdrawal, Starting on Tue06/26/21 at 0902, Until Tue07/05/21 at 0338
CIWA score 8-14 = 2mg CIWA score 15-20 = 3mg CIWA score > 20 = 4mg If patient is able to tolerate PO - give med PO; if patient unable to tolerate PO and has IV, give med IV; if patient unable to tolerate PO and has no IV, give med IM For IV use: dilute in equal volume of NaCl 0.9% or Dextrose 5%
Scheduled Medication Order 06/19/2024 06/20/2024 06/21/2024 acetaminophen (Tylenol) tablet 650 mg 650 mg, Oral, Every 6 hours, First dose on Tue06/19/24 at 1315, Maximum dose of acetaminophen is 4000 mg from all sources in 24 hours. 1348 (Given - Provider: Ирина Sanz RN)2100 (Not Given - Provider: Eli Lantigua RN - Reason: Other - Comment: retimed)211 (Given - Provider: Eli Lantigua RN) 0420 (Given - Provider: Eli Lantigua RN)0925 (JUL Hold - Provider: Automatic Transfer Provider - Reason: Patient not available)1000 (Not Given - Provider: Ирина Sanz RN - Reason: Patient not available)1347 (JUL Unhold - Provider: Automatic Transfer Provider)1600 (Not Given - Provider: Ирина Sanz RN - Reason: Patient/family refused)2124 (Given - Provider: Katie Damon RN) 0515 (Given - Provider: Katie Damon, RN)0919 (Given - Provider: Rajni Vital RN)1640 (Given - Provider: Rajni Vital RN) aspirin EC tablet 81 mg 81 mg, Oral, 2 times daily, First dose (after last modification) on Tue06/20/24 at 2100, Phase II/On Unit, Do not crush, chew, or split. 2122 (Given - Provider: Katie Damon RN) 0842 (Given - Provider: Rajni Vital RN) atorvastatin (Lipitor) tablet 80 mg 80 mg, Oral, Daily, First dose on Tue06/19/24 at 2100 2033 (Given - Provider: Eli Lantigua RN) 09 (JUL Hold - Provider: Automatic Transfer Provider - Reason: Patient not available)134 (JUL Unhold - Provider: Automatic Transfer Provider)2123 (Given - Provider: Katie Damon RN) ceFAZolin in dextrose 4% (Ancef) IVPB 2,000 mg (COMPLETED) 2,000 mg, IntraVENous, Administer over 30 Minutes, Every 8 hours, First dose on Tue06/20/24 at 1415, For 24 hours, Phase II/On Unit, premix bag, Suspected Indication (Select all that apply): Surgical Prophylaxis 1612 (New Bag - Provider: Ирина Sanz RN)1642 (Stopped - Provider: Ирина Sanz RN)2215 (New Bag - Provider: Katie Damon RN)2245 (Stopped - Provider: Katie Damon, ERIK) 0615 (New Bag - Provider: Katie Damon RN)0645 (Stopped - Provider: Katie Damon RN) divalproex (Depakote) EC tablet 250 mg 250 mg, Oral, 3 times daily, First dose on Tue06/19/24 at 1545, Do not crush, chew, or split. 180 (Given - Provider: Ирина Sanz RN)2033 (Given - Provider: Eli Lantigua RN) 09 (Not Given - Provider: Ирина Sanz RN - Reason: Patient not available)09 (JUL Hold - Provider: Automatic Transfer Provider - Reason: Patient not available)134 (JUL Unhold - Provider: Automatic Transfer Provider)1421 (Given - Provider: Ирина Sanz RN)212 (Given - Provider: Katie Damon RN) 0844 (Given - Provider: Rajni Vital RN)1319 (Given - Provider: Rajni Vital RN) fenofibrate (Triglide) tablet 160 mg 160 mg, Oral, Daily, First dose on Tue06/19/24 at 1500, Substituted for Fenofibrate (Non-Formulary Dose). 1500 (Not Given - Provider: Ирина Sanz RN - Reason: Contraindicated) 0925 ([facility] Hold - Provider: Automatic Transfer Provider - Reason: Patient not available)1347 ([facility] Unhold - Provider: Automatic Transfer Provider)1420 (Given - Provider: Ирина Sanz RN) 0844 (Given - Provider: Rajni Vital RN) gabapentin (Neurontin) capsule 300 mg 300 mg, Oral, Nightly, First dose on Tue06/19/24 at 2099 2033 (Given - Provider: Eli Lantigua RN) 0925 (JUL Hold - Provider: Automatic Transfer Provider - Reason: Patient not available)134 ([facility] Unhold - Provider: Automatic Transfer Provider)2122 (Given - Provider: Katie Damon, ERIK) levETIRAcetam (Keppra) tablet 750 mg 750 mg, Oral, 2 times daily, First dose on Tue06/19/24 at 2099 2033 (Given - Provider: Eli Lantigau RN) 0925 ([facility] Hold - Provider: Automatic Transfer Provider - Reason: Patient not available)1347 ([facility] Unhold - Provider: Automatic Transfer Provider)1420 (Given - Provider: Ирина Sanz RN)2125 (Given - Provider: Katie Damon, ERIK) 0844 (Given - Provider: Rajni Vital RN) Lidocaine 4 % patch 1 patch 1 patch, Topical, Administer over 12 Hours, Daily, First dose on Tue06/19/24 at 1515, Apply patch to affected area. Patch may remain in place for up to 12 hours in any 24 hour period. 1515 (Not Given - Provider: Ирина Sanz RN - Reason: Patient/family refused) 0925 ([facility] Hold - Provider: Automatic Transfer Provider - Reason: Patient not available)1345 (Not Given - Provider: Ирина Sanz RN - Reason: Patient/family refused)1347 ([facility] Unhold - Provider: Automatic Transfer Provider) 0900 (Not Given - Provider: Rajni Vital RN - Reason: Other - Comment: dressing in place) sodium chloride 0.9% (NS) flush 5-40 mL 5-40 mL, IntraVENous, Every 12 hours, First dose on Tue06/19/24 at 1315, For Line Patency: Peripheral IV = 5 mL; Midline or Central Line = 10 mL/lumen. If following IV push medication, administer flush at same rate as the IV push. Flush volume is determined by type of infusion therapy being given. For non-viscous solutions use: Peripheral IV = 5 mL Midline or Central Line = 10 mL/lumen For viscous solutions (i.e. blood components, parenteral nutrition, contrast media, or after obtaining blood sample) use: Peripheral IV = 10 mL Midline or Central Line = 20 mL/lumen 1349 (Given - Provider: Ирина Sanz RN) 0115 (Given - Provider: Eli Lantigua RN)0925 (MAR Hold - Provider: Automatic Transfer Provider - Reason: Patient not available)1315 (Dose Auto Held - Provider: Automatic Transfer Provider)1347 (MAR Unhold - Provider: Automatic Transfer Provider) 0115 (Given - Provider: Katie Damon RN)1256 (Given - Provider: Rajni Vital, ERIK) PRN Medication Order 06/19/2024 06/20/2024 06/21/2024 HYDROmorphone (Dilaudid) injection 0.25 mg(Linked Group 1) 0.25 mg, IntraVENous, Every 4 hours PRN, moderate pain (4-6), Starting on Tue06/19/24 at 1505, If oral and IV narcotics ordered, use oral first and only use IV if oral is ineffective or cannot take oral. Do Not give oral and IV within 1 hour of each other unless specifically ordered. 0925 (MAR Hold - Provider: Automatic Transfer Provider - Reason: Patient not available)1347 ([facility] Unhold - Provider: Automatic Transfer Provider)1418 (See Alternative - Provider: Ирина Sanz RN)2152 (See Alternative - Provider: Katie Damon, ERIK) 0516 (See Alternative - Provider: Katie Damon, ERIK)1253 (See Alternative - Provider: Rajni Vital, ERIK) HYDROmorphone (Dilaudid) injection 0.5 mg(Linked Group 1) 0.5 mg, IntraVENous, Every 4 hours PRN, severe pain (7-10), Starting on Tue06/19/24 at 1505, If oral and IV narcotics ordered, use oral first and only use IV if oral is ineffective or cannot take oral. Do Not give oral and IV within 1 hour of each other unless specifically ordered. 924 (JUL Hold - Provider: Automatic Transfer Provider - Reason: Patient not available)1347 ([facility] Unhold - Provider: Automatic Transfer Provider)1418 (Given - Provider: Ирина Sanz, RN)2152 (Given - Provider: Katie Damon, RN) 0516 (Given - Provider: Katie Damon, RN)1253 (Given - Provider: Rajni Vital RN) methocarbamol (Robaxin) tablet 1,000 mg 1,000 mg, Oral, Every 8 hours PRN, muscle spasms, Starting on Tue06/19/24 at 1505 924 ([facility] Hold - Provider: Automatic Transfer Provider - Reason: Patient not available)134 ([facility] Unhold - Provider: Automatic Transfer Provider) naloxone (Narcan) injection 0.4 mg 0.4 mg, IntraVENous, Every 5 min PRN, opioid reversal, respiratory depression, Starting on Tue06/19/24 at 1319, +++ For RR <10, pinpoint pupils, over sedation for opioid reversal - MUST notify custom van converter provider immediately after first dose, may give IM or SQ if no IV access +++ 924 ([facility] Hold - Provider: Automatic Transfer Provider - Reason: Patient not available)134 ([facility] Unhold - Provider: Automatic Transfer Provider) ondansetron (Zofran) injection 4 mg(Linked Group 2) 4 mg, IntraVENous, Every 6 hours PRN, nausea, vomiting, Starting on Tue06/19/24 at 1310, 1st Line. Give IV if patient is unable to take orally. If inadequate response within 60 minutes, proceed to next-line agent or contact provider if no further options ordered. 09 ([facility] Hold - Provider: Automatic Transfer Provider - Reason: Patient not available)1000 (Given - Provider: Jas Hernandez APRN - [employer] REFINING SUPERVISOR)1347 ([facility] Unhold - Provider: Automatic Transfer Provider) ondansetron ODT (Zofran-ODT) disintegrating tablet 4 mg(Linked Group 2) 4 mg, Oral, Every 8 hours PRN, nausea, vomiting, Starting on Tue06/19/24 at 1310, 1st Line. If inadequate response within 60 minutes, proceed to next-line agent or contact provider if no further options ordered. Patient should allow tablet to dissolve on tongue. Do not remove from blister pack until just before administering. 0925 (JUL Hold - Provider: Automatic Transfer Provider - Reason: Patient not available)1000 (See Alternative - Provider: Jas Hernandez, MANAGER DOCUMENTATION - [employer] REFINING SUPERVISOR)1347 (JUL Unhold - Provider: Automatic Transfer Provider) oxyCODONE (Roxicodone) immediate release tablet 10 mg(Linked Group 3) 10 mg, Oral, Every 4 hours PRN, severe pain (7-10), Starting on Tue06/19/24 at 1314 0925 (JUL Hold - Provider: Automatic Transfer Provider - Reason: Patient not available)1347 (JUL Unhold - Provider: Automatic Transfer Provider)2040 (Given - Provider: Katie Damon RN) 0842 (Given - Provider: Rajni Vital RN)1640 (Given - Provider: Rajni Vital RN) oxyCODONE (Roxicodone) immediate release tablet 5 mg(Linked Group 3) 5 mg, Oral, Every 4 hours PRN, moderate pain (4-6), Starting on Tue06/19/24 at 1314 0925 (JUL Hold - Provider: Automatic Transfer Provider - Reason: Patient not available)1347 ([facility] Unhold - Provider: Automatic Transfer Provider)2040 (See Alternative - Provider: Katie Damon RN) 0842 (See Alternative - Provider: Rajni Vital RN)1640 (See Alternative - Provider: Rajni Vital RN) polyethylene glycol (PEG) 3350 (Miralax) packet 17 g 17 g, Oral, Daily PRN, constipation, Starting on Tue06/19/24 at 1310, 1st line for treatment of constipation - give scheduled if no bowel movement in past 24 hours. 0925 (JUL Hold - Provider: Automatic Transfer Provider - Reason: Patient not available)1347 ([facility] Unhold - Provider: Automatic Transfer Provider) sodium chloride 0.9 % infusion 5-250 mL/hr, IntraVENous, PRN, if patient receiving piggyback infusions and maintenance fluids are not ordered OR KVO fluids to protect IV site / prevent frequent line interruptions / long duration, Starting on Tue06/19/24 at 1310, For piggyback infusion, administer at same rate as piggyback for a total of 25 mL. Enter 25 mL into dose field and piggyback rate into rate field of order. If piggyback is infusing at a rate less than 100 mL/hr, enter 25 mL into dose field and 100 mL/hr into rate field of order. For KVO fluids, enter rate of 20 mL/hr or less into rate field of order. 0925 ([facility] Hold - Provider: Automatic Transfer Provider - Reason: Patient not available)1347 ([facility] Unhold - Provider: Automatic Transfer Provider) sodium chloride 0.9 % irrigation solution (CANCELED) As needed, Starting on Tue06/20/24 at 1039, Intraprocedure 1039 (Given - Provider: Joyce Hennessy MD) sodium chloride 0.9% (NS) flush 5-40 mL 5-40 mL, IntraVENous, PRN, line care, After every IV line use, Starting on Tue06/19/24 at 1310, For Line Patency: Peripheral IV = 5 mL; Midline or Central Line = 10 mL/lumen. If following IV push medication, administer flush at same rate as the IV push. Flush volume is determined by type of infusion therapy being given. For non-viscous solutions use: Peripheral IV = 5 mL Midline or Central Line = 10 mL/lumen For viscous solutions (i.e. blood components, parenteral nutrition, contrast media, or after obtaining blood sample) use: Peripheral IV = 10 mL Midline or Central Line = 20 mL/lumen 0925 ([facility] Hold - Provider: Automatic Transfer Provider - Reason: Patient not available)1347 ([facility] Unhold - Provider: Automatic Transfer Provider) sterile water irrigation solution (CANCELED) As needed, Starting on Tue06/20/24 at 1214, Intraprocedure 1214 (Given - Provider: Joyce Hennessy MD) Xeroform Petrolat Gauze 1x8 pad (CANCELED) As needed, Starting on Tue06/20/24 at 1214, Intraprocedure 1214 (Given - Provider: Joyce Hennessy MD - Comment: applied and surgical site) Linked Groups Order Group 1: HYDROmorphone (Dilaudid) injection 0.25 mgJump to med 0.25 mg, IntraVENous, Every 4 hours PRN, moderate pain (4-6), Starting on Tue06/19/24 at 1505, If oral and IV narcotics ordered, use oral first and only use IV if oral is ineffective or cannot take oral. Do Not give oral and IV within 1 hour of each other unless specifically ordered. Or HYDROmorphone (Dilaudid) injection 0.5 mgJump to med 0.5 mg, IntraVENous, Every 4 hours PRN, severe pain (7-10), Starting on Tue06/19/24 at 1505, If oral and IV narcotics ordered, use oral first and only use IV if oral is ineffective or cannot take oral. Do Not give oral and IV within 1 hour of each other unless specifically ordered. Group 2: ondansetron ODT (Zofran-ODT) disintegrating tablet 4 mgJump to med 4 mg, Oral, Every 8 hours PRN, nausea, vomiting, Starting on Tue06/19/24 at 1310, 1st Line. If inadequate response within 60 minutes, proceed to next-line agent or contact provider if no further options ordered. Patient should allow tablet to dissolve on tongue. Do not remove from blister pack until just before administering. Or ondansetron (Zofran) injection 4 mgJump to med 4 mg, IntraVENous, Every 6 hours PRN, nausea, vomiting, Starting on Tue06/19/24 at 1310, 1st Line. Give IV if patient is unable to take orally. If inadequate response within 60 minutes, proceed to next-line agent or contact provider if no further options ordered. Group 3: oxyCODONE (Roxicodone) immediate release tablet 5 mgJump to med 5 mg, Oral, Every 4 hours PRN, moderate pain (4-6), Starting on Tue06/19/24 at 1314 Or oxyCODONE (Roxicodone) immediate release tablet 10 mgJump to med 10 mg, Oral, Every 4 hours PRN, severe pain (7-10), Starting on Tue06/19/24 at 1314 Care Teams (unrecognized sec tion and content) Bar Helper Relationship Specialty Start Date End Date Hayden Herrera APRN SAIL FINISHER MACHINE PCP - General Nurse Practitioner 08/29/17 Bar Helper Relationship Specialty Start Date End Date Hayden Herrera APRN SAIL FINISHER MACHINE PCP - General Nurse Practitioner 08/29/17 Bar Helper Relationship Specialty Start Date End Date Jared Forde MD [address] [place] [address] [address] [place] [address] PCP - General Family Medicine 03/23/24 Jared Pabon PA [address] [place] [address] [place] [phone] Referring Physician Physician Principal Mechanical Engineer 03/23/24 Bar Helper Relationship Specialty Start Date End Date Jared Forde MD [address] [place] [address] [place] [address] PCP - General Family Medicine 03/23/24 Jared Pabon PA [address] [place] [phone] Referring Physician Physician Principal Mechanical Engineer 03/23/24 Bar Helper Relationship Specialty Start Date End Date Jared Forde MD [address] [place] [address] [place] [address] PCP - General Family Medicine 03/23/24 Jared Pabon PA [address] [place] [phone] Referring Physician Physician Principal Mechanical Engineer 03/23/24 Bar Helper Relationship Specialty Start Date End Date Jared Forde MD [address] [place] [address] [place] [address] PCP - General Family Medicine 03/23/24 Jared Pabon PA [address] [place] [phone] Referring Physician Physician Principal Mechanical Engineer 03/23/24 Bar Helper Relationship Specialty Start Date End Date Jared Forde MD [address] [place] [address] [address] [place] [address] PCP - General Family Medicine 03/23/24 Jared Pabon PA [address] [place] [phone] Referring Physician Physician Principal Mechanical Engineer 03/23/24 Bar Helper Relationship Specialty Start Date End Date Jared Forde MD [address] [place] [address] [address] [place] [address] PCP - General Family Medicine 03/23/24 Jared Pabon PA [address] [place] [phone] Referring Physician Physician Principal Mechanical Engineer 03/23/24 Bar Helper Relationship Specialty Start Date End Date Jared Forde MD [address] [place] [address] [address] [place] [address] PCP - General Family Medicine 03/23/24 Jared Pabon PA [address] [place] [phone] Referring Physician Physician Principal Mechanical Engineer 03/23/24 FOR RECORDS PERTAINING TO PATIENTS WHO ARE OR HAVE BEEN ENROLLED IN A CHEMICAL DEPENDENCY/SUBSTANCEABUSE PROGRAM, SOME INFORMATION MAY BE OMITTED. This clinical summary was aggregated from multiple sources. Caution should be exercised in using it in the provision of clinical care. This summary normalizes information from multiple sources, and as a consequence, information in this document may materially change the coding, format and clinical context of patient data. In addition, data may be omitted in some cases. CLINICAL DECISIONS SHOULD BE BASED ON THE PRIMARY CLINICAL RECORDS. [facility]. provides no warranty or guarantee of the accuracy or completeness of information in this document.
== END | disposition home or self-care (01) ==
LOC: CT 06:48
PROVIDERS: PCP Family Medicine; Referring Provider Internal Medicine Critical Care Medicine; Visit Provider Internal Medicine Critical Care Medicine
DX: R91.1 Solitary pulmonary nodule (principal)
CPT/HCPCS: 71250

== ENCOUNTER → 2025-01-04 | Outpatient (CLI) | payer MEDICARE, MEDICAID, SELFPAY ==
--- NOTE | 2025-01-04 12:35 | CT_ITS ---
PROCEDURE: LIMITED CHEST CT CARDIAC ONLY 01/04/2025 REASON FOR EXAM: CORONARY ATHEROSCLEROSIS DUE TO CALCIFIED CORONARY Family history of coronary artery disease. TECHNIQUE: LIMITED CHEST CT CARDIAC ONLY CONTRAST: None One or more dose reduction techniques were used (e.g., Automated exposure control, adjustment of the mA and/or kV according to patient size, use of iterative reconstruction technique). RADIATION DOSE SUMMARY: CTDlvol: 12.19 mGy DLP: 219.42 mGycm COMPARISON: None FINDINGS: Atherosclerotic calcification of the aortic arch. Extensive coronary artery calcification. Mild degree of anterior pericardial thickening. There is a 1.5 cm well-defined non calcified nodule in the lateral aspect of the right lower lobe as seen on axial image number 52. There is also evidence of linear scarring in the lingular segment of the left upper lobe. CT/Limited Chest CT Cardiac Only IMPRESSION: Coronary artery calcification. 1.5 cm well-defined noncalcified nodule in the lateral aspect of the right lowe r lobe as seen on axial image number [address] scan of the thorax following IV contrast recommended for further e valuation. Reading Location: [id number]
--- NOTE | 2025-01-07 07:39 | CA.SCORE ---
Calcium Scoring Date of Study:: 01/04/25 Indications Indications: FH Coronary Calcium Scoring: High-resolution Computed Tomographic imaging of the chest was performed on [01/04/25 ], with particular attention paid to the coronary arteries. Images from the examination were analyzed for the presence and extent of coronary artery calcification , using coronary calcium quantification software. The patient tolerated the procedure well and there were no complications. The results of the coronary calcification analysis are provided below. Findings Coronary Artery Left Main (LM): 109 Left Anterior Descending (LAD): 446 Left Circumflex (LCX): 130 Right Coronary Artery (RCA): 3,808 Total Agatston Score: 4,493 Percentile Ranking: GREATER THAN 90% Calcium Scoring Interpretation: Different methods to categorize the overall amount of coronary plaque. Overall amount CAC SIS Visual of coronary plaque P1 Mild -100 <2 1-2 vessels with mild amount of plaque P2 Moderate 101-300 3-4 1-2 vessels with moderate amount, 3 vessels with mild amount of plaque P3 Severe 301-999 5-7 3 vessels with moderate amount, 1 vessel with severe amount of plaque P4 Extensive >1000 >8 2-3 vessels with severe amount of plaque Calcium Score: Extensive: 2-3 vessels w/severe amount of plaque Conclusion: Severe triple-vessel disease with plaque as noted above
== END | disposition home or self-care (01) ==
LOC: CT 12:33
PROVIDERS: PCP Family Medicine; Referring Provider Family Medicine; Visit Provider Family Medicine
DX: I25.10 Atherosclerotic heart disease of native coronary artery without angina pectoris (principal); I25.84 Coronary atherosclerosis due to calcified coronary lesion
CPT/HCPCS: 75571; 76380

== ENCOUNTER 2025-01-21 08:51 | Emergency (ER) | payer MEDICARE, MEDICAID, SELFPAY ==
[2025-01-21] VITALS (10 sets, daily range): BP systolic 115–151; BP diastolic 66–86; PULSE 61–96; RESP 16–21; TEMP 36.4–36.6; O2SAT 93–100; BMI 34.4
--- NOTE | 2025-01-21 09:12 | EKG12_ITS ---
Test Reason : SOB Blood Pressure : */* mmHG Vent. Rate : 59 BPM Atrial Rate : 59 BPM P-R Int : 182 ms QRS Dur : 76 ms QT Int : 396 ms P-R-T Axes : 55 52 40 degrees QTcB Int : 392 ms Sinus bradycardia Otherwise normal ECG Confirmed by SYBIL YANG ([id number]), editor in chief RUSSELL AHUJA ([id number]) on 01/22/2025 1:07:15 PM Referred By: Confirmed By: SYBIL YANG
--- NOTE | 2025-01-21 09:12 | RAD_ITS ---
PROCEDURE: CHEST PA AND LATERAL 01/21/2025 REASON FOR EXAM: PRODUCTIVE COUGH, DYSPNEA TECHNIQUE: CHEST PA AND LATERAL COMPARISON: None FINDINGS: Hardware: EKG electrodes are seen. Heart: The heart size is normal. Mediastinum: The mediastinal contour is unremarkable. Lungs: Minimal increased markings in the lingular segment of the left upper lobe suggestive of either atelectasis and/or possible early infiltrate. Follow-up recommended. Bones: Degenerative changes are identified within the thoracic spine. RAD/Chest PA and Lateral IMPRESSION: Minimal increased markings in the lingular segment of the left upper lobe sugge stive of atelectasis and/or early infiltrate. Follow-up recommended. Reading Location: [facility]
[2025-01-21] MEDS: Albuterol 2.5 MG/3 ML VIAL.NEB. INHALATION ×3 (09:31)
[2025-01-21 09:33] LABS: Hematocrit 43.8 % (40-54); Hemoglobin 14.7 g/dL (13.0-16.5); Immature Granulocytes Count 0.060 X10^3/uL (0.0-0.0); Mean Corp Hgb Conc 33.6 g/dL (32-36); Mean Corpuscular Volume 94.8 fL (80-94); Mean Platelet Vol. 11.6 fl (6.2-12.0); NRBC Flagged by Analyzer 0 % (0-5); Platelet Count 288 K/mm3 (150-450); RBC Distribution Width CV 13.9 % (11.6-14.6); RBC Distribution Width SD 48.6 fl (35.1-43.9); Red Blood Count 4.62 M/mm3 (4.6-6.2); White Blood Count 8.3 K/mm3 (4.4-11.0)
--- NOTE | 2025-01-21 10:30 | EX.ED.DYSGE1 ---
HPI History of Present Illness Chief Complaint: Chest Pain Detail of Chief Complaint: Left-sided intermittent pleuritic chest pain with productive cough Informant: patient Onset/Context/Timing Onset: Weeks (1 week ago) Context: Sudden Onset Timing: Intermittent Quality: Pain Location: Left lower anterior chest radiating to the abdomen Current Severity: Mild Maximum Severity: Moderate Worsened by: Coughing and breathing Relieved by: Nothing Associated Symptoms Associated Symptoms: Productive cough initially of clear sputum now green Narrative Narrative: Patient is a 49-year-old male. He has a history of a lung nodule right upper lobe that is followed by pulmonary. There is also history of hypercholesterolemia, schizoaffective disorder And anxiety. Review of Dr. Jones's note from February 09, 2024 indicates patient's had left upper quadrant and pain and left lower rib pain in the past. He denied history of COPD however review of prior records again he has history of COPD, PVD, epilepsy, TIA/CVA as well as major depressive disorder with anxiety. 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 Patient presents because of pain that started approximately a week ago that is pleuritic with a cough that was initially clear now colored. He denies fever, chills night sweats. He denies history of PE or DVT. He denies leg pain, swelling discoloration. He denies symptoms of claudication. Patient denies orthopnea or PND. Patient denies exertional pain. There is no radiation of the pain to his jaw, neck shoulders or arms. States it radiates down to left lower quadrant. He has no urologic symptoms. He denies nausea, vomiting diarrhea or constipation. Prior similar symptoms: Yes Recent Illness/Hospitalization: No [facility] Medical History Ataxic gait PVD (peripheral vascular disease) COPD (chronic obstructive pulmonary disease) Epilepsy Schizoaffective disorder CVA (cerebral vascular accident) TIA (transient ischemic attack) Alcohol abuse Hyperlipidemia Major depression Anxiety HTN (hypertension) Encephalopathy Dementia associated with alcoholism Home Medications ?Medication ?Instructions ?Recorded ?Last Taken ?Type acetaminophen 325 mg tablet 650 mg PO Q6H PRN fever or pain 10/05/24 Unknown History (Tylenol) aspirin 81 mg tablet,delayed 81 mg PO QDAY 10/05/24 Unknown History release (Adult Aspirin Regimen) atorvastatin 80 mg tablet 80 mg PO QDAY 10/05/24 Unknown History carboxymethylcellulose sodium 1 % 1 drp ophthalmic (eye) BID 10/05/24 Unknown History eye drops (Artificial Tears (carboxymethylcellulose)) cholecalciferol (vitamin D3) 1,250 1,250 mcg PO MOTH 10/05/24 Unknown History mcg (50,000 unit) capsule divalproex 250 mg tablet,delayed 250 mg PO TID 10/05/24 Unknown History release fenofibrate nanocrystallized 145 145 mg PO QDAY 10/05/24 Unknown History mg tablet folic acid 1 mg tablet 1 mg PO QDAY 10/05/24 Unknown History levetiracetam 750 mg tablet 750 mg PO BID 10/05/24 Unknown History lorazepam 1 mg tablet 1 mg PO BID 10/05/24 Unknown History lorazepam 1 mg tablet 1 mg PO Q6H PRN anxiety 10/05/24 Unknown History magnesium hydroxide 400 mg/5 mL 30 ml PO QDAY PRN constipation 10/05/24 Unknown History oral suspension (Milk of Magnesia) magnesium oxide 500 mg PO QDAY 10/05/24 Unknown History melatonin 3 mg tablet 6 mg PO HS PRN sleep 10/05/24 Unknown History nicotine 10 mg inhalation cartridge 10 mg inhalation Q2H PRN PRN 10/05/24 Unknown History SMOKING ALTERNATIVE trazodone 100 mg tablet 100 mg PO QHS 10/05/24 Unknown History haloperidol 0.5 mg tablet 0.5 mg PO BID 11/20/24 Unknown History ibuprofen 600 mg tablet 600 mg PO TID PRN fever or pain 11/20/24 Unknown History albuterol sulfate 90 mcg/actuation 2 puff inhalation Q4H PRN PRN 01/21/25 Unknown Rx aerosol inhaler (Ventolin HFA) Wheezing ##1 clopidogrel 75 mg tablet 75 mg PO DAILY 01/21/25 Unknown History doxycycline monohydrate 100 mg 100 mg PO BID #10 CAPSULES 01/21/25 Unknown Rx capsule naproxen 500 mg tablet 500 mg PO BID #14 tabs 01/21/25 Unknown Rx nitroglycerin 0.4 mg sublingual 0.4 mg sublingual Q5M PRN chest 01/21/25 Unknown History tablet pain prednisone 20 mg tablet 60 mg (3 x 20 mg) PO DAILY #15 01/21/25 Unknown Rx TABLETS Allergy/AdvReac Type Severity Reaction Status Date / Time No Known Allergies Allergy Verified 11/20/24 13:27 Social History (Updated 01/21/25 @ 10:[address] Eliseo Munson MD) household members: none Smoking Status: Current every day smoker tobacco type: cigarettes ROS ROS ED Constitutional Constitutional ED: Denies chills, fever(s) or subjective Eyes Eyes: Denies blurry vision or change in vision ENT ENT ED: Reports other Details: He does endorse mild congestion. ; Denies ear pain, rhinorrhea or sore throat Cardiovascular Cardiovascular: Reports chest pain; Denies orthopnea, palpitations, paroxysmal nocturnal dyspnea or racing heartbeat Respiratory/Chest Respiratory/Chest: Reports cough, dyspnea, dyspnea on exertion and sputum; Denies orthopnea or paroxysmal nocturnal dyspnea Gastrointestinal Gastrointestinal: Reports abdominal pain; Denies melena, nausea or vomiting Genitourinary Genitourinary ED: Denies dysuria, hematuria or urinary frequency Musculoskeletal Musculoskeletal: Denies arthralgias or myalgias Integumentary Denies rash Neurologic Neurologic: Reports weakness; Denies headache(s) or paresthesias Psychiatric Psychiatric: Denies anxiety or depression Endocrine Endocrinology: Denies cold intolerance or heat intolerance Hematologic/Lymphatic Hematologic/Lymphatic: Reports systems reviewed and no addt'l complaints, except as documented EXAM Physical Exam Const Vital Signs: 01/21/25 08:53 01/21/25 08:54 01/21/25 08:54 Temperature 97.7 F L 97.6 F L Temperature Source Oral Oral Pulse Rate 67 80 80 Respiratory Rate 21 H 16 Respiratory Pattern Blood Pressure 115/72 115/70 118/80 Blood Pressure Mean 86 85 92 Pulse Ox 97 100 98 Oxygen Delivery Method Room Air Room Air 01/21/25 09:34 01/21/25 09:54 01/21/25 09:54 Temperature 97.8 F Temperature Source Oral Pulse Rate 61 80 80 Respiratory Rate 16 18 18 Respiratory Pattern Normal Blood Pressure 118/70 118/70 Blood Pressure Mean 86 86 Pulse Ox 98 98 Oxygen Delivery Method Room Air 01/21/25 10:00 01/21/25 11:00 Temperature 97.8 F 97.8 F Temperature Source Oral Oral Pulse Rate 96 69 Respiratory Rate 19 H 17 Respiratory Pattern Blood Pressure 118/72 131/86 H Blood Pressure Mean 87 101 Pulse Ox 96 96 Oxygen Delivery Method Room Air Room Air Positive well nourished and well developed Constitutional Narrative: Vital signs are unremarkable. General Appearance ED: well developed; Negative for pallor HEENT Reports moist mucous membranes HEENT Narrative: Head is atraumatic and normocephalic. Ears normal. Posterior pharynx is normal Eyes PERRL and EOMs intact bilaterally General Eye ED: Negative for pale conjunctiva or scleral icterus Neck no lymphadenopathy, supple and no JVD Chest Wall inspection of chest normal and palpation of chest normal Resp normal respiratory effort and No clear to auscultation bilaterally Auscultation: rales left base and rhonchi throughout Cardio regular rate, regular rhythm, S1 normal heart sound and no murmurs GI normal to inspection, nondistended, normoactive bowel sounds and non-distended; Negative for non-tender, hepatosplenomegaly or no masses Palpation: soft and tender LUQ; Negative for guarding, splenomegaly, mass or rebound tenderness present Back/Spine no CVA tenderness Extremity Extremity Narrative: Significant scar lateral right knee. This is the reason he is in a wheelchair. When asked why he was in a wheelchair he pulled up his pant leg to show me his scar. Neuro oriented x3 and CN's II-XII intact bilaterally Sensorium / Orientation: alert Psych Mood & Affect: anxious Skin no rashes or lesions noted and no wounds General Skin Exam: elasticity normal; Negative for jaundice or pallor MDM MDM MDM Narrative Medical decision making narrative: Patient's chest pain is not consistent with cardiac. His symptoms are not consistent with pulmonary embolus. Suspect he has a infection that is causing his pleuritic pain. Prior records were reviewed and summarized in the HPI portion of the EMR. Clinically patient does not have evidence of a DVT. When I went to reevaluate patient at [facility] he states his pain was worse. Since his renal panel is not back he was treated with Solu-Medrol which is a anti-inflammatory for his pleuritic pain and will help his COPD exacerbation. Lab Data Attestation: I reviewed the patient's lab results. Lab results narrative: CBC is unremarkable. Electrolyte panel reveals a CO2 of 20.5 and glucose of 129. Anion gap is normal. Liver enzymes are normal. Labs: Laboratory Results - last 24 hr 01/21/25 01/21/25 01/21/25 08:58 10:08 10:41 WBC 8.3 RBC 4.62 Hgb 14.7 Hct 43.8 MCV 94.8 H MCH 31.8 MCHC 33.6 RDW Std Deviation 48.6 H RDW Coeff of Naveed 13.9 Plt Count 288 MPV 11.6 Immature Gran % (Auto) 0.700 Neut % (Auto) 50.5 Lymph % (Auto) 32.3 [place] % (Auto) 10.6 H Eos % (Auto) 5.3 H Baso % (Auto) 0.6 Absolute Neuts (auto) 4.2 Absolute Lymphs (auto) 2.67 Nucleated RBC % 0 Sodium Cancelled Cancelled 139 Potassium Cancelled Cancelled 4.0 Chloride Cancelled Cancelled 104 Carbon Dioxide Cancelled Cancelled 20.5 L Anion Gap Cancelled Cancelled 15 BUN Cancelled Cancelled 16 Creatinine Cancelled Cancelled 0.89 Estim Creat Clear Calc Cancelled Cancelled 100.00 Est GFR (MDRD) Non-Af Cancelled Cancelled 104 BUN/Creatinine Ratio Cancelled Cancelled 18.1 Glucose Cancelled Cancelled 129 H Lactic Acid 1.8 Calcium Cancelled Cancelled 9.1 Total Bilirubin Cancelled Cancelled 0.28 AST Cancelled Cancelled 24 ALT Cancelled Cancelled 21 Alkaline Phosphatase Cancelled Cancelled 46 Total Protein Cancelled Cancelled 7.8 Albumin Cancelled Cancelled 4.3 Globulin Cancelled Cancelled 3.5 Albumin/Globulin Ratio Cancelled Cancelled 1.2 Radiography Chest X-Ray - ED: 2 View and Read by ED Physician (Patient with normal cardiac silhouette and size. [place] appears normal. There is degenerative changes in the thoracic spine. Patient has some abnormal findings left upper lobe which may represent atelectasis, scarring or possible early infiltrate.) Diagnostic Testing: Clinical Impression(s) from Imaging Studies Chest X-Ray 01/21/25 09:12 IMPRESSION: Minimal increased markings in the lingular segment of the left upper lobe suggestive of atelectasis and/or early infiltrate. Follow-up recommended. Reading Location: [id number] Differential Diagnosis Chest pain/SOB: pulmonary embolism Reason(s) PE less likely: Positive for Well's <3, not tachycardic and not hypoxic, ACS ACS: Positive for EKG without ischemia and history not suggestive of ischemia pain, pneumothorax Reason(s) pneumothorax less likely: Positive for bilateral breath sounds and HOG RIBBER withhout PTX, aortic dissection Reason(s) Aortic dissection less likely:: Positive for normal vascular exam, normal neurological exam, no significant risk factors for dissection, no widened mediastinum on CXR, pain not sudden onset, no ripping/tearing pain, no pain to back and blood pressure appropriate in ED and CHF Reason(s) CHF less likely: Positive for no significant peripheral edema, no orthopnea and no evidence of fluid overload on CXR Treatment and Re-Evaluation :: Patient was reassessed at 1215. His pain has improved he still has it. Still has some wheezing. In light of the fact that he is purulent sputum history of COPD and still wheezing will place on short course of doxycycline, burst of prednisone and NSAIDs since she has normal renal function. Discharge Plan Triage Chief Complaint: Chest Pain ED Provider: Eliseo Munson Dx/Rx/DC Orders Clinical Impression: Acute exacerbation of chronic obstructive pulmonary disease, Schizoaffective disorder, Lung nodule, Nicotine dependence, cigarettes, uncomplicated, Acute exacerbation of chronic bronchitis, Acute bronchospasm, Chest pain, pleuritic Instructions: ED COPD Flare Prescriptions: New prednisone 20 mg tablet 60 mg PO DAILY Qty: 15 0RF doxycycline monohydrate 100 mg capsule 100 mg PO BID Qty: 10 0RF albuterol sulfate [Ventolin HFA] 90 mcg/actuation HFA aerosol inhaler 2 puff inhalation Q4H PRN PRN (Reason: Wheezing) Qty: 1 0RF naproxen 500 mg tablet 500 mg PO BID Qty: 14 0RF No Action Artificial Tears (cmc) 1 % drops 1 drp ophthalmic (eye) BID aspirin [Adult Aspirin Regimen] 81 mg tablet,delayed release (DR/EC) 81 mg PO QDAY lorazepam 1 mg tablet 1 mg PO BID lorazepam 1 mg tablet 1 mg PO Q6H PRN (Reason: anxiety) atorvastatin 80 mg tablet 80 mg PO QDAY cholecalciferol (vitamin D3) 1,250 mcg (50,000 unit) capsule 1,250 mcg PO MOTH divalproex 250 mg tablet,delayed release (DR/EC) 250 mg PO TID fenofibrate nanocrystallized 145 mg tablet 145 mg PO QDAY folic acid 1 mg tablet 1 mg PO QDAY levetiracetam 750 mg tablet 750 mg PO BID magnesium oxide 500 mg magnesium tablet 500 mg PO QDAY melatonin 3 mg tablet 6 mg PO HS PRN (Reason: sleep) magnesium hydroxide [Milk of Magnesia] 400 mg/5 mL suspension 30 ml PO QDAY PRN (Reason: constipation) nicotine 10 mg cartridge 10 mg inhalation Q2H PRN PRN (Reason: SMOKING ALTERNATIVE) Rx Instructions: Do not exceed 8 cartridge per day trazodone 100 mg tablet 100 mg PO QHS acetaminophen [Tylenol] 325 mg tablet 650 mg PO Q6H PRN (Reason: fever or pain) haloperidol 0.5 mg tablet 0.5 mg PO BID ibuprofen 600 mg tablet 600 mg PO TID PRN (Reason: fever or pain) clopidogrel 75 mg tablet 75 mg PO DAILY nitroglycerin 0.4 mg tablet, sublingual 0.4 mg sublingual Q5M PRN (Reason: chest pain) Primary Care Provider: All Ryder Referrals: All Ryder MD [Primary Care Provider] - Print Language: [place] Disposition Disposition: Home, Self Care
[2025-01-21 11:46] LABS: AST(SGOT) 24 U/L (<=37); Alanine Aminotransfer ALT/SGPT 21 U/L (<=46); Albumin, Serum 4.3 g/dL (3.5-5.0); Alkaline Phosphatase 46 U/L (40-129); Anion Gap 15 (5-15); BUN 16 mg/dL (4-19); BUN/Creat Ratio 18.1 RATIO (10-20); Calcium,Total 9.1 mg/dL (7.6-11.0); Carbon Dioxide 20.5 mmol/L (21.0-32.0); Chloride 104 mmol/L (98-108); Estimated Creatinine Clearance 100.00 ml/min (50-250); Globulin 3.5 g/dL (2.2-4.2); Glucose 129 mg/dL (70-99); Potassium 4.0 mmol/L (3.3-5.1)
--- NOTE | 2025-01-21 14:03 | ED.RN ---
Report called to longterm
== END 2025-01-21 14:17 | disposition home or self-care (01) ==
PROVIDERS: Emergency Provider Emergency Medicine; PCP Family Medicine; Visit Provider Emergency Medicine
DX: J44.1 Chronic obstructive pulmonary disease with (acute) exacerbation (principal); F25.9 Schizoaffective disorder, unspecified; F10.27 Alcohol dependence with alcohol-induced persisting dementia; E78.00 Pure hypercholesterolemia, unspecified; F17.210 Nicotine dependence, cigarettes, uncomplicated; J98.01 Acute bronchospasm; I10 Essential (primary) hypertension; R07.89 Other chest pain; R91.1 Solitary pulmonary nodule
CPT/HCPCS: 71046; 80053; 83605; 85025; 93005; 94640; 96374; 96375; 99285; A4216

== ENCOUNTER 2025-02-01 02:32 | Emergency (ER) | payer MEDICARE, MEDICAID, SELFPAY ==
[2025-02-01] VITALS (16 sets, daily range): BP systolic 112–136; BP diastolic 50–87; PULSE 60–72; RESP 12–23; TEMP 36.6–36.8; O2SAT 92–98; BMI 33.8
--- NOTE | 2025-02-01 02:41 | EX.ED.DYSGE1 ---
HPI History of Present Illness Chief Complaint: Chest Pain Informant: patient, EMS and SNF Narrative Narrative: Patient is a 49-year-old male who [facility] with past medical history of hypertension hyperlipidemia schizoaffective disorder epilepsy and COPD. Nursing reports that he has been complaining of left-sided chest pain. Patient reports that this is due to coughing for 1 to 2 weeks but he does have reported history of coronary artery disease and therefore they were concerned this could be ACS and he was sent in for evaluation. The patient reports he has had mild congestion drainage and cough for 1 to 2 weeks. He states has been no fevers or chills or known sick contacts. He states he was tested for COVID 1 to 2 weeks ago which was negative. He states that pain worsens when he coughs or if someone pushes on his chest but is otherwise mild. He denies any nausea vomiting diaphoresis or shortness of breath. However as jail had concern that this was cardiac he was sent in for evaluation. Patient states he is concerned this is infectious in nature [facility] Medical History Ataxic gait PVD (peripheral vascular disease) COPD (chronic obstructive pulmonary disease) Epilepsy Schizoaffective disorder CVA (cerebral vascular accident) TIA (transient ischemic attack) Alcohol abuse Hyperlipidemia Major depression Anxiety HTN (hypertension) Encephalopathy Dementia associated with alcoholism Home Medications ?Medication ?Instructions ?Recorded ?Last Taken ?Type acetaminophen 325 mg tablet 650 mg PO Q6H PRN fever or pain 10/05/24 Unknown History (Tylenol) aspirin 81 mg tablet,delayed 81 mg PO QDAY 10/05/24 Unknown History release (Adult Aspirin Regimen) atorvastatin 80 mg tablet 80 mg PO QDAY 10/05/24 Unknown History carboxymethylcellulose sodium 1 % 1 drp ophthalmic (eye) BID 10/05/24 Unknown History eye drops (Artificial Tears (carboxymethylcellulose)) cholecalciferol (vitamin D3) 1,250 50,000 unit PO MOTH 10/05/24 Unknown History mcg (50,000 unit) capsule divalproex 250 mg tablet,delayed 250 mg PO TID 10/05/24 Unknown History release fenofibrate nanocrystallized 145 145 mg PO QDAY 10/05/24 Unknown History mg tablet folic acid 1 mg tablet 1 mg PO QDAY 10/05/24 Unknown History levetiracetam 750 mg tablet 750 mg PO BID 10/05/24 Unknown History lorazepam 1 mg tablet 1 mg PO BID 10/05/24 Unknown History lorazepam 1 mg tablet 1 mg PO Q6H PRN anxiety 10/05/24 Unknown History magnesium hydroxide 400 mg/5 mL 30 ml PO QDAY PRN constipation 10/05/24 Unknown History oral suspension (Milk of Magnesia) magnesium oxide 500 mg PO QDAY 10/05/24 Unknown History melatonin 3 mg tablet 6 mg PO HS PRN sleep 10/05/24 Unknown History nicotine 10 mg inhalation cartridge 10 mg inhalation Q2H PRN PRN 10/05/24 Unknown History SMOKING ALTERNATIVE trazodone 100 mg tablet 100 mg PO QHS 10/05/24 Unknown History haloperidol 0.5 mg tablet 0.5 mg PO BID 11/20/24 Unknown History ibuprofen 600 mg tablet 600 mg PO TID PRN fever or pain 11/20/24 Unknown History albuterol sulfate 90 mcg/actuation 2 puff inhalation Q4H PRN PRN 01/21/25 Unknown Rx aerosol inhaler (Ventolin HFA) Wheezing ##1 clopidogrel 75 mg tablet 75 mg PO DAILY 01/21/25 Unknown History nitroglycerin 0.4 mg sublingual 0.4 mg sublingual Q5M PRN chest 01/21/25 Unknown History tablet pain hydrocodone-homatropine 5 mg-1.5 5 ml PO 4X/DAY PRN cough/pain 7 02/01/25 Unknown Rx mg/5 mL (5 mL) oral solution days #140 mL (Hycodan) umeclidinium 62.5 mcg-vilanterol 1 ea inhalation DAILY 02/01/25 Unknown History 25 mcg/actuation powdr for inhalation (Anoro Ellipta) Allergy/AdvReac Type Severity Reaction Status Date / Time No Known Allergies Allergy Verified 02/01/25 02:36 Social History (Updated 01/21/25 @ 10:[address] Eliseo Munson MD) household members: none Smoking Status: Current every day smoker tobacco type: cigarettes ROS ROS ED Constitutional Constitutional ED: Denies chills or fever(s) ENT ENT ED: Reports rhinorrhea and sore throat Cardiovascular Cardiovascular: Reports chest pain; Denies palpitations or racing heartbeat Respiratory/Chest Respiratory/Chest: Reports cough; Denies dyspnea Gastrointestinal Gastrointestinal: Denies abdominal pain, diarrhea, nausea or vomiting Genitourinary Genitourinary ED: Denies dysuria Musculoskeletal Musculoskeletal: Denies back pain Integumentary Denies rash Neurologic Neurologic: Denies headache(s) Hematologic/Lymphatic Hematologic/Lymphatic: Denies easy bleeding or easy bruising EXAM Physical Exam Const Vital Signs: 02/01/25 02:33 02/01/25 03:00 02/01/25 03:00 Temperature 98.3 F Temperature Source Oral Pulse Rate 69 Respiratory Rate 23 H Blood Pressure 118/67 112/50 L 112/50 L Blood Pressure Mean 84 63 63 Pulse Ox 95 Oxygen Delivery Method Room Air 02/01/25 03:12 02/01/25 03:22 02/01/25 03:30 Temperature Temperature Source Pulse Rate 66 66 67 Respiratory Rate 21 H 21 H 21 H Blood Pressure 125/81 H Blood Pressure Mean 93 Pulse Ox 94 93 93 Oxygen Delivery Method 02/01/25 03:45 02/01/25 04:00 02/01/25 04:15 Temperature Temperature Source Pulse Rate 63 66 63 Respiratory Rate 12 17 18 Blood Pressure 136/79 H Blood Pressure Mean 95 Pulse Ox 92 94 98 Oxygen Delivery Method 02/01/25 04:30 02/01/25 04:45 02/01/25 05:00 Temperature Temperature Source Pulse Rate 60 69 62 Respiratory Rate 18 17 17 Blood Pressure 134/82 H 131/87 H Blood Pressure Mean 99 100 Pulse Ox 94 96 95 Oxygen Delivery Method 02/01/25 05:15 02/01/25 05:30 02/01/25 05:45 Temperature Temperature Source Pulse Rate 72 67 69 Respiratory Rate 14 19 H 16 Blood Pressure 136/86 H Blood Pressure Mean 102 Pulse Ox 95 94 Oxygen Delivery Method 02/01/25 06:00 Temperature Temperature Source Pulse Rate 60 Respiratory Rate 17 Blood Pressure 130/86 H Blood Pressure Mean 95 Pulse Ox Oxygen Delivery Method Positive well nourished, well developed and obese General Appearance ED: well developed; Negative for pallor Nutritional Appearance: obese HEENT HEENT Narrative: Normocephalic atraumatic No tongue or lip swelling no oral lesions no airway edema or compromise Cobblestoning is noted in the posterior pharynx consistent with sinus drainage; no secondary findings to suggest infection Nasal mucosa is hyperemic and boggy Eyes PERRL and EOMs intact bilaterally General Eye ED: Negative for scleral icterus Neck supple and no JVD Chest Wall Chest Narrative: There is reproducible left anterior lateral chest wall pain with palpation rib regions 5-7. There is no bony deformity or subcutaneous emphysema noted Patient states the pain with palpation is the same pain he has been experiencing No overlying soft tissue changes to suggest trauma or infection Resp normal respiratory effort Resp Narrative: Breath sounds are diminished throughout with faint rhonchi in the bilateral lower lobes However no nasal flaring retractions tachypnea or accessory muscle use Cardio regular rate and regular rhythm Rate: other Other Details: Heart is regular rate and rhythm Radial and carotid pulses are equal and symmetric GI normal to inspection, nondistended, normoactive bowel sounds, non-tender, non-distended and no masses GI Narrative: No voluntary guarding or rigidity or pulsatile mass Auscultation: normoactive bowel sounds Palpation: soft Extremity normal to inspection Extremity Narrative: No asymmetric edema no pitting edema negative Homans' sign bilaterally Neuro oriented x3 and CN's II-XII intact bilaterally Sensorium / Orientation: alert Psych mental status grossly normal Skin no rashes or lesions noted and no wounds General Skin Exam: Negative for jaundice or pallor MDM MDM MDM Narrative Medical decision making narrative: Patient arrived to the ER with stable vitals. He reported he has been having congestion and cough for 1 to 2 weeks and left-sided chest pain mainly with coughing. He does have cardiovascular risk factors and therefore there is potential this is atypical presentation for acute coronary syndrome. However patient with his persistent coughing could have pneumonia or a spontaneous pneumothorax or rib fracture. Secondary to this a chest x-ray was obtained. Based on the fact he stays in a jail he could also have picked up a viral infection such as COVID influenza or RSV. Therefore basic labs were obtained with viral swab and chest x-ray. Patient is EKG showed no signs of cardiac dysrhythmia or acute ischemia. His troponin was normal at 12 and the 2-hour delta trended down by 1 point to a value of 11 going against ACS. Chest x-ray revealed no acute rib fracture or pneumothorax or infiltrate and this correlates with his stable vitals and no white count or left shift. After receiving pain medication the patient's vitals remained stable and he reported feeling better. Therefore this time he is not in respiratory distress he does not have underlying pneumonia or pneumothorax or rib fracture and there are no signs of acute coronary syndrome. This is still most likely viral in nature and I do not feel the need for antibiotic but he will be prescribed symptomatic medication regarding his cough and is otherwise safe for discharge History & Record Review Discussion w/independent historian: EMS personnel and Patient Lab Data Attestation: I reviewed the patient's lab results. Labs: Laboratory Results - last 24 hr 02/01/25 02/01/25 03:00 03:30 WBC 8.9 RBC 4.69 Hgb 14.9 Hct 44.4 MCV 94.7 H MCH 31.8 MCHC 33.6 RDW Std Deviation 48.8 H RDW Coeff of Naveed 14.0 Plt Count 116 L MPV 11.9 Immature Gran % (Auto) 0.800 Neut % (Auto) 50.3 Lymph % (Auto) 34.9 [place] % (Auto) 10.5 H Eos % (Auto) 2.7 Baso % (Auto) 0.8 Absolute Neuts (auto) 4.5 Absolute Lymphs (auto) 3.09 Nucleated RBC % 0 Platelet Estimate SLT DEC Sodium Cancelled 138 Potassium Cancelled 4.4 Chloride Cancelled 105 Carbon Dioxide Cancelled 21.0 Anion Gap Cancelled 12 BUN Cancelled 21 H Creatinine Cancelled 0.91 Estim Creat Clear Calc Cancelled 96.88 Est GFR (MDRD) Non-Af Cancelled 102 BUN/Creatinine Ratio Cancelled 23.0 H Glucose Cancelled 112 H Calcium Cancelled 9.4 Magnesium Cancelled 2.0 Troponin T High Sens Cancelled 12 Radiography Diagnostic Testing: Clinical Impression(s) from Imaging Studies Chest X-Ray 02/01/25 03:20 IMPRESSION: Mild bilateral basilar atelectatic pulmonary changes. Reading Location: [place] [id number] 2 view chest x-ray as interpreted by the emergency medicine physician reveals bibasilar atelectasis without acute infiltrate pneumothorax or rib fracture Discharge Plan Triage Chief Complaint: Chest Pain ED Provider: Kee Bruner Dx/Rx/DC Orders Clinical Impression: Acute chest wall pain, Viral upper respiratory tract infection with cough, Schizoaffective disorder, Nicotine dependence, cigarettes, uncomplicated, Hypertension, Hyperlipidemia Instructions: ED Chest Wall Pain, Costochondritis, ED URI, Viral, No Abx (Adult) Prescriptions: New hydrocodone-homatropine [Hycodan] 5-1.5 mg/5 mL (5 mL) solution 5 ml PO 4X/DAY PRN (Reason: cough/pain) 7 Days Qty: 140 0RF No Action Artificial Tears (cmc) 1 % drops 1 drp ophthalmic (eye) BID aspirin [Adult Aspirin Regimen] 81 mg tablet,delayed release (DR/EC) 81 mg PO QDAY lorazepam 1 mg tablet 1 mg PO BID lorazepam 1 mg tablet 1 mg PO Q6H PRN (Reason: anxiety) atorvastatin 80 mg tablet 80 mg PO QDAY cholecalciferol (vitamin D3) 1,250 mcg (50,000 unit) capsule 50,000 unit PO MOTH Rx Instructions: mondays and divalproex 250 mg tablet,delayed release (DR/EC) 250 mg PO TID fenofibrate nanocrystallized 145 mg tablet 145 mg PO QDAY folic acid 1 mg tablet 1 mg PO QDAY levetiracetam 750 mg tablet 750 mg PO BID magnesium oxide 500 mg magnesium tablet 500 mg PO QDAY melatonin 3 mg tablet 6 mg PO HS PRN (Reason: sleep) magnesium hydroxide [Milk of Magnesia] 400 mg/5 mL suspension 30 ml PO QDAY PRN (Reason: constipation) nicotine 10 mg cartridge 10 mg inhalation Q2H PRN PRN (Reason: SMOKING ALTERNATIVE) Rx Instructions: Do not exceed 8 cartridge per day trazodone 100 mg tablet 100 mg PO QHS acetaminophen [Tylenol] 325 mg tablet 650 mg PO Q6H PRN (Reason: fever or pain) haloperidol 0.5 mg tablet 0.5 mg PO BID ibuprofen 600 mg tablet 600 mg PO TID PRN (Reason: fever or pain) clopidogrel 75 mg tablet 75 mg PO DAILY nitroglycerin 0.4 mg tablet, sublingual 0.4 mg sublingual Q5M PRN (Reason: chest pain) albuterol sulfate [Ventolin HFA] 90 mcg/actuation HFA aerosol inhaler 2 puff inhalation Q4H PRN PRN (Reason: Wheezing) Qty: 1 0RF umeclidinium-vilanterol [Anoro Ellipta] 62.5-25 mcg/actuation blister with device 1 ea inhalation DAILY Primary Care Provider: All Ryder Referrals: All Ryder MD [Primary Care Provider] - Activity Restrictions/Additional Instructions: Your workup today showed no signs of active heart damage. Your chest x-ray revealed no signs of pneumonia or rib fracture or a pneumothorax/hole in your lung. Your symptoms are consistent with a viral upper respiratory tract infection which will last on average 3 weeks and this is led to strain of the muscles in between your ribs as well as inflammation at the site. Please take the prescribed medication from the ER to help reduce cough and pain and return to the ER should you have any further concerns. Print Language: Swedish Disposition Disposition: Home, Self Care
[2025-02-01] MEDS: Orphenadrine 100 MG Tablet PO (03:04)
[2025-02-01 03:08] LABS: Hematocrit 44.4 % (40-54); Hemoglobin 14.9 g/dL (13.0-16.5); Immature Granulocytes Count 0.070 X10^3/uL (0.0-0.0); Mean Corp Hgb Conc 33.6 g/dL (32-36); Mean Corpuscular Volume 94.7 fL (80-94); Mean Platelet Vol. 11.9 fl (6.2-12.0); NRBC Flagged by Analyzer 0 % (0-5); POSITIVE COUNT YES; RBC Distribution Width CV 14.0 % (11.6-14.6); RBC Distribution Width SD 48.8 fl (35.1-43.9); Red Blood Count 4.69 M/mm3 (4.6-6.2); White Blood Count 8.9 K/mm3 (4.4-11.0)
--- NOTE | 2025-02-01 03:20 | RAD_ITS ---
PROCEDURE: CHEST PA AND LATERAL 02/01/2025 REASON FOR EXAM: COUGH TECHNIQUE: Procedure Code: RADCXR Modality: DX Procedure: CHEST PA AND LATERAL COMPARISON: 01/21/2025. FINDINGS: Mild bilateral basilar atelectatic pulmonary changes. There is no demonstrated pleural abnormality. Normal heart and pericardium. Normal mediastinum and melissa. Normal visualized pulmonary arteries. Normal visualized aortic arch and descending thoracic aorta. Normal visualized thoracic spine. Normal visualized ribs, clavicles, and shoulders. There is no demonstrated abnormality of the visualized soft tissue structures of the upper abdomen. RAD/Chest PA and Lateral IMPRESSION: Mild bilateral basilar atelectatic pulmonary changes. Reading Location: [facility]
[2025-02-01 03:26] LABS: Differential Indicated SCAN CRITERIA MET
--- NOTE | 2025-02-01 03:29 | EKG12_ITS ---
Test Reason : CP Blood Pressure : */* mmHG Vent. Rate : 67 BPM Atrial Rate : 67 BPM P-R Int : 186 ms QRS Dur : 74 ms QT Int : 378 ms P-R-T Axes : 24 41 12 degrees QTcB Int : 399 ms Normal sinus rhythm Normal ECG Confirmed by SANDY QUNIN, URIEL ([id number]), school photograph editor DAYAN OWENS ([id number]) on 02/04/2025 9:09:11 AM Referred By: Confirmed By: URIEL DELGADO MD
--- OUTSIDE RECORDS SUMMARY | 2025-02-01 03:33 | XMS RPT_ITS | CCD ---
Author Organization [facility] Care Team Providers Care Latin American Studies Director Name Role Phone [facility] Primary Care Provider JOVON HOPKINS Attending Unavailable Oakley [employer], Megargel Primary Care Provider Oakley [employer], Megargel Primary Care Provider Oakley [employer], Megargel Primary Care Provider [facility] Primary Care Unavailable RODNEY VARGAS Admitting Unavailable JOHNSON PAN Attending Unavailable EMETERIO ALCANTARA Consulting Unavailable EMETERIO ALCANTARA Consulting Unavailable KESHAWN CANALES II Referring Unavailable [facility] Primary Care Unavailable JOCELYN RIVERA Attending Unavailable [facility] Primary Care Unavailable KESHAWN CANALES II Referring Unavailable [facility] Primary Care Unavailable [facility] Primary Care Unavailable JOESPH GUERRERO Admitting Unavailable MEDONE, SERVICE Attending Unavailable MEDONE, SERVICE Consulting Unavailable BETHANY GARCIA Consulting Unavailable [facility] Primary Care Unavailable ANGELA DENSON Referring Unavailable DAVID ZALDIVAR Admitting Unavailable IVIS DENSONY Attending Unavailable JAMISON KIDD Attending Unavailable [facility] Primary Care Unavailable DAVID ZALDIVAR Admitting Unavailable BERNABE, JAMISON Referring Unavailable [facility] Primary Care Unavailable DEUCE THOMPSON Attending Unavailable KRAY, DEUCE Referring Unavailable [facility] Primary Care Unavailable KRADEUCE Jaimes Attending Unavailable KRAY, DEUCE Referring Unavailable [facility] Primary Care Unavailable DEUCE THOMPSON Attending Unavailable KRAY, DEUCE Referring Unavailable [facility] Primary Care Unavailable DEUCE THOMPSON Attending Unavailable KRAY, DEUCE Referring Unavailable HERRERA, HAYDEN Primary Care Unavailable KRAY, DEUCE Attending Unavailable KRAY, DEUCE Referring Unavailable HERRERA, HAYDEN Primary Care Unavailable KRAY, DEUCE Referring Unavailable KRAY, DEUCE Attending Unavailable SPICHIGER, JAMISON Attending Unavailable HERRERA, HAYDEN Primary Care Unavailable SPICHIGER, JAMISON Referring Unavailable SPICHIGER, JAMISON Referring Unavailable SPICHIGER, JAMISON Attending Unavailable HERRERA, HAYDEN Primary Care Unavailable DAVID ZALDIVAR Admitting Unavailable HERRERA, HAYDEN Primary Care Unavailable HERRERA, HAYDEN Attending Unavailable JAVIER JACQUES Attending Unavailable HERRERA, HAYDEN Referring Unavailable HERRERA, HAYDEN Primary Care Unavailable Jared Huff Unavailable Jared [...] Admitting Unavailable JARED FORDE Primary Care Unavailable Dr. Jared Forde MD Primary Care Provider Dr. Jared Forde MD Referring Provider Dr. Duarte Infante DO Attending Provider Dr. Duarte Infante DO Referring Provider Eloise MANZANARES-CEli Attending Provider Dr. Jared Forde MD Attending Provider Dr. Jared Forde MD Other Provider Dr. Denis Vivar MD Attending Provider Dr. Eliseo Munson MD Emergency Provider [phone] Unavailable Primary Care Provider UnavailLILO Bruce Attending Unavailable Jared Forde Referring Unavailable Duarte Infante Attending Unavailable Jared Forde Primary Care Unavailable Eli Navas NP Attending Unavailable Jared Forde Primary Care Unavailable Jared Forde Referring Unavailable Denis Vivar Attending Unavailable Jared Forde Primary Care Unavailable Jared Forde Consulting Unavailable Jared Forde Referring Unavailable Sanjuanita Munsono Attending Unavailable aJred Forde Primary Care Unavailable Jared Forde Primary Care Unavailable Nav Amanda Attending Unavailable Duarte Infante Referring Unavailable Jared Forde Primary Care Unavailable Duarte Infante Attending Unavailable Jared Forde Primary Care Unavailable Jared Forde Attending Unavailable Jared Forde Referring Unavailable Jared Forde Referring Unavailable Jared Forde Primary Care Unavailable Jared Forde Attending Unavailable Jared Forde Referring Unavailable Jared Forde Primary Care Unavailable Jared Forde Attending Unavailable Medications Current Medications Medication Drug Class(es) Dates Sig (Normalized) Sig (Original) acetaminophen 325 mg oral tablet (20 sources) Start: 10-05-2024 take 2 tablets by mouth every six hours as needed for pain Acetaminophen (Tylenol) 325 mg tablet Active 650 mg PO EVERY 6 HOURS as needed for fever or pain October 05, 2024 12:00am Start: 06-20-2024 End: 06-20-2024 IntraVENous, Administer over [...] Tue06/24/21 at 1858, Until 07/05/21 at 0338 Maximum dose of acetaminophen is 4000 mg from all sources in 24 hours. Start: 01-20-2021 Start: 12-28-2020 take 650 mg by mouth every four hours as needed for pain, then take 4000 mg by mouth every twenty-four hours as needed for pain 650 mg, Oral, EVERY 4 HOURS PRN, Mild Pain, Starting on Tue12/28/20 at 2210, Until Discontinued Maximum dose of [...] Start: 05-15-2019 acetaminophen (TYLENOL) tablet 650 mg [id number] 200 actuat albuterol 0.09 mg/actuat metered dose inhaler (18 sources) beta2-Adrenergic Agonist Start: 01-21-2025 take 2 puff(s) by inhalation every four hours for wheezing albuterol 90 mcg/actuation inhaler Inhale 2 puffs every 4 hours if needed for wheezing. 01/21/2025 Active Start: 01-21-2025 Albuterol Sulf ate (Ventolin Hfa) 90 mcg/actuation HFA aerosol inhaler Active 2 NMA INHALATION EVERY 4 HOURS NEEDED as needed for Wheezing 1 January 21, 2025 12:00am Start: 04-28-2021 End: 07-04-2021 Start: 02-17-2021 Albuterol [...] BREATH. 18 g 4 04/03/2019 Active albuterol 108 (90 Base) MCG/ACT inhaler (7 sources) Start: 03-20-2020 take 2 puff(s) by inhalation every four hours as needed for wheezing albuterol 108 (90 Base) Arjun Leon NP Work Phone: Start: 01-04-2021 Ct head/brain w/o co ntrast material Darinel Pete MD Work Phone: Start: 01-04-2021 Basic metabolic pane l calcium total Tory Chawla [employer] Work Phone: Start: 01-04-2021 CBC W Auto Different ial panel - Blood Tory Chawla [employer] Work Phone: Start: 01-04-2021 GLOMERULAR FILTRATION RATE Tory Chawla [employer] Work Phone: Start: 01-04-2021 Hepatic function panel Arjun Leon NP Work Phone: Start: 01-03-2021 Basic metabolic pane l calcium total Tory Chawla [employer] Work Phone: Start: 01-03-2021 CBC W Auto Different ial panel - Blood Tory Chawla [employer] Work Phone: Start: 01-03-2021 GLOMERULAR FILTRATION RATE Tory Chawla [employer] Work Phone: Start: 01-03-2021 Hepatic function panel Arjun Leon NP Work Phone: Start: 01-02-2021 Basic metabolic pane l calcium total Tory Chawla [employer] Work Phone: Start: 01-02-2021 CBC W Auto Different ial panel - Blood Tory Chawla [employer] Work Phone: Start: 01-02-2021 GLOMERULAR FILTRATION RATE Otry Chawla [employer] Work Phone: Start: 01-02-2021 Hepatic function panel Arjun Leon NP Work Phone: Start: 01-01-2021 Basic metabolic pane l calcium total Tory Chawla [employer] Work Phone: Start: 01-01-2021 CBC W Auto Different ial panel - Blood Tory Chawla APRN STEEL [employer]TER Work Phone: Start: 01-01-2021 GLOMERULAR FILTRATION RATE Tory Chawla APRN STEEL [employer]TER Work Phone: Start: 01-01-2021 Hepatic function panel Arjun Leon NP Work Phone: Start: 12-31-2020 Basic metabolic pane l calcium total Tory Chawla APRN STE[employer] Work Phone: Start: 12-31-2020 CBC W Auto Different ial panel - Blood Tory Chawla APRN STEEL [employer]TER Work Phone: Start: 12-31-2020 GLOMERULAR FILTRATION RATE Tory Chawla APRN STEEL [employer]TER Work Phone: Start: 12-31-2020 Hepatic function panel Arjun Leon TECHNICAL SME Work Phone: Start: 12-30-2020 Basic metabolic pane l calcium total Tory Chawla APRN STE[employer] Work Phone: Start: 12-30-2020 CBC W Auto Different ial panel - Blood Tory Chawla APRN STEEL [employer]TER Work Phone: Start: 12-30-2020 GLOMERULAR FILTRATION RATE Tory Chawla APRN STEEL [employer]TER Work Phone: Start: 12-30-2020 Ecg routine ecg w/le ast 12 lds trcg only w/o i&r Tory Chawla APRN STEEL [employer]TER Work Phone: Start: 12-30-2020 Assay of magnesium Kelsey abeth Jose JACOBSENN STEEL FITTER Work Phone: Start: 12-29-2020 Drug screen quantita tive alcohols Ingrisrema Fieldsroshan VASQUEZ TECHNICAL SME Work Phone: Start: 12-29-2020 End: 12-29-2020 Assay of magnesium Ingris Gustafson APRN TECHNICAL SME Work Phone: Start: 12-29-2020 Drug screen quantita tive alcohols Ingris Gustafson APRN TECHNICAL SME Work Phone: Start: 12-29-2020 Drug tst prsmv instr mnt chem analyzers pr date Tory Chawla APRN STEEL [employer] Work Phone: Start: 12-29-2020 Basic metabolic pane l calcium total Tory Chawla APRN STE[employer]TER Work Phone: Start: 12-29-2020 CBC W Auto Different ial panel - Blood Tory Chawla APRN STEEL [employer]TER Work Phone: Start: 12-29-2020 GLOMERULAR FILTRATION RATE Tory Chawla APRN STEEL FITTER Work Phone: Start: 12-29-2020 Lipid panel Tory Chawla APRN STEEL [employer]TER Work Phone: Start: 12-29-2020 Lipid 1996 panel [...] Start: 11-19-2020 Cyanocobalamin vitam in b-12 Magali Ohara Edgar MILLS Work Phone: Start: 11-18-2020 Potassium serum plasma/whole blood Arjun Leon NP Work Phone: Start: 11-17-2020 Basic metabolic pane l calcium total Magali Hernández PA Work Phone: Start: 11-17-2020 GLOMERULAR FILTRATION RATE Magali Hernández GENE Work Phone: Start: 11-16-2020 Potassium serum plasma/whole blood Magali Hernández GENE Work Phone: Start: 11-16-2020 Drug tst prsmv instr mnt chem analyzers pr date Maxine MILLS Work Phone: Start: 11-16-2020 Basic metabolic pane l calcium total Maxine MILLS Work Phone: Start: 11-16-2020 CBC W Auto Different ial panel - Blood Maxine MILLS Work Phone: Start: 11-16-2020 GLOMERULAR FILTRATION RATE Maxine MILLS Work Phone: Start: 11-16-2020 Assay of lactate Maxine MILLS Work Phone: Start: 11-16-2020 Iaad ia hepatitis [...] Potassium serum plasma/whole blood Arjun Bahena APRN STEEL [employer]TER Work Phone: Start: 09-30-2020 Basic metabolic pane l calcium total Arjun Bahena APRN STEEL [employer]TER Work Phone: Start: 09-30-2020 CBC W Auto Different ial panel - Blood Arjun Bahena APRN STEEL [employer]TER Work Phone: Start: 09-30-2020 GLOMERULAR FILTRATION RATE Arjun Bahena APRN STEEL FITTER Work Phone: Start: 09-29-2020 Radiologic exam swal low function contrast study Ayaz Lund MD Work Phone: Start: 09-29-2020 GLOMERULAR FILTRATION RATE Ángel Rodríguez MD Work Phone: Start: 09-29-2020 Renal function panel De annalise Rodríguez MD Work Phone: Start: 09-29-2020 Basic metabolic pane l calcium total Arjun Bahena APRN STEEL FITTER Work Phone: Start: 09-29-2020 CBC W Auto Different ial panel - Blood Arjun Bahena APRN STEEL [employer]TER Work Phone: Start: 09-29-2020 GLOMERULAR FILTRATION RATE Arjun Bahena APRN STEEL FITTER Work Phone: Start: 09-28-2020 Basic metabolic pane l calcium total Arjun Bahena APRN STEEL FITTER Work Phone: Start: 09-28-2020 CBC W Auto Different ial panel - Blood Arjun Bahena APRN STEEL [employer]TER Work Phone: Start: 09-28-2020 GLOMERULAR FILTRATION RATE Arjun Bahena APRN STEEL [employer]TER Work Phone: Start: 09-27-2020 Basic metabolic pane l calcium total Arjun Bahena APRN STE[employer]TER Work Phone: Start: 09-27-2020 CBC W Auto Different ial panel - Blood Arjun Bahena APRN STEEL FITTER Work Phone: Start: 09-27-2020 GLOMERULAR FILTRATION RATE Arjun Bahena APRN STEEL FITTER Work Phone: Start: 09-26-2020 Drug tst prsmv [...] pane l calcium total Arjun Bahena APRN STE[employer]TER Work Phone: Start: 09-26-2020 CBC W Auto Different ial panel - Blood Arjun Bahena APRN STEEL [employer]TER Work Phone: Start: 09-26-2020 GLOMERULAR FILTRATION RATE Arjun Bahena APRN STEEL FITTER Work Phone: Start: 09-25-2020 Mri brain brain stem w/o contrast material Samreen Jacobson MD Work Phone: Start: 09-25-2020 Radiologic exam ches t single view Ayaz Lund MD Work Phone: Start: 09-25-2020 Assay of ammonia Ayaz puri MD Work Phone: Start: 09-25-2020 Basic metabolic pane l calcium total Arjun Bahena APRN STE[employer]TER Work Phone: Start: 09-25-2020 CBC W Auto Different ial panel - Blood Arjun Bahena APRN STEEL FITTER Work Phone: Start: 09-25-2020 GLOMERULAR FILTRATION RATE Arjun Bahena APRN STEEL [employer]TER Work Phone: Start: 09-24-2020 Basic metabolic pane l calcium total Arjun Bahena APRN STE[employer]TER Work Phone: Start: 09-24-2020 CBC W Auto Different ial panel - Blood Arjun Bahena APRN STE[employer]TER Work Phone: Start: 09-24-2020 GLOMERULAR FILTRATION RATE Arjun Bahena APRN STEEL [employer]TER Work Phone: Start: 09-23-2020 Basic metabolic pane l calcium total Arjun Bahena APRN STE[employer]TER Work Phone: Start: 09-23-2020 CBC W Auto Different ial panel - Blood Arjun Bahena APRN STE[employer]TER Work Phone: Start: 09-23-2020 GLOMERULAR FILTRATION RATE Arjun Bahena APRN STEEL [employer]TER Work Phone: Start: 09-22-2020 Drug screen quantita tive alcohols Samreen Jacobson MD Work Phone: Start: 09-22-2020 Us abdominal real ti me w/image limited Samreen Jacobson MD Work Phone: Start: 09-22-2020 Basic metabolic pane l calcium total Arjun Bahena APRN STE[employer] Work Phone: Start: 09-22-2020 GLOMERULAR FILTRATION RATE Arjun Bahena APRN STE[employer]TER Work Phone: Start: 09-22-2020 CBC W Auto Different ial panel - Blood Arjun Bahena APRN STEEL [employer]TER Work Phone: Start: 09-21-2020 CBC W Auto Different ial panel - Blood Arjun Bahena APRN STE[employer]TER Work Phone: Start: 09-21-2020 Comprehensive metabo lic panel Nina Peace MD Work Phone: Start: 09-21-2020 GLOMERULAR FILTRATION RATE Arjun Bahena APRN STEEL [employer]TER Work Phone: Start: 09-20-2020 Drug tst prsmv instr mnt chem analyzers pr date Arjun Bahena APRN STE[employer]TER Work Phone: Start: 09-20-2020 Assay of ammonia Ata sandoval Carolyn TECHNICAL SME Work Phone: Start: 09-20-2020 Basic metabolic pane l calcium total Arjun Bahena APRN STE[employer]TER Work Phone: Start: 09-20-2020 CBC W Auto Different ial panel - Blood Arjun Bahena APRN STE[employer]TER Work Phone: Start: 09-20-2020 GLOMERULAR FILTRATION RATE Arjun Bahena APRN STEEL FITTER Work Phone: Start: 09-20-2020 Assay of lactate Ata Bahena APRN STEEL [employer]TER Work Phone: Start: 09-19-2020 Ct head/brain w/o [...] Work Phone: Start: 04-29-2020 Standard ECG Anahy mathew Work Phone: Start: 04-27-2020 Standard ECG Arjun dawson Work Phone: Start: 04-26-2020 Drug tst prsmv [...] Phone: Start: 11-14-2019 GLOMERULAR FILTRATION RATE Jocelyn Olivo Work Phone: Start: 11-14-2019 CBC WITH DIFFERENTIAL [...] Phone: Start: 06-22-2019 CBC WITH DIFFERENTIAL K quynh Herrera Work Phone: Start: 06-22-2019 Comprehensive metabo lic panel Hayden Herrera Work Phone: Start: 06-22-2019 GLOMERULAR FILTRATION RATE Hayden Herrera Work Phone: Start: 06-22-2019 Lipid panel Hayden lisaer Work Phone: Start: 06-22-2019 Lipid 1996 panel - S alex or Plasma Ольга Alcides Start: 05-24-2019 Radiologic exam ches t single view José Miguel Zerkle Work Phone: Start: 05-24-2019 Assay of troponin quantitative José Miguel Zerkle Work Phone: Start: 05-24-2019 Basic metabolic pane l calcium total José Miguel Zerkle Work Phone: Start: 05-24-2019 CBC WITH DIFFERENTIAL S amuel Zerkle Work Phone: Start: 05-24-2019 GLOMERULAR FILTRATION RATE José Miguel Zerkle Work Phone: Start: 05-24-2019 Standard ECG José Miguel Zer kle Work Phone: Start: 05-16-2019 Basic metabolic pane l calcium total Maxine Alonso Work Phone: Start: 05-16-2019 Blood count complete automated Maxine Alonso Work Phone: Start: 05-16-2019 GLOMERULAR FILTRATION RATE Chante Jackson Work Phone: Start: 05-16-2019 Thromboplastin time partial plasma/whole blood Chante Jackson Work Phone: Start: 05-15-2019 CARDIAC CATHETERIZAT ION - LEFT HEART Unspecified Provider Start: 05-15-2019 PROCEDURES TECH - END OF CA SE STAFF DOCUMENTATION Unspecified Provider Start: 05-15-2019 Percutaneous coronar y intervention Unspecified Provider Start: 05-15-2019 Echo transthorc r-t 2d w/wo m-mode rec f-up/lmtd Ольга Mcgrath Work Phone: Start: 05-15-2019 Assay of magnesium Kelsey monisha Chawla Work Phone: Start: 05-15-2019 Lipid panel Tremayne martinez Work Phone: Start: 05-15-2019 Thromboplastin time partial plasma/whole blood Chante Jackson Work Phone: Start: 05-15-2019 Blood count platelet automated Chante Jackson Work Phone: Start: 05-15-2019 HEMOGLOBIN AND HEMAT OCRIT, BLOOD Chante Jackson Work Phone: Start: 05-15-2019 Thromboplastin time partial plasma/whole blood Chante Jackson Work Phone: Start: 05-15-2019 Lipid 1996 panel - S alex or Plasma José Miguel Miranda Start: 05-14-2019 Standard ECG Samreen L iber Work Phone: Start: 05-14-2019 Assay of folic acid serum Samreen Liber Work Phone: Start: 05-14-2019 Assay of troponin quantitative Tremayne Dubon Work Phone: Start: 05-14-2019 Blood count platelet automated Chante Jackson Work Phone: Start: 05-14-2019 Cyanocobalamin vitam in b-12 Samreen Jacobson Work Phone: Start: 05-14-2019 HEMOGLOBIN AND HEMAT OCRIT, BLOOD Chante Jackson Work Phone: Start: 05-14-2019 Prothrombin time Victoriano Jackson Work Phone: Start: 05-14-2019 Thromboplastin time partial plasma/whole blood Chante Jackson Work Phone: Start: 05-14-2019 Ct angiography chest w/contrast/noncontrast Chante Jackson Work Phone: Start: 05-14-2019 Assay of magnesium Vlad hunter Dubon Work Phone: Start: 05-14-2019 Assay of troponin quantitative Tremayne Wellersurjitgonzález Work Phone: Start: 05-14-2019 Radiologic exam ches [...] Adults (1 - 1-dose 75+ series) [facility] [employer] Start: 08-12-2029 Diphtheria + pertussis + tetanus vaccine (product) [facility] Start: 08-12-2029 Tetanus, diphtheria and acellular pertussis vaccination TDAP/TD ADULT [facility] Start: 12-29-2025 Fasting lipid profile [facility] Start: 01-28-2025 Influenza vaccination [facility] Start: 01-24-2025 End: 01-24-2026 NM Heart Perfusion W stress and W radionuclide IV Nuclear Stress Test Cardiac Nuclear Medicine Routine Agatston CAC score, >400 Abnormal electrocardiogram (ECG) (EKG) Expected: 01/24/2025 (Approximate), Expires: 01/24/2026 [facility] Work Phone: Comment on above: Expected: 01/24/2025 (Approximate), Expi res: 01/24/2026 Start: 01-24-2025 End: 01-24-2026 Heart Transthoracic Transthoracic echo (TTE) complete Echocardiography Routine Agatston CAC score, >400 Abnormal electrocardiogram (ECG) (EKG) Expected: 01/24/2025, Expires: 01/24/2026 [facility] Service Area Work Phone: Comment on above: Expected: 01/24/2025, Expires: Start: 01-21-2025 [facility] Start: 10-02-2024 End: 10-02-2024 Patient encounter procedure 10/02/2024 11:00 AM EDT Office Visit [facility] [address] [place] [address] Joyce Hennessy MD [address] [place] [address] [facility] [place] Start: 07-17-2024 End: 07-17-2024 Patient encounter procedure 07/17/2024 1:30 PM EST Office Visit [facility] [place] [address] [place] [address] Joyce Hennessy MD [address] [place] [address] [facility] [place] Start: 06-22-2024 Fasting lipid profile LIPID SCREENING [facility] Start: 05-30-2024 Medicare Advantage Annual Wellness Visit Medicare [facility] Annual Wellness Visit [facility] Start: 05-15-2024 Fasting lipid profile LIPID SCREENING [facility] Start: 01-29-2024 COVID-19 Vaccine ( season) COVID-19 Vaccine ( season) [facility] Start: 01-29-2024 Influenza vaccination Influenza Vaccine (#1) [facility] Start: 2023 Prostate specific antigen measurement PSA Prostate Cancer Screening [facility] Start: 2023 Zoster Vaccines (1 of 2) Zoster Vaccines (1 of 2) [facility] Start: 05-27-2022 Depression screening using PHQ-9 (Patient Health Questionnaire 9) score [facility] Start: 08-25-2021 End: 08-25-2021 ambulatory [facility] Start: 05-15-2021 Depression screening using PHQ-9 (Patient Health Questionnaire 9) score DEPRESSION SCREENING [facility] Start: 01-28-2021 Influenza vaccination given [facility] Start: 10-24-2020 Adult depression screening assessment DEPRESSION SCREENING [facility] Start: 10-14-2020 End: 10-14-2020 Patient encounter procedure 10/14/2020 Office Visit Family Medicine Hayden Herrera, [employer] [address] [place] [address] [phone] [facility] Start: 10-09-2020 End: 10-09-2020 Patient encounter procedure 10/09/2020 Office Visit Neurology Bethany Garcia MD [address] [place] [address] [phone] [facility] Start: 10-06-2020 End: 10-06-2020 Patient encounter procedure 10/06/2020 Office Visit Cardiology Alfred Prajapati MD [address] [place] [address] [phone] [facility] Start: 05-06-2020 End: 05-06-2020 Telemedicine 05/06/2020 Telemedicine Family Medicine Joseph Meyers APRN [employer] [address] [place] [address] [phone] [facility] Start: 04-22-2020 End: 04-22-2020 Office Visit 04/22/2020 Office Visit [facility] Emeterio [facility] Start: 03-29-2020 Adult depression screening assessment [facility] Start: 01-29-2020 Influenza vaccination given INFLUENZA VACCINE (#1) [facility] Start: 01-25-2020 End: 01-25-2020 Office Visit 01/25/2020 Office Visit Family Hayden Herrera APRN STE[employer] [address] [place] [address] [facility] Start: 09-27-2019 End: 09-27-2019 Office Visit 09/27/2019 Office Visit Family Hayden Herrera APRN [employer] [address] [place] [address] [facility] Start: 07-19-2019 End: 07-19-2019 Office Visit 07/19/2019 Office Visit Family Hayden Herrera APRN [employer] [address] [place] [address] [phone] [facility] Start: 06-07-2019 End: 06-07-2019 Office Visit 06/07/2019 Office Visit Family Hayden Herrera APRN [employer] [address] [place] [address] [facility] Start: 06-04-2019 End: 06-04-2019 Office Visit 06/04/2019 Office Visit Cardiology Ольга Mcgrath MD [address] [address] [phone] [facility] Start: 2018 Screening for malignant neoplasm of colon [facility] Start: 1995 DTaP/Tdap/Td Vaccines (1 - Tdap) DTaP/Tdap/Td Vaccines (1 - Tdap) [facility] Start: 1994 Tetanus, diphtheria and acellular pertussis vaccination TDAP/TD ADULT [facility] Start: 1992 DTaP/Tdap/Td Vaccines (1 - Tdap) DTaP/Tdap/Td Vaccines (1 - Tdap) [facility] Start: 1992 Hepatitis B Vaccines (1 of 3 - 19+ 3-dose series) Hepatitis B Vaccines (1 of 3 - 19+ 3-dose series) [facility] Start: 1992 Pneumococcal vaccination Pneumococcal Vaccine (1 of 2 - PCV) [facility] Start: 1992 Pneumococcal Vaccine: 50+ Years (1 of 2 - PCV) Pneumococcal Vaccine: 50+ Years (1 of 2 - PCV) [facility] Start: 1991 ANNUAL WELLNESS VISIT ANNUAL WELLNESS VISIT [facility] Start: 1991 Diabetes mellitus screening Diabetes Screening [facility] Start: 1991 Hepatitis C screening Hepatitis C Screening [facility] Start: 1991 WELLNESS ANNUAL VISIT WELLNESS ANNUAL VISIT [facility] Start: 1991 [facility] Start: 1985 Depression Screening Depression Screening [facility] Start: 1978 COVID-19 Vaccine (#1) COVID-19 Vaccine (#1) [facility] Start: 1978 [facility] Start: 1974 MMR Vaccines (1 of 1 - Standard series) MMR Vaccines (1 of 1 - Standard series) [facility] Start: 1975 Examination of skin Derm Melanoma Skin Check [facility] Start: 1975 Annual wellness visit Welcome to Medicare Visit [facility] Start: 1973 HIV screening HIV Screening [facility] Start: 1973 Lipid panel Lipid Panel [facility] Start: 1975 Screening for malignant neoplasm of colon [facility] aPTT Coag (Bld) [Time] aPTT Lab Routine Daily 0500 until discontinued starting 05/15/2019, 2 completed [facility] Comment on above: Daily 0500 until discontinued starting 1 07/16/2018, 2 completed Basic metabolic 2000 panel - Serum or Plasma Basic metabolic panel Lab Routine Daily 0500 until discontinued starting 02/18/2021, 2 completed [email or web address] Work Phone: Comment on above: Daily 0500 until discontinued starting 0 02/18/2021, 2 completed Basic metabolic pane l aka Chem 8 Basic metabolic panel aka Chem 8 Lab Routine Daily 0500 until discontinued starting 09/20/2020, 10 completed [facility] Comment on above: Daily 0500 until discontinued starting 0 09/20/2020, 10 completed Blood culture x2 [employer] CBC panel - Blood by Automated count CBC without Differential Lab Routine Daily 0500 until discontinued starting 09/20/2020, 11 completed [facility] Comment on above: Daily 0500 until discontinued starting 0 09/20/2020, 11 completed Comprehensive metabo lic 2000 panel - Serum or Plasma Comprehensive metabolic panel Lab Routine Daily 0500 until discontinued starting 02/20/2021, 3 completed [facility] Comment on above: Daily 0500 until discontinued starting 0 02/20/2021, 3 completed COVID-19 (2019 NOVEL CORONAVIRUS) COVID-19 (2019 NOVEL CORONAVIRUS) Microbiology Routine Emesis 11/20/2019 4:[address] [facility] [address] Chest WO contrast [facility] End: 09-21-2020 EEG awake or drowsy routine EEG awake or drowsy routine Neurology Routine One Time for 1 Occurrences starting 09/21/2020 until 09/21/2020 [employer] Comment on above: One Time for 1 Occurrences starting 08/29 until 09/21/2020 End: 09-20-2020 Glucose [Mass/volume] in Serum or Plasma POCT glucose Point of Care Testing STAT One Time for 1 Occurrences starting 09/20/2020 until 09/20/2020 [facility] Comment on above: One Time for 1 Occurrences starting 08/29 until 09/20/2020 End: 09-22-2020 Glucose [Mass/volume] in Serum or Plasma POCT glucose Point of Care Testing STAT One Time for 1 Occurrences starting 09/22/2020 until 09/22/2020 [employer] Comment on above: One Time for 1 Occurrences starting 08/29 until 09/22/2020 Glucose [Mass/volume ] in Serum or Plasma POCT glucose Lab MY[facility] ONE TIME for 1 Occurrences starting 02/16/2021 [email or web address] Work Phone: Comment on above: ONE TIME for 1 Occurrences starting 01/29 Hemoglobin and hematocrit every other day starting day 3 while on Heparin; discontinue when heparin discontinued Hemoglobin and hematocrit every other day starting day 3 while on Heparin; discontinue when heparin discontinued Lab Routine Every Other Day until discontinued starting 05/17/2019 [employer] Comment on above: Every Other Day until discontinued start ing 05/17/2019 End: 11-19-2020 Hepatitis B core antibody, total Hepatitis B core antibody, total Lab Routine One Time for 1 Occurrences starting 11/19/2020 until 11/19/2020 [facility] Comment on above: One Time for 1 Occurrences starting 10/29 until 11/19/2020 Hepatitis B core antibody, total Hepatitis B core antibody, total Lab Routine 11/19/2020 6:42 PM EDT [facility] Inpatient consult to Neurology [facility] End: 10-01-2020 Magnesium [Mass/volume] in Serum or Plasma Magnesium Level Lab Routine Tomorrow AM for 1 Occurrences starting 10/01/2020 until 10/01/2020 [facility] Comment on above: Tomorrow AM for 1 Occurrences starting 0 10/01/2020 until 10/01/2020 Magnesium [Mass/volu me] in Serum or Plasma Magnesium Lab Routine Daily 0500 until discontinued starting 02/20/2021, 3 completed [email or web address] Work Phone: Comment on above: Daily 0500 until discontinued starting 0 02/20/2021, 3 completed End: 04-27-2020 Magnesium, RBC Magnesium, RBC Lab Routine One Time for 1 Occurrences starting 04/27/2020 until 04/27/2020 [facility] Comment on above: One Time for 1 Occurrences starting 03/31 until 04/27/2020 Magnesium, RBC Magnesium, RBC L ab Routine 04/27/2020 8:59 AM EST [facility] Nasotracheal suctioning Nasotrac heal suctioning Respiratory Care Routine As Needed until discontinued starting 09/27/2020 [employer] Comment on above: As Needed until discontinued starting End: 12-28-2020 Nuclear Stress Test - Pharmacological Nuclear Stress Test - Pharmacological Cardiac Services Obs [facility] One time imaging One time imaging for 1 Occurrences starting 12/28/2020 until 12/28/2020 [facility] [employer] [facility] Comment on above: One time imaging [...] for 1 Occurrences starting 05/14/2019 until 05/14/2019 [facility] Comment on above: One Time for 1 Occurrences starting 04/29 until 05/14/2019 Oxygen Therapy RT ma y modify oxygen administration per policy: Yes and Titrate to maintain sats > 92% Oxygen Therapy RT may modify oxygen administration per policy: Yes and Titrate to maintain sats > 92% Respiratory Care Routine Continuous until discontinued starting 02/16/2021 [facility] Comment on above: Continuous until discontinued starting 0 02/16/2021 Patient Education ED COPD Flare [facility] Work Phone: Platelet Count Every other day starting day 3 while on Heparin; discontinue when heparin discontinued Platelet Count Every other day starting day 3 while on Heparin; discontinue when heparin discontinued Lab Routine Every Other Day until discontinued starting 05/17/2019 [facility] Comment on above: Every Other Day until discontinued start ing 05/17/2019 End: 04-26-2020 POCT glucose POCT glucose Point of Care Testing STAT One Time for 1 Occurrences starting 04/26/2020 until 04/26/2020 [facility] Comment on above: One Time for 1 Occurrences starting 03/31 until 04/26/2020 End: 05-17-2019 Potassium [Moles/Vol] Potassium Level Lab Routine Tomorrow AM for 1 Occurrences starting 05/17/2019 until 05/17/2019 [facility] Comment on above: Tomorrow AM for 1 Occurrences starting 1 07/18/2018 until 05/17/2019 End: 02-23-2021 Potassium [Moles/volume] in Serum or Plasma Potassium Level Lab Routine Tomorrow AM for 1 Occurrences starting 02/23/2021 until 02/23/2021 [facility] [employer] [facility] Comment on above: Tomorrow AM for 1 Occurrences starting 0 02/23/2021 until 02/23/2021 End: 05-16-2019 Pulse Ox, Continuous Pulse Ox, Continuous Respiratory Care Routine Continuous until discontinued starting 05/15/2019 [facility] Comment on above: Continuous until discontinued starting 1 07/16/2018 Pulse oximetry, continuous Pulse oximetry, continuous Respiratory Care Routine Continuous until discontinued starting 09/20/2020 [facility] Comment on above: Continuous until discontinued starting 0 09/20/2020 Pulse oximetry, continuous Pulse oximetry, continuous Respiratory Care Routine Continuous until discontinued starting 02/16/2021 [facility] [employer] Work Phone: Comment on above: Continuous until discontinued starting 0 02/16/2021 End: 03-24-2022 Renal function panel Renal function panel Lab Routine Alcohol abuse 1 Occurrences starting 02/22/2021 until 03/24/2022 [facility] Comment on above: 1 Occurrences starting 02/22/2021 until 03/24/2022 Standard ECG [facility] Comment on above: As Needed until discontinued starting As Needed until disc ontinued starting 12/28/2020 End: 09-29-2020 Standard ECG EKG 12 lead ECG STAT One Time for 1 Occurrences starting 09/29/2020 until 09/29/2020 [employer] [facility] Comment on above: One Time for 1 Occurrences starting 07/2020 until 09/29/2020 Tissue exam [employer] Work Phone: Comment on above: Release Upon Ordering for 1 Occurrences starting 06/20/2024, 1 completed End: 11-14-2019 Toxicology screen, urine Toxicology screen, urine Lab [facility] One Time for 1 Occurrences starting 11/14/2019 until 11/14/2019 [facility] Comment on above: One Time for 1 Occurrences starting 10/28 until 11/14/2019 End: 05-24-2019 Troponin I.cardiac [Mass/Vol] Troponin I Lab Timed Now Then Every 3hr for 2 Occurrences starting 05/24/2019 until 05/24/2019 [facility] Comment on above: Now Then Every 3hr for 2 Occurrences sta rting 05/24/2019 until 05/24/2019 End: 08-14-2019 Troponin I.cardiac [Mass/Vol] Troponin I Lab Timed Now Then Every 3hr for 2 Occurrences starting 08/14/2019 until 08/14/2019 [facility] Comment on above: Now Then Every 3hr for 2 Occurrences sta rting 08/14/2019 until 08/14/2019 End: 11-14-2019 Troponin I.cardiac [Mass/Vol] Troponin I Lab Timed Now Then Every 3hr for 2 Occurrences starting 11/14/2019 until 11/14/2019, 1 completed [facility] Comment on above: Now Then Every 3hr for 2 Occurrences sta rting 11/14/2019 until 11/14/2019, 1 completed XR Chest PA and late ral upright XR Chest PA and lat Imaging [facility] 08/14/2019 12:19 AM EDT [facility] XR Knee - right 1 or 2 Views XR knee 1 or 2 views right Imaging Routine Giant cell tumor of bone 10/23/2024 1:05 PM EDT [facility] Work Phone: Immunizations Immunization Date Immunization Notes Care Provider Melody virk 08-14-2019 diphtheria, tetanus toxoids and acellular pertussis vaccine, unspecified formulation [facility] 08-13-2019 tetanus toxoid, redu phong diphtheria toxoid, and acellular pertussis vaccine, adsorbed [facility] 03-29-2019 influenza, seasonal, injectable José Miguel Henrie [facility] 03-29-2019 influenza virus vacc ine, unspecified formulation [facility] Payers Date Payer Category Payer Medicare [id number] 2024 Medicaid [facility] [id number] 2024 Dual Eligibility Medicare/Medicaid Organization [id number] 2024 Medicare [facility] [id number] 2024 Medicare [id number] 2024 Medicare [id number] 2024 Self-pay 2019 Medicaid [id number] 2018 Medicaid [id number] 2015 Medicaid [id number] 2015 Medicaid [id number] .[id number] 1973 Unknown [id number] 2.16.840.1.796495.3.579.2 .297 1973 Unknown [id number] 2.16.840.1.922942.3.579.2 .297 1973 Unknown [id number] 2.16.840.1.405787.3.579.2 .297 1973 Unknown [id number] 2..840.1.572882.3.579.2 .297 1973 Unknown [id number] 2.16.840.1.035036.3.579.2 .297 1973 Unknown [id number] 2.840.1.728031.3.579.2 .297 1973 Unknown [id number] 2.840.1.935557.3.579.2 .297 1973 Unknown [id number] .840.1.213357.3.579.2 .297 1973 Unknown [id number] .840.1.508270.3.579.2 .297 1973 Unknown [id number] 840.1.787634.3.579.2 .297 1973 Unknown [id number] .840.1.904991.3.579.2 .297 1973 Unknown [id number] .840.1.976946.3.579.2 .297 1973 Unknown [id number] .840.1.060156.3.579.2 .297 1973 Unknown [id number] 840.1.447573.3.579.2 .1244 Unknown [id number] .840.1.635105.3.579.2 .462 Unknown [id number] 840.1.273445.3.579.2 .462 Unknown [id number] .840.1.320979.3.579.2 .462 Unknown [id number] 2.840.1.121190.3.579.2 .462 Unknown [id number] 2.840.1.705825.3.579.2 .462 Unknown [id number] 840.1.654696.3.579.2 .462 Unknown [id number] 2.16.840.1.355554.3.579.2 .462 Unknown [id number] 2.16.840.1.194909.3.579.2 .462 Unknown [id number] 2.16.840.1.596305.3.579.2 .462 Social History Date Type Detail Facility Start: 05-14-2019 End: 01-24-2025 Tobacco smoking status NHIS Current every day smoker [facility] History of tobacco use Cigarette Smoker G [facility] History of tobacco use Cigar Smoker [facility] Start: 05-14-2019 End: 01-24-2025 Cigarettes smoked current (pack per day) - Reported [facility] Start: 05-14-2019 End: 10-23-2024 Alcohol intake Current drinker of alcohol (finding) [facility] Start: 04-26-2016 Alcohol Comment social [facility] Start: 1975 Sex Assigned At Not on file [facility] Start: 11-14-2019 End: 01-24-2025 Tobacco use and exposure Never used [facility] Exposure to SARS-CoV -2 (event) Not sure [facility] Start: 04-26-2020 End: 05-01-2020 Alcohol intake Ex-drinker (finding) [facility] Start: 09-19-2020 Alcohol Comment 12 pack on Fridays G [facility] Start: 05-27-2021 History SDOH Alcohol Frequency 3 [facility] Start: 05-27-2021 History SDOH Alcohol Std Drinks 98 [facility] Start: 05-27-2021 History SDOH Alcohol Binge 4 [facility] Start: 05-27-2021 History SDOH Alcohol Comment 6 [facility] Start: 05-27-2021 History SDOH Social Connections Membership 2 [facility] Start: 05-27-2021 History SDOH Physica l Activity DPW 0 [facility] Start: 05-27-2021 History SDOH Stress 1 [facility] Start: 05-27-2021 History SDOH Financial 5 [facility] Exposure to SARS-CoV -2 (event) Unable to assess [facility] Start: 06-19-2024 End: 01-24-2025 Humiliation, Afraid, Rape, and Kick questionnaire [HARK] [facility] [employer] Within the last year , have you been afraid of your partner or ex-partner? No [facility] How often to you hav e a drink containing alcohol? Never [facility] Start: 01-14-[address] inks containing alcohol do you have on a typical day? Patient does not drink [facility] Start: 06-19-2024 Alcohol Comment [facility]th [facility] Start: 03-23-2024 Sex Male (finding) Romana He alth (I/We) worried wheth er (my/our) food would run out before (I/we) got money to buy more. Never true [facility] Start: 1975 Sex Assigned At Male [facility] Start: 01-24-2025 Alcoholic beverage intake Life time non-drinker (finding) [facility] Work Phone: Medical Equipment Procedure Code Equipment Code Equipment Origin al Text Equipment Identifier Dates Cement Bone [place] cos R 40g - [id number] Start: 06-20-2024 Cement Bone [place] cos R 40g - [id number] Start: 06-20-2024 3.5mm Va-Lcp Proximal Tibia Plate, [place] 117mm Right [id number] Start: 06-20-2024 Screw Crtx 3.5x2 6mm S-T - [id number] Start: 06-20-2024 Screw Crtx 3.5x2 8mm S-T - [id number] Start: 06-20-2024 Screw Lck Va 3.5x65mm S-T T15 - [id number] Start: 06-20-2024 Screw Lck Va 3.5x70mm S-T T15 - [id number] Start: 06-20-2024 Screw Lck Va 3.5x75mm S-T T15 - [id number] Start: 06-20-2024 Screw Lck Va 3.5x80mm S-T T15 - [id number] Start: 06-20-2024 Screw Crtx 3.5x2 4mm S-T - [id number] Start: 06-20-2024 Clinical Notes 09-19-2020 to 01-24-2025 Lilo Tai, CHRISTINA-LAMBERTO, DNP - 01/24/2025 2:30 PM EDT Note Date & Type Note Facility 01-24-2025 History of Present illness Narrative Images from the original note were not included. 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 Patient recently had a CT coronary calcium test with score of 4,493 disease noted in the left main, LAD, Lcx, and RCA with majority in the RCA. He denies any chest pain/pressure/discomfort, shortness of breath, palpitations, dizziness, syncope or lower leg swelling. He reports he has a heart murmur. He is currently in a wheelchair but reports he able to walk with a walker. He is currently under PT services secondary to previous surgery to his right proximal tibia. Patient has a PMH of CAD and MS, however, patient denies ever having a heart attack or coronary artery disease. He currently resides in a chcf in [place] and is a . He smokes 5 cigarettes a day and has prior hx of alcohol abuse prior to living in the chcf which he has been there for approximately 3 years. Past Medical, Surgical, and Family History reviewed and updated in chart. Reviewed all medications by prescribing practitioner or clinical pharmacist (such as prescriptions, OTCs, herbal therapies and supplements) and documented in the medical record. Past Medical History Medical History[1] Social History Social History[2] Family History Family History[3] Allergies: RX Allergies[4] Outpatient Medications: Current Outpatient Medications Medication Instructions acetaminophen (TYLENOL) 650 mg, Every 6 hours PRN albuterol 90 mcg/actuation inhaler 2 puffs, Every 4 hours PRN Anoro Ellipta 62.5-25 mcg/actuation blister with inhaler device 1 puff, Daily aspirin 81 mg, Daily atorvastatin (LIPITOR) 80 mg, Daily RT carboxymethylcellulose (Refresh Plus) 0.5 % ophthalmic solution 1 drop, 2 times daily PRN cholecalciferol (VITAMIN D-3) 50,000 Units, Weekly clopidogrel (PLAVIX) 75 mg, Daily RT divalproex (DEPAKOTE) 250 mg, 3 times daily doxycycline (VIBRAMYCIN) 100 mg, 2 times daily fenofibrate (TRICOR) 145 mg, Daily RT folic acid (FOLVITE) 1 mg, Daily RT haloperidol (HALDOL) 0.5 mg, 2 times daily levETIRAcetam (KEPPRA) 750 mg, 2 times daily magnesium hydroxide (Milk of Magnesia) 400 mg/5 mL suspension 30 mL, Nightly naproxen (NAPROSYN) 500 mg, 2 times daily (morning and late afternoon) nicotine (Nicotrol) 10 mg inhaler 1 puff, Every 2 hour PRN nitroglycerin (NITROSTAT) 0.4 mg, Every 5 min PRN predniSONE (DELTASONE) 40 mg, Daily traZODone (DESYREL) 100 mg, Nightly Labs: CMP:No results for input(s): NA, K, CL, CO2, ANIONGAP, BUN, CREATININE, EGFR, MG in the last 78884 hours.No results for input(s): ALBUMIN, ALKPHOS, ALT, AST, BILITOT, LIPASE in the last 28701 hours. No lab exists for component: CA CBC:No results for input(s): WBC, HGB, HCT, PLT, MCV in the last 28679 hours. COAG: No results for input(s): PTT, INR, HAUF, DDIMERVTE, HAPTOGLOBIN, FIBRINOGEN in the last 70965 hours. ABO: No results for input(s): ABO in the last 97692 hours. HEME/ENDO:No results for input(s): FERRITIN, IRONSAT, TSH, HGBA1C in the last 59360 hours. CARDIAC: No results for input(s): LDH, CKMB, TROPHS, BNP in the last 94832 hours. No lab exists for component: CK, CKMBPNo results for input(s): CHOL, LDLF, HDL, TRIG in the last 96120 hours. MICRO: No results for input(s): ESR, CRP, PROCAL in the last 34977 hours. No results found for the last 90 days. Notable Studies: imaging personally reviewed EKG:No results found for this or any previous visit (from the past 4464 hours). Echocardiogram: No results found for this or any previous visit from the past 1825 days. Stress Testing: No results found for this or any previous visit from the past 1825 days. Cardiac Catheterization: No results found for this or any previous visit from the past 1825 days. No results found for this or any previous visit from the past 3650 days. REVIEW OF SYSTEMS A 10-point system review was completed and was negative except as noted in the HPI. VITALS Vitals: 01/24/25 1450 BP: 106/67 Pulse: 75 SpO2: 94% PHYSICAL EXAM General: awake, alert and oriented. No acute distress. HEENT: normocephalic, atraumatic; conjunctivae are clear without exudates or hemorrhage. Sclera is non-icteric. Eyelids are normal in appearance without swelling or lesions. Hearing intact. Nares are patent bilaterally. Moist mucous membranes. Cardiovascular: heart rate and rhythm are normal. No murmurs, gallops, or rubs are auscultated. S1 and S2 are heard and are of normal intensity. No JVD, no carotid bruits Respiratory: bilateral lung sounds clear to auscultations without rales, rhonchi, or wheezes. No accessory muscle use or stridor Musculoskeletal: ROM intact, no deformities Extremities: pulses palpable bilaterally; no swelling or erythema Neurological: no focal deficits; gait steady Psychiatric: appropriate mood and affect; good judgment and insight ASSESSMENT AND PLAN Assessment/Plan Diagnoses and all orders for this visit: [place]at[place] CAC score, >400 Coronary artery disease involving [place] coronary artery of [place] heart without angina pectoris Abnormal electrocardiogram (ECG) (EKG) -IOEKG showing NSR with nonspecific ST and T wave abnormalities -Patient currently asymptomatic but given his elevated CAC score, co-morbidities, and abnormal EKG I will proceed with an echo to rule out any underlying structural abnormalities and a nuclear stress test as patient cannot walk on a treadmill due to orthopedic limitation. Patient aware if stress test were to be abnormal a heart catheterization will be recommended and patient is agreeable -Will order labs for the chcf to obtain and fax results to me; CBC, CMP, and Lipid panel -Continue current medication regimen including ASA 81mg, plavix 75mg, and high-intensity statin RTC: after testing Thank you for allowing me to participate in the care of this patient. Please reach me out if you have any questions or if you need any clarifications regarding the patient's care. Lilo Tai DNP, CHRISTINA, CORPORATE TRAINER-C Division of Cardiovascular Medicine [facility] [1] History reviewed. No pertinent past medical history. [2] Social History Tobacco Use Smoking status: Every Day Types: Cigarettes Smokeless tobacco: Never Substance Use Topics Alcohol use: Never Drug use: Defer [3] No family history on file. [4] No Known Allergies documented in this encounter [facility] Work Phone: 01-21-2025 Discharge summary Note Date/Time January 21, 2025 12:22pm [facility] Medical Records Department [address] [place] [id number] Emergency Department Summary 01/21/25 MR#: [id number] Acct: [id number] Name: YONATHAN FERNANDEZ Rep #:[id number] : 1975 49 From: Eliseo Munson MD PCP: Dr. Jared Forde MD Status:REG ER Location: ED HPI History of Present Illness Chief Complaint: Chest Pain Detail of Chief Complaint: Left-sided intermittent pleuritic chest pain with productive cough Informant: patient Onset/Context/Timing Onset: Weeks (1 week ago) Context: Sudden Onset Timing: Intermittent Quality: Pain Location: Left lower anterior chest radiating to the abdomen Current Severity: Mild Maximum Severity: Moderate Worsened by: Coughing and breathing Relieved by: Nothing Associated Symptoms Associated Symptoms: Productive cough initially of clear sputum now green Narrative Narrative: Patient is a 49-year-old male. He has a history of a lung nodule right upper lobe that is followed by pulmonary. There is also history of hypercholesterolemia, schizoaffective disorder And anxiety. Review of Dr. Jones's note from February 09, 2024 indicates patient's had left upper quadrantand pain and left lower rib pain in the past. He denied history of COPD howeverreview of prior records again he has history of COPD, PVD, epilepsy, TIA/CVA as well as major depressive disorder with anxiety. 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 Patient presents because of pain that started approximately a week ago that is pleuritic with a cough that was initially clear now colored. He denies fever, chills night sweats. He denies history of PE or DVT. He denies leg pain, swelling discoloration. He denies symptoms of claudication. Patient denies orthopnea or PND. Patient denies exertional pain. There is no radiation of the pain to his jaw, neck shoulders or arms. States it radiates down to left lower quadrant. He has no urologic symptoms. He denies nausea, vomiting diarrhea or constipation. Prior similar symptoms: Yes Recent Illness/Hospitalization: No PFSH PFSH Medical History Ataxic gait PVD (peripheral vascular disease) COPD (chronic obstructive pulmonary disease) Epilepsy Schizoaffective disorder CVA (cerebral vascular accident) TIA (transient ischemic attack) Alcohol abuse Hyperlipidemia Major depression Anxiety HTN (hypertension) Encephalopathy Dementia associated with alcoholism Home Medications ?Medication ?Instructions ?Recorded ?Last Taken ?Type acetaminophen 325 mg tablet 650 mg PO Q6H PRN fever or pain 10/05/24 Unknown History (Tylenol) aspirin 81 mg tablet,delayed 81 mg PO QDAY 10/05/24 Un known History release (Adult Aspirin Regimen) atorvastatin 80 mg tablet 80 mg PO QDAY 10/05/24 Unkno wn History carboxymethylcellulose sodium 1 % 1 drp ophthalmic (ey e) BID 10/05/24 Unknown History eye drops (Artificial Tears (carboxymethylcellulose)) cholecalciferol (vitamin D3) 1,250 1,250 mcg PO MOTH 0 10/05/24 Unknown History mcg (50,000 unit) capsule divalproex 250 mg tablet,delayed 250 mg PO TID 5 Unknown History release fenofibrate nanocrystallized 145 145 mg PO QDAY Unknown History mg tablet folic acid 1 mg tablet 1 mg PO QDAY 10/05/24 Unknow n History levetiracetam 750 mg tablet 750 mg PO BID 10/05/24 Unk nown History lorazepam 1 mg tablet 1 mg PO BID 10/05/24 Unknown History lorazepam 1 mg tablet 1 mg PO Q6H PRN anxiety 02/21 Unknown History magnesium hydroxide 400 mg/5 mL 30 ml PO QDAY PRN cons tipation 10/05/24 Unknown History oral suspension (Milk of Magnesia) magnesium oxide 500 mg PO QDAY 10/05/24 Unkn own History melatonin 3 mg tablet 6 mg PO HS PRN sleep 5 Unknown History nicotine 10 mg inhalation cartridge 10 mg inhalation Q 2H PRN PRN 10/05/24 Unknown History SMOKING ALTERNATIVE trazodone 100 mg tablet 100 mg PO QHS 10/05/24 Unkno wn History haloperidol 0.5 mg tablet 0.5 mg PO BID 11/20/24 Unkno wn History ibuprofen 600 mg tablet 600 mg PO TID PRN fever or p ain 11/20/24 Unknown History albuterol sulfate 90 mcg/actuation 2 puff inhalation Q 4H PRN PRN 01/21/25 Unknown Rx aerosol inhaler (Ventolin HFA) Wheezing ##1 clopidogrel 75 mg tablet 75 mg PO DAILY 01/21/25 Unkn own History doxycycline monohydrate 100 mg 100 mg PO BID #10 CAPSU LES 01/21/25 Unknown Rx capsule naproxen 500 mg tablet 500 mg PO BID #14 tabs 01/21 Unknown Rx nitroglycerin 0.4 mg sublingual 0.4 mg sublingual Q5M PRN chest 01/21/25 Unknown History tablet pain prednisone 20 mg tablet 60 mg (3 x 20 mg) PO DAILY # 15 01/21/25 Unknown Rx TABLETS Allergy/AdvReac Type Severity Reaction Status Date / Time No Known Allergies Allergy Verified 11/20/24 13:27 Social History (Updated 01/21/25 @ 10:[address] Eliseo Munson MD) household members: none Smoking Status: Current every day smoker tobacco type: cigarettes ROS ROS ED Constitutional Constitutional ED: Denies chills, fever(s) or subjective Eyes Eyes: Denies blurry vision or change in vision ENT ENT ED: Reports other Details: He does endorse mild congestion. ; Denies ear pain, rhinorrhea or sore throat Cardiovascular Cardiovascular: Reports chest pain; Denies orthopnea, palpitations, paroxysmal nocturnal dyspnea or racing heartbeat Respiratory/Chest Respiratory/Chest: Reports cough, dyspnea, dyspnea on exertion and sputum; Denies orthopnea or paroxysmal nocturnal dyspnea Gastrointestinal Gastrointestinal: Reports abdominal pain; Denies melena, nausea or vomiting Genitourinary Genitourinary ED: Denies dysuria, hematuria or urinary frequency Musculoskeletal Musculoskeletal: Denies arthralgias or myalgias Integumentary Denies rash Neurologic Neurologic: Reports weakness; Denies headache(s) or paresthesias Psychiatric Psychiatric: Denies anxiety or depression Endocrine Endocrinology: Denies cold intolerance or heat intolerance Hematologic/Lymphatic Hematologic/Lymphatic: Reports systems reviewed and no addt'l complaints, exceptas documented EXAM Physical Exam Const Vital Signs: 01/21/25 08:53 01/21/25 08:54 01/21/25 08:54 Temperature 97.7 F L 97.6 F L Temperature Source Oral Oral Pulse Rate 67 80 80 Respiratory Rate 21 H 16 Respiratory Pattern Blood Pressure 115/72 115/70 118/80 Blood Pressure Mean 86 85 92 Pulse Ox 97 100 98 Oxygen Delivery Method Room Air Room Air 01/21/25 09:34 01/21/25 09:54 01/21/25 09:54 Temperature 97.8 F Temperature Source Oral Pulse Rate 61 80 80 Respiratory Rate 16 18 18 Respiratory Pattern Normal Blood Pressure 118/70 118/70 Blood Pressure Mean 86 86 Pulse Ox 98 98 Oxygen Delivery Method Room Air 01/21/25 10:00 01/21/25 11:00 Temperature 97.8 F 97.8 F Temperature Source Oral Oral Pulse Rate 96 69 Respiratory Rate 19 H 17 Respiratory Pattern Blood Pressure 118/72 131/86 H Blood Pressure Mean 87 101 Pulse Ox 96 96 Oxygen Delivery Method Room Air Room Air Positive well nourished and well developed Constitutional Narrative: Vital signs are unremarkable. General Appearance ED: well developed; Negative for pallor HEENT Reports moist mucous membranes HEENT Narrative: Head is atraumatic and normocephalic. Ears normal. Posterior pharynx is normal Eyes PERRL and EOMs intact bilaterally General Eye ED: Negative for pale conjunctiva or scleral icterus Neck no lymphadenopathy, supple and no JVD Chest Wall inspection of chest normal and palpation of chest normal Resp normal respiratory effort and No clear to auscultation bilaterally Auscultation: rales left base and rhonchi throughout Cardio regular rate, regular rhythm, S1 normal heart sound and no murmurs GI normal to inspection, nondistended, normoactive bowel sounds and non-distended; Negative for non-tender, hepatosplenomegaly or no masses Palpation: soft and tender LUQ; Negative for guarding, splenomegaly, mass or rebound tenderness present Back/Spine no CVA tenderness Extremity Extremity Narrative: Significant scar lateral right knee. This is the reason he is in a wheelchair. When asked why he was in a wheelchair he pulled up his pant leg to show me his scar. Neuro oriented x3 and CN's II-XII intact bilaterally Sensorium / Orientation: alert Psych Mood & Affect: anxious Skin no rashes or lesions noted and no wounds General Skin Exam: elasticity normal; Negative for jaundice or pallor MDM MDM MDM Narrative Medical decision making narrative: Patient's chest pain is not consistent with cardiac. His symptoms are not consistent with pulmonary embolus. Suspect he has a infection that is causing his pleuritic pain. Prior records were reviewed and summarized in the HPI portion of the EMR. Clinically patient does not have evidence of a DVT. When I went to reevaluate patient at [facility] he states his pain was worse. Since his renal panel is not back he was treated with Solu-Medrol which is a anti-inflammatory for his pleuritic pain and will help his COPD exacerbation. Lab Data Attestation: I reviewed the patient's lab results. Lab results narrative: CBC is unremarkable. Electrolyte panel reveals a CO2 of 20.5 and glucose of 129. Anion gap is normal. Liver enzymes are normal. Labs: Laboratory Results - last 24 hr 01/21/25 01/21/25 01/21/25 08:58 10:08 10:41 WBC 8.3 RBC 4.62 Hgb 14.7 Hct 43.8 MCV 94.8 H MCH 31.8 MCHC 33.6 RDW Std Deviation 48.6 H RDW Coeff of Naveed 13.9 Plt Count 288 MPV 11.6 Immature Gran % (Auto) 0.700 Neut % (Auto) 50.5 Lymph % (Auto) 32.3 [place] % (Auto) 10.6 H Eos % (Auto) 5.3 H Baso % (Auto) 0.6 Absolute Neuts (auto) 4.2 Absolute Lymphs (auto) 2.67 Nucleated RBC % 0 Sodium Cancelled Cancelled 139 Potassium Cancelled Cancelled 4.0 Chloride Cancelled Cancelled 104 Carbon Dioxide Cancelled Cancelled 20.5 L Anion Gap Cancelled Cancelled 15 BUN Cancelled Cancelled 16 Creatinine Cancelled Cancelled 0.89 Estim Creat Clear Calc Cancelled Cancelled 100.00 Est GFR (MDRD) Non-Af Cancelled Cancelled 104 BUN/Creatinine Ratio Cancelled Cancelled 18.1 Glucose Cancelled Cancelled 129 H Lactic Acid 1.8 Calcium Cancelled Cancelled 9.1 Total Bilirubin Cancelled Cancelled 0.28 AST Cancelled Cancelled 24 ALT Cancelled Cancelled 21 Alkaline Phosphatase Cancelled Cancelled 46 Total Protein Cancelled Cancelled 7.8 Albumin Cancelled Cancelled 4.3 Globulin Cancelled Cancelled 3.5 Albumin/Globulin Ratio Cancelled Cancelled 1.2 Radiography Chest X-Ray - ED: 2 View and Read by ED Physician (Patient with normal cardiac silhouette and size. Hilum appears normal. There is degenerative changes in the thoracic spine. Patient has some abnormal findings left upper lobe which may represent atelectasis, scarring or possible early infiltrate.) Diagnostic Testing: Clinical Impression(s) from Imaging Studies Chest X-Ray 01/21/25 09:12 IMPRESSION: Minimal increased markings in the lingular segment of the left upper lobe suggestive of atelectasis and/or early infiltrate. Follow-up recommended. Reading Location: [facility] Differential Diagnosis Chest pain/SOB: pulmonary embolism Reason(s) PE less likely: Positive for Well's<3, not tachycardic and not hypoxic, ACS ACS: Positive for EKG without ischemia and history not suggestive of ischemia pain, pneumothorax Reason(s) pneumothoraxless likely: Positive for bilateral breath sounds and CUTTING INSPECTOR withhout PTX, aortic dissection Reason(s) Aortic dissection less likely:: Positive for normal vascular exam, normal neurological exam, no significant risk factors for dissection, no widened mediastinum on CXR, pain not sudden onset, no ripping/tearing pain, no pain to back and blood pressure appropriate in ED and CHF Reason(s) CHF less likely: Positive for no significant peripheral edema, no orthopnea and no evidence of fluid overload on CXR Treatment and Re-Evaluation :: Patient was reassessed at 1215. His pain has improved he still has it. Still has some wheezing. In light of the fact that he is purulent sputum history of COPD and still wheezing will place on short course of doxycycline, burst of prednisone and NSAIDs since she has normal renal function. Discharge Plan Triage Chief Complaint: Chest Pain ED Provider: Eliseo Munson Dx/Rx/DC Orders Clinical Impression: Acute exacerbation of chronic obstructive pulmonary disease, Schizoaffective disorder, Lung nodule, Nicotine dependence, cigarettes, uncomplicated, Acute exacerbation of chronic bronchitis, Acute bronchospasm, Chest pain, pleuritic Instructions: ED COPD Flare Prescriptions: New prednisone 20 mg tablet 60 mg PO DAILY Qty: 15 0RF doxycycline monohydrate 100 mg capsule 100 mg PO BID Qty: 10 0RF albuterol sulfate [Ventolin HFA] 90 mcg/actuation HFA aerosol inhaler 2 puff inhalation Q4H PRN PRN (Reason: Wheezing) Qty: 1 0RF naproxen 500 mg tablet 500 mg PO BID Qty: 14 0RF No Action Artificial Tears (cmc) 1 % drops 1 drp ophthalmic (eye) BID aspirin [Adult Aspirin Regimen] 81 mg tablet,delayed release (DR/EC) 81 mg PO QDAY lorazepam 1 mg tablet 1 mg PO BID lorazepam 1 mg tablet 1 mg PO Q6H PRN (Reason: anxiety) atorvastatin 80 mg tablet 80 mg PO QDAY cholecalciferol (vitamin D3) 1,250 mcg (50,000 unit) capsule 1,250 mcg PO MOTH divalproex 250 mg tablet,delayed release (DR/EC) 250 mg PO TID fenofibrate nanocrystallized 145 mg tablet 145 mg PO QDAY folic acid 1 mg tablet 1 mg PO QDAY levetiracetam 750 mg tablet 750 mg PO BID magnesium oxide 500 mg magnesium tablet 500 mg PO QDAY melatonin 3 mg tablet 6 mg PO HS PRN (Reason: sleep) magnesium hydroxide [Milk of Magnesia] 400 mg/5 mL suspension 30 ml PO QDAY PRN (Reason: constipation) nicotine 10 mg cartridge 10 mg inhalation Q2H PRN PRN (Reason: SMOKING ALTERNATIVE) Rx Instructions: Do not exceed 8 cartridge per day trazodone 100 mg tablet 100 mg PO QHS acetaminophen [Tylenol] 325 mg tablet 650 mg PO Q6H PRN (Reason: fever or pain) haloperidol 0.5 mg tablet 0.5 mg PO BID ibuprofen 600 mg tablet 600 mg PO TID PRN (Reason: fever or pain) clopidogrel 75 mg tablet 75 mg PO DAILY nitroglycerin 0.4 mg tablet, sublingual 0.4 mg sublingual Q5M PRN (Reason: chest pain) Primary Care Provider: Jared Forde Referrals: Jared Forde MD [Primary Care Provider] - Print Language: Dominican Disposition Disposition: Home, Self Care What to do if you have Problems For any increased pain, shortness of breath, bleeding, nausea or vomiting, chestpain, or any unexpected problems, contact your Primary Care Provider. Call [facility] ([phone]) or report to the closest Emergency Room. Call 911 if necessary. 01/21/25 1222 <Electronically signed by Eliseo Munson MD> Cosigner Signature (if applicable): CC: Dr. Jared Forde MD ~ Signed [facility] Work Phone: [phone] Discharge summary [facility] Medical Records Department [address] [place] [address] Emergency Department Summary 01/21/25 MR#: [id number] Acct: [id number] Name: YONATHAN FERNANDEZ Rep #:[id number] : 1975 49 From: Eliseo Munson MD PCP: Dr. Jared Forde MD Status:REG ER Location: ED HPI History of Present Illness Chief Complaint: Chest Pain Detail of Chief Complaint: Left-sided intermittent pleuritic chest pain with productive cough Informant: patient Onset/Context/Timing Onset: Weeks (1 week ago) Context: Sudden Onset Timing: Intermittent Quality: Pain Location: Left lower anterior chest radiating to the abdomen Current Severity: Mild Maximum Severity: Moderate Worsened by: Coughing and breathing Relieved by: Nothing Associated Symptoms Associated Symptoms: Productive cough initially of clear sputum now green Narrative Narrative: Patient is a 49-year-old male. He has a history of a lung nodule right upper lobe that is followed by pulmonary. There is also history of hypercholesterolemia, schizoaffective disorder And anxiety. Review of Dr. Jones's note from February 09, 2024 indicates patient's had left upper quadrantand pain and left lower rib pain in the past. He denied history of COPD howeverreview of prior records again he has history of COPD, PVD, epilepsy, TIA/CVA as well as major depressive disorder with anxiety. 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 Patient presents because of pain that started approximately a week ago that is pleuritic with a cough that was initially clear now colored. He denies fever, chills night sweats. He denies history of PE or DVT. He denies leg pain, swelling discoloration. He denies symptoms of claudication. Patient denies orthopnea or PND. Patient denies exertional pain. There is no radiation of the pain to his jaw, neck shoulders or arms. States it radiates down to left lower quadrant. He has no urologic symptoms. He denies nausea, vomiting diarrhea or constipation. Prior similar symptoms: Yes Recent Illness/Hospitalization: No PFSH PFS Medical History Ataxic gait PVD (peripheral vascular disease) COPD (chronic obstructive pulmonary disease) Epilepsy Schizoaffective disorder CVA (cerebral vascular accident) TIA (transient ischemic attack) Alcohol abuse Hyperlipidemia Major depression Anxiety HTN (hypertension) Encephalopathy Dementia associated with alcoholism Home Medications ?Medication ?Instructions ?Recorded ?Last Taken ?Type acetaminophen 325 mg tablet 650 mg PO Q6H PRN fever or pain 10/05/24 Unknown History (Tylenol) aspirin 81 mg tablet,delayed 81 mg PO QDAY 10/05/24 Un known History release (Adult Aspirin Regimen) atorvastatin 80 mg tablet 80 mg PO QDAY 10/05/24 Unkno wn History carboxymethylcellulose sodium 1 % 1 drp ophthalmic (ey e) BID 10/05/24 Unknown History eye drops (Artificial Tears (carboxymethylcellulose)) cholecalciferol (vitamin D3) 1,250 1,250 mcg PO MOTH 0 10/05/24 Unknown History mcg (50,000 unit) capsule divalproex 250 mg tablet,delayed 250 mg PO TID 5 Unknown History release fenofibrate nanocrystallized 145 145 mg PO QDAY Unknown History mg tablet folic acid 1 mg tablet 1 mg PO QDAY 10/05/24 Unknow n History levetiracetam 750 mg tablet 750 mg PO BID 10/05/24 Unk nown History lorazepam 1 mg tablet 1 mg PO BID 10/05/24 Unknown History lorazepam 1 mg tablet 1 mg PO Q6H PRN anxiety 02/21 Unknown History magnesium hydroxide 400 mg/5 mL 30 ml PO QDAY PRN cons tipation 10/05/24 Unknown History oral suspension (Milk of Magnesia) magnesium oxide 500 mg PO QDAY 10/05/24 Unkn own History melatonin 3 mg tablet 6 mg PO HS PRN sleep 5 Unknown History nicotine 10 mg inhalation cartridge 10 mg inhalation Q 2H PRN PRN 10/05/24 Unknown History SMOKING ALTERNATIVE trazodone 100 mg tablet 100 mg PO QHS 10/05/24 Unkno wn History haloperidol 0.5 mg tablet 0.5 mg PO BID 11/20/24 Unkno wn History ibuprofen 600 mg tablet 600 mg PO TID PRN fever or p ain 11/20/24 Unknown History albuterol sulfate 90 mcg/actuation 2 puff inhalation Q 4H PRN PRN 01/21/25 Unknown Rx aerosol inhaler (Ventolin HFA) Wheezing ##1 clopidogrel 75 mg tablet 75 mg PO DAILY 01/21/25 Unkn own History doxycycline monohydrate 100 mg 100 mg PO BID #10 CAPSU LES 01/21/25 Unknown Rx capsule naproxen 500 mg tablet 500 mg PO BID #14 tabs 01/21 Unknown Rx nitroglycerin 0.4 mg sublingual 0.4 mg sublingual Q5M PRN chest 01/21/25 Unknown History tablet pain prednisone 20 mg tablet 60 mg (3 x 20 mg) PO DAILY # 15 01/21/25 Unknown Rx TABLETS Allergy/AdvReac Type Severity Reaction Status Date / Time No Known Allergies Allergy Verified 11/20/24 13:27 Social History (Updated 01/21/25 @ 10:[address] Eliseo Munson MD) household members: none Smoking Status: Current every day smoker tobacco type: cigarettes ROS ROS ED Constitutional Constitutional ED: Denies chills, fever(s) or subjective Eyes Eyes: Denies blurry vision or change in vision ENT ENT ED: Reports other Details: He does endorse mild congestion. ; Denies ear pain, rhinorrhea or sore throat Cardiovascular Cardiovascular: Reports chest pain; Denies orthopnea, palpitations, paroxysmal nocturnal dyspnea orracing heartbeat Respiratory/Chest Respiratory/Chest: Reports cough, dyspnea, dyspnea on exertion and sputum; Denies orthopnea or paroxysmal nocturnal dyspnea Gastrointestinal Gastrointestinal: Reports abdominal pain; Denies melena, nausea or vomiting Genitourinary Genitourinary ED: Denies dysuria, hematuria or urinary frequency Musculoskeletal Musculoskeletal: Denies arthralgias or myalgias Integumentary Denies rash Neurologic Neurologic: Reports weakness; Denies headache(s) or paresthesias Psychiatric Psychiatric: Denies anxiety or depression Endocrine Endocrinology: Denies cold intolerance or heat intolerance Hematologic/Lymphatic Hematologic/Lymphatic: Reports systems reviewed and no addt'l complaints, exceptas documented EXAM Physical Exam Const Vital Signs: 01/21/25 08:53 01/21/25 08:54 01/21/25 08:54 Temperature 97.7 F L 97.6 F L Temperature Source Oral Oral Pulse Rate 67 80 80 Respiratory Rate 21 H 16 Respiratory Pattern Blood Pressure 115/72 115/70 118/80 Blood Pressure Mean 86 85 92 Pulse Ox 97 100 98 Oxygen Delivery Method Room Air Room Air 01/21/25 09:34 01/21/25 09:54 01/21/25 09:54 Temperature 97.8 F Temperature Source Oral Pulse Rate 61 80 80 Respiratory Rate 16 18 18 Respiratory Pattern Normal Blood Pressure 118/70 118/70 Blood Pressure Mean 86 86 Pulse Ox 98 98 Oxygen Delivery Method Room Air 01/21/25 10:00 01/21/25 11:00 Temperature 97.8 F 97.8 F Temperature Source Oral Oral Pulse Rate 96 69 Respiratory Rate 19 H 17 Respiratory Pattern Blood Pressure 118/72 131/86 H Blood Pressure Mean 87 101 Pulse Ox 96 96 Oxygen Delivery Method Room Air Room Air Positive well nourished and well developed Constitutional Narrative: Vital signs are unremarkable. General Appearance ED: well developed; Negative for pallor HEENT Reports moist mucous membranes HEENT Narrative: Head is atraumatic and normocephalic. Ears normal. Posterior pharynx is normal Eyes PERRL and EOMs intact bilaterally General Eye ED: Negative for pale conjunctiva or scleral icterus Neck no lymphadenopathy, supple and no JVD Chest Wall inspection of chest normal and palpation of chest normal Resp normal respiratory effort and No clear to auscultation bilaterally Auscultation: rales left base and rhonchi throughout Cardio regular rate, regular rhythm, S1 normal heart sound and no murmurs GI normal to inspection, nondistended, normoactive bowel sounds and non-distended; Negative for non-tender, hepatosplenomegaly or no masses Palpation: soft and tender LUQ; Negative for guarding, splenomegaly, mass or rebound tenderness present Back/Spine no CVA tenderness Extremity Extremity Narrative: Significant scar lateral right knee. This is the reason he is in a wheelchair. When asked why he was in a wheelchair he pulled up his pant leg to show me his scar. Neuro oriented x3 and CN's II-XII intact bilaterally Sensorium / Orientation: alert Psych Mood & Affect: anxious Skin no rashes or lesions noted and no wounds General Skin Exam: elasticity normal; Negative for jaundice or pallor MDM MDM MDM Narrative Medical decision making narrative: Patient's chest pain is not consistent with cardiac. His symptoms are not consistent with pulmonaryembolus. Suspect he has a infection that is causing his pleuritic pain. Prior records were reviewedand summarized in the HPI portion of the EMR. Clinically patient does not have evidence of a DVT. When I went to reevaluate patient at [facility] he states his pain was worse. Since his renal panel is not back he was treated with Solu-Medrol which is a anti- inflammatory for his pleuritic pain and will help his COPD exacerbation. Lab Data Attestation: I reviewed the patient's lab results. Lab results narrative: CBC is unremarkable. Electrolyte panel reveals a CO2 of 20.5 and glucose of 129. Anion gap is normal. Liver enzymes are normal. Labs: Laboratory Results - last 24 hr 01/21/25 01/21/25 01/21/25 08:58 10:08 10:41 WBC 8.3 RBC 4.62 Hgb 14.7 Hct 43.8 MCV 94.8 H MCH 31.8 MCHC 33.6 RDW Std Deviation 48.6 H RDW Coeff of Naveed 13.9 Plt Count 288 MPV 11.6 Immature Gran % (Auto) 0.700 Neut % (Auto) 50.5 Lymph % (Auto) 32.3 [place] % (Auto) 10.6 H Eos % (Auto) 5.3 H Baso % (Auto) 0.6 Absolute Neuts (auto) 4.2 Absolute Lymphs (auto) 2.67 Nucleated RBC % 0 Sodium Cancelled Cancelled 139 Potassium Cancelled Cancelled 4.0 Chloride Cancelled Cancelled 104 Carbon Dioxide Cancelled Cancelled 20.5 L Anion Gap Cancelled Cancelled 15 BUN Cancelled Cancelled 16 Creatinine Cancelled Cancelled 0.89 Estim Creat Clear Calc Cancelled Cancelled 100.00 Est GFR (MDRD) Non-Af Cancelled Cancelled 104 BUN/Creatinine Ratio Cancelled Cancelled 18.1 Glucose Cancelled Cancelled 129 H Lactic Acid 1.8 Calcium Cancelled Cancelled 9.1 Total Bilirubin Cancelled Cancelled 0.28 AST Cancelled Cancelled 24 ALT Cancelled Cancelled 21 Alkaline Phosphatase Cancelled Cancelled 46 Total Protein Cancelled Cancelled 7.8 Albumin Cancelled Cancelled 4.3 Globulin Cancelled Cancelled 3.5 Albumin/Globulin Ratio Cancelled Cancelled 1.2 Radiography Chest X-Ray - ED: 2 View and Read by ED Physician (Patient with normal cardiac silhouette and size.Hilum appears normal. There is degenerative changes in the thoracic spine. Patient has some abnormal findings left upper lobe which may represent atelectasis, scarring or possible early infiltrate.) Diagnostic Testing: Clinical Impression(s) from Imaging Studies Chest X-Ray 01/21/25 09:12 IMPRESSION: Minimal increased markings in the lingular segment of the left upper lobe suggestive of atelectasisand/or early infiltrate. Follow-up recommended. Reading Location: [facility] Differential Diagnosis Chest pain/SOB: pulmonary embolism Reason(s) PE less likely: Positive for Well's<3, not tachycardic and not hypoxic, ACS ACS: Positive for EKG without ischemia and history not suggestive of ischemia pain, pneumothorax Reason(s) pneumothoraxless likely: Positive for bilateral breath sounds and CUTTING INSPECTOR withhout PTX, aortic dissection Reason(s) Aortic dissection less likely:: Positive for normal vascular exam, normal neurological exam, no significant risk factors for dissection, no widened mediastinum on CXR, pain not sudden onset, no ripping/tearing pain, no pain to back and blood pressure appropriate in ED and CHF Reason(s) CHF less likely: Positive for no significant peripheral edema, no orthopnea and no evidence of fluid overload on CXR Treatment and Re-Evaluation :: Patient was reassessed at 1215. His pain has improved he still has it. Still has some wheezing. In light of the fact that he is purulent sputum history of COPD and still wheezing will place on short course of doxycycline, burst of prednisone and NSAIDs since she has normal renal function. Discharge Plan Triage Chief Complaint: Chest Pain ED Provider: Eliseo Munson Dx/Rx/DC Orders Clinical Impression: Acute exacerbation of chronic obstructive pulmonary disease, Schizoaffective disorder, Lung nodule,Nicotine dependence, cigarettes, uncomplicated, Acute exacerbation of chronic bronchitis, Acute bronchospasm, Chest pain, pleuritic Instructions: ED COPD Flare Prescriptions: New prednisone 20 mg tablet 60 mg PO DAILY Qty: 15 0RF doxycycline monohydrate 100 mg capsule 100 mg PO BID Qty: 10 0RF albuterol sulfate [Ventolin HFA] 90 mcg/actuation HFA aerosol inhaler 2 puff inhalation Q4H PRN PRN (Reason: Wheezing) Qty: 1 0RF naproxen 500 mg tablet 500 mg PO BID Qty: 14 0RF No Action Artificial Tears (cmc) 1 % drops 1 drp ophthalmic (eye) BID aspirin [Adult Aspirin Regimen] 81 mg tablet,delayed release (DR/EC) 81 mg PO QDAY lorazepam 1 mg tablet 1 mg PO BID lorazepam 1 mg tablet 1 mg PO Q6H PRN (Reason: anxiety) atorvastatin 80 mg tablet 80 mg PO QDAY cholecalciferol (vitamin D3) 1,250 mcg (50,000 unit) capsule 1,250 mcg PO MOTH divalproex 250 mg tablet,delayed release (DR/EC) 250 mg PO TID fenofibrate nanocrystallized 145 mg tablet 145 mg PO QDAY folic acid 1 mg tablet 1 mg PO QDAY levetiracetam 750 mg tablet 750 mg PO BID magnesium oxide 500 mg magnesium tablet 500 mg PO QDAY melatonin 3 mg tablet 6 mg PO HS PRN (Reason: sleep) magnesium hydroxide [Milk of Magnesia] 400 mg/5 mL suspension 30 ml PO QDAY PRN (Reason: constipation) nicotine 10 mg cartridge 10 mg inhalation Q2H PRN PRN (Reason: SMOKING ALTERNATIVE) Rx Instructions: Do not exceed 8 cartridge per day trazodone 100 mg tablet 100 mg PO QHS acetaminophen [Tylenol] 325 mg tablet 650 mg PO Q6H PRN (Reason: fever or pain) haloperidol 0.5 mg tablet 0.5 mg PO BID ibuprofen 600 mg tablet 600 mg PO TID PRN (Reason: fever or pain) clopidogrel 75 mg tablet 75 mg PO DAILY nitroglycerin 0.4 mg tablet, sublingual 0.4 mg sublingual Q5M PRN (Reason: chest pain) Primary Care Provider: Jared Forde Referrals: Jared Forde MD [Primary Care Provider] - Print Language: Dominican Disposition Disposition: Home, Self Care What to do if you have Problems For any increased pain, shortness of breath, bleeding, nausea or vomiting, chestpain, or any unexpected problems, contact your Primary Care Provider. Call [facility] ([phone]) or report tothe closest Emergency Room. Call 911 if necessary. 01/21/25 1222 Cosigner Signature (if applicable): CC: Dr. Jared Forde MD ~ Signed [facility]08-25-2025 Radiology Diagnostic study note [facility] Imaging Services [address], [place] [address] Chest PA and Lateral MR#: [id number] Acct: [id number] Name: YONATHAN FERNANDEZ Rep #: [id number] : 1975 M 49 From: Jasper Ram MD PCP: Dr. Jared Forde MD Status: PRE ER Study:Chest PA and Lateral Date of Exam: 01/21/25 Exam# [id number] Ordering Dr: Sanjuanita Munson MD PROCEDURE: CHEST PA AND LATERAL 01/21/2025 REASON FOR EXAM: PRODUCTIVE COUGH, DYSPNEA TECHNIQUE: CHEST PA AND LATERAL COMPARISON: None FINDINGS: Hardware: EKG electrodes are seen. Heart: The heart size is normal. Mediastinum: The mediastinal contour is unremarkable. Lungs: Minimal increased markings in the lingular segment of the left upper lobesuggestive of either atelectasis and/or possible early infiltrate. Follow-up recommended. Bones: Degenerative changes are identified within the thoracic spine. RAD/Chest PA and Lateral IMPRESSION: Minimal increased markings in the lingular segment of the left upper lobe suggestive of atelectasisand/or early infiltrate. Follow-up recommended. Reading Location: [facility] CC: Dr. Jared Forde MD; Dr. Eliseo Munson MD ~ Organ Teacher: Signed [facility]08-11-2025 Radiology Diagnostic study note [facility] Imaging Services [address] [place] [address] 01/07/25 0739 MR#: [id number] Acct: [id number] Name: YONATHAN FERNANDEZ Rep #:[id number] : 1975 49 From: Denis Vivar MD PCP: Dr. Jared Forde MD Status:REG CLI Y Location: CT Calcium Scoring Date of Study:: 01/04/25 Indications Indications: FH Coronary Calcium Scoring: High-resolution Computed Tomographic imaging of the chest was performed on [01/04/25 ], with particular attention paid to the coronary arteries. Images from the examination were analyzed for the presence and extent of coronary artery calcification , using coronary calcium quantification software. Thepatient tolerated the procedure well and there were no complications. The results of thecoronary calcification analysis are provided below. Findings Coronary Artery Left Main (LM): 109 Left Anterior Descending (LAD): 446 Left Circumflex (LCX): 130 Right Coronary Artery (RCA): 3,808 Total Agatston Score: 4,493 Percentile Ranking: GREATER THAN 90% Calcium Scoring Interpretation: Different methods to categorize the overall amount of coronary plaque. Overall amount CAC SIS Visual of coronary plaque P1 Mild -100 <2 1-2 vessels with mild amount of plaque P2 Moderate 101-300 3-4 1-2 vessels with moderate amount, 3 vessels with mild amount of plaque P3 Severe 301-999 5-7 3 vessels with moderate amount, 1 vessel withsevere amount of plaque P4 Extensive >1000 >8 2-3 vessels with severe amount of plaque Calcium Score: Extensive: 2-3 vessels w/severe amount of plaque Conclusion: Severe triple-vessel disease with plaque as noted above 01/07/25 0741 Date _ Denis Vivar MD Cosigner Signature (if applicable): Date CC: Dr. Denis Vivar MD; Dr. Jared Forde MD ~ Signed [facility] Work Phone: 1(681) 826-135708-08-2025 Radiology Diagnostic study note [facility] Imaging Services [address] [place] [address] Cardiac Only MR#: [id number] Acct: [id number] Name: YONATHAN FERNANDEZ Rep #: [id number] : 1975 M 49 From: Jasper Ram MD PCP: Dr. Jared Forde MD Status: [facility] CL Study:Limited Chest CT Cardiac Only Date of E xam: 01/04/25 Exam# [id number] Ordering Dr: Eliseo Forde MD PROCEDURE: LIMITED CHEST CT CARDIAC ONLY 01/04/2025 REASON FOR EXAM: CORONARY ATHEROSCLEROSIS DUE TO CALCIFIED CORONARY Family history of coronary artery disease. TECHNIQUE: LIMITED CHEST CT CARDIAC ONLY CONTRAST: None One or more dose reduction techniques were used (e.g., Automated exposure control, adjustment of the mA and/or kV according to patient size, use of iterative reconstruction technique). RADIATION DOSE SUMMARY: CTDlvol: 12.19 mGy DLP: 219.42 mGycm COMPARISON: None FINDINGS: Atherosclerotic calcification of the aortic arch. Extensive coronary artery calcification. Mild degree of anterior pericardial thickening. There is a 1.5 cm well-defined non calcified nodule in the lateral aspect of theright lower lobe asseen on axial image number 52. There is also evidence of linear scarring in the lingular segment of the left upper lobe. CT/Limited Chest CT Cardiac Only IMPRESSION: Coronary artery calcification. 1.5 cm well-defined noncalcified nodule in the lateral aspect of the right lowerlobe as seen on axial image number [address] scan of the thorax following IV contrast recommended for further evaluation. Reading Location: [facility] CC: Dr. Jared Forde MD ~ Organ Teacher: Signed [facility]06-11-2025 Radiology Diagnostic study note [facility] Imaging Services [address] [place] [id number] Chest without Contrast MR#: [id number] Acct: [id number] Name: YONATHAN FERNANDEZ Rep #: [id number] : 1975 M 49 From: Jasper Ram MD PCP: Dr. Jared Forde MD Status: REG CLI Study:Chest without Contrast Date of Exam: 11/07/24 Exam# [id number] Ordering Dr: Modi DO PROCEDURE: CHEST WITHOUT CONTRAST 11/07/2024 REASON FOR EXAM: LUNG NODULE TECHNIQUE: Chest CT without contrast. Coronal and Sagittal reconstruction series were provided. One or more dose reduction techniques were used (e.g., Automated exposure control, adjustment of the mA and/or kV according to patient size, use of iterative reconstruction technique RADIATION DOSE SUMMARY: CTDlvol: 13.64 mGy DLP: 497.5 mGycm COMPARISON: Prior CT scan of the abdomen and pelvis dated February 09, 2024. FINDINGS: Hardware: None Lymph nodes: Small benign-appearing bilateral axillary lymph nodes. Small benign-appearing mediastinal lymph nodes. Heart and Vasculature: The heart is not enlarged. Atherosclerotic calcifications of the thoracic aorta. Thoracic aorta and pulmonary arteries have normal contours; noncontrast technique limits evaluation. Coronary Artery Calcifications: Present Lungs and Airways: There is a 1.2 cm well-defined nodule in the posterior aspectof the right lower lobe as seen on axial image number 127. This is unchanged as compared to prior CT scan of the abdomen and pelvis. Minimal linear scarring in the anterior aspect of the lingular segment of the left upper lobe. Pleura: No pleural effusion. Upper Abdomen: 1.4 cm hypodense nodule in the crux of the left adrenal gland suggestive of a small adrenal adenoma. This is unchanged. Bones: Degenerative changes of the thoracic spine. CT/Chest without Contrast IMPRESSION: Coronary artery calcification (CAC) is is present Stable 1.2 cm well-defined noncalcified nodule in the posterior aspect of the right lower lobe as described. Stable 1.4 cm hypodense nodule in the crux of the left adrenal gland suggestive of a small adenoma. Reading Location: [facility] CC: Dr. Duarte Infante DO; Dr. 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 He presents today [...] There is no evidence of open wound, drainage,significant erythema. There is no significant effusion to the left knee. Passive range of motion is0-1 30, active range of motion is 0-1 [...] We did encourage him to continue taking wdfy-nha-opiblez NSAIDs as needed for pain, as well [...] dry eyes. cholecalciferol (Vitamin D-3) 1.25 MG (18121 UT) capsule Take 50,000 Units by mouth 1 (one) time per week. cholecalciferol (Vitamin D3) 1.25 MG (21854 UT) tablet Take 50,000 Units by mouth [...] medications for this visit. documented in this [facility]05-09-2025 Evaluation note* Diagnosis Onset Date Resolution Status Admit Date Lung nodule chronic October 05, 2024 10:10am Nicotine dependence, cigaret mar, uncomplicated chronic October 05, 2024 10 :10am [facility] Work Phone: 1(394) 822-221805-09-2025 Evaluation note* Diagnosis Onset Date Resolution Status Admit Date Lung nodule chronic October 05, 2024 10:10am Nicotine dependence, cigaret mar, uncomplicated chronic October 05, 2024 10 :10am Lung nodule chronic November 20 1:20pm Nicotine dependence, cigaret mar, uncomplicated chronic November 20, 2024 1:20pm [facility] Work Phone: 1(464) 309-988005-09-2025 Evaluation note* Diagnosis Onset Date Resolution Status Admit Date Lung nodule chronic October 05, 2024 10:10am Nicotine dependence, cigaret mar, uncomplicated chronic October 05, 2024 10 :10am Lung nodule chronic November 20 1:20pm Nicotine dependence, cigaret mar, uncomplicated chronic November 20, 2024 1:20pm Schizoaffective disorder chronic November 20, 2024 1:20pm [facility] Work Phone: 1(387) 117-442602-18-2025 History of Present illness Narrative* Joyce Hennessy MD - 07/17/2024 1:30 PM EST [facility] - [address] [facility] [address] Dept: [phone] Dept Chief Complaint Patient presents with Post-op DOS 06/20/24 1. Open Biopsy Right Proximal Tibia adding approximately 20 minutes to the case confirming giant cell tumor 2. Curettage and cement augmentation Right Proximal tibia 3. Prophylactic Plating Right Tibia SUBJECTIVE HPI 49-year-old male status post curettage of an extensive giant cell tumor of the right proximal tibiawith curettage cementation and a prophylactic plating on the lateral side. 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 Hehas essentially no complaints but he has been reluctant to walk but the most important factor limiting that is that he is in a chcf and does not have a lot of [...] dry eyes. cholecalciferol (Vitamin D-3) 1.25 MG (03190 UT) capsule Take 50,000 Units by mouth 1 (one) time per week. cholecalciferol (Vitamin D3) 1.25 MG (23854 UT) tablet Take 50,000 Units by mouth [...] extension but has full flexion. No effusion isnoted. XRAY INTERPRETATION X-rays were obtained of the [...] tibia status post aggressive curettage and cementation PLAN He is doing very well. I would allow him continue weightbearing as tolerated work on range of motion we did write for physical therapy in hopes that he can get some ambulatory practice in his chcf. He is already taking Ultram for pain [...] 07/17/2024 at 1:49 PM documented in this encounterSPomerene [id number] Telephone encounter Note* Telephone Encounter - Darby Sandoval - 07/12/2024 10:07 AM EST Right faxed tissue exam report and op report to [id number] Miscellaneous Notes* Telephone Encounter - Darby Sandoval - 07/12/2024 10:07 AM EST Right faxed tissue exam report and op report to [facility]. * Telephone Encounter - Divine Montalvo - 07/11/2024 9:52 AM EST Ana called asking for the biopsy results and any surgical notes to be faxed to her at [phone]. Please advise. * Telephone Encounter - Shanice Rowan RN - 06/27/2024 1:26 PM EST Returned call to Anahy OK to remove octavia 07/12/24 he has a PO appt with Dr Hennessy 07/17/24 will get an xray at this visit Ok to apply steri strips to incision if any concerns Anahy verbalized understanding * Telephone Encounter - Darby Sandoval - 06/27/2024 10:11 AM EST Ana (nurse) from [facility] [place] [place] called to see if Yonathan needs his octavia removed before his 07/17 post op appointment. She can be reached at [phone], she does not have an extension, just ask for Ana. documented in this encounterSPomerene [id number] Telephone encounter Note* Telephone Encounter - Divine Montalvo - 07/11/2024 9:52 AM EST Ana called asking for the biopsy results and any surgical notes to be faxed to her at [phone]. Please advise. [id number] Miscellaneous Notes* Telephone Encounter - Divine Montalvo - 07/11/2024 9:52 AM EST Ana called asking for the biopsy results and any surgical notes to be faxed to her at [phone]. Please advise. * Telephone Encounter - Shanice Rowan RN - 06/27/2024 1:26 PM EST Returned call to Anahy SIMPSON to remove octavia 07/12/24 he has a PO appt with Dr Hennessy 07/17/24 will get an xray at this visit Ok to apply steri strips to incision if any concerns Anahy verbalized understanding * Telephone Encounter - Darby Sandoval - 06/27/2024 10:11 AM EST Ana (nurse) from [facility] [place] [place] called to see if Yonathan needs his octavia removed before his 07/17 post op appointment. She can be reached at [phone], she does not have an extension, just ask for Ana. documented in this encounterSPomerene [id number] Telephone encounter Note* Telephone Encounter - Shanice Rowan RN - 06/27/2024 1:26 PM EST Returned call to Anahy OK to remove octavia 07/12/24 he has a PO appt with Dr Hennessy 07/17/24 will get an xray at this visit Ok to apply steri strips to incision if any concerns Anahy verbalized understanding [facility]Amqkpv05-63-8662 Telephone encounter Note* Telephone Encounter - Darby Sandoval - 06/27/2024 10:11 AM EST Ana (nurse) from [facility] [place] [place] called to see if Yonathan needs his octavia removed before his 07/17 post op appointment. She can be reached at [phone], she does not have an extension, just ask for Ana. [id number] Nurse Note* Rajni Vital RN - 06/21/2024 5:53 PM EST Patient picked up for discharge to [facility] [place] [place] by stretcher. Discharge paperwork folder handed to transportation staff, prescriptions included in folder. [id number] Nurse Note* Rajni Vital RN - 06/21/2024 5:53 PM EST Patient picked up for discharge to [facility] [place] [place] by stretcher. Discharge paperwork folder handed to transportation staff, prescriptions included in folder. * Rajni Vital RN - 06/21/2024 3:15 PM EST Nursing phone report called to nurse Jacome at [facility] [place] [place] ([facility]). documented in this [facility]01-23-2025 Nurse Note* Rajni Vital RN - 06/21/2024 3:15 PM EST Nursing phone report called to nurse Ayaz at [facility] [place] [place] ([facility]). [id number] Note* Care Coordination - TATY Dean - 06/21/2024 2:08 PM EST Arranged transport to [facility] with pickup at 4:30pm. Notified snf oftransport time via phone call at [phone] as they are not in [facility] per TCC. Klaudia at the facility states she is agreeable to pt's return and will pass on the information to pt's care providers. Notified RN, community service aide and TCC of transport time. Left voice mail for pt's mother Shanice with discharge time and provided Social Work and floor contact numbers in case she has questions. [facility] [id number] Note* Care Coordination - TATY Dean - 06/21/2024 2:08 PM EST Arranged transport to [facility] with pickup at 4:30pm. Notified snf oftransport time via phone call at [phone] as they are not in [facility] per TCC. Klaudia at the facility states she is agreeable to pt's return and will pass on the information to pt's care providers. Notified RN, community service aide and TCC of transport time. Left voice mail for pt's mother Shanice with discharge time and provided Social Work and floor contact numbers in case she has questions. [facility] [id number] Miscellaneous Notes* Care Coordination - TATY Dean - 06/21/2024 2:08 PM EST Arranged transport to [facility] with pickup at 4:30pm. Notified snf oftransport time via phone call at [phone] as they are not in [facility] per TCC. Klaudia at the facility states she is agreeable to pt's return and will pass on the information to pt's care providers. Notified RN, community service aide and TCC of transport time. Left voice mail for pt's mother Shanice with discharge time and provided Social Work and floor contact numbers in case she has questions. * Care Coordination - KRISTINA Garvin - 06/21/2024 12:01 PM EST SW consult w / assigned unit [facility]RA Pemberton and informed of MAYRA consult. Zhanna reported Pt from Nursing facility where he will be returning. Zhanna plan to follow up w/ Pt needs. * Care Coordination - Francie Gunter - 06/21/2024 10:13 AM EST Med Rec Faxed to SNF- [facility] [place] [place]/[facility] per [employer] request Electronically signed by Francie Gunter [facility], 06-21-2024 10:17AM * Care Coordination - Kristi Velasquez RN - 06/21/2024 8:56 AM EST Message received from Ortho that patient will likely be ready to return to [facility] [place] [place] ([facility]) today and requests for auth to be started for that process. Noted return referral in [facility] sent yesterday without response. Call to facility . They verified that patient is [facility] care there and will be able to return without auth. There person I spoke with was unsure if anyone int he building had access to [facility] and asked for paperwork to be faxed to: [phone]. Ortho updated. * Care Plan - Katie Damon RN - 06/20/2024 10:07 PM EST Problem: Knowledge Deficit Goal: Patient/family/caregiver demonstrates understanding of disease process, treatment plan, medications, and discharge instructions Outcome: Progressing Problem: Potential for Compromised Skin Integrity Goal: Skin Integrity is Maintained or Improved Outcome: Progressing Goal: Nutritional status is improving Outcome: Progressing Problem: Urinary Incontinence Goal: Perineal skin integrity is maintained or improved Outcome: Progressing * Care Coordination - KRISTINA Garvin - 06/20/2024 3:29 PM EST SW consult: No reason listed Covering SW reviewed chart. SW met w /Pt, introduced self, and inquired upon Pt's living arrangements. Pt responded with pleasant demeanor and stated he is not sure where he lives. Pt did not present as a good historian. SW plan to follow up w / TCC and / or assigned unit SW. SW following. * Nurse Navigation Note - Beth Tavares RN - 06/20/2024 1:04 PM EST Patient sated he did not want anyone called to updated * Care Coordination - Francie Michael Jani - 06/20/2024 12:39 PM EST Return Referral placed to [facility] via [facility] per TCC request. Await review and response regarding ability to accept. TCC notified. Electronically signed by LUCAS Gunter, 06-20-2024 at 12:41 PM * Op Note - Joyce Hennessy MD - [...] aggressive benign tumor. Surgeon: Joyce Hennessy M.D. Testboard Operator(s): Neville PGY-5, Abdullahi PGY-3 Anesthesia: general EBL: [...] as well as medical complications such as MS, stroke, PE, DVT, and even . Pt [...] Jocelyn Lozada MD at 06/20/24, 12:44 PM * Care Plan - Eli Lantigua RN - 06/19/2024 11:22 PM EST Problem: Knowledge Deficit Goal: Patient/family/caregiver demonstrates understanding of disease process, treatment plan, medications, and discharge instructions Outcome: Progressing Problem: Potential for Compromised Skin Integrity Goal: Skin Integrity is Maintained or Improved Outcome: Progressing Goal: Nutritional status is improving Outcome: Progressing documented in this [facility]01-23-2025 NoteOrthopedic Progress Note Name: Yonathan Fernandez Date:06/21/2024 Attending:Joyce [...] to follow-up as an outpatient with Dr. Mark PARSONS in 2-3 weeks. Discussed with patient plan [...] Historical ProviderMD cholecalciferol (Vitamin D-3) 1.25 MG (28811 UT) capsule Take 50,000 Units by mouth 1 (one) time per week. Historical ProviderMD cholecalciferol (Vitamin D3) 1.25 MG (64142 UT) tablet Take 50,000 Units by mouth [...] if needed for smoking cessation. Historical Provider, oxyCODONE-acetaminophen (Percocet) 5-325 MG tablet Take 1 [...] Jocelyn Lozada MD, 300 mg at 06/20/24 2123 HYDROmorphone (Dilaudid) injection 0.25 mg, 0.25 mg, [...] MD naloxone (Narcan) injecti (more content not included)...[facility] 06-21-2024 History of Present illness Narrative* Leny Esquivel PA-C - 06/21/2024 12:48 PM EST Images from the original note [...] and to follow-up as an outpatient with JAQUELINE in 2-3 weeks. Discussed with patient [...] Historical ProviderMD cholecalciferol (Vitamin D-3) 1.25 MG (27411 UT) capsule Take 50,000 Units by mouth 1 (one) time per week. Historical ProviderMD cholecalciferol (Vitamin D3) 1.25 MG (74118 UT) tablet Take 50,000 Units by mouth [...] Nightly, Jocelyn Lozada MD, 300 mg at 123 HYDROmorphone (Dilaudid) injection 0.25 mg, 0.25 mg, [...] -F/u OP w/ Dr. Hennessy JAQUELINE, Franck Giovanny, in 2-3 weeks. Patient will discharge to a facility, will defer appointment management at this time -Ortho primary; plan for discharge to facility today pending medical clearance and pain control * Benjymason Mckennaglenn, DO - 06/21/2024 12:03 PM EST Hospitalist Progress Note 06/21/2024 Subjective: Admit Date: 06/19/2024 PCP: Jared Forde MD Room#: N5-586/[id number] A BRIEF HOSPITAL COURSE: Yonathan is a 49 y.o. male with a PMH of alcoholic dementia, arthritis, depression, epilepsy, schizoaffective disorder, MS, TIA, PVD, COPD, right proximal tibial lesion [...] H/O alcoholic dementia Arthritis Depression Epilepsy H/O MS on asa, plavix, statin - does not [...] Aguilera DO Division of Hospitalist Medicine [employer] * Maxine Ray OTR/Tejinder - 06/21/2024 11:40 AM EST Images from the original note were not included. OCCUPATIONAL THERAPY [facility] Initial Evaluation Name/MRN: Yonathan Fernandez ([id number]) Evaluation Date: 06/21/2024 Date of : 1975 Admission Date: 06/19/2024 9:09 AM Age: 49 y.o. Room[facility]Bed: N5566/[facility] A Discharge Recommendation: Long Term Facility Assessment IMPRESSION: Pt would benefit from continued therapies to maximize potential and increase indep withADLs. Recommend SNF level therapies at discharge. Admitting [...] able to take several steps from EOB <- >bedside chair withuse of FWW with min assist and assist to maneuver FWW. Pt required step by step commands and verbalcues for correct hand placement during all transfers. [...] of Care supervision is transferred to a [facility] Occupational Therapist. Goals and/or treatment plan was established in collaboration with patient/family/other representatives. Maxine Ray MS, OTR/L * Janice Aiken - 06/21/2024 10:32 AM EST Nutrition rescreen completed. Chart reviewed. Patient to be monitored and followed by the diet wastewater technician. COLLEEN Mosher * Mike Austin Gallagher, PT - 06/21/2024 10:31 AM EST Images from the original note were not included. PHYSICAL THERAPY [facility] Initial Evaluation Name/MRN: Yonathan Fernandez ([id number]) Evaluation Date: 06/21/2024 Date of : 1975 Admission Date: 06/19/2024 9:09 AM Age: 49 y.o. Room/Bed: [facility] A Discharge Recommendation: Long Term Facility Other: tgbd Assessment IMPRESSION: Pt presents [...] Raw Score (No Stairs) : 10 [facility] Score: Static standing (1 or more minutes) [...] 90 degrees in order to improve safety withfunctional mobility. Start: 06/21/24 Expected End: 07/19/24 Mobility [...] of Care supervision is transferred to a [facility] Physical Therapist. Goals and/or treatment plan was established in collaboration with patient/family/other representatives. * Leny Esquivel PA-C - 06/21/2024 8:12 AM EST Orthopedic Surgery Progress Note Because patient will [...] by myself under a carefully monitored basis. * Jocelyn Lozada MD - 06/21/2024 6:13 AM EST Orthopedic Progress Note Name: Yonathan Fernandez Date:06/21/2024 [...] primary Jocelyn Lozada MD Orthopaedic Surgery PGY-5 *[id number] * Benjy Aguilera DO - 06/20/2024 8:18 AM EST Hospitalist Progress Note 06/20/2024 Subjective: Admit Date: 06/19/2024 PCP: Jared Forde MD [facility]#: [facility] A BRIEF HOSPITAL COURSE: Yonathan is a 49 y.o. male with a PMH of alcoholic dementia, arthritis, depression, epilepsy, schizoaffective disorder, MS, TIA, PVD, COPD, right proximal tibial lesion [...] H/O alcoholic dementia Arthritis Depression Epilepsy H/O MS on asa, plavix, statin - does not [...] Benjy Aguilera DO Division of Hospitalist Medicine [facility] * Jocelyn Lozada MD - 06/20/2024 5:41 AM EST Orthopedic Progress Note Name: Yonathan Fernandez Date:06/20/2024 [...] curettage, cement augmentation and prophylactic plating 06/20 -NPO@ID -Clearance/optimization pending -Med consult p -Consent p -Added -Labs -Ice -NWB RLE -Admit to Ortho -Pain control and medical management per medicine/APS -Please hold DVT prophylaxis in anticipation of OR -Please comment on clearance in case of OR, page ortho pgr [phone] with clearance status Jocelyn Lozada MD Orthopaedic Surgery PGY-5 *[id number] * Leny Esquivel PA-C - 06/19/2024 3:15 PM EST Orthopedic surgery progress note Chart reviewed. Patient with baseline altered mental status and unable to make medical decisions. There were no available familial contacts in chart, therefore, patient's facility ([place], [place]) was contacted for point of contact assistance. Discussed with facility credit and collections representative. Patient has children who are estranged from patient. Patient mother is the primary decision maker for the patient, Shanice Coburn, whose contact information was added to the patient's chart. Per facility credit and collections representative, attempts were made at obtaining patienta legal guardian, as patient qualifies for legal guardianship. However, there is limited supply of guardians in the county where patient resides, and therefore guardianship has not been established. Called and spoke with Shanice, as below, to obtain consent for surgery tomorrow. I had a long discussion with the patient's mother, Shanice Coburn ([phone]) regarding the surgical treatment option of right tibia biopsy with curettage, cement augmentation, and prophylactic plate. The risks and benefits of surgery were discussed with Shanice at length. Shanice conveyed understanding. All questions were answered to Shanice's satisfaction. Shanice states that if a transfusion of blood is recommended for lifesaving measures , the patient iswilling to have a blood transfusion. Shanice was [...] primary. Please page resident on-call with questions/concerns. * Mike Gallagher, PT - 06/19/2024 1:58 PM EST Images from the original note were not included. PHYSICAL THERAPY [facility] Name/MRN: Yonathan Fernandez ([id number]) Date: 06/19/2024 Hold Note Per EMR plan for OR for R tibia biopsy with curettage, cement augmentation and prophylactic plating06/20\. Will re-attempt as able. Mike Gallagher PT documented in this [facility]01-23-2025 NoteHospitalist Progress Note 06/21/2024 Subjective: Admit Date: 06/19/2024 PCP: Jared Forde MD Room#: [id number] A BRIEF HOSPITAL COURSE: Yonathan is a 49 y.o. male with a PMH of alcoholic dementia, arthritis, depression, epilepsy, schizoaffective disorder, MS, TIA, PVD, COPD, right proximal tibial lesion [...] H/O alcoholic dementia Arthritis Depression Epilepsy H/O MS on asa, plavix, statin - does not [...] Benjy Chaney DO Ale Division of Hospitalist (more content not included)...[facility] 06-21-2024 Note* Care Coordination - KRISTINA Garvin - 06/21/2024 12:01 PM EST SW consult w / assigned unit MAYRA [place] and informed of MAYRA consult. Zhanna reported Pt from Nursing facility where he will be returning. Zhanna plan to follow up w/ Pt needs. [id number]* Care Coordination - KRISTINA Garvin - 06/21/2024 12:01 PM EST MAYRA consult w / assigned unit MAYRA [place] and informed of MAYRA consult. Zhanna reported Pt from Nursing facility where he will be returning. Zhanna plan to follow up w/ Pt needs. [facility]01-23-2025 NoteOCCUPATIONAL THERAPY [facility] Initial Evaluation Name/MRN: Yonathan Fernandez ([id number]) Evaluation Date: 06/21/2024 Date of : 1975 Admission Date: 06/19/2024 9:09 AM Age: 49 y.o. [facility] A Discharge Recommendation: Long Term Facility Assessment IMPRESSION: Pt would benefit from [...] of Care supe (more content not included)... [facility]01-23-2025 NotePHYSICAL THERAPY [facility] Initial Evaluation Name/MRN: Yonathan Fernandez ([id number]) Evaluation Date: 06/21/2024 Date of : 1975 Admission Date: 06/19/2024 9:09 AM Age: 49 y.o. [facility] A Discharge Recommendation: Long Term Facility Other: tgbd Assessment IMPRESSION: Pt presents [...] Raw Score (No Stairs) : 10 [facility] Score: Static standing (1 or more minutes) [...] no alarms engaged u (more content not included)...[facility]01-23-2025 Note* Care Coordination - Francie Michael Jani - 06/21/2024 10:13 AM EST Med Rec Faxed to [facility] per [facility] request Electronically signed by Francie Gunter [facility], 06-21-2024 10:17AM [facility]01-23-2025 Note* Care Coordination - Francie Rodriguez [facility] - 06/21/2024 10:13 AM EST Med Rec Faxed to [facility]- [facility] [place] [place]/[facility] per [employer] request Electronically signed by Francie Gunter [facility], 06-21-2024 10:17AM [facility]01-23-2025 Note* Care Coordination - Kristi Velasquez RN - 06/21/2024 8:56 AM EST Message received from Ortho that patient will likely be ready to return to [facility] [place] [place] ([facility]) today and requests for auth to be started for that process. Noted return referral in [facility]port sent yesterday without response. Call to facility . They verified that patient is [facility] care there and will be able to return without auth. There person I spoke with was unsure if anyone int he building had access to [facility] and asked for paperwork to be faxed to: [phone]. Ortho updated. [facility]01-23-2025 Note* Care Coordination - Kristi Velasquez RN - 06/21/2024 8:56 AM EST Message received from Ortho that patient will likely be ready to return to [facility] [place] [place] ([facility]) today and requests for auth to be started for that process. [facility] Call to facility . They verified that patient is terminal clerk care there and will be able to return without auth. There person I spoke with was unsure if anyone int he building had access to [facility] and asked for paperwork to be faxed to: [phone]. Ortho updated. [facility]01-23-2025 NoteOrthopedic Surgery Progress Note Because patient will discharge [...] by myself under a carefully monitored basis. [facility]01-23-2025 NoteOrthopedic Progress Note Name: Yonathan Fernandez Date:06/21/2024 Attending:Joyce [...] primary Jocelyn Lozada MD Orthopaedic Surgery PGY-5 *[address] [place], [place] [address]01-22-2025 Plan of care note* Care Plan - Katie Damon RN - 06/20/2024 10:07 PM EST Problem: Knowledge Deficit Goal: Patient/family/caregiver demonstrates understanding of disease process, treatment plan, medications, and discharge instructions Outcome: Progressing Problem: Potential for Compromised Skin Integrity Goal: Skin Integrity is Maintained or Improved Outcome: Progressing Goal: Nutritional status is improving Outcome: Progressing Problem: Urinary Incontinence Goal: Perineal skin integrity is maintained or improved Outcome: Progressing [id number]* Care Coordination - KRISTINA Garvin - 06/20/2024 3:29 PM EST SW consult: No reason listed Covering SW reviewed chart. SW met w /Pt, introduced self, and inquired upon Pt's living arrangements. Pt responded with pleasant demeanor and stated he is not sure where he lives. Pt did not present as a good historian. SW plan to follow up w / TCC and / or assigned unit SW. MAYRA following. [facility] [id number] Note* Care Coordination - KRISTINA Garvin - 06/20/2024 3:29 PM EST SW consult: No reason listed Covering MAYRA reviewed chart. SW met w /Pt, introduced self, and inquired upon Pt's living arrangements. Pt responded with pleasant demeanor and stated he is not sure where he lives. Pt did not present as a good historian. SW plan to follow up w / TCC and / or assigned unit SW. MAYRA following. [facility] [id number] NoteDischarge Summary Yonathan Fernandez : 1975 ADMIT DATE: 06/19/2024 DISCHARGE DATE: 06/21/2024 PRIMARY CARE PHYSICIAN: Jared Forde VISIT STATUS: Admission CODE STATUS: Prior DISCHARGE DIAGNOSES: Principal Problem: Neoplasm of right tibia HOSPITAL COURSE: Patient was initially seen in office on 06/19. Patient was found to have an impending fracture of the right proximal tibia and was sent as direct admit that [facility] in 06/19. Patient was set up for [...] as: Refresh Plus * cholecalciferol 1.25 MG (21681 UT) capsule Commonly known as: Vitamin D-3 * cholecalciferol 1.25 MG (42976 UT) tablet Commonly known as: Vitamin D3 [...] Your Medications These medications were sent to [facility] [address] [place] [address] Hours: Tuesday to Tuesday 10 am to [...] Complexity: follow up within 7-14 calendar days (96649) [] Severe Complexity: follow up within 7 calendar days (69148) FOLLOW UP TESTING, PENDING RESULTS OR REFERRALS AT TRANSITIONAL CARE VISIT: [] Yes [x] No PENDING STUDIES: None DISPOSITION: Skilled Facility FACILITY/HOME CARE AGENCY NAME: n/a Follow up with Joyce Hennessy MD [address] [place] [address] Schedule an appointment as soon as possible [...] minutes SIGNED: Jocelyn Lozada MD 06/22/2024, 1:[address] [facility]01-22-2025 Note* Nurse Navigation Note - Beth Tavares RN - 06/20/2024 1:04 PM EST Patient sated he did not want anyone called to updated [facility]01-22-2025 Note* Nurse Navigation Note - Beth Tavares RN - 06/20/2024 1:04 PM EST Patient sated he did not want anyone called to updated [facility]01-22-2025 Hospital Discharge instructions* Discharge Instructions* Leny Esquivel PA-C - 06/20/2024 12:54 PM [...] for saturation. If after 5 days incision, mayleave incision open to air. -May shower starting [...] up in [address] Hennessy * Discharge Instr - REBECCA* Leny Esquivel PA-C - 06/21/2024 7:49 AM EST Images from the original note were not included. Continuity of Care Form Patient Name: Yonathan Fernandez : 1975 Admit date: 06/19/2024 Discharge date: Code Status Order: Full Code Advance Directives: N Admitting Physician: Joyce Hennessy MD PCP: Jared Forde MD Discharging Nurse: Discharging Hospital Unit/Room#: N6-656/N8-007 A Discharging Unit Phone Number: Emergency Contact: [...] (181 lb) Mental Status: {REBECCA Patient Mental Status:21047} IV Access: {REBECCA IV Access:31432} Nursing Mobility/ADLs: Walking {AYALA ADL:48829::Independent} Transfer {AYALA ADL:67729::Independent} Bathing {AYALA ADL:08136::Independent} Dressing {AYALA ADL:81568::Independent} Toileting {AYALA ADL:52919::Independent} Feeding {AYALA ADL:38529::Independent} Dining Room Attendant Cafeteria {AYALA ADL:66903::Independent} Med Delivery {yes/no:96908} Wound Care Documentation and Therapy: Wound/Incision 06/20/24 [...] incision open to air. Elimination: Continence: Bowel: {yes/no:88143} Bladder: {yes/no:58114} Urinary Catheter: {REBECCA Urinary Catheter:64383} Colostomy/Ileostomy/Ileal Conduit: {YES / NO:} Date of [...] Weight: 82.1 kg Safety Concerns: {REBECCA Safety Concerns:94523} Impairments/Disabilities: {REBECCA Impairments/Disabilities:45192} Nutrition Therapy: Current Nutrition Therapy: {REBECCA Diet List:98265} Routes of Feeding: {routes of feedin} Liquids: {liquid consistency:48989} Daily Fluid Restriction: {daily fluid restriction:88844} Last Modified Barium Swallow with Video (Video Swallowing Test): {done not done:44453} Treatments at the Time of Hospital Discharge: Respiratory Treatments: Oxygen Therapy: {Therapy; copd oxygen:41526} Ventilator: {REBECCA Ventilator:17226} Rehab Therapies: {GEN THERAPY DISCIPLINE SCAL:8651571} Weight Bearing Status/Restrictions: {POD WEIGHT BEARIN} Other Medical Equipment (for information only, NOT a DME order): {Assistive Devices DME:05007} Other Treatments: Patient's personal belongings (please select all that are sent with patient): {REBECCA Patient Belongings:87999} RN SIGNATURE: {E-signature:34867} CASE MANAGEMENT/SOCIAL WORK SECTION Inpatient Status Date: 06/19/2024 Discharging to Facility/ Agency Name: [facility] Address: [address] [place] [address] Dialysis Facility (if applicable) Name: Address: Dialysis Schedule: Phone: Fax: [employer] F[employer] Hand/Production Control Analyst signature: ICIAN SECTION Name: Yonathan Fernandez Prognosis: good Condition at Discharge: stable Rehab Potential (if transferring to Rehab): good Recommended Labs or Other Treatments After Discharge: PT/OT The individual is being admitted to a nursing facility directly from an [facility] or a unit of a hospital that is not operated by or licensed by [facility] under section 5119.14 or 5160-3-15.1 5 The [...] in H&P PHYSICIAN SIGNATURE: documented in this [facility]01-22-2025 Anesthesiology Postoperative evaluation and management note* Anesthesia Postprocedure Evaluation - Jas HernandezCHRISTINA - DENTURE PACKER - 06/20/2024 12:49 PM EST Patient: Yonathan Fernandez Procedure Summary Date: 06/20/24 Room / Location: [address] Operating Room Anesthesia Start: 957 Anesthesia [...] a current smoker (e.g. cigarette, cigar, pipe, e- cigarette/vaping/marijuana) If no stop here (XX404) I completed my handoff to the receiving clinician during which we: 1. Identified the patient 2. Identified the responsible provider 3. Reviewed the pertinent medical history 4. Discussed the surgical course 5. Reviewed intra-op anesthesia management and issues during anesthesia 6. Set expectations for post-procedure period 7. Allowed opportunity for questions and acknowledgement of understanding. [employer] Phone: [phone] 680-426901-22-2025 NotePatient: Yonathan Fernandez Procedure Summary Date: 06/20/24 Room / Location: [address] Operating Room Anesthesia Start: 957 Anesthesia [...] Allowed opportunity for questions and acknowledgement of understanding.[facility]01-22-2025 Note* Anesthesia Discharge Note - Jas Aguiar DagobertodanielleCHRISTINA CRNA - 06/20/2024 12:49 PM EST Patient: Yonathan Fernandez Procedure Summary Date: 06/20/24 Room / Location: [address] Operating Room Anesthesia Start: 957 Anesthesia [...] once all PACU criteria has been met. [id number] NotePatient: Yonathan Fernandez Procedure Summary Date: 06/20/24 Room / Location: [address] Operating Room Anesthesia Start: 957 Anesthesia [...] discharged once all PACU criteria has been met.[facility]01-22-2025 Miscellaneous Notes* Anesthesia Discharge Note - CHRISTINA Harden CRNA - 06/20/2024 12:49 PM EST Patient: Yonathan Fernandez Procedure Summary Date: 06/20/24 Room / Location: [address] Operating Room Anesthesia Start: 957 Anesthesia [...] criteria has been met. documented in this [facility]01-22-2025 Surgical operation note* Anesthesia Postprocedure Evaluation - CHRISTINA Harden CRNA - 06/20/2024 12:49 PM EST Patient: Yonathan Fernandez Procedure Summary Date: 06/20/24 Room / Location: [address] Operating Room Anesthesia Start: 957 Anesthesia [...] a current smoker (e.g. cigarette, cigar, pipe, e- cigarette/vaping/marijuana) If no stop here (XX404) I completed my handoff to the receiving clinician during which we: 1. Identified the patient 2. Identified the responsible provider 3. Reviewed the pertinent medical history 4. Discussed the surgical course 5. Reviewed intra-op anesthesia management and issues during anesthesia 6. Set expectations for post-procedure period 7. Allowed opportunity for questions and acknowledgement of understanding. * Anesthesia Procedure Notes - CHRISTINA Harden CRNA - 06/20/2024 10:15 AM ESTAssociated Order(s): Airway Airway Date/Time: 06/20/2024 10:01 AM Urgency: scheduled Airway not difficult General Information and Staff Patient location during procedure: Procedural Resident/DENTURE PACKER: CHRISTINA Harden CRNA Performed: DENTURE PACKER Indications and Patient Condition Indications for airway [...] none Number of other approaches attempted: 0 * Anesthesia Procedure Notes - CHRISTINA Stringer CRNA - 06/20/2024 9:54 AM ESTAssociated Order(s): Peripheral Block Peripheral Block Time Out: 06/20/2024 9:50 AM Patient location during procedure: pre-op Start time: 06/20/2024 9:50 AM End time: 06/20/2024 9:54 AM Reason for block: at surgeon's request and post-op pain management Staffing Performed: DENTURE PACKER Resident/DENTURE PACKER: CHRISTINA Stringer CRNA Preanesthetic Checklist Completed: patient identified, IV checked, site marked, risks and benefits discussed, surgical consent, monitors and equipment checked, pre-op evaluation and timeout performed Region: Lower Extremities Primary: Femoral Peripheral Block Patient position: supine Patient monitoring: heart rate, quality assurance monitor final and continuous pulse ox O2: Room air [...] - IntraVENous 2 mg - 06/20/2024 9:50:00 AXjfqVRKFPnzymn-ibngxwkoxsl-jsasfymoguc (TAP) syringe - Injection 20 mL - 06/20/2024 9:50:00 AM * Anesthesia Preprocedure Evaluation - CHRISTINA Stringer CRNA - 06/20/2024 9:34 AM EST Patient: Yonathan Fernandez Procedure Information Date/Time: 06/20/24 1000 Procedure: OPEN BIOPSY WITH CURETTAGE AND CEMENT AUGMENTATION RIGHT PROXIMAL TIBIA NEOPLASM, PROPHYLACTIC PLATING RIGHT PROIXIMAL TIBIA (Right: Leg Lower) Location: [facility] OR [facility] Operating Room Surgeons: Joyce Hennessy MD Relevant [...] Requests: Additional Equipment Requests documented in this [facility]01-22-2025 Note* Care Coordination - Francie Gunter - 06/20/2024 12:39 PM EST Return Referral placed to [facility] via [facility]port per TCC request. Await review and response regarding ability to accept. TCC notified. Electronically signed by LUCAS Gunter, 06-20-2024 at 12:41 PM [facility]01-22-2025 Note* Care Coordination - Francie Gunter - 06/20/2024 12:39 PM EST Return Referral placed to [facility] via [facility]port per TCC request. Await review and response regarding ability to accept. TCC notified. Electronically signed by LUCAS Gunter, 06-20-2024 at 12:41 PM [facility]01-22-2025 NoteReturn Referral placed to [facility] via [facility]port per TCC request. Await review and response regarding ability to accept. TCC notified. Electronically signed by LUCAS Gunter, 06-20-2024 at 12:[address] [facility]01-22-2025 Procedure anesthesia Narrative* Procedure Summary Procedure Name Responsible Anesthesiologist Anesthesia Start Time [...] (50 mg/5 mL) prefilled syringe 30 mg qhgDNBGMqqnfv-gcmksuhhsua-vbdjznqrahd (T AP) syringe 20 mL midazolam (Versed) [...] Auscultation, Capnometry; Removal Date: 06/20/24; Removal Time: 1018 06/20/24 1001 by CHRISTINA Harden CRNA 06/20/24 1018 by CHRISTINA Harden CRNA documented in this encounter [id number] Anesthesiology procedure note* Anesthesia Procedure Notes - CHRISTINA Harden CRNA - 06/20/2024 10:15 AM ESTAssociated Order(s): Airway Airway Date/Time: 06/20/2024 10:01 AM Urgency: scheduled Airway not difficult General Information and Staff Patient location during procedure: Procedural Resident/DENTURE PACKER: CHRISTINA Harden CRNA Performed: DENTURE PACKER Indications and Patient Condition Indications for airway [...] none Number of other approaches attempted: 0 [facility]01-22-2025 NoteAirway Date/Time: 06/20/2024 10:01 AM Urgency: scheduled Airway not difficult General Information and Staff Patient location during procedure: Procedural Resident/DENTURE PACKER: CHRISTINA Harden CRNA Performed: DENTURE PACKER Indications and Patient Condition Indications for airway [...] attempts: none Number of other approaches attempted: 0[facility]01-22-2025 Note* Op Note - Joyce Hennessy MD [...] aggressive benign tumor. Surgeon: Joyce Hennessy M.D. Testboard Operator(s): Neville PGY-5, Abdullahi PGY-3 Anesthesia: general EBL: [...] as well as medical complications such as MS, stroke, PE, DVT, and even . Pt [...] Jocelyn Lozada MD at 06/20/24, 12:44 PM [employer] Phone: 1([phone] 540-171701-22-2025 Note* Op Note - Joyce Hennessy MD [...] aggressive benign tumor. Surgeon: Joyce Hennessy M.D. Testboard Operator(s): Neville PGY-5, Abdullahi PGY-3 Anesthesia: general EBL: [...] as well as medical complications such as MS, stroke, PE, DVT, and even . Pt [...] Jocelyn Lozada MD at 06/20/24, 12:44 PM [employer] Phone: 1(549) 217-643601-22-2025 Anesthesiology procedure note* Anesthesia Procedure Notes - CHRISTINA Stringer CRNA - 06/20/2024 9:54 AM EST Associated Order(s): Peripheral Block Peripheral Block Time Out: 06/20/2024 9:50 AM Patient location during procedure: pre-op Start time: 06/20/2024 9:50 AM End time: 06/20/2024 9:54 AM Reason for block: at surgeon's request and post-op pain management Staffing Performed: DENTURE PACKER Resident/DENTURE PACKER: CHRISTINA Stringer CRNA Preanesthetic Checklist Completed: patient identified, IV checked, site marked, risks and benefits discussed, surgical consent, monitors and equipment checked, pre-op evaluation and timeout performed Region: Lower Extremities Primary: Femoral Peripheral Block Patient position: supine Patient monitoring: heart rate, quality assurance monitor final and continuous pulse ox O2: Room air [...] - IntraVENous 2 mg - 06/20/2024 9:50:00 NKvtvVARCRucpjn-wvczuzdioky-gasrzstuqlv (TAP) syringe - Injection 20 mL - 06/20/2024 9:50:00 AM [facility] [employer] Phone: 1(932) 518-119701-22-2025 NotePeripheral Block Time Out: 06/20/2024 9:50 AM Patient location during procedure: pre-op Start time: 06/20/2024 9:50 AM End time: 06/20/2024 9:54 AM Reason for block: at surgeon's request and post-op pain management Staffing Performed: DENTURE PACKER Resident/DENTURE PACKER: CHRISTINA Stringer CRNA Preanesthetic Checklist Completed: patient identified, IV checked, site marked, risks and benefits discussed, surgical consent, monitors and equipment checked, pre-op evaluation and timeout performed Region: Lower Extremities Primary: Femoral Peripheral Block Patient position: supine Patient monitoring: heart rate, quality assurance monitor final and continuous pulse ox O2: Room air [...] - IntraVENous 2 mg - 06/20/2024 9:50:00 VCkcfJEVJSbspjv-icnjtdzyuzu-ycvnhwnsxuw (TAP) syringe - Injection 20 mL - 06/20/2024 9:50:00 [facility]01-22-2025 Anesthesiology Preoperative evaluation and management note* Anesthesia Preprocedure Evaluation - CHRISTINA Stringer CRNA - 06/20/2024 9:34 AM EST Patient: Yonathan Fernandez Procedure Information Date/Time: 06/20/24 1000 Procedure: OPEN BIOPSY WITH CURETTAGE AND CEMENT AUGMENTATION RIGHT PROXIMAL TIBIA NEOPLASM, PROPHYLACTIC PLATING RIGHT PROIXIMAL TIBIA (Right: Leg Lower) Location: [facility] OR [address] [place] [address] Operating Room Surgeons: Joyce Hennessy MD Relevant [...] repol pattern Equipment Requests: Additional Equipment Requests [facility] [id number] NotePatient: Yonathan Fernandez Procedure Information Date/Time: 06/20/24 1000 Procedure: OPEN BIOPSY WITH CURETTAGE AND CEMENT AUGMENTATION RIGHT PROXIMAL TIBIA NEOPLASM, PROPHYLACTIC PLATING RIGHT PROIXIMAL TIBIA (Right: Leg Lower) Location: [address] Operating Room Surgeons: Joyce Hennessy MD [...] early repol pattern Equipment Requests: [facility] NoteHospitalist Progress Note 06/20/2024 Subjective: Admit Date: 06/19/2024 PCP: Jared Forde MD Room#: [id number] BRIEF HOSPITAL COURSE: Yonathan is a 49 y.o. male with a PMH of alcoholic dementia, arthritis, depression, epilepsy, schizoaffective disorder, MS, TIA, PVD, COPD, right proximal tibial lesion [...] Intake/Output Summary (Last 24 hours) at 06/20/2024 08 Last data filed at 06/19/2024 1900 Gross [...] H/O alcoholic dementia Arthritis Depression Epilepsy H/O MS on asa, plavix, statin - does not [...] Emergency Contact: Shanice Coburn Mobile Relation: Mother Benjymason Chaney DO Ale Division of Hospitalist Medicine [facility]01-22-2025 NoteOrthopedic Progress Note Name: Yonathan Fernandez Date:06/20/2024 [...] in case of OR, page ortho pgr [phone] with clearance status Jocelyn Lozada MD Orthopaedic Surgery PGY-5 *[id number]01-21-2025 Plan of care note* Care Plan - Eli Lantigua RN - 06/19/2024 11:22 PM EST Problem: Knowledge Deficit Goal: Patient/family/caregiver demonstrates understanding of disease process, treatment plan, medications, and discharge instructions Outcome: Progressing Problem: Potential for Compromised Skin Integrity Goal: Skin Integrity is Maintained or Improved Outcome: Progressing Goal: Nutritional status is improving Outcome: Progressing [id number] NoteOrthopedic surgery progress note Chart reviewed. Patient with baseline altered mental status and unable to make medical decisions. There were no available familial contacts in chart, therefore, patient's facility ([place], [place]) was contacted for point of contact assistance. Discussed with facility credit and collections representative. Patient has children who are estranged from patient. Patient mother is the primary decision maker for the patient, Shanice Coburn, whose contact information was added to the patient's chart. Per facility credit and collections representative, attempts were made at obtaining patient a legal guardian, as patient qualifies for legal guardianship. However, there is limited supply of guardians in the [facility] where patient resides, and therefore guardianship has not been established. Called and spoke with Shanice, as below, to obtain consent for surgery tomorrow. I had a long discussion with the patient's mother, Shanice Coburn ([phone]) regarding the surgical treatment option of right [...] primary. Please page resident on-call with questions/concerns. [facility]01-21-2025 Consult note* Soledad Sandoval Aaronamish, CRAY FISHING HAND - STEEL FITTER - 06/19/2024 1:28 PM ESTAssociated Order(s): IP CONSULT TO HOSPITALIST Hospital Medicine Consult Patient - Yonathan Fernandez, Age - 49 y.o. - 1975 Room Number - [id number] Consulting - Joyce Hennessy MD Primary Care Physician - Jared Forde MD [facility] # - [id number] Date of Admission - 06/19/2024 9:09 AM Hospital Day - 0 Reason for Consult: Medical Management HISTORY OF PRESENT ILLNESS: Yonathan is a 49 y.o. male with a PMH of alcoholic dementia, arthritis, depression, epilepsy, schizoaffective disorder, MS, TIA, PVD, COPD, right proximal tibial lesion admitted to the hospital by orthofor Right tibia biopsy with curettage, cement augmentation and prophylactic plating on 06/20/24. [facility] for medical management. Pt seen and evaluated sitting in bed. NAD. Reports he is originally from [place] and all previous yair care received there. He denies fever, chills, [...] 386 ms QTC Interval 404 ms P [place] 42 degrees QRS [place] 56 degrees T Wave [place] 26 degrees MI Interval 176 ms Urine Culture: No results [...] H/O alcoholic dementia Arthritis Depression Epilepsy H/O MS on asa, plavix, statin - does not [...] CHRISTINA Catalan CNP Division of Hospitalist Medicine [facility] Cosigned by Collin Ellington MD at 06/21/2024 12:33 PM EST Associated attestation - Collin Ellington MD - 06/21/2024 12:33 PM EST Images from the original note were not included. Hospitalist Progress Note 06/21/2024 [phone]: Please page me ([phone]) for patient care issues. [phone]: Please page [facility] night Hospitalist for any issues. Subjective: Admit Date: 06/19/2024 PCP: Jared Forde MD Room#: [id number] I have evaluated the patient and [...] 06/21/2024 Division of Hospital Medicine Inpatient Medical Services/[facility]: [phone] [facility] Phone: 1(324) 924-539801-21-2025 Consult note* Soledad Silvino Mendez, CRAY FISHING HAND - STEEL FITTER - 06/19/2024 1:28 PM ESTAssociated Order(s): IP CONSULT TO HOSPITALIST Hospital Medicine Consult Patient - Yonathan Fernandez, Age - 49 y.o. - 1975 Room Number - [id number] Consulting - Joyce Hennessy MD Primary Care Physician - Jared Forde MD [facility] # - [id number] Date of Admission - 06/19/2024 9:09 AM Hospital Day - 0 Reason for Consult: Medical Management HISTORY OF PRESENT ILLNESS: Yonathan is a 49 y.o. male with a PMH of alcoholic dementia, arthritis, depression, epilepsy, schizoaffective disorder, MS, TIA, PVD, COPD, right proximal tibial lesion admitted to the hospital by orthofor Right tibia biopsy with curettage, cement augmentation and prophylactic plating on 06/20/24. [facility] for medical management. Pt seen and evaluated sitting in bed. NAD. Reports he is originally from [place] and all previous yair care received there. He denies fever, chills, [...] 386 ms QTC Interval 404 ms P [place] 42 degrees QRS [place] 56 degrees T Wave [place] 26 degrees MI Interval 176 ms Urine Culture: No results [...] H/O alcoholic dementia Arthritis Depression Epilepsy H/O MS on asa, plavix, statin - does not [...] CHRISTINA Catalan CNP Division of Hospitalist Medicine [facility] Cosigned by Collin Ellington MD at 06/21/2024 12:33 PM EST Associated attestation - Collin Ellington MD - 06/21/2024 12:33 PM EST Images from the original note were not included. Hospitalist Progress Note 06/21/2024 [phone]: Please page me ([phone]) for patient care issues. [phone]: Please page [facility] night Hospitalist for any issues. Subjective: Admit Date: 06/19/2024 PCP: Jared Forde MD Room#: [id number] I have evaluated the patient and [...] 06/21/2024 Division of Hospital Medicine Inpatient Medical Services/[facility]: [phone] documented in this [facility]01-21-2025 History and physical note* Jocelyn Lozada MD - 06/19/2024 1:06 PM EST Images from the original note were not included. Ortho H&P Patient: Yonathan Fernandez Date of : 1975 Acct: [id number] PCP: Jared Forde MD Date of Admission: 06/19/2024 Date of Service: Pt seen/examined on 06/19/2024 Chief Complaint: right knee pain, inability to walk History Of Present Illness: This is a 49 y.o. male with PMH significant for epilepsy, Wernicke's encephalopathy, HTN, schizoaffective disorder, MS, TIA, PVD, COPD, depression/anxiety who presents to [...] Historical ProviderMD cholecalciferol (Vitamin D-3) 1.25 MG (53128 UT) capsule Take 50,000 Units by mouth 1 (one) time per week. Historical ProviderMD cholecalciferol (Vitamin D3) 1.25 MG (80177 UT) tablet Take 50,000 Units by mouth 1 (one) time per week. Historical ProviderMD clopidogrel (Plavix) 75 MG tablet Take by mouth daily. Historical Provider divalproex (Depakote) 250 MG EC tablet Take [...] in case of OR, page ortho pgr [phone] with clearance status Jocelyn Lozada MD Orthopaedic Surgery PGY-5 *[phone] Cosigned by Joyce Hennessy MD at 06/20/2024 5:14 PM EST [id number] NoteOrtho H&P Patient: Yonathan Fernandez Date of : 1975 Acct: [id number] PCP: Jared Forde MD Date of Admission: 06/19/2024 Date of Service: Pt seen/examined on 06/19/2024 Chief Complaint: right knee pain, inability to walk History Of Present Illness: This is a 49 y.o. male with PMH significant for epilepsy, Wernicke's encephalopathy, HTN, schizoaffective disorder, MS, TIA, PVD, COPD, depression/anxiety who presents to [...] Historical Provider, cholecalciferol (Vitamin D-3) 1.25 MG (70795 UT) capsule Take 50,000 Units by mouth 1 (one) time per week. Historical ProviderMD cholecalciferol (Vitamin D3) 1.25 MG (70937 UT) tablet Take 50,000 Units by mouth [...] Violence: Not At Risk (more content not included)...[facility]01-21-2025 History and physical note* Jocelyn Lozada MD - 06/19/2024 1:06 PM EST Images from the original note were not included. Ortho H&P Patient: Yonathan Fernandez Date of : 1975 Acct: [id number] PCP: Jared Forde MD Date of Admission: 06/19/2024 Date of Service: Pt seen/examined on 06/19/2024 Chief Complaint: right knee pain, inability to walk History Of Present Illness: This is a 49 y.o. male with PMH significant for epilepsy, Wernicke's encephalopathy, HTN, schizoaffective disorder, MS, TIA, PVD, COPD, depression/anxiety who presents to [...] Historical Provider, cholecalciferol (Vitamin D-3) 1.25 MG (96241 UT) capsule Take 50,000 Units by mouth 1 (one) time per week. Historical Provider, cholecalciferol (Vitamin D3) 1.25 MG (07228 UT) tablet Take 50,000 Units by mouth [...] curettage, cement augmentation and prophylactic plating 06/20 -[email or web address]@ID -Clearance/optimization pending -Med consult p -Consent p -Added -Labs -Ice -NWB RLE -Admit to Ortho -Pain control and medical management per medicine/APS -Please hold DVT prophylaxis in anticipation of OR -Please comment on clearance in case of OR, page ortho pgr [phone] with clearance status Jocelyn Lozada MD Orthopaedic Surgery PGY-5 *[phone] Cosigned by Joyce Hennessy MD at 06/20/2024 5:14 PM EST documented in this [facility]01-21-2025 History of Present illness Narrative* Joyce Hennessy MD - 06/19/2024 8:30 AM EST [facility] - [address] [place] [id number] Dept: [phone] Dept No chief complaint on file. SUBJECTIVE HPI This is a 49yo male with PMH significant for epilepsy, Wernicke's encephalopathy, HTN, schizoaffective disorder, MS, TIA, PVD, COPD, depression/anxiety who presents to [...] (HCC) Arthritis Bone lesion right tibia Convulsions ([facility]) Depression Encephalopathy Epilepsy (HCC) Myocardial infarct, old [...] Daily Jocelyn Lozada MD 80 mg at 06/19/24 203 ceFAZolin in dextrose 4% (Ancef) IVPB 2,000 [...] Jocelyn Lozada MD 300 mg at 06/19/24 2034 HYDROmorphone (Dilaudid) injection 0.25 mg 0.25 mg [...] PRN Jocelyn Lozada MD 10 mg at06/20/24 2040 polyethylene glycol (PEG) 3350 (Miralax) packet 17 [...] will WBAT. Patient will be admitted to [facility] today. He will return to clinic in 2-3 weeks post-operatively. No follow-ups on file. Voice recognition was used for portions of this note and although it was reviewed prior to signing some incorrect words or phrases could be present. Electronically signedby Joyce Hennessy MD on 06/20/2024 at 9:08 PM documented in this [facility]02-24-2022 Miscellaneous Notes* Nursing - Anahy Gomez RN - 07/23/2021 1:14 AM EST Accessing chart to look at dosage of librium. * Nursing - Divine Franklin RN - 07/04/2021 9:35 PM EST Community ambulance here to tile picker the patient at this time. * Renata - Leeanne Sifuentes RN - 07/04/2021 6:28 PM EST Disclosure Reporting Form Page 1 of this form is to be used for reporting applicable disclosures to fulfill our obligation tomaintain a record of disclosures made of protected health information about our patients. This formwill be automatically faxed to the Lead Level Designer of Health Information Management Department. You may also forward the completed form to the Lead Level Designer of Health Information Management Department via interoffice mail (HIM offsite). 1. Patient Information Yonathan Fernandez 1975 Name of patient whose information was disclosed Patient's date of [address] [facility] [id number] Patient's address Patient's medical record number and / or account number 2. Destination of the Disclosure Ambulance Service: [facility] Ambulance service [address] [place] [phone] and (external) [id number] (internal) 07/04/2021 Disclosure made to, Address and [...] Other: 5. Employee Information Leeanne Sifuentes RN [facility]) [phone] Employee Signature with credentials Department/Danese/Office Telephone Number [facility] AMBULANCE TRANSFER FORM Provide to ambulance for continuity of care during transport. Patient Name:Yonathan Tai Slick D.O.B: 1975 Code Status: Full Code Medical Diagnosis: [...] Ataxia Alcohol abuse Coronary artery disease involving [place] coronary artery of [place] heart with angina pectoris (HCC) Elevated lipase [...] 875 mg Oral 2 times per day nAgela Denson MD 875 mg at 07/04/21 181 aspirin chewable tablet 81 mg 81 mg [...] Angela Denson MD 5 mg at 07/04/21 1518 clopidogrel (PLAVIX) tablet 75 mg 75 mg Oral Daily David Zaldivar MD 75 mg at 07/04/21 0907 dextrose 5% solution Intravenous Continuous PRN Joseph Guerrero MD dextrose 5% solution Intravenous Continuous PRN Joseph Guerrero MD folic acid (FOLVITE) tablet 400 mcg 400 mcg Oral Daily Jamison Kidd MD 400 mcg at 07/04/21 0908 For electrolyte abnormalities subsequent to initial labs (refer to the [facility] Electrolyte Replacement Orders) 1 each 1 each Other Daily PRN Joseph Guerrero MD heparin (porcine) injection 5,000 Units 5,000 Units Subcutaneous 2 times per day David Zaldivar MD 5,000 Units at 07/04/21 181 hydrALAZINE (APRESOLINE) injection 10 mg 10 mg Intravenous Q6H PRN Clarence Partida MD 10 mg at 06/26/21 182 hydrOXYzine (ATARAX) tablet 50 mg 50 mg Oral Q6H PRN Arjun Leon NP 50 mg at 07/03/21 203 lactated ringers infusion Intravenous Continuous Jamison Kidd MD 100 mL/hr at 07/03/21 1727 New Bag at 07/03/21 1727 levETIRAcetam (KEPPRA) tablet 750 mg 750 mg Oral 2 times per day Jamison Kidd MD 750 mg at 07/04/21 181 lisinopril (PRINIVIL,ZESTRIL) tablet 20 mg 20 mg Oral Daily before lunch Arjun Leon NP 20 mg at 07/04/21 151 LORazepam (ATIVAN) tablet 2-4 mg 2-4 mg Oral Q1H PRN Joseph Guerrero MD Or LORazepam injection 2-4 mg 2-4 mg Intramuscular Q1H PRN Joseph Guerrero MD Or LORazepam injection 2-4 mg 2-4 mg IV Push Q1H PRJoseph Cervantes MD 2 mg at 07/03/21 2216 Magnesium Oxide (MAG-OX) tablet 400 mg 400 mg Oral Daily Arjun Leon NP 400 mg at 07/04/21 09 Metoprolol Tartrate (LOPRESSOR) tablet 25 mg 25 mg Oral 2x Daily Arjun Leon NP 25 mg at 07/04/21 1817 nicotine (NICODERM CQ) 21 MG/24HR 1 patch 21 mg Transdermal Daily David Zaldivar MD 1 patch at 07/04/21 0923 nicotine polacrilex (COMMIT) lozenge 4 mg 4 mg Oral PRN David Zaldivar MD ondansetron hcl (ZOFRAN) injection 4 mg 4 mg IV Push Q6H PRN David Zaldivar MD pantoprazole (PROTONIX) EC tablet 40 mg 40 mg Oral QPM BEFORE DINNER Jamison Kidd MD 40 mg at07/04/21 181 polyethylene glycol 3350 (GLYCOLAX, MIRALAX) packet 17 g 17 g Oral 2x Daily Jamison Kidd MD 17 g at 07/03/21 172 Protein pudding supplement 4 oz 4 oz Oral 3x Daily (dietary) Kolton Ashby RD,LD 4 oz at 518 senna-docusate (PERICOLACE) 8.6-50 MG per tablet 1 tablet 1 tablet Oral 2x Daily David Zaldivar MD 1 tablet at 07/04/211816 thera vitamin tablet 1 tablet 1 tablet Oral Daily Joseph Guerrero MD 1 tablet at 07/04/21 0907 Thiamine Mononitrate (VITAMIN B-1) tablet 100 mg 100 mg Oral Daily Jamison Kidd MD 100 mg at 07/04/21 0907 Employee Information Leeanne Sifuentes RN [facility]) [phone] Employee Signature with credentials Department/Danese/Office Telephone Number CONFIDENTIALITY NOTICE: The information contained on this sheet is privileged and confidential and is intended for the use of the ambulance staff during transport of the patient. Any disclosure, dissemination, distribution, copying or other use of the information is prohibited. * Nursing - Leeanne Sifuentes RN - 07/04/2021 4:54 PM EST NANI to tile picker pt for transport at approx 2100 tonight. * Nursing - Leeanne Sifuentes RN - 07/04/2021 4:45 PM EST Attempted to call report to [facility], nursing staff unavailable. Message left to return call for report. * Nursing - Leeanne Sifuentes RN - 07/04/2021 2:[address] Chan notified of pt being unable to void and bladder scan completed. Order given to place griffin and have pt follow up with Urology after discharge. * D/C Planning - Celia Eldridge BSW - 07/04/2021 11:56 AM EST Plans completed for pt to transfer to the [facility] today. Spoke with Gina at the [facility] ([phone]). She said they have adm info on him. PASRR completed. Documents being placed by Roselia ROJAS in [place] transferpacket and copy on hard chart. Spoke [...] updated today. * Rehab Therapies - Amilcar [id number], MALI Polanco-WEATHER STRIP INSTALLER - 07/03/2021 12:52 PM EST Name: Yonathan Fernandez CAT: [id number] Dysphagia tx completed. Impressions: No significant changes in status this date. Pt was resting in bed upon WEATHER STRIP INSTALLER arrival andwas appropriate for therapy. Per MST, pt had questionable cough when eating oatmeal this AM, therefore WEATHER STRIP INSTALLER reassessed tolerance of solids. WEATHER STRIP INSTALLER provided cup of applesauce and observed as pt fed himself. Oropharyngeal swallow was WFL and no overt sx of aspiration were noted. Laryngeal/pharyngeal strengthening exercises were then attempted but pt wanted to rest. Session ended s/t same. Recommendations: WEATHER STRIP INSTALLER to recommend soft and bite-sized diet, thin [...] Discharge Recommendations 24 hour care;Further Post-Acute Intensive WEATHER STRIP INSTALLER Services 3-5x/wk Comments (SOAP note) Dysphagia tx completed. No significant changes in status this date. Pt was resting in bed upon WEATHER STRIP INSTALLER arrival and was appropriate for therapy. Per MST, pt had questionable cough when eating oatmeal this AM, therefore WEATHER STRIP INSTALLER reassessed tolerance of solids. WEATHER STRIP INSTALLER provided cup of applesauce and observed as pt fed himself. Oropharyngeal swallow was WFL and no overt sx of aspiration were noted. Laryngeal/pharyngeal strengthening exercises were then attempted but pt wanted to rest. WEATHER STRIP INSTALLER Procedure Charges Swallowing/Dysphagia Treatment < 1 hour Time Calculation Start Time 1025 Stop Time 1040 Time Calculation 15 Speech Education Education No family available * D/C Planning - Ciara Frey RN - 07/03/2021 11:00 AM EST CM spoke with Nmarata at [facility] [phone]. Namrata states that the patient is good for discharge on their end she only asks that the CM notify her when he is due to be discharged. CM phoned physician. He is anticipating discharge in 1-2 days. Namrata notified of the same. She will notify Serrano. We will not need to wait on [...] she needs him to go to a assisted in [place] because she is disabled and will not be able to visit outside of [place]. * Nursing - Lakshmi Newton RN - [...] ativan. * D/C Planning - Anahy [employer] Production Control Analyst - 07/02/2021 2:32 PM EST Spoke with Namrata guidry [facility] and pt has been clinically accepted for admission, they will hold a bed for pt. CM needs to keep them update on dc date at [phone]. * D/C Planning - Anahy [employer] Social Worker - 07/02/2021 2:10 PM EST Lilo from [employer] voiced that pt is a denial for their [place] facilities. * D/C Planning - Anahy [employer] Production Control Analyst - 07/02/2021 1:56 PM EST Called Lilo with [facility], NA. * D/C Planning - Anahy [employer] Production Control Analyst - 07/02/2021 1:14 PM EST Attempted to call pts Mother to discuss dcp and that no place in [place] has accepted pt for admand that I [...] time * D/C Planning - Anahy Avitia Social Worker - 07/02/2021 11:51 AM EST 10:18 am phoned Gianfranco khalil Yair EMERSON. 11:48 am phoned gianfranco khalil [place] EMERSON Then sent ref to [facility]. Phoned ref, NA, LM requesting a return call. * Rehab Therapies - Sherri Iraheta CCC-WEATHER STRIP INSTALLER - 07/02/2021 11:09 AM EST Name: Yonathan Fernandez CAT: [id number] Dysphagia tx attempted. Pt is currently having increased withdrawal sx and is significantly more confused than previous date. ST entered room to work with pt, and he was speaking incoherently. Per RN, pt spit at her earlierthis date and has been agitated. S/t same and observations, WEATHER STRIP INSTALLER did not try exercises or trials. Will [...] follow as appropriate. * Nursing - Lakshmi Newton, ERIK - 07/02/2021 8:30 AM EST Pt very [...] monitor. * D/C Planning - Anahy Avitia Production Control Analyst - 07/01/2021 4:09 PM EST [facility] declined pt for admission. Ref sent to [facility]. * Plan of Care - Kolton Ashby RD,LD - 07/01/2021 2:43 PM EST Medical Nutrition [...] two visits and sitting in side chair. Chaitanyaing student on unit, she needed to feed [...] Estimated Energy Needs Total Energy Estimated Needs: 9141-7380 kcal Method for Estimating Needs: 25-30 kcal/kg [...] subsequent to initial labs (refer to the [facility] Electrolyte Replacement Orders) 1 each heparin [...] Color (WDL): Within Defined Limits Skin Color: [place] Skin Integrity (WDL): Within Defined Limits Impaired skin integrity: See LDA Skin Checked Under Oxygen Device: Intact Skin Condition (WDL): Exceptions to WDL Skin Condition: Abrasion, Bruising Location: Scattered Orientation: Right, Left Multiple Sites: 2 Wounds/NPWT Active Wound / Wound Therapy Name Placement date Placement time Site Days Wound 06/24/21 Skin Tear Buttocks Medial 06/24/212154 Buttocks 6 Peripheral Vascular Peripheral Vascular (WDL): Within Defined Limits R Temporal Pulse: Moderate L Temporal Pulse: Moderate Anti-Embolism Devices: Bilateral lower extremity SCDs Bilateral LE SCDs: On Edema: None noted Facial: Mild pitting, slight indentation * Rehab Therapies - Amilcar [id number], MALI Polanco-WEATHER STRIP INSTALLER - 07/01/2021 11:09 AM EST Name: Yonathan Fernandez CAT: [id number] Dysphagia tx completed. Impressions: No significant changes in status this date. Pt was alert and appropriate for tx when WEATHER STRIP INSTALLER arrived for session. Pt's breakfast tray was [...] or concerns at end of session. Recommendations: WEATHER STRIP INSTALLER to recommend soft and bite-sized diet, thin liquids, meds as tolerated or whole/crushed in pudding, upright for all PO intake, alternate small bites/small sips, and oral care following meals. Will continue tx per POC, with further post-acute intensive ST services 3-5x/wk at d/c. RN aware of recommendations. Thank you! 07/01/21904 Physician Order Physician Order Swallowing Swallowing Current [...] Discharge Recommendations 24 hour care;Further Post-Acute Intensive WEATHER STRIP INSTALLER Services 3-5x/wk Comments (SOAP note) Dysphagia tx completed. No significant changes in status this date. Pt was alert and appropriate for tx when WEATHER STRIP INSTALLER arrived for session. Pt's breakfast tray was [...] tolerance with no overt sx of aspiration. WEATHER STRIP INSTALLER discussed plan to continue therapy,and pt had no questions or concerns. WEATHER STRIP INSTALLER Procedure Charges Swallowing/Dysphagia Treatment < 1 hour Time Calculation Start Time 904 Stop Time 50 Time Calculation 45 Speech Education Education No family available * Rehab Therapies - Miranda Calixto PT, DPT - 07/01/2021 10:45 AM EST [...] to acute care secondary to EtOH withdrawal. [facility] as/medical chart. Patient reports of L hip [...] sure about accuracy. Prior Function Level of [place]: Independent with ADLs;Independent with functional mobility;Independent with [...] of patient status Signature: Miranda Calixto PT, DPEliseo July 01, 2021 * Nursing - Yandy [...] Medial Wound Outcome: Healed Site Assessment/Wound Bed [place] Nita-Wound Assessment Blanchable erythema Margins Defined edges [...] lateral leg ET will follow * D/C Planning - Anahy Avitia Social Worker - 06/30/2021 4:15 PM EST Referrals sent to all [facility] and [facility] [place]. Per Sury pt is a denial at all [facility]. * D/C Planning - Anahy Avitia Social Worker - 06/30/2021 [...] Would like it to be one in [place]. * Nursing - Nelly Bellamy RN - 06/30/2021 1:08 PM EST Mother Shanice called and given update on pt. All questions answered. * Rehab Therapies - Yunior [id number], MALI Shelby-WEATHER STRIP INSTALLER - 06/30/2021 11:18 AM EST Name: Yonathan Fernandez CAT: [id number] Attempted dysphagia therapy this date. Per RN, patient continues to have periods of drowsiness and when awake, can be agitated. He did accept PO medication well earlier crushed in puree solid and atesome of his breakfast with tolerance. When WEATHER STRIP INSTALLER attempted to complete session, patient was receivingcare from staff. Diet order was modified this date to represent recent recommendations. Suspect soft and bite size solids and thin liquids, no straw is most appropriate diet for patient at this time due to reported status and observations during session yesterday. Will continue to follow patient per POC. Thank you! * Rehab Therapies - Monse Frank PT - 06/30/2021 10:08 AM EST Name: Yonathan Fernandez CAT: [id number] 06/30/21 1008 PT Initial Evaluation Unable to [...] Otherwise, PT staff will FU 07-01-21. * Gina Hicks RN - 06/29/2021 9:00 PM EST Pt's mother called in for updates. She did have the pt's code number. I updated her with his interactions with me and MRI Info updated. * Gina Hicks RN - 06/29/2021 8:30 PM EST Pt [...] to work! * Rehab Therapies - Yunior [id number], MALI Shelby-WEATHER STRIP INSTALLER - 06/29/2021 4:00 PM EST Name: Yonathan Fernandez CAT: [id number] Dysphagia therapy completed Impressions: Swallowing therapy completed. Per notes, patient has decline in status this date in regards to hs level of alertness. ABGs slightly abnormal and MRI was ordered. Patient not awake enough to accept POintake or medication until this afternoon. When WEATHER STRIP INSTALLER entered room, patient appeared lethargic but eyes were open and was on room air. Sitter and student RN present. Face was wiped off to prompt patient to become more awake. During session, WEATHER STRIP INSTALLER observed patient have PO medication given by student RN one pill at a time whole in puree solid. Patient did chew some pills up due to poor awareness but was able to swallow each one. WEATHER STRIP INSTALLER gave patient thin liquids via cup, puree [...] care Comments (SOAP note) Dysphagia therapy completed WEATHER STRIP INSTALLER Procedure Charges Swallowing/Dysphagia Treatment < 1 hour [...] attempt the diet. * Rehab Therapies - Shaun [id number], Monse, PT - 06/29/2021 1:06 PM EST Name: Yonathan Fernandez CAT: [id number] 06/29/21 1306 PT Initial Evaluation Unable to [...] Estimated Energy Needs Total Energy Estimated Needs: 3072-4469 kcal Method for Estimating Needs: 25-30 kcal/kg [...] 114 (H) 06/28/2021 1213 BUN 4 (L) 06/29/2021 0321 CREATININE 0.41 (L) 06/29/2021 0321 K 3.9 06/29/2021 0321 PHOS 3.9 06/29/2021 0321 MG 2.0 06/29/2021 0321 NA 135 06/29/2021 0321 HGB 10.2 (L) 06/29/2021 0321 GFR >60 06/29/2021 0321 Medications: Current Facility-Administered Medications Medication acetaminophen (TYLENOL) [...] subsequent to initial labs (refer to the [facility] Electrolyte Replacement Orders) 1 each heparin [...] Facial Facial: Mild pitting, slight indentation * Renata - Denisse Galvan RN - 06/29/2021 10:38 AM EST Mom answers MRI questions. * Denisse Harris RN - 06/29/2021 9:14 AM EST Too drowsy to take pills or eat, will try when more alert. * Denisse Harris RN - 06/29/2021 8:15 AM EST Pt [...] time. Will continue to monitor * Gina Hicks, RN - 06/28/2021 9:25 PM EST Assessment [...] to sleep quickly. Will attempt to re-apply monitor technician a little later. Sitter in room. To lethargic to give po medications at this time. will continue To monitor. * Nursing - Gina Chester RN - 06/28/2021 8:00 PM EST Pt [...] Pt verbally and physically aggressive toward staff. [place] police called and assisted with getting pt [...] * Rehab Therapies - Luann Esteban 8726, [facility]-WEATHER STRIP INSTALLER - 06/28/2021 12:53 PM EST Name: Yonathan Fernandez CAT: [id number] Bedside swallow re-evaluation completed per plan. Impressions: [...] acute ST at d/c. Referral appreciated. 06/28/21 0993 Physician Order Physician Order Swallowing Swallowing Current [...] Discharge Recommendations 24 hour care;Further Post-Acute Intensive WEATHER STRIP INSTALLER Services 3-5x/wk Comments (SOAP note) Dysphagia [place] [facility] swallow reassessment completed per plan. The patient has a 1:1 at bedside upon WEATHER STRIP INSTALLER arrival. He is awake and alert and [...] via straw. Plan of Care Frequency 3x/week WEATHER STRIP INSTALLER Procedure Charges Swallowing/Dysphagia Treatment < 1 hour Time Calculation Start Time 0955 Stop Time 1015 Time Calculation 20 Speech Education Education No family available * Rehab Therapies - Luann Esteban 87Pia, MALI-WEATHER STRIP INSTALLER - 06/28/2021 10:08 AM EST Name: Yonathan Fernandez CAT: [id number] Bedside swallow re-evaluation completed per plan. Impressions: [...] is accompanied by transport staff x2. * Teagan Pike RN - 06/27/2021 4:25 PM EST CVC removed. Mother updated, given new room number. Transferred to 4133 via bed with transport staff. * Rehab Therapies - David Rivero, PT - 06/27/2021 2:46 PM EST PT orders received and acknowledged. * Teagan Pike RN - 06/27/2021 1:07 PM EST Patient awake, turning onto side on own. Denies any pain. Will attempt to intermittently answer questions, follows commands inconsistently. 1303 ~ Finger stick blood sugar 70. 1307 ~ Repeat blood sugar 73, drawn from CVC. Will continue to monitor. * Rehab Therapies - Luann Esteban 8726, [facility]-WEATHER STRIP INSTALLER - 06/27/2021 12:48 PM EST Name: Yonathan Fernandez CAT: [id number] Bedside swallow evaluation completed. The patient is [...] Pain Reported Discharge Recommendations Further Post-Acute Intensive WEATHER STRIP INSTALLER Services 3-5x/wk Comments (SOAP note) Initial dysphagia evaluation Plan of Care Skilled Services Required Yes Type of Treatment Dysphagia Therapy Dysphagia Therapy Therapeutic Trial Upgrades Frequency 5x/week Duration 2 weeks Prognosis Fair WEATHER STRIP INSTALLER Procedure Charges Swallowing/Dysphagia Evaluation 1 Procedure Time [...] on. * Rehab Therapies - Luann Esteban CCC-SLP - 06/27/2021 10:40 AM EST Name: Yonathan Fernandez CAT: [id number] Bedside swallow evaluation completed. Full report to [...] and pressure ulcer or non- healing wound TECHNICAL SME Consult to assess Subjective: Received TECHNICAL SME consult to assess patient. Received nutrition screen [...] Estimated Energy Needs Total Energy Estimated Needs: 0394-0950 kcal Method for Estimating Needs: 25-30 kcal/kg [...] (H) 06/27/2021 0751 BUN 5 (L) 06/27/2021 0450 CREATININE 0.41 (L) 06/27/2021 0450 K 4.6 06/27/2021 0450 PHOS 2.1 (L) 06/27/2021 0450 MG 1.6 06/27/2021 0450 NA 140 06/27/2021 0450 HGB 9.9 (L) 06/27/2021 0450 GFR >60 06/27/2021 0450 Medications: Current Facility-Administered Medications Medication acetaminophen [...] subsequent to initial labs (refer to the [facility] Electrolyte Replacement Orders) 1 each heparin [...] Integumentary Skin Color (WDL): Unchanged Skin Color: [place] Skin Integrity (WDL): Exceptions to WDL Impaired skin integrity: See LDA Skin Checked Under Oxygen Device: Intact Skin Condition (WDL): Exceptions to WDL Skin Condition: Erythema (blanching) Location: Heel, Elbow Orientation: Right, Left Multiple Sites: 2 Wounds/NPWT Active Wound / Wound Therapy Name Placement date Placement time Site Days Wound 06/24/21 Skin Tear Buttocks Medial 06/24/21 2155 Buttocks 2 Peripheral Vascular Anti-Embolism Devices: Bilateral lower extremity SCDs Bilateral LE SCDs: On Edema: None noted * Nursing - Teagan Gilmore RN - 06/27/2021 7:51 AM EST At [...] very much in favor of that. * Autumn Leal RN - 06/26/2021 3:12 PM EST Pts [...] Able to lift head off bed. Instructed b2b sales professional light use. Instructed to not get out [...] notified. * Plan of Care - Francesca Carranza RD,LD - 06/26/2021 10:49 AM EST Medical Nutrition [...] Estimated Energy Needs Total Energy Estimated Needs: 6134-8477 kcal Method for Estimating Needs: 25-30 kcal/kg 54.7 kg Metabolics 06/26: 952 kcal Estimated Protein Needs Total Protein Estimated Needs: 66-109 g Method for Estimating Needs: 1.2-2 g/kg 54.7 kg Diet Orders: Diet Orders (From admission, onward) Start Ordered 06/24/21 185 Diet NPO effective now DIET EFFECTIVE NOW 06/24/21 185 DIETARY SUPPLEMENT/TUBE FEED ORDERS (From admission, onward) [...] 3.5 (L) 06/26/2021 0644 PHOS 3.3 06/26/2021 0450 MG 2.2 06/26/2021 0450 NA 143 06/26/2021 0450 HGB 8.7 (L) 06/26/2021 0450 GFR >60 06/26/2021 0450 Medications: Current Facility-Administered [...] subsequent to initial labs (refer to the [facility] Electrolyte Replacement Orders) 1 each heparin [...] Color (WDL): Within Defined Limits Skin Color: [place] Skin Integrity (WDL): Exceptions to WDL Impaired [...] None noted * Pharmacy Note - Niles Au PharmD - 06/26/2021 9:36 AM EST Clinical Pharmacy [...] you, Niles Au PharmD, BCPS, BCCCP * Nursing - Autumn [place] RN - 06/25/2021 6:46 PM EST Update given to pts mother, all questions answered. * Nursing - Autumn [place] RN - 06/25/2021 3:10 PM EST Verbal order from Dr. Laney Patel to discontinue Q6 lactate. Will carry out. * D/C Planning - Marla Gunderson RN - 06/25/2021 12:13 PM EST CM Initial Discharge Planning Yonathan Fernandez 1975 Met with Family at Other [...] From: Chart (mother) Family contact name: Shanice [phone] Relationship to patient: Mother Family Contact Number: Shanice [phone] Living Arrangements: Parent Capacity for Self-Care of [...] his plan of care.The patient or his credit and collections representative (as allowed under State law) has [...] Orientation: Medial Wound Image Site Assessment/Wound Bed [place] Nita-Wound Assessment Blanchable erythema;[place] Margins Defined edges Wound Length (cm) 1.2 [...] you! * Plan of Care - Francesca Carranza, BRAD,LD - 06/25/2021 9:26 AM EST Medical Nutrition [...] Estimated Energy Needs Total Energy Estimated Needs: 0309-2270 kcal Method for Estimating Needs: 25-30 kcal/kg [...] subsequent to initial labs (refer to the [facility] Electrolyte Replacement Orders) heparin (porcine) injection [...] SPO2 100%. Will continue to monitor. * Interdisciplinary - Sherman Soares RRT - 06/25/2021 12:30 [...] Labs: Serum creatinine: 0.61 mg/dL (L) 06/24/21 1753 Estimated creatinine clearance: 124 mL/min (A) Recent Labs Lab 06/24/21 17506/24/21 1750 WHITEBLOODCE -- 16.1* CREATININE 0.61* -- BUN 17 -- Vancomycin level: No results for input(s): VANCOTROUGH, TRICIANDOM in the last 168 hours. Micro:covid negative [...] Will continue to monitor. documented in this [facility]02-05-2022 Hospital course Narrative* Sky Chan MD - 07/04/2021 11:22 AM EST [facility] / [facility] Discharge Summary Yonathan Fernandez Account: [id number] Admitted: 06/24/2021 Discharge Date/Time: 07/04/21 / 11:22 AM Handoff to PCP 1. Follow-up primary care physician per [facility] facility Clinical Summary Yonathan Fernandez is a 46 y.o. male with a history of alcohol abuse with history of withdrawal seizures, CAD who presented to [facility] 06/24/2021 after being found by [...] statin therapy, continued. Neurology consulted,Dr. Garcia following. WEATHER STRIP INSTALLER following. 5. Transaminitis: Secondary to chronic alcohol [...] PRN Atarax 12. Code Status: Full Disposition: long term facility July 04, 2021 Discharge Medications Medication [...] as: KERRI Physician(s) Family: Hayden Herrera APRN STEEL FITTER, , Address: [facility] [address] [facility] [address] Follow Up: No follow-up provider specified. Future Appointments Date Time Provider Department Center 08/25/2021 2:15 PM Hayden Herrera APRN STEEL FITTER [facility] [place] [place] P ADULT [facility] For more detailed information including patient medical records, please contact [phone] or go to [email or web address] Patient instructions, including activity, were given to [...] on 07/04/21, 11:22 AM documented in this [facility]02-04-2022 History of Present illness Narrative* Angela Denson MD - 07/03/2021 7:31 AM EST [facility] Medicine / [facility] Inpatient Progress Note 07/03/2021 Yonathan Nunezell 1975 [id number] Assessment/Plan: Yonathan Fernandez is a 46 y.o. male with a history of alcohol abuse with history of withdrawal seizures, CAD who presented to [facility] 06/24/2021 after being found by [...] statin therapy, continued. Neurology consulted,Dr. Garcia following. WEATHER STRIP INSTALLER following. 5. Transaminitis: Secondary to chronic alcohol [...] PHOS 4.0 4.2 3.4 Recent Labs Lab 07/03/21 0559 07/02/21 0714 07/01/21 0754 ALT 64* 66* 72* AST 74* 80* 95* ALKPHOS 159* 149* 151* BILITOT 0.9 0.9 0.9 No results for input(s): INR in the last 168 hours. * Angela Denson MD - 07/02/2021 7:12 AM EST [facility] / [facility] Inpatient Progress Note 07/02/2021 Yonathan Fernandez 1975 [id number] Assessment/Plan: Yonathan Fernandez is a 46 y.o. male with a history of alcohol abuse with history of withdrawal seizures, CAD who presented to [facility] 06/24/2021 after being found by [...] folic acid, thiamine, multivitamin, and supportive care. client services representative consulted, information regarding rehabilitation after [...] statin therapy, continued. Neurology consulted,Dr. Garcia following. WEATHER STRIP INSTALLER following. 5. Transaminitis: Secondary to chronic alcohol [...] Denson MD - 07/01/2021 7:15 AM EST [facility] 07/01/2021 Yonathan Fernandez 1975 [id number] Assessment/Plan: Yonathan Fernandez is a 46 y.o. male with a history of alcohol abuse with history of withdrawal seizures, CAD who presented to [facility] 06/24/2021 after being found by [...] folic acid, thiamine, multivitamin, and supportive care. client services representative consulted, information regarding rehabilitation after [...] reviewed: Recent Labs Lab 06/30/21 0629 06/29/21 03206/28/21 0510 HGB 10.4* 10.2* 10.2* HCT 31.4* 31.3* 30.7* PLT 150.0 142.0* 150.0 Recent Labs Lab 06/30/21 0629 06/29/21 03206/28/21 0510 NA 133* 135 133* K 3.4* 3.9 3.4* CL 105 105 104 BUN 3* 4* 3* CREATININE 0.40* 0.41* 0.39* CALCIUM 8.3* 8.5 8.0* LABALBU 2.9* 3.2* 3.0* PHOS 3.8 3.9 2.7 Recent Labs Lab 06/30/21 0606/29/21 03206/28/21 0510 ALT 78* 76* 59* AST 119* 95* 69* ALKPHOS 149* 149* 136* BILITOT 1.1 1.5 1.7* No results for input(s): INR in the last 168 hours. * Jamison Kidd MD - 06/30/2021 12:46 PM EST [facility] / [facility] Inpatient Progress Note 06/30/2021 Yonathan Tai Slick 1975 [id number] Assessment/Plan: Yonathan Fernandez is a 46 y.o. male with a history of alcohol abuse with history of withdrawal seizures, CAD who presented to [facility] 06/24/2021 after being found by [...] folic acid, thiamine, multivitamin, and supportive care. client services representative consulted, information regarding rehabilitation after [...] Imaging and Studies reviewed: Recent Labs Lab 06/30/2162806/29/21 03206/28/21 0510 HGB 10.4* 10.2* 10.2* HCT 31.4* 31.3* 30.7* PLT 150.0 142.0* 150.0 Recent Labs Lab 06/30/21 0606/29/21 03206/28/21 0510 NA 133* 135 133* K 3.4* 3.9 3.4* CL 105 105 104 BUN 3* 4* 3* CREATININE 0.40* 0.41* 0.39* CALCIUM 8.3* 8.5 8.0* LABALBU 2.9* 3.2* 3.0* PHOS 3.8 3.9 2.7 Recent Labs Lab 06/30/21 0606/29/21 03206/28/21 0510 ALT 78* 76* 59* AST 119* 95* 69* ALKPHOS 149* 149* 136* BILITOT 1.1 1.5 1.7* No results for input(s): INR in the last 168 hours. * Jamison Kidd MD - 06/29/2021 9:56 AM EST [facility] / [facility] Inpatient Progress Note 06/29/2021 Yonathan Fernandez 1975 [id number] Assessment/Plan: Yonathan Fernandez is a 46 y.o. male with a history of alcohol abuse with history of withdrawal seizures, CAD who presented to [facility] 06/24/2021 after being found by [...] folic acid, thiamine, multivitamin, and supportive care. client services representative consulted for alcohol audit, information [...] Imaging and Studies reviewed: Recent Labs Lab 06/29/21 0321 06/28/21 0510 06/27/21 0450 HGB 10.2* 10.2* 9.9* HCT 31.3* 30.7* 29.5* PLT 142.0* 150.0 141.0* Recent Labs Lab 06/29/21 0321 06/28/21 0510 06/27/21 0450 06/25/21 2347 06/25/21 1815 [...] this interval not displayed. Recent Labs Lab 06/29/21 03206/28/21 0510 06/25/21 1815 ALT 76* 59* 67* AST 95* 69* 103* ALKPHOS 149* 136* 85 BILITOT 1.5 1.7* 1.6 No results for input(s): INR in the last 168 hours. * Jamison Kidd MD - 06/28/2021 11:47 AM EST [facility] / [facility] Inpatient Progress Note 06/28/2021 Yonathan Fernandez 1975 [id number] Assessment/Plan: Yonathan Zaire Fernandez is a 46 y.o. male with a history of alcohol abuse with history of withdrawal seizures, CAD who presented to [facility] 06/24/2021 after being found by his mother seizing secondary to alcohol withdrawal. Admitted to heroin use requiring Narcan. In the ED, patient noted to be hypothermic (85.7) and was intubated for airway protection. The patient was admitted to the CCU and administered ATBs, Keppra, and supportive care. Extubated on 06/26/2021 [facility]. 1. Seizure secondary to acute alcohol withdrawal: Keppra continued while withdrawing. Seizure precautions. CIWAs, PRN Ativan, folic acid, thiamine, multivitamin, and supportive care. client services representative consulted for alcohol audit, information [...] verified, and amended on this date 06/27/2021 ([facility]) Plan of care discussed with nursing/staff. CC: [...] this Hospitalization Long-term IV fluids/meds non- antibiotic 06/26/21 2000 Number of days: 2 Urethral Catheter (Griffin) [...] has been reviewed, verified, and amended accordingly. ([facility]) Diagnostic studies: Labs and radiographic studies personally [...] verified, and amended on this date 06/26/2021 ([facility]) Plan of care discussed with nursing/staff. CC: [...] completed shifts: In: 6186.7 [I.V.:3479; NG/GT:646; IV Piggyback:1.7] Out: 2675 [Urine:2675] Physical Exam: Visit Vitals [...] has been reviewed, verified, and amended accordingly. ([facility]) Diagnostic studies: Labs and radiographic studies personally [...] verified, and amended on this date 06/25/2021 ([facility]) Plan of care discussed with nursing/staff. CC: [...] has been reviewed, verified, and amended accordingly. ([facility]) Diagnostic studies: Labs and radiographic studies personally [...] 09/21/2020 INR 1.03 05/14/2019 Critical Care Time: 40 Minutes separate of procedures Joseph Guerrero MD [facility] note* Bethany Garcia MD - 07/01/2021 [...] Nightly David Zaldivar MD 75 mg at 06/29/21 204 aspirin chewable tablet 81 mg 81 mg [...] subsequent to initial labs (refer to the [facility] Electrolyte Replacement Orders) 1 each 1 [...] DINNER Jamison Kidd MD 40 mg at07/01/21 1708 polyethylene glycol 3350 (GLYCOLAX, MIRALAX) packet 17 g 17 g Oral 2x Daily Jamison Kidd MD 17 g at 07/01/21 1708 Protein pudding supplement 4 oz 4 oz Oral 3x Daily (dietary) Kolton Ashby RD,LD 4 oz at senna-docusate (PERICOLACE) 8.6-50 MG per tablet 1 [...] Friends and Family: Not on file Attends Taoist Services: Not on file Active Member of [...] Associated Order(s): IP CONSULT TO DIETITIAN Received TECHNICAL SME consult to assess patient. Dietitian currently following patient as was receiving trickle tube feeding while on mechanical vent. Patient now transferring to med/surg floor. Recommend advancing oral diet as appropriate and suitable nutrition supplement for healing/skin integrity/as phosphorus supplement upon initiation of diet. Will be following. Thank you for the consult * Arjun Leon NP - 06/27/2021 7:41 AM EST [facility] Medicine / [facility] History and Physical 06/27/21 Yonathan Fernandez 1975 [id number] Assessment/Plan: Yonathan Fernandez is a 46 y.o. male with a history of alcohol abuse with history of withdrawal seizures, CAD who presented to [facility] 06/24/2021 after being found by his mother seizing secondary to alcohol withdrawal. Admitted to heroin use requiring Narcan. In the ED, patient noted to be hypothermic (85.7) and was intubated for airway protection. The patient was admitted to the CCU and administered ATBs, Keppra, and supportive care. Extubated on 06/26/2021 and transferred to Medr unit on 06/27/2021. [facility] was asked to take over medical management 1. Seizure secondary to acute alcohol withdrawal: Keppra continued while withdrawing. Seizure precautions. CIWAs, PRN Ativan, folic acid, thiamine, multivitamin, and supportive care. client services representative consulted for alcohol audit, information [...] of withdrawal seizures, CAD who presented to [facility] 06/24/2021 after being found by his mother seizing secondary to alcohol withdrawal. In the ED, patient noted to be hypothermic (85.7) and was intubated for airway protection. The patient was admitted to the CCU and administered ATBs, Keppra, and supportive care. Extubated on 06/26/2021 and transferred to MedSurg unit on 06/27/2021. [facility] was asked to [...] Friends and Family: Not on file Attends Taoist Services: Not on file Active Member of [...] Mcbride MD - 06/27/2021 6:54 PM EST [facility] ATTESTATION NOTE I [...] mother with seizures. Also patient admitted to surgical specialty center and required Narcan. Hypothermic on arrival and intubated for airway protection and admittedto CCU. Extubated on 06/26/2021 and transferred out of ICU to [facility] service Remains confused and unable to give any history ROS: Total of 14 systems were reviewed & beside the pertinence given above the remainder is negative. Physical exam: weight is 57.2 kg (126 lb 1.7 oz). His forehead temperature is 98.4 F (36.9 C). His blood pressure is 138/88 and his pulse is 101. His [...] needed. Signed: Araceli Mcbride MD * Francesca Carranza, BRAD,LD - 06/25/2021 9:42 AM EST Associated Order(s): [...] the consult, will follow [facility] History and physical note* Joseph Guerrero MD [...] verified, and amended on this date 06/24/2021 ([facility]) Plan of care discussed with nursing/staff. CC: [...] has been reviewed, verified, and amended accordingly. ([facility]) Diagnostic studies: Labs and radiographic studies personally [...] procedures Joseph Guerrero MD documented [facility] Emergency department Note* Loyda Medina RN - [...] Destiney would like pt to contact her [phone] * Fallon Hanson MST - 06/24/2021 8:28 PM EST Sister Destiney would like pt to contact her [phone] * Loyda Medina RN - 06/24/2021 8:05 [...] reviewed. No acute traumatic injury. Updated the foreign correspondent b2b sales professional at [phone]. Requested RT to retract ETT [...] SpO2 06/24/21 1755 100 % Weight 06/24/21 1747 155 lb (70.3 kg) Height -- BMI [...] and dictated with the use of the CloudDock voice recognition software program which may omit [...] PM EST Manual BP 45/palp per Yamilex RN * Melanie Baker RN - 06/24/2021 5:51 PM EST Multiple abrasions and bruising to both knees and lower legs, elbows and small lac noted to left eye brow area * Melanie Baker RN - 06/24/2021 5:43 PM EST Per EMS, pt had a seizure at [facility], healthcare facility administrator found him unresponsive, fell and hit his head. EMS asked if pt had done any drugs, pt admits to heroin use. Pt was given narcan per EMS with minimal effect. Pt eyes glassy, non purposeful movements noted, not following commands, moaning * Katie Hernández RN - 06/24/2021 5:41 PM EST Bed: 12 [facility]ED Expected date: 06/24/21 Expected time: 5:33 PM Means of arrival: [facility] Department Comments: Seizure, GCS 13 documented in this encounterH[facility] History of Present illness Narrative* Flip Herrera RN - 02/22/2021 6:48 PM EDT Patient leaving in cab w/ hospital cab voucher at this time. * Flip Herrera RN - 02/22/2021 6:30 PM EDT Written and verbal discharge instructions given to patient at this time including f/u apointments, where to tile picker scripts and when to call doctor/911; no further questions. * Flip Herrera RN - 02/22/2021 6:03 PM EDT Walker delivered to pt, this RN called haylee ayala to be at [facility] at 1830 for tile picker. * Flip Herrera RN - 02/22/2021 3:57 PM EDT Spoke to Dr. Ariza, pt ok do d/c tonight after evening dose of meds including magnesium; pt willneed front wheeled walker delivered to hospital and cab voucher for transport; this RN to call interlibrary loan specialist to arrange. * To Areli, - 02/22/2021 10:54 AM EDT [facility] Medicine / [facility] Inpatient Progress Note 02/22/2021 Yonathan Fernandez 1975 [id number] Assessment/Plan: Yonathan Fernandez is a 45 y.o. male with a history of coronary artery disease, seizure disorder, extensive alcohol abuse who presented to [facility] 02/16/2021 via EMS as patient [...] MVI, folate, thiamine supplementation; inpatient consultation to clinical social work aide. Started on scheduled phenobarb taper with prn [...] Patient , seen and examined with labs/vitals/imaging call center consultant notes reviewed and summarized abovein the [...] 36.6* PLT 121.0* 134.0* Recent Labs Lab 02/22/21 0720 02/21/21 0745 02/20/21 1132 02/20/21 0548 02/20/21 0548 [...] this interval not displayed. Recent Labs Lab 02/22/21 0720 02/21/21 0745 02/20/21 0548 ALT 62* 71* 47 AST 77* 126* 85* ALKPHOS 144* 171* 116 BILITOT 0.5 0.6 0.7 No results for input(s): INR in the last 168 hours. * Areli Ariza DO - 02/21/2021 12:02 PM EDT [facility] / [facility] Inpatient Progress Note 02/21/2021 Yonathan Fernandez [id number] Assessment/Plan: Yonathan Fernandez is a 45 y.o. male with a history of coronary artery disease, seizure disorder, extensive alcohol abuse who presented to [facility] 02/16/2021 via EMS as patient [...] MVI, folate, thiamine supplementation; inpatient consultation to clinical social work aide. Started on scheduled phenobarb taper with prn [...] Patient , seen and examined with labs/vitals/imaging call center consultant notes reviewed and summarized abovein the [...] 02/19/21 0519 02/19/21 0519 02/17/21 0852 02/17/21 0331 02/16/21205002/16/212050 NA 137 -- 135 -- 139 < [...] Ariza DO - 02/20/2021 11:05 AM EDT [facility] Medicine / [facility] Inpatient Progress Note 02/20/2021 Yonathan Fernandez 1975 [id number] Assessment/Plan: Yonathan Fernandez is a 45 y.o. male with a history of coronary artery disease, seizure disorder, extensive alcohol abuse who presented to [facility] 02/16/2021 via EMS as patient [...] MVI, folate, thiamine supplementation; inpatient consultation to clinical social work aide. Started on scheduled phenobarb taper with prn [...] Patient , seen and examined with labs/vitals/imaging call center consultant notes reviewed and summarized abovein the [...] 0548 02/19/21 0519 02/18/21 0635 02/17/21 0852 02/17/21 0331 02/16/21205002/16/212050 NA 135 139 138 < > 143 [...] Ariza DO - 02/19/2021 11:56 AM EDT [facility] / [facility] Inpatient Progress Note 02/19/2021 Yonathan Fernandez 1975 [id number] Assessment/Plan: Yonathan Fernandez is a 45 y.o. male with a history of coronary artery disease, seizure disorder, extensive alcohol abuse who presented to [facility] 02/16/2021 via EMS as patient [...] MVI, folate, thiamine supplementation; inpatient consultation to clinical social work aide. Started on scheduled phenobarb taper with prn [...] Patient , seen and examined with labs/vitals/imaging call center consultant notes reviewed and summarized abovein the [...] 02/18/21 0635 02/17/21 1306 02/17/21 0852 02/17/21 03302/16/21205002/16/212050 NA 139 138 139 < > 143 [...] the last 168 hours. * Areli Ariza - 02/18/2021 11:14 AM EDT [facility] Medicine / [facility] Inpatient Progress Note 02/18/2021 Yontahan Fernandez 1975 [id number] Assessment/Plan: Yonathan Fernandez is a 45 y.o. male with a history of coronary artery disease, seizure disorder, extensive alcohol abuse who presented to [facility] 02/16/2021 via EMS as patient [...] MVI, folate, thiamine supplementation; inpatient consultation to clinical social work aide 6. Coronary artery disease: s/p PCI to [...] to me, seen and examined with labs/vitals/imaging call center consultant notes reviewed and summarized above in [...] 0635 02/17/21 1306 02/17/21 0852 02/17/21 0331 02/17/21 0331 02/16/21205002/16/212050 NA 138 139 140 < > 143 [...] Pete MD - 02/17/2021 9:05 AM EDT [facility] Medicine / [facility] Inpatient Progress Note 02/17/2021 Yonathan Nunezell 1975 [id number] Assessment/Plan: Yonathan Fernandez is a 45 y.o. male with a history of coronary artery disease, seizure disorder, extensive alcohol abuse who presented to [facility] 02/16/2021 via EMS as patient [...] of drinking 24 30 beers a daily; [place] protocol, daily MVI, folate, thiamine supplementation; inpatient consultation to clinical social work aide 6. Coronary artery disease: s/p PCI to [...] withdrawals. Has tremors. Confused thinks he in [facility] and its 2004. Physical Exam: Visit Vitals BP (!) 142/97 [...] Imaging and Studies reviewed: Recent Labs Lab 02/17/2124 02/16/212050 HGB 10.2* 11.9* HCT 31.2* 36.6* PLT 121.0* 134.0* Recent Labs Lab 02/17/21 0331 02/16/212050 NA 143 140 K 3.0* 3.3* CL 103 99 BUN 39* 41* CREATININE 1.07 1.82* CALCIUM 8.6 9.6 LABALBU 4.0 5.0 PHOS 3.4 5.6* Recent Labs Lab 02/17/21 0331 02/16/212050 ALT 19 24 AST 88* 104* ALKPHOS 119 139* BILITOT 1.7* 2.1* No results for input(s): INR in the last 168 hours. documented [facility]09[facility] Miscellaneous Notes* D/C Planning - Romina Vargas, RN - 02/22/2021 4:46 PM EDT Doctor discharged patient with order for front wheeled walker. Patient tells nurse he does not carewhat [employer] company is used and referral called and sent via [employer] to [facility] Kolton from [employer] calls back and states he will deliver [...] esophagitis Alcohol abuse Coronary artery disease involving [place] coronary artery of [place] heart with angina pectoris (HCC) Seizure disorder [...] Yes Comments: 45 y/o male admitted to [facility] with alcoholic ketoacidosis. Pt has [...] of recurring falls. Prior Function Level of [place]: Independent with ADLs;Independent with functional mobility;Independent with [...] up as able. Thank you. * Nursing - Jas Ojeda RN - 02/21/2021 6:34 AM EDT No [...] Did not express any concerns tonight. * Nursing - Emory Mauro RN - 02/19/2021 6:28 [...] will provide transportation home at discharge. Inpatient lawn care technician role reviewed with the patient. Provided contact information for the the corrections caseworker. Inpatient lawn care technician to follow. Initial Discharge Planning Reason for Referral: Routine Discharge Plan Obtained Information From: Patient Family contact name: Shanice Fernandez Relationship to patient: Mother Family Contact Number: [phone] Living Arrangements: Parent Capacity for Self-Care of [...] Four wheel walker Have you served in armed services: No Who will provide transportation?: Other [...] Patient Initial Discharge plan mutually acceptable to patient/family/corrections caseworker?: Yes % Gina Alejo RN The patient has the right to participate in the development and implementation of his plan of care.The patient or his credit and collections representative (as allowed under State law) has [...] away. He stated they then sent the Monitor Technician after me I talked with him about [...] status A/O to self. documented in this [facility] Hospital Discharge instructions* Instructions* Flip Herrera RN [...] honey, or tonic with a slice of [place]. Or try alcohol- free beer or virgin [...] to in a day? In a week? [place] month? Practice saying no. Be ready when someone offers you a drink. Try: Thanks, I've had enough. Or Thanks, but I'm cutting back. Or No, thanks. I feel better when I drink less. Current as of: July 10, 2020 Content Version: 12.9 [employer]. Care instructions adapted under license by your healthcare professional. If you have questions about a medical condition or this instruction, always ask your healthcare professional. [employer] disclaims any warranty or liability for your [...] the numbers for these national suicide hotlines: 7-897-794-TALK ( ) and 6-163-JANYZKD ( ). If you or someone you [...] Where can you learn more? Go to https://www.[facility]ic[employer].net/patientEd Enter D051 in the search box to learn more about Alcohol Detoxification and Withdrawal: Care Instructions. Current as of: July 10, 2020 Content Version: 12.9 [employer]. Care instructions adapted under license by your healthcare professional. If you have questions about a medical condition or this instruction, always ask your healthcare professional. [employer] disclaims any warranty or liability for your use of this information. documented [facility]09[facility] Hospital course Narrative* Areli Ariza DO - 02/22/2021 11:01 AM EDT [facility] Medicine / [facility] Discharge Summary Yonathan Fernandez Account: [id number] Admitted: 02/16/2021 Discharge Date/Time: 02/22/21 11:01 AM Handoff to PCP PCP to address the following 1. Renal panel/mag level 2. cmp outpt 1 week Clinical Summary Yonathan Fernandez is a 45 y.o. male with a history of coronary artery disease, seizure disorder, extensive alcohol abuse who presented to [facility] 02/16/2021 via EMS as patient [...] MVI, folate, thiamine supplementation; inpatient consultation to clinical social work aide. Started on scheduled phenobarb taper with prn [...] if new/worsening symptoms occurred. Disposition: Home with [facility] Discharge Medications Medication List STOP taking these [...] Family: Hayden Herrera APRN CNP, , Address: [address] [place] [address] Follow Up: Hayden Herrera APRN CNP [address] [place] [address] No future appointments. For more detailed information including patient medical records, please contact [phone] or go to [email or web address] Patient instructions, including activity, were given to the patient/family at discharge. Please seethe After Visit Summary in the medical record for details. Time spent on discharge: > 30 Minutes Completed by: Areli Ariza on 02/22/21, 11:01 AM documented [facility] Emergency department Note* Daniela Bautista MST - 02/16/2021 11:28 PM EDT 4205 clean * Daniela Bautista MST - 02/16/2021 11:24 PM EDT BED REQUESTED * Daniela Bautista MST - 02/16/2021 11:13 PM EDT Awaiting [facility] admission order * Sandi Curtis RN - 02/16/2021 9:56 PM EDT Results received at 2156 From golf course laborer Critical Lab result Ketone greater then 9 [...] (L) 1.2 - 3.3 10 3/uL Absolute [place] Manual 0.2 0.2 - 0.6 10 3/uL [...] past surgical history. Physical Exam: Vitals: 02/16/213 02/16/21 2139 02/16/21 2140 02/16/21 2148 BP: 138/87 130/90 130/90 134/90 BP Location: [...] and dictated with the use of the CloudDock voice recognition software program which may omit or change portions of the dictation, and/or substitute, homonyms and thereby alter the original intent of the dictated statement. Unintended gender changes may also be incorporated due to misinterpretation of the spoken words. Shiv Park MD 02/16/219 * Cydney Mathur RN - 02/16/2021 9:20 PM EDT Results received at 2119. From lab. Critical Lab result CO2. Results [...] - 02/16/2021 8:36 PM EDT Bed: 29 [facility] Expected date: 02/16/21 Expected time: 8:27 PM Means of arrival: [employer] Comments: Pt crawling around on the floor for last 3 days documented [facility] this [facility] History and physical note* Josie Jacobs MD - 02/16/2021 11:15 PM EDT [facility] Medicine / [facility] History and Physical 02/17/21 Yonathan Fernandez 1975 [id number] Assessment/Plan: Yonathan Fernandez is a 45 y.o. male with a history of coronary artery disease, seizure disorder, extensive alcohol abuse who presented to [facility] 02/16/2021 via EMS as patient [...] MVI, folate, thiamine supplementation; inpatient consultation to clinical social work aide 5. Coronary artery disease: s/p PCI to [...] Social Gatherings with Friends and Family: Attends Taoist Services: Active Member of Clubs or Organizations: [...] the last 168 hours. documented [facility]08[facility] Miscellaneous Notes* Nursing - KristinAlda stockton RN - 01/06/2021 1:15 PM EDT Discharged [...] 11:25 AM EDT Spoke with Kee at [facility] and they are able to accept [...] test scheduled for tomorrow. NPO at midnight. MotherShanice called and updated on plan of care. [...] He then said Jack, I need a evaluation specialist. SW left and advised RN of patient possibly hallucinating. Initial Discharge Planning Anticipated Length of Stay: 10 Difference with actual LOS: -4 Reason for Referral: Routine Discharge Plan Obtained Information From: Chart, Patient Family contact name: Shanice Fernandez Relationship to patient: Mother Family Contact Number: [phone] Living Arrangements: Parent Capacity for Self-Care of [...] Use DME: No Have you served in armed services: No Who will provide transportation?: Other Barriers to Discharge: None Discharge Plans Complete: Yes Discharge Planning Needs Anticipated Discharge Plan: Home or Self Care Med Outreach: No Med Precert needed: Unknown Mode of Transportation: Car Barriers to Discharge: None Discharge plan developed in collaboration with: Patient, Attempted with Family/Caregiver Initial Discharge plan mutually acceptable to patient/family/corrections caseworker?: Yes Wendy Mccarty The patient has the right to participate in the development and implementation of his plan of care.The patient or his credit and collections representative (as allowed under State law) has [...] patient agreeable to HH. Called referral to [facility] and they can not accept due to not accepting insurance. 10:49am Called referral into Sheila at [facility] and they do accept insurance and she will review patient chart and their staffing and will call back. 11:20am Received call back from Sheila at [facility] and they can not accept due to staffing. 11:30pm Referral sent to [facility], awaiting call back. * Rehab Therapies - Allan Hay OT - 01/05/2021 10:42 AM EDT Images from the original note were not included. S OT Initial Evaluation Name: Yonathan Fernandez Date [...] day. Prior Function Prior Function Level of [place]: Independent with ADLs, Independent with functional mobility, [...] Raw Score: 19 AM-PAC Scale Score: 40.22 AM-[facility] 0-100% Score: 42.80% AM-[facility] Modifier: CK Plan and Goals ADL Goals [...] Comment Comments: OT evaluation completed. Signature: Afsaneh Jones25, OT January 05, 2021 * Nursing - [...] light in reach. * Nursing - Chelsea Dow, ERIK - 01/04/2021 6:11 PM EDT End of Shift Note: pt resting in bed, 1:1 sitter at bedside. A&Ox4 this evening. Pt states he felt good today, no ativan was needed. Pt was up in the chair for breakfast this morning. * D/C Planning - Marla Gunderson, ERIK - 01/04/2021 3:51 PM EDT Patient continues to have a sitter - CM LM for patient's mom to complete initial assessment. Awaiting PT/OT to evaluate for assistance with DC planning. * Marta Giang LPN - 01/04/2021 6:46 AM EDT Mother [...] the best of this nurses ability. * Marta Giang LPN - 01/04/2021 6:42 AM EDT End [...] AxO but gets disoriented at times. * Marta Giang LPN - 01/03/2021 8:32 PM EDT Pt has a reduced depth perception. Grabbing things too early as well as unable to perform finger tip/nose touch exercise. * Chelsea Fernandes RN - 01/03/2021 5:44 PM EDT End of Shift Note: Pt resting in bed. 1:1 sitter continued at bedside. A&Ox4. Pt states he feels much better and needs to get home to take care of his mom. Denies further needs. * Rehab Therapies - Allan Hay OT - 01/03/2021 11:39 AM EDT Name: Yonathan Fernandez CAT: [id number] 01/03/21 1139 General Chart Reviewed Yes Time spent with patient/family/caregiver 0 Minutes Amount of Missed Time 20 General Comment Comments OT evaluation order received and appreciated. Pt. sleeping soundly, 1:1 sitter in room. Will follow up as able. * Nursing - Katelin Casper RN - 01/03/2021 10:58 AM EDT Rit signed * Nursing - Marta Cook LPN - 01/03/2021 6:44 [...] AM. * Plan of Care - Frances Uriarte, RN - 01/03/2021 1:52 AM EDT Care [...] an Alcohol audit. * Rehab Therapies - Eufemia Grant PT - 01/02/2021 1:30 PM EDT Images [...] (HCC) Alcohol abuse Coronary artery disease involving [place] coronary artery of [place] heart with angina pectoris (HCC) Elevated lipase [...] (probable alcoholic gastritis). Pt had 5 stentsin 2019> Pt has had 1:1 sitter until this [...] a bad day. Prior Function Level of [place]: Independent with ADLs;Independent with functional mobility;Needs assistance [...] Eufemia Lanza, PT January 02, 2021 * AJAY Thomas - 01/02/2021 1:00 PM EDT Patient resting quietly throughout morning. CVS in room and sitter discontinued. * AJAY Thomas - 01/02/2021 10:00 AM EDT Patient resting quietly at this time. Will give medications when patient awake. 1:1 at bedside. * Rehab Therapies - Anahy Valenzuela OTR - 01/02/2021 9:07 AM EDT OT IE orders received. D/t volume of evals on caseload, pt may not be seen this date. Will continueto follow. Thanks. * Nursing - Maxine Bolivar RN - 01/02/2021 5:13 AM EDT Pt resting [...] and agitation. PRN ativan 2mg given. * Nursing - AJAY ADAN - 01/01/2021 6:07 PM EDT Patient remains confused with tremors in bilateral arms. He is conversing with sitter. Disoriented and with slurred speech but not attempting to get out of bed. Sitter is encouraging patient to eat dinner. * Nursing - AJAY ADAN - 01/01/2021 5:29 PM EDT End of [...] room. Patient given ativan multiple times. * Nursing AJAY GIL - 01/01/2021 2:56 PM EDT Patient continues [...] aware that the pyxis on unit (both [facility]) are out of IV ativan. Pharm states that someone is coming to refill. 1027: No ativan in pyxis at this time. Patient appears calmer and CIWA score has decreased. * AJAY Thomas - 01/01/2021 9:27 AM EDT Attempted to give patient medications orally. Patient refused to open mouth. Medications marked as given but not actually given. Unable to re-direct. * Nursing - Maxine Bolivar RN - 01/01/2021 5:34 AM EDT Pt currently resting in bed. At 2255, pt attempting to get out of bed with tremors, hallucinations (states we are in his house),slurred speech, and agitation (states- give me the f*cking phone). 2mg at ativan given. At 0335 [...] denies further needs. * Nursing - Maxine Bolivar RN - 12/31/2020 7:36 PM EDT Pt trying [...] I had a seizure. Patient in bed, business writer entered room patient with no s/sx [...] to follow and attempt dc planning. * Marylu Green RN - 12/31/2020 9:21 AM EDT Patient [...] and falling to sleep during conversation. * Maxine Romero, RN - 12/31/2020 6:45 AM EDT Pt [...] 12/30/2020 4:08 PM EDT Patient arrives from [facility] by bed to room 3116. Transferred to bed with the assistance of one. Patient is accompanied by nobody Patient reports no complaints Patient's current mental status alert. * Renata - Gladis Garcia RN - 12/30/2020 3:35 PM EDT Patient resting in bed with eyes closed, patient will open up eyes and answers my questions. Bed alarm on for safety. * Renata - Gladis Garcia RN - 12/30/2020 3:25 PM EDT Report called to Irene VALENCIA on 3W * D/C Planning - Andre [...] ordered. Patient sitting up in bed, Zee PEREZ, orders lunch for patient. Call light in [...] reach, padded side rails up x2 * Alicia Cohen RN - 12/30/2020 6:09 AM EDT Updated stress lab pt condition change and would not tolerate stress test * Alicia Cohen RN - 12/30/2020 5:00 AM EDT Medone request * Alicia Cohen RN - 12/30/2020 4:49 AM EDT Pt cleaned of incontinent urine. Bedlinens changed. Pt is fidgety and fighting against staff tryingto turn and position him * Nursing - Alicia Schaeffer RN - 12/30/2020 4:33 AM EDT Tory Chawla examines. Orders EKG * Quick Note - Tory Chawla APRN STEEL FITTER - 12/30/2020 4:30 AM EDT Examined patient at the request of primary RN. Patient has been given several doses of Ativan for elevated CIWA scores. Patient speech is somewhat mumbling however he is able to recall that he is in the hospital at [facility] as well as the appropriate year. [...] testing today. Patient to be transition to [facility] service. Physical Exam Vitals and nursing note [...] Mood and Affect: Affect is labile. * Alicia Cohen RN - 12/30/2020 2:37 AM EDT Roselia [...] out. New IV inserted w/o difficulty. * Alicia Cohen RN - 12/29/2020 10:05 PM EDT Ambulates to BR with SBA and walker, gait wobbly. Bed alarm in place. * Alicia Cohen RN - 12/29/2020 8:42 PM EDT Contacted [...] as well as online AA meetings. * Gladis Horne RN - 12/29/2020 2:17 PM EDT CIWI [...] we keep him in our prayers. * Alicia Cohen RN - 12/29/2020 7:24 AM EDT REPORT [...] voices I'm working on it. * Alicia Coehn RN - 12/29/2020 3:34 AM EDT Rests in bed with eyes closed. IV fluids infusing. NAD noted. Call light in reach side rails paddedand up x2. * Alicia Cohen RN - 12/28/2020 10:41 PM EDT PT IS SCHEDULED FOR STRESS TEST ON 12/29 @ 130 PM * Alicia Cohen RN - 12/28/2020 10:33 PM EDT admission assessment complete. NAD noted. CIWA neg. C/o mid sternal chest pain. No SOB noted. Alertand oriented. Speech is clear. Side rails padded for safety. Call light in reach side rails up x2 * Nursing - Fidelia Thomas RN - 12/28/2020 10:24 PM EDT Critical lab ETOH 361, Roselia A TECHNICAL SME aware of same * Nursing - Alicia Schaeffer RN - 12/28/2020 10:16 PM EDT Pt arrives to room 1215 from ED, ambulates to bed. NAD noted. Magnesium infusing documented in this [facility]08-09-2021 History of Present illness Narrative* Maxine Soares MD - 01/05/2021 2:55 PM EDT [facility] Medicine / [facility] Inpatient Progress Note 01/05/2021 Yonathan Nunezell 1975 [id number] Assessment/Plan: Yonathan Fernandez is a 45 y.o. male with a history of CAD, HTN, seizures, tobacco abuse, and alcohol abuse who presented to [facility] 12/28/2020 with complaints of substernal nonradiating chest pain associated with shortness of breath which occurred after mowing his lawn. Patient was initially admitted to theCDU but began withdrawing from alcohol requiring multiple doses of IV and IM Ativan. He was subsequently transferred to [facility] 1. Acute chest/epigastric pain: CXR 12/28 nonacute. [...] on suprapubic region: Needs referral to a census clerk or a surgeon for biopsy to rule [...] Imaging and Studies reviewed: Recent Labs Lab 01/05/2142101/04/21 0404 01/03/21 0323 HGB 11.2* 10.1* 10.2* HCT 35.6* 31.3* 31.3* PLT 334.0 258.0 217.0 Recent Labs Lab 01/05/21 0422 01/04/21 0404 01/03/21 0323 NA 139 137 131* K 4.5 3.9 3.6 CL 107 107 106 BUN 6* 4* 3* CREATININE 0.66 0.60* 0.60* CALCIUM 9.6 8.9 8.5 LABALBU 4.0 3.8 3.6 Recent Labs Lab 01/05/212 01/04/21 0404 01/03/21 0323 ALT 32 26 21 AST 52 60* 48 ALKPHOS 133* 140* 133* BILITOT 0.5 0.5 0.6 No results for input(s): INR in the last 168 hours. * Darinel Pete MD - 01/04/2021 8:52 AM EDT [facility] / [facility] Inpatient Progress Note 01/04/2021 Yonathan Fernandez 1975 [id number] Assessment/Plan: Yonathan Fernandez is a 45 y.o. male with a history of CAD, HTN, seizures, tobacco abuse, and alcohol abuse who presented to [facility] 12/28/2020 with complaints of substernal nonradiating chest pain associated with shortness of breath which occurred after mowing his lawn. Patient was initially admitted to theCDU but began withdrawing from alcohol requiring multiple doses of IV and IM Ativan. He was subsequently transferred to [facility] 1. Acute chest/epigastric pain: Personally reviewed CXR [...] scheduled x72 hours.CIWA protocols with PRN Ativan. client services representative consulted for alcohol audit and information regarding rehabilitation after discharge/community resources 3. Hypokalemia and Hypomagnesemia: replaced per protocol 4. Decreased depth perception, dysmetria: noted by nurses on 01/04. CTH ordered. PT/OT 5. Incidentally found pigmented suspicious skin lesion: on suprapubic region: Needs referral to a census clerk or a surgeon for biopsy to rule [...] Pete MD - 01/03/2021 11:19 AM EDT [facility] / [facility] Inpatient Progress Note 01/03/2021 Yonathan Tai Slick 1975 [id number] Assessment/Plan: Yonathan Fernandez is a 45 y.o. male with a history of CAD, HTN, seizures, tobacco abuse, and alcohol abuse who presented to [facility] 12/28/2020 with complaints of substernal nonradiating chest pain associated with shortness of breath which occurred after mowing his lawn. Patient was initially admitted to theCDU but began withdrawing from alcohol requiring multiple doses of IV and IM Ativan. He was subsequently transferred to [facility] 1. Acute chest/epigastric pain: Personally reviewed CXR [...] scheduled x72 hours.CIWA protocols with PRN Ativan. client services representative consulted for alcohol audit and information regarding rehabilitation after discharge/community resources 3. Hypokalemia and Hypomagnesemia: replaced per protocol 4. Incidentally found pigmented suspicious skin lesion: on suprapubic region: Needs referral to a census clerk or a surgeon for biopsy to rule [...] with him. [place] and [place] was [place]. He denied any chest pain currently. He wants to go he has to get back to work. 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 [...] Imaging and Studies reviewed: Recent Labs Lab 01/03/2132201/02/21 0603 01/01/21 0408 HGB 10.2* 10.1* 10.2* HCT 31.3* 30.6* 31.3* PLT 217.0 173.0 122.0* Recent Labs Lab 01/03/2132201/02/21 0603 01/01/21 0408 NA 131* 134* 133* K 3.6 3.5* 3.7 CL 106 106 103 BUN 3* 3* 4* CREATININE 0.60* 0.46* 0.44* CALCIUM 8.5 8.0* 8.2* LABALBU 3.6 3.5 3.6 Recent Labs Lab 01/03/2132201/02/21 0603 01/01/21 0408 ALT AST 48 65* 105* ALKPHOS 133* 137* 132* BILITOT 0.6 1.0 1.3 No results for input(s): INR in the last 168 hours. * Darinel Pete MD - 01/02/2021 2:25 PM EDT [facility] / [facility] Inpatient Progress Note 01/02/2021 Yonathan Fernandez 1975 [id number] Assessment/Plan: Yonathan Fernandez is a 45 y.o. male with a history of CAD, HTN, seizures, tobacco abuse, and alcohol abuse who presented to [facility] 12/28/2020 with complaints of substernal nonradiating chest pain associated with shortness of breath which occurred after mowing his lawn. Patient was initially admitted to theCDU but began withdrawing from alcohol requiring multiple doses of IV and IM Ativan. He was subsequently transferred to [facility] 1. Acute chest/epigastric pain: Personally reviewed CXR [...] scheduled x72 hours.CIWA protocols with PRN Ativan. client services representative consulted for alcohol audit and information regarding rehabilitation after discharge/community resources 3. Hypokalemia and Hypomagnesemia: replaced per protocol 4. Incidentally found pigmented suspicious skin lesion: on suprapubic region: Needs referral to a census clerk or a surgeon for biopsy to rule [...] Imaging and Studies reviewed: Recent Labs Lab 01/02/2160201/01/21 0408 12/31/20 0320 HGB 10.1* 10.2* 10.2* HCT 30.6* 31.3* 30.9* PLT 173.0 122.0* 90.0* Recent Labs Lab 01/02/21 0601/01/21 0408 12/31/20 0320 NA 134* 133* 133* K 3.5* 3.7 3.8 CL 106 103 103 BUN 3* 4* 3* CREATININE 0.46* 0.44* 0.47* CALCIUM 8.0* 8.2* 8.8 LABALBU 3.5 3.6 3.8 Recent Labs Lab 01/02/2160221 0408 12/31/20 0320 ALT 23 28 28 AST 65* 105* 138* ALKPHOS 137* 132* 121 BILITOT 1.0 1.3 1.5 No results for input(s): INR in the last 168 hours. * Darinel Pete MD - 01/01/2021 8:52 AM EDT [facility] / [facility] Inpatient Progress Note 01/01/2021 Yonathan Fernandez 1975 [id number] Assessment/Plan: Yonathan Fernandez is a 45 y.o. male with a history of CAD, HTN, seizures, tobacco abuse, and alcohol abuse who presented to [facility] 12/28/2020 with complaints of substernal nonradiating chest pain associated with shortness of breath which occurred after mowing his lawn. Patient was initially admitted to theCDU but began withdrawing from alcohol requiring multiple doses of IV and IM Ativan. He was subsequently transferred to [facility] 1. Acute chest/epigastric pain: Troponin cycled and [...] scheduled x72 hours.CIWA protocols with PRN Ativan. client services representative consulted for alcohol audit and information regarding rehabilitation after discharge/community resources 3. Hypokalemia and Hypomagnesemia: replaced per protocol 4. Incidentally found pigmented suspicious skin lesion: on suprapubic region: Needs referral to a census clerk or a surgeon for biopsy to rule [...] Pete MD - 12/31/2020 8:20 AM EDT [facility] / [facility] Inpatient Progress Note 12/31/2020 Yonathan Fernandez 1975 [id number] Assessment/Plan: Yonathan Fernandez is a 45 y.o. male with a history of CAD, HTN, seizures, tobacco abuse, and alcohol abuse who presented to [facility] 12/28/2020 with complaints of substernal nonradiating chest pain associated with shortness of breath which occurred after mowing his lawn. Patient was initially admitted to theCDU but began withdrawing from alcohol requiring multiple doses of IV and IM Ativan. He was subsequently transferred to [facility] 1. Acute chest/epigastric pain: Troponin cycled and [...] scheduled x72 hours.CIWA protocols with PRN Ativan. client services representative consulted for alcohol audit and information regarding rehabilitation after discharge/community resources 3. Hypokalemia and Hypomagnesemia: replaced per protocol 4. Incidentally found pigmented suspicious skin lesion: on suprapubic region: Needs referral to a census clerk or a surgeon for biopsy to rule [...] and Studies reviewed: Recent Labs Lab 12/31/20 0320 12/30/20 1142 12/29/20 0204 HGB 10.2* 9.7* 10.4* HCT 30.9* 29.4* 30.5* PLT 90.0* 73.0* 78.0* Recent Labs Lab 12/31/20 0320 12/30/20 1142 12/29/20 1447 12/29/20 0204 12/28/20 2318 NA 133* 132* -- 139 -- K 3.8 3.5* 3.9 3.0* -- CL 103 104 -- 104 -- BUN 3* 4* -- 5* -- CREATININE 0.47* 0.46* -- 0.57* -- CALCIUM 8.8 8.1* -- 7.5* -- LABALBU 3.8 -- -- -- 3.8 Recent Labs Lab 12/31/20 0320 12/28/20 2318 ALT 28 22 AST 138* 96* ALKPHOS 121 121 BILITOT 1.5 0.6 No results for input(s): INR in the last 168 hours. * Ingris Gustafson APRN TECHNICAL SME - 12/29/2020 2:03 PM EDT Progress Note Hospital Day: 0 Principle Problem: Acute chest pain Assessment/Plan: Principal Problem: Acute chest pain - 3 negative trop. Stress test rescheduled given abnormal electrolytes Active Problems: Tobacco abuse - counseled Acute alcohol intoxication, uncomplicated (HCC) - resolved Alcohol abuse - [facility] protocol Coronary artery disease involving [place] coronary artery of [place] heart with angina pectoris (HCC)- stress test [...] regularly and medicate per protocol. Pt c/o 06/08 mid sternal chest pain that stays there [...] collaborating physician Dr. Hancock. Ingris Clark APRN NP documented in this [facility]08-03-2021 History and physical note* Arjun Leon NP - 12/30/2020 6:30 AM EDT [facility] / [facility] History and Physical 12/30/20 Yonathan Fernandez 1975 [id number] Assessment/Plan: Yonathan Fernandez is a 45 y.o. male with a history of CAD, HTN, seizures, tobacco abuse, and alcohol abuse who presented to [facility] 12/28/2020 with complaints of substernal nonradiating chest pain associated with shortness of breath which occurred after mowing his lawn. Patient was initially admitted to theCDU but began withdrawing from alcohol requiring multiple doses of IV and IM Ativan. He was subsequently transferred to [facility] 1. Acute chest pain: Troponin cycled and negative. Lexiscan stress echo once through withdrawal. 2. Acute alcohol withdrawal with delirium: history of abuse and dependence. Continue folic acid, thiamine, and multivitamin. CIWA protocols with PRN Ativan. Supportive care. client services representative consultedfor alcohol audit and information [...] abuse, and alcohol abuse who presented to [facility] 12/28/2020 with complaints of substernal nonradiating chest pain associated with shortness of breath which occurred after mowing his lawn. Patient was initially admitted to theCDU but began withdrawing from alcohol requiring multiple doses of IV and IM Ativan. He was subsequently transferred to [facility] ROS: Unable to perform a complete review [...] Social Gatherings with Friends and Family: Attends Taoist Services: Active Member of Clubs or Organizations: [...] Mcbride MD - 12/30/2020 9:44 PM EDT [facility] ATTEND[facility] PHYSIC[facility] ATTESTATION NOTE I [...] by me in the presence of a dispatch clerk and then noted to havea irregular pigmented [...] on suprapubic region: Needs referral to a census clerk or a surgeon for biopsy to rule [...] 12/28/2020 PCP: Hayden Herrera APRN CNP Room: 1215/01 CHIEF COMPLAINT: Chest Pain HISTORY OF PRESENT ILLNESS Yonathan Fernandez is a 45 y.o. male presented to [facility] Emergency Department on 12/28/2020 with chief complaint [...] abuse Alcohol abuse Coronary artery disease involving [place] coronary artery of [place] heart with angina pectoris (HCC) Acute chest pain with history of CAD: Cardiac monitoring. Serial troponin. Obtain Lexiscan stress testing. Lipid panel in a.m. We will also obtain lipase and hepatic panel to rule out other etiologies of chest pain given his alcohol abuse. Tobacco abuse: Encourage cessation. Nicotine replacement ordered as needed. Alcohol abuse: Ethanol level pending at time of admission. [facility] protocol ordered. Seizure precautions ordered. We will also obtain Keppra level. Signed: Tory Chawla APRN CNP This plan was discussed with patient and/or parent(s), questions were answered, the patient and or parent(s) appear to understand and agree with plan for admission. Spoke with Dr. Hancock attending regarding patient. Physician to complete their own physical exam andevaluation. Collaboration performed between this OPEN HEARTH STOCKYARD SUPERVISOR and physician regarding patient's plan of care. [...] decision making plan verbally with the midlevel, TECHNICAL SME, or PA, that led to the disposition, treatment, discharge, or admission of this patient. The orders entered are part of the direct result of that medical decision making and treatment plan formulated and discussed. documented [facility] this [facility] Hospital Discharge instructions* Instructions* Satnam Beck RN [...] irregular heartbeat. After you call 911, the maintainer operator may tell you to chew 1 [...] Where can you learn more? Go to https://www.[employer]/patientEd Enter A120 in the search box to learn more about Chest Pain: Care Instructions. Current as of: March 17, 2020 Content Version: 12.9 [employer]. Care instructions adapted under license by your healthcare professional. If you have questions about a medical condition or this instruction, always ask your healthcare professional. [employer] disclaims any warranty or liability for your [...] ? You are taking other medicines, including jnxw-mze-zvekaqw ones, or have other health problems. ? [...] Where can you learn more? Go to https://www.[employer].net/patientEd Enter T102 in the search box to learn more about Acute Alcohol Intoxication: Care Instructions. Current as of: July 10, 2020 Content Version: 12.9 [employer]. Care instructions adapted under license by your healthcare professional. If you have questions about a medical condition or this instruction, always ask your healthcare professional. [employer] disclaims any warranty or liability for your use of this information. documented in this encounterH[facility] Emergency department Note* Aretha Lockhart MST - [...] male with a history of CAD, previous MS, seizure disorder who presents today with chief complaint of chest pain. Patient states 2 hours prior to arrival he began having substernal chest pain. He describes it as a pressure, elephant sitting on his chest. Denies any radiation. Is associated with shortness of breath, nausea, vomiting, diaphoresis. No known exacerbating alleviating factors. Patient states that it is different than his previous MS pain. He also states that he became [...] male with a history of CAD, previous MS, seizure disorder, alcohol abuse presents today with [...] - 12/28/2020 7:46 PM EDT Bed: 18 GHED Expected date: 12/28/20 Expected time: 7:41 PM Means of arrival: [employer] Comments: SZ 1401 Chest pain, [...] w/easy respires NAD noted documented in this encounterH[facility]06-24-2021 Miscellaneous Notes* Nursing - Leny Tsang RN - 11/20/2020 12:04 PM EDT Pt states that he has a walker at home and pt mother contacted for transportation. Pt states that he will set up his follow-up appointment with the doctor. Verbal and written discharge instructions were given to the pt. IV removed. Pt mom is transportation. * Rehab Therapies - Sherri Iraheta CCC-WEATHER STRIP INSTALLER - 11/20/2020 11:38 AM EDT Name: Yonathan Fernandez CAT: [id number] Initial cognitive-linguistic evaluation orders received and appreciated. Per chart, pt's persistent AMS is suspected to be Wernicke's encephalopathy related to alcohol use.Thiamine has been started for same. ST will hold evaluation as Wernicke's encephalopathy is treatedmedically, but would recommend assessment at discharge if AMS continues following course of thiamine. RN aware of same. Thank you. * Nursing - Leny Tsang, RN - 11/20/2020 10:15 AM EDT Pt [...] in that he thought he was in long term when he first woke this am, and he is demanding to know why he is still here stating that he was suppose to only be in long term for 21 days, he believes that he [...] Yes Comments: 45 y/o male admitted to [facility] for alcohol withdrawal. Pt has [...] a reliable historian Prior Function Level of [place]: Independent with ADLs;Independent with functional mobility;Independent with [...] room;Bed alarm turned on Signature: José Miguel Shi, PT, DPT November 19, 2020 * Nursing [...] for patient. * D/C Planning - Anahy Avitia, Production Control Analyst - 11/18/2020 2:10 PM EDT 11/18/20 1409 [...] Family/Caregiver Initial Discharge plan mutually acceptable to patient/family/corrections caseworker? Yes Comments Comments Pt dc plans are to return home. No cm needs identified. * Rehab Therapies - José Miguel Shi, PT - 11/18/2020 9:45 AM EDT Name: Yonathan Fernandez CAT: [id number] 11/18/20 0945 General Chart Reviewed Yes Amount [...] schedule permits. * Nursing - Leeanne Sifuentes, RN - 11/17/2020 9:30 AM EDT This RN and MST in room to provide care. Pt pulling on IV tubing along with sheet and a pillow laying over his face. This RN removed IV tubing from grasp and insured that IV was still patent. MST attempted to remove sheet d/t all bed linens soaked with urine. Pt began yelling and cursing at [facility]. This RN and MST attempted to educate [...] He begins screaming and cussing at this [facility], saying Why would I be wet?! I'm [...] pt given full bath. * Nursing - Gian Chester RN - 11/17/2020 6:32 AM EDT [...] 4:19 PM EDT Name: Yonathan Fernandez CAT: [id number] PT orders received and medical chart has been reviewed. Patient will be seen by a skilled Physical Therapist as schedule permits. José Miguel Shi, PT, DPT * Nursing - Leny Tsang RN - 11/16/2020 2:28 PM EDT Edgar MILLS called and updated on pt. Pt in bed with call light within reach and bed alarm on. * D/C Planning - Anahy Avitia, Production Control Analyst - 11/16/2020 2:06 PM EDT CM Initial [...] allagency involvement. Rx + uses [facility]. Dr Elizalde is PCP. Mother will provide t ransportation at pr. Role and availability of cm discussed. Initial Discharge Planning Reason for Referral: Drug/Alcohol Abuse Obtained Information From: Chart Family contact name: Shanice Fernandez Relationship to patient: Mother Family Contact Number: [phone] Living Arrangements: Family Members Capacity for Self-Care [...] in home: Walker Have you served in [employer] services: No Who will provide transportation?: (Mother) [...] Family/Caregiver Initial Discharge plan mutually acceptable to patient/family/corrections caseworker?: Yes % Social Pura Murray The patient has the right to participate in the development and implementation of his plan of care.The patient or his credit and collections representative (as allowed under State law) has the right to make informed decisions regarding his discharge plan. The patient's right includes being involved in care planning and treatment. * Nursing - Anahy Avitia Social Worker - 11/16/2020 2:02 PM EDT 11/16/20 1400 [...] provided. Pt declined need for SUDtx. * Renata - Chante Lara RN - 11/16/2020 1:58 PM EDT Attempt to call [place] with [employer]) at this time. No answer, left message for return phone call. * Yandy Phillips RN - 11/16/2020 6:18 AM EDT This [...] collect urine specimen per the same. * Yandy Phillips RN - 11/16/2020 5:36 AM EDT Patient [...] O X 4 . documented in this encounterH[facility]06-23-2021 History of Present illness Narrative* Magali Hernández PA - 11/19/2020 9:31 AM EDT [facility] Hospital Medicine / [facility] Inpatient Progress Note 11/19/2020 Yonathan Fernandez 1975 [id number] Assessment/Plan: Yonathan Fernandez is a 45 y.o. male with a history of CAD, HTN, seizures, tobacco abuse, and alcohol abuse who presented to [facility] 11/15/2020 with witnessed seizure- like [...] 250mg IV or IM x5 additional days. PT/OT/WEATHER STRIP INSTALLER consulted. Monitor closely. 3. Hypokalemia: We will [...] situation: Home Expected Disposition: Home vs SNF, PT/OT/WEATHER STRIP INSTALLER and CM consulted Estimated discharge date: TBD, [...] Leon NP - 11/18/2020 7:35 AM EDT [facility] Medicine / [facility] Inpatient Progress Note 11/18/2020 Yonathan Fernandez [id number] Assessment/Plan: Yonathan Fernandez is a 45 y.o. male with a history of CAD, HTN, seizures, tobacco abuse, and alcohol abuse who presented to [facility] 11/15/2020 with witnessed seizure- like [...] Leon NP - 11/17/2020 11:35 AM EDT [facility] Medicine / [facility] Inpatient Progress Note 11/17/2020 Yonathan Fernandez 1975 [id number] Assessment/Plan: Yonathantaisha Fernandez is a 45 y.o. male with a history of CAD, HTN, seizures, tobacco abuse, and alcohol abuse who presented to [facility] 11/15/2020 with witnessed seizure- like [...] Hernández PA - 11/16/2020 8:12 AM EDT [facility] Medicine / [facility] Inpatient Progress Note 11/16/2020 Yonathan Fernandez 1975 [id number] Assessment/Plan: Yonathan Fernandez is a 45 y.o. male with a history of CAD, HTN, seizures, tobacco abuse, and alcohol abuse who presented to [facility] 11/15/2020 with witnessed seizure- like [...] and Studies reviewed: Recent Labs Lab 11/16/20 0519 11/15/20 2354 HGB 10.2* 12.1* HCT 29.5* 35.5* PLT 57.0* 72.0* Recent Labs Lab 11/16/20 0519 11/15/20 2354 NA 135 135 K 2.7* 3.3* CL 101 96 BUN 6* 5* CREATININE 0.45* 0.47* CALCIUM 8.2* 9.6 No results for input(s): ALT, AST, ALKPHOS, BILITOT in the last 168 hours. No results for input(s): INR in the last 168 hours. documented in this [facility]06-20-2021 Consult note* Joyce Mondragon MD - 11/16/2020 10:32 AM EDT Associated Order(s): Inpatient consult to Hematology thrombocytopenia, PLT 500s- >50 in 1 month Inpatient consult to Hematology thrombocytopenia, PLT 500s->50 in 1 month Consult performed by: Giancarlo, Joyce, MD Consult ordered by: Magali Hernández PA [...] Mondragon M.D. 11/16/2020 10:32 AM documented in [facility]06-20-2021 Emergency department Note* Daniela Bautista MST - [...] 3.3 10 3/uL Monocytes 5.8 % Absolute [place] 0.3 0.2 - 0.6 10 3/uL Eosinophil [...] alcohol abuse and seizure-like activity [facility]. EMS was [...] and dictated with the use of the CloudDock voice recognition software program which may omit [...] EDT Pt arrives to room #9 via [facility] following seizure at home with hx of same. EMS reports patient drinks a pint of alcohol per day - pt states did not drink today I wasn't in the mood. Pt alert and oriented, respers easy and unlabored, NAD. Skin P/W/D * Sandi Curtis RN - 11/15/2020 11:48 PM EDT Bed: [address] [place] [address] Expected date: 11/15/20 Expected time: 11:37 PM Means of arrival: [facility] Comments: Seizure with hx documented in this [facility]06-20-2021 History and physical note* Maxine Mendoza PA - 11/16/2020 1:08 AM EDT [facility] Medicine / [facility] History and Physical 11/16/20 Yonathan Fernandez 1975 [id number] Assessment/Plan: Yonathan Fernandez is a 45 y.o. male with a history of CAD, HTN, seizures, tobacco abuse, and alcohol abuse who presented to [facility] 11/15/2020 with witnessed seizure- like [...] abuse, and alcohol abuse who presented to 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 which was the first seizure he never [...] Social Gatherings with Friends and Family: Attends Taoist Services: Active Member of Clubs or Organizations: [...] Mcbride MD - 11/16/2020 9:56 AM EDT [facility] ATTESTATION NOTE I have personally seen and examined the patient earlier independently of Maxine Mendoza, [facility] provider, and have personally discussed the [...] Signed: Araceli Mcbride MD documented in this [facility]05-04-2021 Hospital Discharge instructions* Instructions* Lorie Somers, ERIK - 09/30/2020 Alcohol Detoxification and Withdrawal: Care [...] the numbers for these national suicide hotlines: 9-142-935-TALK ( ) and 9-459-ZJLVVZE ( ). If you or someone you [...] Where can you learn more? Go to https://www.ChicPlace.net/patientEd Enter D051 in the search box to learn more about Alcohol Detoxification and Withdrawal: Care Instructions. Current as of: November 26, 2019 Content Version: 12.8 [employer]upalo. Care instructions adapted under license by your healthcare professional. If you have questions about a medical condition or this instruction, always ask your healthcare professional. [employer] disclaims any warranty or liability for your [...] groups. These groups include Alcoholics Anonymous and code-laboration (Self-Management and Recovery Training). Some people are [...] counselors, doctors, social workers, nurses, and a corrections caseworker. A corrections caseworker helps plan and manage your treatment. Follow-up care is a kulkarni part of your treatment and safety. Be sure to make and go to all appointments, and call your doctor if you are having problems. It's also a good idea to know your test resultsand keep a list of the medicines you take. Where can you learn more? Go to https://www.ChicPlace.net/patientEd Enter H758 in the search box to learn more about Learning About Alcohol Use Disorder. Current as of: November 26, 2019 Content Version: 12.8 Tupalo. Care instructions adapted under license by your healthcare professional. If you have questions about a medical condition or this instruction, always ask your healthcare professional. [employer] disclaims any warranty or liability for your use of this information. documented in this [facility]05-04-2021 Miscellaneous Notes* Nursing - Lorie Somers RN - 09/30/2020 1:31 PM EDT Work/School Excuse Letter [facility] ([address] [place] [address]) [address] [facility] [id number] September 30, 2020 Patient: Yonathan Fernandez Date of : 1975 Date of Visit: 09/19/2020 To Whom It May Concern: Yonathan Fernandez was seen and treated at [facility] from 09/19/2020 to 09/30/2020. Additional Information: If you have any questions or concerns, please don't hesitate to call. Provider Signature: * D/C Planning - Sharmin Aguero RN - 09/30/2020 1:04 PM EDT Home Health Referral Post discharge services discussed with pt. Educated patient on Home Care and services available. Patient have chosen [facility]. and agreeable to SN PT services. Patient Demographics Name:Yonathan Fernandez Discharge Address: [address] [place] [address] (Home) *Preferred* PCP HYADEN HERRERA Active Insurance as of 09/19/2020 Primary Coverage Payor Plan Insurance Group Employer/Plan Group [id number] Payor Plan Address Payor Plan Phone Number Payor Plan Fax Number Effective Dates [address] [address] 09/19/2018 - None Entered [facility] [address] Subscriber Name Subscriber Date Member ID YONATHAN FERNANDEZ 1975 [id number] Emergency Contact(s) Name Relation Home Work Mobile Shanice Fernandez Mother [phone] None,Provided Primary Telephone # Secondary Telephone # Emergency Contact and # PCP: Hayden Herrera Following Physician:Dr. Monisha Leong Agreeable to Follow: Yes notified Sandhya 09/30 Language/Communication Barrier: No, Primary Diagnosis & Reason for Services Assessment/Plan: Yonathan Fernandez is a 45 y.o. male with a history of CAD, alcohol abuse, and alcohol withdrawal seizures who presented to [facility] 09/19/2020 with seizure-like activity witnessed [...] Pt has not followed up with a tyre fitter since 2019, referral as an outpatient upon discharge. 9. Hypertension: Home meds 10. Hyperlipidemia: Continued home Lipitor as able 11. Alcohol abuse and dependence: client services representative consulted for information regarding rehabilitation [...] Wounds, Infusions etc.): Additional Comments: Referral source: 3s/[facility] DISCHARGE DATE: 09/30 OK for SOC 24-48 ? Yes Computer Hardware Technician and/or Liaison Name Sharmin * D/C Planning [...] Estimated Energy Needs Total Energy Estimated Needs: 3718-4283 kcal Method for Estimating Needs: 25-30 kcal/kg [...] subsequent to initial labs (refer to the [facility] Electrolyte Replacement Orders) gabapentin (NEURONTIN) capsule [...] RLE Edema: None * Rehab Therapies - Yunior [id number], MALI [place]-WEATHER STRIP INSTALLER - 09/29/2020 9:42 AM EDT VIDEO FLUOROSCOPIC SWALLOW STUDY Patient Name: Yonathan Fernandez Results: No penetration or aspiration noted [...] Liquids Consistencies Assessed: Varibar Thin Liquid, Varibar Talent Liquid, Varibar Thin Honey Liquid, Varibar Pudding [...] Scale:Material does not enter airway Treatment Duration: 3044-8406 (25 Minutes) Afsaneh Leon CCC-FLORENTIN 09/29/2020 9:42 AM 'The actual video for this VFSS is located in the radiology department for the duration of the patient's stay' * D/C Planning - Andre Hubbard RN - 09/29/2020 9:25 AM EDT FWW order has been placed awaiting physician signature. No other needs from identified at this time. D/C plan remains for patient to return home with his mother and a FWW Walker order signed and sent to [facility]. * Pharmacy Note - Leny Vasquez PharmD - 09/29/2020 6:59 AM EDT Pharmacy Dose Adjustment Dose adjustment per policy Serum creatinine: 0.64 mg/dL (L) 09/28/20 0634 Estimated creatinine clearance: 119.5 mL/min (A) Zosyn adjusted to q6 hrs for CrCl >60 mL/min. Thank you, Leny Vasquez PharmD * Rehab Therapies - Billy [id number], MS Francine [facility]-WEATHER STRIP INSTALLER - 09/28/2020 1:07 PM EDT Name: Yonathan Fernandez CAT: [id number] Dysphagia tx completed. Impressions: Patient significantly improved compared to yesterday. When WEATHER STRIP INSTALLER arrived, patient was pleasant and greeting WEATHER STRIP INSTALLER with a clear, strong voice. Patient still [...] very impulsive and take very large bites. WEATHER STRIP INSTALLER reviewed recommendations and VFSS, with patient agreeing to the same. Recommendations: regular, thin liquids, medication as tolerated, please make NPO if patient has decline in respiratory status, and will proceed with VFSS tomorrow to dynamically assess the pharyngealphase of the swallow. Communicated same to RN. Thank you 09/28/20 0893 Physician Order Physician Order Swallowing Swallowing Current [...] S/Sx of aspiration Oral Care After Meals. WEATHER STRIP INSTALLER Procedure Charges Swallowing/Dysphagia Treatment < 1 hour Time Calculation Start Time 1045 Stop Time 1105 Time Calculation 20 Speech Education Education Patient Therapy Schedule Yes Compensatory Strategies Yes Diet Recommendations Yes Discharge Recommendations Yes Rationale for Therapy/Recommendations Yes Electronically signed by Francine Oliveros MS [facility]-WEATHER STRIP INSTALLER at 09/28/2020 1:10 PM EDT * D/C Planning - Ciara Frey RN - 09/28/2020 11:43 AM EDT Patient plans to return home with his mother at discharge. Patient states that his mother will pickhim up at discharge. Patient would like FWW ordered at discharge from [facility] per therapy recommendations. * Plan of Care [...] Medical-Surgical Nursing: Patient-Centered Collaborative Care. 7th ed, [place]: [place] 2) Cerebrovascular Accident (CVA), Last Revised: Jun 23, 2011, Contributed by Francie Broussard, ERIK, MS Outcome: Progressing Problem: 10-Potential for Substance Withdrawal Goal: A-Verbalizes signs/symptoms of withdrawal Outcome: Progressing Goal: B-Reports signs/symptoms of withdrawal Outcome: Progressing Goal: C-Free of withdrawal symptoms Outcome: Progressing * Rehab Therapies - Billy [id number], MS Francine [facility]-WEATHER STRIP INSTALLER - 09/27/2020 12:07 PM EDT Name: Yonathan Fernandez CAT: [id number] Dysphagia tx completed. Impressions: Per discussion with RN, patient was suctioned yesterday evening. Patient continues to require 10L of HFNC this date. Initially, patient did not observe to have wet respirations as reported by previous WEATHER STRIP INSTALLER; however, following a couple of minutes of patient talking with WEATHER STRIP INSTALLER, patient did note to have a wet [...] clear secretions and improve his vocal quality, WEATHER STRIP INSTALLER explained reasoning for initiating ice chip protocol only. Patient was educated but WEATHER STRIP INSTALLER suspects that patient does not comprehend same [...] progress) Comments (SOAP note) Dysphagia tx completed WEATHER STRIP INSTALLER Procedure Charges Swallowing/Dysphagia Treatment < 1 hour Time Calculation Start Time 1000 Stop Time 1020 Time Calculation 20 Speech Education Education No family available Electronically signed by Francine Oliveros, [facility]-WEATHER STRIP INSTALLER at 09/27/2020 12:13 PM EDT * Nursing - Jefry Miner RN - [...] to the unit at this time from [address] [place] [address]. 2 side rails up. Call light within reach. Vital signs stable at this time. No acute distress noted. Will continue to monitor * Nursing - Coutrney Carrizales RN - 09/26/2020 3:45 PM EDT Patient transported to ; chart, meds, and CVS monitor accompanied patient. Ba VALENCIA at bedside. * Rehab Therapies - Sherri Iraheta CCC-WEATHER STRIP INSTALLER - 09/26/2020 2:36 PM EDT Name: Yonathan Fernandez CAT: [id number] Dysphagia tx attempted. Per chart, pt's respiratory status declined this AM and pt is now on 15L NRB. WEATHER STRIP INSTALLER did meet with pt to re-assess swallow but pt's vocal quality remains gurgly and muffled. RN also notes they are suctioning thick secretions from mouth but pt has refused deep suction. WEATHER STRIP INSTALLER did not attempt re-assessmentas pt is not appropriate. WEATHER STRIP INSTALLER continues to recommend strict NPO with non-oral meds and frequent oral care. Will re-attempt on 09/27 if pt is able. Thank you. * D/C Planning - Anahy Avitia Production Control Analyst - 09/26/2020 1:34 PM EDT Per nsg [...] reports diet changed to NPO due to WEATHER STRIP INSTALLER eval Malnutrition Assessment/Nutrition Diagnosis: Meets ASPEN criteria [...] Weight on admission was within usual per Epic weight history. NPO per WEATHER STRIP INSTALLER. Will follow and provide nutrition intervention per appropriate means. Enteral nutrition appropriate if unable to returnto PO diet within 48 hrs. Epic Weight History: 05/01/20- 130# 08/13/19- 140# Anthropometric Measurements: Height: 5' 4 (162.6 cm) Weight: 63.9 kg (140 lb 14.4 oz) BMI (Calculated): 24.17 Estimated Nutritional Needs: Estimated Energy Needs Total Energy Estimated Needs: 9137-6873 kcal Method for Estimating Needs: 25-30 kcal/kg [...] 106 (H) 09/26/2020 0557 POCGLU 153 (H) 09/19/2020 2208 BUN 16 09/26/2020 0557 CREATININE 1.03 09/26/2020 0557 K 3.8 09/26/2020 0557 PHOS 2.8 09/21/2020 0441 MG 1.9 09/22/2020 0605 NA 134 (L) 09/26/2020 0557 HGB 12.1 (L) 09/26/2020 0557 HGBA1C 4.6 09/21/2020 0441 GFR >60 09/26/2020 0557 Pertinent Medications: Current [...] subsequent to initial labs (refer to the [facility] Electrolyte Replacement Orders) gabapentin (NEURONTIN) capsule [...] Color (WDL): Within Defined Limits Skin Color: [place] Skin Integrity (WDL): Within Defined Limits Skin [...] None * D/C Planning - Anahy Avitia Production Control Analyst - 09/26/2020 11:35 AM EDT Spoke with [...] AM EDT Asked to see patient per Podopediatrician. Pt presents with course rhonchi audible from [...] continue to monitor * Nursing - Kaylee uEceda RN - 09/26/2020 5:10 AM EDT Patient [...] tolerated well the IV medications. * Nursing - Kaylee Euceda RN - 09/26/2020 2:47 AM EDT Doctor Naeem came in to see the patient and no new orders at this time, and the patient should be kept on the non-re breather and run the IV ATB and tylenol as ordered. * Nursing - Larissa Oneil RN - 09/26/2020 1:00 [...] sat up to 95%. Dr. whitaker of [facility] notified about the patient condition and [...] Patient with no current 1:1 sitter order. open hearth stockyard supervisor suggest [facility] to monitor patient at this time. Primary [...] tried multiple times this shift and the [address] [place] [address] R/T tried to do a deep secretion in which the patient became agitated and was cussing. * D/C Planning - Anahy Avitia Production Control Analyst - 09/25/2020 4:21 PM EDT Per nsg pt status has changed and he is going to have more testing done. Will follow for dcp needs. * Nursing - Miladys Rizzo RN - 09/25/2020 3:[address] Lund on CXR results and MRI will be done later this evening. * Nursing - Miladys Rizzo RN - 09/25/2020 2:54 PM EDT Called down to MRI they won't be up until later this evening to perform MRI. * Rehab Therapies - Amilcar Birmingham1Sherri CCC-WEATHER STRIP INSTALLER - 09/25/2020 2:28 PM EDT Name: Yonathan Fernandez CAT: [id number] Initial dysphagia evaluation completed. Impressions: Pt with h/o CAD and alcohol abuse admitted with seizure-like activity. Pt initially passed BSS and was tolerating PO, but demonstrated worsening cough and vocal quality therefore ST was consulted. Upon WEATHER STRIP INSTALLER arrival this date, pt was resting in bed but was alert. WEATHER STRIP INSTALLER immediately noted wet respirations and vocal quality, [...] s/t pt's inability to manage his secretions. WEATHER STRIP INSTALLER explained recommendations and rationale for same, but pt did not demonstrate understanding. Recommendations: WEATHER STRIP INSTALLER to recommend NPO with non-oral medications and frequent oral care. Will initiate tx per POC while pt remains hospitalized and proceed with VFSS when pt is appropriate. RN aware of recommendations. Thank you! 09/25/20 8580 Physician Order Physician Order Swallowing Swallowing Current [...] vocal quality therefore ST was consulted. Upon WEATHER STRIP INSTALLER arrival this date, pt was resting in bed but was alert. WEATHER STRIP INSTALLER immediately noted wet respirations and vocal quality, [...] s/t pt's inability to manage his secretions. WEATHER STRIP INSTALLER ex plained recommendations and rationale for same, but pt did not demonstrate understanding. Session Information Chart Review Completed Pain Assessment No Pain Reported Discharge Recommendations (Pending) Comments (SOAP note) IE - Dysphagia Plan of Care Skilled Services Required Yes Type of Treatment Dysphagia Therapy Dysphagia Therapy Oral Motor Exercise;Laryngeal/pharyngeal strengthening exercises;Thermal stimulation/DPNS;Therapeutic Trial Upgrades;Compensatory Strategy education Frequency 3x/week Duration 2 weeks Prognosis Fair WEATHER STRIP INSTALLER Procedure Charges Swallowing/Dysphagia Evaluation 1 Procedure Time Calculation Start Time 1325 Stop Time 1340 Time Calculation 15 Goals Goals - Oral Phase WFL;Mild/Minimal Impairment Goals - Pharyngeal Phase Mild/Minimal Impairment Speech Education Education No family available Documentation type Documentation: Initial * Nursing - Miladys Rizzo, ERIK - 09/25/2020 2:10 PM EDT Patient refused [...] a 1:1 sitter at the bedside. * Renata - Denisse Galvan RN - 09/25/2020 10:00 AM EDT [employer] calls to set up a time for consult between 2 pm and 5 pm call back. Hope to have MRI completed prior to this time. Mother, Shanice, is available at [phone] * Renata - Gina Chester RN - 09/25/2020 1:41 AM EDT [place] Yonathan talking in room. Stated he was talking to his . I asked the [facility] questions in whichhe had denied all and was able to do serials. Stated he is not hallucinating and he always talks tohis . Stated she from an over dose years ago and it was the hardest thing to tell his kidsand he has not been doing well with her .. * Renata - Gina Chester RN - 09/25/2020 12:30 [...] no further issues at this time. * Renata - Gina Chester RN - 09/24/2020 9:30 [...] monitor. * D/C Planning - Anahy Avitia Production Control Analyst - 09/24/2020 1:10 PM EDT Met with [...] the past. * Nursing - Gina Chester RN - 09/24/2020 3:06 AM EDT Pt has [...] SOC to read. * Nursing - Varsha Colon, ERIK - 09/23/2020 5:23 AM EDT Focus assessment completed at this time. Patient in bed, restless and agitated. Patient continues to have hallucinations. Patient medicated with PRN medication per JUL. 1:1 sitter at bedside * D/C Planning - Anahy Avitia, Production Control Analyst - 09/22/2020 5:12 PM EDT CM Initial Discharge Planning Yonathan Fernandez 1975 Met with Yonathan Fernandez at Bedside. Yonathan Fernandez actively participated in the Discharge Planning Process Comments: Pt unable to verbalize family or emergency contact info, none on chart. Pt noted diff answering questions. Rx+ [address] Father will provide transportation. Drug and [...] Agency Involvement: None Have you served in [employer] services: No Who will provide transportation?: (tbd) [...] Family/Caregiver Initial Discharge plan mutually acceptable to patient/family/corrections caseworker?: Yes % Social Pura Murray The patient has the right to participate in the development and implementation of his plan of care.The patient or his credit and collections representative (as allowed under State law) has the right to make informed decisions regarding his discharge plan. The patient's right includes being involved in care planning and treatment. * D/C Planning - Anahy Avitia Social Worker - 09/22/2020 5:07 PM EDT 09/22/20 1705 Alcohol use Disorders Identification Test (AUDIT) 1. [...] drug and alcohol resources with education. * Denisse Harris RN - 09/22/2020 4:38 PM EDT CIWA [...] instead of just the alcohol withdrawal. * Autumn Khan RN - 09/22/2020 11:[address] Jacobson at bedside. * Autumn Khan RN - 09/22/2020 10:12 AM EDT Patient [...] Patient being aggressive with staff. medicated by night club manager nurse at this time. See MAR. Bedside report taken at this time. Call light in reach * Renata - Talisha Sierra RN - 09/22/2020 7:00 AM EDT Ultrasound calls up to verify that patient has been NPO since midnight, US aware that pt has had sips with meds, states that is okay and to keep pt NPO until ultrasound of liver is complete. NPO order placed * Nursing - Talisha Sierra RN - 09/22/2020 5:56 AM EDT Patient resting in bed at this time with eyes closed, CVS remains in place but pt gets very agitated when CVS speaks to him, CVS asked to call nursing staff if not an emergency. Mother was updated earlier in the shift. * Renata - Talisha Sierra RN - 09/21/2020 9:59 PM EDT Patient [...] wanted.Mother states he is to be in [facility] court on Tuesday for a ankle [...] bed. Told the Doctor he was in [place], the month was May, and didnot know [...] bed, lightly snoring after getting the Ativan, CVS remains in the room to watch for safety reasons, bed alarm in place. * Nursing - Gina Chester RN - 09/21/2020 6:[address] Whitaker notified of K+ level of 2.9. stated to follow electrolye protocol orders for K+ replacement. Renal panel recently completed and stated no EKG at this time. * Renata - Gina Chester RN - 09/21/2020 1:46 AM EDT Stirring [...] within reach. Will continue to monitor. * Renata - Gina Chester RN - 09/21/2020 12:17 AM EDT Pt thrashing around in bed. Trying to reach something on the bedside table and knocked it to the floor. Noted he had pulled the IV in his hand out. Dressing applied. Encouraged to relax and get some sleep. Will continue to monitor. * Renata - Gina Chester RN - 09/20/2020 11:57 [...] monitor for medication effectiveness. * Nursing - Gina Chester RN - 09/20/2020 11:10 [...] monitor for medication effectiveness. * Nursing - Gina Chester RN - 09/20/2020 9:10 [...] under observation status secondary to seizure-like activity. [facility] as/medical chart. Patient reports of pain in [...] Provided by:: Patient Prior Function Level of [place]: Independent with ADLs;Independent with functional mobility;Independent with [...] calling of his name. * Nursing - Denises Galvan RN - 09/20/2020 10:25 AM EDT [...] with transport staff for transfer to room [facility]. * Nursing - Flip Mares RN - 09/20/2020 10:03 AM EDT Report called to Denisse [facility] on [address] [place] [address]. * Nursing - Flip Mares RN - 09/20/2020 9:15 AM EDT Attempted to call transfer report to [address] [place] [address]. They state that they cannot take it at this time and will call this nurse back in a few minutes. * Nursing - Flip Mares RN - 09/20/2020 8:35 AM EDT This nurse contacted patient's mother Shanice at [phone] who correlates patient's answers to theMRI checklist. [...] concerns at this time. documented in this [facility]05-04-2021 Hospital course Narrative* Ángel Rodríguez MD - 09/30/2020 1:11 PM EDT [facility] Medicine / [facility] Discharge Summary Yonathan Fernandez Account: [id number] Admitted: 09/19/2020 Discharge Date/Time: 09/30/20 / 1:11 PM Handoff to PCP PCP to address the following 1. This follow-up potassium and magnesium levels 2. Please follow-up on resolution of aspiration pneumonia Clinical Summary Yonathan Fernandez is a 45 y.o. male with a history of CAD, alcohol abuse, and alcohol withdrawal seizures who presented to [facility] 09/19/2020 with seizure-like activity witnessed [...] Pt has not followed up with a tyre fitter since 2018, referral as an outpatient upon discharge. 9. Hypertension: Home meds 10. Hyperlipidemia: Continued home Lipitor as able 11. Alcohol abuse and dependence: client services representative consulted for information regarding rehabilitation [...] Family: Hayden Herrera APRN CNP, , Address: [address] [place] [address] / [place] [id number] Follow Up: Homecare, [facility] [address] [place] [address] [facility] [address] [address] Hayden Herrera APRN CNP [address] [place] [address] [facility] [address] [place] [address] Ambulatory referral to Home Health For more detailed information including patient medical records, please contact [phone] or go to [email or web address] Patient instructions, including activity, were given to the patient/family at discharge. Please seethe After Visit Summary in the medical record for details. Time spent on discharge: > 30 Minutes Completed by: Ángel Rodríguez on 09/30/20, 1:11 PM documented in this [facility]05-04-2021 History of Present illness Narrative* Ángel Rodríguez MD - 09/30/2020 12:52 PM EDT [facility] Medicine / [facility] Inpatient Progress Note 09/30/2020 Yonathan Fernandez 1975 [id number] Assessment/Plan: Yonathan Fernandez is a 45 y.o. male with a history of CAD, alcohol abuse, and alcohol withdrawal seizures who presented to [facility] 09/19/2020 with seizure-like activity witnessed [...] Pt has not followed up with a tyre fitter since 2018, referral as an outpatient upon discharge. 9. Hypertension: Home meds 10. Hyperlipidemia: Continued home Lipitor as able 11. Alcohol abuse and dependence: client services representative consulted for information regarding rehabilitation [...] Rodríguez MD - 09/29/2020 4:10 PM EDT [facility] / [facility] Inpatient Progress Note 09/29/2020 Yonathan Fernandez 1975 [id number] Assessment/Plan: Yonathan Fernandez is a 45 y.o. male with a history of CAD, alcohol abuse, and alcohol withdrawal seizures who presented to [facility] 09/19/2020 with seizure-like activity witnessed by the patient's mother in the context of alcohol withdrawal. Patient was initially admitted to the CDU. Hospital course complicated by aspiration pneumonia and AHRF - transferred to [facility] on 09/26/20. Slowly improving 1. Acute Hypoxic Respiratory Failure: Worsened resp status in the evening of 09/25/20 likely due to aspiration. Increased oxygen requirements up to 15L NRB. [facility] COVID negative on 09/26/20. Slowly [...] Pt has not followed up with a tyre fitter since 2018, referral as an outpatient upon discharge. 9. Hypertension: Home meds 10. Hyperlipidemia: Continued home Lipitor as able 11. Alcohol abuse and dependence: client services representative consulted for information regarding rehabilitation [...] to be slow. Has mild difficulty with vpebra-tg-babn exam. Vital signs are normal. The rest [...] Neuro: Alert. Slow, no nystagmus, slightly abnormal bkudad-mg-[id number] worse on the left Psych: Mood appropriate. [...] Lund MD - 09/28/2020 10:20 AM EDT [facility] / [facility] Inpatient Progress Note 09/28/2020 Yonathan Fernandez 1975 [id number] Assessment/Plan: Yonathan Fernandez is a 45 y.o. male with a history of CAD, alcohol abuse, and alcoholwithdrawal seizures who presented to [facility] 09/19/2020 with seizure-like activity witnessed by the patient's mother in the context of alcohol withdrawal. Patient was initially admitted to the CDU. Hospital course complicated by aspiration pneumonia and AHRF - transferred to [facility] on 09/26/20. Slowlyimproving 1. Acute Hypoxic Respiratory Failure: Worsened resp status in the evening of 09/25/20 likely due to aspiration. Increased oxygen requirements up to 15L NRB. [facility] COVID negative on 09/26/20. Slowly [...] Pt has not followed up with a tyre fitter since 2018, referral as an outpatient upon discharge. 9. Hypertension: Initially continued home meds and transitioned to IV meds on 09/27/20. BP contorlled 10. Hyperlipidemia: Continued home Lipitor as able 11. Alcohol abuse and dependence: client services representative consulted for information regarding rehabilitation [...] need him at home. Pt seen b/w [phone] Physical Exam: Visit Vitals BP 132/83 Pulse [...] p.o. better 7. History of CAD with MS; prior PCI with stenting of the proximal [...] call with any questions or concerns, extension [phone]. Thank you. The entirety of the above [...] 6. Hyperlipidemia 7. History of CAD with MS; prior PCI with stenting of the proximal [...] verified, and amended on this date 09/27/2020 (BRODIEA) Plan of care discussed with nursing/staff. CC: [...] Lund MD - 09/27/2020 11:05 AM EDT [facility] Medicine / [facility] Inpatient Progress Note 09/27/2020 Yonathan Fernandez 1975 [id number] Assessment/Plan: Yonathan Fernandez is a 45 y.o. male with a history of CAD, alcohol abuse, and alcoholwithdrawal seizures who presented to [facility] 09/19/2020 with seizure-like activity witnessed by the patient's mother in the context of alcohol withdrawal. Patient was initially admitted to the CDU. Hospital course complicated by aspiration pneumonia and AHRF - transferred to [facility] on 09/26/20. 1. Acute Hypoxic Respiratory Failure: Worsened resp status in the evening of 09/25/20 likely due to aspiration. Increased oxygen requirements up to 15L NRB. [facility] COVID negative on 09/26/20. Treatment as [...] Pt has not followed up with a tyre fitter since 2018, referral as an outpatient upon discharge. 9. Hypertension: Initially continued home meds and transitioned to IV meds on 09/27/20. BP contorlled 10. Hyperlipidemia: Continued home Lipitor as able 11. Alcohol abuse and dependence: client services representative consulted for information regarding rehabilitation [...] aspiration and why he was transferred to [facility], he is not aware that he is on antibiotics and he does not realize that he is on significant oxygen that without it, he would likely desturate and have worsening hypoxia. He is agreeable to stay in the hospital for now but is unhappy about it. Denied chest pain, pressure, SOB. Pt seen b/w [phone] Case d/w RN at bedside Physical Exam: [...] -- -- -- 2.8 Recent Labs Lab 09/21/20440 ALT 25 AST 97* ALKPHOS 115 BILITOT 1.4 Recent Labs Lab 09/21/20440 INR 0.94 * Ayaz Lund MD - 09/26/2020 4:01 PM EDT [facility] Medicine / [facility] In[facility] Progress Note 09/26/2020 Yonathan Nunezell 1975 [id number] Assessment/Plan: Yonathan Fernandez is a 45 y.o. male with a history of CAD, alcohol abuse, and alcoholwithdrawal seizures who presented to [facility] 09/19/2020 with seizure-like activity witnessed [...] Pt has not followed up with a tyre fitter since 2018, referral as an outpatient upon discharge. 9. Hypertension: Continued home meds. BP contorlled 10. Hyperlipidemia: Continued home Lipitor. 11. Alcohol abuse and dependence: client services representative consulted for information regarding rehabilitation [...] had an intermittent cough. Pt seen b/w [phone] Case d/w RN on the floor. Case [...] Q4H [place] amitriptyline 75 mg Oral Nightly atorvastatin 80 [...] Lund MD - 09/25/2020 10:58 AM EDT [facility] Medicine / [facility] Inpatient Progress Note 09/25/2020 Yonathan Fernandez 1975 [id number] Assessment/Plan: Yonathan Fernandez is a 45 y.o. male with a history of CAD, alcohol abuse, and alcoholwithdrawal seizures who presented to [facility] 09/19/2020 with seizure-like activity witnessed [...] Pt has not followed up with a tyre fitter since 2019, referral as an outpatient upon discharge. 7. Hypertension: Continued home meds. BP contorlled 8. Hyperlipidemia: Continued home Lipitor. 9. Alcohol abuse and dependence: client services representative consulted for information regarding rehabilitationafter [...] denied difficulty with swallowing. Pt seen b/w [phone] Case d/w RN on the floor. Physical [...] Lab 09/25/20 0631 09/24/20 0559 09/23/20 0740 HGB 12.8 13.2 13.7 HCT 37.9 38.9 40.1 PLT 226.0 182.0 154.0 Recent Labs Lab 09/25/20 0631 09/24/20 0559 09/23/20 0740 09/21/20 0441 09/19/20 2211 NA 133* 132* 134* 132* 131* K [...] Lund MD - 09/24/2020 10:34 AM EDT [facility] Medicine / [facility] Inpatient Progress Note 09/24/2020 Yonathan Zaire Fernandez 1975 [id number] Assessment/Plan: Yonathantaisha Fernandez is a 45 y.o. male with a history of CAD, alcohol abuse, and alcoholwithdrawal seizures who presented to [facility] 09/19/2020 with seizure-like activity witnessed [...] Pt has not followed up with a tyre fitter since 2018, referral as an outpatient upon discharge. 6. Hypertension: Continued home meds. BP contorlled 7. Hyperlipidemia: Continued home Lipitor. 8. Alcohol abuse and dependence: client services representative consulted for information regarding rehabilitationafter [...] pain, pressure, SOB, N/V/F/C Pt seen b/w [phone] Case d/w RN on the floor. Physical [...] Lund MD - 09/23/2020 10:23 AM EDT [facility] Medicine / [facility] Inpatient Progress Note 09/23/2020 Yonathan Fernandez 1975 [id number] Assessment/Plan: Yonathan Fernandez is a 45 y.o. male with a history of CAD, alcohol abuse, and alcoholwithdrawal seizures who presented to [facility] 09/19/2020 with seizure-like activity witnessed [...] Pt has not followed up with a tyre fitter since 2018, referral as an outpatient upon discharge. 6. Hypertension: Continued home meds. BP contorlled 7. Hyperlipidemia: Continued home Lipitor. 8. Alcohol abuse and dependence: client services representative consulted for information regarding rehabilitationafter [...] ROS due to encephalopathy Pt seen b/w [phone]. Case d/w RN on the floor. Physical [...] Recent Labs Lab 09/23/20 0740 09/22/20 0605 09/21/2044009/19/202210 NA 134* 133* 132* 131* K 4.0 4.1 2.9* 3.0* CL 102 105 102 96 BUN 10 6* 5* 9 CREATININE 0.63* 0.60* 0.56* 0.58* CALCIUM 9.3 9.2 8.5 9.4 LABALBU -- -- 3.9 4.7 PHOS -- -- 2.8 -- Recent Labs Lab 09/21/2044009/19/202210 ALT 25 35 AST 97* 75* ALKPHOS 115 133* BILITOT 1.4 1.3 Recent Labs Lab 09/21/20440 INR 0.94 * Samreen Jacobson MD - 09/22/2020 3:52 PM EDT [facility] / [facility] Inpatient Progress Note 09/22/2020 Yonathan Fernandez 1975 [id number] Assessment/Plan: Yonathan Fernandez is a 45 y.o. male with a history of CAD, alcohol abuse, and alcoholwithdrawal seizures who presented to [facility] 09/19/2020 with seizure-like activity witnessed by the patient's mother in the context of alcohol withdrawal. Patient was initially admitted to the CDU. 1. Alcohol withdrawal with seizure-like activity: pt was on Phenobarbital taper, switched to Librium taper on 09/22/20, continue CIWA protocols and supportive care, folic acid, thiamine, seizure and aspiration precautions, social worker aide consulted for alcohol audit. 2. Severe hypokalemia: replace per electrolyte protocols, started on K-Dur 40meq daily. 3. Hypomagnesemia: Replace and monitor. 4. Coronary artery disease: s/p PCI to pRCA and dRCA (04/2019). Continued home DAPT, statin, BB, and ACEi. Pt has not followed up with a tyre fitter since 2019, referral as an outpatient upon discharge. 5. Hypertension: Continue home meds 6. Hyperlipidemia: Continue Lipitor. 7. Alcohol abuse and dependence: client services representative consulted for information regarding rehabilitationafter [...] reviewed: Recent Labs Lab 09/22/20 0604 09/21/20 04409/20/20 06 HGB 13.5 12.6* 11.8* HCT 40.0 37.3* 34.5* PLT 111.0* 94.0* 98.0* Recent Labs Lab 09/22/20 0605 09/21/20 0441 09/20/20 0601 09/19/202210 NA 133* 132* 135 131* K 4.1 2.9* 2.9* 3.0* CL 105 102 105 96 BUN 6* 5* 6* 9 CREATININE 0.60* 0.56* 0.46* 0.58* CALCIUM 9.2 8.5 8.2* 9.4 LABALBU -- 3.9 -- 4.7 PHOS -- 2.8 -- -- Recent Labs Lab 09/21/20 04409/19/202210 ALT 25 35 AST 97* 75* ALKPHOS 115 133* BILITOT 1.4 1.3 Recent Labs Lab 09/21/20440 INR 0.94 * Samreen Jacobson MD - 09/21/2020 4:08 PM EDT [facility] Medicine / [facility] Inpatient Progress Note 09/21/2020 Yonathan Fernandez 1975 [id number] Assessment/Plan: Yonathan Fernandez is a 45 y.o. male with a history of CAD, alcohol abuse, and alcoholwithdrawal seizures who presented to [facility] 09/19/2020 with seizure-like activity witnessed by the patient's mother in the context of alcohol withdrawal. Patient was initially admitted to the CDU. 1. Alcohol withdrawal with seizure-like activity: Phenobarbital taper, continue CIWA protocols and supportive care, folic acid, thiamine, seizure and aspiration precautions. EEG ordered. social worker aide consulted for alcohol audit. 2. Severe hypokalemia: replace per electrolyte protocols, started on K-Dur 40meq twice daily. 3. Hypomagnesemia: Replace and monitor. 4. Coronary artery disease: s/p PCI to pRCA and dRCA (04/2019). Continued home DAPT, statin, BB, and ACEi. Pt has not followed up with a tyre fitter since 2019, referral as an outpatient upon discharge. 5. Hypertension: Continue home meds 6. Hyperlipidemia: Continue Lipitor. 7. Alcohol abuse and dependence: client services representative consulted for information regarding rehabilitationafter [...] Imaging and Studies reviewed: Recent Labs Lab 09/21/20 0441 04/60009/19/202210 HGB 12.6* 11.8* 14.4 HCT 37.3* 34.5* 41.4 PLT 94.0* 98.0* 111.0* Recent Labs Lab 09/21/2044009/20/2060009/19/202210 NA 132* 135 131* K 2.9* 2.9* 3.0* CL 102 105 96 BUN 5* 6* 9 CREATININE 0.56* 0.46* 0.58* CALCIUM 8.5 8.2* 9.4 LABALBU 3.9 -- 4.7 PHOS 2.8 -- -- Recent Labs Lab 09/21/2044009/19/202210 ALT 25 35 AST 97* 75* ALKPHOS 115 133* BILITOT 1.4 1.3 Recent Labs Lab 09/21/20440 INR 0.94 documented in this [facility]04-30-2021 Consult note* Duarte Infante, DO - 09/26/2020 11:44 AM EDT Associated [...] albuterol 2.5mg-ipratropium 0.5mg/3ml 3 mL Nebulization Q4H [place] amitriptyline 75 mg Oral Nightly atorvastatin 80 [...] Value Date/Time PHART 7.425 09/26/2020 10:55 AM [id number] 31.9 (L) 09/26/2020 10:55 AM PO2ART 82.9 09/26/2020 10:55 AM O2HB 95.1 09/26/2020 10:55 AM HEMATOCRITAB 42 09/26/2020 10:55 AM METHB 0.5 09/26/2020 10:55 AM FDU7TBW 20.5 (L) 09/26/2020 10:55 AM SODIUMABG 131.6 [...] SYNTAX, AND TYPOGRAPHICAL ERRORS. documented in this [facility]04-24-2021 History and physical note* Arjun Leon NP - 09/20/2020 8:47 AM EDT [facility] / [facility] History and Physical 09/20/20 Yonathan Fernandez 1975 [id number] Assessment/Plan: Yonathan Fernandez is a 45 y.o. male with a history of coronary artery disease, hypertension, hyperlipidemia, hepatic encephalopathy, alcohol abuse, and alcohol withdrawal seizures who presented to [facility] 09/19/2020 with seizure-like activity witnessed by the patient's mother in the context of alcohol withdrawal. Patient was initially admitted to the CDU before being transferred to the inpatient setting.[facility] was asked to take over management relating to the patient's alcohol withdrawal 1. Alcohol withdrawal with seizure-like activity: Longstanding history of alcohol abuse with witnessed withdrawal seizures and withdrawal related delusions on previous admissions. Maintain seizure precautions. Continue CIWA protocols and supportive care. Daily folic acid, thiamine, and multivitamin. client services representative consulted for alcohol audit. 2. Hypokalemia: We will replace per electrolyte protocols and repeat potassium level in the morning 3. Hypomagnesemia: 2 g of mag sulfate to be administered. Repeat mag level in the morning 4. Coronary artery disease: s/p PCI to pRCA and dRCA (04/2019). Continued home DAPT, statin, BB, and ACEi. Previously followed with Dr. Mcgrath following his left heart catheterization and PCI. However, has not followed up with a tyre fitter since 2018. Would benefit from a referral after discharge for reestablishment of care 5. Hypertension: Continue home meds 6. Hyperlipidemia: Continue high intensity statin therapy 7. Alcohol abuse and dependence: client services representative consulted for information regarding rehabilitationafter [...] and alcohol withdrawal seizures who presented to [facility] 09/19/2020 with seizure-like activity witnessed [...] before being transferred to the inpatient setting. [facility] was asked to take over management relating [...] Friends and Family: Not on file Attends Taoist Services: Not on file Active Member of [...] Imaging, and Studies reviewed: Recent Labs Lab 09/20/20 0609/19/202210 HGB 11.8* 14.4 HCT 34.5* 41.4 PLT 98.0* 111.0* Recent Labs Lab 09/20/20 0609/19/202210 NA 135 131* K 2.9* 3.0* CL [...] and alcohol withdrawal seizures who presented to [facility] 09/19/2020 with seizure-like activity witnessed [...] once little awake. ETOH abuse:Multiple admissions for same.client services representative consulted for information regarding rehabilitation after discharge/community resources Mild elevation of AST/ALT:Due to ETOH,Monitor. * Arjun Bahena APRN CNP - 09/19/2020 11:19 PM EDT [facility] HISTORY & PHYSICAL Date of Admission: 09/19/2020 Date of Service: 09/19/2020 PCP: Hayden Herrera APRN CNP Room: ED15/15 [facility] CHIEF COMPLAINT: Seizures (possible) HISTORY OF PRESENT ILLNESS Yonathan Fernandez is a 45 y.o. male presented to [facility] Emergency Department was evaluated and subsequently admitted [...] department included CBC, chemistry, ammonia, serum ethanol, tborn-ii-oghu glucose, CT head without contrast and an [...] normal muscle tone. He has a normal Jmlrsi-Njkm-Lkvxsj Test and a normal Heel to Stewart [...] as described. Lab Review Recent Labs Lab 09/19/202210 HGB 14.4 HCT 41.4 WHITEBLOODCE 8.6 PLT 111.0* NA 131* K 3.0* CL 96 CO2 19* BUN 9 CREATININE 0.58* GLU 144* CALCIUM 9.4 No results for input(s): CK, CKMB, TROPONINI in the last 168 hours. Recent Labs Lab 09/19/202210 ALKPHOS 133* BILITOT 1.3 AST 75* ALT [...] with collaborating physician Dr. Dubon Signed: Arjun Bahena CORPORATE TRAINER-C, AGAVERONICAP- BC, [employer] [facility] 09/19/2020 11:19 PM Associated [...] decision making plan verbally with the midlevel, TECHNICAL SME that led to the disposition, treatment, and [...] 7.1 (*) Absolute Lymph 0.6 (*) Absolute [place] 0.8 (*) All other components within normal [...] 98.0 (*) Absolute Lymph 0.8 (*) Absolute [place] 0.7 (*) All other components within normal [...] will continue to monitor [facility] Note* Daniela Bautista MST - 09/19/2020 11:18 PM EDT 1201 clean * Kathy Gates RN - 09/19/2020 11:08 PM EDT Pt attempting to call mother at this time * Daniela Bautista MST - 09/19/2020 10:58 PM EDT Please call Mom with questions Shanice [phone] * Kevon Guadarrama MD - 09/19/2020 10:10 [...] 7.1 (*) Absolute Lymph 0.6 (*) Absolute [place] 0.8 (*) All other components within normal [...] Procedures Medical Decision Making Kevon Guadarrama MD 09/19/202321 * Kathy Gates RN - 09/19/2020 10:03 [...] - 09/19/2020 10:02 PM EDT Bed: 15 GHED Expected date: 09/19/20 Expected time: 9:53 PM Means of arrival: [facility] Department Comments: EMS called for possible seizure like activity Confusion and repeating self [facility]* Diagnosis Seizure-like activity (HCC)- Primary Other convulsions Loss of consciousness (HCC) Other alteration of consciousness Hypokalemia Hypopotassemia Ataxia Lack of coordination Pneumonia of both lower lobes due to infectious organism Atypical chest pain Other chest pain Alcohol withdrawal (HCC) Alcohol withdrawal Tobacco abuse Tobacco use disorder Gastroesophageal reflux disease without esophagitis Esophageal reflux documented in this encounter [facility] note* Diagnosis Seizure-like activity (HCC) Other convulsions Alcohol withdrawal syndrome with complication (HCC) 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) documented in this encounter [facility] note* Diagnosis Acute chest pain- Primary Chest pain, unspecified Chest pain, unspecified type Hypomagnesemia Disorders of magnesium metabolism Hypokalemia Hypopotassemia Alcohol withdrawal syndrome, with delirium (HCC) Tobacco abuse Tobacco use disorder Alcohol abuse Alcohol abuse, unspecified Coronary artery disease involving [place] coronary artery of [place] heart with angina pectoris (HCC) Elevated lipase Other nonspecific abnormal serum enzyme levels Acute alcohol intoxication, uncomplicated (HCC) documented in this encounter [facility] note* Diagnosis Alcoholic ketoacidosis- Primary Acidosis Alcohol withdrawal delirium (HCC) Alcohol withdrawal delirium Acute kidney injury (HCC) Acute kidney failure, unspecified Hypokalemia Hypopotassemia Alcohol abuse Alcohol abuse, unspecified Seizure disorder (HCC) Unspecified epilepsy without mention of intractable epilepsy Coronary artery disease involving [place] coronary artery of [place] heart with angina pectoris (HCC) Gastroesophageal reflux disease without esophagitis Esophageal reflux Tobacco abuse Tobacco use disorder documented in this encounter [facility] note* Diagnosis Hypothermia, initial encounter Alcohol withdrawal syndrome, with delirium (HCC) Other specified hypotension Elevated lactic acid level Other nonspecific abnormal serum enzyme levels Leukocytosis, unspecified type Seizure-like activity (HCC) Other convulsions documented in this encounter [facility] note* Diagnosis Impending pathologic fracture- Primary [facility] Diagnosis 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 [facility]* Diagnosis Impending pathologic fracture 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 cartilage Impending pathologic fracture documented in this encounter [facility] note* Diagnosis 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 Or try alcohol- free beer or virgin [...] of: July 10, 2020 Content Version: 12.9 Tupalo. Care instructions adapted under license by your healthcare professional. If you have questions about a medical condition or this instruction, always ask your healthcare professional. [employer] disclaims any warranty or liability for your [...] the numbers for these national suicide hotlines: 6-738-674-TALK ( ) and 3-884-OPTGPPB ( ). If you or someone you know talks about suicide or feeling hopeless, get help right away. When should you call for help? Call 831 anytime you think you may need emergency [...] Where can you learn more? Go to https://www.ChicPlace.net/patientEd Enter D051 in the search box to learn more about Alcohol Detoxification and Withdrawal: Care Instructions. Current as of: July 10, 2020 Content Version: 12.9 Tupalo. Care instructions adapted under license by your healthcare professional. If you have questions about a medical condition or this instruction, always ask your healthcare professional. [employer] disclaims any warranty or liability for your [...] groups. These groups include Alcoholics Anonymous and code-laboration (Self-Management and Recovery Training). Some people are [...] counselors, doctors, social workers, nurses, and a corrections caseworker. A corrections caseworker helps plan and manage your treatment. Follow-up care is a kulkarni part of your treatment and safety. Be sure to make and go to all appointments, and call your doctor if you are having problems. It's also a good idea to know your test resultsand keep a list of the medicines you take. Where can you learn more? Go to https://www.ChicPlace.net/patientEd Enter H758 in the search box to learn more about Learning About Alcohol Use Disorder. Current as of: July 10, 2020 Content Version: 12.9 Tupalo. Care instructions adapted under license by your healthcare professional. If you have questions about a medical condition or this instruction, always ask your healthcare professional. T[employer]alo disclaims any warranty or liability for your [...] you find help? [facility] Massage Operator. This service from the national Substance Abuse and Mental Health Services Administration can help you find local alcohol treatment services. Search online at findtreatment.samhsa.gov or call 9-758-912-HELP (7410), or TDD . Where can you learn more? Go to https://www.ChicPlace.net/patientEd Enter A011 in the search box to learn more about Learning About Alcohol Withdrawal. Current as of: July 10, 2020 Content Version: 12.9 Tupalo. Care instructions adapted under license by your healthcare professional. If you have questions about a medical condition or this instruction, always ask your healthcare professional. T[employer]alo disclaims any warranty or liability for your use of this information. documented in this encounterGenesis [facility] SystemReason for referral (narrative)* Consultation (Routine) - Open Specialty Diagnoses / Procedures Referred By Sai harkins Referred To Contact Family Medicine Diagnoses Alcoholic ketoacidosis Areli Ariza DO [address] [place] [address] [address] [place] [address] [facility] Adult [address] [place] [address] Referral ID Status Reason Start Date Expiration Date Visits Re quested Visits Authorized [id number] Open 02/22/2021 03/24/2022 1 1 * (Routine) - Incomplete Specialty Diagnoses / Procedures Referred By Sai harkins Referred To Contact Areli Ariza DO [address] [place], [place] [id number] [place] [address] Referral ID Status Reason Start Date Expiration Date V isits Requested Visits Authorized [id number] Incomplete 02/22/2021 03/24/2022 1 1 [facility] (narrative)No reason for referral information availableWOhio[facility] Work Phone: Reason for visit Narrative* Auth/Cert (Routine) Specialty Diagnoses / Procedures Referred By Sai harkins Referred To Contact 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 Joyce Hennessy MD [address] [facility] [address] [place] [address] Phone: tel: fax: [facility] [address] [place] [phone] Phone: tel: Referral ID Status Reason Start Date Expiration Date Visits Re quested Visits Authorized [id number] 1 1 [facility] Reason for Referral Status Reason Specialty Diagnoses / Procedures Referred By Contact Referred To Contact Incomplete Arjun Leon NP [address] [place] [address] Status Reason Specialty Diagnoses / Procedures Re ferred By Contact Referred To Contact Open Cardiac Rehab Diagnoses S/P PTCA (percutaneous transluminal coronary angioplasty) Maxine Alonso PA [address] [facility] 1st [place] [address] [facility] [address] [place] [address] Status Reason Specialty Diagnoses / Procedures Referred By Contact Referred To Contact Incomplete Anahy Bradley MD [address] [place] [address] Status Reason Specialty Diagnoses / Procedures Referred By Contact Referred To Contact Open Specialty Services Required Home Health Services Diagnoses Seizure-like activity (HCC) Ataxia Ángel Rodríguez MD [address] [place] [address] Status Reason Specialty Diagnoses / Procedures Referred By Contact Referred To Contact Authorized Neurology Diagnoses Seizure-like activity (HCC) Ángel Rodríguez MD [address] [place] [address] [facility] [address] [place] [address] Status Reason Specialty Diagnoses / Procedures Referred By Contact Referred To Contact Incomplete Ángel Rodríguez MD [address] [place] [address] Status Reason Specialty Diagnoses / Procedures Referred By Contact Referred To Contact Authorized Cardiology Diagnoses Atypical chest pain Ángel Rodríguez MD [address] [place] [address] [facility] [address] [place] [address] Status Reason Specialty Diagnoses / Procedures Referred By Contact Referred To Contact Magali Gazra PA [address] [place] [address] [address] [place] [address] Status Reason Specialty Diagnoses / Procedures Referred By Contact Referred To Contact Potential Duplicate Home Health Services Diagnoses Chest pain, unspecified type Maxine Soares MD [address] [place] [address] Status Reason Specialty Diagnoses / Procedures Referred By Contact Referred To Contact Open Home Health Services Diagnoses Alcohol withdrawal syndrome, with delirium (HCC) Maxine Soares MD [address] [place] [address] Status Reason Specialty Diagnoses / Procedures Referred By Contact Referred To Contact Incomplete Maxine Soares MD [address] [place] [address] Discharge Instructions * Instructions* Renee Dowd RN [...] Where can you learn more? Go to https://www.ChicPlace.M Squared Films/patientEd. Enter Q672 in the search box to learn more about Percutaneous Coronary Intervention: What to Expect at Home. Current as of: June 25, 2015 Content Version: 11.0 0269-7790 Tupalo. Care instructions adapted under license by your healthcare professional. If you have questions about a medical condition or this instruction, always ask your healthcare professional. Tupalo disclaims any warranty or liability for your [...] is done in a cardiac catheterization laboratory (label pinker). It is done by a environmental remediation specialist called a tyre fitter. The whole procedure may take 1 to [...] Where can you learn more? Go to https://www.ChicPlace.net/patientEd Enter M058 in the search box to learn more about Learning About Percutaneous Coronary Intervention. Current as of: September 05, 2018 Content Version: .3 8926-3573 Tupalo. Care instructions adapted under license by your healthcare professional. If you have questions about a medical condition or this instruction, always ask your healthcare professional. Tupalo disclaims any warranty or liability for your use of this information. ticagrelor Pronunciation: wendie arizmendi or Brand: Delia (ticagrelor) What is the most important information [...] may report side effects to FDA at 2-817-PUA-0956. What other drugs will affect ticagrelor? Sometimes [...] may affect ticagrelor. This includes prescription and czte-glc-wjdzjch medicines, vitamins, and herbal products. Not all [...] to ensure that the information provided by [employer]ee. ('Multum') is accurate, up-to-date, and complete, but no guarantee is made to that effect. Drug information contained herein may be time sensitive. YOUnite information has been compiled for use by healthcare practitioners and consumers in the [place] and therefore YOUnite does not warrant that uses outside of the [place] are appropriate, unless specifically indicated otherwise. [employer] drug information does not endorse drugs, diagnose patients or recommend therapy. [employer] drug information isan informational resource designed to [...] effective or appropriate for any given patient. YOUnite does not assume any responsibility for any aspect of healthcare administered with the aid of information YOUnite provides. The information contained herein is not intended to cover all possible uses, directions, precautions, warnings, drug interactions, allergic reactions, or adverse effects. If you have questions about the drugs you are taking, check with your doctor, nurse or pharmacist. Copyright 5987-2433 Jixee. Version: 3.01. Revision date: 10/04/2017. Care instructions adapted under license by your healthcare professional. If you have questions about a medical condition or this instruction, always ask your healthcare professional. [employer] disclaims any warranty or liability for your [...] you learn more? Go to https://www.healthwise.net/patientEd Enter O319 in the search box to learn more about Learning About Benefits From Quitting Smoking. Current as of: November 30, 2018 Content Version: 12.3 Tupalo. Care instructions adapted under license by your healthcare professional. If you have questions about a medical condition or this instruction, always ask your healthcare professional. Tupalo disclaims any warranty or liability for your use of this information. documented in this encounter* Attachments The following attachments cannot be sent through Care Everywhere. * Chest Pain ([place]izen [place]) documented in this encounter* Attachments The following attachments cannot be sent through Care Everywhere. * Lacerations: Adhesives (Citizen [place]) documented in this encounter* Attachments The following attachments cannot be sent through Care Everywhere. * Chest Pain (Citizen [place]) documented in this encounter* Attachments The following attachments cannot be sent through Care Everywhere. * Bite: Human (Citizen [place]) documented in this encounter* Instructions* Miladys Rizzo [...] the numbers for these national suicide hotlines: 2-599-316-TALK ( ) and 4-493-KULLAIA ( ). If you or someone you [...] Where can you learn more? Go to https://www.ChicPlace.M Squared Films/patientEd Enter D051 in the search box to learn more about Alcohol Detoxification and Withdrawal: Care Instructions. Current as of: November 26, 2019 Content Version: . Tupalo. Care instructions adapted under license by your healthcare professional. If you have questions about a medical condition or this instruction, always ask your healthcare professional. Tupalo disclaims any warranty or liability for your [...] you use any other medicines. This includes sjgw-rac-rqwnmrg medicines. Make sure your doctor knows all of the medicines, vitamins, herbal products, and supplements you take. Taking some medicines together can cause problems. You may need regular blood tests. Where can you learn more? Go to https://www.ChicPlace.net/patientEd Enter P050 in the search box to learn more about Learning About MIKE Inhibitors. Current as of: May 14, 2019 Content Version: 12.6 Tupalo. Care instructions adapted under license by your healthcare professional. If you have questions about a medical condition or this instruction, always ask your healthcare professional. Tupalo disclaims any warranty or liability for your use of this information. documented in this encounter* Attachments The following attachments cannot be sent through Care Everywhere. * Abrasions (Citizen [place]) documented in this encounter History of Present Illness * Arjun Leon NP - 05/15/2019 6:53 AM EST [facility] Medicine / [facility] Inpatient Progress Note 05/15/2019 Yonathan Nunezell [id number] Assessment/Plan: Yonathan Fernandez is a 44 y.o. male with a history of HTN, HLD, nicotine dependence, alcohol abuse, who presented to [facility] 05/14/2019 with c/o acute chest [...]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 Provider: Emory Muaro RN)1655 (Given - Provider: Hilda Sorensen RN) [...] at 1200 1135 (Given - Provider: Flip Herrera, ERIK) Magnesium Oxide (MAG-OX) tablet 800 mg 800 mg, Oral, TWO TIMES A DAY, 3 doses, First dose (after last modification) on Tue02/22/21 at 1800, Last dose on Tue02/23/21 at 1800 1648 (Given - Provider: Flip Herrera RN) Magnesium Sulfate 2g/50ml IVPB 2 g [...] AM 1500 (New Bag - Provider: Hilda Sorensen, ERIK) Metoprolol Tartrate (LOPRESSOR) tablet 25 mg 25 mg, Oral, TWO TIMES A DAY, First dose on Tue02/17/21 at 0115, Until Discontinued, Caution: This medication looks and/or sounds like another medication. 0907 (Given - Provider: Hilda Sorensen RN)2300 (Given - Provider: Jas Ojeda, RN) 0919 (Given - Provider: Flip Herrera, RN)2221 (Given - Provider: Jas Ojeda RN) 0822 (Given - Provider: Flip Herrera, ERIK)2100 (Due) nicotine (NICODERM CQ) 21 MG/24HR 1 patch 1 patch (21 mg), Transdermal, EVERY 24 HOURS SCHEDULED (Daily), First dose on Tue02/17/21 at 0900, Until Discontinued 09 (Patch Applied - Provider: Hilda Sorensen RN) 09 (Patch Removed - Provider: Flip Herrera RN)09 (Patch Applied - Provider: Flip Herrera, ERIK) 08 (Patch Removed - Provider: Flip Herrera, ERIK)08 (Patch Applied - Provider: Flip Herrera RN) pantoprazole (PROTONIX) EC tablet 40 mg 40 mg, Oral, DAILY BEFORE DINNER, First dose on Tue02/17/21 at 0115, Until Discontinued, Caution: Do not crush or chew. 1655 (Given - Provider: Hilda Sorensen RN) 1749 (Given - Provider: Flip Herrera RN) 1648 (Given - Provider: Flip Herrera RN) PHENobarbital (LUMINAL) tablet 30 mg 30 [...] Jas Ojeda RN)1243 (Given - Provider: Flip Herrera RN)1749 (Given - Provider: Flip Herrera RN)2221 (Given - Provider: Jas Ojeda RN) 0537 (Given - Provider: Jas Ojeda RN) [...] in AM 1458 (Given - Provider: Hilda Sorensen RN) potassium chloride SA (K-DUR,KLOR-CON M20) CR tablet 20 mEq (COMPLETED) 20 mEq, Oral, ONCE, 1 dose, On Tue02/22/21 at 0930, If potassium level 3.7-3.9 Repeat potassium in AM 1041 (Given - Provider: Flip Herrera RN) potassium chloride SA (K-DUR,KLOR-CON M20) CR [...] dose on Tue02/21/21 at 0900, Until Discontinued 918 (Given - Provider: Flip Herrera RN) 821 (Given - Provider: Flip Herrera RN) vitamin B-12 (CYANOCOBALAMIN) tablet 1,000 mcg 1,000 mcg, Oral, DAILY, First dose on Tue02/17/21 at 0900, Until Discontinued 907 (Given - Provider: Hilda Sorensen RN) 918 (Given - Provider: Flip Herrera RN) 821 (Given - Provider: Flip Herrera, ERIK) PRN [...] subsequent to initial labs (refer to the [facility] Electrolyte Replacement Orders) Other, DAILY PRN, For electrolyte abnormalities, Starting on Tue02/17/21 at 0017, Until Discontinued, For Potassium level <=3.9 or Magnesium level <=2.0, please use Order Set #100 to order medications and repeat labs. LORazepam (ATIVAN) tablet 2-4 mg(Linked Group 1) 2-4 mg, Oral, EVERY 1 HOUR PRN, Withdrawal, Starting on Tue02/16/21 at 2047, Until Discontinued, CIWA score 8-14 = 2mg [...] Withdrawal, Starting on Tue02/16/21 at 2047, Until Discontinued, CIWA score 8-14 = 2mg [...] Withdrawal, Starting on Tue02/16/21 at 2047, Until Discontinued, CIWA score 8-14 = 2mg [...] 2038 (Given - Provider: Divine Franklin RN) amoxicillin-clavulana te (AUGMENTIN) 875-125 MG per tablet 875 mg 875 mg, Oral, EVERY 12 HOURS SCHEDULED (2 times per day), First dose on Tue07/03/21 at 1030, Until Discontinued, Indications: Aspiration Pneumonia 1057 (Given - Provider: Lakshmi Newton RN)1722 (Given - Provider: Lakshmi Newton RN) 09 (Given - Provider: Sharita Cornejo Nurse)181 (Given - Provider: Sharita Cornejo Nurse) aspirin chewable tablet 81 mg 81 [...] RN) 09 (Given - Provider: Sharita Cornejo Nurse)151 (Given - Provider: Sharita Cornejo Nurse) clopidogrel (PLAVIX) tablet 75 mg 75 mg, Oral, DAILY, First dose on Tue06/25/21 at 0900, Until Discontinued 1225 (Not Given - Provider: Lakshmi Newton RN - Reason: Patient/family refused - Comment: pt refused and gets verbally and physically aggressive when asked to take medication) 09 (Given - Provider: Lakshmi Newton RN) 0907 (Given - Provider: Sharita Cornejo Nurse) folic [...] Lakshmi Newton RN) 0908 (Given - Provider: Sharita Cornejo Nurse) heparin (porcine) injection 5,000 Units 5,000 Units, Subcutaneous, EVERY 12 HOURS SCHEDULED (2 times per day), First dose on Tue06/24/21 at 1929, Until Discontinued 0830 (Given - Provider: Lakshmi Newton RN) 0156 (Not Given - Provider: Amy Brown RN - Reason: Patient/family refused)0412 (Given - Provider: Amy Brown RN)1723 (Given - Provider: Lakshmi Newton RN) 0546 (Given - Provider: Divine Franklin RN)1817 (Given - Provider: Sharita Cornejo Nurse) levETIRAcetam (KEPPRA) 750 mg in sodium [...] Resolved)1722 (Given - Provider: Lakshmi Newton RN) 0907 (Given - Provider: Abdullahi Paulino, Student Nurse)1817 (Given - Provider: Abdullahi Paulino Student Nurse) lisinopril (PRINIVIL,ZESTRIL) tablet 20 mg 20 mg, Oral, DAILY BEFORE LUNCH, First dose on 06/27/21 at 1100, Until Discontinued, Caution: This medication looks and/or sounds like another medication. 1226 (Not Given - Provider: Lakshmi Newton RN - Reason: Patient/family refused - Comment: pt refused and gets verbally and physically aggressive when asked to take medication) 0907 (Given - Provider: Lakshmi Newton RN) 1519 [...] RN)1707 (Rate/Dose Verify - Provider: Lakshmi Newton RN)190 (Rate/Dose Verify - Provider: Amy Brown, ERIK)190 (Rate/Dose Verify - Provider: Amy Brown RN)1936 (Rate/Dose Verify - Provider: Amy Brown RN)1940 (Rate/Dose Verify - Provider: Amy Brown, RN)2016 (Rate/Dose Verify - Provider: Amy Brown RN)2023 (Rate/Dose Verify - Provider: Amy Brown RN)202 (Rate/Dose Verify - Provider: Amy Brown RN) Magnesium Oxide (MAG-OX) tablet 400 mg [...] Lakshmi Newton, ERIK)1130 (Stopped - Provider: Lakshmi Newton, RN) Metoprolol Tartrate (LOPRESSOR) tablet 25 mg [...] Provider: Amy Brown RN - Reason: Patient/family refused)172 (Given - Provider: Lakshmi Newton RN) 09 [...] RN) 0546 (Not Given - Provider: Divine Franklin, RN - Reason: Patient/family refused)1826 (Patient Declined - Provider: Abdullahi Paulino, Student Nurse) potassium chloride 20 mEq in [...] not specified 0822 (Given - Provider: Lakshmi Newton, ERIK)1325 (Not Given - Provider: Lakshmi Newton RN - Reason: Patient/family refused) 0000 (Not Given - Provider: Amy Brown RN - Reason: Patient/family refused - Comment: attempted, pt refused)0908 (Given - Provider: Lakshmi Newton RN)1518 (Given - Provider: Lakshmi Newton RN)2042 (Given - Provider: Divine Franklin, RN) 0910 (Given - Provider: Sharita Cornejo Nurse)1518 (Given - Provider: Sharita Cornejo Nurse)2136 (Not Given - Provider: Divine Franklin RN - Reason: Patient/family refused) senna-docusate (PERICOLACE) 8.6-50 MG per tablet 1 tablet 1 tablet, Oral, TWO TIMES A DAY, First dose on Tue06/24/21 at 1929, Until Discontinued 122 (Not Given - Provider: [...] - Reason: Patient/family refused)1817 (Given - Provider: Sharita Cornejo Nurse) thera vitamin tablet 1 tablet 1 tablet, Oral, DAILY, First dose on Tue06/26/21 at 0945, Until Discontinued 122 (Not Given - Provider: Lakshmi Newton RN - Reason: Patient/family refused) 0909 (Given - Provider: Lakshmi Newton RN) 0907 (Given - Provider: Sharita Cornejo Nurse) Thiamine Mononitrate (VITAMIN B-1) tablet 100 mg 100 mg, Oral, DAILY, First dose on Tue07/01/21 at 0900, Until Discontinued 122 (Not Given - Provider: Lakshmi Newton RN - Reason: Patient/family refused) 09 (Given - Provider: Lakshmi Newton RN) 0907 (Given - Provider: Sharita Cornejo Nurse) valproate (DEPACON) 500 mg in sodium chloride 0.9 % 100 mL IVPB (COMPLETED) 500 mg, Intravenous, Administer over 60 Minutes, On Maye 07/02/21 at 0445, ONCE, 1 dose 0431 (New Bag - Provider: Talisha Morris, ERIK)0433 (Rate/Dose Verify - Provider: Lakshmi Newton, RN)0442 (Paused - Provider: Lakshmi Newton, RN)0442 (Restarted - Provider: Lakshmi Newton, RN)0443 (Paused - Provider: Lakshmi Newton, RN)0443 (Restarted - Provider: Lakshmi Newton, RN)0443 (Paused - Provider: Lakshmi Newton, RN)0444 (Restarted - Provider: Lakshmi Newton, RN)0459 (Paused - Provider: Lakshmi Newton, RN)0502 (Restarted - Provider: Lakshmi Newton, RN)0503 (Paused - Provider: Lakshmi Newton, RN)0504 (Restarted - Provider: Lakshmi Newton, RN)0506 (Paused - Provider: Lakshmi Newton, RN)0506 (Restarted - Provider: Lakshmi Newton RN)0510 (Paused - Provider: Lakshmi Newton RN)0511 (Restarted - Provider: Lakshmi Newton RN)0514 (Paused - Provider: Lakshmi Newton, RN)0514 (Restarted - Provider: Lakshmi Newton, ERIK)0515 (Paused - Provider: Lakshmi Newton, ERIK)0515 (Restarted - Provider: Lakshmi Newton, RN)0516 (Paused - Provider: Lakshmi Newton, RN)0516 (Restarted - Provider: Lakshmi Newton, RN)0519 (Paused - Provider: Lakshmi Newton, RN)0521 (Restarted - Provider: Lakshmi Newton, RN)0528 (Paused - Provider: Lakshmi Newton, RN)0529 (Restarted - Provider: Lakshmi Newton, RN)0529 (Paused - Provider: Lakshmi Newton, RN)0530 (Restarted - Provider: Lakshmi Newton, RN)0545 (Stopped - Provider: Lakshmi Newton, RN) Continuous Medication Order 07/02/2021 07/03/2021 07/04/2021 lactated ringers infusion Intravenous, at 100 mL/hr, CONTINUOUS, Starting on 06/29/21 at 0745, Until 07/05/21 at 0338 0952 (New Bag - Provider: Lakshmi Newton RN)1325 (Stopped - Provider: Lakshmi Newton RN - Comment: Banna bag infusing) 0654 (New Bag - Provider: Amy Brown RN)1727 (New Bag - Provider: Lakshmi Newton RN) [...] duration of the KCl infusion., Starting on 06/28/21 at 0626, Until 07/05/21 at 0338, Run [...] subsequent to initial labs (refer to the [facility] Electrolyte Replacement Orders) 1 each 1 [...] at 0338 2038 (Given - Provider: Divine Franklin RN) LORazepam (ATIVAN) tablet 2-4 mg(Linked Group 1) [...] RN) 2216 (See Alternative - Provider: Divine Franklin RN) LORazepam injection 2-4 mg(Linked Group 1) 2-4 [...] (See Alternative - Provider: Lakshmi Newton RN) 2215 (See Alternative - Provider: Divine Franklin, ERIK) [...] Dextrose 5% 1113 (Given - Provider: Lakshmi Newton RN) 2215 (Given - Provider: Divine Franklin, ERIK) nicotine [...] Sanz RN)2100 (Not Given - Provider: Eli Lantigua, ERIK - Reason: Other - Comment: retimed)2111 (Given - Provider: Eli Lantigua RN) 0420 (Given - Provider: Eli Lantigua, ERIK)0925 (MAR Hold - Provider: Automatic Transfer Provider - Reason: Patient not available)1000 (Not Given - Provider: Ирина Sanz RN - Reason: Patient not available)1347 (MAR Unhold - Provider: Automatic Transfer Provider)1600 (Not Given - Provider: Ирина Sanz RN - Reason: Patient/family refused)2123 (Given - Provider: Katie Damon RN) 0515 (Given - Provider: Katie Damon RN)0919 (Given - Provider: Rajni Vital, ERIK)1640 (Given - Provider: Rajni Vital RN) aspirin [...] at 2100 2033 (Given - Provider: Eli Lantigua, ERIK) 0925 (MAR Hold - Provider: Automatic Transfer Provider - Reason: Patient not available)1347 (MAR Unhold - Provider: Automatic Transfer Provider)2123 (Given [...] Katie Damon RN)2245 (Stopped - Provider: Katie Damon RN) 0615 (New Bag - Provider: Katie Damon RN)0645 (Stopped - Provider: Katie Damon, RN) divalproex (Depakote) EC tablet 250 mg 250 mg, Oral, 3 times daily, First dose on Tue06/19/24 at 1545, Do not crush, chew, or split. 180 (Given - Provider: Ирина Sanz RN)2033 (Given - Provider: Eli Lantigua RN) 0900 (Not Given - Provider: Ирина Sanz RN - Reason: Patient not available)0925 (MAR Hold - Provider: Automatic Transfer Provider - Reason: Patient not available)1347 ([facility] Unhold - Provider: Automatic Transfer Provider)1421 (Given - Provider: Ирина Sanz RN)2124 (Given - Provider: Katie Damon, RN) 0844 (Given - Provider: Rajni Vital, RN)1319 (Given - Provider: Rajni Vital, ERIK) fenofibrate (Triglide) tablet 160 mg 160 mg, Oral, Daily, First dose on Tue06/19/24 at 1500, Substituted for Fenofibrate (Non-Formulary Dose). 1500 (Not Given - Provider: Ирина Sanz RN - Reason: Contraindicated) 0925 ([facility] Hold - Provider: Automatic Transfer Provider - Reason: Patient not available)1347 ([facility] Unhold - Provider: Automatic Transfer Provider)1420 (Given - Provider: Ирина Sanz RN) 0844 (Given - Provider: Rajni Vital RN) gabapentin (Neurontin) capsule 300 mg 300 mg, Oral, Nightly, First dose on Tue06/19/24 at 2099 2033 (Given - Provider: Eli Lantigua RN) 0925 ([facility] Hold - Provider: Automatic Transfer Provider - Reason: Patient not available)1347 ([facility] Unhold - Provider: Automatic Transfer Provider)212 (Given - Provider: Katie Damon, ERIK) levETIRAcetam (Keppra) tablet 750 mg 750 mg, Oral, 2 times daily, First dose on Tue06/19/24 at 2099 2033 (Given - Provider: Eli Lantigua RN) 0925 ([facility] Hold - Provider: Automatic Transfer Provider - Reason: Patient not available)1347 ([facility] Unhold - Provider: Automatic Transfer Provider)1420 (Given [...] Sanz RN - Reason: Patient/family refused) 0925 ([facility] Hold - Provider: Automatic Transfer Provider - Reason: Patient not available)1345 (Not Given - Provider: Ирина Sanz RN - Reason: Patient/family refused)1347 (MAR Unhold - Provider: Automatic Transfer Provider) 0900 [...] Katie Damon RN)1256 (Given - Provider: Rajni Vital RN) PRN Medication Order 06/19/2024 06/20/2024 06/21/2024 HYDROmorphone [...] Transfer Provider - Reason: Patient not available)1347 ([facility] Unhold - Provider: Automatic Transfer Provider)1418 (See Alternative - Provider: Ирина Sanz RN)2152 (See Alternative - Provider: Katie Damon, ERIK) 0516 (See Alternative - Provider: Katie Damon RN)1253 (See Alternative - Provider: Rajni Vital, ERIK) [...] of each other unless specifically ordered. 0925 ([facility] Hold - Provider: Automatic Transfer Provider - Reason: Patient not available)1347 ([facility] Unhold - Provider: Automatic Transfer Provider)1418 (Given - Provider: Ирина Sanz, RN)2152 (Given - Provider: Katie Damon, RN) 0516 (Given - Provider: Katie Damon, RN)1253 (Given - Provider: Rajni Vital, ERIK) methocarbamol (Robaxin) tablet 1,000 mg 1,000 mg, Oral, Every 8 hours PRN, muscle spasms, Starting on Tue06/19/24 at 1505 0925 ([facility] Hold - Provider: Automatic Transfer Provider - Reason: Patient not available)1347 ([facility] Unhold - Provider: Automatic Transfer Provider) naloxone (Narcan) injection 0.4 mg 0.4 mg, IntraVENous, Every 5 min PRN, opioid reversal, respiratory depression, Starting on Tue06/19/24 at 1319, +++ For RR <10, pinpoint pupils, over sedation for opioid reversal - MUST notify b2b sales professional provider immediately after first dose, may give IM or SQ if no IV access +++ 0925 ([facility] Hold - Provider: Automatic Transfer Provider - Reason: Patient not available)1347 ([facility] Unhold - Provider: Automatic Transfer Provider) ondansetron (Zofran) injection 4 mg(Linked Group 2) 4 mg, IntraVENous, Every 6 hours PRN, nausea, vomiting, Starting on Tue06/19/24 at 1310, 1st Line. Give IV if patient is unable to take orally. If inadequate response within 60 minutes, proceed to next-line agent or contact provider if no further options ordered. 0925 ([facility] Hold - Provider: Automatic Transfer Provider - Reason: Patient not available)1000 (Given - Provider: Jas Hernandez APRN - DENTURE PACKER)1347 ([facility] Unhold - Provider: Automatic Transfer Provider) ondansetron [...] available)1000 (See Alternative - Provider: Jas Hernandez, CRAY FISHING HAND - DENTURE PACKER)1347 ([facility] Unhold - Provider: Automatic Transfer Provider) oxyCODONE (Roxicodone) immediate release tablet 10 mg(Linked Group 3) 10 mg, Oral, Every 4 hours PRN, severe pain (7-10), Starting on Tue06/19/24 at 1314 0925 ([facility] Hold - Provider: Automatic Transfer Provider - Reason: Patient not available)1347 ([facility] Unhold - Provider: Automatic Transfer Provider)2040 (Given - Provider: Katie Damon, ERIK) 0842 (Given - Provider: Rajni Vital, ERIK)1640 (Given - Provider: Rajni Vital RN) oxyCODONE (Roxicodone) immediate release tablet 5 mg(Linked Group 3) 5 mg, Oral, Every 4 hours PRN, moderate pain (4-6), Starting on Tue06/19/24 at 1314 0925 ([facility] Hold - Provider: Automatic Transfer Provider - Reason: Patient not available)1347 ([facility] Unhold - Provider: Automatic Transfer Provider)2040 (See Alternative - Provider: Katie Damon, ERIK) 0842 (See Alternative - Provider: Rajni Vital, ERIK)1640 (See Alternative - Provider: Rajni Vital, EIRK) polyethylene glycol (PEG) 3350 (Miralax) packet 17 g 17 g, Oral, Daily PRN, constipation, Starting on Tue06/19/24 at 1310, 1st line for treatment of constipation - give scheduled if no bowel movement in past 24 hours. 0925 ([facility] Hold - Provider: Automatic Transfer Provider - Reason: Patient not available)1347 ([facility] Unhold - Provider: Automatic Transfer Provider) sodium [...] less into rate field of order. 0925 ([facility] Hold - Provider: Automatic Transfer Provider - Reason: Patient not available)1347 ([facility] Unhold - Provider: Automatic Transfer Provider) sodium [...] or Central Line = 20 mL/lumen 0925 ([facility] Hold - Provider: Automatic Transfer Provider - Reason: Patient not available)1347 ([facility] Unhold - Provider: Automatic Transfer Provider) sterile [...] Care Teams (unrecognized sec tion and content) Latin American Studies Director Relationship Specialty Start Date End Date Hayden Herrera APRN STEEL [employer]TER PCP - General Nurse Practitioner 08/29/17 Latin American Studies Director Relationship Specialty Start Date End Date Hayden Herrera APRN STEEL [employer]TER PCP - General Nurse Practitioner 08/29/17 Latin American Studies Director Relationship Specialty Start Date End Date Jared Forde MD [address] [place] [address] [address] [place] [address] PCP - General Family Medicine 03/23/24 Jared Pabon PA [address] [place] [address] Referring Physician Physician Testboard Operator 03/23/24 Latin American Studies Director Relationship Specialty Start Date End Date Jared Forde MD [address] [place] [address] [address] [place] [address] PCP - General Family Medicine 03/23/24 Jared Pabon PA [address] [place] [address] Referring Physician Physician Testboard Operator 03/23/24 Latin American Studies Director Relationship Specialty Start Date End Date Jared Forde MD [address] [place] [address] [address] [place] [address] PCP - General Family Medicine 03/23/24 Jared Pabon PA [address] [place] [phone] Referring Physician Physician Testboard Operator 03/23/24 Latin American Studies Director Relationship Specialty Start Date End Date Jared Forde MD [address] [place] [address] [address] [place] [address] PCP - General Family Medicine 03/23/24 Jared Pabon PA [address] [place] [phone] Referring Physician Physician Testboard Operator 03/23/24 Latin American Studies Director Relationship Specialty Start Date End Date Jared Forde MD [address] [place] [address] [address] [place] [address] PCP - General Family Medicine 03/23/24 Jared Pabon PA [address] [place] [phone] Referring Physician Physician Testboard Operator 03/23/24 Latin American Studies Director Relationship Specialty Start Date End Date Jared Forde MD [address] [place] [address] [address] [place] [address] PCP - General Family Medicine 03/23/24 Jared Pabon PA [address] [place] [address] Referring Physician Physician Testboard Operator 03/23/24 Latin American Studies Director Relationship Specialty Start Date End Date Jared Forde MD [address] [place] [address] [address] [place] [address] PCP - General Family Medicine 03/23/24 Jared Pabon PA [address] [place] [phone] Referring Physician Physician Testboard Operator 03/23/24 Team Status: Active Member Role Status Dates Dr. Jared Forde MD Primary Care Provider Active Team Status: Inactive Member Role Status Dates Dr. Jared Forde MD Primary Care Provider Active Start: October 05, 2024 End: October 05, 2024 Dr. Jared Forde MD Referring Provider Active Start: October 05, 2024 End: October 05, 2024 Dr. Duarte Infante DO Attending Provider Active S tart: October 05, 2024 End: October 05, 2024 Team Status: Inactive Member Role Status Dates Dr. Jared Forde MD Primary Care Provider Active Start: November 07, 2024 End: November 07, 2024 Dr. Duarte Infante , Attending Provider Active S tart: November 07, 2024 End: November 07, 2024 Dr. Duarte Infante DO Referring Provider Active S tart: November 07, 2024 End: November 07, 2024 Team Status: Inactive Member Role Status Dates Dr. Jared Forde MD Primary Care Provider Active Start: November 20, 2024 End: November 20, 2024 Dr. Jared Forde MD Referring Provider Active Start: November 20, 2024 End: November 20, 2024 Eli Navas TECHNICAL SME, TECHNICAL SME-C Attending Provider Active Start: November 20, 2024 End: November 20, 2024 Team Status: Active Member Role/Relationship Status Dates Dr. Jared Forde MD Primary Care Provider Active Team Status: Inactive Member Role/Relationship Status Dates Dr. Jared Forde MD Primary Care Provider Active Start: October 05, 2024 End: October 05, 2024 Dr. Jared Forde MD Referring Provider Active Start: October 05, 2024 End: October 05, 2024 Dr. Duarte Infante DO Attending Provider Active S tart: October 05, 2024 End: October 05, 2024 Team Status: Inactive Member Role/Relationship Status Dates Dr. Jared Forde MD Primary Care Provider Active Start: November 07, 2024 End: November 07, 2024 Dr. Duarte Infante DO Attending Provider Active S tart: November 07, 2024 End: November 07, 2024 Dr. Duarte Infante DO Referring Provider Active S tart: November 07, 2024 End: November 07, 2024 Team Status: Inactive Member Role/Relationship Status Dates Dr. Jared Forde MD Primary Care Provider Active Start: November 20, 2024 End: November 20, 2024 Dr. Jared Forde MD Referring Provider Active Start: November 20, 2024 End: November 20, 2024 Eli Navas TECHNICAL SME, TECHNICAL SME-C Attending Provider Active Start: November 20, 2024 End: November 20, 2024 Team Status: Inactive Member Role/Relationship Status Dates Dr. Jared Forde MD Primary Care Provider Active Start: January 04, 2025 End: January 04, 2025 Dr. Jared Forde MD Attending Provider Active Start: January 04, 2025 End: January 04, 2025 Dr. Jared Forde MD Referring Provider Active Start: January 04, 2025 End: January 04, 2025 Team Status: Active Member Role/Relationship Status Dates Dr. Jared Forde MD Primary Care Provider Active Start: January 07, 2025 Dr. Jared Forde MD Referring Provider Active Start: January 07, 2025 Dr. Jared Forde MD Other Provider Active Sta rt: January 07, 2025 Dr. Denis Vivar MD Attending Provider Active S tart: January 07, 2025 Team Status: Inactive Member Role/Relationship Status Dates Dr. Jared Forde MD Primary Care Provider Active Start: January 21, 2025 End: January 21, 2025 Dr. Eliseo Munson MD Emergency Provider Active Sta rt: January 21, 2025 End: January 21, 2025 Goals (unrecognized section and content) Goals may be documented in a n alternate sectionGoals may be documented in an alternate sectionGoals may be documented in an alternate sectionGoals may be documented in an alternate section FOR RECORDS PERTAINING TO PATIENTS WHO ARE [...] BE BASED ON THE PRIMARY CLINICAL RECORDS. [facility] [employer] [address] [facility]. provides no warranty or guarantee of the accuracy or completeness of information in this document.
[2025-02-01 03:50] LABS: Platelet Count 116 K/mm3 (150-450)
[2025-02-01 04:25] LABS: Anion Gap 12 (5-15); BUN 21 mg/dL (4-19); BUN/Creat Ratio 23.0 RATIO (10-20); Calcium,Total 9.4 mg/dL (7.6-11.0); Carbon Dioxide 21.0 mmol/L (21.0-32.0); Chloride 105 mmol/L (98-108); Estimated Creatinine Clearance 96.88 ml/min (50-250); Glucose 112 mg/dL (70-99); Magnesium 2.0 mg/dL (1.5-2.2); Potassium 4.4 mmol/L (3.3-5.1); Troponin T High Sensitivity 12 ng/L (<=22)
[2025-02-01 07:02] LABS: Troponin T High Sens 2 HR 11 ng/L (<=22)
== END 2025-02-01 08:03 | disposition home or self-care (01) ==
PROVIDERS: Emergency Provider Emergency Medicine; PCP Family Medicine; Visit Provider Emergency Medicine
DX: J06.9 Acute upper respiratory infection, unspecified (principal); F25.9 Schizoaffective disorder, unspecified; J44.9 Chronic obstructive pulmonary disease, unspecified; G40.909 Epilepsy, unspecified, not intractable, without status epilepticus; R07.89 Other chest pain; I10 Essential (primary) hypertension; I73.9 Peripheral vascular disease, unspecified; E66.9 Obesity, unspecified; E78.5 Hyperlipidemia, unspecified; F41.9 Anxiety disorder, unspecified; F32.A Depression, unspecified; F17.210 Nicotine dependence, cigarettes, uncomplicated; Z23 Encounter for immunization; Z86.73 Personal history of transient ischemic attack (TIA), and cerebral infarction without residual deficits; Z79.02 Long term (current) use of antithrombotics/antiplatelets; Z79.82 Long term (current) use of aspirin; Z79.51 Long term (current) use of inhaled steroids; Z79.899 Other long term (current) drug therapy
CPT/HCPCS: 71046; 80048; 83735; 84484; 85025; 87631; 90471; 93005; 96374; 96375; 96376; 99285; A4216; J2405

== ENCOUNTER → 2025-02-11 | Outpatient (CLI) | payer MEDICARE, MEDICAID, SELFPAY ==
--- NOTE | 2025-02-11 13:55 | CT_ITS ---
PROCEDURE: CHEST WITHOUT CONTRAST 02/11/2025 REASON FOR EXAM: 1.2 CM NODULE RLL IN SMOKER TECHNIQUE: Chest CT without contrast. Coronal and Sagittal reconstruction series were provided. One or more dose reduction techniques were used (e.g., Automated exposure control, adjustment of the mA and/or kV according to patient size, use of iterative reconstruction technique RADIATION DOSE SUMMARY: CTDlvol: 15.03 mGy DLP: 495.9 mGycm COMPARISON: Prior study dated November 07, 2024. FINDINGS: Hardware: None Lymph nodes: Stable small bilateral axillary and mediastinal lymphadenopathy. Heart and Vasculature: The heart is nonenlarged. Atherosclerotic calcification of the aortic arch. Coronary Artery Calcifications: Present Lungs and Airways: Stable 1.4 cm nodule in the posterior segment of the right lower lobe. Stable linear scarring in the anterior aspect of the lingula segment of the left upper lobe. Pleura: No pleural effusion. 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 Bones: Degenerative changes of the thoracic spine. CT/Chest without Contrast IMPRESSION: Coronary artery calcification (CAC) is is present Stable examination. Reading Location: [place] [address]
== END | disposition home or self-care (01) ==
LOC: CT 13:51
PROVIDERS: PCP Family Medicine; Referring Provider Nurse Practitioner Acute Care; Visit Provider Nurse Practitioner Acute Care
DX: R91.1 Solitary pulmonary nodule (principal)
CPT/HCPCS: 71250

== ENCOUNTER → 2025-04-29 | Outpatient (CLI) | payer MEDICARE, MEDICAID, SELFPAY ==
[2025-04-29] VITALS (15 sets, daily range): BP systolic 112–153; BP diastolic 55–93; PULSE 53–66; RESP 13–20; TEMP 36.6; O2SAT 91–97; BMI 35.2
--- NOTE | 2025-04-29 09:52 | CT_ITS ---
PROCEDURE: BIOPSY/INJ OR NEEDLE PLACEMENT 04/29/2025 REASON FOR EXAM: ENLARGING NODULE RLL TECHNIQUE: Procedure Code: CTBX Modality: CT Procedure: BIOPSY/INJ OR NEEDLE PLACEMENT CT-guided lung biopsy. The procedure as well as the benefits and possible complications including infection, bleeding and pneumothorax were explained to the patient. Informed consent was obtained. The patient was in the prone position. The overlying skin was prepped and draped in the usual sterile fashion. Conscious sedation was performed. The patient received 2 mg of Versed and 50 mcg of fentanyl intravenously. Conscious sedation was started at 10:58 a.m. and terminated at 11:20 a.m.. The patient was independently monitored by the department nurse. Following local anesthetic application, a 20 gauge core biopsy needle was placed into the nodule in the posterior right lower lobe. 4 cores were obtained. The pathologist deemed them adequate. The patient tolerated the procedure well. RADIATION DOSE SUMMARY: CTDlvol: 25.73 mGy DLP: 740.35 mGycm COMPARISON: Prior CT scan dated January 04, 2025. FINDINGS: CHEST: Successful CT-guided biopsy of the nodule in the posterior right lower lobe. CT/Biopsy/Inj or Needle Placement IMPRESSION: Successful CT-guided biopsy of the nodule in the posterior aspect of the right lower lobe. The patient tolerated the procedure well. No immediate complication noted. Reading Location: [place] [address]
[2025-04-29 10:11] LABS: Platelet Count 318 K/mm3 (150-450)
[2025-04-29 10:26] LABS: Prothrombin Time (Protime)PT. 13.9 SECONDS (11.7-14.9)
[2025-04-29 10:27] LABS: Partial Thromboplast Time 30.8 Seconds (24.1-36.2)
[2025-04-29] MEDS: 0.9% Normal Saline (250mL Bag) 250 ML 15 ML IV (10:57)
[2025-04-29] MEDS: Midazolam 2 MG/2 ML Syringe IV (10:58)
[2025-04-29] MEDS: fentaNYL 100 MCG/2 ML Ampul IV (11:00)
[2025-04-29] MEDS: Lidocaine 2% (20 ml mdv) 20 ML Vial INFILT (11:10)
--- NOTE | 2025-04-29 11:15 | ASPIGT_PTH ---
PATIENT: AMANDEEP FERNANDEZ LOC: CT U#:[id number] AGE/SX: 49/M ROOM: RE04/29/[address]: PAULA Martínez : 1975 BED: DIS: 04/29/2025 SPEC #: [id number] RECD: 04/29/25 11:30 STATUS: SWETHA GIA #: [id number] EDD: 04/29/25 11:[address]: Eli Navas NP DEPT: SURGICAL PATHOLOGY RECD BY: Satnam Beckham ENTERED: 04/29/25 11:57 SP TYPE: ASP RAD OTHR DR: Dr. All Ryder MD Tissues: A - Lung, NOS Procedures: FNA Specimen Adequacy Trichrome (control) Special Stain Group II Special Stain Group I Surgery Specimen Level V Retic (control) Iron Stain (control) Imprint (control) HEADER OPERATION: CT guided lung biopsy PRE-OP DIAGNOSIS: Right lower lobe nodule TISSUE SUBMITTED: A- Right lower lobe biopsy MICROSCOPIC DIAGNOSIS A. Lung, lower, right, CT-guided core biopsy: - Liver parenchyma with portal chronic inflammation and focal bile duct proliferation. - No pulmonary parenchyma is observed in these sections. - This case will be sent to [facility] for expert consultation (GI pathology division); a separate report will follow. COMMENT The specimen is evaluated at the time of biopsy by Dr. Au. Immediate Evaluation = 1. Adequate. 2. Adequate. MICROSCOPIC DESCRIPTION Slides are reviewed. GROSS DESCRIPTION A. Received in formalin labeled with the patient's name and date of are multiple canela-red wispy tissue core fragments, 0.1 by less than 0.1 cm to 0.7 x 0.1 cm. Touch preparations are made. Entirely submitted in 2 cassettes. [place] 04/29/2025 CPT:[id number] ADDENDUM ADDENDUM ADDENDUM ADDENDUM ADDENDUM ADDENDUM ADDENDUM ADDENDUM ADDENDUM ADDENDUM ADDENDUM ADDENDUM ADDENDUM ADDENDUM ADDENDUM ADDENDUM 05/09/2025 12:42 ADDENDUM 05/09/2025 12:42 ADDENDUM 05/09/2025 12:42 ADDENDUM 05/09/2025 12:42 ADDENDUM 05/09/2025 12:42 This addendum is added to incorporate an outside pathology consultation report. The case was examined at [facility] by Dr. Bach (#[id number]) and the following diagnosis was rendered. A. Liver, labled as lung, right, CT- guided core, biopsy: Minute fragments of liver tissue with focal increased fibrosis, see comment. Trichrome stain highlights fibrosis. Reticulin stain shows no decreased reticulin fibers. Iron stain is negative. PAS with diastase is negative for intracytoplasmic globules. Comment: The biopsy material is suboptimal to evaluate for liver disease and staging. Please see complete above mentioned consultation report in EMR
--- NOTE | 2025-04-29 11:20 | RAD_ITS ---
PROCEDURE: CHEST INSP/EXP 2 VIEW 04/29/2025 REASON FOR EXAM: EVAL FOR PNEUMOTHORAX TECHNIQUE: Procedure Code: RADCXRINSPEXP Modality: DX Procedure: CHEST INSP/EXP 2 VIEW Inspiration expiration views were obtained immediately following the right CT- guided lung biopsy. COMPARISON: Prior study dated February 01, 2025. FINDINGS: No evidence of right-sided pneumothorax following the right CT-guided lung biopsy. RAD/Chest Insp/Exp 2 View IMPRESSION: No evidence of pneumothorax on the immediate post right lung biopsy radiographs . Reading Location: [place] [address]
--- NOTE | 2025-04-29 13:25 | RAD_ITS ---
PROCEDURE: CHEST INSP/EXP 2 VIEW 04/29/2025 REASON FOR EXAM: EVAL FOR PNEUMOTHORAX 2 hour post right lung biopsy radiographs. TECHNIQUE: Procedure Code: RADCXRINSPEXP Modality: DX Procedure: CHEST INSP/EXP 2 VIEW AP inspiration expiration views were obtained. COMPARISON: Prior study done earlier in the day. FINDINGS: No evidence of pneumothorax on the 2 hour post right lung biopsy radiographs. RAD/Chest Insp/Exp 2 View IMPRESSION: No evidence of pneumothorax on the 2 hour post right lung biopsy radiographs. Reading Location: [place] [address]
--- NOTE | 2025-04-29 16:39 | CASEMGMT ---
Social Work - Guardianship Status Collaboration RN Staci regarding this patient who is reported to have a guardian. Staci had several names, provided by the jail where patient [facility]. Received letter of guardianship from guardian leather goods sales representative, Sandro Fountain, who oversees the jail guardianship program through [facility]. Copy sent to HIM for scanning into the medical records. Updated special indicator in the EMR and also demographics to reflect guardianship in place for this patient. Sandro's cell is [phone]. No other services requested or indicated. -JOSÉ ANTONIO Harris
== END | disposition home or self-care (01) ==
PROVIDERS: PCP Family Medicine; Referring Provider Nurse Practitioner Acute Care; Visit Provider Nurse Practitioner Acute Care
DX: R91.1 Solitary pulmonary nodule (principal); F25.0 Schizoaffective disorder, bipolar type; J44.9 Chronic obstructive pulmonary disease, unspecified; I48.91 Unspecified atrial fibrillation; G40.909 Epilepsy, unspecified, not intractable, without status epilepticus; I10 Essential (primary) hypertension; I73.9 Peripheral vascular disease, unspecified; F41.9 Anxiety disorder, unspecified; E78.5 Hyperlipidemia, unspecified; F17.210 Nicotine dependence, cigarettes, uncomplicated; Z79.02 Long term (current) use of antithrombotics/antiplatelets; Z79.82 Long term (current) use of aspirin; Z86.73 Personal history of transient ischemic attack (TIA), and cerebral infarction without residual deficits; Z79.899 Other long term (current) drug therapy
CPT/HCPCS: 32408; 36415; 71046; 77012; 85049; 85610; 85730; 88172; 88307; 88312; 88313; 99156